=== PATIENT | male | born 1955 | race Caucasian/White ===

== ENCOUNTER 2017-08-31 19:02 | Emergency (ER) | payer MEDICARE ==
[~2017-08-31] VITALS: Ht 188 cm; Wt 86.2 kg
[~2017-08-31 19:02] MED LIST: AMLO10TA82 PO; AMLO2.5T; AMLO5TAB2 PO; ASP81CT PO; ASP81TEC PO; BACL20TA PO; BCL10T PO; CITA10SO PO; CITA10TA70 PO; CLOP75TA PO; CLPD75T PO; CYCL10TA9 PO; DIAZ10TA; GABA300C PO; GBPN300C PO; HTN MED; HYDR-1231 PO; IBP800T PO; IBUP400T22 PO; IBUP800T26 PO; IPRA4AER INH; ISM30TCR PO; ISM60TCR PO; ISOS10TA8 PO; ISOS30TA3 PO; LISI40TA PO; METH4TAB PO; METO25TA PO; METO25TA2 PO; MORP15TA PO; NAPR550T PO; NORT50CA PO; NRT25C PO; OXYC-309 PO; PENI500T PO; PNT40TEC PO; PRAV10TA23 PO; PRD20T PO; PRV20T PO; RAMI10TA PO; RT-COMBINH IH; SULF-222 PO; TRAM50TA2; TRAM50TA2 PO
[2017-08-31] MEDS ORDERED: HYDROcodone/APAP 5 MG/325 MG (LORTAB) TAB PO ONE (19:15)
[2017-08-31] MEDS ORDERED: LIDOCAINE 2% 20 ML (XYLOCAINE) VIAL INJ ONE (19:15)
[2017-08-31] MEDS ORDERED: TRIM/SULFAMETH 160/800 (SEPTRA DS) TAB PO ONE (19:15)
[2017-08-31] MEDS ORDERED: SULF1TAB35 PO (19:23)
--- NOTE | 2017-08-31 19:24 | ED Upper Extremity ---
General Chief Complaint: Upper Extremity Stated Complaint: R ARM/ARMPIT PAIN Source: patient Exam Limitations: no limitations History of Present Illness Date Seen by Provider: Aug 31, 2017 Time Seen by Provider: 19:20 Initial Comments To ER with c/o right armpit pain x 2 days. no fevers or chills. Onset: other (left axilla) Severity: moderate Method of Injury: unknown Allergies and Home Medications Allergies Coded Allergies: NKANo Known Allergies (Unverified Allergy, Mild, 06/03/08) Home Medications Amlodipine Besylate 5 Mg Tab, 5 MG PO DAILY Prescribed by: BRIE CURRAN on 07/31/13 0852 Aspirin 81 Mg Tabec, 81 MG PO DAILY Prescribed by: DEMETRIO ALVAREZ on 07/18/13 0800 Baclofen 10 Mg Tab, 5 MG PO BID, (Reported) TAKES 1/2 (10MG) TABLET TWICE DAILY Citalopram Hydrobromide 10 Mg Tablet, 10 MG PO DAILY, (Reported) Clopidogrel Bisulfate 75 Mg Tab, 75 MG PO DAILY Prescribed by: PAWEL GUILLEN on 07/21/13 1254 Gabapentin 300 Mg Cap, 900 MG PO TID Prescribed by: DEMETRIO ALVAERZ on 07/18/13 0759 Hydrocodone Bit/Acetaminophen 1 Tab Tablet, 1-2 TAB PO Q6H PRN for PAIN Prescribed by: SONIA CRISTOBAL on 09/07/13 1544 Ibuprofen 800 Mg Tablet, 800 MG PO TID PRN for PAIN, (Reported) NEEDED FOR PAIN Ipratropium/Albuterol Sulfate 14.7 Gm Aer.w.adap, 1 PUFF IH QID, (Reported) Isosorbide Mononitrate 60 Mg Tab, 60 MG PO DAILY@0630 Prescribed by: BRIE CURRAN on 07/31/13 0852 Lisinopril 40 Mg Tablet, 40 MG PO DAILY, (Reported) Metoprolol Tartrate 25 Mg Tablet, 12.5 MG PO BID, (Reported) TAKES 1/2 (25MG) TABLET TWICE DAILY Nortriptyline Hcl 25 Mg Cap, 100 MG PO HS Prescribed by: DEMETRIO ALVAREZ on 07/18/13 0800 Pravastatin Sodium 20 Mg Tablet, 20 MG PO HS, (Reported) Prednisone 20 Mg Tab, 40 MG PO DAILY Prescribed by: SONIA CRISTOBAL on 09/07/13 1544 Sulfamethoxazole/Trimethoprim 1 Each Tablet, 1 EACH PO BID Prescribed by: SONIA CRISTOBAL on 08/31/17 192 Trimethoprim/Sulfamethoxazole 1 Ea Tablet, 1 EA PO BID WITH MEALS Prescribed by: PAWEL GUILLEN on 07/21/13 1254 Patient Home Medication List Home Medication List Reviewed: Yes Constitutional: see HPI Respiratory: no symptoms reported Cardiovascular: no symptoms reported Genitourinary: no symptoms reported Musculoskeletal: no symptoms reported Skin: see HPI Psychiatric/Neurological: No Symptoms Reported Past Qkhsjui-Maxeja-Ytiuwh Hx Patient Social History Recent Foreign Travel: No Contact w/Someone Who Travel: No Immunizations Up To Date Tetanus Booster (TDap): More than 5yrs Date of Pneumonia Vaccine: June 20, 2013 Past Medical History COPD Reproductive Disorders: No Hepatitis Degenerate Disk Disease, Arthritis Loss of Vision: Denies Hearing Impairment: Hard of Hearing Skin Anxiety, Violent Behavior, Depression Recent Skin Changes Adverse Reaction/Blood Tranf: No Family Medical History Cancer 19 FATHER (SKIN) 19 MOTHER Cancer of colon 19 MOTHER Kidney disease 19 FATHER (PASSED KIDNEY FAILURE) Physical Exam Vital Signs Vital Signs - First Documented 08/31/17 19:09 Temp 98.6 Pulse 73 Resp 18 B/P (MAP) 120/95 (103) Pulse Ox 97 Capillary Refill : Height, Weight, BMI Height: 6'1" Weight: 178lbs. 3.2oz. [id number]; BMI Method:Stated General Appearance: WD/WN, no apparent distress HEENT: PERRL/EOMI, normal ENT inspection Neck: non-tender, full range of motion Respiratory: no respiratory distress, no accessory muscle use Gastrointestinal: normal bowel sounds, non tender Shoulder: swelling (1cm erythematous fluctuant abscess to right axilla without cellulitis) Elbow/Forearm: normal inspection, non-tender Wrist: Yes normal inspection, Yes non-tender Hand: normal inspection, non-tender Neurologic/Psychiatric: alert, normal mood/affect, oriented x 3 Skin: normal color, warm/dry Procedures/Interventions I&D : Blade Size: 11 I & D Procedure: betadine prep Progress area anesthetized with 1ml of lidocaine without epinephrine. Opened with 11blade scalpel, drainage cultured and sent to lab, covered with gauze. Progress/Results/Core Measures Results/Orders My Orders Departure Impression Primary Impression: Abscess of axilla, right Disposition: 01 HOME, SELF-CARE Condition: Stable Departure-Patient Inst. Decision time for Depature: 19:22 Referrals: NO,LOCAL PHYSICIAN (PCP/Family) Primary Care Physician Patient Instructions: Abscess Incision and Drainage Add. Discharge Instructions: 1. Warm compresses to this area. 2. Antibiotics as directd 3. REturn to ER for any concerns 3. See your doctor later this week All discharge instructions reviewed with patient and/or family. Voiced understanding. Scripts Sulfamethoxazole/Trimethoprim (Bactrim Ds Tablet) 1 Each Tablet 1 EACH PO BID, #14 TAB Prov: SONIA CRISTOBAL APRN 08/31/17 SONIA CRISTOBAL APRN Aug 31, 2017 19:24
[2017-08-31 19:45] VITALS: BP 120/95
--- OUTSIDE RECORDS SUMMARY | 2017-08-31 21:21 | XMS REPORT | Referral Summary ---
Author Author [facility] Organization [facility] Address Unknown Phone Unavailable Care Team Providers Care [employer] Name Role Phone Vanessa Roman PCP Encounter VC Date(s): 10/02/15 - 10/05/15 [facility] [address] [place] [address] [phone] Discharge Disposition: 01-Home or Self Care Attending Physician: Regina Brewster MD Admitting Physician: Cindy Berg MD Vital Signs Most recent to 1 2 oldest [Reference Range]: Temperature Oral 36.9 degC [35.8-37.3 degC] (10/05/15 11:53 AM) Peripheral Pulse 80 bpm Rate [60-100 bpm] (10/05/15 11:53 AM) Heart Rate Monitored 60 bpm [60-100 bpm] (10/03/15 4:57 AM) Respiratory Rate 18 br/min [14-20 br/min] (10/05/15 11:53 AM) Blood Pressure 120/78 mmHg [90-140/60-90 mmHg] (10/05/15 11:53 AM) Mean Arterial 123 mmHg 123 mmHg Pressure, Cuff (10/03/15 3:30 AM) (10/03/15 3:30 AM) SpO2 94 % (10/05/15 11:53 AM) Remote Telemetry Ongoing (10/05/15 9:36 AM) Problem List Condition Effective Dates Status Health Status Informant Acute Active pain(Confirmed) At risk of pressure Active sore(Confirmed) Degenerative disc Active patient disease, lumbar(Confirmed) HTN Active patient (hypertension)(Confi rmed) Neuropathic Active patient pain(Confirmed) Tissue perfusion Active alteration(Confirmed )1 1Problem added automatically by system based on initiation of Tissue Perfusion Cerebral Plan of Care Allergies, Adverse Reactions, Alerts No Known Allergies Medications amLODIPine 10 mg oral tablet 10 mg 1 tabs, Oral, Daily, # 30 tabs, 0 Refill(s) Start Date: 10/05/15 Stop Date: 11/04/15 Status: Ordered Aspirin Enteric Coated 81 mg, Oral, Daily, 0 Refill(s) Start Date: 10/03/15 Status: Ordered atorvastatin 40 mg, Oral, Bedtime (once a day), 0 Refill(s) Start Date: 10/02/15 Status: Ordered carvedilol 6.25 mg oral tablet 3.125 mg 0.5 tabs, Oral, BID, 0 Refill(s) Start Date: 10/02/15 Status: Ordered gabapentin 900 mg, Oral, TID, 0 Refill(s) Start Date: 10/02/15 Status: Ordered Plavix 75 mg, Oral, Daily, 0 Refill(s) Start Date: 10/02/15 Status: Ordered spironolactone 50 mg, Oral, Daily, 0 Refill(s) Start Date: 10/02/15 Status: Ordered Results Hematology Most recent to 1 oldest [Reference Range]: WBC [4.8-10.8 10.8 10*3/uL 10*3/uL] (10/04/15 4:53 AM) RBC [4.60-6.20] 4.69 (10/04/15 4:53 AM) Hgb [14.0-18.0 14.1 gm/dL gm/dL] (10/04/15 4:53 AM) Hct [42.0-52.0 %] 41.9 % *LOW* (10/04/15 4:53 AM) MCV [82.0-99.0 fL] 89.3 fL (10/04/15 4:53 AM) MCH [27.0-32.0 pg] 30.1 pg (10/04/15 4:53 AM) MCHC [32.0-36.0 33.7 gm/dL gm/dL] (10/04/15 4:53 AM) RDW [11.5-14.5 %] 13.4 % (10/04/15 4:53 AM) Platelet [150-400 185 10*3/uL 10*3/uL] (10/04/15 4:53 AM) MPV [9.4-12.3 fL] 11.0 fL (10/04/15 4:53 AM) Immature 0.2 % Granulocytes (10/04/15 4:53 AM) [0.0-1.0 %] Neutrophils [51-75 57 % %] (10/04/15 4:53 AM) Lymphocytes [20-46 31 % %] (10/04/15 4:53 AM) Monocytes [4-11 %] 9 % (10/04/15 4:53 AM) Eosinophils [0-4 %] 3 % (10/04/15 4:53 AM) Basophils [0-2 %] 1 % (10/04/15 4:53 AM) Neutro Absolute 6.14 10*3 [1.90-7.00 10*3] (10/04/15 4:53 AM) Lymph Absolute 3.33 10*3 [0.80-3.30 10*3] *HI* (10/04/15 4:53 AM) Tripp Absolute 0.93 10*3 [0.30-1.00 10*3] (10/04/15 4:53 AM) Eos Absolute 0.31 10*3 [0.00-0.50 10*3] (10/04/15 4:53 AM) Baso Absolute 0.07 10*3 [0.00-0.20 10*3] (10/04/15 4:53 AM) Nucleated RBC 0.0 /100 WBC Automated [0 /100 (10/04/15 4:53 AM) WBC] Chemistry Most recent to 1 oldest [Reference Range]: Sodium Lvl [136-144 139 mEq/L mEq/L] (10/04/15 4:53 AM) Potassium Lvl 3.3 mEq/L [3.6-5.1 mEq/L] *LOW* (10/04/15 4:53 AM) Chloride [99-109 106 mEq/L mEq/L] (10/04/15 4:53 AM) CO2 [22-32 mEq/L] 25 mEq/L (10/04/15 4:53 AM) AGAP [3-20] 8 (10/04/15 4:53 AM) BUN [4-20 mg/dL] 13 mg/dL (10/04/15 4:53 AM) Glucose Lvl [70-100 106 mg/dL mg/dL] *HI* (10/04/15 4:53 AM) Creatinine Lvl 0.93 mg/dL [0.64-1.27 mg/dL] (10/04/15 4:53 AM) eGFR [>60] >60 1 (10/04/15 4:53 AM) Calcium Lvl 9.1 mg/dL [8.6-10.0 mg/dL] (10/04/15 4:53 AM) Albumin Lvl [3.5-4.8 3.3 gm/dL gm/dL] *LOW* (10/02/15 10:27 PM) Total Protein 6.2 gm/dL [6.1-7.9 gm/dL] (10/02/15 10:27 PM) Globulin [1.9-4.3 2.9 gm/dL gm/dL] (10/02/15 10:27 PM) ALT [17-63 U/L] 19 U/L (10/02/15 10:27 PM) AST [15-41 U/L] 18 U/L (10/02/15 10:27 PM) Alk Phos [26-104 64 U/L U/L] (10/02/15 10:27 PM) Bili Total [0.2-1.2 0.7 mg/dL 2 mg/dL] (10/02/15 10:27 PM) Magnesium Lvl 1.9 mg/dL [1.8-2.5 mg/dL] (10/04/15 4:53 AM) Phosphorus [2.4-4.7 3.5 mg/dL 3 mg/dL] (10/04/15 4:53 AM) Total CK [49-397 128 U/L U/L] (10/02/15 10:27 PM) Troponin [<0.06 <0.05 ng/mL ng/mL] (10/02/15 10:27 PM) Chol [0-200 mg/dL] 103 mg/dL (10/04/15 4:53 AM) Trig [0-150 mg/dL] 115 mg/dL (10/04/15 4:53 AM) HDL [>40 mg/dL] 36 mg/dL *ABN* (10/04/15 4:53 AM) LDL [0-100 mg/dL] 44 mg/dL (10/04/15 4:53 AM) VLDL Cholesterol 23 mg/dL [0-30 mg/dL] (10/04/15 4:53 AM) Cardiac Risk 2.9 [0.0-5.7] (10/04/15 4:53 AM) 1Result Comment: Multiply eGFR results by 1.21 for race. 2Result Comment: Naproxen, specifically the metabolite O-desmethylnaproxen, may cause spurious elevation in Total Bilirubin levels. 3Result Comment: High dosages of liposomal Amphotericin B (AmBisome) therapy or other drug preparations that use a liposomal envelope to facilitate drug delivery may cause falsely elevated results for phosphorus. Toxicology Most recent to 1 oldest [Reference Range]: U Amphetamine Scrn Positive *ABN* (10/02/15 10:33 PM) U Cocaine Scrn Negative (10/02/15 10:33 PM) U Cannab Scrn Positive *ABN* (10/02/15 10:33 PM) U Opiate Scrn Negative (10/02/15 10:33 PM) U PCP Scrn Negative (10/02/15 10:33 PM) U Benzodiazepine Negative Scrn (10/02/15 10:33 PM) U Barbiturate Scrn Negative (10/02/15 10:33 PM) Methadone Lvl Negative (10/02/15 10:33 PM) Tricyclics Not Detected 1 (10/02/15 10:33 PM) 1Result Comment: Cut-off concentrations: Amphetamines: 1000 ng/mL Cocaine: 300 ng/mL Cannabinoid: 50 ng/mL Opiate: 300 ng/mL Phencyclidine (PCP): 25 ng/mL Benzodiazepine: 200 ng/mL Barbiturate: 200 ng/mL Methadone: 300 ng/mL Tricyclic: 300 ng/mL The urine drug screen assays are qualitative screens. A more specific GC/MS method must be performed to obtain a confirmed analytical result. Unconfirmed screening results must not be used for non-medical purposes(e.g. employment or legal testing) Urinalysis Most recent to 1 oldest [Reference Range]: UA Color Lindy *ABN* (10/02/15 10:27 PM) UA Appear Cloudy *ABN* (10/02/15 10:27 PM) UA pH [5.0-8.0] 7.0 (10/02/15 10:27 PM) UA Leuk Est Negative [Negative] (10/02/15 10:27 PM) UA Nitrite Negative [Negative] (10/02/15 10:27 PM) UA Protein Negative [Negative] (10/02/15 10:27 PM) UA Glucose Negative [Negative] (10/02/15 10:27 PM) UA Ketones Negative [Negative] (10/02/15 10:27 PM) UA Urobilinogen >=4.0 mg/dL [<1.0 mg/dL] (10/02/15 10:27 PM) UA Bili [Negative] Positive *ABN* (10/02/15 10:27 PM) UA Blood [Negative] Pos 1+ *ABN* (10/02/15 10:27 PM) UA Spec Grav 1.030 [1.003-1.030] (10/02/15 10:27 PM) Type Clean Catch (10/02/15 10:27 PM) UA WBC [0-4] 0-2 (10/02/15 10:27 PM) UA RBC [0-2] 5-10 *ABN* (10/02/15 10:27 PM) Crystals Amorphous (10/02/15 10:27 PM) UA Mucous Present (10/02/15 10:27 PM) Immunizations No data available for this section Procedures Procedure Date Related Diagnosis Body Site Appendectomy Neck repair Stent placement Social History Social History Type Response Smoking Status Current every day smoker; Type: Cigarettes Assessment and Plan No data available for this section
--- OUTSIDE RECORDS SUMMARY | 2017-08-31 21:22 | XMS REPORT | Continuity of Care Document ---
Author Author [facility] Organization [facility] Address Unknown Phone Unavailable Allergies Active Description Code Type Severity Reaction Onset Reported/Identified Relationship to Patient Clinical Status Yes NO KNOWN DRUG ALLERGIES UNKNOWN NO KNOWN DRUG ALLERG Yes NKANo Known Allergies NKA Miscellaneous Allergy Mild N/A 06/03/2008 Yes No Known Allergies NKMA N/A N/A 10/02/2015 Medications Medication Packaging Start Date Stop Date Route Dosage Sig spironolactone(spironolactone) Oral 50 mg 50 mg, Oral, Daily, 0 Refill(s) gabapentin(gabapentin) 2015 Oral 900 mg 900 mg, Oral, TID, 0 Refill(s) carvedilol(carvedilol 6.25 mg oral tablet) 0.5 tabs 10/02/2015 Oral 3.125 mg 3.125 mg=0.5 tabs, Oral, BID, 0 Refill(s) atorvastatin(atorvastatin) 2015 Oral 40 mg 40 mg , Oral, Bedtime (once a day), 0 Refill(s) clopidogrel(Plavix) 10/02/2015 Oral 75 mg 75 mg, Oral , Daily, 0 Refill(s) Sodium Chloride 0.9%(Sodium Chloride 0.9% Bolus) 1,000 mL 10/03/2015 10/03/2015 Bolus IV 1,000 mL, Bolus IV, Once ondansetron(Zofran) 2 mL 201510/05/2015 IV Push 4 mg 4 mg=2 mL, IV Push, q6hr, PRN: Nausea glucagon(glucagon) 1 mL 10/03/2015 10/05/2015 IntraMuscular 1 mg 1 mg=1 mL, IntraMuscular, As Indicated, PRN: Hypoglycemia/Low Blood Sugar Sodium Chloride 0.9%(sodium chloride 0.9% 1,000 mL) 1,000 mL 10/03/2015 10/04/2015 IV 80 mL/hr, IV Dextrose 50% in Water(Dextrose 50% in Water Injection) 25 mL 10/03/2015 10/05/2015 IV Push 12.5 g 12.5 g=25 mL, IV Push, q15min, PRN: Hypoglycemia/Low Blood Sugar Dextrose 10% in Water(Dextrose 10% in Water 250 mL) 250 mL 10/03/2015 10/05/2015 IV 50 mL/hr, IV acetaminophen(acetaminophen) 2 tabs 10/03/2015 10/05/2015 Oral 650 mg 650 mg=2 tabs, Oral, q4hr, PRN: Other (See Comment) docusate-senna(Senokot S 50 mg-8.6 mg oral tablet) 1 tabs 10/03/2015 10/05/2015 Oral 1 tabs, Oral, Daily, PRN: Constipation enoxaparin(Lovenox) 0.4 mL 201510/05/2015 SubCutaneous 40 mg 40 mg=0.4 mL, SubCutaneous, Daily atorvastatin(Lipitor) 1 tabs 201510/05/2015 Oral 80 mg 80 mg=1 tabs, Oral, Bedtime (once a day) aspirin(aspirin) 1 tabs 10/03/2015 10/05/2015 Oral 325 mg 325 mg=1 tabs, Oral, Daily folic acid(folic acid) 1 tabs 10/0210/05/2015 Oral 1 mg 1 mg=1 tabs, Oral, Daily thiamine(thiamine) 1 mL 10/03/2015 10/05/2015 IV Push 100 mg 100 mg=1 mL, IV Push, Daily carvedilol(carvedilol) 1 tabs 10/0210/05/2015 Oral 3.125 mg 3.125 mg=1 tabs, Oral, BIDWM clopidogrel(Plavix) 1 tabs 201510/05/2015 Oral 75 mg 75 mg=1 tabs, Oral, Daily amLODIPine(amLODIPine) 1 tabs 10/0310/05/2015 Oral 10 mg 10 mg=1 tabs, Oral, Daily hydrALAZINE(hydrALAZINE) 1 tabs 10/04/2015 Oral 10 mg 10 mg=1 tabs, Oral, q4hr (scheduled) hydrALAZINE(hydrALAZINE) 0.5 mL 10/05/2015 IV Push 10 mg 10 mg=0.5 mL, IV Push, q4hr, PRN: Hypertension/High Blood Pressure potassium chloride(potassium chloride 20 mEq oral tablet, extended release) 2 tabs 10/04/20152015 Oral 40 mEq 40 mEq=2 tabs, Oral, QID spironolactone(spironolactone) 2 tabs 10/04/2015 10/05/2015 Oral 50 mg 50 mg=2 tabs, Oral, Bedtime (once a day) gabapentin(gabapentin) 3 caps 10/0310/05/2015 Oral 900 mg 900 mg=3 caps, Oral, TID nicotine(nicotine 21 mg/24 hr transdermal film, extended release) 1 patches 10/04/2015 10/05/2015 TransDermal 1 patches, TransDermal, Daily, PRN: Agitation amLODIPine(amLODIPine 10 mg oral tablet) 1 tabs 10/05/2015 11/04/2015 Oral 10 mg 10 mg=1 tabs, Oral, Daily, for 30 days, 30 tabs, 0 Refill(s) CLINDAMYCIN CAP 150 MG (CLEOCIN) MG 06/20/2017 06/20/2017 [id number]&[id number] Problems Date Dx Coded Attending Type Code Diagnosis Diagnosed By 06/25/2009 Ot V58.32 11/26/2010 Ot 724.2 11/26/2010 Ot 724.3 11/26/2010 Ot V45.89 07/27/2012 SAMARA BARRAGAN FACC, JUANITA FACP CCDS Ot 070.70 UNSPECIFIED VIRAL HEPATITIS C WITHOUT HE 07/27/2012 SAMARA BARRAGAN FACC, JUANITA FACP CCDS Ot 305.03 ALCOHOL ABUSE-IN REMISS 07/27/2012 JUANITA PASCUAL MD, FACC FACP CCDS Ot 305.1 TOBACCO USE DISORDER 07/27/2012 SAMARA BARRAGAN FACC, JUANITA FACP CCDS Ot 401.9 HYPERTENSION NOS 07/27/2012 SAMARA BARRAGAN FACC, JUANITA FACP CCDS Ot 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,IN 07/27/2012 JUANITA PASCUAL MD, FACC FACP CCDS Ot 414.01 CORONARY ATHEROSCLEROSIS OF [place] CORON 07/27/2012 JUANITA PASCUAL MD, FACC FACP CCDS Ot V58.69 OTH MED,LT,CURRENT USE 07/28/2012 HAILY EUGENE MD Ot 998.12 HEMATOMA COMPLIC A PROC 01/29/2013 TRISTAN QUICK DO Yolanda Ot 719.45 JOINT PAIN-PELVIS 07/18/2013 DEMETRIO ALVAREZ MD Ot 070.70 UNSPECIFIED VIRAL HEPATITIS C WITHOUT HE 07/18/2013 DEMETRIO ALVAREZ MD Ot 272.4 HYPERLIPIDEMIA NEC/NOS 07/18/2013 DEMETRIO ALVAREZ MD Ot 305.03 ALCOHOL ABUSE-IN REMISS 07/18/2013 DEMETRIO ALVAREZ MD Ot 305.1 TOBACCO USE DISORDER 07/18/2013 DEMETRIO ALVAREZ MD Ot 401.9 HYPERTENSION NOS 07/18/2013 DEMETRIO ALVAREZ MD Ot 411.1 INTERMED CORONARY SYND 07/18/2013 DEMETRIO ALVAREZ MD Ot 414.01 CORONARY ATHEROSCLEROSIS OF [place] CORON 07/18/2013 DEMETRIO ALVAREZ MD Ot V45.82 PERCUTANEOUS TRANSLUM CORON ANGIOPLASTY 07/18/2013 DEMETRIO ALVAREZ MD Ot V58.63 LONG-TERM(CURRENT)USE OF ANTIPLATELET/AN 07/18/2013 DEMETRIO ALVAREZ MD Ot V58.69 OT MED,LT,CURRENT USE 07/21/2013 SAMARA BARRAGAN FACC, JUANITA URRUTIAP CCDS Ot 070.70 UNSPECIFIED VIRAL HEPATITIS C WITHOUT HE 07/21/2013 SAMARA BARRAGAN FACC, JUANITA FACP CCDS Ot 272.0 PURE HYPERCHOLESTEROLEM 07/21/2013 JUANITA PASCUAL MD, FACC FACP CCDS Ot 272.4 HYPERLIPIDEMIA NEC/NOS 07/21/2013 SAMARA BARRAGAN FACC, JUANITA FACP CCDS Ot 288.60 LEUKOCYTOSIS, UNSPECIFIED 07/21/2013 SAMARA BARRAGAN FACC, ALI FACP CCDS Ot 305.1 TOBACCO USE DISORDER 07/21/2013 JUANITA PASCUAL MD, FACC FACP CCDS Ot 355.9 MONONEURITIS NOS 07/21/2013 SAMARA BARRAGAN FACC, JUANITA FACP CCDS Ot 401.9 HYPERTENSION NOS 07/21/2013 SAMARA BARRAGAN FACC, ALI FACP CCDS Ot 412 OLD MYOCARDIAL INFARCT 07/21/2013 SAMARA BARRAGAN FACC, ALI FACP CCDS Ot 414.01 CORONARY ATHEROSCLEROSIS OF [place] CORON 07/21/2013 SAMARA BARRAGAN FACC ALI FACP CCDS Ot 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 NEC 07/21/2013 SAMARA BARRAGAN FACC, JUANITA FACP CCDS Ot 496 CHR AIRWAY OBSTRUCT NEC 07/21/2013 SAMARA BARRAGAN FACC, ALI FACP CCDS Ot 707.9 CHRONIC SKIN ULCER NOS 07/21/2013 SAMARA BARRAGAN FACC, ALI FACP CCDS Ot 716.90 ARTHROPATHY NOS-UNSPEC 07/21/2013 SAMARA BARRAGAN FACC, JUANITA FACP CCDS Ot 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 07/21/2013 SAMARA BARRAGAN FACC, ALI FACP CCDS Ot 786.05 SHORTNESS OF BREATH 07/21/2013 SAMARA BARRAGAN FACC, ALI FACP CCDS Ot 786.09 RESPIRATORY ABNORM NEC 07/21/2013 SAMARA BARRAGAN FACC, ALI FACP CCDS Ot 786.50 CHEST PAIN NOS 07/21/2013 SAMARA BARRAGAN FACC, ALI FACP CCDS Ot 794.31 ABNORM ELECTROCARDIOGRAM 07/21/2013 SAMARA BARRAGAN FACC, ALI FACP CCDS Ot V15.81 HX OF PAST NONCOMPLIANCE 07/21/2013 SAMARA BARRAGAN FACC, JUANITA FACP CCDS Ot V45.82 PERCUTANEOUS TRANSLUM CORON ANGIOPLASTY 07/31/2013 SAMARA BARRAGAN FACC, JUANITA FACP CCDS Ot 070.70 UNSPECIFIED VIRAL HEPATITIS C WITHOUT HE 07/31/2013 SAMARA BARRAGAN FACC, JUANITA FACP CCDS Ot 272.4 HYPERLIPIDEMIA NEC/NOS 07/31/2013 SAMARA BARRAGAN FACC, ALI FACP CCDS Ot 305.03 ALCOHOL ABUSE-IN REMISS 07/31/2013 SAMARA BARRAGAN FACC, ALI FACP CCDS Ot 305.1 TOBACCO USE DISORDER 07/31/2013 SAMARA BARRAGAN FACC, JUANITA FACP CCDS Ot 401.9 HYPERTENSION NOS 07/31/2013 SAMARA BARRAGAN FACC, ALI FACP CCDS Ot 412 OLD MYOCARDIAL INFARCT 07/31/2013 SAMARA BARRAGAN FACC, ALI FACP CCDS Ot 414.01 CORONARY ATHEROSCLEROSIS OF [place] CORON 07/31/2013 SAMARA BARRAGAN FACC, JUANITA FACP CCDS Ot 496 CHR AIRWAY OBSTRUCT NEC 07/31/2013 SAMARA BARRAGAN FACC, ALI FACP CCDS Ot 786.50 CHEST PAIN NOS 07/31/2013 SAMARA BARRAGAN FACC, JUANITA FACP CCDS Ot V15.81 HX OF PAST NONCOMPLIANCE 07/31/2013 SAMARA BARRAGAN FACC, ALI FACP CCDS Ot V45.82 PERCUTANEOUS TRANSLUM CORON ANGIOPLASTY 07/31/2013 SAMARA BARRAGAN [facility], ALI [facility] CCDS Ot V58.69 OTH MED,LT,CURRENT USE 09/07/2013 SONIA FINNEGAN GEAR SHAVER SET UP OPERATOR Ot 724.4 LUMBOSACRAL NEURITIS NOS 09/07/2013 SONIA FINNEGAN GEAR SHAVER SET UP OPERATOR Ot 724.5 BACKACHE NOS 10/03/2015 Regina Brewster Admitting G45.9 10/08/2015 Tannwilly, Regina Final E78.5 Hyperlipidemia, unspecified 10/08/2015 Tannwilly, Regina Final E87.6 Hypokalemia 10/08/2015 Ney Regina Final F12.10 Cannabis abuse, uncomplicated 10/08/2015 Tannwilly, Regina Final F15.10 Other stimulant abuse, uncomplicated 10/08/2015 Ney, Regina Final G81.91 Hemiplegia, unspecified affecting right dominant side 10/08/2015 Ney, Regina Final G92 Toxic encephalopathy 10/08/2015 Ney, Regina Final I10 Essential (primary) hypertension 10/08/2015 Ney, Regina Final I25.10 Atherosclerotic heart disease of [place] coronary artery without angina pect 10/08/2015 Ney Regina Final I65.23 Occlusion and stenosis of bilateral carotid arteries 10/08/2015 Ney Regina Final Z95.5 Presence of coronary angioplasty implant and graft 11/18/2015 Amreina, Phillip D F17.210 Nicotine dependence, cigarettes, uncomplicated Ammar, Phillip D 11/18/2015 Ammar, Phillip D I10 Essential (primary) hypertension Ammar, Phillip D 11/18/2015 Ammar, Phillip D I65.23 Occlusion and stenosis of bilateral carotid arteries Ammar, Phillip D 11/19/2015 Ammar, Phillip D F17.210 Nicotine dependence, cigarettes, uncomplicated Ammar, Phillip D 11/19/2015 Ammar, Phillip D I10 Essential (primary) hypertension Ammar, Phillip D 11/19/2015 Ammar, Phillip D I65.23 Occlusion and stenosis of bilateral carotid arteries Ammar, Phillip D 12/09/2015 W B07.8 Verrucous Papilloma 12/09/2015 W D48.5 Neoplasm of uncertain behavior of skin 12/09/2015 W H11.153 [place], bilateral 12/09/2015 W H25.13 NS Only Cataracts OU 12/13/2015 W D48.5 Neoplasm of uncertain behavior of skin 12/13/2015 W H11.153 [place], bilateral 12/13/2015 W H25.13 NS Only Cataracts OU 12/21/2015 W D48.5 Neoplasm of uncertain behavior of skin 12/21/2015 W H11.153 [place], bilateral 12/21/2015 W H25.13 NS Only Cataracts OU 06/20/2017 Sonia Finnegan 041.12 METHICILLIN RESISTANT STAPHYLOCOCCUS AUREUS INFECTION IN CONDITIONS CLASSIFIED ELSEWHERE AND OF UNSPECIFIED SITE 06/20/2017 Sonia Finnegan 401.0 MALIGNANT ESSENTIAL HYPERTENSION 06/20/2017 Sonia Finnegan 682.3 CELLULITIS AND ABSCESS OF UPPER ARM AND FOREARM 06/20/2017 Sonia Finnegan B95.62 METHICILLIN RESIS STAPH INFCT CAUSING DISEASES CLASSD ELSWHR 06/20/2017 Sonia Finnegan I10 ESSENTIAL (PRIMARY) HYPERTENSION 06/20/2017 Sonia Finnegan L02.414 CUTANEOUS ABSCESS OF LEFT UPPER LIMB Procedures Code Description [place] [address] Duplex scan of extracranial arteries; complete bilateral study AmPhillip huang 11/18/2015 05788 OFFICE/OUTPATIENT VISIT, [facility] 12/09/2015 83016 Duplex scan of extracranial arteries; complete bilateral study Phillip Renee 01/08/2016 Results Test Result Range CBC With Platelet and Differential - 10/02/15 22:27 Absolute Basophils 0.07 10*3 0.00-0.20 Absolute Eosinophils 0.32 10*3 0.00-0.50 Absolute Lymphocytes 3.22 10*3 0.80-3.30 Absolute Monocytes 0.95 10*3 0.30-1.00 Absolute Neutrophils 5.77 10*3 1.90-7.00 Basophils 1 % 0-2 Eosinophils 3 % 0-4 HCT 39.1 % 42.0-52.0 HGB 13.3 g/dL 14.0-18.0 Immature Granulocytes 0.2 % 0.0-1.0 Lymphocytes 31 % 20-46 MCH 30.3 pg 27.0-32.0 MCHC 34.0 g/dL 32.0-36.0 MCV 89.1 fL 82.0-99.0 Monocytes 9 % 4-11 MPV 10.5 fL 9.4-12.3 Neutrophils 56 % 51-75 Nucleated RBC Automated 0.0 /100 WBC Platelet Count 201 K/uL 150-400 RBC 4.39 10*6/uL 4.60-6.20 RDW 13.3 % 11.5-14.5 WBC 10.4 K/uL 4.8-10.8 Urinalysis with reflex microscopic - 10/02/15 22:27 Appearance Cloudy NA Bilirubin Positive NA Negative Blood Pos 1+ NA Negative Color Lindy NA Glucose, Urine Negative Negative Ketones Negative Negative Leukocyte Esterase Negative NA Negative Nitrites Negative NA Negative pH 7.0 NA 5.0-8.0 Protein Negative NA Negative Specific [place] 1.030 NA 1.003-1.030 UA Collection type Clean Catch NA Urobilinogen 4.0 mg/dL <1.0 Urine Microscopic - 10/02/15 22:27 Crystals Amorphous NA RBC, Urine 5 /HPF 0-2 Urine Mucus Present NA WBC, Urine 0 /HPF 0-4 Troponin - 10/02/15 22:27 Troponin <0.05 ng/mL <0.06 Comprehensive Metabolic Panel (CMP) - 10/02/15 22:27 Albumin 3.3 g/dL 3.5-4.8 Alkaline Phosphatase 64 U/L 26-104 ALT (SGPT) 19 U/L 17-63 Anion Gap 7 NA 3-20 AST (SGOT) 18 U/L 15-41 Bilirubin Total 0.7 mg/dL 0.2-1.2 BUN 14 mg/dL 4-20 Calcium 9.3 mg/dL 8.6-10.0 Chloride 107 mEq/L 99-109 CO2 28 mEq/L 22-32 Creatinine 0.96 mg/dL 0.64-1.27 Globulin 2.9 g/dL 1.9-4.3 Glucose 95 mg/dL 70-100 Potassium 3.3 mEq/L 3.6-5.1 Protein 6.2 g/dL 6.1-7.9 Sodium 142 mEq/L 136-144 eGFR - 10/02/15 22:27 eGFR >60 NA >60 Creatine Kinase (CPK) - 10/02/15 22:27 Creatine Kinase (CPK) 128 U/L 49-397 Urine Drug Screen - 10/02/15 22:33 Amph/Meth/Ecstasy Positive NA Barbiturates Negative NA Benzodiazepine Negative NA Cannabinoid Positive NA Cocaine Negative NA EDDP (Methadone met.) Negative NA Opiate Negative NA Phencyclidine (PCP) Negative NA CBC With Platelet and Differential - 10/04/15 04:53 Absolute Basophils 0.07 10*3 0.00-0.20 Absolute Eosinophils 0.31 10*3 0.00-0.50 Absolute Lymphocytes 3.33 10*3 0.80-3.30 Absolute Monocytes 0.93 10*3 0.30-1.00 Absolute Neutrophils 6.14 10*3 1.90-7.00 Basophils 1 % 0-2 Eosinophils 3 % 0-4 HCT 41.9 % 42.0-52.0 HGB 14.1 g/dL 14.0-18.0 Immature Granulocytes 0.2 % 0.0-1.0 Lymphocytes 31 % 20-46 MCH 30.1 pg 27.0-32.0 MCHC 33.7 g/dL 32.0-36.0 MCV 89.3 fL 82.0-99.0 Monocytes 9 % 4-11 MPV 11.0 fL 9.4-12.3 Neutrophils 57 % 51-75 Nucleated RBC Automated 0.0 /100 WBC Platelet Count 185 K/uL 150-400 RBC 4.69 10*6/uL 4.60-6.20 RDW 13.4 % 11.5-14.5 WBC 10.8 K/uL 4.8-10.8 Basic Metabolic Panel (BMP) - 10/04/15 04:53 Anion Gap 8 NA 3-20 BUN 13 mg/dL 4-20 Calcium 9.1 mg/dL 8.6-10.0 Chloride 106 mEq/L 99-109 CO2 25 mEq/L 22-32 Creatinine 0.93 mg/dL 0.64-1.27 Glucose 106 mg/dL 70-100 Potassium 3.3 mEq/L 3.6-5.1 Sodium 139 mEq/L 136-144 Phosphorus - 10/04/15 04:53 Phosphorus 3.5 mg/dL 2.4-4.7 Magnesium - 10/04/15 04:53 Magnesium 1.9 mg/dL 1.8-2.5 Lipid Panel - 10/04/15 04:53 Cardiac Risk 2.9 0.0-5.7 Cholesterol 103 mg/dL 0-200 HDL Cholesterol 36 mg/dL >40 LDL Cholesterol 44 mg/dL 0-100 Triglycerides 115 mg/dL 0-150 VLDL Cholesterol 23 mg/dL 0-30 eGFR - 10/04/15 04:53 eGFR >60 NA >60 Comprehensive Metabolic Panel - 06/20/17 21:47 Albumin 4.0 g/dL 3.6-5.1 ALP 83 U/L 35-130 ALT 13 U/L 6-45 Anion Gap 18 6-14 AST 13 U/L 2-40 BUN 7 mg/dL 5-25 Calcium 9.4 mg/dL 8.3-10.4 Chloride 104 mmol/L 95-114 CO2 20 mEq/L 22-33 Creat 0.79 mg/dL 0.50-1.50 eGFR 100 mL/min/1.73m2 >59 Globulin 3.3 g/dL 2.3-3.5 Glucose 105 mg/dL 70-110 Osmo 284 280-295 Potassium 3.6 mmol/L 3.5-5.3 Sodium 138 mmol/L 134-148 TBil 1.3 mg/dL 0.2-1.2 TP 7.3 g/dL 6.0-8.3 Other Culture - 06/20/17 21:47 PRELIM CULTURE RESULTS Abundant catalase positive, coagulase positive Gram positive. ARIANNE, ID to follow MEDIA PLATED Setup at 22:11 on 06/20/2017 Sensi - 06/20/17 21:47 FINAL CULTURE RESULTS Methicillin Resistant Staphylococcus aureus ( Isolate 1) Ampicillin/Sulbactam >16/8 Ampicillin >8 Amoxicillin/K Clavulanate >4/2 Ceftriaxone 32 Clindamycin <=0.5 Cefoxitin Screen >4 Ciprofloxacin >2 Daptomycin <=0.5 Erythromycin >4 Nitrofurantoin <=32 Gentamicin <=4 Gentamicin Synergy Screen N/R Inducible Clindamycin <=4/0.5 Levofloxacin >4 Linezolid 4 Moxifloxacin 2 Oxacillin >2 Penicillin >8 Rifampin <=1 Streptomycin Synergy N/R Synercid <=0.5 Trimethoprim/ Sulfamethoxazole <=0.5/9.5 Tetracycline <=4 Vancomycin 2 Encounters ACCT No. Visit Date/Time Discharge Status Pt. Type Provider Facility Loc./Unit Complaint [id number] 08/31/2017 19:03:00 08/31/2017 19:45:00 DIS Emergency IFNNEGAN, PETER J GEAR SHAVER SET UP OPERATOR [facility] ER R ARM/ARMPIT PAIN [id number] 09/07/2013 15:34:00 09/07/2013 15:48:00 DIS Emergency SONIA FINNEGAN GEAR SHAVER SET UP OPERATOR [facility] ER BACK PAIN, LEFT HIP PAIN [id number] 07/28/2013 15:20:00 07/31/2013 11:30:00 DIS Outpatient SAMARA BARRAGAN FACC, JUANITA LOW CCDS [facility] CATH CHEST PAIN [id number] 07/20/2013 23:43:00 07/21/2013 13:15:00 DIS Inpatient JUANITA PASCUAL MD, FACC, FACP CCDS [facility] ICU CHEST PAIN [id number] 07/17/2013 12:40:00 07/18/2013 07:57:00 DIS Outpatient DEMETRIO ALVAREZ MD [facility] CATH CHEST PAIN [id number] 01/29/2013 22:29:00 01/29/2013 23:49:00 DIS Emergency TRISTAN QUICK DO K [facility] ER L HIP PAIN [id number] 07/28/2012 12:24:00 07/28/2012 16:25:00 DIS Emergency HAILY EUGENE MD [facility] ER POST OP SWELLING [id number] 07/26/2012 16:40:00 07/27/2012 12:54:00 DIS Outpatient JUANITA PASCUAL MD, FACC, FACP CCDS [facility] CATH CP [id number] 01/14/2014 14:23:00 Document Registration [id number] 01/14/2014 14:23:00 Document Registration [id number] 01/14/2014 14:23:00 Document Registration [id number] 11/25/2010 23:38:00 Document Registration [id number] 06/25/2009 14:16:00 Document Registration [id number] 11/18/2015 10:22:06 11/18/2015 23:59:59 CLS Outpatient Phillip Renee [id number] 06/20/2017 21:31:00 06/20/2017 22:24:00 [id number] 21:48:30 Document Registration [id number] 10/02/2015 21:17:00 10/05/2015 16:19:00 DIS In[facility], Drug abuse [id number] 10/06/2015 05:18:16 Document Registration [id number] 10/05/2015 05:15:29 Document Registration [id number] 10/04/2015 05:16:06 Document Registration [id number] 10/03/2015 05:17:17 Document Registration [id number] 12/09/2015 10:30:00 Document Registration [id number] 10/02/2015 21:17:00 Document Registration
== END 2017-08-31 19:45 | disposition home or self-care (01) ==
LOC: EDUNIT# 19:02 → ER 19:03
DX: L02.411 Cutaneous abscess of right axilla (principal); J44.9 Chronic obstructive pulmonary disease, unspecified; F41.9 Anxiety disorder, unspecified; F32.9 Major depressive disorder, single episode, unspecified; Z79.82 Long term (current) use of aspirin; Z79.02 Long term (current) use of antithrombotics/antiplatelets; Z79.52 Long term (current) use of systemic steroids; Z80.0 Family history of malignant neoplasm of digestive organs; Z80.8 Family history of malignant neoplasm of other organs or systems
CPT/HCPCS: 87070; 87077; 87186; 87205; 99283

== ENCOUNTER 2017-10-27 11:01 | Outpatient (RCR) | payer OTHER ==
[~2017-10-27 11:01] MED LIST changes: +SULF1TAB35 PO
== END 2017-11-09 15:41 | disposition home or self-care (01) ==
PROVIDERS: ATTEND Neurological Surgery
DX: M54.5 Low back pain (principal)

== ENCOUNTER 2017-11-30 16:13 | Emergency (ER) | payer OTHER ==
[~2017-11-30] VITALS: Ht 188 cm; Wt 81.6 kg
--- OUTSIDE RECORDS SUMMARY | 2017-11-30 16:21 | XMS REPORT | Continuity of Care Document ---
Author Author [facility] Organization [facility] Address Unknown Phone Unavailable Allergies Active Description [...] Coded Attending Type Code Diagnosis Diagnosed By 01/20/1540 CRISTI NICKERSON MD Ot M54.5 LOW BACK PAIN 06/25/2009 Ot V58.32 11/26/2010 Ot 724.2 11/26/2010 Ot 724.3 11/26/2010 Ot V45.89 07/27/2012 SAMARA BARRAGAN FACC, JUANITA FACP CCDS Ot 070.70 UNSPECIFIED VIRAL HEPATITIS C WITHOUT HE 07/27/2012 SAMARA BARRAGAN FACC, JUANITA FACP CCDS Ot 305.03 ALCOHOL ABUSE-IN REMISS 07/27/2012 SAMARA BARRAGAN FACC, JUANITA FACP CCDS Ot 305.1 TOBACCO USE DISORDER 07/27/2012 SAMARA BARRAGAN FACC, JUANITA FACP CCDS Ot 401.9 HYPERTENSION NOS 07/27/2012 SAMARA BARRAGAN FACC, JUANITA FACP CCDS Ot 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,IN 07/27/2012 JUANITA PASCUAL MD, FACC FACP CCDS Ot 414.01 CORONARY ATHEROSCLEROSIS OF [place] CORON 07/27/2012 JUANITA PASCUAL MD, FACC FACP CCDS Ot V58.69 OTH MED,LT,CURRENT USE 07/28/2012 HAILY EUGENE MD Ot 998.12 HEMATOMA COMPLIC A PROC 01/29/2013 ABDELRAHMAN JIN TRISTAN Yolanda Ot 719.45 JOINT PAIN-PELVIS 07/18/2013 DEMETRIO [...] ALVAREZ MD Ot 414.01 CORONARY ATHEROSCLEROSIS OF [place] CORON 07/18/2013 DEMETRIO ALVAREZ MD Ot V45.82 PERCUTANEOUS TRANSLUM CORON ANGIOPLASTY 07/18/2013 DEMETRIO ALVAREZ MD Ot V58.63 LONG-TERM(CURRENT)USE OF ANTIPLATELET/AN 07/18/2013 DEMETRIO ALVAREZ MD Ot V58.69 OTH MED,LT,CURRENT USE 07/21/2013 SAMARA BARRAGAN FACC, JUANITA URRUTIAP CCDS Ot 070.70 UNSPECIFIED VIRAL HEPATITIS C WITHOUT HE 07/21/2013 SAMARA BARRAGAN FACC, JUANITA FACP CCDS Ot 272.0 PURE HYPERCHOLESTEROLEM 07/21/2013 SAMARA BARRAGAN FACC, JUANITA FACP CCDS Ot 272.4 HYPERLIPIDEMIA NEC/NOS 07/21/2013 SAMARA BARRAGAN FACC, JUANITA FACP CCDS Ot 288.60 LEUKOCYTOSIS, UNSPECIFIED 07/21/2013 SAMARA BARRAGAN FACC, JUANITA FACP CCDS Ot 305.1 TOBACCO USE DISORDER 07/21/2013 SAMARA BARRAGAN FACC, JUANITA FACP CCDS Ot 355.9 MONONEURITIS NOS 07/21/2013 SAMARA BARRAGAN FACC, JUANITA FACP CCDS Ot 401.9 HYPERTENSION NOS 07/21/2013 SAMARA BARRAGAN FACC, JUANITA FACP CCDS Ot 412 OLD MYOCARDIAL INFARCT 07/21/2013 JUANITA PASCUAL MD, FACC FACP CCDS Ot 414.01 CORONARY ATHEROSCLEROSIS OF [place] CORON 07/21/2013 SAMARA BARRAGAN FACC, JUANITA FACP CCDS Ot 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 NEC [...] CHEST PAIN NOS 07/21/2013 SAMARA BARRAGAN FACC, JUANITA FACP CCDS Ot 794.31 ABNORM ELECTROCARDIOGRAM 07/21/2013 JUANITA PASCUAL MD, FACC FACP CCDS Ot V15.81 HX OF PAST NONCOMPLIANCE 07/21/2013 SAMARA BARRAGAN FACC, JUANITA FACP CCDS Ot V45.82 PERCUTANEOUS TRANSLUM CORON ANGIOPLASTY 07/31/2013 SAMARA BARRAGAN FACC, JUANITA FACP CCDS Ot 070.70 UNSPECIFIED VIRAL HEPATITIS C WITHOUT HE 07/31/2013 SAMARA BARRAGAN FACC, ALI FACP CCDS Ot 272.4 HYPERLIPIDEMIA NEC/NOS 07/31/2013 SAMARA BARRAGAN FACC, ALI FACP CCDS Ot 305.03 ALCOHOL ABUSE-IN REMISS 07/31/2013 SAMARA BARRAGAN FACC, ALI FACP CCDS Ot 305.1 TOBACCO USE DISORDER 07/31/2013 SAMARA BARRAGAN FACC, ALI FACP CCDS Ot 401.9 HYPERTENSION NOS 07/31/2013 SAMARA BARRAGAN FACC, ALI FACP CCDS Ot 412 OLD MYOCARDIAL INFARCT 07/31/2013 SAMARA BARRAGAN FACC, ALI FACP CCDS Ot 414.01 CORONARY ATHEROSCLEROSIS OF [place] CORON 07/31/2013 SAMARA BARRAGAN FACC, ALI FACP CCDS Ot 496 CHR AIRWAY OBSTRUCT NEC 07/31/2013 SAMARA BARRAGAN FACC, ALI FACP CCDS Ot 786.50 CHEST PAIN NOS 07/31/2013 SAMARA BARRAGAN FACC, ALI FACP CCDS Ot V15.81 HX OF PAST NONCOMPLIANCE 07/31/2013 SAMARA BARRAGAN [facility], JUANITA [facility] CCDS Ot V45.82 PERCUTANEOUS TRANSLUM CORON ANGIOPLASTY 07/31/2013 SAMARA BARRAGAN [facility], JUANITA [facility] CCDS Ot V58.69 OTH MED,LT,CURRENT USE 09/07/2013 SONIA FINNEGAN ASSOCIATE PROFESSOR OF KINESIOLOGY Ot 724.4 LUMBOSACRAL NEURITIS NOS 09/07/2013 SONIA FINNEGAN ASSOCIATE PROFESSOR OF KINESIOLOGY Ot 724.5 BACKACHE NOS 10/03/2015 Regina Brewster Admitting G45.9 10/08/2015 Ney, Regina Final E78.5 Hyperlipidemia, unspecified 10/08/2015 Ney, Regina Final E87.6 Hypokalemia 10/08/2015 Ney Regina Final F12.10 Cannabis abuse, uncomplicated 10/08/2015 Ney, Regina Final F15.10 Other stimulant abuse, uncomplicated 10/08/2015 Ney Regina Final G81.91 Hemiplegia, unspecified affecting right dominant side 10/08/2015 Ney, Regina Final G92 Toxic encephalopathy 10/08/2015 Ney, Regina Final I10 Essential (primary) hypertension 10/08/2015 Ney, Regina Final I25.10 Atherosclerotic heart disease of [place] coronary artery without angina pect 10/08/2015 Ney, Regina Final I65.23 Occlusion and stenosis of bilateral carotid arteries 10/08/2015 Ney, Regina Final Z95.5 Presence of coronary angioplasty implant and graft 11/18/2015 Thelma, Phillip D F17.210 Nicotine dependence, cigarettes, uncomplicated [...] L02.414 CUTANEOUS ABSCESS OF LEFT UPPER LIMB 11/03/2017 LIYA BARRAGAN, CRISTI Gee Ot M54.5 LOW BACK PAIN Procedures Code Description [place] [address] Duplex scan of extracranial arteries; complete bilateral study Phillip Renee 11/18/2015 68621 OFFICE/OUTPATIENT VISIT, [facility] 12/09/2015 05315 Duplex scan of extracranial arteries; complete bilateral [...] NA 5.0-8.0 Protein Negative NA Negative Specific [place] 1.030 NA 1.003-1.030 UA Collection type Clean [...] Trimethoprim/ Sulfamethoxazole <=0.5/9.5 Tetracycline <=4 Vancomycin 2 Gram stain microscopy - 08/31/17 19:30 GRAM STAIN RESULT FEW GRAM POSITIVE COCCI NRG Bacteria identification in wound by culture - 08/31/17 19:30 Bacteria identification in wound by culture [id number] NRG FREE TEXT EXTERNAL SENSITIVITY REPORTED 09/02 9:15 NRG QUANTITY OF GROWTH Abundant Growth NRG CALL POSITIVES (F1 HELP) CALLED TO ER AND PRINTED 09/02 9:15 BY Serge DUNCAN NRG Bacterial susceptibility panel - 08/31/17 19:30 Oxacillin susceptibility test by minimum inhibitory concentration > = NRG Gentamicin susceptibility test by minimum inhibitory concentration < = NRG Clindamycin susceptibility test by minimum inhibitory concentration <= NRG Erythromycin susceptibility test by minimum inhibitory concentration >= NRG Trimethoprim/sulfamethoxazole susceptibility test by minimum inhibitoryconcentration S NRG Vancomycin susceptibility test by minimum inhibitory concentration < = NRG Levofloxacin susceptibility test by minimum inhibitory concentration 4 NRG Rifampin susceptibility test by minimum inhibitory concentration <= NRG Tetracycline susceptibility test by minimum inhibitory concentration <= NRG Ciprofloxacin susceptibility test by minimum inhibitory concentration R NRG Encounters ACCT No. Visit Date/Time Discharge Status Pt. Type Provider Facility Loc./Unit Complaint [id number] 10/27/2017 11:01:00 11/09/2017 15:41:00 DIS Outpatient CRISTI NICKERSON MD [facility] REHAB LOW BACK PAIN [id number] 08/31/2017 19:03:00 08/31/2017 19:45:00 DIS Emergency SONIA FINNEGAN APRN [facility] ER R ARM/ARMPIT PAIN [id number] 09/07/2013 15:34:00 09/07/2013 15:48:00 DIS Emergency SONIA FINNEGAN APRN [facility] ER BACK PAIN, LEFT HIP PAIN [id number] 07/28/2013 15:20:00 07/31/2013 11:30:00 DIS Outpatient JUANITA PASCUAL MD, FACC, FACP CCDS [facility] CATH CHEST PAIN [id number] 07/20/2013 23:43:00 07/21/2013 13:15:00 DIS Inpatient JUANITA PASCUAL MD, FACC, FACP CCDS [facility] ICU CHEST PAIN [id number] 07/17/2013 12:40:00 07/18/2013 07:57:00 DIS Outpatient ANTONIO BARRAGAN, DEMETRIO Benavides [facility] CATH CHEST PAIN [id number] 01/29/2013 22:29:00 01/29/2013 23:49:00 DIS Emergency TRISTAN QUICK DO [facility] ER L HIP PAIN [id number] 07/28/2012 12:24:00 07/28/2012 16:25:00 DIS Emergency VALORIE BARRAGAN, HAILY Guerrero [facility] ER POST OP SWELLING [id number] 07/26/2012 16:40:00 07/27/2012 12:54:00 DIS Outpatient SAMARA BARRAGAN FACC, JUANITA LOW CCDS [facility] CATH CP [id number] 01/14/2014 14:23:00 Document Registration [id number] 01/14/2014 14:23:00 Document Registration [id number] 01/14/2014 14:23:00 Document Registration [id number] 11/25/2010 23:38:00 Document Registration [id number] 06/25/2009 14:16:00 Document Registration [id number] 11/18/2015 10:22:06 11/18/2015 23:59:59 CLS Outpatient Phillip Renee [id number] 06/20/2017 21:31:00 06/20/2017 22:24:00 DIS Outpatient [facility] ER [id number] 06/20/2017 21:48:30 Document Registration [id number] 10/02/2015 21:17:00 10/05/2015 16:19:00 DIS Inpatient Regina Brewster [facility] [place] VCHF F7SE TIA, Drug abuse [id number] 10/06/2015 05:18:16 Document Registration [id number] 10/05/2015 05:15:29 Document Registration [id number] 10/04/2015 05:16:06 Document Registration [id number] 10/03/2015 05:17:17 Document Registration [id number] 12/09/2015 10:30:00 Document Registration [id number] 10/02/2015 21:17:00 Document Registration
[2017-11-30 16:40] VITALS: BP_SYST 107; BP_SYST 109; BP_SYST 124; BP_DIAS 66; BP_DIAS 68; BP_DIAS 75
[2017-11-30 16:56] LABS: BASOPHILS % (AUTO) 0 % (0-10); EOSINOPHILS # (AUTO) 0.4 10^3/uL (0.0-0.3); EOSINOPHILS % (AUTO) 4 % (0-10); HEMATOCRIT 39 % (40-54); HEMOGLOBIN 13.2 G/DL (13.3-17.7); LYMPHOCYTES # (AUTO) 2.7 X 10^3 (1.0-4.0); LYMPHOCYTES % (AUTO) 25 % (12-44); MEAN CORPUSCULAR HEMOGLOBIN 30 PG (25-34); MEAN CORPUSCULAR HGB CONC 34 G/DL (32-36); MEAN CORPUSCULAR VOLUME 89 FL (80-99); MONOCYTES # (AUTO) 1.1 X 10^3 (0.0-1.0); MONOCYTES % (AUTO) 10 % (0-12); NEUTROPHILS # (AUTO) 6.8 X 10^3 (1.8-7.8); NEUTROPHILS % (AUTO) 62 % (42-75); PLATELET COUNT 232 10^3/uL (130-400); RED BLOOD COUNT 4.43 10^6/uL (4.35-5.85); RED CELL DISTRIBUTION WIDTH 14.9 % (10.0-14.5)
--- NOTE | 2017-11-30 16:59 | ED Neurological Problem ---
General Chief Complaint: Dizziness/Syncope Stated Complaint: DIZZINESS/HEAD AND NECK PRESSURE/L EYE BLURRY VISI Nursing Triage Note: PT CO OF DIZZINESS FOR APPROX 3 WEEKS, BLURRY VISION SINCE YESTERDAY, PRESSURE ON NECK BILATERALLY POINTING TO SCARS FROM PREVIOUS SURGERIES. DENIES PAIN AT THIS X Nursing Sepsis Screen: No Definite Risk Source: patient Exam Limitations: no limitations (NADINE WHEAT MD) History of Present Illness Date Seen by Provider: Nov 30, 2017 Time Seen by Provider: 16:41 Initial Comments Here with report of intermittent blurry vision and feeling pressure in the neck bilaterally for the last 3 weeks. States that he'll sometimes stand up and then have to go to his knees because of this feeling. Does have previous history of bilateral carotid endarterectomy and they're currently watch and the left one as it is apparently clogging backup. [facility] [place] and his hospital that he would be admitted to is typically in [place]. Reports taking his meds as directed but is unsure exactly what they are. He does remember that he is taking Plavix and aspirin. Denies any recent head injury. Timing/Duration: episodic, waxing and waning, other (3 weeks) Severity: moderate Associated Symptoms: No confusion, No fever/chills, No loss of consciousness, No nausea/vomiting; paresthesia (very mild left-sided); No slurred speech; weakness (intermittent) (NADINE WHEAT MD) Allergies and Home Medications Allergies Coded Allergies: NKANo Known Allergies (Unverified Allergy, Mild, 06/03/08) Home Medications Amlodipine Besylate 5 Mg Tab, 5 MG PO DAILY Prescribed by: BRIE CURRAN on 07/31/13 0852 Aspirin 81 Mg Tabec, 81 MG PO DAILY Prescribed by: DEMETRIO ALVAREZ on 07/18/13 0800 Baclofen 10 Mg Tab, 5 MG PO BID, (Reported) TAKES 1/2 (10MG) TABLET TWICE DAILY Citalopram Hydrobromide 10 Mg Tablet, 10 MG PO DAILY, (Reported) Clopidogrel Bisulfate 75 Mg Tab, 75 MG PO DAILY Prescribed by: PAWEL GUILLEN on 07/21/13 1254 Gabapentin 300 Mg Cap, 900 MG PO TID Prescribed by: DEMETRIO ALVAREZ on 07/18/13 0919 Hydrocodone Bit/Acetaminophen 1 Tab Tablet, 1-2 TAB PO Q6H PRN for PAIN Prescribed by: SONIA CRISTOBAL on 09/07/13 1544 Ibuprofen 800 Mg Tablet, 800 MG PO TID PRN for PAIN, (Reported) NEEDED FOR PAIN Ipratropium/Albuterol Sulfate 14.7 Gm Aer.w.adap, 1 PUFF IH QID, (Reported) Isosorbide Mononitrate 60 Mg Tab, 60 MG PO DAILY@0630 Prescribed by: BRIE CURRAN on 07/31/13 0852 Lisinopril 40 Mg Tablet, 40 MG PO DAILY, (Reported) Metoprolol Tartrate 25 Mg Tablet, 12.5 MG PO BID, (Reported) TAKES 1/2 (25MG) TABLET TWICE DAILY Nortriptyline Hcl 25 Mg Cap, 100 MG PO HS Prescribed by: DEMETRIO ALVAREZ on 07/18/13 0800 Pravastatin Sodium 20 Mg Tablet, 20 MG PO HS, (Reported) Patient Home Medication List Home Medication List Reviewed: Yes (NADINE WHEAT MD) Review of Systems Review of Systems Constitutional: see HPI; No chills, No fever Eyes: No Symptoms Reported, Blurred Vision; Denies Pain (intermittent) Ears, Nose, Mouth, Throat: no symptoms reported Respiratory: no symptoms reported Cardiovascular: see HPI; No edema; syncope (near syncope) Gastrointestinal: No abdominal pain, No nausea, No vomiting Genitourinary: no symptoms reported Musculoskeletal: no symptoms reported (NADINE WHEAT MD) All Other Systems Reviewed Negative Unless Noted: Yes (NADINE WHEAT MD) Past Tkvswfe-Wipozp-Pdtgwe Hx Past Med/Social Hx: Reviewed Nursing Past Med/Soc Hx (NADINE WHEAT MD) Patient Social History Alcohol Use: Denies Use Recreational Drug Use: Yes (tobacco) Smoking Status: Current Everyday Smoker Type Used: Cigarettes 2nd Hand Smoke Exposure: Yes Recent Foreign Travel: No Contact w/Someone Who Travel: No Recent Infectious Disease Expo: No Recent Hopitalizations: No Physical Abuse: No Sexual Abuse: No (NADINE WHEAT MD) Immunizations Up To Date Tetanus Booster (TDap): More than 5yrs Date of Pneumonia Vaccine: June 20, 2013 (NADINE WHEAT MD) Past Medical History Surgeries: Yes (EYES, ) Angioplasty, Appendectomy, Orthopedic Respiratory: Yes COPD Cardiac: Yes (BILATERAL CAROTID ENDARTERECTOMY) Heart Attack Neurological: Yes Reproductive Disorders: No Gastrointestinal: Yes Hepatitis Musculoskeletal: Yes Degenerate Disk Disease, Arthritis Endocrine: No Loss of Vision: Denies Hearing Impairment: Hard of Hearing Cancer: Yes Skin Psychosocial: Yes Anxiety, Violent Behavior, Depression Integumentary: Yes (skin cancer June 26, [place]) Recent Skin Changes Blood Disorders: Yes (HEP C ) Adverse Reaction/Blood Tranf: No (NADINE WHEAT MD) Family Medical History Reviewed Nursing Family Hx (NADINE WHEAT MD) Cancer 19 FATHER (SKIN) 19 MOTHER Cancer of colon 19 MOTHER Kidney disease 19 FATHER (PASSED KIDNEY FAILURE) Physical Exam Vital Signs Vital Signs - First Documented 11/30/17 16:20 Temp 98.4 Pulse 61 Resp 18 B/P (MAP) 133/75 (94) Pulse Ox 99 (RIVERA LAZO MD) Vital Signs Capillary Refill : Less Than 3 Seconds (NADINE WHEAT MD) Height, Weight, BMI Height: 6'2.00" Weight: 180lbs. 0oz. 81.272366vh; BMI Method:Stated General Appearance: WD/WN, no apparent distress HEENT: PERRL/EOMI, pharynx normal Neck: full range of motion, supple Respiratory: lungs clear, normal breath sounds Cardiovascular: regular rate, rhythm, no murmur Peripheral Pulses: 2+ Dorsalis Pedis (R), 2+ Left Dors-Pedis (L), 2+ Radial Pulses (R), 2+ Radial Pulses (L) Gastrointestinal: non tender, soft Back: normal inspection, no CVA tenderness, no vertebral tenderness Extremities: normal range of motion, non-tender, normal inspection Neurologic/Psychiatric: alert, normal mood/affect, oriented x 3 Crainal Nerves: normal hearing, normal speech, PERRL Coordination/Gait: normal finger to nose, normal gait Motor/Sensory: no motor deficit, sensory deficit (very slight decrease in sensation on the left arm and leg) Skin: normal color, warm/dry (NADINE WHEAT MD) Progress/Results/Core Measures Results/Orders Lab Results Laboratory Tests Test 11/30/17 16:45 11/30/17 16:46 11/30/17 17:05 11/30/17 17:43 Range/Units White Blood Count 11.0 4.3-11.0 10^3/uL Red Blood Count 4.43 4.35-5.85 10^6/uL Hemoglobin 13.2 L 13.3-17.7 G/DL Hematocrit 39 L 40-54 % Mean Corpuscular Volume 89 80-99 FL Mean Corpuscular Hemoglobin 30 25-34 PG Mean Corpuscular Hemoglobin Concent 34 32-36 G/DL Red Cell Distribution Width 14.9 H 10.0-14.5 % Platelet Count 232 130-400 10^3/uL Mean Platelet Volume 11.0 H 7.4-10.4 FL Neutrophils (%) (Auto) 62 42-75 % Lymphocytes (%) (Auto) 25 12-44 % Monocytes (%) (Auto) 10 0-12 % Eosinophils (%) (Auto) 4 0-10 % Basophils (%) (Auto) 0 0-10 % Neutrophils # (Auto) 6.8 1.8-7.8 X 10^3 Lymphocytes # (Auto) 2.7 1.0-4.0 X 10^3 Monocytes # (Auto) 1.1 H 0.0-1.0 X 10^3 Eosinophils # (Auto) 0.4 H 0.0-0.3 10^3/uL Basophils # (Auto) 0.0 0.0-0.1 10^3/uL Glucometer 111 H 70-110 MG/DL Prothrombin Time 12.6 12.2-14.7 SEC INR Comment 1.0 0.8-1.4 Activated Partial Thromboplast Time 27 24-35 SEC D-Dimer 0.69 H 0.00-0.49 UG/ML Sodium Level 139 135-145 MMOL/L Potassium Level 4.2 3.6-5.0 MMOL/L Chloride Level 105 98-107 MMOL/L Carbon Dioxide Level 26 21-32 MMOL/L Anion Gap 8 5-14 MMOL/L Blood Urea Nitrogen 9 7-18 MG/DL Creatinine 0.90 0.60-1.30 MG/DL Estimat Glomerular Filtration Rate > 60 BUN/Creatinine Ratio 10 Glucose Level 84 70-105 MG/DL Calcium Level 9.4 8.5-10.1 MG/DL Corrected Calcium 9.6 8.5-10.1 MG/DL Total Bilirubin 0.4 0.1-1.0 MG/DL Aspartate Amino Transf (AST/SGOT) 14 5-34 U/L Alanine Aminotransferase (ALT/SGPT) 14 0-55 U/L Alkaline Phosphatase 78 40-136 U/L Troponin I < 0.30 <0.30 NG/ML Total Protein 6.5 6.4-8.2 GM/DL Albumin 3.7 3.2-4.5 GM/DL Urine Color YELLOW Urine Clarity CLEAR Urine pH 6 5-9 Urine Specific [place] 1.020 1.016-1.022 Urine Protein NEGATIVE NEGATIVE Urine Glucose (UA) NEGATIVE NEGATIVE Urine Ketones NEGATIVE NEGATIVE Urine Nitrite NEGATIVE NEGATIVE Urine Bilirubin NEGATIVE NEGATIVE Urine Urobilinogen 4 H NORMAL MG/DL Urine Leukocyte Esterase 1+ H NEGATIVE Urine RBC (Auto) NEGATIVE NEGATIVE Urine RBC NONE /HPF Urine WBC 0-2 /HPF Urine Crystals NONE /LPF Urine Bacteria NEGATIVE /HPF Urine Casts NONE /LPF Urine Mucus LARGE H /LPF Urine Culture Indicated NO (RIVERA LAZO MD) Medications Given in ED Current Medications Medications Dose Ordered Sig/Lindsey Route Start Time Stop Time Status Last Admin Dose Admin Iohexol 75 ml ONCE ONCE IV 11/30/17 18:15 11/30/17 18:16 DC 11/30/17 18:03 75 ML Sodium Chloride 250 ml ONCE ONCE IV 11/30/17 18:15 11/30/17 18:16 DC 11/30/17 18:03 80 ML (RIVERA LAZO MD) Vital Signs/I&O 11/30/17 11/30/17 16:20 16:40 Temp 98.4 Pulse 61 58 62 64 Resp 18 B/P (MAP) 133/75 (94) 107/68 (81) 109/75 (86) 124/66 (85) Pulse Ox 99 (RIVERA LAZO MD) Blood Pressure Mean: 94 FSBG Bedside Testing Finger Stick Blood Glucose: 111 Blood Glucose Action Taken: REPORT TO (NADINE WHEAT MD) Progress Progress Note : Progress Note Seen and evaluated. IV, labs, UA, chest x-ray and EKG ordered. CT head ordered. We will get CT angiogram of the head and neck if able. Orthostatic vital signs obtained and do not show any significant findings. See nurse's notes. Stroke scale 1 on the scale due to decreased sensation on the left. Patient is not candidate for TPA due to low stroke scale and really no significant symptoms currently. Also falls out due to length of time and anticoagulant use. Monitor patient. (NADINE WHEAT MD) Progress Note : Time: 19:08 Progress Note Workup was essentially unremarkable. Patient was feeling well at the time of dismissal. CT imaging was reviewed and no acute or pathologic abnormalities were identified. I discussed patient's use of to beta blockers. This may not be necessary and may be contributing to his symptoms. 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 Patient was hypertensive at the time of dismissal but is due for his blood pressure medication shortly. He will take those before bed. See discharge instructions for more discussion. (RIVERA LAZO MD) Initial ECG Impression Date: Nov 30, 2017 Initial ECG Impression Time: 16:46 Initial ECG Rate: 58 Initial ECG Rhythm: Normal Sinus Comment Sinus rhythm with LVH. Normal axis. No evidence of ST elevation [place]. Similar to previous of 28 July 2013. Interpreted by me. (NADINE WHEAT MD) Diagnostic Imaging Diagonstic Imaging: Xray Plain Films/CT/US/NM/MRI: chest Comments [facility] [employer] [facility] [place], [place] NAME: CRISTI KRISHNAMURTHY [facility] REC#: [id number] PT STATUS: REG ER : 1955 PHYSICIAN: NADINE WHEAT MD ADMIT DATE: 11/30/17/ER Draft Date of Exam:11/30/17 CHEST 1 VIEW, AP/PA ONLY INDICATION: Dizziness. COMPARISON: 10/02/2015. TECHNIQUE: Single view of the chest was obtained. FINDINGS: Visualized lungs are clear. Posterior lower lobes are poorly evaluated by portable radiography. No pleural effusion or pneumothorax. Heart is normal in size. Normal pulmonary vascular. IMPRESSION: No acute cardiopulmonary process by portable radiography. Dictated on workstation # [id number] Dict: 11/30/179 Trans: 11/30/17 172 [facility] [id number] Interpreted by: ADRIANA TAYLOR MD Electronically signed by: Diagonstic Imaging: CT Plain Films/CT/US/NM/MRI: head Comments [facility] [employer] [place], [place] NAME: CRISTI KRISHNAMURTHY [facility] REC#: [id number] PT STATUS: REG ER : 1955 PHYSICIAN: NADINE WHEAT MD ADMIT DATE: 11/30/17/ER Draft Date of Exam:11/30/17 CT HEAD WO-R/O STROKE INDICATION: Dizziness. COMPARISON: 10/02/2015. TECHNIQUE: Unenhanced CT imaging of the head was performed. FINDINGS: No hyperdense hemorrhage or space-occupying mass. No hydrocephalus or midline shift. Murphy-white matter differentiation is well preserved. Basilar cisterns are widely patent. No acute skull fracture. Paranasal sinuses are clear. IMPRESSION: No acute intracranial process. Dictated on workstation # [id number] Dict: 11/30/171707 Trans: 11/30/171712 [id number] Interpreted by: ADRIANA TAYLOR MD Electronically signed by: (NADINE WHEAT MD) Diagonstic Imaging: CT Plain Films/CT/US/NM/MRI: other (angiogram head and neck) Comments CT angiogram head and neck viewed by me and report reviewed. See report below: NAME: CRISTI KRISHNAMURTHY [facility] REC#: [id number] PT STATUS: REG ER : 1955 PHYSICIAN: NADINE WHEAT MD ADMIT DATE: 11/30/17/ER Draft Date of Exam:11/30/17 CT ANGIO HEAD/NECK PROCEDURE: CT angiography of the head and CT angiography of the neck with and without contrast. TECHNIQUE: Contiguous noncontrast images were obtained from the skull base through the vertex. After intravenous contrast administration, helical CT angiography of the neck was performed. Source data was reformatted into multiple 2D MIP projections. Delayed post contrast acquisition was also obtained. COMPARISON: Noncontrast CT head performed earlier the same day. FINDINGS: CTA NECK: Aorta: Aortic arch is normal, with standard three vessel branching pattern. Anterior Circulation: The origin of the bilateral common carotid arteries are patent. No stenosis of the common carotid arteries in the neck. No significant stenosis of the internal carotid arteries per NASCET criteria. There have likely been surgical changes from carotid endarterectomy on the left. The cervical segments of the bilateral ICAs are patent. The proximal external carotid arteries are patent and without significant stenosis. Posterior Circulation: Origins of the bilateral vertebral arteries are normal. Vertebral arteries are co-dominant. The proximal extraosseous, intraosseous, and distal extraosseous segments of the vertebral arteries are patent without dissection or stenosis. Non-vascular: No cervical lymphadenopathy. The airway is patent. No evidence of mucosal-based mass lesion in the pharynx. Thyroid is normal. Salivary glands are normal. C5 corpectomy with anterior fusion from C4-C6. Changes with anterior fusion. CTA HEAD: Anterior Circulation: The distal internal carotid arteries are patent. The bilateral M1 and M2 segments of the middle cerebral arteries are patent and without stenosis. The bilateral M3 and M4 segments are symmetric in size and number. The anterior cerebral arteries are patent and without stenosis. Anterior communicating artery is patent. No saccular aneurysm in the anterior circulation. Posterior Circulation: The bilateral intracranial segments of the vertebral arteries are patent. The basilar artery is patent and without stenosis. The posterior cerebral arteries are patent. Bilateral posterior communicating arteries are patent and without aneurysm. No saccular aneurysm in the posterior circulation. The origins of the posterior inferior cerebellar, anterior inferior cerebellar and superior cerebellar arteries are patent. Post Contrast Head: No pathologic enhancement on delayed post-contrast enhancement. IMPRESSION: 1. No intra-cranial major arterial occlusion, significant stenosis or aneurysm. 2. No arterial occlusion or stenosis in the major neck arteries. Dictated on workstation # [id number] Dict: 11/30/171825 Trans: 11/30/171838 [facility] [id number] Interpreted by: ADRIANA TAYLOR MD (RIVERA LAZO MD) Departure Impression Primary Impression: Dizziness Additional Impressions: Neck discomfort Blurry vision Disposition: 01 HOME, SELF-CARE Condition: Stable Departure-Patient Inst. Decision time for Depature: 19:06 (IRVERA LAZO MD) Referrals: YUMIKO HERNANDEZ MD (PCP/Family) Primary Care Physician Patient Instructions: NO INSTRUCTIONS GIVEN Add. Discharge Instructions: Return to the emergency room if symptoms worsen or if you develop new symptoms such as numbness or weakness in the extremities, loss of vision, chest pain, etc. You are taking 2 medications in the beta christie class (carvedilol and metoprolol) please check with your game attendant tomorrow to determine if this is necessary. Producing your beta christie medications may resolve some of your symptoms. Check your blood pressure couple times a day over the next week or two. Please share those blood pressures with your game attendant. Follow-up with a primary care provider soon as possible. Please see an sales and marketing professional about your blurry vision. All discharge instructions reviewed with patient and/or family. Voiced understanding. NADINE WHEAT MD Nov 30, 2017 16:59 RIVERA LAZO MD Nov 30, 2017 18:42
--- NOTE | 2017-11-30 17:14 | Diagnostic Imaging Report ---
INDICATION: Dizziness. COMPARISON: 10/02/2015. TECHNIQUE: Unenhanced CT imaging of the head was performed. FINDINGS: No hyperdense hemorrhage or space-occupying mass. No hydrocephalus or midline shift. Murphy-white matter differentiation is well preserved. Basilar cisterns are widely patent. No acute skull fracture. Paranasal sinuses are clear. IMPRESSION: No acute intracranial process. Dictated by: Dictated on workstation # [id number]
--- NOTE | 2017-11-30 17:23 | Diagnostic Imaging Report ---
INDICATION: Dizziness. COMPARISON: 10/02/2015. TECHNIQUE: Single view of the chest was obtained. FINDINGS: Visualized lungs are clear. Posterior lower lobes are poorly evaluated by portable radiography. No pleural effusion or pneumothorax. Heart is normal in size. Normal pulmonary vascular. IMPRESSION: No acute cardiopulmonary process by portable radiography. Dictated by: Dictated on workstation # [id number]
[2017-11-30 17:29] LABS: FIBRIN DEGRADATION PRODUCTS 0.69 UG/ML (0.00-0.49); PROTHROMBIN TIME PATIENT 12.6 SEC (12.2-14.7)
[2017-11-30 17:34] LABS: ALANINE AMINOTRANSFERASE 14 U/L (0-55); ALBUMIN 3.7 GM/DL (3.2-4.5); ALKALINE PHOSPHATASE 78 U/L (40-136); BILIRUBIN,TOTAL 0.4 MG/DL (0.1-1.0); BUN/CREATININE RATIO 10; CALCIUM 9.4 MG/DL (8.5-10.1); CARBON DIOXIDE 26 MMOL/L (21-32); CHLORIDE 105 MMOL/L (98-107); GFR ESTIMATED > 60; GLUCOSE 84 MG/DL (70-105); POTASSIUM 4.2 MMOL/L (3.6-5.0); SODIUM 139 MMOL/L (135-145); TOTAL PROTEIN 6.5 GM/DL (6.4-8.2)
[2017-11-30 17:53] LABS: BILIRUBIN,URINE NEGATIVE (NEGATIVE); CLARITY,URINE CLEAR; COLOR,URINE YELLOW; GLUCOSE, URINE (UA) NEGATIVE (NEGATIVE); KETONES,URINE NEGATIVE (NEGATIVE); LEUKOCYTE ESTERASE ,URINE 1+ (NEGATIVE); NITRITE,URINE NEGATIVE (NEGATIVE); PH,URINE 6 (5-9); PROTEIN,URINE NEGATIVE (NEGATIVE); UROBILINOGEN,URINE 4 MG/DL (NORMAL)
[2017-11-30 17:59] LABS: BACTERIA,URINE NEGATIVE /HPF; WBC,URINE 0-2 /HPF
[2017-11-30] MEDS ORDERED: IOHEXOL 350 MG/ML 100 ML (OMNIPAQUE 350) VIAL IV ONE (18:15)
[2017-11-30] MEDS ORDERED: NS 250 ML (IVPB) BAG IV ONE (18:15)
--- NOTE | 2017-11-30 18:39 | Diagnostic Imaging Report ---
PROCEDURE: CT angiography of the head and CT angiography of the neck with and without contrast. TECHNIQUE: Contiguous noncontrast images were obtained from the skull base through the vertex. After intravenous contrast administration, helical CT angiography of the neck was performed. Source data was reformatted into multiple 2D MIP projections. Delayed post contrast acquisition was also obtained. COMPARISON: Noncontrast CT head performed earlier the same day. FINDINGS: CTA NECK: Aorta: Aortic arch is normal, with standard three vessel branching pattern. Anterior Circulation: The origin of the bilateral common carotid arteries are patent. No stenosis of the common carotid arteries in the neck. No significant stenosis of the internal carotid arteries per NASCET criteria. There have likely been surgical changes from carotid endarterectomy on the left. The cervical segments of the bilateral ICAs are patent. The proximal external carotid arteries are patent and without significant stenosis. Posterior Circulation: Origins of the bilateral vertebral arteries are normal. Vertebral arteries are co-dominant. The proximal extraosseous, intraosseous, and distal extraosseous segments of the vertebral arteries are patent without dissection or stenosis. Non-vascular: No cervical lymphadenopathy. The airway is patent. No evidence of mucosal-based mass lesion in the pharynx. Thyroid is normal. Salivary glands are normal. C5 corpectomy with anterior fusion from C4-C6. Changes with anterior fusion. CTA HEAD: Anterior Circulation: The distal internal carotid arteries are patent. The bilateral M1 and M2 segments of the middle cerebral arteries are patent and without stenosis. The bilateral M3 and M4 segments are symmetric in size and number. The anterior cerebral arteries are patent and without stenosis. Anterior communicating artery is patent. No saccular aneurysm in the anterior circulation. Posterior Circulation: The bilateral intracranial segments of the vertebral arteries are patent. The basilar artery is patent and without stenosis. The posterior cerebral arteries are patent. Bilateral posterior communicating arteries are patent and without aneurysm. No saccular aneurysm in the posterior circulation. The origins of the posterior inferior cerebellar, anterior inferior cerebellar and superior cerebellar arteries are patent. Post Contrast Head: No pathologic enhancement on delayed post-contrast enhancement. IMPRESSION: 1. No intra-cranial major arterial occlusion, significant stenosis or aneurysm. 2. No arterial occlusion or stenosis in the major neck arteries. Dictated by: Dictated on workstation # [id number]
[2017-11-30 19:16] VITALS: BP 180/86
== END 2017-11-30 19:15 | disposition home or self-care (01) ==
LOC: EDUNIT# 16:13 → ER 16:14
DX: R42 Dizziness and giddiness (principal); M54.2 Cervicalgia; H53.8 Other visual disturbances; J44.9 Chronic obstructive pulmonary disease, unspecified; I25.2 Old myocardial infarction; F41.9 Anxiety disorder, unspecified; F32.9 Major depressive disorder, single episode, unspecified; B19.20 Unspecified viral hepatitis C without hepatic coma; F17.210 Nicotine dependence, cigarettes, uncomplicated; Z90.89 Acquired absence of other organs; Z85.828 Personal history of other malignant neoplasm of skin; Z79.82 Long term (current) use of aspirin; Z80.8 Family history of malignant neoplasm of other organs or systems; Z80.0 Family history of malignant neoplasm of digestive organs; Z79.02 Long term (current) use of antithrombotics/antiplatelets; Z98.890 Other specified postprocedural states
CPT/HCPCS: 36415; 70450; 70496; 70498; 71045; 80053; 81000; 82962; 84484; 85025; 85379; 85610; 85730; 93005; 93041

== ENCOUNTER 2018-03-06 10:37 | Emergency (ER) | payer OTHER ==
[~2018-03-06] VITALS: Ht 188 cm; Wt 86.2 kg
[2018-03-06] MEDS ORDERED: LIDOCAINE 1% INJ 20 ML 20 ML VIAL INJ ONE (11:30)
[2018-03-06] MEDS ORDERED: HYDROcodone/APAP 5 MG/325 MG (LORTAB) TAB PO ONE (11:30)
[2018-03-06] MEDS ORDERED: HYDR-4226 PO (11:32)
[2018-03-06] MEDS ORDERED: SULF1TAB35 PO (11:33)
--- NOTE | 2018-03-06 11:33 | ED Integumentary General ---
General Chief Complaint: Skin/Wound Problems Stated Complaint: ABSCESS UNDER ARM Nursing Triage Note: PT PRESENTS TO ED WITH COMPLAINTS OF L AXILLA PAIN/REDNESS STARTING 3 DAYS AGO. Source: patient Exam Limitations: no limitations History of Present Illness Date Seen by Provider: Mar 06, 2018 Time Seen by Provider: 11:29 Initial Comments To ER with abscess to left axilla for 2-3 days. Very painful. Timing/Duration: getting worse Severity: moderate Location: extremities (left axilla) Associated Symptoms: denies symptoms Allergies and Home Medications Allergies Coded Allergies: NKANo Known Allergies (Unverified Allergy, Mild, 06/03/08) Home Medications Amlodipine Besylate 5 Mg Tab, 5 MG PO DAILY Prescribed by: BRIE CURRAN on 07/31/13 0852 Aspirin 81 Mg Tabec, 81 MG PO DAILY Prescribed by: DEMETRIO ALVAREZ on 07/18/13 0800 Baclofen 10 Mg Tab, 5 MG PO BID, (Reported) TAKES 1/2 (10MG) TABLET TWICE DAILY Citalopram Hydrobromide 10 Mg Tablet, 10 MG PO DAILY, (Reported) Clopidogrel Bisulfate 75 Mg Tab, 75 MG PO DAILY Prescribed by: PAWEL GUILLEN on 07/21/13 1254 Gabapentin 300 Mg Cap, 900 MG PO TID Prescribed by: DEMETRIO ALVAREZ on 07/18/13 0759 Hydrocodone Bit/Acetaminophen 1 Tab Tablet, 1-2 TAB PO Q6H PRN for PAIN Prescribed by: SONIA CRISTOBAL on 09/07/13 1544 Ibuprofen 800 Mg Tablet, 800 MG PO TID PRN for PAIN, (Reported) NEEDED FOR PAIN Ipratropium/Albuterol Sulfate 14.7 Gm Aer.w.adap, 1 PUFF IH QID, (Reported) Isosorbide Mononitrate 60 Mg Tab, 60 MG PO DAILY@0630 Prescribed by: BRIE CURRAN on 07/31/13 0852 Lisinopril 40 Mg Tablet, 40 MG PO DAILY, (Reported) Metoprolol Tartrate 25 Mg Tablet, 12.5 MG PO BID, (Reported) TAKES 1/2 (25MG) TABLET TWICE DAILY Nortriptyline Hcl 25 Mg Cap, 100 MG PO HS Prescribed by: DEMETRIO ALVAREZ on 07/18/13 0800 Pravastatin Sodium 20 Mg Tablet, 20 MG PO HS, (Reported) Patient Home Medication List Home Medication List Reviewed: Yes Review of Systems Review of Systems Constitutional: see HPI EENTM: see HPI Respiratory: no symptoms reported Cardiovascular: no symptoms reported Genitourinary: no symptoms reported Musculoskeletal: no symptoms reported Skin: see HPI Psychiatric/Neurological: No Symptoms Reported Endocrine: No Symptoms Reported Past Jayafjd-Fbmahc-Icxdnd Hx Patient Social History Alcohol Use: Denies Use Recreational Drug Use: Yes (tobacco) Smoking Status: Current Everyday Smoker Type Used: Cigarettes 2nd Hand Smoke Exposure: Yes Recent Foreign Travel: No Contact w/Someone Who Travel: No Recent Infectious Disease Expo: No Recent Hopitalizations: No Immunizations Up To Date Tetanus Booster (TDap): More than 5yrs Date of Pneumonia Vaccine: June 20, 2013 Past Medical History Surgeries: Yes (EYES, back) Angioplasty, Appendectomy, Coronary Stent, Orthopedic Respiratory: Yes COPD Cardiac: Yes (BILATERAL CAROTID ENDARTERECTOMY) Heart Attack Neurological: No Reproductive Disorders: No Genitourinary: No Gastrointestinal: Yes Hepatitis Musculoskeletal: Yes Degenerate Disk Disease, Arthritis Endocrine: No Loss of Vision: Denies Hearing Impairment: Hard of Hearing Cancer: Yes Skin Psychosocial: Yes Anxiety, Violent Behavior, Depression Integumentary: Yes (skin cancer June 26, [facility]) Recent Skin Changes Blood Disorders: Yes (HEP C ) Adverse Reaction/Blood Tranf: No Family Medical History Cancer 19 FATHER (SKIN) 19 MOTHER Cancer of colon 19 MOTHER Kidney disease 19 FATHER (PASSED KIDNEY FAILURE) Physical Exam Vital Signs Vital Signs - First Documented 03/06/18 11:25 Temp 96.0 Pulse 64 Resp 20 B/P (MAP) 183/100 (127) Pulse Ox 99 Capillary Refill : Less Than 3 Seconds General Appearance: WD/WN, no apparent distress HEENT: PERRL/EOMI, normal ENT inspection Neck: non-tender, full range of motion Respiratory: no respiratory distress, no accessory muscle use Gastrointestinal: normal bowel sounds, non tender Neurologic/Psychiatric: alert, normal mood/affect, oriented x 3 Skin: normal color, warm/dry Skin Problem Location: other (left axilla) Skin Problem Character: abscess Progress/Results/Core Measures Results/Orders My Orders Orders - SONIA CRISTOBAL APRN Wound Culture (03/06/18 11:27) Lidocaine 1% Inj 20 Ml (Xylocaine 1% Inj (03/06/18 11:30) Hydrocodone/Apap 5/325 Tablet (Lortab 5 (03/06/18 11:30) Vital Signs/I&O 03/06/18 11:25 Temp 96.0 Pulse 64 Resp 20 B/P (MAP) 183/100 (127) Pulse Ox 99 Blood Pressure Mean: 127 Departure Impression Primary Impression: Abscess Disposition: 01 HOME, SELF-CARE Condition: Stable Departure-Patient Inst. Decision time for Depature: 11:31 Referrals: YUMIKO HERNANDEZ MD (PCP/Family) Primary Care Physician Patient Instructions: Abscess Incision and Drainage (DC) Add. Discharge Instructions: 1. Return to ER for any concenrs 2. Antibiotics as directed. All discharge instructions reviewed with patient and/or family. Voiced understanding. Scripts Sulfamethoxazole/Trimethoprim (Bactrim Ds Tablet) 1 Each Tablet 1 EACH PO BID, #20 TAB Prov: SONIA CRISTOBAL [employer]CREW[employer] 03/06/18 Hydrocodone/Acetaminophen ([place] 5-325 Tablet) 1 Each Tablet 1 EACH PO Q6H PRN for PAIN-MODERATE MDD 10, #14 TAB do not fill unless bactrim is also filled. Prov: SONIA CRISTOBAL [employer] 03/06/18 SONIA CRISTOBAL [employer] Mar 06, 2018 11:33
[2018-03-06 11:45] VITALS: BP 170/98
--- OUTSIDE RECORDS SUMMARY | 2018-03-06 12:54 | XMS REPORT | Continuity of Care Document ---
[...] FACP CCDS Ot 414.01 CORONARY ATHEROSCLEROSIS OF [place] CORON 07/27/2012 JUANITA PASCUAL MD, FACC FACP [...] ALVAREZ MD Ot 414.01 CORONARY ATHEROSCLEROSIS OF [place] CORON 07/18/2013 DEMETRIO ALVAREZ MD Ot V45.82 [...] FACP CCDS Ot 414.01 CORONARY ATHEROSCLEROSIS OF [place] CORON 07/21/2013 SAMARA BARRAGAN FACC, JUANITA FACP [...] FACP CCDS Ot 414.01 CORONARY ATHEROSCLEROSIS OF [place] CORON 07/31/2013 SAMARA BARRAGAN FACC, ALI FACP CCDS Ot 496 CHR AIRWAY OBSTRUCT NEC 07/31/2013 SAMARA BARRAGAN FACC, ALI FACP CCDS Ot 786.50 CHEST PAIN NOS 07/31/2013 SAMARA BARRAGAN FACC, ALI FACP CCDS Ot V15.81 HX OF PAST NONCOMPLIANCE 07/31/2013 SAMARA BARRAGAN [facility], JUANITA [facility] CCDS Ot V45.82 PERCUTANEOUS TRANSLUM CORON ANGIOPLASTY 07/31/2013 SAMARA BARRAGAN [facility], JUANITA [facility] CCDS Ot V58.69 OTH MED,LT,CURRENT USE 09/07/2013 SONIA FINNEGAN INTRAVENOUS THERAPY NURSE Ot 724.4 LUMBOSACRAL NEURITIS NOS 09/07/2013 SONIA FINNEGAN INTRAVENOUS THERAPY NURSE Ot 724.5 BACKACHE NOS 10/03/2015 Regina Brewster [...] Regina Final I25.10 Atherosclerotic heart disease of [place] coronary artery without angina pect 10/08/2015 Ney, [...] L02.414 CUTANEOUS ABSCESS OF LEFT UPPER LIMB 08/31/2017 SONIA FINNEGAN APRN Ot F32.9 MAJOR DEPRESSIVE DISORDER, SINGLE EPISOD 08/31/2017 SONIA FINNEGAN APRN Ot F41.9 ANXIETY DISORDER, UNSPECIFIED 08/31/2017 SONIA FINNEGAN APRN, Ot J44.9 CHRONIC OBSTRUCTIVE PULMONARY DISEASE, U 08/31/2017 SONIA FINNEGAN APRN Ot L02.411 CUTANEOUS ABSCESS OF RIGHT AXILLA 08/31/2017 SONIA FINNEGAN APRN Ot M79.622 PAIN IN LEFT UPPER ARM 08/31/2017 SONIA FINNEGAN APRN Ot Z79.02 PENITENTIARY (CURRENT) USE OF ANTITHROMBOTI 08/31/2017 SONIA FINNEGAN APRN Ot Z79.52 PENITENTIARY (CURRENT) USE OF SYSTEMIC STER 08/31/2017 SONIA FINNEGAN APRN Ot 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 08/31/2017 SONIA FINNEGAN APRN Ot Z80.0 FAMILY HISTORY OF MALIGNANT NEOPLASM OF 08/31/2017 SONIA FINNEGAN APRN Ot Z80.8 FAMILY HISTORY OF MALIGNANT NEOPLASM OF 11/03/2017 CRISTI NICKERSON MD Ot M54.5 LOW BACK PAIN 11/09/2017 CRISTI NICKERSON MD Ot M54.5 LOW BACK PAIN 12/04/2017 RIVERA LAZO MD Ot B19.20 UNSPECIFIED VIRAL HEPATITIS C WITHOUT HE 12/04/2017 RIVERA LAZO MD Ot F17.210 NICOTINE DEPENDENCE, CIGARETTES, UNCOMPL 12/04/2017 RIVERA LAZO MD Ot F32.9 MAJOR DEPRESSIVE DISORDER, SINGLE EPISOD 12/04/2017 RIVERA LAZO MD Ot F41.9 ANXIETY DISORDER, UNSPECIFIED 12/04/2017 RIVERA LAZO MD Ot H53.8 OTHER VISUAL DISTURBANCES 12/04/2017 RIVERA LAZO MD, Ot I25.2 OLD MYOCARDIAL INFARCTION 12/04/2017 RIVERA LAZO MD Ot J44.9 CHRONIC OBSTRUCTIVE PULMONARY DISEASE, U 12/04/2017 RIVERA LAZO MD Ot M54.2 CERVICALGIA 12/04/2017 RIVERA LAZO MD Ot R42 DIZZINESS AND GIDDINESS 12/04/2017 RIVERA LAZO MD Ot Z79.02 PENITENTIARY (CURRENT) USE OF ANTITHROMBOTI 12/04/2017 RIVERA LAZO MD Ot 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 12/04/2017 RIVERA LAZO MD Ot Z80.0 FAMILY HISTORY OF MALIGNANT NEOPLASM OF 12/04/2017 RIVERA LAZO MD Ot Z80.8 FAMILY HISTORY OF MALIGNANT NEOPLASM OF 12/04/2017 RIVERA LAZO MD Ot Z85.828 PERSONAL HISTORY OF OTHER MALIGNANT NEOP 12/04/2017 RIVERA LAZO MD Ot Z90.89 ACQUIRED ABSENCE OF OTHER ORGANS 12/04/2017 RIVERA LAZO MD Ot Z98.890 OTHER SPECIFIED POSTPROCEDURAL STATES Procedures Code Description [place] [address] Duplex scan of extracranial arteries; complete bilateral study Phillip Renee 11/18/2015 37834 OFFICE/OUTPATIENT VISIT, [facility] 12/09/2015 09563 Duplex scan of extracranial arteries; complete bilateral [...] NA 5.0-8.0 Protein Negative NA Negative Specific [place] 1.030 NA 1.003-1.030 UA Collection type Clean [...] 19:30 Bacteria identification in wound by culture [id number] NRG FREE TEXT EXTERNAL SENSITIVITY REPORTED 09/02 [...] test by minimum inhibitory concentration R NRG Complete blood count (CBC) with automated white blood cell (WBC) differential - 11/30/17 16:45 Blood leukocytes automated count (number/volume) 11.0 10*3/uL 4.3-11.0 Blood erythrocytes automated count (number/volume) 4.43 10*6/uL 4.35-5.85 Venous blood hemoglobin measurement (mass/volume) 13.2 g/dL 13.3-17.7 Blood hematocrit (volume fraction) 39 % 40-54 Automated erythrocyte mean corpuscular volume 89 [foz_us] 80-99 Automated erythrocyte mean corpuscular hemoglobin (mass per erythrocyte) 30 pg 25-34 Automated erythrocyte mean corpuscular hemoglobin concentration measurement ( mass/volume) 34 g/dL 32-36 Automated erythrocyte distribution width ratio 14.9 % 10.0-14.5 Automated blood platelet count (count/volume) 232 10*3/uL 130-400 Automated blood platelet mean volume measurement 11.0 [foz_us] 7.4-10.4 Automated blood neutrophils/100 leukocytes 62 % 42-75 Automated blood lymphocytes/100 leukocytes 25 % 12-44 Blood monocytes/100 leukocytes 10 % 0-12 Automated blood eosinophils/100 leukocytes 4 % 0-10 Automated blood basophils/100 leukocytes 0 % 0-10 Blood neutrophils automated count (number/volume) 6.8 10*3 1.8-7.8 Blood lymphocytes automated count (number/volume) 2.7 10*3 1.0-4.0 Blood monocytes automated count (number/volume) 1.1 10*3 0.0-1.0 Automated eosinophil count 0.4 10*3/uL 0.0-0.3 Automated blood basophil count (count/volume) 0.0 10*3/uL 0.0-0.1 Capillary blood glucose measurement by glucometer (mass/volume) - 11/30/17 16: 46 Capillary blood glucose measurement by glucometer (mass/volume) 111 mg/dL 70-110 PT panel in platelet poor plasma by coagulation assay - 11/30/17 17:05 Prothrombin time (PT) in platelet poor plasma by coagulation assay 12.6 s 12.2-14.7 INR in platelet poor plasma or blood by coagulation assay 1.0 0.8-1.4 Activated partial thromboplastin time (aPTT) in platelet poor plasma bycoagulation assay - 11/30/17 17:05 Activated partial thromboplastin time (aPTT) in platelet poor plasma bycoagulation assay 27 s 24-35 Fibrin D-dimer FEU measurement in platelet poor plasma (mass/volume) - 17:05 Fibrin D-dimer FEU measurement in platelet poor plasma (mass/volume) 0.69 ug/mL 0.00-0.49 Comprehensive metabolic panel - 11/30/17 17:05 Serum or plasma sodium measurement (moles/volume) 139 mmol/L 135-145 Serum or plasma potassium measurement (moles/volume) 4.2 mmol/L 3.6-5.0 Serum or plasma chloride measurement (moles/volume) 105 mmol/L 98-107 Carbon dioxide 26 mmol/L 21-32 Serum or plasma anion gap determination (moles/volume) 8 mmol/L 5-14 Serum or plasma urea nitrogen measurement (mass/volume) 9 mg/dL 7-18 Serum or plasma creatinine measurement (mass/volume) 0.90 mg/dL 0.60-1.30 Serum or plasma urea nitrogen/creatinine mass ratio 10 NRG Serum or plasma creatinine measurement with calculation of estimated glomerular filtration rate > NRG Serum or plasma glucose measurement (mass/volume) 84 mg/dL 70-105 Serum or plasma calcium measurement (mass/volume) 9.4 mg/dL 8.5-10.1 Serum or plasma total bilirubin measurement (mass/volume) 0.4 mg/dL 0.1-1.0 Serum or plasma alkaline phosphatase measurement (enzymatic activity/volume) 78 U/L 40-136 Serum or plasma aspartate aminotransferase measurement (enzymatic activity/ volume) 14 U/L 5-34 Serum or plasma alanine aminotransferase measurement (enzymatic activity/volume ) 14 U/L 0-55 Serum or plasma protein measurement (mass/volume) 6.5 g/dL 6.4-8.2 Serum or plasma albumin measurement (mass/volume) 3.7 g/dL 3.2-4.5 CALCIUM CORRECTED 9.6 mg/dL 8.5-10.1 Serum or plasma troponin i.cardiac measurement (mass/volume) - 11/30/17 17:05 Serum or plasma troponin i.cardiac measurement (mass/volume) < ng/ mL <0.30 Complete urinalysis with reflex to culture - 11/30/17 17:43 Urine color determination YELLOW NRG Urine clarity determination CLEAR NRG Urine pH measurement by test strip 6 5-9 Specific gravity of urine by test strip 1.020 1.016- 1.022 Urine protein assay by test strip, semi-quantitative NEGATIVE NEGATIVE Urine glucose detection by automated test strip NEGATIVE NEGATIVE Erythrocytes detection in urine sediment by light microscopy NEGATIVE NEGATIVE Urine ketones detection by automated test strip NEGATIVE NEGATIVE Urine nitrite detection by test strip NEGATIVE NEGATIVE Urine total bilirubin detection by test strip NEGATIVE NEGATIVE Urine urobilinogen measurement by automated test strip (mass/volume) 4 mg/dL NORMAL Urine leukocyte esterase detection by dipstick 1+ NEGATIVE Automated urine sediment erythrocyte count by microscopy (number/high power field) NONE NRG Automated urine sediment leukocyte count by microscopy (number/high power field ) [HPF] NRG Bacteria detection in urine sediment by light microscopy NEGATIVE NRG Crystals detection in urine sediment by light microscopy NONE NRG Casts detection in urine sediment by light microscopy NONE NRG Mucus detection in urine sediment by light microscopy LARGE NRG Complete urinalysis with reflex to culture NO NRG Encounters ACCT No. Visit Date/Time Discharge Status Pt. Type Provider Facility Loc./Unit Complaint [id number] 03/06/2018 10:37:00 03/06/2018 11:45:00 DIS Emergency SONIA FINNEGAN APRN [facility] ER ABSCESS UNDER ARM [id number] 11/30/2017 16:14:00 11/30/2017 19:15:00 DIS Outpatient RIVERA LAZO MD [facility] ER DIZZINESS/HEAD AND NECK PRESSURE/L EYE BLURRY VISI [id number] 10/27/2017 11:01:00 11/09/2017 15:41:00 DIS Outpatient CRISTI NICKERSON MD [facility] REHAB LOW BACK PAIN [id number] 08/31/2017 19:03:00 08/31/2017 19:45:00 DIS Emergency SONIA FINNEGAN APRN [facility] ER R ARM/ARMPIT PAIN [id number] 09/07/2013 15:34:00 09/07/2013 15:48:00 DIS Emergency SONIA FINNEGAN APRN [facility] ER BACK PAIN, LEFT HIP PAIN [id number] 07/28/2013 15:20:00 07/31/2013 11:30:00 DIS Outpatient JUANITA PASCUAL MD, FACC, FACP CCDS [facility] CATH CHEST PAIN [id number] 07/20/2013 23:43:00 07/21/2013 13:15:00 DIS Inpatient JUANITA PASCUAL MD, FACC, FACP CCDS [facility] ICU CHEST PAIN [id number] 07/17/2013 12:40:00 07/18/2013 07:57:00 DIS Outpatient ANTONIO BARRAGAN, DEMETRIO Benavides [facility] CATH CHEST PAIN [id number] 01/29/2013 22:29:00 01/29/2013 23:49:00 DIS Emergency TRISTAN QUICK DO [facility] ER L HIP PAIN [id number] 07/28/2012 12:24:00 07/28/2012 16:25:00 DIS Emergency HAILY EUGENE MD [facility] ER POST OP SWELLING [id number] 07/26/2012 16:40:00 07/27/2012 12:54:00 DIS Outpatient SAMARA BARRAGAN FACC, JUANITA LOW CCDS [facility] CATH CP [id number] 03/19/2018 08:30:00 PEN Preadmit ELIANE BARRAGAN, KARLA Clemente [facility] ENDO SCREENING [id number] 01/14/2014 14:23:00 Document Registration [id number] 01/14/2014 14:23:00 Document Registration [id number] 01/14/2014 14:23:00 Document Registration [id number] 11/25/2010 23:38:00 Document Registration [id number] 06/25/2009 14:16:00 Document Registration [id number] 11/18/2015 10:22:06 11/18/2015 23:59:59 CLS Outpatient Phillip Renee [id number] 06/20/2017 21:31:00 06/20/2017 22:24:00 [id number] 06/20/2017 21:48:30 Document Registration [id number] 10/02/2015 21:17:00 10/05/2015 16:19:00 DIS Inpatient Regina Brewster [facility] [place] [facility] F7SE TIA, Drug abuse [id number] 10/06/2015 05:18:16 Document Registration [id number] 10/05/2015 05:15:29 Document Registration [id number] 10/04/2015 05:16:06 Document Registration [id number] 10/03/2015 05:17:17 Document Registration [id number] 12/09/2015 10:30:00 Document Registration [id number] 10/02/2015 21:17:00 Document Registration
== END 2018-03-06 11:45 | disposition home or self-care (01) ==
LOC: ER 10:37 → EDUNIT# 10:37 → ER 11:45
DX: L02.412 Cutaneous abscess of left axilla (principal); J44.9 Chronic obstructive pulmonary disease, unspecified; I25.2 Old myocardial infarction; F41.9 Anxiety disorder, unspecified; B19.20 Unspecified viral hepatitis C without hepatic coma; F32.9 Major depressive disorder, single episode, unspecified; F17.210 Nicotine dependence, cigarettes, uncomplicated; Z98.61 Coronary angioplasty status; Z80.8 Family history of malignant neoplasm of other organs or systems; Z80.0 Family history of malignant neoplasm of digestive organs; Z90.89 Acquired absence of other organs; Z85.828 Personal history of other malignant neoplasm of skin; Z87.19 Personal history of other diseases of the digestive system; Z90.49 Acquired absence of other specified parts of digestive tract; Z95.5 Presence of coronary angioplasty implant and graft; Z79.82 Long term (current) use of aspirin; Z79.02 Long term (current) use of antithrombotics/antiplatelets
CPT/HCPCS: 10060; 87070; 87077; 87186; 87205

== ENCOUNTER 2018-03-13 14:26 | Outpatient (CLI) | payer OTHER ==
[~2018-03-13] VITALS: Ht 188 cm; Wt 86.2 kg
[~2018-03-13 14:26] MED LIST changes: +AMLO5TAB9 PO; +ASPI-999 PO; +BACL10TA PO; +BUDE10.2 IH; +CARV6.252 PO; +CLOP75TA69 PO; +GABA-488 PO; +HYDR-4226 PO; +IPRA4AER IH; +METO-333 PO; +PRAV20TA3 PO; +RT-ALBUINH IH
== END 2018-03-13 15:33 | disposition home or self-care (01) ==
LOC: PREOP 14:26
PROVIDERS: ATTEND Surgery
DX: Z01.818 Encounter for other preprocedural examination (principal)

== ENCOUNTER 2018-05-04 12:01 | Emergency (ER) | payer OTHER ==
[~2018-05-04] VITALS: Ht 188 cm; Wt 86.2 kg
--- OUTSIDE RECORDS SUMMARY | 2018-05-04 12:06 | XMS REPORT | Continuity of Care Document ---
Author Author [facility] Organization [facility] Address Unknown Phone Unavailable Allergies Active Description Code Type Severity Reaction Onset Reported/Identified Relationship to Patient Clinical Status Yes NO KNOWN DRUG ALLERGIES UNKNOWN NO KNOWN DRUG ALLERG Yes NKANo Known Allergies NKA Miscellaneous Allergy Mild N/A 06/03/2008 Yes No Known Allergies NKMA N/A N/A 10/02/2015 Yes No Known Drug Allergies [id number] Drug Allergy Unknown N/A 03/13/2018 Medications Medication Packaging Start Date Stop Date [...] 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,IN 07/27/2012 SAMARA BARRAGAN FACC, ALI FACP CCDS Ot 414.01 CORONARY ATHEROSCLEROSIS OF [place] CORON 07/27/2012 SAMARA BARRAGAN FACC, JUANITA FACP CCDS Ot V58.69 OTH MED,LT,CURRENT USE 07/28/2012 HAILY EUGENE MD Ot 998.12 HEMATOMA COMPLIC A PROC 01/29/2013 TRISTAN QUICK DO Ot 719.45 JOINT PAIN-PELVIS 07/18/2013 DEMETRIO ALVAREZ [...] ALVAREZ MD Ot 414.01 CORONARY ATHEROSCLEROSIS OF [place] CORON 07/18/2013 DEMETRIO ALVAREZ MD Ot V45.82 PERCUTANEOUS TRANSLUM CORON ANGIOPLASTY 07/18/2013 DEMETRIO ALVAREZ MD Ot V58.63 LONG-TERM(CURRENT)USE OF ANTIPLATELET/AN 07/18/2013 DEMETRIO ALVAREZ MD Ot V58.69 OTH MED,LT,CURRENT USE 07/21/2013 SAMARA BARRAGAN FACC, JUANITA LOW CCDS Ot 070.70 UNSPECIFIED VIRAL HEPATITIS C WITHOUT HE 07/21/2013 JUANITA PASCUAL MD, FACCP CCDS Ot 272.0 PURE HYPERCHOLESTEROLEM 07/21/2013 ASMARA BARRAGAN FACC, JUANITA URRUTIAP CCDS Ot 272.4 HYPERLIPIDEMIA NEC/NOS 07/21/2013 SAMARA BARRAGAN FACC, JUANITA URRUTIAP CCDS Ot 288.60 LEUKOCYTOSIS, UNSPECIFIED 07/21/2013 JUANITA PASCUAL MD, FACCP CCDS Ot 305.1 TOBACCO USE DISORDER 07/21/2013 JUANITA PASCUAL MD, FACCP CCDS Ot 355.9 MONONEURITIS NOS 07/21/2013 SAMARA BARRAGAN FACC, JUANITA FACP CCDS Ot 401.9 HYPERTENSION NOS 07/21/2013 JUANITA PASCUAL MD, FACC FACP CCDS Ot 412 OLD MYOCARDIAL INFARCT 07/21/2013 SAMARA MD FACC, ALI FACP CCDS Ot 414.01 CORONARY ATHEROSCLEROSIS OF [place] CORON 07/21/2013 SAMARA BARRAGAN FACC, JUANITA FACP CCDS Ot 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 NEC 07/21/2013 SAMARA BARRAGAN FACC, JUANITA FACP CCDS Ot 496 CHR AIRWAY OBSTRUCT NEC 07/21/2013 SAMARA BARRAGAN FACC, JUANITA FACP CCDS Ot 707.9 CHRONIC SKIN ULCER NOS 07/21/2013 SAMARA BARRAGAN FACC, JUANITA FACP CCDS Ot 716.90 ARTHROPATHY NOS-UNSPEC 07/21/2013 SAMARA BARRAGAN FACC, JUANITA FACP CCDS Ot 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 07/21/2013 SAMARA BARRAGAN FACC, JUANITA FACP CCDS Ot 786.05 SHORTNESS OF BREATH 07/21/2013 JUANITA PASCUAL MD, FACC FACP CCDS Ot 786.09 RESPIRATORY ABNORM NEC 07/21/2013 JUANITA PASCUAL MD, FACC FACP CCDS Ot 786.50 CHEST PAIN NOS [...] CCDS Ot 305.1 TOBACCO USE DISORDER 07/31/2013 JUANITA PASCUAL MD, FACC FACP CCDS Ot 401.9 HYPERTENSION NOS 07/31/2013 SAMARA BARRAGAN FACC, ALI FACP CCDS Ot 412 OLD MYOCARDIAL INFARCT 07/31/2013 SAMARA BARRAGAN FACC ALI FACP CCDS Ot 414.01 CORONARY ATHEROSCLEROSIS OF [place] CORON 07/31/2013 JUANITA PASCUAL MD, FACC FACP CCDS Ot 496 CHR AIRWAY OBSTRUCT NEC 07/31/2013 SAMARA BARRAGAN FACC, ALI FACP CCDS Ot 786.50 CHEST PAIN NOS 07/31/2013 SAMARA BARRAGAN FACC, JUANITA URRUTIA CCDS Ot V15.81 HX OF PAST NONCOMPLIANCE 07/31/2013 SAMARA BARRAGAN FACC, JUANITA [facility] CCDS Ot V45.82 PERCUTANEOUS TRANSLUM CORON ANGIOPLASTY 07/31/2013 SAMARA BARRAGAN FACC, JUANITA [facility] CCDS Ot V58.69 OTH MED,LT,CURRENT USE 09/07/2013 SONIA CRISTOBAL VESSEL WELDER Ot 724.4 LUMBOSACRAL NEURITIS NOS 09/07/2013 SONIA CRISTOBAL VESSEL WELDER Ot 724.5 BACKACHE NOS 10/03/2015 Regina Brewster Admitting G45.9 10/08/2015 Ney Regina Final E78.5 Hyperlipidemia, unspecified 10/08/2015 Ney Regina Final E87.6 Hypokalemia 10/08/2015 Ney Regina Final F12.10 Cannabis abuse, uncomplicated 10/08/2015 Ney Regina Final F15.10 Other stimulant abuse, uncomplicated 10/08/2015 Ney Regina Final G81.91 Hemiplegia, unspecified affecting right dominant side 10/08/2015 Ney Regina Final G92 Toxic encephalopathy 10/08/2015 Ney Regina Final I10 Essential (primary) hypertension 10/08/2015 Ney Regina Final I25.10 Atherosclerotic heart disease of [place] coronary artery without angina pect 10/08/2015 Ney Regina Final I65.23 Occlusion and stenosis of bilateral carotid arteries 10/08/2015 Piper Brewstera Final Z95.5 Presence of coronary angioplasty implant and graft 11/18/2015 Phillip Renee F17.210 Nicotine dependence, cigarettes, uncomplicated Ammar, Phillip D 11/18/2015 AmPhillip huang I10 Essential (primary) hypertension Amreina, Phillip D 11/18/2015 AmPhillip huang I65.23 Occlusion and stenosis of bilateral carotid arteries Thelma, Phillip Sawyer 11/19/2015 AmPhillip huang F17.210 Nicotine dependence, cigarettes, uncomplicated Ammar, Phillip D 11/19/2015 Amreina, Phillip D I10 Essential (primary) hypertension Amreina, Phillip D 11/19/2015 Amreina, Phillip Sawyer I65.23 Occlusion and stenosis of bilateral carotid arteries AmPhillip huang 12/09/2015 W B07.8 Verrucous Papilloma 12/09/2015 W [...] H25.13 NS Only Cataracts OU 06/20/2017 Sonia Cristobal 041.12 METHICILLIN RESISTANT STAPHYLOCOCCUS AUREUS INFECTION IN CONDITIONS CLASSIFIED ELSEWHERE AND OF UNSPECIFIED SITE 06/20/2017 Sonia Cristobal 401.0 MALIGNANT ESSENTIAL HYPERTENSION 06/20/2017 Sonia Cristobal 682.3 CELLULITIS AND ABSCESS OF UPPER ARM AND FOREARM 06/20/2017 Sonia Cristobal B95.62 METHICILLIN RESIS STAPH INFCT CAUSING DISEASES CLASSD ELSWHR 06/20/2017 Sonia Cristobal I10 ESSENTIAL (PRIMARY) HYPERTENSION 06/20/2017 Sonia Cristobal L02.414 CUTANEOUS ABSCESS OF LEFT UPPER LIMB 08/31/2017 SONIA CRISTOBAL APRN Ot F32.9 MAJOR DEPRESSIVE DISORDER, SINGLE EPISOD 08/31/2017 SONIA CRISTOBAL APRN Ot F41.9 ANXIETY DISORDER, UNSPECIFIED 08/31/2017 SONIA CRISTOBAL APRN Ot J44.9 CHRONIC OBSTRUCTIVE PULMONARY DISEASE, U 08/31/2017 SONIA CRISTOBAL APRN Ot L02.411 CUTANEOUS ABSCESS OF RIGHT AXILLA 08/31/2017 SONIA CRISTOBAL APRN Ot M79.622 PAIN IN LEFT UPPER ARM 08/31/2017 SONIA CRISTOBAL APRN Ot Z79.02 FABRICS AND MATERIAL CUTTER (CURRENT) USE OF ANTITHROMBOTI 08/31/2017 SONIA CRISTOBAL APRN Ot Z79.52 FABRICS AND MATERIAL CUTTER (CURRENT) USE OF SYSTEMIC STER 08/31/2017 SONIA CRISTOBAL APRN Ot Z79.82 FABRICS AND MATERIAL CUTTER (CURRENT) USE OF ASPIRIN 08/31/2017 CRISTOBAL, PETER J VESSEL WELDER Ot Z80.0 FAMILY HISTORY OF MALIGNANT NEOPLASM OF 08/31/2017 CRISTOBALSONIA VESSEL WELDER Ot Z80.8 FAMILY HISTORY OF MALIGNANT NEOPLASM OF 11/03/2017 CRISTI NICKERSON MD Ot M54.5 LOW BACK PAIN 11/09/2017 CRISTI NICKERSON MD Ot M54.5 LOW BACK PAIN 11/30/2017 RIVERA LAZO MD Ot B19.20 UNSPECIFIED VIRAL HEPATITIS C WITHOUT HE 11/30/2017 RIVERA LAZO MD Ot F17.210 NICOTINE DEPENDENCE, CIGARETTES, UNCOMPL 11/30/2017 RIVERA LAZO MD Ot F32.9 MAJOR DEPRESSIVE DISORDER, SINGLE EPISOD 11/30/2017 RIVERA LAZO MD, Ot F41.9 ANXIETY DISORDER, UNSPECIFIED 11/30/2017 RIVERA LAZO MD Ot H53.8 OTHER VISUAL DISTURBANCES 11/30/2017 RIVERA LAZO MD, Ot I25.2 OLD MYOCARDIAL INFARCTION 11/30/2017 RIVERA LAZO MD Ot J44.9 CHRONIC OBSTRUCTIVE PULMONARY DISEASE, U 11/30/2017 RIVERA LAZO MD, Ot M54.2 CERVICALGIA 11/30/2017 RIVERA LAZO MD, Ot R42 DIZZINESS AND GIDDINESS 11/30/2017 RIVERA LAZO MD Ot Z79.02 MCFP (CURRENT) USE OF ANTITHROMBOTI 11/30/2017 RIVERA LAZO MD Ot Z79.82 MCFP (CURRENT) USE OF ASPIRIN 11/30/2017 RIVERA LAZO MD Ot Z80.0 FAMILY HISTORY OF MALIGNANT NEOPLASM OF 11/30/2017 RIVERA LAZO MD Ot Z80.8 FAMILY HISTORY OF MALIGNANT NEOPLASM OF 11/30/2017 RIVERA LAZO MD Ot Z85.828 PERSONAL HISTORY OF OTHER MALIGNANT NEOP 11/30/2017 RIVERA LAZO MD Ot Z90.89 ACQUIRED ABSENCE OF OTHER ORGANS 11/30/2017 RIVERA LAZO MD Ot Z98.890 OTHER SPECIFIED POSTPROCEDURAL STATES 12/04/2017 RIVERA LAZO MD Ot B19.20 UNSPECIFIED VIRAL HEPATITIS C WITHOUT HE 12/04/2017 RIVERA LAZO MD Ot F17.210 NICOTINE DEPENDENCE, CIGARETTES, UNCOMPL 12/04/2017 RIVERA LAZO MD Ot F32.9 MAJOR DEPRESSIVE DISORDER, SINGLE EPISOD 12/04/2017 RIVERA LAZO MD Ot F41.9 ANXIETY DISORDER, UNSPECIFIED 12/04/2017 RIVERA LAZO MD Ot H53.8 OTHER VISUAL DISTURBANCES 12/04/2017 RIVERA LAZO MD Ot I25.2 OLD MYOCARDIAL INFARCTION 12/04/2017 RIVERA LAZO MD Ot J44.9 CHRONIC OBSTRUCTIVE PULMONARY DISEASE, U 12/04/2017 RIVERA LAZO MD Ot M54.2 CERVICALGIA 12/04/2017 RIVERA LAZO MD Ot R42 DIZZINESS AND GIDDINESS 12/04/2017 RIVERA LAZO MD Ot Z79.02 FABRICS AND MATERIAL CUTTER (CURRENT) USE OF ANTITHROMBOTI 12/04/2017 RIVERA LAZO MD Ot Z79.82 [facility] (CURRENT) USE OF ASPIRIN 12/04/2017 RIVERA LAZO MD Ot Z80.0 FAMILY HISTORY OF MALIGNANT NEOPLASM OF 12/04/2017 RIVERA LAZO MD Ot Z80.8 FAMILY HISTORY OF MALIGNANT NEOPLASM OF 12/04/2017 RIVERA LAZO MD Ot Z85.828 PERSONAL HISTORY OF OTHER MALIGNANT NEOP 12/04/2017 RIVERA LAZO MD Ot Z90.89 ACQUIRED ABSENCE OF OTHER ORGANS 12/04/2017 RIVERA LAZO MD Ot Z98.890 OTHER SPECIFIED POSTPROCEDURAL STATES 03/06/2018 SONIA CRISTOBAL APRN Ot B19.20 UNSPECIFIED VIRAL HEPATITIS C WITHOUT HE 03/06/2018 SONIA CRISTOBAL APRN Ot F17.210 NICOTINE DEPENDENCE, CIGARETTES, UNCOMPL 03/06/2018 SONIA CRISTOBAL APRN Ot F32.9 MAJOR DEPRESSIVE DISORDER, SINGLE EPISOD 03/06/2018 SONIA CRISTOBAL APRN Ot F41.9 ANXIETY DISORDER, UNSPECIFIED 03/06/2018 SONIA CRISTOBAL APRN Ot I25.2 OLD MYOCARDIAL INFARCTION 03/06/2018 SONIA CRISTOBAL APRN Ot J44.9 CHRONIC OBSTRUCTIVE PULMONARY DISEASE, U 03/06/2018 SONIA CRISTOBAL APRN Ot L02.412 CUTANEOUS ABSCESS OF LEFT AXILLA 03/06/2018 SONIA CRISTOBAL APRN Ot Z79.02 FABRICS AND MATERIAL CUTTER (CURRENT) USE OF ANTITHROMBOTI 03/06/2018 SONIA CRISTOBAL APRN Ot Z79.82 FABRICS AND MATERIAL CUTTER (CURRENT) USE OF ASPIRIN 03/06/2018 SONIA CRISTOBAL APRN Ot Z80.0 FAMILY HISTORY OF MALIGNANT NEOPLASM OF 03/06/2018 SONIA CRISTOBAL APRN Ot Z80.8 FAMILY HISTORY OF MALIGNANT NEOPLASM OF 03/06/2018 SONIA CRISTOBAL APRN Ot Z85.828 PERSONAL HISTORY OF OTHER MALIGNANT NEOP 03/06/2018 SONIA CRISTOBAL APRN Ot Z87.19 PERSONAL HISTORY OF OTHER DISEASES OF TH 03/06/2018 SONIA CRISTOBAL APRN Ot Z90.49 ACQUIRED ABSENCE OF OTHER SPECIFIED PART 03/06/2018 SONIA CRISTOBAL APRN Ot Z90.89 ACQUIRED ABSENCE OF OTHER ORGANS 03/06/2018 SONIA CRISTOBAL APRN Ot Z95.5 PRESENCE OF CORONARY ANGIOPLASTY IMPLANT 03/06/2018 SONIA CRISTOBAL APRN Ot Z98.61 CORONARY ANGIOPLASTY STATUS 03/08/2018 SONIA CRISTOBAL APRN Ot B19.20 UNSPECIFIED VIRAL HEPATITIS C WITHOUT HE 03/08/2018 SONIA CRISTOBAL APRN Ot F17.210 NICOTINE DEPENDENCE, CIGARETTES, UNCOMPL 03/08/2018 SONIA CRISTOBAL APRN Ot F32.9 MAJOR DEPRESSIVE DISORDER, SINGLE EPISOD 03/08/2018 SONIA CRISTOBAL APRN Ot F41.9 ANXIETY DISORDER, UNSPECIFIED 03/08/2018 SONIA CRISTOBAL APRN Ot I25.2 OLD MYOCARDIAL INFARCTION 03/08/2018 SONIA CRISTOBAL APRN Ot J44.9 CHRONIC OBSTRUCTIVE PULMONARY DISEASE, U 03/08/2018 SONIA CRISTOBAL APRN Ot L02.412 CUTANEOUS ABSCESS OF LEFT AXILLA 03/08/2018 SONIA CRISTOBAL APRN Ot Z79.02 [facility] (CURRENT) USE OF ANTITHROMBOTI 03/08/2018 SONIA CRISTOBAL APRN Ot Z79.82 FABRICS AND MATERIAL CUTTER (CURRENT) USE OF ASPIRIN 03/08/2018 SONIA CRSITOBAL VESSEL WELDER Ot Z80.0 FAMILY HISTORY OF MALIGNANT NEOPLASM OF 03/08/2018 SONIA CRISTOBAL VESSEL WELDER Ot Z80.8 FAMILY HISTORY OF MALIGNANT NEOPLASM OF 03/08/2018 SONIA CRISTOBAL VESSEL WELDER Ot Z85.828 PERSONAL HISTORY OF OTHER MALIGNANT NEOP 03/08/2018 SONIA CRISTOBAL APRN Ot Z87.19 PERSONAL HISTORY OF OTHER DISEASES OF TH 03/08/2018 SONIA CRISTOBAL APRN Ot Z90.49 ACQUIRED ABSENCE OF OTHER SPECIFIED PART 03/08/2018 SONIA CRISTOBAL VESSEL WELDER Ot Z90.89 ACQUIRED ABSENCE OF OTHER ORGANS 03/08/2018 SONIA CRISTOBAL APRN Ot Z95.5 PRESENCE OF CORONARY ANGIOPLASTY IMPLANT 03/08/2018 SONIA CRISTOBAL APRN Ot Z98.61 CORONARY ANGIOPLASTY STATUS 03/13/2018 ELIANE BARRAGAN, KARLA M Ot Z01.818 ENCOUNTER FOR OTHER PREPROCEDURAL EXAMIN 03/13/2018 ELIANE BARRAGAN, KARLA M Ot Z01.818 ENCOUNTER FOR OTHER PREPROCEDURAL EXAMIN 03/13/2018 ELIANE BARRAGAN, KARLA M Ot Z01.818 ENCOUNTER FOR OTHER PREPROCEDURAL EXAMIN 03/13/2018 ELIANE BARRAGAN, KARLA M Ot Z01.818 ENCOUNTER FOR OTHER PREPROCEDURAL EXAMIN Procedures Code Description [place] [address] Duplex scan of extracranial arteries; complete bilateral study Phillip Renee 11/18/2015 29469 OFFICE/OUTPATIENT VISIT, [facility] 12/09/2015 45200 Duplex scan of extracranial arteries; complete bilateral [...] NA 5.0-8.0 Protein Negative NA Negative Specific [place] 1.030 NA 1.003-1.030 UA Collection type Clean [...] 19:30 Bacteria identification in wound by culture [id number] NRG FREE TEXT EXTERNAL SENSITIVITY REPORTED 09/02 9:15 NRG QUANTITY OF GROWTH Abundant Growth NRG CALL POSITIVES (F1 HELP) CALLED TO ER AND PRINTED 09/02 9:15 BY Serge [facility] Bacterial susceptibility panel - 08/31/17 19:30 Oxacillin [...] urinalysis with reflex to culture NO NRG Gram stain microscopy - 03/06/18 11:40 Gram stain microscopy No bacteria seen NRG Bacteria identification in wound by culture - 03/06/18 11:40 Bacteria identification in wound by culture [id number] NRG FREE TEXT EXTERNAL ID REPORTED 03/07/18 15:05 NRG QUANTITY OF GROWTH FEW NRG FREE TEXT ENTRY 2 SENSITIVITY REPORTED 03/08/18 09:05 NRG RML Sensitivity Panel - 03/06/18 11:40 Oxacillin susceptibility test by minimum inhibitory concentration R NRG Clindamycin susceptibility test by minimum inhibitory concentration <= NRG Erythromycin susceptibility test by minimum inhibitory concentration > NRG Trimethoprim/sulfamethoxazole susceptibility test by minimum inhibitoryconcentration S NRG Vancomycin susceptibility test by minimum inhibitory concentration 1 NRG Levofloxacin susceptibility test by minimum inhibitory concentration 4 NRG Rifampin susceptibility test by minimum inhibitory concentration <= NRG Cefazolin susceptibility test by minimum inhibitory concentration > NRG Linezolid susceptibility test by minimum inhibitory concentration 2 NRG Penicillin G susceptibility test by minimum inhibitory concentration > NRG Moxifloxacin susceptibility test by minimum inhibitory concentration S NRG Minocycline susc ARIANNE <= NRG Encounters ACCT No. Visit Date/Time Discharge Status Pt. Type Provider Facility Loc./Unit Complaint [id number] 03/19/2018 08:30:00 03/19/2018 23:59:59 CLS Preadmit ELIANE BARRAGAN, KARLA Clemente [facility] ENDO SCREENING [id number] 03/13/2018 14:26:00 03/13/2018 15:33:00 DIS Outpatient KARLA DEL RIO MD [facility] PREOP COLONOSCOPY [id number] 03/06/2018 10:37:00 03/06/2018 11:45:00 DIS Emergency SONIA CRISTOBAL APRN [facility] ER ABSCESS UNDER ARM [id number] 11/30/2017 16:14:00 11/30/2017 19:15:00 DIS Emergency CLIFTON BARRAGAN, RIVERA Berrios [facility] ER DIZZINESS/HEAD AND NECK PRESSURE/L EYE BLURRY VISI [id number] 10/27/2017 11:01:00 11/09/2017 15:41:00 DIS Outpatient CRISTI NICKERSON MD [facility] REHAB LOW BACK PAIN [id number] 08/31/2017 19:03:00 08/31/2017 19:45:00 DIS Emergency SONIA CRISTOBAL VESSEL WELDER [facility] ER R ARM/ARMPIT PAIN [id number] 09/07/2013 15:34:00 09/07/2013 15:48:00 DIS Emergency SONIA CRISTOBAL VESSEL WELDER [facility] ER BACK PAIN, LEFT HIP PAIN [id number] 07/28/2013 15:20:00 07/31/2013 11:30:00 DIS Outpatient SAMARA BARRAGAN FACKayden, JUANITA LOW CCDS [facility] CATH CHEST PAIN [id number] 07/20/2013 23:43:00 07/21/2013 13:15:00 DIS Inpatient SAMARA BARRAGAN FACKayden, JUANITA LOW CCDS [facility] ICU CHEST PAIN [id number] 07/17/2013 12:40:00 07/18/2013 07:57:00 DIS Outpatient DEMETRIO ALVAREZ MD [facility] CATH CHEST PAIN [id number] 01/29/2013 22:29:00 01/29/2013 23:49:00 DIS Emergency TRISTAN QUICK DO K [facility] ER L HIP PAIN [id number] 07/28/2012 12:24:00 07/28/2012 16:25:00 DIS Emergency HAILY EUGENE MD [facility] ER POST OP SWELLING [id number] 07/26/2012 16:40:00 07/27/2012 12:54:00 DIS Outpatient SAMARA BARRAGAN FACKayden, JUANITA LOW CCDS [facility] CATH CP [id number] 05/04/2018 12:02:00 ACT Emergency RIVERA LAZO MD [facility] ER R KNEE PAIN [id number] 01/14/2014 14:23:00 Document Registration [id number] 01/14/2014 14:23:00 Document Registration [id number] 01/14/2014 14:23:00 Document Registration [id number] 11/25/2010 23:38:00 Document Registration [id number] 06/25/2009 14:16:00 Document Registration [id number] 11/18/2015 10:22:06 11/18/2015 23:59:59 CLS Outpatient Phillip Renee [id number] 06/20/2017 21:31:00 06/20/2017 22:24:00 DIS Outpatient Cristobal, [facility] ER [id number] 06/20/2017 21:48:30 Document Registration [id number] 10/02/2015 21:17:00 10/05/2015 16:19:00 DIS [facility] abuse [id number] 10/06/2015 05:18:16 Document Registration [id number] 10/05/2015 05:15:29 Document Registration [id number] 10/04/2015 05:16:06 Document Registration [id number] 10/03/2015 05:17:17 Document Registration [id number] 12/09/2015 10:30:00 Document Registration [id number] 10/02/2015 21:17:00 Document Registration
[2018-05-04] MEDS ORDERED: IBUPROFEN 800 MG (MOTRIN) TAB PO ONE (13:15)
[2018-05-04] MEDS ORDERED: HYDROcodone/APAP 5 MG/325 MG (LORTAB) TAB PO ONE (13:15)
--- NOTE | 2018-05-04 13:20 | ED Lower Extremity ---
General Chief Complaint: Lower Extremity Stated Complaint: R KNEE PAIN Nursing Triage Note: pt presents to ed with complaints of r knee pain and swelling x 3-4 days. reports she was walking down stairs today and fell. reports r knee pain increased after fall. Nursing Sepsis Screen: No Definite Risk Source: patient Exam Limitations: no limitations History of Present Illness Date Seen by Provider: May 04, 2018 Time Seen by Provider: 13:18 Initial Comments To ER with reports of right knee pain and swelling. He has some chronic discomfort in the right knee but he fell today striking the medial aspect of the right knee on the edge of the stairs outside at home. He's been weightbearing but with some pain. No fevers or chills. Onset: last week Severity: moderate Pain/Injury Location: right knee Method of Injury: fell Modifying Factors: Worse With Movement Allergies and Home Medications Allergies Coded Allergies: No Known Drug Allergies (Unverified , 03/13/18) Home Medications Albuterol Sulfate 1 Puff Puff, 2 PUFF IH Q4H PRN for SHORTNESS OF BREATH, ( Reported) 1 PUFF = 90 MCG Albuterol/Ipratropium 4 Gm Aero, 2 PUFF IH DAILY, (Reported) Amlodipine Besylate 5 Mg Tablet, 5 MG PO DAILY, (Reported) Aspirin 81 Mg Tab.chew, 81 MG PO DAILY, (Reported) Baclofen 10 Mg Tablet, 5 MG PO BID, (Reported) Budesonide/Formoterol Fumarate 10.2 Gm Hfa.aer.ad, 2 PUFF IH BID, (Reported) Carvedilol 6.25 Mg Tablet, 6.25 MG PO BID, (Reported) Clopidogrel Bisulfate 75 Mg Tablet, 75 MG PO DAILY, (Reported) Gabapentin 300 Mg Capsule, 900 MG PO TID, (Reported) Metoprolol Tartrate 25 Mg Tablet, 12.5 MG PO BID, (Reported) Pravastatin Sodium 20 Mg Tablet, 20 MG PO HS, (Reported) Patient Home Medication List Home Medication List Reviewed: Yes Review of Systems Constitutional: see HPI EENTM: see HPI Respiratory: no symptoms reported Cardiovascular: no symptoms reported Genitourinary: no symptoms reported Musculoskeletal: see HPI Skin: no symptoms reported Psychiatric/Neurological: No Symptoms Reported Past [facility] Hx Patient Social History Alcohol Use: Denies Use Recreational Drug Use: Yes (marijuana) Smoking Status: Current Everyday Smoker Type Used: Cigarettes 2nd Hand Smoke Exposure: Yes Recent Foreign Travel: No Contact w/Someone Who Travel: No Recent Infectious Disease Expo: No Recent Hopitalizations: No Physical Abuse: No Sexual Abuse: No Mistreated: No Fear: No Immunizations Up To Date Tetanus Booster (TDap): More than 5yrs Date of Pneumonia Vaccine: June 20, 2013 Date of Influenza Vaccine: Nov 27, 2017 Seasonal Allergies Seasonal Allergies: No Past Medical History Surgeries: Yes (EYES, BACK, STENTS X3, NECK, FOOT, BILAT CAROTIDS) Angioplasty, Appendectomy, Coronary Stent, Orthopedic Respiratory: Yes COPD Cardiac: Yes (STENTS X3) Heart Attack, High Cholesterol, Hypertension Neurological: Yes Neuropathy Reproductive Disorders: No Sexually Transmitted Disease: No HIV/AIDS: No Genitourinary: No Gastrointestinal: Yes Hepatitis Musculoskeletal: Yes Degenerate Disk Disease, Arthritis Endocrine: No HEENT: Yes (READING GLASSES) Loss of Vision: Bilateral Hearing Impairment: Hard of Hearing Cancer: Yes Skin Psychosocial: Yes Anxiety, Violent Behavior, Depression Integumentary: Yes (SKIN CANCER-GETS BLISTERS) Recent Skin Changes Blood Disorders: No Adverse Reaction/Blood Tranf: No Family Medical History Cancer 19 FATHER (SKIN) 19 MOTHER Cancer of colon 19 MOTHER Kidney disease 19 FATHER (PASSED KIDNEY FAILURE) Physical Exam Vital Signs Vital Signs - First Documented 05/04/18 12:34 Temp 96.8 Pulse 57 Resp 16 B/P (MAP) 111/72 (85) Pulse Ox 96 Capillary Refill : Less Than 3 Seconds Height, Weight, BMI Height: 6'2.00" Weight: 190lbs. 0.0oz. 86.947735ie; 24.4 BMI Method:Stated General Appearance: WD/WN, no apparent distress HEENT: PERRL/EOMI, normal ENT inspection Respiratory: no respiratory distress, no accessory muscle use Hips: bilateral hip non-tender, bilateral hip normal inspection, bilateral hip normal range of motion Legs: bilateral leg non-tender, bilateral leg normal inspection, bilateral leg normal range of motion Knees: left knee non-tender; bilateral knee normal inspection; left knee normal range of motion; right knee other (the right knee shows no erythema, no ecchymosis, no swelling or deformity. He jumps with even light touch of the skin.) Ankles: bilateral ankle non-tender, bilateral ankle normal inspection, bilateral ankle normal range of motion Feet: bilateral foot non-tender, bilateral foot normal inspection, bilateral foot normal range of motion Progress/Results/Core Measures Results/Orders My Orders Orders - SONIA CRISTOBAL APRN Knee, Right, 3 Views (05/04/18 13:14) Ibuprofen Tablet (Motrin Tablet) (05/04/18 13:15) Hydrocodone/Apap 5/325 Tablet (Lortab 5 (05/04/18 13:15) Vital Signs/I&O 05/04/18 12:34 Temp 96.8 Pulse 57 Resp 16 B/P (MAP) 111/72 (85) Pulse Ox 96 Blood Pressure Mean: 85 Departure Impression Primary Impression: Arthritis of knee Disposition: HOME, SELF-CARE Condition: Stable Departure-Patient Inst. Decision time for Depature: 13:38 Referrals: YUMIKO HERNANDEZ MD (PCP) Primary Care Physician RADHA AGUILAR MD, JOHN T MD STRINGER,BRIGETTE BENITEZ,MARY ANNE Valdes MD Patient Instructions: Arthritis and Exercise Add. Discharge Instructions: N. Medication as directed 2. Follow-up with your doctor next week 3. All discharge instructions reviewed with patient and/or family. Voiced understanding. Scripts Naproxen (Naprosyn) 500 Mg Tablet 500 MG PO BID, #14 TAB Prov: SONIA CRISTOBAL APRN 05/04/18 Hydrocodone/Acetaminophen ([place] 5-325 Tablet) 1 Each Tablet 1 EACH PO Q6H PRN for PAIN-MODERATE MDD 10, #14 TAB Prov: SONIA CRISTOBAL APRN 05/04/18 SONIA CRISTOBAL APRN May 04, 2018 13:20
--- NOTE | 2018-05-04 13:36 | Diagnostic Imaging Report ---
INDICATION: Right knee pain for four days, status post fall. TIME OF EXAM: 01:24 p.m. FINDINGS: Three views of the right knee show normal alignment. The joint spaces are well-maintained. The articular surfaces are smooth. There appears to be some mild chondrocalcinosis of the lateral compartment. No fracture, dislocation or effusion is seen. IMPRESSION: Mild degenerative changes. No acute bony abnormality is detected. Dictated by: Dictated on workstation # [id number]
[2018-05-04] MEDS ORDERED: NAPR-1071 PO (13:40)
[2018-05-04] MEDS ORDERED: HYDR-4226 PO (13:40)
[2018-05-04 13:49] VITALS: BP 117/70
== END 2018-05-04 13:48 | disposition home or self-care (01) ==
LOC: EDUNIT# 12:01 → ER 12:02
DX: M17.11 Unilateral primary osteoarthritis, right knee (principal); J44.9 Chronic obstructive pulmonary disease, unspecified; I25.2 Old myocardial infarction; E78.00 Pure hypercholesterolemia, unspecified; I10 Essential (primary) hypertension; F12.10 Cannabis abuse, uncomplicated; F41.9 Anxiety disorder, unspecified; F32.9 Major depressive disorder, single episode, unspecified; F17.210 Nicotine dependence, cigarettes, uncomplicated; Z79.51 Long term (current) use of inhaled steroids; Z87.19 Personal history of other diseases of the digestive system; Z85.828 Personal history of other malignant neoplasm of skin; Z80.0 Family history of malignant neoplasm of digestive organs; Z80.8 Family history of malignant neoplasm of other organs or systems; Z95.5 Presence of coronary angioplasty implant and graft; Z90.49 Acquired absence of other specified parts of digestive tract; Z79.82 Long term (current) use of aspirin; Z79.02 Long term (current) use of antithrombotics/antiplatelets
CPT/HCPCS: 73562

== ENCOUNTER 2018-07-26 08:56 | Emergency (ER) | payer OTHER ==
[~2018-07-26] VITALS: Ht 188 cm; Wt 86.2 kg
[~2018-07-26 08:56] MED LIST changes: +NAPR-1071 PO
[2018-07-26] MEDS ORDERED: PRD20T PO (09:14)
--- NOTE | 2018-07-26 09:14 | ED Upper Extremity ---
General Stated Complaint: L ELBOW PAIN/SWELLING Source: patient Exam Limitations: no limitations History of Present Illness Date Seen by Provider: Jul 26, 2018 Time Seen by Provider: 09:00 Initial Comments Patient presents to ER by private chief complaint of swelling in his left elbow. He does not use his elbow motions. 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 He is right-handed. He had similar swelling in his right knee a few weeks ago that lasted for about a week and went away spontaneously. He was told by his doctor that it was probably arthritis related. He does not use NSAIDs because he's had heart attacks stents and is on Plavix. He has not use any wraps, topical creams. He's had no fevers chills nausea vomiting. No history of gout. Allergies and Home Medications Allergies Coded Allergies: No Known Drug Allergies (Unverified , 03/13/18) Home Medications Albuterol Sulfate 1 Puff Puff, 2 PUFF IH Q4H PRN for SHORTNESS OF BREATH, (Reported) 1 PUFF = 90 MCG Albuterol/Ipratropium 4 Gm Aero, 2 PUFF IH DAILY, (Reported) Amlodipine Besylate 5 Mg Tablet, 5 MG PO DAILY, (Reported) Aspirin 81 Mg Tab.chew, 81 MG PO DAILY, (Reported) Baclofen 10 Mg Tablet, 5 MG PO BID, (Reported) Budesonide/Formoterol Fumarate 10.2 Gm Hfa.aer.ad, 2 PUFF IH BID, (Reported) Carvedilol 6.25 Mg Tablet, 6.25 MG PO BID, (Reported) Clopidogrel Bisulfate 75 Mg Tablet, 75 MG PO DAILY, (Reported) Gabapentin 300 Mg Capsule, 900 MG PO TID, (Reported) Hydrocodone/Acetaminophen 1 Each Tablet, 1 EACH PO Q6H PRN for PAIN-MODERATE Prescribed by: SONIA CRISTOBAL on 05/04/18 1340 Metoprolol Tartrate 25 Mg Tablet, 12.5 MG PO BID, (Reported) Naproxen 500 Mg Tablet, 500 MG PO BID Prescribed by: SONIA CRISTOBAL on 05/04/18 1340 Pravastatin Sodium 20 Mg Tablet, 20 MG PO HS, (Reported) Patient Home Medication List Home Medication List Reviewed: Yes Review of Systems Constitutional: No chills, No diaphoresis EENTM: No hearing loss, No ear pain Respiratory: No cough, No short of breath Cardiovascular: No chest pain, No edema Gastrointestinal: No abdominal pain, No nausea Past Oqbchur-Mnnexi-Wrakgq Hx Patient Social History Alcohol Use: Denies Use Recreational Drug Use: Yes Drug of Choice: MJ Smoking Status: Current Everyday Smoker Type Used: Cigarettes (0.5 ppd) 2nd Hand Smoke Exposure: Yes Recent Foreign Travel: No Contact w/Someone Who Travel: No Recent Hopitalizations: No Immunizations Up To Date Tetanus Booster (TDap): More than 5yrs Date of Pneumonia Vaccine: June 20, 2013 Date of Influenza Vaccine: Nov 27, 2017 Seasonal Allergies Seasonal Allergies: No Past Medical History Surgeries: Yes (EYES, BACK, STENTS X3, NECK, FOOT, BILAT CAROTIDS) Angioplasty, Appendectomy, Coronary Stent, Orthopedic Respiratory: Yes COPD Cardiac: Yes (STENTS X3) Heart Attack, High Cholesterol, Hypertension Neurological: Yes Neuropathy Reproductive Disorders: No Sexually Transmitted Disease: No HIV/AIDS: No Genitourinary: No Gastrointestinal: Yes Hepatitis Musculoskeletal: Yes Degenerate Disk Disease, Arthritis Endocrine: No HEENT: Yes (READING GLASSES) Loss of Vision: Bilateral Hearing Impairment: Hard of Hearing Cancer: Yes Skin Psychosocial: Yes Anxiety, Violent Behavior, Depression Integumentary: Yes (SKIN CANCER-GETS BLISTERS) Recent Skin Changes Blood Disorders: No Adverse Reaction/Blood Tranf: No Family Medical History Cancer 19 FATHER (SKIN) 19 MOTHER Cancer of colon 19 MOTHER Kidney disease 19 FATHER (PASSED KIDNEY FAILURE) Physical Exam Vital Signs Capillary Refill : Height, Weight, BMI Height: 6'2.00" Weight: 190lbs. 0.0oz. 86.032973dp; 24.4 BMI Method:Stated General Appearance: WD/WN, no apparent distress HEENT: PERRL/EOMI, pharynx normal Neck: full range of motion, normal inspection Cardiovascular: regular rate, rhythm Respiratory: no respiratory distress, no accessory muscle use Shoulder: normal inspection, no evidence of injury, normal ROM, soft tissue tenderness (anterior left shoulder) Elbow/Forearm: Left, pain, soft tissue tenderness (left olecranon bursitis), swelling Neurologic/Psychiatric: no motor/sensory deficits, alert, normal mood/affect, oriented x 3 Skin: normal color, warm/dry Progress/Results/Core Measures Progress Progress Note : Time: 09:11 Progress Note Nontraumatic bursitis of the left elbow. We'll encourage topicals, Tylenol, compression, elevation and follow-up with primary care if not improved in 2 weeks. He [facility] Departure Impression Primary Impression: Olecranon bursitis of left elbow Disposition: 01 HOME, SELF-CARE Condition: Stable Departure-Patient Inst. Decision time for Depature: 09:12 Referrals: YUMIKO HERNANDEZ MD (PCP/Family) Primary Care Physician Patient Instructions: Olecranon Bursitis (DC), Olecranon Bursitis Exercises Add. Discharge Instructions: Limit the left elbow to lifting no more than 20 pounds and no repetitive motion. Keep the Juwan wrap around your left elbow until the swelling goes down. Tylenol 1000 mg every 8 hours as necessary for pain. Prednisone 2 tablets daily for the next 5 days. Use topical creams such as icy hot or Capsaicin Oil. If it's not improved in 2 weeks or if you start to have fever, nausea or other worrisome symptoms then you should bring it to the attention of a doctor again. Scripts Prednisone (Prednisone) 20 Mg Tab 40 MG PO DAILY, #10 TAB 0 Refills Prov: KATHIE JARRETT 07/26/18 Work/School Note: Work Release Form Date Seen in the Emergency Department: Jul 26, 2018 Return to Work: Jul 26, 2018 Restrictions: Need Release from Doctor Other Restrictions Listed Below: Left arm: no lifting more than 20 pounds or repetitive motion until 08/04/18 KATHIE JARRETT Jul 26, 2018 09:14
[2018-07-26] MEDS ORDERED: TRAM50TA2 PO (09:20)
[2018-07-26 09:28] VITALS: BP 161/101
== END 2018-07-26 09:28 | disposition home or self-care (01) ==
LOC: EDUNIT# 08:56 → ER 08:56
DX: M70.22 Olecranon bursitis, left elbow (principal); I25.2 Old myocardial infarction; J44.9 Chronic obstructive pulmonary disease, unspecified; E78.00 Pure hypercholesterolemia, unspecified; I10 Essential (primary) hypertension; F41.9 Anxiety disorder, unspecified; F32.9 Major depressive disorder, single episode, unspecified; G62.9 Polyneuropathy, unspecified; F17.210 Nicotine dependence, cigarettes, uncomplicated; Z85.828 Personal history of other malignant neoplasm of skin; Z80.0 Family history of malignant neoplasm of digestive organs; Z90.49 Acquired absence of other specified parts of digestive tract; Z87.19 Personal history of other diseases of the digestive system; Z79.02 Long term (current) use of antithrombotics/antiplatelets; Z95.5 Presence of coronary angioplasty implant and graft; Z79.82 Long term (current) use of aspirin
CPT/HCPCS: 99282

== ENCOUNTER 2018-08-20 12:14 | Emergency (ER) | payer OTHER ==
[~2018-08-20] VITALS: Ht 185.4 cm; Wt 88.5 kg
[2018-08-20] MEDS ORDERED: INDOMETHACIN 25 MG (INDOCIN) CAP PO ONE (13:00)
--- NOTE | 2018-08-20 13:13 | Diagnostic Imaging Report ---
PATIENT HISTORY: Swelling and pain in the left elbow. No known injury. TECHNIQUE: Three views of the left elbow. COMPARISON: None. FINDINGS: No acute fracture or dislocation is seen in the left elbow. Alignment appears normal. Joint spaces are preserved. No significant left elbow joint effusion is seen. There is marked soft tissue swelling posterior to the left elbow. IMPRESSION: 1. Marked soft tissue swelling posterior to the left elbow, may represent olecranon bursitis. No acute osseous abnormality is seen. Dictated by: Dictated on workstation # [id number]
[2018-08-20] MEDS ORDERED: INDO75CA3 PO (13:22)
--- NOTE | 2018-08-20 13:23 | ED Upper Extremity ---
General Chief Complaint: Upper Extremity Stated Complaint: ELBOW SWELLING Nursing Triage Note: RENEE STATES THAT HE WAS HERE FOR THE SAME C/O LEFT ELBOW SWELLING ONE MONTH AGO. HE STATES THAT IT IS NOT IMPROVING AND HE HAS DEVELOPED NUMBNESS AND TINGLING ABOVE AND BELOW HIS ELBOW. PAIN IS 2/10 CURRENTLY. Nursing Sepsis Screen: No Definite Risk History of Present Illness Date Seen by Provider: Aug 20, 2018 Time Seen by Provider: 12:20 Initial Comments 63-year-old male returns for continued left elbow pain. He was seen approximately one month ago for similar symptoms and tried a prednisone pack with no improvement. He has not been taking Tylenol or ibuprofen for his symptoms. He did not follow-up with his primary care provider O. Severity: moderate Pain/Injury Location: left elbow Method of Injury: unknown Allergies and Home Medications Allergies Coded Allergies: No Known Drug Allergies (Unverified , 03/13/18) Home Medications Albuterol Sulfate 1 Puff Puff, 2 PUFF IH Q4H PRN for SHORTNESS OF BREATH, (Reported) 1 PUFF = 90 MCG Albuterol/Ipratropium 4 Gm Aero, 2 PUFF IH DAILY, (Reported) Amlodipine Besylate 5 Mg Tablet, 5 MG PO DAILY, (Reported) Aspirin 81 Mg Tab.chew, 81 MG PO DAILY, (Reported) Baclofen 10 Mg Tablet, 5 MG PO BID, (Reported) Budesonide/Formoterol Fumarate 10.2 Gm Hfa.aer.ad, 2 PUFF IH BID, (Reported) Carvedilol 6.25 Mg Tablet, 6.25 MG PO BID, (Reported) Clopidogrel Bisulfate 75 Mg Tablet, 75 MG PO DAILY, (Reported) Gabapentin 300 Mg Capsule, 900 MG PO TID, (Reported) Hydrocodone/Acetaminophen 1 Each Tablet, 1 EACH PO Q6H PRN for PAIN-MODERATE Prescribed by: SONIA CRISTOBAL on 05/04/18 1340 Indomethacin 75 Mg Capsule.er, 75 MG PO DAILY Prescribed by: ELINOR SMART on 08/20/18 1322 Metoprolol Tartrate 25 Mg Tablet, 12.5 MG PO BID, (Reported) Naproxen 500 Mg Tablet, 500 MG PO BID Prescribed by: SONIA CRISTOBAL on 05/04/18 1340 Pravastatin Sodium 20 Mg Tablet, 20 MG PO HS, (Reported) Prednisone 20 Mg Tab, 40 MG PO DAILY Prescribed by: KATHIE JARRETT on 07/26/18 0914 Tramadol HCl 50 Mg Tablet, 50 MG PO Q6H PRN for PAIN Prescribed by: KATHIE JARRETT on 07/26/18 09 Patient Home Medication List Home Medication List Reviewed: Yes Review of Systems Constitutional: no symptoms reported, see HPI Musculoskeletal: see HPI, joint pain (left elbow) All Other Systems Reviewed Negative Unless Noted: Yes Past Vutabne-Vczutl-Jcpmdg Hx Past Med/Social Hx: Reviewed Nursing Past Med/Soc Hx Patient Social History Alcohol Use: Denies Use Recreational Drug Use: No (tobacco) Drug of Choice: MJ Smoking Status: Current Everyday Smoker Type Used: Cigarettes 2nd Hand Smoke Exposure: Yes Recent Foreign Travel: No Contact w/Someone Who Travel: No Recent Infectious Disease Expo: No Recent Hopitalizations: No Physical Abuse: No Sexual Abuse: No Immunizations Up To Date Tetanus Booster (TDap): More than 5yrs Date of Pneumonia Vaccine: June 20, 2013 Date of Influenza Vaccine: Nov 27, 2017 Seasonal Allergies Seasonal Allergies: No Past Medical History Surgeries: Yes (EYES, BACK, STENTS X3, NECK, FOOT, BILAT CAROTIDS) Angioplasty, Appendectomy, Coronary Stent, Orthopedic Respiratory: Yes COPD Cardiac: Yes (STENTS X3) Heart Attack, High Cholesterol, Hypertension Neurological: Yes Neuropathy Reproductive Disorders: No Sexually Transmitted Disease: No HIV/AIDS: No Genitourinary: No Gastrointestinal: Yes Hepatitis Musculoskeletal: Yes Degenerate Disk Disease, Arthritis Endocrine: No HEENT: Yes (READING GLASSES) Loss of Vision: Bilateral Hearing Impairment: Hard of Hearing Cancer: Yes Skin Psychosocial: Yes Anxiety, Violent Behavior, Depression Integumentary: Yes (SKIN CANCER-GETS BLISTERS) Recent Skin Changes Blood Disorders: No Adverse Reaction/Blood Tranf: No Family Medical History Cancer 19 FATHER (SKIN) 19 MOTHER Cancer of colon 19 MOTHER Kidney disease 19 FATHER (PASSED KIDNEY FAILURE) Physical Exam Vital Signs Vital Signs - First Documented 08/20/18 08/20/18 12:19 13:38 Temp 98.1 Pulse 50 Resp 18 B/P (MAP) 100/67 (78) Pulse Ox 99 Capillary Refill : Less Than 3 Seconds Height, Weight, BMI Height: 6'1.00" Weight: 195lbs. 0oz. 88.643823lj; 24.4 BMI Method:Actual General Appearance: WD/WN, no apparent distress Cardiovascular: normal peripheral pulses, regular rate, rhythm Respiratory: chest non-tender, lungs clear, normal breath sounds Elbow/Forearm: Left, limited ROM (secondary to pain), soft tissue tenderness (olecranon bursa), swelling Neurologic/Tendon: normal sensation, normal motor functions, normal tendon functions Neurologic/Psychiatric: no motor/sensory deficits, alert, normal mood/affect, oriented x 3 Skin: normal color, warm/dry Progress/Results/Core Measures Results/Orders My Orders Orders - ELINOR SMART Elbow, Left, 3 Views (08/20/18 12:50) Indomethacin Capsule (Indocin Capsule) (08/20/18 13:00) Medications Given in ED Current Medications Medications Dose Ordered Sig/Lindsey Route Start Time Stop Time Status Last Admin Dose Admin Indomethacin 25 mg ONCE ONCE PO 08/20/18 13:00 08/20/18 13:01 DC 08/20/18 13:03 25 MG Vital Signs/I&O 08/20/18 08/20/18 12:19 13:38 Temp 98.1 98.1 Pulse 50 51 Resp 18 18 B/P (MAP) 100/67 (78) 104/66 (79) Pulse Ox 99 Blood Pressure Mean: 78 Diagnostic Imaging Diagonstic Imaging: Xray Plain Films/CT/US/NM/MRI: elbow Comments NAME: CRISTI KRISHNAMURTHY [facility] REC#: [id number] PT STATUS: REG ER : 1955 PHYSICIAN: ELINOR SMART ADMIT DATE: 08/20/18/ER Draft Date of Exam:08/20/18 ELBOW, LEFT, 3 VIEWS PATIENT HISTORY: Swelling and pain in the left elbow. No known injury. TECHNIQUE: Three views of the left elbow. COMPARISON: None. FINDINGS: No acute fracture or dislocation is seen in the left elbow. Alignment appears normal. Joint spaces are preserved. No significant left elbow joint effusion is seen. There is marked soft tissue swelling posterior to the left elbow. IMPRESSION: 1. Marked soft tissue swelling posterior to the left elbow, may represent olecranon bursitis. No acute osseous abnormality is seen. Dictated on workstation # [id number] Dict: 08/20/18 1309 Trans: 08/20/18 1312 [id number] Interpreted by: PARVIZ SEVILLA MD Electronically signed by: Reviewed: Reviewed by Me Departure Impression Primary Impression: Olecranon bursitis, left elbow Disposition: 01 HOME, SELF-CARE Condition: Improved Departure-Patient Inst. Decision time for Depature: 13:15 Referrals: YUMIKO HERNANDEZ MD (PCP/Family) Primary Care Physician Patient Instructions: Olecranon Bursitis (DC) Add. Discharge Instructions: Ice to left elbow 20 minutes every 2 hours while awake. [facility] or with a local [facility]opedic surgeon (Dr. Cee, Dr. Galarza or [facility]). Juwan wrap to left elbow. Take prescription as directed. You may take Tylenol 650 mg every 6-8 hours as needed. Return to emergency department for new, urgent health care needs. All discharge instructions reviewed with patient and/or family. Voiced understanding. Scripts Indomethacin (Indomethacin) 75 Mg Capsule.er 75 MG PO DAILY, #30 CAP 0 Refills Prov: ELINOR SMART 08/20/18 ELINOR SMART Aug 20, 2018 13:23
[2018-08-20 13:38] VITALS: BP 104/66
--- OUTSIDE RECORDS SUMMARY | 2018-08-21 01:13 | XMS REPORT | Continuity of Care Document ---
Author Organization Unknown Address Unknown Allergies Active Description Code Type Severity Reaction Onset Reported/Identified Relationship to Patient Clinical Status Yes NO KNOWN DRUG ALLERGIES UNKNOWN NO KNOWN DRUG ALLERG Yes NKANo Known Allergies NKA Miscellaneous Allergy Mild N/A 06/03/2008 Yes No Known Allergies NKMA N/A N/A 10/02/2015 Yes No Known Drug Allergies [id number] Drug Allergy Unknown N/A 03/13/2018 Medications Medication Packaging Start Date Stop Date Route Dosage Sig spironolactone(spironolactone) 10/02/2015 Oral 50 mg 50 mg, Oral, Daily, 0 Refill(s) gabapentin(gabapentin) 10/02/2015 Oral 900 mg 900 mg, Oral, TID, 0 Refill(s) carvedilol(carvedilol 6.25 mg oral tablet) 0.5 tabs 10/02/2015 Oral 3.125 mg 3.125 mg=0.5 tabs, Oral, BID, 0 Refill(s) atorvastatin(atorvastatin) 10/02/2015 Oral 40 mg 40 mg, Oral, Bedtime (once a day), 0 Refill(s) clopidogrel(Plavix) 10/02/2015 Oral 75 mg 75 mg, Oral, Daily, 0 Refill(s) Sodium Chloride 0.9%(Sodium Chloride 0.9% Bolus) 1,000 mL 10/03/2015 10/03/2015 Bolus IV 1,000 mL, Bolus IV, Once ondansetron(Zofran) 2 mL 10/03/2015 10/05/2015 IV Push 4 mg 4 mg=2 mL, [...] Oral, Daily, PRN: Constipation enoxaparin(Lovenox) 0.4 mL 10/03/2015 10/05/2015 SubCutaneous 40 mg 40 mg=0.4 mL, SubCutaneous, Daily atorvastatin(Lipitor) 1 tabs 10/03/2015 10/05/2015 Oral 80 mg 80 mg=1 tabs, Oral, Bedtime (once a day) aspirin(aspirin) 1 tabs 10/03/2015 10/05/2015 Oral 325 mg 325 mg=1 tabs, Oral, Daily folic acid(folic acid) 1 tabs 10/03/2015 10/05/2015 Oral 1 mg 1 mg=1 tabs, Oral, Daily thiamine(thiamine) 1 mL 10/03/2015 10/05/2015 IV Push 100 mg 100 mg=1 mL, IV Push, Daily carvedilol(carvedilol) 1 tabs 10/03/2015 10/05/2015 Oral 3.125 mg 3.125 mg=1 tabs, Oral, BIDWM clopidogrel(Plavix) 1 tabs 10/03/2015 10/05/2015 Oral 75 mg 75 mg=1 tabs, Oral, Daily amLODIPine(amLODIPine) 1 tabs 10/04/2015 10/05/2015 Oral 10 mg 10 mg=1 tabs, Oral, Daily hydrALAZINE(hydrALAZINE) 1 tabs 10/04/2015 10/04/2015 Oral 10 mg 10 mg=1 tabs, Oral, q4hr (scheduled) hydrALAZINE(hydrALAZINE) 0.5 mL 10/04/2015 10/05/2015 IV Push 10 mg 10 mg=0.5 mL, IV Push, q4hr, PRN: Hypertension/High Blood Pressure potassium chloride(potassium chloride 20 mEq oral tablet, extended release) 2 tabs 10/04/2015 10/05/2015 Oral 40 mEq 40 mEq=2 tabs, Oral, QID spironolactone(spironolactone) 2 tabs 10/04/2015 10/05/2015 Oral 50 mg 50 mg=2 tabs, Oral, Bedtime (once a day) gabapentin(gabapentin) 3 caps 10/04/2015 10/05/2015 Oral 900 mg 900 mg=3 caps, Oral, [...] FACP CCDS Ot 414.01 CORONARY ATHEROSCLEROSIS OF [place] CORON 07/27/2012 SAMARA BARRAGAN FACC, JUANITA URRUTIAP CCDS Ot V58.69 OTH MED,LT,CURRENT USE 07/28/2012 [...] ALVAREZ MD Ot 414.01 CORONARY ATHEROSCLEROSIS OF [place] CORON 07/18/2013 DEMETRIO ALVAREZ MD Ot V45.82 [...] OLD MYOCARDIAL INFARCT 07/21/2013 SAMARA BARRAGAN FACC, JUANITA FACP CCDS Ot 414.01 CORONARY ATHEROSCLEROSIS OF [place] CORON 07/21/2013 SAMARA BARRAGAN FACC, ALI FACP CCDS Ot 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 NEC 07/21/2013 SAMARA BARRAGAN FACC, ALI FACP [...] 794.31 ABNORM ELECTROCARDIOGRAM 07/21/2013 SAMARA BARRAGAN FACC, JUANITA FACP CCDS Ot V15.81 HX OF PAST NONCOMPLIANCE 07/21/2013 SAMARA BARRAGAN FACC, ALI FACP CCDS [...] FACP CCDS Ot 414.01 CORONARY ATHEROSCLEROSIS OF [place] CORON 07/31/2013 SAMARA BARRAGAN FACC, JUANITA FACP CCDS Ot 496 CHR AIRWAY OBSTRUCT NEC 07/31/2013 SAMARA BARRAGAN FACC, ALI FACP CCDS Ot 786.50 CHEST PAIN NOS 07/31/2013 SAMARA BARRAGAN FACC, JUANITA URRUTIA CCDS Ot V15.81 HX OF PAST NONCOMPLIANCE 07/31/2013 SAMARA BARRAGAN FACC, JUANITA [facility] CCDS Ot V45.82 PERCUTANEOUS TRANSLUM CORON ANGIOPLASTY 07/31/2013 SAMARA BARRAGAN FACC, JUANITA URRUTIA CCDS Ot V58.69 OT MED,LT,CURRENT USE 09/07/2013 SONIA CRISTOBAL EMAIL DEPLOYMENT SPECIALIST Ot 724.4 LUMBOSACRAL NEURITIS NOS 09/07/2013 SONIA CRISTOBAL EMAIL DEPLOYMENT SPECIALIST Ot 724.5 BACKACHE NOS 10/03/2015 Regina Brewster Admitting G45.9 10/08/2015 Ney Regina Final E78.5 Hyperlipidemia, unspecified 10/08/2015 Ney Regina Final E87.6 Hypokalemia 10/08/2015 Ney Regina Final F12.10 Cannabis abuse, uncomplicated 10/08/2015 Ney Regina Final F15.10 Other stimulant abuse, uncomplicated 10/08/2015 Ney Regina Final G81.91 Hemiplegia, unspecified affecting right dominant side 10/08/2015 Ney Regina Final G92 Toxic encephalopathy 10/08/2015 Ney, Regina Final I10 Essential (primary) hypertension 10/08/2015 Ney Regina Final I25.10 Atherosclerotic heart disease of [place] coronary artery without angina pect 10/08/2015 Ney Regina Final I65.23 Occlusion and stenosis of bilateral carotid arteries 10/08/2015 Ney Regina Final Z95.5 Presence of coronary angioplasty implant and graft 11/18/2015 Phillip Renee F17.210 Nicotine dependence, cigarettes, uncomplicated Ammar, Phillip D 11/18/2015 Amreina, Phillip D I10 Essential (primary) hypertension Ammar, Phillip D 11/18/2015 Amreina, Phillip D I65.23 Occlusion and stenosis of bilateral carotid arteries Ammar, Phillip D 11/19/2015 Amreina, Phillip D F17.210 Nicotine dependence, cigarettes, uncomplicated Ammar, Phillip D 11/19/2015 Ammar, Phillip D I10 Essential (primary) hypertension Ammar, Phillip D 11/19/2015 Amreina, Phillip D I65.23 Occlusion and stenosis of [...] ARM 08/31/2017 SONIA CRISTOBAL APRN Ot Z79.02 SENIOR CARE (CURRENT) USE OF ANTITHROMBOTI 08/31/2017 SONIA CRISTOBAL APRN Ot Z79.52 SENIOR CARE (CURRENT) USE OF SYSTEMIC STER 08/31/2017 SONIA CRISTOBAL APRN Ot Z79.82 SENIOR CARE (CURRENT) USE OF ASPIRIN 08/31/2017 SONIA CRISTOBAL APRN Ot Z80.0 FAMILY HISTORY OF MALIGNANT NEOPLASM OF 08/31/2017 CRISTOBALSONIA APRN Ot Z80.8 FAMILY HISTORY OF MALIGNANT NEOPLASM OF 11/03/2017 CRISTI NICKERSON MD Ot M54.5 LOW BACK PAIN 11/09/2017 CRISTI NICKERSON MD Ot M54.5 LOW BACK PAIN 11/30/2017 RIVERA LAZO MD, Ot B19.20 UNSPECIFIED VIRAL HEPATITIS C WITHOUT HE 11/30/2017 RIVERA LAZO MD Ot F17.210 NICOTINE DEPENDENCE, CIGARETTES, UNCOMPL 11/30/2017 RIVERA LAZO MD Ot F32.9 MAJOR DEPRESSIVE DISORDER, SINGLE EPISOD 11/30/2017 RIVERA LAZO MD, Ot F41.9 ANXIETY DISORDER, UNSPECIFIED 11/30/2017 RIVERA LAZO MD Ot H53.8 OTHER VISUAL DISTURBANCES 11/30/2017 RIVERA LAZO MD, Ot I25.2 OLD MYOCARDIAL INFARCTION 11/30/2017 RIVERA LAZO MD, Ot J44.9 CHRONIC OBSTRUCTIVE PULMONARY DISEASE, U 11/30/2017 RIVERA LAZO MD, Ot M54.2 CERVICALGIA 11/30/2017 RIVERA LAZO MD, Ot R42 DIZZINESS AND GIDDINESS 11/30/2017 RIVERA LAZO MD Ot Z79.02 SENIOR CARE (CURRENT) USE OF ANTITHROMBOTI 11/30/2017 RIVERA LAZO MD Ot Z79.82 INSPECTOR AND ADJUSTER [employer] (CURRENT) USE OF ASPIRIN 11/30/2017 RIVERA LAZO [...] GIDDINESS 12/04/2017 RIVERA LAZO MD Ot Z79.02 SENIOR CARE (CURRENT) USE OF ANTITHROMBOTI 12/04/2017 RIVERA LAZO MD Ot Z79.82 SENIOR CARE (CURRENT) USE OF ASPIRIN 12/04/2017 RIVERA LAZO [...] OTHER SPECIFIED POSTPROCEDURAL STATES 03/06/2018 SONIA CRISTOBAL EMAIL DEPLOYMENT SPECIALIST Ot B19.20 UNSPECIFIED VIRAL HEPATITIS C WITHOUT HE 03/06/2018 SONIA CRISTOBAL EMAIL DEPLOYMENT SPECIALIST Ot F17.210 NICOTINE DEPENDENCE, CIGARETTES, UNCOMPL 03/06/2018 SONIA CRISTOBAL APRN Ot F32.9 MAJOR DEPRESSIVE DISORDER, SINGLE EPISOD 03/06/2018 SONIA CRISTOBAL APRN Ot F41.9 ANXIETY DISORDER, UNSPECIFIED 03/06/2018 SONIA CRISTOBAL APRN Ot I25.2 OLD MYOCARDIAL INFARCTION 03/06/2018 SONIA CRISTOBAL APRN Ot J44.9 CHRONIC OBSTRUCTIVE PULMONARY DISEASE, U 03/06/2018 SONIA CRISTOBAL APRN Ot L02.412 CUTANEOUS ABSCESS OF LEFT AXILLA 03/06/2018 SONIA CRISTOBAL APRN Ot Z79.02 SENIOR CARE (CURRENT) USE OF ANTITHROMBOTI 03/06/2018 SONIA CRISTOBAL APRN Ot Z79.82 INSPECTOR AND ADJUSTER [employer] (CURRENT) USE OF ASPIRIN 03/06/2018 SONIA CRISTOBAL [...] AXILLA 03/08/2018 SONIA CRISTOBAL APRN Ot Z79.02 INSPECTOR AND ADJUSTER [employer] (CURRENT) USE OF ANTITHROMBOTI 03/08/2018 SONIA CRISTOBAL APRN Ot Z79.82 SENIOR CARE (CURRENT) USE OF ASPIRIN 03/08/2018 SONIA CRISTOBAL APRN Ot Z80.0 FAMILY HISTORY OF MALIGNANT NEOPLASM OF 03/08/2018 SONIA CRISTOBAL APRN Ot Z80.8 FAMILY HISTORY OF MALIGNANT NEOPLASM OF 03/08/2018 SONIA CRISTOBAL APRN Ot Z85.828 PERSONAL HISTORY OF OTHER MALIGNANT NEOP 03/08/2018 SONIA CRISTOBAL APRN Ot Z87.19 PERSONAL HISTORY OF OTHER DISEASES OF TH 03/08/2018 SONIA CRISTOBAL APRN Ot Z90.49 ACQUIRED ABSENCE OF OTHER SPECIFIED PART 03/08/2018 SONIA CRISTOBAL APRN Ot Z90.89 ACQUIRED ABSENCE [...] Ot Z01.818 ENCOUNTER FOR OTHER PREPROCEDURAL EXAMIN 05/07/2018 SONIA CRISTOBAL APRN Ot E78.00 PURE HYPERCHOLESTEROLEMIA, UNSPECIFIED 05/07/2018 SONIA CRISTOBAL APRN Ot F12.10 CANNABIS ABUSE, UNCOMPLICATED 05/07/2018 SONIA CRISTOBAL APRN Ot F17.210 NICOTINE DEPENDENCE, CIGARETTES, UNCOMPL 05/07/2018 SONIA CRISTOBAL APRN Ot F32.9 MAJOR DEPRESSIVE DISORDER, SINGLE EPISOD 05/07/2018 SONIA CRISTOBAL APRN Ot F41.9 ANXIETY DISORDER, UNSPECIFIED 05/07/2018 SONIA CRISTOBAL APRN Ot I10 ESSENTIAL (PRIMARY) HYPERTENSION 05/07/2018 SONIA CRISTOBAL APRN Ot I25.2 OLD MYOCARDIAL INFARCTION 05/07/2018 SONIA CRISTOBAL APRN Ot J44.9 CHRONIC OBSTRUCTIVE PULMONARY DISEASE, U 05/07/2018 SONIA CRISTOBAL APRN Ot M17.11 UNILATERAL PRIMARY OSTEOARTHRITIS, RIGHT 05/07/2018 SONIA CRISTOBAL APRN Ot M25.561 PAIN IN RIGHT KNEE 05/07/2018 SONIA CRISTOBAL APRN Ot Z79.02 SENIOR CARE (CURRENT) USE OF ANTITHROMBOTI 05/07/2018 SONIA CRISTOBAL APRN Ot Z79.51 SENIOR CARE (CURRENT) USE OF INHALED STERO 05/07/2018 SONIA CRISTOBAL APRN Ot Z79.82 INSPECTOR AND ADJUSTER [employer] (CURRENT) USE OF ASPIRIN 05/07/2018 SONIA CRISTOBAL APRN Ot Z80.0 FAMILY HISTORY OF MALIGNANT NEOPLASM OF 05/07/2018 SONIA CRISTOBAL APRN Ot Z80.8 FAMILY HISTORY OF MALIGNANT NEOPLASM OF 05/07/2018 SONIA CRISTOBAL APRN Ot Z85.828 PERSONAL HISTORY OF OTHER MALIGNANT NEOP 05/07/2018 SONIA CRISTOBAL APRN Ot Z87.19 PERSONAL HISTORY OF OTHER DISEASES OF TH 05/07/2018 SONIA CRISTOBAL APRN Ot Z90.49 ACQUIRED ABSENCE OF OTHER SPECIFIED PART 05/07/2018 SONIA CRISTOBAL APRN Ot Z95.5 PRESENCE OF CORONARY ANGIOPLASTY IMPLANT 07/30/2018 KATHIE JARRETT MD Ot E78.00 PURE HYPERCHOLESTEROLEMIA, UNSPECIFIED 07/30/2018 KATHIE JARRETT MD Ot F17.210 NICOTINE DEPENDENCE, CIGARETTES, UNCOMPL 07/30/2018 KATHIE JARRETT MD Ot F32.9 MAJOR DEPRESSIVE DISORDER, SINGLE EPISOD 07/30/2018 KATHIE JARRETT MD Ot F41.9 ANXIETY DISORDER, UNSPECIFIED 07/30/2018 KATHIE JARRETT MD Ot G62.9 POLYNEUROPATHY, UNSPECIFIED 07/30/2018 KATHIE JARRETT MD Ot I10 ESSENTIAL (PRIMARY) HYPERTENSION 07/30/2018 KATHIE JARRETT MD Ot I25.2 OLD MYOCARDIAL INFARCTION 07/30/2018 KATHIE JARRETT MD Ot J44.9 CHRONIC OBSTRUCTIVE PULMONARY DISEASE, U 07/30/2018 KATHIE JARRETT MD Ot M25.422 EFFUSION, LEFT ELBOW 07/30/2018 KATHIE JARRETT MD Ot M70.22 OLECRANON BURSITIS, LEFT ELBOW 07/30/2018 KATHIE JARRETT MD Ot Z79.02 INSPECTOR AND ADJUSTER [employer] (CURRENT) USE OF ANTITHROMBOTI 07/30/2018 KATHIE JARRETT MD Ot Z79.82 INSPECTOR AND ADJUSTER [employer] (CURRENT) USE OF ASPIRIN 07/30/2018 KATHIE JARRETT MD Ot Z80.0 FAMILY HISTORY OF MALIGNANT NEOPLASM OF 07/30/2018 KATHIE JARRETT MD Ot Z85.828 PERSONAL HISTORY OF OTHER MALIGNANT NEOP 07/30/2018 KATHIE JARRETT MD Ot Z87.19 PERSONAL HISTORY OF OTHER DISEASES OF 07/30/2018 KATHIE JARRETT MD Ot Z90.49 ACQUIRED ABSENCE OF OTHER SPECIFIED PART 07/30/2018 KATHIE JARRETT MD Ot Z95.5 PRESENCE OF CORONARY ANGIOPLASTY IMPLANT 08/01/2018 KATHIE JARRETT MD Ot E78.00 PURE HYPERCHOLESTEROLEMIA, UNSPECIFIED 08/01/2018 KATHIE JARRETT MD Ot F17.210 NICOTINE DEPENDENCE, CIGARETTES, UNCOMPL 08/01/2018 KATHIE JARRETT MD Ot F32.9 MAJOR DEPRESSIVE DISORDER, SINGLE EPISOD 08/01/2018 KATHIE JARRETT MD Ot F41.9 ANXIETY DISORDER, UNSPECIFIED 08/01/2018 KATHIE JARRETT MD Ot G62.9 POLYNEUROPATHY, UNSPECIFIED 08/01/2018 KATHIE JARRETT MD Ot I10 ESSENTIAL (PRIMARY) HYPERTENSION 08/01/2018 KATHIE JARRETT MD Ot I25.2 OLD MYOCARDIAL INFARCTION 08/01/2018 KATHIE JARRETT MD Ot J44.9 CHRONIC OBSTRUCTIVE PULMONARY DISEASE, U 08/01/2018 KATHIE JARRETT MD Ot M25.422 EFFUSION, LEFT ELBOW 08/01/2018 KATHIE JARRETT MD Ot M70.22 OLECRANON BURSITIS, LEFT ELBOW 08/01/2018 KATHIE JARRETT MD Ot Z79.02 INSPECTOR AND ADJUSTER [employer] (CURRENT) USE OF ANTITHROMBOTI 08/01/2018 KATHIE JARRETT MD Ot Z79.82 SENIOR CARE (CURRENT) USE OF ASPIRIN 08/01/2018 KATHIE JARRETT MD Ot Z80.0 FAMILY HISTORY OF MALIGNANT NEOPLASM OF 08/01/2018 KATHIE JARRETT MD Ot Z85.828 PERSONAL HISTORY OF OTHER MALIGNANT NEOP 08/01/2018 KATHIE JARRETT MD Ot Z87.19 PERSONAL HISTORY OF OTHER DISEASES OF 08/01/2018 KATHIE JARRETT MD Ot Z90.49 ACQUIRED ABSENCE OF OTHER SPECIFIED PART 08/01/2018 LUIZA BARRAGAN, KATHIE Benavides Ot Z95.5 PRESENCE OF CORONARY ANGIOPLASTY IMPLANT Procedures Code Description [place] [address] Duplex scan of extracranial arteries; complete bilateral study Phillip Renee 11/18/2015 [id number] OFFICE/OUTPATIENT VISIT, [facility] 12/09/2015 [id number] Duplex scan of extracranial arteries; complete bilateral [...] NA 5.0-8.0 Protein Negative NA Negative Specific [place] 1.030 NA 1.003-1.030 UA Collection type Clean [...] FINAL CULTURE RESULTS Methicillin Resistant Staphylococcus aureus (Isolate 1) Ampicillin/Sulbactam >16/8 Ampicillin >8 Amoxicillin/K Clavulanate [...] 19:30 Bacteria identification in wound by culture [id number] NRG FREE TEXT EXTERNAL SENSITIVITY REPORTED 09/02 9:15 NRG QUANTITY OF GROWTH Abundant Growth NRG CALL POSITIVES (F1 HELP) CALLED TO ER AND PRINTED 09/02 9:15 BY Serge DUNCAN NR Bacterial susceptibility panel - 08/31/17 19:30 Oxacillin susceptibility test by minimum inhibitory concentration >= NRG Gentamicin susceptibility test by minimum inhibitory concentration <= NRG Clindamycin susceptibility test by minimum inhibitory concentration <= NRG Erythromycin susceptibility test by minimum inhibitory concentration >= NRG Trimethoprim/sulfamethoxazole susceptibility test by minimum inhibitoryconcentration S NRG Vancomycin susceptibility test by minimum inhibitory concentration <= NRG Levofloxacin susceptibility test by minimum inhibitory [...] Automated erythrocyte mean corpuscular hemoglobin concentration measurement (mass/volume) 34 g/dL 32-36 Automated erythrocyte distribution width ratio 14.9 % 10.0- 14.5 Automated blood platelet count (count/volume) 232 10*3/uL [...] Blood monocytes automated count (number/volume) 1.1 10*3 0.0- 1.0 Automated eosinophil count 0.4 10*3/uL 0.0-0.3 Automated blood basophil count (count/volume) 0.0 10*3/uL 0.0-0.1 Capillary blood glucose measurement by glucometer (mass/volume) - 11/30/17 16:46 Capillary blood glucose measurement by glucometer (mass/volume) [...] measurement in platelet poor plasma (mass/volume) - 11/30/17 17:05 Fibrin D-dimer FEU measurement in platelet [...] Serum or plasma aspartate aminotransferase measurement (enzymatic activity/volume) 14 U/L 5-34 Serum or plasma alanine aminotransferase measurement (enzymatic activity/volume) 14 U/L 0-55 Serum or plasma protein measurement (mass/volume) 6.5 g/dL 6.4-8.2 Serum or plasma albumin measurement (mass/volume) 3.7 g/dL 3.2-4.5 CALCIUM CORRECTED 9.6 mg/dL 8.5-10.1 Serum or plasma troponin i.cardiac measurement (mass/volume) - 11/30/17 17:05 Serum or plasma troponin i.cardiac measurement (mass/volume) < ng/mL <0.30 Complete urinalysis with reflex to culture - 11/30/17 17:43 Urine color determination YELLOW NRG Urine clarity determination CLEAR NRG Urine pH measurement by test strip 6 5-9 Specific gravity of urine by test strip 1.020 1.016-1.022 Urine protein assay by test strip, semi-quantitative [...] sediment leukocyte count by microscopy (number/high power field) [HPF] NRG Bacteria detection in urine sediment [...] 11:40 Bacteria identification in wound by culture [id number] NRG FREE TEXT EXTERNAL ID REPORTED 03/07/18 [...] S NRG Minocycline susc ARIANNE <= NRG Radiology Report from [id number] on 10/03/2015 12:05:00 Reason For ExamAMS, possible TIA/strokeREPORTPROCEDURE: MR imaging brain without contrast.TECHNIQUE: Multiplanar, multisequence MR imaging of the brain was performedwithout contrast.INDICATION: Altered mental status.COMPARISON: CT head without contrast 10/02/2015.FINDINGS: Minimal scattered nonspecific punctate T2 hyperintensities in thesupratentorial white matter, presumed leukoaraiosis. No other abnormal signal,restricted water diffusion or hemosiderin disposition. No substantialparenchymal volume loss. Normal morphology of the midline structures,cerebellopontine angle And posterior fossa. No extra-axial fluid collections orhydrocephalus. Normal intracranial flow voids. Polypoid mucosal thickening inleft sphenoid sinus. The orbits are unremarkable. 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 Brain MRI is otherwise unremarkable.Dictated on workstation:[id number] Line PRELIMINARY DICTATED BY: OTIS MONK MDDICTATED DT/TM: 10/03/2015 12:00 Encounters ACCT No. Visit Date/Time Discharge Status Pt. Type Provider Facility Loc./Unit Complaint [id number] 08/20/2018 12:15:00 08/20/2018 13:47:00 DIS Emergency ELINOR SMART [facility] ER ELBOW SWELLING [id number] 07/26/2018 08:56:00 07/26/2018 09:28:00 DIS Outpatient KATHIE JARRETT MD [facility] ER L ELBOW PAIN/SWELLING [id number] 05/04/2018 12:02:00 05/04/2018 13:48:00 DIS Outpatient SONIA CRISTOBAL APRN [facility] ER R KNEE PAIN [id number] 03/19/2018 08:30:00 03/19/2018 23:59:59 CLS Preadmit KARLA DEL RIO MD [facility] ENDO SCREENING [id number] 03/13/2018 14:26:00 03/13/2018 15:33:00 DIS Outpatient KARLA DEL RIO MD [facility] PREOP COLONOSCOPY [id number] 03/06/2018 10:37:00 03/06/2018 11:45:00 DIS Emergency SONIA CRISTOBAL APRN [facility] ER ABSCESS UNDER ARM [id number] 11/30/2017 16:14:00 11/30/2017 19:15:00 DIS Emergency RIVERA LAZO MD [facility] ER DIZZINESS/HEAD AND NECK PRESSURE/L EYE BLURRY VISI [id number] 10/27/2017 11:01:00 11/09/2017 15:41:00 DIS Outpatient CRISTI NICKERSON MD [facility] REHAB LOW BACK PAIN [id number] 08/31/2017 19:03:00 08/31/2017 19:45:00 DIS Emergency SONIA CRISTOBAL EMAIL DEPLOYMENT SPECIALIST [facility] ER R ARM/ARMPIT PAIN [id number] 09/07/2013 15:34:00 09/07/2013 15:48:00 DIS Emergency SONIA CRISTOBAL EMAIL DEPLOYMENT SPECIALIST [facility] ER BACK PAIN, LEFT HIP PAIN [id number] 07/28/2013 15:20:00 07/31/2013 11:30:00 DIS Outpatient SAMARA BARRAGAN FACC, JUANITA FACP CCDS [facility] CATH CHEST PAIN [id number] 07/20/2013 23:43:00 07/21/2013 13:15:00 DIS Inpatient SAMARA BARRAGAN FACC, JUANITA FACP CCDS [facility] ICU CHEST PAIN [id number] 07/17/2013 12:40:00 07/18/2013 07:57:00 DIS Outpatient DEMETRIO ALVAREZ MD [facility] CATH CHEST PAIN [id number] 01/29/2013 22:29:00 01/29/2013 23:49:00 DIS Emergency TRISTAN QUICK DO [facility] ER L HIP PAIN [id number] 07/28/2012 12:24:00 07/28/2012 16:25:00 DIS Emergency HAILY EUGENE MD [facility] ER POST OP SWELLING [id number] 07/26/2012 16:40:00 07/27/2012 12:54:00 DIS Outpatient SAMARA BARRAGAN FACC, JUANITA FACP CCDS [facility] CATH CP [id number] 01/14/2014 14:23:00 Document Registration [id number] 01/14/2014 14:23:00 Document Registration [id number] 01/14/2014 14:23:00 Document Registration [id number] 11/25/2010 23:38:00 Document Registration [id number] 06/25/2009 14:16:00 Document Registration [id number] 11/18/2015 10:22:06 11/18/2015 23:59:59 CLS Outpatient Phillip Renee Silverio [id number] 06/20/2017 21:31:00 06/20/2017 22:24:00 DIS Outpatient Sivan [facility] ER [id number] 06/20/2017 21:48:30 Document Registration [id number] 10/02/2015 21:17:00 10/05/2015 16:19:00 DIS Inpatient Regina Brewster [facility] [place] VCF F7SE TIA, Drug abuse [id number] 10/06/2015 05:18:16 Document Registration [id number] 10/05/2015 05:15:29 Document Registration [id number] 10/04/2015 05:16:06 Document Registration [id number] 10/03/2015 05:17:17 Document Registration [id number] 12/09/2015 10:30:00 Document Registration [id number] 10/02/2015 21:17:00 Document Registration
== END 2018-08-20 13:47 | disposition home or self-care (01) ==
LOC: EDUNIT# 12:14 → ER 12:15
DX: M70.22 Olecranon bursitis, left elbow (principal); J44.9 Chronic obstructive pulmonary disease, unspecified; I10 Essential (primary) hypertension; E78.00 Pure hypercholesterolemia, unspecified; I25.2 Old myocardial infarction; G62.9 Polyneuropathy, unspecified; F32.9 Major depressive disorder, single episode, unspecified; F41.9 Anxiety disorder, unspecified; F17.210 Nicotine dependence, cigarettes, uncomplicated; Z85.828 Personal history of other malignant neoplasm of skin; Z80.0 Family history of malignant neoplasm of digestive organs; Z80.8 Family history of malignant neoplasm of other organs or systems; Z95.5 Presence of coronary angioplasty implant and graft; Z90.49 Acquired absence of other specified parts of digestive tract; Z79.82 Long term (current) use of aspirin; Z79.02 Long term (current) use of antithrombotics/antiplatelets
CPT/HCPCS: 73080

== ENCOUNTER → 2019-03-04 | Outpatient (CLI) | payer OTHER ==
[~2019-03-04] MED LIST changes: +INDO75CA3 PO; +TRM50T PO
--- NOTE | 2019-03-04 09:25 | Diagnostic Imaging Report ---
INDICATION: Chest congestion. TIME OF EXAMINATION: 9:21 AM. COMPARISON: 11/30/2017. FINDINGS: The lungs show some hyperinflation, suggestive of COPD. The heart size is stable. No infiltrates are detected. There is no effusion or pneumothorax. Postop changes in the cervical spine are noted. IMPRESSION: COPD. No acute feature is detected. Dictated by: Dictated on workstation # [id number]
== END ==
LOC: RAD 09:00
PROVIDERS: ATTEND Family Medicine
DX: J44.9 Chronic obstructive pulmonary disease, unspecified (principal); R09.89 Other specified symptoms and signs involving the circulatory and respiratory systems; Z98.890 Other specified postprocedural states
CPT/HCPCS: 71046

== ENCOUNTER 2019-07-31 18:46 | Emergency (ER) | payer OTHER ==
[~2019-07-31] VITALS: Ht 182 cm; Wt 82.0 kg
--- NOTE | 2019-07-31 19:15 | ED Fall/Injury ---
General Stated Complaint: FELL HEAD LAC, ARM PAIN, LEG PAIN, CP Source: patient History of Present Illness Date Seen by Provider: Jul 31, 2019 Time Seen by Provider: 18:55 Initial Comments PT ARRIVES VIA POV FROM HOME, AMBULATES IN ON HIS OWN STATES LESS THAN 30 MINUTES AGO, HE WAS "MOVING SOME STUFF" IN HIS BACKYARD, AND TRIPPED OVER A METAL GATE THAT WAS LAYING ON THE GROUND AND FELL FORWARD, LANDING ON GROUND HIT HIS FOREHEAD/FACE ON GROUND ALSO HIT/LANDED ON HIS CHEST AND ARMS AND RIGHT KNEE STATES HE "ALMOST" LOST CONSCIOUSNESS, BUT DID NOT C/O MILD DIZZINESS NO NAUSEA/VOMITING NO INCREASE IN CHRONIC NECK OR BACK PAIN ( HAS HAD C-SPINE AND L-SPINE SURGERY IN PAST) NO INCREASE IN CHRONIC SHORTNESS OF BREATH AND CHEST "CONGESTION"--HAS COPD AND CONTINUES TO SMOKE 1-2 PPD, PLUS SMOKES MARIJUANA DAILY. NO PARESTHESIAS OR MOTOR DEFICITS C/O PAIN TO RIGHT UPPER CHEST AND SHOULDER AREA C/O PAIN TO RIGHT ELBOW C/O PAIN TO LEFT HAND AND WRIST C/O PAIN TO RIGHT KNEE--HAS ABRASIONS TO RIGHT KNEE C/O PAIN TO FOREHEAD AND HEAD--HAS ABRASIONS TO FOREHEAD PT HAS CAD WITH OK AND STENTS X 3, ALSO BILATERAL CAROTID ENDARTERECTOMY--IS ON BOTH PLAVIX AND ASPIRIN PT STATES HE DID NOT TAKE ANY OF HIS MEDICATIONS TODAY LAST TETANUS VACCINATION 3 YEARS AGO/ 2016 PCP: [facility] [place] [place] [facility] Allergies and Home Medications Allergies Coded Allergies: No Known Drug Allergies (Unverified , 03/13/18) Home Medications Albuterol Sulfate 1 Puff Puff, 2 PUFF IH Q4H PRN for SHORTNESS OF BREATH, (Reported) 1 PUFF = 90 MCG Albuterol/Ipratropium 4 Gm Aero, 2 PUFF IH DAILY, (Reported) Amlodipine Besylate 5 Mg Tablet, 5 MG PO DAILY, (Reported) Aspirin 81 Mg Tab.chew, 81 MG PO DAILY, (Reported) Baclofen 10 Mg Tablet, 5 MG PO BID, (Reported) Budesonide/Formoterol Fumarate 10.2 Gm Hfa.aer.ad, 2 PUFF IH BID, (Reported) Carvedilol 6.25 Mg Tablet, 6.25 MG PO BID, (Reported) Clopidogrel Bisulfate 75 Mg Tablet, 75 MG PO DAILY, (Reported) Gabapentin 300 Mg Capsule, 900 MG PO TID, (Reported) Hydrocodone/Acetaminophen 1 Each Tablet, 1 EACH PO Q6H PRN for PAIN-MODERATE Prescribed by: SONIA CRISTOBAL on 05/04/18 1340 Indomethacin 75 Mg Capsule.er, 75 MG PO DAILY Prescribed by: ELINOR SMART on 08/20/18 1322 Metoprolol Tartrate 25 Mg Tablet, 12.5 MG PO BID, (Reported) Naproxen 500 Mg Tablet, 500 MG PO BID Prescribed by: SONAI CRISTOBAL on 05/04/18 1340 Pravastatin Sodium 20 Mg Tablet, 20 MG PO HS, (Reported) Prednisone 20 Mg Tab, 40 MG PO DAILY Prescribed by: KATHIE JARRETT on 07/26/18 0914 Tapentadol HCl 50 Mg Tablet, 50 MG PO Q8H Prescribed by: TRISTAN QUICK on 07/31/19 211 Tramadol HCl 50 Mg Tablet, 50 MG PO Q6H PRN for PAIN Prescribed by: KATHIE JARRETT on 07/26/18 0920 Patient Home Medication List Home Medication List Reviewed: Yes Review of Systems Review of Systems Constitutional: see HPI; No chills, No diaphoresis; dizziness; No fever, No malaise, No weakness; other (NO FEVER OR RECENT ILLNESS OR KNOWN EXPOSURE TO COVID-19) Eyes: No Symptoms Reported; Denies Blurred Vision Ears, Nose, Mouth, Throat: no symptoms reported; denies nose pain, denies epistaxis, denies mouth pain, denies mouth swelling, denies loose teeth Respiratory: see HPI (NO CHANGE IN CHRONIC DYSPNEA OR "CHEST CONGESTION" ) Cardiovascular: see HPI, chest pain (RIGHT CHEST ); No edema; Hx of Interventi on; No palpitations Gastrointestinal: no symptoms reported; No abdominal pain, No nausea, No vomiting Genitourinary: no symptoms reported Musculoskeletal: see HPI Skin: see HPI (ABRASIONS) Psychiatric/Neurological: See HPI, Headache; Denies Numbness, Denies Paresthesia, Denies Pre-Existing Deficit, Denies Seizure, Denies Tingling, Denies Tremors, Denies Weakness Past Qatzyse-Xjdlvj-Cvppxx Hx Past Med/Social Hx: Reviewed and Corrections made Patient Social History Alcohol Use: Past History (HISTORY OF ABUSE, QUIT 2008--HEAVY /DAILY USE OF WHISKEY) Alcohol Beverage of Choice: Whiskey Recreational Drug Use: Yes (DAILY MARIJUANA USE) Drug of Choice: DAILY MARIJUANA USE Smoking Status: Current Everyday Smoker (1-2 PPD) Type Used: Cigarettes (-2 PPD) 2nd Hand Smoke Exposure: Yes Recent Foreign Travel: No Contact w/Someone Who Travel: No Recent Hopitalizations: No Immunizations Up To Date Tetanus Booster (TDap): Less than 5yrs (2017) Date of Pneumonia Vaccine: June 20, 2013 Date of Influenza Vaccine: Nov 27, 2017 Seasonal Allergies Seasonal Allergies: No Past Medical History Surgeries: Yes (EYES;C+L SPINE;CARDIAC CATHS-STENTS X3;BILAT CAROTID ENDART;FOOT;SKIN CA) Angioplasty, Appendectomy, Cardiac, Coronary Stent, Eye Surgery, Orthopedic, Vascular Surgery Respiratory: Yes COPD Cardiac: Yes (CARDIAC CATHS-STENTS X3; BILAT CAROTID ENDARTERECTOMIES) Coronary Artery Disease, Heart Attack, High Cholesterol, Hypertension, Peripheral Vascular Neurological: Yes Neuropathy Reproductive Disorders: No Sexually Transmitted Disease: No HIV/AIDS: No Genitourinary: No Gastrointestinal: Yes (HEPATITIS C--S/P TREATMENT) Hepatitis Musculoskeletal: Yes (CHRONIC NECK AND BACK PAIN-S/P C-SPINE + L-SPINE SURGERY; L FOOT FX/ORIF) Degenerate Disk Disease, Arthritis, Chronic Back Pain, Fractures Endocrine: No HEENT: Yes (READING GLASSES;EYE SURGERY CHILD) Loss of Vision: Bilateral Hearing Impairment: Hard of Hearing Cancer: Yes Skin Did You Recieve Any Treatments: Yes What Type of Treatment Did You: Surgical Intervention Psychosocial: Yes Anxiety, Violent Behavior, Depression Integumentary: Yes (SKIN CANCER-GETS BLISTERS) Blood Disorders: No Adverse Reaction/Blood Tranf: No Family Medical History Cancer 19 FATHER (SKIN) 19 MOTHER Cancer of colon 19 MOTHER Kidney disease 19 FATHER (PASSED KIDNEY FAILURE) LAST CARDIAC CATH DONE HERE IN 2013--PATENT STENTS Physical Exam Vital Signs Vital Signs - First Documented 07/31/19 19:19 Temp 36.6 Pulse 60 Resp 16 B/P (MAP) 191/85 (120) Pulse Ox 98 O2 Delivery Room Air Capillary Refill : Height, Weight, BMI Height: 6'1.00" Weight: 195lbs. 0oz. [id number]; 24.4 BMI Method:Actual General Appearance: WD/WN, no apparent distress, other (AMBULATES IN ON HIS OWN WITHOUT DIFFICULTY. DOES NOT APPEAR TO BE IN ANY DISCOMFORT OR DISTRESS; REEKS OF CIGARETTES) HEENT: PERRL/EOMI, TMs normal, pharynx normal, other (ABRASIONS AND SMALL SKIN AVULSION TO RIGHT FOREHEAD-NO SWELLING OR HEMATOMA/BRUISING OR ACTIVE BLEEDING. NO PERIORBITAL HEMATOMA OR SWELLING. NO SUBCONJUNCTIVAL HEMORRHAGE OR HYPHEMA. ) Neck: tender lateral, tender midline, other (PT STATES IS NORMALLY TENDER, AND NOT WORSE THAN NORMAL) Cardiovascular: normal peripheral pulses, regular rate, rhythm, no edema, no JVD, no murmur Respiratory: no respiratory distress, no accessory muscle use, rhonchi (DIFFUSE RHONCHI BILATERALLY), other (DIFFUSE RIGHT ANTERIOR CHEST PAIN-MOST TENDERNESS IS UPPER 1/2 OF RIGHT CHEST, NO DEFORMITY, NO EXTERNAL EVIDENCE OF TRAUMA, NO CREPITANCE/SUB Q AIR) Gastrointestinal: normal bowel sounds, soft, no organomegaly, no pulsatile mass; No distended, No guarding, No rebound; tenderness (RUQ TENDERNESS) Back: no CVA tenderness Extremities: normal range of motion, no pedal edema, no calf tenderness, normal capillary refill, other (TENDERNESS TO RIGHT SHOULDER AND RIGHT ELBOW; TENDERNESS AND ABRASION TO RIGHT KNEE; TENDERNESS TO ULNAR ASPECT OF LEFT WRIST AND DORSAL / MEDIAL ASPECT OF LEFT HAND. MOTOR/SENSORY/VASCULAR INTACT. 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 NO ACTIVE BLEEDING OR ECCHYMOSIS NOTED ANYWHERE AT THIS TIME) [place] Coma Score Best Eye Response: (4) Open Spontaneously Best Verbal Response: (5) Oriented Best Motor Response: (6) Obeys Commands [place] Total: 15 Progress/Results/Core Measures Results/Orders Lab Results Laboratory Tests Test 07/31/19 19:16 07/31/19 19:18 Range/Units White Blood Count 10.6 4.3-11.0 10^3/uL Red Blood Count 4.98 4.35-5.85 10^6/uL Hemoglobin 14.6 13.3-17.7 G/DL Hematocrit 43 40-54 % Mean Corpuscular Volume 86 80-99 FL Mean Corpuscular Hemoglobin 29 25-34 PG Mean Corpuscular Hemoglobin Concent 34 32-36 G/DL Red Cell Distribution Width 13.6 10.0-14.5 % Platelet Count 180 130-400 10^3/uL Mean Platelet Volume 10.4 7.4-10.4 FL Neutrophils (%) (Auto) 69 42-75 % Lymphocytes (%) (Auto) 20 12-44 % Monocytes (%) (Auto) 8 0-12 % Eosinophils (%) (Auto) 4 0-10 % Basophils (%) (Auto) 1 0-10 % Neutrophils # (Auto) 7.3 1.8-7.8 X 10^3 Lymphocytes # (Auto) 2.1 1.0-4.0 X 10^3 Monocytes # (Auto) 0.8 0.0-1.0 X 10^3 Eosinophils # (Auto) 0.4 H 0.0-0.3 10^3/uL Basophils # (Auto) 0.1 0.0-0.1 10^3/uL Prothrombin Time 13.8 12.2-14.7 SEC INR Comment 1.0 0.8-1.4 Activated Partial Thromboplast Time 27 24-35 SEC Sodium Level 138 135-145 MMOL/L Potassium Level 3.6 3.6-5.0 MMOL/L Chloride Level 102 98-107 MMOL/L Carbon Dioxide Level 26 21-32 MMOL/L Anion Gap 10 5-14 MMOL/L Blood Urea Nitrogen 8 7-18 MG/DL Creatinine 0.88 0.60-1.30 MG/DL Estimat Glomerular Filtration Rate > 60 BUN/Creatinine Ratio 9 Glucose Level 153 H 70-105 MG/DL Calcium Level 9.1 8.5-10.1 MG/DL Corrected Calcium 9.3 8.5-10.1 MG/DL Magnesium Level 2.0 1.6-2.4 MG/DL Total Bilirubin 1.2 H 0.1-1.0 MG/DL Aspartate Amino Transf (AST/SGOT) 11 5-34 U/L Alanine Aminotransferase (ALT/SGPT) 8 0-55 U/L Alkaline Phosphatase 76 40-136 U/L Total Protein 7.0 6.4-8.2 GM/DL Albumin 3.8 3.2-4.5 GM/DL Amylase Level 43 25-125 U/L Lipase 20 8-78 U/L Serum Alcohol < 10 <10 MG/DL Urine Color YELLOW Urine Clarity CLEAR Urine pH 6.5 5-9 Urine Specific [place] 1.020 1.016-1.022 Urine Protein NEGATIVE NEGATIVE Urine Glucose (UA) NEGATIVE NEGATIVE Urine Ketones NEGATIVE NEGATIVE Urine Nitrite NEGATIVE NEGATIVE Urine Bilirubin NEGATIVE NEGATIVE Urine Urobilinogen 4.0 < = 1.0 MG/DL Urine Leukocyte Esterase 1+ H NEGATIVE Urine RBC (Auto) NEGATIVE NEGATIVE Urine RBC 0-2 /HPF Urine WBC 2-5 /HPF Urine Squamous Epithelial Cells RARE /HPF Urine Crystals NONE /LPF Urine Bacteria TRACE /HPF Urine Casts NONE /LPF Urine Mucus SMALL H /LPF Urine Culture Indicated NO Urine Opiates Screen NEGATIVE NEGATIVE Urine Oxycodone Screen NEGATIVE NEGATIVE Urine Methadone Screen NEGATIVE NEGATIVE Urine Propoxyphene Screen NEGATIVE NEGATIVE Urine Barbiturates Screen NEGATIVE NEGATIVE Ur Tricyclic Antidepressants Screen NEGATIVE NEGATIVE Urine Phencyclidine Screen NEGATIVE NEGATIVE Urine Amphetamines Screen NEGATIVE NEGATIVE Urine Methamphetamines Screen NEGATIVE NEGATIVE Urine Benzodiazepines Screen NEGATIVE NEGATIVE Urine Cocaine Screen NEGATIVE NEGATIVE Urine Cannabinoids Screen POSITIVE H NEGATIVE My Orders Orders - TRISTAN QUICK DO Ed Iv/Invasive Line Start (07/31/19:) Ekg Tracing (07/31/19:07) Monitor-Rhythm Ecg Trace Only (07/31/19:07) Ct Head/Face/Cervical Wo (07/31/19:07) Ct Thoracic/Lumbar Spine Wo (07/31/19:07) Chest 1 View, Ap/Pa Only (07/31/19:07) Shoulder, Right, 3 Views (07/31/19:07) Elbow, Right, 3 Views (07/31/19:07) Wrist, Left, 3 Views Or More (07/31/19:07) Hand, Left, 3 Views (07/31/19:07) Knee, Right, 3 Views (07/31/19 19:07) Pelvis (07/31/19 19:07) Alcohol (07/31/19:07) Amylase (07/31/19:07) Cbc With Automated Diff (07/31/19:07) Comprehensive Metabolic Panel (07/31/19:07) Drug Screen Stat (Urine) (07/31/19:07) Lipase (07/31/19:07) Magnesium (07/31/19:07) Protime With Inr (6/10/20 19:07) Partial Thromboplastin Time (07/31/19 19:07) Ua Culture If Indicated (07/31/19 19:07) Cervical Collar (07/31/19 19:07) Ct Chest/Abdomen/Pelvis W (07/31/19 19:07) Iohexol Injection (Omnipaque 350 Mg/Ml 1 (07/31/19 20:15) Received Contrast (Hold Metformin- Contr (07/31/19 20:15) Sodium Chloride Flush (Catheter Flush Sy (07/31/19 20:15) Ns (Ivpb) (Sodium Chloride 0.9% Ivpb Bag (07/31/19 20:15) Hydralazine Injection (Apresoline Inject (07/31/19 21:15) Rx-Mupirocin 2% Oint (Rx-Bactroban) (07/31/19 21:02) Wound Dressing-Ed (07/31/19 21:02) Medications Given in ED Current Medications Medications Dose Ordered Sig/Lindsey Route Start Time Stop Time Status Last Admin Dose Admin Hydralazine HCl 10 mg ONCE ONCE IV 07/31/19 21:15 07/31/19 21:16 DC 07/31/19 21:11 10 MG Iohexol 100 ml ONCE ONCE IV 07/31/19 20:15 07/31/19 20:16 DC 07/31/19 20:30 100 ML Sodium Chloride 10 ml NEEDED PRN IV 07/31/19 20:15 07/31/19 20:30 10 ML Sodium Chloride 100 ml ONCE ONCE IV 07/31/19 20:15 07/31/19 20:16 DC 07/31/19 20:30 80 ML Vital Signs/I&O 07/31/19 07/31/19 07/31/19 19:19 21:00 21:18 Temp 36.6 Pulse 60 71 Resp 16 16 18 B/P (MAP) 191/85 (120) 199/103 (135) 166/91 Pulse Ox 98 75 97 O2 Delivery Room Air Room Air Room Air Progress Progress Note : Progress Note GIVEN HYDRALAZINE FOR ELEVATED BLOOD PRESSURE ( PT STATES HE HAS NOT TAKEN ANY OF HIS MEDICATIONS TODAY) --BP DOWN AT DISMISSAL OTHERWISE UNEVENTFUL ER STAY NO COMPLAINTS OF ANY KIND DURING REMAINDER OF ER STAY, TEXTING ON CELL PHONE THROUGHOUT ENTIRE STAY--REFUSES TO PUT PHONE DOWN REFUSES TRAMADOL--STATES HE USED TO TAKE IT, PRESCRIBED BY [facility]--STATES "IT MAKES ME FEEL LIKE I'M ON SPEED" STATES HE TAKES GABAPENTIN FOR PAIN AND STATES HE CANT AFFORD ANY PRESCRIPTIONS OF ANY KIND. [facility] Initial ECG Impression Date: Jul 31, 2019 Initial ECG Impression Time: 19:10 Initial ECG Rate: 57 Initial ECG Rhythm: Normal Sinus Diagnostic Imaging Comments CT HEAD/MAXILLOFACIALS/CERVICAL SPINE--PER RADIOLOGIST REPORT AT 2039 IMPRESSION: 1. CT of the head shows no acute abnormality. 2. CT of the facial bones shows a small amount of air in the medial aspect of the orbit adjacent to the lamina papyracea and there may be an occult fracture at this site with no other acute abnormality of the facial bones seen. 3. CT of the cervical spine shows changes of prior surgery. There is stenosis at C5-C6. No acute abnormality is seen. CT THORACIC AND LUMBAR SPINE--PER RADIOLOGIST REPORT AT 2041 FINDINGS: There is normal height and alignment of the thoracolumbar vertebral bodies. There is disc space narrowing and spondylosis at T7-T8. There is disc space narrowing and spondylosis of all lumbar levels. There has been prior laminectomy at L3-L4 and L4-L5. No fracture or other acute abnormality is evident at any level. IMPRESSION: There are degenerative changes present with no acute abnormality seen. CT CHEST/ABDOMEN/PELVIS--PER RADIOLOGIST REPORT AT 2044 FINDINGS: CT chest: The lungs are clear. There is no effusion or pneumothorax. There is no mediastinal mass or hemorrhage. There is no aortic dissection. There is no acute bony abnormality. CT abdomen and pelvis: Liver is normal. There is cholelithiasis with no acute cholecystitis evident. The bile ducts are not dilated. The spleen, pancreas and adrenals are normal. The right kidney is normal. There is a 15 mm lesion in the medial aspect of the right mid kidney. This does not appear to be a simple cyst. This may show some enhancement and could be a small neoplasm. There is no hydronephrosis on either side. The ureters and bladder are normal. No acute bowel abnormality is seen. There is no free intraperitoneal air or fluid. No retroperitoneal hemorrhage is seen. There are degenerative changes of the spine with no acute bony abnormality seen. IMPRESSION: CT of the chest, abdomen and pelvis shows no acute abnormality. There is a 15 mm nodule on the left kidney. This does not appear to be a simple cyst and may be a solid lesion. PLAIN FILM XRAYS--ALL PER RADIOLOGIST REPORTS AT 2057 CXR--NO ACUTE PROCESS PELVIS XRAY--NO ACUTE PROCESS LEFT HAND--NO ACUTE PROCESS LEFT WRIST--NO ACUTE PROCESS RIGHT SHOULDER--NO ACUTE PROCESS RIGHT ELBOW--NO ACUTE PROCESS RIGHT KNEE--NO ACUTE PROCESS Reviewed: Reviewed by Me Departure Impression Primary Impression: S/P FALL FROM STANDING Additional Impressions: CLOSED, NONDISPLACED FRACTURE OF RIGHT ORBIT Facial abrasion Minor head injury without loss of consciousness Chronic neck and back pain Chest wall contusion Abdominal contusion RIGHT ELBOW AND SHOULDER CONTUSION Contusion of multiple sites of left hand and wrist RIGHT KNEE CONTUSION AND ABRASION RENAL MASS NOTED ON CT Uncontrolled hypertension Marijuana abuse, continuous COPD (chronic obstructive pulmonary disease) Disposition: 01 HOME, SELF-CARE Condition: Stable Departure-Patient Inst. Referrals: YUMIKO HERNANDEZ MD (PCP/Family) Primary Care Physician Patient Instructions: Blunt Abdominal Trauma (DC), Blunt Chest Trauma (DC), CHEST CONTUSION, Contusion (DC), Facial Fracture (DC), High Blood Pressure (DC), Marijuana Use and Addiction (DC), Skin Abrasions (DC), Wound Care (DC) Add. Discharge Instructions: CLEAN WOUNDS TWICE A DAY WITH ANTIBACTERIAL SOAP AND WATER, APPLY ANTIBIOTIC OI NTMENT TWICE A DAY APPLY ICE TO SORE AREAS AT 20 MINUTE INTERVALS ACTIVITIES TOLERATED TYLENOL NEEDED FOR PAIN TAKE AL OF YOUR MEDICATIONS PRESCRIBED--DO NOT MISS DOSES FOLLOW UP WITH YOUR DR IN 3-5 DAYS FOR FURTHER CARE AND FOLLOW UP ON ABNORMAL FINDINGS ON CT Scripts Tapentadol HCl (Nucynta) 50 Mg Tablet 50 MG PO Q8H for Pain, #10 TAB Prov: TRISTAN QUICK DO 07/31/19 TRISTAN QUICK DO Jul 31, 2019 19:15
[2019-07-31 19:22] LABS: BASOPHILS # (AUTO) 0.1 10^3/uL (0.0-0.1); BASOPHILS % (AUTO) 1 % (0-10); EOSINOPHILS # (AUTO) 0.4 10^3/uL (0.0-0.3); EOSINOPHILS % (AUTO) 4 % (0-10); HEMATOCRIT 43 % (40-54); HEMOGLOBIN 14.6 G/DL (13.3-17.7); LYMPHOCYTES # (AUTO) 2.1 X 10^3 (1.0-4.0); LYMPHOCYTES % (AUTO) 20 % (12-44); MEAN CORPUSCULAR HEMOGLOBIN 29 PG (25-34); MEAN CORPUSCULAR HGB CONC 34 G/DL (32-36); MEAN CORPUSCULAR VOLUME 86 FL (80-99); MEAN PLATELET VOLUME 10.4 FL (7.4-10.4); MONOCYTES # (AUTO) 0.8 X 10^3 (0.0-1.0); MONOCYTES % (AUTO) 8 % (0-12); NEUTROPHILS # (AUTO) 7.3 X 10^3 (1.8-7.8); NEUTROPHILS % (AUTO) 69 % (42-75); PLATELET COUNT 180 10^3/uL (130-400); RED CELL DISTRIBUTION WIDTH 13.6 % (10.0-14.5); WHITE BLOOD COUNT 10.6 10^3/uL (4.3-11.0)
[2019-07-31 19:27] LABS: BILIRUBIN,URINE NEGATIVE (NEGATIVE); CLARITY,URINE CLEAR; COLOR,URINE YELLOW; GLUCOSE, URINE (UA) NEGATIVE (NEGATIVE); KETONES,URINE NEGATIVE (NEGATIVE); LEUKOCYTE ESTERASE ,URINE 1+ (NEGATIVE); NITRITE,URINE NEGATIVE (NEGATIVE); PH,URINE 6.5 (5-9); PROTEIN,URINE NEGATIVE (NEGATIVE)
[2019-07-31 19:31] LABS: ALBUMIN 3.8 GM/DL (3.2-4.5)
[2019-07-31 19:32] LABS: CHLORIDE 102 MMOL/L (98-107); POTASSIUM 3.6 MMOL/L (3.6-5.0); PROTHROMBIN TIME PATIENT 13.8 SEC (12.2-14.7); SODIUM 138 MMOL/L (135-145)
[2019-07-31 19:33] LABS: BACTERIA,URINE TRACE /HPF; RBC,URINE 0-2 /HPF; SQUAMOUS EPITHELIAL CELL,UR RARE /HPF
[2019-07-31 19:33] LABS: AMYLASE 43 U/L (25-125); CALCIUM 9.1 MG/DL (8.5-10.1)
[2019-07-31 19:34] LABS: GLUCOSE 153 MG/DL (70-105)
[2019-07-31 19:35] LABS: CARBON DIOXIDE 26 MMOL/L (21-32)
[2019-07-31 19:36] LABS: BILIRUBIN,TOTAL 1.2 MG/DL (0.1-1.0)
[2019-07-31 19:37] LABS: ALKALINE PHOSPHATASE 76 U/L (40-136)
[2019-07-31 19:38] LABS: AMPHETAMINE SCREEN, URINE NEGATIVE (NEGATIVE); BARBITURATE SCREEN URINE NEGATIVE (NEGATIVE); BENZODIAZEPINES SCREEN URINE NEGATIVE (NEGATIVE); CANNABINOID SCREEN, URINE POSITIVE (NEGATIVE); COCAINE SCREEN URINE NEGATIVE (NEGATIVE); METHADONE STAT NEGATIVE (NEGATIVE); METHAMPHETAMINE SCREEN URINE S NEGATIVE (NEGATIVE); OPIATE SCREEN URINE NEGATIVE (NEGATIVE); OXYCODONE STAT NEGATIVE (NEGATIVE); PROPOXYPHENE STAT NEGATIVE (NEGATIVE); TRICYCLIC ANTIDEPRESSANTS SCRE NEGATIVE (NEGATIVE)
[2019-07-31 19:38] LABS: CREATININE SERUM 0.88 MG/DL (0.60-1.30); GFR ESTIMATED > 60
[2019-07-31 19:39] LABS: BUN/CREATININE RATIO 9
[2019-07-31 19:41] LABS: ALANINE AMINOTRANSFERASE 8 U/L (0-55)
[2019-07-31 19:42] LABS: LIPASE 20 U/L (8-78)
--- NOTE | 2019-07-31 20:14 | Diagnostic Imaging Report ---
INDICATION: Trauma, left hand pain. EXAMINATION: Three views of the left hand. FINDINGS: No fracture, dislocation or other abnormality. IMPRESSION: Normal left hand. Dictated by: Dictated on workstation # [id number]
[2019-07-31] MEDS ORDERED: NS 100 ML (IVPB) BAG IV ONE (20:15)
[2019-07-31] MEDS ORDERED: CATHETER FLUSH 10 ML SYR IV PRN (20:15)
[2019-07-31] MEDS ORDERED: IOHEXOL 350 MG/ML 100 ML (OMNIPAQUE 350) VIAL IV ONE (20:15)
[2019-07-31] MEDS ORDERED: HOLD METFORMIN - RECEIVED CONTRAST 20 ML VIAL IV SCH (20:15)
--- NOTE | 2019-07-31 20:15 | Diagnostic Imaging Report ---
INDICATION: Fall, right elbow pain. EXAMINATION: Two views of the right elbow were obtained. FINDINGS: No fracture, dislocation or other acute bony abnormality. There is spurring at the insertion of the triceps tendon on the olecranon. There is no joint fluid evident. IMPRESSION: No acute abnormality is seen. Dictated by: Dictated on workstation # [id number]
--- NOTE | 2019-07-31 20:15 | Diagnostic Imaging Report ---
INDICATION: Fall, left wrist pain. EXAMINATION: Three views of the left wrist. FINDINGS: No fracture, dislocation or other abnormality. IMPRESSION: Normal left wrist. Dictated by: Dictated on workstation # [id number]
--- NOTE | 2019-07-31 20:16 | Diagnostic Imaging Report ---
INDICATION: Fall, right shoulder pain. EXAMINATION: Three views of the right shoulder. FINDINGS: No fracture, dislocation or other acute abnormality. There are mild degenerative changes present. IMPRESSION: No acute abnormality is seen. Dictated by: Dictated on workstation # [id number]
--- NOTE | 2019-07-31 20:30 | Diagnostic Imaging Report ---
PROCEDURE: CT thoracic and lumbar spine without contrast. TECHNIQUE: Multiple contiguous axial images were obtained through the thoracic and lumbar spine without the use of intravenous contrast. Sagittal and coronal reformations were then performed. All CT scans use one or more of the following dose optimizing techniques: automated exposure control, MA and/or KvP adjustment based on patient size and exam type or iterative reconstruction. INDICATION: Fall. Back pain. FINDINGS: There is normal height and alignment of the thoracolumbar vertebral bodies. There is disc space narrowing and spondylosis at T7-T8. There is disc space narrowing and spondylosis of all lumbar levels. There has been prior laminectomy at L3-L4 and L4-L5. No fracture or other acute abnormality is evident at any level. IMPRESSION: There are degenerative changes present with no acute abnormality seen. Dictated by: Dictated on workstation # [id number]
--- NOTE | 2019-07-31 20:36 | Diagnostic Imaging Report ---
PROCEDURE: CT head, face and cervical spine without contrast. TECHNIQUE: Multiple contiguous axial images were obtained through the head, neck, and facial bones without the use of intravenous contrast. Sagittal and coronal reformations through the cervical spine and facial bones were also performed. Auto Exposure Controls were utilized during the CT exam to meet ALARA standards for radiation dose reduction. INDICATION: Fall. Laceration above the right eye. The ventricles are normal in size, shape and position. There is no acute parenchymal hemorrhage, edema or mass. There is focal area of encephalomalacia in the right posterior parietal lobe. There is no extra-axial mass or hemorrhage. There is no skull fracture. There is a small amount of air along the medial aspect of the orbit adjacent to the lamina papyracea. An actual fracture is not seen. No other intraorbital abnormality is seen on either side. No intraocular abnormality is seen. The paranasal sinuses are well aerated with no air-fluid level seen. The septum is not deviated. There is normal height and alignment of the cervical vertebral bodies. There are changes of prior surgery at the C4-C5 level. There is disc space narrowing and spondylosis at C5-C6 which is causing some spinal canal stenosis. No fracture or other acute abnormality is seen. IMPRESSION: 1. CT of the head shows no acute abnormality. 2. CT of the facial bones shows a small amount of air in the medial aspect of the orbit adjacent to the lamina papyracea and there may be an occult fracture at this site with no other acute abnormality of the facial bones seen. 3. CT of the cervical spine shows changes of prior surgery. There is stenosis at C5-C6. No acute abnormality is seen. Dictated by: Dictated on workstation # [id number]
--- NOTE | 2019-07-31 20:41 | Diagnostic Imaging Report ---
PROCEDURE: CT chest, abdomen, and pelvis with contrast. TECHNIQUE: Multiple contiguous axial images were obtained through the chest, abdomen, and pelvis after the administration of intravenous contrast. Auto Exposure Controls were utilized during the CT exam to meet ALARA standards for radiation dose reduction. INDICATION: Fall. Right-sided pain. FINDINGS: CT chest: The lungs are clear. There is no effusion or pneumothorax. There is no mediastinal mass or hemorrhage. There is no aortic dissection. There is no acute bony abnormality. CT abdomen and pelvis: Liver is normal. There is cholelithiasis with no acute cholecystitis evident. The bile ducts are not dilated. The spleen, pancreas and adrenals are normal. The right kidney is normal. There is a 15 mm lesion in the medial aspect of the right mid kidney. This does not appear to be a simple cyst. This may show some enhancement and could be a small neoplasm. There is no hydronephrosis on either side. The ureters and bladder are normal. No acute bowel abnormality is seen. There is no free intraperitoneal air or fluid. No retroperitoneal hemorrhage is seen. There are degenerative changes of the spine with no acute bony abnormality seen. IMPRESSION: CT of the chest, abdomen and pelvis shows no acute abnormality. There is a 15 mm nodule on the left kidney. This does not appear to be a simple cyst and may be a solid lesion. Dictated by: Dictated on workstation # [id number]
--- NOTE | 2019-07-31 20:52 | Diagnostic Imaging Report ---
INDICATION: Fall, pelvic pain. EXAMINATION: Single view of the pelvis was obtained. FINDINGS: No fracture, dislocation or other abnormality. IMPRESSION: Normal pelvis. Dictated by: Dictated on workstation # [id number]
--- NOTE | 2019-07-31 20:53 | Diagnostic Imaging Report ---
INDICATION: Fall, right knee pain. EXAMINATION: Three views of the right knee were obtained. FINDINGS: No fracture, dislocation or other acute bony abnormality. IMPRESSION: No acute abnormality is seen with no change from 05/04/2018. Dictated by: Dictated on workstation # [id number]
--- NOTE | 2019-07-31 20:53 | Diagnostic Imaging Report ---
INDICATION: Fall. EXAMINATION: Single view of the chest. FINDINGS: Normal heart size and vascularity. The lungs are clear. There is no effusion or pneumothorax. There is no bony abnormality. IMPRESSION: No acute abnormality is seen. Dictated by: Dictated on workstation # [id number]
--- NOTE | 2019-07-31 20:58 | NUR ---
Cspine cleared at this time; C-collar removed by .
[2019-07-31 21:00] VITALS: BP 199/103
[2019-07-31] MEDS ORDERED: RX-MUPIROCIN (BACTROBAN) 2% OINT 22 GM TUBE TOP STA (21:02)
[2019-07-31] MEDS ORDERED: TAPE50TA2 PO (21:15)
[2019-07-31] MEDS ORDERED: hydrALAZINE (APESOLINE) 20 MG/ML VIAL IV ONE (21:15)
[2019-07-31 21:18] VITALS: BP 166/91
== END 2019-07-31 21:28 | disposition home or self-care (01) ==
LOC: EDUNIT# 18:46 → ER 18:47
DX: S09.90XA Unspecified injury of head, initial encounter (principal); S02.31XA Fracture of orbital floor, right side, initial encounter for closed fracture; S20.211A Contusion of right front wall of thorax, initial encounter; S30.1XXA Contusion of abdominal wall, initial encounter; S50.01XA Contusion of right elbow, initial encounter; S60.222A Contusion of left hand, initial encounter; S60.212A Contusion of left wrist, initial encounter; S80.01XA Contusion of right knee, initial encounter; S00.81XA Abrasion of other part of head, initial encounter; S40.211A Abrasion of right shoulder, initial encounter; G89.29 Other chronic pain; M54.2 Cervicalgia; M54.9 Dorsalgia, unspecified; R93.89 Abnormal findings on diagnostic imaging of other specified body structures; N28.89 Other specified disorders of kidney and ureter; I10 Essential (primary) hypertension; F12.10 Cannabis abuse, uncomplicated; J44.9 Chronic obstructive pulmonary disease, unspecified; I25.2 Old myocardial infarction; I25.10 Atherosclerotic heart disease of native coronary artery without angina pectoris; E78.00 Pure hypercholesterolemia, unspecified; G62.9 Polyneuropathy, unspecified; F17.210 Nicotine dependence, cigarettes, uncomplicated; Z95.5 Presence of coronary angioplasty implant and graft; Z85.828 Personal history of other malignant neoplasm of skin; Z79.82 Long term (current) use of aspirin; Z79.02 Long term (current) use of antithrombotics/antiplatelets; Z79.52 Long term (current) use of systemic steroids; W01.198A Fall on same level from slipping, tripping and stumbling with subsequent striking against other object, initial encounter; Y92.007 Garden or yard of unspecified non-institutional (private) residence as the place of occurrence of the external cause
CPT/HCPCS: 36415; 70450; 70486; 71045; 71260; 72125; 72128; 72131; 72170; 73030; 73080; 73110; 73130; 73562; 74177; 80053; 80306; 80320; 81000; 82150; 83690; 83735; 85025; 85610; 85730; 93005; 93041

== ENCOUNTER 2020-01-20 15:15 | Inpatient (IN) | payer OTHER ==
[~2020-01-20] VITALS: Ht 182.9 cm; Wt 80.0 kg
[~2020-01-20 15:15] MED LIST changes: +AMLO-250 PO; -AMLO5TAB9 PO; +TAPE50TA2 PO
--- NOTE | 2020-01-20 16:14 | ED Neurological Problem ---
General Chief Complaint: General Problems/Pain Stated Complaint: SOB,COUGH,STROKE LIKE SYMPTOMS Nursing Triage Note: ARRIVED VIA AMB TO ROOM 05 WITH GENERALIZED WEAKNESS ET MORE SO ON THE RIGHT FOR X2 WEEKS OFF AND ON BUT CAME BACK YESTERDAY THAT WAS WORSE. PT DOES HAVE SOA AND A COUGH THAT HE SAYS IS NOT DIFFERENT ET HAS A HX OF COPD. Nursing Sepsis Screen: No Definite Risk Source: patient Exam Limitations: no limitations History of Present Illness Date Seen by Provider: Jan 20, 2020 Time Seen by Provider: 15:32 Initial Comments Patient arrives ER by private conveyance with chief complaint of cough shortness of breath no worse than usual on his baseline COPD still responding to inhalers as well as intermittent weakness in his all 4 extremities over the past several weeks. He's been told by his primary care doctor he has peripheral neuropathy. He follows with the [facility] Arnold at [place], [place] and has had surgery on his neck in [facility]. He's had no further trauma. He is not on blood thinners. He claims he has had a history of TIAs but he has no residual symptoms. He said the most recent bout was starting yesterday afternoon about this time he started having some right-sided weakness followed by left-sided weakness in his upper extremities and both of his legs are weak. He says he has an unsteady gait. He denies any falls or other trauma. He's not having dysuria possible control of bowel or bladder, diarrhea fever. He does have a productive cough. He has not been checked for flu or COVID-19. He has an appointment within the next couple days with his primary care doctor to discuss his weakness. Patient admits he had visual changes yesterday lasting about 15 seconds mostly in his left eye he had blurry spots of color. He claims he was having some blindness in his left eye and is not having any symptoms now. Allergies and Home Medications Allergies Coded Allergies: No Known Drug Allergies (Unverified , 03/13/18) Home Medications Albuterol Sulfate 1 Puff Puff, 2 PUFF IH Q4H PRN for SHORTNESS OF BREATH, (Reported) 1 PUFF = 90 MCG Albuterol/Ipratropium 4 Gm Aero, 2 PUFF IH DAILY, (Reported) Amlodipine Besylate 5 Mg Tablet, 5 MG PO DAILY, (Reported) Aspirin 81 Mg Tab.chew, 81 MG PO DAILY, (Reported) Baclofen 10 Mg Tablet, 5 MG PO BID, (Reported) Budesonide/Formoterol Fumarate 10.2 Gm Hfa.aer.ad, 2 PUFF IH BID, (Reported) Carvedilol 6.25 Mg Tablet, 6.25 MG PO BID, (Reported) Clopidogrel Bisulfate 75 Mg Tablet, 75 MG PO DAILY, (Reported) Gabapentin 300 Mg Capsule, 900 MG PO TID, (Reported) Hydrocodone/Acetaminophen 1 Each Tablet, 1 EACH PO Q6H PRN for PAIN-MODERATE Prescribed by: SONIA CRISTOBAL on 05/04/18 1340 Indomethacin 75 Mg Capsule.er, 75 MG PO DAILY Prescribed by: ELINOR SMART on 08/20/18 1322 Metoprolol Tartrate 25 Mg Tablet, 12.5 MG PO BID, (Reported) Naproxen 500 Mg Tablet, 500 MG PO BID Prescribed by: SONIA CRISTOBAL on 05/04/18 1340 Pravastatin Sodium 20 Mg Tablet, 20 MG PO HS, (Reported) Prednisone 20 Mg Tab, 40 MG PO DAILY Prescribed by: BASHIR RICKETTS on 07/26/18 0914 Tapentadol HCl 50 Mg Tablet, 50 MG PO Q8H Prescribed by: TRISTAN QUICK on 07/31/192115 Tramadol HCl 50 Mg Tablet, 50 MG PO Q6H PRN for PAIN Prescribed by: BASHIR RICKETTS on 07/26/18 0920 Patient Home Medication List Home Medication List Reviewed: Yes Review of Systems Review of Systems Constitutional: No chills, No diaphoresis Eyes: See HPI; Denies Blindness Ears, Nose, Mouth, Throat: denies ear pain, denies ear discharge Respiratory: cough, phlegm, short of breath (he claims it is at baseline) Cardiovascular: No chest pain; Hx of Intervention (multiple stents); No palpitations, No syncope Gastrointestinal: No abdominal pain, No nausea, No vomiting Genitourinary: No discharge, No dysuria, No frequency Musculoskeletal: No back pain, No joint pain Skin: No pruritus, No rash All Other Systems Reviewed Negative Unless Noted: Yes Past Hurcwht-Pwisph-Ifqscu Hx Patient Social History Alcohol Use: Denies Use Alcohol Beverage of Choice: Whiskey Recreational Drug Use: Yes (POT) Drug of Choice: DAILY MARIJUANA USE Smoking Status: Current Everyday Smoker Type Used: Cigarettes 2nd Hand Smoke Exposure: Yes Recent Foreign Travel: No Contact w/Someone Who Travel: No Recent Infectious Disease Expo: No Recent Hopitalizations: No Immunizations Up To Date Tetanus Booster (TDap): Less than 5yrs Date of Pneumonia Vaccine: June 20, 2013 Date of Influenza Vaccine: Nov 27, 2017 Seasonal Allergies Seasonal Allergies: No Past Medical History Surgeries: Yes (EYES;C+L SPINE;CARDIAC CATHS-STENTS X3;BILAT CAROTID ENDART;FOOT;SKIN CA) Angioplasty, Appendectomy, Cardiac, Coronary Stent, Eye Surgery, Orthopedic, Vascular Surgery Respiratory: Yes COPD Cardiac: Yes (CARDIAC CATHS-STENTS X3; BILAT CAROTID ENDARTERECTOMIES) Coronary Artery Disease, Heart Attack, High Cholesterol, Hypertension, Peripheral Vascular Neurological: Yes Neuropathy Reproductive Disorders: No Sexually Transmitted Disease: No HIV/AIDS: No Genitourinary: No Gastrointestinal: Yes (HEPATITIS C--S/P TREATMENT) Hepatitis Musculoskeletal: Yes (CHRONIC NECK AND BACK PAIN-S/P C-SPINE + L-SPINE SURGERY; L FOOT FX/ORIF) Degenerate Disk Disease, Arthritis, Chronic Back Pain, Fractures Endocrine: No HEENT: Yes (READING GLASSES;EYE SURGERY CHILD) Loss of Vision: Bilateral Hearing Impairment: Hard of Hearing Cancer: Yes Skin Did You Recieve Any Treatments: Yes What Type of Treatment Did You: Surgical Intervention Psychosocial: Yes Anxiety, Violent Behavior, Depression Integumentary: Yes (SKIN CANCER-GETS BLISTERS) Recent Skin Changes Blood Disorders: No Adverse Reaction/Blood Tranf: No Family Medical History Cancer 19 FATHER (SKIN) 19 MOTHER Cancer of colon 19 MOTHER Kidney disease 19 FATHER (PASSED KIDNEY FAILURE) LAST CARDIAC CATH DONE HERE IN 2013--PATENT STENTS Physical Exam Vital Signs Vital Signs - First Documented 01/20/20 15:27 Temp 36.3 Pulse 64 Resp 16 B/P (MAP) 120/102 (108) Pulse Ox 28 O2 Delivery Room Air Capillary Refill : Less Than 3 Seconds Height, Weight, BMI Height: 6'1.00" Weight: 195lbs. 0oz. [id number]; 24.00 BMI Method:Actual General Appearance: WD/WN, no apparent distress HEENT: PERRL/EOMI, pharynx normal Neck: full range of motion, normal inspection Respiratory: no respiratory distress, no accessory muscle use, rhonchi Cardiovascular: normal peripheral pulses, regular rate, rhythm Peripheral Pulses: 2+ Radial Pulses (R), 2+ Radial Pulses (L) Gastrointestinal: normal bowel sounds, non tender, no organomegaly Extremities: normal range of motion, non-tender, normal inspection, normal capillary refill Neurologic/Psychiatric: alert, normal mood/affect, oriented x 3 Crainal Nerves: normal hearing, normal speech, PERRL Coordination/Gait: normal finger to nose, normal gait Motor/Sensory: no motor deficit, no sensory deficit, no pronator drift Skin: normal color, warm/dry Stroke Onset of Symptoms Date of Onset of Symptoms: Jan 20, 2020 Symptoms onset unknown: Yes NIH Stroke Scale Assessment Select: Initial Level of Consciousness: 0=Alert (0), Level of Consciousness- Questions: 0=Answers both month/age (0), LOC Commands: 0=Performs both tasks (0), Gaze: Normal (0), Visual Perry: 0=No visual loss (0), Facial Movement (Facial Paresis): 0=Normal symmetrical mnt (0), Motor Function-Arms Right: 1=Drift (1), Motor Function-Arms Left: 0=No drift (0), Motor Function-Legs Right: 1=Drift (1), Motor Function-Legs Left: 1=Drift (1), Limb Ataxia: 0=Absent (0), Sensory: 0=Normal:no loss (0), Best Language: 0=No aphasia (0), Dysarthria: 0=Normal (0), Extinction & Inattention: 0=No abnormality (0), Total: 3 Stroke Thrombolytic Exclusion Age 18 or Over: No Acute intenal hemorrhage: No History of CVA: No Uncontrolled Coagulation Defec: No Intracranial Hemorrhage: No Severe Hypertension: No GI or Bleed: No Subarachnoid Hemorrhage: No Intracranial Neoplasm/Aneurysm: No Oral Anticoagulants: No Surgery or Trauma: No Puncture of Non-Compressible V: No Recent CPR: No Diabetic Hemorrhagic Retinopat: No Organ Biopsy: No Recent Obstetric Delivery: No Glucose: No Significant Hepatic Dysfunctio: No NIH Stoke Scale >22: No Bacterial Endocarditis: No Pericarditis: No Improving Symptoms: No Platelets: No TPA Contraindication: Yes IV - TPa Received IV - TPa Procedure Performed?: No (insufficient benefits. Unknown last well time.) Progress/Results/Core Measures Results/Orders Lab Results Laboratory Tests Test 01/20/20 15:30 01/20/20 15:50 01/20/20 15:55 01/20/20 16:30 Range/Units Glucometer 117 H 70-110 MG/DL White Blood Count 10.0 4.3-11.0 10^3/uL Red Blood Count 4.72 4.30-5.52 10^6/uL Hemoglobin 14.0 13.3-17.7 g/dL Hematocrit 43 40-54 % Mean Corpuscular Volume 91 80-99 fL Mean Corpuscular Hemoglobin 30 25-34 pg Mean Corpuscular Hemoglobin Concent 33 32-36 g/dL Red Cell Distribution Width 13.7 10.0-14.5 % Platelet Count 177 130-400 10^3/uL Mean Platelet Volume 10.7 9.0-12.2 fL Immature Granulocyte % (Auto) 0 % Neutrophils (%) (Auto) 61 42-75 % Lymphocytes (%) (Auto) 27 12-44 % Monocytes (%) (Auto) 9 0-12 % Eosinophils (%) (Auto) 3 0-10 % Basophils (%) (Auto) 1 0-10 % Neutrophils # (Auto) 6.0 1.8-7.8 10^3/uL Lymphocytes # (Auto) 2.7 1.0-4.0 10^3/uL Monocytes # (Auto) 0.9 0.0-1.0 10^3/uL Eosinophils # (Auto) 0.3 0.0-0.3 10^3/uL Basophils # (Auto) 0.1 0.0-0.1 10^3/uL Immature Granulocyte # (Auto) 0.0 0.0-0.1 10^3/uL Prothrombin Time 14.0 12.2-14.7 SEC INR Comment 1.0 0.8-1.4 Activated Partial Thromboplast Time 29 24-35 SEC Sodium Level 138 135-145 MMOL/L Potassium Level 3.8 3.6-5.0 MMOL/L Chloride Level 99 98-107 MMOL/L Carbon Dioxide Level 28 21-32 MMOL/L Anion Gap 11 5-14 MMOL/L Blood Urea Nitrogen 8 7-18 MG/DL Creatinine 0.93 0.60-1.30 MG/DL Estimat Glomerular Filtration Rate > 60 BUN/Creatinine Ratio 9 Glucose Level 115 H 70-105 MG/DL Calcium Level 8.5 8.5-10.1 MG/DL Corrected Calcium 8.7 8.5-10.1 MG/DL Total Bilirubin 0.9 0.1-1.0 MG/DL Aspartate Amino Transf (AST/SGOT) 16 5-34 U/L Alanine Aminotransferase (ALT/SGPT) 13 0-55 U/L Alkaline Phosphatase 66 40-136 U/L Ammonia 26 11-32 UMOL/L Total Protein 6.6 6.4-8.2 GM/DL Albumin 3.8 3.2-4.5 GM/DL Serum Alcohol < 10 <10 MG/DL Coronavirus 2019 (BREONNA) Negative Negative Blood Gas Puncture Site L BRACH Blood Gas Patient Temperature 36.3 Arterial Blood pH 7.41 7.37-7.43 Arterial Blood Partial Pressure CO2 48 H 35-45 MMHG Arterial Blood Partial Pressure O2 64 L 79-93 MMHG Arterial Blood HCO3 30 H 23-27 MMOL/L Arterial Blood Total CO2 31.4 H 21.0-31.0 MMOL/L Arterial Blood Oxygen Saturation 95 94-100 % Arterial Blood Base Excess 5.2 H -2.5-2.5 MMOL/L David Test YES-POS Blood Gas Ventilator Setting NO Blood Gas Inspired Oxygen RA Test 01/20/20 17:20 Range/Units Urine Color YELLOW Urine Clarity CLEAR Urine pH 7.0 5-9 Urine Specific [place] 1.010 L 1.016-1.022 Urine Protein NEGATIVE NEGATIVE Urine Glucose (UA) NEGATIVE NEGATIVE Urine Ketones NEGATIVE NEGATIVE Urine Nitrite NEGATIVE NEGATIVE Urine Bilirubin NEGATIVE NEGATIVE Urine Urobilinogen 0.2 < = 1.0 MG/DL Urine Leukocyte Esterase 1+ H NEGATIVE Urine RBC (Auto) NEGATIVE NEGATIVE Urine RBC NONE /HPF Urine WBC 5-10 H /HPF Urine Crystals NONE /LPF Urine Bacteria TRACE /HPF Urine Casts NONE /LPF Urine Mucus NEGATIVE /LPF Urine Culture Indicated YES Urine Opiates Screen NEGATIVE NEGATIVE Urine Oxycodone Screen NEGATIVE NEGATIVE Urine Methadone Screen NEGATIVE NEGATIVE Urine Propoxyphene Screen NEGATIVE NEGATIVE Urine Barbiturates Screen NEGATIVE NEGATIVE Ur Tricyclic Antidepressants Screen NEGATIVE NEGATIVE Urine Phencyclidine Screen NEGATIVE NEGATIVE Urine Amphetamines Screen NEGATIVE NEGATIVE Urine Methamphetamines Screen NEGATIVE NEGATIVE Urine Benzodiazepines Screen NEGATIVE NEGATIVE Urine Cocaine Screen NEGATIVE NEGATIVE Urine Cannabinoids Screen POSITIVE H NEGATIVE My Orders Orders - BASHIR RICKETTS Ct Head Wo (01/20/20 16:04) Chest 1 View, Ap/Pa Only (01/20/20 16:04) Cbc With Automated Diff (01/20/20 16:04) Comprehensive Metabolic Panel (01/20/20 16:04) Ammonia (01/20/20 16:04) Ua Culture If Indicated (01/20/20 16:04) Drug Screen Stat (Urine) (01/20/20 16:04) Alcohol (01/20/20 16:04) Protime With Inr (01/20/20 16:04) Partial Thromboplastin Time (01/20/20 16:04) Arterial Blood Gas (01/20/20 16:30) Covid 19 Inhouse Test (01/20/20 16:39) Influenza A And B Antigens (01/20/20 16:39) Arterial Blood Draw (01/20/20 ) Ct Angio Head/Neck (01/20/20 17:52) Aspirin Chewable Tablet (Baby Aspirin Ch (01/20/20 18:00) Urine Culture (01/20/20 17:20) Iohexol Injection (Omnipaque 350 Mg/Ml 1 (01/20/20 18:15) Received Contrast (Hold Metformin- Contr (01/20/20 18:15) Ns (Ivpb) (Sodium Chloride 0.9% Ivpb Bag (01/20/20 18:15) Ceftriaxone For Iv Use (Rocephin For I (01/20/20 18:15) Medications Given in ED Current Medications Medications Dose Ordered Sig/Lindsey Route Start Time Stop Time Status Last Admin Dose Admin Aspirin 324 mg ONCE ONCE PO 01/20/20 18:00 01/20/20 18:01 DC 01/20/20 18:47 324 MG Ceftriaxone Sodium 1000 mg/ Sterile Water 10 ml @ 200 mls/hr ONCE ONCE IV 01/20/20 18:15 01/20/20 18:17 DC 01/20/20 18:48 200 MLS/HR Iohexol 75 ml ONCE ONCE IV 01/20/20 18:15 01/20/20 18:21 DC 01/20/20 18:27 75 ML Sodium Chloride 100 ml ONCE ONCE IV 01/20/20 18:15 01/20/20 18:21 DC 01/20/20 18:27 100 ML Vital Signs/I&O 01/20/20 15:27 Temp 36.3 Pulse 64 Resp 16 B/P (MAP) 120/102 (108) Pulse Ox 28 O2 Delivery Room Air Blood Pressure Mean: 108 Progress Progress Note #1: Time: 18:05 Progress Note Repeat NIH similar to the first 4 points. He gets the next appointment this time for his weakness in both legs, his right arm and 1 point for right arm ataxia which was not present before. Progress Note #2: Time: 18:57 Progress Note After reviewing the results of the CT angiogram showing extracranial occlusion we discussed this case with the stroke neurologist, Dr. Lawton. She would recommend at this time with her low NIH and the external components that there is still nothing that she would do, from thrombolectomy standpoint. She would however recommend duel Plavix and aspirin. Diagnostic Imaging Diagonstic Imaging: Xray Plain Films/CT/US/NM/MRI: chest Comments [facility] [place] [place] NAME: CRISTI KRISHNAMURTHY [facility] REC#: [id number] PT STATUS: REG ER : 1955 PHYSICIAN: BASHIR RICKETTS MD ADMIT DATE: 01/20/20/ER Draft Date of Exam:01/20/20 CHEST 1 VIEW, AP/PA ONLY Clinical indication: Patient with generalized weakness for 2 weeks off and on. Exam: Portable chest x-ray upright view. Comparisons: Chest x-ray dated 07/31/2019. Findings: Lungs are clear. There is no pleural effusion or pneumothorax. Pulmonary vasculature and cardiac silhouettes within normal limits. There are degenerative spurs involving the thoracic spine. Anterior cervical disk fusion of the lower cervical spine is again noted. Coronary stent again noted. IMPRESSION: Stable chest x-ray exam with no interval radiographic evidence of acute cardiopulmonary process. Dictated on workstation # [id number] Dict: 01/20/20 1746 Trans: 01/20/20 1752 [facility] [id number] Interpreted by: BREANNE WALLIS MD Electronically signed by: Reviewed: Reviewed by Me Diagonstic Imaging: CT Plain Films/CT/US/NM/MRI: head Comments [facility] [place], [place] NAME: CRISTI KRISHNAMURTHY [facility] REC#: [id number] PT STATUS: REG ER : 1955 PHYSICIAN: BASHIR RICKETTS MD ADMIT DATE: 01/20/20/ER Draft Date of Exam:01/20/20 CT HEAD WO Clinical Indications: Patient with generalized weakness, worse on the right x2 weeks off and on but came back yesterday and was worse. Exam: Axial CT scan of the brain without IV contrast with coronal and sagittal reformatted images. Auto Exposure Controls were utilized during the CT exam to meet ALARA standards for radiation dose reduction. Comparison: Head CT without contrast dated 07/31/2019.. Findings: There is interval development of loss of mujica-white matter distinction involving the posterior left frontal/parietal lobe region of the vertex seen on series 2, images 47 through 50. There appears to be slight increased patchy low density involving the posterior right temporal/occipital lobe region and inferior right parietal area which is superimposed and adjacent to the already noted chronic right parietal lobe cerebral infarct. There is no evidence of intracranial hemorrhage, brain herniation or midline shift. There is no hydrocephalus. Basal cisterns are unremarkable. There is no dense vessel sign seen. The extracranial soft tissues, skull, and orbits are unremarkable. There is a small mucous retention cyst or polyp involving the sphenoid sinus. Mastoid air cells are clear. IMPRESSION: 1: There is concern for interval development of a small possible subacute infarct involving the parasagittal posterior left frontal/parietal region of the vertex. MRI of the brain with and without contrast would better evaluate. 2: There is concern for progression of low density involving the posterior right temporal lobe/occipital region which is concerning for subacute infarct. Interval chronic infarcts in this region also can't be completely excluded. This also would be better evaluated with MRI of the brain. This is adjacent to the known small area of chronic right parietal cerebral infarct. 3: There is no evidence of intracranial hemorrhage. Results of this report discussed with Dr. Bashir Ricketts over the telephone on 01/20/2020 at 1736 hours. Dictated on workstation # [id number] Dict: 01/20/20 1730 Trans: 01/20/20 0553 [facility] [id number] Interpreted by: BREANNE WALLIS MD Electronically signed by: Reviewed: Reviewed by Me Diagonstic Imaging: CT (angio) Plain Films/CT/US/NM/MRI: head (neck) Reviewed: Reviewed by Me Consults : Consults Notes Dr. Lawton, stroke neurologist on-call at [facility] called at [phone]. She recommends admission and stroke workup including a CT angiogram or MRA if possible. An MRI will be necessary. Echocardiogram and she would continue the Plavix at full dose. Departure Communication (Admissions) Time/Spoke to Admitting Phy: 18:[address] Romero and she agrees to admit the patient to the floor on telemetry and obtain imaging. Impression Primary Impression: Urinary tract infection Qualified Codes: N30.00 - Acute cystitis without hematuria Additional Impression: CVA (cerebral vascular accident) Qualified Codes: I63.9 - Cerebral infarction, unspecified Disposition: ADMITTED INPATIENT Condition: Stable Admissions Decision to Admit Reason: Admit from ER (General) Decision to Admit/Date: Jan 20, 2020 Time/Decision to Admit Time: 17:36 Departure-Patient Inst. Referrals: MARY HERNANDEZ MD (PCP/Family) Primary Care Physician BASHIR RICKETTS Jan 20, 2020 16:14
[2020-01-20 16:15] LABS: BASOPHILS # (AUTO) 0.1 10^3/uL (0.0-0.1); BASOPHILS % (AUTO) 1 % (0-10); EOSINOPHILS # (AUTO) 0.3 10^3/uL (0.0-0.3); EOSINOPHILS % (AUTO) 3 % (0-10); HEMATOCRIT 43 % (40-54); LYMPHOCYTES # (AUTO) 2.7 10^3/uL (1.0-4.0); LYMPHOCYTES % (AUTO) 27 % (12-44); MEAN CORPUSCULAR HEMOGLOBIN 30 pg (25-34); MEAN CORPUSCULAR HGB CONC 33 g/dL (32-36); MEAN CORPUSCULAR VOLUME 91 fL (80-99); MEAN PLATELET VOLUME 10.7 fL (9.0-12.2); MONOCYTES # (AUTO) 0.9 10^3/uL (0.0-1.0); MONOCYTES % (AUTO) 9 % (0-12); NEUTROPHILS % (AUTO) 61 % (42-75); PLATELET COUNT 177 10^3/uL (130-400)
[2020-01-20 16:20] LABS: ALBUMIN 3.8 GM/DL (3.2-4.5); CHLORIDE 99 MMOL/L (98-107); POTASSIUM 3.8 MMOL/L (3.6-5.0); SODIUM 138 MMOL/L (135-145)
[2020-01-20 16:21] LABS: AMMONIA 26 UMOL/L (11-32); CALCIUM 8.5 MG/DL (8.5-10.1)
[2020-01-20 16:22] LABS: GLUCOSE 115 MG/DL (70-105); TOTAL PROTEIN 6.6 GM/DL (6.4-8.2)
[2020-01-20 16:23] LABS: CARBON DIOXIDE 28 MMOL/L (21-32)
[2020-01-20 16:24] LABS: BILIRUBIN,TOTAL 0.9 MG/DL (0.1-1.0)
[2020-01-20 16:26] LABS: ALKALINE PHOSPHATASE 66 U/L (40-136); CREATININE SERUM 0.93 MG/DL (0.60-1.30); GFR ESTIMATED > 60
[2020-01-20 16:27] LABS: BUN/CREATININE RATIO 9
[2020-01-20 16:29] LABS: ALANINE AMINOTRANSFERASE 13 U/L (0-55)
[2020-01-20 16:36] LABS: ABG BASE EXCESS 5.2 MMOL/L (-2.5-2.5); ABG OXYGEN SATURATION 95 % (94-100); ABG PCO2 48 MMHG (35-45); ABG PH 7.41 (7.37-7.43); ABG PO2 64 MMHG (79-93); ABG TCO2 31.4 MMOL/L (21.0-31.0)
[2020-01-20 16:38] LABS: ALLENS TEST YES-POS; INSPIRED O2 RA; PATIENT TEMP 36.3; VENTILATOR NO
--- NOTE | 2020-01-20 17:08 | NUR ---
PT TAKEN OUT OF COVID PERCAUTIONS.
[2020-01-20 17:29] LABS: BILIRUBIN,URINE NEGATIVE (NEGATIVE); CLARITY,URINE CLEAR; COLOR,URINE YELLOW; GLUCOSE, URINE (UA) NEGATIVE (NEGATIVE); KETONES,URINE NEGATIVE (NEGATIVE); LEUKOCYTE ESTERASE ,URINE 1+ (NEGATIVE); NITRITE,URINE NEGATIVE (NEGATIVE); PROTEIN,URINE NEGATIVE (NEGATIVE)
--- NOTE | 2020-01-20 17:46 | Diagnostic Imaging Report ---
Clinical Indications: Patient with generalized weakness, worse on the right x2 weeks off and on but came back yesterday and was worse. Exam: Axial CT scan of the brain without IV contrast with coronal and sagittal reformatted images. Auto Exposure Controls were utilized during the CT exam to meet ALARA standards for radiation dose reduction. Comparison: Head CT without contrast dated 07/31/2019.. Findings: There is interval development of loss of mujica-white matter distinction involving the posterior left frontal/parietal lobe region of the vertex seen on series 2, images 47 through 50. There appears to be slight increased patchy low density involving the posterior right temporal/occipital lobe region and inferior right parietal area which is superimposed and adjacent to the already noted chronic right parietal lobe cerebral infarct. There is no evidence of intracranial hemorrhage, brain herniation or midline shift. There is no hydrocephalus. Basal cisterns are unremarkable. There is no dense vessel sign seen. The extracranial soft tissues, skull, and orbits are unremarkable. There is a small mucous retention cyst or polyp involving the sphenoid sinus. Mastoid air cells are clear. IMPRESSION: 1: There is concern for interval development of a small possible subacute infarct involving the parasagittal posterior left frontal/parietal region of the vertex. MRI of the brain with and without contrast would better evaluate. 2: There is concern for progression of low density involving the posterior right temporal lobe/occipital region which is concerning for subacute infarct. Interval chronic infarcts in this region also can't be completely excluded. This also would be better evaluated with MRI of the brain. This is adjacent to the known small area of chronic right parietal cerebral infarct. 3: There is no evidence of intracranial hemorrhage. Results of this report discussed with Dr. Bashir Ricketts over the telephone on 01/20/2020 at 1736 hours. Dictated by: Dictated on workstation # [id number]
[2020-01-20 17:50] LABS: AMPHETAMINE SCREEN, URINE NEGATIVE (NEGATIVE); BARBITURATE SCREEN URINE NEGATIVE (NEGATIVE); BENZODIAZEPINES SCREEN URINE NEGATIVE (NEGATIVE); CANNABINOID SCREEN, URINE POSITIVE (NEGATIVE); COCAINE SCREEN URINE NEGATIVE (NEGATIVE); METHADONE STAT NEGATIVE (NEGATIVE); METHAMPHETAMINE SCREEN URINE S NEGATIVE (NEGATIVE); OPIATE SCREEN URINE NEGATIVE (NEGATIVE); OXYCODONE STAT NEGATIVE (NEGATIVE); PROPOXYPHENE STAT NEGATIVE (NEGATIVE); TRICYCLIC ANTIDEPRESSANTS SCRE NEGATIVE (NEGATIVE)
--- NOTE | 2020-01-20 17:53 | Diagnostic Imaging Report ---
Clinical indication: Patient with generalized weakness for 2 weeks off and on. Exam: Portable chest x-ray upright view. Comparisons: Chest x-ray dated 07/31/2019. Findings: Lungs are clear. There is no pleural effusion or pneumothorax. Pulmonary vasculature and cardiac silhouettes within normal limits. There are degenerative spurs involving the thoracic spine. Anterior cervical disk fusion of the lower cervical spine is again noted. Coronary stent again noted. IMPRESSION: Stable chest x-ray exam with no interval radiographic evidence of acute cardiopulmonary process. Dictated by: Dictated on workstation # [id number]
[2020-01-20 17:54] LABS: BACTERIA,URINE TRACE /HPF
[2020-01-20] MEDS ORDERED: ASPIRIN 81 MG CHEW (CHILDREN'S ASA) PO ONE (18:00)
[2020-01-20] MEDS ORDERED: HOLD METFORMIN - RECEIVED CONTRAST 20 ML VIAL IV SCH (18:15)
[2020-01-20] MEDS ORDERED: cefTRIAXone FOR IV USE 1,000 MG in WATER (STERILE) FOR INJECTION 10 ML IV ONE (18:15)
[2020-01-20] MEDS ORDERED: NS 100 ML (IVPB) BAG IV ONE (18:15)
[2020-01-20] MEDS ORDERED: IOHEXOL 350 MG/ML 100 ML (OMNIPAQUE 350) VIAL IV ONE (18:15)
--- NOTE | 2020-01-20 18:53 | NUR ---
PT STATES HE HAS BEEN UPDATING HIS FAMILY BY PHONE.
[2020-01-20] MEDS ORDERED: CLOPIDOGREL 75 MG (PLAVIX) TABLET PO ONE (19:00)
--- NOTE | 2020-01-20 19:01 | NUR ---
REPORT GIVEN TO MILKA
--- NOTE | 2020-01-20 19:14 | Diagnostic Imaging Report ---
Clinical Indication: The patient has headache with right-sided weakness, dizziness and blurred vision. Exams: 1: Head CT with IV contrast. Auto Exposure Controls were utilized during the CT exam to meet ALARA standards for radiation dose reduction. 2: CT angiogram of the head and neck performed with 100 cc of Omnipaque 350 IV contrast. Sagittal and coronal MIP reformations were created for better visualization of vascular anatomy. Comparison: Head CT without contrast dated 01/20/2020. CT angiogram of the head/neck dated 11/30/2017. Findings: Head CT: Again seen, small area of subcortical low density with loss of mujica-white matter distinction involving the parasagittal posterior left frontal/parietal region. There is no abnormal enhancement seen in the region. Again seen, a small patchy area of low-density involving the white matter and transcortical region of the posterior right temporal/occipital region. There is mild cortical and parenchymal enhancement seen in the region. This is likely consistent with subacute infarct. Stable small chronic cerebral infarct involving the right parietal lobe. Remainder of the brain parenchyma is stable and shows no other significant abnormality. There is no hydrocephalus, brain herniation midline shift. The remainder of this exam shows no significant interval change compared to the prior study of comparison. CT Angiogram: Bilateral endarterectomy changes are again noted. Of note, the aortic arch and proximal great vessels are not completely imaged on this exam. There is interval development of intravascular thrombus seen within the proximal visualized portion of the left common carotid artery which is completely occluded extending to the cervical left ICA. There is reconstitution at the proximal aspect of the petrous portion of the left cervical ICA. The left ECA is reconstituted by a neck vascular structure in the region. There is again noted atherosclerotic disease involving the proximal right subclavian artery near its origin with at least mild to moderate stenosis in the region. There is a stable mild area of stenosis involving the mid right subclavian artery. The visualized portions of the left subclavian artery are patent. The origin is obscured by motion artifact, but it appears grossly patent. The right common carotid artery is patent. There is interval decrease in luminal size of the cervical right ICA proximally and the distal right common carotid artery in the area of endarterectomy. There is interval development of roughly 80-90% focal stenosis involving the proximal to mid cervical left ICA. The origin of the right ECA is occluded. The right ECA is reconstituted by other neck arterial vascular structures. There is motion limiting evaluation of the origins of the bilateral cervical vertebral arteries. There is at least mild narrowing seen proximally. The remainder of the cervical bilateral vertebral arteries are patent. The intradural bilateral vertebral arteries, basilar artery, bilateral superior cerebellar arteries are patent. The bilateral lean process deployment consultant and their distal branches are patent. The bilateral petrous, cavernous, supraclinoid ICA are patent. The bilateral A1 ACAs, anterior communicating artery and the distal branches are patent. The bilateral MCAs and their distal branches show no large vessel occlusion. The dural venous sinuses are patent. Besides vascular abnormalities, the neck soft tissue structures show no significant abnormality. Emphysematous lung disease changes are seen. There is cervical spine degenerative disease. There is C4-C6 anterior cervical disc fusion with C5 corpectomy and strut graft in place. IMPRESSION: 1: There is interval complete occlusion of the left common carotid artery, cervical left ECA and origin of the left ECA. The occlusion begins just distal to the origin of the left common carotid artery and is reconstituted at the petrous portion of the left ICA. Patient had endarterectomy in this region which is completely occluded. The origin of the left ECA is occluded and is reconstituted proximally. 3: The patient had right carotid artery endarterectomy changes seen. There is interval development of significant mural thrombus in the periphery of the endarterectomy changes with narrowing of the vessel. There is development of a focal area of severe stenosis of the proximal cervical right ICA. The origin of the right ECA is now occluded and is reconstituted proximally. 4: There is no other evidence of large vessel occlusion seen. There is no intracranial large vessel occlusion noted. 5: There is a small suspected subacute infarct involving the parasagittal posterior frontal lobe/parietal lobe region. 6: There is a small subacute infarct involving the posterior right temporal/occipital region. 7: There is a chronic cerebral infarct involving the right parietal lobe. Results of this report were discussed with Dilan Finnegan APRN via the telephone on 01/20/2020 at 1842 hours Dictated by: Dictated on workstation # [id number]
[2020-01-20 19:55] VITALS: BP 195/97
--- NOTE | 2020-01-20 19:55 | NUR ---
CRISTI KRISHNAMURTHY admitted to room 419-1, with an admitting diagnosis of SUBACUTE STROKE AND WEAKNESS, on 01/20/20 from [facility] via [facility], accompanied by ER STAFF.CRISTI KRISHNAMURTHY introduced to surroundings, call light, bed controls, phone, TV, temperature control, lights, meal times, smoking policy, visitor policy, side rail policy, bathrooms and showers. Patient Rights given to patient in the handbook. CRISTI KRISHNAMURTHY verbalizes understanding that [facility] is not responsible for the loss or damage to any personal effects or valuables that are kept in the patients possession during their hospitalization.
[2020-01-20] MEDS ORDERED: ONDANSETRON 4 MG/2 ML (SDV) Z0FRAN IV PRN (20:15)
[2020-01-20] MEDS ORDERED: ACETAMINOPHEN 325 MG TABLET PO PRN ×2 (20:15)
[2020-01-20] MEDS ORDERED: CATHETER FLUSH 10 ML SYR IV PRN (20:15)
[2020-01-20] MEDS ORDERED: LORazepam INJ 2 MG/ML (ATIVAN) VIAL IV PRN (20:15)
[2020-01-20] MEDS ORDERED: ACETAMINOPHEN 650 MG SUPP (TYLENOL) PR PRN (20:15)
[2020-01-20] MEDS: inSUlin ASPART (NovoLOG) 1 UNIT/0.01 ML (CHARGE PER UNIT) SC SCH (21:10)
[2020-01-20] MEDS: CATHETER FLUSH 10 ML SYR IV SCH (21:57)
[2020-01-20 22:39] VITALS: BP 120/102
[2020-01-21 00:20] VITALS: BP 121/67
[2020-01-21 03:12] VITALS: BP 116/59
[2020-01-21 05:11] LABS: BASOPHILS # (AUTO) 0.1 10^3/uL (0.0-0.1); BASOPHILS % (AUTO) 1 % (0-10); EOSINOPHILS # (AUTO) 0.5 10^3/uL (0.0-0.3); EOSINOPHILS % (AUTO) 4 % (0-10); HEMATOCRIT 44 % (40-54); HEMOGLOBIN 14.1 g/dL (13.3-17.7); LYMPHOCYTES # (AUTO) 1.9 10^3/uL (1.0-4.0); LYMPHOCYTES % (AUTO) 16 % (12-44); MEAN CORPUSCULAR HEMOGLOBIN 29 pg (25-34); MEAN CORPUSCULAR HGB CONC 32 g/dL (32-36); MEAN CORPUSCULAR VOLUME 91 fL (80-99); MEAN PLATELET VOLUME 11.2 fL (9.0-12.2); MONOCYTES # (AUTO) 1.2 10^3/uL (0.0-1.0); MONOCYTES % (AUTO) 10 % (0-12); NEUTROPHILS # (AUTO) 8.1 10^3/uL (1.8-7.8); NEUTROPHILS % (AUTO) 69 % (42-75); PLATELET COUNT 183 10^3/uL (130-400); WHITE BLOOD COUNT 11.8 10^3/uL (4.3-11.0)
[2020-01-21 05:20] LABS: ALBUMIN 3.6 GM/DL (3.2-4.5); CHLORIDE 102 MMOL/L (98-107); POTASSIUM 3.9 MMOL/L (3.6-5.0); SODIUM 139 MMOL/L (135-145)
[2020-01-21 05:21] LABS: CALCIUM 8.5 MG/DL (8.5-10.1)
[2020-01-21 05:22] LABS: TRIGLYCERIDES 95 MG/DL (<150); VLDL CHOLESTEROL 19 MG/DL (5-40)
[2020-01-21 05:23] LABS: GLUCOSE 117 MG/DL (70-105); TOTAL PROTEIN 6.3 GM/DL (6.4-8.2)
[2020-01-21 05:24] LABS: BILIRUBIN,TOTAL 0.4 MG/DL (0.1-1.0); CARBON DIOXIDE 28 MMOL/L (21-32)
[2020-01-21 05:26] LABS: ALKALINE PHOSPHATASE 69 U/L (40-136); CREATININE SERUM 0.85 MG/DL (0.60-1.30); GFR ESTIMATED > 60
[2020-01-21] MEDS: inSUlin ASPART (NovoLOG) 1 UNIT/0.01 ML (CHARGE PER UNIT) SC SCH ×4 (05:26→20:41)
[2020-01-21 05:27] LABS: BUN/CREATININE RATIO 15; CHOLESTEROL 121 MG/DL (< 200)
[2020-01-21 05:28] LABS: HDL CHOLESTEROL 34 MG/DL (40-60)
[2020-01-21 05:29] LABS: ALANINE AMINOTRANSFERASE 12 U/L (0-55)
[2020-01-21] MEDS: CATHETER FLUSH 10 ML SYR IV SCH ×3 (05:32→20:36)
[2020-01-21] MEDS ORDERED: FLU QUADRIvalent (3YOA+) 60 mcg/0.5 ml 2020-21 (AFLURIA) IM ONE (07:00)
[2020-01-21 08:00] VITALS: BP 134/78
--- NOTE | 2020-01-21 08:01 | NUR ---
PATIENT BROUGHT BACK TO ROOM FROM MRI. MRI UNABLE TO BE COMPLETED D/T PATIENT INABLITIY TO REMAIN STILL . DR GARCIA NOTIFIED.
--- NOTE | 2020-01-21 08:23 | NUR ---
DR GARCIA WITH NEW ORDERS FOR MRI MEDICATION AND C/O PAIN DURING PROCEDURE. MRI, STEVE NOTIFIED. STEVE STATES SHE WILL NOT BE ABLE TO RETRY THE MRI UNTIL AROUND 1130. REQUEST FROM THIS RN TO GIVE 30 MIN NOTICE FOR PREMEDICATION. PATIENT IS CURRENTLY IN WITH [facility] FOR ECHO. DENIES NEEDS OR C/O AT THIS TIME. CONT TO MONITOR
[2020-01-21] MEDS: RT-ALBUTEROL/IPRATROPIUM 3 ML (DUONEB) VIAL INH SCH ×2 (08:27→19:40)
[2020-01-21] MEDS ORDERED: fentaNYL INJECTION 100 MCG/2 ML AMP IVP PRN (08:30)
[2020-01-21] MEDS: ASPIRIN 325 MG (5 GR) TABLET PO SCH (09:14)
[2020-01-21] MEDS: CLOPIDOGREL 75 MG (PLAVIX) TABLET PO SCH (09:14)
--- NOTE | 2020-01-21 10:25 | History & Physical-Hospitalist ---
History of Present Illness HPI/Chief Complaint Pt is a 64yoCM with a PMH of TIA, COPD, HTN who presented to the ER due to right arm weakness. 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 It continued all day yesterday and he was unable to roll his cigarettes so he decided to seek evaluation. CT confirmed multiple subacute infarcts. CTA was done and showed left carotid occlusion and right sided stenosis. All of these finding were discussed with [facility] and they recommended conservative management but admission for further stroke work up. This morning he states all of his symptoms are improved but he still has some weakness in his right arm. He was up ambulating with PT already this morning. Source: patient Exam Limitations: no limitations Date Seen 01/21/20 Time Seen by a Provider: 10:25 Attending Physician Bette Romero MD PCP Mary Pérez MD Referring Physician Date of Admission Jan 20, 2020 at 18:45 Home Medications & Allergies Home Medications Reviewed patient Home Medication Reconciliation performed by pharmacy medication reconciliations brain wave technician and/or nursing. Patients Allergies have been reviewed. Allergies Allergies Coded Allergies No Known Drug Allergies (Unverified03/13/18) Past Fnwexqu-Ctbsjx-Fziyhr Hx Past Med/Social Hx: Reviewed Nursing Past Med/Soc Hx Patient Social History Alcohol Use: Denies Use Alcohol Beverage of Choice: Whiskey Recreational Drug Use: Yes (POT) Drug of Choice: DAILY MARIJUANA USE Smoking Status: Current Everyday Smoker Type Used: Cigarettes 2nd Hand Smoke Exposure: Yes Recent Foreign Travel: No Contact w/other who traveled: No Recent Hopitalizations: No Recent Infectious Disease Expo: No Immunizations Up To Date Tetanus Booster (TDap): Less than 5yrs Date of Pneumonia Vaccine: June 20, 2013 Date of Influenza Vaccine: Nov 27, 2017 Seasonal Allergies Seasonal Allergies: No Past Medical History Surgeries: Angioplasty, Appendectomy, Cardiac, Coronary Stent, Eye Surgery, Orthopedic, Vascular Surgery Cardiac: Coronary Artery Disease, Heart Attack, High Cholesterol, Hypertension, Peripheral Vascular Neurological: Neuropathy Reproductive: No Sexually Transmitted Disease: No HIV/AIDS: No Gastrointestinal: Hepatitis Musculoskeletal: Degenerate Disk Disease, Arthritis, Chronic Back Pain, Fractures Loss of Vision: Bilateral Hearing Impairment: Hard of Hearing Cancer: Skin Did You Recieve Any Treatments: Yes What Type of Treatment Did You: Surgical Intervention Psychosocial: Anxiety, Violent Behavior, Depression Skin/Integumentary: Recent Skin Changes History of Blood Disorders: No Adverse Reaction to Blood Parekh: No Family History Cancer 19 FATHER (SKIN) 19 MOTHER Cancer of colon 19 MOTHER Kidney disease 19 FATHER (PASSED KIDNEY FAILURE) LAST CARDIAC CATH DONE HERE IN 2013--PATENT STENTS Review of Systems Constitutional: No chills, No fever EENTM: no symptoms reported Respiratory: short of breath (chronic from COPD) Cardiovascular: No chest pain, No edema, No palpitations Gastrointestinal: No abdominal pain, No constipation, No diarrhea, No nausea, No vomiting Genitourinary: no symptoms reported Musculoskeletal: muscle weakness Skin: no symptoms reported Psychiatric/Neurological: See HPI Physical Exam Physical Exam Vital Signs Vital Signs - First Documented 01/20/20 01/20/20 15:27 22:39 Temp 36.3 Pulse 64 Resp 16 B/P (MAP) 120/102 (108) Pulse Ox 28 O2 Delivery Room Air FiO2 21 Capillary Refill : Less Than 3 Seconds Height, Weight, BMI Height: 6'1.00" Weight: 195lbs. 0oz. 88.322841pc; 23.91 BMI Method:Actual General Appearance: No Apparent Distress, WD/WN HEENT: PERRL/EOMI, Moist Mucous Membranes; No Scleral Icterus (L), No Scleral Icterus (R) Neck: Normal Inspection, Supple; No JVD Respiratory: Lungs Clear, No Accessory Muscle Use, No Respiratory Distress Cardiovascular: Regular Rate, Rhythm, No Murmur Gastrointestinal: Normal Bowel Sounds, Non Tender, Soft Extremity: Normal Capillary Refill, No Calf Tenderness, No Pedal Edema Neurologic/Psychiatric: Alert, Oriented x3, Normal Mood/Affect, Motor Weakness (right upper extremity weakness 4/5, lower extremities 5/5) Skin: Normal Color, Warm/Dry Results Results/Procedures Labs Laboratory Tests 01/20/20 15:50 01/21/20 04:40 Patient resulted labs reviewed. Imaging: Reviewed Imaging Report [facility] [place] [place] NAME: KRISHNAMURTHYCRISTI [facility] REC#: [id number] PT STATUS: ADM IN : 1955 PHYSICIAN: BASHIR RICKETTS MD ADMIT DATE: 01/20/20/ Signed Date of Exam:01/20/20 CT HEAD WO Clinical Indications: Patient with generalized weakness, worse on the right x2 weeks off and on but came back yesterday and was worse. Exam: Axial CT scan of the brain without IV contrast with coronal and sagittal reformatted images. Auto Exposure Controls were utilized during the CT exam to meet ALARA standards for radiation dose reduction. Comparison: Head CT without contrast dated 07/31/2019.. Findings: There is interval development of loss of mujica-white matter distinction involving the posterior left frontal/parietal lobe region of the vertex seen on series 2, images 47 through 50. There appears to be slight increased patchy low density involving the posterior right temporal/occipital lobe region and inferior right parietal area which is superimposed and adjacent to the already noted chronic right parietal lobe cerebral infarct. There is no evidence of intracranial hemorrhage, brain herniation or midline shift. There is no hydrocephalus. Basal cisterns are unremarkable. There is no dense vessel sign seen. The extracranial soft tissues, skull, and orbits are unremarkable. There is a small mucous retention cyst or polyp involving the sphenoid sinus. Mastoid air cells are clear. IMPRESSION: 1: There is concern for interval development of a small possible subacute infarct involving the parasagittal posterior left frontal/parietal region of the vertex. MRI of the brain with and without contrast would better evaluate. 2: There is concern for progression of low density involving the posterior right temporal lobe/occipital region which is concerning for subacute infarct. Interval chronic infarcts in this region also can't be completely excluded. This also would be better evaluated with MRI of the brain. This is adjacent to the known small area of chronic right parietal cerebral infarct. 3: There is no evidence of intracranial hemorrhage. Results of this report discussed with Dr. Bashir Ricketts over the telephone on 01/20/2020 at 1736 hours. Dictated by: Dictated on workstation # [id number] Dict: 01/20/201729 Trans: 01/20/202024 [facility] [id number] Interpreted by: BREANNE WALLIS MD Electronically signed by: BREANNE WALLIS MD 01/20/202024 [facility] [place], [place] NAME: YESSYCRISTI [facility] REC#: [id number] PT STATUS: ADM IN : 1955 PHYSICIAN: BASHIR RICKETTS MD ADMIT DATE: 01/20/20/4TH Signed Date of Exam:01/20/20 CT ANGIO HEAD/NECK Clinical Indication: The patient has headache with right-sided weakness, dizziness and blurred vision. Exams: 1: Head CT with IV contrast. Auto Exposure Controls were utilized during the CT exam to meet ALARA standards for radiation dose reduction. 2: CT angiogram of the head and neck performed with 100 cc of Omnipaque 350 IV contrast. Sagittal and coronal MIP reformations were created for better visualization of vascular anatomy. Comparison: Head CT without contrast dated 01/20/2020. CT angiogram of the head/neck dated 11/30/2017. Findings: Head CT: Again seen, small area of subcortical low density with loss of mujica-white matter distinction involving the parasagittal posterior left frontal/parietal region. There is no abnormal enhancement seen in the region. Again seen, a small patchy area of low-density involving the white matter and transcortical region of the posterior right temporal/occipital region. There is mild cortical and parenchymal enhancement seen in the region. This is likely consistent with subacute infarct. Stable small chronic cerebral infarct involving the right parietal lobe. Remainder of the brain parenchyma is stable and shows no other significant abnormality. There is no hydrocephalus, brain herniation midline shift. The remainder of this exam shows no significant interval change compared to the prior study of comparison. CT Angiogram: Bilateral endarterectomy changes are again noted. Of note, the aortic arch and proximal great vessels are not completely imaged on this exam. There is interval development of intravascular thrombus seen within the proximal visualized portion of the left common carotid artery which is completely occluded extending to the cervical left ICA. There is reconstitution at the proximal aspect of the petrous portion of the left cervical ICA. The left ECA is reconstituted by a neck vascular structure in the region. There is again noted atherosclerotic disease involving the proximal right subclavian artery near its origin with at least mild to moderate stenosis in the region. There is a stable mild area of stenosis involving the mid right subclavian artery. The visualized portions of the left subclavian artery are patent. The origin is obscured by motion artifact, but it appears grossly patent. The right common carotid artery is patent. There is interval decrease in luminal size of the cervical right ICA proximally and the distal right common carotid artery in the area of endarterectomy. There is interval development of roughly 80-90% focal stenosis involving the proximal to mid cervical left ICA. The origin of the right ECA is occluded. The right ECA is reconstituted by other neck arterial vascular structures. There is motion limiting evaluation of the origins of the bilateral cervical vertebral arteries. There is at least mild narrowing seen proximally. The remainder of the cervical bilateral vertebral arteries are patent. The intradural bilateral vertebral arteries, basilar artery, bilateral superior cerebellar arteries are patent. The bilateral business intern and their distal branches are patent. The bilateral petrous, cavernous, supraclinoid ICA are patent. The bilateral A1 ACAs, anterior communicating artery and the distal branches are patent. The bilateral MCAs and their distal branches show no large vessel occlusion. The dural venous sinuses are patent. Besides vascular abnormalities, the neck soft tissue structures show no significant abnormality. Emphysematous lung disease changes are seen. There is cervical spine degenerative disease. There is C4-C6 anterior cervical disc fusion with C5 corpectomy and strut graft in place. IMPRESSION: 1: There is interval complete occlusion of the left common carotid artery, cervical left ECA and origin of the left ECA. The occlusion begins just distal to the origin of the left common carotid artery and is reconstituted at the petrous portion of the left ICA. Patient had endarterectomy in this region which is completely occluded. The origin of the left ECA is occluded and is reconstituted proximally. 3: The patient had right carotid artery endarterectomy changes seen. There is interval development of significant mural thrombus in the periphery of the endarterectomy changes with narrowing of the vessel. There is development of a focal area of severe stenosis of the proximal cervical right ICA. The origin of the right ECA is now occluded and is reconstituted proximally. 4: There is no other evidence of large vessel occlusion seen. There is no intracranial large vessel occlusion noted. 5: There is a small suspected subacute infarct involving the parasagittal posterior frontal lobe/parietal lobe region. 6: There is a small subacute infarct involving the posterior right temporal/occipital region. 7: There is a chronic cerebral infarct involving the right parietal lobe. Results of this report were discussed with Dilan Finnegan APRN via the telephone on 01/20/2020 at 1842 hours Dictated by: Dictated on workstation # [id number] Dict: 01/20/201827 Trans: 01/20/202023 [facility] [id number] Interpreted by: BREANNE WALLIS MD Electronically signed by: BREANNE WALLIS MD 01/20/202023 Assessment/Plan Admission Diagnosis Subacute CVA Admission Status: Inpatient Order (span 2 midnights) Reason for Inpatient Admission: see below Assessment and Plan Subacute CVA Tobacco abuse, Marijuana abuse CAD HTN CT confirmed subacte CVA on arrival CTA with significant disease Stroke Neurology at [facility] contacted and recommended conservative management with no surgical intervention, continue DAPT MRI pending Echo ordered Discussed with Cardiology who will see in consultation for possible loop recorder Recommended smoking cessation PT/OT/SNACK BAR COOK UTI Await c/s Continue Rocephin Dvt ppx: Lovenox Diagnosis/Problems Diagnosis/Problems (1) CAD (coronary artery disease) (2) COPD (chronic obstructive pulmonary disease) (3) Hypertension (4) Person under investigation for COVID-19 (5) Tobacco abuse (6) Marijuana abuse (7) Carotid stenosis, symptomatic, with infarction (8) CVA (cerebral vascular accident) Status: Acute Qualifiers: CVA mechanism: unspecified Qualified Codes: I63.9 - Cerebral infarction, unspecified (9) Urinary tract infection Status: Acute Qualifiers: Urinary tract infection type: acute cystitis Hematuria presence: without hematuria Qualified Codes: N30.00 - Acute cystitis without hematuria (10) Lumbar radiculopathy Status: Acute Clinical Quality Measures DVT/VTE Risk/Contraindication: Risk Factor Score Per Nursin RFS Level Per Nursing on Admit: 4+=Very High Stroke: Date of last known well: Jan 20, 2020 Symptoms onset unknown: Yes BETTE ROMERO MD Jan 21, 2020 10:25
--- NOTE | 2020-01-21 10:31 | Physical Therapy Evaluation ---
PT Evaluation-General Medical Diagnosis Admission Date Jan 20, 2020 at 18:45 Medical Diagnosis: CVA/UTI Onset Date: Jan 20, 2020 Therapy Diagnosis Therapy Diagnosis: debility Height/Weight Height (Feet): 6 Height (Inches): 1.00 Weight (Pounds): 195 Weight (Ounces): 0 Precautions Precautions/Isolations: Seizure, Fall Prevention, Standard Precautions Referral Physician: Heather Reason for Referral: Evaluation/Treatment Medical History Pertinent Medical History: CAD, COPD, HTN, Neuropathy, PVD, Smoking (both) Additional Medical History hepatitis/violent behavior disorder Current History ambulated to ER secondary to weakness, SOB, cough and vision change Reviewed History: Yes Social History Home: Single Level Current Living Status: Alone Entry Into Home: Stairs With Railing PT Steps Into Home: 4 Prior Prior Level of Function SCALE: Activities may be completed with or without assistive devices. 7-Vpuvxmegzr-ithrycf completes the activity by him/herself with no assistance fr om a helper. 5-Set-up or Clean-up Assistance-helper sets up or cleans up; patient completes activity. [place] assists only prior to or following the activity. 4-Supervision or Touching Assistance-helper provides verbal cues and/or touching/steadying and/or contact guard assistance as patient completes activity. Assistance may be provided throughout the activity or intermittently. 3-Partial/Moderate Assistance-helper does LESS THAN HALF the effort. [place] lifts, holds or supports trunk or limbs, but provides less than half the effort. 2-Substantial/Maximal Assistance-helper does MORE THAN HALF the effort. [place] lifts or holds trunk or limbs and provides more than half the effort. 5-Bdagaoxgm-ngunmc does ALL the effort. Patient does none of the effort to complete the activity. Or, the assistance of 2 or more helpers is required for the patient to complete the activity. If activity was not attempted, code reason: 7-Patient Refused. 9-Not Applicable-not attempted and the patient did not perform the activity before the current illness, exacerbation or injury. 10-Not Attempted due to Environmental Limitations-(lack of equipment, weather restraints, etc.). 88-Not Attempted due to Medical Conditions or Safety Concerns. Bed Mobility: 6 Transfers (B,C,W/C): 6 Gait: 6 Stairs: 6 Indoor Mobility (Ambulation): Independent Stairs: Independent PT Evaluation-Current Subjective Patient agrees to PT. No c/o. Objective Patient Orientation: Normal For Age ROM/Strength ROM Lower Extremities bilateral LE WFL Strength Lower Extremities 4/5 grossly bilateral LE Integumentary/Posture Integumentary refer to nursing notes Bowel Incontinence: No Bladder Incontinence: No Posture WFL Neuromuscular (Tone, Coordination, Reflexes) grossly intact Sensory Vision: Functional Hearing: Functional Sensation Right Lower Extremit: Impaired Sensation Left Lower Extremity: Impaired Transfers Roll Left to Right (QC): 6 Sit to Lying (QC): 6 Lying to Sitting/Side of Bed(Q: 6 Sit to Stand (QC): 6 Chair/Ndo-nu-Zqxan Xfer(QC): 6 Gait Does the Patient Walk?: Yes Mode of Locomotion: Walk Anticipated Mode of Locomotion: Walk Walk 10 feet (QC): 6 Walk 50 ft with 2 Turns(QC): 6 Walk 150 ft (QC): 6 Distance: 600' Gait Assistive Device: None Comments/Gait Description safe and functional with no deviation Stairs #of Steps: 12 1 Step (curb) (QC): 6 4 Steps (QC): 6 12 Steps (QC): 6 reciprocal ascending and descending Balance Sitting Static: Normal Sitting Dynamic: Normal Standing Static: Normal Standing Dynamic: Normal Picking up an Object (QC): 6 Assessment/Needs 64 y.o. male, is currently at [facility] with all gross motor skills and d oes not require skilled therapy intervention. Rehab Potential: Fair PT Plan Treatment/Plan Treatment Plan: Discontinue PT, goals met Treatment Duration: Jan 21, 2020 Frequency: 1 time per week Estimated Hrs Per Day: .25 hour per day Patient and/or Family Agrees t: Yes Time/GCodes Time In: 853 Time Out: 904 Total Billed Treatment Time: 11 Total Billed Treatment 1 visit EVMod 11 min RADHA SALINAS PT Jan 21, 2020 10:31
--- NOTE | 2020-01-21 11:11 | Diagnostic Imaging Report ---
PROCEDURE: MR imaging of the brain without contrast. TECHNIQUE: Multiplanar, multisequence MR imaging of the brain was performed without contrast. INDICATION: Right-sided weakness. COMPARISON: The exam is interpreted in correlation with a CT study of 01/20/2020 as well as a brain MRI of 10/03/2015. FINDINGS: There are new areas of abnormal diffusion restriction and scattered edema in the left hemisphere superiorly in the frontal, parietal, and to a lesser extent temporal lobes favoring watershed infarcts. None of the infarcted segments exert mass effect and none show hemorrhagic conversion. There is laminar necrosis and encephalomalacia owing to an old right temporoparietal infarct. This is a nonacute finding that has developed from the comparison MRI in 2016. There is loss of flow void of the intracranial left ICA, either from slow flow or distal progression of the occlusion seen at yesterday's CT angio. The intracranial right ICA shows a normal flow void. There is no hydrocephalus, shift, or herniation. IMPRESSION: 1. Left hemispheric watershed type infarcts. Loss of left intracranial ICA flow void may be from bidirectional flow and/or slow flow in this patient with known carotid occlusion and reconstitution at the petrous segment. As another alternative, this could reflect progressive occlusion now to the level of its terminus. 2. 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 3. No findings of intracerebral hemorrhage, shift, herniation, or hydrocephalus. Dictated by: Dictated on workstation # [id number]
--- NOTE | 2020-01-21 11:31 | Occupational Therapy Eval ---
OT Evaluation-General/PLF Medical Diagnosis Admission Date Jan 20, 2020 at 18:45 Medical Diagnosis: CVA/UTI Onset Date: Jan 20, 2020 Therapy Diagnosis Therapy Diagnosis: decreased functional use RUE Height/Weight Height (Feet): 6 Height (Inches): 1.00 Weight (Pounds): 195 Weight (Ounces): 0 Precautions Precautions/Isolations: Seizure, Fall Prevention, Standard Precautions Referral Physician: Heather Referral Reason: Evaluation/Treatment Medical History Pertinent Medical History: CAD, COPD, HTN, Neuropathy, PVD, Smoking (both) Additional Medical History angioplasty, coronary stent, heart attack, hepatitis, DDD, arthritis, chronic back pain, anxiety/depression Current History ED due to weakness, SOB, cough and vision change. PUI for COVID19. Reviewed History: Yes Social History Home: Single Level Current Living Status: Alone Entry Into Home: Stairs With Railing Steps Into Home: 4 ADL-Prior Level of Function SCALE: Activities may be completed with or without assistive devices. 3-Ecfscaqjot-cziokqz completes the activity by him/herself with no assistance from a helper. 5-Set-up or Clean-up Assistance-helper sets up or cleans up; patient completes activity. [place] assists only prior to or following the activity. 4-Supervision or Touching Assistance-helper provides verbal cues and/or touching/steadying and/or contact guard assistance as patient completes a ctivity. Assistance may be provided throughout the activity or intermittently. 3-Partial/Moderate Assistance-helper does LESS THAN HALF the effort. [place] lifts, holds or supports trunk or limbs, but provides less than half the effort. 2-Substantial/Maximal Assistance-helper does MORE THAN HALF the effort. [place] lifts or holds trunk or limbs and provides more than half the effort. 4-Flmilyfxy-cyvsbn does ALL the effort. Patient does none of the effort to complete the activity. Or, the assistance of 2 or more helpers is required for the patient to complete the activity. If activity was not attempted, code reason: 7-Patient Refused. 9-Not Applicable-not attempted and the patient did not perform the activity before the current illness, exacerbation or injury. 10-Not Attempted due to Environmental Limitations-(lack of equipment, weather restraints, etc.). 88-Not Attempted due to Medical Conditions or Safety Concerns. ADL PLOF Comments Pt indicates he was independent with all ADLs and functional mobility at [facility], no AD/AE Self Care: Independent Functional Cognition: Independent DME/Equipment: Tub/Shower OT Current Status Subjective Pt seated in recliner, agreeable to OT evaluation and tx. Mental Status/Objective Patient Orientation: Person, Place, Time, Situation Current Glasses/Contacts: Yes Hand Dominance: Right Upper Extremity ROM BUE shoulder flexion to approx 150 degrees, slower movements noted in RUE Upper Extremity Coordination slightly decreased RUE Upper Extremity Sensation pt reports tingling/numbness in RUE Upper Extremity Strength RUE grossly 3+/5, LUE grossly 4/5 ADL-Treatment Eating (QC): 5 (Pt requires assistance opening sugar and creamer packets for coffee due to decreased coordination RUE) On/Off Footwear (QC): 6 (Pt donned bilateral shoes.) Other Treatments Pt seated in recliner, OT educated pt on purpose and benefits of OT, he verbalized understanding. Pt provided information about PLOF and home set up and participated in UE screen. Pt indicates his main concern is his RUE function. He indicates he is able to use it, but has difficulty opening containers with lunch and difficulty with sugar and creamer packets. Pt indicates he is able to open packets, but spills the contents on the table. Pt able to don shoes independently seated at recliner. OT assisted pt with opening sugar and creamer and putting it in coffee. Pt then able to grab cup, bring to mouth, and take a drink. OT provided pt with heavy resistance green static balancer sponge, educating him on performing static balancer squeezes and pinches. Pt demo's understanding, completing x10 reps RUE. Post OT tx, pt seated in recliner, call light in reach and all needs met. Education OT Patient Education: Correct positioning, Energy conservation, Modified ADL techniques, Progress toward Goal/Update tx plan, Purpose of tx/functional activities Teaching Recipient: Patient Teaching Methods: Discussion Response to Teaching: Verbalize Understanding OT Fpc Goals Frit Burner Goals Time Frame: Jan 28, 2020 Eating (QC): 6 Oral Hygiene (QC): 6 Toileting Hygiene (QC): 6 Shower/Bathe Self (QC): 6 Upper Body Dressing (QC): 6 Lower Body Dressing (QC): 6 On/Off Footwear (QC): 6 1=Demonstrate adherence to instructed precautions during ADL tasks. 2=Patient will verbalize/demonstrate understanding of assistive devices/modifications for ADL. 3=Patient will improve strength/tolerance for activity to enable patient to perf orm ADL's. OT Education/Plan Problem List/Assessment Assessment: Decreased Activ Tolerance, Decreased UE Strength, Impaired I ADL's, Impaired Self-Care Skills Pt would benefit from short term skilled OT in order to increase functional use and strength of RUE, to increase independence with I/ADLs to maximize LOF for safe return home alone. Discharge Recommendations Plan/Recommendations: Continue POC Therapy Discharge Recommendati: Home & Family Treatment Plan/Plan of Care Patient would benefit from OT for education, treatment and training to promote independence in ADL's, mobility, safety and/or upper extremity function for ADL's. Plan of Care: ADL Retraining, Functional Mobility, UE Funct Exercise/Act Treatment Duration: Jan 28, 2020 Frequency: 5 times per week Estimated Hrs Per Day: .25 hour per day Rehab Potential: Fair Time/GCodes Start Time: 10:50 Stop Time: 11:05 Total Time Billed (hr/min): 15 Billed Treatment Time ALBERTO Steve ADDISON OT Jan 21, 2020 11:31
[2020-01-21 13:00] VITALS: BP 140/78
--- NOTE | 2020-01-21 14:32 | Speech Therapy Progress Note ---
Therapy Progress Note ST discharging order due to patient within normal range of function at this time. Nursing reports no cognitive issues. No further ST services are needed. GONZALES SHABAZZ Jan 21, 2020 14:32
[2020-01-21] MEDS ORDERED: GABA300C PO (15:21)
[2020-01-21] MEDS ORDERED: FLUT9.9S NS (15:21)
[2020-01-21] MEDS ORDERED: ATOR80TA76 PO (15:21)
[2020-01-21] MEDS ORDERED: METO50TA15 PO (15:21)
--- NOTE | 2020-01-21 15:22 | NUR ---
I HAVE A MED LIST FROM THE [facility] ALSO SPOKE WITH THE PT (I CALLED HIS ROOM PHONE) TO COMPLETE THE MED REC 09-11-2019 ATORVASTATIN 80MG #45/90DS 09-11-2019 BACLOFEN 10MG #90 09-11-2019 CLOPIDOGREL 75MG #90/90DS 09-11-2019 GABAPENTIN 300MG #810/90DS 09-11-2019 METOPROLOL TART 50MG #90/180DS 10-25-2019 FLONASE #3 10-25-2019 COMBIVENT #3 METOPROLOL TART 50MG HAS DIRECTIONS FROM THE OR OF " TAB BID" HOWEVER PT SAYS HE TAKES TAB DAILY VITAMIN D IS ALSO LISTED ON THE OR MED LIST HOWEVER PT SAYS HE IS NOT TAKING PT DENIES TAKING ANY OTC MEDS
[2020-01-21] MEDS ORDERED: FLUTICASONE NASAL SPRAY (FLONASE) 16 GM BTL NS PRN (15:45)
[2020-01-21] MEDS ORDERED: NON-FORMULARY MEDICATION 1 EA EA (Fluticasone Propionate (Flonase Allergy Relief) 2 SPRAY) NS PRN (15:45)
[2020-01-21 15:58] VITALS: BP 187/95
[2020-01-21] MEDS: ENOXAPARIN 40 MG/0.4 ML (LOVENOX) SYR SQ SCH (16:52)
[2020-01-21] MEDS ORDERED: cefTRIAXone 1,000 MG/SWFI 10 ML IV PUSH IV SCH ×2 (18:00)
[2020-01-21 19:52] VITALS: BP 190/93
[2020-01-21] MEDS: GABAPENTIN 300 MG (NEURONTIN) CAP PO SCH (20:36)
[2020-01-21] MEDS: BACLOFEN 10 MG (LIORESAL) TAB PO SCH (20:36)
[2020-01-22 00:18] VITALS: BP 140/73
[2020-01-22] MEDS ORDERED: RT-ALBUTEROL INHALER HFA (VENTOLIN HFA) 18 GM IH PRN (02:15)
[2020-01-22 03:34] VITALS: BP 189/90
[2020-01-22] MEDS: inSUlin ASPART (NovoLOG) 1 UNIT/0.01 ML (CHARGE PER UNIT) SC SCH ×3 (05:19→16:05)
[2020-01-22] MEDS: CATHETER FLUSH 10 ML SYR IV SCH ×2 (06:09→15:14)
[2020-01-22 07:30] VITALS: BP 151/90
[2020-01-22] MEDS ORDERED: RT-ALBUTEROL INHALER HFA (VENTOLIN HFA) 18 GM IH SCH (08:00)
[2020-01-22] MEDS: GABAPENTIN 300 MG (NEURONTIN) CAP PO SCH ×2 (08:42→13:49)
[2020-01-22] MEDS: CLOPIDOGREL 75 MG (PLAVIX) TABLET PO SCH (08:42)
[2020-01-22] MEDS: ASPIRIN 325 MG (5 GR) TABLET PO SCH (08:43)
[2020-01-22] MEDS: BACLOFEN 10 MG (LIORESAL) TAB PO SCH (08:43)
[2020-01-22] MEDS ORDERED: meTOprolol TARTRATE 50 MG (LOPRESSOR) TAB PO SCH (09:00)
[2020-01-22 09:03] VITALS: BP 151/90
[2020-01-22] MEDS ORDERED: amLODIPine 5 MG (NORVASC) TAB PO NR (10:45)
[2020-01-22] MEDS: RT-ALBUTEROL/IPRATROPIUM 3 ML (DUONEB) VIAL INH SCH (10:59)
--- NOTE | 2020-01-22 11:19 | Occ Therapy Progress Note ---
Therapy Progress Note OT visited with pt, pt is up ad reymundo in his room, pouring himself a glass of soda standing at the counter. Pt indicates he feels like his hand function has improved some, and he indicates he is independent with feeding, bathing, toileting, and dressing. Pt indicates he does not need any further OT txs. Pt to d/c from OT at this time due to being at his PLOF and independent with all ADLs and functional mobility. 1, visit 1052 MILAD HENDRICKSON OT Jan 22, 2020 11:18
[2020-01-22 12:03] VITALS: BP 168/91
[2020-01-22] MEDS ORDERED: METO-333 PO (12:06)
[2020-01-22] MEDS ORDERED: AMLO-250 PO (12:06)
[2020-01-22] MEDS ORDERED: ASPI-808 PO (12:06)
[2020-01-22] MEDS ORDERED: CEPH-507 PO (12:06)
[2020-01-22] MEDS ORDERED: ATOR80TA76 PO (12:06)
[2020-01-22] MEDS ORDERED: LIDOCAINE 1% INJ 20 ML 20 ML VIAL ONE (12:16)
--- NOTE | 2020-01-22 12:29 | Consultation-Cardiology ---
HPI-Cardiology Cardiology Consultation: Date of Consultation 01/22/20 Time Seen by a Provider: 09:20 Date of Admission Attending Physician Bette Romero MD Admitting Physician Mary Pérez MD Consulting Physician JUANITA PASCUAL MD, MA, FACP, FACC, FSCAI, CCDS Physician requesting consult: Dr Romero HPI: Chief Complaint: Reason for Card consultation: Cryptogenic CVA 64 yo man admitted to Dr Romero's service with shortness of breath and bilateral limb weakness, more on R, for the last several days. He notes improvement of shortness of breath. Denies cp. Notes improvement of weakness. Denies palp or syncope or swelling. Denies fever or chills Review of Systems-Cardiology Review of Systems Constitutional: malaise; No weight loss, No weight gain Eyes: No vision change Ears/Nose/Throat: No ear discharge, No nasal drainage, No recent hearing loss Respiratory: As described under HPI Cardiovascular: As described under HPI Gastrointestinal: No diarrhea, No nausea, No vomiting Genitourinary: No dysuria, No hematuria Musculoskeletal: As describe under HPI Skin: No rash, No ulcerations Psychiatric/Neurological: As described under HPI; No seizure Hematologic: No bleeding abnormalities All Other Systems Reviewed Negative Unless Noted: Yes AFG-Cstysl-Lmfxor Hx Patient Social History Alcohol Use: Denies Use Recreational Drug Use: Yes (POT) Drug of Choice: DAILY MARIJUANA USE Smoking Status: Current Everyday Smoker Type Used: Cigarettes 2nd Hand Smoke Exposure: Yes Recent Foreign Travel: No Recent Infectious Disease Expo: No Immunizations Up To Date Tetanus Booster (TDap): Less than 5yrs Date of Pneumonia Vaccine: June 20, 2013 Date of Influenza Vaccine: Nov 27, 2017 Past Medical History PMH As described under Assessment. Family Medical History Family History: Cancer 19 FATHER (SKIN) 19 MOTHER Cancer of colon 19 MOTHER Kidney disease 19 FATHER (PASSED KIDNEY FAILURE) Allergies and Home Medications Allergies Coded Allergies: No Known Drug Allergies (Unverified , 03/13/18) Home Medications Albuterol/Ipratropium 4 Gm Aero, 2 PUFF IH DAILY, (Reported) Amlodipine Besylate 5 Mg Tablet, 5 MG PO DAILY Prescribed by: BETTE ROMERO on 01/22/20 1206 Aspirin 325 Mg Tablet, 325 MG PO DAILY@0900 Prescribed by: BETTE ROMERO on 01/22/20 1206 Atorvastatin Calcium 80 Mg Tablet, 40 MG PO HS, (Reported) TAKES OF AN 80NG TAB Atorvastatin Calcium 80 Mg Tablet, 80 MG PO DAILY Prescribed by: BETTE ROMERO on 01/22/20 120 Baclofen 10 Mg Tablet, 10 MG PO BID, (Reported) Cephalexin 500 Mg Capsule, 500 MG PO BID Prescribed by: BETTE ROMERO on 01/22/20 120 Clopidogrel Bisulfate 75 Mg Tablet, 75 MG PO DAILY, (Reported) Fluticasone Propionate 9.9 Ml [place].susp, 2 SPRAY NS DAILY PRN for CONGESTION, (Reported) Gabapentin 300 Mg Capsule, 900 MG PO TID, (Reported) TAKES 3 (300MG) TABS Metoprolol Tartrate 50 Mg Tablet, 25 MG PO DAILY, (Reported) Metoprolol Tartrate 25 Mg Tablet, 25 MG PO BID Prescribed by: BETTE ROMERO on 01/22/201205 Patient Home Medication List Home Medication List Reviewed: Yes Physical Exam-Cardiology Physical Exam Vital Signs/I&O 01/22/20 01/22/20 01/22/20 01/22/20 00:18 01:00 03:34 06:46 Temp 36.4 36.2 Pulse 60 60 66 56 Resp 18 18 B/P (MAP) 140/73 (95) 189/90 (123) Pulse Ox 96 91 O2 Delivery Room Air Room Air 01/22/20 01/22/20 01/22/20 01/22/20 07:30 08:00 09:03 12:03 Temp 36.6 36.6 36.7 Pulse 72 72 53 Resp 20 B/P (MAP) 151/90 (110) 151/90 (110) 168/91 (116) Pulse Ox 94 94 97 O2 Delivery Room Air Room Air Room Air Room Air 01/22/20 00:00 Intake Total 1680 ml Balance 1680 ml Capillary Refill : Less Than 3 Seconds Constitutional: AAO x 3, well-developed, other HEENT: EOMI; No xanthelasmas are seen Neck: supple, carotid bruit (carotid bruit on R; diminished carotid upstrokes ) Respiratory: No accessory muscle use; other (scattered rhonchi and exp wheezes and exp phase) Cardiovascular: regular rate-rhythm, S1 and S2, systolic murmur (soft MICHAEL at card base) Gastrointestinal: No tender; soft; No guarding, No rebound; audible bowel sounds Extremities: No clubbing, No cyanosis, No significant edema Neurologic/Psychiatric: oriented x 3, other (bilat leg and arm weakness, more on the R ) Skin: No rash on exposed areas, No ulcerations on exposed areas Data Review Labs Laboratory Tests 01/21/20 16:06: Glucometer 97 01/21/20 20:40: Glucometer 103 01/22/20 05:18: Glucometer 141H 01/22/20 11:31: Glucometer 115H Microbiology 01/20/20 Influenza Types A,B Antigen (ARIANNE) - Final, Complete 01/20/20 Urine Culture - Final, Complete Staphylococcus saphrophyticus Laboratory Tests 01/20/20 15:50 01/21/20 04:40 A/P-Cardiology Assessment/Admission Diagnosis CVA associated with R-sided weakness. CT head on 01/20/20 showed subacute infarct involving the parasagittal posterior left frontal/parietal region of the vertex and a low density involving the posterior right temporal lobe/occipital region which is concerning for subacute infarct. CVA being managed by Dr Romero Severe carotid arterial disease reported on CT angio of head neck of 01/20/20: occluded L common carotid and severely stenosed R internal carotid (associated also with thrombus) CAD. Last card cath on 07/28/13 showed widely patent stents in the proximal LAD. These are known to be overlapping stents. this distal stent is Promus element 2.75 x 16 mm stnet placed in July 2012, the proximal stent is Promus Premier 3 x 16 mm stent placed in June 2013. 50-60% mid vessel LAD stenosis with a FFR across the lesion of 0.82, indicating that this is not hemodynamically signif icant. 50% ostial stenosis of the first diagonal branch with FFR 0.88. 50% distal RCA, prior to origin of the posterior descending branch, FFR 0.85. LVEF 55% Chronic asymptomatic sinus bradycardia HTN - however today he is exhibiting relatively low blood pressure HLP Tobaccoism - cessation advised H/O marijuana and heavy EtOH use H/O hepatitis C followed at the [facility] COPD Chronically abnormal EKG that shows LVH with repolarization abnormalities Discussion and Recomendations * This does not appear to be a cryptogenic stroke. It appears to be a case of CVA due to severe/critical carotid arterial disease. I called Dr Romero, his hospitalist managing his CVA, and discussed the case with her in detail. I recommend transfer to / consultation at a tertiary care center with neurology and vascular surgery services * Agree with continuing DAPT * Pt counselled in tobacco and street drug avoidance Clinical Quality Measures DVT/VTE Risk/Contraindication: Risk Factor Score Per Nursin RFS Level Per Nursing on Admit: 4+=Very High Stroke: Date of last known well: Jan 20, 2020 Symptoms onset unknown: Yes JUANITA PASCUAL MD FACP FACC CCDS Jan 22, 2020 12:29
[2020-01-22 15:55] VITALS: BP 164/90
[2020-01-22] MEDS: ENOXAPARIN 40 MG/0.4 ML (LOVENOX) SYR SQ SCH (16:05)
[2020-01-22] MEDS ORDERED: meTOprolol TARTRATE 25 MG (LOPRESSOR) TABLET PO SCH (21:00)
[2020-01-23] MEDS ORDERED: amLODIPine 5 MG (NORVASC) TAB PO SCH (09:00)
== END 2020-01-22 17:26 | disposition short-term general hospital (02) | DRG 65 ==
LOC: EDUNIT# 15:15 → ER 15:19 → 4TH 18:45
PROVIDERS: ADMIT Family Medicine; ATTEND Family Medicine
DX: I63.232 Cerebral infarction due to unspecified occlusion or stenosis of left carotid arteries (principal); G81.91 Hemiplegia, unspecified affecting right dominant side; N39.0 Urinary tract infection, site not specified; G83.14 Monoplegia of lower limb affecting left nondominant side; I65.21 Occlusion and stenosis of right carotid artery; R26.81 Unsteadiness on feet; R29.703 NIHSS score 3; I25.10 Atherosclerotic heart disease of native coronary artery without angina pectoris; Z20.828 Contact with and (suspected) exposure to other viral communicable diseases; F17.210 Nicotine dependence, cigarettes, uncomplicated; R00.0 Tachycardia, unspecified; I10 Essential (primary) hypertension; E78.5 Hyperlipidemia, unspecified; E78.00 Pure hypercholesterolemia, unspecified; J44.9 Chronic obstructive pulmonary disease, unspecified; G62.9 Polyneuropathy, unspecified; F41.9 Anxiety disorder, unspecified; F32.9 Major depressive disorder, single episode, unspecified; B19.20 Unspecified viral hepatitis C without hepatic coma; M19.91 Primary osteoarthritis, unspecified site; M54.9 Dorsalgia, unspecified; I25.2 Old myocardial infarction; F12.10 Cannabis abuse, uncomplicated; Z95.5 Presence of coronary angioplasty implant and graft; Z90.49 Acquired absence of other specified parts of digestive tract
CPT/HCPCS: 36415; 36600; 70450; 70496; 70498; 70551; 71045; 80053; 80061; 80306; 80320; 81000; 82140; 82805; 82962; 85025; 85610; 85730; 87077; 87081; 87088; 87635; 87804; 93306; 94640; 94760

== ENCOUNTER 2020-03-23 09:43 | Emergency (ER) | payer OTHER ==
[~2020-03-23] VITALS: Ht 182.8 cm; Wt 79.3 kg
[~2020-03-23 09:43] MED LIST changes: +ASPI-808 PO; +ATOR80TA76 PO; +CEPH-507 PO; +FLUT9.9S NS; +METO50TA15 PO
--- NOTE | 2020-03-23 09:55 | NUR ---
To CT accompanied by this nurse.
[2020-03-23 10:05] LABS: ALBUMIN 4.2 GM/DL (3.2-4.5); CHLORIDE 101 MMOL/L (98-107); POTASSIUM 3.5 MMOL/L (3.6-5.0); SODIUM 141 MMOL/L (135-145)
--- NOTE | 2020-03-23 10:05 | NUR ---
Return from CT; pt given warm blanket.
[2020-03-23 10:06] LABS: BASOPHILS # (AUTO) 0.1 10^3/uL (0.0-0.1); BASOPHILS % (AUTO) 1 % (0-10); EOSINOPHILS # (AUTO) 0.2 10^3/uL (0.0-0.3); EOSINOPHILS % (AUTO) 1 % (0-10); HEMATOCRIT 47 % (40-54); HEMOGLOBIN 15.7 g/dL (13.3-17.7); LYMPHOCYTES % (AUTO) 18 % (12-44); MEAN CORPUSCULAR HEMOGLOBIN 30 pg (25-34); MEAN CORPUSCULAR HGB CONC 33 g/dL (32-36); MEAN CORPUSCULAR VOLUME 89 fL (80-99); MEAN PLATELET VOLUME 10.9 fL (9.0-12.2); MONOCYTES % (AUTO) 8 % (0-12); NEUTROPHILS # (AUTO) 8.2 10^3/uL (1.8-7.8); NEUTROPHILS % (AUTO) 72 % (42-75); PLATELET COUNT 192 10^3/uL (130-400); WHITE BLOOD COUNT 11.5 10^3/uL (4.3-11.0)
[2020-03-23 10:07] LABS: CALCIUM 9.5 MG/DL (8.5-10.1)
[2020-03-23 10:08] LABS: GLUCOSE 142 MG/DL (70-105); TOTAL PROTEIN 7.6 GM/DL (6.4-8.2)
[2020-03-23 10:09] LABS: CARBON DIOXIDE 28 MMOL/L (21-32)
[2020-03-23 10:10] LABS: BILIRUBIN,TOTAL 1.2 MG/DL (0.1-1.0)
[2020-03-23 10:11] LABS: ALKALINE PHOSPHATASE 87 U/L (40-136)
[2020-03-23 10:12] LABS: CREATININE SERUM 1.14 MG/DL (0.60-1.30); GFR ESTIMATED > 60
[2020-03-23 10:13] LABS: BUN/CREATININE RATIO 11
[2020-03-23 10:14] LABS: ALANINE AMINOTRANSFERASE 17 U/L (0-55)
--- NOTE | 2020-03-23 10:14 | Diagnostic Imaging Report ---
INDICATION: Weakness and dizziness. TECHNIQUE: Multiple contiguous axial images were obtained through the brain without the use of intravenous contrast. Auto Exposure Controls were utilized during the CT exam to meet ALARA standards for radiation dose reduction. COMPARISON: Comparison is made to the prior study of 01/20/2020. FINDINGS: There is no acute intracranial hemorrhage. There is no subdural or epidural collection. There is an old infarct in the right parietal cortex, similar to the previous study. There is no overt acute ischemic change. Ventricles are normal in size and position. Calvarial windows are unremarkable. IMPRESSION: Old right parietal infarct is similar to the previous study of 01/20/2020. No acute hemorrhage or mass effect or acute-appearing finding. Dictated by: Dictated on workstation # [id number]
[2020-03-23] MEDS ORDERED: LACTATED RINGERS 1,000 ML IV ONE ×2 (10:15→10:30)
--- NOTE | 2020-03-23 10:15 | Diagnostic Imaging Report ---
INDICATION: Stroke. FINDINGS: The lungs are clear. There is no failure, effusion, or pneumothorax. There is some flattening of the diaphragms and air trapping, chronic. IMPRESSION: No focal infiltrate or failure pattern. Dictated by: Dictated on workstation # [id number]
[2020-03-23 10:21] LABS: FIBRIN DEGRADATION PRODUCTS 0.83 UG/ML (0.00-0.49); PROTHROMBIN TIME PATIENT 13.9 SEC (12.2-14.7)
[2020-03-23 10:28] VITALS: BP 120/79
--- NOTE | 2020-03-23 10:34 | ED Neurological Problem ---
General Chief Complaint: Neuro-Stroke Like Symptoms Stated Complaint: POSSIBLE STROKE Source: patient Exam Limitations: no limitations History of Present Illness Date Seen by Provider: Mar 23, 2020 Time Seen by Provider: 09:48 Initial Comments Here with report of feeling off. States he feels globally weak and just not right. States he cannot think clearly. Did have history of a stroke on 01/20/2020 and was transferred to . Patient did have carotid artery stent placed apparently. Currently on Plavix and aspirin. States taking meds as directed. Unsure exactly what is going on today. Denies chest pain, breathing problems, nausea, vomiting or diarrhea. Onset at about 8:30 AM. Stroke activation initiated although patient not candidate for TPA due to recent stroke history. Patient was able to ambulate under her own power without assistance to the exam room from waiting room. Timing/Duration: 1 hour Severity: moderate Associated Symptoms: confusion; No fever/chills, No nausea/vomiting, No paresthesia, No seizures, No slurred speech, No trouble walking; weakness Allergies and Home Medications Allergies Coded Allergies: No Known Drug Allergies (Unverified , 03/13/18) Home Medications Albuterol/Ipratropium 4 Gm Aero, 2 PUFF IH DAILY, (Reported) Amlodipine Besylate 5 Mg Tablet, 5 MG PO DAILY Prescribed by: BETTE GARCIA on 01/22/201205 Aspirin 325 Mg Tablet, 325 MG PO DAILY@0900 Prescribed by: BETTE GARCIA on 01/22/201205 Atorvastatin Calcium 80 Mg Tablet, 80 MG PO DAILY Prescribed by: BETTE GARCIA on 01/22/201205 Baclofen 10 Mg Tablet, 10 MG PO BID, (Reported) Cephalexin 500 Mg Capsule, 500 MG PO BID Prescribed by: BETTE GARCIA on 01/22/20 120 Clopidogrel Bisulfate 75 Mg Tablet, 75 MG PO DAILY, (Reported) Fluticasone Propionate 9.9 Ml [place].susp, 2 SPRAY NS DAILY PRN for CONGESTION, (Reported) Gabapentin 300 Mg Capsule, 900 MG PO TID, (Reported) TAKES 3 (300MG) TABS Metoprolol Tartrate 25 Mg Tablet, 25 MG PO BID Prescribed by: BETTE GARCIA on 01/22/20 1206 Patient Home Medication List Home Medication List Reviewed: Yes Review of Systems Review of Systems Constitutional: see HPI; No chills, No fever Eyes: No Symptoms Reported Ears, Nose, Mouth, Throat: no symptoms reported Respiratory: No cough, No short of breath Cardiovascular: No chest pain, No edema Gastrointestinal: No abdominal pain, No nausea, No vomiting Genitourinary: no symptoms reported Musculoskeletal: see HPI Skin: no symptoms reported Psychiatric/Neurological: Denies Anxiety; Cognitive Dysfunction; Denies Headache, Denies Numbness; Weakness (Legs greater than arms) All Other Systems Reviewed Negative Unless Noted: Yes Past Ntvnkfg-Kluwsc-Ptopwg Hx Past Med/Social Hx: Reviewed Nursing Past Med/Soc Hx Patient Social History Alcohol Use: Denies Use Number of Drinks Today: GG Alcohol Beverage of Choice: Whiskey Drug of Choice: DAILY MARIJUANA USE Smoking Status: Current Everyday Smoker Type Used: Cigarettes 2nd Hand Smoke Exposure: Yes Recent Hopitalizations: No Immunizations Up To Date Tetanus Booster (TDap): Less than 5yrs Date of Pneumonia Vaccine: June 20, 2013 Date of Influenza Vaccine: Nov 27, 2017 Seasonal Allergies Seasonal Allergies: No Past Medical History Surgeries: Yes (EYES;C+L SPINE;CARDIAC CATHS-STENTS X3;BILAT CAROTID ENDART;FOOT;SKIN CA) Angioplasty, Appendectomy, Cardiac, Coronary Stent, Eye Surgery, Orthopedic, Vascular Surgery Respiratory: Yes COPD Cardiac: Yes (CARDIAC CATHS-STENTS X3; BILAT CAROTID ENDARTERECTOMIES) Coronary Artery Disease, Heart Attack, High Cholesterol, Hypertension, Peripheral Vascular Neurological: Yes (stroke Feb 19, 2020) Neuropathy, Stroke Reproductive Disorders: No Sexually Transmitted Disease: No HIV/AIDS: No Genitourinary: No Gastrointestinal: Yes (HEPATITIS C--S/P TREATMENT) Hepatitis Musculoskeletal: Yes (CHRONIC NECK AND BACK PAIN-S/P C-SPINE + L-SPINE SURGERY; L FOOT FX/ORIF) Degenerate Disk Disease, Arthritis, Chronic Back Pain, Fractures Endocrine: No HEENT: Yes (READING GLASSES;EYE SURGERY CHILD) Loss of Vision: Bilateral Hearing Impairment: Hard of Hearing Cancer: Yes Skin Did You Recieve Any Treatments: Yes What Type of Treatment Did You: Surgical Intervention Psychosocial: Yes Anxiety, Violent Behavior, Depression Integumentary: Yes (SKIN CANCER-GETS BLISTERS) Recent Skin Changes Blood Disorders: No Adverse Reaction/Blood Tranf: No Family Medical History Reviewed Nursing Family Hx Cancer 19 FATHER (SKIN) 19 MOTHER Cancer of colon 19 MOTHER Kidney disease 19 FATHER (PASSED KIDNEY FAILURE) LAST CARDIAC CATH DONE HERE IN 2013--PATENT STENTS Physical Exam Vital Signs Vital Signs - First Documented 03/23/20 10:28 Temp 36.1 Pulse 71 Resp 22 B/P (MAP) 120/79 (93) Pulse Ox 99 O2 Delivery Room Air Capillary Refill : Height, Weight, BMI Height: 6'1.00" Weight: 195lbs. 0oz. [id number]; 23.91 BMI Method:Actual General Appearance: WD/WN, no apparent distress HEENT: PERRL/EOMI, pharynx normal Neck: non-tender, full range of motion, supple, normal inspection Respiratory: lungs clear, normal breath sounds Cardiovascular: regular rate, rhythm, no murmur Gastrointestinal: non tender, soft Back: normal inspection, no CVA tenderness, no vertebral tenderness Extremities: non-tender, normal inspection Neurologic/Psychiatric: alert, oriented x 3 Crainal Nerves: normal speech, PERRL Coordination/Gait: normal gait Motor/Sensory: no sensory deficit Skin: normal color, warm/dry Stroke NIH Stroke Scale Assessment Level of Consciousness: 0=Alert (0), Level of Consciousness-Questions: 0=Answers both month/age (0), LOC Commands: 0=Performs both tasks (0), Gaze: Normal (0), Visual Perry: 0=No visual loss (0), Facial Movement (Facial Paresis): 0=Normal symmetrical mnt (0), Motor Function-Arms Right: 1=Drift (1), Motor Function-Arms Left: 1=Drift (1), Motor Function-Legs Right: 1=Drift (1), Motor Function-Legs Left: 1=Drift (1), Limb Ataxia: 2=Present in two limbs (2), Sensory: 1=Mild to Moderate loss (1), Best Language: 0=No aphasia (0), Dysarthria: 0=Normal (0), Extinction & Inattention: 1=Visual,tactile,auditory (1), Total: Stroke Thrombolytic Exclusion Age 18 or Over: No Acute intenal hemorrhage: No History of CVA: No Uncontrolled Coagulation Defec: No Intracranial Hemorrhage: No Severe Hypertension: No GI or Bleed: No Subarachnoid Hemorrhage: No Intracranial Neoplasm/Aneurysm: No Oral Anticoagulants: No Surgery or Trauma: No Puncture of Non-Compressible V: No Recent CPR: No Diabetic Hemorrhagic Retinopat: No Organ Biopsy: No Recent Obstetric Delivery: No Glucose: No Significant Hepatic Dysfunctio: No NIH Stoke Scale >22: No Bacterial Endocarditis: No Pericarditis: No Improving Symptoms: No Platelets: No Focused Exam Lactate Level 03/23/20 10:24: Lactic Acid Level 1.87 Lactic Acid Level Laboratory Tests Test 03/23/20 10:24 Lactic Acid Level 1.87 MMOL/L (0.50-2.00) Progress/Results/Core Measures Results/Orders Lab Results Laboratory Tests Test 03/23/20 09:49 03/23/20 10:24 03/23/20 10:40 03/23/20 11:40 Range/Units White Blood Count 11.5 H 4.3-11.0 10^3/uL Red Blood Count 5.30 4.30-5.52 10^6/uL Hemoglobin 15.7 13.3-17.7 g/dL Hematocrit 47 40-54 % Mean Corpuscular Volume 89 80-99 fL Mean Corpuscular Hemoglobin 30 25-34 pg Mean Corpuscular Hemoglobin Concent 33 32-36 g/dL Red Cell Distribution Width 14.0 10.0-14.5 % Platelet Count 192 130-400 10^3/uL Mean Platelet Volume 10.9 9.0-12.2 fL Immature Granulocyte % (Auto) 0 % Neutrophils (%) (Auto) 72 42-75 % Lymphocytes (%) (Auto) 18 12-44 % Monocytes (%) (Auto) 8 0-12 % Eosinophils (%) (Auto) 1 0-10 % Basophils (%) (Auto) 1 0-10 % Neutrophils # (Auto) 8.2 H 1.8-7.8 10^3/uL Lymphocytes # (Auto) 2.0 1.0-4.0 10^3/uL Monocytes # (Auto) 1.0 0.0-1.0 10^3/uL Eosinophils # (Auto) 0.2 0.0-0.3 10^3/uL Basophils # (Auto) 0.1 0.0-0.1 10^3/uL Immature Granulocyte # (Auto) 0.0 0.0-0.1 10^3/uL Prothrombin Time 13.9 12.2-14.7 SEC INR Comment 1.0 0.8-1.4 Activated Partial Thromboplast Time 26 24-35 SEC D-Dimer 0.83 H 0.00-0.49 UG/ML Sodium Level 141 135-145 MMOL/L Potassium Level 3.5 L 3.6-5.0 MMOL/L Chloride Level 101 98-107 MMOL/L Carbon Dioxide Level 28 21-32 MMOL/L Anion Gap 12 5-14 MMOL/L Blood Urea Nitrogen 12 7-18 MG/DL Creatinine 1.14 0.60-1.30 MG/DL Estimat Glomerular Filtration Rate > 60 BUN/Creatinine Ratio 11 Glucose Level 142 H 70-105 MG/DL Calcium Level 9.5 8.5-10.1 MG/DL Corrected Calcium 9.3 8.5-10.1 MG/DL Total Bilirubin 1.2 H 0.1-1.0 MG/DL Aspartate Amino Transf (AST/SGOT) 17 5-34 U/L Alanine Aminotransferase (ALT/SGPT) 17 0-55 U/L Alkaline Phosphatase 87 40-136 U/L Troponin I 0.034 H < 0.028 <0.028 NG/ML Total Protein 7.6 6.4-8.2 GM/DL Albumin 4.2 3.2-4.5 GM/DL Serum Alcohol < 10 <10 MG/DL Lactic Acid Level 1.87 0.50-2.00 MMOL/L Ammonia 35 H 11-32 UMOL/L C-Reactive Protein High Sensitivity 0.64 H 0.00-0.50 MG/DL Procalcitonin 0.03 <0.10 NG/ML Urine Color ORANGE Urine Clarity SL CLOUDY Urine pH 6.0 5-9 Urine Specific [place] >=1.030 1.016-1.022 Urine Protein 1+ H NEGATIVE Urine Glucose (UA) TRACE H NEGATIVE Urine Ketones TRACE H NEGATIVE Urine Nitrite NEGATIVE NEGATIVE Urine Bilirubin 2+ H NEGATIVE Urine Urobilinogen 4.0 < = 1.0 MG/DL Urine Leukocyte Esterase NEGATIVE NEGATIVE Urine RBC (Auto) NEGATIVE NEGATIVE Urine RBC NONE /HPF Urine WBC 0-2 /HPF Urine Squamous Epithelial Cells 0-2 /HPF Urine Crystals PRESENT H /LPF Urine Calcium Oxalate Crystals MODERATE H /LPF Urine Bacteria NEGATIVE /HPF Urine Casts PRESENT /LPF Urine Hyaline Casts 2-5 H /LPF Urine Mucus MODERATE H /LPF Urine Culture Indicated NO Urine Opiates Screen NEGATIVE NEGATIVE Urine Oxycodone Screen NEGATIVE NEGATIVE Urine Methadone Screen NEGATIVE NEGATIVE Urine Propoxyphene Screen NEGATIVE NEGATIVE Urine Barbiturates Screen NEGATIVE NEGATIVE Ur Tricyclic Antidepressants Screen NEGATIVE NEGATIVE Urine Phencyclidine Screen NEGATIVE NEGATIVE Urine Amphetamines Screen NEGATIVE NEGATIVE Urine Methamphetamines Screen NEGATIVE NEGATIVE Urine Benzodiazepines Screen NEGATIVE NEGATIVE Urine Cocaine Screen NEGATIVE NEGATIVE Urine Cannabinoids Screen POSITIVE H NEGATIVE My Orders Orders - NADINE WHEAT MD Cbc With Automated Diff (03/23/20 09:54) Protime With Inr (03/23/20 09:54) Partial Thromboplastin Time (03/23/20 09:54) Comprehensive Metabolic Panel (03/23/20 09:54) Fibrin Degradation Products (03/23/20 09:54) Troponin I (03/23/20 09:54) Ua Culture If Indicated (03/23/20 09:54) Chest 1 View, Ap/Pa Only (03/23/20 09:54) Ekg Tracing (03/23/20 09:54) Nothing By Mouth (03/23/20 Lunch) Accucheck Stat ONCE (03/23/20 09:54) Ed Iv/Invasive Line Start (03/23/20 09:54) Ed Iv/Invasive Line Start (03/23/20 09:54) Vital Signs Stroke Patient Q15M (03/23/20 09:54) Ct Head Wo-R/O Stroke (03/23/20 09:54) O2 (03/23/20 09:54) Intake & Output 06,14,22 (03/23/20 09:54) Monitor-Rhythm Ecg Trace Only (03/23/20 09:54) Dysphagia Screening Tool (03/23/20 09:54) Lipid Panel (03/24/20 06:00) Alcohol (03/23/20 09:54) Drug Screen Stat (Urine) (03/23/20 09:56) Ed Iv/Invasive Line Start (03/23/20 10:19) Lactated Ringers (Lr 1000 Ml Iv Solution (03/23/20 10:30) Lactated Ringers (Lr 1000 Ml Iv Solution (03/23/20 10:15) Lactic Acid Analyzer (03/23/20 10:20) Blood Culture (03/23/20 10:20) Hs C Reactive Protein (03/23/20 10:21) Procalcitonin (Pct) (03/23/20 10:21) Ammonia (03/23/20 10:28) Troponin I (03/23/20 11:41) Medications Given in ED Current Medications Medications Dose Ordered Sig/Lindsey Route Start Time Stop Time Status Last Admin Dose Admin Lactated Ringer's 1,000 ml @ 0 mls/hr Q0M ONCE IV 03/23/20 10:30 03/23/20 10:31 DC 03/23/20 10:25 1,000 MLS/HR Vital Signs/I&O 03/23/20 10:28 Temp 36.1 Pulse 71 Resp 22 B/P (MAP) 120/79 (93) Pulse Ox 99 O2 Delivery Room Air FSBG Bedside Testing Finger Stick Blood Glucose: 149 Blood Glucose Action Taken: yvonne notified Progress Progress Note : Progress Note Seen and evaluated on arrival. Stroke activation initiated. IV, labs, EKG and chest x-ray ordered. CT head ordered. Patient is not candidate for TPA due to recent stroke 2 months ago. 1015: Blood pressure noted to be in the 70s and 80s systolic. Second IV site initiated and LR 1 L bolus initiated. Monitor cheng ent. 1138: Patient actually doing better and does not want to stay after being offered admission. I do have significant concerns because of the slight elevation of the troponin as well as his profound hypotension earlier. The hypotension has resolved and now his blood pressures 120s to 130s systolic over 90s to 100s. I did discuss all the reasons that the patient should stay and he has declined at this point but would allow for repeat troponin evaluation. Repeat troponin ordered. I did discuss with him the risk of leaving AGAINST MEDICAL ADVICE including from stroke or heart attack. Patient states he understands but he has stuff to do. We are repeating his stroke scale now which was 8 earlier. It does appear that all of the symptoms from earlier have resolved and he only has what would be his typical residual after the previous stroke. States that his left carotid artery is completely occluded in the right carotid artery they were just able to barely get a stent and but they were able to do that. He knows that if that were to block that he would have severe stroke. We will continue to monitor the patient and we will rediscuss admission versus discharge after that has processed. 1250: Repeat troponin negative. Patient's doing better overall and still does not want to stay. Further evaluation of the patient reveals that he is living in a house with out electricity although he states he has heat. Also states that he has not ate in a couple of days except for a half of a sandwich yesterday. He did get paid today and is able to get his electricity turned back on as well as get food. We did discuss community resources available to him. We will go ahead and get him a meal now and make sure that he can tolerate and then he states he will leave A GAINST MEDICAL ADVICE. Patient was encouraged to return for any concerns and again rediscussed concerns for significant problems related to leaving including . Patient verbalized understanding. AMA form signed. Initial ECG Impression Date: Mar 23, 2020 Initial ECG Impression Time: 09:52 Initial ECG Rate: 68 Comment Sinus rhythm with artifact. T wave inversions noted inferior lateral leads. Otherwise no evidence of ST elevation PA. Interpreted by me. Normal axis. Similar to previous of July 2019. Diagnostic Imaging Diagonstic Imaging: Xray Plain Films/CT/US/NM/MRI: chest Comments [facility] [place] [place] NAME: CRISTI KRISHNAMURTHY [facility] REC#: [id number] PT STATUS: REG ER : 1955 PHYSICIAN: NADINE WHEAT MD ADMIT DATE: 03/23/20/ER Draft Date of Exam:03/23/20 CHEST 1 VIEW, AP/PA ONLY INDICATION: Stroke. FINDINGS: The lungs are clear. There is no failure, effusion, or pneumothorax. There is some flattening of the diaphragms and air trapping, chronic. IMPRESSION: No focal infiltrate or failure pattern. Dictated on workstation # [id number] Dict: 03/23/20 1011 Trans: 03/23/20 1015 [id number] Interpreted by: PERLA CARY Electronically signed by: Diagonstic Imaging: CT Plain Films/CT/US/NM/MRI: head Comments [facility] [place] [place] NAME: YESSYCRISTI [facility] REC#: [id number] PT STATUS: REG ER : 1955 PHYSICIAN: NADINE WHEAT MD ADMIT DATE: 03/23/20/ER Draft Date of Exam:03/23/20 CT HEAD WO-R/O STROKE INDICATION: Weakness and dizziness. TECHNIQUE: Multiple contiguous axial images were obtained through the brain without the use of intravenous contrast. Auto Exposure Controls were utilized during the CT exam to meet ALARA standards for radiation dose reduction. COMPARISON: Comparison is made to the prior study of 01/20/2020. FINDINGS: There is no acute intracranial hemorrhage. There is no subdural or epidural collection. There is an old infarct in the right parietal cortex, similar to the previous study. There is no overt acute ischemic change. Ventricles are normal in size and position. Calvarial windows are unremarkable. IMPRESSION: Old right parietal infarct is similar to the previous study of 01/20/2020. No acute hemorrhage or mass effect or acute-appearing finding. Dictated on workstation # [id number] Dict: 03/23/20 1009 Trans: 03/23/20 1014 [facility] [id number] Interpreted by: BRIGETTE SANDOVAL MD Electronically signed by: Departure Impression Primary Impression: TIA (transient ischemic attack) Additional Impressions: Transient hypotension Elevated troponin Disposition: 07 AGAINST MEDICAL ADVICE Condition: Stable Departure-Patient Inst. Decision time for Depature: 12:53 Referrals: YUMIKO HERNANDEZ MD (PCP/Family) Primary Care Physician Patient Instructions: Leaving Against Medical Advice, Low Blood Pressure (DC), Transient Ischemic Attack (DC) Add. Discharge Instructions: All discharge instructions reviewed with patient and/or family. Voiced understanding. You are leaving AGAINST MEDICAL ADVICE. Please return if you are having any concerns at all. Return for chest pain, breathing problems, weakness, fever or other concerns as needed. Follow-up with your doctor for recheck and further evaluation as soon as possible. Try to eat a normal diet and drink plenty of fluids. NADINE WHEAT MD Mar 23, 2020 10:34
[2020-03-23 10:47] LABS: CLARITY,URINE SL CLOUDY; COLOR,URINE ORANGE; GLUCOSE, URINE (UA) TRACE (NEGATIVE); KETONES,URINE TRACE (NEGATIVE); LEUKOCYTE ESTERASE ,URINE NEGATIVE (NEGATIVE); NITRITE,URINE NEGATIVE (NEGATIVE); PROTEIN,URINE 1+ (NEGATIVE)
--- NOTE | 2020-03-23 10:52 | NUR ---
Pt reports looking at cell phone and is now seeing "stars" in both eyes. Dr. Murphy notified.
[2020-03-23 11:02] LABS: BACTERIA,URINE NEGATIVE /HPF; BILIRUBIN,URINE 2+ (NEGATIVE); CALCIUM OXALATE CRYSTALS,UR MODERATE /LPF; SQUAMOUS EPITHELIAL CELL,UR 0-2 /HPF; WBC,URINE 0-2 /HPF
[2020-03-23 11:10] LABS: AMPHETAMINE SCREEN, URINE NEGATIVE (NEGATIVE); BARBITURATE SCREEN URINE NEGATIVE (NEGATIVE); BENZODIAZEPINES SCREEN URINE NEGATIVE (NEGATIVE); CANNABINOID SCREEN, URINE POSITIVE (NEGATIVE); COCAINE SCREEN URINE NEGATIVE (NEGATIVE); METHADONE STAT NEGATIVE (NEGATIVE); METHAMPHETAMINE SCREEN URINE S NEGATIVE (NEGATIVE); OPIATE SCREEN URINE NEGATIVE (NEGATIVE); OXYCODONE STAT NEGATIVE (NEGATIVE); PROPOXYPHENE STAT NEGATIVE (NEGATIVE); TRICYCLIC ANTIDEPRESSANTS SCRE NEGATIVE (NEGATIVE)
--- NOTE | 2020-03-23 11:35 | NUR ---
Pt reports feeling better at this time and stating he wants to leave. Dr. Murphy speaking with pt at this time.
--- NOTE | 2020-03-23 11:37 | NUR ---
Pt is willing to stay until second troponin result is back. Dr. Murphy discussed benefits of staying and risks of leaving with pt. Dr. Murphy informed pt, pt would be leaving AMA if pt decided to leave. Pt verbalized understanding.
--- NOTE | 2020-03-23 13:00 | NUR ---
Called for diet order for pt at this time.
== END 2020-03-23 13:47 | disposition left against medical advice (07) ==
LOC: EDUNIT# 09:43 → ER 09:46
DX: G45.9 Transient cerebral ischemic attack, unspecified (principal); I95.9 Hypotension, unspecified; R77.8 Other specified abnormalities of plasma proteins; J44.9 Chronic obstructive pulmonary disease, unspecified; I10 Essential (primary) hypertension; E78.00 Pure hypercholesterolemia, unspecified; I25.10 Atherosclerotic heart disease of native coronary artery without angina pectoris; I25.2 Old myocardial infarction; F17.210 Nicotine dependence, cigarettes, uncomplicated; Z85.828 Personal history of other malignant neoplasm of skin; Z80.0 Family history of malignant neoplasm of digestive organs; Z80.8 Family history of malignant neoplasm of other organs or systems; Z95.5 Presence of coronary angioplasty implant and graft; Z95.9 Presence of cardiac and vascular implant and graft, unspecified; Z79.82 Long term (current) use of aspirin
CPT/HCPCS: 36415; 70450; 71045; 80053; 80306; 80320; 81000; 82140; 83605; 84145; 84484; 85025; 85379; 85610; 85730; 86141; 87040; 93005; 93041

== ENCOUNTER 2020-03-28 12:52 | Emergency (ER) | payer OTHER ==
[~2020-03-28] VITALS: Ht 182 cm; Wt 77.0 kg
--- NOTE | 2020-03-28 13:27 | ED Fall/Injury ---
General Chief Complaint: Trauma-Non Activation Stated Complaint: FALL/HIP PAIN/SOB/COUGH/SORE THROAT Nursing Triage Note: PT PRESENTS TO ED WITH COMPLAINTS OF L NECK, AND L SHOULDER PAIN AFTER HE FELL ON MONDAY. PT DENIES A COUGH OF SOA THAT IS NEW TO HIM. PT REPORTS CHRONIC SMOKERS COUGH. Source: patient Exam Limitations: no limitations History of Present Illness Date Seen by Provider: Mar 28, 2020 Time Seen by Provider: 13:15 Initial Comments Patient is a 64-year-old male who presents to the emergency department today with a chief complaint of posterior lower cervical neck pain and left shoulder pain after a fall 3 days ago. Patient states that he had a mechanical trip and fall when he was going to shut a door of his "zfpinr-or-hfs suite". He states he missed a step and fell down onto his left side and head and neck. Patient denies any numbness, tingling, weakness. Patient is post stroke approximately February 18. He states he had some right-sided deficits at that time. He states these have improved. No new complaints of focal deficits today. Patient also has a history of chronic shortness of breath related to chronic COPD. No new changes in his shortness of breath or cough. No recent fevers, chills, body aches/myalgias. Patient states specifically his left shoulder hurts "in the joint". He also points to approximately C5-C6 T1 as the area of pain in his neck. All other review of systems reviewed and negative except as stated. Occurred: last week Severity: mild Injuries/Pain Location: no injury, neck, upper extremity (Left shoulder) Context: tripped Loss of Consciousness: no loss of consciousness Associated Symptoms (Fall): Denies Symptoms Allergies and Home Medications Allergies Coded Allergies: No Known Drug Allergies (Unverified , 03/13/18) Home Medications Albuterol/Ipratropium 4 Gm Aero, 2 PUFF IH DAILY, (Reported) Amlodipine Besylate 5 Mg Tablet, 5 MG PO DAILY Prescribed by: BETTE GARCIA on 01/22/20 120 Aspirin 325 Mg Tablet, 325 MG PO DAILY@0900 Prescribed by: BETTE GARCIA on 01/22/20 1206 Atorvastatin Calcium 80 Mg Tablet, 80 MG PO DAILY Prescribed by: BETTE GARCIA on 01/22/20 1206 Baclofen 10 Mg Tablet, 10 MG PO BID, (Reported) Cephalexin 500 Mg Capsule, 500 MG PO BID Prescribed by: BETTE GARCIA on 01/22/201205 Clopidogrel Bisulfate 75 Mg Tablet, 75 MG PO DAILY, (Reported) Fluticasone Propionate 9.9 Ml [place].susp, 2 SPRAY NS DAILY PRN for CONGESTION, (Reported) Gabapentin 300 Mg Capsule, 900 MG PO TID, (Reported) TAKES 3 (300MG) TABS Metoprolol Tartrate 25 Mg Tablet, 25 MG PO BID Prescribed by: BETTE GARCIA on 01/22/20 120 Patient Home Medication List Home Medication List Reviewed: Yes Review of Systems Review of Systems Constitutional: see HPI Eyes: No Symptoms Reported Ears, Nose, Mouth, Throat: no symptoms reported Respiratory: no symptoms reported Cardiovascular: no symptoms reported Gastrointestinal: no symptoms reported Genitourinary: no symptoms reported Musculoskeletal: joint pain (Left shoulder), muscle pain (Left shoulder), neck pain Skin: no symptoms reported Psychiatric/Neurological: No Symptoms Reported All Other Systems Reviewed Negative Unless Noted: Yes Past Waaoxbk-Jveedi-Bhbhhk Hx Patient Social History Alcohol Use: Denies Use Number of Drinks Today: Operax Alcohol Beverage of Choice: Skillatoney Drug of Choice: DAILY MARIJUANA USE Smoking Status: Current Everyday Smoker Type Used: Cigarettes 2nd Hand Smoke Exposure: Yes Recent Infectious Disease Expo: No Recent Hopitalizations: No Immunizations Up To Date Tetanus Booster (TDap): Less than 5yrs Date of Pneumonia Vaccine: June 20, 2013 Date of Influenza Vaccine: Nov 27, 2017 Seasonal Allergies Seasonal Allergies: No Past Medical History Surgeries: Yes (EYES;C+L SPINE;CARDIAC CATHS-STENTS X3;BILAT CAROTID ENDART;FOOT;SKIN CA) Angioplasty, Appendectomy, Cardiac, Coronary Stent, Eye Surgery, Orthopedic, Vascular Surgery Respiratory: Yes COPD Cardiac: Yes (CARDIAC CATHS-STENTS X3; BILAT CAROTID ENDARTERECTOMIES) Coronary Artery Disease, Heart Attack, High Cholesterol, Hypertension, Perip heral Vascular Neurological: Yes (stroke Jan 20, 2020, R sided stent placed) Neuropathy, Stroke Reproductive Disorders: No Sexually Transmitted Disease: No HIV/AIDS: No Genitourinary: No Gastrointestinal: Yes (HEPATITIS C--S/P TREATMENT) Hepatitis Musculoskeletal: Yes (CHRONIC NECK AND BACK PAIN-S/P C-SPINE + L-SPINE SURGERY; L FOOT FX/ORIF) Degenerate Disk Disease, Arthritis, Chronic Back Pain, Fractures Endocrine: No HEENT: Yes (READING GLASSES;EYE SURGERY CHILD) Loss of Vision: Bilateral Hearing Impairment: Hard of Hearing Cancer: Yes Skin Did You Recieve Any Treatments: Yes What Type of Treatment Did You: Surgical Intervention Psychosocial: Yes Anxiety, Violent Behavior, Depression Integumentary: Yes (SKIN CANCER-GETS BLISTERS) Recent Skin Changes Blood Disorders: No Adverse Reaction/Blood Tranf: No Family Medical History Cancer 19 FATHER (SKIN) 19 MOTHER Cancer of colon 19 MOTHER Kidney disease 19 FATHER (PASSED KIDNEY FAILURE) LAST CARDIAC CATH DONE HERE IN 2013--PATENT STENTS Physical Exam Vital Signs Vital Signs - First Documented 03/28/20 13:10 Temp 36.4 Pulse 47 Resp 20 B/P (MAP) 136/71 (92) Pulse Ox 98 Capillary Refill : Less Than 3 Seconds Height, Weight, BMI Height: 6'1.00" Weight: 195lbs. 0oz. 88.864138ov; 23.00 BMI Method:Actual General Appearance: WD/WN, no apparent distress HEENT: PERRL/EOMI Neck: supple, normal inspection, tender midline (C6, C7, T1 and to the right of midline) Respiratory: lungs clear, normal breath sounds, no respiratory distress, no accessory muscle use, other (Mild tenderness to palpation in the left upper chest wall) Gastrointestinal: non tender, soft Back: normal inspection Extremities: no pedal edema, no calf tenderness, normal capillary refill, other (Tenderness to palpation over the left anterior shoulder, decreased range of motion to the left arm secondary to discomfort specifically with forward flexion and abduction) Neurologic/Psychiatric: no motor/sensory deficits, alert, normal mood/affect, oriented x 3 Skin: normal color, warm/dry [place] Coma Score Best Eye Response: (4) Open Spontaneously Best Verbal Response: (5) Oriented Best Motor Response: (6) Obeys Commands [place] Total: 15 Progress/Results/Core Measures Results/Orders My Orders Orders - PAWEL DASH MD Shoulder, Left, 3 Views (03/28/20 13:27) Ct Cervical Spine Wo (03/28/20 13:27) Vital Signs/I&O 03/28/20 13:10 Temp 36.4 Pulse 47 Resp 20 B/P (MAP) 136/71 (92) Pulse Ox 98 Blood Pressure Mean: 92 Diagnostic Imaging Diagonstic Imaging: Xray, CT (cervical spine) Plain Films/CT/US/NM/MRI: other (shoulder) Comments left shoulder xray: no acute bony injuries noted; negative for fracture/ dislocation Departure Impression Primary Impression: Cervical strain, acute Qualified Codes: S16.1XXA - Strain of muscle, fascia and tendon at neck level, initial encounter Additional Impression: Contusion of shoulder, left Qualified Codes: S40.012A - Contusion of left shoulder, initial encounter Disposition: HOME, SELF-CARE Condition: Stable Departure-Patient Inst. Decision time for Depature: 14:05 Referrals: YUMIKO HERNANDEZ MD (PCP/Family) Primary Care Physician Patient Instructions: Cervical Muscle Strain (DC) Add. Discharge Instructions: Take jbuo-hoo-zocfxzj ibuprofen, 3 pills, which is 600 mg, every 6 hours as needed for pain. Always take ibuprofen with food. You can alternate ibuprofen with Tylenol as needed for pain. Apply an ice pack to the areas of soreness for 20 minutes, 3 times a day. Please follow-up with your primary care physician. Return to the emergency department for any new, worsening or emergent complaints PAWEL DASH MD Mar 28, 2020 13:27
--- NOTE | 2020-03-28 14:10 | Diagnostic Imaging Report ---
EXAMINATION: CT cervical spine without contrast. TECHNIQUE: Multiple contiguous axial images were obtained through the cervical spine without the use of intravenous contrast. Sagittal and coronal reformations through the cervical spine were then performed. All CT scans use one or more of the following dose optimizing techniques: automated exposure control, MA and/or KvP adjustment based on a patient size and exam type, or iterative reconstruction. HISTORY: Fall onto neck with pain. COMPARISON: CTA head and neck 01/20/2020. FINDINGS: Surgical changes from C4 through C6 spinal fusion. Straightening of the normal cervical lordosis may be positional or secondary to muscle spasm. No fracture is seen. Vertebral body heights are normal. The craniocervical junction is normal. Multilevel disc desiccation and loss of disc height. Multilevel mild facet hypertrophy. No greater than mild central canal stenosis at any level. Multilevel moderate foraminal stenosis secondary to uncovertebral hypertrophy and facet hypertrophy. A carotid stent is present. Soft tissues otherwise unremarkable. Limited views of the superior thorax are normal. IMPRESSION: 1. Stable degenerative changes of the cervical spine without new acute osseous abnormality. Dictated by: Dictated on workstation # [id number]
--- NOTE | 2020-03-28 14:33 | Diagnostic Imaging Report ---
Exam: Left shoulder radiograph Exam date: 03/28/2020 COMPARISON: Chest radiograph 03/23/2020 HISTORY: Left shoulder pain after fall. TECHNIQUE: 3 views left shoulder. FINDINGS: No acute fracture, dislocation, or destructive osseous process. Joint spaces are normal. The humeral head is situated appropriately within the glenohumeral joint. Partially visualized cervical fusion hardware is present. Visualized lungs are clear. Soft tissues are normal. IMPRESSION: 1. No acute osseous abnormality of the left shoulder. Dictated by: Dictated on workstation # [id number]
[2020-03-28 15:01] VITALS: BP 132/70
== END 2020-03-28 15:01 | disposition home or self-care (01) ==
LOC: EDUNIT# 12:52 → ER 12:53
DX: S16.1XXA Strain of muscle, fascia and tendon at neck level, initial encounter (principal); S40.012A Contusion of left shoulder, initial encounter; J44.9 Chronic obstructive pulmonary disease, unspecified; I10 Essential (primary) hypertension; I25.2 Old myocardial infarction; E78.00 Pure hypercholesterolemia, unspecified; I25.10 Atherosclerotic heart disease of native coronary artery without angina pectoris; F17.210 Nicotine dependence, cigarettes, uncomplicated; Z80.0 Family history of malignant neoplasm of digestive organs; Z85.828 Personal history of other malignant neoplasm of skin; Z86.73 Personal history of transient ischemic attack (TIA), and cerebral infarction without residual deficits; Z95.5 Presence of coronary angioplasty implant and graft; Z95.9 Presence of cardiac and vascular implant and graft, unspecified; Z79.82 Long term (current) use of aspirin; W01.0XXA Fall on same level from slipping, tripping and stumbling without subsequent striking against object, initial encounter
CPT/HCPCS: 72125; 73030

== ENCOUNTER 2020-04-30 09:37 | Inpatient (IN) | payer MEDICARE, OTHER ==
[~2020-04-30] VITALS: Ht 185.4 cm; Wt 72.7 kg
[2020-04-30 09:15] VITALS: BP 167/84
[~2020-04-30 09:37] MED LIST changes: +ALPRAZolam 0.25 MG (XANAX) TAB PO PRN; +ASPI325T32 PO; +BISACODYL 10 MG SUPP (DULCOLAX) PR PRN; +BUDE10.27 IH; +CALCIUM CARBONATE 500 MG (TUMS) TAB.CHEW PO PRN; +DOCUSATE SODIUM 100 MG (COLACE) CAP PO PRN; +FLEET ENEMA ADULT 1 EA BTL PR PRN; +LOPERAMIDE 2 MG (IMODIUM) TABLET PO PRN; +MELATONIN 3 MG TABLET PO PRN; +ONDANSETRON 4 MG (ZOFRAN) ORAL DISSOLVE TAB PO PRN; +diphenhydrAMINE 25 MG TAB (BENADRYL) PO PRN
[2020-04-30] MEDS: SENNA W/DOCUSATE (SENOKOT S) TABLET PO SCH ×2 (09:54→21:04)
[2020-04-30] MEDS: polyethylene glycoL POWDER 17 GM (MIRALAX) PACK PO SCH ×2 (09:54→21:05)
[2020-04-30] MEDS: DOCUSATE SODIUM 100 MG (COLACE) CAP PO SCH ×2 (09:54→21:04)
[2020-04-30] MEDS ORDERED: BACLOFEN 10 MG (LIORESAL) TAB PO PRN (10:30)
--- NOTE | 2020-04-30 11:11 | Physical Therapy Evaluation ---
PT Evaluation-General Medical Diagnosis Admission Date Apr 30, 2020 at 09:37 Medical Diagnosis: CVA Onset Date: Apr 30, 2020 Therapy Diagnosis Therapy Diagnosis: weakness; abn gait Height/Weight Height (Feet): 6 Height (Inches): 1.00 Weight (Pounds): 195 Weight (Ounces): 0 Precautions Precautions/Isolations: Fall Prevention, Standard Precautions Referral Physician: Randall Reason for Referral: Evaluation/Treatment Medical History Pertinent Medical History: Alcoholism, CAD, COPD, HTN, Neuropathy, PVD, Smoking Additional Medical History Marijuana and methamphetamine use. CVA in January 2020 with carotid stent Current History Pt admitted to acute care due to right sided weakness and inability to get up; admitted to ICU with CVA with right sided weakness. Transferred to ARU for continued medical management and skilled therapy services. Reviewed History: Yes Social History Home: Single Level Current Living Status: Friend (2 friends) Entry Into Home: Stairs With Railing PT Steps Into Home: 3 (3-4) PT Steps Inside Home: 0 Pt reports he rents the home and has 2 roommates and expects 2 more people to move in soon. Prior Prior Level of Function SCALE: Activities may be completed with or without assistive devices. 9-Fwdjzwzrqb-icmbbrq completes the activity by him/herself with no assistance from a helper. 5-Set-up or Clean-up Assistance-helper sets up or cleans up; patient completes activity. Byron assists only prior to or following the activity. 4-Supervision or Touching Assistance-helper provides verbal cues and/or touching/steadying and/or contact guard assistance as patient completes activity. Assistance may be provided throughout the activity or intermittently. 3-Partial/Moderate Assistance-helper does LESS THAN HALF the effort. Byron lifts, holds or supports trunk or limbs, but provides less than half the effort. 2-Substantial/Maximal Assistance-helper does MORE THAN HALF the effort. Byron lifts or holds trunk or limbs and provides more than half the effort. 5-Trpxhuamr-ltjqjg does ALL the effort. Patient does none of the effort to complete the activity. Or, the assistance of 2 or more helpers is required for the patient to complete the activity. If activity was not attempted, code reason: 7-Patient Refused. 9-Not Applicable-not attempted and the patient did not perform the activity before the current illness, exacerbation or injury. 10-Not Attempted due to Environmental Limitations-(lack of equipment, weather restraints, etc.). 88-Not Attempted due to Medical Conditions or Safety Concerns. Bed Mobility: 6 Transfers (B,C,W/C): 6 Gait: 6 Stairs: 6 Indoor Mobility (Ambulation): Independent Stairs: Independent Pt reports he was independent with all mobility. Reports he spends most of his day in bed watching TV. Does not drive but does mobilize in the community, friends drive him. PT Evaluation-Current Subjective Pt agreeable to PT evaluaiton. Reports he feels his right leg is stronger today compared to yesterday. Reports he had a CVA in January 2020 but felt he had fully recovered. No complaints of pain today. Pt/Family Goals His goal is to return home as before and care for himself. Objective Patient Orientation: Person, Place, Time, Situation ROM/Strength ROM Lower Extremities WNL Strength Lower Extremities Left side strength is grossly 4+/5 throughout; left side strength is grossly 3-/ 5 throughout, able to move through full range but with difficulty. Integumentary/Posture Integumentary Refer to nursing notes for full assessment. Bowel Incontinence: No Bladder Incontinence: No Posture Rounded shoulders and forward head and tends to stand slightly forward flexed. Neuromuscular (Tone, Coordination, Reflexes) Poor motor control right LE and UE noted; reflexes diminished right LE and coordination impaired; not noted tone concerns Sensory Vision: Wears Glasses Hearing: Functional Hand Dominance: Right Sensation Right Lower Extremit: Impaired Sensation Left Lower Extremity: Intact Sensation Lower Extremities Reports his right LE feels "like it's asleep" from the knee down. Transfers Roll Left & Right (QC): 4 Sit to Lying (QC): 3 (assist with right LE) Lying to Sitting/Side of Bed(Q: 3 (assist with right LE) Sit to Stand (QC): 3 (min to CGA with skilled cues for sequencing and safety; difficulty managing right LE and it tends to slide out from under him) Chair/Nau-mz-Rrcff Xfer(QC): 3 (min assist for balance and safety) Toilet Transfer (QC): 3 Car Transfer (QC): 3 Min assist with transfers for safety and balance management; slightly unsteady when upright. Gait Does the Patient Walk?: Yes Mode of Locomotion: Walk Anticipated Mode of Locomotion: Walk Walk 10 feet (QC): 3 Walk 50 ft with 2 Turns(QC): 3 Walk 150 ft (QC): 3 Walking 10ft/uneven surface-QC: 3 Gait Assistive Device: FWW Comments/Gait Description Min assist with giat for balance and safety; slightly unsteady and occasionally needs min assist to balance; pt able to walk up to 150 ft with FWW; able to make turns x 2 with walking 50 ft but min assist for safety and skilled cues Wheelchair Training Wheel 50 ft with 2 turns (QC): 9 Wheel 150 ft (QC): 9 Stairs 1 Step (curb) (QC): 3 (min assist and skilled cues for sequencing. ) 4 Steps (QC): 88 12 Steps (QC): 88 Walking Assistive Device: Walker Balance Sitting Static: Fair Sitting Dynamic: Fair (risk of LOB in sitting; unsafe to sit EOB unsupervised. ) Standing Static: Poor Standing Dynamic: Poor Picking up an Object (QC): 88 Treatment Co treat part of visit with OT due to the need for the skill of 2 clinicians to safely and effectively complete tasks. Pt completed a shower with self care tasks as we cotreated. OT addressed use and placment of UE for shower and clothing as PT addressed gross motor skills to complete transfers, multiple sit stand and core stability/balance with static and dynamic sitting as he showered. Standing static and dynamic balance assist as well, requiring min assist in standing and seated unsupported (on the shower chair). Assessment/Needs Post CVA with noted right side affected and he presents with functional strength and balance deficits as well as impaired functional activity tolerance. These deficits impair functional bed mobility, transfers and gait progression. He als o demonstrates slight diminished safety awareness and insight into his deficits. He will benefit from skilled PT to address his mobility and enhance safety and performance with all transfers, bed mobility and gait progression. He has potential to improve and is cooperative with intervention this date. Rehab Potential: Good PT Short Term Goals Short Term Goals Time Frame: May 08, 2020 Sit to lyin Lying to sitting on side of be: 4 Sit to stand: 4 Walk 150 feet: 4 PT Penitentiary Goals Penitentiary Goals PT Penitentiary Goals Time Frame: May 28, 2020 Roll Left & Right (QC): 6 Sit to Lying (QC): 6 Lying-Sitting on Side/Bed(QC): 6 Sit to Stand (QC): 6 Chair/Ixx-tn-Xakng Xfer(QC): 6 Toilet Transfer (QC): 6 Car Transfer (QC): 6 Does the Patient Walk: Yes Walk 10 feet (QC): 6 Walk 50ft with 2 Turns (QC): 6 Walk 150 ft (QC): 6 Walking 10ft on Uneven Surface: 6 1 Step (curb) (QC): 6 4 Steps (QC): 6 12 Steps (QC): 9 Picking up an Object (QC): 4 Does the Pt use WC or Scooter?: No Wheel 50 feet with 2 turns (QC: 9 Wheel 150 feet: 9 PT Plan Problem List Problem List: Activity Tolerance, Functional Strength, Safety, Balance, Gait, Transfer, Bed Mobility Treatment/Plan Treatment Plan: Continue Plan of Care Treatment Plan: Bed Mobility, Education, Functional Activity Dutch, Functional Strength, Group Therapy, Gait, Safety, Therapeutic Exercise, Transfers Treatment Duration: May 28, 2020 Frequency: At least 5 of 7 days/Wk (IRF) Estimated Hrs Per Day: 1.5 hours per day Patient and/or Family Agrees t: Yes Safety Risks/Education Patient Education: Gait Training, Transfer Techniques, Safety Issues Teaching Recipient: Patient Teaching Methods: Demonstration, Discussion Response to Teaching: Reinforcement Needed Discharge Recommendations Therapy Discharge Recommendati: Post Acute PT Time/GCodes Time In: 915 Time Out: 950 ([id number] (co treat)) Total Billed Treatment Time: 75 Total Billed Treatment visit x 2 EVM 15 FA 60 (co treat 40 min) CIPRIANO MORROW PT Apr 30, 2020 11:11
--- NOTE | 2020-04-30 11:28 | Occupational Therapy Eval ---
OT Evaluation-General/PLF Medical Diagnosis Admission Date Apr 30, 2020 at 09:37 Medical Diagnosis: CVA with right sided weakness Onset Date: Apr 30, 2020 Therapy Diagnosis Therapy Diagnosis: Weakness, Decreased ADL skills Height/Weight Height (Feet): 6 Height (Inches): 1.00 Weight (Pounds): 195 Weight (Ounces): 0 Precautions Precautions/Isolations: Fall Prevention, Standard Precautions Weight Bear Status Weight Bearing Restriction: Weight Bearing/Tolerated Referral Physician: Dr. Pereira Referral Reason: Activity Tolerance, Self Care, Evaluation/Treatment, Strengthening/ROM Medical History Pertinent Medical History: Alcoholism, CAD, COPD, HTN, Neuropathy, PVD, Smoking Additional Medical History Back surgery, Neuropathy Current History Pt. came to ER with CVA. Pt. exhibiting right sided weakness. Reviewed History: Yes Social History Home: Single Level Current Living Status: Friend Entry Into Home: Stairs With Railing Steps Into Home: 3 ADL-Prior Level of Function SCALE: Activities may be completed with or without assistive devices. 7-Emvmarsfvw-akhdtqn completes the activity by him/herself with no assistance from a helper. 5-Set-up or Clean-up Assistance-helper sets up or cleans up; patient completes activity. [place] assists only prior to or following the activity. 4-Supervision or Touching Assistance-helper provides verbal cues and/or touching/steadying and/or contact guard assistance as patient completes activity. Assistance may be provided throughout the activity or intermittently. 3-Partial/Moderate Assistance-helper does LESS THAN HALF the effort. [place] lifts, holds or supports trunk or limbs, but provides less than half the effort. 2-Substantial/Maximal Assistance-helper does MORE THAN HALF the effort. [place] lifts or holds trunk or limbs and provides more than half the effort. 2-Hhnxbrudb-cafroi does ALL the effort. Patient does none of the effort to complete the activity. Or, the assistance of 2 or more helpers is required for the patient to complete the activity. If activity was not attempted, code reason: 7-Patient Refused. 9-Not Applicable-not attempted and the patient did not perform the activity before the current illness, exacerbation or injury. 10-Not Attempted due to Environmental Limitations-(lack of equipment, weather restraints, etc.). 88-Not Attempted due to Medical Conditions or Safety Concerns. ADL PLOF Comments Pt. states that he rents a house and has a couple of roommates. He states that several more people will be moving in with him upon return home. Pt. verbalizes that he is independent with daily tasks, but does not drive or work. He sustained a CVA in January, but has no residual issues from it. Pt. reports that he mainly lays in bed and watches TV. Self Care: Independent Functional Cognition: Independent DME/Equipment: Tub/Shower DME/Equipment Comments Pt. states that he probably has access to an older walker, but will likely need a new one. No other equipment available. Occupation: Disabled Drive Self: No OT Current Status Subjective No pain reported. Appearance Pt. up in therapy gym with PT. Agrees to work with OT as well. Mental Status/Objective Patient Orientation: Person, Place Attachments: IV Current Glasses/Contacts: Yes Hand Dominance: Right Upper Extremity ROM Pt. has ROM in bilateral UE that is functional, however, right UE is slower with movements and demonstrates at approximately 100 degrees whereas left UE flexes fully at shoulder level. Upper Extremity Coordination Intact in right UE, but slower. Pt. verbalizes that he does have some issues with holding utensils and other things. Observed pt. texting on phone and this task seemed uncoordinated for him in nature. Upper Extremity Sensation Intact per pt. Upper Extremity Strength 4/5 left UE throughout proximally. 5/5 distally Right UE-3/5 proximally, 4/5 distally ADL-Treatment Eating (QC): 4 (per pt.) Oral Hygiene (QC): 7 (Pt. declines. Does not have dentation.) Shower/Bathe Self (QC): 3 (Mod assist for standing in shower during dynamic tasks.) Upper Body Dressing (QC): 88 (Street clothing not available. His clothes that he came in with are being washed, and daughter to bring some later.) Lower Body Dressing (QC): 3 (Mod assist for balance in stance while doffing pants over hips.) On/Off Footwear (QC): 1 (Please see note below.) Toileting Hygiene (QC): 3 Other Treatments PT/OT completed partial co-treatment with pt. due to low endurance, poor balance, and fatigue level. OT facilitated ADL skills, UE assessment and exercise, while PT focused on mobility, transfers, and right LE weakness. Pt. required assistance while donning slipper socks, for dynamic sitting balance from PT while OT addressed coordination issues with donning the sock. OT brought in foam built up handles for easier use with utensils if pt. should need them. OT also brought in therapy sponge and red theraband to increase overall strength in right UE. Pt. is educated on and practices 3 bilateral UE exercises x 15 reps each, in all planes. Notable difference in strength and mobility with right UE when performing band exercises than with left. All needs met up in chair at end of session. Chair alarm placed due to some impulsive behavior. Education OT Patient Education: Correct positioning, Exercise program, Modified ADL techniques, Progress toward Goal/Update tx plan, Purpose of tx/functional activities, Reviewed precautions, Rehab process, Transfer techniques Teaching Recipient: Patient Teaching Methods: Demonstration, Discussion Response to Teaching: Verbalize Understanding, Return Demonstration, Reinforcement Needed OT Short Term Goals Short Term Goals Time Frame: May 07, 2020 Eatin Oral hygiene: 5 Toileting hygiene: 4 Shower/bathe self: 4 Upper body dressin Lower body dressin Putting on/taking off footwear: 3 OT Proced Tech Goals [facility] Goals Time Frame: May 14, 2020 Eating (QC): 6 Oral Hygiene (QC): 6 Toileting Hygiene (QC): 6 Shower/Bathe Self (QC): 4 Upper Body Dressing (QC): 6 Lower Body Dressing (QC): 4 On/Off Footwear (QC): 4 Additional Goals: 1-Demonstrate ADL Tasks, 2-Verbalize Understanding, 3- ImproveStrength/Dutch 1=Demonstrate adherence to instructed precautions during ADL tasks. 2=Patient will verbalize/demonstrate understanding of assistive devices/modifications for ADL. 3=Patient will improve strength/tolerance for activity to enable patient to perform ADL's. OT Education/Plan Problem List/Assessment Assessment: Decreased Activ Tolerance, Impaired I ADL's, Impaired Self-Care Skills Discharge Recommendations Plan/Recommendations: Continue POC Therapy Discharge Recommendati: Home & Family, Post Acute OT Comment Equipment needs to be determined. Treatment Plan/Plan of Care Treatment,Training & Education: Yes Patient would benefit from OT for education, treatment and training to promote independence in ADL's, mobility, safety and/or upper extremity function for ADL's. Plan of Care: ADL Retraining, Functional Mobility, UE Funct Exercise/Act Treatment Duration: May 14, 2020 Frequency: At least 5 of 7 days/Wk (IRF) Estimated Hrs Per Day: 1.5 hours per day Agreement: Yes Rehab Potential: Good Time/GCodes Start Time: 09:50 Stop Time: 11:05 Total Time Billed (hr/min): 75 Billed Treatment Time 1125-6512 1, EVM x 10minutesOT only 7949-1316 FA x 20minutes, ADL x 20minutes- Co-treatment with PT. Please see above note for designated roles. [id number] ADL x 15minutes, Ex x 10minutes OT only GILBERTO SOTO OT Apr 30, 2020 11:28
[2020-04-30] MEDS: ENOXAPARIN 40 MG/0.4 ML (LOVENOX) SYR SQ SCH (11:42)
--- NOTE | 2020-04-30 12:03 | PM&R Post Admission Assessment ---
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 Patient has a h/o meth use and THC but is ready to stop those activities. service was in [employer] from [id number] and worked in [place] after his service. Patient is currently doing well and working on his phone while I interview him. MRI will be done to confirm CVA exact location. Checked meds and labs. Med-surg course by Jaycob Mariano, MSIV: Hospital Course: Jason Matute is a 64 y/o male that was admitted to [facility] on 04/28/20 and is being discharged to [facility] Rehab unit today 04/30/20. He was admitted for subacute CVA, NSTEMI, CAD and HTN. PMH includes an extensive cardiovascular hx, HTN, Stroke, CAD, COPD and Illicit drug use. While admitted he was under the care of Internal Medicine Dr. Romero, Cardiology Dr. Davis and was seen by PT/OT/ ST. CT of the the head was negative for acute CVA. CTA showed known carotid stenosis with the left side being 100% occluded and the right having 50% occlusion by a thrombus. Transport to higher care facility was explored but resulted in [facility] declining. The patient was not a candidate for surgical intervention and maximal medical therapy was initiated. His labs upon admission showed leukocytosis, elevated troponin and positive drug screen (Meth and Cannabis). The patient had right sided weakness. His treatment course included maximal medical therapy. His labs have reached a normal or appropriate value. He has begun to gain strength back in right side extremities. He is feeling better overall. Jason will be heading to the rehab unit with Dr. Beck to increase his strength and coordination. He is in stable condition. The following information is only a summary of admission while at [facility] and is not all inclusive. Please review entire chart for more information. SOCIAL HISTORY: -ETOH--OCCASIONAL USE, HX OF HEAVY USE -DRUGS--DAILY MARIJUANA USE, ALSO METH USE. DENIES IV DRUG USE -SMOKES 2 PPD PAST SURGICAL HISTORY: -LAST CARDIAC CATH DONE HERE IN 2013--PATENT STENTS -CARDIAC CATHS WITH STENTS X 3 -BILATERAL CAROTID ENDARTERECTOMY -RIGHT CAROTID STENT 12/01/20 AT -RIGHT EYE SURGERY CHILD -CERVICAL SPINE AND LUMBAR SPINE SURGERIES -LEFT FOOT FRACTURE/ ORIF -SKIN CANCER REMOVAL -APPENDECTOMY Past Rhffwvj-Ncgyff-Deozqr Hx Past Med/Social Hx: Reviewed Nursing Past Med/Soc Hx, Reviewed and Corrections made Patient Social History Marrital Status: single Employed/Student: unemployed Alcohol Use: Regular Use Alcohol Beverage of Choice: Whiskey Drug of Choice: DAILY MARIJUANA USE, HX METH USE, DENIES IV USE Smoking Status: Current Everyday Smoker Type Used: Cigarettes 2nd Hand Smoke Exposure: Yes Recent Hopitalizations: No Immunizations Up To Date Tetanus Booster (TDap): Less than 5yrs Date of Pneumonia Vaccine: June 20, 2013 Date of Influenza Vaccine: Jan 21, 2020 Seasonal Allergies Seasonal Allergies: No Past Medical History Surgeries: Angioplasty, Appendectomy, Cardiac, Coronary Stent, Eye Surgery, Orthopedic, Vascular Surgery Cardiac: Coronary Artery Disease, Heart Attack, High Cholesterol, Hypertension, Peripheral Vascular Neurological: Neuropathy, Stroke, TIA Reproductive: No Sexually Transmitted Disease: No HIV/AIDS: No Gastrointestinal: Hepatitis Musculoskeletal: Degenerate Disk Disease, Arthritis, Chronic Back Pain, Fractures Loss of Vision: Bilateral Hearing Impairment: Hard of Hearing Cancer: Skin Did You Recieve Any Treatments: Yes What Type of Treatment Did You: Surgical Intervention Psychosocial: Anxiety, Violent Behavior, Depression History of Blood Disorders: No Adverse Reaction to Blood Parekh: No Family History Cancer 19 FATHER (SKIN) 19 MOTHER Cancer of colon 19 MOTHER Kidney disease 19 FATHER (PASSED KIDNEY FAILURE) SOCIAL HISTORY: -ETOH--OCCASIONAL USE, HX OF HEAVY USE -DRUGS--DAILY MARIJUANA USE, ALSO METH USE. DENIES IV DRUG USE -SMOKES 2 PPD PAST SURGICAL HISTORY: -LAST CARDIAC CATH DONE HERE IN 2013--PATENT STENTS -CARDIAC CATHS WITH STENTS X 3 -BILATERAL CAROTID ENDARTERECTOMY -RIGHT CAROTID STENT 01/21/20 AT -RIGHT EYE SURGERY CHILD -CERVICAL SPINE AND LUMBAR SPINE SURGERIES -LEFT FOOT FRACTURE/ ORIF -SKIN CANCER REMOVAL -APPENDECTOMY Prior Level of Function Bed Mobility: 6 Transfers: 6 Gait: 6 Stairs: 6 Indoor Mobility (Ambulation): Independent Stairs: Independent Self Care: Independent Functional Cognition: Independent Occupation: Disabled Drive Self: No Current Level of Fuctioning Roll Left to Right: 4 Sit to Lyin (assist with right LE) Lying to Sitting/Side of Bed: 3 (assist with right LE) Sit to Stand: 3 (min to CGA with skilled cues for sequencing and safety; difficulty managing right LE and it tends to slide out from under him) Chair/Ajw-ur-Hlhto Xfer: 3 (min assist for balance and safety) Car Transfer: 3 Does the Patient Walk: Yes Mode of Locomotion: Walk Anticipated Mode of Locomotion: Walk Walk 10 feet: 3 Walk 50 ft with 2 Turns: 3 Walk 150 ft: 3 Walking 10ft on uneven surface: 3 Gait Assistive Device: FWW Wheel 50 ft with 2 turns: 9 Wheel 150 ft: 9 1 Step (curb): 3 (min assist and skilled cues for sequencing. ) 4 Steps: 88 Walking Assistive Device: Walker 12 Steps: 88 Picking up an Object: 88 Eatin (per pt.) Oral Hygiene: 7 (Pt. declines. Does not have dentation.) Shower/Bathe Self: 3 (Mod assist for standing in shower during dynamic tasks.) Upper Body Dressin (Street clothing not available. His clothes that he came in with are being washed, and daughter to bring some later.) Lower Body Dressin (Mod assist for balance in stance while doffing pants over hips.) On/Off Footwear: 1 (Please see note below.) Toileting Hygiene: 3 PM&R Allergy/Meds/Data Review Allergies Coded Allergies: No Known Drug Allergies (Unverified , 03/13/18) Home Medications Scheduled Aspirin (Aspirin EC), 325 MG PO DAILY, (Reported) Atorvastatin Calcium (Atorvastatin Calcium), 80 MG PO HS, (Reported) Clopidogrel Bisulfate (Plavix), 75 MG PO DAILY, (Reported) Metoprolol Tartrate (Metoprolol Tartrate), 25 MG PO BID, (Reported) Scheduled PRN Albuterol/Ipratropium (Combivent Respimat Inhal [place]), 1 PUFF IH QID PRN for SHORTNESS OF BREATH, (Reported) Baclofen (Baclofen), 10 MG PO TID PRN for MUSCLE SPASMS, (Reported) Budesonide/Formoterol Fumarate (Budesonide-Formoterol 80-4.5), 2 PUFF IH BID PRN for SHORTNESS OF BREATH, (Reported) Gabapentin (Neurontin), 900 MG PO TID PRN for PAIN-BREAKTHROUGH, (Reported) Discontinued Medications Amlodipine Besylate (Amlodipine Besylate), 5 MG PO DAILY Discontinued Reason: Duplicate Order Aspirin (Aspirin), 325 MG PO DAILY@0900 Discontinued Reason: Duplicate Order Atorvastatin Calcium (Atorvastatin Calcium), 80 MG PO DAILY Discontinued Reason: Duplicate Order Cephalexin (Keflex), 500 MG PO BID Discontinued Reason: Duplicate Order Fluticasone Propionate (Flonase Allergy Relief), 2 SPRAY NS DAILY PRN for CONGESTION, (Reported) Discontinued Reason: Duplicate Order Metoprolol Tartrate (Metoprolol Tartrate), 25 MG PO BID Discontinued Reason: Duplicate Order Current Medications Current Medications Reviewed Review of Systems Constitutional: see HPI, malaise, weakness EENTM: no symptoms reported Respiratory: no symptoms reported Cardiovascular: no symptoms reported Gastrointestinal: no symptoms reported Genitourinary: no symptoms reported Musculoskeletal: back pain, joint pain Skin: no symptoms reported Psychiatric/Neurological: Depressed Physical Exam Physical Exam Vital Signs Vital Signs - First Documented 04/30/20 09:15 Temp 36.6 Pulse 60 Resp 20 B/P (MAP) 167/84 (111) Pulse Ox 97 O2 Delivery Room Air Capillary Refill : Height, Weight, BMI Height: 6'1.00" Weight: 195lbs. 0oz. 88.620655ib; 21.15 BMI Method:Actual General Appearance: No Apparent Distress, WD/WN, Chronically ill Eyes: Bilateral Eye Normal Inspection, Bilateral Eye PERRL HEENT: PERRL/EOMI, Normal ENT Inspection, Pharynx Normal Neck: Full Range of Motion, Normal Inspection, Non Tender, Supple, Carotid Bruit Respiratory: Chest Non Tender, Lungs Clear, Normal Breath Sounds, No Accessory Muscle Use, No Respiratory Distress Cardiovascular: Regular Rate, Rhythm, No Edema, No Gallop, No JVD, No Murmur, Normal Peripheral Pulses Gastrointestinal: Normal Bowel Sounds, No Organomegaly, No Pulsatile Mass, Non Tender, Soft Back: Normal Inspection, No CVA Tenderness, No Vertebral Tenderness Extremity: Normal Capillary Refill, Normal Inspection, Normal Range of Motion, Non Tender, No Calf Tenderness, No Pedal Edema Neurologic/Psychiatric: Alert, Oriented x3, Abnormal Gait, Depressed Affect, Motor Weakness (right sided weakness 3/5) Skin: Normal Color, Warm/Dry Lymphatic: No Adenopathy PM&R Medical Assessment & Plan REHAB/MEDICAL ASSESSMENT AND PLAN: REHAB IMPAIRMENT GROUP: CVA ETIOLOGIC DIAGNOSIS: CVA The comorbidities that impact the patients function and/or functional outcome by: meth use, [place], smoker, severe carotid stenosis, fall risk, social deficits REHAB PLAN: The patient is being admitted to our comprehensive inpatient rehabilitation facility and can tolerate the intensity of service consisting of at least: 180 minutes of therapy a day, 5 out of 7 days a week Rehab treatment will consist of: PT OT will focus on regaining right sided strength and ambulatory skills along with increasing ADL with use of AD in order to return home The patient/family has a good understanding of our discharge process and will benefit from an interdisciplinary inpatient rehabilitation program. The patient has potential to make improvement and is in need of at least two of the following multidisciplinary therapies including but not limited to physical, occupational, speech, and prosthetics and orthotics. Additionally the patient will need services from respiratory, nutritional services, wound care, psychology, etc. (Customize this to each patient). Given the patients complex condition and risk of further medical complications, rehabilitation services cannot be safely or effectively provided at a lower level of care such as a chcf facility. BARRIERS TO DISCHARGE: [place] ESTIMATED LOS: 14 days DISPOSITION: Home RELEVANT CHANGES SINCE PREADMISSION SCREENING: I have compared the patients medical and functional status at the time of the preadmission screening and there are: no changes PROGNOSIS: Fair REHABILITATION GOALS: 1. PT OT will focus on regaining right sided strength and ambulatory skills along with increasing ADL with use of AD in order to return home All the above goals were reviewed with the patient and he/she is in agreement. By signing this document, I acknowledge that I have personally performed a full physical examination on this patient within 24 hours of admission to this inpatient rehabilitation facility and have determined the patient to be able to tolerate the above course of treatment at an intensive level for a reasonable period of time. I will be completing a detailed individualized Plan of Care for this patient by day #4 of the patients stay based upon the Preadmission Screen, the Post-Admission Evaluation, and the therapy evaluations. Admission Dx/Comorbidities: (1) CVA (cerebral vascular accident) Status: Acute ICD Codes: I63.9 - Cerebral infarction, unspecified (2) Carotid stenosis, symptomatic, with infarction ICD Codes: I63.239 - Cerebral infarction due to unspecified occlusion or stenosis of unspecified carotid artery (3) Elevated troponin Status: Acute ICD Codes: R77.8 - Other specified abnormalities of plasma proteins (4) Hypertension ICD Codes: I10 - Essential (primary) hypertension (5) CAD (coronary artery disease) ICD Codes: I25.10 - Atherosclerotic heart disease of [place] coronary artery without angina pectoris (6) COPD (chronic obstructive pulmonary disease) ICD Codes: J44.9 - Chronic obstructive pulmonary disease, unspecified (7) Illicit drug use Status: Acute ICD Codes: F19.90 - Other psychoactive substance use, unspecified, uncomplic ated (8) Very heavy cigarette smoker (40 or more per day) Status: Acute ICD Codes: F17.210 - Nicotine dependence, cigarettes, uncomplicated (9) Methamphetamine use Status: Acute ICD Codes: F15.10 - Other stimulant abuse, uncomplicated (10) Marijuana abuse ICD Codes: F12.10 - Cannabis abuse, uncomplicated Assessment/Plan Assessment and Plan Assess & Plan/Chief Complaint Assessment: CVA with right sided weakness Meth use THC use Smoker heavy use Cartoid stenosis CAD NSTEMI on acute stay HTN Plan: MRI PT OT IRF protocol Cardiology appreciated PRUDENCE BECK DO Apr 30, 2020 12:03
[2020-04-30] MEDS ORDERED: GABAPENTIN 300 MG (NEURONTIN) CAP PO PRN (12:15)
[2020-04-30] MEDS: GABAPENTIN 300 MG (NEURONTIN) CAP PO SCH ×2 (12:25→21:04)
[2020-04-30] MEDS ORDERED: FLUTICASONE/SALMETEROL 113-14 (AIRDUO RespiCLICK) IH PRN ×2 (12:30→13:15)
[2020-04-30] MEDS ORDERED: UMECLIDINIUM BROMIDE (INCRUSE ELLIPTA) 7'S IH PRN (13:00)
[2020-04-30] MEDS ORDERED: RT-ALBUTEROL INHALER HFA (VENTOLIN HFA) 18 GM IH PRN (13:00)
--- NOTE | 2020-04-30 14:04 | ST Cognitive Linguistic Eval ---
Speech Evaluation-General Medical Diagnosis CVA Onset Date: Apr 30, 2020 Therapy Diagnosis Therapy Diagnosis: Cognitive-communication Referral Referring Physician: Dr. Pereira Medical History Pertinent Medical History: Alcoholism, CAD, COPD, HTN, Neuropathy, PVD, Smoking Reviewed History: Yes Social History Current Living Status: Friend Speech PLF-Current Status Prior Level of Function Patient lives in the home with his friend where he was independent for his daily needs. Subjective Patient was cooperative with the cognitive assessment. Language Eval: Auditory Comprehends Simple Yes/No Ques: Functional Indent/Objects Multiple [place]: Functional Ident/Pics in Multiple [place]: Functional Follows 1-Step Commands: Functional Follows Complex Directions: Functional Follows General Conversations: Functional Language Eval: Verbal Language Completes Spontaneous Greeting: Functional Produces Auto, Serial Info: Functional Imitates Simple Words/Phrases: Functional Word Finding: Functional Requests Basic Needs: Functional States Basic Personal Info: Functional Expresses Complex Ideas: Functional Objective Cognitive Domain Attention: WNL Memory: Moderate Problem Solving: Functional Executive Functions: WNL Visuospatial Skills: WNL Composite Severity Rating: WNL Objective Formal/Standardized Tests [facility] Mental Status ([facility]) Results 28/30 within normal range of function Oral Motor/Speech Production Within Normal Limits Impression Patient is a 64 y/o male who was admitted to the ARU s/p CVA. Patient was given the UMS at bedside with a score of 28/30 obtained. This score is within normal range of function and does not indicate a need for further ST services. Speech Patient Assess Expression of Ideas/Wants: Expression (4) Understanding Verbal Content: Understands (4) Brief Interview-Mental Status: Yes Repetition of Three Words: Three (3) Temporal Orientation: Year: Correct (3) Temporal Orientation: Month: Accurate within 5 days(2) Temporal Orientation: Day: Correct (1) Recall : Wear to say "Sock": Yes, no cue required (2) Recall : Color: Yes, after cueing (1) Recall : Bed: Yes, no cue required (2) Memory/Recall Ability: Current season, That he or she is in a hsp/hsp unit Speech-Plan Patient/Family Goals Patient/Family Goals: Patient plans on returning to his home upon discharge. Treatment Plan Speech Therapy Treatment Plan: Discontinue ST Treatment Duration: Apr 30, 2020 Frequency: 1 time per week Estimated Hrs Per Day: .25 hour per day Rehab Potential: Good Barriers to Learning: None identified Pt/Family Agrees to Plan: Yes Safety Risks/Education Teaching Recipient: Patient Teaching Methods: Discussion Response to Teaching: Verbalize Understanding Education Topics Provided: Safety within his room and communication of wants/needs Time Speech Therapy Time In: 13:00 Speech Therapy Time Out: 13:30 Total Billed Time: 30 Billed Treatment Time 1, NATHANNDGONZALES Delaney Apr 30, 2020 14:04
[2020-04-30 16:00] VITALS: BP 165/70
[2020-04-30] MEDS: meTOprolol TARTRATE 50 MG (LOPRESSOR) TAB PO SCH (21:03)
[2020-05-01 05:53] LABS: BASOPHILS # (AUTO) 0.2 10^3/uL (0.0-0.1); BASOPHILS % (AUTO) 1 % (0-10); EOSINOPHILS # (AUTO) 1.9 10^3/uL (0.0-0.3); EOSINOPHILS % (AUTO) 14 % (0-10); HEMATOCRIT 41 % (40-54); HEMOGLOBIN 13.4 g/dL (13.3-17.7); LYMPHOCYTES # (AUTO) 2.7 10^3/uL (1.0-4.0); LYMPHOCYTES % (AUTO) 20 % (12-44); MEAN CORPUSCULAR HEMOGLOBIN 29 pg (25-34); MEAN CORPUSCULAR HGB CONC 33 g/dL (32-36); MEAN CORPUSCULAR VOLUME 88 fL (80-99); MEAN PLATELET VOLUME 11.1 fL (9.0-12.2); MONOCYTES # (AUTO) 1.2 10^3/uL (0.0-1.0); MONOCYTES % (AUTO) 9 % (0-12); NEUTROPHILS # (AUTO) 7.6 10^3/uL (1.8-7.8); NEUTROPHILS % (AUTO) 55 % (42-75); PLATELET COUNT 187 10^3/uL (130-400); WHITE BLOOD COUNT 13.6 10^3/uL (4.3-11.0)
[2020-05-01 06:02] VITALS: BP 142/72
[2020-05-01 06:05] LABS: ALBUMIN 3.4 GM/DL (3.2-4.5); CHLORIDE 107 MMOL/L (98-107); POTASSIUM 3.9 MMOL/L (3.6-5.0); SODIUM 137 MMOL/L (135-145)
[2020-05-01 06:07] LABS: CALCIUM 8.8 MG/DL (8.5-10.1)
[2020-05-01 06:08] LABS: GLUCOSE 124 MG/DL (70-105)
[2020-05-01 06:09] LABS: CARBON DIOXIDE 22 MMOL/L (21-32)
[2020-05-01 06:10] LABS: BILIRUBIN,TOTAL 0.6 MG/DL (0.1-1.0)
[2020-05-01 06:11] LABS: ALKALINE PHOSPHATASE 68 U/L (40-136); CREATININE SERUM 0.82 MG/DL (0.60-1.30); GFR ESTIMATED > 60
[2020-05-01 06:12] LABS: BUN/CREATININE RATIO 12
[2020-05-01 06:14] LABS: ALANINE AMINOTRANSFERASE 13 U/L (0-55)
--- NOTE | 2020-05-01 06:16 | Individualized Plan of Care ---
Individualized Plan of Care Rehab Nursing IPOC Order Admission Date Apr 30, 2020 at 09:37 Current Orders Orders Admission Order(Inpt,Obs,Sdc) (04/30/20 05:24) Vital Signs: Per Unit Policy ( 00 (04/30/20 05:24) Homar Yost (04/30/20 05:24) Sequential Compression Device .admit (04/30/20 05:24) Bioinformatics Engineer-Inpt Rehab Con (04/30/20 05:24) Rehab Nursing Orders-Ipoc (04/30/20 05:24) Physical Therapy Rehab Orders (04/30/20 05:24) Occupational Therapy Rehab Ord (04/30/20 05:24) Speech Therapy Rehab Orders (04/30/20 05:24) Cbc With Automated Diff (05/01/20 06:00) Comprehensive Metabolic Panel (05/01/20 06:00) Intake & Output 06,14,22 (04/30/20 05:24) Precautions (Aru) (04/30/20 05:24) Calcium Carbonate Chew Tablet (Antacid C (04/30/20 05:30) Diphenhydramine Tablet (Benadryl Tablet) (04/30/20 05:30) Docusate Sodium Capsule (Colace Capsule) (04/30/20 09:00) Docusate Sodium Capsule (Colace Capsule) (04/30/20 05:30) Bisacodyl Suppository (Dulcolax Supposit (04/30/20 05:30) Lactulose Oral Solution (Enulose Oral So (04/30/20 05:30) Na Phos/Na Biphos Enema (Fleet Enema Vinh (04/30/20 05:30) Guaifenesin/Codeine Syrup (Robitussin Ac (04/30/20 05:30) Loperamide Tablet (Imodium Tablet) (04/30/20 05:30) Melatonin Tablet (Melatonin Tablet) (04/30/20 05:30) Polyethylene Glycol Powder Pkt (Miralax (04/30/20 09:00) Ondansetron Oral Dissolve Tab (Zofran (04/30/20 05:30) Senna S Tablet (Senokot S Tablet) (04/30/20 09:00) Initiate Admission Nursing Pro .admission (04/30/20 05:24) Rehab-Intensity Of Therapy (04/30/20 05:24) Initiate Admission Nursing Pro .admission (04/30/20 05:24) Alprazolam Tablet (Xanax Tablet) (04/30/20 05:30) Admission Arrival Bed Request (04/30/20 09:37) Acetaminophen Tablet/Caplet (Tylenol T (04/30/20 10:00) Code/Resuscitation (04/30/20 10:22) Sequential Compression Device .admit (04/30/20 10:22) General/Regular (04/30/20 Lunch) Aspirin Enteric Coated Tablet (Ecotrin T (05/01/20 09:00) Atorvastatin Tablet (Lipitor) (04/30/20 21:00) Baclofen Tablet (Lioresal Tablet) (04/30/20 10:30) Clopidogrel Tablet (Plavix Tablet) (05/01/20 09:00) Enoxaparin Injection (Lovenox Injection) (04/30/20 11:00) Amlodipine Tablet (Norvasc Tablet) (05/01/20 09:00) Consult Cardiology (04/30/20 10:22) Gabapentin Capsule/Tablet (Neurontin Cap (04/30/20 13:00) Aspirin Enteric Coated Tablet (Ecotrin T (05/01/20 09:00) Atorvastatin Tablet (Lipitor Tablet) (04/30/20 21:00) Baclofen Tablet (Lioresal Tablet) (04/30/20 12:15) Clopidogrel Tablet (Plavix Tablet) (05/01/20 09:00) Gabapentin Capsule/Tablet (Neurontin Cap (04/30/20 12:15) Metoprolol Tartrate (Ir) Tab (Lopressor (04/30/20 21:00) Fluticasone/Salmeterol 113-14 (Airduo Re (04/30/20 12:30) Rt Request For Service (04/30/20 12:04) Umeclidinium [place] Inhaler (Incruse El (04/30/20 13:00) Albuterol Inhaler (Ventolin Hfa) (04/30/20 13:00) Fluticasone/Salmeterol 113-14 (Airduo Re (04/30/20 13:15) Patient Visit (04/30/20 ) Pt Eval Moderate Complexity (04/30/20 ) Functional Activities, Ea 15 (04/30/20 ) Patient Visit (04/30/20 ) Speech Sound Lang Comp (04/30/20 ) Consult Podiatry (04/30/20 18:54) Mri Brain W/O Contrast (05/01/20 08:00) Patient Visit (05/01/20 ) Exercise Therap, Ea 15 Min (05/01/20 ) Gait Training, Ea 15 Min (05/01/20 ) Telemetry (05/01/20 16:48) Telemetry Nursing Assessment ( (05/01/20 16:48) Telemetry Nursing Assessment ( (05/01/20 16:48) Rehab Nursing Orders: Ongoing Assess. of Cognitive Status, Ongoing Assess. of Function Status, Bladder Management, Bladder Scan, Bladder Training, Bowel Management, Bowel Training, Disease Management & Educaiton, DVT Prophylaxis, Fall Prevention, Fluid/Electrolyte/Nutrition Mgmt, Infection Prevention, Medication Management & Education, Management of Risks & Complications, Nutrition Management, Pain Management, Patient/Family Support, Safety Management Intensity of Therapy to be met Patient to be seen: Min.3h per day/5 of 7d PT IPOC Problem List: Activity Tolerance, Functional Strength, Safety, Balance, Gait, Transfer, Bed Mobility Treatment Plan: Continue Plan of Care Bed Mobility, Education, Functional Activity Dutch, Functional Strength, Group Therapy, Gait, Safety, Therapeutic Exercise, Transfers Treatment Duration: May 28, 2020 Frequency: At least 5 of 7 days/Wk (IRF) Estimated Hrs Per Day: 1.5 hours per day OT IPOC Problems: Decreased Activ Tolerance, Impaired I ADL's, Impaired Self-Care Skills OT Treatment, Training and Edu: Yes Plan of Care: ADL Retraining, Functional Mobility, UE Funct Exercise/Act Treatment Duration: May 14, 2020 Frequency: At least 5 of 7 days/Wk (IRF) Estimated Hrs Per Day: 1.[address] IPOC Speech Therapy Treatment Plan: Discontinue ST Treatment Duration: Apr 30, 2020 Frequency: 1 time per week Estimated Hrs Per Day: .25 hour per day Bioinformatics Engineer/Case Mgmt Bioinformatics Engineer/Case Managemen: Discharge Planning Dietitian/Hospital Superintendent Dietitian/Hospital Superintendent to monitor nutritional status and make changes and/or recommendations as needed and work with speech pathology on dietary upgrades as the occur. Physician IPOC Medical Issues being managed closely and that require the 24 hour availability of a physician: Recent CVA with meth use will require close monitoring and BP management along with fall risk prevention Medical Issues: Bowel/Bladder Function, DVT Prophylaxis, Falls Precautions, Fluid/Electrolyte/Nutrition Balance, Infection Protection, Pain Management Brief Synthesis of Preadmission Screen, Post-Admission Evaluation, and Therapy Evaluations: PT OT will focus on regaining more function on the right side with use of AD in order to return to independent living Medical Prognosis: Good Anticipated Length of Stay: 10 days PRUDENCE BECK DO May 01, 2020 06:16
--- NOTE | 2020-05-01 06:16 | PM&R Progress Note ---
Subjective HPI/CC On Admission Date Seen by Provider: May 01, 2020 Time Seen by Provider: 11:00 Subjective/Events-last exam 05/01/20: Patient doing well Constantly on his smart phone ASA doses will be clarified with Cardiology 81 or 325 MRI reviewed No BM since 04/28 so meds given Review of Systems General: Fatigue Objective Exam Vital Signs Vital Signs Date Time Temp Pulse Resp B/P (MAP) Pulse Ox O2 Delivery O2 Flow Rate FiO2 05/02/20 05:26 36.2 52 18 129/60 (83) 99 Room Air Capillary Refill : General Appearance: No Apparent Distress, WD/WN, Chronically ill HEENT: PERRL/EOMI, Normal ENT Inspection, Pharynx Normal Neck: Full Range of Motion, Normal Inspection, Non Tender, Supple, Carotid Bruit Respiratory: Chest Non Tender, Lungs Clear, Normal Breath Sounds, No Accessory Muscle Use, No Respiratory Distress Cardiovascular: Regular Rate, Rhythm, No Edema, No Gallop, No JVD, No Murmur, Normal Peripheral Pulses Gastrointestinal: Normal Bowel Sounds, No Organomegaly, No Pulsatile Mass, Non Tender, Soft Back: Normal Inspection, No CVA Tenderness, No Vertebral Tenderness Extremity: Normal Capillary Refill, Normal Inspection, Normal Range of Motion, Non Tender, No Calf Tenderness, No Pedal Edema Neurologic/Psychiatric: Alert, Oriented x3, Abnormal Gait, Depressed Affect, Motor Weakness (right sided weakness 3/5) Skin: Normal Color, Warm/Dry Lymphatic: No Adenopathy Results/Procedures Lab Patient resulted labs reviewed. FIM Transfers Therapy Code Descriptions/Definitions Functional [place] Measure: 0=Not Assessed/NA 4=Minimal Assistance 1=Total Assistance 5=Supervision or Setup 2=Maximal Assistance 6=Modified [place] 3=Moderate Assistance 7=Complete IndependenceSCALE: Activities may be completed with or without assistive devices. 6-Jrfoqbhmjl-zafhiji completes the activity by him/herself with no assistance from a helper. 5-Set-up or Clean-up Assistance-helper sets up or cleans up; patient completes activity. [place] assists only prior to or following the activity. 4-Supervision or Touching Assistance-helper provides verbal cues and/or touching/steadying and/or contact guard assistance as patient completes activity. Assistance may be provided throughout the activity or intermittently. 3-Partial/Moderate Assistance-helper does LESS THAN HALF the effort. [place] lifts, holds or supports trunk or limbs, but provides less than half the effort. 2-Substantial/Maximal Assistance-helper does MORE THAN HALF the effort. [place] lifts or holds trunk or limbs and provides more than half the effort. 4-Iqocgyfcc-llxovm does ALL the effort. Patient does none of the effort to complete the activity. Or, the assistance of 2 or more helpers is required for the patient to complete the activity. If activity was not attempted, code reason: 7-Patient Refused. 9-Not Applicable-not attempted and the patient did not perform the activity before the current illness, exacerbation or injury. 10-Not Attempted due to Environmental Limitations-(lack of equipment, weather restraints, etc.). 88-Not Attempted due to Medical Conditions or Safety Concerns. Roll Left to Right (QC): 4 Sit to Lying (QC): 3 (assist with right LE) Sit to Stand (QC): 3 (min to CGA with skilled cues for sequencing and safety; difficulty managing right LE and it tends to slide out from under him) Chair/Wsr-kr-Bbsib Xfer(QC): 3 (min assist for balance and safety) Car Transfer (QC): 3 Gait Training Does the Patient Walk?: Yes Walk 10 feet (QC): 3 Walk 50 ft with 2 Turns(QC): 3 Walk 150 ft (QC): 3 Walking 10ft/uneven surface-QC: 3 Gait Assistive Device: FWW Wheelchair Training Wheel 50 ft with 2 turns (QC): 9 Wheel 150 ft (QC): 9 Stair Training 1 Step (curb) (QC): 3 (min assist and skilled cues for sequencing. ) 4 Steps (QC): 88 12 Steps (QC): 88 Balance Picking up an Object (QC): 88 ADL-Treatment Eating (QC): 4 (per pt.) Oral Hygiene (QC): 7 (Pt. declines. Does not have dentation.) Shower/Bathe Self (QC): 3 (Mod assist for standing in shower during dynamic tasks.) Upper Body Dressing (QC): 88 (Street clothing not available. His clothes that he came in with are being washed, and daughter to bring some later.) Lower Body Dressing (QC): 3 (Mod assist for balance in stance while doffing pants over hips.) On/Off Footwear (QC): 1 (Please see note below.) Toileting Hygiene (QC): 3 Assessment/Plan Assessment and Plan Assess & Plan/Chief Complaint Assessment: CVA with right sided weakness Meth use THC use Smoker heavy use Cartoid stenosis CAD NSTEMI on acute stay HTN Plan: MRI PT OT IRF protocol Cardiology appreciated 05/01/20: Clarify preference of ASA dose with Cardiology Monitor for falls MRI reviewed C spine ct scan report given to patient (1) CVA (cerebral vascular accident) Status: Acute (2) Carotid stenosis, symptomatic, with infarction (3) Elevated troponin Status: Acute (4) Hypertension (5) CAD (coronary artery disease) (6) COPD (chronic obstructive pulmonary disease) (7) Illicit drug use Status: Acute (8) Very heavy cigarette smoker (40 or more per day) Status: Acute (9) Methamphetamine use Status: Acute (10) Marijuana abuse PRUDENCE BECK DO May 01, 2020 06:16
[2020-05-01] MEDS: CLOPIDOGREL 75 MG (PLAVIX) TABLET PO SCH ×2 (08:15→09:08)
[2020-05-01] MEDS: amLODIPine 5 MG (NORVASC) TAB PO SCH (08:16)
[2020-05-01] MEDS: meTOprolol TARTRATE 50 MG (LOPRESSOR) TAB PO SCH ×2 (08:16→20:42)
[2020-05-01] MEDS: ASPIRIN E.C. 81 MG (ECOTRIN) TAB PO SCH (08:17)
[2020-05-01] MEDS: GABAPENTIN 300 MG (NEURONTIN) CAP PO SCH ×3 (08:17→20:42)
[2020-05-01] MEDS: polyethylene glycoL POWDER 17 GM (MIRALAX) PACK PO SCH ×2 (08:23→20:46)
[2020-05-01] MEDS: DOCUSATE SODIUM 100 MG (COLACE) CAP PO SCH ×2 (08:23→20:45)
[2020-05-01] MEDS: SENNA W/DOCUSATE (SENOKOT S) TABLET PO SCH ×2 (08:23→20:46)
--- NOTE | 2020-05-01 08:27 | Diagnostic Imaging Report ---
PROCEDURE: MR imaging of the brain without contrast. TECHNIQUE: Multiplanar, multisequence MR imaging of the brain was performed without contrast. INDICATION: Right weakness COMPARISON: 01/21/2020 FINDINGS: There are some multifocal areas of diffusion restriction in the left frontal and parietal lobes compatible with acute CVA. There is prominence of ventricles and sulci. Some mild chronic microvascular ischemic disease. There is focal gliosis in the right parietal lobe compatible with prior CVA. No hydrocephalus. No midline shift. No mass, hemorrhage or extra-axial fluid collection. The sinuses and mastoid air cells are clear. IMPRESSION: Multifocal areas of diffusion restriction in the left frontal and parietal lobes compatible with embolic CVA. Atrophy and some chronic microvascular ischemic disease. Chronic encephalomalacia in the right parietal and occipital lobes compatible with prior CVA. Dictated by: Dictated on workstation # [id number]
[2020-05-01] MEDS ORDERED: ASPIRIN E.C. 325 MG (ECOTRIN) TABLET PO SCH (09:00)
--- NOTE | 2020-05-01 09:39 | Occupational Ther Daily Note ---
OT Current Status-Daily Note Subjective Pt alert, sitting in recliner. Nrsg present in room. Pt texting on phone with fingers or with speech to text. Pt agrees to therapy. Pt states that he hopes that it won't take to long for him to get his arm and leg working so he can get home. Mental Status/Objective Patient Orientation: Person, Place, Time, Situation ADL-Treatment Pt using built up handles on eating utensils to eat breakfast by self. Set up required for meal. Pt declines shower or changing clothing stating that he did that yesterday. Pt did request to use bathroom. CGA for safety to ambulate to bathroom and transfer on/off toilet. Pt only urinated, able to complete clothing manipulation with CGA though when finished with toileting pt did not call for help. Therapy Code Descriptions/Definitions Functional [place] Measure: 0=Not Assessed/NA 4=Minimal Assistance 1=Total Assistance 5=Supervision or Setup 2=Maximal Assistance 6=Modified [place] 3=Moderate Assistance 7=Complete IndependenceSCALE: Activities may be completed with or without assistive devices. 4-Oydixylgnh-iomvelj completes the activity by him/herself with no assistance from a helper. 5-Set-up or Clean-up Assistance-helper sets up or cleans up; patient completes activity. [place] assists only prior to or following the activity. 4-Supervision or Touching Assistance-helper provides verbal cues and/or touching/steadying and/or contact guard assistance as patient completes activity. Assistance may be provided throughout the activity or intermittently. 3-Partial/Moderate Assistance-helper does LESS THAN HALF the effort. [place] lifts, holds or supports trunk or limbs, but provides less than half the effort. 2-Substantial/Maximal Assistance-helper does MORE THAN HALF the effort. [place] lifts or holds trunk or limbs and provides more than half the effort. 5-Ctltmqneq-radgsp does ALL the effort. Patient does none of the effort to complete the activity. Or, the assistance of 2 or more helpers is required for the patient to complete the activity. If activity was not attempted, code reason: 7-Patient Refused. 9-Not Applicable-not attempted and the patient did not perform the activity before the current illness, exacerbation or injury. 10-Not Attempted due to Environmental Limitations-(lack of equipment, weather restraints, etc.). 88-Not Attempted due to Medical Conditions or Safety Concerns. Eating (QC): 5 Shower/Bathe Self (QC): 7 Upper Body Dressing (QC): 7 Lower Body Dressing (QC): 7 Toileting Hygiene (QC): 4 Toilet Transfer (QC): 4 Other Treatment Pt ambulated using FWW to therapy gym. Pt has tendency to push FWW ahead and kick it with R foot, more when turning toward R side. Pt then completed B UE strengthening tasks to increase strength and activity tolerance for daily functional tasks. Arm bike for 12 min at 25 lambert resistance, resistive clothespins (each hand 1x) and 2# wt (bicep and tricep 1 set 15 reps) Pt fatigued quickly with 2# wt and tolerated other strengthening well. As pt was ambulating back to room R LE gave out 2x's which required assistance to regain LOB. After session, pt sitting in recliner with call light/phone in reach. All needs met in room. OT Short Term Goals Short Term Goals Time Frame: May 07, 2020 Eatin Oral hygiene: 5 Toileting hygiene: 4 Shower/bathe self: 4 Upper body dressin Lower body dressin Putting on/taking off footwear: 3 OT Inspector Exhaust Emissions Goals Inspector Exhaust Emissions Goals Time Frame: May 14, 2020 Eating (QC): 6 Oral Hygiene (QC): 6 Toileting Hygiene (QC): 6 Shower/Bathe Self (QC): 4 Upper Body Dressing (QC): 6 Lower Body Dressing (QC): 4 On/Off Footwear (QC): 4 Additional Goals: 1-Demonstrate ADL Tasks, 2-Verbalize Understanding, 3- ImproveStrength/Dutch 1=Demonstrate adherence to instructed precautions during ADL tasks. 2=Patient will verbalize/demonstrate understanding of assistive devices/modifications for ADL. 3=Patient will improve strength/tolerance for activity to enable patient to perform ADL's. OT Education/Plan Problem List/Assessment Assessment: Decreased Activ Tolerance, Decreased Safety Aware, Decreased UE Strength, Impaired Coordination, Impaired Funct Balance, Impaired Self-Care Skills Discharge Recommendations Plan/Recommendations: Continue POC Treatment Plan/Plan of Care Patient would benefit from OT for education, treatment and training to promote independence in ADL's, mobility, safety and/or upper extremity function for ADL's. Plan of Care: ADL Retraining, Functional Mobility, UE Funct Exercise/Act Treatment Duration: May 14, 2020 Frequency: At least 5 of 7 days/Wk (IRF) Estimated Hrs Per Day: 1.5 hours per day Agreement: Yes Rehab Potential: Good Time/GCodes Start Time: 08:15 Stop Time: 09:45 Total Time Billed (hr/min): 90 Billed Treatment Time 1 visit-ADL 3 (40 min) FA 1 (20 min) EX 2 (30 min) CIPRIANO CASTRO May 01, 2020 09:39
--- NOTE | 2020-05-01 11:00 | Physical Therapy Daily Note ---
PT Daily Note-Current Subjective Patient in recline pre tx, agrees to PT, has no complaints of pain. Appearance Patient sitting EOB post tx with tray in front of him, has nurse call and phone, bed alarm turned on. Mental Status Patient Orientation: Person, Place, Situation Transfers SCALE: Activities may be completed with or without assistive devices. 5-Fmjvpirwvl-jnhiftk completes the activity by him/herself with no assistance from a helper. 5-Set-up or Clean-up Assistance-helper sets up or cleans up; patient completes activity. [place] assists only prior to or following the activity. 4-Supervision or Touching Assistance-helper provides verbal cues and/or touching/steadying and/or contact guard assistance as patient completes activity. Assistance may be provided throughout the activity or intermittently. 3-Partial/Moderate Assistance-helper does LESS THAN HALF the effort. [place] lifts, holds or supports trunk or limbs, but provides less than half the effort. 2-Substantial/Maximal Assistance-helper does MORE THAN HALF the effort. [place] lifts or holds trunk or limbs and provides more than half the effort. 7-Pyivsryqc-fgfsun does ALL the effort. Patient does none of the effort to complete the activity. Or, the assistance of 2 or more helpers is required for the patient to complete the activity. If activity was not attempted, code reason: 7-Patient Refused. 9-Not Applicable-not attempted and the patient did not perform the activity before the current illness, exacerbation or injury. 10-Not Attempted due to Environmental Limitations-(lack of equipment, weather restraints, etc.). 88-Not Attempted due to Medical Conditions or Safety Concerns. Sit to Stand (QC): 4 Chair/Dra-gt-Zfqvh Xfer(QC): 4 Toilet Transfer (QC): 4 Patient needed to use the restroom before leaving room, CGA for toilet transfer, he was able to push pull pants up and down on his own. Gait Training Distance: 200'x2 Walk 10 feet (QC): 4 Walk 50 ft with 2 Turns(QC): 4 Walk 150 ft (QC): 4 Gait Assistive Device: FWW slow ambulation, slightly ataxic steps, worse on the right side, heel doesn't completely clear the floor Exercises Seated Therapy Exercises: Ankle pumps, Hip flexion, Hip abd/add (with ball and GTB) Seated Reps: 20 LAQ alternating for 5 min with 2# ankle weights NuStep Minutes: 15 NuStep Workload: 4 Treatments toileting, transfers, ambulation, functional strengthening Assessment Current Status: Fair Progress improving endurance, slightly less ataxic PT Short Term Goals Short Term Goals Time Frame: May 08, 2020 Sit to lyin Lying to sitting on side of be: 4 Sit to stand: 4 Walk 150 feet: 4 PT Alf Goals Licensed Midwife Goals PT Alf Goals Time Frame: May 28, 2020 Roll Left & Right (QC): 6 Sit to Lying (QC): 6 Lying-Sitting on Side/Bed(QC): 6 Sit to Stand (QC): 6 Chair/Gyi-pu-Vkoqm Xfer(QC): 6 Toilet Transfer (QC): 6 Car Transfer (QC): 6 Does the Patient Walk: Yes Walk 10 feet (QC): 6 Walk 50ft with 2 Turns (QC): 6 Walk 150 ft (QC): 6 Walking 10ft on Uneven Surface: 6 1 Step (curb) (QC): 6 4 Steps (QC): 6 12 Steps (QC): 9 Picking up an Object (QC): 4 Does the Pt use WC or Scooter?: No Wheel 50 feet with 2 turns (QC: 9 Wheel 150 feet: 9 PT Plan Problem List Problem List: Activity Tolerance, Functional Strength, Safety, Balance, Gait, Transfer, Bed Mobility, ROM Treatment/Plan Treatment Plan: Continue Plan of Care Treatment Plan: Bed Mobility, Education, Functional Activity Dutch, Functional Strength, Group Therapy, Gait, Safety, Therapeutic Exercise, Transfers Treatment Duration: May 28, 2020 Frequency: At least 5 of 7 days/Wk (IRF) Estimated Hrs Per Day: 1.5 hours per day Patient and/or Family Agrees t: Yes Safety Risks/Education Patient Education: Gait Training, Transfer Techniques, Correct Positioning, Safety Issues Teaching Recipient: Patient Teaching Methods: Demonstration, Discussion Response to Teaching: Reinforcement Needed Time/GCodes Time In: 1000 Time Out: 1100 Total Billed Treatment Time: 60 Total Billed Treatment 1 visit EX 30' GT 30' IAN PETTY PT May 01, 2020 10:59
[2020-05-01] MEDS: ENOXAPARIN 40 MG/0.4 ML (LOVENOX) SYR SQ SCH (11:10)
--- NOTE | 2020-05-01 13:45 | Physical Therapy Daily Note ---
PT Daily Note-Current Subjective Patient in bed pre tx, agrees to PT, has no complaints of pain. Appearance Patient in bed post tx with nurse call, phone, tray, all needs met, bed alarm on. Mental Status Patient Orientation: Person, Place, Situation Transfers SCALE: Activities may be completed with or without assistive devices. 6-Qaiexjcvel-fowzrjc completes the activity by him/herself with no assistance from a helper. 5-Set-up or Clean-up Assistance-helper sets up or cleans up; patient completes activity. [place] assists only prior to or following the activity. 4-Supervision or Touching Assistance-helper provides verbal cues and/or touching/steadying and/or contact guard assistance as patient completes activity. Assistance may be provided throughout the activity or intermittently. 3-Partial/Moderate Assistance-helper does LESS THAN HALF the effort. [place] lifts, holds or supports trunk or limbs, but provides less than half the effort. 2-Substantial/Maximal Assistance-helper does MORE THAN HALF the effort. [place] lifts or holds trunk or limbs and provides more than half the effort. 2-Ehuhidopd-jxxsmf does ALL the effort. Patient does none of the effort to complete the activity. Or, the assistance of 2 or more helpers is required for the patient to complete the activity. If activity was not attempted, code reason: 7-Patient Refused. 9-Not Applicable-not attempted and the patient did not perform the activity before the current illness, exacerbation or injury. 10-Not Attempted due to Environmental Limitations-(lack of equipment, weather restraints, etc.). 88-Not Attempted due to Medical Conditions or Safety Concerns. Roll Left & Right (QC): 6 Sit to Lying (QC): 6 Lying to Sitting/Side of Bed(Q: 6 Sit to Stand (QC): 4 Chair/Rpw-sv-Whtjr Xfer(QC): 4 Gait Training Distance: 200', 150' Walk 10 feet (QC): 4 Walk 50 ft with 2 Turns(QC): 4 Walk 150 ft (QC): 4 Gait Persons Needed: 1 Gait Assistive Device: FWW Patient had a little right knee buckling but not completely, has to stop and readjust and then continue Exercises NuStep Minutes: 15 NuStep Workload: 4 Treatments bed mobility and transfers, ambulation, functional strengthening Assessment Current Status: Fair Progress Patient needs cues to stay on task, he is much more interested in his phone than therapy. PT Short Term Goals Short Term Goals Time Frame: May 08, 2020 Sit to lyin Lying to sitting on side of be: 4 Sit to stand: 4 Walk 150 feet: 4 PT Senior Living Goals [employer]ist Goals PT Senior Living Goals Time Frame: May 28, 2020 Roll Left & Right (QC): 6 Sit to Lying (QC): 6 Lying-Sitting on Side/Bed(QC): 6 Sit to Stand (QC): 6 Chair/Wjk-yu-Bxsvo Xfer(QC): 6 Toilet Transfer (QC): 6 Car Transfer (QC): 6 Does the Patient Walk: Yes Walk 10 feet (QC): 6 Walk 50ft with 2 Turns (QC): 6 Walk 150 ft (QC): 6 Walking 10ft on Uneven Surface: 6 1 Step (curb) (QC): 6 4 Steps (QC): 6 12 Steps (QC): 9 Picking up an Object (QC): 4 Does the Pt use WC or Scooter?: No Wheel 50 feet with 2 turns (QC: 9 Wheel 150 feet: 9 PT Plan Problem List Problem List: Activity Tolerance, Functional Strength, Safety, Balance, Gait, Transfer, Bed Mobility, ROM Treatment/Plan Treatment Plan: Continue Plan of Care Treatment Plan: Bed Mobility, Education, Functional Activity Dutch, Functional Strength, Group Therapy, Gait, Safety, Therapeutic Exercise, Transfers Treatment Duration: May 28, 2020 Frequency: At least 5 of 7 days/Wk (IRF) Estimated Hrs Per Day: 1.5 hours per day Patient and/or Family Agrees t: Yes Safety Risks/Education Patient Education: Gait Training, Transfer Techniques, Correct Positioning, Safety Issues Teaching Recipient: Patient Teaching Methods: Demonstration, Discussion Response to Teaching: Reinforcement Needed Time/GCodes Time In: 1315 Time Out: 1345 Total Billed Treatment Time: 30 Total Billed Treatment 1 visit EX 15' GT 15' IAN PETTY PT May 01, 2020 13:45
[2020-05-01] MEDS: guaiFENesin/CODEINE (ROBITUSSIN AC) 10ML UDC PO PRN (17:22)
[2020-05-01 17:26] VITALS: BP 109/70
--- NOTE | 2020-05-01 17:36 | Consultation-Cardiology ---
HPI-Cardiology Cardiology Consultation Date of Consultation 05/01/20 Date of Admission Time Seen by Provider: 17:31 Indication: CVA HPI 64 years old gentleman had sudden onset right-sided weakness, admitted to [facility] with acute stroke then transferred to acute rehabilitation. Patient has history of non-ST [place], hypertension, follows with Dr. Davis. Did not have any cardiac arrhythmia. No chest pain or shortness of breath. Home Medications & Allergies Allergies: Coded Allergies: No Known Drug Allergies (Unverified , 03/13/18) YBK-Loyubn-Bzwwti Hx Patient Social History Marital Status: single Employed/Student: unemployed Drug of Choice: DAILY MARIJUANA USE, HX METH USE, DENIES IV USE Smoking Status: Current Everyday Smoker Type Used: Cigarettes 2nd Hand Smoke Exposure: Yes Recent Hopitalizations: No Have you traveled recently?: No Substance type: Amphetamines, Marijuana Immunizations Up To Date Tetanus Booster (TDap): Less than 5yrs Date of Pneumonia Vaccine: June 20, 2013 Date of Influenza Vaccine: Jan 21, 2020 Family Medical History Family History: Cancer 19 FATHER (SKIN) 19 MOTHER Cancer of colon 19 MOTHER Kidney disease 19 FATHER (PASSED KIDNEY FAILURE) Review of Systems-General Review of Systems Constitutional: see HPI, malaise, weakness EENTM: no symptoms reported Respiratory: no symptoms reported Cardiovascular: no symptoms reported Gastrointestinal: no symptoms reported Genitourinary: no symptoms reported Musculoskeletal: back pain, joint pain Skin: no symptoms reported Psychiatric/Neurological: Depressed Physical Exam Physical Exam Vital Signs Vital Signs - First Documented 04/30/20 09:15 Temp 36.6 Pulse 60 Resp 20 B/P (MAP) 167/84 (111) Pulse Ox 97 O2 Delivery Room Air Capillary Refill : Height, Weight, BMI Height: 6'1.00" Weight: 195lbs. 0oz. [id number]; 21.15 BMI Method:Actual General Appearance: No Apparent Distress, WD/WN, Chronically ill Eyes: Bilateral Eye Normal Inspection, Bilateral Eye PERRL HEENT: PERRL/EOMI, Normal ENT Inspection, Pharynx Normal Neck: Full Range of Motion, Normal Inspection, Non Tender, Supple, Carotid Bruit Respiratory: Chest Non Tender, Lungs Clear, Normal Breath Sounds, No Accessory Muscle Use, No Respiratory Distress Cardiovascular: Regular Rate, Rhythm, No Edema, No Gallop, No JVD, No Murmur, Normal Peripheral Pulses Gastrointestinal: Normal Bowel Sounds, No Organomegaly, No Pulsatile Mass, Non Tender, Soft Back: Normal Inspection, No CVA Tenderness, No Vertebral Tenderness Extremity: Normal Capillary Refill, Normal Inspection, Normal Range of Motion, Non Tender, No Calf Tenderness, No Pedal Edema Neurologic/Psychiatric: Alert, Oriented x3, Abnormal Gait, Depressed Affect, Motor Weakness (right sided weakness 3/5) Skin: Normal Color, Warm/Dry Lymphatic: No Adenopathy A/P-Cardiology Admission Diagnosis CVA Coronary artery disease Hypertension Hyperlipidemia Assessment/Plan Recurrent CVA, had a stroke in December 2019 resulted in right-sided weakness, had left-sided weakness on this admission. He had history of carotid stenting at [facility] in January 2020 after the first stroke, he is known to have complete occlusion of the left common and internal carotid arteries, stent of the right carotid artery. We'll place on telemetry and monitor at this time Coronary artery disease, history of cardiac catheterization in 2013 showing patent stents in the proximal LAD, known to have Promus element 2.75 by 16mm placed in July 2012, the proximal stent is Premier 3 x 16 placed in June 2013, had 50-60 percent mid LAD stenosis, has been asymptomatic Mild elevation in troponin noted on admission without any chest pain or sign of acute coronary syndrome, close monitoring, followed by Dr. Davis, possible stress test as an outpatient Sinus bradycardia, chronic asymptomatic. Continue to monitor Hypertension, monitor blood pressure Hyperlipidemia, monitor lipids Tobaccoism, educated on smoking cessation H/O marijuana and heavy EtOH use Methamphetamine abuse; (+) this admission H/O hepatitis C followed at the [facility] COPD Chronically abnormal EKG that shows LVH with repolarization abnormalities DEMETRIO ALVAREZ MD May 01, 2020 17:36
[2020-05-01] MEDS: LACTULOSE SYRUP 10GM/15ML (ENULOSE) 30ML UDC PO PRN (18:28)
[2020-05-01 20:40] VITALS: BP 110/69
[2020-05-02 05:26] VITALS: BP 129/60
[2020-05-02] MEDS: GABAPENTIN 300 MG (NEURONTIN) CAP PO SCH ×3 (07:41→21:47)
[2020-05-02] MEDS: DOCUSATE SODIUM 100 MG (COLACE) CAP PO SCH ×2 (07:41→21:47)
[2020-05-02] MEDS: amLODIPine 5 MG (NORVASC) TAB PO SCH (07:42)
[2020-05-02] MEDS: meTOprolol TARTRATE 50 MG (LOPRESSOR) TAB PO SCH ×2 (07:42→21:48)
[2020-05-02] MEDS: ASPIRIN E.C. 81 MG (ECOTRIN) TAB PO SCH (07:42)
[2020-05-02] MEDS: polyethylene glycoL POWDER 17 GM (MIRALAX) PACK PO SCH ×2 (07:43→21:47)
[2020-05-02] MEDS: CLOPIDOGREL 75 MG (PLAVIX) TABLET PO SCH ×2 (07:43)
[2020-05-02] MEDS: SENNA W/DOCUSATE (SENOKOT S) TABLET PO SCH ×2 (07:43→21:47)
[2020-05-02] MEDS: ENOXAPARIN 40 MG/0.4 ML (LOVENOX) SYR SQ SCH (10:35)
--- NOTE | 2020-05-02 10:40 | Cardiology Progress Note ---
Subjective Date Seen by Provider: May 02, 2020 Time Seen by Provider: 10:39 Subjective/Events-last exam Patient was seen at bedside, no new complaint. No chest pain Review of Systems General: No Chills, No Night Sweats, No Fatigue, No Malaise, No Appetite, No Other HEENT: No Head Aches, No Visual Changes, No Eye Pain, No Ear Pain, No Dysphasia, No Sinus Congestion, No Post Nasal Drip, No Sore Throat, No Other Pulmonary: No Dyspnea, No Cough, No Pleuritic Chest Pain, No Other Cardiovascular: No: Chest Pain, Palpitations, Orthopnea, Paroxysmal Noc. Dyspnea, Edema, Lt Headedness, Other Objective-Cardiology Exam Last Set of Vital Signs Vital Signs 05/02/20 05/02/20 05/02/20 05:26 07:00 09:41 Temp 36.2 Pulse 54 Resp 18 B/P (MAP) 129/60 (83) Pulse Ox 94 O2 Delivery Room Air Capillary Refill : I&O Intake and Output 05/02/20 00:00 Intake Total 1200 ml Balance 1200 ml Intake Oral 1200 ml # Voids 8 General: Alert, Oriented X3, Cooperative HEENT: Atraumatic, PERRLA Neck: Supple, No JVD, No Thyromegaly Lungs: Clear to Auscultation, Normal Air Movement Heart: Regular Rate, Normal S1, Normal S2, No Murmurs Abdomen: Normal Bowel Sounds, Soft, No Tenderness, No Hepatosplenomegaly, No Masses Extremities: No Clubbing, No Cyanosis, No Edema, Normal Pulses, No Tenderness/Swelling Skin: No Rashes, No Breakdown, No Significant Lesion Neuro: Normal Speech, Sensation Intact Psych/Mental Status: Mental Status NL, Mood NL A/P-Cardiology Admission Diagnosis CVA Coronary artery disease Hypertension Hyperlipidemia Assessment/Plan Recurrent CVA, had a stroke in December 2019 resulted in right-sided weakness, had left-sided weakness on this admission. He had history of carotid stenting at [facility] in January 2020 after the first stroke, he is known to have complete occlusion of the left common and internal carotid arteries, stent of the right carotid artery. Monitor on telemetry for any cardiac arrhythmia Coronary artery disease, history of cardiac catheterization in 2013 showing patent stents in the proximal LAD, known to have Promus element 2.75 by 16mm placed in July 2012, the proximal stent is Premier 3 x 16 placed in June 2013, had 50-60 percent mid LAD stenosis, has been asymptomatic Mild elevation in troponin noted on admission without any chest pain or sign of acute coronary syndrome, close monitoring, followed by Dr. Daivs, possible stress test as an outpatient Sinus bradycardia, chronic asymptomatic. Continue to monitor Hypertension, monitor blood pressure Hyperlipidemia, monitor lipids Tobaccoism, educated on smoking cessation H/O marijuana and heavy EtOH use Methamphetamine abuse; (+) this admission H/O hepatitis C followed at the [facility] COPD Chronically abnormal EKG that shows LVH with repolarization abnormalities DEMETRIO ALVAREZ MD May 02, 2020 10:40
--- NOTE | 2020-05-02 11:21 | Physical Therapy Daily Note ---
PT Daily Note-Current Subjective Pt laying Supine in bed upon arrival. Pt agrees to PT bu asks to use BR. Pain Location: No Pain Reported Mental Status Patient Orientation: Person, Place, Situation Attachments: Other-See Comments (Telemetry) Transfers SCALE: Activities may be completed with or without assistive devices. 3-Hccohkrpqf-xrpplwp completes the activity by him/herself with no assistance from a helper. 5-Set-up or Clean-up Assistance-helper sets up or cleans up; patient completes activity. [place] assists only prior to or following the activity. 4-Supervision or Touching Assistance-helper provides verbal cues and/or touching/steadying and/or contact guard assistance as patient completes activity. Assistance may be provided throughout the activity or intermittently. 3-Partial/Moderate Assistance-helper does LESS THAN HALF the effort. [place] lifts, holds or supports trunk or limbs, but provides less than half the effort. 2-Substantial/Maximal Assistance-helper does MORE THAN HALF the effort. [place] lifts or holds trunk or limbs and provides more than half the effort. 9-Fqbathjgs-dlaopu does ALL the effort. Patient does none of the effort to complete the activity. Or, the assistance of 2 or more helpers is required for the patient to complete the activity. If activity was not attempted, code reason: 7-Patient Refused. 9-Not Applicable-not attempted and the patient did not perform the activity before the current illness, exacerbation or injury. 10-Not Attempted due to Environmental Limitations-(lack of equipment, weather restraints, etc.). 88-Not Attempted due to Medical Conditions or Safety Concerns. Sit to Lying (QC): 4 Sit to Stand (QC): 4 Toilet Transfer (QC): 4 Weight Bearing Full Weight Bearing Full Weight Bearing Gait Training Does the Patient Walk?: Yes Distance: 150' Walk 10 feet (QC): 4 Walk 50 ft with 2 Turns(QC): 4 Walk 150 ft (QC): 4 Gait Persons Needed: 1 Gait Assistive Device: FWW Pt is impulsive and sometimes runs into things as he doesn't pay attention to where he is going. Treatments TF to standing and amb. to BR. Pt asks for privacy and PT returns after pt finished. Pt amb. in hallway and uses Nustep for 10m at WL 5. Pt amb back to room to rest in bed at end of tx. All needs met, call light in hand. Assessment Current Status: Fair Progress Pt is easily distracted and impulsive. VC needed for safety. PT Short Term Goals Short Term Goals Time Frame: May 08, 2020 Sit to lyin Lying to sitting on side of be: 4 Sit to stand: 4 Walk 150 feet: 4 PT Assisted Goals Car Packer Goals PT Assisted Goals Time Frame: May 28, 2020 Roll Left & Right (QC): 6 Sit to Lying (QC): 6 Lying-Sitting on Side/Bed(QC): 6 Sit to Stand (QC): 6 Chair/Gxr-zg-Osdvi Xfer(QC): 6 Toilet Transfer (QC): 6 Car Transfer (QC): 6 Does the Patient Walk: Yes Walk 10 feet (QC): 6 Walk 50ft with 2 Turns (QC): 6 Walk 150 ft (QC): 6 Walking 10ft on Uneven Surface: 6 1 Step (curb) (QC): 6 4 Steps (QC): 6 12 Steps (QC): 9 Picking up an Object (QC): 4 Does the Pt use WC or Scooter?: No Wheel 50 feet with 2 turns (QC: 9 Wheel 150 feet: 9 PT Plan Problem List Problem List: Activity Tolerance, Safety, Gait Treatment/Plan Treatment Plan: Continue Plan of Care Treatment Plan: Bed Mobility, Education, Functional Activity Dutch, Functional Strength, Group Therapy, Gait, Safety, Therapeutic Exercise, Transfers Treatment Duration: May 28, 2020 Frequency: At least 5 of 7 days/Wk (IRF) Estimated Hrs Per Day: 1.5 hours per day Patient and/or Family Agrees t: Yes Safety Risks/Education Patient Education: Gait Training, Correct Positioning, Safety Issues Teaching Recipient: Patient Teaching Methods: Discussion Response to Teaching: Reinforcement Needed Time/GCodes Time In: 1000 Time Out: 1055 Total Billed Treatment Time: 35 Total Billed Treatment Time: 0437-3899 & 0311-0864 1, FA (20m) & GT (15m) ASHANTI ROY DIRECTOR PHARMACY SERVICES May 02, 2020 11:21
--- NOTE | 2020-05-02 12:22 | PM&R Progress Note ---
Subjective HPI/CC On Admission Date Seen by Provider: May 02, 2020 Time Seen by Provider: 12:30 Subjective/Events-last exam 05/02/20: Patient doing well Tely placed by Cardiology due to embolic appearance of CVA on MRI Loop recorder may need to be placed No BM yet 05/01/20: Patient doing well Constantly on his smart phone ASA doses will be clarified with Cardiology 81 or 325 MRI reviewed No BM since 04/28 so meds given Review of Systems General: Fatigue, Malaise Neurological: Weakness, Incoordination Objective Exam Vital Signs Vital Signs Date Time Temp Pulse Resp B/P (MAP) Pulse Ox O2 Delivery O2 Flow Rate FiO2 05/02/20 19:00 54 05/02/20 18:08 36.8 18 110/68 (82) 96 Room Air Capillary Refill : General Appearance: No Apparent Distress, WD/WN, Chronically ill HEENT: PERRL/EOMI, Normal ENT Inspection, Pharynx Normal Neck: Full Range of Motion, Normal Inspection, Non Tender, Supple, Carotid Bruit Respiratory: Chest Non Tender, Lungs Clear, Normal Breath Sounds, No Accessory Muscle Use, No Respiratory Distress Cardiovascular: Regular Rate, Rhythm, No Edema, No Gallop, No JVD, No Murmur, Normal Peripheral Pulses Gastrointestinal: Normal Bowel Sounds, No Organomegaly, No Pulsatile Mass, Non Tender, Soft Back: Normal Inspection, No CVA Tenderness, No Vertebral Tenderness Extremity: Normal Capillary Refill, Normal Inspection, Normal Range of Motion, Non Tender, No Calf Tenderness, No Pedal Edema Neurologic/Psychiatric: Alert, Oriented x3, Abnormal Gait, Depressed Affect, Motor Weakness (right sided weakness 3/5) Skin: Normal Color, Warm/Dry Lymphatic: No Adenopathy Results/Procedures Lab Patient resulted labs reviewed. FIM Transfers Therapy Code Descriptions/Definitions Functional [place] Measure: 0=Not Assessed/NA 4=Minimal Assistance 1=Total Assistance 5=Supervision or Setup 2=Maximal Assistance 6=Modified [place] 3=Moderate Assistance 7=Complete IndependenceSCALE: Activities may be completed with or without assistive devices. 0-Gdrqmebsoy-mlgoqvz completes the activity by him/herself with no assistance from a helper. 5-Set-up or Clean-up Assistance-helper sets up or cleans up; patient completes activity. [place] assists only prior to or following the activity. 4-Supervision or Touching Assistance-helper provides verbal cues and/or touching/steadying and/or contact guard assistance as patient completes activity. Assistance may be provided throughout the activity or intermittently. 3-Partial/Moderate Assistance-helper does LESS THAN HALF the effort. [place] lifts, holds or supports trunk or limbs, but provides less than half the effort. 2-Substantial/Maximal Assistance-helper does MORE THAN HALF the effort. [place] lifts or holds trunk or limbs and provides more than half the effort. 7-Ihgzkjxhv-ghkgns does ALL the effort. Patient does none of the effort to complete the activity. Or, the assistance of 2 or more helpers is required for the patient to complete the activity. If activity was not attempted, code reason: 7-Patient Refused. 9-Not Applicable-not attempted and the patient did not perform the activity before the current illness, exacerbation or injury. 10-Not Attempted due to Environmental Limitations-(lack of equipment, weather restraints, etc.). 88-Not Attempted due to Medical Conditions or Safety Concerns. Roll Left to Right (QC): 6 Sit to Lying (QC): 4 Sit to Stand (QC): 4 Chair/Hou-cy-Dqnqx Xfer(QC): 4 Car Transfer (QC): 3 Gait Training Does the Patient Walk?: Yes Distance: 150' Walk 10 feet (QC): 4 Walk 50 ft with 2 Turns(QC): 4 Walk 150 ft (QC): 4 Walking 10ft/uneven surface-QC: 3 Gait Persons Needed: 1 Gait Assistive Device: FWW Wheelchair Training Wheel 50 ft with 2 turns (QC): 9 Wheel 150 ft (QC): 9 Stair Training 1 Step (curb) (QC): 3 (min assist and skilled cues for sequencing. ) 4 Steps (QC): 88 12 Steps (QC): 88 Balance Picking up an Object (QC): 88 ADL-Treatment Eating (QC): 5 Oral Hygiene (QC): 7 (Pt. declines. Does not have dentation.) Shower/Bathe Self (QC): 7 Upper Body Dressing (QC): 7 Lower Body Dressing (QC): 7 On/Off Footwear (QC): 1 (Please see note below.) Toileting Hygiene (QC): 4 Toilet Transfer (QC): 4 Assessment/Plan Assessment and Plan Assess & Plan/Chief Complaint Assessment: CVA with right sided weakness Meth use THC use Smoker heavy use Cartoid stenosis CAD NSTEMI on acute stay HTN Plan: MRI PT OT IRF protocol Cardiology appreciated 05/01/20: Clarify preference of ASA dose with Cardiology Monitor for falls MRI reviewed C spine ct scan report given to patient 05/02/20: Appreciate Dr Letty Hassan Needs loop recorder (1) CVA (cerebral vascular accident) Status: Acute (2) Carotid stenosis, symptomatic, with infarction (3) Elevated troponin Status: Acute (4) Hypertension (5) CAD (coronary artery disease) (6) COPD (chronic obstructive pulmonary disease) (7) Illicit drug use Status: Acute (8) Very heavy cigarette smoker (40 or more per day) Status: Acute (9) Methamphetamine use Status: Acute (10) Marijuana abuse PRUDENCE BECK DO May 02, 2020 12:22
[2020-05-02] MEDS: guaiFENesin/CODEINE (ROBITUSSIN AC) 10ML UDC PO PRN (13:46)
[2020-05-02] MEDS: RT-ALBUTEROL INHALER HFA (VENTOLIN HFA) 18 GM IH SCH ×2 (15:04→22:29)
[2020-05-02] MEDS: BACLOFEN 10 MG (LIORESAL) TAB PO PRN (18:04)
[2020-05-02 18:08] VITALS: BP 110/68
[2020-05-02 21:42] VITALS: BP 127/75
[2020-05-02] MEDS: LACTULOSE SYRUP 10GM/15ML (ENULOSE) 30ML UDC PO PRN (21:48)
[2020-05-02] MEDS: FLUTICASONE/SALMETEROL 113-14 (AIRDUO RespiCLICK) IH SCH (22:30)
[2020-05-03] MEDS: RT-ALBUTEROL INHALER HFA (VENTOLIN HFA) 18 GM IH SCH ×4 (01:19→18:42)
[2020-05-03 05:07] VITALS: BP 138/86
[2020-05-03] MEDS: ACETAMINOPHEN 325 MG TABLET PO PRN ×2 (06:42→18:04)
[2020-05-03 06:45] VITALS: BP 126/67
[2020-05-03] MEDS: FLUTICASONE/SALMETEROL 113-14 (AIRDUO RespiCLICK) IH SCH ×2 (07:25→18:42)
[2020-05-03] MEDS: UMECLIDINIUM BROMIDE (INCRUSE ELLIPTA) 7'S IH SCH (07:25)
[2020-05-03] MEDS: ASPIRIN E.C. 81 MG (ECOTRIN) TAB PO SCH (08:29)
[2020-05-03] MEDS: CLOPIDOGREL 75 MG (PLAVIX) TABLET PO SCH (08:30)
[2020-05-03] MEDS: GABAPENTIN 300 MG (NEURONTIN) CAP PO SCH ×3 (08:30→21:34)
[2020-05-03] MEDS: DOCUSATE SODIUM 100 MG (COLACE) CAP PO SCH ×2 (08:31→21:42)
[2020-05-03] MEDS: SENNA W/DOCUSATE (SENOKOT S) TABLET PO SCH ×2 (08:31→21:43)
[2020-05-03] MEDS: polyethylene glycoL POWDER 17 GM (MIRALAX) PACK PO SCH ×2 (08:31→21:43)
[2020-05-03 08:32] VITALS: BP 97/55
[2020-05-03 09:00] VITALS: BP 97/55
[2020-05-03] MEDS: ENOXAPARIN 40 MG/0.4 ML (LOVENOX) SYR SQ SCH (11:44)
--- NOTE | 2020-05-03 12:02 | PM&R Progress Note ---
Subjective HPI/CC On Admission Date Seen by Provider: May 03, 2020 Time Seen by Provider: 12:10 Subjective/Events-last exam 05/03/20: 8 run of V tachy or PAT with aberrancy per Dr Saenz Maintained on Tely No indication for OAC currently No BM yet and declines meds DC Norvasc 05/02/20: Patient doing well Tely placed by Cardiology due to embolic appearance of CVA on MRI Loop recorder may need to be placed No BM yet 05/01/20: Patient doing well Constantly on his smart phone ASA doses will be clarified with Cardiology 81 or 325 MRI reviewed No BM since 04/28 so meds given Review of Systems General: Fatigue Neurological: Weakness, Incoordination Objective Exam Vital Signs Vital Signs Date Time Temp Pulse Resp B/P (MAP) Pulse Ox O2 Delivery O2 Flow Rate FiO2 05/03/20 18:42 93 Room Air 05/03/20 17:04 37.0 74 18 113/67 (82) Capillary Refill : General Appearance: No Apparent Distress, WD/WN, Chronically ill HEENT: PERRL/EOMI, Normal ENT Inspection, Pharynx Normal Neck: Full Range of Motion, Normal Inspection, Non Tender, Supple, Carotid Bruit Respiratory: Chest Non Tender, Lungs Clear, Normal Breath Sounds, No Accessory Muscle Use, No Respiratory Distress Cardiovascular: Regular Rate, Rhythm, No Edema, No Gallop, No JVD, No Murmur, Normal Peripheral Pulses Gastrointestinal: Normal Bowel Sounds, No Organomegaly, No Pulsatile Mass, Non Tender, Soft Back: Normal Inspection, No CVA Tenderness, No Vertebral Tenderness Extremity: Normal Capillary Refill, Normal Inspection, Normal Range of Motion, Non Tender, No Calf Tenderness, No Pedal Edema Neurologic/Psychiatric: Alert, Oriented x3, Abnormal Gait, Depressed Affect, Motor Weakness (right sided weakness 3/5) Skin: Normal Color, Warm/Dry Lymphatic: No Adenopathy Results/Procedures Lab Patient resulted labs reviewed. FIM Transfers Therapy Code Descriptions/Definitions Functional [place] Measure: 0=Not Assessed/NA 4=Minimal Assistance 1=Total Assistance 5=Supervision or Setup 2=Maximal Assistance 6=Modified [place] 3=Moderate Assistance 7=Complete IndependenceSCALE: Activities may be completed with or without assistive devices. 1-Tukosjqnvp-igetyvb completes the activity by him/herself with no assistance from a helper. 5-Set-up or Clean-up Assistance-helper sets up or cleans up; patient completes activity. [place] assists only prior to or following the activity. 4-Supervision or Touching Assistance-helper provides verbal cues and/or touching/steadying and/or contact guard assistance as patient completes activity. Assistance may be provided throughout the activity or intermittently. 3-Partial/Moderate Assistance-helper does LESS THAN HALF the effort. [place] lifts, holds or supports trunk or limbs, but provides less than half the effort. 2-Substantial/Maximal Assistance-helper does MORE THAN HALF the effort. [place] lifts or holds trunk or limbs and provides more than half the effort. 8-Fuptnmmhs-ssbcat does ALL the effort. Patient does none of the effort to complete the activity. Or, the assistance of 2 or more helpers is required for the patient to complete the activity. If activity was not attempted, code reason: 7-Patient Refused. 9-Not Applicable-not attempted and the patient did not perform the activity before the current illness, exacerbation or injury. 10-Not Attempted due to Environmental Limitations-(lack of equipment, weather restraints, etc.). 88-Not Attempted due to Medical Conditions or Safety Concerns. Roll Left to Right (QC): 6 Sit to Lying (QC): 4 Sit to Stand (QC): 4 Chair/Fjn-ah-Waejh Xfer(QC): 4 Car Transfer (QC): 3 Gait Training Does the Patient Walk?: Yes Distance: 150' Walk 10 feet (QC): 4 Walk 50 ft with 2 Turns(QC): 4 Walk 150 ft (QC): 4 Walking 10ft/uneven surface-QC: 3 Gait Persons Needed: 1 Gait Assistive Device: FWW Wheelchair Training Wheel 50 ft with 2 turns (QC): 9 Wheel 150 ft (QC): 9 Stair Training 1 Step (curb) (QC): 3 (min assist and skilled cues for sequencing. ) 4 Steps (QC): 88 12 Steps (QC): 88 Balance Picking up an Object (QC): 88 ADL-Treatment Eating (QC): 5 Oral Hygiene (QC): 7 (Pt. declines. Does not have dentation.) Shower/Bathe Self (QC): 7 Upper Body Dressing (QC): 7 Lower Body Dressing (QC): 7 On/Off Footwear (QC): 1 (Please see note below.) Toileting Hygiene (QC): 4 Toilet Transfer (QC): 4 Assessment/Plan Assessment and Plan Assess & Plan/Chief Complaint Assessment: CVA with right sided weakness Meth use THC use Smoker heavy use Cartoid stenosis CAD NSTEMI on acute stay HTN V-tach? 05/03/20 Plan: MRI PT OT IRF protocol Cardiology appreciated 05/01/20: Clarify preference of ASA dose with Cardiology Monitor for falls MRI reviewed C spine ct scan report given to patient 05/02/20: Appreciate Dr Letty Hassan Needs loop recorder 05/03/20: Tely Monitor closely Pain management (1) CVA (cerebral vascular accident) Status: Acute (2) Carotid stenosis, symptomatic, with infarction (3) Elevated troponin Status: Acute (4) Hypertension (5) CAD (coronary artery disease) (6) COPD (chronic obstructive pulmonary disease) (7) Illicit drug use Status: Acute (8) Very heavy cigarette smoker (40 or more per day) Status: Acute (9) Methamphetamine use Status: Acute (10) Marijuana abuse PRUDENCE BECK DO May 03, 2020 12:02
--- NOTE | 2020-05-03 12:27 | Cardiology Progress Note ---
Subjective Date Seen by Provider: May 03, 2020 Time Seen by Provider: 12:25 Subjective/Events-last exam Patient was seen at bedside, sitting comfortably, asymptomatic at this time Had an episode of hypotension and dizziness this morning Had an episode of 8 beat wide complex tachycardia this morning Review of Systems General: No Chills, No Night Sweats, No Fatigue, No Malaise, No Appetite, No Other HEENT: No Head Aches, No Visual Changes, No Eye Pain, No Ear Pain, No Dysphasia, No Sinus Congestion, No Post Nasal Drip, No Sore Throat, No Other Pulmonary: No Dyspnea, No Cough, No Pleuritic Chest Pain, No Other Cardiovascular: No: Chest Pain, Palpitations, Orthopnea, Paroxysmal Noc. Dyspnea, Edema, Lt Headedness, Other Objective-Cardiology Exam Last Set of Vital Signs Vital Signs 05/03/20 05/03/20 05/03/20 05/03/20 05/03/20 05:07 06:45 08:32 09:00 12:17 Temp 36.6 Pulse 73 Resp 18 B/P (MAP) 97/55 (69) Pulse Ox 94 O2 Delivery Room Air Capillary Refill : I&O Intake and Output 05/03/20 00:00 Intake Total 1270 ml Balance 1270 ml Intake Oral 1270 ml # Voids 7 General: Alert, Oriented X3, Cooperative HEENT: Atraumatic, PERRLA Neck: Supple, No JVD, No Thyromegaly Lungs: Clear to Auscultation, Normal Air Movement Heart: Regular Rate, Normal S1, Normal S2, No Murmurs Abdomen: Normal Bowel Sounds, Soft, No Tenderness, No Hepatosplenomegaly, No Masses Extremities: No Clubbing, No Cyanosis, No Edema, Normal Pulses, No Tenderness/Swelling Skin: No Rashes, No Breakdown, No Significant Lesion Neuro: Normal Speech, Sensation Intact Psych/Mental Status: Mental Status NL, Mood NL A/P-Cardiology Admission Diagnosis CVA Coronary artery disease Hypertension Hyperlipidemia Assessment/Plan Recurrent CVA, had a stroke in December 2019 resulted in right-sided weakness, had left-sided weakness on this admission. He had history of carotid stenting at [facility] in January 2020 after the first stroke, he is known to have complete occlusion of the left common and internal carotid arteries, stent of the right carotid artery. Monitor on telemetry for any cardiac arrhythmia Coronary artery disease, history of cardiac catheterization in 2013 showing patent stents in the proximal LAD, known to have Promus element 2.75 by 16mm placed in July 2012, the proximal stent is Premier 3 x 16 placed in June 2013, had 50-60 percent mid LAD stenosis, has been asymptomatic Mild elevation in troponin noted on admission without any chest pain or sign of acute coronary syndrome, close monitoring, followed by Dr. Davis, possible stress test as an outpatient Sinus bradycardia, chronic asymptomatic, had an episode of hypotension earlier this morning, hold metoprolol and amlodipine and monitor blood pressure Transient, 8 beats wide-complex tachycardia, probably PAT with aberrant conduction, continue to monitor on telemetry. Currently metoprolol on hold due to episode of hypotension and bradycardia Hypertension, had an episode of hypotension, I discontinued metoprolol and amlodipine. Continue to monitor blood pressure Hyperlipidemia, monitor lipids Tobaccoism, educated on smoking cessation H/O marijuana and heavy EtOH use Methamphetamine abuse; (+) this admission H/O hepatitis C followed at the [facility] COPD Chronically abnormal EKG that shows LVH with repolarization abnormalities DEMETRIO ALVAREZ MD May 03, 2020 12:27
[2020-05-03] MEDS: BACLOFEN 10 MG (LIORESAL) TAB PO PRN (14:08)
[2020-05-03] MEDS ORDERED: CATHETER FLUSH 10 ML SYR IV PRN (16:15)
[2020-05-03 17:04] VITALS: BP 113/67
[2020-05-03] MEDS: CATHETER FLUSH 10 ML SYR IV SCH (23:02)
[2020-05-04] MEDS: RT-ALBUTEROL INHALER HFA (VENTOLIN HFA) 18 GM IH SCH ×4 (04:10→22:06)
[2020-05-04 05:13] VITALS: BP 102/57
[2020-05-04 05:27] LABS: BASOPHILS # (AUTO) 0.1 10^3/uL (0.0-0.1); BASOPHILS % (AUTO) 1 % (0-10); EOSINOPHILS # (AUTO) 0.7 10^3/uL (0.0-0.3); EOSINOPHILS % (AUTO) 4 % (0-10); HEMATOCRIT 38 % (40-54); HEMOGLOBIN 12.5 g/dL (13.3-17.7); LYMPHOCYTES # (AUTO) 2.4 10^3/uL (1.0-4.0); LYMPHOCYTES % (AUTO) 12 % (12-44); MEAN CORPUSCULAR HEMOGLOBIN 29 pg (25-34); MEAN CORPUSCULAR HGB CONC 33 g/dL (32-36); MEAN CORPUSCULAR VOLUME 89 fL (80-99); MEAN PLATELET VOLUME 10.8 fL (9.0-12.2); MONOCYTES # (AUTO) 1.3 10^3/uL (0.0-1.0); MONOCYTES % (AUTO) 7 % (0-12); NEUTROPHILS # (AUTO) 15.6 10^3/uL (1.8-7.8); NEUTROPHILS % (AUTO) 77 % (42-75); PLATELET COUNT 179 10^3/uL (130-400); WHITE BLOOD COUNT 20.3 10^3/uL (4.3-11.0)
[2020-05-04 05:55] LABS: ALANINE AMINOTRANSFERASE 16 U/L (0-55); ALBUMIN 3.3 GM/DL (3.2-4.5); ALKALINE PHOSPHATASE 58 U/L (40-136); BILIRUBIN,TOTAL 1.1 MG/DL (0.1-1.0); BUN/CREATININE RATIO 16; CALCIUM 8.4 MG/DL (8.5-10.1); CARBON DIOXIDE 23 MMOL/L (21-32); CHLORIDE 105 MMOL/L (98-107); CREATININE SERUM 0.83 MG/DL (0.60-1.30); GFR ESTIMATED > 60; GLUCOSE 120 MG/DL (70-105); POTASSIUM 3.8 MMOL/L (3.6-5.0); SODIUM 137 MMOL/L (135-145); TOTAL PROTEIN 5.9 GM/DL (6.4-8.2)
[2020-05-04 06:08] LABS: EOSINOPHILS % (MANUAL) 3 %; LYMPHOCYTES % (MANUAL) 18 %; MONOCYTES % (MANUAL) 6 %; NEUTROPHILS % (MANUAL) 73 %; RBC MORPH NORMAL
[2020-05-04] MEDS: CATHETER FLUSH 10 ML SYR IV SCH ×3 (06:38→20:28)
[2020-05-04] MEDS: FLUTICASONE/SALMETEROL 113-14 (AIRDUO RespiCLICK) IH SCH ×2 (06:56→22:07)
[2020-05-04] MEDS: UMECLIDINIUM BROMIDE (INCRUSE ELLIPTA) 7'S IH SCH (06:56)
[2020-05-04] MEDS: polyethylene glycoL POWDER 17 GM (MIRALAX) PACK PO SCH (07:39)
[2020-05-04] MEDS: DOCUSATE SODIUM 100 MG (COLACE) CAP PO SCH ×2 (07:41→20:28)
[2020-05-04] MEDS: CLOPIDOGREL 75 MG (PLAVIX) TABLET PO SCH (07:41)
[2020-05-04] MEDS: GABAPENTIN 300 MG (NEURONTIN) CAP PO SCH ×3 (07:41→20:27)
[2020-05-04] MEDS: ASPIRIN E.C. 81 MG (ECOTRIN) TAB PO SCH (07:42)
[2020-05-04] MEDS: SENNA W/DOCUSATE (SENOKOT S) TABLET PO SCH (07:42)
--- NOTE | 2020-05-04 09:08 | PM&R Progress Note ---
Subjective HPI/CC On Admission Date Seen by Provider: May 04, 2020 Time Seen by Provider: 09:15 Subjective/Events-last exam 05/04/20: Patient doing well Lungs are clear after IS use Elevated wbc so pursuing sepsis source Right leg weak Neck pain is chronic Baclofen ordered 05/03/20: 8 run of V tachy or PAT with aberrancy per Dr Saenz Maintained on Tely No indication for OAC currently No BM yet and declines meds DC Norvasc 05/02/20: Patient doing well Tely placed by Cardiology due to embolic appearance of CVA on MRI Loop recorder may need to be placed No BM yet 05/01/20: Patient doing well Constantly on his smart phone ASA doses will be clarified with Cardiology 81 or 325 MRI reviewed No BM since 04/28 so meds given Review of Systems General: Fatigue, Malaise Neurological: Weakness Focused Exam Lactate Level 05/04/20 11:38: Lactic Acid Level 1.25 Objective Exam Vital Signs Vital Signs Date Time Temp Pulse Resp B/P (MAP) Pulse Ox O2 Delivery O2 Flow Rate FiO2 05/05/20 01:00 64 05/04/20 22:07 97 Room Air 05/04/20 16:31 36.4 16 154/70 (98) Capillary Refill : General Appearance: No Apparent Distress, WD/WN, Chronically ill HEENT: PERRL/EOMI, Normal ENT Inspection, Pharynx Normal Neck: Full Range of Motion, Normal Inspection, Non Tender, Supple, Carotid Bru it Respiratory: Chest Non Tender, Lungs Clear, Normal Breath Sounds, No Accessory Muscle Use, No Respiratory Distress Cardiovascular: Regular Rate, Rhythm, No Edema, No Gallop, No JVD, No Murmur, Normal Peripheral Pulses Gastrointestinal: Normal Bowel Sounds, No Organomegaly, No Pulsatile Mass, Non Tender, Soft Back: Normal Inspection, No CVA Tenderness, No Vertebral Tenderness Extremity: Normal Capillary Refill, Normal Inspection, Normal Range of Motion, Non Tender, No Calf Tenderness, No Pedal Edema Neurologic/Psychiatric: Alert, Oriented x3, Abnormal Gait, Depressed Affect, Motor Weakness (right sided weakness 3/5) Skin: Normal Color, Warm/Dry Lymphatic: No Adenopathy Results/Procedures Lab Laboratory Tests 05/04/20 05:15 Patient resulted labs reviewed. FIM Transfers Therapy Code Descriptions/Definitions Functional [place] Measure: 0=Not Assessed/NA 4=Minimal Assistance 1=Total Assistance 5=Supervision or Setup 2=Maximal Assistance 6=Modified [place] 3=Moderate Assistance 7=Complete IndependenceSCALE: Activities may be completed with or without assistive devices. 4-Duigqavldw-kypjyzo completes the activity by him/herself with no assistance from a helper. 5-Set-up or Clean-up Assistance-helper sets up or cleans up; patient completes activity. [place] assists only prior to or following the activity. 4-Supervision or Touching Assistance-helper provides verbal cues and/or touching/steadying and/or contact guard assistance as patient completes activity. Assistance may be provided throughout the activity or intermittently. 3-Partial/Moderate Assistance-helper does LESS THAN HALF the effort. [place] lifts, holds or supports trunk or limbs, but provides less than half the effort. 2-Substantial/Maximal Assistance-helper does MORE THAN HALF the effort. [place] lifts or holds trunk or limbs and provides more than half the effort. 0-Fqfbcwwwi-bvhyid does ALL the effort. Patient does none of the effort to complete the activity. Or, the assistance of 2 or more helpers is required for the patient to complete the activity. If activity was not attempted, code reason: 7-Patient Refused. 9-Not Applicable-not attempted and the patient did not perform the activity before the current illness, exacerbation or injury. 10-Not Attempted due to Environmental Limitations-(lack of equipment, weather restraints, etc.). 88-Not Attempted due to Medical Conditions or Safety Concerns. Roll Left to Right (QC): 6 Sit to Lying (QC): 4 Sit to Stand (QC): 4 Chair/Ntr-wg-Nnqao Xfer(QC): 4 Car Transfer (QC): 3 Gait Training Does the Patient Walk?: Yes Distance: 150' Walk 10 feet (QC): 4 Walk 50 ft with 2 Turns(QC): 4 Walk 150 ft (QC): 4 Walking 10ft/uneven surface-QC: 3 Gait Persons Needed: 1 Gait Assistive Device: FWW Wheelchair Training Wheel 50 ft with 2 turns (QC): 9 Wheel 150 ft (QC): 9 Stair Training 1 Step (curb) (QC): 3 (min assist and skilled cues for sequencing. ) 4 Steps (QC): 88 12 Steps (QC): 88 Balance Picking up an Object (QC): 88 ADL-Treatment Eating (QC): 5 Oral Hygiene (QC): 7 (Pt. declines. Does not have dentation.) Shower/Bathe Self (QC): 7 Upper Body Dressing (QC): 7 Lower Body Dressing (QC): 7 On/Off Footwear (QC): 1 (Please see note below.) Toileting Hygiene (QC): 4 Toilet Transfer (QC): 4 Assessment/Plan Assessment and Plan Assess & Plan/Chief Complaint Assessment: CVA with right sided weakness Meth use THC use Smoker heavy use Cartoid stenosis CAD NSTEMI on acute stay HTN V-tach? 05/03/20 Elevated wbc 20k on 05/04/20 negative sepsis w/u Plan: MRI PT OT IRF protocol Cardiology appreciated 05/01/20: Clarify preference of ASA dose with Cardiology Monitor for falls MRI reviewed C spine ct scan report given to patient 05/02/20: Appreciate Dr Letty Hassan Needs loop recorder 05/03/20: Tely Monitor closely Pain management 05/04/20: Elevated wbc w/u Monitor for clinical changes (1) CVA (cerebral vascular accident) Status: Acute (2) Carotid stenosis, symptomatic, with infarction (3) Elevated troponin Status: Acute (4) Hypertension (5) CAD (coronary artery disease) (6) COPD (chronic obstructive pulmonary disease) (7) Illicit drug use Status: Acute (8) Very heavy cigarette smoker (40 or more per day) Status: Acute (9) Methamphetamine use Status: Acute (10) Marijuana abuse PRUDENCE BECK DO May 04, 2020 09:08
[2020-05-04] MEDS ORDERED: SENNA W/DOCUSATE (SENOKOT S) TABLET PO PRN (09:30)
[2020-05-04] MEDS ORDERED: polyethylene glycoL POWDER 17 GM (MIRALAX) PACK PO PRN (09:30)
[2020-05-04 09:31] LABS: BILIRUBIN,URINE NEGATIVE (NEGATIVE); CLARITY,URINE CLEAR; COLOR,URINE YELLOW; GLUCOSE, URINE (UA) TRACE (NEGATIVE); KETONES,URINE NEGATIVE (NEGATIVE); LEUKOCYTE ESTERASE ,URINE NEGATIVE (NEGATIVE); NITRITE,URINE NEGATIVE (NEGATIVE); PH,URINE 6.5 (5-9); PROTEIN,URINE NEGATIVE (NEGATIVE)
--- NOTE | 2020-05-04 09:35 | Diagnostic Imaging Report ---
INDICATION: Leukocytosis PA and lateral views of the chest are obtained with comparison made study of 04/28/2020. FINDINGS: Heart size and pulmonary vascularity are within normal limits. There is slight left infrahilar atelectasis or scarring. No consolidation is identified. Left coronary artery stent is noted. There are surgical findings in the neck. IMPRESSION: Mild left basilar atelectasis or scarring. Dictated by: Dictated on workstation # [id number]
[2020-05-04 09:50] LABS: BACTERIA,URINE TRACE /HPF; SQUAMOUS EPITHELIAL CELL,UR 0-2 /HPF; WBC,URINE 0-2 /HPF
--- NOTE | 2020-05-04 10:07 | Progress Note ---
BAKARI MYERS MED STUDENT 05/04/20 1007: Progress Note PROGRESS: Pt doing well, eating breakfast in chair. Pt denies chest pain/ palpitations but c/o neck pain and nicotine craving. Pt also agitated upon asking about BM. Pt states not understanding why we have such a fascination with my poop. Explained necessity of regular BM. PLAN: Leukocytosis- procalcitonin, CXR, UA ordered Appreciate cardiology/ Dr. Tran recs - monitoring telemetry Continue PT/OT Evaluate cause of leukocytosis and PT/OT progress for discharge timeline DEBBIE PEREIRA DO 05/05/20 0505: Supervisory-Addendum Brief Verification & Attestation Participated in pt care: history, MDM, physical Personally performed: exam, history, MDM, supervision of care Care discussed with: Medical Student Procedures: n/a Results interpretation: Verified all documentation Verification and Attestation of Medical Student E/M Service A medical student performed and documented this service in my presence. I reviewed and verified all information documented by the medical student and made modifications to such information, when appropriate. I personally performed the physical exam and medical decision making. Debbie Pereira, May 05, 2020,05:05 BAKARI MYERS MED STUDENT May 04, 2020 10:07 DEBBIE PEREIRA DO May 05, 2020 05:05
--- NOTE | 2020-05-04 10:16 | Cardiology Progress Note ---
Subjective Date Seen by Provider: May 04, 2020 Time Seen by Provider: 10:14 Subjective/Events-last exam Patient is laying down in bed, feeling better. No new complaint Review of Systems General: No Chills, No Night Sweats, No Fatigue, No Malaise, No Appetite, No Other HEENT: No Head Aches, No Visual Changes, No Eye Pain, No Ear Pain, No Dysphasia, No Sinus Congestion, No Post Nasal Drip, No Sore Throat, No Other Pulmonary: No Dyspnea, No Cough, No Pleuritic Chest Pain, No Other Cardiovascular: No: Chest Pain, Palpitations, Orthopnea, Paroxysmal Noc. Dyspnea, Edema, Lt Headedness, Other Objective-Cardiology Exam Last Set of Vital Signs Vital Signs 05/04/20 05/04/20 05:13 06:56 Temp 37.0 Pulse 71 Resp 18 B/P (MAP) 102/57 (72) Pulse Ox 93 O2 Delivery Room Air Capillary Refill : I&O Intake and Output 05/04/20 00:00 Intake Total 1970 ml Balance 1970 ml Intake Oral 1970 ml # Voids 8 General: Alert, Oriented X3, Cooperative HEENT: Atraumatic, PERRLA Neck: Supple, No JVD, No Thyromegaly Lungs: Clear to Auscultation, Normal Air Movement Heart: Regular Rate, Normal S1, Normal S2, No Murmurs Abdomen: Normal Bowel Sounds, Soft, No Tenderness, No Hepatosplenomegaly, No Masses Extremities: No Clubbing, No Cyanosis, No Edema, Normal Pulses, No Tenderness/Swelling Skin: No Rashes, No Breakdown, No Significant Lesion Neuro: Normal Speech, Sensation Intact Psych/Mental Status: Mental Status NL, Mood NL Results Lab Laboratory Tests 05/04/20 05:15 A/P-Cardiology Admission Diagnosis CVA Coronary artery disease Hypertension Hyperlipidemia Assessment/Plan Recurrent CVA, had a stroke in December 2019 resulted in right-sided weakness, had left-sided weakness on this admission. He had history of carotid stenting at [facility] in January 2020 after the first stroke, he is known to have complete occlusion of the left common and internal carotid arteries, stent of the right carotid artery. Monitor on telemetry for any cardiac arrhythmia Leukocytosis, unknown underlying cause, UA is negative, Propulsid phone and is normal, chest x-ray showed mild atelectasis. Managed by primary care team Coronary artery disease, history of cardiac catheterization in 2013 showing patent stents in the proximal LAD, known to have Promus element 2.75 by 16mm placed in July 2012, the proximal stent is Premier 3 x 16 placed in June 2013, had 50-60 percent mid LAD stenosis, has been asymptomatic Mild elevation in troponin noted on admission without any chest pain or sign of acute coronary syndrome, close monitoring, followed by Dr. Davis, possible stress test as an outpatient Sinus bradycardia, chronic asymptomatic, had an episode of hypotension earlier this morning, hold metoprolol and amlodipine and monitor blood pressure Transient, 8 beats wide-complex tachycardia, probably PAT with aberrant conduction, continue to monitor on telemetry. Currently metoprolol on hold due to episode of hypotension and bradycardia Hypertension, had an episode of hypotension, I discontinued metoprolol and amlodipine. Continue to monitor blood pressure Hyperlipidemia, monitor lipids Tobaccoism, educated on smoking cessation H/O marijuana and heavy EtOH use Methamphetamine abuse; (+) this admission H/O hepatitis C followed at the [facility] COPD Chronically abnormal EKG that shows LVH with repolarization abnormalities DEMETRIO ALVAREZ MD May 04, 2020 10:16
[2020-05-04] MEDS: NICOTINE 21 MG (NICODERM) PATCH TD SCH (10:21)
[2020-05-04] MEDS: ENOXAPARIN 40 MG/0.4 ML (LOVENOX) SYR SQ SCH (10:21)
--- NOTE | 2020-05-04 11:01 | Occupational Ther Daily Note ---
OT Current Status-Daily Note Subjective No pain reported. Mental Status/Objective Patient Orientation: Person, Place ADL-Treatment Therapy Code Descriptions/Definitions Functional [place] Measure: 0=Not Assessed/NA 4=Minimal Assistance 1=Total Assistance 5=Supervision or Setup 2=Maximal Assistance 6=Modified [place] 3=Moderate Assistance 7=Complete IndependenceSCALE: Activities may be completed with or without assistive devices. 2-Rwdxtnoqlw-cmwuxlh completes the activity by him/herself with no assistance from a helper. 5-Set-up or Clean-up Assistance-helper sets up or cleans up; patient completes activity. [place] assists only prior to or following the activity. 4-Supervision or Touching Assistance-helper provides verbal cues and/or touching/steadying and/or contact guard assistance as patient completes activity. Assistance may be provided throughout the activity or intermittently. 3-Partial/Moderate Assistance-helper does LESS THAN HALF the effort. [place] lifts, holds or supports trunk or limbs, but provides less than half the effort. 2-Substantial/Maximal Assistance-helper does MORE THAN HALF the effort. [place] lifts or holds trunk or limbs and provides more than half the effort. 7-Pntgsgpwy-xftcvn does ALL the effort. Patient does none of the effort to complete the activity. Or, the assistance of 2 or more helpers is required for the patient to complete the activity. If activity was not attempted, code reason: 7-Patient Refused. 9-Not Applicable-not attempted and the patient did not perform the activity before the current illness, exacerbation or injury. 10-Not Attempted due to Environmental Limitations-(lack of equipment, weather restraints, etc.). 88-Not Attempted due to Medical Conditions or Safety Concerns. Pt. had just returned from x-ray via wheelchair. Pt. dressed for the day. Stands with walker and ambulates with min assist for safety to therapy gym. Pt. completes bilateral coordination task with ball toss back and forth. Pt. also participated in katarina activity for bilateral UE ROM/stretch at shoulder level. Pt. tolerated this well. Completed fine motor coordination activity with nut/bolts, with emphasis to utilize pronation/supination and manipulation of pi eces. Pt. had some difficulty with handling pieces, and often would drop them after taking them off. Pt. requests coffee and packets of sugar. OT brings these to him and pt. is encouraged to open the packages of sugar himself. He is able to do this without spilling, by taking his time and shaking the sugar to bottom of packet before tearing off the top. All needs are met in therapy gym when PT comes in to work with pt. Education OT Patient Education: Correct positioning, Exercise program, Progress toward Goal/Update tx plan, Purpose of tx/functional activities, Reviewed precautions, Rehab process, Transfer techniques Teaching Recipient: Patient Teaching Methods: Demonstration, Discussion Response to Teaching: Verbalize Understanding, Return Demonstration OT Short Term Goals Short Term Goals Time Frame: May 07, 2020 Eatin Oral hygiene: 5 Toileting hygiene: 4 Shower/bathe self: 4 Upper body dressin Lower body dressin Putting on/taking off footwear: 3 OT Baler Operator Goals Baler Operator Goals Time Frame: May 14, 2020 Eating (QC): 6 Oral Hygiene (QC): 6 Toileting Hygiene (QC): 6 Shower/Bathe Self (QC): 4 Upper Body Dressing (QC): 6 Lower Body Dressing (QC): 4 On/Off Footwear (QC): 4 Additional Goals: 1-Demonstrate ADL Tasks, 2-Verbalize Understanding, 3- ImproveStrength/Dutch 1=Demonstrate adherence to instructed precautions during ADL tasks. 2=Patient will verbalize/demonstrate understanding of assistive devices/modifications for ADL. 3=Patient will improve strength/tolerance for activity to enable patient to perform ADL's. OT Education/Plan Problem List/Assessment Assessment: Decreased Activ Tolerance, Decreased UE Strength, Impaired Funct Balance, Impaired I ADL's, Impaired Self-Care Skills Discharge Recommendations Plan/Recommendations: Continue POC Therapy Discharge Recommendati: Home & Family Treatment Plan/Plan of Care Treatment,Training & Education: Yes Patient would benefit from OT for education, treatment and training to promote independence in ADL's, mobility, safety and/or upper extremity function for ADL's. Plan of Care: ADL Retraining, Functional Mobility, UE Funct Exercise/Act Treatment Duration: May 14, 2020 Frequency: At least 5 of 7 days/Wk (IRF) Estimated Hrs Per Day: 1.5 hours per day Agreement: Yes Rehab Potential: Good Time/GCodes Start Time: 09:15 Stop Time: 10:00 Total Time Billed (hr/min): 45 Billed Treatment Time 1, FA x 45minutes NACCARATO,GILBERTO OT May 04, 2020 11:01
--- NOTE | 2020-05-04 11:05 | Physical Therapy Daily Note ---
PT Daily Note-Current Subjective Pt. agrees to Rx. States he feels he is getting better and stronger. Pain Location: No Pain Reported Mental Status Patient Orientation: Normal For Age Attachments: Other-See Comments (mask) Transfers SCALE: Activities may be completed with or without assistive devices. 9-Ghyeolefzw-iumnacx completes the activity by him/herself with no assistance from a helper. 5-Set-up or Clean-up Assistance-helper sets up or cleans up; patient completes activity. [place] assists only prior to or following the activity. 4-Supervision or Touching Assistance-helper provides verbal cues and/or touching/steadying and/or contact guard assistance as patient completes activity. Assistance may be provided throughout the activity or intermittently. 3-Partial/Moderate Assistance-helper does LESS THAN HALF the effort. [place] lifts, holds or supports trunk or limbs, but provides less than half the effort. 2-Substantial/Maximal Assistance-helper does MORE THAN HALF the effort. [place] lifts or holds trunk or limbs and provides more than half the effort. 5-Tpoioekwh-pwtobq does ALL the effort. Patient does none of the effort to complete the activity. Or, the assistance of 2 or more helpers is required for the patient to complete the activity. If activity was not attempted, code reason: 7-Patient Refused. 9-Not Applicable-not attempted and the patient did not perform the activity before the current illness, exacerbation or injury. 10-Not Attempted due to Environmental Limitations-(lack of equipment, weather restraints, etc.). 88-Not Attempted due to Medical Conditions or Safety Concerns. Roll Left & Right (QC): 6 Sit to Lying (QC): 6 Lying to Sitting/Side of Bed(Q: 6 Sit to Stand (QC): 5 Chair/Vxe-er-Nbmvo Xfer(QC): 5 Car Transfer (QC): 5 Weight Bearing Full Weight Bearing Full Weight Bearing Gait Training Does the Patient Walk?: Yes Walk 10 feet (QC): 4 Walk 50 ft with 2 Turns(QC): 4 Walk 150 ft (QC): 4 Gait Persons Needed: 1 Gait Assistive Device: FWW needs instruction regarding safety and , pts. gait drifts, positions self to right inside walker, worked on steadying and alignment Exercises Supine Ex: Bridging, Ankle pumps, Quad Set, Rolling, Glut sets, Lower trunk rotation, Heel Slides, Short Arc Quads, Scooting, Straight leg raise, Hip abd/add Supine Reps: 15 Seated Therapy Exercises: Ankle pumps, Sit to stand, Long arc quads, Hip f lexion, Hip abd/add Seated Reps: 15 Standing: Hip Abduction, Hamstring curls, Heel/toe raises, Marching Standing Reps: 15 NuStep Minutes: 10 NuStep Workload: 5 Neuromuscular quadruped, crawling, tall on knees with balance challenges Assessment Current Status: Good Progress PT Short Term Goals Short Term Goals Time Frame: May 08, 2020 Sit to lyin Lying to sitting on side of be: 4 Sit to stand: 4 Walk 150 feet: 4 PT Usp Goals Usp Goals PT Provider Relations Specialist Goals Time Frame: May 28, 2020 Roll Left & Right (QC): 6 Sit to Lying (QC): 6 Lying-Sitting on Side/Bed(QC): 6 Sit to Stand (QC): 6 Chair/Qtw-rz-Boyvk Xfer(QC): 6 Toilet Transfer (QC): 6 Car Transfer (QC): 6 Does the Patient Walk: Yes Walk 10 feet (QC): 6 Walk 50ft with 2 Turns (QC): 6 Walk 150 ft (QC): 6 Walking 10ft on Uneven Surface: 6 1 Step (curb) (QC): 6 4 Steps (QC): 6 12 Steps (QC): 9 Picking up an Object (QC): 4 Does the Pt use WC or Scooter?: No Wheel 50 feet with 2 turns (QC: 9 Wheel 150 feet: 9 PT Plan Treatment/Plan Treatment Plan: Continue Plan of Care Treatment Plan: Bed Mobility, Education, Functional Activity Dutch, Functional Strength, Group Therapy, Gait, Safety, Therapeutic Exercise, Transfers Treatment Duration: May 28, 2020 Frequency: At least 5 of 7 days/Wk (IRF) Estimated Hrs Per Day: 1.5 hours per day Patient and/or Family Agrees t: Yes Safety Risks/Education Patient Education: Gait Training, Transfer Techniques, Correct Positioning, Disease Process, Safety Issues Teaching Recipient: Patient Teaching Methods: Demonstration, Discussion Response to Teaching: Verbalize Understanding, Return Demonstration, Reinforcement Needed Time/GCodes Time In: 1000 Time Out: 1100 Total Billed Treatment Time: 60 Total Billed Treatment 1,GT15m,NM15m,EX15m,FA15m AMNA [place]USTIN PTA May 04, 2020 11:05
--- NOTE | 2020-05-04 14:08 | Occupational Ther Daily Note ---
OT Current Status-Daily Note Subjective No pain reported. Mental Status/Objective Patient Orientation: Person, Place ADL-Treatment Therapy Code Descriptions/Definitions Functional [place] Measure: 0=Not Assessed/NA 4=Minimal Assistance 1=Total Assistance 5=Supervision or Setup 2=Maximal Assistance 6=Modified [place] 3=Moderate Assistance 7=Complete IndependenceSCALE: Activities may be completed with or without assistive devices. 4-Snzhfkofsk-gdjmefz completes the activity by him/herself with no assistance from a helper. 5-Set-up or Clean-up Assistance-helper sets up or cleans up; patient completes activity. [place] assists only prior to or following the activity. 4-Supervision or Touching Assistance-helper provides verbal cues and/or touching/steadying and/or contact guard assistance as patient completes activity. Assistance may be provided throughout the activity or intermittently. 3-Partial/Moderate Assistance-helper does LESS THAN HALF the effort. [place] lifts, holds or supports trunk or limbs, but provides less than half the effort. 2-Substantial/Maximal Assistance-helper does MORE THAN HALF the effort. [place] lifts or holds trunk or limbs and provides more than half the effort. 0-Jiwwewgcy-dzizqr does ALL the effort. Patient does none of the effort to complete the activity. Or, the assistance of 2 or more helpers is required for the patient to complete the activity. If activity was not attempted, code reason: 7-Patient Refused. 9-Not Applicable-not attempted and the patient did not perform the activity before the current illness, exacerbation or injury. 10-Not Attempted due to Environmental Limitations-(lack of equipment, weather restraints, etc.). 88-Not Attempted due to Medical Conditions or Safety Concerns. Toileting Hygiene (QC): 4 (CGA in stance.) Toilet Transfer (QC): 3 (Min assist) Other Treatment Pt. seen this date for strengthening. Pt. up in chair when OT entered room. Nursing in room and pt. expressing how he was upset that his roommate had not paid. OT attempted to ask questions but pt. does not tell OT full story. Pt. is distracted by his phone while OT gently prompts him. Pt. dons slippers with min assist. Pt. stands with CGA and ambulates with walker into bathroom. Pt. completes toileting task with CGA in stance. Ambulates with walker and min assist to therapy gym. Pt. completes 10 minutes on arm bike x mod resistance for increased overall strength. Pt. takes several breaks from bike to check his phone. Pt. stands from chair with min assist and ambulates back to room. Pt. up in chair and all needs met. Education OT Patient Education: Correct positioning, Exercise program, Modified ADL techniques, Progress toward Goal/Update tx plan, Purpose of tx/functional activities, Reviewed precautions, Rehab process, Transfer techniques Teaching Recipient: Patient Teaching Methods: Demonstration, Discussion Response to Teaching: Verbalize Understanding, Return Demonstration OT Short Term Goals Short Term Goals Time Frame: May 07, 2020 Eatin Oral hygiene: 5 Toileting hygiene: 4 Shower/bathe self: 4 Upper body dressin Lower body dressin Putting on/taking off footwear: 3 OT [facility] Goals Marketing Assistant Goals Time Frame: May 14, 2020 Eating (QC): 6 Oral Hygiene (QC): 6 Toileting Hygiene (QC): 6 Shower/Bathe Self (QC): 4 Upper Body Dressing (QC): 6 Lower Body Dressing (QC): 4 On/Off Footwear (QC): 4 Additional Goals: 1-Demonstrate ADL Tasks, 2-Verbalize Understanding, 3- ImproveStrength/Dutch 1=Demonstrate adherence to instructed precautions during ADL tasks. 2=Patient will verbalize/demonstrate understanding of assistive devices/modifications for ADL. 3=Patient will improve strength/tolerance for activity to enable patient to perform ADL's. OT Education/Plan Problem List/Assessment Assessment: Decreased Activ Tolerance, Dependent Transfers, Impaired I ADL's, Impaired Self-Care Skills Discharge Recommendations Plan/Recommendations: Continue POC Therapy Discharge Recommendati: Home & Family Treatment Plan/Plan of Care Treatment,Training & Education: Yes Patient would benefit from OT for education, treatment and training to promote independence in ADL's, mobility, safety and/or upper extremity function for ADL's. Plan of Care: ADL Retraining, Functional Mobility, UE Funct Exercise/Act Treatment Duration: May 14, 2020 Frequency: At least 5 of 7 days/Wk (IRF) Estimated Hrs Per Day: 1.5 hours per day Agreement: Yes Rehab Potential: Good Time/GCodes Start Time: 13:00 Stop Time: 13:45 Total Time Billed (hr/min): 45 Billed Treatment Time 1, FA x 15minutes, ADL x 15minutes, Ex x 15minutes GILBERTO SOTO OT May 04, 2020 14:08
--- NOTE | 2020-05-04 14:32 | Physical Therapy Daily Note ---
PT Daily Note-Current Subjective Pt. agrees to Rx this afternoon with some persuasion as he is very distracted with his phone and communication. Pt. using talk/text feature exposing some of his situation which appears to be causing him some anger and irritation. Pt. then states his room mate owes him money and he wants his roommate to send this money directly to his 2 girlfriends so they can take a bus to get here. Pt. shares further . The situation appears to this MANAGER OF LEARNING to be a catfishing incident. He has never met either of these ladies and they are asking for large amounts of money . Pt. does not listen to suggestions this could be the case Pain Location: No Pain Reported Mental Status Attachments: Other-See Comments (mask) Transfers SCALE: Activities may be completed with or without assistive devices. 5-Ctppddzmmt-pkexkjw completes the activity by him/herself with no assistance from a helper. 5-Set-up or Clean-up Assistance-helper sets up or cleans up; patient completes activity. [place] assists only prior to or following the activity. 4-Supervision or Touching Assistance-helper provides verbal cues and/or touching/steadying and/or contact guard assistance as patient completes activity. Assistance may be provided throughout the activity or intermittently. 3-Partial/Moderate Assistance-helper does LESS THAN HALF the effort. [place] lifts, holds or supports trunk or limbs, but provides less than half the effort. 2-Substantial/Maximal Assistance-helper does MORE THAN HALF the effort. [place] lifts or holds trunk or limbs and provides more than half the effort. 2-Mlernyfvd-ahnitf does ALL the effort. Patient does none of the effort to complete the activity. Or, the assistance of 2 or more helpers is required for the patient to complete the activity. If activity was not attempted, code reason: 7-Patient Refused. 9-Not Applicable-not attempted and the patient did not perform the activity before the current illness, exacerbation or injury. 10-Not Attempted due to Environmental Limitations-(lack of equipment, weather restraints, etc.). 88-Not Attempted due to Medical Conditions or Safety Concerns. all TRFs SBA to CGA Weight Bearing Full Weight Bearing Full Weight Bearing Gait Training Does the Patient Walk?: Yes Gait Assistive Device: FWW focus of Rx on slowing gait , concentrating on symetry in FWW and safety, better positioning Exercises NuStep Minutes: 8 NuStep Workload: 4 Assessment Current Status: Good Progress PT Short Term Goals Short Term Goals Time Frame: May 08, 2020 Sit to lyin Lying to sitting on side of be: 4 Sit to stand: 4 Walk 150 feet: 4 PT Fpc Goals Property Management Coordinator Goals PT Fpc Goals Time Frame: May 28, 2020 Roll Left & Right (QC): 6 Sit to Lying (QC): 6 Lying-Sitting on Side/Bed(QC): 6 Sit to Stand (QC): 6 Chair/Nbi-ki-Judal Xfer(QC): 6 Toilet Transfer (QC): 6 Car Transfer (QC): 6 Does the Patient Walk: Yes Walk 10 feet (QC): 6 Walk 50ft with 2 Turns (QC): 6 Walk 150 ft (QC): 6 Walking 10ft on Uneven Surface: 6 1 Step (curb) (QC): 6 4 Steps (QC): 6 12 Steps (QC): 9 Picking up an Object (QC): 4 Does the Pt use WC or Scooter?: No Wheel 50 feet with 2 turns (QC: 9 Wheel 150 feet: 9 PT Plan Treatment/Plan Treatment Plan: Continue Plan of Care Treatment Plan: Bed Mobility, Education, Functional Activity Dutch, Functional Strength, Group Therapy, Gait, Safety, Therapeutic Exercise, Transfers Treatment Duration: May 28, 2020 Frequency: At least 5 of 7 days/Wk (IRF) Estimated Hrs Per Day: 1.5 hours per day Patient and/or Family Agrees t: Yes Safety Risks/Education Patient Education: Gait Training, Transfer Techniques, Correct Positioning, Safety Issues Teaching Recipient: Patient Teaching Methods: Demonstration, Discussion Response to Teaching: Verbalize Understanding, Return Demonstration, Reinforcement Needed Time/GCodes Time In: 1400 Time Out: 1430 Total Billed Treatment Time: 30 Total Billed Treatment 1,EX10m,GT20m AMNA [place]USTIN MANAGER OF LEARNING May 04, 2020 14:32
[2020-05-04 16:31] VITALS: BP 154/70
[2020-05-04] MEDS: BACLOFEN 10 MG (LIORESAL) TAB PO PRN (22:22)
[2020-05-05] MEDS: BACLOFEN 10 MG (LIORESAL) TAB PO PRN (05:30)
[2020-05-05] MEDS: CATHETER FLUSH 10 ML SYR IV SCH ×2 (05:30→13:58)
[2020-05-05 06:10] VITALS: BP 162/80
[2020-05-05 06:12] LABS: BASOPHILS # (AUTO) 0.1 10^3/uL (0.0-0.1); BASOPHILS % (AUTO) 1 % (0-10); EOSINOPHILS # (AUTO) 1.3 10^3/uL (0.0-0.3); EOSINOPHILS % (AUTO) 10 % (0-10); HEMATOCRIT 40 % (40-54); HEMOGLOBIN 13.2 g/dL (13.3-17.7); LYMPHOCYTES # (AUTO) 2.2 10^3/uL (1.0-4.0); LYMPHOCYTES % (AUTO) 17 % (12-44); MEAN CORPUSCULAR HEMOGLOBIN 29 pg (25-34); MEAN CORPUSCULAR HGB CONC 33 g/dL (32-36); MEAN CORPUSCULAR VOLUME 88 fL (80-99); MONOCYTES % (AUTO) 8 % (0-12); NEUTROPHILS # (AUTO) 8.3 10^3/uL (1.8-7.8); NEUTROPHILS % (AUTO) 64 % (42-75); PLATELET COUNT 208 10^3/uL (130-400); WHITE BLOOD COUNT 12.9 10^3/uL (4.3-11.0)
[2020-05-05 06:33] LABS: ALANINE AMINOTRANSFERASE 20 U/L (0-55); ALBUMIN 3.7 GM/DL (3.2-4.5); ALKALINE PHOSPHATASE 61 U/L (40-136); BILIRUBIN,TOTAL 0.9 MG/DL (0.1-1.0); BUN/CREATININE RATIO 13; CALCIUM 8.9 MG/DL (8.5-10.1); CARBON DIOXIDE 24 MMOL/L (21-32); CHLORIDE 104 MMOL/L (98-107); CREATININE SERUM 0.77 MG/DL (0.60-1.30); GFR ESTIMATED > 60; GLUCOSE 112 MG/DL (70-105); POTASSIUM 3.7 MMOL/L (3.6-5.0); SODIUM 137 MMOL/L (135-145); TOTAL PROTEIN 6.8 GM/DL (6.4-8.2)
[2020-05-05 07:59] VITALS: BP 116/72
[2020-05-05] MEDS: NICOTINE 21 MG (NICODERM) PATCH TD SCH (08:00)
[2020-05-05] MEDS: CLOPIDOGREL 75 MG (PLAVIX) TABLET PO SCH (08:00)
[2020-05-05] MEDS: DOCUSATE SODIUM 100 MG (COLACE) CAP PO SCH (08:00)
[2020-05-05] MEDS: GABAPENTIN 300 MG (NEURONTIN) CAP PO SCH ×2 (08:00→13:57)
[2020-05-05] MEDS: ASPIRIN E.C. 81 MG (ECOTRIN) TAB PO SCH (08:00)
[2020-05-05] MEDS ORDERED: NITROGLYCERIN 0.4 MG SL TABS BTL 25'S SL PRN (08:15)
[2020-05-05] MEDS ORDERED: BACLOFEN 10 MG (LIORESAL) TAB PO PRN (08:45)
[2020-05-05] MEDS ORDERED: NICOTINE PATCH REMOVAL TP SCH (08:59)
[2020-05-05] MEDS: RT-ALBUTEROL INHALER HFA (VENTOLIN HFA) 18 GM IH SCH ×2 (09:31→14:58)
[2020-05-05] MEDS: FLUTICASONE/SALMETEROL 113-14 (AIRDUO RespiCLICK) IH SCH (09:31)
[2020-05-05] MEDS: UMECLIDINIUM BROMIDE (INCRUSE ELLIPTA) 7'S IH SCH (09:31)
--- NOTE | 2020-05-05 09:52 | PM&R Progress Note ---
Subjective HPI/CC On Admission Date Seen by Provider: May 05, 2020 Time Seen by Provider: 08:45 Subjective/Events-last exam 05/05/20: Patient is contemplating leaving AMA WBC improved c/o neck pain 05/04/20: Patient doing well Lungs are clear after IS use Elevated wbc so pursuing sepsis source Right leg weak Neck pain is chronic Baclofen ordered 05/03/20: 8 run of V tachy or PAT with aberrancy per Dr Saenz Maintained on Tely No indication for OAC currently No BM yet and declines meds DC Norvasc 05/02/20: Patient doing well Tely placed by Cardiology due to embolic appearance of CVA on MRI Loop recorder may need to be placed No BM yet 05/01/20: Patient doing well Constantly on his smart phone ASA doses will be clarified with Cardiology 81 or 325 MRI reviewed No BM since 04/28 so meds given Review of Systems Musculoskeletal: neck pain Neurological: Weakness, Incoordination Focused Exam Lactate Level 05/04/20 11:38: Lactic Acid Level 1.25 Objective Exam Vital Signs Vital Signs Date Time Temp Pulse Resp B/P (MAP) Pulse Ox O2 Delivery O2 Flow Rate FiO2 05/05/20 15:30 36.4 66 20 171/90 (117) 96 05/05/20 14:58 Room Air Capillary Refill : General Appearance: No Apparent Distress, WD/WN, Chronically ill HEENT: PERRL/EOMI, Normal ENT Inspection, Pharynx Normal Neck: Full Range of Motion, Normal Inspection, Non Tender, Supple, Carotid Bruit Respiratory: Chest Non Tender, Lungs Clear, Normal Breath Sounds, No Accessory Muscle Use, No Respiratory Distress Cardiovascular: Regular Rate, Rhythm, No Edema, No Gallop, No JVD, No Murmur, Normal Peripheral Pulses Gastrointestinal: Normal Bowel Sounds, No Organomegaly, No Pulsatile Mass, Non Tender, Soft Back: Normal Inspection, No CVA Tenderness, No Vertebral Tenderness Extremity: Normal Capillary Refill, Normal Inspection, Normal Range of Motion, Non Tender, No Calf Tenderness, No Pedal Edema Neurologic/Psychiatric: Alert, Oriented x3, Abnormal Gait, Depressed Affect, Motor Weakness (right sided weakness 3/5) Skin: Normal Color, Warm/Dry Lymphatic: No Adenopathy Results/Procedures Lab Laboratory Tests 05/05/20 05:33 Patient resulted labs reviewed. FIM Transfers Therapy Code Descriptions/Definitions Functional [place] Measure: 0=Not Assessed/NA 4=Minimal Assistance 1=Total Assistance 5=Supervision or Setup 2=Maximal Assistance 6=Modified [place] 3=Moderate Assistance 7=Complete IndependenceSCALE: Activities may be completed with or without assistive devices. 9-Bovyjhxvsn-vylkvcs completes the activity by him/herself with no assistance from a helper. 5-Set-up or Clean-up Assistance-helper sets up or cleans up; patient completes activity. [place] assists only prior to or following the activity. 4-Supervision or Touching Assistance-helper provides verbal cues and/or touching/steadying and/or contact guard assistance as patient completes activity. Assistance may be provided throughout the activity or intermittently. 3-Partial/Moderate Assistance-helper does LESS THAN HALF the effort. [place] lifts, holds or supports trunk or limbs, but provides less than half the effort. 2-Substantial/Maximal Assistance-helper does MORE THAN HALF the effort. [place] lifts or holds trunk or limbs and provides more than half the effort. 5-Gmnxmausc-cqllyi does ALL the effort. Patient does none of the effort to complete the activity. Or, the assistance of 2 or more helpers is required for the patient to complete the activity. If activity was not attempted, code reason: 7-Patient Refused. 9-Not Applicable-not attempted and the patient did not perform the activity before the current illness, exacerbation or injury. 10-Not Attempted due to Environmental Limitations-(lack of equipment, weather restraints, etc.). 88-Not Attempted due to Medical Conditions or Safety Concerns. Roll Left to Right (QC): 6 Sit to Lying (QC): 6 Sit to Stand (QC): 5 Chair/Rog-gn-Mmzjk Xfer(QC): 5 Car Transfer (QC): 5 Gait Training Does the Patient Walk?: Yes Distance: 150' Walk 10 feet (QC): 4 Walk 50 ft with 2 Turns(QC): 4 Walk 150 ft (QC): 4 Walking 10ft/uneven surface-QC: 3 Gait Persons Needed: 1 Gait Assistive Device: FWW Wheelchair Training Wheel 50 ft with 2 turns (QC): 9 Wheel 150 ft (QC): 9 Stair Training 1 Step (curb) (QC): 3 (min assist and skilled cues for sequencing. ) 4 Steps (QC): 88 12 Steps (QC): 88 Balance Picking up an Object (QC): 88 ADL-Treatment Eating (QC): 5 Oral Hygiene (QC): 7 (Pt. declines. Does not have dentation.) Shower/Bathe Self (QC): 7 Upper Body Dressing (QC): 7 Lower Body Dressing (QC): 7 On/Off Footwear (QC): 1 (Please see note below.) Toileting Hygiene (QC): 4 (CGA in stance.) Toilet Transfer (QC): 3 (Min assist) Assessment/Plan Assessment and Plan Assess & Plan/Chief Complaint Assessment: CVA with right sided weakness Meth use THC use Smoker heavy use Cartoid stenosis CAD NSTEMI on acute stay HTN V-tach? 05/03/20 Elevated wbc 20k on 05/04/20 negative sepsis w/u Plan: MRI PT OT IRF protocol Cardiology appreciated 05/01/20: Clarify preference of ASA dose with Cardiology Monitor for falls MRI reviewed C spine ct scan report given to patient 05/02/20: Appreciate Dr Letty Hassan Needs loop recorder 05/03/20: Tely Monitor closely Pain management 05/04/20: Elevated wbc w/u Monitor for clinical changes 05/05/20: Baclofen changes Patient may leave AMA (1) CVA (cerebral vascular accident) Status: Acute (2) Carotid stenosis, symptomatic, with infarction (3) Elevated troponin Status: Acute (4) Hypertension (5) CAD (coronary artery disease) (6) COPD (chronic obstructive pulmonary disease) (7) Illicit drug use Status: Acute (8) Very heavy cigarette smoker (40 or more per day) Status: Acute (9) Methamphetamine use Status: Acute (10) Marijuana abuse PRUDENCE BECK DO May 05, 2020 09:52
--- NOTE | 2020-05-05 11:18 | Occupational Ther Daily Note ---
OT Current Status-Daily Note Subjective No pain reported. Appearance Pt. in bed when OT enters room. Pt. on his phone and requests more time to "handle something" on his phone. Mental Status/Objective Patient Orientation: Person, Place ADL-Treatment Therapy Code Descriptions/Definitions Functional Ellis Measure: 0=Not Assessed/NA 4=Minimal Assistance 1=Total Assistance 5=Supervision or Setup 2=Maximal Assistance 6=Modified Ellis 3=Moderate Assistance 7=Complete IndependenceSCALE: Activities may be completed with or without assistive devices. 6-Thsnogbnba-gwfagjd completes the activity by him/herself with no assistance from a helper. 5-Set-up or Clean-up Assistance-helper sets up or cleans up; patient completes activity. [place] assists only prior to or following the activity. 4-Supervision or Touching Assistance-helper provides verbal cues and/or touching/steadying and/or contact guard assistance as patient completes activity. Assistance may be provided throughout the activity or intermittently. 3-Partial/Moderate Assistance-helper does LESS THAN HALF the effort. [place] lifts, holds or supports trunk or limbs, but provides less than half the effort. 2-Substantial/Maximal Assistance-helper does MORE THAN HALF the effort. [place] lifts or holds trunk or limbs and provides more than half the effort. 3-Qldexvqyo-wcyiib does ALL the effort. Patient does none of the effort to complete the activity. Or, the assistance of 2 or more helpers is required for the patient to complete the activity. If activity was not attempted, code reason: 7-Patient Refused. 9-Not Applicable-not attempted and the patient did not perform the activity before the current illness, exacerbation or injury. 10-Not Attempted due to Environmental Limitations-(lack of equipment, weather restraints, etc.). 88-Not Attempted due to Medical Conditions or Safety Concerns. Upper Body Dressing (QC): 5 (per pt.) Lower Body Dressing (QC): 5 (per pt.) On/Off Footwear: 6 Other Treatment Pt. verbalizes that he showered last night. Pt. in clean clothes and states that he had no difficulty donning them. Pt. on phone and is texting someone. He requests more time, and so OT comes back a little later. Pt. stands with SBA and ambulates with walker to therapy gym. Pt. completes 10 minutes on arm bike x mod resistance to increase overall strength and independence with daily tasks. Pt. distracted throughout session with his phone. Requires cues and encouragement to continue with treatment. Pt. participates in Jeopardy game while performing arm bike. Pt. does well with knowledge that he is interested in. After this task, he completes several fine motor coordination tasks, including using rubber bands to make specific visual shapes, and with using cards to shuffle, sort, and flip. Utilized supination/pronation motion, as well as grasp release patterns. Pt. verbalizes that he feels that his coordination is "fine" and is close to baseline. Pt. ambulated with SBA using walker back to room. All needs met at bed level. Education OT Patient Education: Correct positioning, Exercise program, Modified ADL techniques, Progress toward Goal/Update tx plan, Purpose of tx/functional activities, Transfer techniques Teaching Recipient: Patient Teaching Methods: Demonstration, Discussion Response to Teaching: Verbalize Understanding, Return Demonstration OT Short Term Goals Short Term Goals Time Frame: May 07, 2020 Eatin Oral hygiene: 5 Toileting hygiene: 4 Shower/bathe self: 4 Upper body dressin Lower body dressin Putting on/taking off footwear: 3 OT Long-Term Goals Long-Term Goals Time Frame: May 14, 2020 Eating (QC): 6 Oral Hygiene (QC): 6 Toileting Hygiene (QC): 6 Shower/Bathe Self (QC): 4 Upper Body Dressing (QC): 6 Lower Body Dressing (QC): 4 On/Off Footwear (QC): 4 Additional Goals: 1-Demonstrate ADL Tasks, 2-Verbalize Understanding, 3- ImproveStrength/Dutch 1=Demonstrate adherence to instructed precautions during ADL tasks. 2=Patient will verbalize/demonstrate understanding of assistive devic es/modifications for ADL. 3=Patient will improve strength/tolerance for activity to enable patient to perform ADL's. OT Education/Plan Problem List/Assessment Assessment: Decreased Activ Tolerance Discharge Recommendations Plan/Recommendations: Continue POC Therapy Discharge Recommendati: Home & Family, Post Acute OT Treatment Plan/Plan of Care Treatment,Training & Education: Yes Patient would benefit from OT for education, treatment and training to promote independence in ADL's, mobility, safety and/or upper extremity function for ADL's. Plan of Care: ADL Retraining, Functional Mobility, UE Funct Exercise/Act Treatment Duration: May 14, 2020 Frequency: At least 5 of 7 days/Wk (IRF) Estimated Hrs Per Day: 1.5 hours per day Agreement: Yes Rehab Potential: Good Time/GCodes Start Time: 09:45 Stop Time: 11:15 Total Time Billed (hr/min): 90 Billed Treatment Time 1, Ex x 15minutes, FA x 75minutes GILBERTO SOTO OT May 05, 2020 11:18
[2020-05-05] MEDS: ENOXAPARIN 40 MG/0.4 ML (LOVENOX) SYR SQ SCH (11:19)
--- NOTE | 2020-05-05 12:15 | Physical Therapy Daily Note ---
PT Daily Note-Current Subjective Pt sitting in recliner upon arrival. Pt agrees to PT. Nurse needs to complete EKG during tx. Pain Numeric Pain Scale: 5-Moderate Pain Location Body Site: Neck Pain Description: Ache Mental Status Patient Orientation: Person, Place, Situation Attachments: Other-See Comments (Telemetry) Transfers SCALE: Activities may be completed with or without assistive devices. 5-Fhnmudtoaz-eymjnox completes the activity by him/herself with no assistance from a helper. 5-Set-up or Clean-up Assistance-helper sets up or cleans up; patient completes activity. [place] assists only prior to or following the activity. 4-Supervision or Touching Assistance-helper provides verbal cues and/or touching/steadying and/or contact guard assistance as patient completes activity. Assistance may be provided throughout the activity or intermittently. 3-Partial/Moderate Assistance-helper does LESS THAN HALF the effort. [place] lifts, holds or supports trunk or limbs, but provides less than half the effort. 2-Substantial/Maximal Assistance-helper does MORE THAN HALF the effort. [place] lifts or holds trunk or limbs and provides more than half the effort. 2-Bnretougn-cxkyev does ALL the effort. Patient does none of the effort to complete the activity. Or, the assistance of 2 or more helpers is required for the patient to complete the activity. If activity was not attempted, code reason: 7-Patient Refused. 9-Not Applicable-not attempted and the patient did not perform the activity before the current illness, exacerbation or injury. 10-Not Attempted due to Environmental Limitations-(lack of equipment, weather restraints, etc.). 88-Not Attempted due to Medical Conditions or Safety Concerns. Lying to Sitting/Side of Bed(Q: 5 Sit to Stand (QC): 5 Toilet Transfer (QC): 5 Weight Bearing Full Weight Bearing Full Weight Bearing Gait Training Does the Patient Walk?: Yes Distance: 150' Walk 10 feet (QC): 4 Walk 50 ft with 2 Turns(QC): 4 Walk 150 ft (QC): 4 Gait Persons Needed: 1 Gait Assistive Device: FWW Exercises NuStep Minutes: 15 NuStep Workload: 4 Treatments [id number]: Pt completes EKG then TF to standing. Pt uses BR then amb. in hallway. Pt uses NuStep for 15m at WL 4. Pt amb. back to room to rest at end of tx. All needs met, call light in hand. [phone]: Pt preoccupied w/cell phone getting money on Bitcoin. CONVEYOR WEIGHER OPERATOR advises need to work with Therapy and pt is reluctant but finally agrees to after using BR. TF to standing and amb. to BR. Pt asks CONVEYOR WEIGHER OPERATOR to step out of BR for privacy. Pt continues to talk/text on phone while in BR. Pt to pull call light when finished in BR. Assessment Current Status: Poor Progress Pt is impulsive and very preoccupied with phone and getting $ from roommate which has caused much agitation for pt today. Pt has cursed and yelled on phone during and in between tx. Pt is very agitated and asking to leave. PT Short Term Goals Short Term Goals Time Frame: May 08, 2020 Sit to lyin Lying to sitting on side of be: 4 Sit to stand: 4 Walk 150 feet: 4 PT Network Controller Goals Usp Goals PT Network Controller Goals Time Frame: May 28, 2020 Roll Left & Right (QC): 6 Sit to Lying (QC): 6 Lying-Sitting on Side/Bed(QC): 6 Sit to Stand (QC): 6 Chair/Fhp-wh-Mkfqm Xfer(QC): 6 Toilet Transfer (QC): 6 Car Transfer (QC): 6 Does the Patient Walk: Yes Walk 10 feet (QC): 6 Walk 50ft with 2 Turns (QC): 6 Walk 150 ft (QC): 6 Walking 10ft on Uneven Surface: 6 1 Step (curb) (QC): 6 4 Steps (QC): 6 12 Steps (QC): 9 Picking up an Object (QC): 4 Does the Pt use WC or Scooter?: No Wheel 50 feet with 2 turns (QC: 9 Wheel 150 feet: 9 PT Plan Problem List Problem List: Safety Treatment/Plan Treatment Plan: Continue Plan of Care Treatment Plan: Bed Mobility, Education, Functional Activity Dutch, Functional Strength, Group Therapy, Gait, Safety, Therapeutic Exercise, Transfers Treatment Duration: May 28, 2020 Frequency: At least 5 of 7 days/Wk (IRF) Estimated Hrs Per Day: 1.5 hours per day Patient and/or Family Agrees t: Yes Safety Risks/Education Patient Education: Correct Positioning, Safety Issues Teaching Recipient: Patient Teaching Methods: Discussion Response to Teaching: Reinforcement Needed Time/GCodes Time In: 815 Time Out: 1430 Total Billed Treatment Time: 90 Total Billed Treatment 815-915: 1, GT (15m), FA x2 (30m) & EX (15m) [id number]: FA x2 (30m) ASHANTI ROY CONVEYOR WEIGHER OPERATOR May 05, 2020 12:15
--- NOTE | 2020-05-05 12:26 | Cardiology Progress Note ---
Subjective Date Seen by Provider: May 05, 2020 Time Seen by Provider: 08:00 Subjective/Events-last exam patient was seen and evaluated, was having some chest pain earlier today, mainly complaining of neck pain and numbness in his arms Review of Systems General: No Chills, No Night Sweats; Fatigue; No Malaise, No Appetite, No Other HEENT: No Head Aches, No Visual Changes, No Eye Pain, No Ear Pain, No Dysphasia, No Sinus Congestion, No Post Nasal Drip, No Sore Throat, No Other Pulmonary: No Dyspnea, No Cough, No Pleuritic Chest Pain, No Other Cardiovascular: Chest Pain; No: Palpitations, Orthopnea, Paroxysmal Noc. Dysp adriana, Edema, Lt Headedness, Other Focused Exam Lactate Level 05/04/20 11:38: Lactic Acid Level 1.25 Objective-Cardiology Exam Last Set of Vital Signs Vital Signs 05/05/20 05/05/20 05/05/20 06:10 07:59 09:32 Temp 36.3 Pulse 71 Resp 20 B/P (MAP) 116/72 (87) Pulse Ox 96 O2 Delivery Room Air Capillary Refill : I&O Intake and Output 05/05/20 00:00 Intake Total 1160 ml Balance 1160 ml Intake Oral 1160 ml # Voids 7 # Bowel Movements 3 General: Alert, Oriented X3, Cooperative HEENT: Atraumatic, PERRLA Neck: Supple, No JVD, No Thyromegaly Lungs: Clear to Auscultation, Normal Air Movement Heart: Regular Rate, Normal S1, Normal S2, No Murmurs Abdomen: Normal Bowel Sounds, Soft, No Tenderness, No Hepatosplenomegaly, No Masses Extremities: No Clubbing, No Cyanosis, No Edema, Normal Pulses, No Tenderness/Swelling Skin: No Rashes, No Breakdown, No Significant Lesion Neuro: Normal Speech, Sensation Intact Psych/Mental Status: Mental Status NL, Mood NL Results Lab Laboratory Tests 05/05/20 05:33 A/P-Cardiology Admission Diagnosis CVA Coronary artery disease Hypertension Hyperlipidemia Assessment/Plan Recurrent CVA, had a stroke in December 2019 resulted in right-sided weakness, had left-sided weakness on this admission. He had history of carotid stenting at [facility] in January 2020 after the first stroke, he is known to have complete occlusion of the left common and internal carotid arteries, stent of the right carotid artery. Monitor on telemetry for any cardiac arrhythmia Leukocytosis, unknown underlying etiology, workup was negative, improving. C ontinue to monitor Coronary artery disease, history of cardiac catheterization in 2013 showing michele nt stents in the proximal LAD, known to have Promus element 2.75 by 16mm placed in July 2012, the proximal stent is Premier 3 x 16 placed in June 2013, had 50-60 percent mid LAD stenosis, had an episode of chest pain this morning, EKG showing minimal ST changes, I will monitor troponin level Mild elevation in troponin noted on admission without any chest pain or sign of acute coronary syndrome, close monitoring, followed by Dr. Davis, possible stress test as an outpatient Sinus bradycardia, chronic asymptomatic, had an episode of hypotension earlier this morning, hold metoprolol and amlodipine and monitor blood pressure Transient, 8 beats wide-complex tachycardia, probably PAT with aberrant conduction, continue to monitor on telemetry. Currently metoprolol on hold due to episode of hypotension and bradycardia Hypertension, had an episode of hypotension, I discontinued metoprolol and amlodipine. Continue to monitor blood pressure Hyperlipidemia, monitor lipids Tobaccoism, educated on smoking cessation H/O marijuana and heavy EtOH use Methamphetamine abuse; (+) this admission H/O hepatitis C followed at the [facility] COPD Chronically abnormal EKG that shows LVH with repolarization abnormalities DEMETRIO ALVAREZ MD May 05, 2020 12:26
--- NOTE | 2020-05-05 12:48 | Diagnostic Imaging Report ---
HISTORY: Leukocytosis. COMPARISON: 05/04/2020. TECHNIQUE: Two views of the chest. FINDINGS: The previously described left basilar opacity appears improved, most likely atelectasis. There is minimal opacity in the peripheral right upper lobe which could represent mild focal infiltrate. There is no pleural effusion or pneumothorax. The cardiac silhouette is normal in size. There is aortic atherosclerosis. IMPRESSION: Mild opacity in the peripheral right upper lobe could represent a focal infiltrate. The left basilar opacity has improved. Dictated by: Dictated on workstation # [id number]
[2020-05-05 15:30] VITALS: BP 171/90
--- NOTE | 2020-05-05 20:55 | Discharge Summary ---
Diagnosis/Chief Complaint Date of Admission Apr 30, 2020 at 09:37 Date of Discharge May 05, 2020 at 17:08 Discharge Diagnosis CVA Meth use hx Smoker Elevated wbc Discharge Summary Discharge Physical Examination Allergies: Coded Allergies: No Known Drug Allergies (Unverified , 03/13/18) Vitals & I&Os Vital Signs Date Time Temp Pulse Resp B/P (MAP) Pulse Ox O2 Delivery O2 Flow Rate FiO2 05/05/20 15:30 36.4 66 20 171/90 (117) 96 05/05/20 14:58 Room Air General Appearance: Alert, Oriented X3, Cooperative Respiratory: Clear to Auscultation Psych/Mental Status: Mental Status NL Hospital Course Was the Problem List Reviewed?: Yes Standard hospital course after admitted from med-surg after suffering a CVA. Deficits were identified and therapy was initiated. Cardiology followed patient. Overall he was able to benefit from the intensive therapy services but he left AMA before all benefits obtained. Labs (last 24 hrs) Laboratory Tests 05/01/20 05:35: White Blood Count 13.6H, Red Blood Count 4.61, Hemoglobin 13.4, Hematocrit 41, Mean Corpuscular Volume 88, Mean Corpuscular Hemoglobin 29, Mean Corpuscular Hemoglobin Concent 33, Red Cell Distribution Width 14.5, Platelet Count 187, Mean Platelet Volume 11.1, Immature Granulocyte % (Auto) 0, Neutrophils (%) (Auto) 55, Lymphocytes (%) (Auto) 20, Monocytes (%) (Auto) 9, Eosinophils (%) (Auto) 14H, Basophils (%) (Auto) 1, Neutrophils # (Auto) 7.6, Lymphocytes # (Auto) 2.7, Monocytes # (Auto) 1.2H, Eosinophils # (Auto) 1.9H, Basophils # (Auto) 0.2H, Immature Granulocyte # (Auto) 0.0, Sodium Level 137, Potassium Level 3.9, Chloride Level 107, Carbon Dioxide Level 22, Anion Gap 8, Blood Urea Nitrogen 10, Creatinine 0.82, Estimat Glomerular Filtration Rate > 60, BUN/Creatinine Ratio 12, Glucose Level 124H, Calcium Level 8.8, Corrected Calcium 9.3, Total Bilirubin 0.6, Aspartate Amino Transf (AST/SGOT) 14, Alanine Aminotransferase (ALT/SGPT) 13, Alkaline Phosphatase 68, Total Protein 6.0L, Albumin 3.4 05/04/20 05:15: White Blood Count 20.3H, Red Blood Count 4.26L, Hemoglobin 12.5L, Hematocrit 38L , Mean Corpuscular Volume 89, Mean Corpuscular Hemoglobin 29, Mean Corpuscular Hemoglobin Concent 33, Red Cell Distribution Width 15.0H, Platelet Count 179, Mean Platelet Volume 10.8, Immature Granulocyte % (Auto) 0, Neutrophils (%) (Auto) 77H, Lymphocytes (%) (Auto) 12, Monocytes (%) (Auto) 7, Eosinophils (%) (Auto) 4, Basophils (%) (Auto) 1, Neutrophils # (Auto) 15.6H, Lymphocytes # (Auto) 2.4, Monocytes # (Auto) 1.3H, Eosinophils # (Auto) 0.7H, Basophils # (Auto) 0.1, Immature Granulocyte # (Auto) 0.1, Sodium Level 137, Potassium Level 3.8, Chloride Level 105, Carbon Dioxide Level 23, Anion Gap 9, Blood Urea Nitrogen 13, Creatinine 0.83, Estimat Glomerular Filtration Rate > 60, BUN/Creatinine Ratio 16, Glucose Level 120H, Calcium Level 8.4L, Corrected Calcium 9.0, Total Bilirubin 1.1H, Aspartate Amino Transf (AST/SGOT) 14, Alanine Aminotransferase (ALT/SGPT) 16, Alkaline Phosphatase 58, Total Protein 5.9L, Albumin 3.3, Neutrophils % (Manual) 73, Lymphocytes % (Manual) 18, Monocytes % (Manual) 6, Eosinophils % (Manual) 3, Blood Morphology Comment NORMAL, Procalcit onin 0.09 05/04/20 09:10: Urine Color YELLOW, Urine Clarity CLEAR, Urine pH 6.5, Urine Specific [place] 1.020, Urine Protein NEGATIVE, Urine Glucose (UA) TRACEH, Urine Ketones NEGATIVE, Urine Nitrite NEGATIVE, Urine Bilirubin NEGATIVE, Urine Urobilinogen 4.0, Urine Leukocyte Esterase NEGATIVE, Urine RBC (Auto) NEGATIVE, Urine RBC NONE, Urine WBC 0-2, Urine Squamous Epithelial Cells 0-2, Urine Crystals NONE, Urine Bacteria TRACE, Urine Casts NONE, Urine Mucus MODERATEH, Urine Culture Indicated NO 05/04/20 11:38: Lactic Acid Level 1.25 05/05/20 05:33: White Blood Count 12.9H, Red Blood Count 4.51, Hemoglobin 13.2L, Hematocrit 40, Mean Corpuscular Volume 88, Mean Corpuscular Hemoglobin 29, Mean Corpuscular Hemoglobin Concent 33, Red Cell Distribution Width 14.7H, Platelet Count 208, Mean Platelet Volume 11.0, Immature Granulocyte % (Auto) 0, Neutrophils (%) (Auto) 64, Lymphocytes (%) (Auto) 17, Monocytes (%) (Auto) 8, Eosinophils (%) (Auto) 10, Basophils (%) (Auto) 1, Neutrophils # (Auto) 8.3H, Lymphocytes # (Auto) 2.2, Monocytes # (Auto) 1.0, Eosinophils # (Auto) 1.3H, Basophils # (Auto) 0.1, Immature Granulocyte # (Auto) 0.0, Sodium Level 137, Potassium Level 3.7, Chloride Level 104, Carbon Dioxide Level 24, Anion Gap 9, Blood Urea Nitrogen 10, Creatinine 0.77, Estimat Glomerular Filtration Rate > 60, BUN/Creatinine Ratio 13, Glucose Level 112H, Calcium Level 8.9, Corrected Calcium 9.1, Total Bilirubin 0.9, Aspartate Amino Transf (AST/SGOT) 18, Alanine Aminotransferase (ALT/SGPT) 20, Alkaline Phosphatase 61, Total Protein 6.8, Albumin 3.7 Pending Labs Laboratory Tests 05/01/20 05:35: White Blood Count 13.6, Red Blood Count 4.61, Hemoglobin 13.4, Hematocrit 41, Mean Corpuscular Volume 88, Mean Corpuscular Hemoglobin 29, Mean Corpuscular Hemoglobin Concent 33, Red Cell Distribution Width 14.5, Platelet Count 187, Mean Platelet Volume 11.1, Immature Granulocyte % (Auto) 0, Neutrophils (%) (Auto) 55, Lymphocytes (%) (Auto) 20, Monocytes (%) (Auto) 9, Eosinophils (%) (Auto) 14, Basophils (%) (Auto) 1, Neutrophils # (Auto) 7.6, Lymphocytes # (Auto) 2.7, Monocytes # (Auto) 1.2, Eosinophils # (Auto) 1.9, Basophils # (Auto) 0.2, Immature Granulocyte # (Auto) 0.0, Sodium Level 137, Potassium Level 3.9, Chloride Level 107, Carbon Dioxide Level 22, Anion Gap 8, Blood Urea Nitrogen 10, Creatinine 0.82, Estimat Glomerular Filtration Rate > 60, BUN/Creatinine Ratio 12, Glucose Level 124, Calcium Level 8.8, Corrected Calcium 9.3, Total Bilirubin 0.6, Aspartate Amino Transf (AST/SGOT) 14, Alanine Aminotransferase (ALT/SGPT) 13, Alkaline Phosphatase 68, Total Protein 6.0, Albumin 3.4 05/04/20 05:15: White Blood Count 20.3, Red Blood Count 4.26, Hemoglobin 12.5, Hematocrit 38, Mean Corpuscular Volume 89, Mean Corpuscular Hemoglobin 29, Mean Corpuscular Hemoglobin Concent 33, Red Cell Distribution Width 15.0, Platelet Count 179, Mean Platelet Volume 10.8, Immature Granulocyte % (Auto) 0, Neutrophils (%) (Auto) 77, Lymphocytes (%) (Auto) 12, Monocytes (%) (Auto) 7, Eosinophils (%) (Auto) 4, Basophils (%) (Auto) 1, Neutrophils # (Auto) 15.6, Lymphocytes # (Auto) 2.4, Monocytes # (Auto) 1.3, Eosinophils # (Auto) 0.7, Basophils # (Auto) 0.1, Immature Granulocyte # (Auto) 0.1, Sodium Level 137, Potassium Level 3.8, Chloride Level 105, Carbon Dioxide Level 23, Anion Gap 9, Blood Urea Nitrogen 13, Creatinine 0.83, Estimat Glomerular Filtration Rate > 60, BUN/Creatinine Ratio 16, Glucose Level 120, Calcium Level 8.4, Corrected Calcium 9.0, Total Bilirubin 1.1, Aspartate Amino Transf (AST/SGOT) 14, Alanine Aminotransferase (ALT/SGPT) 16, Alkaline Phosphatase 58, Total Protein 5.9, Albumin 3.3, Neutrophils % (Manual) 73, Lymphocytes % (Manual) 18, Monocytes % (Manual) 6, Eosinophils % (Manual) 3, Blood Morphology Comment NORMAL, Procalcitonin 0.09 05/04/20 09:10: Urine Color YELLOW, Urine Clarity CLEAR, Urine pH 6.5, Urine Specific [place] 1.020, Urine Protein NEGATIVE, Urine Glucose (UA) TRACE, Urine Ketones NEGATIVE, Urine Nitrite NEGATIVE, Urine Bilirubin NEGATIVE, Urine Urobilinogen 4.0, Urine Leukocyte Esterase NEGATIVE, Urine RBC (Auto) NEGATIVE, Urine RBC NONE, Urine WBC 0-2, Urine Squamous Epithelial Cells 0-2, Urine Crystals NONE, Urine Bacteria TRACE, Urine Casts NONE, Urine Mucus MODERATE, Urine Culture Indicated NO 05/04/20 11:38: Lactic Acid Level 1.25 05/05/20 05:33: White Blood Count 12.9, Red Blood Count 4.51, Hemoglobin 13.2, Hematocrit 40, Mean Corpuscular Volume 88, Mean Corpuscular Hemoglobin 29, Mean Corpuscular Hemoglobin Concent 33, Red Cell Distribution Width 14.7, Platelet Count 208, Mean Platelet Volume 11.0, Immature Granulocyte % (Auto) 0, Neutrophils (%) (Auto) 64, Lymphocytes (%) (Auto) 17, Monocytes (%) (Auto) 8, Eosinophils (%) (Auto) 10, Basophils (%) (Auto) 1, Neutrophils # (Auto) 8.3, Lymphocytes # (Auto) 2.2, Monocytes # (Auto) 1.0, Eosinophils # (Auto) 1.3, Basophils # (Auto) 0.1, Immature Granulocyte # (Auto) 0.0, Sodium Level 137, Potassium Level 3.7, Chloride Level 104, Carbon Dioxide Level 24, Anion Gap 9, Blood Urea Nitrogen 10, Creatinine 0.77, Estimat Glomerular Filtration Rate > 60, BUN/Creatinine Ratio 13, Glucose Level 112, Calcium Level 8.9, Corrected Calcium 9.1, Total Bilirubin 0.9, Aspartate Amino Transf (AST/SGOT) 18, Alanine Aminotransferase (ALT/SGPT) 20, Alkaline Phosphatase 61, Total Protein 6.8, Albumin 3.7 Discharge Home Medications: Active Scripts Active Reported Metoprolol Tartrate 50 Mg Tablet 25 Mg PO BID TAKES OF A 50MG TAB LAST FILLED 09-12-2019 #90 Atorvastatin Calcium 80 Mg Tablet 80 Mg PO HS Aspirin EC (Aspirin) 325 Mg Tablet.dr 325 Mg PO DAILY Budesonide-Formoterol 80-4.5 (Budesonide/Formoterol Fumarate) 10.2 Gm Hfa.aer.ad 2 Puff IH BID PRN Neurontin (Gabapentin) 300 Mg Capsule 900 Mg PO TID PRN TAKES 3 (300MG) TABS Combivent Respimat Inhal [place] (Albuterol/Ipratropium) 4 Gm Aero 1 Puff IH QID PRN Plavix (Clopidogrel Bisulfate) 75 Mg Tablet 75 Mg PO DAILY LAST FILLED 09-13-2019 #90 Baclofen 10 Mg Tablet 10 Mg PO TID PRN Instructions to patient/family Please see electronic discharge instructions given to patient. Diagnosis/Problems Diagnosis/Problems (1) CVA (cerebral vascular accident) Status: Acute (2) Carotid stenosis, symptomatic, with infarction (3) Elevated troponin Status: Acute (4) Hypertension (5) CAD (coronary artery disease) (6) COPD (chronic obstructive pulmonary disease) (7) Illicit drug use Status: Acute (8) Very heavy cigarette smoker (40 or more per day) Status: Acute (9) Methamphetamine use Status: Acute (10) Marijuana abuse PRUDENCE BECK DO May 05, 2020 20:55
[2020-05-06] MEDS ORDERED: FLUTICASONE NASAL SPRAY (FLONASE) 16 GM BTL NS SCH (09:00)
--- NOTE | 2020-05-06 09:28 | Therapy Team Discharge Summary ---
Therapy Discharge Summary Discharge Recommendations Date of Discharge May 05, 2020 at 17:08 Therapy D/C Recommendations: Other, See Comments Occupational Therapy Pt. has been seen by Occupational therapy to increase overall strength and independence with daily tasks. Pt. met some goals, but did leave AMA before ADL goals could fully be addressed again. At discharge, pt. reported that he had dressed self that a.m., after set up, and had showered night before when nursing present. Pt. required cues throughout therapy sessions at times due to constant distraction with personal life and use of his phone. Pt. began getting agitated with friends on phone, and eventually demanded to leave. Pt. would benefit from continued Occupational therapy to work on fine motor coordination and full independence with daily skills. However, due to poor compliance, pt's full recovery ability is unknown. Pt. would benefit from walker and supervision at home. Pt. has verbalized that he has roommates and friends, and a supportive daughter. Decreased Activ Tolerance, Impaired Coordination, Impaired I ADL's PT Residential Goals Group Insurance Special Agent Goals PT Residential Goals Time Frame: May 28, 2020 Roll Left to Right (QC): 6 Sit to Lying (QC): 6 Lying-Sitting on Side/Bed(QC): 6 Sit to Stand (QC): 6 Chair/Nab-oz-Fyncz Xfer(QC): 6 Car Transfer (QC): 6 Does the Patient Walk: Yes Walk 10 feet (QC): 6 Walk 10ft-Uneven Surface(QC): 6 Walk 50ft with 2 Turns (QC): 6 Walk 150 ft (QC): 6 Does the Pt use WC or Scooter?: No Wheel 50 feet with 2 turns (QC: 9 1 Step (curb) (QC): 6 4 Steps (QC): 6 12 Steps (QC): 9 Picking up an Object (QC): 4 OT Group Insurance Special Agent Goals Group Insurance Special Agent Goals Time Frame: May 14, 2020 Eating (FIM): 6 (met) Eating (QC): 6 (met) Oral Hygiene (QC): 6 (not met) Shower/Bathe Self (QC): 4 (met per pt.) Upper Body Dressing (QC): 6 (not met per pt. Requires set up.) Lower Body Dressing (QC): 4 (met per pt.) On/Off Footwear (QC): 4 (met) Toileting(FIM): 6 (not met) Toileting Hygiene (QC): 6 (not met) Toilet/Commode Transfer (QC): 6 (not met) Additional Goals: 1-Demonstrate ADL Tasks, 2-Verbalize Understanding, 3- ImproveStrength/Dutch 1=Demonstrate adherence to instructed precautions during ADL tasks. 2=Patient will verbalize/demonstrate understanding of assistive devices/modif ications for ADL. 3=Patient will improve strength/tolerance for activity to enable patient to perform ADL's. GILBERTO SOTO OT May 06, 2020 09:28
--- NOTE | 2020-05-06 10:19 | Therapy Team Discharge Summary ---
Therapy Discharge Summary Discharge Recommendations Date of Discharge May 05, 2020 at 17:08 Therapy D/C Recommendations: Other, See Comments Physical Therapy This patient admitted to ARU post acute hospital stay due to CVA. His PLOF was indep with all funcitonal mobility. Upon admission, he was grossly min assist with all bed mobility, transfers and gait with noted right side weakness. Treatment has focused on functional strength, balance , activity tolerance and safety. At last visit, he was set up with transfers but SBA with gait due to balance instability. He did not fully meet goals as he discharged prior to expected. He did make progress but does have room for more improvement. Would recommend follow up HHC or outpt care if pt would be agreeable. DC from ARU at this time. Occupational Therapy Decreased Activ Tolerance, Impaired Coordination, Impaired I ADL's PT Penitentiary Goals Entry Writer Goals PT Entry Writer Goals Time Frame: May 28, 2020 Roll Left to Right (QC): 6 Sit to Lying (QC): 6 Lying-Sitting on Side/Bed(QC): 6 Sit to Stand (QC): 6 Chair/Alb-xr-Txhfo Xfer(QC): 6 Car Transfer (QC): 6 Does the Patient Walk: Yes Walk 10 feet (QC): 6 Walk 10ft-Uneven Surface(QC): 6 Walk 50ft with 2 Turns (QC): 6 Walk 150 ft (QC): 6 Does the Pt use WC or Scooter?: No Wheel 50 feet with 2 turns (QC: 9 1 Step (curb) (QC): 6 4 Steps (QC): 6 12 Steps (QC): 9 Picking up an Object (QC): 4 Goals remain unmet as pt left unexpectedly with short ARU stay. OT Entry Writer Goals Entry Writer Goals Time Frame: May 14, 2020 Eating (FIM): 6 (met) Eating (QC): 6 (met) Oral Hygiene (QC): 6 (not met) Shower/Bathe Self (QC): 4 (met per pt.) Upper Body Dressing (QC): 6 (not met per pt. Requires set up.) Lower Body Dressing (QC): 4 (met per pt.) On/Off Footwear (QC): 4 (met) Toileting(FIM): 6 (not met) Toileting Hygiene (QC): 6 (not met) Toilet/Commode Transfer (QC): 6 (not met) Additional Goals: 1-Demonstrate ADL Tasks, 2-Verbalize Understanding, 3- ImproveStrength/Dutch 1=Demonstrate adherence to instructed precautions during ADL tasks. 2=Patient will verbalize/demonstrate understanding of assistive devices/modifications for ADL. 3=Patient will improve strength/tolerance for activity to enable patient to perform ADL's. CIPRIANO MORROW PT May 06, 2020 10:19
== END 2020-05-05 17:08 | disposition left against medical advice (07) | DRG 56 ==
PROVIDERS: ADMIT Internal Medicine; ATTEND Internal Medicine
DX: I69.351 Hemiplegia and hemiparesis following cerebral infarction affecting right dominant side (principal); I21.4 Non-ST elevation (NSTEMI) myocardial infarction; I47.1 Supraventricular tachycardia; I25.10 Atherosclerotic heart disease of native coronary artery without angina pectoris; I10 Essential (primary) hypertension; J44.9 Chronic obstructive pulmonary disease, unspecified; F15.10 Other stimulant abuse, uncomplicated; F12.10 Cannabis abuse, uncomplicated; F17.210 Nicotine dependence, cigarettes, uncomplicated; I65.23 Occlusion and stenosis of bilateral carotid arteries; T82.868D Thrombosis due to vascular prosthetic devices, implants and grafts, subsequent encounter; E78.00 Pure hypercholesterolemia, unspecified; E78.5 Hyperlipidemia, unspecified; G62.9 Polyneuropathy, unspecified; M19.91 Primary osteoarthritis, unspecified site; M54.9 Dorsalgia, unspecified; H54.3 Unqualified visual loss, both eyes; F41.9 Anxiety disorder, unspecified; F32.9 Major depressive disorder, single episode, unspecified; R45.6 Violent behavior; R00.1 Bradycardia, unspecified; B19.20 Unspecified viral hepatitis C without hepatic coma; Z95.5 Presence of coronary angioplasty implant and graft; Z79.82 Long term (current) use of aspirin
CPT/HCPCS: 36415; 70551; 71046; 80053; 81000; 83605; 84145; 85007; 85025; 85027; 93005; 94640; 94664; 94760

== ENCOUNTER 2020-05-23 10:37 | Emergency (ER) | payer MEDICARE, OTHER ==
[~2020-05-23] VITALS: Ht 182.8 cm; Wt 72.7 kg
[~2020-05-23 10:37] MED LIST changes: -ALPRAZolam 0.25 MG (XANAX) TAB PO PRN; -BISACODYL 10 MG SUPP (DULCOLAX) PR PRN; -CALCIUM CARBONATE 500 MG (TUMS) TAB.CHEW PO PRN; -DOCUSATE SODIUM 100 MG (COLACE) CAP PO PRN; -FLEET ENEMA ADULT 1 EA BTL PR PRN; -LOPERAMIDE 2 MG (IMODIUM) TABLET PO PRN; -MELATONIN 3 MG TABLET PO PRN; -ONDANSETRON 4 MG (ZOFRAN) ORAL DISSOLVE TAB PO PRN; -diphenhydrAMINE 25 MG TAB (BENADRYL) PO PRN
--- NOTE | 2020-05-23 10:56 | ED Neurological Problem ---
General Stated Complaint: WEAKNESS Source: patient Exam Limitations: no limitations History of Present Illness Date Seen by Provider: May 23, 2020 Time Seen by Provider: 10:45 Initial Comments To ER with reports of weakness and possible stroke. He went to bed last night with inability to move his right arm and right leg. He was admitted here on 11/10 for similar symptoms with right arm and right leg weakness. He was discharged on the after MRI revealed subacute CVA. He was transferred down to the inpatient rehab unit. He has been home for a few days and was feeling well initially until he began feeling generally weak 2 days ago. As mentioned last night he went to bed with inability to move his right arm or right leg. He is difficult to assess because he will not put his cell phone down and quit texting. He does not make eye contact and does not move his eyes from his phone during assessment. He uses his left hand to text. His right arm and right leg are flaccid. He states that he has never had this right arm weakness before though previous records state that that is why he was admitted Timing/Duration: 24 hours Severity: moderate Allergies and Home Medications Allergies Coded Allergies: No Known Drug Allergies (Unverified , 03/13/18) Home Medications Albuterol/Ipratropium 4 Gm Aero, 1 PUFF IH QID PRN for SHORTNESS OF BREATH, (Reported) Aspirin 325 Mg Tablet.dr, 325 MG PO DAILY, (Reported) Atorvastatin Calcium 80 Mg Tablet, 80 MG PO HS, (Reported) Baclofen 10 Mg Tablet, 10 MG PO TID PRN for MUSCLE SPASMS, (Reported) Budesonide/Formoterol Fumarate 10.2 Gm Hfa.aer.ad, 2 PUFF IH BID PRN for SHORTNESS OF BREATH, (Reported) Clopidogrel Bisulfate 75 Mg Tablet, 75 MG PO DAILY, (Reported) LAST FILLED 09-13-2019 #90 Gabapentin 300 Mg Capsule, 900 MG PO TID PRN for PAIN-BREAKTHROUGH, (Reported) TAKES 3 (300MG) TABS Metoprolol Tartrate 50 Mg Tablet, 25 MG PO BID, (Reported) TAKES OF A 50MG TAB LAST FILLED 09-12-2019 #90 Patient Home Medication List Home Medication List Reviewed: Yes Review of Systems Review of Systems Constitutional: see HPI, weakness Eyes: No Symptoms Reported Ears, Nose, Mouth, Throat: no symptoms reported Respiratory: no symptoms reported Cardiovascular: no symptoms reported Genitourinary: no symptoms reported Musculoskeletal: no symptoms reported Skin: no symptoms reported Psychiatric/Neurological: No Symptoms Reported Endocrine: No Symptoms Reported Hematologic/Lymphatic: No Symptoms Reported Past Jhvuwap-Qjemhf-Ppmosb Hx Patient Social History Alcohol Beverage of Choice: Whiskey Drug of Choice: DAILY MARIJUANA USE, HX METH USE, DENIES IV USE Type Used: Cigarettes 2nd Hand Smoke Exposure: Yes Recent Hopitalizations: No Immunizations Up To Date Tetanus Booster (TDap): Less than 5yrs Date of Pneumonia Vaccine: June 20, 2013 Date of Influenza Vaccine: Jan 21, 2020 Seasonal Allergies Seasonal Allergies: No Past Medical History Surgeries: Yes (EYES;C+L SPINE;CARDIAC CATHS-STENTS X3;BILAT CAROTID ENDART;FOOT;SKIN CA) Angioplasty, Appendectomy, Cardiac, Coronary Stent, Eye Surgery, Orthopedic, Vascular Surgery Respiratory: Yes COPD Cardiac: Yes (CARDIAC CATHS-STENTS X3; BILAT CAROTID ENDARTERECTOMIES;R CAROTID STENT) Coronary Artery Disease, Heart Attack, High Cholesterol, Hypertension, Peripheral Vascular Neurological: Yes (stroke Jan 20, 2020, R sided stent placed; TIA 03/23/20) Neuropathy, Stroke, TIA Reproductive Disorders: No Sexually Transmitted Disease: No HIV/AIDS: No Genitourinary: No Gastrointestinal: Yes (HEPATITIS C--S/P TREATMENT) Hepatitis Musculoskeletal: Yes (CHRONIC NECK AND BACK PAIN-S/P C-SPINE + L-SPINE SURGERY; L FOOT FX/ORIF) Degenerate Disk Disease, Arthritis, Chronic Back Pain, Fractures Endocrine: No HEENT: Yes (READING GLASSES;EYE SURGERY CHILD) Loss of Vision: Bilateral Hearing Impairment: Hard of Hearing Cancer: Yes Skin Did You Recieve Any Treatments: Yes What Type of Treatment Did You: Surgical Intervention Psychosocial: Yes Anxiety, Violent Behavior, Depression Integumentary: Yes (SKIN CANCER-GETS BLISTERS) Blood Disorders: No Adverse Reaction/Blood Tranf: No Family Medical History Cancer 19 FATHER (SKIN) 19 MOTHER Cancer of colon 19 MOTHER Kidney disease 19 FATHER (PASSED KIDNEY FAILURE) SOCIAL HISTORY: -ETOH--OCCASIONAL USE, HX OF HEAVY USE -DRUGS--DAILY MARIJUANA USE, ALSO METH USE. DENIES IV DRUG USE -SMOKES 2 PPD PAST SURGICAL HISTORY: -LAST CARDIAC CATH DONE HERE IN 2013--PATENT STENTS -CARDIAC CATHS WITH STENTS X 3 -BILATERAL CAROTID ENDARTERECTOMY -RIGHT CAROTID STENT 01/21/20 AT -RIGHT EYE SURGERY CHILD -CERVICAL SPINE AND LUMBAR SPINE SURGERIES -LEFT FOOT FRACTURE/ ORIF -SKIN CANCER REMOVAL -APPENDECTOMY Physical Exam Vital Signs Vital Signs - First Documented 05/23/20 10:37 Temp 36.2 Pulse 62 Resp 18 B/P (MAP) 146/93 (110) Pulse Ox 98 O2 Delivery Room Air Capillary Refill : Height, Weight, BMI Height: 6'1.00" Weight: 195lbs. 0oz. 88.437033bl; 21.15 BMI Method:Actual General Appearance: WD/WN, no apparent distress HEENT: PERRL/EOMI, normal ENT inspection Neck: non-tender, full range of motion Respiratory: normal breath sounds, no respiratory distress, no accessory muscle use Cardiovascular: regular rate, rhythm, no murmur Gastrointestinal: normal bowel sounds, non tender, soft Extremities: normal range of motion, non-tender Neurologic/Psychiatric: alert, normal mood/affect, oriented x 3 Crainal Nerves: normal hearing, normal speech, PERRL Skin: normal color, warm/dry Stroke Onset of Symptoms Date of Onset of Symptoms: May 22, 2020 Time of Symptom Onset: 16:00 Onset of Symptoms: Yes NIH Stroke Scale Assessment Select: Initial Level of Consciousness: 0=Alert (0), Level of Consciousness- Questions: 0=Answers both month/age (0), LOC Commands: 0=Performs both tasks (0), Gaze: Normal (0), Visual Perry: 0=No visual loss (0), Facial Movement (Facial Paresis): 0=Normal symmetrical mnt (0), Motor Function-Arms Right: 4=No movement (4), Motor Function-Arms Left: 0=No drift (0), Motor Function- Legs Right: 4=No movement (4), Motor Function-Legs Left: 0=No drift (0), Limb Ataxia: 2=Present in two limbs (2), Sensory: 0=Normal:no loss (0), Best Language: 0=No aphasia (0), Dysarthria: 0=Normal (0), Extinction & Inattention: 0=No abnormality (0), Total: 10 Stroke Thrombolytic Exclusion Age 18 or Over: Yes Acute intenal hemorrhage: No History of CVA: Yes Uncontrolled Coagulation Defec: No Intracranial Hemorrhage: No Severe Hypertension: No GI or Bleed: No Subarachnoid Hemorrhage: No Intracranial Neoplasm/Aneurysm: No Oral Anticoagulants: Yes Surgery or Trauma: Yes Puncture of Non-Compressible V: No Recent CPR: No Diabetic Hemorrhagic Retinopat: No Organ Biopsy: No Recent Obstetric Delivery: No Glucose: No Significant Hepatic Dysfunctio: No NIH Stoke Scale >22: No Bacterial Endocarditis: No Pericarditis: No Improving Symptoms: No Platelets: No Progress/Results/Core Measures Results/Orders Lab Results Laboratory Tests Test 05/23/20 11:15 05/23/20 14:08 Range/Units White Blood Count 10.4 4.3-11.0 10^3/uL Red Blood Count 4.66 4.30-5.52 10^6/uL Hemoglobin 13.4 13.3-17.7 g/dL Hematocrit 42 40-54 % Mean Corpuscular Volume 90 80-99 fL Mean Corpuscular Hemoglobin 29 25-34 pg Mean Corpuscular Hemoglobin Concent 32 32-36 g/dL Red Cell Distribution Width 14.5 10.0-14.5 % Platelet Count 237 130-400 10^3/uL Mean Platelet Volume 10.9 9.0-12.2 fL Immature Granulocyte % (Auto) 0 % Neutrophils (%) (Auto) 61 42-75 % Lymphocytes (%) (Auto) 17 12-44 % Monocytes (%) (Auto) 9 0-12 % Eosinophils (%) (Auto) 13 H 0-10 % Basophils (%) (Auto) 1 0-10 % Neutrophils # (Auto) 6.4 1.8-7.8 10^3/uL Lymphocytes # (Auto) 1.7 1.0-4.0 10^3/uL Monocytes # (Auto) 0.9 0.0-1.0 10^3/uL Eosinophils # (Auto) 1.3 H 0.0-0.3 10^3/uL Basophils # (Auto) 0.1 0.0-0.1 10^3/uL Immature Granulocyte # (Auto) 0.0 0.0-0.1 10^3/uL Neutrophils % (Manual) 57 % Lymphocytes % (Manual) 17 % Monocytes % (Manual) 11 % Eosinophils % (Manual) 15 % Basophils % (Manual) 0 % Band Neutrophils 0 % Blood Morphology Comment NORMAL Prothrombin Time 14.4 12.2-14.7 SEC INR Comment 1.1 0.8-1.4 Activated Partial Thromboplast Time 31 24-35 SEC Sodium Level 139 135-145 MMOL/L Potassium Level 3.1 L 3.6-5.0 MMOL/L Chloride Level 102 98-107 MMOL/L Carbon Dioxide Level 28 21-32 MMOL/L Anion Gap 9 5-14 MMOL/L Blood Urea Nitrogen 10 7-18 MG/DL Creatinine 0.85 0.60-1.30 MG/DL Estimat Glomerular Filtration Rate > 60 BUN/Creatinine Ratio 12 Glucose Level 117 H 70-105 MG/DL Calcium Level 9.3 8.5-10.1 MG/DL Corrected Calcium 9.5 8.5-10.1 MG/DL Magnesium Level 1.9 1.6-2.4 MG/DL Total Bilirubin 1.1 H 0.1-1.0 MG/DL Aspartate Amino Transf (AST/SGOT) 9 5-34 U/L Alanine Aminotransferase (ALT/SGPT) 12 0-55 U/L Alkaline Phosphatase 82 40-136 U/L Myoglobin 124.4 H 10.0-92.0 NG/ML Troponin I < 0.028 <0.028 NG/ML B-Type Natriuretic Peptide 31.4 <100.0 PG/ML Total Protein 6.7 6.4-8.2 GM/DL Albumin 3.7 3.2-4.5 GM/DL Serum Alcohol < 10 <10 MG/DL Urine Color YELLOW Urine Clarity CLEAR Urine pH 6.5 5-9 Urine Specific [place] 1.020 1.016-1.022 Urine Protein TRACE H NEGATIVE Urine Glucose (UA) NEGATIVE NEGATIVE Urine Ketones NEGATIVE NEGATIVE Urine Nitrite NEGATIVE NEGATIVE Urine Bilirubin 1+ H NEGATIVE Urine Urobilinogen 1.0 < = 1.0 MG/DL Urine Leukocyte Esterase NEGATIVE NEGATIVE Urine RBC (Auto) NEGATIVE NEGATIVE Urine RBC NONE /HPF Urine WBC 5-10 H /HPF Urine Squamous Epithelial Cells NONE /HPF Urine Crystals NONE /LPF Urine Bacteria NEGATIVE /HPF Urine Casts NONE /LPF Urine Mucus SMALL H /LPF Urine Culture Indicated YES Urine Opiates Screen NEGATIVE NEGATIVE Urine Oxycodone Screen NEGATIVE NEGATIVE Urine Methadone Screen NEGATIVE NEGATIVE Urine Propoxyphene Screen NEGATIVE NEGATIVE Urine Barbiturates Screen NEGATIVE NEGATIVE Ur Tricyclic Antidepressants Screen NEGATIVE NEGATIVE Urine Phencyclidine Screen NEGATIVE NEGATIVE Urine Amphetamines Screen POSITIVE H NEGATIVE Urine Methamphetamines Screen POSITIVE H NEGATIVE Urine Benzodiazepines Screen NEGATIVE NEGATIVE Urine Cocaine Screen NEGATIVE NEGATIVE Urine Cannabinoids Screen POSITIVE H NEGATIVE My Orders Orders - SONIA CRISTOBAL APRN Cbc With Automated Diff (05/23/20 11:01) Magnesium (05/23/20 11:01) Chest 1 View, Ap/Pa Only (05/23/20 11:01) Ekg Tracing (05/23/20 11:01) Comprehensive Metabolic Panel (05/23/20 11:01) Myoglobin Serum (05/23/20 11:01) Protime With Inr (05/23/20 11:01) Partial Thromboplastin Time (05/23/20 11:01) O2 (05/23/20 11:01) Monitor-Rhythm Ecg Trace Only (05/23/20 11:01) Lipid Panel (05/24/20 06:00) Ed Iv/Invasive Line Start (05/23/20 11:01) BNP (05/23/20 11:01) Troponin I (05/23/20 11:01) Drug Screen Stat (Urine) (05/23/20 11:13) Ua Culture If Indicated (05/23/20 11:13) Alcohol (05/23/20 11:13) Manual Differential (05/23/20 11:15) Ct Angio Head/Neck (05/23/20 11:55) Iohexol Injection (Omnipaque 350 Mg/Ml 1 (05/23/20 12:15) Received Contrast (Hold Metformin- Contr (05/23/20 12:15) Ns (Ivpb) (Sodium Chloride 0.9% Ivpb Bag (05/23/20 12:15) Urine Culture (05/23/20 14:08) Medications Given in ED Current Medications Medications Dose Ordered Sig/Lindsey Route Start Time Stop Time Status Last Admin Dose Admin Iohexol 75 ml ONCE ONCE IV 05/23/20 12:15 05/23/20 12:16 DC 05/23/20 12:49 75 ML Sodium Chloride 100 ml ONCE ONCE IV 05/23/20 12:15 05/23/20 12:16 DC 05/23/20 12:49 80 ML Vital Signs/I&O 05/23/20 10:37 Temp 36.2 Pulse 62 Resp 18 B/P (MAP) 146/93 (110) Pulse Ox 98 O2 Delivery Room Air Diagnostic Imaging Diagonstic Imaging: Xray Comments NAME: CRISTI [facility]THY [facility] REC#: [id number] PT STATUS: REG ER : 1955 PHYSICIAN: SONIA CRISTOBAL APRN ADMIT DATE: 05/23/20/ER Draft Date of Exam:05/23/20 CT ANGIO HEAD/NECK PROCEDURE: CT angiography of the head and CT angiography of the neck with and without contrast. TECHNIQUE: Contiguous noncontrast images were obtained from the skull base through the vertex. After intravenous contrast administration, helical CT angiography of the neck was performed. Source data was reformatted into 3D MIP projections. Delayed post contrast acquisition was also obtained. Auto Exposure Controls were utilized during the CT exam to meet ALARA standards for radiation dose reduction. INDICATION: Flaccid right arm with history of previous strokes. The right arm not moving is a new symptom. COMPARISON: 04/28/2020 FINDINGS: There is again noted atherosclerosis of the right common carotid artery with approximately 50% stenosis. There is a stent in the right internal carotid artery. The seen previously seen thrombus within the stent is slightly less prominent on today's exam. There is unchanged complete occlusion of the left common carotid artery and internal carotid artery proximally. There is some retrograde flow into the distal petrous portion of the left internal carotid artery which remains moderately stenotic. There is a dominant left vertebral artery which is widely patent. Right vertebral artery remains patent as well. Basilar arteries patent. The distal right internal carotid artery is patent. No definite proximal intracranial branch occlusions, vascular malformations or aneurysms are appreciated. There is unchanged focal encephalomalacia in the right parietal lobe compatible with prior CVA. No definitive new areas of encephalomalacia are appreciated to suggest interval additional CVA. There is no hydrocephalus. No midline shift. No mass, hemorrhage or extra-axial fluid collection. Sinuses and mastoid air cells are essentially clear apart from a few small mucous retention cysts or polyps in the sphenoid sinus. There is no other acute abnormality in the neck. Perfusion otherwise appears symmetric bilaterally intracranially. Note is again made of degenerative postsurgical changes in the cervical spine IMPRESSION: Unchanged complete occlusion of the left common carotid artery and internal carotid arteries with persistent stenosis of the petrous portion of the left internal carotid artery which is presumably filling in a retrograde fashion. The internal thrombus within the right internal carotid artery stent is slightly less prominent than on the prior examination. Intracranially there are no proximal branch occlusions, vascular malformations or aneurysms. Unchanged encephalomalacia in the right parietal lobe compatible prior CVA. Dictated on workstation # [id number] Dict: 05/23/20 1255 Trans: 05/23/20 1317 [facility] [id number] Interpreted by: GOLDEN CHAVEZ MD Electronically signed by: Departure Communication (Admissions) Spoke with Dr. Curtis, will admit. I spoke with Dr. Matthew from stroke neurology at the [facility]. Advises that though it may be tempting to use anticoagulation given the thrombus there is no real indication for it. Aspirin and Plavix should be sufficient. [id number] with the patient that he should be admitted for possible rehabilitation. This recommendation based on the fact that he cannot use his right arm or right leg. He then raises his right leg off the bed and swings his arm in a ambler. He shows me that he now has full range of motion of the right arm and is using the hand to help hold his cell phone. He states he prefer to go on home and although I did strongly encourage admission, he declined. Impression Primary Impression: Methamphetamine use Additional Impressions: transient right hemiparesis Very heavy cigarette smoker (40 or more per day) Disposition: 07 AGAINST MEDICAL ADVICE Condition: Improved Admissions Decision to Admit Reason: Admit from ER (General) Decision to Admit/Date: May 23, 2020 Time/Decision to Admit Time: 14:43 Departure-Patient Inst. Decision time for Depature: 14:56 Referrals: YUMIKO HERNANDEZ MD (PCP/Family) Primary Care Physician Patient Instructions: NO INSTRUCTIONS GIVEN Add. Discharge Instructions: 1. Return to ER for any worsening or recurrent symptoms. Quit using meth and quit smoking. Follow-up with your doctor next week. SONIA CRISTOBAL WINDOW FRAMER May 23, 2020 10:56
[2020-05-23 11:27] LABS: BASOPHILS # (AUTO) 0.1 10^3/uL (0.0-0.1); BASOPHILS % (AUTO) 1 % (0-10); EOSINOPHILS # (AUTO) 1.3 10^3/uL (0.0-0.3); EOSINOPHILS % (AUTO) 13 % (0-10); HEMATOCRIT 42 % (40-54); HEMOGLOBIN 13.4 g/dL (13.3-17.7); LYMPHOCYTES # (AUTO) 1.7 10^3/uL (1.0-4.0); LYMPHOCYTES % (AUTO) 17 % (12-44); MEAN CORPUSCULAR HEMOGLOBIN 29 pg (25-34); MEAN CORPUSCULAR HGB CONC 32 g/dL (32-36); MEAN CORPUSCULAR VOLUME 90 fL (80-99); MEAN PLATELET VOLUME 10.9 fL (9.0-12.2); MONOCYTES # (AUTO) 0.9 10^3/uL (0.0-1.0); MONOCYTES % (AUTO) 9 % (0-12); NEUTROPHILS # (AUTO) 6.4 10^3/uL (1.8-7.8); NEUTROPHILS % (AUTO) 61 % (42-75); PLATELET COUNT 237 10^3/uL (130-400); WHITE BLOOD COUNT 10.4 10^3/uL (4.3-11.0)
[2020-05-23 11:40] LABS: INR 1.1 (0.8-1.4); PROTHROMBIN TIME PATIENT 14.4 SEC (12.2-14.7)
[2020-05-23 11:45] LABS: BAND NEUTROPHILS 0 %; BASOPHILS % (MANUAL) 0 %; EOSINOPHILS % (MANUAL) 15 %; LYMPHOCYTES % (MANUAL) 17 %; MONOCYTES % (MANUAL) 11 %; NEUTROPHILS % (MANUAL) 57 %; RBC MORPH NORMAL
[2020-05-23 11:50] LABS: ALANINE AMINOTRANSFERASE 12 U/L (0-55); ALBUMIN 3.7 GM/DL (3.2-4.5); ALKALINE PHOSPHATASE 82 U/L (40-136); BILIRUBIN,TOTAL 1.1 MG/DL (0.1-1.0); BUN/CREATININE RATIO 12; CALCIUM 9.3 MG/DL (8.5-10.1); CARBON DIOXIDE 28 MMOL/L (21-32); CHLORIDE 102 MMOL/L (98-107); CREATININE SERUM 0.85 MG/DL (0.60-1.30); GFR ESTIMATED > 60; GLUCOSE 117 MG/DL (70-105); MAGNESIUM 1.9 MG/DL (1.6-2.4); POTASSIUM 3.1 MMOL/L (3.6-5.0); SODIUM 139 MMOL/L (135-145); TOTAL PROTEIN 6.7 GM/DL (6.4-8.2)
--- NOTE | 2020-05-23 12:11 | Diagnostic Imaging Report ---
INDICATION: Chest pain. COMPARISON: 05/05/2020. FINDINGS: There is cardiomegaly. There is no pleural effusion, pneumothorax or pneumonia. Mediastinum is unremarkable. IMPRESSION: No acute cardiopulmonary abnormality. Cardiomegaly. Dictated by: Dictated on workstation # [id number]
[2020-05-23] MEDS ORDERED: IOHEXOL 350 MG/ML 100 ML (OMNIPAQUE 350) VIAL IV ONE (12:15)
[2020-05-23] MEDS ORDERED: NS 100 ML (IVPB) BAG IV ONE (12:15)
[2020-05-23] MEDS ORDERED: HOLD METFORMIN - RECEIVED CONTRAST 20 ML VIAL IV SCH (12:15)
--- NOTE | 2020-05-23 13:18 | Diagnostic Imaging Report ---
PROCEDURE: CT angiography of the head and CT angiography of the neck with and without contrast. TECHNIQUE: Contiguous noncontrast images were obtained from the skull base through the vertex. After intravenous contrast administration, helical CT angiography of the neck was performed. Source data was reformatted into 3D MIP projections. Delayed post contrast acquisition was also obtained. Auto Exposure Controls were utilized during the CT exam to meet ALARA standards for radiation dose reduction. INDICATION: Flaccid right arm with history of previous strokes. The right arm not moving is a new symptom. COMPARISON: 04/28/2020 FINDINGS: There is again noted atherosclerosis of the right common carotid artery with approximately 50% stenosis. There is a stent in the right internal carotid artery. The seen previously seen thrombus within the stent is slightly less prominent on today's exam. There is unchanged complete occlusion of the left common carotid artery and internal carotid artery proximally. There is some retrograde flow into the distal petrous portion of the left internal carotid artery which remains moderately stenotic. There is a dominant left vertebral artery which is widely patent. Right vertebral artery remains patent as well. Basilar arteries patent. The distal right internal carotid artery is patent. No definite proximal intracranial branch occlusions, vascular malformations or aneurysms are appreciated. There is unchanged focal encephalomalacia in the right parietal lobe compatible with prior CVA. No definitive new areas of encephalomalacia are appreciated to suggest interval additional CVA. There is no hydrocephalus. No midline shift. No mass, hemorrhage or extra-axial fluid collection. Sinuses and mastoid air cells are essentially clear apart from a few small mucous retention cysts or polyps in the sphenoid sinus. There is no other acute abnormality in the neck. Perfusion otherwise appears symmetric bilaterally intracranially. Note is again made of degenerative postsurgical changes in the cervical spine IMPRESSION: Unchanged complete occlusion of the left common carotid artery and internal carotid arteries with persistent stenosis of the petrous portion of the left internal carotid artery which is presumably filling in a retrograde fashion. The internal thrombus within the right internal carotid artery stent is slightly less prominent than on the prior examination. Intracranially there are no proximal branch occlusions, vascular malformations or aneurysms. Unchanged encephalomalacia in the right parietal lobe compatible prior CVA. Dictated by: Dictated on workstation # [id number]
[2020-05-23 14:14] LABS: CLARITY,URINE CLEAR; COLOR,URINE YELLOW; GLUCOSE, URINE (UA) NEGATIVE (NEGATIVE); KETONES,URINE NEGATIVE (NEGATIVE); LEUKOCYTE ESTERASE ,URINE NEGATIVE (NEGATIVE); NITRITE,URINE NEGATIVE (NEGATIVE); PH,URINE 6.5 (5-9); PROTEIN,URINE TRACE (NEGATIVE)
[2020-05-23 14:32] LABS: AMPHETAMINE SCREEN, URINE POSITIVE (NEGATIVE); BACTERIA,URINE NEGATIVE /HPF; BARBITURATE SCREEN URINE NEGATIVE (NEGATIVE); BENZODIAZEPINES SCREEN URINE NEGATIVE (NEGATIVE); BILIRUBIN,URINE 1+ (NEGATIVE); CANNABINOID SCREEN, URINE POSITIVE (NEGATIVE); COCAINE SCREEN URINE NEGATIVE (NEGATIVE); METHADONE STAT NEGATIVE (NEGATIVE); METHAMPHETAMINE SCREEN URINE S POSITIVE (NEGATIVE); OPIATE SCREEN URINE NEGATIVE (NEGATIVE); OXYCODONE STAT NEGATIVE (NEGATIVE); PROPOXYPHENE STAT NEGATIVE (NEGATIVE); TRICYCLIC ANTIDEPRESSANTS SCRE NEGATIVE (NEGATIVE)
[2020-05-23 15:16] VITALS: BP 185/111
== END 2020-05-23 15:16 | disposition left against medical advice (07) ==
LOC: EDUNIT# 10:37 → ER 10:38 → UNDOADMIN 14:36 → 4TH 14:36
DX: I69.351 Hemiplegia and hemiparesis following cerebral infarction affecting right dominant side (principal); F15.90 Other stimulant use, unspecified, uncomplicated; F17.210 Nicotine dependence, cigarettes, uncomplicated; R29.710 NIHSS score 10; I10 Essential (primary) hypertension; I25.2 Old myocardial infarction; I25.10 Atherosclerotic heart disease of native coronary artery without angina pectoris; E78.00 Pure hypercholesterolemia, unspecified; J44.9 Chronic obstructive pulmonary disease, unspecified; Z85.820 Personal history of malignant melanoma of skin; Z95.5 Presence of coronary angioplasty implant and graft; Z95.9 Presence of cardiac and vascular implant and graft, unspecified; Z79.82 Long term (current) use of aspirin; Z79.02 Long term (current) use of antithrombotics/antiplatelets; Z79.51 Long term (current) use of inhaled steroids
CPT/HCPCS: 70496; 70498; 71045; 80053; 80306; 81000; 83735; 83874; 83880; 84484; 85007; 85027; 85610; 85730; 87088; 93005; 93041; 99284; G0480; 36415; 80320

== ENCOUNTER 2020-05-26 10:05 | Inpatient (IN) | payer MEDICARE, OTHER ==
[~2020-05-26] VITALS: Ht 182.9 cm; Wt 82.4 kg
[2020-05-26 10:05] VITALS: BP 110/59
[~2020-05-26 10:05] MED LIST changes: +BISACODYL 10 MG SUPP (DULCOLAX) PR PRN; +CALCIUM CARBONATE 500 MG (TUMS) TAB.CHEW PO PRN; +DOCUSATE SODIUM 100 MG (COLACE) CAP PO PRN; +FLEET ENEMA ADULT 1 EA BTL PR PRN; +LACTULOSE SYRUP 10GM/15ML (ENULOSE) 30ML UDC PO PRN; +LOPERAMIDE 2 MG (IMODIUM) TABLET PO PRN; +ONDANSETRON 4 MG (ZOFRAN) ORAL DISSOLVE TAB PO PRN; +diphenhydrAMINE 25 MG TAB (BENADRYL) PO PRN; +guaiFENesin/CODEINE (ROBITUSSIN AC) 10ML UDC PO PRN
[2020-05-26] MEDS ORDERED: RT-ALBUTEROL INHALER HFA (VENTOLIN HFA) 18 GM IH PRN (10:45)
[2020-05-26] MEDS ORDERED: hydrALAZINE (APRESOLINE) 25 MG TAB PO PRN (10:45)
--- NOTE | 2020-05-26 10:46 | PM&R Post Admission Assessment ---
PM&R HP Date of Visit: May 26, 2020 Time of Visit: 10:45 History of Present Illness CC: CVA HPI: This is a 65yoWM clinic pt of Mary Arnold at the [facility] in [place] who presented to the ER and hospital service with right sided weakness. Pt has a hx of stroke. He had left again medical advice in inpatient rehab a few weeks ago so he says he is stopping the usage of methamphetamines and currently will need some help with aggressive therapy to regain strength on the right side. His lungs remain clear and denies any other recurrent pain. Past Towkvrk-Mvpmcu-Prbdor Hx Past Med/Social Hx: Reviewed Nursing Past Med/Soc Hx, Reviewed and Corrections made Patient Social History Marrital Status: single Employed/Student: unemployed Alcohol Use: Regular Use Alcohol Beverage of Choice: Whiskey Recreational Drug Use: Yes Drug of Choice: DAILY MARIJUANA USE, METH USE, DENIES IV USE Smoking Status: Current Everyday Smoker Type Used: Cigarettes 2nd Hand Smoke Exposure: Yes Recent Hopitalizations: No Immunizations Up To Date Tetanus Booster (TDap): Less than 5yrs Date of Pneumonia Vaccine: June 20, 2013 Date of Influenza Vaccine: Jan 21, 2020 Seasonal Allergies Seasonal Allergies: No Past Medical History Surgeries: Angioplasty, Appendectomy, Cardiac, Coronary Stent, Eye Surgery, Orthopedic, Vascular Surgery Cardiac: Coronary Artery Disease, Heart Attack, High Cholesterol, Hypertension, Peripheral Vascular Neurological: Neuropathy, Stroke, TIA Reproductive: No Sexually Transmitted Disease: No HIV/AIDS: No Gastrointestinal: Hepatitis Musculoskeletal: Degenerate Disk Disease, Arthritis, Chronic Back Pain, Fractures Loss of Vision: Bilateral Hearing Impairment: Hard of Hearing Cancer: Skin Did You Recieve Any Treatments: Yes What Type of Treatment Did You: Surgical Intervention Psychosocial: Anxiety, Violent Behavior, Depression Skin/Integumentary: Recent Skin Changes History of Blood Disorders: No Adverse Reaction to Blood Parekh: No Family History Cancer 19 FATHER (SKIN) 19 MOTHER Cancer of colon 19 MOTHER Kidney disease 19 FATHER (PASSED KIDNEY FAILURE) SOCIAL HISTORY: -ETOH--OCCASIONAL USE, HX OF HEAVY USE -DRUGS--DAILY MARIJUANA USE, ALSO METH USE. DENIES IV DRUG USE -SMOKES 2 PPD PAST SURGICAL HISTORY: -LAST CARDIAC CATH DONE HERE IN 2013--PATENT STENTS -CARDIAC CATHS WITH STENTS X 3 -BILATERAL CAROTID ENDARTERECTOMY -RIGHT CAROTID STENT 01/21/20 AT -RIGHT EYE SURGERY CHILD -CERVICAL SPINE AND LUMBAR SPINE SURGERIES -LEFT FOOT FRACTURE/ ORIF -SKIN CANCER REMOVAL -APPENDECTOMY Occupation: Disabled PM&R Allergy/Meds/Data Review Allergies Coded Allergies: No Known Drug Allergies (Unverified , 03/13/18) Home Medications Scheduled Aspirin (Aspirin EC), 325 MG PO DAILY, (Reported) Atorvastatin Calcium (Atorvastatin Calcium), 80 MG PO HS, (Reported) Clopidogrel Bisulfate (Plavix), 75 MG PO DAILY, (Reported) Scheduled PRN Albuterol/Ipratropium (Combivent Respimat Inhal [place]), 1 PUFF IH QID PRN for SHORTNESS OF BREATH, (Reported) Baclofen (Baclofen), 10 MG PO TID PRN for MUSCLE SPASMS, (Reported) Budesonide/Formoterol Fumarate (Budesonide-Formoterol 80-4.5), 2 PUFF IH BID PRN for SHORTNESS OF BREATH, (Reported) Gabapentin (Neurontin), 900 MG PO TID PRN for PAIN-BREAKTHROUGH, (Reported) Discontinued Medications Metoprolol Tartrate (Metoprolol Tartrate), 25 MG PO BID, (Reported) Discontinued Reason: No Longer Taking Current Medications Current Medications Reviewed Review of Systems Constitutional: see HPI, malaise, weakness EENTM: no symptoms reported Respiratory: no symptoms reported Cardiovascular: no symptoms reported Gastrointestinal: no symptoms reported Genitourinary: no symptoms reported Musculoskeletal: no symptoms reported Skin: no symptoms reported Psychiatric/Neurological: Pre-Existing Deficit, Weakness All Other Systems Reviewed Negative Unless Noted: Yes Physical Exam Physical Exam Vital Signs Capillary Refill : Height, Weight, BMI Height: 6'1.00" Weight: 195lbs. 0oz. [id number]; 21.76 BMI Method:Actual General Appearance: No Apparent Distress, WD/WN, Chronically ill, Thin Eyes: Bilateral Eye Normal Inspection, Bilateral Eye PERRL HEENT: PERRL/EOMI, Normal ENT Inspection, Pharynx Normal Neck: Full Range of Motion, Normal Inspection, Non Tender, Supple, Carotid Bruit Respiratory: Chest Non Tender, Lungs Clear, Normal Breath Sounds, No Accessory Muscle Use, No Respiratory Distress Cardiovascular: Regular Rate, Rhythm, No Edema, No Gallop, No JVD, No Murmur, Normal Peripheral Pulses Gastrointestinal: Normal Bowel Sounds, No Organomegaly, No Pulsatile Mass, Non Tender, Soft Back: Normal Inspection, No CVA Tenderness, No Vertebral Tenderness Extremity: Normal Capillary Refill, Normal Inspection, Normal Range of Motion, Non Tender, No Calf Tenderness, No Pedal Edema Neurologic/Psychiatric: Alert, Oriented x3, Normal Mood/Affect, Motor Weakness (right sided weakness 3/5 leg and arm) Skin: Normal Color, Warm/Dry Lymphatic: No Adenopathy PM&R Medical Assessment & Plan REHAB/MEDICAL ASSESSMENT AND PLAN: REHAB IMPAIRMENT GROUP: CVA ETIOLOGIC DIAGNOSIS: CVA The comorbidities that impact the patients function and/or functional outcome by: meth use, left AMA in past, smoker, V-tach hx REHAB PLAN: The patient is being admitted to our comprehensive inpatient rehabilitation facility and can tolerate the intensity of service consisting of at least: 180 minutes of therapy a day, 5 out of 7 days a week Rehab treatment will consist of: PT OT will focus on regaining function of the right side and use AD in order to regain independence The patient/family has a good understanding of our discharge process and will benefit from an interdisciplinary inpatient rehabilitation program. The patient has potential to make improvement and is in need of at least two of the following multidisciplinary therapies including but not limited to physical, occupational, speech, and prosthetics and orthotics. Additionally the patient will need services from respiratory, nutritional services, wound care, psychology, etc. (Customize this to each patient). Given the patients complex condition and risk of further medical complications, rehabilitation services cannot be safely or effectively provided at a lower level of care such as a senior living facility. BARRIERS TO DISCHARGE: [place] ESTIMATED LOS: 10 days DISPOSITION: Home RELEVANT CHANGES SINCE PREADMISSION SCREENING: I have compared the patients medical and functional status at the time of the preadmission screening and there are: no changes PROGNOSIS: Fair REHABILITATION GOALS: 1. PT OT will focus on regaining function of the right side and use AD in order to regain independence All the above goals were reviewed with the patient and he/she is in agreement. By signing this document, I acknowledge that I have personally performed a full physical examination on this patient within 24 hours of admission to this inpatient rehabilitation facility and have determined the patient to be able to tolerate the above course of treatment at an intensive level for a reasonable period of time. I will be completing a detailed individualized Plan of Care for this patient by day #4 of the patients stay based upon the Preadmission Screen, the Post-Admission Evaluation, and the therapy evaluations. Admission Dx/Comorbidities: (1) CVA (cerebral vascular accident) Status: Acute ICD Codes: I63.9 - Cerebral infarction, unspecified (2) Methamphetamine abuse Status: Acute ICD Codes: F15.10 - Other stimulant abuse, uncomplicated (3) HLD (hyperlipidemia) Status: Chronic ICD Codes: E78.5 - Hyperlipidemia, unspecified (4) Carotid stenosis Status: Acute ICD Codes: I65.29 - Occlusion and stenosis of unspecified carotid artery (5) HTN (hypertension) Status: Acute ICD Codes: I10 - Essential (primary) hypertension (6) Cannabis abuse Status: Acute ICD Codes: F12.10 - Cannabis abuse, uncomplicated (7) Hemiparesis of right dominant side Status: Acute ICD Codes: G81.91 - Hemiplegia, unspecified affecting right dominant side (8) Very heavy cigarette smoker (40 or more per day) Status: Acute ICD Codes: F17.210 - Nicotine dependence, cigarettes, uncomplicated (9) Illicit drug use Status: Acute ICD Codes: F19.90 - Other psychoactive substance use, unspecified, uncomplicated (10) Hypertension ICD Codes: I10 - Essential (primary) hypertension (11) COPD (chronic obstructive pulmonary disease) ICD Codes: J44.9 - Chronic obstructive pulmonary disease, unspecified Assessment/Plan Assessment and Plan Assess & Plan/Chief Complaint Assessment: 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 05/03/20 Plan: IRF protocol Monitor closely Supportive care PRUDENCE BECK DO May 26, 2020 10:46
--- NOTE | 2020-05-26 11:56 | Physical Therapy Evaluation ---
PT Evaluation-General Medical Diagnosis Admission Date May 26, 2020 at 10:05 Medical Diagnosis: CVA Onset Date: May 23, 2020 Therapy Diagnosis Therapy Diagnosis: impaired mobility, right hemiparesis Height/Weight Height (Feet): 6 Height (Inches): 1.00 Weight (Pounds): 195 Weight (Ounces): 0 Precautions Precautions/Isolations: Fall Prevention, Standard Precautions Referral Physician: Debbie Pereira DO Reason for Referral: Evaluation/Treatment Medical History Pertinent Medical History: Alcoholism, CAD, COPD, CVA, HTN, [place], Neuropathy, PVD, Smoking Additional Medical History drug use Reviewed History: Yes Social History Home: Single Level Current Living Status: Alone Entry Into Home: Stairs With Railing PT Steps Into Home: 3 Prior Prior Level of Function SCALE: Activities may be completed with or without assistive devices. 7-Clujohoucd-iqqbqpc completes the activity by him/herself with no assistance from a helper. 5-Set-up or Clean-up Assistance-helper sets up or cleans up; patient completes a ctivity. [place] assists only prior to or following the activity. 4-Supervision or Touching Assistance-helper provides verbal cues and/or touching/steadying and/or contact guard assistance as patient completes activity. Assistance may be provided throughout the activity or intermittently. 3-Partial/Moderate Assistance-helper does LESS THAN HALF the effort. [place] lifts, holds or supports trunk or limbs, but provides less than half the effort. 2-Substantial/Maximal Assistance-helper does MORE THAN HALF the effort. [place] lifts or holds trunk or limbs and provides more than half the effort. 5-Nhfzytevi-axkrbr does ALL the effort. Patient does none of the effort to complete the activity. Or, the assistance of 2 or more helpers is required for the patient to complete the activity. If activity was not attempted, code reason: 7-Patient Refused. 9-Not Applicable-not attempted and the patient did not perform the activity before the current illness, exacerbation or injury. 10-Not Attempted due to Environmental Limitations-(lack of equipment, weather restraints, etc.). 88-Not Attempted due to Medical Conditions or Safety Concerns. Bed Mobility: 6 Transfers (B,C,W/C): 6 Gait: 6 Stairs: 6 Indoor Mobility (Ambulation): Independent Stairs: Independent Prior Devices Use: Walker PT Evaluation-Current Subjective Patient seated upright in chair pre tx. Patient did not have any pain complaints, but noted weakness in L LE. Patient consented to treatment. Pt/Family Goals Return to prior level of function Objective Patient Orientation: Person, Place, M[place] ROM/Strength ROM Lower Extremities WFL Strength Lower Extremities L LE: WNL R LE: (Hip flexion, 3+/5, Quad 3-/5, hamstrings 2/5, Dorsiflexion 0/5) Sensory Vision: Wears Glasses Hearing: Functional Sensation Right Lower Extremit: Impaired Sensation Left Lower Extremity: Intact Sensation Lower Extremities Patient notes numbness in R LE, notes "it just feels " but still seems to have light touch sensation Transfers Roll Left & Right (QC): 3 (min) Sit to Lying (QC): 3 (min) Lying to Sitting/Side of Bed(Q: 3 (min) Sit to Stand (QC): 3 (min) Chair/Qmu-lv-Kdcin Xfer(QC): 3 (mod) Toilet Transfer (QC): 3 (mod) Car Transfer (QC): 3 (mod) Patient needs cues for safety and hand placement and positioning. Gait Does the Patient Walk?: Yes Mode of Locomotion: Both Anticipated Mode of Locomotion: Walk Walk 10 feet (QC): 88 (mod) Walk 50 ft with 2 Turns(QC): 88 Walk 150 ft (QC): 88 Walking 10ft/uneven surface-QC: 88 Distance: 6' x3 Gait Assistive Device: Parallel Bars Comments/Gait Description Patient relies heavily on L LE and UE to maintain stability. Patient swings R LE forward using momentum, but lacks control with leg and foot placement, which results in a narrow, scissor gait. Wheelchair Training Wheel 50 ft with 2 turns (QC): 4 Wheel 150 ft (QC): 4 Type of Wheelchair: Manual CGA. Patient has trouble navigating turns with objects on R side, patient seem to have some mild right neglect Stairs 1 Step (curb) (QC): 88 4 Steps (QC): 88 12 Steps (QC): 88 Balance Sitting Static: Fair Sitting Dynamic: Fair Standing Static: Poor Standing Dynamic: Poor Picking up an Object (QC): 88 Special Test Comments CN testing: peripheral vision, facial droop, and H test performed, all WNL Babinski, Aggarwal's Reflex: Negative Treatment LE strengthening/muscle activation, functional mobility, transfers Assessment/Needs Patient has impaired mobility, strength, endurance, right hemiparesis. Patient in recliner post tx with nurse call, phone, tray, chair alarm on, all needs met. Patient needs min/mod assist for transfers and cues for safety and positioning. Rehab Potential: Fair PT Short Term Goals Short Term Goals Time Frame: Jun 02, 2020 Roll Left & Right: 4 (SBA) Sit to lyin (SBA) Lying to sitting on side of be: 4 (SBA) Sit to stand: 4 (CGA) Chair/oqc-io-gmwpx transfer: 4 (min) Toilet transfer: 4 (min) Car transfer: 4 (min) Walk 10 feet: 4 (min) Walk 50 feet with two turns: 4 (min) 1 step (curb): 4 (CGA) Wheel 50ft w/2 turns: 4 Wheel 150 feet: 4 PT Fdc Goals Fdc Goals PT Cotton Picker Goals Time Frame: Jun 16, 2020 Roll Left & Right (QC): 5 Sit to Lying (QC): 5 Lying-Sitting on Side/Bed(QC): 5 Sit to Stand (QC): 5 Chair/Ury-wt-Amwya Xfer(QC): 4 (CGA) Toilet Transfer (QC): 4 (CGA) Car Transfer (QC): 4 (CGA) Does the Patient Walk: Yes Walk 10 feet (QC): 4 (CGA) Walk 50ft with 2 Turns (QC): 4 (CGA) Walk 150 ft (QC): 4 (CGA) Walking 10ft on Uneven Surface: 4 (CGA) 1 Step (curb) (QC): 4 (CGA) 4 Steps (QC): 4 (CGA) 12 Steps (QC): 88 Picking up an Object (QC): 4 (CGA) Does the Pt use WC or Scooter?: Yes Wheel 50 feet with 2 turns (QC: 6 Type: Manual Wheel 150 feet: 6 Type: Manual PT Plan Problem List Problem List: Activity Tolerance, Functional Strength, Safety, Balance, Gait, Transfer, Bed Mobility, ROM Treatment/Plan Treatment Plan: Continue Plan of Care Treatment Plan: Bed Mobility, Education, Functional Activity Dutch, Functional Strength, Group Therapy, Gait, Safety, Therapeutic Exercise, Transfers Treatment Duration: Jun 16, 2020 Frequency: At least 5 of 7 days/Wk (IRF) Estimated Hrs Per Day: 1.5 hours per day Patient and/or Family Agrees t: Yes Safety Risks/Education Patient Education: Gait Training, Transfer Techniques, Correct Positioning, W/C Management, Safety Issues Teaching Recipient: Patient Teaching Methods: Demonstration, Discussion Response to Teaching: Verbalize Understanding, Return Demonstration, Reinforcement Needed Discharge Recommendations Plan Patient will perform bed mobility and transfer training, balance and endurance training, functional strengthening, stair training, gait training, and education, to improve functional mobility and independence at home. Therapy Discharge Recommendati: 24 Hour Supervision Time/GCodes Time In: 1100 Time Out: 1200 Total Billed Treatment Time: 60 Total Billed Treatment 1 visit: EVM : 30' EX x2: 30' IAN PETTY PT May 26, 2020 11:55
--- NOTE | 2020-05-26 13:31 | Occupational Therapy Eval ---
OT Evaluation-General/PLF Medical Diagnosis Admission Date May 26, 2020 at 10:05 Medical Diagnosis: Right sided weakness Onset Date: May 23, 2020 Therapy Diagnosis Therapy Diagnosis: Decreased ADL skills Height/Weight Height (Feet): 6 Height (Inches): 1.00 Weight (Pounds): 195 Weight (Ounces): 0 Precautions Precautions/Isolations: Fall Prevention, Standard Precautions Weight Bear Status Weight Bearing Restriction: Weight Bearing/Tolerated Referral Physician: Dr. Pereira Referral Reason: Activity Tolerance, Self Care, Evaluation/Treatment, Strength ening/ROM Medical History Pertinent Medical History: Alcoholism, CAD, COPD, CVA, HTN, [place], Neuropathy, PVD, Smoking Additional Medical History Meth use Current History Pt. was pt. in inpt. rehab several weeks ago due to CVA. Pt. left AMA. Has now returned due to continued right sided weakness. Reviewed History: Yes Social History Home: Single Level Current Living Status: Alone Entry Into Home: Stairs With Railing Steps Into Home: 4 ADL-Prior Level of Function SCALE: Activities may be completed with or without assistive devices. 2-Vidvvgjnrr-avxdipo completes the activity by him/herself with no assistance from a helper. 5-Set-up or Clean-up Assistance-helper sets up or cleans up; patient completes activity. [place] assists only prior to or following the activity. 4-Supervision or Touching Assistance-helper provides verbal cues and/or touching/steadying and/or contact guard assistance as patient completes activity. Assistance may be provided throughout the activity or intermittently. 3-Partial/Moderate Assistance-helper does LESS THAN HALF the effort. [place] lifts, holds or supports trunk or limbs, but provides less than half the effort. 2-Substantial/Maximal Assistance-helper does MORE THAN HALF the effort. [place] lifts or holds trunk or limbs and provides more than half the effort. 8-Nngxrzcbw-hvgejm does ALL the effort. Patient does none of the effort to complete the activity. Or, the assistance of 2 or more helpers is required for the patient to complete the activity. If activity was not attempted, code reason: 7-Patient Refused. 9-Not Applicable-not attempted and the patient did not perform the activity before the current illness, exacerbation or injury. 10-Not Attempted due to Environmental Limitations-(lack of equipment, weather restraints, etc.). 88-Not Attempted due to Medical Conditions or Safety Concerns. ADL PLOF Comments Pt. was able to bathe/dress self per him after discharging home last time. He had roommates but they have moved out. Self Care: Unknown Functional Cognition: Unknown DME/Equipment: Bath Bench, Tub/Shower DME/Equipment Comments Pt. has a tub transfer bench that his daughter bought him, and also has a walker. OT Current Status Subjective No pain reported. Mental Status/Objective Patient Orientation: Person, Place Attachments: IV Current Hand Dominance: Right Pt. has full AROM in left UE. In right UE, he is able to make fist and wiggle fingers. With increased concentration, he was able to extend right wrist twice, and shrug right shoulder. He was unable to actively move them at any other time. Pt. did tolerate PROM to shoulder and elbow in all planes. PROM WFL. Very slight subluxation noted but no pain. ADL-Treatment Eating (QC): 5 Oral Hygiene (QC): 88 (No teeth.) Shower/Bathe Self (QC): 2 (Max assist overall. Pt. requires assistance to wash under bilateral arms, rear lina area while leaning over in shower, and bilateral LE and feet.) Upper Body Dressing (QC): 88 (No clothing available.) Lower Body Dressing (QC): 88 On/Off Footwear (QC): 2 (Pt. bends over to attempt slipper socks, but is unable to don them.) Toileting Hygiene (QC): 2 (Pt. had been incontinent of urine in bed before OT transerred him, when attempting to use the urinal.) Other Treatments Pt. seen for OT evaluation. Pt. transfers supine-sit with min assist for balance. With cues, pt. able to scoot to EOB. He is able to reach for wheelchair with left hand, and stand pivot with mod assistance. Once pt. is taken to rehab, he agrees to shower. OT assisted pt. in shower. Pt. able to lean to side so OT could cleanse rear lina area. After shower, pt. transferred back to wheelchair with mod assist. Pt. taken to therapy gym and OT completed right UE AROM/PROM in all planes. Tolerated well. PT came in and took over treatment. Education OT Patient Education: Correct positioning, Exercise program, Modified ADL techniques, Progress toward Goal/Update tx plan, Purpose of tx/functional activities, Reviewed precautions, Rehab process, Transfer techniques Teaching Recipient: Patient Teaching Methods: Demonstration, Discussion Response to Teaching: Verbalize Understanding, Return Demonstration OT Short Term Goals Short Term Goals Time Frame: Jun 02, 2020 Eatin Oral hygiene: 88 Toileting hygiene: 3 Shower/bathe self: 3 Upper body dressin Lower body dressin Putting on/taking off footwear: 3 OT Residential Goals Contract Serviceman Goals Time Frame: Jun 16, 2020 Eating (QC): 6 Oral Hygiene (QC): 88 Toileting Hygiene (QC): 6 Shower/Bathe Self (QC): 4 Upper Body Dressing (QC): 6 Lower Body Dressing (QC): 6 On/Off Footwear (QC): 6 Additional Goals: 1-Demonstrate ADL Tasks, 2-Verbalize Understanding, 3- ImproveStrength/Dutch 1=Demonstrate adherence to instructed precautions during ADL tasks. 2=Patient will verbalize/demonstrate understanding of assistive devices/modifications for ADL. 3=Patient will improve strength/tolerance for activity to enable patient to perform ADL's. OT Education/Plan Problem List/Assessment Assessment: Decreased Activ Tolerance, Decreased UE Strength, Dependent Transfers, Impaired Coordination, Impaired Funct Balance, Impaired I ADL's, Impaired Self-Care Skills, Restricted Funct UE ROM Discharge Recommendations Plan/Recommendations: Continue POC Therapy Discharge Recommendati: Post Acute OT Treatment Plan/Plan of Care Treatment,Training & Education: Yes Patient would benefit from OT for education, treatment and training to promote independence in ADL's, mobility, safety and/or upper extremity function for ADL's. Plan of Care: ADL Retraining, Functional Mobility, Group Exercise/Act as Ind, UE Funct Exercise/Act Treatment Duration: Jun 16, 2020 Frequency: At least 5 of 7 days/Wk (IRF) Estimated Hrs Per Day: 1.5 hours per day Agreement: Yes Rehab Potential: Fair Time/GCodes Start Time: 10:05 Stop Time: 11:00 Total Time Billed (hr/min): 55 Billed Treatment Time 1, EVH x 10minutes, ADL x 45minutes GILBERTO SOTO OT May 26, 2020 13:31
--- NOTE | 2020-05-26 14:01 | Occupational Ther Daily Note ---
OT Current Status-Daily Note Subjective Pt AxO, agrees to tx. Denies pain currently. On phone start of session, sets aside without cues when OT states time to work with OT. Pt agrees to gym time, denying ADLs. When OT asks if pt understands what is causing strokes, pt states, "Meth use." Pt and OT discuss his recreational drug choice. Pt states, "I'm not even addicted, I just use it recreationally." Pt states someone typically delivers to home. Pt is encouraged to delete all phone numbers to anyone who has access to drugs to decrease likelihood of use at home. Pt expresses he doesn't know what he does for fun at home. OT to deliver Interest Checklist post session to discover different hobbies/ interests pt may have post d/c. Mental Status/Objective Patient Orientation: Person, Place, Situation ADL-Treatment Therapy Code Descriptions/Definitions Functional [place] Measure: 0=Not Assessed/NA 4=Minimal Assistance 1=Total Assistance 5=Supervision or Setup 2=Maximal Assistance 6=Modified [place] 3=Moderate Assistance 7=Complete IndependenceSCALE: Activities may be completed with or without assistive devices. 8-Djfyznlxaz-jybuoes completes the activity by him/herself with no assistance from a helper. 5-Set-up or Clean-up Assistance-helper sets up or cleans up; patient completes activity. [place] assists only prior to or following the activity. 4-Supervision or Touching Assistance-helper provides verbal cues and/or touching/steadying and/or contact guard assistance as patient completes activity. Assistance may be provided throughout the activity or intermittently. 3-Partial/Moderate Assistance-helper does LESS THAN HALF the effort. [place] lifts, holds or supports trunk or limbs, but provides less than half the effort. 2-Substantial/Maximal Assistance-helper does MORE THAN HALF the effort. [place] lifts or holds trunk or limbs and provides more than half the effort. 6-Owxnwnlxs-byuqzf does ALL the effort. Patient does none of the effort to complete the activity. Or, the assistance of 2 or more helpers is required for the patient to complete the activity. If activity was not attempted, code reason: 7-Patient Refused. 9-Not Applicable-not attempted and the patient did not perform the activity be fore the current illness, exacerbation or injury. 10-Not Attempted due to Environmental Limitations-(lack of equipment, weather restraints, etc.). 88-Not Attempted due to Medical Conditions or Safety Concerns. Other Treatment Bed mob with SBA from supine to sit. SPT to w/c placed on L side with CGA. Pt able to propel chair with minimal cues/ multiple times hitting R foot on objects/ doorways. Pt able to self correct once this is hit. Pt completes RUE exercises on heightened mat/ decreased friction surface. Pt begins with R hand activity, able to extend/ flex hand. Pt completes ab/ adduction of fingers. Therapy sponge (green) given to pt to continue strengthening while in room. Encouraged to complete wrist flex/ ext, must complete in gravity neutral plane due to decreased ability to complete against gravity. Pt unable to complete pro/ supination. Pt complete elbow flexion/ extension to ~1/3 range, PROM to full range. Pt completes food tester strength testing (rapid exchange): with R: 15, 18, 22, 18, 20 and L: 85, 80, 74, 56, 62. Avg: R: 18.6 lbs, L: 73.2 lbs and difference of 54.6 lbs in total. Pt requires OT to stabilize forearm in neutral during food tester strength testing on RUE. Pt is educated on difference. Pushed back to room. SPT with mod A to weak side and mod A assist to supine (RLE). Pt left in bed with all needs met, call light in reach. PSYCHIATRIC TECH to enter shortly after OT. Education OT Patient Education: Correct positioning, Disease process, Exercise program, Home exercise program, Progress toward Goal/Update tx plan, Purpose of tx/functional activities, Safety issues, Transfer techniques Teaching Recipient: Patient Teaching Methods: Demonstration, Discussion Response to Teaching: Verbalize Understanding, Return Demonstration, Reinforcement Needed OT Short Term Goals Short Term Goals Time Frame: Jun 02, 2020 Eatin Oral hygiene: 88 Toileting hygiene: 3 Shower/bathe self: 3 Upper body dressin Lower body dressin Putting on/taking off footwear: 3 OT Drier Unloader Goals Drier Unloader Goals Time Frame: Jun 16, 2020 Eating (QC): 6 Oral Hygiene (QC): 88 Toileting Hygiene (QC): 6 Shower/Bathe Self (QC): 4 Upper Body Dressing (QC): 6 Lower Body Dressing (QC): 6 On/Off Footwear (QC): 6 Additional Goals: 1-Demonstrate ADL Tasks, 2-Verbalize Understanding, 3- ImproveStrength/Dutch 1=Demonstrate adherence to instructed precautions during ADL tasks. 2=Patient will verbalize/demonstrate understanding of assistive devices/modifications for ADL. 3=Patient will improve strength/tolerance for activity to enable patient to perform ADL's. OT Education/Plan Problem List/Assessment Assessment: Decreased Activ Tolerance, Decreased UE Strength, Dependent Transfers, Impaired Bed Mobility, Impaired Coordination, Impaired Funct Balance, Impaired I ADL's, Impaired Self-Care Skills, Restricted Funct UE ROM Discharge Recommendations Plan/Recommendations: Continue POC Therapy Discharge Recommendati: Scheduled Assistance, Bath Aide, Home & Family, Post Acute OT Treatment Plan/Plan of Care Treatment,Training & Education: Yes Patient would benefit from OT for education, treatment and training to promote independence in ADL's, mobility, safety and/or upper extremity function for ADL's. Plan of Care: ADL Retraining, Functional Mobility, Group Exercise/Act as Ind, UE Funct Exercise/Act Treatment Duration: Jun 16, 2020 Frequency: At least 5 of 7 days/Wk (IRF) Estimated Hrs Per Day: 1.5 hours per day Agreement: Yes Rehab Potential: Fair Time/GCodes Start Time: 13:10 Stop Time: 13:40 Total Time Billed (hr/min): 30 Billed Treatment Time 1, EX 2 (30) GERA VALIENTE OTR May 26, 2020 14:00
--- NOTE | 2020-05-26 14:04 | ST Cognitive Linguistic Eval ---
Speech Evaluation-General Medical Diagnosis Right sided weakness Onset Date: May 23, 2020 Therapy Diagnosis Therapy Diagnosis: Cognitive Communication Precautions Precautions/Isolations: Fall Prevention, Standard Precautions Referral Referring Physician: Dr. Pereira Medical History Pertinent Medical History: Alcoholism, CAD, COPD, CVA, HTN, [place], Neuropathy, PVD, Smoking Reviewed History: Yes Social History Current Living Status: Alone Speech PLF-Current Status Prior Level of Function Patient lives at home. Known to clinician from previous admits. Patient was independent with daily needs. Subjective Patient was cooperative with the cognitive assessment. Language Eval: Auditory Comprehends Simple Yes/No Ques: Functional Indent/Objects Multiple [place]: Functional Ident/Pics in Multiple [place]: Functional Follows 1-Step Commands: Functional Follows Complex Directions: Functional Follows General Conversations: Functional Language Eval: Verbal Language Completes Spontaneous Greeting: Functional Produces Auto, Serial Info: Functional Imitates Simple Words/Phrases: Functional Word Finding: Functional Requests Basic Needs: Functional States Basic Personal Info: Functional Expresses Complex Ideas: Functional Objective Cognitive Domain Attention: WNL Memory: WNL Problem Solving: Functional Executive Functions: WNL Visuospatial Skills: WNL Composite Severity Rating: WNL Clock Drawing Severity Rating: WNL Objective Formal/Standardized Tests [facility] Mental Status (UMS) Results 27/30 within normal range of function Oral Motor/Speech Production Within normal limits. Impression Patient is a 65 y/o male admitted to ARU s/p third CVA. Patient was given the SLUMS at bedside with a score of 27/30 obtained. Patient's score is within normal range of function. No further ST services indicated at this time. Speech Patient Assess Expression of Ideas/Wants: Expression (4) Understanding Verbal Content: Understands (4) Brief Interview-Mental Status: Yes Repetition of Three Words: Three (3) Temporal Orientation: Year: Correct (3) Temporal Orientation: Month: Accurate within 5 days(2) Temporal Orientation: Day: Correct (1) Recall : Wear to say "Sock": Yes,after cueing (1) Recall : Color: Yes, after cueing (1) Recall : Bed: Yes,after cueing (1) Memory/Recall Ability: Current season, That he or she is in a hsp/hsp unit Speech-Plan Patient/Family Goals Patient/Family Goals: Patient plans to return home upon discharge. Treatment Plan Speech Therapy Treatment Plan: Discontinue ST Treatment Duration: May 26, 2020 Frequency: 1 time per week Estimated Hrs Per Day: .25 hour per day Rehab Potential: Fair Barriers to Learninrd CVA Pt/Family Agrees to Plan: Yes Safety Risks/Education Teaching Recipient: Patient Teaching Methods: Discussion Response to Teaching: Verbalize Understanding Education Topics Provided: safety and communication Time Speech Therapy Time In: 13:45 Speech Therapy Time Out: 14:00 Total Billed Time: 15 Billed Treatment Time 1, SPSNDSCOMP GONZALES Cuellar May 26, 2020 14:04
--- NOTE | 2020-05-26 14:45 | Physical Therapy Daily Note ---
PT Daily Note-Current Subjective Patient reports no pain during treatment, was supine in bed pre tx, and consented to therapy. Appearance Patient left seated on toilet, with all needs met, with call button within reach and instructions to call nurse when finished, and to not attempt getting off toilet without assistance. Nursing notified that patient is on toilet. Mental Status Patient Orientation: Person, Place, [place] Transfers SCALE: Activities may be completed with or without assistive devices. 8-Ecvobreqfl-qrauyfb completes the activity by him/herself with no assistance from a helper. 5-Set-up or Clean-up Assistance-helper sets up or cleans up; patient completes activity. [place] assists only prior to or following the activity. 4-Supervision or Touching Assistance-helper provides verbal cues and/or touching/steadying and/or contact guard assistance as patient completes activit y. Assistance may be provided throughout the activity or intermittently. 3-Partial/Moderate Assistance-helper does LESS THAN HALF the effort. [place] lifts, holds or supports trunk or limbs, but provides less than half the effort. 2-Substantial/Maximal Assistance-helper does MORE THAN HALF the effort. [place] lifts or holds trunk or limbs and provides more than half the effort. 9-Fghwikqqe-nwrvmu does ALL the effort. Patient does none of the effort to complete the activity. Or, the assistance of 2 or more helpers is required for the patient to complete the activity. If activity was not attempted, code reason: 7-Patient Refused. 9-Not Applicable-not attempted and the patient did not perform the activity before the current illness, exacerbation or injury. 10-Not Attempted due to Environmental Limitations-(lack of equipment, weather restraints, etc.). 88-Not Attempted due to Medical Conditions or Safety Concerns. Roll Left & Right (QC): 4 (CGA) Lying to Sitting/Side of Bed(Q: 3 (min) Sit to Stand (QC): 3 (mod) Toilet Transfer (QC): 3 (mod) Wheelchair Training Does the Pt Use a Wheelchair?: Yes Wheel 50 ft with 2 turns (QC): 4 (SBA) Wheel 150 ft (QC): 4 (SBA) Type of Wheelchair: Manual Patient has tendency to veer right with wheelchair, but is able to manage mobility using only L UE and LE. 80' Treatments transfers, wheelchair mobility Assessment Current Status: Fair Progress Patient will benefit from continued intervention with transfers and wheelchair mobility to optimize patient safety and functional independence with return home. PT Short Term Goals Short Term Goals Time Frame: Jun 02, 2020 Roll Left & Right: 4 (SBA) Sit to lyin (SBA) Lying to sitting on side of be: 4 (SBA) Sit to stand: 4 (CGA) Chair/hzg-pu-nygiq transfer: 4 (min) Toilet transfer: 4 (min) Car transfer: 4 (min) Walk 10 feet: 4 (min) Walk 50 feet with two turns: 4 (min) 1 step (curb): 4 (CGA) Wheel 50ft w/2 turns: 4 Wheel 150 feet: 4 PT Long-Term Goals Long-Term Goals PT Insurance Verification Clerk Goals Time Frame: Jun 16, 2020 Roll Left & Right (QC): 5 Sit to Lying (QC): 5 Lying-Sitting on Side/Bed(QC): 5 Sit to Stand (QC): 5 Chair/Tjf-jo-Pskxg Xfer(QC): 4 (CGA) Toilet Transfer (QC): 4 (CGA) Car Transfer (QC): 4 (CGA) Does the Patient Walk: Yes Walk 10 feet (QC): 4 (CGA) Walk 50ft with 2 Turns (QC): 4 (CGA) Walk 150 ft (QC): 4 (CGA) Walking 10ft on Uneven Surface: 4 (CGA) 1 Step (curb) (QC): 4 (CGA) 4 Steps (QC): 4 (CGA) 12 Steps (QC): 88 Picking up an Object (QC): 4 (CGA) Does the Pt use WC or Scooter?: Yes Wheel 50 feet with 2 turns (QC: 6 Type: Manual Wheel 150 feet: 6 Type: Manual PT Plan Problem List Problem List: Activity Tolerance, Functional Strength, Safety, Balance, Gait, Transfer, Bed Mobility, ROM Treatment/Plan Treatment Plan: Continue Plan of Care Treatment Plan: Bed Mobility, Education, Functional Activity Dutch, Functional Strength, Group Therapy, Gait, Safety, Therapeutic Exercise, Transfers Treatment Duration: Jun 16, 2020 Frequency: At least 5 of 7 days/Wk (IRF) Estimated Hrs Per Day: 1.5 hours per day Patient and/or Family Agrees t: Yes Safety Risks/Education Patient Education: Transfer Techniques, Correct Positioning, W/C Management, Safety Issues Teaching Recipient: Patient Teaching Methods: Demonstration, Discussion Response to Teaching: Verbalize Understanding, Return Demonstration, Reinforcement Needed Time/GCodes Time In: 1420 Time Out: 1435 Total Billed Treatment Time: 15 Total Billed Treatment 1 visit: FA: IAN CANNON PT May 26, 2020 14:45
[2020-05-26 16:24] VITALS: BP 126/68
[2020-05-26] MEDS ORDERED: CATHETER FLUSH 10 ML SYR IV PRN (16:45)
[2020-05-26] MEDS: DOCUSATE SODIUM 100 MG (COLACE) CAP PO SCH (21:14)
[2020-05-26] MEDS: SENNA W/DOCUSATE (SENOKOT S) TABLET PO SCH (21:14)
[2020-05-26] MEDS: MELATONIN 3 MG TABLET PO PRN (21:14)
[2020-05-26] MEDS: CATHETER FLUSH 10 ML SYR IV SCH (21:15)
[2020-05-26] MEDS: polyethylene glycoL POWDER 17 GM (MIRALAX) PACK PO SCH ×2 (21:15→21:17)
[2020-05-26] MEDS: GABAPENTIN 300 MG (NEURONTIN) CAP PO PRN (21:23)
[2020-05-27 04:33] LABS: BASOPHILS # (AUTO) 0.1 10^3/uL (0.0-0.1); BASOPHILS % (AUTO) 1 % (0-10); EOSINOPHILS # (AUTO) 1.3 10^3/uL (0.0-0.3); EOSINOPHILS % (AUTO) 12 % (0-10); HEMATOCRIT 40 % (40-54); HEMOGLOBIN 12.9 g/dL (13.3-17.7); LYMPHOCYTES # (AUTO) 2.1 10^3/uL (1.0-4.0); LYMPHOCYTES % (AUTO) 20 % (12-44); MEAN CORPUSCULAR HEMOGLOBIN 29 pg (25-34); MEAN CORPUSCULAR HGB CONC 32 g/dL (32-36); MEAN CORPUSCULAR VOLUME 89 fL (80-99); MEAN PLATELET VOLUME 10.6 fL (9.0-12.2); MONOCYTES % (AUTO) 9 % (0-12); NEUTROPHILS # (AUTO) 6.3 10^3/uL (1.8-7.8); NEUTROPHILS % (AUTO) 58 % (42-75); PLATELET COUNT 199 10^3/uL (130-400); WHITE BLOOD COUNT 10.8 10^3/uL (4.3-11.0)
[2020-05-27 04:45] LABS: ALBUMIN 3.3 GM/DL (3.2-4.5)
[2020-05-27 04:46] LABS: CHLORIDE 102 MMOL/L (98-107); POTASSIUM 3.8 MMOL/L (3.6-5.0); SODIUM 138 MMOL/L (135-145)
[2020-05-27 04:47] LABS: CALCIUM 9.3 MG/DL (8.5-10.1)
[2020-05-27 04:48] LABS: GLUCOSE 111 MG/DL (70-105); TOTAL PROTEIN 6.2 GM/DL (6.4-8.2)
[2020-05-27 04:49] LABS: CARBON DIOXIDE 24 MMOL/L (21-32)
[2020-05-27 04:50] LABS: BILIRUBIN,TOTAL 0.8 MG/DL (0.1-1.0)
[2020-05-27 04:51] LABS: ALKALINE PHOSPHATASE 64 U/L (40-136)
[2020-05-27 04:52] LABS: CREATININE SERUM 0.81 MG/DL (0.60-1.30); GFR ESTIMATED > 60
[2020-05-27 04:53] LABS: BUN/CREATININE RATIO 12
[2020-05-27 04:55] LABS: ALANINE AMINOTRANSFERASE 10 U/L (0-55)
[2020-05-27 05:58] VITALS: BP 157/73
[2020-05-27] MEDS: CATHETER FLUSH 10 ML SYR IV SCH ×3 (06:32→21:10)
[2020-05-27] MEDS: UMECLIDINIUM BROMIDE (INCRUSE ELLIPTA) 7'S IH PRN (06:57)
[2020-05-27] MEDS: polyethylene glycoL POWDER 17 GM (MIRALAX) PACK PO SCH ×2 (07:32→20:07)
--- NOTE | 2020-05-27 08:33 | Cardiology Progress Note ---
Subjective Date Seen by Provider: May 27, 2020 Time Seen by Provider: 08:32 Subjective/Events-last exam Patient is with PT, continues to have right hemiparesis. Denies any chest pain or palpitations. Objective-Cardiology Exam Last Set of Vital Signs Vital Signs 05/28/20 05/28/20 05:02 09:20 Temp 37.0 Pulse 62 Resp 20 B/P (MAP) 129/61 (83) Pulse Ox 95 O2 Delivery Room Air Capillary Refill : I&O Intake and Output 05/28/20 00:00 Intake Total 1100 ml Output Total 2001 ml Balance -901 ml Intake Oral 1100 ml Output Urine Total 2000 ml Stool Total 1 ml # Voids 2 # Bowel Movements 2 General: Alert, Oriented X3, Cooperative HEENT: Atraumatic, PERRLA Neck: Supple, No JVD, No Thyromegaly Lungs: Clear to Auscultation, Normal Air Movement Heart: Regular Rate, Normal S1, Normal S2 Abdomen: Soft, No Tenderness Extremities: No Clubbing, No Edema Skin: No Rashes, No Significant Lesion Neuro: Normal Speech, Other (right sided hemiparesis) Results Lab A/P-Cardiology Admission Diagnosis CVA CAD HTN HLP Assessment/Plan Recurrent CVA d/t Carotid artery stenosis, had a stroke in December 2019 resulted in right-sided weakness, had left-sided weakness on this admission. He had history of carotid stenting at [facility] in January 2020 after the first stroke, he is known to have complete occlusion of the left common and internal carotid arteries, stent of the right carotid artery. Most recent CTA head done 05/23/20 showing internal thrombus within the right internal carotid artery stent which is slightly less prominent than on the prior examination. [facility] neurology consulted and recommend continuation of ASA and Plavix. Does not warrant intervention at this time. Coronary artery disease, history of cardiac catheterization in 2013 showing patent stents in the proximal LAD, known to have Promus element 2.75 by 16mm placed in July 2012, the proximal stent is Premier 3 x 16 placed in June 2013, had 50-60 percent mid LAD stenosis, clinically stable, continue to monitor. Maintained on ASA and Plavix. Hypertension, controlled, continue to monitor. Hyperlipidemia, monitor lipids Tobaccoism, educated on smoking cessation H/O marijuana and heavy EtOH use Methamphetamine abuse; (+) this admission H/O hepatitis C followed at the [facility] COPD Chronically abnormal EKG that shows LVH with repolarization abnormalities Patient was seen and evaluated with Ebony, examination performed, management plan was discussed, agree with the current scribed note, I made few changes to the note using Italic font Patient was seen and evaluated, no change in condition Starting physical therapy EBONY WARREN May 27, 2020 08:33 DEMETRIO ALVAREZ MD May 28, 2020 12:38
--- NOTE | 2020-05-27 08:41 | PM&R Progress Note ---
Subjective HPI/CC On Admission Date Seen by Provider: May 27, 2020 Time Seen by Provider: 08:45 Subjective/Events-last exam 05/27/20: Pt doing a lot better Slept in today Working with therapy Right-sided weakness is significant Will work through things as they come Hopefully wont leave AMA this time Review of Systems General: Fatigue, Malaise Neurological: Weakness, Incoordination Objective Exam Vital Signs Vital Signs Date Time Temp Pulse Resp B/P (MAP) Pulse Ox O2 Delivery O2 Flow Rate FiO2 05/27/20 18:50 Room Air 05/27/20 18:00 36.4 64 20 152/80 (104) 97 Capillary Refill : General Appearance: No Apparent Distress, WD/WN, Chronically ill, Thin HEENT: PERRL/EOMI, Normal ENT Inspection, Pharynx Normal Neck: Full Range of Motion, Normal Inspection, Non Tender, Supple, Carotid Bruit Respiratory: Chest Non Tender, Lungs Clear, Normal Breath Sounds, No Accessory Muscle Use, No Respiratory Distress Cardiovascular: Regular Rate, Rhythm, No Edema, No Gallop, No JVD, No Murmur, Normal Peripheral Pulses Gastrointestinal: Normal Bowel Sounds, No Organomegaly, No Pulsatile Mass, Non Tender, Soft Back: Normal Inspection, No CVA Tenderness, No Vertebral Tenderness Extremity: Normal Capillary Refill, Normal Inspection, Normal Range of Motion, Non Tender, No Calf Tenderness, No Pedal Edema Neurologic/Psychiatric: Alert, Oriented x3, Normal Mood/Affect, Motor Weakness (right sided weakness 3/5 leg and arm) Skin: Normal Color, Warm/Dry Lymphatic: No Adenopathy Results/Procedures Lab Laboratory Tests 05/27/20 04:15 Patient resulted labs reviewed. FIM Transfers Therapy Code Descriptions/Definitions Functional [place] Measure: 0=Not Assessed/NA 4=Minimal Assistance 1=Total Assistance 5=Supervision or Setup 2=Maximal Assistance 6=Modified [place] 3=Moderate Assistance 7=Complete IndependenceSCALE: Activities may be completed with or without assistive devices. 0-Kgphubnujc-rbjwkiu completes the activity by him/herself with no assistance from a helper. 5-Set-up or Clean-up Assistance-helper sets up or cleans up; patient completes activity. [place] assists only prior to or following the activity. 4-Supervision or Touching Assistance-helper provides verbal cues and/or touching/steadying and/or contact guard assistance as patient completes activity. Assistance may be provided throughout the activity or intermittently. 3-Partial/Moderate Assistance-helper does LESS THAN HALF the effort. [place] lifts, holds or supports trunk or limbs, but provides less than half the effort. 2-Substantial/Maximal Assistance-helper does MORE THAN HALF the effort. [place] lifts or holds trunk or limbs and provides more than half the effort. 7-Kxfmkscrg-pwzbiu does ALL the effort. Patient does none of the effort to complete the activity. Or, the assistance of 2 or more helpers is required for the patient to complete the activity. If activity was not attempted, code reason: 7-Patient Refused. 9-Not Applicable-not attempted and the patient did not perform the activity before the current illness, exacerbation or injury. 10-Not Attempted due to Environmental Limitations-(lack of equipment, weather restraints, etc.). 88-Not Attempted due to Medical Conditions or Safety Concerns. Roll Left to Right (QC): 4 (CGA) Sit to Stand (QC): 3 (mod) Chair/Zxy-fb-Koqge Xfer(QC): 3 (mod) Car Transfer (QC): 3 (mod) Gait Training Does the Patient Walk?: Yes Walk 10 feet (QC): 88 (mod) Walk 50 ft with 2 Turns(QC): 88 Walk 150 ft (QC): 88 Walking 10ft/uneven surface-QC: 88 Gait Assistive Device: Parallel Bars Wheelchair Training Does the Pt Use a Wheelchair?: Yes Wheel 50 ft with 2 turns (QC): 4 (SBA) Wheel 150 ft (QC): 4 (SBA) Type of Wheelchair: Manual Stair Training 1 Step (curb) (QC): 88 4 Steps (QC): 88 12 Steps (QC): 88 Balance Picking up an Object (QC): 88 ADL-Treatment Eating (QC): 5 Oral Hygiene (QC): 88 (No teeth.) Shower/Bathe Self (QC): 2 (Max assist overall. Pt. requires assistance to wash under bilateral arms, rear lina area while leaning over in shower, and bilateral LE and feet.) Upper Body Dressing (QC): 88 (No clothing available.) Lower Body Dressing (QC): 88 On/Off Footwear (QC): 2 (Pt. bends over to attempt slipper socks, but is unable to don them.) Toileting Hygiene (QC): 2 (Pt. 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 05/03/20 Plan: IRF protocol Monitor closely Supportive care Hope does not leave AMA (1) CVA (cerebral vascular accident) Status: Acute (2) Methamphetamine abuse Status: Acute (3) HLD (hyperlipidemia) Status: Chronic (4) Carotid stenosis Status: Acute (5) HTN (hypertension) Status: Acute (6) Cannabis abuse Status: Acute (7) Hemiparesis of right dominant side Status: Acute (8) Very heavy cigarette smoker (40 or more per day) Status: Acute (9) Illicit drug use Status: Acute (10) Hypertension (11) COPD (chronic obstructive pulmonary disease) PRUDENCE BECK DO May 27, 2020 08:41
--- NOTE | 2020-05-27 08:41 | Individualized Plan of Care ---
Individualized Plan of Care Rehab Nursing IPOC Order Admission Date May 26, 2020 at 10:05 Current Orders Orders Admission Order(Inpt,Obs,Sdc) (05/26/20 09:39) Vital Signs: Per Unit Policy ( 08,16,00 (05/26/20 09:39) Superintendent Terminal-Inpt Rehab Con (05/26/20 09:39) Rehab Nursing Orders-Ipoc (05/26/20 09:39) Physical Therapy Rehab Orders (05/26/20 09:39) Occupational Therapy Rehab Ord (05/26/20 09:39) Speech Therapy Rehab Orders (05/26/20 09:39) Cbc With Automated Diff (05/27/20 06:00) Comprehensive Metabolic Panel (05/27/20 06:00) Intake & Output 06,14,22 (05/26/20 09:39) Precautions (Aru) (05/26/20 09:39) Rehab-Intensity Of Therapy (05/26/20 09:39) Initiate Admission Nursing Pro .admission (05/26/20 09:39) Alprazolam Tablet (Xanax Tablet) (05/26/20 09:45) Calcium Carbonate Chew Tablet (Antacid C (05/26/20 09:45) Diphenhydramine Tablet (Benadryl Tablet) (05/26/20 09:45) Docusate Sodium Capsule (Colace Capsule) (05/26/20 21:00) Docusate Sodium Capsule (Colace Capsule) (05/26/20 09:45) Bisacodyl Suppository (Dulcolax Supposit (05/26/20 09:45) Lactulose Oral Solution (Enulose Oral So (05/26/20 09:45) Na Phos/Na Biphos Enema (Fleet Enema Vinh (05/26/20 09:45) Guaifenesin/Codeine Syrup (Robitussin Ac (05/26/20 09:45) Loperamide Tablet (Imodium Tablet) (05/26/20 09:45) Melatonin Tablet (Melatonin Tablet) (05/26/20 09:45) Polyethylene Glycol Powder Pkt (Miralax (05/26/20 21:00) Ondansetron Oral Dissolve Tab (Zofran (05/26/20 09:45) Senna S Tablet (Senokot S Tablet) (05/26/20 21:00) Initiate Admission Nursing Pro .admission (05/26/20 09:39) Admission Arrival Bed Request (05/26/20 10:21) Code/Resuscitation (05/26/20 10:43) General/Regular (05/26/20 Lunch) Albuterol Inhaler (Ventolin Hfa) (05/26/20 10:45) Aspirin Chewable Tablet (Baby Aspirin Ch (05/27/20 09:00) Atorvastatin Tablet (Lipitor Tablet) (05/26/20 21:00) Baclofen Tablet (Lioresal Tablet) (05/26/20 10:45) Clopidogrel Tablet (Plavix Tablet) (05/27/20 09:00) Enoxaparin Injection (Lovenox Injection) (05/27/20 09:00) Gabapentin Capsule/Tablet (Neurontin Cap (05/26/20 10:45) Umeclidinium [place] Inhaler (Incruse El (05/26/20 10:45) Amlodipine Tablet (Norvasc Tablet) (05/27/20 09:00) Lisinopril Tablet (Zestril Tablet) (05/27/20 09:00) Oxycodone Immediate Rel Tablet (Oxyir Ta (05/26/20 10:45) Consult Cardiology (05/26/20 10:43) Hydralazine Tablet (Apresoline Tablet) (05/26/20 10:45) Patient Visit (05/26/20 ) Speech Sound Lang Comp (05/26/20 ) Patient Visit (05/26/20 ) Pt Eval Moderate Complexity (05/26/20 ) Exercise Therap, Ea 15 Min (05/26/20 ) Functional Activities, Ea 15 (05/26/20 ) Sodium Chloride Flush (Catheter Flush Sy (05/26/20 16:45) Sodium Chloride Flush (Catheter Flush Sy (05/26/20 22:00) Patient Visit (05/27/20 ) Functional Activities, Ea 15 (05/27/20 ) Wheelchair Mgmt/Propulsn 15min (05/27/20 ) Exercise Therap, Ea 15 Min (05/27/20 ) Consult Physician (05/27/20 18:26) Fluticasone Nasal [place] (Flonase Nasal S (05/27/20 20:00) Rehab Nursing Orders: Ongoing Assess. of Cognitive Status, Ongoing Assess. of Function Status, Bladder Management, Bladder Scan, Bladder Training, Bowel Management, Bowel Training, Disease Management & Educaiton, DVT Prophylaxis, Fall Prevention, Fluid/Electrolyte/Nutrition Mgmt, Infection Prevention, Medication Management & Education, Management of Risks & Complications, Management of Skin Intergrity, Nutrition Management, Pain Management, Patient/Family Support, Safety Management Intensity of Therapy to be met Patient to be seen: Min.3h per day/5 of 7d PT IPOC Problem List: Activity Tolerance, Functional Strength, Safety, Balance, Gait, Transfer, Bed Mobility, ROM Treatment Plan: Continue Plan of Care Bed Mobility, Education, Functional Activity Dutch, Functional Strength, Group Therapy, Gait, Safety, Therapeutic Exercise, Transfers Treatment Duration: Jun 16, 2020 Frequency: At least 5 of 7 days/Wk (IRF) Estimated Hrs Per Day: 1.5 hours per day OT IPOC Problems: Decreased Activ Tolerance, Decreased UE Strength, Dependent Transfers, Impaired Bed Mobility, Impaired Coordination, Impaired Funct Balance, Impaired I ADL's, Impaired Self-Care Skills, Restricted Funct UE ROM OT Treatment, Training and Edu: Yes Plan of Care: ADL Retraining, Functional Mobility, Group Exercise/Act as Ind, UE Funct Exercise/Act Treatment Duration: Jun 16, 2020 Frequency: At least 5 of 7 days/Wk (IRF) Estimated Hrs Per Day: 1.[address] IPOC Speech Therapy Treatment Plan: Discontinue ST Treatment Duration: May 26, 2020 Frequency: 1 time per week Estimated Hrs Per Day: .25 hour per day Superintendent Terminal/Case Mgmt Superintendent Terminal/Case Managemen: Discharge Planning Dietitian/Report Checker Dietitian/Report Checker to monitor nutritional status and make changes and/or recommendations as needed and work with speech pathology on dietary upgrades as the occur. Physician IPOC Medical Issues being managed closely and that require the 24 hour availability of a physician: Recent extension of CVA with labile HTN and h/o cardiac dysfunction will need close monitoring of clinical issues due to high risk for decompensation Medical Issues: Bowel/Bladder Function, DVT Prophylaxis, Falls Precautions, Fluid/Electrolyte/Nutrition Balance, Infection Protection, Pain Management Brief Synthesis of Preadmission Screen, Post-Admission Evaluation, and Therapy Evaluations: PT OT will focus on regaining independence in ADL's and ambulatory skills with close attention to fall prevention Medical Prognosis: Fair Anticipated Length of Stay: 10 days PRUDENCE BECK DO May 27, 2020 08:41
[2020-05-27] MEDS: SENNA W/DOCUSATE (SENOKOT S) TABLET PO SCH ×2 (08:49→20:06)
[2020-05-27] MEDS: ENOXAPARIN 40 MG/0.4 ML (LOVENOX) SYR SC SCH (08:49)
[2020-05-27] MEDS: amLODIPine 5 MG (NORVASC) TAB PO SCH (08:49)
[2020-05-27] MEDS: lisINopril 20 MG (PRINIVIL) TABLET PO SCH (08:49)
[2020-05-27] MEDS: CLOPIDOGREL 75 MG (PLAVIX) TABLET PO SCH (08:49)
[2020-05-27] MEDS: DOCUSATE SODIUM 100 MG (COLACE) CAP PO SCH ×2 (08:49→20:06)
[2020-05-27] MEDS: ASPIRIN 81 MG CHEW (CHILDREN'S ASA) PO SCH (08:49)
--- NOTE | 2020-05-27 09:16 | Occupational Ther Daily Note ---
OT Current Status-Daily Note Subjective Pt laying in bed, required moderate encouragement to wake up and participate in therapy. He did not report any pain, but throughout session reports frustration with R side of his body. Mental Status/Objective Patient Orientation: Person, Place, Situation ADL-Treatment Therapy Code Descriptions/Definitions Functional [place] Measure: 0=Not Assessed/NA 4=Minimal Assistance 1=Total Assistance 5=Supervision or Setup 2=Maximal Assistance 6=Modified [place] 3=Moderate Assistance 7=Complete IndependenceSCALE: Activities may be completed with or without assistive devices. 9-Eatjehwtnx-dofqaqo completes the activity by him/herself with no assistance from a helper. 5-Set-up or Clean-up Assistance-helper sets up or cleans up; patient completes activity. [place] assists only prior to or following the activity. 4-Supervision or Touching Assistance-helper provides verbal cues and/or touching/steadying and/or contact guard assistance as patient completes activity. Assistance may be provided throughout the activity or intermittently. 3-Partial/Moderate Assistance-helper does LESS THAN HALF the effort. [place] lifts, holds or supports trunk or limbs, but provides less than half the effort. 2-Substantial/Maximal Assistance-helper does MORE THAN HALF the effort. [place] lifts or holds trunk or limbs and provides more than half the effort. 9-Veqkiwhrj-bliiqr does ALL the effort. Patient does none of the effort to complete the activity. Or, the assistance of 2 or more helpers is required for the patient to complete the activity. If activity was not attempted, code reason: 7-Patient Refused. 9-Not Applicable-not attempted and the patient did not perform the activity be fore the current illness, exacerbation or injury. 10-Not Attempted due to Environmental Limitations-(lack of equipment, weather restraints, etc.). 88-Not Attempted due to Medical Conditions or Safety Concerns. Oral Hygiene (QC): 7 (Pt declined as he does not have any teeth.) Upper Body Dressing (QC): 3 (Min A with threading/doffing RUE.) Lower Body Dressing (QC): 3 (Pt able to thread LLE, assist threading RLE, pt able to complete pant hike with assist for standing balance.) Other Treatment OT/PT cotreat due to skill of 2 clinicians required which a rehab technician could not perform in order to coordinate UE/LEs, to decrease fall risk, and due to pt's limitations in balance, mobility, transfers, strength and activity tolerance. OT focused on ADLs, UE placement, cues for sequencing and safety, PT focused on LE placement, overall gross movements, and transfers/mobility. Pt laying in bed, transferred supine to sit EOB, then donned clothes. Pt required min-mod A with dynamic sitting balance at EOB, leaning towards R side. He stood at FWW in order to perform pant hike, mod A with dynamic standing balance with task, he then transferred to w/c. Pt propelled w/c to therapy gym and to parallel bars. Pt ambulated 3x6' in bars, assist with advancing RUE on parallel bars, pt ambulated with his body closer to L parallel bar compared to R bar. Seated rest breaks between. He then stood at parallel bars, weight shifting side to side, OT assisted with blocking RUE elbow. This was complete to increase proprioceptive input to R side of the body. Pt propelled w/c back to his room, SPT to recliner. Post tx, pt seated in recliner, call light in reach and all needs met. Education OT Patient Education: Correct positioning, Modified ADL techniques, Progress toward Goal/Update tx plan, Purpose of tx/functional activities, Rehab process, Safety issues, Transfer techniques Teaching Recipient: Patient Teaching Methods: Discussion Response to Teaching: Verbalize Understanding OT Short Term Goals Short Term Goals Time Frame: Jun 02, 2020 Eatin Oral hygiene: 88 Toileting hygiene: 3 Shower/bathe self: 3 Upper body dressin Lower body dressin Putting on/taking off footwear: 3 OT Imcu Specialist Goals [facility] Goals Time Frame: Jun 16, 2020 Eating (QC): 6 Oral Hygiene (QC): 88 Toileting Hygiene (QC): 6 Shower/Bathe Self (QC): 4 Upper Body Dressing (QC): 6 Lower Body Dressing (QC): 6 On/Off Footwear (QC): 6 Additional Goals: 1-Demonstrate ADL Tasks, 2-Verbalize Understanding, 3- ImproveStrength/Dutch 1=Demonstrate adherence to instructed precautions during ADL tasks. 2=Patient will verbalize/demonstrate understanding of assistive devices/modifications for ADL. 3=Patient will improve strength/tolerance for activity to enable patient to perform ADL's. OT Education/Plan Problem List/Assessment Assessment: Decreased Activ Tolerance, Decreased UE Strength, Impaired Coordination, Impaired Funct Balance, Impaired I ADL's, Impaired Self-Care Skills, Restricted Funct UE ROM Discharge Recommendations Plan/Recommendations: Continue POC Treatment Plan/Plan of Care Patient would benefit from OT for education, treatment and training to promote independence in ADL's, mobility, safety and/or upper extremity function for ADL's. Plan of Care: ADL Retraining, Functional Mobility, Group Exercise/Act as Ind, UE Funct Exercise/Act Treatment Duration: Jun 16, 2020 Frequency: At least 5 of 7 days/Wk (IRF) Estimated Hrs Per Day: 1.5 hours per day Agreement: Yes Rehab Potential: Fair Time/GCodes Start Time: 08:00 Stop Time: 09:00 Total Time Billed (hr/min): 60 Billed Treatment Time cotreat x60' 1, ADL (15'), FA 3 (45') MILAD HENDRICKSON OT May 27, 2020 09:16
--- NOTE | 2020-05-27 11:53 | Physical Therapy Daily Note ---
PT Daily Note-Current Subjective Pt laying in bed, required moderate encouragement to wake up and participate in therapy. He did not report any pain, but throughout session reports frustration with R side of his body. Pain Location: No Pain Reported Mental Status Patient Orientation: Person, Place, Situation Transfers SCALE: Activities may be completed with or without assistive devices. 6-Lahjbsxbsd-yksqicv completes the activity by him/herself with no assistance from a helper. 5-Set-up or Clean-up Assistance-helper sets up or cleans up; patient completes activity. [place] assists only prior to or following the activity. 4-Supervision or Touching Assistance-helper provides verbal cues and/or touching/steadying and/or contact guard assistance as patient completes activity. Assistance may be provided throughout the activity or intermittently. 3-Partial/Moderate Assistance-helper does LESS THAN HALF the effort. [place] lifts, holds or supports trunk or limbs, but provides less than half the effort. 2-Substantial/Maximal Assistance-helper does MORE THAN HALF the effort. [place] lifts or holds trunk or limbs and provides more than half the effort. 0-Eymufvmhx-cthzgv does ALL the effort. Patient does none of the effort to complete the activity. Or, the assistance of 2 or more helpers is required for the patient to complete the activity. If activity was not attempted, code reason: 7-Patient Refused. 9-Not Applicable-not attempted and the patient did not perform the activity before the current illness, exacerbation or injury. 10-Not Attempted due to Environmental Limitations-(lack of equipment, weather restraints, etc.). 88-Not Attempted due to Medical Conditions or Safety Concerns. Lying to Sitting/Side of Bed(Q: 3 Sit to Stand (QC): 3 Weight Bearing Full Weight Bearing Full Weight Bearing Gait Training Does the Patient Walk?: Yes Distance: 10' x3 Walk 10 feet (QC): 3 Gait Persons Needed: 1 Gait Assistive Device: Parallel Bars Wheelchair Training Does the Pt Use a Wheelchair?: Yes Wheel 50 ft with 2 turns (QC): 4 Wheel 150 ft (QC): 4 Type of Wheelchair: Manual Exercises Standing: Sit to Stand, Weight shifts Treatments Other Treatment OT/PT cotreat due to skill of 2 clinicians required which a rehab aid could not perform in order to coordinate UE/LEs, to decrease fall risk, and due to pt's limitations in balance, mobility, transfers, strength and activity tolerance. OT focused on ADLs, UE placement, cues for sequencing and safety, PT focused on LE placement, overall gross movements, and transfers/mobility. Pt laying in bed, transferred supine to sit EOB, then donned clothes. Pt required min-mod A with dynamic sitting balance at EOB, leaning towards R side. He stood at FWW in order to perform pant hike, mod A with dynamic standing balance with task, he then transferred to w/c. Pt propelled w/c to therapy gym and to parallel bars. Pt ambulated 3x6' in bars, assist with advancing RUE on parallel bars, pt ambulated with his body closer to L parallel bar compared to R bar. Seated rest breaks between. He then stood at parallel bars, weight shifting side to side, OT assisted with blocking RUE elbow. This was complete to increase proprioceptive input to R side of the body. Pt propelled w/c back to his room, SPT to recliner. Post tx, pt seated in recliner, call light in reach and all needs met. Assessment Current Status: Fair Progress Pt remains resistive to tx, needing encouragement to participate. PT Short Term Goals Short Term Goals Time Frame: Jun 02, 2020 Roll Left & Right: 4 (SBA) Sit to lyin (SBA) Lying to sitting on side of be: 4 (SBA) Sit to stand: 4 (CGA) Chair/qgv-jt-dpnsa transfer: 4 (min) Toilet transfer: 4 (min) Car transfer: 4 (min) Walk 10 feet: 4 (min) Walk 50 feet with two turns: 4 (min) 1 step (curb): 4 (CGA) Wheel 50ft w/2 turns: 4 Wheel 150 feet: 4 PT [facility] Goals Electrical Power Engineer Goals PT [facility] Goals Time Frame: Jun 16, 2020 Roll Left & Right (QC): 5 Sit to Lying (QC): 5 Lying-Sitting on Side/Bed(QC): 5 Sit to Stand (QC): 5 Chair/Zsq-kf-Puluu Xfer(QC): 4 (CGA) Toilet Transfer (QC): 4 (CGA) Car Transfer (QC): 4 (CGA) Does the Patient Walk: Yes Walk 10 feet (QC): 4 (CGA) Walk 50ft with 2 Turns (QC): 4 (CGA) Walk 150 ft (QC): 4 (CGA) Walking 10ft on Uneven Surface: 4 (CGA) 1 Step (curb) (QC): 4 (CGA) 4 Steps (QC): 4 (CGA) 12 Steps (QC): 88 Picking up an Object (QC): 4 (CGA) Does the Pt use WC or Scooter?: Yes Wheel 50 feet with 2 turns (QC: 6 Type: Manual Wheel 150 feet: 6 Type: Manual PT Plan Problem List Problem List: Activity Tolerance, Functional Strength, Safety, Gait, Transfer, Bed Mobility Treatment/Plan Treatment Plan: Continue Plan of Care Treatment Plan: Bed Mobility, Education, Functional Activity Dutch, Functional Strength, Group Therapy, Gait, Safety, Therapeutic Exercise, Transfers Treatment Duration: Jun 16, 2020 Frequency: At least 5 of 7 days/Wk (IRF) Estimated Hrs Per Day: 1.5 hours per day Patient and/or Family Agrees t: Yes Safety Risks/Education Patient Education: Gait Training, Transfer Techniques, Correct Positioning, W/C Management, Safety Issues Teaching Recipient: Patient Teaching Methods: Discussion Response to Teaching: Reinforcement Needed Time/GCodes Time In: 800 Time Out: 900 Total Billed Treatment Time: 60 Total Billed Treatment 1, FA x2 (30m), WCH (15m) & EX (15m) Co-treat w/OT for 60m ASHANTI ROY PTA May 27, 2020 11:53
--- NOTE | 2020-05-27 12:02 | Physical Therapy Daily Note ---
PT Daily Note-Current Subjective Pt sitting up in bed upon arrival. Pt agrees to PT. Pain Location: No Pain Reported Mental Status Patient Orientation: Person, Place, Situation Transfers SCALE: Activities may be completed with or without assistive devices. 9-Xbwkqdveit-lvlvbxi completes the activity by him/herself with no assistance from a helper. 5-Set-up or Clean-up Assistance-helper sets up or cleans up; patient completes activity. [place] assists only prior to or following the activity. 4-Supervision or Touching Assistance-helper provides verbal cues and/or touching/steadying and/or contact guard assistance as patient completes activity. Assistance may be provided throughout the activity or intermittently. 3-Partial/Moderate Assistance-helper does LESS THAN HALF the effort. [place] lifts, holds or supports trunk or limbs, but provides less than half the effort. 2-Substantial/Maximal Assistance-helper does MORE THAN HALF the effort. [place] lifts or holds trunk or limbs and provides more than half the effort. 8-Xxmjhtixp-cqnilf does ALL the effort. Patient does none of the effort to complete the activity. Or, the assistance of 2 or more helpers is required for the patient to complete the activity. If activity was not attempted, code reason: 7-Patient Refused. 9-Not Applicable-not attempted and the patient did not perform the activity before the current illness, exacerbation or injury. 10-Not Attempted due to Environmental Limitations-(lack of equipment, weather restraints, etc.). 88-Not Attempted due to Medical Conditions or Safety Concerns. Weight Bearing Full Weight Bearing Full Weight Bearing Exercises Supine Ex: Ankle pumps, Quad Set, Glut sets, Heel Slides, Straight leg raise, Hip abd/add Treatments LABORATORY CHEMIST issues and reviews written HEP for Supine & Seated EX. Pt takes frequent RB to eat and watch movie on phone until redirected. PT Short Term Goals Short Term Goals Time Frame: Jun 02, 2020 Roll Left & Right: 4 (SBA) Sit to lyin (SBA) Lying to sitting on side of be: 4 (SBA) Sit to stand: 4 (CGA) Chair/hvd-eh-tyxfh transfer: 4 (min) Toilet transfer: 4 (min) Car transfer: 4 (min) Walk 10 feet: 4 (min) Walk 50 feet with two turns: 4 (min) 1 step (curb): 4 (CGA) Wheel 50ft w/2 turns: 4 Wheel 150 feet: 4 PT Mcc Goals Forest Worker Goals PT Forest Worker Goals Time Frame: Jun 16, 2020 Roll Left & Right (QC): 5 Sit to Lying (QC): 5 Lying-Sitting on Side/Bed(QC): 5 Sit to Stand (QC): 5 Chair/Iif-wy-Qdytk Xfer(QC): 4 (CGA) Toilet Transfer (QC): 4 (CGA) Car Transfer (QC): 4 (CGA) Does the Patient Walk: Yes Walk 10 feet (QC): 4 (CGA) Walk 50ft with 2 Turns (QC): 4 (CGA) Walk 150 ft (QC): 4 (CGA) Walking 10ft on Uneven Surface: 4 (CGA) 1 Step (curb) (QC): 4 (CGA) 4 Steps (QC): 4 (CGA) 12 Steps (QC): 88 Picking up an Object (QC): 4 (CGA) Does the Pt use WC or Scooter?: Yes Wheel 50 feet with 2 turns (QC: 6 Type: Manual Wheel 150 feet: 6 Type: Manual PT Plan Problem List Problem List: Activity Tolerance, Functional Strength Treatment/Plan Treatment Plan: Continue Plan of Care Treatment Plan: Bed Mobility, Education, Functional Activity Dutch, Functional Strength, Group Therapy, Gait, Safety, Therapeutic Exercise, Transfers Treatment Duration: Jun 16, 2020 Frequency: At least 5 of 7 days/Wk (IRF) Estimated Hrs Per Day: 1.5 hours per day Patient and/or Family Agrees t: Yes Safety Risks/Education Patient Education: Issued Written HEP, Correct Positioning Teaching Recipient: Patient Teaching Methods: Discussion Response to Teaching: Verbalize Understanding Time/GCodes Time In: 1130 Time Out: 1200 Total Billed Treatment Time: 30 Total Billed Treatment 1, EX x2 (30m) ASHANTI ROY PTA May 27, 2020 12:02
--- NOTE | 2020-05-27 13:52 | Occupational Ther Daily Note ---
OT Current Status-Daily Note Subjective Pt laying in bed, agreeable to therapy but states he would just like to nap. Pt agreeable to returning to bed post tx. ADL-Treatment Therapy Code Descriptions/Definitions Functional [place] Measure: 0=Not Assessed/NA 4=Minimal Assistance 1=Total Assistance 5=Supervision or Setup 2=Maximal Assistance 6=Modified [place] 3=Moderate Assistance 7=Complete IndependenceSCALE: Activities may be completed with or without assistive devices. 8-Skqctbcith-wtfjvaj completes the activity by him/herself with no assistance from a helper. 5-Set-up or Clean-up Assistance-helper sets up or cleans up; patient completes activity. [place] assists only prior to or following the activity. 4-Supervision or Touching Assistance-helper provides verbal cues and/or touching/steadying and/or contact guard assistance as patient completes activi ty. Assistance may be provided throughout the activity or intermittently. 3-Partial/Moderate Assistance-helper does LESS THAN HALF the effort. [place] lifts, holds or supports trunk or limbs, but provides less than half the effort. 2-Substantial/Maximal Assistance-helper does MORE THAN HALF the effort. [place] lifts or holds trunk or limbs and provides more than half the effort. 3-Wsbuhrpnn-ahxamm does ALL the effort. Patient does none of the effort to complete the activity. Or, the assistance of 2 or more helpers is required for the patient to complete the activity. If activity was not attempted, code reason: 7-Patient Refused. 9-Not Applicable-not attempted and the patient did not perform the activity before the current illness, exacerbation or injury. 10-Not Attempted due to Environmental Limitations-(lack of equipment, weather restraints, etc.). 88-Not Attempted due to Medical Conditions or Safety Concerns. Other Treatment Pt laying in bed, transferred supine to sit EOB, CGA. States need to use bathroom, SPT from bed to w/c. Pt taken into bathroom, transferring to toilet SPT using GBs. Pt completed toileting, stood at GBs for pant hike with mod A for standing balance, SPT to w/c. Pt self-propelled w/c to therapy gym, min A due to pt running into objects on R side. In order to increase BUE strength/activity tolerance, and to increase bilateral integration/neuromuscular reeducation of RUE, pt completed arm bike x6 mins with multiple rest breaks. Pt's hand slid off of handle a few times, pt required cues to focus on R hand's grasp. Pt propelled w/c back to room, SPT to bed. Post tx, pt laying in bed, call light in reach and all needs met. Education OT Patient Education: Correct positioning, Modified ADL techniques, Progress toward Goal/Update tx plan, Purpose of tx/functional activities Teaching Recipient: Patient Teaching Methods: Discussion Response to Teaching: Verbalize Understanding OT Short Term Goals Short Term Goals Time Frame: Jun 02, 2020 Eatin Oral hygiene: 88 Toileting hygiene: 3 Shower/bathe self: 3 Upper body dressin Lower body dressin Putting on/taking off footwear: 3 OT Barrel Inspector Tight Goals Skilled Nursing Goals Time Frame: Jun 16, 2020 Eating (QC): 6 Oral Hygiene (QC): 88 Toileting Hygiene (QC): 6 Shower/Bathe Self (QC): 4 Upper Body Dressing (QC): 6 Lower Body Dressing (QC): 6 On/Off Footwear (QC): 6 Additional Goals: 1-Demonstrate ADL Tasks, 2-Verbalize Understanding, 3- ImproveStrength/Dutch 1=Demonstrate adherence to instructed precautions during ADL tasks. 2=Patient will verbalize/demonstrate understanding of assistive devices/modifications for ADL. 3=Patient will improve strength/tolerance for activity to enable patient to perform ADL's. OT Education/Plan Problem List/Assessment Assessment: Decreased Activ Tolerance, Decreased UE Strength, Impaired Funct Balance, Impaired I ADL's, Impaired Self-Care Skills, Restricted Funct UE ROM Discharge Recommendations Plan/Recommendations: Continue POC Treatment Plan/Plan of Care Patient would benefit from OT for education, treatment and training to promote independence in ADL's, mobility, safety and/or upper extremity function for ADL's. Plan of Care: ADL Retraining, Functional Mobility, Group Exercise/Act as Ind, UE Funct Exercise/Act Treatment Duration: Jun 16, 2020 Frequency: At least 5 of 7 days/Wk (IRF) Estimated Hrs Per Day: 1.5 hours per day Agreement: Yes Rehab Potential: Fair Time/GCodes Start Time: 13:00 Stop Time: 13:30 Total Time Billed (hr/min): 30 Billed Treatment Time 1, ADL (15'), EX (15') CRUMPACKER,MILAD OT May 27, 2020 13:52
[2020-05-27] MEDS: BACLOFEN 10 MG (LIORESAL) TAB PO PRN ×2 (15:12→20:13)
[2020-05-27 18:00] VITALS: BP_SYST 146; BP_SYST 152; BP_DIAS 80
[2020-05-27] MEDS ORDERED: FLUTICASONE NASAL SPRAY (FLONASE) 16 GM BTL NS PRN (20:00)
[2020-05-27] MEDS: GABAPENTIN 300 MG (NEURONTIN) CAP PO PRN (20:06)
[2020-05-28 05:02] VITALS: BP 129/61
[2020-05-28] MEDS: CATHETER FLUSH 10 ML SYR IV SCH ×3 (05:24→21:26)
[2020-05-28] MEDS: lisINopril 20 MG (PRINIVIL) TABLET PO SCH (07:47)
[2020-05-28] MEDS: ENOXAPARIN 40 MG/0.4 ML (LOVENOX) SYR SC SCH (07:47)
[2020-05-28] MEDS: polyethylene glycoL POWDER 17 GM (MIRALAX) PACK PO SCH ×2 (07:47→21:12)
[2020-05-28] MEDS: amLODIPine 5 MG (NORVASC) TAB PO SCH (07:47)
[2020-05-28] MEDS: SENNA W/DOCUSATE (SENOKOT S) TABLET PO SCH ×2 (07:47→21:12)
[2020-05-28] MEDS: DOCUSATE SODIUM 100 MG (COLACE) CAP PO SCH ×2 (07:47→21:12)
[2020-05-28] MEDS: ASPIRIN 81 MG CHEW (CHILDREN'S ASA) PO SCH (07:47)
[2020-05-28] MEDS: CLOPIDOGREL 75 MG (PLAVIX) TABLET PO SCH (07:47)
[2020-05-28] MEDS: GABAPENTIN 300 MG (NEURONTIN) CAP PO PRN (07:57)
--- NOTE | 2020-05-28 08:16 | Cardiology Progress Note ---
Subjective Date Seen by Provider: May 28, 2020 Time Seen by Provider: 08:15 Subjective/Events-last exam No new complaint, denies any chest pain or dyspnea. Objective-Cardiology Exam Last Set of Vital Signs Vital Signs 05/28/20 05/28/20 05:02 09:20 Temp 37.0 Pulse 62 Resp 20 B/P (MAP) 129/61 (83) Pulse Ox 95 O2 Delivery Room Air Capillary Refill : I&O Intake and Output 05/28/20 00:00 Intake Total 1100 ml Output Total 2001 ml Balance -901 ml Intake Oral 1100 ml Output Urine Total 2000 ml Stool Total 1 ml # Voids 2 # Bowel Movements 2 General: Alert, Oriented X3, Cooperative HEENT: Atraumatic, PERRLA Neck: Supple, No JVD, No Thyromegaly Lungs: Clear to Auscultation, Normal Air Movement Heart: Regular Rate, Normal S1, Normal S2 Abdomen: Soft, No Tenderness Extremities: No Clubbing, No Edema Skin: No Rashes, No Significant Lesion Neuro: Normal Speech, Other (right sided hemiparesis) A/P-Cardiology Admission Diagnosis CVA CAD HTN HLP Assessment/Plan Recurrent CVA d/t Carotid artery stenosis, had a stroke in December 2019 r esulted in right-sided weakness, had left-sided weakness on this admission. He had history of carotid stenting at [facility] in January 2020 after the first stroke, he is known to have complete occlusion of the left common and internal carotid arteries, stent of the right carotid artery. Most recent CTA head done 05/23/20 showing internal thrombus within the right internal carotid artery stent which is slightly less prominent than on the prior examination. [facility] neurology consulted and recommend continuation of ASA and Plavix. Does not warrant intervention at this time. Coronary artery disease, history of cardiac catheterization in 2013 showing patent stents in the proximal LAD, known to have Promus element 2.75 by 16mm placed in July 2012, the proximal stent is Premier 3 x 16 placed in June 2013, had 50-60 percent mid LAD stenosis, clinically stable, continue to monitor. Maintained on ASA and Plavix. Hypertension, controlled, continue to monitor. Hyperlipidemia, monitor lipids Tobaccoism, educated on smoking cessation H/O marijuana and heavy EtOH use Methamphetamine abuse; (+) this admission H/O hepatitis C followed at the [facility] COPD Chronically abnormal EKG that shows LVH with repolarization abnormalities Patient was seen and evaluated with Ebony, examination performed, management plan was discussed, agree with the current scribed note, I made few changes to the note using Italic font Patient was seen and evaluated this morning, feeling better No new complaint Continue with current treatment EBONY WARREN May 28, 2020 08:16 DEMETRIO ALVAREZ MD May 28, 2020 12:39
--- NOTE | 2020-05-28 09:45 | Physical Therapy Daily Note ---
PT Daily Note-Current Subjective Patient was supine in bed pre tx, asleep. Patient was not motivated to participate in therapy, but agreed to tx. Patient reported no pain. Appearance Patient left post tx in therapy gym to work with OT. Mental Status Patient Orientation: Person, Place, Time, Normal For Age Transfers SCALE: Activities may be completed with or without assistive devices. 7-Gyokbtcjgk-hfawtcz completes the activity by him/herself with no assistance from a helper. 5-Set-up or Clean-up Assistance-helper sets up or cleans up; patient completes activity. [place] assists only prior to or following the activity. 4-Supervision or Touching Assistance-helper provides verbal cues and/or touching/steadying and/or contact guard assistance as patient completes activity. Assistance may be provided throughout the activity or intermittently. 3-Partial/Moderate Assistance-helper does LESS THAN HALF the effort. [place] lifts, holds or supports trunk or limbs, but provides less than half the effort. 2-Substantial/Maximal Assistance-helper does MORE THAN HALF the effort. [place] lifts or holds trunk or limbs and provides more than half the effort. 3-Gstoglvpo-qlcwek does ALL the effort. Patient does none of the effort to complete the activity. Or, the assistance of 2 or more helpers is required for the patient to complete the activity. If activity was not attempted, code reason: 7-Patient Refused. 9-Not Applicable-not attempted and the patient did not perform the activity before the current illness, exacerbation or injury. 10-Not Attempted due to Environmental Limitations-(lack of equipment, weather restraints, etc.). 88-Not Attempted due to Medical Conditions or Safety Concerns. Roll Left & Right (QC): 4 (SBA) Lying to Sitting/Side of Bed(Q: 3 (Assistance required with moving R LE to EOB) Sit to Stand (QC): 4 (CGA) Chair/Jlv-uq-Lbyrx Xfer(QC): 4 Patient is CGA with most transfers but requires increased cueing for hand and foot placement with sit <-> stand. Weight Bearing Full Weight Bearing Full Weight Bearing Gait Training Does the Patient Walk?: Yes Distance: 6', 10', 6' Walk 10 feet (QC): 4 Gait Assistive Device: FWW Patient ambulated 6' in parallel bars. Patient used walker outside parallel bars and was able to ambulate 10' with CGA with required verbal cues for foot and hand placement with ambulation. Patient required rest break. Repeat attempt patient was able to ambulate 6' before needing rest break, which patient reported walking was "very tiring." Patient will often leave right foot behind and step twice with left leg due to neglect. Wheelchair Training Does the Pt Use a Wheelchair?: Yes Wheel 50 ft with 2 turns (QC): 4 Type of Wheelchair: Manual CGA. Patient demonstrates mild neglect with w/c navigation, which causes him to bump into objects on R side. Exercises NuStep Minutes: 15 NuStep Workload: 4 Treatments LE strengthening, gait training, wheelchair training, transfers Assessment Current Status: Poor Progress Patient was agitated throughout session today. Patient is constantly on his phone, utilizing pzsp-dr-mkug, and is very unwilling to participate in exercise instructions. Despite calm verbal cues from PT to perform interventions, patient continued to be distracted and agitated with his phone. This interfered with patient compliance and overall effort throughout entire treatment session. PT Short Term Goals Short Term Goals Time Frame: Jun 02, 2020 Roll Left & Right: 4 (SBA) Sit to lyin (SBA) Lying to sitting on side of be: 4 (SBA) Sit to stand: 4 (CGA) Chair/kth-gt-bwskn transfer: 4 (min) Toilet transfer: 4 (min) Car transfer: 4 (min) Walk 10 feet: 4 (min) Walk 50 feet with two turns: 4 (min) 1 step (curb): 4 (CGA) Wheel 50ft w/2 turns: 4 Wheel 150 feet: 4 PT Returning Officer Goals Intermediate Goals PT Intermediate Goals Time Frame: Jun 16, 2020 Roll Left & Right (QC): 5 Sit to Lying (QC): 5 Lying-Sitting on Side/Bed(QC): 5 Sit to Stand (QC): 5 Chair/Epd-ru-Aqzyj Xfer(QC): 4 (CGA) Toilet Transfer (QC): 4 (CGA) Car Transfer (QC): 4 (CGA) Does the Patient Walk: Yes Walk 10 feet (QC): 4 (CGA) Walk 50ft with 2 Turns (QC): 4 (CGA) Walk 150 ft (QC): 4 (CGA) Walking 10ft on Uneven Surface: 4 (CGA) 1 Step (curb) (QC): 4 (CGA) 4 Steps (QC): 4 (CGA) 12 Steps (QC): 88 Picking up an Object (QC): 4 (CGA) Does the Pt use WC or Scooter?: Yes Wheel 50 feet with 2 turns (QC: 6 Type: Manual Wheel 150 feet: 6 Type: Manual PT Plan Problem List Problem List: Activity Tolerance, Functional Strength, Safety, Balance, Gait, Transfer, Bed Mobility, ROM Treatment/Plan Treatment Plan: Continue Plan of Care Treatment Plan: Bed Mobility, Education, Functional Activity Dutch, Functional Strength, Group Therapy, Gait, Safety, Therapeutic Exercise, Transfers Treatment Duration: Jun 16, 2020 Frequency: At least 5 of 7 days/Wk (IRF) Estimated Hrs Per Day: 1.5 hours per day Patient and/or Family Agrees t: Yes Safety Risks/Education Patient Education: Gait Training, Transfer Techniques, Correct Positioning, W/C Management, Safety Issues Teaching Recipient: Patient Teaching Methods: Demonstration, Discussion Response to Teaching: Verbalize Understanding, Return Demonstration, Reinforcement Needed Time/GCodes Time In: 0900 Time Out: 1000 Total Billed Treatment Time: 60 Total Billed Treatment 1 visit: FA x3: 45' EX: 15' IAN PETTY PT May 28, 2020 09:45
[2020-05-28] MEDS: UMECLIDINIUM BROMIDE (INCRUSE ELLIPTA) 7'S IH PRN (09:47)
--- NOTE | 2020-05-28 10:26 | Occupational Ther Daily Note ---
OT Current Status-Daily Note Subjective Pt in therapy gym, agreeable to OT. Pt distracted throughout tx by his phone, using xyqx-mz-qols feature. Pt required moderate encouragement to participate throughout session due to distractibility and focusing on texting his girlfriend. During session, pt states his girlfriend is on her way from [place], [place] to see him and she is currently on her way. Mental Status/Objective Patient Orientation: Person, Place, Time, Situation ADL-Treatment Therapy Code Descriptions/Definitions Functional [place] Measure: 0=Not Assessed/NA 4=Minimal Assistance 1=Total Assistance 5=Supervision or Setup 2=Maximal Assistance 6=Modified [place] 3=Moderate Assistance 7=Complete IndependenceSCALE: Activities may be completed with or without assistive devices. 1-Fkpmpdjwse-bocjqej completes the activity by him/herself with no assistance from a helper. 5-Set-up or Clean-up Assistance-helper sets up or cleans up; patient completes activity. [place] assists only prior to or following the activity. 4-Supervision or Touching Assistance-helper provides verbal cues and/or touching/steadying and/or contact guard assistance as patient completes activity. Assistance may be provided throughout the activity or intermittently. 3-Partial/Moderate Assistance-helper does LESS THAN HALF the effort. [place] lifts, holds or supports trunk or limbs, but provides less than half the effort. 2-Substantial/Maximal Assistance-helper does MORE THAN HALF the effort. [place] lifts or holds trunk or limbs and provides more than half the effort. 4-Zyjjjkpdd-cxwagq does ALL the effort. Patient does none of the effort to complete the activity. Or, the assistance of 2 or more helpers is required for the patient to complete the activity. If activity was not attempted, code reason: 7-Patient Refused. 9-Not Applicable-not attempted and the patient did not perform the activity before the current illness, exacerbation or injury. 10-Not Attempted due to Environmental Limitations-(lack of equipment, weather restraints, etc.). 88-Not Attempted due to Medical Conditions or Safety Concerns. Other Treatment Pt finishing with PT tx on NuStep, transferred to w/c on R side, CGA with cues for hand placement and sequencing. Pt completed arm bike x15 mins, min resistance. Assist with placing R hand on handle with task. Pt required increased time with task due to using his phone throughout session, (pt required 30 mins to complete x15 mins on arm bike due to using phone) when OT attempted to redirect pt to task, he became agitated. Pt's hand slipped off of handle a few times with task, requiring assistance placing hand back on handle. Pt frustrated with task, only using L hand for a few seconds until OT told pt to slow down and focus on using his R hand with task too. Next, pt attempted to place pegs into foam pegboard, but pt gets frustrated stating he is unable to lift hand to grab pegs from box (~1 inch tall). OT placed pegs table level a few inches in front of pt's hand and pt still reports he is unable to reach for pegs. Pt removed x9 pegs from pegboard, turning board with L hand in order to place in R hand for removal. Pt completed towel slides x15 reps shoulder flexion with CGA, and x10 reps abduction with min A. Pt inconsistent throughout session, unable to move arm to reach pegs a few inches in front of him, but later able to complete towel slides flexing arm forward ~ 2 feet. Pt instructed to propel w/c to room, using feet and LUE as able, pt states he is going to run over his R foot. OT encourages pt, as he was up at walker with PT this AM, instructing pt to kick foot forward in walking motion. Pt gets increasingly agitated to the point he states "fuck". R leg rest applied to w/c, then pt propelled w/c to room, slight R neglect noted as pt would graze items located on R side. Pt transferred from w/c to EOB, SPT, min A. Then transferred supine with SBA. Post tx, pt laying in bed, call light in reach and all needs met. Education OT Patient Education: Correct positioning, Modified ADL techniques, Progress toward Goal/Update tx plan, Purpose of tx/functional activities Teaching Recipient: Patient Teaching Methods: Discussion Response to Teaching: Verbalize Understanding, Reinforcement Needed OT Short Term Goals Short Term Goals Time Frame: Jun 02, 2020 Eatin Oral hygiene: 88 Toileting hygiene: 3 Shower/bathe self: 3 Upper body dressin Lower body dressin Putting on/taking off footwear: 3 OT Retirement Goals Retirement Goals Time Frame: Jun 16, 2020 Eating (QC): 6 Oral Hygiene (QC): 88 Toileting Hygiene (QC): 6 Shower/Bathe Self (QC): 4 Upper Body Dressing (QC): 6 Lower Body Dressing (QC): 6 On/Off Footwear (QC): 6 Additional Goals: 1-Demonstrate ADL Tasks, 2-Verbalize Understanding, 3-Im proveStrength/Dutch 1=Demonstrate adherence to instructed precautions during ADL tasks. 2=Patient will verbalize/demonstrate understanding of assistive devices/modifications for ADL. 3=Patient will improve strength/tolerance for activity to enable patient to perform ADL's. OT Education/Plan Problem List/Assessment Assessment: Decreased Activ Tolerance, Decreased UE Strength, Impaired Coordination, Impaired Funct Balance, Impaired I ADL's, Impaired Self-Care Skil ls, Restricted Funct UE ROM Discharge Recommendations Plan/Recommendations: Continue POC Treatment Plan/Plan of Care Patient would benefit from OT for education, treatment and training to promote independence in ADL's, mobility, safety and/or upper extremity function for ADL's. Plan of Care: ADL Retraining, Functional Mobility, Group Exercise/Act as Ind, UE Funct Exercise/Act Treatment Duration: Jun 16, 2020 Frequency: At least 5 of 7 days/Wk (IRF) Estimated Hrs Per Day: 1.5 hours per day Agreement: Yes Rehab Potential: Fair Time/GCodes Start Time: 10:00 Stop Time: 11:00 Total Time Billed (hr/min): 60 Billed Treatment Time 1, EX 2 (30'), FA (15'), EX (15') MILAD HENDRICKSON OT May 28, 2020 10:26
--- NOTE | 2020-05-28 12:00 | PM&R Progress Note ---
Subjective HPI/CC On Admission Date Seen by Provider: May 28, 2020 Time Seen by Provider: 11:00 Subjective/Events-last exam 05/28/20: Labile behavior h/o meth use has been a factor in this behavior Obsessed about where his girlfriend is Lungs are clear 05/27/20: Pt doing a lot better Slept in today Working with therapy Right-sided weakness is significant Will work through things as they come Hopefully wont leave AMA this time Review of Systems General: Fatigue, Malaise Neurological: Weakness, Numbness, Incoordination Objective Exam Vital Signs Vital Signs Date Time Temp Pulse Resp B/P (MAP) Pulse Ox O2 Delivery O2 Flow Rate FiO2 05/28/20 21:15 Room Air 05/28/20 17:12 36.3 51 18 119/70 (86) 91 Capillary Refill : General Appearance: No Apparent Distress, WD/WN, Chronically ill, Thin HEENT: PERRL/EOMI, Normal ENT Inspection, Pharynx Normal Neck: Full Range of Motion, Normal Inspection, Non Tender, Supple, Carotid Bruit Respiratory: Chest Non Tender, Lungs Clear, Normal Breath Sounds, No Accessory Muscle Use, No Respiratory Distress Cardiovascular: Regular Rate, Rhythm, No Edema, No Gallop, No JVD, No Murmur, Normal Peripheral Pulses Gastrointestinal: Normal Bowel Sounds, No Organomegaly, No Pulsatile Mass, Non Tender, Soft Back: Normal Inspection, No CVA Tenderness, No Vertebral Tenderness Extremity: Normal Capillary Refill, Normal Inspection, Normal Range of Motion, Non Tender, No Calf Tenderness, No Pedal Edema Neurologic/Psychiatric: Alert, Oriented x3, Normal Mood/Affect, Motor Weakness (right sided weakness 3/5 leg and arm) Skin: Normal Color, Warm/Dry Lymphatic: No Adenopathy Results/Procedures Lab Patient resulted labs reviewed. FIM Transfers Therapy Code Descriptions/Definitions Functional [place] Measure: 0=Not Assessed/NA 4=Minimal Assistance 1=Total Assistance 5=Supervision or Setup 2=Maximal Assistance 6=Modified [place] 3=Moderate Assistance 7=Complete IndependenceSCALE: Activities may be completed with or without assistive devices. 1-Chrmbsoahg-ttalxwq completes the activity by him/herself with no assistance from a helper. 5-Set-up or Clean-up Assistance-helper sets up or cleans up; patient completes activity. [place] assists only prior to or following the activity. 4-Supervision or Touching Assistance-helper provides verbal cues and/or touching/steadying and/or contact guard assistance as patient completes activity. Assistance may be provided throughout the activity or intermittently. 3-Partial/Moderate Assistance-helper does LESS THAN HALF the effort. [place] lifts, holds or supports trunk or limbs, but provides less than half the effort. 2-Substantial/Maximal Assistance-helper does MORE THAN HALF the effort. [place] lifts or holds trunk or limbs and provides more than half the effort. 1-Rpuqozmuu-kxnubn does ALL the effort. Patient does none of the effort to complete the activity. Or, the assistance of 2 or more helpers is required for the patient to complete the activity. If activity was not attempted, code reason: 7-Patient Refused. 9-Not Applicable-not attempted and the patient did not perform the activity before the current illness, exacerbation or injury. 10-Not Attempted due to Environmental Limitations-(lack of equipment, weather restraints, etc.). 88-Not Attempted due to Medical Conditions or Safety Concerns. Roll Left to Right (QC): 4 (SBA) Sit to Stand (QC): 4 (CGA) Chair/Umj-ns-Zjurd Xfer(QC): 4 Car Transfer (QC): 3 (mod) Gait Training Does the Patient Walk?: Yes Distance: 6', 10', 6' Walk 10 feet (QC): 4 Walk 50 ft with 2 Turns(QC): 88 Walk 150 ft (QC): 88 Walking 10ft/uneven surface-QC: 88 Gait Persons Needed: 1 Gait Assistive Device: FWW Wheelchair Training Does the Pt Use a Wheelchair?: Yes Wheel 50 ft with 2 turns (QC): 4 Wheel 150 ft (QC): 4 Type of Wheelchair: Manual Stair Training 1 Step (curb) (QC): 88 4 Steps (QC): 88 12 Steps (QC): 88 Balance Picking up an Object (QC): 88 ADL-Treatment Eating (QC): 5 Oral Hygiene (QC): 7 (Pt declined as he does not have any teeth.) Shower/Bathe Self (QC): 2 (Max assist overall. Pt. requires assistance to wash under bilateral arms, rear lina area while leaning over in shower, and bilateral LE and feet.) Upper Body Dressing (QC): 3 (Min A with threading/doffing RUE.) Lower Body Dressing (QC): 3 (Pt able to thread LLE, assist threading RLE, pt able to complete pant hike with assist for standing balance.) On/Off Footwear (QC): 2 (Pt. bends over to attempt slipper socks, but is unable to don them.) Toileting Hygiene (QC): 2 (Pt. 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 05/03/20 Plan: IRF protocol Monitor closely Supportive care Hope does not leave AMA 05/28/20: Monitor closely Very labile behavior (1) CVA (cerebral vascular accident) Status: Acute (2) Methamphetamine abuse Status: Acute (3) HLD (hyperlipidemia) Status: Chronic (4) Carotid stenosis Status: Acute (5) HTN (hypertension) Status: Acute (6) Cannabis abuse Status: Acute (7) Hemiparesis of right dominant side Status: Acute (8) Very heavy cigarette smoker (40 or more per day) Status: Acute (9) Illicit drug use Status: Acute (10) Hypertension (11) COPD (chronic obstructive pulmonary disease) PRUDENCE BECK DO May 28, 2020 12:00
[2020-05-28] MEDS: GABAPENTIN 300 MG (NEURONTIN) CAP PO SCH ×2 (13:23→21:09)
--- NOTE | 2020-05-28 14:18 | Physical Therapy Daily Note ---
PT Daily Note-Current Subjective Patient was on phone, in bed pre tx. Patient was agitated, but agreed to therapy. Appearance Patient supine in bed, with call button within reach, and tray table positioned next to bed post tx. Mental Status Patient Orientation: Person, Place, Time, Normal For Age Transfers SCALE: Activities may be completed with or without assistive devices. 3-Lnkxusqjlp-uwrfzly completes the activity by him/herself with no assistance from a helper. 5-Set-up or Clean-up Assistance-helper sets up or cleans up; patient completes activity. [place] assists only prior to or following the activity. 4-Supervision or Touching Assistance-helper provides verbal cues and/or touching/steadying and/or contact guard assistance as patient completes activit y. Assistance may be provided throughout the activity or intermittently. 3-Partial/Moderate Assistance-helper does LESS THAN HALF the effort. [place] lifts, holds or supports trunk or limbs, but provides less than half the effort. 2-Substantial/Maximal Assistance-helper does MORE THAN HALF the effort. [place] lifts or holds trunk or limbs and provides more than half the effort. 1-[place]iz[place]-qorgvo does ALL the effort. Patient does none of the effort to complete the activity. Or, the assistance of 2 or more helpers is required for the patient to complete the activity. If activity was not attempted, code reason: 7-Patient Refused. 9-Not Applicable-not attempted and the patient did not perform the activity before the current illness, exacerbation or injury. 10-Not Attempted due to Environmental Limitations-(lack of equipment, weather restraints, etc.). 88-Not Attempted due to Medical Conditions or Safety Concerns. Roll Left & Right (QC): 4 Sit to Lying (QC): 4 Lying to Sitting/Side of Bed(Q: 4 Sit to Stand (QC): 4 Toilet Transfer (QC): 3 CGA, patient needs assistance with guiding R LE with bed mobility. Patient able to use hand rails to assist in transfer to toilet, but requires cueing and assistance for feet positioning, and has decreased balance with attempting to doff pants while holding himself upright. Weight Bearing Full Weight Bearing Full Weight Bearing Wheelchair Training Does the Pt Use a Wheelchair?: Yes Wheel 50 ft with 2 turns (QC): 4 Distance 100' x2. Patient continues to show mild neglect by bumping into R doorway of gym entrance. Patient has improved pacing with w/c. Exercises Patient stood in parallel bars while manipulating putty for 10 min. Patient demonstrated decreased ability to maintain adequate hip extension, and demonstrated flexed posture with standing while using UE's. Treatments PT and OT co-treated during this treatment session secondary to patient fall risk, R UE and LE weakness, and decreased functional mobility. PT focused on transfers, balance, and LE cueing with mobility, and OT focused on R UE g ripping, strength, and ADL's. Assessment Current Status: Fair Progress Patient was not as distracted with phone during today's session, but still demonstrates disinterest in general therapy participation. PT Short Term Goals Short Term Goals Time Frame: Jun 02, 2020 Roll Left & Right: 4 (SBA) Sit to lyin (SBA) Lying to sitting on side of be: 4 (SBA) Sit to stand: 4 (CGA) Chair/oac-pq-pjeyh transfer: 4 (min) Toilet transfer: 4 (min) Car transfer: 4 (min) Walk 10 feet: 4 (min) Walk 50 feet with two turns: 4 (min) 1 step (curb): 4 (CGA) Wheel 50ft w/2 turns: 4 Wheel 150 feet: 4 PT Assisted Goals Assisted Goals PT Maintenance Of Way Clerk Goals Time Frame: Jun 16, 2020 Roll Left & Right (QC): 5 Sit to Lying (QC): 5 Lying-Sitting on Side/Bed(QC): 5 Sit to Stand (QC): 5 Chair/Gxl-mn-Rpdfn Xfer(QC): 4 (CGA) Toilet Transfer (QC): 4 (CGA) Car Transfer (QC): 4 (CGA) Does the Patient Walk: Yes Walk 10 feet (QC): 4 (CGA) Walk 50ft with 2 Turns (QC): 4 (CGA) Walk 150 ft (QC): 4 (CGA) Walking 10ft on Uneven Surface: 4 (CGA) 1 Step (curb) (QC): 4 (CGA) 4 Steps (QC): 4 (CGA) 12 Steps (QC): 88 Picking up an Object (QC): 4 (CGA) Does the Pt use WC or Scooter?: Yes Wheel 50 feet with 2 turns (QC: 6 Type: Manual Wheel 150 feet: 6 Type: Manual PT Plan Problem List Problem List: Activity Tolerance, Functional Strength, Safety, Balance, Gait, Transfer, Bed Mobility, ROM Treatment/Plan Treatment Plan: Continue Plan of Care Treatment Plan: Bed Mobility, Education, Functional Activity Dutch, Functional Strength, Group Therapy, Gait, Safety, Therapeutic Exercise, Transfers Treatment Duration: Jun 16, 2020 Frequency: At least 5 of 7 days/Wk (IRF) Estimated Hrs Per Day: 1.5 hours per day Patient and/or Family Agrees t: Yes Safety Risks/Education Patient Education: Gait Training, Transfer Techniques, Correct Positioning, W/C Management, Safety Issues Teaching Recipient: Patient Teaching Methods: Demonstration, Discussion Response to Teaching: Verbalize Understanding, Return Demonstration, Reinforcement Needed Time/GCodes Time In: 1300 Time Out: 1330 Total Billed Treatment Time: 30 Total Billed Treatment 1 visit: FA: 15' EX: 15' IAN PETTY PT May 28, 2020 14:18
--- NOTE | 2020-05-28 14:25 | Occupational Ther Daily Note ---
OT Current Status-Daily Note Subjective Pt laying in bed, states the girlfriend that was supposed to visit him never showed up, and she has not attempted to contact him since the morning tx. Agreeable to therapy tx, but declines going out of his room without his phone. ADL-Treatment Therapy Code Descriptions/Definitions Functional [place] Measure: 0=Not Assessed/NA 4=Minimal Assistance 1=Total Assistance 5=Supervision or Setup 2=Maximal Assistance 6=Modified [place] 3=Moderate Assistance 7=Complete IndependenceSCALE: Activities may be completed with or without assistive devices. 6-Hcxbimyqtt-xiszckr completes the activity by him/herself with no assistance from a helper. 5-Set-up or Clean-up Assistance-helper sets up or cleans up; patient completes activity. [place] assists only prior to or following the activity. 4-Supervision or Touching Assistance-helper provides verbal cues and/or touching/steadying and/or contact guard assistance as patient completes activity. Assistance may be provided throughout the activity or intermittently. 3-Partial/Moderate Assistance-helper does LESS THAN HALF the effort. [place] lifts, holds or supports trunk or limbs, but provides less than half the effort. 2-Substantial/Maximal Assistance-helper does MORE THAN HALF the effort. [place] lifts or holds trunk or limbs and provides more than half the effort. 1-Fcloukgkn-onplfp does ALL the effort. Patient does none of the effort to complete the activity. Or, the assistance of 2 or more helpers is required for the patient to complete the activity. If activity was not attempted, code reason: 7-Patient Refused. 9-Not Applicable-not attempted and the patient did not perform the activity before the current illness, exacerbation or injury. 10-Not Attempted due to Environmental Limitations-(lack of equipment, weather restraints, etc.). 88-Not Attempted due to Medical Conditions or Safety Concerns. Other Treatment OT/PT cotreat due to skill of 2 clinicians required which a rehabilitation construction specialist could not perform, in order to coordinate UE/LEs with tasks, to decrease fall risk, due to R hemiparesis, and pt's limitations in strength, activity tolerance, mobility and transfers. OT focused on UE placement, cues for sequencing and safety, ADLs, PT focused on LE placement, standing balance, mobility/transfers, and overall gross movement. Pt transferred supine to sit EOB, then SPT to w/c. Pt states need to urinate, using GBs to transfer to toilet. When standing for clothing management, pt accused this therapist of attempting to push him over, this OT informed pt that she was assisting with his balance for his safety and was not trying to push him over. OT cued pt to stand up straight and get hips underneath him (pt bent forward at hips). Pt returned to w/c. OT instructed pt to go to therapy gym, but pt asked if his phone was with him. OT encouraged pt to leave his phone in his room, as this session was only 30 mins long. Pt refused, stating he needed his phone in case his girlfriend tried to contact him. Once pt had his phone, he propelled w/c to therapy gym. Pt stood at GBs and completed fine motor task, removing beads from moderate resistance theraputty using BUEs. PT assisted with standing balance with task. Pt required cues to continue to use his R hand with task. Pt able to remove most beads from putty, but required a rest break prior to removing remainder of beads seated. Pt propelled back to his room, transferring to bed. Post tx, pt laying in bed, call light in reach and all needs met. Education OT Patient Education: Correct positioning, Modified ADL techniques, Progress toward Goal/Update tx plan, Purpose of tx/functional activities, Rehab process, Safety issues, Transfer techniques Teaching Recipient: Patient Teaching Methods: Discussion Response to Teaching: Verbalize Understanding OT Short Term Goals Short Term Goals Time Frame: Jun 02, 2020 Eatin Oral hygiene: 88 Toileting hygiene: 3 Shower/bathe self: 3 Upper body dressin Lower body dressin Putting on/taking off footwear: 3 OT Senior Living Goals Senior Living Goals Time Frame: Jun 16, 2020 Eating (QC): 6 Oral Hygiene (QC): 88 Toileting Hygiene (QC): 6 Shower/Bathe Self (QC): 4 Upper Body Dressing (QC): 6 Lower Body Dressing (QC): 6 On/Off Footwear (QC): 6 Additional Goals: 1-Demonstrate ADL Tasks, 2-Verbalize Understanding, 3- ImproveStrength/Dutch 1=Demonstrate adherence to instructed precautions during ADL tasks. 2=Patient will verbalize/demonstrate understanding of assistive devices/modifications for ADL. 3=Patient will improve strength/tolerance for activity to enable patient to perform ADL's. OT Education/Plan Problem List/Assessment Assessment: Decreased Activ Tolerance, Decreased UE Strength, Impaired Funct Balance, Impaired I ADL's, Impaired Self-Care Skills, Restricted Funct UE ROM Discharge Recommendations Plan/Recommendations: Continue POC Treatment Plan/Plan of Care Patient would benefit from OT for education, treatment and training to promote independence in ADL's, mobility, safety and/or upper extremity function for ADL's. Plan of Care: ADL Retraining, Functional Mobility, Group Exercise/Act as Ind, UE Funct Exercise/Act Treatment Duration: Jun 16, 2020 Frequency: At least 5 of 7 days/Wk (IRF) Estimated Hrs Per Day: 1.5 hours per day Agreement: Yes Rehab Potential: Fair Time/GCodes Start Time: 13:00 Stop Time: 13:30 Total Time Billed (hr/min): 30 Billed Treatment Time cotreat x30' 1, FA 2 MILAD HENDRICKSON OT May 28, 2020 14:25
[2020-05-28 17:12] VITALS: BP 119/70
[2020-05-28] MEDS: BACLOFEN 10 MG (LIORESAL) TAB PO PRN (21:09)
[2020-05-28] MEDS: FLUTICASONE NASAL SPRAY (FLONASE) 16 GM BTL NS SCH (21:13)
[2020-05-29] MEDS: CATHETER FLUSH 10 ML SYR IV SCH ×3 (05:44→21:29)
[2020-05-29 06:00] VITALS: BP 119/60
[2020-05-29] MEDS: UMECLIDINIUM BROMIDE (INCRUSE ELLIPTA) 7'S IH PRN (08:28)
[2020-05-29] MEDS: DOCUSATE SODIUM 100 MG (COLACE) CAP PO SCH ×2 (09:00→21:24)
[2020-05-29] MEDS: polyethylene glycoL POWDER 17 GM (MIRALAX) PACK PO SCH ×2 (09:00→19:35)
[2020-05-29] MEDS: SENNA W/DOCUSATE (SENOKOT S) TABLET PO SCH ×2 (09:00→21:24)
[2020-05-29 09:15] VITALS: BP 124/76
[2020-05-29] MEDS: ASPIRIN 81 MG CHEW (CHILDREN'S ASA) PO SCH (10:05)
[2020-05-29] MEDS: CLOPIDOGREL 75 MG (PLAVIX) TABLET PO SCH (10:05)
[2020-05-29] MEDS: ENOXAPARIN 40 MG/0.4 ML (LOVENOX) SYR SC SCH (10:05)
--- NOTE | 2020-05-29 10:05 | Physical Therapy Daily Note ---
PT Daily Note-Current Subjective Patient reports no pain at start of treatment. Patient consented to therapy. Patient needs dressed uppers and lowers, does so with max assist. Appearance Patient supine in bed post tx, with call button within reach and tray table on L side. All needs met. Mental Status Patient Orientation: Person, Place, Time Transfers SCALE: Activities may be completed with or without assistive devices. 3-Xclvenqnax-hkhrjgo completes the activity by him/herself with no assistance from a helper. 5-Set-up or Clean-up Assistance-helper sets up or cleans up; patient completes activity. [place] assists only prior to or following the activity. 4-Supervision or Touching Assistance-helper provides verbal cues and/or touching/steadying and/or contact guard assistance as patient completes activity. Assistance may be provided throughout the activity or intermittently. 3-Partial/Moderate Assistance-helper does LESS THAN HALF the effort. [place] lifts, holds or supports trunk or limbs, but provides less than half the effort. 2-Substantial/Maximal Assistance-helper does MORE THAN HALF the effort. [place] lifts or holds trunk or limbs and provides more than half the effort. 0-Oyvqqhvif-yamkod does ALL the effort. Patient does none of the effort to compl ete the activity. Or, the assistance of 2 or more helpers is required for the patient to complete the activity. If activity was not attempted, code reason: 7-Patient Refused. 9-Not Applicable-not attempted and the patient did not perform the activity before the current illness, exacerbation or injury. 10-Not Attempted due to Environmental Limitations-(lack of equipment, weather restraints, etc.). 88-Not Attempted due to Medical Conditions or Safety Concerns. Lying to Sitting/Side of Bed(Q: 3 Sit to Stand (QC): 3 (min to CGA) Weight Bearing Full Weight Bearing Full Weight Bearing Gait Training Does the Patient Walk?: Yes Distance: 20', 10' Walk 10 feet (QC): 3 Gait Persons Needed: 1 Gait Assistive Device: FWW Patient ambulated 20' before needing rest break. He crouched down at end of ambulation cycle, saying "his L knee just buckled." Patient was only able to ambulate a few more feet after that before reporting he was too tired. Patient requires Min Assist with gait. Exercises NuStep Minutes: 15 NuStep Workload: 4 Treatments LE strengthening, gait training, transfers Assessment Current Status: Fair Progress Patient demonstrated less assistance required for sit <-> stand, but intermittently required more assistance with movement. Cues for reaching back for wheelchair are needed during descent, in addition to cues to push off from surface to ascend. PT Short Term Goals Short Term Goals Time Frame: Jun 02, 2020 Roll Left & Right: 4 (SBA) Sit to lyin (SBA) Lying to sitting on side of be: 4 (SBA) Sit to stand: 4 (CGA) Chair/bij-sj-snaft transfer: 4 (min) Toilet transfer: 4 (min) Car transfer: 4 (min) Walk 10 feet: 4 (min) Walk 50 feet with two turns: 4 (min) 1 step (curb): 4 (CGA) Wheel 50ft w/2 turns: 4 Wheel 150 feet: 4 PT [facility] Goals Senior Quality Analyst Goals PT [facility] Goals Time Frame: Jun 16, 2020 Roll Left & Right (QC): 5 Sit to Lying (QC): 5 Lying-Sitting on Side/Bed(QC): 5 Sit to Stand (QC): 5 Chair/Zul-te-Zqrqb Xfer(QC): 4 (CGA) Toilet Transfer (QC): 4 (CGA) Car Transfer (QC): 4 (CGA) Does the Patient Walk: Yes Walk 10 feet (QC): 4 (CGA) Walk 50ft with 2 Turns (QC): 4 (CGA) Walk 150 ft (QC): 4 (CGA) Walking 10ft on Uneven Surface: 4 (CGA) 1 Step (curb) (QC): 4 (CGA) 4 Steps (QC): 4 (CGA) 12 Steps (QC): 88 Picking up an Object (QC): 4 (CGA) Does the Pt use WC or Scooter?: Yes Wheel 50 feet with 2 turns (QC: 6 Type: Manual Wheel 150 feet: 6 Type: Manual PT Plan Problem List Problem List: Activity Tolerance, Functional Strength, Safety, Balance, Gait, Transfer, Bed Mobility, ROM Treatment/Plan Treatment Plan: Continue Plan of Care Treatment Plan: Bed Mobility, Education, Functional Activity Dutch, Functional Strength, Group Therapy, Gait, Safety, Therapeutic Exercise, Transfers Treatment Duration: Jun 16, 2020 Frequency: At least 5 of 7 days/Wk (IRF) Estimated Hrs Per Day: 1.5 hours per day Patient and/or Family Agrees t: Yes Safety Risks/Education Patient Education: Gait Training, Transfer Techniques, Correct Positioning, Safety Issues Teaching Recipient: Patient Teaching Methods: Demonstration, Discussion Response to Teaching: Reinforcement Needed Time/GCodes Time In: 0900 Time Out: 1000 Total Billed Treatment Time: 60 Total Billed Treatment 1 visit EX 15' FA 45' IAN PETTY PT May 29, 2020 10:05
[2020-05-29] MEDS: lisINopril 20 MG (PRINIVIL) TABLET PO SCH (10:06)
[2020-05-29] MEDS: GABAPENTIN 300 MG (NEURONTIN) CAP PO SCH ×3 (10:06→21:24)
[2020-05-29] MEDS: amLODIPine 5 MG (NORVASC) TAB PO SCH (10:06)
--- NOTE | 2020-05-29 10:24 | Podiatry Progress Note ---
Standard Progress Note Progress Notes/Assess & Plan Date Seen by a Provider: May 29, 2020 Time Seen by a Provider: 10:23 Progress/Assessment & Plan Consultation dictated. Foot care given. Follow up as needed. Final Diagnosis Onychomycosis, Xerosis, Peripheral Neuropathy, Right sided muscle weakness RITU SHERMAN DPM May 29, 2020 10:24
[2020-05-29] MEDS: FLUTICASONE NASAL SPRAY (FLONASE) 16 GM BTL NS SCH ×2 (11:43→21:27)
--- NOTE | 2020-05-29 11:44 | Occupational Ther Daily Note ---
OT Current Status-Daily Note Subjective Pt laying in bed, agreeable to OT tx. ADL-Treatment Therapy Code Descriptions/Definitions Functional [place] Measure: 0=Not Assessed/NA 4=Minimal Assistance 1=Total Assistance 5=Supervision or Setup 2=Maximal Assistance 6=Modified [place] 3=Moderate Assistance 7=Complete IndependenceSCALE: Activities may be completed with or without assistive devices. 0-Pkbzvykgbx-ngxkyrr completes the activity by him/herself with no assistance from a helper. 5-Set-up or Clean-up Assistance-helper sets up or cleans up; patient completes activity. [place] assists only prior to or following the activity. 4-Supervision or Touching Assistance-helper provides verbal cues and/or touching/steadying and/or contact guard assistance as patient completes activity. Assistance may be provided throughout the activity or intermittently. 3-Partial/Moderate Assistance-helper does LESS THAN HALF the effort. [place] lifts, holds or supports trunk or limbs, but provides less than half the effort. 2-Substantial/Maximal Assistance-helper does MORE THAN HALF the effort. [place] lifts or holds trunk or limbs and provides more than half the effort. 0-Ofhjzmkem-cptrxm does ALL the effort. Patient does none of the effort to com plete the activity. Or, the assistance of 2 or more helpers is required for the patient to complete the activity. If activity was not attempted, code reason: 7-Patient Refused. 9-Not Applicable-not attempted and the patient did not perform the activity before the current illness, exacerbation or injury. 10-Not Attempted due to Environmental Limitations-(lack of equipment, weather restraints, etc.). 88-Not Attempted due to Medical Conditions or Safety Concerns. Shower/Bathe Self (QC): 3 (Min A, assist to wash buttocks. Pt required CGA in stand at GBs. Pt able to use LH sponge to wash LUE and lower legs with min verbal cues.) Upper Body Dressing (QC): 4 (SBA, pt able to don/doff slab puller shirt) Lower Body Dressing (QC): 3 (Mod A, pt required assist doffing BLEs, assist donning RLE. Min A standing balance as pt completed pant hike.) On/Off Footwear: 2 (Pt able to doff LLE sock, able to doff RLE sock as OT assisted wtih positioning pt's leg. Pt donned LLE sock, assist with RLE.) Toileting Hygiene (QC): 4 (CGA in stand for pant hike, pt able to manage clothing.) Toilet Transfer (QC): 4 (CGA on/off toilet.) Other Treatment Pt laying in bed, transferred supine to sit EOB, then transferred to w/c. Pt taken into bathroom, transferring to toilet, he completed toileting, transferred to w/c, then SC. He completed showering, min verbal cues to use LH sponge in order to wash BLEs and LUE. Pt transferred back to w/c to complete dressing. Pt requests to return to bed, transferred w/c to EOB, CGA, then supine with SBA. Pt on phone with dietary to order lunch. Post tx, pt in bed, call light in reach and all needs met. Education OT Patient Education: Correct positioning, Modified ADL techniques, Progress toward Goal/Update tx plan, Purpose of tx/functional activities Teaching Recipient: Patient Teaching Methods: Discussion Response to Teaching: Verbalize Understanding OT Short Term Goals Short Term Goals Time Frame: Jun 02, 2020 Eatin Oral hygiene: 88 Toileting hygiene: 3 Shower/bathe self: 3 Upper body dressin Lower body dressin Putting on/taking off footwear: 3 OT Halfway Goals Appliance Mechanic Goals Time Frame: Jun 16, 2020 Eating (QC): 6 Oral Hygiene (QC): 88 Toileting Hygiene (QC): 6 Shower/Bathe Self (QC): 4 Upper Body Dressing (QC): 6 Lower Body Dressing (QC): 6 On/Off Footwear (QC): 6 Additional Goals: 1-Demonstrate ADL Tasks, 2-Verbalize Understanding, 3- ImproveStrength/Dutch 1=Demonstrate adherence to instructed precautions during ADL tasks. 2=Patient will verbalize/demonstrate understanding of assistive devices/modifications for ADL. 3=Patient will improve strength/tolerance for activity to enable patient to perform ADL's. OT Education/Plan Problem List/Assessment Assessment: Decreased Activ Tolerance, Decreased UE Strength, Impaired Funct Balance, Impaired I ADL's, Impaired Self-Care Skills, Restricted Funct UE ROM Discharge Recommendations Plan/Recommendations: Continue POC Treatment Plan/Plan of Care Patient would benefit from OT for education, treatment and training to promote independence in ADL's, mobility, safety and/or upper extremity function for ADL's. Plan of Care: ADL Retraining, Functional Mobility, Group Exercise/Act as Ind, UE Funct Exercise/Act Treatment Duration: Jun 16, 2020 Frequency: At least 5 of 7 days/Wk (IRF) Estimated Hrs Per Day: 1.5 hours per day Agreement: Yes Rehab Potential: Fair Time/GCodes Start Time: 10:30 Stop Time: 11:30 Total Time Billed (hr/min): 60 Billed Treatment Time 1, ADL 4 MILAD HENDRICKSON OT May 29, 2020 11:44
--- NOTE | 2020-05-29 12:06 | Cardiology Progress Note ---
Subjective Date Seen by Provider: May 29, 2020 Time Seen by Provider: 12:06 Subjective/Events-last exam Patient was laying down in bed, no new complaint Review of Systems General: No Chills, No Night Sweats, No Fatigue, No Malaise, No Appetite, No Other HEENT: No Head Aches, No Visual Changes, No Eye Pain, No Ear Pain, No Dysphasia, No Sinus Congestion, No Post Nasal Drip, No Sore Throat, No Other Pulmonary: No Dyspnea, No Cough, No Pleuritic Chest Pain, No Other Cardiovascular: No: Chest Pain, Palpitations, Orthopnea, Paroxysmal Noc. Dyspnea, Edema, Lt Headedness, Other Objective-Cardiology Exam Last Set of Vital Signs Vital Signs 05/29/20 05/29/20 05/29/20 06:00 08:28 09:00 Temp 36.4 Pulse 62 Resp 18 B/P (MAP) 119/60 (79) Pulse Ox 92 O2 Delivery Room Air Capillary Refill : I&O Intake and Output 05/29/20 00:00 Intake Total 1690 ml Output Total 1825 ml Balance -135 ml Intake Oral 1690 ml Output Urine Total 1825 ml # Voids 4 # Bowel Movements 1 General: Alert, Oriented X3, Cooperative HEENT: Atraumatic, PERRLA Neck: Supple, No JVD, No Thyromegaly Lungs: Clear to Auscultation, Normal Air Movement Heart: Regular Rate, Normal S1, Normal S2 Abdomen: Soft, No Tenderness Extremities: No Clubbing, No Edema Skin: No Rashes, No Significant Lesion Neuro: Normal Speech, Other (right sided hemiparesis) A/P-Cardiology Admission Diagnosis CVA CAD HTN HLP Assessment/Plan Recurrent CVA d/t Carotid artery stenosis, had a stroke in December 2019 resulted in right-sided weakness, had left-sided weakness on this admission. He had history of carotid stenting at [facility] in January 2020 after the first stroke, he is known to have complete occlusion of the left common and internal carotid arteries, stent of the right carotid artery. Most recent CTA head done 05/23/20 showing internal thrombus within the right internal carotid artery stent which is slightly less prominent than on the prior examination. [facility] neurology consulted and recommend continuation of ASA and Plavix. Does not warrant intervention at this time. Coronary artery disease, history of cardiac catheterization in 2013 showing patent stents in the proximal LAD, known to have Promus element 2.75 by 16mm placed in July 2012, the proximal stent is Premier 3 x 16 placed in June 2013, had 50-60 percent mid LAD stenosis, clinically stable, continue to monitor. Maintained on ASA and Plavix. Hypertension, controlled, continue to monitor. Hyperlipidemia, monitor lipids Tobaccoism, educated on smoking cessation H/O marijuana and heavy EtOH use Methamphetamine abuse; (+) this admission H/O hepatitis C followed at the [facility] COPD Chronically abnormal EKG that shows LVH with repolarization abnormalities Patient was seen and evaluated with Ebony, examination performed, management plan was discussed, agree with the current scribed note, I made few changes to the note using Italic font Patient was seen and evaluated this morning, feeling better No new complaint Continue with current treatment DEMETRIO ALVAREZ MD May 29, 2020 12:06
--- NOTE | 2020-05-29 12:23 | PM&R Progress Note ---
Subjective HPI/CC On Admission Date Seen by Provider: May 29, 2020 Time Seen by Provider: 12:30 Subjective/Events-last exam 05/29/20: Patient remains stable Labile moods are from meth use hx Asking if he could go outside with his friend tomorrow and I stated likely not due to his meth use and could take [place] at that time 05/28/20: Labile behavior h/o meth use has been a factor in this behavior Obsessed about where his girlfriend is Lungs are clear 05/27/20: Pt doing a lot better Slept in today Working with therapy Right-sided weakness is significant Will work through things as they come Hopefully wont leave AMA this time Review of Systems General: Fatigue, Malaise Neurological: Weakness Objective Exam Vital Signs Vital Signs Date Time Temp Pulse Resp B/P (MAP) Pulse Ox O2 Delivery O2 Flow Rate FiO2 05/30/20 00:08 95 Room Air 05/29/20 17:08 36.8 65 16 121/60 (80) Capillary Refill : General Appearance: No Apparent Distress, WD/WN, Chronically ill, Thin HEENT: PERRL/EOMI, Normal ENT Inspection, Pharynx Normal Neck: Full Range of Motion, Normal Inspection, Non Tender, Supple, Carotid Bruit Respiratory: Chest Non Tender, Lungs Clear, Normal Breath Sounds, No Accessory Muscle Use, No Respiratory Distress Cardiovascular: Regular Rate, Rhythm, No Edema, No Gallop, No JVD, No Murmur, Normal Peripheral Pulses Gastrointestinal: Normal Bowel Sounds, No Organomegaly, No Pulsatile Mass, Non Tender, Soft Back: Normal Inspection, No CVA Tenderness, No Vertebral Tenderness Extremity: Normal Capillary Refill, Normal Inspection, Normal Range of Motion, Non Tender, No Calf Tenderness, No Pedal Edema Neurologic/Psychiatric: Alert, Oriented x3, Normal Mood/Affect, Motor Weakness (right sided weakness 3/5 leg and arm) Skin: Normal Color, Warm/Dry Lymphatic: No Adenopathy Results/Procedures Lab Patient resulted labs reviewed. FIM Transfers Therapy Code Descriptions/Definitions Functional [place] Measure: 0=Not Assessed/NA 4=Minimal Assistance 1=Total Assistance 5=Supervision or Setup 2=Maximal Assistance 6=Modified [place] 3=Moderate Assistance 7=Complete IndependenceSCALE: Activities may be completed with or without assistive devices. 4-Wdqzkphaxf-zdtgtpi completes the activity by him/herself with no assistance from a helper. 5-Set-up or Clean-up Assistance-helper sets up or cleans up; patient completes activity. [place] assists only prior to or following the activity. 4-Supervision or Touching Assistance-helper provides verbal cues and/or touching/steadying and/or contact guard assistance as patient completes activity. Assistance may be provided throughout the activity or intermittently. 3-Partial/Moderate Assistance-helper does LESS THAN HALF the effort. [place] lifts, holds or supports trunk or limbs, but provides less than half the effort. 2-Substantial/Maximal Assistance-helper does MORE THAN HALF the effort. [place] lifts or holds trunk or limbs and provides more than half the effort. 6-Tihyzuzcl-ftxfer does ALL the effort. Patient does none of the effort to complete the activity. Or, the assistance of 2 or more helpers is required for the patient to complete the activity. If activity was not attempted, code reason: 7-Patient Refused. 9-Not Applicable-not attempted and the patient did not perform the activity before the current illness, exacerbation or injury. 10-Not Attempted due to Environmental Limitations-(lack of equipment, weather restraints, etc.). 88-Not Attempted due to Medical Conditions or Safety Concerns. Roll Left to Right (QC): 4 Sit to Stand (QC): 3 (min to CGA) Chair/Ehc-qz-Ykwaz Xfer(QC): 4 Car Transfer (QC): 3 (mod) Gait Training Does the Patient Walk?: Yes Distance: 20', 10' Walk 10 feet (QC): 3 Walk 50 ft with 2 Turns(QC): 88 Walk 150 ft (QC): 88 Walking 10ft/uneven surface-QC: 88 Gait Persons Needed: 1 Gait Assistive Device: FWW Wheelchair Training Does the Pt Use a Wheelchair?: Yes Wheel 50 ft with 2 turns (QC): 4 Wheel 150 ft (QC): 4 Type of Wheelchair: Manual Stair Training 1 Step (curb) (QC): 88 4 Steps (QC): 88 12 Steps (QC): 88 Balance Picking up an Object (QC): 88 ADL-Treatment Eating (QC): 5 Oral Hygiene (QC): 7 (Pt declined as he does not have any teeth.) Shower/Bathe Self (QC): 3 (Min A, assist to wash buttocks. Pt required CGA in stand at GBs. Pt able to use LH sponge to wash LUE and lower legs with min verbal cues.) Upper Body Dressing (QC): 4 (SBA, pt able to don/doff pulley man shirt) Lower Body Dressing (QC): 3 (Mod A, pt required assist doffing BLEs, assist donning RLE. Min A standing balance as pt completed pant hike.) On/Off Footwear (QC): 2 (Pt able to doff LLE sock, able to doff RLE sock as OT assisted wtih positioning pt's leg. 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 05/03/20 Plan: IRF protocol Monitor closely Supportive care Hope does not leave AMA 05/28/20: Monitor closely Very labile behavior 05/29/20: Monitor closely Meth use has caused labile behavior (1) CVA (cerebral vascular accident) Status: Acute (2) Methamphetamine abuse Status: Acute (3) HLD (hyperlipidemia) Status: Chronic (4) Carotid stenosis Status: Acute (5) HTN (hypertension) Status: Acute (6) Cannabis abuse Status: Acute (7) Hemiparesis of right dominant side Status: Acute (8) Very heavy cigarette smoker (40 or more per day) Status: Acute (9) Illicit drug use Status: Acute (10) Hypertension (11) COPD (chronic obstructive pulmonary disease) PRUDENCE BECK DO May 29, 2020 12:23
--- NOTE | 2020-05-29 13:02 | CONSULTATION REPORT ---
DATE OF SERVICE: REASON FOR CONSULTATION: Foot care. HISTORY OF PRESENT ILLNESS: This 65-year-old male was admitted through the ER services for right sided weakness. He has had cerebrovascular accident resulting in the weakness. He is going [facility] at this time. He has difficulty reaching for and caring for his feet. PAST SURGERY AND MEDICAL HISTORY: Angioplasty, appendectomy, cardiac history, coronary artery stents, eye surgery, orthopedic surgery, vascular surgery, coronary artery disease, myocardial infarction. Two previous strokes prior to the current one, hypercholesterolemia, hypertension, peripheral vascular disease, neuropathy, and TIA, hepatitis, degenerative disk disease and chronic back pain fractures, bilateral vision loss, hard of hearing, skin cancer, anxiety, violent behavior, depression. ALLERGIES: He has no known drug allergies. CURRENT MEDICATIONS: Listed on the patient's chart. SOCIAL HISTORY: The patient is a daily marijuana user, meth use, but denies IV use. He does drink whiskey. PHYSICAL EXAMINATION: GENERAL: This is a well-developed male, in no apparent distress. EXTREMITIES: He has 2/4 dorsalis pedis pulse on the right, 0/4 on the left, 2/4 posterior tibial pulse noted bilaterally. Cap refill time is less than 3 seconds to the hallux bilaterally. NEUROLOGIC: The patient has diminished protective sensation with 10 gram monofilament wire examination bilaterally. There is diminished vibratory sensation and deep tendon reflexes to the Achilles tendon on the lower extremity bilaterally. DERMATOLOGIC: The patient has thick yellow dystrophic toenails with subungual debris associated with R1, 3, 4, 5, L1, 2, 4, 5 digits. Dry scaly skin noted to the plantar aspect of the foot bilaterally. MUSCULOSKELETAL FINDINGS: The patient has 1/5 muscle strength to the four major quadrants of the foot on the right and 4/5 muscle strength to the four major quadrants of the foot on the left. ASSESSMENT: 1. Muscle weakness, right. 2. Peripheral neuropathy. 3. Onychomycosis. PLAN: Various treatment options were discussed with the patient today. We debrided his toenails manually mechanically. Betadine applied to R1, 3, 4, 5, L1, 2, 4, 5 digits. I highly recommend the patient to apply lotion to his dry xerotic skin daily with the exception between the toes. He will continue with physical therapy for strengthening of the right-sided weakness. We will see the patient back in the office as necessary. Job ID: [id number] DocumentID: [id number] Dictated Date: 05/29/2020 10:23:01 [employer] Ironworker Date: 05/29/2020 13:02:10 Dictated By: MIRIAN POOL
[2020-05-29] MEDS: BACLOFEN 10 MG (LIORESAL) TAB PO PRN ×2 (13:55→21:26)
--- NOTE | 2020-05-29 14:18 | Occupational Ther Daily Note ---
OT Current Status-Daily Note Subjective Pt agreeable to OT/PT cotreat. ADL-Treatment Therapy Code Descriptions/Definitions Functional [place] Measure: 0=Not Assessed/NA 4=Minimal Assistance 1=Total Assistance 5=Supervision or Setup 2=Maximal Assistance 6=Modified [place] 3=Moderate Assistance 7=Complete IndependenceSCALE: Activities may be completed with or without assistive devices. 1-Wikioihzxr-zdxrwka completes the activity by him/herself with no assistance from a helper. 5-Set-up or Clean-up Assistance-helper sets up or cleans up; patient completes activity. [place] assists only prior to or following the activity. 4-Supervision or Touching Assistance-helper provides verbal cues and/or touching/steadying and/or contact guard assistance as patient completes activity. Assistance may be provided throughout the activity or intermittently. 3-Partial/Moderate Assistance-helper does LESS THAN HALF the effort. [place] lifts, holds or supports trunk or limbs, but provides less than half the effort. 2-Substantial/Maximal Assistance-helper does MORE THAN HALF the effort. [place] lifts or holds trunk or limbs and provides more than half the effort. 5-Qhtgphgkj-mjklzs does ALL the effort. Patient does none of the effort to complete the activity. Or, the assistance of 2 or more helpers is required for the patient to complete the activity. If activity was not attempted, code reason: 7-Patient Refused. 9-Not Applicable-not attempted and the patient did not perform the activity befo re the current illness, exacerbation or injury. 10-Not Attempted due to Environmental Limitations-(lack of equipment, weather re straints, etc.). 88-Not Attempted due to Medical Conditions or Safety Concerns. Other Treatment OT/PT cotreat due to skill of 2 clinicians required which a rehabilitation coordinator could not perform, in order to coordinate UE/LEs with tasks, to decrease fall risk, due to R hemiparesis, and pt's limitations in strength, activity tolerance, mobility and transfers. OT focused on UE placement, cues for sequencing and safety, ADLs, PT focused on LE placement, standing balance, mobility/transfers, and overall gross movement. Pt transferred supine to sit EOB, then stood at FWW and performed functional mobility towards doorway, w/c follow. Pt reports his knees gave out, sitting quickly into w/c. Pt propelled w/c to therapy gym, standing at parallel bars to complete fine motor task. Pt instructed to remove wooden peg from board, manipulate peg, and return to board in upside down position. Pt completed x5, requiring max A with manipulation. Pt requests seated rest break. Pt performed functional mobility with FWW, w/c follow, skilled cues for UE placement with transfers. Pt ambulated short distance before sitting in w/c. Propelled self back to room, transferring back to bed via SPT. Post tx, pt laying in bed, call light in reach and all needs met. Education OT Patient Education: Correct positioning, Energy conservation, Modified ADL techniques, Progress toward Goal/Update tx plan, Purpose of tx/functional activities Teaching Recipient: Patient Teaching Methods: Discussion Response to Teaching: Verbalize Understanding OT Short Term Goals Short Term Goals Time Frame: Jun 02, 2020 Eatin Oral hygiene: 88 Toileting hygiene: 3 Shower/bathe self: 3 Upper body dressin Lower body dressin Putting on/taking off footwear: 3 OT Longterm Goals Assembler 1St Shift Goals Time Frame: Jun 16, 2020 Eating (QC): 6 Oral Hygiene (QC): 88 Toileting Hygiene (QC): 6 Shower/Bathe Self (QC): 4 Upper Body Dressing (QC): 6 Lower Body Dressing (QC): 6 On/Off Footwear (QC): 6 Additional Goals: 1-Demonstrate ADL Tasks, 2-Verbalize Understanding, 3- ImproveStrength/Dutch 1=Demonstrate adherence to instructed precautions during ADL tasks. 2=Patient will verbalize/demonstrate understanding of assistive devices/modifications for ADL. 3=Patient will improve strength/tolerance for activity to enable patient to perform ADL's. OT Education/Plan Problem List/Assessment Assessment: Decreased Activ Tolerance, Decreased UE Strength, Impaired Funct Balance, Impaired I ADL's, Impaired Self-Care Skills, Restricted Funct UE ROM Discharge Recommendations Plan/Recommendations: Continue POC Treatment Plan/Plan of Care Patient would benefit from OT for education, treatment and training to promote independence in ADL's, mobility, safety and/or upper extremity function for ADL's. Plan of Care: ADL Retraining, Functional Mobility, Group Exercise/Act as Ind, UE Funct Exercise/Act Treatment Duration: Jun 16, 2020 Frequency: At least 5 of 7 days/Wk (IRF) Estimated Hrs Per Day: 1.5 hours per day Agreement: Yes Rehab Potential: Fair Time/GCodes Start Time: 13:00 Stop Time: 13:30 Total Time Billed (hr/min): 30 Billed Treatment Time [place] x30' 1, FA 2 MILAD HENDRICKSON OT May 29, 2020 14:18
--- NOTE | 2020-05-29 14:52 | Physical Therapy Daily Note ---
PT Daily Note-Current Subjective Patient reported no pain pre tx. Patient was supine in bed, and was agreeable to therapy. Appearance Patient supine in bed post tx, with call button within reach, tray table nearby, and all needs met. Mental Status Patient Orientation: Person, Place, Time, Normal For Age Transfers SCALE: Activities may be completed with or without assistive devices. 5-Lvvkhtrjfg-cloozem completes the activity by him/herself with no assistance from a helper. 5-Set-up or Clean-up Assistance-helper sets up or cleans up; patient completes activity. [place] assists only prior to or following the activity. 4-Supervision or Touching Assistance-helper provides verbal cues and/or touching/steadying and/or contact guard assistance as patient completes activity. Assistance may be provided throughout the activity or intermittently. 3-Partial/Moderate Assistance-helper does LESS THAN HALF the effort. [place] lifts, holds or supports trunk or limbs, but provides less than half the effort. 2-Substantial/Maximal Assistance-helper does MORE THAN HALF the effort. [place] lifts or holds trunk or limbs and provides more than half the effort. 1-Pfispzlvd-woavaw does ALL the effort. Patient does none of the effort to complete the activity. Or, the assistance of 2 or more helpers is required for the patient to complete the activity. If activity was not attempted, code reason: 7-Patient Refused. 9-Not Applicable-not attempted and the patient did not perform the activity before the current illness, exacerbation or injury. 10-Not Attempted due to Environmental Limitations-(lack of equipment, weather restraints, etc.). 88-Not Attempted due to Medical Conditions or Safety Concerns. Roll Left & Right (QC): 4 Sit to Lying (QC): 4 Lying to Sitting/Side of Bed(Q: 4 Sit to Stand (QC): 4 CGA Weight Bearing Full Weight Bearing Full Weight Bearing Gait Training Does the Patient Walk?: Yes Distance: 20', 10' Walk 10 feet (QC): 3 Gait Assistive Device: FWW Patient demonstrated increased knee buckling with steps than he had previous morning. He had more of a "step-to" gait pattern, and was not as smooth with his steps, bilaterally. Wheelchair Training Does the Pt Use a Wheelchair?: Yes Wheel 50 ft with 2 turns (QC): 6 Decreased demonstration of R neglect during today's session with w/c navigation. Neuromuscular Static balance training while using UE's to maneuver objects Treatments Co-treated with OT secondary to patient impairments including high fall risk, decreased balance, and impaired UE function. PT focused on gait training, transfers, and standing dynamic and static balance, while OT focused on UE coordination and application security architect strength with affected R UE. Assessment Current Status: Fair Progress Patient demonstrated better self-maneuvering of R LE with bed mobility, and required less overall assistance with all transfer performances. PT Short Term Goals Short Term Goals Time Frame: Jun 02, 2020 Roll Left & Right: 4 (SBA) Sit to lyin (SBA) Lying to sitting on side of be: 4 (SBA) Sit to stand: 4 (CGA) Chair/njm-nl-xwpea transfer: 4 (min) Toilet transfer: 4 (min) Car transfer: 4 (min) Walk 10 feet: 4 (min) Walk 50 feet with two turns: 4 (min) 1 step (curb): 4 (CGA) Wheel 50ft w/2 turns: 4 Wheel 150 feet: 4 PT Senior Living Goals Senior Living Goals PT Shake Out Worker Goals Time Frame: Jun 16, 2020 Roll Left & Right (QC): 5 Sit to Lying (QC): 5 Lying-Sitting on Side/Bed(QC): 5 Sit to Stand (QC): 5 Chair/Sgs-uc-Yhkla Xfer(QC): 4 (CGA) Toilet Transfer (QC): 4 (CGA) Car Transfer (QC): 4 (CGA) Does the Patient Walk: Yes Walk 10 feet (QC): 4 (CGA) Walk 50ft with 2 Turns (QC): 4 (CGA) Walk 150 ft (QC): 4 (CGA) Walking 10ft on Uneven Surface: 4 (CGA) 1 Step (curb) (QC): 4 (CGA) 4 Steps (QC): 4 (CGA) 12 Steps (QC): 88 Picking up an Object (QC): 4 (CGA) Does the Pt use WC or Scooter?: Yes Wheel 50 feet with 2 turns (QC: 6 Type: Manual Wheel 150 feet: 6 Type: Manual PT Plan Problem List Problem List: Activity Tolerance, Functional Strength, Safety, Balance, Gait, Transfer, Bed Mobility, ROM Treatment/Plan Treatment Plan: Continue Plan of Care Treatment Plan: Bed Mobility, Education, Functional Activity Dutch, Functional Strength, Group Therapy, Gait, Safety, Therapeutic Exercise, Transfers Treatment Duration: Jun 16, 2020 Frequency: At least 5 of 7 days/Wk (IRF) Estimated Hrs Per Day: 1.5 hours per day Patient and/or Family Agrees t: Yes Safety Risks/Education Patient Education: Gait Training, Transfer Techniques, Correct Positioning, W/C Management, Safety Issues Teaching Recipient: Patient Teaching Methods: Demonstration, Discussion Response to Teaching: Verbalize Understanding, Return Demonstration, Reinforcement Needed Time/GCodes Time In: 1300 Time Out: 1330 Total Billed Treatment Time: 30 Total Billed Treatment 1 visit: GT: 15' EX: 15' IAN PETTY PT May 29, 2020 14:52
[2020-05-29 17:08] VITALS: BP 121/60
[2020-05-30] MEDS: RT-ALBUTEROL/IPRATROPIUM 3 ML (DUONEB) VIAL INH SCH ×6 (00:08→21:04)
[2020-05-30] MEDS: NITROGLYCERIN 0.4 MG SL TABS BTL 25'S SL PRN ×3 (00:21→00:31)
[2020-05-30] MEDS ORDERED: NS IV 1000 ML 1,000 ML ONE (00:50)
[2020-05-30] MEDS ORDERED: NS IV 1000 ML 1,000 ML IV ONE (01:00)
[2020-05-30 06:00] VITALS: BP 158/69
[2020-05-30] MEDS: CATHETER FLUSH 10 ML SYR IV SCH ×2 (06:12→15:14)
[2020-05-30] MEDS: UMECLIDINIUM BROMIDE (INCRUSE ELLIPTA) 7'S IH SCH (06:35)
--- NOTE | 2020-05-30 08:24 | Diagnostic Imaging Report ---
EXAM: CHEST 1 VIEW, AP/PA ONLY INDICATION: Chest pain. COMPARISON: Chest radiograph 05/23/2020. FINDINGS: Normal heart size and central pulmonary vascularity. Mild atelectasis or infiltrate right lung base. Calcified aorta. No pleural effusion or pneumothorax. No acute osseous findings. Postoperative changes in the cervical spine. IMPRESSION: Mild atelectasis or infiltrate right lung base has mildly progressed since the prior. Dictated by: Dictated on workstation # [id number]
[2020-05-30] MEDS: DOCUSATE SODIUM 100 MG (COLACE) CAP PO SCH ×2 (08:45→21:37)
[2020-05-30] MEDS: CLOPIDOGREL 75 MG (PLAVIX) TABLET PO SCH (08:45)
[2020-05-30] MEDS: FLUTICASONE NASAL SPRAY (FLONASE) 16 GM BTL NS SCH ×2 (08:45→21:37)
[2020-05-30] MEDS: SENNA W/DOCUSATE (SENOKOT S) TABLET PO SCH ×2 (08:45→21:37)
[2020-05-30] MEDS: lisINopril 20 MG (PRINIVIL) TABLET PO SCH (08:45)
[2020-05-30] MEDS: ENOXAPARIN 40 MG/0.4 ML (LOVENOX) SYR SC SCH (08:45)
[2020-05-30] MEDS: amLODIPine 5 MG (NORVASC) TAB PO SCH (08:45)
[2020-05-30] MEDS: GABAPENTIN 300 MG (NEURONTIN) CAP PO SCH ×3 (08:45→21:37)
[2020-05-30] MEDS: ASPIRIN 81 MG CHEW (CHILDREN'S ASA) PO SCH (08:45)
[2020-05-30] MEDS: polyethylene glycoL POWDER 17 GM (MIRALAX) PACK PO SCH ×2 (08:47→21:39)
[2020-05-30 08:48] VITALS: BP 150/66
[2020-05-30 09:09] LABS: BASOPHILS # (AUTO) 0.1 10^3/uL (0.0-0.1); BASOPHILS % (AUTO) 1 % (0-10); EOSINOPHILS % (AUTO) 9 % (0-10); HEMATOCRIT 38 % (40-54); HEMOGLOBIN 12.2 g/dL (13.3-17.7); LYMPHOCYTES # (AUTO) 1.9 10^3/uL (1.0-4.0); LYMPHOCYTES % (AUTO) 16 % (12-44); MEAN CORPUSCULAR HEMOGLOBIN 29 pg (25-34); MEAN CORPUSCULAR HGB CONC 32 g/dL (32-36); MEAN CORPUSCULAR VOLUME 90 fL (80-99); MEAN PLATELET VOLUME 10.1 fL (9.0-12.2); MONOCYTES # (AUTO) 0.9 10^3/uL (0.0-1.0); MONOCYTES % (AUTO) 7 % (0-12); NEUTROPHILS # (AUTO) 7.9 10^3/uL (1.8-7.8); NEUTROPHILS % (AUTO) 67 % (42-75); PLATELET COUNT 225 10^3/uL (130-400); WHITE BLOOD COUNT 11.9 10^3/uL (4.3-11.0)
[2020-05-30 09:24] LABS: ALBUMIN 3.4 GM/DL (3.2-4.5); CHLORIDE 106 MMOL/L (98-107); POTASSIUM 3.8 MMOL/L (3.6-5.0); SODIUM 140 MMOL/L (135-145)
[2020-05-30 09:26] LABS: CALCIUM 8.7 MG/DL (8.5-10.1)
[2020-05-30 09:27] LABS: GLUCOSE 117 MG/DL (70-105); TOTAL PROTEIN 6.1 GM/DL (6.4-8.2)
[2020-05-30 09:28] LABS: CARBON DIOXIDE 23 MMOL/L (21-32)
[2020-05-30 09:29] LABS: BILIRUBIN,TOTAL 0.4 MG/DL (0.1-1.0)
[2020-05-30 09:30] LABS: ALKALINE PHOSPHATASE 69 U/L (40-136); CREATININE SERUM 0.75 MG/DL (0.60-1.30); GFR ESTIMATED > 60
[2020-05-30 09:32] LABS: BUN/CREATININE RATIO 16
[2020-05-30 09:33] LABS: ALANINE AMINOTRANSFERASE 19 U/L (0-55)
--- NOTE | 2020-05-30 10:24 | Cardiology Progress Note ---
Subjective Date Seen by Provider: May 30, 2020 Time Seen by Provider: 10:23 Subjective/Events-last exam Patient is laying down in bed, feeling better, had an episode of chest pain and shortness of breath yesterday. Review of Systems General: No Chills, No Night Sweats; Fatigue; No Malaise, No Appetite, No Other HEENT: No Head Aches, No Visual Changes, No Eye Pain, No Ear Pain, No Dysphasia, No Sinus Congestion, No Post Nasal Drip, No Sore Throat, No Other Pulmonary: Dyspnea; No Cough, No Pleuritic Chest Pain, No Other Cardiovascular: No: Chest Pain, Palpitations, Orthopnea, Paroxysmal Noc. Dyspnea, Edema, Lt Headedness, Other Focused Exam Lactate Level 05/30/20 09:00: Lactic Acid Level 1.47 Lactic Acid Level Laboratory Tests Test 05/30/20 09:00 Lactic Acid Level 1.47 MMOL/L (0.50-2.00) Objective-Cardiology Exam Last Set of Vital Signs Vital Signs 05/30/20 05/30/20 05/30/20 06:00 06:36 08:48 Temp 36.6 Pulse 68 Resp 18 B/P (MAP) 150/66 (94) Pulse Ox 90 O2 Delivery Room Air Capillary Refill : I&O Intake and Output 05/30/20 00:00 Intake Total 1320 ml Output Total 200 ml Balance 1120 ml Intake Oral 1320 ml Output Urine Total 200 ml # Voids 6 General: Alert, Oriented X3, Cooperative HEENT: Atraumatic, PERRLA Neck: Supple, No JVD, No Thyromegaly Lungs: Clear to Auscultation, Normal Air Movement Heart: Regular Rate, Normal S1, Normal S2 Abdomen: Soft, No Tenderness Extremities: No Clubbing, No Edema Skin: No Rashes, No Significant Lesion Neuro: Normal Speech, Other (right sided hemiparesis) Results Lab Laboratory Tests 05/30/20 09:00 A/P-Cardiology Admission Diagnosis CVA CAD HTN HLP Assessment/Plan Chest pain, shortness of breath, resolved, received sublingual nitroglycerin bronchodilator. Currently no active pain, troponin was normal, EKG did not show any changes. Continue to monitor Recurrent CVA d/t Carotid artery stenosis, had a stroke in December 2019 resulted in right-sided weakness, had left-sided weakness on this admission. He had history of carotid stenting at [facility] in January 2020 after the first stroke, he is known to have complete occlusion of the left common and internal carotid arteries, stent of the right carotid artery. Most recent CTA head done 05/23/20 showing internal thrombus within the right internal carotid artery stent which is slightly less prominent than on the prior examination. [facility] neurology consulted and recommend continuation of ASA and Plavix. Does not warrant intervention at this time. Coronary artery disease, history of cardiac catheterization in 2013 showing patent stents in the proximal LAD, known to have Promus element 2.75 by 16mm placed in July 2012, the proximal stent is Premier 3 x 16 placed in June 2013, had 50-60 percent mid LAD stenosis, clinically stable, continue to monitor. Maintained on ASA and Plavix. Hypertension, controlled, continue to monitor. Hyperlipidemia, monitor lipids Tobaccoism, educated on smoking cessation H/O marijuana and heavy EtOH use Methamphetamine abuse; (+) this admission H/O hepatitis C followed at the [facility] COPD Chronically abnormal EKG that shows LVH with repolarization abnormalities DEMETRIO ALVAREZ MD May 30, 2020 10:24
--- NOTE | 2020-05-30 10:58 | Diagnostic Imaging Report ---
EXAM: CHEST PA/LAT (2 VIEW) INDICATION: Pneumonia. COMPARISON: Chest radiograph 05/23/2020 and 05/30/2020 at 12:17 AM. FINDINGS: Airspace consolidation in the right lung base is new since the previous exam. No pleural effusion or pneumothorax. Normal heart size and central pulmonary vascularity. Calcified aorta. No acute osseous findings. IMPRESSION: Atelectasis or infiltrate in the right lung base is new since 05/24/2019. Dictated by: Dictated on workstation # [id number]
--- NOTE | 2020-05-30 11:55 | Physical Therapy Daily Note ---
PT Daily Note-Current Subjective Pt supine in bed upon arrival to room, states he did not sleep well last night due to having panic/anxiety attack. Pt agreeable to PT at this time. Appearance Following session, pt requests return to bed, as he would like to sleep. Pt in bed with call light, tray and phone within reach. All needs met at this time. Mental Status Patient Orientation: Person, Place, Situation Transfers SCALE: Activities may be completed with or without assistive devices. 7-Dqnpdnmxfz-qcijwhi completes the activity by him/herself with no assistance from a helper. 5-Set-up or Clean-up Assistance-helper sets up or cleans up; patient completes activity. [place] assists only prior to or following the activity. 4-Supervision or Touching Assistance-helper provides verbal cues and/or touching/steadying and/or contact guard assistance as patient completes activity. Assistance may be provided throughout the activity or intermittently. 3-Partial/Moderate Assistance-helper does LESS THAN HALF the effort. [place] lifts, holds or supports trunk or limbs, but provides less than half the effort. 2-Substantial/Maximal Assistance-helper does MORE THAN HALF the effort. [place] lifts or holds trunk or limbs and provides more than half the effort. 2-Kyprirlwp-ckiiue does ALL the effort. Patient does none of the effort to complete the activity. Or, the assistance of 2 or more helpers is required for the patient to complete the activity. If activity was not attempted, code reason: 7-Patient Refused. 9-Not Applicable-not attempted and the patient did not perform the activity before the current illness, exacerbation or injury. 10-Not Attempted due to Environmental Limitations-(lack of equipment, weather restraints, etc.). 88-Not Attempted due to Medical Conditions or Safety Concerns. Sit to Lying (QC): 4 Lying to Sitting/Side of Bed(Q: 4 Sit to Stand (QC): 4 Weight Bearing Full Weight Bearing Full Weight Bearing Gait Training Distance: 2 x 20' Walk 10 feet (QC): 3 Gait Assistive Device: FWW Pt (R) knee sabrina with fatigue, less episodes of buckling noted at beginning of each ambulation. Requires cueing as he occasionally leaves his R foot behind him and takes 2-3 steps with LLE, leaving R behind. Assessment Current Status: Fair Progress Pt with decreased RUE and RLE awareness due date, will continue to progress as able. PT Short Term Goals Short Term Goals Time Frame: Jun 02, 2020 Roll Left & Right: 4 (SBA) Sit to lyin (SBA) Lying to sitting on side of be: 4 (SBA) Sit to stand: 4 (CGA) Chair/fph-lq-vjnjm transfer: 4 (min) Toilet transfer: 4 (min) Car transfer: 4 (min) Walk 10 feet: 4 (min) Walk 50 feet with two turns: 4 (min) 1 step (curb): 4 (CGA) Wheel 50ft w/2 turns: 4 Wheel 150 feet: 4 PT Motor Vehicle Lecturer Goals [facility] Goals PT [facility] Goals Time Frame: Jun 16, 2020 Roll Left & Right (QC): 5 Sit to Lying (QC): 5 Lying-Sitting on Side/Bed(QC): 5 Sit to Stand (QC): 5 Chair/Hba-sk-Ljqyb Xfer(QC): 4 (CGA) Toilet Transfer (QC): 4 (CGA) Car Transfer (QC): 4 (CGA) Does the Patient Walk: Yes Walk 10 feet (QC): 4 (CGA) Walk 50ft with 2 Turns (QC): 4 (CGA) Walk 150 ft (QC): 4 (CGA) Walking 10ft on Uneven Surface: 4 (CGA) 1 Step (curb) (QC): 4 (CGA) 4 Steps (QC): 4 (CGA) 12 Steps (QC): 88 Picking up an Object (QC): 4 (CGA) Does the Pt use WC or Scooter?: Yes Wheel 50 feet with 2 turns (QC: 6 Type: Manual Wheel 150 feet: 6 Type: Manual PT Plan Problem List Problem List: Activity Tolerance, Functional Strength, Safety, Balance, Gait, Transfer, Bed Mobility, ROM Treatment/Plan Treatment Plan: Continue Plan of Care Treatment Plan: Bed Mobility, Education, Functional Activity Dutch, Functional Strength, Group Therapy, Gait, Safety, Therapeutic Exercise, Transfers Treatment Duration: Jun 16, 2020 Frequency: At least 5 of 7 days/Wk (IRF) Estimated Hrs Per Day: 1.5 hours per day Patient and/or Family Agrees t: Yes Time/GCodes Time In: 1135 Time Out: 1145 Total Billed Treatment Time: 10 Total Billed Treatment 1 visit GT (10') CIARA ALKE PT May 30, 2020 11:55
--- NOTE | 2020-05-30 13:38 | PM&R Progress Note ---
Subjective HPI/CC On Admission Date Seen by Provider: May 30, 2020 Time Seen by Provider: 12:40 Subjective/Events-last exam 05/30/20: Patient had episode of CP last night and dyspnea Cardiology evaluated him today CXR ATX no evidence of sepsis or PNA Meth use hx has caused multiple medical issues 05/29/20: Patient remains stable Labile moods are from meth use hx Asking if he could go outside with his friend tomorrow and I stated likely not due to his meth use and could take [place] at that time 05/28/20: Labile behavior h/o meth use has been a factor in this behavior Obsessed about where his girlfriend is Lungs are clear 05/27/20: Pt doing a lot better Slept in today Working with therapy Right-sided weakness is significant Will work through things as they come Hopefully wont leave AMA this time Review of Systems General: Fatigue Pulmonary: Dyspnea Cardiovascular: Chest Pain Focused Exam Lactate Level 05/30/20 09:00: Lactic Acid Level 1.47 Objective Exam Vital Signs Vital Signs Date Time Temp Pulse Resp B/P (MAP) Pulse Ox O2 Delivery O2 Flow Rate FiO2 05/30/20 14:35 93 Room Air 05/30/20 08:48 68 150/66 (94) 05/30/20 06:00 36.6 18 Capillary Refill : General Appearance: No Apparent Distress, WD/WN, Chronically ill, Thin HEENT: PERRL/EOMI, Normal ENT Inspection, Pharynx Normal Neck: Full Range of Motion, Normal Inspection, Non Tender, Supple, Carotid Bruit Respiratory: Chest Non Tender, Lungs Clear, Normal Breath Sounds, No Accessory Muscle Use, No Respiratory Distress Cardiovascular: Regular Rate, Rhythm, No Edema, No Gallop, No JVD, No Murmur, Normal Peripheral Pulses Gastrointestinal: Normal Bowel Sounds, No Organomegaly, No Pulsatile Mass, Non Tender, Soft Back: Normal Inspection, No CVA Tenderness, No Vertebral Tenderness Extremity: Normal Capillary Refill, Normal Inspection, Normal Range of Motion, Non Tender, No Calf Tenderness, No Pedal Edema Neurologic/Psychiatric: Alert, Oriented x3, Normal Mood/Affect, Motor Weakness (right sided weakness 3/5 leg and arm) Skin: Normal Color, Warm/Dry Lymphatic: No Adenopathy Results/Procedures Lab Laboratory Tests 05/30/20 09:00 Patient resulted labs reviewed. [facility]IM Transfers Therapy Code Descriptions/Definitions Functional [place] Measure: 0=Not Assessed/NA 4=Minimal Assistance 1=Total Assistance 5=Supervision or Setup 2=Maximal Assistance 6=Modified [place] 3=Moderate Assistance 7=Complete IndependenceSCALE: Activities may be completed with or without assistive devices. 0-Tdncwgxbfp-wbhhejx completes the activity by him/herself with no assistance from a helper. 5-Set-up or Clean-up Assistance-helper sets up or cleans up; patient completes activity. [place] assists only prior to or following the activity. 4-Supervision or Touching Assistance-helper provides verbal cues and/or touching/steadying and/or contact guard assistance as patient completes activity. Assistance may be provided throughout the activity or intermittently. 3-Partial/Moderate Assistance-helper does LESS THAN HALF the effort. [place] li fts, holds or supports trunk or limbs, but provides less than half the effort. 2-Substantial/Maximal Assistance-helper does MORE THAN HALF the effort. [place] lifts or holds trunk or limbs and provides more than half the effort. 1-Uejayuynv-wesymg does ALL the effort. Patient does none of the effort to complete the activity. Or, the assistance of 2 or more helpers is required for the patient to complete the activity. If activity was not attempted, code reason: 7-Patient Refused. 9-Not Applicable-not attempted and the patient did not perform the activity before the current illness, exacerbation or injury. 10-Not Attempted due to Environmental Limitations-(lack of equipment, weather restraints, etc.). 88-Not Attempted due to Medical Conditions or Safety Concerns. Roll Left to Right (QC): 4 Sit to Lying (QC): 4 Sit to Stand (QC): 4 Chair/Gmt-lk-Iamwx Xfer(QC): 4 Car Transfer (QC): 3 (mod) Gait Training Does the Patient Walk?: Yes Distance: 2 x 20' Walk 10 feet (QC): 3 Walk 50 ft with 2 Turns(QC): 88 Walk 150 ft (QC): 88 Walking 10ft/uneven surface-QC: 88 Gait Persons Needed: 1 Gait Assistive Device: FWW Wheelchair Training Does the Pt Use a Wheelchair?: Yes Wheel 50 ft with 2 turns (QC): 6 Wheel 150 ft (QC): 4 Type of Wheelchair: Manual Stair Training 1 Step (curb) (QC): 88 4 Steps (QC): 88 12 Steps (QC): 88 Balance Picking up an Object (QC): 88 ADL-Treatment Eating (QC): 5 Oral Hygiene (QC): 7 (Pt declined as he does not have any teeth.) Shower/Bathe Self (QC): 3 (Min A, assist to wash buttocks. Pt required CGA in stand at GBs. Pt able to use LH sponge to wash LUE and lower legs with min verbal cues.) Upper Body Dressing (QC): 4 (SBA, pt able to don/doff lathe puller shirt) Lower Body Dressing (QC): 3 (Mod A, pt required assist doffing BLEs, assist donning RLE. Min A standing balance as pt completed pant hike.) On/Off Footwear (QC): 2 (Pt able to doff LLE sock, able to doff RLE sock as OT assisted wtih positioning pt's leg. 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 05/03/20 Plan: IRF protocol Monitor closely Supportive care Hope does not leave AMA 05/28/20: Monitor closely Very labile behavior 05/29/20: Monitor closely Meth use has caused labile behavior 05/30/20: CP and dyspnea monitored (1) CVA (cerebral vascular accident) Status: Acute (2) Methamphetamine abuse Status: Acute (3) HLD (hyperlipidemia) Status: Chronic (4) Carotid stenosis Status: Acute (5) HTN (hypertension) Status: Acute (6) Cannabis abuse Status: Acute (7) Hemiparesis of right dominant side Status: Acute (8) Very heavy cigarette smoker (40 or more per day) Status: Acute (9) Illicit drug use Status: Acute (10) Hypertension (11) COPD (chronic obstructive pulmonary disease) PRUDENCE BECK DO May 30, 2020 13:38
[2020-05-30] MEDS ORDERED: ZINC OXIDE 16% OINT (BUTT PASTE) 57 GM TUBE TOP PRN (14:15)
[2020-05-30 18:10] VITALS: BP 97/51
[2020-05-31] MEDS: BACLOFEN 10 MG (LIORESAL) TAB PO PRN (00:07)
[2020-05-31 06:00] VITALS: BP 161/73
--- NOTE | 2020-05-31 07:07 | PM&R Progress Note ---
Subjective HPI/CC On Admission Date Seen by Provider: May 31, 2020 Time Seen by Provider: 12:30 Subjective/Events-last exam 05/31/20: Patient cursing at his phone about his girlfriend Meth use has changed brain function BM treatment ordered Patient still asking if he can go outside if he has a visitor but I fear he would use meth so I am not approving him of going outside or off unit without staff 05/30/20: Patient had episode of CP last night and dyspnea Cardiology evaluated him today CXR ATX no evidence of sepsis or PNA Meth use hx has caused multiple medical issues 05/29/20: Patient remains stable Labile moods are from meth use hx Asking if he could go outside with his friend tomorrow and I stated likely not due to his meth use and could take [place] at that time 05/28/20: Labile behavior h/o meth use has been a factor in this behavior Obsessed about where his girlfriend is Lungs are clear 05/27/20: Pt doing a lot better Slept in today Working with therapy Right-sided weakness is significant Will work through things as they come Hopefully wont leave AMA this time Review of Systems General: Fatigue Focused Exam Lactate Level 05/30/20 09:00: Lactic Acid Level 1.47 Objective Exam Vital Signs Vital Signs Date Time Temp Pulse Resp B/P (MAP) Pulse Ox O2 Delivery O2 Flow Rate FiO2 05/31/20 18:36 94 Room Air 05/31/20 17:16 36.5 73 18 133/64 (87) Capillary Refill : General Appearance: No Apparent Distress, WD/WN, Chronically ill, Thin HEENT: PERRL/EOMI, Normal ENT Inspection, Pharynx Normal Neck: Full Range of Motion, Normal Inspection, Non Tender, Supple, Carotid Bruit Respiratory: Chest Non Tender, Lungs Clear, Normal Breath Sounds, No Accessory Muscle Use, No Respiratory Distress Cardiovascular: Regular Rate, Rhythm, No Edema, No Gallop, No JVD, No Murmur, Normal Peripheral Pulses Gastrointestinal: Normal Bowel Sounds, No Organomegaly, No Pulsatile Mass, Non Tender, Soft Back: Normal Inspection, No CVA Tenderness, No Vertebral Tenderness Extremity: Normal Capillary Refill, Normal Inspection, Normal Range of Motion, Non Tender, No Calf Tenderness, No Pedal Edema Neurologic/Psychiatric: Alert, Oriented x3, Normal Mood/Affect, Motor Weakness (right sided weakness 3/5 leg and arm) Skin: Normal Color, Warm/Dry Lymphatic: No Adenopathy Results/Procedures Lab Patient resulted labs reviewed. FIM Transfers Therapy Code Descriptions/Definitions Functional [place] Measure: 0=Not Assessed/NA 4=Minimal Assistance 1=Total Assistance 5=Supervision or Setup 2=Maximal Assistance 6=Modified [place] 3=Moderate Assistance 7=Complete IndependenceSCALE: Activities may be completed with or without assistive devices. 4-Vfdgxhhiku-ogtynwl completes the activity by him/herself with no assistance from a helper. 5-Set-up or Clean-up Assistance-helper sets up or cleans up; patient completes activity. [place] assists only prior to or following the activity. 4-Supervision or Touching Assistance-helper provides verbal cues and/or touching/steadying and/or contact guard assistance as patient completes activity. Assistance may be provided throughout the activity or intermittently. 3-Partial/Moderate Assistance-helper does LESS THAN HALF the effort. [place] lifts, holds or supports trunk or limbs, but provides less than half the effort. 2-Substantial/Maximal Assistance-helper does MORE THAN HALF the effort. [place] lifts or holds trunk or limbs and provides more than half the effort. 3-Rzpjbgbkt-waiypp does ALL the effort. Patient does none of the effort to complete the activity. Or, the assistance of 2 or more helpers is required for the patient to complete the activity. If activity was not attempted, code reason: 7-Patient Refused. 9-Not Applicable-not attempted and the patient did not perform the activity before the current illness, exacerbation or injury. 10-Not Attempted due to Environmental Limitations-(lack of equipment, weather restraints, etc.). 88-Not Attempted due to Medical Conditions or Safety Concerns. Roll Left to Right (QC): 4 Sit to Lying (QC): 4 Sit to Stand (QC): 4 Chair/Pen-ts-Rzxbn Xfer(QC): 4 Car Transfer (QC): 3 (mod) Gait Training Does the Patient Walk?: Yes Distance: 2 x 20' Walk 10 feet (QC): 3 Walk 50 ft with 2 Turns(QC): 88 Walk 150 ft (QC): 88 Walking 10ft/uneven surface-QC: 88 Gait Persons Needed: 1 Gait Assistive Device: FWW Wheelchair Training Does the Pt Use a Wheelchair?: Yes Wheel 50 ft with 2 turns (QC): 6 Wheel 150 ft (QC): 4 Type of Wheelchair: Manual Stair Training 1 Step (curb) (QC): 88 4 Steps (QC): 88 12 Steps (QC): 88 Balance Picking up an Object (QC): 88 ADL-Treatment Eating (QC): 5 Oral Hygiene (QC): 7 (Pt declined as he does not have any teeth.) Shower/Bathe Self (QC): 3 (Min A, assist to wash buttocks. Pt required CGA in stand at GBs. 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 Min A standing balance as pt completed pant hike.) On/Off Footwear (QC): 2 (Pt able to doff LLE sock, able to doff RLE sock as OT assisted wtih positioning pt's leg. 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 05/03/20 Plan: IRF protocol Monitor closely Supportive care Hope does not leave AMA 05/28/20: Monitor closely Very labile behavior 05/29/20: Monitor closely Meth use has caused labile behavior 05/30/20: CP and dyspnea monitored 05/31/20: Monitor closely Not allowed to leave the unit without staff due to what I suspect as planning to use meth (1) CVA (cerebral vascular accident) Status: Acute (2) Methamphetamine abuse Status: Acute (3) HLD (hyperlipidemia) Status: Chronic (4) Carotid stenosis Status: Acute (5) HTN (hypertension) Status: Acute (6) Cannabis abuse Status: Acute (7) Hemiparesis of right dominant side Status: Acute (8) Very heavy cigarette smoker (40 or more per day) Status: Acute (9) Illicit drug use Status: Acute (10) Hypertension (11) COPD (chronic obstructive pulmonary disease) PRUDENCE BECK DO May 31, 2020 07:07
[2020-05-31] MEDS: RT-ALBUTEROL/IPRATROPIUM 3 ML (DUONEB) VIAL INH SCH ×3 (07:27→18:36)
[2020-05-31] MEDS: UMECLIDINIUM BROMIDE (INCRUSE ELLIPTA) 7'S IH SCH (07:29)
[2020-05-31] MEDS: lisINopril 20 MG (PRINIVIL) TABLET PO SCH (08:16)
[2020-05-31] MEDS: polyethylene glycoL POWDER 17 GM (MIRALAX) PACK PO SCH ×2 (08:16→21:37)
[2020-05-31] MEDS: amLODIPine 5 MG (NORVASC) TAB PO SCH (08:16)
[2020-05-31] MEDS: SENNA W/DOCUSATE (SENOKOT S) TABLET PO SCH ×2 (08:17→21:35)
[2020-05-31] MEDS: DOCUSATE SODIUM 100 MG (COLACE) CAP PO SCH ×2 (08:17→21:37)
[2020-05-31] MEDS: ENOXAPARIN 40 MG/0.4 ML (LOVENOX) SYR SC SCH (08:17)
[2020-05-31] MEDS: CLOPIDOGREL 75 MG (PLAVIX) TABLET PO SCH (08:17)
[2020-05-31] MEDS: GABAPENTIN 300 MG (NEURONTIN) CAP PO SCH ×3 (08:18→21:36)
[2020-05-31] MEDS: FLUTICASONE NASAL SPRAY (FLONASE) 16 GM BTL NS SCH ×2 (08:20→21:35)
[2020-05-31] MEDS: ASPIRIN 81 MG CHEW (CHILDREN'S ASA) PO SCH (08:23)
--- NOTE | 2020-05-31 11:56 | Cardiology Progress Note ---
Subjective Date Seen by Provider: May 31, 2020 Time Seen by Provider: 11:56 Subjective/Events-last exam Patient is laying down in bed no new complaint. No chest pain. Review of Systems General: No Chills, No Night Sweats; Fatigue; No Malaise, No Appetite, No Other HEENT: No Head Aches, No Visual Changes, No Eye Pain, No Ear Pain, No Dysphasia, No Sinus Congestion, No Post Nasal Drip, No Sore Throat, No Other Pulmonary: No Dyspnea, No Cough, No Pleuritic Chest Pain, No Other Cardiovascular: No: Chest Pain, Palpitations, Orthopnea, Paroxysmal Noc. Dyspnea, Edema, Lt Headedness, Other Focused Exam Lactate Level 05/30/20 09:00: Lactic Acid Level 1.47 Objective-Cardiology Exam Last Set of Vital Signs Vital Signs 05/31/20 05/31/20 06:00 07:27 Temp 36.4 Pulse 64 Resp 20 B/P (MAP) 161/73 (102) Pulse Ox 96 O2 Delivery Room Air Capillary Refill : I&O Intake and Output 05/31/20 00:00 Intake Total 2080 ml Output Total 1000 ml Balance 1080 ml Intake Oral 1080 ml IV Total 1000 ml Output Urine Total 1000 ml General: Alert, Oriented X3, Cooperative HEENT: Atraumatic, PERRLA Neck: Supple, No JVD, No Thyromegaly Lungs: Clear to Auscultation, Normal Air Movement Heart: Regular Rate, Normal S1, Normal S2 Abdomen: Soft, No Tenderness Extremities: No Clubbing, No Edema Skin: No Rashes, No Significant Lesion Neuro: Normal Speech, Other (right sided hemiparesis) A/P-Cardiology Admission Diagnosis CVA CAD HTN HLP Assessment/Plan Chest pain, shortness of breath, resolved, no further episodes were reported. Continue to monitor Recurrent CVA d/t Carotid artery stenosis, had a stroke in December 2019 resulted in right-sided weakness, had left-sided weakness on this admission. He had history of carotid stenting at [facility] in January 2020 after the first stroke, he is known to have complete occlusion of the left common and internal carotid arteries, stent of the right carotid artery. Most recent CTA head done 05/23/20 sh owing internal thrombus within the right internal carotid artery stent which is slightly less prominent than on the prior examination. [facility] neurology consulted and recommend continuation of ASA and Plavix. Does not warrant intervention at this time. Coronary artery disease, history of cardiac catheterization in 2013 showing patent stents in the proximal LAD, known to have Promus element 2.75 by 16mm placed in July 2012, the proximal stent is Premier 3 x 16 placed in June 2013, had 50-60 percent mid LAD stenosis, clinically stable, continue to monitor. Maintained on ASA and Plavix. Hypertension, controlled, continue to monitor. Hyperlipidemia, monitor lipids Tobaccoism, educated on smoking cessation H/O marijuana and heavy EtOH use Methamphetamine abuse; (+) this admission H/O hepatitis C followed at the [facility] COPD Chronically abnormal EKG that shows LVH with repolarization abnormalities DEMETRIO ALVAREZ MD May 31, 2020 11:56
[2020-05-31] MEDS ORDERED: SALINE NASAL SPRAY (OCEAN) 45 ML BTL PRN (16:45)
[2020-05-31 17:16] VITALS: BP 133/64
[2020-05-31] MEDS: MELATONIN 3 MG TABLET PO PRN (21:35)
[2020-06-01 05:59] VITALS: BP 118/65
[2020-06-01 06:01] LABS: BASOPHILS # (AUTO) 0.1 10^3/uL (0.0-0.1); BASOPHILS % (AUTO) 1 % (0-10); EOSINOPHILS # (AUTO) 1.6 10^3/uL (0.0-0.3); EOSINOPHILS % (AUTO) 15 % (0-10); HEMATOCRIT 38 % (40-54); HEMOGLOBIN 12.1 g/dL (13.3-17.7); LYMPHOCYTES # (AUTO) 2.4 10^3/uL (1.0-4.0); LYMPHOCYTES % (AUTO) 21 % (12-44); MEAN CORPUSCULAR HEMOGLOBIN 29 pg (25-34); MEAN CORPUSCULAR HGB CONC 32 g/dL (32-36); MEAN CORPUSCULAR VOLUME 91 fL (80-99); MEAN PLATELET VOLUME 10.3 fL (9.0-12.2); MONOCYTES % (AUTO) 9 % (0-12); NEUTROPHILS # (AUTO) 5.9 10^3/uL (1.8-7.8); NEUTROPHILS % (AUTO) 54 % (42-75); PLATELET COUNT 241 10^3/uL (130-400)
[2020-06-01 06:23] LABS: ALANINE AMINOTRANSFERASE 20 U/L (0-55); ALBUMIN 3.3 GM/DL (3.2-4.5); ALKALINE PHOSPHATASE 62 U/L (40-136); BASOPHILS % (MANUAL) 1 %; BILIRUBIN,TOTAL 0.4 MG/DL (0.1-1.0); BUN/CREATININE RATIO 15; CALCIUM 8.6 MG/DL (8.5-10.1); CARBON DIOXIDE 28 MMOL/L (21-32); CHLORIDE 103 MMOL/L (98-107); EOSINOPHILS % (MANUAL) 13 %; GFR ESTIMATED > 60; GLUCOSE 123 MG/DL (70-105); LYMPHOCYTES % (MANUAL) 19 %; MONOCYTES % (MANUAL) 9 %; NEUTROPHILS % (MANUAL) 58 %; RBC MORPH NORMAL; SODIUM 138 MMOL/L (135-145)
[2020-06-01] MEDS: RT-ALBUTEROL/IPRATROPIUM 3 ML (DUONEB) VIAL INH SCH ×3 (06:57→21:19)
[2020-06-01] MEDS: UMECLIDINIUM BROMIDE (INCRUSE ELLIPTA) 7'S IH SCH (06:57)
[2020-06-01 08:00] VITALS: BP 135/58
--- NOTE | 2020-06-01 08:37 | Cardiology Progress Note ---
Subjective Date Seen by Provider: Jun 01, 2020 Time Seen by Provider: 08:37 Subjective/Events-last exam Patient is sitting up in bed, denies any chest pain or dyspnea. Review of Systems General: No Chills, No Night Sweats, No Fatigue, No Malaise, No Appetite, No Other HEENT: No Head Aches, No Visual Changes, No Eye Pain, No Ear Pain, No Dysphasia, No Sinus Congestion, No Post Nasal Drip, No Sore Throat, No Other Pulmonary: No Dyspnea, No Cough, No Pleuritic Chest Pain, No Other Cardiovascular: No: Chest Pain, Palpitations, Orthopnea, Paroxysmal Noc. Dyspnea, Edema, Lt Headedness, Other Focused Exam Lactate Level 05/30/20 09:00: Lactic Acid Level 1.47 Objective-Cardiology Exam Last Set of Vital Signs Vital Signs 06/01/20 06/01/20 06/01/20 05:59 08:00 14:22 Temp 36.1 Pulse 63 Resp 17 B/P (MAP) 135/58 (83) Pulse Ox 95 O2 Delivery Room Air Capillary Refill : I&O Intake and Output 06/01/20 00:00 Intake Total 1580 ml Output Total 940 ml Balance 640 ml Intake Oral 1580 ml Output Urine Total 940 ml # Voids 4 General: Alert, Oriented X3, Cooperative HEENT: Atraumatic, PERRLA Neck: Supple, No JVD, No Thyromegaly Lungs: Clear to Auscultation, Normal Air Movement Heart: Regular Rate, Normal S1, Normal S2 Abdomen: Soft, No Tenderness Extremities: No Clubbing, No Edema Skin: No Rashes, No Significant Lesion Neuro: Normal Speech, Other (right sided hemiparesis) Results Lab Laboratory Tests 06/01/20 05:40 A/P-Cardiology Admission Diagnosis CVA CAD HTN HLP Assessment/Plan Chest pain, shortness of breath, resolved, no further episodes were reported. Continue to monitor Recurrent CVA d/t Carotid artery stenosis, had a stroke in December 2019 resulted in right-sided weakness, had left-sided weakness on this admission. He had history of carotid stenting at [facility] in January 2020 after the first stroke, he is known to have complete occlusion of the left common and internal carotid arteries, stent of the right carotid artery. Most recent CTA head done 05/23/20 showing internal thrombus within the right internal carotid artery stent which is slightly less prominent than on the prior examination. [facility] neurology consulted and recommend continuation of ASA and Plavix. Does not warrant intervention at this time. Coronary artery disease, history of cardiac catheterization in 2013 showing patent stents in the proximal LAD, known to have Promus element 2.75 by 16mm placed in July 2012, the proximal stent is Premier 3 x 16 placed in June 2013, had 50-60 percent mid LAD stenosis, clinically stable, continue to monitor. Maintained on ASA and Plavix. Hypertension, controlled, continue to monitor. Hyperlipidemia, monitor lipids Tobaccoism, educated on smoking cessation H/O marijuana and heavy EtOH use Methamphetamine abuse; (+) this admission H/O hepatitis C followed at the [facility] COPD Chronically abnormal EKG that shows LVH with repolarization abnormalities Patient was seen and evaluated with Ebony, examination performed, management plan was discussed, agree with the current scribed note, I made few changes to the note using Italic font Patient was seen at bedside, laying down comfortably, denied any chest pain Continue to monitor blood pressure and lipids No changes are recommended EBONY WARREN Jun 01, 2020 08:37 DEMETRIO ALVAREZ MD Jun 01, 2020 15:44
[2020-06-01] MEDS: lisINopril 20 MG (PRINIVIL) TABLET PO SCH (08:43)
[2020-06-01] MEDS: FLUTICASONE NASAL SPRAY (FLONASE) 16 GM BTL NS SCH ×2 (08:43→21:34)
[2020-06-01] MEDS: GABAPENTIN 300 MG (NEURONTIN) CAP PO SCH ×3 (08:43→21:34)
[2020-06-01] MEDS: ASPIRIN 81 MG CHEW (CHILDREN'S ASA) PO SCH (08:43)
[2020-06-01] MEDS: SENNA W/DOCUSATE (SENOKOT S) TABLET PO SCH ×2 (08:43→21:30)
[2020-06-01] MEDS: ENOXAPARIN 40 MG/0.4 ML (LOVENOX) SYR SC SCH (08:44)
[2020-06-01] MEDS: CLOPIDOGREL 75 MG (PLAVIX) TABLET PO SCH (08:44)
[2020-06-01] MEDS: polyethylene glycoL POWDER 17 GM (MIRALAX) PACK PO SCH ×2 (08:44→21:30)
[2020-06-01] MEDS: amLODIPine 5 MG (NORVASC) TAB PO SCH (08:44)
[2020-06-01] MEDS: DOCUSATE SODIUM 100 MG (COLACE) CAP PO SCH ×2 (08:44→21:30)
--- NOTE | 2020-06-01 10:11 | Occupational Ther Daily Note ---
OT Current Status-Daily Note Subjective Pt laying in bed, agreeable to OT Tx. ADL-Treatment Therapy Code Descriptions/Definitions Functional [place] Measure: 0=Not Assessed/NA 4=Minimal Assistance 1=Total Assistance 5=Supervision or Setup 2=Maximal Assistance 6=Modified [place] 3=Moderate Assistance 7=Complete IndependenceSCALE: Activities may be completed with or without assistive devices. 6-Mtmgdpmkvu-ylkmqxq completes the activity by him/herself with no assistance from a helper. 5-Set-up or Clean-up Assistance-helper sets up or cleans up; patient completes activity. [place] assists only prior to or following the activity. 4-Supervision or Touching Assistance-helper provides verbal cues and/or touching/steadying and/or contact guard assistance as patient completes activity. Assistance may be provided throughout the activity or intermittently. 3-Partial/Moderate Assistance-helper does LESS THAN HALF the effort. [place] lifts, holds or supports trunk or limbs, but provides less than half the effort. 2-Substantial/Maximal Assistance-helper does MORE THAN HALF the effort. [place] lifts or holds trunk or limbs and provides more than half the effort. 0-[place]-hgsbhj does ALL the effort. Patient does none of the effort to com plete the activity. Or, the assistance of 2 or more helpers is required for the patient to complete the activity. If activity was not attempted, code reason: 7-Patient Refused. 9-Not Applicable-not attempted and the patient did not perform the activity before the current illness, exacerbation or injury. 10-Not Attempted due to Environmental Limitations-(lack of equipment, weather restraints, etc.). 88-Not Attempted due to Medical Conditions or Safety Concerns. Shower/Bathe Self (QC): 4 (CGA in stand at GBs.) Upper Body Dressing (QC): 5 (set up) Lower Body Dressing (QC): 3 (Min A with RLE, pt able to complete pant hike with min A balance, and able to complete LLE.) On/Off Footwear: 3 (Pt able to don/doff LLE gripper sock, assist with doffing/donning R.) Other Treatment Pt laying in bed, transferred supine to sit EOB, SBA. Pt doffed shirt at EOB, losing his balance causing him to lean towards R side, assist to sit back upright. Pt transferred from EOB to w/c, SPT, CGA. Pt taken into bathroom, transferring from w/c to MT using GBs with CGA. Pt doffed lower body clothing and footwear, then completed shower. Pt used GBs to transfer back to w/c towards R side, losing balance slightly when he stood requiring min A. Pt donned clothing at w/c level, OT educated pt on AE. Pt required assistance with threading R leg into pants using a r d engineer, he was then able to thread L and complete pant hike with min A with balance. Pt able to don LLE gripper sock without AE, required min A with donning RLE gripper sock with education of sock aide. Pt then propelled w/c around [facility] common area, taking frequent rest breaks. Pt able to use LUE, and bilateral LEs, OT encouraged use of RUE with task but pt had difficulty bringing his hand back up to the top of the wheel. Once in therapy gym, pt completed x20 surgeon/president squeezes with heavy resistance surgeon/president sponge. Post tx, pt seated in w/c in therapy gym, PT present for tx, all needs met. Education OT Patient Education: Correct positioning, Modified ADL techniques, Progress toward Goal/Update tx plan, Purpose of tx/functional activities Teaching Recipient: Patient Teaching Methods: Discussion Response to Teaching: Verbalize Understanding OT Short Term Goals Short Term Goals Time Frame: Jun 02, 2020 Eatin Oral hygiene: 88 Toileting hygiene: 3 Shower/bathe self: 3 Upper body dressin Lower body dressin Putting on/taking off footwear: 3 OT Beta Tester Goals Beta Tester Goals Time Frame: Jun 16, 2020 Eating (QC): 6 Oral Hygiene (QC): 88 Toileting Hygiene (QC): 6 Shower/Bathe Self (QC): 4 Upper Body Dressing (QC): 6 Lower Body Dressing (QC): 6 On/Off Footwear (QC): 6 Additional Goals: 1-Demonstrate ADL Tasks, 2-Verbalize Understanding, 3- ImproveStrength/[place] 1=Demonstrate adherence to instructed precautions during ADL tasks. 2=Patient will verbalize/demonstrate understanding of assistive devices/modifications for ADL. 3=Patient will improve strength/tolerance for activity to enable patient to perform ADL's. OT Education/Plan Problem List/Assessment Assessment: Decreased Activ Tolerance, Decreased UE Strength, Impaired Funct Balance, Impaired I ADL's, Impaired Self-Care Skills, Restricted Funct UE ROM Discharge Recommendations Plan/Recommendations: Continue POC Treatment Plan/Plan of Care Patient would benefit from OT for education, treatment and training to promote independence in ADL's, mobility, safety and/or upper extremity function for ADL's. Plan of Care: ADL Retraining, Functional Mobility, Group Exercise/Act as Ind, UE Funct Exercise/Act Treatment Duration: Jun 16, 2020 Frequency: At least 5 of 7 days/Wk (IRF) Estimated Hrs Per Day: 1.5 hours per day Agreement: Yes Rehab Potential: Fair Time/GCodes Start Time: 09:00 Stop Time: 10:00 Total Time Billed (hr/min): 60 Billed Treatment Time 1, ADL 3 (45'), FA (15') MILAD HENDRICKSON OT Jun 01, 2020 10:11
--- NOTE | 2020-06-01 10:24 | PM&R Progress Note ---
Subjective HPI/CC On Admission Date Seen by Provider: Jun 01, 2020 Time Seen by Provider: 10:30 Subjective/Events-last exam 06/01/20: Pt having no new issues Very complex issues because of meth use and behaviors Working hard but likely will need a chcf Very difficult situation, social-handy 05/31/20: Patient cursing at his phone about his girlfriend Meth use has changed brain function BM treatment ordered Patient still asking if he can go outside if he has a visitor but I fear he would use meth so I am not approving him of going outside or off unit without staff 05/30/20: Patient had episode of CP last night and dyspnea Cardiology evaluated him today CXR ATX no evidence of sepsis or PNA Meth use hx has caused multiple medical issues 05/29/20: Patient remains stable Labile moods are from meth use hx Asking if he could go outside with his friend tomorrow and I stated likely not due to his meth use and could take [place] at that time 05/28/20: Labile behavior h/o meth use has been a factor in this behavior Obsessed about where his girlfriend is Lungs are clear 05/27/20: Pt doing a lot better Slept in today Working with therapy Right-sided weakness is significant Will work through things as they come Hopefully wont leave AMA this time Review of Systems General: Fatigue, Malaise Neurological: Weakness, Incoordination Focused Exam Lactate Level 05/30/20 09:00: Lactic Acid Level 1.47 Objective Exam Vital Signs Vital Signs Date Time Temp Pulse Resp B/P (MAP) Pulse Ox O2 Delivery O2 Flow Rate FiO2 06/01/20 16:00 36.0 71 20 129/65 (86) 95 Room Air Capillary Refill : General Appearance: No Apparent Distress, WD/WN, Chronically ill, Thin HEENT: PERRL/EOMI, Normal ENT Inspection, Pharynx Normal Neck: Full Range of Motion, Normal Inspection, Non Tender, Supple, Carotid Bruit Respiratory: Chest Non Tender, Lungs Clear, Normal Breath Sounds, No Accessory Muscle Use, No Respiratory Distress Cardiovascular: Regular Rate, Rhythm, No Edema, No Gallop, No JVD, No Murmur, Normal Peripheral Pulses Gastrointestinal: Normal Bowel Sounds, No Organomegaly, No Pulsatile Mass, Non Tender, Soft Back: Normal Inspection, No CVA Tenderness, No Vertebral Tenderness Extremity: Normal Capillary Refill, Normal Inspection, Normal Range of Motion, Non Tender, No Calf Tenderness, No Pedal Edema Neurologic/Psychiatric: Alert, Oriented x3, Normal Mood/Affect, Motor Weakness (right sided weakness 3/5 leg and arm) Skin: Normal Color, Warm/Dry Lymphatic: No Adenopathy Results/Procedures Lab Laboratory Tests 06/01/20 05:40 Patient resulted labs reviewed. FIM Transfers Therapy Code Descriptions/Definitions Functional [place] Measure: 0=Not Assessed/NA 4=Minimal Assistance 1=Total Assistance 5=Supervision or Setup 2=Maximal Assistance 6=Modified [place] 3=Moderate Assistance 7=Complete IndependenceSCALE: Activities may be completed with or without assistive devices. 8-Jxpcsvnxto-cwnkujg completes the activity by him/herself with no assistance from a helper. 5-Set-up or Clean-up Assistance-helper sets up or cleans up; patient completes activity. [place] assists only prior to or following the activity. 4-Supervision or Touching Assistance-helper provides verbal cues and/or touching/steadying and/or contact guard assistance as patient completes activity. Assistance may be provided throughout the activity or intermittently. 3-Partial/Moderate Assistance-helper does LESS THAN HALF the effort. [place] lifts, holds or supports trunk or limbs, but provides less than half the effort. 2-Substantial/Maximal Assistance-helper does MORE THAN HALF the effort. [place] lifts or holds trunk or limbs and provides more than half the effort. 4-Ojvpkcmzh-odnrpy does ALL the effort. Patient does none of the effort to complete the activity. Or, the assistance of 2 or more helpers is required for the patient to complete the activity. If activity was not attempted, code reason: 7-Patient Refused. 9-Not Applicable-not attempted and the patient did not perform the activity before the current illness, exacerbation or injury. 10-Not Attempted due to Environmental Limitations-(lack of equipment, weather restraints, etc.). 88-Not Attempted due to Medical Conditions or Safety Concerns. Roll Left to Right (QC): 4 Sit to Lying (QC): 4 Sit to Stand (QC): 4 Chair/Qou-jl-Mjepv Xfer(QC): 4 Car Transfer (QC): 3 (mod) Gait Training Does the Patient Walk?: Yes Distance: 2 x 20' Walk 10 feet (QC): 3 Walk 50 ft with 2 Turns(QC): 88 Walk 150 ft (QC): 88 Walking 10ft/uneven surface-QC: 88 Gait Persons Needed: 1 Gait Assistive Device: FWW Wheelchair Training Does the Pt Use a Wheelchair?: Yes Wheel 50 ft with 2 turns (QC): 6 Wheel 150 ft (QC): 4 Type of Wheelchair: Manual Stair Training 1 Step (curb) (QC): 88 4 Steps (QC): 88 12 Steps (QC): 88 Balance Picking up an Object (QC): 88 ADL-Treatment Eating (QC): 5 Oral Hygiene (QC): 7 (Pt declined as he does not have any teeth.) Shower/Bathe Self (QC): 4 (CGA in stand at GBs.) Upper Body Dressing (QC): 5 (set up) Lower Body Dressing (QC): 3 (Min A with RLE, pt able to complete pant hike with min A balance, and able to complete LLE.) On/Off Footwear (QC): 3 (Pt able to don/doff LLE gripper sock, assist with doffing/donning R.) Toileting Hygiene (QC): 4 (CGA in stand for pant hike, pt able to manage clothing.) Toilet Transfer (QC): 4 (CGA on/off toilet.) Assessment/Plan Assessment and Plan Assess & Plan/Chief Complaint Assessment: 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 05/03/20 Plan: IRF protocol Monitor closely Supportive care Hope does not leave AMA 05/28/20: Monitor closely Very labile behavior 05/29/20: Monitor closely Meth use has caused labile behavior 05/30/20: CP and dyspnea monitored 05/31/20: Monitor closely Not allowed to leave the unit without staff due to what I suspect as planning to use meth 06/01/20: Monitor closely Continue treatment (1) CVA (cerebral vascular accident) Status: Acute (2) Methamphetamine abuse Status: Acute (3) HLD (hyperlipidemia) Status: Chronic (4) Carotid stenosis Status: Acute (5) HTN (hypertension) Status: Acute (6) Cannabis abuse Status: Acute (7) Hemiparesis of right dominant side Status: Acute (8) Very heavy cigarette smoker (40 or more per day) Status: Acute (9) Illicit drug use Status: Acute (10) Hypertension (11) COPD (chronic obstructive pulmonary disease) PRUDENCE BECK DO Jun 01, 2020 10:24
--- NOTE | 2020-06-01 10:37 | Physical Therapy Daily Note ---
PT Daily Note-Current Subjective Patient reports no pain pre tx, was seated upright in w/c in therapy gym pre tx, and consented to physical therapy. Mental Status Patient Orientation: Person, Place, Time, Normal For Age Transfers SCALE: Activities may be completed with or without assistive devices. 7-Jvzyxoloxu-alnsrkv completes the activity by him/herself with no assistance from a helper. 5-Set-up or Clean-up Assistance-helper sets up or cleans up; patient completes activity. [place] assists only prior to or following the activity. 4-Supervision or Touching Assistance-helper provides verbal cues and/or touching/steadying and/or contact guard assistance as patient completes activity. Assistance may be provided throughout the activity or intermittently. 3-Partial/Moderate Assistance-helper does LESS THAN HALF the effort. [place] lifts, holds or supports trunk or limbs, but provides less than half the effort. 2-Substantial/Maximal Assistance-helper does MORE THAN HALF the effort. [place] lifts or holds trunk or limbs and provides more than half the effort. 5-Jjtofqbvt-eviljx does ALL the effort. Patient does none of the effort to complete the activity. Or, the assistance of 2 or more helpers is required for the patient to complete the activity. If activity was not attempted, code reason: 7-Patient Refused. 9-Not Applicable-not attempted and the patient did not perform the activity before the current illness, exacerbation or injury. 10-Not Attempted due to Environmental Limitations-(lack of equipment, weather restraints, etc.). 88-Not Attempted due to Medical Conditions or Safety Concerns. Sit to Stand (QC): 3 Chair/Jkf-pk-Poxsu Xfer(QC): 3 Patient required min Ax1 with sit <-> stand transfers, and had to take multiple attempts before accomplishing transfer. Weight Bearing Full Weight Bearing Full Weight Bearing Gait Training Does the Patient Walk?: Yes Distance: 10', 6', 3' Walk 10 feet (QC): 4 Gait Assistive Device: FWW CGA. Patient continues to demonstrate knee buckling on the L LE with gait that results in patient having to sit in w/c, despite having full functional strength of L LE. Exercises Seated Therapy Exercises: Ankle pumps (unable to complete on L LE), Long arc quads (Only able to complete 6 reps on L LE), Hip flexion, Hip abd/add (small ball, RTB) Seated Reps: 15 NuStep Minutes: 8 (Patient was preoccupied with phone, did not demonstrate full effort with exercise.) NuStep Workload: 4 Treatments LE strengthening, ROM, gait, transfers Assessment Current Status: Poor Progress, Fair Progress Patient continues to demonstrate stagnation in gait distance and endurance. PT Short Term Goals Short Term Goals Time Frame: Jun 02, 2020 Roll Left & Right: 4 (SBA) Sit to lyin (SBA) Lying to sitting on side of be: 4 (SBA) Sit to stand: 4 (CGA) Chair/itc-lk-kqzwd transfer: 4 (min) Toilet transfer: 4 (min) Car transfer: 4 (min) Walk 10 feet: 4 (min) Walk 50 feet with two turns: 4 (min) 1 step (curb): 4 (CGA) Wheel 50ft w/2 turns: 4 Wheel 150 feet: 4 PT Shelter Goals Accident Investigator Goals PT Shelter Goals Time Frame: Jun 16, 2020 Roll Left & Right (QC): 5 Sit to Lying (QC): 5 Lying-Sitting on Side/Bed(QC): 5 Sit to Stand (QC): 5 Chair/Lkp-oe-Hysvd Xfer(QC): 4 (CGA) Toilet Transfer (QC): 4 (CGA) Car Transfer (QC): 4 (CGA) Does the Patient Walk: Yes Walk 10 feet (QC): 4 (CGA) Walk 50ft with 2 Turns (QC): 4 (CGA) Walk 150 ft (QC): 4 (CGA) Walking 10ft on Uneven Surface: 4 (CGA) 1 Step (curb) (QC): 4 (CGA) 4 Steps (QC): 4 (CGA) 12 Steps (QC): 88 Picking up an Object (QC): 4 (CGA) Does the Pt use WC or Scooter?: Yes Wheel 50 feet with 2 turns (QC: 6 Type: Manual Wheel 150 feet: 6 Type: Manual PT Plan Problem List Problem List: Activity Tolerance, Functional Strength, Safety, Balance, Gait, Transfer, Bed Mobility, ROM Treatment/Plan Treatment Plan: Continue Plan of Care Treatment Plan: Bed Mobility, Education, Functional Activity [place], Functional Strength, Group Therapy, Gait, Safety, Therapeutic Exercise, Transfers Treatment Duration: Jun 16, 2020 Frequency: At least 5 of 7 days/Wk (IRF) Estimated Hrs Per Day: 1.5 hours per day Patient and/or Family Agrees t: Yes Safety Risks/Education Patient Education: Gait Training, Transfer Techniques, Correct Positioning, Safety Issues Teaching Recipient: Patient Teaching Methods: Demonstration, Discussion Response to Teaching: Verbalize Understanding, Return Demonstration, Reinforcement Needed Time/GCodes Time In: 1000 Time Out: 1100 Total Billed Treatment Time: 60 Total Billed Treatment 1 visit: GT: 15' FA: 15' EX x2: 30' IAN PETTY PT Jun 01, 2020 10:37
--- NOTE | 2020-06-01 14:27 | Occupational Ther Daily Note ---
OT Current Status-Daily Note Subjective Pt laying in bed, agreeable to OT/PT cotreat Mental Status/Objective Patient Orientation: Person, Place, Time, Situation ADL-Treatment Therapy Code Descriptions/Definitions Functional [place] Measure: 0=Not Assessed/NA 4=Minimal Assistance 1=Total Assistance 5=Supervision or Setup 2=Maximal Assistance 6=Modified [place] 3=Moderate Assistance 7=Complete IndependenceSCALE: Activities may be completed with or without assistive devices. 2-Pozxmobpbz-jhksoth completes the activity by him/herself with no assistance from a helper. 5-Set-up or Clean-up Assistance-helper sets up or cleans up; patient completes activity. [place] assists only prior to or following the activity. 4-Supervision or Touching Assistance-helper provides verbal cues and/or touching/steadying and/or contact guard assistance as patient completes activity. Assistance may be provided throughout the activity or intermittently. 3-Partial/Moderate Assistance-helper does LESS THAN HALF the effort. [place] lifts, holds or supports trunk or limbs, but provides less than half the effort. 2-Substantial/Maximal Assistance-helper does MORE THAN HALF the effort. [place] lifts or holds trunk or limbs and provides more than half the effort. 0-Grrmpjvce-tforjg does ALL the effort. Patient does none of the effort to complete the activity. Or, the assistance of 2 or more helpers is required for the patient to complete the activity. If activity was not attempted, code reason: 7-Patient Refused. 9-Not Applicable-not attempted and the patient did not perform the activity before the current illness, exacerbation or injury. 10-Not Attempted due to Environmental Limitations-(lack of equipment, weather restraints, etc.). 88-Not Attempted due to Medical Conditions or Safety Concerns. Eating (QC): 6 (IND with sandwich and drink) Other Treatment OT/PT cotreat due to skill of 2 clinicians required which a equipment maint tech could not perform in order to coordinate UE/LEs, decrease fall risk, and due to pt's limitations in strength, activity tolerance, mobility, and transfers. OT focused on UE placement, cues for sequencing and safety, PT focused on LE placement, gross overall movements, and ambulation. Pt laying in bed, transferred supine to sit EOB, then used FWW to ambulate out of room with w/c follow. Pt's legs gave out requiring assistance x2 to sit into w/c. Pt then ambulated again in ARU common area, legs giving out again, requiring assistance to sit back in w/c. Jorge walker then used, required step by step cues for proper sequencing of LEs and walker. Pt again sat abruptly into w/c, noted with this sit pt's LLE approximately 1.5 feet off of floor (bearing weight through RLE & BUES). Pt attempted ambulation again with hemiwalker, this time able to state he feels like his legs are going to give out, cues to reach back for arm rest with sit. Pt transferred back to bed, SPT. Please refer to PT note for QC scores and distance ambulated. Post tx, pt laying in bed, call light in reach and all needs met. Education OT Patient Education: Correct positioning, Exercise program, Modified ADL techniques, Progress toward Goal/Update tx plan, Purpose of tx/functional activities Teaching Recipient: Patient Teaching Methods: Discussion Response to Teaching: Unable to Return Demonstration OT Short Term Goals Short Term Goals Time Frame: Jun 02, 2020 Eatin Oral hygiene: 88 Toileting hygiene: 3 Shower/bathe self: 3 Upper body dressin Lower body dressin Putting on/taking off footwear: 3 OT Wrapper Hand Goals [facility] Goals Time Frame: Jun 16, 2020 Eating (QC): 6 Oral Hygiene (QC): 88 Toileting Hygiene (QC): 6 Shower/Bathe Self (QC): 4 Upper Body Dressing (QC): 6 Lower Body Dressing (QC): 6 On/Off Footwear (QC): 6 Additional Goals: 1-Demonstrate ADL Tasks, 2-Verbalize Understanding, 3-ImproveStrength/[place] 1=Demonstrate adherence to instructed precautions during ADL tasks. 2=Patient will verbalize/demonstrate understanding of assistive devices/modifications for ADL. 3=Patient will improve strength/tolerance for activity to enable patient to perform ADL's. OT Education/Plan Problem List/Assessment Assessment: Decreased Activ Tolerance, Decreased UE Strength, Impaired Funct Balance, Impaired I ADL's, Impaired Self-Care Skills, Restricted Funct UE ROM Discharge Recommendations Plan/Recommendations: Continue POC Treatment Plan/Plan of Care Patient would benefit from OT for education, treatment and training to promote independence in ADL's, mobility, safety and/or upper extremity function for ADL's. Plan of Care: ADL Retraining, Functional Mobility, Group Exercise/Act as Ind, UE Funct Exercise/Act Treatment Duration: Jun 16, 2020 Frequency: At least 5 of 7 days/Wk (IRF) Estimated Hrs Per Day: 1.5 hours per day Agreement: Yes Rehab Potential: Fair Time/GCodes Start Time: 13:00 Stop Time: 13:30 Total Time Billed (hr/min): 30 Billed Treatment Time cotreat x30' 1, FA 2 MILAD HENDRICKSON OT Jun 01, 2020 14:27
--- NOTE | 2020-06-01 15:01 | Physical Therapy Daily Note ---
PT Daily Note-Current Subjective Patient supine pre tx, consented to therapy. Did not report pain complaints. Appearance Patient supine post tx, with call button and tray table within reach. Mental Status Patient Orientation: Person, Confused, Place Transfers SCALE: Activities may be completed with or without assistive devices. 3-Wbyswooltw-blrjdlm completes the activity by him/herself with no assistance from a helper. 5-Set-up or Clean-up Assistance-helper sets up or cleans up; patient completes activity. [place] assists only prior to or following the activity. 4-Supervision or Touching Assistance-helper provides verbal cues and/or touching/steadying and/or contact guard assistance as patient completes activity. Assistance may be provided throughout the activity or intermittently. 3-Partial/Moderate Assistance-helper does LESS THAN HALF the effort. [place] lifts, holds or supports trunk or limbs, but provides less than half the effort. 2-Substantial/Maximal Assistance-helper does MORE THAN HALF the effort. [place] lifts or holds trunk or limbs and provides more than half the effort. 5-Kpdvcyhml-dlttap does ALL the effort. Patient does none of the effort to complete the activity. Or, the assistance of 2 or more helpers is required for the patient to complete the activity. If activity was not attempted, code reason: 7-Patient Refused. 9-Not Applicable-not attempted and the patient did not perform the activity before the current illness, exacerbation or injury. 10-Not Attempted due to Environmental Limitations-(lack of equipment, weather restraints, etc.). 88-Not Attempted due to Medical Conditions or Safety Concerns. Sit to Stand (QC): 3 (min) Weight Bearing Full Weight Bearing Full Weight Bearing Gait Training Does the Patient Walk?: Yes Distance: 20', 15', 20' Walk 10 feet (QC): 3 (mod) Gait Assistive Device: FWW Patient ambulated first 2 attempts with FWW. Patient has abnormal gait pattern, and frequently experiences knee buckling that causes him to immediately need a seat. Cause of knee buckling has not been identified. Therefore, we attempted last ambulation with suzanne-walker. Patient had difficulty sequencing movement, but was able to bear more weight on L LE. Treatments Co-treated with OT secondary to patient decreased endurance, UE and LE impairments, and increased fall risk with. PT focused on transfers and proper positioning with gait, and OT focused on UE positioning and energy conservation. Assessment Current Status: Fair Progress Patient was able to ambulate a further cumulative distance during this afternoon session, but does not demonstrate progression in overall gait steadiness or safety with return home. Patient has confusing issues during ambulation, not surprising he has some right knee buckling but also has left knee buckling and at one point purposefully lifted his left leg off the ground when his right knee buckled and would not put it down to bear weight and stand back up. PT Short Term Goals Short Term Goals Time Frame: Jun 02, 2020 Roll Left & Right: 4 (SBA) Sit to lyin (SBA) Lying to sitting on side of be: 4 (SBA) Sit to stand: 4 (CGA) Chair/dbz-cd-fgowj transfer: 4 (min) Toilet transfer: 4 (min) Car transfer: 4 (min) Walk 10 feet: 4 (min) Walk 50 feet with two turns: 4 (min) 1 step (curb): 4 (CGA) Wheel 50ft w/2 turns: 4 Wheel 150 feet: 4 PT Fpc Goals Fpc Goals PT Fpc Goals Time Frame: Jun 16, 2020 Roll Left & Right (QC): 5 Sit to Lying (QC): 5 Lying-Sitting on Side/Bed(QC): 5 Sit to Stand (QC): 5 Chair/Aab-zl-[place] Xfer(QC): 4 (CGA) Toilet Transfer (QC): 4 (CGA) Car Transfer (QC): 4 (CGA) Does the Patient Walk: Yes Walk 10 feet (QC): 4 (CGA) Walk 50ft with 2 Turns (QC): 4 (CGA) Walk 150 ft (QC): 4 (CGA) Walking 10ft on Uneven Surface: 4 (CGA) 1 Step (curb) (QC): 4 (CGA) 4 Steps (QC): 4 (CGA) 12 Steps (QC): 88 Picking up an Object (QC): 4 (CGA) Does the Pt use WC or Scooter?: Yes Wheel 50 feet with 2 turns (QC: 6 Type: Manual Wheel 150 feet: 6 Type: Manual PT Plan Problem List Problem List: Activity Tolerance, Functional Strength, Safety, Balance, Gait, Transfer, Bed Mobility, ROM Treatment/Plan Treatment Plan: Continue Plan of Care Treatment Plan: Bed Mobility, Education, Functional Activity [place], Functional Strength, Group Therapy, Gait, Safety, Therapeutic Exercise, Transfers Treatment Duration: Jun 16, 2020 Frequency: At least 5 of 7 days/Wk (IRF) Estimated Hrs Per Day: 1.5 hours per day Patient and/or Family Agrees t: Yes Safety Risks/Education Patient Education: Gait Training, Transfer Techniques, Correct Positioning, Safety Issues Teaching Recipient: Patient Teaching Methods: Demonstration, Discussion Response to Teaching: Verbalize Understanding, Return Demonstration, Reinforcement Needed Time/GCodes Time In: 1300 Time Out: 1330 Total Billed Treatment Time: 30 Total Billed Treatment 1 visit: GT: 30' IAN PETTY PT Jun 01, 2020 15:01
[2020-06-01 16:00] VITALS: BP 129/65
[2020-06-01] MEDS: BACLOFEN 10 MG (LIORESAL) TAB PO PRN (21:37)
--- NOTE | 2020-06-02 05:30 | PM&R Progress Note ---
Subjective HPI/CC On Admission Date Seen by Provider: Jun 02, 2020 Time Seen by Provider: 08:30 Subjective/Events-last exam 06/02/20: Pt making some progress Curses a lot Impaired sleep but he did have some rest last night Constantly wants to go outside and I know that is to be able to smoke meth Very difficult situation 06/01/20: Pt having no new issues Very complex issues because of meth use and behaviors Working hard but likely will need a chcf Very difficult situation, social-handy 05/31/20: Patient cursing at his phone about his girlfriend Meth use has changed brain function BM treatment ordered Patient still asking if he can go outside if he has a visitor but I fear he would use meth so I am not approving him of going outside or off unit without staff 05/30/20: Patient had episode of CP last night and dyspnea Cardiology evaluated him today CXR ATX no evidence of sepsis or PNA Meth use hx has caused multiple medical issues 05/29/20: Patient remains stable Labile moods are from meth use hx Asking if he could go outside with his friend tomorrow and I stated likely not due to his meth use and could take [place] at that time 05/28/20: Labile behavior h/o meth use has been a factor in this behavior Obsessed about where his girlfriend is Lungs are clear 05/27/20: Pt doing a lot better Slept in today Working with therapy Right-sided weakness is significant Will work through things as they come Hopefully wont leave AMA this time Review of Systems General: Fatigue, Malaise Focused Exam Lactate Level Objective Exam Vital Signs Vital Signs Date Time Temp Pulse Resp B/P (MAP) Pulse Ox O2 Delivery O2 Flow Rate FiO2 06/02/20 22:46 36.8 72 20 132/58 (82) 93 Room Air Capillary Refill : General Appearance: No Apparent Distress, WD/WN, Chronically ill, Thin HEENT: PERRL/EOMI, Normal ENT Inspection, Pharynx Normal Neck: Full Range of Motion, Normal Inspection, Non Tender, Supple, Carotid Bruit Respiratory: Chest Non Tender, Lungs Clear, Normal Breath Sounds, No Accessory Muscle Use, No Respiratory Distress Cardiovascular: Regular Rate, Rhythm, No Edema, No Gallop, No JVD, No Murmur, Normal Peripheral Pulses Gastrointestinal: Normal Bowel Sounds, No Organomegaly, No Pulsatile Mass, Non Tender, Soft Back: Normal Inspection, No CVA Tenderness, No Vertebral Tenderness Extremity: Normal Capillary Refill, Normal Inspection, Normal Range of Motion, Non Tender, No Calf Tenderness, No Pedal Edema Neurologic/Psychiatric: Alert, Oriented x3, Normal Mood/Affect, Motor Weakness (right sided weakness 3/5 leg and arm) Skin: Normal Color, Warm/Dry Lymphatic: No Adenopathy Results/Procedures Lab Patient resulted labs reviewed. FIM Transfers Therapy Code Descriptions/Definitions Functional [place] Measure: 0=Not Assessed/NA 4=Minimal Assistance 1=Total Assistance 5=Supervision or Setup 2=Maximal Assistance 6=Modified [place] 3=Moderate Assistance 7=Complete IndependenceSCALE: Activities may be completed with or without assistive devices. 9-Dyriiwnmmu-rpxwkey completes the activity by him/herself with no assistance from a helper. 5-Set-up or Clean-up Assistance-helper sets up or cleans up; patient completes activity. [place] assists only prior to or following the activity. 4-Supervision or Touching Assistance-helper provides verbal cues and/or touching/steadying and/or contact guard assistance as patient completes activity. Assistance may be provided throughout the activity or intermittently. 3-Partial/Moderate Assistance-helper does LESS THAN HALF the effort. [place] lifts, holds or supports trunk or limbs, but provides less than half the effort. 2-Substantial/Maximal Assistance-helper does MORE THAN HALF the effort. [place] lifts or holds trunk or limbs and provides more than half the effort. 1-Gnlhtihmq-ljbuyg does ALL the effort. Patient does none of the effort to complete the activity. Or, the assistance of 2 or more helpers is required for the patient to complete the activity. If activity was not attempted, code reason: 7-Patient Refused. 9-Not Applicable-not attempted and the patient did not perform the activity before the current illness, exacerbation or injury. 10-Not Attempted due to Environmental Limitations-(lack of equipment, weather restraints, etc.). 88-Not Attempted due to Medical Conditions or Safety Concerns. Roll Left to Right (QC): 4 Sit to Lying (QC): 4 Sit to Stand (QC): 3 (min) Chair/Fqy-xi-Fiadv Xfer(QC): 3 Car Transfer (QC): 3 (mod) Gait Training Does the Patient Walk?: Yes Distance: 20', 15', 20' Walk 10 feet (QC): 3 (mod) Walk 50 ft with 2 Turns(QC): 88 Walk 150 ft (QC): 88 Walking 10ft/uneven surface-QC: 88 Gait Persons Needed: 1 Gait Assistive Device: FWW Wheelchair Training Does the Pt Use a Wheelchair?: Yes Wheel 50 ft with 2 turns (QC): 6 Wheel 150 ft (QC): 4 Type of Wheelchair: Manual Stair Training 1 Step (curb) (QC): 88 4 Steps (QC): 88 12 Steps (QC): 88 Balance Picking up an Object (QC): 88 ADL-Treatment Eating (QC): 6 (IND with sandwich and drink) Oral Hygiene (QC): 7 (Pt declined as he does not have any teeth.) Shower/Bathe Self (QC): 4 (CGA in stand at GBs.) Upper Body Dressing (QC): 5 (set up) Lower Body Dressing (QC): 3 (Min A with RLE, pt able to complete pant hike with min A balance, and able to complete LLE.) On/Off Footwear (QC): 3 (Pt able to don/doff LLE gripper sock, assist with doffing/donning R.) Toileting Hygiene (QC): 4 (CGA in stand for pant hike, pt able to manage clothing.) Toilet Transfer (QC): 4 (CGA on/off toilet.) Assessment/Plan Assessment and Plan Assess & Plan/Chief Complaint Assessment: 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 05/03/20 Plan: IRF protocol Monitor closely Supportive care Hope does not leave AMA 05/28/20: Monitor closely Very labile behavior 05/29/20: Monitor closely Meth use has caused labile behavior 05/30/20: CP and dyspnea monitored 05/31/20: Monitor closely Not allowed to leave the unit without staff due to what I suspect as planning to use meth 06/01/20: Monitor closely Continue treatment 06/02/20: Monitor closely Cannot go outside as he is requesting daily due to high risk for using meth (1) CVA (cerebral vascular accident) Status: Acute (2) Methamphetamine abuse Status: Acute (3) HLD (hyperlipidemia) Status: Chronic (4) Carotid stenosis Status: Acute (5) HTN (hypertension) Status: Acute (6) Cannabis abuse Status: Acute (7) Hemiparesis of right dominant side Status: Acute (8) Very heavy cigarette smoker (40 or more per day) Status: Acute (9) Illicit drug use Status: Acute (10) Hypertension (11) COPD (chronic obstructive pulmonary disease) PRUDENCE BECK DO Jun 02, 2020 05:30
[2020-06-02 06:00] VITALS: BP 148/62
[2020-06-02 08:00] VITALS: BP 125/65
[2020-06-02] MEDS: GABAPENTIN 300 MG (NEURONTIN) CAP PO SCH ×3 (08:57→21:22)
[2020-06-02] MEDS: CLOPIDOGREL 75 MG (PLAVIX) TABLET PO SCH (08:57)
[2020-06-02] MEDS: amLODIPine 5 MG (NORVASC) TAB PO SCH (08:57)
[2020-06-02] MEDS: lisINopril 20 MG (PRINIVIL) TABLET PO SCH (08:57)
[2020-06-02] MEDS: ASPIRIN 81 MG CHEW (CHILDREN'S ASA) PO SCH (08:57)
[2020-06-02] MEDS: ENOXAPARIN 40 MG/0.4 ML (LOVENOX) SYR SC SCH (08:59)
[2020-06-02] MEDS: DOCUSATE SODIUM 100 MG (COLACE) CAP PO SCH ×2 (09:00→21:29)
[2020-06-02] MEDS: SENNA W/DOCUSATE (SENOKOT S) TABLET PO SCH ×2 (09:00→21:29)
[2020-06-02] MEDS: polyethylene glycoL POWDER 17 GM (MIRALAX) PACK PO SCH ×2 (09:00→19:52)
[2020-06-02] MEDS: FLUTICASONE NASAL SPRAY (FLONASE) 16 GM BTL NS SCH ×2 (09:00→21:23)
--- NOTE | 2020-06-02 09:28 | Cardiology Progress Note ---
Subjective Date Seen by Provider: Jun 02, 2020 Time Seen by Provider: 08:30 Subjective/Events-last exam Patient sitting up chair, reports frustration with not being able to use right arm. Review of Systems General: No Chills, No Night Sweats, No Fatigue, No Malaise, No Appetite, No Other HEENT: No Head Aches, No Visual Changes, No Eye Pain, No Ear Pain, No Dysphasia, No Sinus Congestion, No Post Nasal Drip, No Sore Throat, No Other Pulmonary: No Dyspnea, No Cough, No Pleuritic Chest Pain, No Other Cardiovascular: No: Chest Pain, Palpitations, Orthopnea, Paroxysmal Noc. Dyspnea, Edema, Lt Headedness, Other Objective-Cardiology Exam Last Set of Vital Signs Vital Signs 06/02/20 06/02/20 06:00 10:24 Temp 36.3 Pulse 57 Resp 20 B/P (MAP) 148/62 (90) Pulse Ox 94 O2 Delivery Room Air Capillary Refill : I&O Intake and Output 06/02/20 00:00 Intake Total 1390 ml Output Total 1675 ml Balance -285 ml Intake Oral 1390 ml Output Urine Total 1675 ml # Voids 1 General: Alert, Oriented X3, Cooperative HEENT: Atraumatic, PERRLA Neck: Supple, No JVD, No Thyromegaly Lungs: Clear to Auscultation, Normal Air Movement Heart: Regular Rate, Normal S1, Normal S2 Abdomen: Soft, No Tenderness Extremities: No Clubbing, No Edema Skin: No Rashes, No Significant Lesion Neuro: Normal Speech, Other (right sided hemiparesis) A/P-Cardiology Admission Diagnosis CVA CAD HTN HLP Assessment/Plan Chest pain, shortness of breath, resolved, no further episodes were reported. Continue to monitor Recurrent CVA d/t Carotid artery stenosis, had a stroke in December 2019 resulted in right-sided weakness, had left-sided weakness on this admission. He had history of carotid stenting at [facility] in January 2020 after the first stroke, he is known to have complete occlusion of the left common and internal carotid arteries, stent of the right carotid artery. Most recent CTA head done 05/23/20 showing internal thrombus within the right internal carotid artery stent which is slightly less prominent than on the prior examination. [facility] neurology consulted and recommend continuation of ASA and Plavix. Does not warrant intervention at this time. Coronary artery disease, history of cardiac catheterization in 2013 showing patent stents in the proximal LAD, known to have Promus element 2.75 by 16mm placed in July 2012, the proximal stent is Premier 3 x 16 placed in June 2013, had 50-60 percent mid LAD stenosis, clinically stable, continue to monitor. Maintained on ASA and Plavix. Hypertension, controlled, continue to monitor. Hyperlipidemia, monitor lipids Tobaccoism, educated on smoking cessation H/O marijuana and heavy EtOH use Methamphetamine abuse; (+) this admission H/O hepatitis C followed at the [facility] COPD Chronically abnormal EKG that shows LVH with repolarization abnormalities Patient was seen and evaluated with Ebony, examination performed, management plan was discussed, agree with the current scribed note, I made few changes to the note using Italic font Patient was seen at bedside, he was very emotional about his right hemiplegia and difficulty of eating, he is right-handed and cannot use his hand. Discussed his management plan, will continue maximizing medical therapy, continue with physical therapy Patient was encouraged to continue with compliance with avoiding tobacco products and compliance with medications and compliance with physical therapy plan EBONY WARREN Jun 02, 2020 09:28 DEMETRIO ALVAREZ MD Jun 02, 2020 13:26
--- NOTE | 2020-06-02 10:01 | Physical Therapy Daily Note ---
PT Daily Note-Current Subjective Patient was seated upright pre tx, was agitated before session began. Stated he didn't want to participate in therapy, but he would anyways. Appearance Patient was seated upright in chair, with call button within reach and tray table positioned in front. Mental Status Patient Orientation: Person, Place, Time, Situation Transfers SCALE: Activities may be completed with or without assistive devices. 9-Bgubpbgfum-uxupths completes the activity by him/herself with no assistance from a helper. 5-Set-up or Clean-up Assistance-helper sets up or cleans up; patient completes activity. [place] assists only prior to or following the activity. 4-Supervision or Touching Assistance-helper provides verbal cues and/or touching/steadying and/or contact guard assistance as patient completes activity. Assistance may be provided throughout the activity or intermittently. 3-Partial/Moderate Assistance-helper does LESS THAN HALF the effort. [place] lifts, holds or supports trunk or limbs, but provides less than half the effort. 2-Substantial/Maximal Assistance-helper does MORE THAN HALF the effort. [place] lifts or holds trunk or limbs and provides more than half the effort. 4-Fljoaigzy-ojdnhv does ALL the effort. Patient does none of the effort to complete the activity. Or, the assistance of 2 or more helpers is required for the patient to complete the activity. If activity was not attempted, code reason: 7-Patient Refused. 9-Not Applicable-not attempted and the patient did not perform the activity before the current illness, exacerbation or injury. 10-Not Attempted due to Environmental Limitations-(lack of equipment, weather restraints, etc.). 88-Not Attempted due to Medical Conditions or Safety Concerns. Sit to Stand (QC): 3 Chair/Dcx-kd-Zlmds Xfer(QC): 3 Min to CGA for sit <-> stand. Patient required less assistance as treatment session continued. Weight Bearing Full Weight Bearing Full Weight Bearing Gait Training Distance: 120' x2 Walk 10 feet (QC): 4 (CGA) Walk 50 ft with 2 Turns(QC): 4 (CGA) Gait Assistive Device: FWW Patient was able to walk first distance without use of rest break. Patient stated he felt more stable, but still demonstrated occasional unsteadiness in LE's. During second ambulation, patient required one rest break. Neuromuscular Focused on static and dynamic standing balance. Did 20 reps x2 of standing weight shifts putting input into both bilateral UE and LE's. Treatments Co-treated with OT secondary to patient fall risk, UE and LE impairements, and decreased balance with functional mobility. PT focused on transfers, balance with UE activities, and gait training. OT focused on using UE's outside [place], weight-bearing through UE's, and energy conservation. Assessment Current Status: Fair Progress improving ambulation PT Short Term Goals Short Term Goals Time Frame: Jun 02, 2020 Roll Left & Right: 4 (SBA) Sit to lyin (SBA) Lying to sitting on side of be: 4 (SBA) Sit to stand: 4 (CGA) Chair/pxf-ik-vuuhd transfer: 4 (min) Toilet transfer: 4 (min) Car transfer: 4 (min) Walk 10 feet: 4 (min) Walk 50 feet with two turns: 4 (min) 1 step (curb): 4 (CGA) Wheel 50ft w/2 turns: 4 Wheel 150 feet: 4 PT Digital Media Intern Goals Chcf Goals PT Digital Media Intern Goals Time Frame: Jun 16, 2020 Roll Left & Right (QC): 5 Sit to Lying (QC): 5 Lying-Sitting on Side/Bed(QC): 5 Sit to Stand (QC): 5 Chair/Ohf-zy-Nberh Xfer(QC): 4 (CGA) Toilet Transfer (QC): 4 (CGA) Car Transfer (QC): 4 (CGA) Does the Patient Walk: Yes Walk 10 feet (QC): 4 (CGA) Walk 50ft with 2 Turns (QC): 4 (CGA) Walk 150 ft (QC): 4 (CGA) Walking 10ft on Uneven Surface: 4 (CGA) 1 Step (curb) (QC): 4 (CGA) 4 Steps (QC): 4 (CGA) 12 Steps (QC): 88 Picking up an Object (QC): 4 (CGA) Does the Pt use WC or Scooter?: Yes Wheel 50 feet with 2 turns (QC: 6 Type: Manual Wheel 150 feet: 6 Type: Manual PT Plan Problem List Problem List: Activity Tolerance, Functional Strength, Safety, Balance, Gait, Transfer, Bed Mobility, ROM Treatment/Plan Treatment Plan: Continue Plan of Care Treatment Plan: Bed Mobility, Education, Functional Activity [place], Functional Strength, Group Therapy, Gait, Safety, Therapeutic Exercise, Transfers Treatment Duration: Jun 16, 2020 Frequency: At least 5 of 7 days/Wk (IRF) Estimated Hrs Per Day: 1.5 hours per day Patient and/or Family Agrees t: Yes Safety Risks/Education Patient Education: Gait Training, Transfer Techniques, Correct Positioning, Safety Issues Teaching Recipient: Patient Teaching Methods: Demonstration, Discussion Response to Teaching: Reinforcement Needed Time/GCodes Time In: 0900 Time Out: 1000 Total Billed Treatment Time: 60 Total Billed Treatment 1 visit EX 30' GT 30' IAN PETTY PT Jun 02, 2020 10:00
--- NOTE | 2020-06-02 10:11 | Occupational Ther Daily Note ---
OT Current Status-Daily Note Subjective Pt seated up in recliner, using mmwh-ju-hgrl feature on his phone. Pt indicates he does not want to talk to therapists at this time and just wants to get started with therapy. ADL-Treatment Therapy Code Descriptions/Definitions Functional [place] Measure: 0=Not Assessed/NA 4=Minimal Assistance 1=Total Assistance 5=Supervision or Setup 2=Maximal Assistance 6=Modified [place] 3=Moderate Assistance 7=Complete IndependenceSCALE: Activities may be completed with or without assistive devices. 0-Hlzjvorydk-pyethoo completes the activity by him/herself with no assistance from a helper. 5-Set-up or Clean-up Assistance-helper sets up or cleans up; patient completes activity. [place] assists only prior to or following the activity. 4-Supervision or Touching Assistance-helper provides verbal cues and/or touching/steadying and/or contact guard assistance as patient completes activity. Assistance may be provided throughout the activity or intermittently. 3-Partial/Moderate Assistance-helper does LESS THAN HALF the effort. [place] lifts, holds or supports trunk or limbs, but provides less than half the effort. 2-Substantial/Maximal Assistance-helper does MORE THAN HALF the effort. [place] lifts or holds trunk or limbs and provides more than half the effort. 2-Okmxeneki-pbkama does ALL the effort. Patient does none of the effort to complete the activity. Or, the assistance of 2 or more helpers is required for the patient to complete the activity. If activity was not attempted, code reason: 7-Patient Refused. 9-Not Applicable-not attempted and the patient did not perform the activity before the current illness, exacerbation or injury. 10-Not Attempted due to Environmental Limitations-(lack of equipment, weather restraints, etc.). 88-Not Attempted due to Medical Conditions or Safety Concerns. Other Treatment OT/PT cotreat due to skill of 2 clinicians required which a certified rehabilitation counselor could not perform in order to coordinate UE/LEs, decrease fall risk, and due to pt's limitations in strength, activity tolerance, mobility/transfers, and R side hemiparesis. OT focused on UE placement, cues for sequencing and safety, PT focused on LE placement, gross overall movements, and mobility/transfers. Pt used FWW to ambulate from room to therapy gym, slow pace, slight LOB at times (pt indicates he felt steady the entire time), but pt's legs did not give out or buckle on him. Pt took a seated rest break, then performed standing weight shifts in parallel bars. This was performed in order to increase proprioceptive input to R side, and to increase dynamic standing balance. Pt hit balloon back and forth with OT, first with L hand, then with R. Noted limited shoulder flexion on R side, pt would often keep R arm still and let balloon hit the floor. Pt indicates he was unable to reach the balloon. Pt then used FWW to return to his room, requiring 1 seated rest break. Pt transferred to recliner. With transfers, pt required cues for UE placement. Post tx, pt seated in recliner, call light in reach and all needs met. Please refer to PT note for QC scores for ambulation/transfers, and distance walked. Education OT Patient Education: Correct positioning, Modified ADL techniques, Progress toward Goal/Update tx plan, Purpose of tx/functional activities Teaching Recipient: Patient Teaching Methods: Discussion Response to Teaching: Verbalize Understanding, Reinforcement Needed OT Short Term Goals Short Term Goals Time Frame: Jun 02, 2020 Eatin Oral hygiene: 88 Toileting hygiene: 3 Shower/bathe self: 3 Upper body dressin Lower body dressin Putting on/taking off footwear: 3 OT Group Home Goals Group Home Goals Time Frame: Jun 16, 2020 Eating (QC): 6 Oral Hygiene (QC): 88 Toileting Hygiene (QC): 6 Shower/Bathe Self (QC): 4 Upper Body Dressing (QC): 6 Lower Body Dressing (QC): 6 On/Off Footwear (QC): 6 Additional Goals: 1-Demonstrate ADL Tasks, 2-Verbalize Understanding, 3- ImproveStrength/[place] 1=Demonstrate adherence to instructed precautions during ADL tasks. 2=Patient will verbalize/demonstrate understanding of assistive devices/modifications for ADL. 3=Patient will improve strength/tolerance for activity to enable patient to perform ADL's. OT Education/Plan Problem List/Assessment Assessment: Decreased Activ Tolerance, Decreased Safety Aware, Decreased UE Strength, Impaired Funct Balance, Impaired I ADL's, Impaired Self-Care Skills, Restricted Funct UE ROM Discharge Recommendations Plan/Recommendations: Continue POC Treatment Plan/Plan of Care Patient would benefit from OT for education, treatment and training to promote independence in ADL's, mobility, safety and/or upper extremity function for ADL's. Plan of Care: ADL Retraining, Functional Mobility, Group Exercise/Act as Ind, UE Funct Exercise/Act Treatment Duration: Jun 16, 2020 Frequency: At least 5 of 7 days/Wk (IRF) Estimated Hrs Per Day: 1.5 hours per day Agreement: Yes Rehab Potential: Fair Time/GCodes Start Time: 09:00 Stop Time: 10:00 Total Time Billed (hr/min): 60 Billed Treatment Time 1, FA 4 MILAD HENDRICKSON OT Jun 02, 2020 10:11
[2020-06-02] MEDS: UMECLIDINIUM BROMIDE (INCRUSE ELLIPTA) 7'S IH SCH (10:24)
[2020-06-02] MEDS: RT-ALBUTEROL/IPRATROPIUM 3 ML (DUONEB) VIAL INH SCH ×3 (10:24→18:36)
--- NOTE | 2020-06-02 13:08 | Occupational Ther Daily Note ---
OT Current Status-Daily Note Subjective Pt in bed finishing lunch. Pt agreeable to OT tx after he finishes lunch. Mental Status/Objective Patient Orientation: Person, Place, Time, Situation ADL-Treatment Therapy Code Descriptions/Definitions Functional [place] Measure: 0=Not Assessed/NA 4=Minimal Assistance 1=Total Assistance 5=Supervision or Setup 2=Maximal Assistance 6=Modified [place] 3=Moderate Assistance 7=Complete IndependenceSCALE: Activities may be completed with or without assistive devices. 1-Zabbfnmxrg-hltfbcp completes the activity by him/herself with no assistance from a helper. 5-Set-up or Clean-up Assistance-helper sets up or cleans up; patient completes activity. [place] assists only prior to or following the activity. 4-Supervision or Touching Assistance-helper provides verbal cues and/or touching/steadying and/or contact guard assistance as patient completes activity. Assistance may be provided throughout the activity or intermittently. 3-Partial/Moderate Assistance-helper does LESS THAN HALF the effort. [place] lifts, holds or supports trunk or limbs, but provides less than half the effort. 2-Substantial/Maximal Assistance-helper does MORE THAN HALF the effort. [place] lifts or holds trunk or limbs and provides more than half the effort. 4-Czkmiwclg-tchgaf does ALL the effort. Patient does none of the effort to complete the activity. Or, the assistance of 2 or more helpers is required for the patient to complete the activity. If activity was not attempted, code reason: 7-Patient Refused. 9-Not Applicable-not attempted and the patient did not perform the activity before the current illness, exacerbation or injury. 10-Not Attempted due to Environmental Limitations-(lack of equipment, weather restraints, etc.). 88-Not Attempted due to Medical Conditions or Safety Concerns. Eating (QC): 6 (IND, pt able to use utensils in LUE to cut food and bring food to mouth.) Other Treatment Pt laying in bed, finishes lunch. Pt performs SPT to w/c, then propels w/c towards therapy gym. Pt gets aggravated with himself, as he was running w/c into door on R side. OT then assisted pt the rest of the way to the therapy gym. In order to increase BUE strength and activity tolerance, as well as bilateral integration, pt completed x10 mins on arm bike, min resistance. Post tx, pt seated in w/c in therapy gym, all needs met. PT present for continued tx. Education OT Patient Education: Correct positioning, Modified ADL techniques, Progress toward Goal/Update tx plan, Purpose of tx/functional activities Teaching Recipient: Patient Teaching Methods: Discussion Response to Teaching: Verbalize Understanding OT Short Term Goals Short Term Goals Time Frame: Jun 02, 2020 Eatin Oral hygiene: 88 Toileting hygiene: 3 Shower/bathe self: 3 Upper body dressin Lower body dressin Putting on/taking off footwear: 3 OT Hydrology Professor Goals Hydrology Professor Goals Time Frame: Jun 16, 2020 Eating (QC): 6 Oral Hygiene (QC): 88 Toileting Hygiene (QC): 6 Shower/Bathe Self (QC): 4 Upper Body Dressing (QC): 6 Lower Body Dressing (QC): 6 On/Off Footwear (QC): 6 Additional Goals: 1-Demonstrate ADL Tasks, 2-Verbalize Understanding, 3- ImproveStrength/Dutch 1=Demonstrate adherence to instructed precautions during ADL tasks. 2=Patient will verbalize/demonstrate understanding of assistive devices/modifications for ADL. 3=Patient will improve strength/tolerance for activity to enable patient to perform ADL's. OT Education/Plan Problem List/Assessment Assessment: Decreased Activ Tolerance, Decreased UE Strength, Impaired Funct Balance, Impaired I ADL's, Impaired Self-Care Skills, Restricted Funct UE ROM Discharge Recommendations Plan/Recommendations: Continue POC Treatment Plan/Plan of Care Patient would benefit from OT for education, treatment and training to promote independence in ADL's, mobility, safety and/or upper extremity function for ADL's. Plan of Care: ADL Retraining, Functional Mobility, Group Exercise/Act as Ind, UE Funct Exercise/Act Treatment Duration: Jun 16, 2020 Frequency: At least 5 of 7 days/Wk (IRF) Estimated Hrs Per Day: 1.5 hours per day Agreement: Yes Rehab Potential: Fair Time/GCodes Start Time: 13:00 Stop Time: 13:30 Total Time Billed (hr/min): 30 Billed Treatment Time 1, ADL (15'), EX (15') MILAD HENDRICKSON OT Jun 02, 2020 13:08
[2020-06-02] MEDS: BACLOFEN 10 MG (LIORESAL) TAB PO PRN ×2 (14:13→22:44)
--- NOTE | 2020-06-02 14:55 | Physical Therapy Daily Note ---
PT Daily Note-Current Subjective Patient seated upright in gym pre tx. Patient consented to therapy. Appearance Patient was sitting in bed, toileting, with nurse in room and call button within reach post tx. Mental Status Patient Orientation: Person, Confused, Place Transfers SCALE: Activities may be completed with or without assistive devices. 3-Vushanowct-lxyfcau completes the activity by him/herself with no assistance from a helper. 5-Set-up or Clean-up Assistance-helper sets up or cleans up; patient completes activity. [place] assists only prior to or following the activity. 4-Supervision or Touching Assistance-helper provides verbal cues and/or touching/steadying and/or contact guard assistance as patient completes activity. Assistance may be provided throughout the activity or intermittently. 3-Partial/Moderate Assistance-helper does LESS THAN HALF the effort. [place] lif ts, holds or supports trunk or limbs, but provides less than half the effort. 2-Substantial/Maximal Assistance-helper does MORE THAN HALF the effort. [place] lifts or holds trunk or limbs and provides more than half the effort. 8-Hbryrctkb-claeqm does ALL the effort. Patient does none of the effort to complete the activity. Or, the assistance of 2 or more helpers is required for the patient to complete the activity. If activity was not attempted, code reason: 7-Patient Refused. 9-Not Applicable-not attempted and the patient did not perform the activity before the current illness, exacerbation or injury. 10-Not Attempted due to Environmental Limitations-(lack of equipment, weather restraints, etc.). 88-Not Attempted due to Medical Conditions or Safety Concerns. Lying to Sitting/Side of Bed(Q: 4 Sit to Stand (QC): 3 (min) Min A to CGA with sit <-> stand. Patient is self-correcting pre-ascent positioning more consistently. Weight Bearing Full Weight Bearing Full Weight Bearing Gait Training Does the Patient Walk?: Yes Distance: 20', 25', 20' Walk 10 feet (QC): 4 (CGA) Gait Assistive Device: FWW Patient continues to demonstrate L knee buckling with ambulation that requires a recovery seat. Patient is inconsistent with gait pattern, switches back and forth between step-to gait and reciprocal gait. Requires rest breaks between ambulation sessions. At last ambulation, patient reported "he couldn't do it anymore." Wheelchair Training Does the Pt Use a Wheelchair?: Yes Type of Wheelchair: Manual Treatments Gait training, endurance Assessment Current Status: Fair Progress Patient will benefit from continued gait training to improve functional mobility for safe return home. PT Short Term Goals Short Term Goals Time Frame: Jun 02, 2020 Roll Left & Right: 4 (SBA) Sit to lyin (SBA) Lying to sitting on side of be: 4 (SBA) Sit to stand: 4 (CGA) Chair/raq-wa-udwni transfer: 4 (min) Toilet transfer: 4 (min) Car transfer: 4 (min) Walk 10 feet: 4 (min) Walk 50 feet with two turns: 4 (min) 1 step (curb): 4 (CGA) Wheel 50ft w/2 turns: 4 Wheel 150 feet: 4 PT Sign Writer Hand Goals Sign Writer Hand Goals PT Half-Way Goals Time Frame: Jun 16, 2020 Roll Left & Right (QC): 5 Sit to Lying (QC): 5 Lying-Sitting on Side/Bed(QC): 5 Sit to Stand (QC): 5 Chair/Ofb-ab-Ytwwv Xfer(QC): 4 (CGA) Toilet Transfer (QC): 4 (CGA) Car Transfer (QC): 4 (CGA) Does the Patient Walk: Yes Walk 10 feet (QC): 4 (CGA) Walk 50ft with 2 Turns (QC): 4 (CGA) Walk 150 ft (QC): 4 (CGA) Walking 10ft on Uneven Surface: 4 (CGA) 1 Step (curb) (QC): 4 (CGA) 4 Steps (QC): 4 (CGA) 12 Steps (QC): 88 Picking up an Object (QC): 4 (CGA) Does the Pt use WC or Scooter?: Yes Wheel 50 feet with 2 turns (QC: 6 Type: Manual Wheel 150 feet: 6 Type: Manual PT Plan Problem List Problem List: Activity Tolerance, Functional Strength, Safety, Balance, Gait, T ransfer, Bed Mobility, ROM Treatment/Plan Treatment Plan: Continue Plan of Care Treatment Plan: Bed Mobility, Education, Functional Activity Dutch, Functional Strength, Group Therapy, Gait, Safety, Therapeutic Exercise, Transfers Treatment Duration: Jun 16, 2020 Frequency: At least 5 of 7 days/Wk (IRF) Estimated Hrs Per Day: 1.5 hours per day Patient and/or Family Agrees t: Yes Time/GCodes Time In: 1330 Time Out: 1400 Total Billed Treatment Time: 30 Total Billed Treatment 1 visit: GT x2: 30' RADHA SALINAS PT Jun 02, 2020 14:55
[2020-06-02 16:21] VITALS: BP 129/56
[2020-06-02 22:46] VITALS: BP 132/58
[2020-06-03] MEDS: ALPRAZolam 0.25 MG (XANAX) TAB PO PRN (02:18)
[2020-06-03 06:02] VITALS: BP 158/76
[2020-06-03] MEDS: RT-ALBUTEROL/IPRATROPIUM 3 ML (DUONEB) VIAL INH SCH ×3 (07:21→18:43)
[2020-06-03] MEDS: UMECLIDINIUM BROMIDE (INCRUSE ELLIPTA) 7'S IH SCH (07:22)
[2020-06-03 08:00] VITALS: BP 127/62
[2020-06-03] MEDS: ASPIRIN 81 MG CHEW (CHILDREN'S ASA) PO SCH (08:32)
[2020-06-03] MEDS: GABAPENTIN 300 MG (NEURONTIN) CAP PO SCH ×3 (08:32→21:34)
[2020-06-03] MEDS: CLOPIDOGREL 75 MG (PLAVIX) TABLET PO SCH (08:33)
[2020-06-03] MEDS: lisINopril 20 MG (PRINIVIL) TABLET PO SCH (08:33)
[2020-06-03] MEDS: amLODIPine 5 MG (NORVASC) TAB PO SCH (08:33)
--- NOTE | 2020-06-03 08:34 | Cardiology Progress Note ---
Subjective Date Seen by Provider: Jun 03, 2020 Time Seen by Provider: 08:33 Subjective/Events-last exam Sitting up in chair, denies any chest pain or palpitations. Review of Systems General: No Chills, No Night Sweats, No Fatigue, No Malaise, No Appetite, No Other HEENT: No Head Aches, No Visual Changes, No Eye Pain, No Ear Pain, No Dysphasia, No Sinus Congestion, No Post Nasal Drip, No Sore Throat, No Other Pulmonary: No Dyspnea, No Cough, No Pleuritic Chest Pain, No Other Cardiovascular: No: Chest Pain, Palpitations, Orthopnea, Paroxysmal Noc. Dyspnea, Edema, Lt Headedness, Other Objective-Cardiology Exam Last Set of Vital Signs Vital Signs 06/03/20 06/03/20 06:02 07:21 Temp 36.8 Pulse 59 Resp 17 B/P (MAP) 158/76 (103) Pulse Ox 93 O2 Delivery Room Air Capillary Refill : I&O Intake and Output 06/03/20 00:00 Intake Total 1420 ml Output Total 1200 ml Balance 220 ml Intake Oral 1420 ml Output Urine Total 1200 ml # Voids 2 General: Alert, Oriented X3, Cooperative HEENT: Atraumatic, PERRLA Neck: Supple, No JVD, No Thyromegaly Lungs: Clear to Auscultation, Normal Air Movement Heart: Regular Rate, Normal S1, Normal S2 Abdomen: Soft, No Tenderness Extremities: No Clubbing, No Edema Skin: No Rashes, No Significant Lesion Neuro: Normal Speech, Other (right sided hemiparesis) A/P-Cardiology Admission Diagnosis CVA CAD HTN HLP Assessment/Plan Chest pain, shortness of breath, resolved, no further episodes were reported. Continue to monitor Recurrent CVA d/t Carotid artery stenosis, had a stroke in December 2019 resulted in right-sided weakness, had left-sided weakness on this admission. He had history of carotid stenting at [facility] in January 2020 after the first stroke, he is known to have complete occlusion of the left common and internal carotid arteries, stent of the right carotid artery. Most recent CTA head done 05/23/20 showing internal thrombus within the right internal carotid artery stent which is slightly less prominent than on the prior examination. [facility] neurology consulted and recommend continuation of ASA and Plavix. Does not warrant intervention at this time. Coronary artery disease, history of cardiac catheterization in 2013 showing patent stents in the proximal LAD, known to have Promus element 2.75 by 16mm placed in July 2012, the proximal stent is Premier 3 x 16 placed in June 2013, had 50-60 percent mid LAD stenosis, clinically stable, continue to monitor. Maintained on ASA and Plavix. Hypertension, controlled, continue to monitor. Hyperlipidemia, monitor lipids Tobaccoism, educated on smoking cessation H/O marijuana and heavy EtOH use Methamphetamine abuse; (+) this admission H/O hepatitis C followed at the [facility] COPD Chronically abnormal EKG that shows LVH with repolarization abnormalities Patient was seen and evaluated with Ebony, examination performed, management plan was discussed, agree with the current scribed note, I made few changes to the note using Italic font Patient was seen at bedside, laying down comfortably No new complaint Continue to monitor blood pressure and continue with physical therapy EBONY WARREN Jun 03, 2020 8:34 am DEMETRIO ALVAREZ MD Jun 03, 2020 4:44 pm
[2020-06-03] MEDS: ENOXAPARIN 40 MG/0.4 ML (LOVENOX) SYR SC SCH (08:35)
[2020-06-03] MEDS: DOCUSATE SODIUM 100 MG (COLACE) CAP PO SCH ×2 (08:35→21:35)
[2020-06-03] MEDS: SENNA W/DOCUSATE (SENOKOT S) TABLET PO SCH ×2 (08:36→21:35)
[2020-06-03] MEDS: polyethylene glycoL POWDER 17 GM (MIRALAX) PACK PO SCH ×2 (08:36→21:35)
[2020-06-03] MEDS: FLUTICASONE NASAL SPRAY (FLONASE) 16 GM BTL NS SCH ×2 (08:36→21:38)
--- NOTE | 2020-06-03 09:07 | PM&R Progress Note ---
Subjective HPI/CC On Admission Date Seen by Provider: Jun 03, 2020 Time Seen by Provider: 09:15 Subjective/Events-last exam 06/03/20: Pt very inappropriate with his responses Police came to his room because visitors that had just seen him that were involved in a crime and then went missing Right lower extremity is very weak Constantly asking to go outside and I know that is to "shoot up" Methamphetamine 06/02/20: Pt making some progress Curses a lot Impaired sleep but he did have some rest last night Constantly wants to go outside and I know that is to be able to smoke meth Very difficult situation 06/01/20: Pt having no new issues Very complex issues because of meth use and behaviors Working hard but likely will need a assisted Very difficult situation, social-handy 05/31/20: Patient cursing at his phone about his girlfriend Meth use has changed brain function BM treatment ordered Patient still asking if he can go outside if he has a visitor but I fear he would use meth so I am not approving him of going outside or off unit without staff 05/30/20: Patient had episode of CP last night and dyspnea Cardiology evaluated him today CXR ATX no evidence of sepsis or PNA Meth use hx has caused multiple medical issues 05/29/20: Patient remains stable Labile moods are from meth use hx Asking if he could go outside with his friend tomorrow and I stated likely not due to his meth use and could take [place] at that time 05/28/20: Labile behavior h/o meth use has been a factor in this behavior Obsessed about where his girlfriend is Lungs are clear 05/27/20: Pt doing a lot better Slept in today Working with therapy Right-sided weakness is significant Will work through things as they come Hopefully wont leave AMA this time Review of Systems General: Fatigue, Malaise Neurological: Weakness, Incoordination Objective Exam Vital Signs Vital Signs Date Time Temp Pulse Resp B/P (MAP) Pulse Ox O2 Delivery O2 Flow Rate FiO2 06/03/20 20:30 94 Room Air 06/03/20 19:42 36.9 76 20 146/67 (93) Capillary Refill : General Appearance: No Apparent Distress, WD/WN, Chronically ill, Thin HEENT: PERRL/EOMI, Normal ENT Inspection, Pharynx Normal Neck: Full Range of Motion, Normal Inspection, Non Tender, Supple, Carotid Bruit Respiratory: Chest Non Tender, Lungs Clear, Normal Breath Sounds, No Accessory Muscle Use, No Respiratory Distress Cardiovascular: Regular Rate, Rhythm, No Edema, No Gallop, No JVD, No Murmur, Normal Peripheral Pulses Gastrointestinal: Normal Bowel Sounds, No Organomegaly, No Pulsatile Mass, Non Tender, Soft Back: Normal Inspection, No CVA Tenderness, No Vertebral Tenderness Extremity: Normal Capillary Refill, Normal Inspection, Normal Range of Motion, Non Tender, No Calf Tenderness, No Pedal Edema Neurologic/Psychiatric: Alert, Oriented x3, Normal Mood/Affect, Motor Weakness (right sided weakness 3/5 leg and arm) Skin: Normal Color, Warm/Dry Lymphatic: No Adenopathy Results/Procedures Lab Patient resulted labs reviewed. FIM Transfers Therapy Code Descriptions/Definitions Functional [place] Measure: 0=Not Assessed/NA 4=Minimal Assistance 1=Total Assistance 5=Supervision or Setup 2=Maximal Assistance 6=Modified [place] 3=Moderate Assistance 7=Complete IndependenceSCALE: Activities may be completed with or without assistive devices. 7-Qwdelpmhli-iepkbwm completes the activity by him/herself with no assistance from a helper. 5-Set-up or Clean-up Assistance-helper sets up or cleans up; patient completes activity. [place] assists only prior to or following the activity. 4-Supervision or Touching Assistance-helper provides verbal cues and/or touching/steadying and/or contact guard assistance as patient completes activity. Assistance may be provided throughout the activity or intermittently. 3-Partial/Moderate Assistance-helper does LESS THAN HALF the effort. [place] lifts, holds or supports trunk or limbs, but provides less than half the effort. 2-Substantial/Maximal Assistance-helper does MORE THAN HALF the effort. [place] lifts or holds trunk or limbs and provides more than half the effort. 7-Trknjdokv-ckizvy does ALL the effort. Patient does none of the effort to complete the activity. Or, the assistance of 2 or more helpers is required for the patient to complete the activity. If activity was not attempted, code reason: 7-Patient Refused. 9-Not Applicable-not attempted and the patient did not perform the activity before the current illness, exacerbation or injury. 10-Not Attempted due to Environmental Limitations-(lack of equipment, weather restraints, etc.). 88-Not Attempted due to Medical Conditions or Safety Concerns. Roll Left to Right (QC): 4 Sit to Lying (QC): 4 Sit to Stand (QC): 3 (min) Chair/Djo-me-Nhjyt Xfer(QC): 3 Car Transfer (QC): 3 (mod) Gait Training Does the Patient Walk?: Yes Distance: 20', 25', 20' Walk 10 feet (QC): 4 (CGA) Walk 50 ft with 2 Turns(QC): 4 (CGA) Walk 150 ft (QC): 88 Walking 10ft/uneven surface-QC: 88 Gait Persons Needed: 1 Gait Assistive Device: FWW Wheelchair Training Does the Pt Use a Wheelchair?: Yes Wheel 50 ft with 2 turns (QC): 6 Wheel 150 ft (QC): 4 Type of Wheelchair: Manual Stair Training 1 Step (curb) (QC): 88 4 Steps (QC): 88 12 Steps (QC): 88 Balance Picking up an Object (QC): 88 ADL-Treatment Eating (QC): 6 (IND, pt able to use utensils in LUE to cut food and bring food to mouth.) Oral Hygiene (QC): 7 (Pt declined as he does not have any teeth.) Shower/Bathe Self (QC): 4 (CGA in stand at GBs.) Upper Body Dressing (QC): 5 (set up) Lower Body Dressing (QC): 3 (Min A with RLE, pt able to complete pant hike with min A balance, and able to complete LLE.) On/Off Footwear (QC): 3 (Pt able to don/doff LLE gripper sock, assist with doffing/donning R.) Toileting Hygiene (QC): 4 (CGA in stand for pant hike, pt able to manage clothing.) Toilet Transfer (QC): 4 (CGA on/off toilet.) Assessment/Plan Assessment and Plan Assess & Plan/Chief Complaint Assessment: 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 05/03/20 Plan: IRF protocol Monitor closely Supportive care Hope does not leave AMA 05/28/20: Monitor closely Very labile behavior 05/29/20: Monitor closely Meth use has caused labile behavior 05/30/20: CP and dyspnea monitored 05/31/20: Monitor closely Not allowed to leave the unit without staff due to what I suspect as planning to use meth 06/01/20: Monitor closely Continue treatment 06/02/20: Monitor closely Cannot go outside as he is requesting daily due to high risk for using meth 06/03/20: Monitor closely Meth use is causing all med issues and behaviors (1) CVA (cerebral vascular accident) Status: Acute (2) Methamphetamine abuse Status: Acute (3) HLD (hyperlipidemia) Status: Chronic (4) Carotid stenosis Status: Acute (5) HTN (hypertension) Status: Acute (6) Cannabis abuse Status: Acute (7) Hemiparesis of right dominant side Status: Acute (8) Very heavy cigarette smoker (40 or more per day) Status: Acute (9) Illicit drug use Status: Acute (10) Hypertension (11) COPD (chronic obstructive pulmonary disease) PRUDENCE BECK DO Jun 03, 2020 09:07
--- NOTE | 2020-06-03 09:50 | Physical Therapy Daily Note ---
PT Daily Note-Current Subjective Pt sitting up in bed upon arrival. Pt reports not sleeping well last night due to situation with daughter & grandchild. Pt agrees to PT but reports fatigue at beginning of tx. Pain Numeric Pain Scale: 5-Moderate Pain Location: Right Location Body Site: Foot Pain Description: Cramping Mental Status Patient Orientation: Person, Place, Situation Transfers SCALE: Activities may be completed with or without assistive devices. 9-Ilzhyookck-emehxft completes the activity by him/herself with no assistance from a helper. 5-Set-up or Clean-up Assistance-helper sets up or cleans up; patient completes activity. [place] assists only prior to or following the activity. 4-Supervision or Touching Assistance-helper provides verbal cues and/or touching/steadying and/or contact guard assistance as patient completes activity. Assistance may be provided throughout the activity or intermittently. 3-Partial/Moderate Assistance-helper does LESS THAN HALF the effort. [place] lifts, holds or supports trunk or limbs, but provides less than half the effort. 2-Substantial/Maximal Assistance-helper does MORE THAN HALF the effort. [place] lifts or holds trunk or limbs and provides more than half the effort. 9-Iyyyfnrwc-xnasol does ALL the effort. Patient does none of the effort to complete the activity. Or, the assistance of 2 or more helpers is required for the patient to complete the activity. If activity was not attempted, code reason: 7-Patient Refused. 9-Not Applicable-not attempted and the patient did not perform the activity before the current illness, exacerbation or injury. 10-Not Attempted due to Environmental Limitations-(lack of equipment, weather restraints, etc.). 88-Not Attempted due to Medical Conditions or Safety Concerns. Weight Bearing Full Weight Bearing Full Weight Bearing Gait Training Does the Patient Walk?: Yes Distance: 10' Walk 10 feet (QC): 3 Gait Assistive Device: FWW Pt knees buckled after amb 10' and therapist assisted pt to WC. Pt amb gingerly on RLE and pt shuffles to advance R foot. PT had to assist pt w/ placement of RUE on FWW. Wheelchair Training Does the Pt Use a Wheelchair?: Yes Wheel 50 ft with 2 turns (QC): 5 Wheel 150 ft (QC): 4 Type of Wheelchair: Manual Exercises Seated Therapy Exercises: Ankle pumps, Sit to stand, Long arc quads Seated Reps: 5 Standing: Weight shifts Standing Reps: 8 Treatments Pt in bed upon arrival and sit to stand TF. Amb 10' therapist helped pt into WC after knees buckled. Pt wheeled himself the rest of way to therapy gym to // bars. Performed standing exs and performed seated exs during rest breaks. Pt wheeled himself back to room after Rx. Assessment Current Status: Good Progress Pt very drowsy during Rx and frequently needed woken up to continue participation. Pt was struggling to concentrate so strength and endurance were diminished. When wheeling self back to room pt fell asleep and needed woken up to make it the rest of the way. Pt left in WC w/ call light in reach and all needs met and OT on their way. PT Short Term Goals Short Term Goals Time Frame: Jun 02, 2020 Roll Left & Right: 4 (SBA) Sit to lyin (SBA) Lying to sitting on side of be: 4 (SBA) Sit to stand: 4 (CGA) Chair/hdc-ga-xdnaf transfer: 4 (min) Toilet transfer: 4 (min) Car transfer: 4 (min) Walk 10 feet: 4 (min) Walk 50 feet with two turns: 4 (min) 1 step (curb): 4 (CGA) Wheel 50ft w/2 turns: 4 Wheel 150 feet: 4 PT Nicker Goals Residential Goals PT Residential Goals Time Frame: Jun 16, 2020 Roll Left & Right (QC): 5 Sit to Lying (QC): 5 Lying-Sitting on Side/Bed(QC): 5 Sit to Stand (QC): 5 Chair/Dtm-id-Ooduy Xfer(QC): 4 (CGA) Toilet Transfer (QC): 4 (CGA) Car Transfer (QC): 4 (CGA) Does the Patient Walk: Yes Walk 10 feet (QC): 4 (CGA) Walk 50ft with 2 Turns (QC): 4 (CGA) Walk 150 ft (QC): 4 (CGA) Walking 10ft on Uneven Surface: 4 (CGA) 1 Step (curb) (QC): 4 (CGA) 4 Steps (QC): 4 (CGA) 12 Steps (QC): 88 Picking up an Object (QC): 4 (CGA) Does the Pt use WC or Scooter?: Yes Wheel 50 feet with 2 turns (QC: 6 Type: Manual Wheel 150 feet: 6 Type: Manual PT Plan Problem List Problem List: Activity Tolerance, Functional Strength, Safety, Balance, Gait Treatment/Plan Treatment Plan: Continue Plan of Care Treatment Plan: Bed Mobility, Education, Functional Activity [place], Functional Strength, Group Therapy, Gait, Safety, Therapeutic Exercise, Transfers Treatment Duration: Jun 16, 2020 Frequency: At least 5 of 7 days/Wk (IRF) Estimated Hrs Per Day: 1.5 hours per day Patient and/or Family Agrees t: Yes Safety Risks/Education Patient Education: Gait Training, Correct Positioning, W/C Management, Safety Issues Teaching Recipient: Patient Teaching Methods: Demonstration, Discussion Response to Teaching: Verbalize Understanding, Return Demonstration Time/GCodes Time In: 900 Time Out: 1000 Total Billed Treatment Time: 60 Total Billed Treatment 1, GT (10m) , WC (15m), EX x 2 (35m) ASHANTI ROY COUNTER POCKET TRIMMER Jun 03, 2020 09:50
--- NOTE | 2020-06-03 11:07 | Occupational Ther Daily Note ---
OT Current Status-Daily Note Subjective Pt up in w/c after PT Tx, states he did not sleep at all last night. Mental Status/Objective Patient Orientation: Person, Place, Time, Situation ADL-Treatment Therapy Code Descriptions/Definitions Functional [place] Measure: 0=Not Assessed/NA 4=Minimal Assistance 1=Total Assistance 5=Supervision or Setup 2=Maximal Assistance 6=Modified [place] 3=Moderate Assistance 7=Complete IndependenceSCALE: Activities may be completed with or without assistive devices. 6-Wjmtoquiky-ylzdxkr completes the activity by him/herself with no assistance from a helper. 5-Set-up or Clean-up Assistance-helper sets up or cleans up; patient completes activity. [place] assists only prior to or following the activity. 4-Supervision or Touching Assistance-helper provides verbal cues and/or touching/steadying and/or contact guard assistance as patient completes activity. Assistance may be provided throughout the activity or intermittently. 3-Partial/Moderate Assistance-helper does LESS THAN HALF the effort. [place] lifts, holds or supports trunk or limbs, but provides less than half the effort. 2-Substantial/Maximal Assistance-helper does MORE THAN HALF the effort. [place] lifts or holds trunk or limbs and provides more than half the effort. 7-Ykpgscgzq-fgiixi does ALL the effort. Patient does none of the effort to complete the activity. Or, the assistance of 2 or more helpers is required for the patient to complete the activity. If activity was not attempted, code reason: 7-Patient Refused. 9-Not Applicable-not attempted and the patient did not perform the activity before the current illness, exacerbation or injury. 10-Not Attempted due to Environmental Limitations-(lack of equipment, weather restraints, etc.). 88-Not Attempted due to Medical Conditions or Safety Concerns. Shower/Bathe Self (QC): 4 (SBA, pt washed/dried all parts seated on SC) Upper Body Dressing (QC): 4 (SBA, pt required min verbal cues to sequence how to doff/don pack puller shirt.) Lower Body Dressing (QC): 3 (Pt required min A standing balance at GBs/FWW for pant hike. Pt able to doff pants using AE, assist with donning RLE.) On/Off Footwear: 3 (Pt able to doff bilateral gripper socks, able to don using 1 handed technique. Assist with holding RLE in figure 4 position) Other Treatment Pt seated in w/c, transferred from w/c to [place] to doff clothes and complete shower. Pt washed/dried all parts seated on SC, then transferred to w/c to don clothes. QC scores outlined above. Pt requests to return to bed due to not being able to sleep last night, SPT from w/c to bed, CGA. Post tx, pt laying in bed, call light in reach and all needs met. Education OT Patient Education: Correct positioning, Modified ADL techniques, Progress toward Goal/Update tx plan, Purpose of tx/functional activities Teaching Recipient: Patient Teaching Methods: Discussion Response to Teaching: Verbalize Understanding OT Short Term Goals Short Term Goals Time Frame: Jun 02, 2020 Eatin Oral hygiene: 88 Toileting hygiene: 3 Shower/bathe self: 3 Upper body dressin Lower body dressin Putting on/taking off footwear: 3 OT Correction Goals Director Dermatology Goals Time Frame: Jun 16, 2020 Eating (QC): 6 Oral Hygiene (QC): 88 Toileting Hygiene (QC): 6 Shower/Bathe Self (QC): 4 Upper Body Dressing (QC): 6 Lower Body Dressing (QC): 6 On/Off Footwear (QC): 6 Additional Goals: 1-Demonstrate ADL Tasks, 2-Verbalize Understanding, 3- ImproveStrength/Dutch 1=Demonstrate adherence to instructed precautions during ADL tasks. 2=Patient will verbalize/demonstrate understanding of assistive devices/modifications for ADL. 3=Patient will improve strength/tolerance for activity to enable patient to perform ADL's. OT Education/Plan Problem List/Assessment Assessment: Decreased Activ Tolerance, Decreased Safety Aware, Decreased UE Strength, Impaired Funct Balance, Impaired I ADL's, Impaired Self-Care Skills, Restricted Funct UE ROM Discharge Recommendations Plan/Recommendations: Continue POC Treatment Plan/Plan of Care Patient would benefit from OT for education, treatment and training to promote independence in ADL's, mobility, safety and/or upper extremity function for ADL's. Plan of Care: ADL Retraining, Functional Mobility, Group Exercise/Act as Ind, UE Funct Exercise/Act Treatment Duration: Jun 16, 2020 Frequency: At least 5 of 7 days/Wk (IRF) Estimated Hrs Per Day: 1.5 hours per day Agreement: Yes Rehab Potential: Fair Time/GCodes Start Time: 10:00 Stop Time: 11:00 Total Time Billed (hr/min): 60 Billed Treatment Time 1, ADL 4 MILAD HENDRICKSON OT Jun 03, 2020 11:07
--- NOTE | 2020-06-03 14:01 | Physical Therapy Daily Note ---
PT Daily Note-Current Subjective Pt states he's very tired but agrees to do some exs in WC and in bed. Pt reports pain in entire RLE while performing supine HS. Pain Comment: Reports pain in leg but did not rate. Mental Status Patient Orientation: Person, Place, Time, Situation Transfers SCALE: Activities may be completed with or without assistive devices. 3-Rzhfhiwkmq-kgenzzj completes the activity by him/herself with no assistance from a helper. 5-Set-up or Clean-up Assistance-helper sets up or cleans up; patient completes activity. [place] assists only prior to or following the activity. 4-Supervision or Touching Assistance-helper provides verbal cues and/or touching/steadying and/or contact guard assistance as patient completes activity. Assistance may be provided throughout the activity or intermittently. 3-Partial/Moderate Assistance-helper does LESS THAN HALF the effort. [place] lifts, holds or supports trunk or limbs, but provides less than half the effort. 2-Substantial/Maximal Assistance-helper does MORE THAN HALF the effort. [place] lifts or holds trunk or limbs and provides more than half the effort. 3-Tchkgobzq-ovafix does ALL the effort. Patient does none of the effort to complete the activity. Or, the assistance of 2 or more helpers is required for the patient to complete the activity. If activity was not attempted, code reason: 7-Patient Refused. 9-Not Applicable-not attempted and the patient did not perform the activity before the current illness, exacerbation or injury. 10-Not Attempted due to Environmental Limitations-(lack of equipment, weather restraints, etc.). 88-Not Attempted due to Medical Conditions or Safety Concerns. Sit to Lying (QC): 5 Sit to Stand (QC): 3 Weight Bearing Full Weight Bearing Full Weight Bearing Exercises Supine Ex: Heel Slides, Hip abd/add Supine Reps: 12 Seated Therapy Exercises: Ankle pumps, Sit to stand, Long arc quads Seated Reps: 12 Treatments Pt is eating lunch upon arrival. Performed seated exs while pt is eating lunch. Pt wheels himself to side of bed then performs sit<->stand TF. TF to bed and performs supine exs. Pt is asleep when therapy departs. Assessment Current Status: Good Progress Pt is very drowsy and falling asleep while performing seated exs and eating lunch. Had to be continually woken up for participation in Rx. Pt reported his whole RLE hurt while performing HS so discontinued this ex. Pt was able to lay down in bed w/ SBA and using L leg to help pull RLE into bed. Pt able to perform hip abd/add on RLE w/ gravity reduced. Informed pt about pushing off arms of chair and not to pull on FWW. Pt in bed w/ call light and all needs met. PT Short Term Goals Short Term Goals Time Frame: Jun 02, 2020 Roll Left & Right: 4 (SBA) Sit to lyin (SBA) Lying to sitting on side of be: 4 (SBA) Sit to stand: 4 (CGA) Chair/mgl-ch-yynlm transfer: 4 (min) Toilet transfer: 4 (min) Car transfer: 4 (min) Walk 10 feet: 4 (min) Walk 50 feet with two turns: 4 (min) 1 step (curb): 4 (CGA) Wheel 50ft w/2 turns: 4 Wheel 150 feet: 4 PT Jail Goals Jail Goals PT Jail Goals Time Frame: Jun 16, 2020 Roll Left & Right (QC): 5 Sit to Lying (QC): 5 Lying-Sitting on Side/Bed(QC): 5 Sit to Stand (QC): 5 Chair/Bfz-bs-Ygxfz Xfer(QC): 4 (CGA) Toilet Transfer (QC): 4 (CGA) Car Transfer (QC): 4 (CGA) Does the Patient Walk: Yes Walk 10 feet (QC): 4 (CGA) Walk 50ft with 2 Turns (QC): 4 (CGA) Walk 150 ft (QC): 4 (CGA) Walking 10ft on Uneven Surface: 4 (CGA) 1 Step (curb) (QC): 4 (CGA) 4 Steps (QC): 4 (CGA) 12 Steps (QC): 88 Picking up an Object (QC): 4 (CGA) Does the Pt use WC or Scooter?: Yes Wheel 50 feet with 2 turns (QC: 6 Type: Manual Wheel 150 feet: 6 Type: Manual PT Plan Problem List Problem List: Activity Tolerance, Functional Strength Treatment/Plan Treatment Plan: Continue Plan of Care Treatment Plan: Bed Mobility, Education, Functional Activity Dutch, Functional Strength, Group Therapy, Gait, Safety, Therapeutic Exercise, Transfers Treatment Duration: Jun 16, 2020 Frequency: At least 5 of 7 days/Wk (IRF) Estimated Hrs Per Day: 1.5 hours per day Patient and/or Family Agrees t: Yes Safety Risks/Education Patient Education: Correct Positioning, Safety Issues Teaching Recipient: Patient Teaching Methods: Demonstration, Discussion Response to Teaching: Verbalize Understanding, Return Demonstration Time/GCodes Time In: 1330 Time Out: 1400 Total Billed Treatment Time: 30 Total Billed Treatment 1, Ex (20m), FA (10m) ASHANTI ROY PTA Jun 03, 2020 14:01
--- NOTE | 2020-06-03 15:07 | Occupational Ther Daily Note ---
OT Current Status-Daily Note Subjective Pt laying in bed, sleeping. Nursing present to give pt meds. Pt had difficulty waking up due to not sleeping well last night, but once awake agreeable to therapy. ADL-Treatment Therapy Code Descriptions/Definitions Functional [place] Measure: 0=Not Assessed/NA 4=Minimal Assistance 1=Total Assistance 5=Supervision or Setup 2=Maximal Assistance 6=Modified [place] 3=Moderate Assistance 7=Complete IndependenceSCALE: Activities may be completed with or without assistive devices. 7-Iaebuzcyfa-uybzlox completes the activity by him/herself with no assistance from a helper. 5-Set-up or Clean-up Assistance-helper sets up or cleans up; patient completes activity. [place] assists only prior to or following the activity. 4-Supervision or Touching Assistance-helper provides verbal cues and/or touching/steadying and/or contact guard assistance as patient completes activity. Assistance may be provided throughout the activity or intermittently. 3-Partial/Moderate Assistance-helper does LESS THAN HALF the effort. [place] lifts, holds or supports trunk or limbs, but provides less than half the effort. 2-Substantial/Maximal Assistance-helper does MORE THAN HALF the effort. [place] lifts or holds trunk or limbs and provides more than half the effort. 0-Ycyvzlpza-fhyxja does ALL the effort. Patient does none of the effort to complete the activity. Or, the assistance of 2 or more helpers is required for the patient to complete the activity. If activity was not attempted, code reason: 7-Patient Refused. 9-Not Applicable-not attempted and the patient did not perform the activity before the current illness, exacerbation or injury. 10-Not Attempted due to Environmental Limitations-(lack of equipment, weather restraints, etc.). 88-Not Attempted due to Medical Conditions or Safety Concerns. Eating (QC): 5 (set up with containers) Toileting Hygiene (QC): 3 (Assist with urinal placement.) Other Treatment Pt laying in bed, had difficulty waking up due to report of not sleeping well the night before. Once pt was awake, pt agreeable to OT tx. Pt sat EOB to use urinal, assist with placing urinal, and CGA for sitting balance. Pt completed SPT to w/c, min A. Pt taken to therapy gym. In order to increase BUE strength, activity tolerance and bilateral integration, pt instructed to complete arm bike, min resistance. Pt had difficulty staying awake, requiring multiple cues to continue with task. Pt had difficulty keeping RUE on arm bike, letting it drop to table ~5 times, assist to place back on arm bike. Pt able to complete x2 mins before OT terminated task due to difficulty staying awake and inattention to task. Pt propelled w/c back to his room. Pt had not had lunch yet due to being asleep. OT set up pt's tray, assist to open dressing packet. Pt using spoon with salad, pushing food off of plate at times and cursing. Pt asks this therapist to feed him, OT informed pt that he is able to complete task and shoul d do it himself. Post tx, pt seated up in w/c, call light in reach and all needs met. Education OT Patient Education: Correct positioning, Exercise program, Modified ADL techniques, Progress toward Goal/Update tx plan, Purpose of tx/functional activities, Rehab process, Safety issues Teaching Recipient: Patient Teaching Methods: Discussion Response to Teaching: Verbalize Understanding OT Short Term Goals Short Term Goals Time Frame: Jun 02, 2020 Eatin Oral hygiene: 88 Toileting hygiene: 3 Shower/bathe self: 3 Upper body dressin Lower body dressin Putting on/taking off footwear: 3 OT [facility] Goals Agency Trainer Goals Time Frame: Jun 16, 2020 Eating (QC): 6 Oral Hygiene (QC): 88 Toileting Hygiene (QC): 6 Shower/Bathe Self (QC): 4 Upper Body Dressing (QC): 6 Lower Body Dressing (QC): 6 On/Off Footwear (QC): 6 Additional Goals: 1-Demonstrate ADL Tasks, 2-Verbalize Understanding, 3- ImproveStrength/Dutch 1=Demonstrate adherence to instructed precautions during ADL tasks. 2=Patient will verbalize/demonstrate understanding of assistive devices/modifications for ADL. 3=Patient will improve strength/tolerance for activity to enable patient to perform ADL's. OT Education/Plan Problem List/Assessment Assessment: Decreased Activ Tolerance, Decreased UE Strength, Impaired Funct Balance, Impaired I ADL's, Impaired Self-Care Skills, Restricted Funct UE ROM Discharge Recommendations Plan/Recommendations: Continue POC Treatment Plan/Plan of Care Patient would benefit from OT for education, treatment and training to promote independence in ADL's, mobility, safety and/or upper extremity function for ADL's. Plan of Care: ADL Retraining, Functional Mobility, Group Exercise/Act as Ind, UE Funct Exercise/Act Treatment Duration: Jun 16, 2020 Frequency: At least 5 of 7 days/Wk (IRF) Estimated Hrs Per Day: 1.5 hours per day Agreement: Yes Rehab Potential: Fair Time/GCodes Start Time: 12:50 Stop Time: 13:20 Total Time Billed (hr/min): 30 Billed Treatment Time 1, ADL (20'), FA (10') MILAD HENDRICKSON OT Jun 03, 2020 15:07
[2020-06-03 19:42] VITALS: BP 146/67
[2020-06-03] MEDS: MELATONIN 3 MG TABLET PO PRN (21:34)
[2020-06-04 08:00] VITALS: BP 140/76
[2020-06-04] MEDS: amLODIPine 5 MG (NORVASC) TAB PO SCH (08:34)
[2020-06-04] MEDS: lisINopril 20 MG (PRINIVIL) TABLET PO SCH (08:34)
[2020-06-04] MEDS: ASPIRIN 81 MG CHEW (CHILDREN'S ASA) PO SCH (08:34)
[2020-06-04] MEDS: SENNA W/DOCUSATE (SENOKOT S) TABLET PO SCH ×2 (08:34→21:12)
[2020-06-04] MEDS: polyethylene glycoL POWDER 17 GM (MIRALAX) PACK PO SCH ×2 (08:34→21:14)
[2020-06-04] MEDS: DOCUSATE SODIUM 100 MG (COLACE) CAP PO SCH ×2 (08:34→21:12)
[2020-06-04] MEDS: FLUTICASONE NASAL SPRAY (FLONASE) 16 GM BTL NS SCH ×2 (08:34→21:12)
[2020-06-04] MEDS: CLOPIDOGREL 75 MG (PLAVIX) TABLET PO SCH (08:34)
[2020-06-04] MEDS: GABAPENTIN 300 MG (NEURONTIN) CAP PO SCH ×3 (08:34→21:12)
[2020-06-04] MEDS: ENOXAPARIN 40 MG/0.4 ML (LOVENOX) SYR SC SCH (08:34)
--- NOTE | 2020-06-04 08:36 | Cardiology Progress Note ---
Subjective Date Seen by Provider: Jun 04, 2020 Time Seen by Provider: 08:35 Subjective/Events-last exam Patient in bed, right sided weakness improving. Denies any chest pain Review of Systems General: No Chills, No Night Sweats, No Fatigue, No Malaise, No Appetite, No Other HEENT: No Head Aches, No Visual Changes, No Eye Pain, No Ear Pain, No Dysphasia, No Sinus Congestion, No Post Nasal Drip, No Sore Throat, No Other Pulmonary: No Dyspnea, No Cough, No Pleuritic Chest Pain, No Other Cardiovascular: No: Chest Pain, Palpitations, Orthopnea, Paroxysmal Noc. Dyspnea, Edema, Lt Headedness, Other Objective-Cardiology Exam Last Set of Vital Signs Vital Signs 06/03/20 06/03/20 19:42 20:30 Temp 36.9 Pulse 76 Resp 20 B/P (MAP) 146/67 (93) Pulse Ox 94 O2 Delivery Room Air Capillary Refill : I&O Intake and Output 06/04/20 00:00 Intake Total 2080 ml Output Total 2655 ml Balance -575 ml Intake Oral 2080 ml Output Urine Total 2655 ml General: Alert, Oriented X3, Cooperative HEENT: Atraumatic, PERRLA Neck: Supple, No JVD, No Thyromegaly Lungs: Clear to Auscultation, Normal Air Movement Heart: Regular Rate, Normal S1, Normal S2 Abdomen: Soft, No Tenderness Extremities: No Clubbing, No Edema Skin: No Rashes, No Significant Lesion Neuro: Normal Speech, Other (right sided hemiparesis) A/P-Cardiology Admission Diagnosis CVA CAD HTN HLP Assessment/Plan Chest pain, shortness of breath, resolved, no further episodes were reported. Continue to monitor Recurrent CVA d/t Carotid artery stenosis, had a stroke in December 2019 resulted in right-sided weakness, had left-sided weakness on this admission. He had history of carotid stenting at [facility] in January 2020 after the first stroke, he is known to have complete occlusion of the left common and internal carotid arteries, stent of the right carotid artery. Most recent CTA head done 05/23/20 showing internal thrombus within the right internal carotid artery stent which is slightly less prominent than on the prior examination. [facility] neurology consulted and recommend continuation of ASA and Plavix. Does not warrant intervention at this time. Coronary artery disease, history of cardiac catheterization in 2013 showing patent stents in the proximal LAD, known to have Promus element 2.75 by 16mm placed in July 2012, the proximal stent is Premier 3 x 16 placed in June 2013, had 50-60 percent mid LAD stenosis, clinically stable, continue to monitor. Maintained on ASA and Plavix. Hypertension, controlled, continue to monitor. Hyperlipidemia, monitor lipids Tobaccoism, educated on smoking cessation H/O marijuana and heavy EtOH use Methamphetamine abuse; (+) this admission H/O hepatitis C followed at the [facility] COPD Chronically abnormal EKG that shows LVH with repolarization abnormalities Patient was seen and evaluated with Ebony, examination performed, management plan was discussed, agree with the current scribed note, I made few changes to the note using Italic font Patient was seen at bedside, sitting comfortably, significant improvement in muscle strength on the right. No chest pain Continue on current medication and continue to monitor, no changes are recommended EBONY WARREN Jun 04, 2020 08:36 DEMETRIO ALVAREZ MD Jun 04, 2020 09:04
--- NOTE | 2020-06-04 09:42 | Physical Therapy Daily Note ---
PT Daily Note-Current Subjective Patient was in bed asleep pre tx. Agreed to therapy. Patient reported no pain pre tx. Appearance Patient left in therapy gym post tx, with OT. All needs at present time met. Mental Status Patient Orientation: Person, Place, Situation Transfers SCALE: Activities may be completed with or without assistive devices. 2-Qpgvcvcksy-evztjgp completes the activity by him/herself with no assistance from a helper. 5-Set-up or Clean-up Assistance-helper sets up or cleans up; patient completes activity. [place] assists only prior to or following the activity. 4-Supervision or Touching Assistance-helper provides verbal cues and/or touching/steadying and/or contact guard assistance as patient completes activity. Assistance may be provided throughout the activity or intermittently. 3-Partial/Moderate Assistance-helper does LESS THAN HALF the effort. [place] lif ts, holds or supports trunk or limbs, but provides less than half the effort. 2-Substantial/Maximal Assistance-helper does MORE THAN HALF the effort. [place] lifts or holds trunk or limbs and provides more than half the effort. 8-Pxegwvsog-ufodrp does ALL the effort. Patient does none of the effort to complete the activity. Or, the assistance of 2 or more helpers is required for the patient to complete the activity. If activity was not attempted, code reason: 7-Patient Refused. 9-Not Applicable-not attempted and the patient did not perform the activity before the current illness, exacerbation or injury. 10-Not Attempted due to Environmental Limitations-(lack of equipment, weather restraints, etc.). 88-Not Attempted due to Medical Conditions or Safety Concerns. Roll Left & Right (QC): 6 Lying to Sitting/Side of Bed(Q: 6 Sit to Stand (QC): 3 Chair/Bxm-qh-Dvkxm Xfer(QC): 4 Patient continues to require min A to CGA with sit <-> stand transfers interchangeably. Also occassionally requires multiple attempts to complete transfer. Weight Bearing Full Weight Bearing Full Weight Bearing Gait Training Does the Patient Walk?: Yes Distance: 80' x2 Walk 10 feet (QC): 4 Walk 50 ft with 2 Turns(QC): 4 Gait Assistive Device: FWW Patient is CGA with gait, but continues to require immediate rest breaks. Patient verbalized needing to sit down before letting knees buckle during today's session. Patient also demonstrated reciprocal gait pattern with less "limping" during last 20' of ambulation. Exercises NuStep Minutes: 15 NuStep Workload: 4 Treatments Co-treated with OT secondary to patient UE and LE impairments, by working on static stability with UE reaching outside of [place]. Patient performed 5 minutes of standing balloon ball batting while OT focused on positioning of balloon so patient had to perform reaching, coordination. PT focused on maintaining static balance with anticipatory movements. Assessment Current Status: Fair Progress consistently performed nustep exercise with less rest breaks, improved gait pattern with more reciprocal steps PT Short Term Goals Short Term Goals Time Frame: Jun 02, 2020 Roll Left & Right: 4 (SBA) Sit to lyin (SBA) Lying to sitting on side of be: 4 (SBA) Sit to stand: 4 (CGA) Chair/xdo-ch-lrpjm transfer: 4 (min) Toilet transfer: 4 (min) Car transfer: 4 (min) Walk 10 feet: 4 (min) Walk 50 feet with two turns: 4 (min) 1 step (curb): 4 (CGA) Wheel 50ft w/2 turns: 4 Wheel 150 feet: 4 PT Chcf Goals Chcf Goals PT Paint Specialist Goals Time Frame: Jun 16, 2020 Roll Left & Right (QC): 5 Sit to Lying (QC): 5 Lying-Sitting on Side/Bed(QC): 5 Sit to Stand (QC): 5 Chair/Wdx-yc-Uhbzx Xfer(QC): 4 (CGA) Toilet Transfer (QC): 4 (CGA) Car Transfer (QC): 4 (CGA) Does the Patient Walk: Yes Walk 10 feet (QC): 4 (CGA) Walk 50ft with 2 Turns (QC): 4 (CGA) Walk 150 ft (QC): 4 (CGA) Walking 10ft on Uneven Surface: 4 (CGA) 1 Step (curb) (QC): 4 (CGA) 4 Steps (QC): 4 (CGA) 12 Steps (QC): 88 Picking up an Object (QC): 4 (CGA) Does the Pt use WC or Scooter?: Yes Wheel 50 feet with 2 turns (QC: 6 Type: Manual Wheel 150 feet: 6 Type: Manual PT Plan Problem List Problem List: Activity Tolerance, Functional Strength, Safety, Balance, Gait, Transfer, Bed Mobility, ROM Treatment/Plan Treatment Plan: Continue Plan of Care Treatment Plan: Bed Mobility, Education, Functional Activity Dutch, Functional Strength, Group Therapy, Gait, Safety, Therapeutic Exercise, Transfers Treatment Duration: Jun 16, 2020 Frequency: At least 5 of 7 days/Wk (IRF) Estimated Hrs Per Day: 1.5 hours per day Patient and/or Family Agrees t: Yes Safety Risks/Education Patient Education: Gait Training, Transfer Techniques, Correct Positioning, Safety Issues Teaching Recipient: Patient Teaching Methods: Demonstration, Discussion Response to Teaching: Verbalize Understanding, Return Demonstration Time/GCodes Time In: 09 Time Out: 999 Total Billed Treatment Time: 60 Total Billed Treatment 1 visit: EX x2: 30' GT: 15' FA: 15' Co-treated with OT from [id number] IAN PETTY PT Jun 04, 2020 09:42
--- NOTE | 2020-06-04 10:44 | Occupational Ther Daily Note ---
OT Current Status-Daily Note Subjective Pt in gym with PT, agreeable to cotreat, then OT tx. ADL-Treatment Therapy Code Descriptions/Definitions Functional [place] Measure: 0=Not Assessed/NA 4=Minimal Assistance 1=Total Assistance 5=Supervision or Setup 2=Maximal Assistance 6=Modified [place] 3=Moderate Assistance 7=Complete IndependenceSCALE: Activities may be completed with or without assistive devices. 1-Oylilexzuf-lnermgl completes the activity by him/herself with no assistance from a helper. 5-Set-up or Clean-up Assistance-helper sets up or cleans up; patient completes activity. [place] assists only prior to or following the activity. 4-Supervision or Touching Assistance-helper provides verbal cues and/or touching/steadying and/or contact guard assistance as patient completes activity. Assistance may be provided throughout the activity or intermittently. 3-Partial/Moderate Assistance-helper does LESS THAN HALF the effort. [place] lifts, holds or supports trunk or limbs, but provides less than half the effort. 2-Substantial/Maximal Assistance-helper does MORE THAN HALF the effort. [place] lifts or holds trunk or limbs and provides more than half the effort. 4-Utkyvxwii-ufckxt does ALL the effort. Patient does none of the effort to complete the activity. Or, the assistance of 2 or more helpers is required for the patient to complete the activity. If activity was not attempted, code reason: 7-Patient Refused. 9-Not Applicable-not attempted and the patient did not perform the activity before the current illness, exacerbation or injury. 10-Not Attempted due to Environmental Limitations-(lack of equipment, weather restraints, etc.). 88-Not Attempted due to Medical Conditions or Safety Concerns. Other Treatment [id number] OT/PT cotreat due to skill of 2 clinicians required which a vocational rehabilitation teacher could not perform in order to coordinate UE/LEs, decrease fall risk, and due to pt's limitations in mobility/transfers, standing balance, activity tolerance and strength. OT focused on UE placement, cues for sequencing and safety, and PT focused on LE placement, gross overall movements, and mobility/transfers. Pt stood at parallel bars completing balloon batting task, pt encouraged to use BUEs as able, but noted decreased ROM at shoulder and slower movements of RUE. Pt often missed the balloon on R side. Pt took a seated rest break. [id number] OT tx. Pt reports lightheadedness, BP 94/55 then 85/49. Pt transferred back to w/c and taken to room, transferring back to bed supine with legs elevated. BP 121/59. Pt reports feeling slightly better. OT tx continued at bed level. Pt attempted ring arc, but unable to lift shoulder enough to grab rings. OT then placed rings slightly above bed, pt able to reach forward and grab x2 rings. Pt got agitated with task, as he had difficulty flexing shoulder to reach. He blamed this therapist for putting it out of his reach. OT educated pt how she wants this task to be slightly challenging, but where he is able to complete task. OT performed PROM R shoulder flexion and abduction. Pt provided with HEP for hemiplegic self ROM for shoulder flexion, abduction/adduction. Also educated pt on performing AROM for elbow flexion/extension, wrist flexion/extension, ulnar/radial deviation, and finger flexion/extension. Pt demo'd and verbalized understanding. Post tx, pt laying in bed, call light in reach and all neesd met. PM Tx [id number]: Pt laying in bed, states foggy vision and lightheadedness. BP 98/53 in RUE, 94/53 LUE. Nurse notified. OT lowed HOB, after a few minutes pt's BP 105/55. Pt completed fine motor task using BUE with minimal resistance theraputty, removing beads. Post tx, pt laying in bed, call light in reach and all needs met. Education OT Patient Education: Correct positioning, Modified ADL techniques, Progress toward Goal/Update tx plan, Purpose of tx/functional activities Teaching Recipient: Patient Teaching Methods: Discussion Response to Teaching: Verbalize Understanding OT Short Term Goals Short Term Goals Time Frame: Jun 02, 2020 Eatin Oral hygiene: 88 Toileting hygiene: 3 Shower/bathe self: 3 Upper body dressin Lower body dressin Putting on/taking off footwear: 3 OT Record Tabulating Clerk Goals Jail Goals Time Frame: Jun 16, 2020 Eating (QC): 6 Oral Hygiene (QC): 88 Toileting Hygiene (QC): 6 Shower/Bathe Self (QC): 4 Upper Body Dressing (QC): 6 Lower Body Dressing (QC): 6 On/Off Footwear (QC): 6 Additional Goals: 1-Demonstrate ADL Tasks, 2-Verbalize Understanding, 3- ImproveStrength/Dutch 1=Demonstrate adherence to instructed precautions during ADL tasks. 2=Patient will verbalize/demonstrate understanding of assistive devices/modifications for ADL. 3=Patient will improve strength/tolerance for activity to enable patient to perform ADL's. OT Education/Plan Problem List/Assessment Assessment: Decreased Activ Tolerance, Decreased UE Strength, Impaired Funct Balance, Impaired I ADL's, Impaired Self-Care Skills, Restricted Funct UE ROM Discharge Recommendations Plan/Recommendations: Continue POC Treatment Plan/Plan of Care Patient would benefit from OT for education, treatment and training to promote independence in ADL's, mobility, safety and/or upper extremity function for A DL's. Plan of Care: ADL Retraining, Functional Mobility, Group Exercise/Act as Ind, UE Funct Exercise/Act Treatment Duration: Jun 16, 2020 Frequency: At least 5 of 7 days/Wk (IRF) Estimated Hrs Per Day: 1.5 hours per day Agreement: Yes Rehab Potential: Fair Time/GCodes Start Time: 09:45 Stop Time: 14:00 Total Time Billed (hr/min): 90 Billed Treatment Time cotreat x15' [id number], OT tx x45' [id number] 1, EX 2 (30'), FA 2 (30') [id number] OT Tx 1, FA 2 MILAD HENDRICKSON OT Jun 04, 2020 10:44
[2020-06-04] MEDS: RT-ALBUTEROL/IPRATROPIUM 3 ML (DUONEB) VIAL INH SCH ×4 (10:56→21:09)
[2020-06-04] MEDS: UMECLIDINIUM BROMIDE (INCRUSE ELLIPTA) 7'S IH SCH (11:00)
--- NOTE | 2020-06-04 12:11 | PM&R Progress Note ---
Subjective HPI/CC On Admission Date Seen by Provider: Jun 04, 2020 Time Seen by Provider: 11:30 Subjective/Events-last exam 06/04/20: Pt doing pretty well No bowels moving for the last three days BP has some variations 06/03/20: Pt very inappropriate with his responses Police came to his room because visitors that had just seen him that were involved in a crime and then went missing Right lower extremity is very weak Constantly asking to go outside and I know that is to "shoot up" Methamphetamine 06/02/20: Pt making some progress Curses a lot Impaired sleep but he did have some rest last night Constantly wants to go outside and I know that is to be able to smoke meth Very difficult situation 06/01/20: Pt having no new issues Very complex issues because of meth use and behaviors Working hard but likely will need a long-term Very difficult situation, social-handy 05/31/20: Patient cursing at his phone about his girlfriend Meth use has changed brain function BM treatment ordered Patient still asking if he can go outside if he has a visitor but I fear he would use meth so I am not approving him of going outside or off unit without staff 05/30/20: Patient had episode of CP last night and dyspnea Cardiology evaluated him today CXR ATX no evidence of sepsis or PNA Meth use hx has caused multiple medical issues 05/29/20: Patient remains stable Labile moods are from meth use hx Asking if he could go outside with his friend tomorrow and I stated likely not due to his meth use and could take [place] at that time 05/28/20: Labile behavior h/o meth use has been a factor in this behavior Obsessed about where his girlfriend is Lungs are clear 05/27/20: Pt doing a lot better Slept in today Working with therapy Right-sided weakness is significant Will work through things as they come Hopefully wont leave AMA this time Review of Systems General: Fatigue, Malaise Neurological: Weakness Objective Exam Vital Signs Vital Signs Date Time Temp Pulse Resp B/P (MAP) Pulse Ox O2 Delivery O2 Flow Rate FiO2 06/04/20 21:09 98 Room Air 06/04/20 20:00 36.4 68 20 101/55 (70) Capillary Refill : General Appearance: No Apparent Distress, WD/WN, Chronically ill, Thin HEENT: PERRL/EOMI, Normal ENT Inspection, Pharynx Normal Neck: Full Range of Motion, Normal Inspection, Non Tender, Supple, Carotid Bruit Respiratory: Chest Non Tender, Lungs Clear, Normal Breath Sounds, No Accessory Muscle Use, No Respiratory Distress Cardiovascular: Regular Rate, Rhythm, No Edema, No Gallop, No JVD, No Murmur, Normal Peripheral Pulses Gastrointestinal: Normal Bowel Sounds, No Organomegaly, No Pulsatile Mass, Non Tender, Soft Back: Normal Inspection, No CVA Tenderness, No Vertebral Tenderness Extremity: Normal Capillary Refill, Normal Inspection, Normal Range of Motion, Non Tender, No Calf Tenderness, No Pedal Edema Neurologic/Psychiatric: Alert, Oriented x3, Normal Mood/Affect, Motor Weakness (right sided weakness 3/5 leg and arm) Skin: Normal Color, Warm/Dry Lymphatic: No Adenopathy Results/Procedures Lab Patient resulted labs reviewed. FIM Transfers Therapy Code Descriptions/Definitions Functional [place] Measure: 0=Not Assessed/NA 4=Minimal Assistance 1=Total Assistance 5=Supervision or Setup 2=Maximal Assistance 6=Modified [place] 3=Moderate Assistance 7=Complete IndependenceSCALE: Activities may be completed with or without assistive devices. 1-Isedsvokng-ekhzmsb completes the activity by him/herself with no assistance from a helper. 5-Set-up or Clean-up Assistance-helper sets up or cleans up; patient completes activity. [place] assists only prior to or following the activity. 4-Supervision or Touching Assistance-helper provides verbal cues and/or touching/steadying and/or contact guard assistance as patient completes activity. Assistance may be provided throughout the activity or intermittently. 3-Partial/Moderate Assistance-helper does LESS THAN HALF the effort. [place] lifts, holds or supports trunk or limbs, but provides less than half the effort. 2-Substantial/Maximal Assistance-helper does MORE THAN HALF the effort. [place] lifts or holds trunk or limbs and provides more than half the effort. 3-Wfexmangs-crfdjg does ALL the effort. Patient does none of the effort to complete the activity. Or, the assistance of 2 or more helpers is required for the patient to complete the activity. If activity was not attempted, code reason: 7-Patient Refused. 9-Not Applicable-not attempted and the patient did not perform the activity before the current illness, exacerbation or injury. 10-Not Attempted due to Environmental Limitations-(lack of equipment, weather restraints, etc.). 88-Not Attempted due to Medical Conditions or Safety Concerns. Roll Left to Right (QC): 6 Sit to Lying (QC): 5 Sit to Stand (QC): 3 Chair/Lmz-ml-Wssix Xfer(QC): 4 Car Transfer (QC): 3 (mod) Gait Training Does the Patient Walk?: Yes Distance: 80' x2 Walk 10 feet (QC): 4 Walk 50 ft with 2 Turns(QC): 4 Walk 150 ft (QC): 88 Walking 10ft/uneven surface-QC: 88 Gait Persons Needed: 1 Gait Assistive Device: FWW Wheelchair Training Does the Pt Use a Wheelchair?: Yes Wheel 50 ft with 2 turns (QC): 5 Wheel 150 ft (QC): 4 Type of Wheelchair: Manual Stair Training 1 Step (curb) (QC): 88 4 Steps (QC): 88 12 Steps (QC): 88 Balance Picking up an Object (QC): 88 ADL-Treatment Eating (QC): 5 (set up with containers) Oral Hygiene (QC): 7 (Pt declined as he does not have any teeth.) Shower/Bathe Self (QC): 4 (SBA, pt washed/dried all parts seated on SC) Upper Body Dressing (QC): 4 (SBA, pt required min verbal cues to sequence how to doff/don picker/puller shirt.) Lower Body Dressing (QC): 3 (Pt required min A standing balance at GBs/FWW for pant hike. Pt able to doff pants using AE, assist with donning RLE.) On/Off Footwear (QC): 3 (Pt able to doff bilateral gripper socks, able to don using 1 handed technique. 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 05/03/20 Plan: IRF protocol Monitor closely Supportive care Hope does not leave AMA 05/28/20: Monitor closely Very labile behavior 05/29/20: Monitor closely Meth use has caused labile behavior 05/30/20: CP and dyspnea monitored 05/31/20: Monitor closely Not allowed to leave the unit without staff due to what I suspect as planning to use meth 06/01/20: Monitor closely Continue treatment 06/02/20: Monitor closely Cannot go outside as he is requesting daily due to high risk for using meth 06/03/20: Monitor closely Meth use is causing all med issues and behaviors 06/04/20: Monitor CP Monitor closely (1) CVA (cerebral vascular accident) Status: Acute (2) Methamphetamine abuse Status: Acute (3) HLD (hyperlipidemia) Status: Chronic (4) Carotid stenosis Status: Acute (5) HTN (hypertension) Status: Acute (6) Cannabis abuse Status: Acute (7) Hemiparesis of right dominant side Status: Acute (8) Very heavy cigarette smoker (40 or more per day) Status: Acute (9) Illicit drug use Status: Acute (10) Hypertension (11) COPD (chronic obstructive pulmonary disease) PRUDENCE BECK DO Jun 04, 2020 12:11
--- NOTE | 2020-06-04 13:47 | Physical Therapy Daily Note ---
PT Daily Note-Current Subjective Patient in bed pre tx. Patient agreeable to therapy. Patient had no pain reports pre tx. Appearance Patient upright in bed post tx, with call button within reach and tray table nearby. Mental Status Patient Orientation: Person, Place, Time, Situation Transfers SCALE: Activities may be completed with or without assistive devices. 3-Pobqlavofw-wcqogrq completes the activity by him/herself with no assistance from a helper. 5-Set-up or Clean-up Assistance-helper sets up or cleans up; patient completes activity. [place] assists only prior to or following the activity. 4-Supervision or Touching Assistance-helper provides verbal cues and/or touching/steadying and/or contact guard assistance as patient completes activity. Assistance may be provided throughout the activity or intermittently. 3-Partial/Moderate Assistance-helper does LESS THAN HALF the effort. [place] lifts, holds or supports trunk or limbs, but provides less than half the effort. 2-Substantial/Maximal Assistance-helper does MORE THAN HALF the effort. [place] lifts or holds trunk or limbs and provides more than half the effort. 6-Bolmomozr-duoipu does ALL the effort. Patient does none of the effort to complete the activity. Or, the assistance of 2 or more helpers is required for the patient to complete the activity. If activity was not attempted, code reason: 7-Patient Refused. 9-Not Applicable-not attempted and the patient did not perform the activity before the current illness, exacerbation or injury. 10-Not Attempted due to Environmental Limitations-(lack of equipment, weather restraints, etc.). 88-Not Attempted due to Medical Conditions or Safety Concerns. Roll Left & Right (QC): 6 Sit to Lying (QC): 6 Lying to Sitting/Side of Bed(Q: 6 Sit to Stand (QC): 3 (mod) Chair/Jaj-hp-Gscje Xfer(QC): 3 (mod) Patient required more assistance with all transfers. Patient is inconsistent with amount of assistance required. Weight Bearing Full Weight Bearing Full Weight Bearing Gait Training Does the Patient Walk?: Yes Distance: 1' Gait Assistive Device: FWW Patient attempted to ambulate at beginning of session. Was able to take a few steps before saying "he couldn't do it." Sat patient on bed and patient agreed to be taken to gym in w/c. Wheelchair Training Does the Pt Use a Wheelchair?: Yes Patient was previously able to navigate w/c on own, but said his "right leg was not moving right" this afternoon. Patient was able to self-propel a distance of 10' Exercises Seated Therapy Exercises: Ankle pumps (unable to complete on R), Long arc quads (10 reps on R, with max effort), Hip flexion (10 reps on R, with max effort), Hip abd/add (RTB, mini ball) Seated Reps: 20 Treatments LE strengthening, ROM, transfers Assessment Current Status: Poor Progress decreased endurance, not as motivated to participate today, completed reps with more effort PT Short Term Goals Short Term Goals Time Frame: Jun 02, 2020 Roll Left & Right: 4 (SBA) Sit to lyin (SBA) Lying to sitting on side of be: 4 (SBA) Sit to stand: 4 (CGA) Chair/mbe-th-isdzr transfer: 4 (min) Toilet transfer: 4 (min) Car transfer: 4 (min) Walk 10 feet: 4 (min) Walk 50 feet with two turns: 4 (min) 1 step (curb): 4 (CGA) Wheel 50ft w/2 turns: 4 Wheel 150 feet: 4 PT Mail Examiner Goals Halfway Goals PT Halfway Goals Time Frame: Jun 16, 2020 Roll Left & Right (QC): 5 Sit to Lying (QC): 5 Lying-Sitting on Side/Bed(QC): 5 Sit to Stand (QC): 5 Chair/Izj-jj-Squaf Xfer(QC): 4 (CGA) Toilet Transfer (QC): 4 (CGA) Car Transfer (QC): 4 (CGA) Does the Patient Walk: Yes Walk 10 feet (QC): 4 (CGA) Walk 50ft with 2 Turns (QC): 4 (CGA) Walk 150 ft (QC): 4 (CGA) Walking 10ft on Uneven Surface: 4 (CGA) 1 Step (curb) (QC): 4 (CGA) 4 Steps (QC): 4 (CGA) 12 Steps (QC): 88 Picking up an Object (QC): 4 (CGA) Does the Pt use WC or Scooter?: Yes Wheel 50 feet with 2 turns (QC: 6 Type: Manual Wheel 150 feet: 6 Type: Manual PT Plan Problem List Problem List: Activity Tolerance, Functional Strength, Safety, Balance, Gait, Transfer, Bed Mobility, ROM Treatment/Plan Treatment Plan: Continue Plan of Care Treatment Plan: Bed Mobility, Education, Functional Activity Dutch, Functional Strength, Group Therapy, Gait, Safety, Therapeutic Exercise, Transfers Treatment Duration: Jun 16, 2020 Frequency: At least 5 of 7 days/Wk (IRF) Estimated Hrs Per Day: 1.5 hours per day Patient and/or Family Agrees t: Yes Safety Risks/Education Patient Education: Gait Training, Transfer Techniques, Correct Positioning, W/C Management, Safety Issues Teaching Recipient: Patient, Family Teaching Methods: Demonstration, Discussion Response to Teaching: Verbalize Understanding, Return Demonstration Time/GCodes Time In: 1300 Time Out: 1330 Total Billed Treatment Time: 30 Total Billed Treatment 1 visit: FA: 15' EX: 15' IAN PETTY PT Jun 04, 2020 13:47
[2020-06-04 14:58] LABS: AMPHETAMINE SCREEN, URINE NEGATIVE (NEGATIVE); BARBITURATE SCREEN URINE NEGATIVE (NEGATIVE); BENZODIAZEPINES SCREEN URINE NEGATIVE (NEGATIVE); CANNABINOID SCREEN, URINE POSITIVE (NEGATIVE); COCAINE SCREEN URINE NEGATIVE (NEGATIVE); METHADONE STAT NEGATIVE (NEGATIVE); METHAMPHETAMINE SCREEN URINE S NEGATIVE (NEGATIVE); OPIATE SCREEN URINE NEGATIVE (NEGATIVE); OXYCODONE STAT NEGATIVE (NEGATIVE); PROPOXYPHENE STAT NEGATIVE (NEGATIVE); TRICYCLIC ANTIDEPRESSANTS SCRE NEGATIVE (NEGATIVE)
[2020-06-04 20:00] VITALS: BP 101/55
[2020-06-04] MEDS: ALPRAZolam 0.25 MG (XANAX) TAB PO PRN (21:12)
[2020-06-04] MEDS: MELATONIN 3 MG TABLET PO PRN (21:12)
[2020-06-05] MEDS: RT-ALBUTEROL/IPRATROPIUM 3 ML (DUONEB) VIAL INH SCH ×3 (08:00→21:47)
[2020-06-05] MEDS: UMECLIDINIUM BROMIDE (INCRUSE ELLIPTA) 7'S IH SCH (08:00)
--- NOTE | 2020-06-05 08:34 | Occupational Ther Daily Note ---
OT Current Status-Daily Note Subjective Pt seated upright in w/c, agreeable to OT tx. Pt playing music on his phone, playing a particular song that always gets him emotional, pt tearful as song was playing. ADL-Treatment Therapy Code Descriptions/Definitions Functional [place] Measure: 0=Not Assessed/NA 4=Minimal Assistance 1=Total Assistance 5=Supervision or Setup 2=Maximal Assistance 6=Modified [place] 3=Moderate Assistance 7=Complete IndependenceSCALE: Activities may be completed with or without assistive devices. 3-Zbvvamtumm-gcvlqwz completes the activity by him/herself with no assistance from a helper. 5-Set-up or Clean-up Assistance-helper sets up or cleans up; patient completes activity. [place] assists only prior to or following the activity. 4-Supervision or Touching Assistance-helper provides verbal cues and/or touching/steadying and/or contact guard assistance as patient completes activity. Assistance may be provided throughout the activity or intermittently. 3-Partial/Moderate Assistance-helper does LESS THAN HALF the effort. [place] lifts, holds or supports trunk or limbs, but provides less than half the effort. 2-Substantial/Maximal Assistance-helper does MORE THAN HALF the effort. [place] lifts or holds trunk or limbs and provides more than half the effort. 3-Xfbuqxxzt-zsahdp does ALL the effort. Patient does none of the effort to co mplete the activity. Or, the assistance of 2 or more helpers is required for the patient to complete the activity. If activity was not attempted, code reason: 7-Patient Refused. 9-Not Applicable-not attempted and the patient did not perform the activity before the current illness, exacerbation or injury. 10-Not Attempted due to Environmental Limitations-(lack of equipment, weather restraints, etc.). 88-Not Attempted due to Medical Conditions or Safety Concerns. Shower/Bathe Self (QC): 4 (Supervision, pt able to wash/dry all parts seated on SC) Upper Body Dressing (QC): 3 (Pt doffed shirt with increased time, min A donning shirt due to rolling on R side, assist to unroll) Lower Body Dressing (QC): 3 (Min A doffing/donning pants on RLE. Pt able to complete pant hike, min A standing balance, and able to complete LLE) On/Off Footwear: 3 (Pt required assistance holding RLE for doffing. pt able to doff socks using AE. Pt donned socks using 1 handed method, assist with RLE) Other Treatment Pt up in w/c, taken into bathroom and SPT to MD, CGA. Pt completed shower seated on MD, leaning side to side to wash buttocks. Pt then transferred to w/c to don clothes. Min A standing balance at FWW for pant hike. Pt sat in w/c at sink to shave, independently. Pt propelled w/c to therapy gym, min A due to occasionally running into objects on R side. In order to increase BUE strength/activity tolerance, neuromuscular reeducation of RUE, and bilateral integration, pt completed x15 mins on arm bike, min resistance, with 2 minutes of just using RU E. Pt propelled w/c back to his room, transferring to bed, SPT, CGA. Post tx, pt laying in bed, call light in reach and all needs met. Education OT Patient Education: Correct positioning, Energy conservation, Exercise prog jacki, Modified ADL techniques, Progress toward Goal/Update tx plan, Purpose of tx/functional activities Teaching Recipient: Patient Teaching Methods: Discussion Response to Teaching: Verbalize Understanding OT Short Term Goals Short Term Goals Time Frame: Jun 02, 2020 Eatin Oral hygiene: 88 Toileting hygiene: 3 Shower/bathe self: 3 Upper body dressin Lower body dressin Putting on/taking off footwear: 3 OT News Production Assistant Goals News Production Assistant Goals Time Frame: Jun 16, 2020 Eating (QC): 6 Oral Hygiene (QC): 88 Toileting Hygiene (QC): 6 Shower/Bathe Self (QC): 4 Upper Body Dressing (QC): 6 Lower Body Dressing (QC): 6 On/Off Footwear (QC): 6 Additional Goals: 1-Demonstrate ADL Tasks, 2-Verbalize Understanding, 3- ImproveStrength/Dutch 1=Demonstrate adherence to instructed precautions during ADL tasks. 2=Patient will verbalize/demonstrate understanding of assistive devices/modifications for ADL. 3=Patient will improve strength/tolerance for activity to enable patient to perform ADL's. OT Education/Plan Problem List/Assessment Assessment: Decreased Activ Tolerance, Decreased UE Strength, Impaired Funct Balance, Impaired I ADL's, Impaired Self-Care Skills, Restricted Funct UE ROM Discharge Recommendations Plan/Recommendations: Continue POC Treatment Plan/Plan of Care Patient would benefit from OT for education, treatment and training to promote independence in ADL's, mobility, safety and/or upper extremity function for ADL's. Plan of Care: ADL Retraining, Functional Mobility, Group Exercise/Act as Ind, UE Funct Exercise/Act Treatment Duration: Jun 16, 2020 Frequency: At least 5 of 7 days/Wk (IRF) Estimated Hrs Per Day: 1.5 hours per day Agreement: Yes Rehab Potential: Fair Time/GCodes Start Time: 08:00 Stop Time: 09:30 Total Time Billed (hr/min): 90 Billed Treatment Time 1, ADL 4 (60'), FA (15'), EX (15') MILAD HENDRICKSON OT Jun 05, 2020 08:34
[2020-06-05 08:53] VITALS: BP 136/66
[2020-06-05] MEDS: amLODIPine 5 MG (NORVASC) TAB PO SCH (09:12)
[2020-06-05] MEDS: ASPIRIN 81 MG CHEW (CHILDREN'S ASA) PO SCH (09:12)
[2020-06-05] MEDS: lisINopril 20 MG (PRINIVIL) TABLET PO SCH (09:12)
[2020-06-05] MEDS: ENOXAPARIN 40 MG/0.4 ML (LOVENOX) SYR SC SCH (09:12)
[2020-06-05] MEDS: CLOPIDOGREL 75 MG (PLAVIX) TABLET PO SCH (09:12)
[2020-06-05] MEDS: SENNA W/DOCUSATE (SENOKOT S) TABLET PO SCH ×2 (09:12→20:15)
[2020-06-05] MEDS: DOCUSATE SODIUM 100 MG (COLACE) CAP PO SCH ×2 (09:13→20:16)
[2020-06-05] MEDS: GABAPENTIN 300 MG (NEURONTIN) CAP PO SCH ×3 (09:13→20:15)
[2020-06-05] MEDS: polyethylene glycoL POWDER 17 GM (MIRALAX) PACK PO SCH ×2 (09:13→20:16)
[2020-06-05] MEDS: FLUTICASONE NASAL SPRAY (FLONASE) 16 GM BTL NS SCH ×2 (09:14→20:17)
--- NOTE | 2020-06-05 10:39 | Physical Therapy Daily Note ---
PT Daily Note-Current Subjective Patient is supine in bed, reports no pain pre tx, and consents to physical therapy. Appearance Patient laying supine in bed, with call button and phone within reach and tray table positioned nearby. Mental Status Patient Orientation: Person, Place, Time, Situation Transfers SCALE: Activities may be completed with or without assistive devices. 3-Kvdwnenoll-laijonw completes the activity by him/herself with no assistance from a helper. 5-Set-up or Clean-up Assistance-helper sets up or cleans up; patient completes activity. [place] assists only prior to or following the activity. 4-Supervision or Touching Assistance-helper provides verbal cues and/or touching/steadying and/or contact guard assistance as patient completes activit y. Assistance may be provided throughout the activity or intermittently. 3-Partial/Moderate Assistance-helper does LESS THAN HALF the effort. [place] lifts, holds or supports trunk or limbs, but provides less than half the effort. 2-Substantial/Maximal Assistance-helper does MORE THAN HALF the effort. [place] lifts or holds trunk or limbs and provides more than half the effort. 8-Pjgbhbyfv-cmzzyt does ALL the effort. Patient does none of the effort to complete the activity. Or, the assistance of 2 or more helpers is required for the patient to complete the activity. If activity was not attempted, code reason: 7-Patient Refused. 9-Not Applicable-not attempted and the patient did not perform the activity before the current illness, exacerbation or injury. 10-Not Attempted due to Environmental Limitations-(lack of equipment, weather restraints, etc.). 88-Not Attempted due to Medical Conditions or Safety Concerns. Roll Left & Right (QC): 6 Lying to Sitting/Side of Bed(Q: 6 Sit to Stand (QC): 4 (CGA) Patient did not require any assistance with maneuvering LE's with lying to sitting side of bed. CGA with sit <-> stand transfer, continues to need a few attempts to complete transfer. Weight Bearing Full Weight Bearing Full Weight Bearing Gait Training Does the Patient Walk?: Yes Distance: 120' x2 Patient required one seated rest break with first ambulation, demonstrated a step- to gait pattern the first 80', but demonstrated a reciprocal gait pattern with good pacing for the last 40'. During last ambulation cycle, patient was able to ambulate entire distance from gym to room without rest break; gait intermittently changed from reciprocal to step-to, but no leg buckling was demonstrated. Exercises Seated Therapy Exercises: Ankle pumps (unable to perform on R ), Long arc quads (2 sets), Hip flexion (2 sets), Glut set Seated Reps: 20 Only able to complete 10 reps of LAQ and hip flexion on R NuStep Minutes: 15 NuStep Workload: 5 Treatments LE strengthening, ROM, endurance, Gait Training, transfers Assessment Current Status: Fair Progress Increased load on NuStep, demonstrated smooth reciprocal gait pattern for 40', beginning to demonstrate better strength in R LE with hip flexion and knee extension against gravity PT Short Term Goals Short Term Goals Time Frame: Jun 02, 2020 Roll Left & Right: 4 (SBA) Sit to lyin (SBA) Lying to sitting on side of be: 4 (SBA) Sit to stand: 4 (CGA) Chair/xoe-rh-nbybb transfer: 4 (min) Toilet transfer: 4 (min) Car transfer: 4 (min) Walk 10 feet: 4 (min) Walk 50 feet with two turns: 4 (min) 1 step (curb): 4 (CGA) Wheel 50ft w/2 turns: 4 Wheel 150 feet: 4 PT Halfway Goals Senior Market Intelligence Consultant Goals PT Halfway Goals Time Frame: Jun 16, 2020 Roll Left & Right (QC): 5 Sit to Lying (QC): 5 Lying-Sitting on Side/Bed(QC): 5 Sit to Stand (QC): 5 Chair/Dgi-nq-Axeqv Xfer(QC): 4 (CGA) Toilet Transfer (QC): 4 (CGA) Car Transfer (QC): 4 (CGA) Does the Patient Walk: Yes Walk 10 feet (QC): 4 (CGA) Walk 50ft with 2 Turns (QC): 4 (CGA) Walk 150 ft (QC): 4 (CGA) Walking 10ft on Uneven Surface: 4 (CGA) 1 Step (curb) (QC): 4 (CGA) 4 Steps (QC): 4 (CGA) 12 Steps (QC): 88 Picking up an Object (QC): 4 (CGA) Does the Pt use WC or Scooter?: Yes Wheel 50 feet with 2 turns (QC: 6 Type: Manual Wheel 150 feet: 6 Type: Manual PT Plan Problem List Problem List: Activity Tolerance, Functional Strength, Safety, Balance, Gait, Transfer, Bed Mobility, ROM Treatment/Plan Treatment Plan: Continue Plan of Care Treatment Plan: Bed Mobility, Education, Functional Activity Dutch, Functional Strength, Group Therapy, Gait, Safety, Therapeutic Exercise, Transfers Treatment Duration: Jun 16, 2020 Frequency: At least 5 of 7 days/Wk (IRF) Estimated Hrs Per Day: 1.5 hours per day Patient and/or Family Agrees t: Yes Safety Risks/Education Patient Education: Gait Training, Transfer Techniques, Correct Positioning, Safety Issues Teaching Recipient: Patient Teaching Methods: Demonstration, Discussion Response to Teaching: Verbalize Understanding, Return Demonstration Time/GCodes Time In: 1000 Time Out: 1130 Total Billed Treatment Time: 90 Total Billed Treatment 1 visit: GT x2: 30' EX x3: 45' FA: 15' IAN PETTY PT Jun 05, 2020 10:39
--- NOTE | 2020-06-05 10:46 | PM&R Progress Note ---
Subjective HPI/CC On Admission Date Seen by Provider: Jun 05, 2020 Time Seen by Provider: 11:00 Subjective/Events-last exam 06/05/20: BM today Doing well Labile moods from meth use hx THC only on UDS BP good no orthostasis 06/04/20: Pt doing pretty well No bowels moving for the last three days BP has some variations 06/03/20: Pt very inappropriate with his responses Police came to his room because visitors that had just seen him that were involved in a crime and then went missing Right lower extremity is very weak Constantly asking to go outside and I know that is to "shoot up" Methamphetamine 06/02/20: Pt making some progress Curses a lot Impaired sleep but he did have some rest last night Constantly wants to go outside and I know that is to be able to smoke meth Very difficult situation 06/01/20: Pt having no new issues Very complex issues because of meth use and behaviors Working hard but likely will need a group home Very difficult situation, social-handy 05/31/20: Patient cursing at his phone about his girlfriend Meth use has changed brain function BM treatment ordered Patient still asking if he can go outside if he has a visitor but I fear he would use meth so I am not approving him of going outside or off unit without staff 05/30/20: Patient had episode of CP last night and dyspnea Cardiology evaluated him today CXR ATX no evidence of sepsis or PNA Meth use hx has caused multiple medical issues 05/29/20: Patient remains stable Labile moods are from meth use hx Asking if he could go outside with his friend tomorrow and I stated likely not due to his meth use and could take [place] at that time 05/28/20: Labile behavior h/o meth use has been a factor in this behavior Obsessed about where his girlfriend is Lungs are clear 05/27/20: Pt doing a lot better Slept in today Working with therapy Right-sided weakness is significant Will work through things as they come Hopefully wont leave AMA this time Review of Systems General: Fatigue Neurological: Weakness Objective Exam Vital Signs Vital Signs Date Time Temp Pulse Resp B/P (MAP) Pulse Ox O2 Delivery O2 Flow Rate FiO2 06/06/20 08:46 Room Air 06/06/20 07:30 60 18 157/74 (101) 96 06/05/20 20:00 36.2 Capillary Refill : General Appearance: No Apparent Distress, WD/WN, Chronically ill, Thin HEENT: PERRL/EOMI, Normal ENT Inspection, Pharynx Normal Neck: Full Range of Motion, Normal Inspection, Non Tender, Supple, Carotid Bruit Respiratory: Chest Non Tender, Lungs Clear, Normal Breath Sounds, No Accessory Muscle Use, No Respiratory Distress Cardiovascular: Regular Rate, Rhythm, No Edema, No Gallop, No JVD, No Murmur, Normal Peripheral Pulses Gastrointestinal: Normal Bowel Sounds, No Organomegaly, No Pulsatile Mass, Non Tender, Soft Back: Normal Inspection, No CVA Tenderness, No Vertebral Tenderness Extremity: Normal Capillary Refill, Normal Inspection, Normal Range of Motion, Non Tender, No Calf Tenderness, No Pedal Edema Neurologic/Psychiatric: Alert, Oriented x3, Normal Mood/Affect, Motor Weakness (right sided weakness 3/5 leg and arm) Skin: Normal Color, Warm/Dry Lymphatic: No Adenopathy Results/Procedures Lab Patient resulted labs reviewed. FIM Transfers Therapy Code Descriptions/Definitions Functional [place] Measure: 0=Not Assessed/NA 4=Minimal Assistance 1=Total Assistance 5=Supervision or Setup 2=Maximal Assistance 6=Modified [place] 3=Moderate Assistance 7=Complete IndependenceSCALE: Activities may be completed with or without assistive devices. 8-Obvohfmwux-uruyxcg completes the activity by him/herself with no assistance from a helper. 5-Set-up or Clean-up Assistance-helper sets up or cleans up; patient completes activity. [place] assists only prior to or following the activity. 4-Supervision or Touching Assistance-helper provides verbal cues and/or touching/steadying and/or contact guard assistance as patient completes activity. Assistance may be provided throughout the activity or intermittently. 3-Partial/Moderate Assistance-helper does LESS THAN HALF the effort. [place] lifts, holds or supports trunk or limbs, but provides less than half the effort. 2-Substantial/Maximal Assistance-helper does MORE THAN HALF the effort. [place] lifts or holds trunk or limbs and provides more than half the effort. 4-Zxbzqrleg-zqgkls does ALL the effort. Patient does none of the effort to complete the activity. Or, the assistance of 2 or more helpers is required for the patient to complete the activity. If activity was not attempted, code reason: 7-Patient Refused. 9-Not Applicable-not attempted and the patient did not perform the activity before the current illness, exacerbation or injury. 10-Not Attempted due to Environmental Limitations-(lack of equipment, weather restraints, etc.). 88-Not Attempted due to Medical Conditions or Safety Concerns. Roll Left to Right (QC): 6 Sit to Lying (QC): 6 Sit to Stand (QC): 4 (CGA) Chair/Xhd-tu-Pnthx Xfer(QC): 3 (mod) Car Transfer (QC): 3 (mod) Gait Training Does the Patient Walk?: Yes Distance: 120' Walk 10 feet (QC): 4 Walk 50 ft with 2 Turns(QC): 4 Walk 150 ft (QC): 88 Walking 10ft/uneven surface-QC: 88 Gait Persons Needed: 1 Gait Assistive Device: FWW Wheelchair Training Does the Pt Use a Wheelchair?: Yes Wheel 50 ft with 2 turns (QC): 5 Wheel 150 ft (QC): 4 Type of Wheelchair: Manual Stair Training 1 Step (curb) (QC): 88 4 Steps (QC): 88 12 Steps (QC): 88 Balance Picking up an Object (QC): 88 ADL-Treatment Eating (QC): 5 (set up with containers) Oral Hygiene (QC): 7 (Pt declined as he does not have any teeth.) Shower/Bathe Self (QC): 4 (Supervision, pt able to wash/dry all parts seated on SC) Upper Body Dressing (QC): 3 (Pt doffed shirt with increased time, min A donning shirt due to rolling on R side, assist to unroll) Lower Body Dressing (QC): 3 (Min A doffing/donning pants on RLE. Pt able to complete pant hike, min A standing balance, and able to complete LLE) On/Off Footwear (QC): 3 (Pt required assistance holding RLE for doffing. pt able to doff socks using AE. 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 05/03/20 Plan: IRF protocol Monitor closely Supportive care Hope does not leave AMA 05/28/20: Monitor closely Very labile behavior 05/29/20: Monitor closely Meth use has caused labile behavior 05/30/20: CP and dyspnea monitored 05/31/20: Monitor closely Not allowed to leave the unit without staff due to what I suspect as planning to use meth 06/01/20: Monitor closely Continue treatment 06/02/20: Monitor closely Cannot go outside as he is requesting daily due to high risk for using meth 06/03/20: Monitor closely Meth use is causing all med issues and behaviors 06/04/20: Monitor CP Monitor closely 06/05/20: Doing better DC planning (1) CVA (cerebral vascular accident) Status: Acute (2) Methamphetamine abuse Status: Acute (3) HLD (hyperlipidemia) Status: Chronic (4) Carotid stenosis Status: Acute (5) HTN (hypertension) Status: Acute (6) Cannabis abuse Status: Acute (7) Hemiparesis of right dominant side Status: Acute (8) Very heavy cigarette smoker (40 or more per day) Status: Acute (9) Illicit drug use Status: Acute (10) Hypertension (11) COPD (chronic obstructive pulmonary disease) PRUDENCE BECK DO Jun 05, 2020 10:46
--- NOTE | 2020-06-05 12:11 | Physician Query Clarification ---
PQ-Further Specificity Admission/Discharge Admission Date: May 26, 2020 at 10:05 Discharge Date: Dr. Pereira, The medical record reflects the following clinical scenario: History/Risk Factors: CVA w/ rt hemiplegia Clinical Findings: Recurrent CVA d/t Carotid artery stenosis, had a stroke in December 2019 resulted in right-sided weakness, had left-sided weakness on this admission. He had history of carotid stenting at [facility] in January 2020 after the first stroke, he is known to have complete occlusion of the left common and internal carotid arteries, stent of the right carotid artery. Most recent CTA head done 05/23/20 showing internal thrombus within the right internal carotid artery stent which is slightly less prominent than on the prior examination. Treatment: Rehab Question: Can you further specify please clarify hemiplegia and cause of CVA per the clinical indicators above? Cardiac Nurse Specialist documentation states Recurrent CVA d/t Carotid artery stenosis, had a stroke in December 2019 resulted in right-sided weakness, had left-sided weakness on this admission. Please document a response in the Progress Notes or Discharge Summary. 1. hx of right hemiparesis with current lt hemiparesis d/t thrombus of rt internal carotid artery stent 2. rt hemiparesis only d/t old occlusion of lt common and iternal carotid arteries and new internal thrombus rt internal carotid artery stent 3. Other, with explanation of the clinical findings. 4. Clinically undetermined, no explanation for the clinical findings. PHYSICIAN RESPONSE Can you specify per above: 2 Please remember a lack of response to the above will prompt a phone page by CDI/Coding staff. In responding to this query, please exercise your independent professional judgment. The purpose of this communication is to more accurately reflect the complexity of your patients condition. The fact that a question is asked does not imply that any particular answer is desired or expected. Thank you for your timely response to this clarification. Requestors name: Santi THIS PHYSICIAN QUERY FORM IS A PERMANENT PART OF THE MEDICAL RECORD SANTI ALANIS Jun 05, 2020 12:11 PRUDENCE PEREIRA DO Jun 06, 2020 07:28
[2020-06-05 20:00] VITALS: BP 147/69
[2020-06-05] MEDS: MELATONIN 3 MG TABLET PO PRN (20:15)
[2020-06-05] MEDS: ALPRAZolam 0.25 MG (XANAX) TAB PO PRN (20:15)
[2020-06-06] MEDS: RT-ALBUTEROL/IPRATROPIUM 3 ML (DUONEB) VIAL INH SCH (07:06)
[2020-06-06] MEDS: UMECLIDINIUM BROMIDE (INCRUSE ELLIPTA) 7'S IH SCH (07:06)
[2020-06-06 07:30] VITALS: BP 157/74
[2020-06-06] MEDS: amLODIPine 5 MG (NORVASC) TAB PO SCH (08:37)
[2020-06-06] MEDS: lisINopril 20 MG (PRINIVIL) TABLET PO SCH (08:37)
[2020-06-06] MEDS: SENNA W/DOCUSATE (SENOKOT S) TABLET PO SCH ×2 (08:37→21:00)
[2020-06-06] MEDS: ASPIRIN 81 MG CHEW (CHILDREN'S ASA) PO SCH (08:37)
[2020-06-06] MEDS: FLUTICASONE NASAL SPRAY (FLONASE) 16 GM BTL NS SCH ×2 (08:37→20:45)
[2020-06-06] MEDS: CLOPIDOGREL 75 MG (PLAVIX) TABLET PO SCH (08:37)
[2020-06-06] MEDS: ENOXAPARIN 40 MG/0.4 ML (LOVENOX) SYR SC SCH (08:37)
[2020-06-06] MEDS: GABAPENTIN 300 MG (NEURONTIN) CAP PO SCH ×3 (08:38→20:43)
[2020-06-06] MEDS: DOCUSATE SODIUM 100 MG (COLACE) CAP PO SCH ×2 (08:38→21:00)
[2020-06-06] MEDS: polyethylene glycoL POWDER 17 GM (MIRALAX) PACK PO SCH ×2 (09:54→21:00)
--- NOTE | 2020-06-06 11:17 | Physical Therapy Daily Note ---
PT Daily Note-Current Subjective Pt is agreeable to treatment. Mental Status Patient Orientation: Person, Place, Situation Transfers SCALE: Activities may be completed with or without assistive devices. 1-Facfamrwos-ssybvhh completes the activity by him/herself with no assistance fr om a helper. 5-Set-up or Clean-up Assistance-helper sets up or cleans up; patient completes activity. [place] assists only prior to or following the activity. 4-Supervision or Touching Assistance-helper provides verbal cues and/or touching/steadying and/or contact guard assistance as patient completes activity. Assistance may be provided throughout the activity or intermittently. 3-Partial/Moderate Assistance-helper does LESS THAN HALF the effort. [place] lifts, holds or supports trunk or limbs, but provides less than half the effort. 2-Substantial/Maximal Assistance-helper does MORE THAN HALF the effort. [place] lifts or holds trunk or limbs and provides more than half the effort. 2-Jqmkstsdi-uimnqv does ALL the effort. Patient does none of the effort to complete the activity. Or, the assistance of 2 or more helpers is required for the patient to complete the activity. If activity was not attempted, code reason: 7-Patient Refused. 9-Not Applicable-not attempted and the patient did not perform the activity before the current illness, exacerbation or injury. 10-Not Attempted due to Environmental Limitations-(lack of equipment, weather restraints, etc.). 88-Not Attempted due to Medical Conditions or Safety Concerns. Roll Left & Right (QC): 5 Sit to Lying (QC): 5 Lying to Sitting/Side of Bed(Q: 5 Sit to Stand (QC): 4 Weight Bearing Full Weight Bearing Full Weight Bearing Gait Training Does the Patient Walk?: Yes Distance: 50ft x2 Walk 10 feet (QC): 5 Walk 50 ft with 2 Turns(QC): 5 Gait Persons Needed: 1 Gait Assistive Device: FWW No instability, but fatigued rapidly. Exercises Supine Ex: LE Protocol Supine Reps: 15 Assessment Current Status: Good Progress Pt had to rest midway through ambulation. He was able to safely return to his room and get back into bed without assist. PT Short Term Goals Short Term Goals Time Frame: Jun 02, 2020 Roll Left & Right: 4 (SBA) Sit to lyin (SBA) Lying to sitting on side of be: 4 (SBA) Sit to stand: 4 (CGA) Chair/tba-oa-wwhdt transfer: 4 (min) Toilet transfer: 4 (min) Car transfer: 4 (min) Walk 10 feet: 4 (min) Walk 50 feet with two turns: 4 (min) 1 step (curb): 4 (CGA) Wheel 50ft w/2 turns: 4 Wheel 150 feet: 4 PT Fpc Goals Tank House Operator Goals PT Fpc Goals Time Frame: Jun 16, 2020 Roll Left & Right (QC): 5 Sit to Lying (QC): 5 Lying-Sitting on Side/Bed(QC): 5 Sit to Stand (QC): 5 Chair/Vvl-jb-Hvikr Xfer(QC): 4 (CGA) Toilet Transfer (QC): 4 (CGA) Car Transfer (QC): 4 (CGA) Does the Patient Walk: Yes Walk 10 feet (QC): 4 (CGA) Walk 50ft with 2 Turns (QC): 4 (CGA) Walk 150 ft (QC): 4 (CGA) Walking 10ft on Uneven Surface: 4 (CGA) 1 Step (curb) (QC): 4 (CGA) 4 Steps (QC): 4 (CGA) 12 Steps (QC): 88 Picking up an Object (QC): 4 (CGA) Does the Pt use WC or Scooter?: Yes Wheel 50 feet with 2 turns (QC: 6 Type: Manual Wheel 150 feet: 6 Type: Manual PT Plan Treatment/Plan Treatment Plan: Continue Plan of Care Treatment Plan: Bed Mobility, Education, Functional Activity Dutch, Functional Strength, Group Therapy, Gait, Safety, Therapeutic Exercise, Transfers Treatment Duration: Jun 16, 2020 Frequency: At least 5 of 7 days/Wk (IRF) Estimated Hrs Per Day: 1.5 hours per day Patient and/or Family Agrees t: Yes Time/GCodes Time In: 0850 Time Out: 09 Total Billed Treatment Time: 15 Total Billed Treatment 1, gt 15 LAMAR TSE PT Jun 06, 2020 11:17
--- NOTE | 2020-06-06 12:51 | PM&R Progress Note ---
Subjective HPI/CC On Admission Date Seen by Provider: Jun 06, 2020 Time Seen by Provider: 13:00 Subjective/Events-last exam 06/06/20: Patient doing well BM+ No pain reported 06/05/20: BM today Doing well Labile moods from meth use hx THC only on UDS BP good no orthostasis 06/04/20: Pt doing pretty well No bowels moving for the last three days BP has some variations 06/03/20: Pt very inappropriate with his responses Police came to his room because visitors that had just seen him that were involved in a crime and then went missing Right lower extremity is very weak Constantly asking to go outside and I know that is to "shoot up" Methamphetamine 06/02/20: Pt making some progress Curses a lot Impaired sleep but he did have some rest last night Constantly wants to go outside and I know that is to be able to smoke meth Very difficult situation 06/01/20: Pt having no new issues Very complex issues because of meth use and behaviors Working hard but likely will need a retirement Very difficult situation, social-handy 05/31/20: Patient cursing at his phone about his girlfriend Meth use has changed brain function BM treatment ordered Patient still asking if he can go outside if he has a visitor but I fear he would use meth so I am not approving him of going outside or off unit without staff 05/30/20: Patient had episode of CP last night and dyspnea Cardiology evaluated him today CXR ATX no evidence of sepsis or PNA Meth use hx has caused multiple medical issues 05/29/20: Patient remains stable Labile moods are from meth use hx Asking if he could go outside with his friend tomorrow and I stated likely not due to his meth use and could take [place] at that time 05/28/20: Labile behavior h/o meth use has been a factor in this behavior Obsessed about where his girlfriend is Lungs are clear 05/27/20: Pt doing a lot better Slept in today Working with therapy Right-sided weakness is significant Will work through things as they come Hopefully wont leave AMA this time Review of Systems General: Fatigue, Malaise Neurological: Weakness Objective Exam Vital Signs Vital Signs Date Time Temp Pulse Resp B/P (MAP) Pulse Ox O2 Delivery O2 Flow Rate FiO2 06/06/20 21:00 Room Air 06/06/20 20:01 36.8 70 18 126/59 (81) 96 Capillary Refill : General Appearance: No Apparent Distress, WD/WN, Chronically ill, Thin HEENT: PERRL/EOMI, Normal ENT Inspection, Pharynx Normal Neck: Full Range of Motion, Normal Inspection, Non Tender, Supple, Carotid Bruit Respiratory: Chest Non Tender, Lungs Clear, Normal Breath Sounds, No Accessory Muscle Use, No Respiratory Distress Cardiovascular: Regular Rate, Rhythm, No Edema, No Gallop, No JVD, No Murmur, Normal Peripheral Pulses Gastrointestinal: Normal Bowel Sounds, No Organomegaly, No Pulsatile Mass, Non Tender, Soft Back: Normal Inspection, No CVA Tenderness, No Vertebral Tenderness Extremity: Normal Capillary Refill, Normal Inspection, Normal Range of Motion, Non Tender, No Calf Tenderness, No Pedal Edema Neurologic/Psychiatric: Alert, Oriented x3, Normal Mood/Affect, Motor Weakness (right sided weakness 3/5 leg and arm) Skin: Normal Color, Warm/Dry Lymphatic: No Adenopathy Results/Procedures Lab Patient resulted labs reviewed. FIM Transfers Therapy Code Descriptions/Definitions Functional [place] Measure: 0=Not Assessed/NA 4=Minimal Assistance 1=Total Assistance 5=Supervision or Setup 2=Maximal Assistance 6=Modified [place] 3=Moderate Assistance 7=Complete IndependenceSCALE: Activities may be completed with or without assistive devices. 0-Pednhfarmo-mcyuwzi completes the activity by him/herself with no assistance from a helper. 5-Set-up or Clean-up Assistance-helper sets up or cleans up; patient completes activity. [place] assists only prior to or following the activity. 4-Supervision or Touching Assistance-helper provides verbal cues and/or touching/steadying and/or contact guard assistance as patient completes activity. Assistance may be provided throughout the activity or intermittently. 3-Partial/Moderate Assistance-helper does LESS THAN HALF the effort. [place] lifts, holds or supports trunk or limbs, but provides less than half the effort. 2-Substantial/Maximal Assistance-helper does MORE THAN HALF the effort. [place] lifts or holds trunk or limbs and provides more than half the effort. 0-Dsvjrlauk-ixucin does ALL the effort. Patient does none of the effort to complete the activity. Or, the assistance of 2 or more helpers is required for the patient to complete the activity. If activity was not attempted, code reason: 7-Patient Refused. 9-Not Applicable-not attempted and the patient did not perform the activity before the current illness, exacerbation or injury. 10-Not Attempted due to Environmental Limitations-(lack of equipment, weather restraints, etc.). 88-Not Attempted due to Medical Conditions or Safety Concerns. Roll Left to Right (QC): 5 Sit to Lying (QC): 5 Sit to Stand (QC): 4 Chair/Mgu-tx-Rmfdx Xfer(QC): 3 (mod) Car Transfer (QC): 3 (mod) Gait Training Does the Patient Walk?: Yes Distance: 50ft x2 Walk 10 feet (QC): 5 Walk 50 ft with 2 Turns(QC): 5 Walk 150 ft (QC): 88 Walking 10ft/uneven surface-QC: 88 Gait Persons Needed: 1 Gait Assistive Device: FWW Wheelchair Training Does the Pt Use a Wheelchair?: Yes Wheel 50 ft with 2 turns (QC): 5 Wheel 150 ft (QC): 4 Type of Wheelchair: Manual Stair Training 1 Step (curb) (QC): 88 4 Steps (QC): 88 12 Steps (QC): 88 Balance Picking up an Object (QC): 88 ADL-Treatment Eating (QC): 5 (set up with containers) Oral Hygiene (QC): 7 (Pt declined as he does not have any teeth.) Shower/Bathe Self (QC): 4 (Supervision, pt able to wash/dry all parts seated on SC) Upper Body Dressing (QC): 3 (Pt doffed shirt with increased time, min A donning shirt due to rolling on R side, assist to unroll) Lower Body Dressing (QC): 3 (Min A doffing/donning pants on RLE. Pt able to complete pant hike, min A standing balance, and able to complete LLE) On/Off Footwear (QC): 3 (Pt required assistance holding RLE for doffing. pt able to doff socks using AE. 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 05/03/20 Plan: IRF protocol Monitor closely Supportive care Hope does not leave AMA 05/28/20: Monitor closely Very labile behavior 05/29/20: Monitor closely Meth use has caused labile behavior 05/30/20: CP and dyspnea monitored 05/31/20: Monitor closely Not allowed to leave the unit without staff due to what I suspect as planning to use meth 06/01/20: Monitor closely Continue treatment 06/02/20: Monitor closely Cannot go outside as he is requesting daily due to high risk for using meth 06/03/20: Monitor closely Meth use is causing all med issues and behaviors 06/04/20: Monitor CP Monitor closely 06/05/20: Doing better DC planning 06/06/20: Monitor closely Fall risk (1) CVA (cerebral vascular accident) Status: Acute (2) Methamphetamine abuse Status: Acute (3) HLD (hyperlipidemia) Status: Chronic (4) Carotid stenosis Status: Acute (5) HTN (hypertension) Status: Acute (6) Cannabis abuse Status: Acute (7) Hemiparesis of right dominant side Status: Acute (8) Very heavy cigarette smoker (40 or more per day) Status: Acute (9) Illicit drug use Status: Acute (10) Hypertension (11) COPD (chronic obstructive pulmonary disease) PRUDENCE BECK DO Jun 06, 2020 12:51
[2020-06-06] MEDS: RT-ALBUTEROL/IPRATROPIUM 3 ML (DUONEB) VIAL INH PRN (18:55)
[2020-06-06] MEDS: BACLOFEN 10 MG (LIORESAL) TAB PO PRN (19:51)
[2020-06-06 20:01] VITALS: BP 126/59
[2020-06-06] MEDS: MELATONIN 3 MG TABLET PO PRN (22:48)
[2020-06-07 07:30] VITALS: BP 163/80
[2020-06-07] MEDS: CLOPIDOGREL 75 MG (PLAVIX) TABLET PO SCH (09:31)
[2020-06-07] MEDS: amLODIPine 5 MG (NORVASC) TAB PO SCH (09:31)
[2020-06-07] MEDS: SENNA W/DOCUSATE (SENOKOT S) TABLET PO SCH ×2 (09:31→21:16)
[2020-06-07] MEDS: ENOXAPARIN 40 MG/0.4 ML (LOVENOX) SYR SC SCH (09:31)
[2020-06-07] MEDS: ASPIRIN 81 MG CHEW (CHILDREN'S ASA) PO SCH (09:31)
[2020-06-07] MEDS: polyethylene glycoL POWDER 17 GM (MIRALAX) PACK PO SCH ×2 (09:31→21:20)
[2020-06-07] MEDS: GABAPENTIN 300 MG (NEURONTIN) CAP PO SCH ×3 (09:32→21:17)
[2020-06-07] MEDS: DOCUSATE SODIUM 100 MG (COLACE) CAP PO SCH ×2 (09:32→21:16)
[2020-06-07] MEDS: lisINopril 20 MG (PRINIVIL) TABLET PO SCH (09:34)
[2020-06-07] MEDS: FLUTICASONE NASAL SPRAY (FLONASE) 16 GM BTL NS SCH ×2 (09:35→21:22)
--- NOTE | 2020-06-07 11:55 | PM&R Progress Note ---
Subjective HPI/CC On Admission Date Seen by Provider: Jun 07, 2020 Time Seen by Provider: 12:00 Subjective/Events-last exam 06/07/20: No issues Patient very nice today No cursing No falls 06/06/20: Patient doing well BM+ No pain reported 06/05/20: BM today Doing well Labile moods from meth use hx THC only on UDS BP good no orthostasis 06/04/20: Pt doing pretty well No bowels moving for the last three days BP has some variations 06/03/20: Pt very inappropriate with his responses Police came to his room because visitors that had just seen him that were involved in a crime and then went missing Right lower extremity is very weak Constantly asking to go outside and I know that is to "shoot up" Methamphetamine 06/02/20: Pt making some progress Curses a lot Impaired sleep but he did have some rest last night Constantly wants to go outside and I know that is to be able to smoke meth Very difficult situation 06/01/20: Pt having no new issues Very complex issues because of meth use and behaviors Working hard but likely will need a penitentiary Very difficult situation, social-handy 05/31/20: Patient cursing at his phone about his girlfriend Meth use has changed brain function BM treatment ordered Patient still asking if he can go outside if he has a visitor but I fear he would use meth so I am not approving him of going outside or off unit without staff 05/30/20: Patient had episode of CP last night and dyspnea Cardiology evaluated him today CXR ATX no evidence of sepsis or PNA Meth use hx has caused multiple medical issues 05/29/20: Patient remains stable Labile moods are from meth use hx Asking if he could go outside with his friend tomorrow and I stated likely not due to his meth use and could take [place] at that time 05/28/20: Labile behavior h/o meth use has been a factor in this behavior Obsessed about where his girlfriend is Lungs are clear 05/27/20: Pt doing a lot better Slept in today Working with therapy Right-sided weakness is significant Will work through things as they come Hopefully wont leave AMA this time Review of Systems General: Fatigue Neurological: Weakness, Incoordination Objective Exam Vital Signs Vital Signs Date Time Temp Pulse Resp B/P (MAP) Pulse Ox O2 Delivery O2 Flow Rate FiO2 06/07/20 19:26 36.8 68 20 109/66 (80) 94 Room Air Capillary Refill : General Appearance: No Apparent Distress, WD/WN, Chronically ill, Thin HEENT: PERRL/EOMI, Normal ENT Inspection, Pharynx Normal Neck: Full Range of Motion, Normal Inspection, Non Tender, Supple, Carotid Bruit Respiratory: Chest Non Tender, Lungs Clear, Normal Breath Sounds, No Accessory Muscle Use, No Respiratory Distress Cardiovascular: Regular Rate, Rhythm, No Edema, No Gallop, No JVD, No Murmur, Normal Peripheral Pulses Gastrointestinal: Normal Bowel Sounds, No Organomegaly, No Pulsatile Mass, Non Tender, Soft Back: Normal Inspection, No CVA Tenderness, No Vertebral Tenderness Extremity: Normal Capillary Refill, Normal Inspection, Normal Range of Motion, Non Tender, No Calf Tenderness, No Pedal Edema Neurologic/Psychiatric: Alert, Oriented x3, Normal Mood/Affect, Motor Weakness (right sided weakness 3/5 leg and arm) Skin: Normal Color, Warm/Dry Lymphatic: No Adenopathy Results/Procedures Lab Patient resulted labs reviewed. FIM Transfers Therapy Code Descriptions/Definitions Functional [place] Measure: 0=Not Assessed/NA 4=Minimal Assistance 1=Total Assistance 5=Supervision or Setup 2=Maximal Assistance 6=Modified [place] 3=Moderate Assistance 7=Complete IndependenceSCALE: Activities may be completed with or without assistive devices. 0-Odcnkaiodd-dawpera completes the activity by him/herself with no assistance from a helper. 5-Set-up or Clean-up Assistance-helper sets up or cleans up; patient completes activity. [place] assists only prior to or following the activity. 4-Supervision or Touching Assistance-helper provides verbal cues and/or touching/steadying and/or contact guard assistance as patient completes activity. Assistance may be provided throughout the activity or intermittently. 3-Partial/Moderate Assistance-helper does LESS THAN HALF the effort. [place] lifts, holds or supports trunk or limbs, but provides less than half the effort. 2-Substantial/Maximal Assistance-helper does MORE THAN HALF the effort. [place] lifts or holds trunk or limbs and provides more than half the effort. 9-Jfgmywtay-zwoojd does ALL the effort. Patient does none of the effort to complete the activity. Or, the assistance of 2 or more helpers is required for the patient to complete the activity. If activity was not attempted, code reason: 7-Patient Refused. 9-Not Applicable-not attempted and the patient did not perform the activity before the current illness, exacerbation or injury. 10-Not Attempted due to Environmental Limitations-(lack of equipment, weather restraints, etc.). 88-Not Attempted due to Medical Conditions or Safety Concerns. Roll Left to Right (QC): 5 Sit to Lying (QC): 5 Sit to Stand (QC): 4 Chair/Jls-ba-Asbhk Xfer(QC): 3 (mod) Car Transfer (QC): 3 (mod) Gait Training Does the Patient Walk?: Yes Distance: 50ft x2 Walk 10 feet (QC): 5 Walk 50 ft with 2 Turns(QC): 5 Walk 150 ft (QC): 88 Walking 10ft/uneven surface-QC: 88 Gait Persons Needed: 1 Gait Assistive Device: FWW Wheelchair Training Does the Pt Use a Wheelchair?: Yes Wheel 50 ft with 2 turns (QC): 5 Wheel 150 ft (QC): 4 Type of Wheelchair: Manual Stair Training 1 Step (curb) (QC): 88 4 Steps (QC): 88 12 Steps (QC): 88 Balance Picking up an Object (QC): 88 ADL-Treatment Eating (QC): 5 (set up with containers) Oral Hygiene (QC): 7 (Pt declined as he does not have any teeth.) Shower/Bathe Self (QC): 4 (Supervision, pt able to wash/dry all parts seated on SC) Upper Body Dressing (QC): 3 (Pt doffed shirt with increased time, min A donning shirt due to rolling on R side, assist to unroll) Lower Body Dressing (QC): 3 (Min A doffing/donning pants on RLE. Pt able to complete pant hike, min A standing balance, and able to complete LLE) On/Off Footwear (QC): 3 (Pt required assistance holding RLE for doffing. pt able to doff socks using AE. 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 05/03/20 Plan: IRF protocol Monitor closely Supportive care Hope does not leave AMA 05/28/20: Monitor closely Very labile behavior 05/29/20: Monitor closely Meth use has caused labile behavior 05/30/20: CP and dyspnea monitored 05/31/20: Monitor closely Not allowed to leave the unit without staff due to what I suspect as planning to use meth 06/01/20: Monitor closely Continue treatment 06/02/20: Monitor closely Cannot go outside as he is requesting daily due to high risk for using meth 06/03/20: Monitor closely Meth use is causing all med issues and behaviors 06/04/20: Monitor CP Monitor closely 06/05/20: Doing better DC planning 06/06/20: Monitor closely Fall risk 06/07/20: Monitor closely Check labs in am (1) CVA (cerebral vascular accident) Status: Acute (2) Methamphetamine abuse Status: Acute (3) HLD (hyperlipidemia) Status: Chronic (4) Carotid stenosis Status: Acute (5) HTN (hypertension) Status: Acute (6) Cannabis abuse Status: Acute (7) Hemiparesis of right dominant side Status: Acute (8) Very heavy cigarette smoker (40 or more per day) Status: Acute (9) Illicit drug use Status: Acute (10) Hypertension (11) COPD (chronic obstructive pulmonary disease) PRUDENCE BECK DO Jun 07, 2020 11:55
[2020-06-07] MEDS: UMECLIDINIUM BROMIDE (INCRUSE ELLIPTA) 7'S IH SCH (13:39)
[2020-06-07] MEDS: BACLOFEN 10 MG (LIORESAL) TAB PO PRN (13:39)
[2020-06-07] MEDS: RT-ALBUTEROL/IPRATROPIUM 3 ML (DUONEB) VIAL INH PRN (18:02)
[2020-06-07 19:26] VITALS: BP 109/66
[2020-06-07] MEDS: ALPRAZolam 0.25 MG (XANAX) TAB PO PRN (21:16)
[2020-06-07] MEDS: MELATONIN 3 MG TABLET PO PRN (21:17)
[2020-06-08 05:12] LABS: BASOPHILS # (AUTO) 0.1 10^3/uL (0.0-0.1); BASOPHILS % (AUTO) 1 % (0-10); EOSINOPHILS # (AUTO) 1.4 10^3/uL (0.0-0.3); EOSINOPHILS % (AUTO) 7 % (0-10); HEMATOCRIT 40 % (40-54); HEMOGLOBIN 12.5 g/dL (13.3-17.7); LYMPHOCYTES # (AUTO) 2.5 10^3/uL (1.0-4.0); LYMPHOCYTES % (AUTO) 13 % (12-44); MEAN CORPUSCULAR HEMOGLOBIN 28 pg (25-34); MEAN CORPUSCULAR HGB CONC 31 g/dL (32-36); MEAN CORPUSCULAR VOLUME 91 fL (80-99); MONOCYTES # (AUTO) 1.3 10^3/uL (0.0-1.0); MONOCYTES % (AUTO) 7 % (0-12); NEUTROPHILS # (AUTO) 13.6 10^3/uL (1.8-7.8); NEUTROPHILS % (AUTO) 72 % (42-75); PLATELET COUNT 280 10^3/uL (130-400); WHITE BLOOD COUNT 18.9 10^3/uL (4.3-11.0)
[2020-06-08 05:18] LABS: CHLORIDE 102 MMOL/L (98-107); SODIUM 138 MMOL/L (135-145)
[2020-06-08 05:20] LABS: CALCIUM 9.2 MG/DL (8.5-10.1)
[2020-06-08 05:21] LABS: GLUCOSE 139 MG/DL (70-105); TOTAL PROTEIN 6.5 GM/DL (6.4-8.2)
[2020-06-08 05:22] LABS: BILIRUBIN,TOTAL 0.4 MG/DL (0.1-1.0); CARBON DIOXIDE 26 MMOL/L (21-32)
[2020-06-08 05:24] LABS: ALKALINE PHOSPHATASE 73 U/L (40-136); CREATININE SERUM 0.86 MG/DL (0.60-1.30); GFR ESTIMATED > 60
[2020-06-08 05:26] LABS: BUN/CREATININE RATIO 16
[2020-06-08 05:27] LABS: ALANINE AMINOTRANSFERASE 29 U/L (0-55); BAND NEUTROPHILS 1 %; EOSINOPHILS % (MANUAL) 14 %; LYMPHOCYTES % (MANUAL) 9 %; MONOCYTES % (MANUAL) 8 %; NEUTROPHILS % (MANUAL) 68 %; RBC MORPH NORMAL
[2020-06-08 08:00] VITALS: BP 89/58
--- NOTE | 2020-06-08 08:37 | PM&R Progress Note ---
Subjective HPI/CC On Admission Date Seen by Provider: Jun 08, 2020 Time Seen by Provider: 08:45 Subjective/Events-last exam 06/08/20: WBC 18.9 but Procalcitonin normal CXR chronic changes Xanax used to help him calm down He has very labile moods from meth use prison placement pending 06/07/20: No issues Patient very nice today No cursing No falls 06/06/20: Patient doing well BM+ No pain reported 06/05/20: BM today Doing well Labile moods from meth use hx THC only on UDS BP good no orthostasis 06/04/20: Pt doing pretty well No bowels moving for the last three days BP has some variations 06/03/20: Pt very inappropriate with his responses Police came to his room because visitors that had just seen him that were involved in a crime and then went missing Right lower extremity is very weak Constantly asking to go outside and I know that is to "shoot up" Methamphetamine 06/02/20: Pt making some progress Curses a lot Impaired sleep but he did have some rest last night Constantly wants to go outside and I know that is to be able to smoke meth Very difficult situation 06/01/20: Pt having no new issues Very complex issues because of meth use and behaviors Working hard but likely will need a assisted Very difficult situation, social-handy 05/31/20: Patient cursing at his phone about his girlfriend Meth use has changed brain function BM treatment ordered Patient still asking if he can go outside if he has a visitor but I fear he would use meth so I am not approving him of going outside or off unit without staff 05/30/20: Patient had episode of CP last night and dyspnea Cardiology evaluated him today CXR ATX no evidence of sepsis or PNA Meth use hx has caused multiple medical issues 05/29/20: Patient remains stable Labile moods are from meth use hx Asking if he could go outside with his friend tomorrow and I stated likely not due to his meth use and could take [place] at that time 05/28/20: Labile behavior h/o meth use has been a factor in this behavior Obsessed about where his girlfriend is Lungs are clear 05/27/20: Pt doing a lot better Slept in today Working with therapy Right-sided weakness is significant Will work through things as they come Hopefully wont leave AMA this time Review of Systems General: Fatigue Neurological: Weakness Objective Exam Vital Signs Vital Signs Date Time Temp Pulse Resp B/P (MAP) Pulse Ox O2 Delivery O2 Flow Rate FiO2 06/08/20 21:00 94 Room Air 06/08/20 20:06 36.6 78 18 151/58 (89) Capillary Refill : General Appearance: No Apparent Distress, WD/WN, Chronically ill, Thin HEENT: PERRL/EOMI, Normal ENT Inspection, Pharynx Normal Neck: Full Range of Motion, Normal Inspection, Non Tender, Supple, Carotid Bruit Respiratory: Chest Non Tender, Lungs Clear, Normal Breath Sounds, No Accessory Muscle Use, No Respiratory Distress Cardiovascular: Regular Rate, Rhythm, No Edema, No Gallop, No JVD, No Murmur, Normal Peripheral Pulses Gastrointestinal: Normal Bowel Sounds, No Organomegaly, No Pulsatile Mass, Non Tender, Soft Back: Normal Inspection, No CVA Tenderness, No Vertebral Tenderness Extremity: Normal Capillary Refill, Normal Inspection, Normal Range of Motion, Non Tender, No Calf Tenderness, No Pedal Edema Neurologic/Psychiatric: Alert, Oriented x3, Normal Mood/Affect, Motor Weakness (right sided weakness 3/5 leg and arm) Skin: Normal Color, Warm/Dry Lymphatic: No Adenopathy Results/Procedures Lab Patient resulted labs reviewed. FIM Transfers Therapy Code Descriptions/Definitions Functional [place] Measure: 0=Not Assessed/NA 4=Minimal Assistance 1=Total Assistance 5=Supervision or Setup 2=Maximal Assistance 6=Modified [place] 3=Moderate Assistance 7=Complete IndependenceSCALE: Activities may be completed with or without assistive devices. 8-Akxpigchtf-yoaravf completes the activity by him/herself with no assistance from a helper. 5-Set-up or Clean-up Assistance-helper sets up or cleans up; patient completes activity. [place] assists only prior to or following the activity. 4-Supervision or Touching Assistance-helper provides verbal cues and/or touching/steadying and/or contact guard assistance as patient completes activity. Assistance may be provided throughout the activity or intermittently. 3-Partial/Moderate Assistance-helper does LESS THAN HALF the effort. [place] lifts, holds or supports trunk or limbs, but provides less than half the effort. 2-Substantial/Maximal Assistance-helper does MORE THAN HALF the effort. [place] lifts or holds trunk or limbs and provides more than half the effort. 7-Xwngmbzxz-kelfsu does ALL the effort. Patient does none of the effort to complete the activity. Or, the assistance of 2 or more helpers is required for the patient to complete the activity. If activity was not attempted, code reason: 7-Patient Refused. 9-Not Applicable-not attempted and the patient did not perform the activity before the current illness, exacerbation or injury. 10-Not Attempted due to Environmental Limitations-(lack of equipment, weather restraints, etc.). 88-Not Attempted due to Medical Conditions or Safety Concerns. Roll Left to Right (QC): 5 Sit to Lying (QC): 5 Sit to Stand (QC): 4 Chair/Vht-lq-Xpjvv Xfer(QC): 3 (mod) Car Transfer (QC): 3 (mod) Gait Training Does the Patient Walk?: Yes Distance: 50ft x2 Walk 10 feet (QC): 5 Walk 50 ft with 2 Turns(QC): 5 Walk 150 ft (QC): 88 Walking 10ft/uneven surface-QC: 88 Gait Persons Needed: 1 Gait Assistive Device: FWW Wheelchair Training Does the Pt Use a Wheelchair?: Yes Wheel 50 ft with 2 turns (QC): 5 Wheel 150 ft (QC): 4 Type of Wheelchair: Manual Stair Training 1 Step (curb) (QC): 88 4 Steps (QC): 88 12 Steps (QC): 88 Balance Picking up an Object (QC): 88 ADL-Treatment Eating (QC): 5 (set up with containers) Oral Hygiene (QC): 7 (Pt declined as he does not have any teeth.) Shower/Bathe Self (QC): 4 (Supervision, pt able to wash/dry all parts seated on SC) Upper Body Dressing (QC): 3 (Pt doffed shirt with increased time, min A donning shirt due to rolling on R side, assist to unroll) Lower Body Dressing (QC): 3 (Min A doffing/donning pants on RLE. Pt able to complete pant hike, min A standing balance, and able to complete LLE) On/Off Footwear (QC): 3 (Pt required assistance holding RLE for doffing. pt able to doff socks using AE. 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 05/03/20 Plan: IRF protocol Monitor closely Supportive care Hope does not leave AMA 05/28/20: Monitor closely Very labile behavior 05/29/20: Monitor closely Meth use has caused labile behavior 05/30/20: CP and dyspnea monitored 05/31/20: Monitor closely Not allowed to leave the unit without staff due to what I suspect as planning to use meth 06/01/20: Monitor closely Continue treatment 06/02/20: Monitor closely Cannot go outside as he is requesting daily due to high risk for using meth 06/03/20: Monitor closely Meth use is causing all med issues and behaviors 06/04/20: Monitor CP Monitor closely 06/05/20: Doing better DC planning 06/06/20: Monitor closely Fall risk 06/07/20: Monitor closely Check labs in am 06/08/20: Monitor BP Doing better NH at DC (1) CVA (cerebral vascular accident) Status: Acute (2) Methamphetamine abuse Status: Acute (3) HLD (hyperlipidemia) Status: Chronic (4) Carotid stenosis Status: Acute (5) HTN (hypertension) Status: Acute (6) Cannabis abuse Status: Acute (7) Hemiparesis of right dominant side Status: Acute (8) Very heavy cigarette smoker (40 or more per day) Status: Acute (9) Illicit drug use Status: Acute (10) Hypertension (11) COPD (chronic obstructive pulmonary disease) PRUDENCE BECK DO Jun 08, 2020 08:37
--- NOTE | 2020-06-08 10:06 | Occupational Ther Daily Note ---
OT Current Status-Daily Note Subjective Pt laying in bed, states he would like to rest, but agreeable to OT tx with moderate encouragement. Mental Status/Objective Patient Orientation: Person, Place, Situation ADL-Treatment Therapy Code Descriptions/Definitions Functional [place] Measure: 0=Not Assessed/NA 4=Minimal Assistance 1=Total Assistance 5=Supervision or Setup 2=Maximal Assistance 6=Modified [place] 3=Moderate Assistance 7=Complete IndependenceSCALE: Activities may be completed with or without assistive devices. 6-Utuylynrmq-qfaihqm completes the activity by him/herself with no assistance from a helper. 5-Set-up or Clean-up Assistance-helper sets up or cleans up; patient completes activity. [place] assists only prior to or following the activity. 4-Supervision or Touching Assistance-helper provides verbal cues and/or touching/steadying and/or contact guard assistance as patient completes activity. Assistance may be provided throughout the activity or intermittently. 3-Partial/Moderate Assistance-helper does LESS THAN HALF the effort. [place] lifts, holds or supports trunk or limbs, but provides less than half the effort. 2-Substantial/Maximal Assistance-helper does MORE THAN HALF the effort. [place] lifts or holds trunk or limbs and provides more than half the effort. 9-Rgqgemygc-vtgqyk does ALL the effort. Patient does none of the effort to complete the activity. Or, the assistance of 2 or more helpers is required for the patient to complete the activity. If activity was not attempted, code reason: 7-Patient Refused. 9-Not Applicable-not attempted and the patient did not perform the activity before the current illness, exacerbation or injury. 10-Not Attempted due to Environmental Limitations-(lack of equipment, weather restraints, etc.). 88-Not Attempted due to Medical Conditions or Safety Concerns. Toileting Hygiene (QC): 3 (Pt completed clothing management, min A standing balance. Assist to complete hygiene after BM.) Toilet Transfer (QC): 3 (Min A on/off toilet using GBs.) Other Treatment [id number]: BP 110/66. Pt laying in bed, transferred supine to sit EOB with SBA. SPT to w/c on L side, min A. Pt taken into bathroom where he transferred to toilet using GBs, min A. He completed toileting, then transferred back to w/c, SPT using GBS. Pt self-propelled w/c to therapy gym. In order to increase BUE strength and activity tolerance, as well as increase bilateral integration with tasks, pt completed arm bike, x15 mins, min resistance. Pt took rest breaks as needed. [id number] OT/PT cotreat due to skill of 2 clinicians required which a diesel truck technician could not perform in order to coordinate UE/LEs with tasks, decrease fall risk, and due to pt's limitations in strength, activity tolerance, mobility, and transfers. OT focused on UE placement, cues for sequencing and safety, PT focused on LE placement, gross overall movements, and transfers. In order to focus on higher level balance tasks, and increase weight bearing through RUE, pt stood at parallel bars kicking a ball back and forth with OT, PT focused on balance. Pt first completed task with RLE, then LLE, with a seated rest break in between. Post tx, pt seated in w/c in gym with PT for continued tx, all needs met. Education OT Patient Education: Correct positioning, Modified ADL techniques, Progress toward Goal/Update tx plan, Purpose of tx/functional activities Teaching Recipient: Patient Teaching Methods: Discussion Response to Teaching: Verbalize Understanding OT Short Term Goals Short Term Goals Time Frame: Jun 02, 2020 Eatin Oral hygiene: 88 Toileting hygiene: 3 Shower/bathe self: 3 Upper body dressin Lower body dressin Putting on/taking off footwear: 3 OT Fpc Goals Dining Car Waiter/Waitress Goals Time Frame: Jun 16, 2020 Eating (QC): 6 Oral Hygiene (QC): 88 Toileting Hygiene (QC): 6 Shower/Bathe Self (QC): 4 Upper Body Dressing (QC): 6 Lower Body Dressing (QC): 6 On/Off Footwear (QC): 6 Additional Goals: 1-Demonstrate ADL Tasks, 2-Verbalize Understanding, 3- ImproveStrength/Dutch 1=Demonstrate adherence to instructed precautions during ADL tasks. 2=Patient will verbalize/demonstrate understanding of assistive devices/modifications for ADL. 3=Patient will improve strength/tolerance for activity to enable patient to perform ADL's. OT Education/Plan Problem List/Assessment Assessment: Decreased Activ Tolerance, Decreased UE Strength, Impaired Funct Balance, Impaired I ADL's, Impaired Self-Care Skills, Restricted Funct UE ROM Discharge Recommendations Plan/Recommendations: Continue POC Treatment Plan/Plan of Care Patient would benefit from OT for education, treatment and training to promote independence in ADL's, mobility, safety and/or upper extremity function for ADL's. Plan of Care: ADL Retraining, Functional Mobility, Group Exercise/Act as Ind, UE Funct Exercise/Act Treatment Duration: Jun 16, 2020 Frequency: At least 5 of 7 days/Wk (IRF) Estimated Hrs Per Day: 1.5 hours per day Agreement: Yes Rehab Potential: Fair Time/GCodes Start Time: 09:30 Stop Time: 10:30 Total Time Billed (hr/min): 60 Billed Treatment Time 1, ADL 2 (25'), EX (20'), FA (15') MILAD HENDRICKSON OT Jun 08, 2020 10:06
[2020-06-08] MEDS: GABAPENTIN 300 MG (NEURONTIN) CAP PO SCH ×3 (10:27→21:20)
[2020-06-08] MEDS: amLODIPine 5 MG (NORVASC) TAB PO SCH ×2 (10:28→10:47)
[2020-06-08] MEDS: ASPIRIN 81 MG CHEW (CHILDREN'S ASA) PO SCH (10:28)
[2020-06-08] MEDS: lisINopril 20 MG (PRINIVIL) TABLET PO SCH ×2 (10:28→10:47)
[2020-06-08] MEDS: CLOPIDOGREL 75 MG (PLAVIX) TABLET PO SCH (10:28)
[2020-06-08] MEDS: ENOXAPARIN 40 MG/0.4 ML (LOVENOX) SYR SC SCH (10:29)
[2020-06-08] MEDS: polyethylene glycoL POWDER 17 GM (MIRALAX) PACK PO SCH ×2 (10:29→21:22)
[2020-06-08] MEDS: SENNA W/DOCUSATE (SENOKOT S) TABLET PO SCH ×2 (10:29→21:20)
[2020-06-08] MEDS: DOCUSATE SODIUM 100 MG (COLACE) CAP PO SCH ×2 (10:29→21:20)
[2020-06-08 10:30] VITALS: BP 106/66
[2020-06-08] MEDS: FLUTICASONE NASAL SPRAY (FLONASE) 16 GM BTL NS SCH ×2 (10:30→21:23)
--- NOTE | 2020-06-08 10:49 | Physical Therapy Daily Note ---
PT Daily Note-Current Subjective Patient upright in gym pre tx with OT. Patient does not report pain, consents to therapy. Appearance Patient supine in bed, with call button within reach, tray table nearby, all needs met. Mental Status Patient Orientation: Person, Place, Time, Situation Transfers SCALE: Activities may be completed with or without assistive devices. 3-Fdgyorddvs-jfnktin completes the activity by him/herself with no assistance from a helper. 5-Set-up or Clean-up Assistance-helper sets up or cleans up; patient completes activity. [place] assists only prior to or following the activity. 4-Supervision or Touching Assistance-helper provides verbal cues and/or touching/steadying and/or contact guard assistance as patient completes activity. Assistance may be provided throughout the activity or intermittently. 3-Partial/Moderate Assistance-helper does LESS THAN HALF the effort. [place] lifts, holds or supports trunk or limbs, but provides less than half the effort. 2-Substantial/Maximal Assistance-helper does MORE THAN HALF the effort. [place] lifts or holds trunk or limbs and provides more than half the effort. 1-Kdsxngrqc-czwtgh does ALL the effort. Patient does none of the effort to complete the activity. Or, the assistance of 2 or more helpers is required for the patient to complete the activity. If activity was not attempted, code reason: 7-Patient Refused. 9-Not Applicable-not attempted and the patient did not perform the activity before the current illness, exacerbation or injury. 10-Not Attempted due to Environmental Limitations-(lack of equipment, weather restraints, etc.). 88-Not Attempted due to Medical Conditions or Safety Concerns. Sit to Stand (QC): 4 Chair/Bja-zh-Edprl Xfer(QC): 3 (mod) CGA Weight Bearing Full Weight Bearing Full Weight Bearing Exercises Seated Therapy Exercises: Ankle pumps (L only), Long arc quads, Hip flexion (R hip flexion self-assisted movement) Seated Reps: 20 NuStep Minutes: 15 NuStep Workload: 5 Treatments Co-treated with OT secondary to patient decreased balance with UE and LE impairments and fall risk with activity. PT focused on weight shifts and balance while OT rolled ball and had patient use both LE's to kick 5 min x2. Assessment Current Status: Poor Progress Patient reported dizziness following OT/PT co-treat. Measured BP to be 82/48. PT plan changed to light exercise on bike and seated ther ex secondary to low BP/dizziness reports. With soccer ball kicks, patient demonstrated good LE coordination and hip flexor activation with knee extension to kick ball. More difficult for patient to weight shift over to R with L LE kicking, R LE has tendency to buckle. Patient able to perform all 20 sets of R LAQ, with rest break jail through repetitions. PT Short Term Goals Short Term Goals Time Frame: Jun 02, 2020 Roll Left & Right: 4 (SBA) Sit to lyin (SBA) Lying to sitting on side of be: 4 (SBA) Sit to stand: 4 (CGA) Chair/nil-af-ibves transfer: 4 (min) Toilet transfer: 4 (min) Car transfer: 4 (min) Walk 10 feet: 4 (min) Walk 50 feet with two turns: 4 (min) 1 step (curb): 4 (CGA) Wheel 50ft w/2 turns: 4 Wheel 150 feet: 4 PT Longterm Goals Longterm Goals PT Longterm Goals Time Frame: Jun 16, 2020 Roll Left & Right (QC): 5 Sit to Lying (QC): 5 Lying-Sitting on Side/Bed(QC): 5 Sit to Stand (QC): 5 Chair/Fds-dy-Jeaxq Xfer(QC): 4 (CGA) Toilet Transfer (QC): 4 (CGA) Car Transfer (QC): 4 (CGA) Does the Patient Walk: Yes Walk 10 feet (QC): 4 (CGA) Walk 50ft with 2 Turns (QC): 4 (CGA) Walk 150 ft (QC): 4 (CGA) Walking 10ft on Uneven Surface: 4 (CGA) 1 Step (curb) (QC): 4 (CGA) 4 Steps (QC): 4 (CGA) 12 Steps (QC): 88 Picking up an Object (QC): 4 (CGA) Does the Pt use WC or Scooter?: Yes Wheel 50 feet with 2 turns (QC: 6 Type: Manual Wheel 150 feet: 6 Type: Manual PT Plan Problem List Problem List: Activity Tolerance, Functional Strength, Safety, Balance, Gait, Transfer, Bed Mobility, ROM Treatment/Plan Treatment Plan: Continue Plan of Care Treatment Plan: Bed Mobility, Education, Functional Activity [place], Functional Strength, Group Therapy, Gait, Safety, Therapeutic Exercise, Transfers Treatment Duration: Jun 16, 2020 Frequency: At least 5 of 7 days/Wk (IRF) Estimated Hrs Per Day: 1.5 hours per day Patient and/or Family Agrees t: Yes Safety Risks/Education Patient Education: Gait Training, Transfer Techniques, Correct Positioning, Safety Issues Teaching Recipient: Patient Teaching Methods: Demonstration, Discussion Response to Teaching: Verbalize Understanding, Return Demonstration Time/GCodes Time In: 1015 Time Out: 1115 Total Billed Treatment Time: 60 Total Billed Treatment 1 visit: EX x3: 45' FA: 15' IAN PETTY PT Jun 08, 2020 10:49
[2020-06-08] MEDS: UMECLIDINIUM BROMIDE (INCRUSE ELLIPTA) 7'S IH SCH (11:36)
[2020-06-08] MEDS: RT-ALBUTEROL/IPRATROPIUM 3 ML (DUONEB) VIAL INH SCH ×2 (11:36→18:34)
--- NOTE | 2020-06-08 13:41 | Occupational Ther Daily Note ---
OT Current Status-Daily Note Subjective Pt alert, lying in bed. Pt agrees to therapy. No c/o pain at this time. Mental Status/Objective Patient Orientation: Person, Place, Time, Situation ADL-Treatment Therapy Code Descriptions/Definitions Functional [place] Measure: 0=Not Assessed/NA 4=Minimal Assistance 1=Total Assistance 5=Supervision or Setup 2=Maximal Assistance 6=Modified [place] 3=Moderate Assistance 7=Complete IndependenceSCALE: Activities may be completed with or without assistive devices. 5-Ygesuemkmr-cejkhlp completes the activity by him/herself with no assistance from a helper. 5-Set-up or Clean-up Assistance-helper sets up or cleans up; patient completes activity. [place] assists only prior to or following the activity. 4-Supervision or Touching Assistance-helper provides verbal cues and/or touching/steadying and/or contact guard assistance as patient completes activity. Assistance may be provided throughout the activity or intermittently. 3-Partial/Moderate Assistance-helper does LESS THAN HALF the effort. [place] lifts, holds or supports trunk or limbs, but provides less than half the effort. 2-Substantial/Maximal Assistance-helper does MORE THAN HALF the effort. [place] lifts or holds trunk or limbs and provides more than half the effort. 3-Qxsrmzcys-ylkjdm does ALL the effort. Patient does none of the effort to complete the activity. Or, the assistance of 2 or more helpers is required for the patient to complete the activity. If activity was not attempted, code reason: 7-Patient Refused. 9-Not Applicable-not attempted and the patient did not perform the activity before the current illness, exacerbation or injury. 10-Not Attempted due to Environmental Limitations-(lack of equipment, weather restraints, etc.). 88-Not Attempted due to Medical Conditions or Safety Concerns. Other Treatment [id number] (BP112/69)OT/PT cotreat due to skill of 2 clinicians required which a veterans rehabilitation counselor could not perform in order to coordinate UE/LEs with tasks, decrease fall risk, and due to pt's limitations in strength, activity tolerance, mobility, and transfers. OT focused on UE placement, cues for sequencing and safety, PT focused on LE placement, gross overall movements, and transfers. Pt requested to use toilet. Ambulated using FWW to bathroom with 2 LOB, assist needed to regain balance. Pt hiked pants over L hip and assist to hike over R hip. Pt then ambulated using FWW in [facility] [place] (see PT note for distance). FWW R handle built up to increase appeals assistant and wrist stabilization. After session, pt lying in bed with call light/phone in reach. All needs met in room. OT Short Term Goals Short Term Goals Time Frame: Jun 02, 2020 Eatin Oral hygiene: 88 Toileting hygiene: 3 Shower/bathe self: 3 Upper body dressin Lower body dressin Putting on/taking off footwear: 3 OT Longterm Goals Longterm Goals Time Frame: Jun 16, 2020 Eating (QC): 6 Oral Hygiene (QC): 88 Toileting Hygiene (QC): 6 Shower/Bathe Self (QC): 4 Upper Body Dressing (QC): 6 Lower Body Dressing (QC): 6 On/Off Footwear (QC): 6 Additional Goals: 1-Demonstrate ADL Tasks, 2-Verbalize Understanding, 3- ImproveStrength/Dutch 1=Demonstrate adherence to instructed precautions during ADL tasks. 2=Patient will verbalize/demonstrate understanding of assistive devices/modifications for ADL. 3=Patient will improve strength/tolerance for activity to enable patient to perform ADL's. OT Education/Plan Problem List/Assessment Assessment: Decreased Activ Tolerance, Decreased Safety Aware, Decreased UE Strength, Impaired Self-Care Skills Discharge Recommendations Plan/Recommendations: Continue POC Treatment Plan/Plan of Care Patient would benefit from OT for education, treatment and training to promote independence in ADL's, mobility, safety and/or upper extremity function for ADL's. Plan of Care: ADL Retraining, Functional Mobility, Group Exercise/Act as Ind, UE Funct Exercise/Act Treatment Duration: Jun 16, 2020 Frequency: At least 5 of 7 days/Wk (IRF) Estimated Hrs Per Day: 1.5 hours per day Agreement: Yes Rehab Potential: Fair Time/GCodes Start Time: 13:00 Stop Time: 13:30 Total Time Billed (hr/min): 30 Billed Treatment Time 1 visit-FA 2 (30 min) co-treat with PT [id number] CIPRIANO CASTRO Jun 08, 2020 13:41
--- NOTE | 2020-06-08 13:59 | Physical Therapy Daily Note ---
PT Daily Note-Current Subjective Patient reports no pain pre tx, was laying supine in bed, and consents to treatment. Blood pressure has improved to 112/69. Appearance Patient supine in bed post tx, with call button and tray within reach, all needs met. Mental Status Patient Orientation: Person, Place, Time, Situation Transfers SCALE: Activities may be completed with or without assistive devices. 8-Kmbjqbgbxs-rtgvzjc completes the activity by him/herself with no assistance from a helper. 5-Set-up or Clean-up Assistance-helper sets up or cleans up; patient completes activity. [place] assists only prior to or following the activity. 4-Supervision or Touching Assistance-helper provides verbal cues and/or touching/steadying and/or contact guard assistance as patient completes activity. Assistance may be provided throughout the activity or intermittently. 3-Partial/Moderate Assistance-helper does LESS THAN HALF the effort. [place] lifts, holds or supports trunk or limbs, but provides less than half the effort. 2-Substantial/Maximal Assistance-helper does MORE THAN HALF the effort. [place] lifts or holds trunk or limbs and provides more than half the effort. 0-Janqhdpsb-sbhjje does ALL the effort. Patient does none of the effort to complete the activity. Or, the assistance of 2 or more helpers is required for the patient to complete the activity. If activity was not attempted, code reason: 7-Patient Refused. 9-Not Applicable-not attempted and the patient did not perform the activity before the current illness, exacerbation or injury. 10-Not Attempted due to Environmental Limitations-(lack of equipment, weather restraints, etc.). 88-Not Attempted due to Medical Conditions or Safety Concerns. Roll Left & Right (QC): 6 Lying to Sitting/Side of Bed(Q: 6 Sit to Stand (QC): 3 (mod) Toilet Transfer (QC): 3 (mod) Patient has to self-assist movement of legs with bed mobility, but is able to do so independently. Patient ranges from mod assist to CGA with sit <-> stand transfers, is inconsistent with level of assistance needed. Patient demonstrated 2 LOB with toilet transfer that he could not independently recover from without assistance. Weight Bearing Full Weight Bearing Full Weight Bearing Gait Training Does the Patient Walk?: Yes Distance: 40', 80', 120' Walk 10 feet (QC): 4 Walk 50 ft with 2 Turns(QC): 4 Walk 150 ft (QC): 4 Gait Assistive Device: FWW CGA. Patient is inconsistent with gait pattern, last 120' of ambulation patient was able to demonstrate better gait pattern with increased speed and occasional reciprocal gait pattern. Patient continues to demonstrate knee buckling intermittently during ambulation. Treatments Co-treated with OT secondary to patient fall risk and decreased functional mobility. OT focused on ADLs and hand positioning with walker to assist with patient wrist pain reports. PT focused on transfers and gait training to promote functional endurance with mobility. Assessment Current Status: Fair Progress Inconsistency with level of assistance required with transfers PT Short Term Goals Short Term Goals Time Frame: Jun 02, 2020 Roll Left & Right: 4 (SBA) Sit to lyin (SBA) Lying to sitting on side of be: 4 (SBA) Sit to stand: 4 (CGA) Chair/bnd-zw-jqldv transfer: 4 (min) Toilet transfer: 4 (min) Car transfer: 4 (min) Walk 10 feet: 4 (min) Walk 50 feet with two turns: 4 (min) 1 step (curb): 4 (CGA) Wheel 50ft w/2 turns: 4 Wheel 150 feet: 4 PT Branch Lending Manager Goals Mcc Goals PT Branch Lending Manager Goals Time Frame: Jun 16, 2020 Roll Left & Right (QC): 5 Sit to Lying (QC): 5 Lying-Sitting on Side/Bed(QC): 5 Sit to Stand (QC): 5 Chair/Ogx-jx-Qgjid Xfer(QC): 4 (CGA) Toilet Transfer (QC): 4 (CGA) Car Transfer (QC): 4 (CGA) Does the Patient Walk: Yes Walk 10 feet (QC): 4 (CGA) Walk 50ft with 2 Turns (QC): 4 (CGA) Walk 150 ft (QC): 4 (CGA) Walking 10ft on Uneven Surface: 4 (CGA) 1 Step (curb) (QC): 4 (CGA) 4 Steps (QC): 4 (CGA) 12 Steps (QC): 88 Picking up an Object (QC): 4 (CGA) Does the Pt use WC or Scooter?: Yes Wheel 50 feet with 2 turns (QC: 6 Type: Manual Wheel 150 feet: 6 Type: Manual PT Plan Problem List Problem List: Activity Tolerance, Functional Strength, Safety, Balance, Gait, Transfer, Bed Mobility, ROM Treatment/Plan Treatment Plan: Continue Plan of Care Treatment Plan: Bed Mobility, Education, Functional Activity [place], Functional Strength, Group Therapy, Gait, Safety, Therapeutic Exercise, Transfers Treatment Duration: Jun 16, 2020 Frequency: At least 5 of 7 days/Wk (IRF) Estimated Hrs Per Day: 1.5 hours per day Patient and/or Family Agrees t: Yes Safety Risks/Education Patient Education: Gait Training, Transfer Techniques, Correct Positioning, Safety Issues Teaching Recipient: Patient Teaching Methods: Demonstration, Discussion Response to Teaching: Verbalize Understanding, Return Demonstration, Reinforcement Needed Time/GCodes Time In: 1300 Time Out: 1330 Total Billed Treatment Time: 30 Total Billed Treatment 1 visit: FA: 10' GT: 20' IAN PETTY PT Jun 08, 2020 13:59
--- NOTE | 2020-06-08 14:05 | Diagnostic Imaging Report ---
CHEST PA/LAT (2 VIEW) Indication: Elevated white blood cell count Comparison: 05/30/2020 Findings: No pulmonary mass or consolidation. No pleural effusion or pneumothorax. Normal heart size and mediastinal contours. Impression: No acute cardiopulmonary process. Dictated by: Dictated on workstation # [id number]
[2020-06-08 14:16] VITALS: BP 122/58
[2020-06-08] MEDS: BACLOFEN 10 MG (LIORESAL) TAB PO PRN (18:16)
[2020-06-08 20:06] VITALS: BP_SYST 114; BP_SYST 151; BP_DIAS 58; BP_DIAS 62
[2020-06-08] MEDS: ALPRAZolam 0.25 MG (XANAX) TAB PO PRN (21:20)
[2020-06-08] MEDS: MELATONIN 3 MG TABLET PO PRN (21:21)
[2020-06-09 08:00] VITALS: BP 109/63
[2020-06-09] MEDS: ASPIRIN 81 MG CHEW (CHILDREN'S ASA) PO SCH (08:26)
[2020-06-09] MEDS: lisINopril 20 MG (PRINIVIL) TABLET PO SCH (08:26)
[2020-06-09] MEDS: GABAPENTIN 300 MG (NEURONTIN) CAP PO SCH ×3 (08:27→20:48)
[2020-06-09] MEDS: CLOPIDOGREL 75 MG (PLAVIX) TABLET PO SCH (08:27)
[2020-06-09] MEDS: amLODIPine 5 MG (NORVASC) TAB PO SCH (08:27)
[2020-06-09] MEDS: ENOXAPARIN 40 MG/0.4 ML (LOVENOX) SYR SC SCH (08:29)
[2020-06-09] MEDS: DOCUSATE SODIUM 100 MG (COLACE) CAP PO SCH ×2 (08:29→20:49)
[2020-06-09] MEDS: polyethylene glycoL POWDER 17 GM (MIRALAX) PACK PO SCH ×2 (08:29→20:49)
[2020-06-09] MEDS: SENNA W/DOCUSATE (SENOKOT S) TABLET PO SCH ×2 (08:30→20:49)
[2020-06-09] MEDS: FLUTICASONE NASAL SPRAY (FLONASE) 16 GM BTL NS SCH ×2 (08:31→20:49)
[2020-06-09] MEDS: UMECLIDINIUM BROMIDE (INCRUSE ELLIPTA) 7'S IH SCH (08:45)
[2020-06-09] MEDS: RT-ALBUTEROL/IPRATROPIUM 3 ML (DUONEB) VIAL INH SCH ×2 (08:45→20:59)
--- NOTE | 2020-06-09 08:56 | PM&R Progress Note ---
Subjective HPI/CC On Admission Date Seen by Provider: Jun 09, 2020 Time Seen by Provider: 09:00 Subjective/Events-last exam 06/09/20: Pt set for DC soon to the half-way Right arm function is improved Right leg is slow Xanax helps him sleep Had a large BM yesterday 06/08/20: WBC 18.9 but Procalcitonin normal CXR chronic changes Xanax used to help him calm down He has very labile moods from meth use senior living placement pending 06/07/20: No issues Patient very nice today No cursing No falls 06/06/20: Patient doing well BM+ No pain reported 06/05/20: BM today Doing well Labile moods from meth use hx THC only on UDS BP good no orthostasis 06/04/20: Pt doing pretty well No bowels moving for the last three days BP has some variations 06/03/20: Pt very inappropriate with his responses Police came to his room because visitors that had just seen him that were involved in a crime and then went missing Right lower extremity is very weak Constantly asking to go outside and I know that is to "shoot up" Methamphetamine 06/02/20: Pt making some progress Curses a lot Impaired sleep but he did have some rest last night Constantly wants to go outside and I know that is to be able to smoke meth Very difficult situation 06/01/20: Pt having no new issues Very complex issues because of meth use and behaviors Working hard but likely will need a half-way Very difficult situation, social-handy 05/31/20: Patient cursing at his phone about his girlfriend Meth use has changed brain function BM treatment ordered Patient still asking if he can go outside if he has a visitor but I fear he would use meth so I am not approving him of going outside or off unit without staff 05/30/20: Patient had episode of CP last night and dyspnea Cardiology evaluated him today CXR ATX no evidence of sepsis or PNA Meth use hx has caused multiple medical issues 05/29/20: Patient remains stable Labile moods are from meth use hx Asking if he could go outside with his friend tomorrow and I stated likely not due to his meth use and could take [place] at that time 05/28/20: Labile behavior h/o meth use has been a factor in this behavior Obsessed about where his girlfriend is Lungs are clear 05/27/20: Pt doing a lot better Slept in today Working with therapy Right-sided weakness is significant Will work through things as they come Hopefully wont leave AMA this time Review of Systems General: Fatigue, Malaise Neurological: Weakness Objective Exam Vital Signs Vital Signs Date Time Temp Pulse Resp B/P (MAP) Pulse Ox O2 Delivery O2 Flow Rate FiO2 06/09/20 21:00 94 Room Air 06/09/20 20:00 36.6 69 16 148/66 (93) Capillary Refill : General Appearance: No Apparent Distress, WD/WN, Chronically ill, Thin HEENT: PERRL/EOMI, Normal ENT Inspection, Pharynx Normal Neck: Full Range of Motion, Normal Inspection, Non Tender, Supple, Carotid Bruit Respiratory: Chest Non Tender, Lungs Clear, Normal Breath Sounds, No Accessory Muscle Use, No Respiratory Distress Cardiovascular: Regular Rate, Rhythm, No Edema, No Gallop, No JVD, No Murmur, Normal Peripheral Pulses Gastrointestinal: Normal Bowel Sounds, No Organomegaly, No Pulsatile Mass, Non Tender, Soft Back: Normal Inspection, No CVA Tenderness, No Vertebral Tenderness Extremity: Normal Capillary Refill, Normal Inspection, Normal Range of Motion, Non Tender, No Calf Tenderness, No Pedal Edema Neurologic/Psychiatric: Alert, Oriented x3, Normal Mood/Affect, Motor Weakness (right sided weakness 3/5 leg and arm) Skin: Normal Color, Warm/Dry Lymphatic: No Adenopathy Results/Procedures Lab Patient resulted labs reviewed. FIM Transfers Therapy Code Descriptions/Definitions Functional [place] Measure: 0=Not Assessed/NA 4=Minimal Assistance 1=Total Assistance 5=Supervision or Setup 2=Maximal Assistance 6=Modified [place] 3=Moderate Assistance 7=Complete IndependenceSCALE: Activities may be completed with or without assistive devices. 6-Crkywqoezi-tajqkgt completes the activity by him/herself with no assistance from a helper. 5-Set-up or Clean-up Assistance-helper sets up or cleans up; patient completes activity. [place] assists only prior to or following the activity. 4-Supervision or Touching Assistance-helper provides verbal cues and/or touching/steadying and/or contact guard assistance as patient completes activity. Assistance may be provided throughout the activity or intermittently. 3-Partial/Moderate Assistance-helper does LESS THAN HALF the effort. [place] lifts, holds or supports trunk or limbs, but provides less than half the effort. 2-Substantial/Maximal Assistance-helper does MORE THAN HALF the effort. [place] lifts or holds trunk or limbs and provides more than half the effort. 8-Apoeicecx-hyuiht does ALL the effort. Patient does none of the effort to complete the activity. Or, the assistance of 2 or more helpers is required for the patient to complete the activity. If activity was not attempted, code reason: 7-Patient Refused. 9-Not Applicable-not attempted and the patient did not perform the activity before the current illness, exacerbation or injury. 10-Not Attempted due to Environmental Limitations-(lack of equipment, weather restraints, etc.). 88-Not Attempted due to Medical Conditions or Safety Concerns. Roll Left to Right (QC): 6 Sit to Lying (QC): 5 Sit to Stand (QC): 3 (mod) Chair/Cxb-fb-Jziju Xfer(QC): 3 (mod) Car Transfer (QC): 3 (mod) Gait Training Does the Patient Walk?: Yes Distance: 40', 80', 120' Walk 10 feet (QC): 4 Walk 50 ft with 2 Turns(QC): 4 Walk 150 ft (QC): 4 Walking 10ft/uneven surface-QC: 88 Gait Persons Needed: 1 Gait Assistive Device: FWW Wheelchair Training Does the Pt Use a Wheelchair?: Yes Wheel 50 ft with 2 turns (QC): 5 Wheel 150 ft (QC): 4 Type of Wheelchair: Manual Stair Training 1 Step (curb) (QC): 88 4 Steps (QC): 88 12 Steps (QC): 88 Balance Picking up an Object (QC): 88 ADL-Treatment Eating (QC): 5 (set up with containers) Oral Hygiene (QC): 7 (Pt declined as he does not have any teeth.) Shower/Bathe Self (QC): 4 (Supervision, pt able to wash/dry all parts seated on SC) Upper Body Dressing (QC): 3 (Pt doffed shirt with increased time, min A donning shirt due to rolling on R side, assist to unroll) Lower Body Dressing (QC): 3 (Min A doffing/donning pants on RLE. Pt able to complete pant hike, min A standing balance, and able to complete LLE) On/Off Footwear (QC): 3 (Pt required assistance holding RLE for doffing. pt able to doff socks using AE. Pt donned socks using 1 handed method, assist with RLE) Toileting Hygiene (QC): 3 (Pt completed clothing management, min A standing balance. 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 05/03/20 Plan: IRF protocol Monitor closely Supportive care Hope does not leave AMA 05/28/20: Monitor closely Very labile behavior 05/29/20: Monitor closely Meth use has caused labile behavior 05/30/20: CP and dyspnea monitored 05/31/20: Monitor closely Not allowed to leave the unit without staff due to what I suspect as planning to use meth 06/01/20: Monitor closely Continue treatment 06/02/20: Monitor closely Cannot go outside as he is requesting daily due to high risk for using meth 06/03/20: Monitor closely Meth use is causing all med issues and behaviors 06/04/20: Monitor CP Monitor closely 06/05/20: Doing better DC planning 06/06/20: Monitor closely Fall risk 06/07/20: Monitor closely Check labs in am 06/08/20: Monitor BP Doing better NH at DC 06/09/20: NHP Monitor closely (1) CVA (cerebral vascular accident) Status: Acute (2) Methamphetamine abuse Status: Acute (3) HLD (hyperlipidemia) Status: Chronic (4) Carotid stenosis Status: Acute (5) HTN (hypertension) Status: Acute (6) Cannabis abuse Status: Acute (7) Hemiparesis of right dominant side Status: Acute (8) Very heavy cigarette smoker (40 or more per day) Status: Acute (9) Illicit drug use Status: Acute (10) Hypertension (11) COPD (chronic obstructive pulmonary disease) PRUDENCE BECK DO Jun 09, 2020 08:56
--- NOTE | 2020-06-09 10:22 | Occupational Ther Daily Note ---
OT Current Status-Daily Note Subjective Pt laying in bed, agreeable to OT tx with focus on ADLs. ADL-Treatment Therapy Code Descriptions/Definitions Functional [place] Measure: 0=Not Assessed/NA 4=Minimal Assistance 1=Total Assistance 5=Supervision or Setup 2=Maximal Assistance 6=Modified [place] 3=Moderate Assistance 7=Complete IndependenceSCALE: Activities may be completed with or without assistive devices. 8-Wuwreqerwq-mmacnzo completes the activity by him/herself with no assistance from a helper. 5-Set-up or Clean-up Assistance-helper sets up or cleans up; patient completes activity. [place] assists only prior to or following the activity. 4-Supervision or Touching Assistance-helper provides verbal cues and/or touching/steadying and/or contact guard assistance as patient completes activity. Assistance may be provided throughout the activity or intermittently. 3-Partial/Moderate Assistance-helper does LESS THAN HALF the effort. [place] lifts, holds or supports trunk or limbs, but provides less than half the effort. 2-Substantial/Maximal Assistance-helper does MORE THAN HALF the effort. [place] l ifts or holds trunk or limbs and provides more than half the effort. 2-Ppbhfpocb-rnstbb does ALL the effort. Patient does none of the effort to complete the activity. Or, the assistance of 2 or more helpers is required for the patient to complete the activity. If activity was not attempted, code reason: 7-Patient Refused. 9-Not Applicable-not attempted and the patient did not perform the activity before the current illness, exacerbation or injury. 10-Not Attempted due to Environmental Limitations-(lack of equipment, weather restraints, etc.). 88-Not Attempted due to Medical Conditions or Safety Concerns. Oral Hygiene (QC): 88 Shower/Bathe Self (QC): 4 (SBA, pt able to wash/dry all parts seated on SC, using LH sponge as needed) Upper Body Dressing (QC): 5 (set up) Lower Body Dressing (QC): 4 (CGA, pt able to complete pant hike with CGA, increased time to thread BLEs.) On/Off Footwear: 4 (SBA, pt able to doff/don bilateral LE gripper socks. OT provided pt with dycem to use with task.) Other Treatment Pt laying in bed, transferred supine to sit EOB, SBA. Transferred from EOB to w/c, SPT with CGA. Pt taken into bathroom, SPT to VT with CGA. Pt doffed clothes, completed shower, then transferred to w/c to don clothes. Pt taken into his room, able to use phone to order lunch after OT handed pt phone and menu. Post tx, pt seated in w/c, call light in reach and all needs met. Education OT Patient Education: Correct positioning, Modified ADL techniques, Progress toward Goal/Update tx plan, Purpose of tx/functional activities Teaching Recipient: Patient Teaching Methods: Discussion Response to Teaching: Verbalize Understanding OT Short Term Goals Short Term Goals Time Frame: Jun 02, 2020 Eatin Oral hygiene: 88 Toileting hygiene: 3 Shower/bathe self: 3 Upper body dressin Lower body dressin Putting on/taking off footwear: 3 OT Senior Care Goals [place] Goals Time Frame: Jun 16, 2020 Eating (QC): 6 Oral Hygiene (QC): 88 Toileting Hygiene (QC): 6 Shower/Bathe Self (QC): 4 Upper Body Dressing (QC): 6 Lower Body Dressing (QC): 6 On/Off Footwear (QC): 6 Additional Goals: 1-Demonstrate ADL Tasks, 2-Verbalize Understanding, 3- ImproveStrength/Dutch 1=Demonstrate adherence to instructed precautions during ADL tasks. 2=Patient will verbalize/demonstrate understanding of assistive devices/modifications for ADL. 3=Patient will improve strength/tolerance for activity to enable patient to perform ADL's. OT Education/Plan Problem List/Assessment Assessment: Decreased Activ Tolerance, Decreased UE Strength, Impaired Funct Balance, Impaired I ADL's, Impaired Self-Care Skills, Restricted Funct UE ROM Discharge Recommendations Plan/Recommendations: Continue POC Treatment Plan/Plan of Care Patient would benefit from OT for education, treatment and training to promote independence in ADL's, mobility, safety and/or upper extremity function for ADL's. Plan of Care: ADL Retraining, Functional Mobility, Group Exercise/Act as Ind, UE Funct Exercise/Act Treatment Duration: Jun 16, 2020 Frequency: At least 5 of 7 days/Wk (IRF) Estimated Hrs Per Day: 1.5 hours per day Agreement: Yes Rehab Potential: Fair Time/GCodes Start Time: 10:00 Stop Time: 11:00 Total Time Billed (hr/min): 60 Billed Treatment Time 1, ADL 4 MILAD HENDRICKSON OT Jun 09, 2020 10:22
--- NOTE | 2020-06-09 11:40 | Physical Therapy Daily Note ---
PT Daily Note-Current Subjective Patient in good mood and agreeable to therapy. Patient upright in w/c pre tx. Appearance Patient supine in bed post tx, with call button and tray table within reach. Mental Status Patient Orientation: Person, Place, Time, Situation Transfers SCALE: Activities may be completed with or without assistive devices. 0-Qumiilfwuq-jgyitkw completes the activity by him/herself with no assistance from a helper. 5-Set-up or Clean-up Assistance-helper sets up or cleans up; patient completes activity. [place] assists only prior to or following the activity. 4-Supervision or Touching Assistance-helper provides verbal cues and/or touching/steadying and/or contact guard assistance as patient completes activity. Assistance may be provided throughout the activity or intermittently. 3-Partial/Moderate Assistance-helper does LESS THAN HALF the effort. [place] lifts, holds or supports trunk or limbs, but provides less than half the effort. 2-Substantial/Maximal Assistance-helper does MORE THAN HALF the effort. [place] lifts or holds trunk or limbs and provides more than half the effort. 9-Yjjhbmrhc-yaiwkb does ALL the effort. Patient does none of the effort to complete the activity. Or, the assistance of 2 or more helpers is required for the patient to complete the activity. If activity was not attempted, code reason: 7-Patient Refused. 9-Not Applicable-not attempted and the patient did not perform the activity before the current illness, exacerbation or injury. 10-Not Attempted due to Environmental Limitations-(lack of equipment, weather restraints, etc.). 88-Not Attempted due to Medical Conditions or Safety Concerns. Sit to Stand (QC): 4 Patient required less assistance with sit <-> stand transfer during today's ses ha. Weight Bearing Full Weight Bearing Full Weight Bearing Gait Training Does the Patient Walk?: Yes Distance: 120' x2 Walk 10 feet (QC): 4 Walk 50 ft with 2 Turns(QC): 4 Gait Assistive Device: FWW Patient required one rest break after first 80' of ambulation. Patient continues to intermittently demonstrate reciprocal gait pattern and step to. Patient reports his left arm is tiring, and discussed trying to bear more weight through LE's as he gains confidence. Patient was able to ambulate entire distance from gym to patient room without a rest break, with primarily a step-to gait pattern. Exercises NuStep Minutes: 15 NuStep Workload: 5 Treatments LE strengthening, endurance, gait training, transfers Assessment Current Status: Fair Progress Patient motivated to participate, lacks consistency with gait sequencing PT Short Term Goals Short Term Goals Time Frame: Jun 02, 2020 Roll Left & Right: 4 (SBA) Sit to lyin (SBA) Lying to sitting on side of be: 4 (SBA) Sit to stand: 4 (CGA) Chair/vmy-dk-qlpsm transfer: 4 (min) Toilet transfer: 4 (min) Car transfer: 4 (min) Walk 10 feet: 4 (min) Walk 50 feet with two turns: 4 (min) 1 step (curb): 4 (CGA) Wheel 50ft w/2 turns: 4 Wheel 150 feet: 4 PT Fdc Goals Fdc Goals PT School Lunch Manager Goals Time Frame: Jun 16, 2020 Roll Left & Right (QC): 5 Sit to Lying (QC): 5 Lying-Sitting on Side/Bed(QC): 5 Sit to Stand (QC): 5 Chair/Gfz-bs-Mtkog Xfer(QC): 4 (CGA) Toilet Transfer (QC): 4 (CGA) Car Transfer (QC): 4 (CGA) Does the Patient Walk: Yes Walk 10 feet (QC): 4 (CGA) Walk 50ft with 2 Turns (QC): 4 (CGA) Walk 150 ft (QC): 4 (CGA) Walking 10ft on Uneven Surface: 4 (CGA) 1 Step (curb) (QC): 4 (CGA) 4 Steps (QC): 4 (CGA) 12 Steps (QC): 88 Picking up an Object (QC): 4 (CGA) Does the Pt use WC or Scooter?: Yes Wheel 50 feet with 2 turns (QC: 6 Type: Manual Wheel 150 feet: 6 Type: Manual PT Plan Problem List Problem List: Activity Tolerance, Functional Strength, Safety, Balance, Gait, Transfer, Bed Mobility, ROM Treatment/Plan Treatment Plan: Continue Plan of Care Treatment Plan: Bed Mobility, Education, Functional Activity Dutch, Functional Strength, Group Therapy, Gait, Safety, Therapeutic Exercise, Transfers Treatment Duration: Jun 16, 2020 Frequency: At least 5 of 7 days/Wk (IRF) Estimated Hrs Per Day: 1.5 hours per day Patient and/or Family Agrees t: Yes Safety Risks/Education Patient Education: Gait Training, Transfer Techniques, Correct Positioning, Safety Issues Teaching Recipient: Patient Teaching Methods: Demonstration, Discussion Response to Teaching: Verbalize Understanding, Return Demonstration Time/GCodes Time In: 1100 Time Out: 1200 Total Billed Treatment Time: 60 Total Billed Treatment 1 visit: GT x2: 30' EX: 15' FA: 15' IAN PETTY PT Jun 09, 2020 11:39
[2020-06-09] MEDS: BACLOFEN 10 MG (LIORESAL) TAB PO PRN (12:03)
--- NOTE | 2020-06-09 13:24 | Occupational Ther Daily Note ---
OT Current Status-Daily Note Subjective Pt laying in bed, agreeable to OT tx. ADL-Treatment Therapy Code Descriptions/Definitions Functional [place] Measure: 0=Not Assessed/NA 4=Minimal Assistance 1=Total Assistance 5=Supervision or Setup 2=Maximal Assistance 6=Modified [place] 3=Moderate Assistance 7=Complete IndependenceSCALE: Activities may be completed with or without assistive devices. 4-Nhndpukemh-yfapsbd completes the activity by him/herself with no assistance from a helper. 5-Set-up or Clean-up Assistance-helper sets up or cleans up; patient completes activity. [place] assists only prior to or following the activity. 4-Supervision or Touching Assistance-helper provides verbal cues and/or touching/steadying and/or contact guard assistance as patient completes activity. Assistance may be provided throughout the activity or intermittently. 3-Partial/Moderate Assistance-helper does LESS THAN HALF the effort. [place] lifts, holds or supports trunk or limbs, but provides less than half the effort. 2-Substantial/Maximal Assistance-helper does MORE THAN HALF the effort. [place] lifts or holds trunk or limbs and provides more than half the effort. 7-Qajfgqlkg-yqabeg does ALL the effort. Patient does none of the effort to com plete the activity. Or, the assistance of 2 or more helpers is required for the patient to complete the activity. If activity was not attempted, code reason: 7-Patient Refused. 9-Not Applicable-not attempted and the patient did not perform the activity before the current illness, exacerbation or injury. 10-Not Attempted due to Environmental Limitations-(lack of equipment, weather restraints, etc.). 88-Not Attempted due to Medical Conditions or Safety Concerns. Other Treatment Pt finishing lunch, then transferred supine to sit EOB with SBA. SPT to w/c on L side, SBA. Pt propelled w/c to therapy gym. In order to increase BUE strength, activity tolerance, RUE neuromuscular reeducation, and bilateral integration, pt completed x10 mins on arm bike, min resistance, rest breaks as needed. Pt propelled back to room, transferring back into bed SPT to R side, SBA. Post tx, pt laying in bed, call light in reach and all needs met. Education OT Patient Education: Correct positioning, Modified ADL techniques, Progress toward Goal/Update tx plan, Purpose of tx/functional activities Teaching Recipient: Patient Teaching Methods: Discussion Response to Teaching: Verbalize Understanding OT Short Term Goals Short Term Goals Time Frame: Jun 02, 2020 Eatin Oral hygiene: 88 Toileting hygiene: 3 Shower/bathe self: 3 Upper body dressin Lower body dressin Putting on/taking off footwear: 3 OT [facility] Goals Warehouse Clerk Goals Time Frame: Jun 16, 2020 Eating (QC): 6 Oral Hygiene (QC): 88 Toileting Hygiene (QC): 6 Shower/Bathe Self (QC): 4 Upper Body Dressing (QC): 6 Lower Body Dressing (QC): 6 On/Off Footwear (QC): 6 Additional Goals: 1-Demonstrate ADL Tasks, 2-Verbalize Understanding, 3- ImproveStrength/Dutch 1=Demonstrate adherence to instructed precautions during ADL tasks. 2=Patient will verbalize/demonstrate understanding of assistive devices/modifications for ADL. 3=Patient will improve strength/tolerance for activity to enable patient to perform ADL's. OT Education/Plan Problem List/Assessment Assessment: Decreased Activ Tolerance, Decreased UE Strength, Impaired Funct Balance, Impaired I ADL's, Impaired Self-Care Skills, Restricted Funct UE ROM Discharge Recommendations Plan/Recommendations: Continue POC Treatment Plan/Plan of Care Patient would benefit from OT for education, treatment and training to promote independence in ADL's, mobility, safety and/or upper extremity function for ADL' s. Plan of Care: ADL Retraining, Functional Mobility, Group Exercise/Act as Ind, UE Funct Exercise/Act Treatment Duration: Jun 16, 2020 Frequency: At least 5 of 7 days/Wk (IRF) Estimated Hrs Per Day: 1.5 hours per day Agreement: Yes Rehab Potential: Fair Time/GCodes Start Time: 13:00 Stop Time: 13:30 Total Time Billed (hr/min): 30 Billed Treatment Time 1, ADL (15'), EX (15') MILAD HENDRICKSON OT Jun 09, 2020 13:24
--- NOTE | 2020-06-09 13:58 | Progress Note - Cardiology ---
Cardiology SOAP Progress Note Subjective: Sitting up in bed watching a movie States he feels better today Episode of hypotension yesterday, no further episodes No c/o CP, palpitations, syncope or near syncope No c/o SOB Objective: I&O/Vital Signs 06/09/20 06/09/20 06/09/20 08:00 08:45 09:00 Temp 35.9 Pulse 61 Resp 18 B/P (MAP) 109/63 (78) Pulse Ox 94 92 O2 Delivery Room Air Room Air Room Air 06/09/20 00:00 Intake Total 950 ml Output Total 900 ml Balance 50 ml Weight (Pounds): 195 Weight (Ounces): 0 Weight (Calculated Kilograms): 88.451063 Constitutional: AAO x 3, well-developed, other (thin) Respiratory: No accessory muscle use, No respiratory distress; chest expansion is symmetric, chest is bilaterally symmetric, lungs clear to auscultation Cardiovascular: regular rate-rhythm; No JVD; S1 and S2 Gastrointestional: No tender; soft, round, audible bowel sounds Extremities: no lower extremity edema bilateral Neurologic/Psychiatric: other (right sided hemiparesis) Skin: No rash on exposed areas, No ulcerations on exposed areas Results/Procedures: Labs Laboratory Tests 06/08/20 05:00 Procedures NAME: CRISTI [facility] REC#: [id number] PT STATUS: ADM IN : 1955 PHYSICIAN: PRUDENCE BECK DO ADMIT DATE: 05/26/20/IRF Signed Date of Exam:06/08/20 CHEST PA/LAT (2 VIEW) CHEST PA/LAT (2 VIEW) Indication: Elevated white blood cell count Comparison: 05/30/2020 Findings: No pulmonary mass or consolidation. No pleural effusion or pneumothorax. Normal heart size and mediastinal contours. Impression: No acute cardiopulmonary process. Dictated by: Dictated on workstation # [id number] Dict: 06/08/20 1403 Trans: 06/08/20 1404 [facility] [id number] Interpreted by: ADRIANA TAYLOR MD Electronically signed by: ADRIANA TAYLOR MD 06/08/20 1404 A/P: Assessment: Episode of hypotension on 06-08-20 of undetermined etiology - no further episodes Episode of chest pain, shortness of breath, resolved, no further episodes were reported Recurrent CVA d/t Carotid artery stenosis, had a stroke in December 2019 resulted in right-sided weakness, had left-sided weakness on this admission. He had history of carotid stenting at [facility] in January 2020 after the first stroke, he is known to have complete occlusion of the left common and internal carotid arteries, stent of the right carotid artery. Most recent CTA head done 05/23/20 showing internal thrombus within the right internal carotid artery stent which is slightly less prominent than on the prior examination. [facility] neurology consulted and recommend continuation of ASA and Plavix. Does not warrant intervention at this time. Coronary artery disease, history of cardiac catheterization in 2013 showing patent stents in the proximal LAD, known to have Promus element 2.75 by 16mm placed in July 2012, the proximal stent is Premier 3 x 16 placed in June 2013, had 50-60 percent mid LAD stenosis, Hypertension Hyperlipidemia Tobaccoism, educated on smoking cessation H/O marijuana and heavy EtOH use Methamphetamine abuse; (+) this admission H/O hepatitis C followed at the [facility] COPD Chronically abnormal EKG that shows LVH with repolarization abnormalities Plan: Continue current medication regimen D/t episodes of somewhat low blood pressure will reduce antihypertensives Monitor lab BRIE CURRAN Jun 09, 2020 13:58
--- NOTE | 2020-06-09 14:59 | Physical Therapy Daily Note ---
PT Daily Note-Current Subjective Patient supine pre tx, reports on pain, consents to therapy. Appearance Patient supine post tx, all needs met, tray and call button within reach. Mental Status Patient Orientation: Person, Place, Time, Situation Transfers SCALE: Activities may be completed with or without assistive devices. 6-Knyhlpjirs-hyupuiw completes the activity by him/herself with no assistance from a helper. 5-Set-up or Clean-up Assistance-helper sets up or cleans up; patient completes activity. [place] assists only prior to or following the activity. 4-Supervision or Touching Assistance-helper provides verbal cues and/or touc rosemary/steadying and/or contact guard assistance as patient completes activity. Assistance may be provided throughout the activity or intermittently. 3-Partial/Moderate Assistance-helper does LESS THAN HALF the effort. [place] lifts, holds or supports trunk or limbs, but provides less than half the effort. 2-Substantial/Maximal Assistance-helper does MORE THAN HALF the effort. [place] lifts or holds trunk or limbs and provides more than half the effort. 2-Qvrlthtoa-jiksmi does ALL the effort. Patient does none of the effort to complete the activity. Or, the assistance of 2 or more helpers is required for the patient to complete the activity. If activity was not attempted, code reason: 7-Patient Refused. 9-Not Applicable-not attempted and the patient did not perform the activity before the current illness, exacerbation or injury. 10-Not Attempted due to Environmental Limitations-(lack of equipment, weather restraints, etc.). 88-Not Attempted due to Medical Conditions or Safety Concerns. Roll Left & Right (QC): 6 Sit to Lying (QC): 6 Lying to Sitting/Side of Bed(Q: 6 Sit to Stand (QC): 4 CGA with sit <-> stand Weight Bearing Full Weight Bearing Full Weight Bearing Gait Training Does the Patient Walk?: Yes Distance: 80', 40', 120' Walk 10 feet (QC): 4 Walk 50 ft with 2 Turns(QC): 4 Gait Assistive Device: FWW CGA. Patient took break after first 80' of ambulation to fix sock, did not need rest break during last ambulation cycle. Exercises Standing: Unilateral stance, Weight shifts Standing Reps: 10 (30 second intervals) Patient went back and forth practicing weight shifting on both LE's while titrating UE support using parallel bars. Patient was able to keep R hip flexion for ~15 seconds before needing a break. When full weight bearing on R LE, patient demonstrated tendency of shifting hips back considerably. Patient was able to fully bear weight on R LE with mild UE support, but it was challenging to patient. Treatments balance, weight shifting, gait, transfers Assessment Current Status: Fair Progress Patient more consistent with amount of assistance needed with sit <-> stand. PT Short Term Goals Short Term Goals Time Frame: Jun 02, 2020 Roll Left & Right: 4 (SBA) Sit to lyin (SBA) Lying to sitting on side of be: 4 (SBA) Sit to stand: 4 (CGA) Chair/are-xm-pxoxo transfer: 4 (min) Toilet transfer: 4 (min) Car transfer: 4 (min) Walk 10 feet: 4 (min) Walk 50 feet with two turns: 4 (min) 1 step (curb): 4 (CGA) Wheel 50ft w/2 turns: 4 Wheel 150 feet: 4 PT Senior Care Goals Senior Care Goals PT Senior Care Goals Time Frame: Jun 16, 2020 Roll Left & Right (QC): 5 Sit to Lying (QC): 5 Lying-Sitting on Side/Bed(QC): 5 Sit to Stand (QC): 5 Chair/Vbn-sp-Jveph Xfer(QC): 4 (CGA) Toilet Transfer (QC): 4 (CGA) Car Transfer (QC): 4 (CGA) Does the Patient Walk: Yes Walk 10 feet (QC): 4 (CGA) Walk 50ft with 2 Turns (QC): 4 (CGA) Walk 150 ft (QC): 4 (CGA) Walking 10ft on Uneven Surface: 4 (CGA) 1 Step (curb) (QC): 4 (CGA) 4 Steps (QC): 4 (CGA) 12 Steps (QC): 88 Picking up an Object (QC): 4 (CGA) Does the Pt use WC or Scooter?: Yes Wheel 50 feet with 2 turns (QC: 6 Type: Manual Wheel 150 feet: 6 Type: Manual PT Plan Problem List Problem List: Activity Tolerance, Functional Strength, Safety, Balance, Gait, Transfer, Bed Mobility, ROM Treatment/Plan Treatment Plan: Continue Plan of Care Treatment Plan: Bed Mobility, Education, Functional Activity [place], Functional Strength, Group Therapy, Gait, Safety, Therapeutic Exercise, Transfers Treatment Duration: Jun 16, 2020 Frequency: At least 5 of 7 days/Wk (IRF) Estimated Hrs Per Day: 1.5 hours per day Patient and/or Family Agrees t: Yes Safety Risks/Education Patient Education: Gait Training, Transfer Techniques, Correct Positioning, Safety Issues Teaching Recipient: Patient Teaching Methods: Demonstration, Discussion Response to Teaching: Verbalize Understanding, Return Demonstration Time/GCodes Time In: 1400 Time Out: 1430 Total Billed Treatment Time: 30 Total Billed Treatment 1 visit: EX: 15' GT: 15' IAN PETTY PT Jun 09, 2020 14:59
--- NOTE | 2020-06-09 18:12 | Progress Note - Cardiology ---
Cardiology SOAP Progress Note Subjective: Gen malaise No cp or palp or syncope No shortness of breath No n/v/d Objective: I&O/Vital Signs 06/09/20 06/09/20 06/09/20 08:00 08:45 09:00 Temp 35.9 Pulse 61 Resp 18 B/P (MAP) 109/63 (78) Pulse Ox 94 92 O2 Delivery Room Air Room Air Room Air 06/09/20 00:00 Intake Total 950 ml Output Total 900 ml Balance 50 ml Weight (Pounds): 195 Weight (Ounces): 0 Weight (Calculated Kilograms): 88.334830 Constitutional: AAO x 3, well-developed, other (thin) Respiratory: No accessory muscle use, No respiratory distress; chest expansion is symmetric, chest is bilaterally symmetric, lungs clear to auscultation Cardiovascular: regular rate-rhythm; No JVD; S1 and S2 Gastrointestional: No tender; soft, round, audible bowel sounds Extremities: no lower extremity edema bilateral Neurologic/Psychiatric: other (right sided hemiparesis) Skin: No rash on exposed areas, No ulcerations on exposed areas A/P: Assessment: Episode of hypotension on 06-08-20 of undetermined etiology - no further episodes Episode of chest pain, shortness of breath, resolved, no further episodes were reported Recurrent CVA d/t Carotid artery stenosis, had a stroke in December 2019 resulted in right-sided weakness, had left-sided weakness on this admission. He had history of carotid stenting at [facility] in January 2020 after the first stroke, he is known to have complete occlusion of the left common and internal carotid arteries, stent of the right carotid artery. Most recent CTA head done 05/23/20 showing internal thrombus within the right internal carotid artery stent which is slightly less prominent than on the prior examination. [facility] neurology consulted and recommend continuation of ASA and Plavix. Does not warrant intervention at this time. Coronary artery disease, history of cardiac catheterization in 2013 showing patent stents in the proximal LAD, known to have Promus element 2.75 by 16mm placed in July 2012, the proximal stent is Premier 3 x 16 placed in June 2013, had 50-60 percent mid LAD stenosis, Hypertension Hyperlipidemia Tobaccoism, educated on smoking cessation H/O marijuana and heavy EtOH use Methamphetamine abuse; (+) this admission H/O hepatitis C followed at the [facility] COPD Chronically abnormal EKG that shows LVH with repolarization abnormalities Plan: Continue current medication regimen D/t episodes of somewhat low blood pressure will reduce antihypertensives Monitor lab JUANITA PASCUAL MD FACP FAC CCDS Jun 09, 2020 18:12
[2020-06-09 20:00] VITALS: BP 148/66
[2020-06-09] MEDS: ALPRAZolam 0.25 MG (XANAX) TAB PO PRN (20:48)
[2020-06-09] MEDS: MELATONIN 3 MG TABLET PO PRN (20:48)
--- NOTE | 2020-06-10 06:08 | PM&R Progress Note ---
Subjective HPI/CC On Admission Date Seen by Provider: Jun 10, 2020 Time Seen by Provider: 09:00 Subjective/Events-last exam 06/10/20: Pt doing really well [facility]charge [facility] Pt is really happy with this decision 06/09/20: Pt set for DC soon to the shelter Right arm function is improved Right leg is slow Xanax helps him sleep Had a large BM yesterday 06/08/20: WBC 18.9 but Procalcitonin normal CXR chronic changes Xanax used to help him calm down He has very labile moods from meth use senior care placement pending 06/07/20: No issues Patient very nice today No cursing No falls 06/06/20: Patient doing well BM+ No pain reported 06/05/20: BM today Doing well Labile moods from meth use hx THC only on UDS BP good no orthostasis 06/04/20: Pt doing pretty well No bowels moving for the last three days BP has some variations 06/03/20: Pt very inappropriate with his responses Police came to his room because visitors that had just seen him that were involved in a crime and then went missing Right lower extremity is very weak Constantly asking to go outside and I know that is to "shoot up" Methamphetamine 06/02/20: Pt making some progress Curses a lot Impaired sleep but he did have some rest last night Constantly wants to go outside and I know that is to be able to smoke meth Very difficult situation 06/01/20: Pt having no new issues Very complex issues because of meth use and behaviors Working hard but likely will need a shelter Very difficult situation, social-handy 05/31/20: Patient cursing at his phone about his girlfriend Meth use has changed brain function BM treatment ordered Patient still asking if he can go outside if he has a visitor but I fear he would use meth so I am not approving him of going outside or off unit without staff 05/30/20: Patient had episode of CP last night and dyspnea Cardiology evaluated him today CXR ATX no evidence of sepsis or PNA Meth use hx has caused multiple medical issues 05/29/20: Patient remains stable Labile moods are from meth use hx Asking if he could go outside with his friend tomorrow and I stated likely not due to his meth use and could take [place] at that time 05/28/20: Labile behavior h/o meth use has been a factor in this behavior Obsessed about where his girlfriend is Lungs are clear 05/27/20: Pt doing a lot better Slept in today Working with therapy Right-sided weakness is significant Will work through things as they come Hopefully wont leave AMA this time Review of Systems General: Fatigue, Malaise Objective Exam Vital Signs Vital Signs Date Time Temp Pulse Resp B/P (MAP) Pulse Ox O2 Delivery O2 Flow Rate FiO2 06/10/20 21:30 98 Room Air 06/10/20 20:05 36.7 65 20 129/73 (91) Capillary Refill : General Appearance: No Apparent Distress, WD/WN, Chronically ill, Thin HEENT: PERRL/EOMI, Normal ENT Inspection, Pharynx Normal Neck: Full Range of Motion, Normal Inspection, Non Tender, Supple, Carotid Bruit Respiratory: Chest Non Tender, Lungs Clear, Normal Breath Sounds, No Accessory Muscle Use, No Respiratory Distress Cardiovascular: Regular Rate, Rhythm, No Edema, No Gallop, No JVD, No Murmur, Normal Peripheral Pulses Gastrointestinal: Normal Bowel Sounds, No Organomegaly, No Pulsatile Mass, Non Tender, Soft Back: Normal Inspection, No CVA Tenderness, No Vertebral Tenderness Extremity: Normal Capillary Refill, Normal Inspection, Normal Range of Motion, Non Tender, No Calf Tenderness, No Pedal Edema Neurologic/Psychiatric: Alert, Oriented x3, Normal Mood/Affect, Motor Weakness (right sided weakness 3/5 leg and arm) Skin: Normal Color, Warm/Dry Lymphatic: No Adenopathy Results/Procedures Lab Patient resulted labs reviewed. FIM Transfers Therapy Code Descriptions/Definitions Functional [place] Measure: 0=Not Assessed/NA 4=Minimal Assistance 1=Total Assistance 5=Supervision or Setup 2=Maximal Assistance 6=Modified [place] 3=Moderate Assistance 7=Complete IndependenceSCALE: Activities may be completed with or without assistive devices. 4-Nqavoeyzra-ejggune completes the activity by him/herself with no assistance from a helper. 5-Set-up or Clean-up Assistance-helper sets up or cleans up; patient completes activity. [place] assists only prior to or following the activity. 4-Supervision or Touching Assistance-helper provides verbal cues and/or touching/steadying and/or contact guard assistance as patient completes activity. Assistance may be provided throughout the activity or intermittently. 3-Partial/Moderate Assistance-helper does LESS THAN HALF the effort. [place] lifts, holds or supports trunk or limbs, but provides less than half the effort. 2-Substantial/Maximal Assistance-helper does MORE THAN HALF the effort. [place] lifts or holds trunk or limbs and provides more than half the effort. 4-Eovrzrini-vzyyto does ALL the effort. Patient does none of the effort to complete the activity. Or, the assistance of 2 or more helpers is required for the patient to complete the activity. If activity was not attempted, code reason: 7-Patient Refused. 9-Not Applicable-not attempted and the patient did not perform the activity before the current illness, exacerbation or injury. 10-Not Attempted due to Environmental Limitations-(lack of equipment, weather restraints, etc.). 88-Not Attempted due to Medical Conditions or Safety Concerns. Roll Left to Right (QC): 6 Sit to Lying (QC): 6 Sit to Stand (QC): 4 Chair/Tvr-lx-Zksxp Xfer(QC): 3 (mod) Car Transfer (QC): 3 (mod) Gait Training Does the Patient Walk?: Yes Distance: 80', 40', 120' Walk 10 feet (QC): 4 Walk 50 ft with 2 Turns(QC): 4 Walk 150 ft (QC): 4 Walking 10ft/uneven surface-QC: 88 Gait Persons Needed: 1 Gait Assistive Device: FWW Wheelchair Training Does the Pt Use a Wheelchair?: Yes Wheel 50 ft with 2 turns (QC): 5 Wheel 150 ft (QC): 4 Type of Wheelchair: Manual Stair Training 1 Step (curb) (QC): 88 4 Steps (QC): 88 12 Steps (QC): 88 Balance Picking up an Object (QC): 88 ADL-Treatment Eating (QC): 5 (set up with containers) Oral Hygiene (QC): 88 Shower/Bathe Self (QC): 4 (SBA, pt able to wash/dry all parts seated on SC, using LH sponge as needed) Upper Body Dressing (QC): 5 (set up) Lower Body Dressing (QC): 4 (CGA, pt able to complete pant hike with CGA, increased time to thread BLEs.) On/Off Footwear (QC): 4 (SBA, pt able to doff/don bilateral LE gripper socks. OT provided pt with dycem to use with task.) Toileting Hygiene (QC): 3 (Pt completed clothing management, min A standing balance. 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 05/03/20 Plan: IRF protocol Monitor closely Supportive care Hope does not leave AMA 05/28/20: Monitor closely Very labile behavior 05/29/20: Monitor closely Meth use has caused labile behavior 05/30/20: CP and dyspnea monitored 05/31/20: Monitor closely Not allowed to leave the unit without staff due to what I suspect as planning to use meth 06/01/20: Monitor closely Continue treatment 06/02/20: Monitor closely Cannot go outside as he is requesting daily due to high risk for using meth 06/03/20: Monitor closely Meth use is causing all med issues and behaviors 06/04/20: Monitor CP Monitor closely 06/05/20: Doing better DC planning 06/06/20: Monitor closely Fall risk 06/07/20: Monitor closely Check labs in am 06/08/20: Monitor BP Doing better NH at DC 06/09/20: NHP Monitor closely 06/10/20: DC ML tomorrow Monitor lungs (1) CVA (cerebral vascular accident) Status: Acute (2) Methamphetamine abuse Status: Acute (3) HLD (hyperlipidemia) Status: Chronic (4) Carotid stenosis Status: Acute (5) HTN (hypertension) Status: Acute (6) Cannabis abuse Status: Acute (7) Hemiparesis of right dominant side Status: Acute (8) Very heavy cigarette smoker (40 or more per day) Status: Acute (9) Illicit drug use Status: Acute (10) Hypertension (11) COPD (chronic obstructive pulmonary disease) PRUDENCE BECK DO Jun 10, 2020 06:08
[2020-06-10] MEDS: UMECLIDINIUM BROMIDE (INCRUSE ELLIPTA) 7'S IH SCH (07:02)
[2020-06-10] MEDS: RT-ALBUTEROL/IPRATROPIUM 3 ML (DUONEB) VIAL INH SCH ×2 (07:02→20:58)
[2020-06-10 08:00] VITALS: BP 115/64
[2020-06-10] MEDS: ASPIRIN 81 MG CHEW (CHILDREN'S ASA) PO SCH (09:55)
[2020-06-10] MEDS: CLOPIDOGREL 75 MG (PLAVIX) TABLET PO SCH (09:55)
[2020-06-10] MEDS: lisINopril 20 MG (PRINIVIL) TABLET PO SCH (09:55)
[2020-06-10] MEDS: GABAPENTIN 300 MG (NEURONTIN) CAP PO SCH ×3 (09:55→21:29)
[2020-06-10] MEDS: ENOXAPARIN 40 MG/0.4 ML (LOVENOX) SYR SC SCH (09:56)
--- NOTE | 2020-06-10 10:12 | Occupational Ther Daily Note ---
OT Current Status-Daily Note Subjective Pt agreeable to therapy, states plan is to discharge tomorrow to [facility]. Mental Status/Objective Patient Orientation: Person, Place, Time, Situation ADL-Treatment Therapy Code Descriptions/Definitions Functional [place] Measure: 0=Not Assessed/NA 4=Minimal Assistance 1=Total Assistance 5=Supervision or Setup 2=Maximal Assistance 6=Modified [place] 3=Moderate Assistance 7=Complete IndependenceSCALE: Activities may be completed with or without assistive devices. 5-Avgbupeisd-ffmfisc completes the activity by him/herself with no assistance from a helper. 5-Set-up or Clean-up Assistance-helper sets up or cleans up; patient completes activity. [place] assists only prior to or following the activity. 4-Supervision or Touching Assistance-helper provides verbal cues and/or touching/steadying and/or contact guard assistance as patient completes activity. Assistance may be provided throughout the activity or intermittently. 3-Partial/Moderate Assistance-helper does LESS THAN HALF the effort. [place] lifts, holds or supports trunk or limbs, but provides less than half the effort. 2-Substantial/Maximal Assistance-helper does MORE THAN HALF the effort. [place] lifts or holds trunk or limbs and provides more than half the effort. 6-Kyhexriqi-zficpz does ALL the effort. Patient does none of the effort to complete the activity. Or, the assistance of 2 or more helpers is required for the patient to complete the activity. If activity was not attempted, code reason: 7-Patient Refused. 9-Not Applicable-not attempted and the patient did not perform the activity before the current illness, exacerbation or injury. 10-Not Attempted due to Environmental Limitations-(lack of equipment, weather restraints, etc.). 88-Not Attempted due to Medical Conditions or Safety Concerns. Eating (QC): 5 (set up assist with containers and cutting food.) Oral Hygiene (QC): 88 Toileting Hygiene (QC): 3 (Min A with standing balance, pt able to manage hygiene and clothing.) Toilet Transfer (QC): 4 (CGA with SPT to/from toilet using GBs.) Other Treatment Pt laying in bed, transferred supine to sit EOB, SBA. Pt transferred to w/c, SPT towards L side, CGA. Pt states need to toilet, taken into bathroom, SPT to toilet CGA. Pt completed toileting, min A with balance as pt managed clothing. Pt transferred w/c, self propelling to therapy gym. In order to increase BUE strength and activity tolerance, bilateral integration, and RUE neuromuscular reeducation, pt completed arm bike x15 mins, min resistance. Frequent rest breaks with task due to pt using talk to text feature on his phone and using his phone to play music. Pt propelled w/c back to room, SPT to bed. Post tx, pt laying in bed, call light in reach and all needs met. Education OT Patient Education: Correct positioning, Modified ADL techniques, Progress toward Goal/Update tx plan, Purpose of tx/functional activities Teaching Recipient: Patient Teaching Methods: Discussion Response to Teaching: Verbalize Understanding OT Short Term Goals Short Term Goals Time Frame: Jun 02, 2020 Eatin Oral hygiene: 88 Toileting hygiene: 3 Shower/bathe self: 3 Upper body dressin Lower body dressin Putting on/taking off footwear: 3 OT Detention Goals Insole Cementer Goals Time Frame: Jun 16, 2020 Eating (QC): 6 Oral Hygiene (QC): 88 Toileting Hygiene (QC): 6 Shower/Bathe Self (QC): 4 Upper Body Dressing (QC): 6 Lower Body Dressing (QC): 6 On/Off Footwear (QC): 6 Additional Goals: 1-Demonstrate ADL Tasks, 2-Verbalize Understanding, 3- ImproveStrength/Dutch 1=Demonstrate adherence to instructed precautions during ADL tasks. 2=Patient will verbalize/demonstrate understanding of assistive devices/modifications for ADL. 3=Patient will improve strength/tolerance for activity to enable patient to perform ADL's. OT Education/Plan Problem List/Assessment Assessment: Decreased Activ Tolerance, Decreased UE Strength, Impaired Funct Balance, Impaired I ADL's, Impaired Self-Care Skills, Restricted Funct UE ROM Discharge Recommendations Plan/Recommendations: Continue POC Treatment Plan/Plan of Care Patient would benefit from OT for education, treatment and training to promote independence in ADL's, mobility, safety and/or upper extremity function for ADL's. Plan of Care: ADL Retraining, Functional Mobility, Group Exercise/Act as Ind, UE Funct Exercise/Act Treatment Duration: Jun 16, 2020 Frequency: At least 5 of 7 days/Wk (IRF) Estimated Hrs Per Day: 1.5 hours per day Agreement: Yes Rehab Potential: Fair Time/GCodes Start Time: 09:30 Stop Time: 10:30 Total Time Billed (hr/min): 60 Billed Treatment Time 1, ADL 2 (30'), EX (20'), FA (10') MILAD HENDRICKSON OT Jun 10, 2020 10:12
[2020-06-10] MEDS: FLUTICASONE NASAL SPRAY (FLONASE) 16 GM BTL NS SCH ×2 (10:22→21:30)
[2020-06-10] MEDS: BACLOFEN 10 MG (LIORESAL) TAB PO PRN ×2 (10:55→17:36)
[2020-06-10] MEDS: polyethylene glycoL POWDER 17 GM (MIRALAX) PACK PO SCH ×2 (10:56→21:30)
[2020-06-10] MEDS: SENNA W/DOCUSATE (SENOKOT S) TABLET PO SCH ×2 (10:56→21:30)
[2020-06-10] MEDS: DOCUSATE SODIUM 100 MG (COLACE) CAP PO SCH ×2 (10:56→21:30)
--- NOTE | 2020-06-10 11:42 | Physical Therapy Daily Note ---
PT Daily Note-Current Subjective Pt. agrees to Rx, comments on his lack of control and strength in R LE . Hesitant to trial stairs. States he is tired today. Pain Location: No Pain Reported Mental Status Patient Orientation: Person, Place, Time, Situation Attachments: Other-See Comments (mask) Transfers SCALE: Activities may be completed with or without assistive devices. 9-Ngtvflwiok-ewlpvjh completes the activity by him/herself with no assistance from a helper. 5-Set-up or Clean-up Assistance-helper sets up or cleans up; patient completes activity. [place] assists only prior to or following the activity. 4-Supervision or Touching Assistance-helper provides verbal cues and/or touching/steadying and/or contact guard assistance as patient completes activity. Assistance may be provided throughout the activity or intermittently. 3-Partial/Moderate Assistance-helper does LESS THAN HALF the effort. [place] lifts, holds or supports trunk or limbs, but provides less than half the effort. 2-Substantial/Maximal Assistance-helper does MORE THAN HALF the effort. [place] lifts or holds trunk or limbs and provides more than half the effort. 8-Rihhslxwa-jdnrmm does ALL the effort. Patient does none of the effort to complete the activity. Or, the assistance of 2 or more helpers is required for the patient to complete the activity. If activity was not attempted, code reason: 7-Patient Refused. 9-Not Applicable-not attempted and the patient did not perform the activity before the current illness, exacerbation or injury. 10-Not Attempted due to Environmental Limitations-(lack of equipment, weather restraints, etc.). 88-Not Attempted due to Medical Conditions or Safety Concerns. Roll Left & Right (QC): 6 Sit to Lying (QC): 6 Lying to Sitting/Side of Bed(Q: 5 Sit to Stand (QC): 5 Chair/Xvy-ff-Ddbpy Xfer(QC): 5 Toilet Transfer (QC): 5 Car Transfer (QC): 6 pt. often uses LUE to assist RLE Weight Bearing Full Weight Bearing Full Weight Bearing Gait Training Does the Patient Walk?: Yes Walk 10 feet (QC): 4 Walk 50 ft with 2 Turns(QC): 4 Walk 150 ft (QC): 4 Walking 10ft/uneven surface-QC: 4 Gait Persons Needed: 1 Gait Assistive Device: FWW gait with narrow PEYMAN at times, antalgic and compensates with heavy wt bearing on UEs on FWW, still at risk for falls Stair Training Stair Training: Handrails/: uses walker #of Steps: 1 1 Step (curb) (QC): 88 4 Steps (QC): 88 12 Steps (QC): 88 Stairs: Pattern: Step to mod to min assist and instruction for all sequence and safety Balance Picking up an Object (QC): 4 (used grabber to berry picker object) Exercises Seated Therapy Exercises: Hamstring Curls, Hip abd/add Seated Reps: 20 NuStep Minutes: 15 NuStep Workload: 5 (leg stabilizer eqipment used to control R hip ER) Assessment Current Status: Good Progress Pt R leg adduction is weak performed adduction exs in supine w/ isometric holds on 10th rep to help improve adductor strength. Pt circumducts RLE to during amb to help clear leg and to accomodate for abductor weakness. Needed skilled verbal cues about step length and to push off surface during TFs. Pt TF back to bed and call light in hand and all needs met. PT Short Term Goals Short Term Goals Time Frame: Jun 02, 2020 Roll Left & Right: 4 (SBA) Sit to lyin (SBA) Lying to sitting on side of be: 4 (SBA) Sit to stand: 4 (CGA) Chair/vnr-fs-blxab transfer: 4 (min) Toilet transfer: 4 (min) Car transfer: 4 (min) Walk 10 feet: 4 (min) Walk 50 feet with two turns: 4 (min) 1 step (curb): 4 (CGA) Wheel 50ft w/2 turns: 4 Wheel 150 feet: 4 PT Implementation Project Coordinator Goals Implementation Project Coordinator Goals PT Nursing Home Goals Time Frame: Jun 16, 2020 Roll Left & Right (QC): 5 Sit to Lying (QC): 5 Lying-Sitting on Side/Bed(QC): 5 Sit to Stand (QC): 5 Chair/Ksq-mw-Wdihl Xfer(QC): 4 (CGA) Toilet Transfer (QC): 4 (CGA) Car Transfer (QC): 4 (CGA) Does the Patient Walk: Yes Walk 10 feet (QC): 4 (CGA) Walk 50ft with 2 Turns (QC): 4 (CGA) Walk 150 ft (QC): 4 (CGA) Walking 10ft on Uneven Surface: 4 (CGA) 1 Step (curb) (QC): 4 (CGA) 4 Steps (QC): 4 (CGA) 12 Steps (QC): 88 Picking up an Object (QC): 4 (CGA) Does the Pt use WC or Scooter?: Yes Wheel 50 feet with 2 turns (QC: 6 Type: Manual Wheel 150 feet: 6 Type: Manual PT Plan Problem List Problem List: Activity Tolerance, Functional Strength, Gait Treatment/Plan Treatment Plan: Continue Plan of Care Treatment Plan: Bed Mobility, Education, Functional Activity Dutch, Functional Strength, Group Therapy, Gait, Safety, Therapeutic Exercise, Transfers Treatment Duration: Jun 16, 2020 Frequency: At least 5 of 7 days/Wk (IRF) Estimated Hrs Per Day: 1.5 hours per day Patient and/or Family Agrees t: Yes Safety Risks/Education Patient Education: Gait Training, Transfer Techniques Teaching Recipient: Patient Teaching Methods: Demonstration, Discussion Response to Teaching: Verbalize Understanding, Return Demonstration Time/GCodes Time In: 1100 Time Out: 1200 Total Billed Treatment Time: 60 Total Billed Treatment 1, EX 20m, FA 15m, GT 10m AMNA [place] MANUFACTURING DEVELOPMENT ENGINEER Jun 10, 2020 11:42
--- NOTE | 2020-06-10 13:21 | Occupational Ther Daily Note ---
OT Current Status-Daily Note Subjective Pt laying in bed, agreeable to OT tx. ADL-Treatment Therapy Code Descriptions/Definitions Functional [place] Measure: 0=Not Assessed/NA 4=Minimal Assistance 1=Total Assistance 5=Supervision or Setup 2=Maximal Assistance 6=Modified [place] 3=Moderate Assistance 7=Complete IndependenceSCALE: Activities may be completed with or without assistive devices. 3-Tuiohyxuhx-rrhgghm completes the activity by him/herself with no assistance from a helper. 5-Set-up or Clean-up Assistance-helper sets up or cleans up; patient completes activity. [place] assists only prior to or following the activity. 4-Supervision or Touching Assistance-helper provides verbal cues and/or touching/steadying and/or contact guard assistance as patient completes activity. Assistance may be provided throughout the activity or intermittently. 3-Partial/Moderate Assistance-helper does LESS THAN HALF the effort. [place] lifts, holds or supports trunk or limbs, but provides less than half the effort. 2-Substantial/Maximal Assistance-helper does MORE THAN HALF the effort. [place] lifts or holds trunk or limbs and provides more than half the effort. 6-Dbkstqvfi-uipjik does ALL the effort. Patient does none of the effort to com plete the activity. Or, the assistance of 2 or more helpers is required for the patient to complete the activity. If activity was not attempted, code reason: 7-Patient Refused. 9-Not Applicable-not attempted and the patient did not perform the activity before the current illness, exacerbation or injury. 10-Not Attempted due to Environmental Limitations-(lack of equipment, weather restraints, etc.). 88-Not Attempted due to Medical Conditions or Safety Concerns. Eating (QC): 5 Other Treatment Pt in bed, finishing lunch. In order to increase RUE fine motor coordination/strength, and bilateral integration, pt completed fine motor task, removing beads from moderate resistance theraputty. Pt able to use R hand as m uch as possible to remove beads from putty, but difficulty flexing shoulder in order to place beads in container on tray table. Post tx, pt laying in bed, call light in reach and all needs met. Education OT Patient Education: Correct positioning, Modified ADL techniques, Progress toward Goal/Update tx plan, Purpose of tx/functional activities Teaching Recipient: Patient Teaching Methods: Discussion Response to Teaching: Verbalize Understanding OT Short Term Goals Short Term Goals Time Frame: Jun 02, 2020 Eatin Oral hygiene: 88 Toileting hygiene: 3 Shower/bathe self: 3 Upper body dressin Lower body dressin Putting on/taking off footwear: 3 OT Senior Care Goals Piano Accompanist Goals Time Frame: Jun 16, 2020 Eating (QC): 6 Oral Hygiene (QC): 88 Toileting Hygiene (QC): 6 Shower/Bathe Self (QC): 4 Upper Body Dressing (QC): 6 Lower Body Dressing (QC): 6 On/Off Footwear (QC): 6 Additional Goals: 1-Demonstrate ADL Tasks, 2-Verbalize Understanding, 3- ImproveStrength/Dutch 1=Demonstrate adherence to instructed precautions during ADL tasks. 2=Patient will verbalize/demonstrate understanding of assistive devices/modifications for ADL. 3=Patient will improve strength/tolerance for activity to enable patient to perform ADL's. OT Education/Plan Problem List/Assessment Assessment: Decreased Activ Tolerance, Decreased UE Strength, Impaired Bed Mobility, Impaired Coordination, Impaired Funct Balance, Impaired I ADL's, Impaired Self-Care Skills, Restricted Funct UE ROM Discharge Recommendations Plan/Recommendations: Continue POC Treatment Plan/Plan of Care Patient would benefit from OT for education, treatment and training to promote independence in ADL's, mobility, safety and/or upper extremity function for ADL's. Plan of Care: ADL Retraining, Functional Mobility, Group Exercise/Act as Ind, UE Funct Exercise/Act Treatment Duration: Jun 16, 2020 Frequency: At least 5 of 7 days/Wk (IRF) Estimated Hrs Per Day: 1.5 hours per day Agreement: Yes Rehab Potential: Fair Time/GCodes Start Time: 13:00 Stop Time: 13:30 Total Time Billed (hr/min): 30 Billed Treatment Time 1, FA 2 MILAD HENDRICKSON OT Jun 10, 2020 13:21
--- NOTE | 2020-06-10 14:35 | Physical Therapy Daily Note ---
PT Daily Note-Current Subjective Upon arrival pt is in bed and agrees to PT. Reports during amb that towel on R FWW handgrip keeps getting twisted and this irritates his wrist. DISPATCH SPECIALIST removed object to stop this from happening. Pain Location: No Pain Reported Mental Status Patient Orientation: Person, Place, Time, Situation Attachments: Other-See Comments (mask while out of room) Transfers SCALE: Activities may be completed with or without assistive devices. 1-Wktgshxrvv-yzpwiga completes the activity by him/herself with no assistance from a helper. 5-Set-up or Clean-up Assistance-helper sets up or cleans up; patient completes activity. [place] assists only prior to or following the activity. 4-Supervision or Touching Assistance-helper provides verbal cues and/or touching/steadying and/or contact guard assistance as patient completes activ ity. Assistance may be provided throughout the activity or intermittently. 3-Partial/Moderate Assistance-helper does LESS THAN HALF the effort. [place] lifts, holds or supports trunk or limbs, but provides less than half the effort. 2-Substantial/Maximal Assistance-helper does MORE THAN HALF the effort. [place] lifts or holds trunk or limbs and provides more than half the effort. 1-Kbosvcyuy-duldyk does ALL the effort. Patient does none of the effort to complete the activity. Or, the assistance of 2 or more helpers is required for the patient to complete the activity. If activity was not attempted, code reason: 7-Patient Refused. 9-Not Applicable-not attempted and the patient did not perform the activity before the current illness, exacerbation or injury. 10-Not Attempted due to Environmental Limitations-(lack of equipment, weather restraints, etc.). 88-Not Attempted due to Medical Conditions or Safety Concerns. Sit to Lying (QC): 6 Lying to Sitting/Side of Bed(Q: 5 Sit to Stand (QC): 5 needed reinforcent from DISPATCH SPECIALIST about reaching back to bed for sit-stand Weight Bearing Full Weight Bearing Full Weight Bearing Gait Training Does the Patient Walk?: Yes Distance: 85' x 1 55' x 1 30' x 1 Walk 10 feet (QC): 4 Walk 50 ft with 2 Turns(QC): 4 Gait Assistive Device: FWW Exercises Standing: Marching, Sit to Stand, Side steps Standing Reps: 10 Assessment Current Status: Good Progress Pt needed rest break after 55' on the way to the gym because of his wrist twisting and UE fatigue. When performing side steps in // bars pt struggled w/ placement of RLE but this improved w/ skilled verbal cues from DISPATCH SPECIALIST or manual assistance from DISPATCH SPECIALIST. Exs in // bars seemed to frustrate pt more as he wasn't able to place foot where he wanted t. Exs in // bars fatigued pt rapidly so pt needed prolonged rest break. Pt TF back to bed call light in hand all needs met. PT Short Term Goals Short Term Goals Time Frame: Jun 02, 2020 Roll Left & Right: 4 (SBA) Sit to lyin (SBA) Lying to sitting on side of be: 4 (SBA) Sit to stand: 4 (CGA) Chair/rpz-yy-igufu transfer: 4 (min) Toilet transfer: 4 (min) Car transfer: 4 (min) Walk 10 feet: 4 (min) Walk 50 feet with two turns: 4 (min) 1 step (curb): 4 (CGA) Wheel 50ft w/2 turns: 4 Wheel 150 feet: 4 PT Cone Cleaner Goals Retirement Goals PT [facility]one Cleaner Goals Time Frame: Jun 16, 2020 Roll Left & Right (QC): 5 Sit to Lying (QC): 5 Lying-Sitting on Side/Bed(QC): 5 Sit to Stand (QC): 5 Chair/Kti-oj-Ngkey Xfer(QC): 4 (CGA) Toilet Transfer (QC): 4 (CGA) Car Transfer (QC): 4 (CGA) Does the Patient Walk: Yes Walk 10 feet (QC): 4 (CGA) Walk 50ft with 2 Turns (QC): 4 (CGA) Walk 150 ft (QC): 4 (CGA) Walking 10ft on Uneven Surface: 4 (CGA) 1 Step (curb) (QC): 4 (CGA) 4 Steps (QC): 4 (CGA) 12 Steps (QC): 88 Picking up an Object (QC): 4 (CGA) Does the Pt use WC or Scooter?: Yes Wheel 50 feet with 2 turns (QC: 6 Type: Manual Wheel 150 feet: 6 Type: Manual PT Plan Problem List Problem List: Activity Tolerance, Functional Strength, Gait Treatment/Plan Treatment Plan: Continue Plan of Care Treatment Plan: Bed Mobility, Education, Functional Activity Dutch, Functional Strength, Group Therapy, Gait, Safety, Therapeutic Exercise, Transfers Treatment Duration: Jun 16, 2020 Frequency: At least 5 of 7 days/Wk (IRF) Estimated Hrs Per Day: 1.5 hours per day Patient and/or Family Agrees t: Yes Safety Risks/Education Patient Education: Gait Training, Correct Positioning Teaching Recipient: Patient Teaching Methods: Demonstration, Discussion Response to Teaching: Verbalize Understanding, Return Demonstration Time/GCodes Time In: 1355 Time Out: 1425 Total Billed Treatment Time: 30 Total Billed Treatment 1, EX 15m, GT 15m AMNA [place] DISPATCH SPECIALIST Jun 10, 2020 14:35
[2020-06-10 20:05] VITALS: BP 129/73
[2020-06-10] MEDS: MELATONIN 3 MG TABLET PO PRN (21:29)
[2020-06-10] MEDS: ALPRAZolam 0.25 MG (XANAX) TAB PO PRN (21:34)
[2020-06-11] MEDS ORDERED: FLUT16SP22 NS (05:16)
[2020-06-11] MEDS ORDERED: ASPI81TA64 PO (05:16)
[2020-06-11] MEDS ORDERED: SENN1TAB76 PO (05:16)
[2020-06-11] MEDS ORDERED: UMEC62.5 IH (05:16)
[2020-06-11] MEDS ORDERED: OXC5T PO (05:16)
[2020-06-11] MEDS ORDERED: GABA300S2 PO (05:16)
[2020-06-11] MEDS ORDERED: ALPR.25T PO (05:16)
[2020-06-11] MEDS ORDERED: IPRA3AMP31 INH (05:16)
[2020-06-11] MEDS ORDERED: NITR0.4T42 SL (05:16)
[2020-06-11] MEDS ORDERED: LISI20TA26 PO (05:16)
[2020-06-11] MEDS ORDERED: ONDA4TAB11 PO (05:16)
[2020-06-11] MEDS ORDERED: ZINC28PA TOP (05:16)
[2020-06-11] MEDS ORDERED: ALBU18HF2 IH (05:16)
[2020-06-11] MEDS ORDERED: GBPN600T PO (05:16)
[2020-06-11] MEDS ORDERED: SODI44SP2 (05:16)
--- NOTE | 2020-06-11 05:17 | Discharge Inst-Skilled Nursing ---
Discharge Inst-Skilled NF Reconcile Patient Problems Problems Reviewed?: Yes Patient Instructions Patient Problems: CVA COPD Debility Goal: [place] Consult/Follow Up/Orders Follow Up Appt.: [facility] rounds Skilled NF Admit to: [facility] Certification (SNF) I certify that SNF services are required to be given on an inpatient basis because of the above named patient's need for usp care on a continuing basis for the conditions(s) for which he/she was receiving inpatient hospital services prior to his/her transfer to the SNF. [facility] Facility Order: Nursing Services, Communicable Disease Specialist-Evaluate & Treat, Physical Therapy-Evaluate & Treat Oxygen Delivery Method: Room Air Discharge Diet: Cardiac Diet Resuscitation Status: Full Code New & Resume Previous Orders New Medications: Gabapentin (Gabapentin) 600 Mg Tablet 600 MG PO TID, #90 TAB Gabapentin (Gabapentin) 300 Mg/6 Ml Solution 300 MG PO TID, #90 EA Albuterol Sulfate (Ventolin Hfa) 18 Gm Hfa.aer.ad 0 GM IH Q6H PRN for SHORTNESS OF BREATH for 30 Days, GM ALPRAZolam (Xanax Tablet) 0.25 Mg Tab 0.25 MG PO Q8H PRN for ANXIETY, #30 TAB Aspirin (Children's Aspirin) 81 Mg Tab.chew 81 MG PO DAILY@0900 for 30 Days, TAB Fluticasone Propionate (Fluticasone Propionate) 16 Gm Marion.susp 0 SPRAY NS BID for 30 Days, SPRAY Ipratropium/Albuterol Sulfate (Iprat-Albut 0.5-3(2.5) mg/3 ml) 3 Ml Ampul.neb 3 ML INH RTBID for 30 Days, INHALER Lisinopril (Lisinopril) 20 Mg Tablet 20 MG PO DAILY@0900 for 30 Days, TAB Nitroglycerin (Nitroglycerin) 0.4 Mg Tab.subl 0 MG SL NEEDED PRN for chest pain for 30 Days, TAB Ondansetron (Ondansetron Odt) 4 Mg Tab.rapdis 4 MG PO Q6H PRN for NAUSEA/VOMITING-1ST LINE for 30 Days, TAB Oxycodone Hcl (Oxyir Tablet) 5 Mg Tab 5 MG PO Q4H PRN for PAIN-SEVERE (8-10), #30 TAB Sennosides/Docusate Sodium (Stool Softener-Laxative Tablet) 1 Each Tablet 1 EA PO BID for 30 Days, TAB Sodium Chloride (Deep Sea) 44 Ml [place] 0 ML NA NEEDED PRN for DRY NOSE for 30 Days, SPRAY Umeclidinium [place] (Incruse Ellipta) 62.5 Mcg Blst.w.dev 0 INH IH DAILY@0800 for 30 Days Zinc Oxide (Boudreauxs) 28 Gm Oint 0 GM TOP NEEDED PRN for RASH for 30 Days, TUBE Continued Medications: Albuterol/Ipratropium (Combivent Respimat Inhal [place]) 4 Gm Aero 1 PUFF IH QID PRN for SHORTNESS OF BREATH, INH Atorvastatin Calcium (Atorvastatin Calcium) 80 Mg Tablet 80 MG PO HS, TAB Baclofen (Baclofen) 10 Mg Tablet 10 MG PO TID PRN for MUSCLE SPASMS, TAB Budesonide/Formoterol Fumarate (Budesonide-Formoterol 80-4.5) 10.2 Gm Hfa.aer.ad 2 PUFF IH BID PRN for SHORTNESS OF BREATH, GM Clopidogrel Bisulfate (Plavix) 75 Mg Tablet 75 MG PO DAILY, TAB Discontinued Medications: Aspirin (Aspirin EC) 325 Mg Tablet.dr 325 MG PO DAILY, TAB Gabapentin (Neurontin) 300 Mg Capsule 900 MG PO TID PRN for PAIN-BREAKTHROUGH, CAP TAKES 3 (300MG) TABS Debbie Pereira Jun 11, 2020 05:16 DEBBIE PEREIRA DO Jun 11, 2020 05:17
[2020-06-11] MEDS: polyethylene glycoL POWDER 17 GM (MIRALAX) PACK PO SCH (07:39)
[2020-06-11] MEDS: SENNA W/DOCUSATE (SENOKOT S) TABLET PO SCH (07:39)
[2020-06-11] MEDS: DOCUSATE SODIUM 100 MG (COLACE) CAP PO SCH (07:39)
[2020-06-11 08:00] VITALS: BP 122/71
[2020-06-11] MEDS: CLOPIDOGREL 75 MG (PLAVIX) TABLET PO SCH (08:23)
[2020-06-11] MEDS: ASPIRIN 81 MG CHEW (CHILDREN'S ASA) PO SCH (08:23)
[2020-06-11] MEDS: lisINopril 20 MG (PRINIVIL) TABLET PO SCH (08:23)
[2020-06-11] MEDS: ENOXAPARIN 40 MG/0.4 ML (LOVENOX) SYR SC SCH (08:24)
[2020-06-11] MEDS: FLUTICASONE NASAL SPRAY (FLONASE) 16 GM BTL NS SCH (08:24)
[2020-06-11] MEDS: GABAPENTIN 300 MG (NEURONTIN) CAP PO SCH (08:24)
--- NOTE | 2020-06-11 09:21 | Therapy Team Discharge Summary ---
Therapy Discharge Summary Discharge Recommendations Date of Discharge Therapy D/C Recommendations: Residential (TCU/NH) Occupational Therapy Pt admitted to ARU with R side weakness. At PLOF, pt reports independent with bathing and dressing, although complete PLOF unknown. Upon initial evaluation, pt required set up assist eating, max A showering, min A upper body dressing, mod A lower body dressing, max A footwear and max A toileting. OT txs focused on increasing safety and independence with ADLs and functional mobility, increasing functional use of RUE/neuromuscular reeducation, and increasing BUE strength and activity tolerance. Pt made functional progress towards goals, but only attained LTG of showering. At discharge, pt required set up assistance with eating, SBA showering, set up assist upper body dressing, CGA lower body dressing, SBA footwear and min A toileting. Pt to discharge from facility on this date to SNF, d/c from OT. OT recommends continued OT services at SNF. Decreased Activ Tolerance, Decreased UE Strength, Impaired Bed Mobility, Impaired Coordination, Impaired Funct Balance, Impaired I ADL's, Impaired Self- Care Skills, Restricted Funct UE ROM PT Back Facer Goals Skilled Nursing Goals PT Back Facer Goals Time Frame: Jun 16, 2020 Roll Left to Right (QC): 5 Sit to Lying (QC): 5 Lying-Sitting on Side/Bed(QC): 5 Sit to Stand (QC): 5 Chair/Idq-bb-Odwev Xfer(QC): 4 (CGA) Car Transfer (QC): 4 (CGA) Does the Patient Walk: Yes Walk 10 feet (QC): 4 (CGA) Walk 10ft-Uneven Surface(QC): 4 (CGA) Walk 50ft with 2 Turns (QC): 4 (CGA) Walk 150 ft (QC): 4 (CGA) Does the Pt use WC or Scooter?: Yes Wheel 50 feet with 2 turns (QC: 6 1 Step (curb) (QC): 4 (CGA) 4 Steps (QC): 4 (CGA) 12 Steps (QC): 88 Picking up an Object (QC): 4 (CGA) OT Back Facer Goals Back Facer Goals Time Frame: Jun 16, 2020 Eating (QC): 6 (not met) Oral Hygiene (QC): 88 Shower/Bathe Self (QC): 4 (met) Upper Body Dressing (QC): 6 (not met) Lower Body Dressing (QC): 6 (not met) On/Off Footwear (QC): 6 (not met) Toileting Hygiene (QC): 6 (not met) Toilet/Commode Transfer (QC): 4 (CGA) Additional Goals: 1-Demonstrate ADL Tasks, 2-Verbalize Understanding, 3- ImproveStrength/Dutch 1=Demonstrate adherence to instructed precautions during ADL tasks. 2=Patient will verbalize/demonstrate understanding of assistive devices/louise fications for ADL. 3=Patient will improve strength/tolerance for activity to enable patient to perform ADL's. MILAD HENDRICKSON OT Jun 11, 2020 09:21
--- NOTE | 2020-06-11 10:45 | Discharge Summary ---
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 05/03/20 Plan: IRF protocol Monitor closely Supportive care Hope does not leave AMA 05/28/20: Monitor closely Very labile behavior 05/29/20: Monitor closely Meth use has caused labile behavior 05/30/20: CP and dyspnea monitored 05/31/20: Monitor closely Not allowed to leave the unit without staff due to what I suspect as planning to use meth 06/01/20: Monitor closely Continue treatment 06/02/20: Monitor closely Cannot go outside as he is requesting daily due to high risk for using meth 06/03/20: Monitor closely Meth use is causing all med issues and behaviors 06/04/20: Monitor CP Monitor closely 06/05/20: Doing better DC planning 06/06/20: Monitor closely Fall risk 06/07/20: Monitor closely Check labs in am 06/08/20: Monitor BP Doing better NH at DC 06/09/20: NHP Monitor closely 06/10/20: DC ML tomorrow Monitor lungs (1) CVA (cerebral vascular accident) Status: Acute (2) Methamphetamine abuse Status: Acute (3) HLD (hyperlipidemia) Status: Chronic (4) Carotid stenosis Status: Acute (5) HTN (hypertension) Status: Acute (6) Cannabis abuse Status: Acute (7) Hemiparesis of right dominant side Status: Acute (8) Very heavy cigarette smoker (40 or more per day) Status: Acute (9) Illicit drug use Status: Acute (10) Hypertension (11) COPD (chronic obstructive pulmonary disease) Discharge Summary Discharge Physical Examination Allergies: Coded Allergies: No Known Drug Allergies (Unverified , 03/13/18) Vitals & I&Os Vital Signs Date Time Temp Pulse Resp B/P (MAP) Pulse Ox O2 Delivery O2 Flow Rate FiO2 06/11/20 10:54 93 Room Air 06/11/20 08:00 36.4 68 20 122/71 (88) General Appearance: Alert, Oriented X3, Cooperative Respiratory: Clear to Auscultation Cardiovascular: Regular Rate Psych/Mental Status: Mental Status NL Hospital Course Was the Problem List Reviewed?: Yes Hospital Course: Pt had an uneventful lengthy hospital course for 17 days in inpatient rehab due to stroke recurrent type. He was able to participate in therapy. Right arm returned function but the right leg was still very weak. He met criteria for halfway placement at [facility] and pt was monitored closely by cardiology and he will have follow-up closely with that service. Labs (last 24 hrs) Laboratory Tests 05/27/20 04:15: White Blood Count 10.8, Red Blood Count 4.52, Hemoglobin 12.9L, Hematocrit 40, Mean Corpuscular Volume 89, Mean Corpuscular Hemoglobin 29, Mean Corpuscular Hemoglobin Concent 32, Red Cell Distribution Width 14.3, Platelet Count 199, Mean Platelet Volume 10.6, Immature Granulocyte % (Auto) 0, Neutrophils (%) (Auto) 58, Lymphocytes (%) (Auto) 20, Monocytes (%) (Auto) 9, Eosinophils (%) (Auto) 12H, Basophils (%) (Auto) 1, Neutrophils # (Auto) 6.3, Lymphocytes # (Auto) 2.1, Monocytes # (Auto) 1.0, Eosinophils # (Auto) 1.3H, Basophils # (Auto) 0.1, Immature Granulocyte # (Auto) 0.0, Sodium Level 138, Potassium Level 3.8, Chloride Level 102, Carbon Dioxide Level 24, Anion Gap 12, Blood Urea Nitrogen 10, Creatinine 0.81, Estimat Glomerular Filtration Rate > 60, BUN/Creatinine Ratio 12, Glucose Level 111H, Calcium Level 9.3, Corrected Calcium 9.9, Total Bilirubin 0.8, Aspartate Amino Transf (AST/SGOT) 9, Alanine Aminotransferase (ALT/SGPT) 10, Alkaline Phosphatase 64, Total Protein 6.2L, Albumin 3.3 05/30/20 00:27: Troponin I 0.028, B-Type Natriuretic Peptide 16.5 05/30/20 09:00: White Blood Count 11.9H, Red Blood Count 4.22L, Hemoglobin 12.2L, Hematocrit 38L , Mean Corpuscular Volume 90, Mean Corpuscular Hemoglobin 29, Mean Corpuscular Hemoglobin Concent 32, Red Cell Distribution Width 14.4, Platelet Count 225, Mean Platelet Volume 10.1, Immature Granulocyte % (Auto) 0, Neutrophils (%) (Auto) 67, Lymphocytes (%) (Auto) 16, Monocytes (%) (Auto) 7, Eosinophils (%) (Auto) 9, Basophils (%) (Auto) 1, Neutrophils # (Auto) 7.9H, Lymphocytes # (Auto) 1.9, Monocytes # (Auto) 0.9, Eosinophils # (Auto) 1.0H, Basophils # (Auto) 0.1, Immature Granulocyte # (Auto) 0.0, Sodium Level 140, Potassium Level 3.8, Chloride Level 106, Carbon Dioxide Level 23, Anion Gap 11, Blood Urea Nitrogen 12, Creatinine 0.75, Estimat Glomerular Filtration Rate > 60, BUN/Creatinine Ratio 16, Glucose Level 117H, Calcium Level 8.7, Corrected Calcium 9.2, Total Bilirubin 0.4, Aspartate Amino Transf (AST/SGOT) 18, Alanine Aminotransferase (ALT/SGPT) 19, Alkaline Phosphatase 69, Total Protein 6.1L, Albumin 3.4, Lactic Acid Level 1.47, Procalcitonin 0.03 06/01/20 05:40: White Blood Count 11.0, Red Blood Count 4.20L, Hemoglobin 12.1L, Hematocrit 38L, Mean Corpuscular Volume 91, Mean Corpuscular Hemoglobin 29, Mean Corpuscular Hem oglobin Concent 32, Red Cell Distribution Width 14.6H, Platelet Count 241, Mean Platelet Volume 10.3, Immature Granulocyte % (Auto) 0, Neutrophils (%) (Auto) 54, Lymphocytes (%) (Auto) 21, Monocytes (%) (Auto) 9, Eosinophils (%) (Auto) 15H, Basophils (%) (Auto) 1, Neutrophils # (Auto) 5.9, Lymphocytes # (Auto) 2.4, Monocytes # (Auto) 1.0, Eosinophils # (Auto) 1.6H, Basophils # (Auto) 0.1, Immature Granulocyte # (Auto) 0.0, Sodium Level 138, Potassium Level 4.0, Chloride Level 103, Carbon Dioxide Level 28, Anion Gap 7, Blood Urea Nitrogen 12, Creatinine 0.80, Estimat Glomerular Filtration Rate > 60, BUN/Creatinine Ratio 15, Glucose Level 123H, Calcium Level 8.6, Corrected Calcium 9.2, Total Bilirubin 0.4, Aspartate Amino Transf (AST/SGOT) 14, Alanine Aminotransferase (ALT/SGPT) 20, Alkaline Phosphatase 62, Total Protein 6.0L, Albumin 3.3, Procalcitonin 0.04, Neutrophils % (Manual) 58, Lymphocytes % (Manual) 19, Monocytes % (Manual) 9, Eosinophils % (Manual) 13, Basophils % (Manual) 1, Blood Morphology Comment NORMAL 06/04/20 14:40: Urine Opiates Screen NEGATIVE, Urine Oxycodone Screen NEGATIVE, Urine Methadone Screen NEGATIVE, Urine Propoxyphene Screen NEGATIVE, Urine Barbiturates Screen NEGATIVE, Ur Tricyclic Antidepressants Screen NEGATIVE, Urine Phencyclidine Screen NEGATIVE, Urine Amphetamines Screen NEGATIVE, Urine Methamphetamines Screen NEGATIVE, Urine Benzodiazepines Screen NEGATIVE, Urine Cocaine Screen NEGATIVE, Urine Cannabinoids Screen POSITIVEH 06/08/20 05:00: White Blood Count 18.9H, Red Blood Count 4.40, Hemoglobin 12.5L, Hematocrit 40, Mean Corpuscular Volume 91, Mean Corpuscular Hemoglobin 28, Mean Corpuscular Hemoglobin Concent 31L, Red Cell Distribution Width 14.7H, Platelet Count 280, Mean Platelet Volume 10.0, Immature Granulocyte % (Auto) 1, Neutrophils (%) (Auto) 72, Lymphocytes (%) (Auto) 13, Monocytes (%) (Auto) 7, Eosinophils (%) (Auto) 7, Basophils (%) (Auto) 1, Neutrophils # (Auto) 13.6H, Lymphocytes # (Auto) 2.5, Monocytes # (Auto) 1.3H, Eosinophils # (Auto) 1.4H, Basophils # (Auto) 0.1, Immature Granulocyte # (Auto) 0.1, Neutrophils % (Manual) 68, Lymphocytes % (Manual) 9, Monocytes % (Manual) 8, Eosinophils % (Manual) 14, Band Neutrophils 1, Blood Morphology Comment NORMAL, Sodium Level 138, Potassium Level 4.0, Chloride Level 102, Carbon Dioxide Level 26, Anion Gap 10, Blood Urea Nitrogen 14, Creatinine 0.86, Estimat Glomerular Filtration Rate > 60, BUN/Creatinine Ratio 16, Glucose Level 139H, Calcium Level 9.2, Corrected Calcium 10.0, Total Bilirubin 0.4, Aspartate Amino Transf (AST/SGOT) 18, Alanine Aminotransferase (ALT/SGPT) 29, Alkaline Phosphatase 73, Total Protein 6.5, Albumin 3.0L, Procalcitonin 0.03 Pending Labs Laboratory Tests 05/27/20 04:15: White Blood Count 10.8, Red Blood Count 4.52, Hemoglobin 12.9, Hematocrit 40, Mean Corpuscular Volume 89, Mean Corpuscular Hemoglobin 29, Mean Corpuscular Hemoglobin Concent 32, Red Cell Distribution Width 14.3, Platelet Count 199, Mean Platelet Volume 10.6, Immature Granulocyte % (Auto) 0, Neutrophils (%) (Auto) 58, Lymphocytes (%) (Auto) 20, Monocytes (%) (Auto) 9, Eosinophils (%) (Auto) 12, Basophils (%) (Auto) 1, Neutrophils # (Auto) 6.3, Lymphocytes # (Auto) 2.1, Monocytes # (Auto) 1.0, Eosinophils # (Auto) 1.3, Basophils # (Auto) 0.1, Immature Granulocyte # (Auto) 0.0, Sodium Level 138, Potassium Level 3.8, C hloride Level 102, Carbon Dioxide Level 24, Anion Gap 12, Blood Urea Nitrogen 10, Creatinine 0.81, Estimat Glomerular Filtration Rate > 60, BUN/Creatinine Ratio 12, Glucose Level 111, Calcium Level 9.3, Corrected Calcium 9.9, Total Bilirubin 0.8, Aspartate Amino Transf (AST/SGOT) 9, Alanine Aminotransferase (ALT/SGPT) 10, Alkaline Phosphatase 64, Total Protein 6.2, Albumin 3.3 05/30/20 00:27: Troponin I 0.028, B-Type Natriuretic Peptide 16.5 05/30/20 09:00: White Blood Count 11.9, Red Blood Count 4.22, Hemoglobin 12.2, Hematocrit 38, Mean Corpuscular Volume 90, Mean Corpuscular Hemoglobin 29, Mean Corpuscular Hemoglobin Concent 32, Red Cell Distribution Width 14.4, Platelet Count 225, Mean Platelet Volume 10.1, Immature Granulocyte % (Auto) 0, Neutrophils (%) (Auto) 67, Lymphocytes (%) (Auto) 16, Monocytes (%) (Auto) 7, Eosinophils (%) (Auto) 9, Basophils (%) (Auto) 1, Neutrophils # (Auto) 7.9, Lymphocytes # (Auto) 1.9, Monocytes # (Auto) 0.9, Eosinophils # (Auto) 1.0, Basophils # (Auto) 0.1, Immature Granulocyte # (Auto) 0.0, Sodium Level 140, Potassium Level 3.8, Chloride Level 106, Carbon Dioxide Level 23, Anion Gap 11, Blood Urea Nitrogen 12, Creatinine 0.75, Estimat Glomerular Filtration Rate > 60, BUN/Creatinine Ratio 16, Glucose Level 117, Calcium Level 8.7, Corrected Calcium 9.2, Total Bilirubin 0.4, Aspartate Amino Transf (AST/SGOT) 18, Alanine Aminotransferase (ALT/SGPT) 19, Alkaline Phosphatase 69, Total Protein 6.1, Albumin 3.4, Lactic Acid Level 1.47, Procalcitonin 0.03 06/01/20 05:40: White Blood Count 11.0, Red Blood Count 4.20, Hemoglobin 12.1, Hematocrit 38, Mean Corpuscular Volume 91, Mean Corpuscular Hemoglobin 29, Mean Corpuscular Hemoglobin Concent 32, Red Cell Distribution Width 14.6, Platelet Count 241, Mean Platelet Volume 10.3, Immature Granulocyte % (Auto) 0, Neutrophils (%) (Auto) 54, Lymphocytes (%) (Auto) 21, Monocytes (%) (Auto) 9, Eosinophils (%) (Auto) 15, Basophils (%) (Auto) 1, Neutrophils # (Auto) 5.9, Lymphocytes # (Auto) 2.4, Monocytes # (Auto) 1.0, Eosinophils # (Auto) 1.6, Basophils # (Auto) 0.1, Immature Granulocyte # (Auto) 0.0, Sodium Level 138, Potassium Level 4.0, Chloride Level 103, Carbon Dioxide Level 28, Anion Gap 7, Blood Urea Nitrogen 12, Creatinine 0.80, Estimat Glomerular Filtration Rate > 60, BUN/Creatinine Ratio 15, Glucose Level 123, Calcium Level 8.6, Corrected Calcium 9.2, Total Bilirubin 0.4, Aspartate Amino Transf (AST/SGOT) 14, Alanine Aminotransferase (ALT/SGPT) 20, Alkaline Phosphatase 62, Total Protein 6.0, Albumin 3.3, Procalcitonin 0.04, Neutrophils % (Manual) 58, Lymphocytes % (Manual) 19, Monocytes % (Manual) 9, Eosinophils % (Manual) 13, Basophils % (Manual) 1, Blood Morphology Comment NORMAL 06/04/20 14:40: Urine Opiates Screen NEGATIVE, Urine Oxycodone Screen NEGATIVE, Urine Methadone Screen NEGATIVE, Urine Propoxyphene Screen NEGATIVE, Urine Barbiturates Screen NEGATIVE, Ur Tricyclic Antidepressants Screen NEGATIVE, Urine Phencyclidine Screen NEGATIVE, Urine Amphetamines Screen NEGATIVE, Urine Methamphetamines Screen NEGATIVE, Urine Benzodiazepines Screen NEGATIVE, Urine Cocaine Screen NEGATIVE, Urine Cannabinoids Screen POSITIVE 06/08/20 05:00: White Blood Count 18.9, Red Blood Count 4.40, Hemoglobin 12.5, Hematocrit 40, Mean Corpuscular Volume 91, Mean Corpuscular Hemoglobin 28, Mean Corpuscular Hemoglobin Concent 31, Red Cell Distribution Width 14.7, Platelet Count 280, Mean Platelet Volume 10.0, Immature Granulocyte % (Auto) 1, Neutrophils (%) (Auto) 72, Lymphocytes (%) (Auto) 13, Monocytes (%) (Auto) 7, Eosinophils (%) (Auto) 7, Basophils (%) (Auto) 1, Neutrophils # (Auto) 13.6, Lymphocytes # (Auto) 2.5, Monocytes # (Auto) 1.3, Eosinophils # (Auto) 1.4, Basophils # (Auto) 0.1, Immature Granulocyte # (Auto) 0.1, Neutrophils % (Manual) 68, Lymphocytes % (Manual) 9, Monocytes % (Manual) 8, Eosinophils % (Manual) 14, Band Neutrophils 1, Blood Morphology Comment NORMAL, Sodium Level 138, Potassium Level 4.0, Chloride Level 102, Carbon Dioxide Level 26, Anion Gap 10, Blood Urea Nitrogen 14, Creatinine 0.86, Estimat Glomerular Filtration Rate > 60, BUN/Creatinine Ratio 16, Glucose Level 139, Calcium Level 9.2, Corrected Calcium 10.0, Total Bilirubin 0.4, Aspartate Amino Transf (AST/SGOT) 18, Alanine Aminotransferase (ALT/SGPT) 29, Alkaline Phosphatase 73, Total Protein 6.5, Albumin 3.0, Procalcitonin 0.03 Discharge Home Medications: Active Scripts Active Gabapentin 300 Mg/6 Ml Solution 300 Mg PO TID Gabapentin 600 Mg Tablet 600 Mg PO TID Boudreauxs (Zinc Oxide) 28 Gm Oint 0 Gm TOP NEEDED PRN 30 Days Ondansetron Odt (Ondansetron) 4 Mg Tab.rapdis 4 Mg PO Q6H PRN 30 Days Stool Softener-Laxative Tablet (Sennosides/Docusate Sodium) 1 Each Tablet 1 Ea PO BID 30 Days Deep Sea (Sodium Chloride) 44 Ml Garvin 0 Ml NA NEEDED PRN 30 Days Fluticasone Propionate 16 Gm Garvin.susp 0 Garvin NS BID 30 Days Xanax Tablet (Alprazolam) 0.25 Mg Tab 0.25 Mg PO Q8H PRN Oxyir Tablet (Oxycodone HCl) 5 Mg Tab 5 Mg PO Q4H PRN Children's Aspirin (Aspirin) 81 Mg Tab.chew 81 Mg PO DAILY@0900 30 Days Lisinopril 20 Mg Tablet 20 Mg PO DAILY@0900 30 Days Nitroglycerin 0.4 Mg Tab.subl 0 Mg SL NEEDED PRN 30 Days Ventolin Hfa (Albuterol Sulfate) 18 Gm Hfa.aer.ad 0 Gm IH Q6H PRN 30 Days Incruse Ellipta (Umeclidinium [place]) 62.5 Mcg Blst.w.dev 0 Inh IH DAILY@0800 30 Days Iprat-Albut 0.5-3(2.5) mg/3 ml (Ipratropium/Albuterol Sulfate) 3 Ml Ampul.neb 3 Ml INH RTBID 30 Days Reported Atorvastatin Calcium 80 Mg Tablet 80 Mg PO HS Budesonide-Formoterol 80-4.5 (Budesonide/Formoterol Fumarate) 10.2 Gm Hfa.aer.ad 2 Puff IH BID PRN Combivent Respimat Inhal Garvin (Albuterol/Ipratropium) 4 Gm Aero 1 Puff IH QID PRN Plavix (Clopidogrel Bisulfate) 75 Mg Tablet 75 Mg PO DAILY Baclofen 10 Mg Tablet 10 Mg PO TID PRN Instructions to patient/family Please see electronic discharge instructions given to patient. Diagnosis/Problems Diagnosis/Problems (1) CVA (cerebral vascular accident) Status: Acute (2) Methamphetamine abuse Status: Acute (3) HLD (hyperlipidemia) Status: Chronic (4) Carotid stenosis Status: Acute (5) HTN (hypertension) Status: Acute (6) Cannabis abuse Status: Acute (7) Hemiparesis of right dominant side Status: Acute (8) Very heavy cigarette smoker (40 or more per day) Status: Acute (9) Illicit drug use Status: Acute (10) Hypertension (11) COPD (chronic obstructive pulmonary disease) PRUDENCE BECK DO Jun 11, 2020 10:45
[2020-06-11] MEDS: UMECLIDINIUM BROMIDE (INCRUSE ELLIPTA) 7'S IH SCH (10:54)
[2020-06-11] MEDS: RT-ALBUTEROL/IPRATROPIUM 3 ML (DUONEB) VIAL INH SCH (10:54)
--- NOTE | 2020-06-11 11:46 | Therapy Team Discharge Summary ---
Therapy Discharge Summary Discharge Recommendations Date of Discharge Therapy D/C Recommendations: [facility] (TCU/NH) Physical Therapy Patient came to rehab post CVA. Upon evaluation patient performed bed mobility and supine <-> sit and sit <-> stand min assist, transfers and car transfer mod assist, ambulated 6' in the parallel bars with max/mod assist, and could propel a manual WC 150' with CGA/SBA. Patient has been performing bed mobility and transfer training, balance and endurance training, functional strengthening, gait training, and education. Patient has made some progress and has met all of his skilled nursing goals except for stairs. Now, patient performs bed mobility with independence, supine <-> sit with setup, sit <-> stand and transfers with setup, car transfer independent, ambulates 150' with a rolling walker with CGA (including 50' with at least 2 turns of 90 degrees and 10' over an uneven surface), can pickling drum operator an object from the floor with CGA/SBA using a prison keeper, and can go up and down 1 step using a rolling walker with min/mod assist. Patient is discharging from this facility today and will be discharged from PT at this time. Occupational Therapy Decreased Activ Tolerance, Decreased UE Strength, Impaired Bed Mobility, Impaired Coordination, Impaired Funct Balance, Impaired I ADL's, Impaired Self- Care Skills, Restricted Funct UE ROM PT [employer] Goals [employer]r Goals PT [employer]r Goals Time Frame: Jun 16, 2020 Roll Left to Right (QC): 5 Sit to Lying (QC): 5 Lying-Sitting on Side/Bed(QC): 5 Sit to Stand (QC): 5 Chair/Tnd-nr-Cjycp Xfer(QC): 4 (CGA) Car Transfer (QC): 4 (CGA) Does the Patient Walk: Yes Walk 10 feet (QC): 4 (CGA) Walk 10ft-Uneven Surface(QC): 4 (CGA) Walk 50ft with 2 Turns (QC): 4 (CGA) Walk 150 ft (QC): 4 (CGA) Does the Pt use WC or Scooter?: Yes Wheel 50 feet with 2 turns (QC: 6 1 Step (curb) (QC): 4 (CGA) 4 Steps (QC): 4 (CGA) 12 Steps (QC): 88 Picking up an Object (QC): 4 (CGA) OT Jail Goals [employer]el[employer] Rep[employer]r Goals Time Frame: Jun 16, 2020 Eating (QC): 6 (not met) Oral Hygiene (QC): 88 Shower/Bathe Self (QC): 4 (met) Upper Body Dressing (QC): 6 (not met) Lower Body Dressing (QC): 6 (not met) On/Off Footwear (QC): 6 (not met) Toileting Hygiene (QC): 6 (not met) Toilet/Commode Transfer (QC): 4 (CGA) Additional Goals: 1-Demonstrate ADL Tasks, 2-Verbalize Understanding, 3- ImproveStrength/Dutch 1=Demonstrate adherence to instructed precautions during ADL tasks. 2=Patient will verbalize/demonstrate understanding of assistive devices/modifications for ADL. 3=Patient will improve strength/tolerance for activity to enable patient to perform ADL's. IAN PETTY PT Jun 11, 2020 11:46
== END 2020-06-11 13:10 | DRG 57 ==
PROVIDERS: ADMIT Internal Medicine; ATTEND Internal Medicine
DX: I69.351 Hemiplegia and hemiparesis following cerebral infarction affecting right dominant side (principal); T82.868D Thrombosis due to vascular prosthetic devices, implants and grafts, subsequent encounter; I65.23 Occlusion and stenosis of bilateral carotid arteries; F15.10 Other stimulant abuse, uncomplicated; F12.10 Cannabis abuse, uncomplicated; F17.210 Nicotine dependence, cigarettes, uncomplicated; I25.10 Atherosclerotic heart disease of native coronary artery without angina pectoris; I95.9 Hypotension, unspecified; E78.00 Pure hypercholesterolemia, unspecified; E78.5 Hyperlipidemia, unspecified; I10 Essential (primary) hypertension; G62.9 Polyneuropathy, unspecified; M19.91 Primary osteoarthritis, unspecified site; H54.3 Unqualified visual loss, both eyes; F41.9 Anxiety disorder, unspecified; F32.9 Major depressive disorder, single episode, unspecified; J44.9 Chronic obstructive pulmonary disease, unspecified; B35.1 Tinea unguium; L85.3 Xerosis cutis; I25.2 Old myocardial infarction; Z95.5 Presence of coronary angioplasty implant and graft; Z79.82 Long term (current) use of aspirin
CPT/HCPCS: 36415; 71045; 71046; 80053; 80306; 83605; 83880; 84145; 84484; 85007; 85025; 85027; 93005; 94640; 94760

== ENCOUNTER 2020-08-20 19:32 | Emergency (ER) | payer OTHER ==
[~2020-08-20] VITALS: Ht 185.5 cm; Wt 80.0 kg
[~2020-08-20 19:32] MED LIST changes: +ALBU18HF2 IH; +ALPR.25T PO; +ASPI81TA64 PO; -BISACODYL 10 MG SUPP (DULCOLAX) PR PRN; -CALCIUM CARBONATE 500 MG (TUMS) TAB.CHEW PO PRN; -DOCUSATE SODIUM 100 MG (COLACE) CAP PO PRN; -FLEET ENEMA ADULT 1 EA BTL PR PRN; +FLUT16SP22 NS; +GABA300S2 PO; +GBPN600T PO; +IPRA3AMP31 INH; -LACTULOSE SYRUP 10GM/15ML (ENULOSE) 30ML UDC PO PRN; +LISI20TA26 PO; -LOPERAMIDE 2 MG (IMODIUM) TABLET PO PRN; +NITR0.4T42 SL; +ONDA4TAB11 PO; -ONDANSETRON 4 MG (ZOFRAN) ORAL DISSOLVE TAB PO PRN; +OXC5T PO; +SENN1TAB76 PO; +SODI44SP2; +UMEC62.5 IH; +ZINC28PA TOP; -diphenhydrAMINE 25 MG TAB (BENADRYL) PO PRN; -guaiFENesin/CODEINE (ROBITUSSIN AC) 10ML UDC PO PRN
[2020-08-20 19:47] LABS: BASOPHILS # (AUTO) 0.1 10^3/uL (0.0-0.1); BASOPHILS % (AUTO) 1 % (0-10); EOSINOPHILS # (AUTO) 0.7 10^3/uL (0.0-0.3); EOSINOPHILS % (AUTO) 7 % (0-10); HEMATOCRIT 40 % (40-54); HEMOGLOBIN 12.9 g/dL (13.3-17.7); LYMPHOCYTES # (AUTO) 2.7 10^3/uL (1.0-4.0); LYMPHOCYTES % (AUTO) 26 % (12-44); MEAN CORPUSCULAR HEMOGLOBIN 29 pg (25-34); MEAN CORPUSCULAR HGB CONC 32 g/dL (32-36); MEAN CORPUSCULAR VOLUME 88 fL (80-99); MEAN PLATELET VOLUME 10.5 fL (9.0-12.2); MONOCYTES # (AUTO) 0.9 10^3/uL (0.0-1.0); MONOCYTES % (AUTO) 9 % (0-12); NEUTROPHILS # (AUTO) 5.8 10^3/uL (1.8-7.8); NEUTROPHILS % (AUTO) 57 % (42-75); PLATELET COUNT 152 10^3/uL (130-400); WHITE BLOOD COUNT 10.1 10^3/uL (4.3-11.0)
--- NOTE | 2020-08-20 19:56 | ED Neurological Problem ---
General Chief Complaint: Neuro-Stroke Like Symptoms Stated Complaint: AMS Source: patient Exam Limitations: no limitations History of Present Illness Date Seen by Provider: Aug 20, 2020 Time Seen by Provider: 19:52 Initial Comments To ER by EMS from home with reports of strokelike symptoms. Patient has an extensive CVA history. Most recent CVA confirmed on MRI on 05/25/2020. He reportedly went outside to smoke a cigarette between 1845-1900PM. Upon returning back into the house he had a blank stare and would not communicate verbally with family. They called EMS. Upon their arrival upon any questioning he would blankly stare at them without any verbal response though he seemed to understand what they were saying as he would follow commands that they gave him. Timing/Duration: 1 hour Severity: moderate Associated Symptoms: denies symptoms Allergies and Home Medications Allergies Coded Allergies: No Known Drug Allergies (Unverified , 03/13/18) Home Medications ALPRAZolam 0.25 Mg Tab, 0.25 MG PO Q8H PRN for ANXIETY Prescribed by: PRUDENCE BECK on 06/11/20515 Albuterol Sulfate 18 Gm Hfa.aer.ad, 0 GM IH Q6H PRN for SHORTNESS OF BREATH Prescribed by: PRUDENCE BECK on 06/11/20515 Albuterol/Ipratropium 4 Gm Aero, 1 PUFF IH QID PRN for SHORTNESS OF BREATH, (Reported) Aspirin 81 Mg Tab.chew, 81 MG PO DAILY@0900 Prescribed by: PRUDENCE BECK on 06/11/20515 Atorvastatin Calcium 80 Mg Tablet, 80 MG PO HS, (Reported) Baclofen 10 Mg Tablet, 10 MG PO TID PRN for MUSCLE SPASMS, (Reported) Budesonide/Formoterol Fumarate 10.2 Gm Hfa.aer.ad, 2 PUFF IH BID PRN for SHORTNESS OF BREATH, (Reported) Clopidogrel Bisulfate 75 Mg Tablet, 75 MG PO DAILY, (Reported) Fluticasone Propionate 16 Gm [place].susp, 0 SPRAY NS BID Prescribed by: PRUDENCE BECK on 06/11/20515 Gabapentin 600 Mg Tablet, 600 MG PO TID Prescribed by: PRUDENCE BECK on 06/11/20515 Gabapentin 300 Mg/6 Ml Solution, 300 MG PO TID Prescribed by: PRUDENCE BECK on 06/11/20515 Ipratropium/Albuterol Sulfate 3 Ml Ampul.neb, 3 ML INH RTBID Prescribed by: PRUDENCE BECK on 06/11/20515 Lisinopril 20 Mg Tablet, 20 MG PO DAILY@0900 Prescribed by: PRUDENCE BECK on 06/11/20515 Nitroglycerin 0.4 Mg Tab.subl, 0 MG SL NEEDED PRN for chest pain Prescribed by: PRUDENCE BECK on 06/11/20515 Ondansetron 4 Mg Tab.rapdis, 4 MG PO Q6H PRN for NAUSEA/VOMITING-1ST LINE Prescribed by: PRUDENCE BECK on 06/11/20515 Oxycodone Hcl 5 Mg Tab, 5 MG PO Q4H PRN for PAIN-SEVERE (8-10) Prescribed by: PRUDENCE BECK on 06/11/20515 Sennosides/Docusate Sodium 1 Each Tablet, 1 EA PO BID Prescribed by: PRUDENCE BECK on 06/11/20515 Sodium Chloride 44 Ml [place], 0 ML NA NEEDED PRN for DRY NOSE Prescribed by: PRUDENCE BECK on 06/11/20515 Umeclidinium [place] 62.5 Mcg Blst.w.dev, 0 INH IH DAILY@0800 Prescribed by: PRUDENCE BECK on 06/11/20515 Zinc Oxide 28 Gm Oint, 0 GM TOP NEEDED PRN for RASH Prescribed by: PRUDENCE BECK on 06/11/20515 Patient Home Medication List Home Medication List Reviewed: Yes Review of Systems Review of Systems Constitutional: see HPI Eyes: No Symptoms Reported Ears, Nose, Mouth, Throat: no symptoms reported Respiratory: no symptoms reported Cardiovascular: no symptoms reported Genitourinary: no symptoms reported Musculoskeletal: no symptoms reported Skin: no symptoms reported Psychiatric/Neurological: See HPI, Cognitive Dysfunction Endocrine: No Symptoms Reported Hematologic/Lymphatic: No Symptoms Reported Past Hrkjwij-Fuekhj-Sqeqlb Hx Immunizations Up To Date Tetanus Booster (TDap): Less than 5yrs Seasonal Allergies Seasonal Allergies: No Past Medical History Surgeries: Yes (EYES;C+L SPINE;CARDIAC CATHS-STENTS X3;BILAT CAROTID ENDART;FOOT;SKIN CA) Angioplasty, Appendectomy, Cardiac, Coronary Stent, Eye Surgery, Orthopedic, Vascular Surgery Respiratory: Yes COPD Cardiac: Yes (CARDIAC CATHS-STENTS X3; BILAT CAROTID ENDARTERECTOMIES;R CAROTID STENT) Coronary Artery Disease, Heart Attack, High Cholesterol, Hypertension, Peripheral Vascular Neurological: Yes (stroke Jan 20, 2020, R sided stent placed; TIA 03/23/20) Neuropathy, Stroke, TIA Reproductive Disorders: No Sexually Transmitted Disease: No HIV/AIDS: No Genitourinary: No Gastrointestinal: Yes (HEPATITIS C--S/P TREATMENT) Hepatitis Musculoskeletal: Yes (CHRONIC NECK AND BACK PAIN-S/P C-SPINE + L-SPINE SURGERY; L FOOT FX/ORIF) Degenerate Disk Disease, Arthritis, Chronic Back Pain, Fractures Endocrine: No HEENT: Yes (READING GLASSES;EYE SURGERY CHILD) Loss of Vision: Bilateral Hearing Impairment: Hard of Hearing Cancer: Yes Skin Did You Recieve Any Treatments: Yes What Type of Treatment Did You: Surgical Intervention Psychosocial: Yes Anxiety, Violent Behavior, Depression Integumentary: Yes (SKIN CANCER-GETS BLISTERS) Recent Skin Changes Blood Disorders: No Adverse Reaction/Blood Tranf: No Family Medical History Cancer 19 FATHER (SKIN) 19 MOTHER Cancer of colon 19 MOTHER Kidney disease 19 FATHER (PASSED KIDNEY FAILURE) SOCIAL HISTORY: -ETOH--OCCASIONAL USE, HX OF HEAVY USE -DRUGS--DAILY MARIJUANA USE, ALSO METH USE. DENIES IV DRUG USE -SMOKES 2 PPD PAST SURGICAL HISTORY: -LAST CARDIAC CATH DONE HERE IN 2013--PATENT STENTS -CARDIAC CATHS WITH STENTS X 3 -BILATERAL CAROTID ENDARTERECTOMY -RIGHT CAROTID STENT 01/21/20 AT -RIGHT EYE SURGERY CHILD -CERVICAL SPINE AND LUMBAR SPINE SURGERIES -LEFT FOOT FRACTURE/ ORIF -SKIN CANCER REMOVAL -APPENDECTOMY Physical Exam Vital Signs Capillary Refill : Height, Weight, BMI Height: 6'1.00" Weight: 195lbs. 0oz. 88.462088te; 21.64 BMI Method:Actual General Appearance: WD/WN, no apparent distress, other (On arrival here he is alert and oriented, answers are very brief but they are appropriate and he can answer who the president is and where he is at correctly.) HEENT: PERRL/EOMI, normal ENT inspection Neck: non-tender, full range of motion Respiratory: no respiratory distress, no accessory muscle use Gastrointestinal: normal bowel sounds, soft Neurologic/Psychiatric: alert, normal mood/affect, oriented x 3 Crainal Nerves: normal hearing, normal speech, PERRL Coordination/Gait: normal finger to nose Motor/Sensory: no motor deficit, no sensory deficit, no pronator drift Skin: normal color, warm/dry Stroke Onset of Symptoms Date of Onset of Symptoms: Aug 20, 2020 Time of Symptom Onset: 18:45 Onset of Symptoms: Yes NIH Stroke Scale Assessment Level of Consciousness: 0=Alert (0), Level of Consciousness-Questions: 0=Answers both month/age (0), LOC Commands: 0=Performs both tasks (0), Gaze: Normal (0), Visual [place]: 0=No visual loss (0), Facial Movement (Facial Paresis): 0=Normal symmetrical mnt (0), Motor Function-Arms Right: 0=No drift (0), Motor Function-Arms Left: 0=No drift (0), Motor Function-Legs Right: 0=No drift (0), Motor Function-Legs Left: 0=No drift (0), Limb Ataxia: 0=Absent (0), Sensory: 0=Normal:no loss (0), Best Language: 0=No aphasia (0), Dysarthria: 0=Normal (0), Extinction & Inattention: 0=No abnormality (0), Total: 0 Stroke Thrombolytic Exclusion Age 18 or Over: Yes Acute intenal hemorrhage: No History of CVA: Yes Uncontrolled Coagulation Defec: No Intracranial Hemorrhage: No Severe Hypertension: No GI or Bleed: No Subarachnoid Hemorrhage: No Intracranial Neoplasm/Aneurysm: No Oral Anticoagulants: Yes Surgery or Trauma: Yes Puncture of Non-Compressible V: No Recent CPR: No Diabetic Hemorrhagic Retinopat: No Organ Biopsy: No Recent Obstetric Delivery: No Glucose: No Significant Hepatic Dysfunctio: No NIH Stoke Scale >22: No Bacterial Endocarditis: No Pericarditis: No Improving Symptoms: No Platelets: No Progress/Results/Core Measures Results/Orders Lab Results Laboratory Tests Test 08/20/20 19:37 08/20/20 19:55 Range/Units White Blood Count 10.1 4.3-11.0 10^3/uL Red Blood Count 4.53 4.30-5.52 10^6/uL Hemoglobin 12.9 L 13.3-17.7 g/dL Hematocrit 40 40-54 % Mean Corpuscular Volume 88 80-99 fL Mean Corpuscular Hemoglobin 29 25-34 pg Mean Corpuscular Hemoglobin Concent 32 32-36 g/dL Red Cell Distribution Width 15.1 H 10.0-14.5 % Platelet Count 152 130-400 10^3/uL Mean Platelet Volume 10.5 9.0-12.2 fL Immature Granulocyte % (Auto) 0 % Neutrophils (%) (Auto) 57 42-75 % Lymphocytes (%) (Auto) 26 12-44 % Monocytes (%) (Auto) 9 0-12 % Eosinophils (%) (Auto) 7 0-10 % Basophils (%) (Auto) 1 0-10 % Neutrophils # (Auto) 5.8 1.8-7.8 10^3/uL Lymphocytes # (Auto) 2.7 1.0-4.0 10^3/uL Monocytes # (Auto) 0.9 0.0-1.0 10^3/uL Eosinophils # (Auto) 0.7 H 0.0-0.3 10^3/uL Basophils # (Auto) 0.1 0.0-0.1 10^3/uL Immature Granulocyte # (Auto) 0.0 0.0-0.1 10^3/uL Prothrombin Time 14.9 H 12.2-14.7 SEC INR Comment 1.1 0.8-1.4 Activated Partial Thromboplast Time 29 24-35 SEC D-Dimer 0.90 H 0.00-0.49 UG/ML Sodium Level 141 135-145 MMOL/L Potassium Level 3.6 3.6-5.0 MMOL/L Chloride Level 107 98-107 MMOL/L Carbon Dioxide Level 27 21-32 MMOL/L Anion Gap 7 5-14 MMOL/L Blood Urea Nitrogen 12 7-18 MG/DL Creatinine 1.00 0.60-1.30 MG/DL Estimat Glomerular Filtration Rate > 60 BUN/Creatinine Ratio 12 Glucose Level 88 70-105 MG/DL Calcium Level 8.7 8.5-10.1 MG/DL Corrected Calcium 8.9 8.5-10.1 MG/DL Total Bilirubin 1.5 H 0.1-1.0 MG/DL Aspartate Amino Transf (AST/SGOT) 10 5-34 U/L Alanine Aminotransferase (ALT/SGPT) 7 0-55 U/L Alkaline Phosphatase 71 40-136 U/L Troponin I < 0.028 <0.028 NG/ML Total Protein 6.3 L 6.4-8.2 GM/DL Albumin 3.7 3.2-4.5 GM/DL Serum Alcohol < 10 <10 MG/DL Urine Color YELLOW Urine Clarity CLEAR Urine pH 6.0 5-9 Urine Specific [place] 1.025 H 1.016-1.022 Urine Protein TRACE H NEGATIVE Urine Glucose (UA) NEGATIVE NEGATIVE Urine Ketones NEGATIVE NEGATIVE Urine Nitrite NEGATIVE NEGATIVE Urine Bilirubin NEGATIVE NEGATIVE Urine Urobilinogen 2.0 < = 1.0 MG/DL Urine Leukocyte Esterase NEGATIVE NEGATIVE Urine RBC (Auto) NEGATIVE NEGATIVE Urine RBC NONE /HPF Urine WBC 0-2 /HPF Urine Squamous Epithelial Cells RARE /HPF Urine Crystals NONE /LPF Urine Bacteria TRACE /HPF Urine Casts PRESENT /LPF Urine Hyaline Casts RARE /LPF Urine Mucus SMALL H /LPF Urine Culture Indicated NO Urine Opiates Screen NEGATIVE NEGATIVE Urine Oxycodone Screen NEGATIVE NEGATIVE Urine Methadone Screen NEGATIVE NEGATIVE Urine Propoxyphene Screen NEGATIVE NEGATIVE Urine Barbiturates Screen NEGATIVE NEGATIVE Ur Tricyclic Antidepressants Screen NEGATIVE NEGATIVE Urine Phencyclidine Screen NEGATIVE NEGATIVE Urine Amphetamines Screen NEGATIVE NEGATIVE Urine Methamphetamines Screen NEGATIVE NEGATIVE Urine Benzodiazepines Screen NEGATIVE NEGATIVE Urine Cocaine Screen NEGATIVE NEGATIVE Urine Cannabinoids Screen POSITIVE H NEGATIVE My Orders Orders - SONIA CRISTOBAL APRN Cbc With Automated Diff (08/20/20 19:35) Protime With Inr (08/20/20 19:35) Partial Thromboplastin Time (08/20/20 19:35) Comprehensive Metabolic Panel (08/20/20 19:35) Fibrin Degradation Products (08/20/20 19:35) Troponin I (08/20/20 19:35) Ua Culture If Indicated (08/20/20 19:35) Chest 1 View, Ap/Pa Only (08/20/20 19:35) Ekg Tracing (08/20/20 19:35) Nothing By Mouth (08/20/20 Dinner) Accucheck Stat ONCE (08/20/20 19:35) Ed Iv/Invasive Line Start (08/20/20 19:35) Ed Iv/Invasive Line Start (08/20/20 19:35) Vital Signs Stroke Patient Q15M (08/20/20 19:35) O2 (08/20/20 19:35) Intake & Output 06,14,22 (08/20/20 19:35) Monitor-Rhythm Ecg Trace Only (08/20/20 19:35) Dysphagia Screening Tool (08/20/20 19:35) Post Thrombolytic Adminstratio (08/20/20 19:35) Lipid Panel (08/21/20 06:00) Drug Screen Stat (Urine) (08/20/20 19:37) Alcohol (08/20/20 19:37) Ct Head Wo-R/O Stroke (08/20/20 19:49) Ct Angio Head/Neck (08/20/20 20:13) Iohexol Injection (Omnipaque 350 Mg/Ml 1 (08/20/20 20:30) Received Contrast (Hold Metformin- Contr (08/20/20 20:30) Ns (Ivpb) (Sodium Chloride 0.9% Ivpb Bag (08/20/20 20:30) Initial ECG Impression Date: Aug 20, 2020 Initial ECG Impression Time: 19:58 Initial ECG Rate: 54 Initial ECG Rhythm: S.Subhash Initial ECG Intervals: Normal Initial ECG Impression: Normal Departure Communication (Admissions) NAME: CRISTI KRISHNAMURTHY [facility] REC#: [id number] PT STATUS: REG ER : 1955 PHYSICIAN: SONIA CRISTOBAL APRN ADMIT DATE: 08/20/20/ER Draft Date of Exam:08/20/20 CHEST 1 VIEW, AP/PA ONLY INDICATION: Acute mental status change. EXAMINATION: Chest 08/20/2020 COMPARISON: 05/30/2020 FINDINGS: Heart is unremarkable, pulmonary vasculature is slightly congested. Mild atelectasis versus infiltrate noted at the right lung base. There is no pneumothorax. There is a vague density in the periphery of the right midlung possibly atelectasis versus infiltrate. No effusions or pneumothorax. IMPRESSION: 1. Question mild infiltrate at the right infrahilar region and periphery of the right midlung. Followup recommended to assure resolution. Dictated on workstation # [id number] Dict: 08/20/202014 Trans: 08/20/202032 CVB [id number] Interpreted by: SAMANTHA CARRENO MD Electronically signed by: NAME: CRISTI KRISHNAMURTHY [facility] REC#: [id number] PT STATUS: REG ER : 1955 PHYSICIAN: SONIA CRISTOBAL APRN ADMIT DATE: 08/20/20/ER Draft Date of Exam:08/20/20 CT HEAD WO-R/O STROKE PROCEDURE: CT head wo r/o stroke. TECHNIQUE: Multiple contiguous axial images were obtained through the brain without the use of intravenous contrast. Auto Exposure Controls were utilized during the CT exam to meet ALARA standards for radiation dose reduction. INDICATION: Expressive aphasia for 30 minutes. EXAMINATION: CT brain without contrast 08/20/2020 COMPARISON: 04/28/2020 FINDINGS: There is an area of encephalomalacia within the right posterior parietal lobe similar to previous imaging. Other areas of diffuse chronic ischemic disease noted with encephalomalacia in the anterior left parietal lobe towards the vertex similar to prior. There is a vague area of low-density noted within the left temporal parietal lobe which could be acute to subacute in nature. There is no acute hemorrhage. No mass, mass effect or midline shift. No hydrocephalus. The calvarium intact. Paranasal sinuses and mastoid air cells demonstrate chronic disease. IMPRESSION: 1. Chronic findings as above with an age indeterminate area of low density within the left temporal parietal lobe which appears acute to subacute in nature. MRI with diffusion-weighted imaging could provide further characterization as clinically indicated. Findings called to the Emergency Room by Dr. Carreno at 8:12 PM on 08/20/2020. Dictated on workstation # [id number] Dict: 08/20/202009 Trans: 08/20/202031 CVB [id number] Interpreted by: SAMANTHA CARRENO MD Electronically signed by: . NAME: CRISTI KRISHNAMURTHY [facility] REC#: [id number] PT STATUS: REG ER : 1955 PHYSICIAN: SONIA CRISTOBAL APRN ADMIT DATE: 08/20/20/ER Draft Date of Exam:08/20/20 CT ANGIO HEAD/NECK EXAMINATION: CT angiography head and neck with and without contrast. TECHNIQUE: After intravenous administration of contrast, thin section axial CT angiography of the head and neck was performed. Source data was reformatted into 3D MIP projections. All CT scans use one or more of the following dose optimizing techniques: automated exposure control, MA and/or KvP adjustment based on a patient size and exam type, or iterative reconstruction. HISTORY: noncontrast ct abnormality, expressive aphasia intermittently COMPARISON: None available. FINDINGS: There is unchanged complete occlusion of the left common carotid artery and internal carotid artery with persistent stenosis of the petrous portion of the left internal carotid artery which is presumably filling in a retrograde fashion. There is good flow within the left middle cerebral artery. The right middle cerebral artery demonstrates normal flow as well. Normal flow is seen within the right internal carotid artery with scattered atherosclerotic disease noted. There is a stent within the internal carotid artery in the neck with internal thrombus within the right internal carotid artery stent similar to previous examination from 05/23/2020. Narrowing of the common carotid artery on the right similar to prior. Anterior cerebral arteries appear patent. The basilar artery appears patent. Posterior cerebral arteries patent. There is no aneurysmal dilatation. Vertebral arteries appear unremarkable. Delayed postcontrast imaging of the brain demonstrates no acute abnormalities. No soft tissue abnormality is seen. There are postoperative changes within the cervical region with multilevel degenerative findings.. Limited views of the superior thorax are unremarkable. IMPRESSION: 1. Occlusion of the left common carotid artery and internal carotid arteries with persistent stenosis of the petrous portion of the left internal carotid artery which is presumably filling in a retrograde fashion and stable from previous imaging. 2. Internal thrombus within the right internal carotid artery stent stable from previous imaging. 3. Chronic infarcts within the brain similar to previous imaging with no new vascular abnormalities. No aneurysm. Other findings as described above stable from previous imaging. Dictated on workstation # [id number] Dict: 08/20/202101 Trans: 08/20/202119 [facility] [id number] Interpreted by: SAMANTHA CARRENO MD Electronically signed by: 1952-patient scores a 0 on the NIH but he does have noticeable cognitive deficit in the form of expressive dysphasia. When I asked him and open-ended questions such as to explain what he did this morning he replies "the face" and other random nonsensical answers. However when I point to my watch and ask him to identify what this is he can do so correctly. When pointing to the objects on the NIH stroke scale card he can identify them. He is able to explain what is g oing on in the picture correctly. His speech is clear. This expressive dysphasia seems to be intermittent 1954 EKG shows sinus rhythm with a left bundle branch block no ectopy rate of 54 2125-remains with an NIH of 0. He does not have any apparent expressive aphasia at this time and can speak clearly to me recalling all activities of the day. I told him I would plan to admit him to the hospital for MRI in the morning and observation overnight. He shakes his head no. I asked if he was going to sign out AGAINST MEDICAL ADVICE and he states yes. He agrees to sign out AGAINST MEDICAL ADVICE after discussion of the risks which could include or permanent disability from stroke. He is insistent that he does not want to stay in the hospital. I will have him sign AGAINST MEDICAL ADVICE form. Impression Primary Impression: TIA (transient ischemic attack) Disposition: 07 AGAINST MEDICAL ADVICE Condition: Against Medical Advice Departure-Patient Inst. Referrals: YUMIKO HERNANDEZ MD (PCP) Primary Care Physician SONIA CRISTOBAL APRN Aug 20, 2020 19:56
[2020-08-20 19:59] LABS: ALBUMIN 3.7 GM/DL (3.2-4.5)
[2020-08-20 20:01] LABS: CALCIUM 8.7 MG/DL (8.5-10.1)
[2020-08-20 20:02] LABS: GLUCOSE 88 MG/DL (70-105); TOTAL PROTEIN 6.3 GM/DL (6.4-8.2)
[2020-08-20 20:03] LABS: CARBON DIOXIDE 27 MMOL/L (21-32)
[2020-08-20 20:04] LABS: BILIRUBIN,TOTAL 1.5 MG/DL (0.1-1.0)
[2020-08-20 20:05] LABS: ALKALINE PHOSPHATASE 71 U/L (40-136); GFR ESTIMATED > 60
[2020-08-20 20:07] LABS: BUN/CREATININE RATIO 12
[2020-08-20 20:08] LABS: ALANINE AMINOTRANSFERASE 7 U/L (0-55); FIBRIN DEGRADATION PRODUCTS 0.9 UG/ML (0.00-0.49); INR 1.1 (0.8-1.4)
[2020-08-20 20:17] LABS: BILIRUBIN,URINE NEGATIVE (NEGATIVE); CLARITY,URINE CLEAR; COLOR,URINE YELLOW; GLUCOSE, URINE (UA) NEGATIVE (NEGATIVE); KETONES,URINE NEGATIVE (NEGATIVE); LEUKOCYTE ESTERASE ,URINE NEGATIVE (NEGATIVE); NITRITE,URINE NEGATIVE (NEGATIVE); PROTEIN,URINE TRACE (NEGATIVE)
[2020-08-20 20:17] LABS: PROTHROMBIN TIME PATIENT 14.9 SEC (12.2-14.7)
[2020-08-20] MEDS ORDERED: HOLD METFORMIN - RECEIVED CONTRAST 20 ML VIAL IV SCH (20:30)
[2020-08-20] MEDS ORDERED: IOHEXOL 350 MG/ML 100 ML (OMNIPAQUE 350) VIAL IV ONE (20:30)
[2020-08-20] MEDS ORDERED: NS 100 ML (IVPB) BAG IV ONE (20:30)
--- NOTE | 2020-08-20 20:32 | Diagnostic Imaging Report ---
PROCEDURE: CT head wo r/o stroke. TECHNIQUE: Multiple contiguous axial images were obtained through the brain without the use of intravenous contrast. Auto Exposure Controls were utilized during the CT exam to meet ALARA standards for radiation dose reduction. INDICATION: Expressive aphasia for 30 minutes. EXAMINATION: CT brain without contrast 08/20/2020 COMPARISON: 04/28/2020 FINDINGS: There is an area of encephalomalacia within the right posterior parietal lobe similar to previous imaging. Other areas of diffuse chronic ischemic disease noted with encephalomalacia in the anterior left parietal lobe towards the vertex similar to prior. There is a vague area of low-density noted within the left temporal parietal lobe which could be acute to subacute in nature. There is no acute hemorrhage. No mass, mass effect or midline shift. No hydrocephalus. The calvarium intact. Paranasal sinuses and mastoid air cells demonstrate chronic disease. IMPRESSION: 1. Chronic findings as above with an age indeterminate area of low density within the left temporal parietal lobe which appears acute to subacute in nature. MRI with diffusion-weighted imaging could provide further characterization as clinically indicated. Findings called to the Emergency Room by Dr. Carreno at 8:12 PM on 08/20/2020. Dictated by: Dictated on workstation # [id number]
--- NOTE | 2020-08-20 20:34 | Diagnostic Imaging Report ---
INDICATION: Acute mental status change. EXAMINATION: Chest 08/20/2020 COMPARISON: 05/30/2020 FINDINGS: Heart is unremarkable, pulmonary vasculature is slightly congested. Mild atelectasis versus infiltrate noted at the right lung base. There is no pneumothorax. There is a vague density in the periphery of the right midlung possibly atelectasis versus infiltrate. No effusions or pneumothorax. IMPRESSION: 1. Question mild infiltrate at the right infrahilar region and periphery of the right midlung. Followup recommended to assure resolution. Dictated by: Dictated on workstation # [id number]
[2020-08-20 20:39] LABS: BACTERIA,URINE TRACE /HPF; HYALINE CASTS, URINE RARE /LPF; SQUAMOUS EPITHELIAL CELL,UR RARE /HPF; WBC,URINE 0-2 /HPF
[2020-08-20 21:03] LABS: CHLORIDE 107 MMOL/L (98-107); POTASSIUM 3.6 MMOL/L (3.6-5.0); SODIUM 141 MMOL/L (135-145)
[2020-08-20 21:19] LABS: AMPHETAMINE SCREEN, URINE NEGATIVE (NEGATIVE); BARBITURATE SCREEN URINE NEGATIVE (NEGATIVE); BENZODIAZEPINES SCREEN URINE NEGATIVE (NEGATIVE); CANNABINOID SCREEN, URINE POSITIVE (NEGATIVE); COCAINE SCREEN URINE NEGATIVE (NEGATIVE); METHADONE STAT NEGATIVE (NEGATIVE); METHAMPHETAMINE SCREEN URINE S NEGATIVE (NEGATIVE); OPIATE SCREEN URINE NEGATIVE (NEGATIVE); OXYCODONE STAT NEGATIVE (NEGATIVE); PROPOXYPHENE STAT NEGATIVE (NEGATIVE); TRICYCLIC ANTIDEPRESSANTS SCRE NEGATIVE (NEGATIVE)
--- NOTE | 2020-08-20 21:20 | Diagnostic Imaging Report ---
EXAMINATION: CT angiography head and neck with and without contrast. TECHNIQUE: After intravenous administration of contrast, thin section axial CT angiography of the head and neck was performed. Source data was reformatted into 3D MIP projections. All CT scans use one or more of the following dose optimizing techniques: automated exposure control, MA and/or KvP adjustment based on a patient size and exam type, or iterative reconstruction. HISTORY: noncontrast ct abnormality, expressive aphasia intermittently COMPARISON: None available. FINDINGS: There is unchanged complete occlusion of the left common carotid artery and internal carotid artery with persistent stenosis of the petrous portion of the left internal carotid artery which is presumably filling in a retrograde fashion. There is good flow within the left middle cerebral artery. The right middle cerebral artery demonstrates normal flow as well. Normal flow is seen within the right internal carotid artery with scattered atherosclerotic disease noted. There is a stent within the internal carotid artery in the neck with internal thrombus within the right internal carotid artery stent similar to previous examination from 05/23/2020. Narrowing of the common carotid artery on the right similar to prior. Anterior cerebral arteries appear patent. The basilar artery appears patent. Posterior cerebral arteries patent. There is no aneurysmal dilatation. Vertebral arteries appear unremarkable. Delayed postcontrast imaging of the brain demonstrates no acute abnormalities. No soft tissue abnormality is seen. There are postoperative changes within the cervical region with multilevel degenerative findings.. Limited views of the superior thorax are unremarkable. IMPRESSION: 1. Occlusion of the left common carotid artery and internal carotid arteries with persistent stenosis of the petrous portion of the left internal carotid artery which is presumably filling in a retrograde fashion and stable from previous imaging. 2. Internal thrombus within the right internal carotid artery stent stable from previous imaging. 3. Chronic infarcts within the brain similar to previous imaging with no new vascular abnormalities. No aneurysm. Other findings as described above stable from previous imaging. Dictated by: Dictated on workstation # [id number]
[2020-08-20 21:40] VITALS: BP 188/96
== END 2020-08-20 21:40 | disposition left against medical advice (07) ==
LOC: EDUNIT# 19:32 → ER 19:34
DX: G45.9 Transient cerebral ischemic attack, unspecified (principal); J44.9 Chronic obstructive pulmonary disease, unspecified; I25.2 Old myocardial infarction; I10 Essential (primary) hypertension; I25.10 Atherosclerotic heart disease of native coronary artery without angina pectoris; E78.00 Pure hypercholesterolemia, unspecified; G89.29 Other chronic pain; M54.9 Dorsalgia, unspecified; M54.2 Cervicalgia; F41.9 Anxiety disorder, unspecified; Z86.73 Personal history of transient ischemic attack (TIA), and cerebral infarction without residual deficits; Z79.891 Long term (current) use of opiate analgesic; Z79.01 Long term (current) use of anticoagulants; Z79.899 Other long term (current) drug therapy; Z79.82 Long term (current) use of aspirin
CPT/HCPCS: 36415; 70450; 70496; 70498; 71045; 80053; 80306; 80320; 81000; 84484; 85025; 85379; 85610; 85730; 93005; 93041

== ENCOUNTER 2020-09-25 13:30 | Outpatient (RCR) | payer OTHER ==
[~2020-09-25 13:30] MED LIST changes: -SULF1TAB35 PO; +SULF1TAB38 PO
== END 2020-10-01 10:43 | disposition home or self-care (01) ==
PROVIDERS: ATTEND Family Medicine
DX: I69.351 Hemiplegia and hemiparesis following cerebral infarction affecting right dominant side (principal); I10 Essential (primary) hypertension; F17.210 Nicotine dependence, cigarettes, uncomplicated

== ENCOUNTER 2020-09-26 20:15 | Emergency (ER) | payer OTHER ==
[~2020-09-26] VITALS: Ht 177.8 cm; Wt 75.0 kg
[2020-09-26] MEDS ORDERED: ACETAMINOPHEN 500 MG TAB (TYLENOL) PO ONE (20:30)
[2020-09-26 20:31] VITALS: BP 109/62
[2020-09-26 20:34] LABS: BASOPHILS # (AUTO) 0.1 10^3/uL (0.0-0.1); BASOPHILS % (AUTO) 1 % (0-10); EOSINOPHILS # (AUTO) 0.6 10^3/uL (0.0-0.3); EOSINOPHILS % (AUTO) 7 % (0-10); HEMATOCRIT 38 % (40-54); HEMOGLOBIN 12.8 g/dL (13.3-17.7); LYMPHOCYTES # (AUTO) 2.5 10^3/uL (1.0-4.0); LYMPHOCYTES % (AUTO) 29 % (12-44); MEAN CORPUSCULAR HEMOGLOBIN 29 pg (25-34); MEAN CORPUSCULAR HGB CONC 34 g/dL (32-36); MEAN CORPUSCULAR VOLUME 87 fL (80-99); MEAN PLATELET VOLUME 10.3 fL (9.0-12.2); MONOCYTES # (AUTO) 0.7 10^3/uL (0.0-1.0); MONOCYTES % (AUTO) 8 % (0-12); NEUTROPHILS # (AUTO) 4.7 10^3/uL (1.8-7.8); NEUTROPHILS % (AUTO) 55 % (42-75); PLATELET COUNT 221 10^3/uL (130-400); WHITE BLOOD COUNT 8.6 10^3/uL (4.3-11.0)
--- NOTE | 2020-09-26 20:38 | ED General ---
General Chief Complaint: General Problems/Pain Stated Complaint: STROKE Source of Information: Patient, EMS History of Present Illness Date Seen by Provider: Sep 26, 2020 Time Seen by Provider: 20:16 Initial Comments 65-year-old male with past medical history of stroke with right-sided weakness that is residual coming in from home via EMS due to weakness. The patient states he has had multiple falls recently over the past couple weeks due to sliding out of his wheelchair. Typically he is able to get around the house with a wheelchair and does transfer himself. Earlier he was trying to transfer and felt too weak to get out of the wheelchair so he called an ambulance. He states he has a mild headache behind his eyes that started earlier today with some general blurry vision which is not significant he says. Headache and blurry vision started around noon today. He is otherwise denying any focal weakness, numbness, speech changes, or any other concerns. EMS reports that he was able to ambulate 3 steps with their assistance. They state his blood sugar was 123. They state his heart rate was in the 40s to 50s. The patient states that this is pretty normal for him. He is otherwise denying any other acute complaints including any chest pain, shortness of breath, abdominal pain, nausea, vomiting, diarrhea, fever, chills, or any other concerns. Allergies and Home Medications Allergies Coded Allergies: No Known Drug Allergies (Unverified , 03/13/18) Home Medications ALPRAZolam 0.25 Mg Tab, 0.25 MG PO Q8H PRN for ANXIETY Prescribed by: PRUDENCE BECK on 06/11/20515 Albuterol Sulfate 18 Gm Hfa.aer.ad, 0 GM IH Q6H PRN for SHORTNESS OF BREATH Prescribed by: PRUDENCE BECK on 06/11/20515 Albuterol/Ipratropium 4 Gm Aero, 1 PUFF IH QID PRN for SHORTNESS OF BREATH, (Reported) Aspirin 81 Mg Tab.chew, 81 MG PO DAILY@0900 Prescribed by: PRUDENCE BECK on 06/11/20515 Atorvastatin Calcium 80 Mg Tablet, 80 MG PO HS, (Reported) Baclofen 10 Mg Tablet, 10 MG PO TID PRN for MUSCLE SPASMS, (Reported) Budesonide/Formoterol Fumarate 10.2 Gm Hfa.aer.ad, 2 PUFF IH BID PRN for SHORTNESS OF BREATH, (Reported) Clopidogrel Bisulfate 75 Mg Tablet, 75 MG PO DAILY, (Reported) Fluticasone Propionate 16 Gm [place].susp, 0 SPRAY NS BID Prescribed by: PRUDENCE BECK on 06/11/20515 Gabapentin 600 Mg Tablet, 600 MG PO TID Prescribed by: PRUDENCE BECK on 06/11/20515 Gabapentin 300 Mg/6 Ml Solution, 300 MG PO TID Prescribed by: PRUDENCE BECK on 06/11/20515 Ipratropium/Albuterol Sulfate 3 Ml Ampul.neb, 3 ML INH RTBID Prescribed by: PRUDENCE BECK on 06/11/20515 Lisinopril 20 Mg Tablet, 20 MG PO DAILY@0900 Prescribed by: PRUDENCE BECK on 06/11/20515 Nitroglycerin 0.4 Mg Tab.subl, 0 MG SL NEEDED PRN for chest pain Prescribed by: PRUDENCE BECK on 06/11/20515 Ondansetron 4 Mg Tab.rapdis, 4 MG PO Q6H PRN for NAUSEA/VOMITING-1ST LINE Prescribed by: PRUDENCE BECK on 06/11/20515 Oxycodone Hcl 5 Mg Tab, 5 MG PO Q4H PRN for PAIN-SEVERE (8-10) Prescribed by: PRUDENCE BECK on 06/11/20515 Sennosides/Docusate Sodium 1 Each Tablet, 1 EA PO BID Prescribed by: PRUDENCE BECK on 06/11/20515 Sodium Chloride 44 Ml [place], 0 ML NA NEEDED PRN for DRY NOSE Prescribed by: PRUDENCE BECK on 06/11/20515 Umeclidinium [place] 62.5 Mcg Blst.w.dev, 0 INH IH DAILY@0800 Prescribed by: PRUDENCE BECK on 06/11/20515 Zinc Oxide 28 Gm Oint, 0 GM TOP NEEDED PRN for RASH Prescribed by: PRUDENCE BECK on 06/11/20515 Patient Home Medication List Home Medication List Reviewed: Yes Review of Systems Review of Systems Constitutional: No no symptoms reported, No fever EENTM: blurred vision Respiratory: No cough, No short of breath Cardiovascular: No chest pain Gastrointestinal: No abdominal pain, No nausea, No vomiting Genitourinary: No dysuria Musculoskeletal: No back pain, No joint pain Skin: No rash Psychiatric/Neurological: Headache; Denies Numbness, Denies Paresthesia Hematologic/Lymphatic: No Symptoms Reported Immunological/Allergic: no symptoms reported All Other Systems Reviewed Negative Unless Noted: Yes Past Jwifqwh-Uzugjr-Wvqdpe Hx Patient Social History Tobacco Use?: Yes Immunizations Up To Date Tetanus Booster (TDap): Less than 5yrs Seasonal Allergies Seasonal Allergies: No Past Medical History Surgeries: Yes (EYES;C+L SPINE;CARDIAC CATHS-STENTS X3;BILAT CAROTID ENDART;FOOT;SKIN CA) Angioplasty, Appendectomy, Cardiac, Coronary Stent, Eye Surgery, Orthopedic, Vascular Surgery Respiratory: Yes COPD Cardiac: Yes (CARDIAC CATHS-STENTS X3; BILAT CAROTID ENDARTERECTOMIES;R CAROTID STENT) Coronary Artery Disease, Heart Attack, High Cholesterol, Hypertension, Peripheral Vascular Neurological: Yes (stroke Jan 20, 2020, R sided stent placed; TIA 03/23/20) Neuropathy, Stroke, TIA Reproductive Disorders: No Sexually Transmitted Disease: No HIV/AIDS: No Genitourinary: No Gastrointestinal: Yes (HEPATITIS C--S/P TREATMENT) Hepatitis Musculoskeletal: Yes (CHRONIC NECK AND BACK PAIN-S/P C-SPINE + L-SPINE SURGERY; L FOOT FX/ORIF) Degenerate Disk Disease, Arthritis, Chronic Back Pain, Fractures Endocrine: No HEENT: Yes (READING GLASSES;EYE SURGERY CHILD) Loss of Vision: Bilateral Hearing Impairment: Hard of Hearing Cancer: Yes Skin Did You Recieve Any Treatments: Yes What Type of Treatment Did You: Surgical Intervention Psychosocial: Yes Anxiety, Violent Behavior, Depression Integumentary: Yes (SKIN CANCER-GETS BLISTERS) Recent Skin Changes Blood Disorders: No Adverse Reaction/Blood Tranf: No Family Medical History Cancer 19 FATHER (SKIN) 19 MOTHER Cancer of colon 19 MOTHER Kidney disease 19 FATHER (PASSED KIDNEY FAILURE) SOCIAL HISTORY: -ETOH--OCCASIONAL USE, HX OF HEAVY USE -DRUGS--DAILY MARIJUANA USE, ALSO METH USE. DENIES IV DRUG USE -SMOKES 2 PPD PAST SURGICAL HISTORY: -LAST CARDIAC CATH DONE HERE IN 2013--PATENT STENTS -CARDIAC CATHS WITH STENTS X 3 -BILATERAL CAROTID ENDARTERECTOMY -RIGHT CAROTID STENT 01/21/20 AT -RIGHT EYE SURGERY CHILD -CERVICAL SPINE AND LUMBAR SPINE SURGERIES -LEFT FOOT FRACTURE/ ORIF -SKIN CANCER REMOVAL -APPENDECTOMY Physical Exam Vital Signs Vital Signs - First Documented 09/26/20 20:18 Temp 37.1 Pulse 48 Resp 20 B/P (MAP) 126/76 (93) Pulse Ox 96 O2 Delivery Room Air Capillary Refill : Height, Weight, BMI Height: 6'1.00" Weight: 195lbs. 0oz. [id number]; 23.00 BMI Method:Actual General Appearance: No Apparent Distress, WD/WN Eyes: Bilateral Eye Normal Inspection, Bilateral Eye PERRL, Bilateral Eye EOMI HEENT: PERRL/EOMI, TMs Normal, Normal ENT Inspection, Pharynx Normal Neck: Full Range of Motion, Normal Inspection, Non Tender, Supple Respiratory: Chest Non Tender, Lungs Clear, Normal Breath Sounds, No Accessory Muscle Use, No Respiratory Distress Cardiovascular: No Murmur, Normal Peripheral Pulses, Bradycardia Gastrointestinal: Normal Bowel Sounds, Non Tender, Soft; No Distended, No Guarding Back: Normal Inspection, No CVA Tenderness, No Vertebral Tenderness Extremity: Normal Capillary Refill, Normal Inspection, Normal Range of Motion, Non Tender, No Calf Tenderness Neurologic/Psychiatric: Alert, Oriented x3, No Motor/Sensory Deficits, Normal Mood/Affect, flight engineer II-XII Norm as Tested, Other (Normal cbgkuk-[id number]-crrc, weak on the right arm and leg compared to the left, normal visual waterman and visual acuity) Skin: Normal Color, Warm/Dry Lymphatic: No Adenopathy Progress/Results/Core Measures Suspected Sepsis SIRS Temperature: Pulse: 48 Respiratory Rate: 16 Laboratory Tests 09/26/20 20:18: White Blood Count 8.6 Blood Pressure 109 /62 Mean: Laboratory Tests 09/26/20 20:18: Creatinine 0.86, INR Comment 1.1, Platelet Count 221, Total Bilirubin 0.8 Results/Orders Lab Results Laboratory Tests Test 09/26/20 20:18 09/26/20 20:45 Range/Units White Blood Count 8.6 4.3-11.0 10^3/uL Red Blood Count 4.40 4.30-5.52 10^6/uL Hemoglobin 12.8 L 13.3-17.7 g/dL Hematocrit 38 L 40-54 % Mean Corpuscular Volume 87 80-99 fL Mean Corpuscular Hemoglobin 29 25-34 pg Mean Corpuscular Hemoglobin Concent 34 32-36 g/dL Red Cell Distribution Width 14.7 H 10.0-14.5 % Platelet Count 221 130-400 10^3/uL Mean Platelet Volume 10.3 9.0-12.2 fL Immature Granulocyte % (Auto) 0 % Neutrophils (%) (Auto) 55 42-75 % Lymphocytes (%) (Auto) 29 12-44 % Monocytes (%) (Auto) 8 0-12 % Eosinophils (%) (Auto) 7 0-10 % Basophils (%) (Auto) 1 0-10 % Neutrophils # (Auto) 4.7 1.8-7.8 10^3/uL Lymphocytes # (Auto) 2.5 1.0-4.0 10^3/uL Monocytes # (Auto) 0.7 0.0-1.0 10^3/uL Eosinophils # (Auto) 0.6 H 0.0-0.3 10^3/uL Basophils # (Auto) 0.1 0.0-0.1 10^3/uL Immature Granulocyte # (Auto) 0.0 0.0-0.1 10^3/uL Prothrombin Time 14.1 12.2-14.7 SEC INR Comment 1.1 0.8-1.4 Activated Partial Thromboplast Time 28 24-35 SEC Sodium Level 140 135-145 MMOL/L Potassium Level 3.4 L 3.6-5.0 MMOL/L Chloride Level 107 98-107 MMOL/L Carbon Dioxide Level 26 21-32 MMOL/L Anion Gap 7 5-14 MMOL/L Blood Urea Nitrogen 10 7-18 MG/DL Creatinine 0.86 0.60-1.30 MG/DL Estimat Glomerular Filtration Rate 90 BUN/Creatinine Ratio 12 Glucose Level 103 70-105 MG/DL Glucometer 100 70-110 MG/DL Calcium Level 8.9 8.5-10.1 MG/DL Corrected Calcium 9.5 8.5-10.1 MG/DL Total Bilirubin 0.8 0.1-1.0 MG/DL Aspartate Amino Transf (AST/SGOT) 10 5-34 U/L Alanine Aminotransferase (ALT/SGPT) 12 0-55 U/L Alkaline Phosphatase 67 40-136 U/L Troponin I 0.056 H <0.028 NG/ML Total Protein 5.8 L 6.4-8.2 GM/DL Albumin 3.2 3.2-4.5 GM/DL Urine Color YELLOW Urine Clarity CLEAR Urine pH 6.0 5-9 Urine Specific [place] >=1.030 1.016-1.022 Urine Protein NEGATIVE NEGATIVE Urine Glucose (UA) NEGATIVE NEGATIVE Urine Ketones NEGATIVE NEGATIVE Urine Nitrite NEGATIVE NEGATIVE Urine Bilirubin 1+ H NEGATIVE Urine Urobilinogen 1.0 < = 1.0 MG/DL Urine Leukocyte Esterase NEGATIVE NEGATIVE Urine RBC (Auto) NEGATIVE NEGATIVE Urine RBC NONE /HPF Urine WBC 0-2 /HPF Urine Squamous Epithelial Cells RARE /HPF Urine Crystals NONE /LPF Urine Bacteria TRACE /HPF Urine Casts PRESENT /LPF Urine Hyaline Casts 0-2 H /LPF Urine Mucus MODERATE H /LPF Urine Culture Indicated NO Urine Opiates Screen NEGATIVE NEGATIVE Urine Oxycodone Screen NEGATIVE NEGATIVE Urine Methadone Screen NEGATIVE NEGATIVE Urine Propoxyphene Screen NEGATIVE NEGATIVE Urine Barbiturates Screen NEGATIVE NEGATIVE Ur Tricyclic Antidepressants Screen NEGATIVE NEGATIVE Urine Phencyclidine Screen NEGATIVE NEGATIVE Urine Amphetamines Screen NEGATIVE NEGATIVE Urine Methamphetamines Screen NEGATIVE NEGATIVE Urine Benzodiazepines Screen NEGATIVE NEGATIVE Urine Cocaine Screen NEGATIVE NEGATIVE Urine Cannabinoids Screen POSITIVE H NEGATIVE My Orders Orders - VAZQUEZ TIAN MD Cbc With Automated Diff (09/26/20 20:25) Protime With Inr (09/26/20 20:25) Partial Thromboplastin Time (09/26/20 20:25) Comprehensive Metabolic Panel (09/26/20 20:25) Troponin I (09/26/20 20:25) Ua Culture If Indicated (09/26/20 20:25) Chest 1 View, Ap/Pa Only (09/26/20 20:25) Ekg Tracing (09/26/20 20:25) Accucheck Stat ONCE (09/26/20 20:25) Ed Iv/Invasive Line Start (09/26/20 20:25) Vital Signs Stroke Patient Q15M (09/26/20 20:25) Monitor-Rhythm Ecg Trace Only (09/26/20 20:25) Dysphagia Screening Tool (09/26/20 20:25) Acetaminophen Tablet (Tylenol Tablet) (09/26/20 20:30) Ct Head/Cervical Spine Wo (09/26/20 20:25) Ekg Tracing (09/26/20 21:05) Potassium Chloride (Tablet) (K Dur Table (09/26/20 21:15) Drug Screen Stat (Urine) (09/26/20 21:11) Medications Given in ED Current Medications Medications Dose Ordered Sig/Lindsey Route Start Time Stop Time Status Last Admin Dose Admin Acetaminophen 1,000 mg ONCE ONCE PO 09/26/20 20:30 09/26/20 20:31 DC 09/26/20 20:46 1,000 MG Potassium Chloride 20 meq ONCE ONCE PO 09/26/20 21:15 09/26/20 21:16 DC 09/26/20 21:22 20 MEQ Vital Signs/I&O 09/26/20 09/26/20 09/26/20 20:18 20:31 22:20 Temp 37.1 Pulse 48 48 46 Resp 20 16 20 B/P (MAP) 126/76 (93) 109/62 173/95 Pulse Ox 96 97 99 O2 Delivery Room Air Room Air Capillary Refill : Point of Care Testing Finger Stick Blood Glucose: 100 Progress Note : Progress Note 65-year-old male with above history coming in due to generalized weakness. ABCs were intact and vitals are stable on presentation although he is bradycardic to the 40s. On review of his chart he previously has been in the 50s, but he states he is in the 40s at times. Blood pressure is normal so this is likely asymptomatic bradycardia at this time. EKG with nonspecific repolarization abnormalities and signs of LVH with no signs of ischemia. He had no focal neurologic deficits on arrival other than his previous right-sided weakness which was unchanged. Although he was stating he had blurry vision, his visual acuity and peripheral waterman were normal on my exam. He had a mild headache for which she was given Tylenol. He has had some falls at home in the past couple days so a CT of his head and cervical spine were ordered. On my interpretation I do not see any obvious bleeding or fracture. Basic labs were ordered as well as troponin given his weakness. Troponin is slightly elevated. Potassium is just below normal which she was given oral replacement. Given his elevated troponin, repeat EKG and repeat troponin were ordered. He is not having chest pain at this time, but states he had a "twinge" of it earlier today now that he thinks about it. He has had full dose aspirin and Plavix as of this morning. We will not give him a repeat dose at this time. Given his lack of chest pain at this time will not start him on ACS protocol including heparin. Will defer that at this time. Called and discussed this case with Dr. Beck who is willing to accept him under observation status to [facility] as they have a bed available. At the time of his disposition, he was in stable condition. ECG Initial ECG Impression Date: Sep 26, 2020 Initial ECG Impression Time: 20:17 Initial ECG Rate: 44 Comment Sinus tachycardia with a rate of 44, narrow QRS, normal axis, signs of LVH with repolarization abnormalities Diagnostic Imaging Diagonstic Imaging: Xray Comments Chest x-ray without any obvious pneumonia Diagonstic Imaging: CT Comments CT head and cervical spine without any obvious fracture or brain bleed. Departure Impression Primary Impression: NSTEMI (non-ST elevated myocardial infarction) Additional Impressions: Weakness CAD (coronary artery disease) Qualified Codes: I25.10 - Atherosclerotic heart disease of lummi coronary artery without angina pectoris CVA (cerebral vascular accident) Qualified Codes: I63.9 - Cerebral infarction, unspecified Disposition: XFER SHT-TRM HOSP Condition: Stable Transfer Transfer Reason: Diversion (No beds currently) Time Spoke to Accepting Phy: 21:10 Transfer Progress Notes Spoke with Dr. Beck regarding transfer and she excepted patient to [facility] given they have beds at this time Transfer Time: 22:20 Transfer Facility: [facility] Method of Transfer: EMS Departure-Patient Inst. Referrals: YUMIKO HERNANDEZ MD (PCP/Family) Primary Care Physician VAZQUEZ TIAN MD Sep 26, 2020 20:38
[2020-09-26 20:43] LABS: INR 1.1 (0.8-1.4); PROTHROMBIN TIME PATIENT 14.1 SEC (12.2-14.7)
[2020-09-26 20:47] LABS: ALBUMIN 3.2 GM/DL (3.2-4.5); BILIRUBIN,TOTAL 0.8 MG/DL (0.1-1.0); CALCIUM 8.9 MG/DL (8.5-10.1); CREATININE SERUM 0.86 MG/DL (0.60-1.30); POTASSIUM 3.4 MMOL/L (3.6-5.0); TOTAL PROTEIN 5.8 GM/DL (6.4-8.2)
[2020-09-26 20:48] LABS: CLARITY,URINE CLEAR; COLOR,URINE YELLOW; GLUCOSE, URINE (UA) NEGATIVE (NEGATIVE); KETONES,URINE NEGATIVE (NEGATIVE); LEUKOCYTE ESTERASE ,URINE NEGATIVE (NEGATIVE); NITRITE,URINE NEGATIVE (NEGATIVE); PROTEIN,URINE NEGATIVE (NEGATIVE)
[2020-09-26 20:52] LABS: BILIRUBIN,URINE 1+ (NEGATIVE)
[2020-09-26 20:54] LABS: BACTERIA,URINE TRACE /HPF; HYALINE CASTS, URINE 0-2 /LPF; SQUAMOUS EPITHELIAL CELL,UR RARE /HPF; WBC,URINE 0-2 /HPF
--- NOTE | 2020-09-26 21:14 | Diagnostic Imaging Report ---
PROCEDURE: CT head and CT cervical spine without contrast. TECHNIQUE: Multiple contiguous axial images were obtained through the brain and cervical spine without the use of intravenous contrast. Sagittal and coronal reformations through the cervical spine were then performed. Auto Exposure Controls were utilized during the CT exam to meet ALARA standards for radiation dose reduction. INDICATION: Trauma with head and neck injury. COMPARISON: Study of 08/20/2020. FINDINGS: CT head: Similar to the previous study, there is encephalomalacia in the high left frontal lobe as well as the right parietal lobe. There is no evidence of new hemorrhage or new infarction. No abnormal mass effect or shift of midline structures is identified. Calvarium is intact. The visualized paranasal sinuses are clear. IMPRESSION: Areas of chronic encephalomalacia involving the cerebral hemispheres, bilaterally, without CT evidence of acute intracranial abnormality. CT cervical spine: Once again, there is reversal of the cervical lordosis with anterior fusion from C4 through C6. Endplate spurring and degenerative facet arthropathy is similar to the previous study. There are postoperative changes within the vessels of the neck with apparent stenting of the right internal carotid artery. IMPRESSION: Postoperative and degenerative findings in the cervical spine without CT evidence of acute cervical spinal abnormality. Dictated by: Dictated on workstation # [id number]
[2020-09-26] MEDS ORDERED: KCL 20 MEQ TAB (K-DUR) PO ONE (21:15)
--- NOTE | 2020-09-26 21:20 | Diagnostic Imaging Report ---
INDICATION: Trauma. EXAMINATION: AP view of the chest was obtained. COMPARISON: Study of 08/20/2020. FINDINGS: Overall heart size and pulmonary vascularity are within normal limits. There is no evidence of pneumothorax or consolidation. Mediastinal configuration has remained stable. IMPRESSION: No evidence of acute abnormality or adverse change. Dictated by: Dictated on workstation # [id number]
[2020-09-26 21:28] LABS: AMPHETAMINE SCREEN, URINE NEGATIVE (NEGATIVE); BARBITURATE SCREEN URINE NEGATIVE (NEGATIVE); BENZODIAZEPINES SCREEN URINE NEGATIVE (NEGATIVE); CANNABINOID SCREEN, URINE POSITIVE (NEGATIVE); COCAINE SCREEN URINE NEGATIVE (NEGATIVE); METHADONE STAT NEGATIVE (NEGATIVE); METHAMPHETAMINE SCREEN URINE S NEGATIVE (NEGATIVE); OPIATE SCREEN URINE NEGATIVE (NEGATIVE); OXYCODONE STAT NEGATIVE (NEGATIVE); PROPOXYPHENE STAT NEGATIVE (NEGATIVE); TRICYCLIC ANTIDEPRESSANTS SCRE NEGATIVE (NEGATIVE)
[2020-09-26 22:20] VITALS: BP 173/95
== END 2020-09-26 22:20 | disposition short-term general hospital (02) ==
LOC: EDUNIT# 20:15 → ER 20:16
DX: I21.4 Non-ST elevation (NSTEMI) myocardial infarction (principal); I25.10 Atherosclerotic heart disease of native coronary artery without angina pectoris; I63.9 Cerebral infarction, unspecified; J44.9 Chronic obstructive pulmonary disease, unspecified; I25.2 Old myocardial infarction; I10 Essential (primary) hypertension; E78.00 Pure hypercholesterolemia, unspecified; G89.29 Other chronic pain; M54.9 Dorsalgia, unspecified; F41.9 Anxiety disorder, unspecified; Z86.73 Personal history of transient ischemic attack (TIA), and cerebral infarction without residual deficits; Z79.82 Long term (current) use of aspirin; Z79.899 Other long term (current) drug therapy; Z79.891 Long term (current) use of opiate analgesic; Z79.01 Long term (current) use of anticoagulants
CPT/HCPCS: 36415; 70450; 71045; 72125; 80053; 80306; 81000; 82947; 84484; 85025; 85610; 85730; 93005; 93041

== ENCOUNTER 2020-10-18 21:14 | Inpatient (IN) | payer OTHER, MEDICARE ==
[~2020-10-18] VITALS: Ht 185.4 cm; Wt 72.4 kg
--- NOTE | 2020-10-18 21:38 | Diagnostic Imaging Report ---
PROCEDURE: CT head w/o r/o stroke. TECHNIQUE: Multiple contiguous axial images were obtained through the brain without the use of intravenous contrast. Auto Exposure Controls were utilized during the CT exam to meet ALARA standards for radiation dose reduction. INDICATION: STROKE, neurologic deficit. COMPARISON: 09/26/2020. FINDINGS: Mild atrophy. Encephalomalacia within the high left frontal lobe as well as the right parieto-occipital lobe is again identified, appearing stable. Ex vacuo dilatation of the left frontal horn is again seen. No intracranial hemorrhage. No midline shift, herniation, obstructive hydrocephalus or suspicious extra-axial fluid collection. No definite CT evidence of an acute ischemic infarction. The orbits are unremarkable. Periventricular and subcortical white matter hypodensities are present, most consistent with mild background chronic small vessel white matter ischemic disease. The paranasal sinuses are clear. The calvarium and extracalvarial soft tissues are unremarkable. IMPRESSION: 1. Stable appearing examination without acute intracranial abnormality. 2. Significant background chronic ischemic changes are again identified, including prominent regions of encephalomalacia within the left frontal lobe and right parieto-occipital lobe. 3. Should symptoms persist, consideration for an MRI of the brain could be made. Dictated by: Dictated on workstation # [id number]
[2020-10-18 21:55] LABS: BASOPHILS # (AUTO) 0.1 10^3/uL (0.0-0.1); BASOPHILS % (AUTO) 0 % (0-10); EOSINOPHILS # (AUTO) 0.3 10^3/uL (0.0-0.3); EOSINOPHILS % (AUTO) 2 % (0-10); HEMATOCRIT 48 % (40-54); HEMOGLOBIN 15.2 g/dL (13.3-17.7); LYMPHOCYTES # (AUTO) 1.4 10^3/uL (1.0-4.0); LYMPHOCYTES % (AUTO) 9 % (12-44); MEAN CORPUSCULAR HEMOGLOBIN 29 pg (25-34); MEAN CORPUSCULAR HGB CONC 32 g/dL (32-36); MEAN CORPUSCULAR VOLUME 91 fL (80-99); MEAN PLATELET VOLUME 10.2 fL (9.0-12.2); MONOCYTES # (AUTO) 0.9 10^3/uL (0.0-1.0); MONOCYTES % (AUTO) 6 % (0-12); NEUTROPHILS # (AUTO) 13.2 10^3/uL (1.8-7.8); NEUTROPHILS % (AUTO) 83 % (42-75); PLATELET COUNT 227 10^3/uL (130-400); WHITE BLOOD COUNT 15.9 10^3/uL (4.3-11.0)
[2020-10-18 22:08] LABS: BILIRUBIN,URINE 1+ (NEGATIVE); CLARITY,URINE SL CLOUDY; COLOR,URINE YELLOW; GLUCOSE, URINE (UA) TRACE (NEGATIVE); KETONES,URINE TRACE (NEGATIVE); LEUKOCYTE ESTERASE ,URINE NEGATIVE (NEGATIVE); NITRITE,URINE NEGATIVE (NEGATIVE); PH,URINE 6.5 (5-9); PROTEIN,URINE 2+ (NEGATIVE)
[2020-10-18 22:08] LABS: ALBUMIN 4.1 GM/DL (3.2-4.5); CHLORIDE 105 MMOL/L (98-107); POTASSIUM 4.3 MMOL/L (3.6-5.0); SODIUM 141 MMOL/L (135-145)
[2020-10-18 22:10] LABS: GLUCOSE 131 MG/DL (70-105)
[2020-10-18 22:11] LABS: CARBON DIOXIDE 24 MMOL/L (21-32); EOSINOPHILS % (MANUAL) 2 %; FIBRIN DEGRADATION PRODUCTS 0.54 UG/ML (0.00-0.49); LYMPHOCYTES % (MANUAL) 11 %; MONOCYTES % (MANUAL) 7 %; NEUTROPHILS % (MANUAL) 80 %; PROTHROMBIN TIME PATIENT 13.6 SEC (12.2-14.7); RBC MORPH NORMAL; TOTAL PROTEIN 7.3 GM/DL (6.4-8.2)
[2020-10-18 22:14] LABS: ALKALINE PHOSPHATASE 72 U/L (40-136); CREATININE SERUM 1.31 MG/DL (0.60-1.30); GFR ESTIMATED 55
[2020-10-18 22:15] LABS: BUN/CREATININE RATIO 11
[2020-10-18 22:17] LABS: ALANINE AMINOTRANSFERASE 15 U/L (0-55)
[2020-10-18 22:19] LABS: BACTERIA,URINE FEW /HPF; HYALINE CASTS, URINE 25-50 /LPF
[2020-10-18] MEDS: CATHETER FLUSH 10 ML SYR IV PRN ×2 (22:23→23:38)
[2020-10-18 22:24] LABS: AMPHETAMINE SCREEN, URINE NEGATIVE (NEGATIVE); BARBITURATE SCREEN URINE NEGATIVE (NEGATIVE); BENZODIAZEPINES SCREEN URINE NEGATIVE (NEGATIVE); CANNABINOID SCREEN, URINE POSITIVE (NEGATIVE); COCAINE SCREEN URINE NEGATIVE (NEGATIVE); METHADONE STAT NEGATIVE (NEGATIVE); METHAMPHETAMINE SCREEN URINE S NEGATIVE (NEGATIVE); OPIATE SCREEN URINE NEGATIVE (NEGATIVE); OXYCODONE STAT NEGATIVE (NEGATIVE); PROPOXYPHENE STAT NEGATIVE (NEGATIVE); TRICYCLIC ANTIDEPRESSANTS SCRE NEGATIVE (NEGATIVE)
[2020-10-18] MEDS ORDERED: IOHEXOL 350 MG/ML 100 ML (OMNIPAQUE 350) VIAL IV ONE (22:30)
[2020-10-18] MEDS ORDERED: NS 100 ML (IVPB) BAG IV ONE (22:30)
[2020-10-18] MEDS ORDERED: HOLD METFORMIN - RECEIVED CONTRAST 20 ML VIAL IV SCH (22:30)
--- NOTE | 2020-10-18 22:41 | Diagnostic Imaging Report ---
INDICATION: CVA, altered mental status. EXAMINATION: Portable erect AP chest at 10:34 p.m. FINDINGS: The heart size is within normal limits and stable when compared to 09/26/2020. The right hilum is somewhat prominent but no different than on the prior study. The lungs remain generally clear. There is no evidence for pneumonia or for a pleural effusion. The mediastinum is not widened. The osseous structures are intact. Orthopedic hardware is again seen overlying the cervical spine. IMPRESSION: Stable chest. There has been no adverse change since the prior exam. Dictated by: Dictated on workstation # [id number]
--- NOTE | 2020-10-18 22:58 | Diagnostic Imaging Report ---
PROCEDURE: CT angiography of the head and CT angiography of the neck with and without contrast. TECHNIQUE: Contiguous noncontrast images were obtained from the skull base through the vertex. After intravenous contrast administration, helical CT angiography of the neck was performed. Source data was reformatted into 3D MIP projections. Delayed post contrast acquisition was also obtained. Auto Exposure Controls were utilized during the CT exam to meet ALARA standards for radiation dose reduction. INDICATION: CVA, altered mental status. The previous CTA head and neck exam of 08/20/2020 noted that the left common and internal carotid arteries were occluded. There was opacification of the right common and internal carotid arteries and there was a stent in place on the right. In the interval since the prior exam, however, the right common and internal carotid artery had become occluded as well. There is only a very small amount of contrast evident in the origin of the right common carotid artery. The remainder of the right carotid system is occluded. As on the prior exam there is retrograde fill of the petrous segment of the left internal carotid artery. There is also contrast evident in both cavernous sinuses and I suspect that this too is retrograde in nature. There is opacification of the middle cerebral arteries and anterior cerebral arteries and there is no large vessel occlusion identified. However, the blood supply to the brain is now primarily from the vertebral arteries and consequently tenuous. There is no acute abnormality identified otherwise. There is no mass or adenopathy involving the neck. The degenerative and postsurgical changes involving the cervical spine seen previously are again visualized. The lung apices are clear. IMPRESSION: 1. The common and internal carotid arteries on the left remain occluded. However, in the interval since the prior study the right carotid system has become occluded as well. 2. There is no evidence for large vessel occlusion of the intracranial circulation and there is no sign of an aneurysm of the [place] of [place]. 3. If clinical concern regarding an acute intracranial abnormality persists, then MRI would be recommended for further study. 4. These results were discussed with Dr. Manuel at the time of this dictation. Dictated by: Dictated on workstation # [id number]
[2020-10-18] MEDS ORDERED: ASPIRIN 325 MG (5 GR) TABLET PO ONE (23:30)
[2020-10-18] MEDS ORDERED: cefTRIAXone 1,000 MG in WATER (STERILE) FOR INJECTION 10 ML IV ONE (23:45)
--- NOTE | 2020-10-19 00:44 | ED Neurological Problem ---
General Chief Complaint: Neuro-Stroke Like Symptoms Stated Complaint: POSS STROKE Nursing Triage Note: Pt to CT via EMS, then to ED 5. Pt has history of 2 previous strokes, last one in June 2020. Per report from EMS, pt has right sided residual defecits from previous strokes, but was verbal prior to daughter calling EMS. Last known well time 1929. Per EMS, pt only said "thank you" when they were closer to arrival to hospital, but did not verbalize anything else prior. Source: patient, family, EMS, old records Exam Limitations: no limitations History of Present Illness Date Seen by Provider: Oct 18, 2020 Time Seen by Provider: 21:15 Initial Comments This 65-year-old gentleman presents to the emergency room via EMS with right- sided facial droop, difficulty speaking, and decreased alertness. He was with his daughter at the time of onset which was approximately 19:00. His daughter May provides most of the history. She was visiting with the patient when he became rather drowsy and nodded off. At first they thought he was sleeping. However, they then tried to wake him up and noted he was not responding properly. He was drooling and had facial droop at the right mouth. He was not following instructions properly. He has chronic deficits of nearly flaccid right upper extremity and weak right lower extremity. He uses a wheelchair most of the time but can ambulate with a walker sometimes. His speech is normally fairly clear but has become quieter in recent weeks. He is mumbling with as much of his speech at present which his daughter said this is not usual for him. Allergies and Home Medications Allergies Coded Allergies: No Known Drug Allergies (Unverified , 03/13/18) Home Medications ALPRAZolam 0.25 Mg Tab, 0.25 MG PO Q8H PRN for ANXIETY Prescribed by: PRUDENCE BECK on 06/11/20515 Albuterol Sulfate 18 Gm Hfa.aer.ad, 0 GM IH Q6H PRN for SHORTNESS OF BREATH Prescribed by: PRUDENCE BECK on 06/11/20515 Albuterol/Ipratropium 4 Gm Aero, 1 PUFF IH QID PRN for SHORTNESS OF BREATH, (Reported) Aspirin 81 Mg Tab.chew, 81 MG PO DAILY@0900 Prescribed by: PRUDENCE BECK on 06/11/20515 Atorvastatin Calcium 80 Mg Tablet, 80 MG PO HS, (Reported) Baclofen 10 Mg Tablet, 10 MG PO TID PRN for MUSCLE SPASMS, (Reported) Budesonide/Formoterol Fumarate 10.2 Gm Hfa.aer.ad, 2 PUFF IH BID PRN for SHORTNESS OF BREATH, (Reported) Clopidogrel Bisulfate 75 Mg Tablet, 75 MG PO DAILY, (Reported) Fluticasone Propionate 16 Gm [place].susp, 0 SPRAY NS BID Prescribed by: PRUDENCE BECK on 06/11/20515 Gabapentin 600 Mg Tablet, 600 MG PO TID Prescribed by: PRUDENCE BECK on 06/11/20515 Gabapentin 300 Mg/6 Ml Solution, 300 MG PO TID Prescribed by: PRUDENCE BECK on 06/11/20515 Ipratropium/Albuterol Sulfate 3 Ml Ampul.neb, 3 ML INH RTBID Prescribed by: PRUDENCE BECK on 06/11/20515 Lisinopril 20 Mg Tablet, 20 MG PO DAILY@0900 Prescribed by: PRUDENCE BECK on 06/11/20515 Nitroglycerin 0.4 Mg Tab.subl, 0 MG SL NEEDED PRN for chest pain Prescribed by: PRUDENCE BECK on 06/11/20515 Ondansetron 4 Mg Tab.rapdis, 4 MG PO Q6H PRN for NAUSEA/VOMITING-1ST LINE Prescribed by: PRUDENCE BECK on 06/11/20515 Oxycodone Hcl 5 Mg Tab, 5 MG PO Q4H PRN for PAIN-SEVERE (8-10) Prescribed by: PRUDENCE BECK on 06/11/20515 Sennosides/Docusate Sodium 1 Each Tablet, 1 EA PO BID Prescribed by: PRUDENCE BECK on 06/11/20515 Sodium Chloride 44 Ml [place], 0 ML NA NEEDED PRN for DRY NOSE Prescribed by: PRUDENCE BECK on 06/11/20515 Umeclidinium Ronceverte 62.5 Mcg Blst.w.dev, 0 INH IH DAILY@0800 Prescribed by: PRUDENCE BECK on 06/11/20515 Zinc Oxide 28 Gm Oint, 0 GM TOP NEEDED PRN for RASH Prescribed by: PRUDENCE BECK on 4/22/21 0516 Patient Home Medication List Home Medication List Reviewed: Yes Review of Systems Review of Systems Constitutional: no symptoms reported Eyes: No Symptoms Reported Ears, Nose, Mouth, Throat: see HPI Respiratory: no symptoms reported Cardiovascular: no symptoms reported Gastrointestinal: no symptoms reported Genitourinary: no symptoms reported Musculoskeletal: no symptoms reported Psychiatric/Neurological: See HPI Endocrine: No Symptoms Reported Hematologic/Lymphatic: No Symptoms Reported Past Fzvdyny-Tbqgxw-Ffzjee Hx Patient Social History Substance use?: Yes Substance type: Methamphetamine (Prior), Marijuana Alcohol Use?: No Immunizations Up To Date Tetanus Booster (TDap): Less than 5yrs Seasonal Allergies Seasonal Allergies: No Past Medical History Surgeries: Yes (EYES;C+L SPINE;CARDIAC CATHS-STENTS X3;BILAT CAROTID ENDART;FOOT;SKIN CA) Angioplasty, Appendectomy, Cardiac, Coronary Stent, Eye Surgery, Orthopedic, Vascular Surgery Respiratory: Yes COPD Cardiac: Yes (CARDIAC CATHS-STENTS X3; BILAT CAROTID ENDARTERECTOMIES;R CAROTID STENT) Coronary Artery Disease, Heart Attack, High Cholesterol, Hypertension, Perip heral Vascular Neurological: Yes (stroke Jan 20, 2020, R sided stent placed; TIA 03/23/20) Neuropathy, Stroke, TIA Reproductive Disorders: No Sexually Transmitted Disease: No HIV/AIDS: No Genitourinary: No Gastrointestinal: Yes (HEPATITIS C--S/P TREATMENT) Hepatitis Musculoskeletal: Yes (CHRONIC NECK AND BACK PAIN-S/P C-SPINE + L-SPINE SURGERY; L FOOT FX/ORIF) Degenerate Disk Disease, Arthritis, Chronic Back Pain, Fractures Endocrine: No HEENT: Yes (READING GLASSES;EYE SURGERY CHILD) Loss of Vision: Bilateral Hearing Impairment: Hard of Hearing Cancer: Yes Skin Did You Recieve Any Treatments: Yes What Type of Treatment Did You: Surgical Intervention Psychosocial: Yes Anxiety, Violent Behavior, Depression Integumentary: Yes (SKIN CANCER-GETS BLISTERS) Recent Skin Changes Blood Disorders: No Adverse Reaction/Blood Tranf: No Family Medical History Cancer 19 FATHER (SKIN) 19 MOTHER Cancer of colon 19 MOTHER Kidney disease 19 FATHER (PASSED KIDNEY FAILURE) SOCIAL HISTORY: -ETOH--OCCASIONAL USE, HX OF HEAVY USE -DRUGS--DAILY MARIJUANA USE, ALSO METH USE. DENIES IV DRUG USE -SMOKES 2 PPD PAST SURGICAL HISTORY: -LAST CARDIAC CATH DONE HERE IN 2013--PATENT STENTS -CARDIAC CATHS WITH STENTS X 3 -BILATERAL CAROTID ENDARTERECTOMY -RIGHT CAROTID STENT 01/21/20 AT -RIGHT EYE SURGERY CHILD -CERVICAL SPINE AND LUMBAR SPINE SURGERIES -LEFT FOOT FRACTURE/ ORIF -SKIN CANCER REMOVAL -APPENDECTOMY Physical Exam Vital Signs Vital Signs - First Documented 10/18/20 21:14 Temp 35.8 Pulse 63 Resp 16 B/P (MAP) 163/83 (109) Pulse Ox 97 O2 Delivery Room Air Capillary Refill : Less Than 3 Seconds Height, Weight, BMI Height: 6'1.00" Weight: 195lbs. 0oz. [id number]; 21.00 BMI Method:Actual General Appearance: WD/WN, no apparent distress HEENT: PERRL/EOMI, normal ENT inspection Neck: normal inspection, other (No JVD) Respiratory: lungs clear, normal breath sounds, no respiratory distress, no accessory muscle use Cardiovascular: regular rate, rhythm, no edema, no murmur Gastrointestinal: normal bowel sounds, non tender, soft Extremities: normal inspection, no pedal edema Neurologic/Psychiatric: alert Crainal Nerves: normal hearing, abnormal speech (Mild to moderate dysarthria and mild to moderate aphasia. He sometimes trails off his sentences with mumbling. Voice is very quiet.) Coordination/Gait: ABN nose to finger (R) Motor/Sensory: no sensory deficit, weak motor strength RUE, weak motor strength RLE Skin: normal color, warm/dry Stroke NIH Stroke Scale Assessment Select: Initial Level of Consciousness: 0=Alert (0), Level of Consciousness- Questions: 2=Answer neither question (2), LOC Commands: 0=Performs both tasks (0), Gaze: Normal (0), Visual Perry: 0=No visual loss (0), Facial Movement (Facial Paresis): 1=Minor paralysis (1), Motor Function-Arms Right: 4=No movement (4), Motor Function-Arms Left: 0=No drift (0), Motor Function-Legs Right: 1=Drift (1), Motor Function-Legs Left: 0=No drift (0), Limb Ataxia: 1 =Present in one limb (1), Sensory: 0=Normal:no loss (0), Best Language: 1=Mild to moderat aphasia (1), Dysarthria: 1=Mild to moderate loss (1), Extinction & Inattention: 1=Visual,tactile,auditory (1), Total: 12 Stroke Thrombolytic Exclusion Age 18 or Over: Yes Acute intenal hemorrhage: No History of CVA: Yes Uncontrolled Coagulation Defec: No Intracranial Hemorrhage: No Severe Hypertension: No GI or Bleed: No Subarachnoid Hemorrhage: No Intracranial Neoplasm/Aneurysm: No Oral Anticoagulants: Yes Surgery or Trauma: Yes Puncture of Non-Compressible V: No Recent CPR: No Diabetic Hemorrhagic Retinopat: No Organ Biopsy: No Recent Obstetric Delivery: No Glucose: No Significant Hepatic Dysfunctio: No NIH Stoke Scale >22: No Bacterial Endocarditis: No Pericarditis: No Improving Symptoms: No Platelets: No Progress/Results/Core Measures Results/Orders Lab Results Laboratory Tests Test 10/18/20 21:47 10/18/20 21:51 10/18/20 22:05 Range/Units White Blood Count 15.9 H 4.3-11.0 10^3/uL Red Blood Count 5.23 4.30-5.52 10^6/uL Hemoglobin 15.2 13.3-17.7 g/dL Hematocrit 48 40-54 % Mean Corpuscular Volume 91 80-99 fL Mean Corpuscular Hemoglobin 29 25-34 pg Mean Corpuscular Hemoglobin Concent 32 32-36 g/dL Red Cell Distribution Width 15.1 H 10.0-14.5 % Platelet Count 227 130-400 10^3/uL Mean Platelet Volume 10.2 9.0-12.2 fL Immature Granulocyte % (Auto) 0 % Neutrophils (%) (Auto) 83 H 42-75 % Lymphocytes (%) (Auto) 9 L 12-44 % Monocytes (%) (Auto) 6 0-12 % Eosinophils (%) (Auto) 2 0-10 % Basophils (%) (Auto) 0 0-10 % Neutrophils # (Auto) 13.2 H 1.8-7.8 10^3/uL Lymphocytes # (Auto) 1.4 1.0-4.0 10^3/uL Monocytes # (Auto) 0.9 0.0-1.0 10^3/uL Eosinophils # (Auto) 0.3 0.0-0.3 10^3/uL Basophils # (Auto) 0.1 0.0-0.1 10^3/uL Immature Granulocyte # (Auto) 0.1 0.0-0.1 10^3/uL Neutrophils % (Manual) 80 % Lymphocytes % (Manual) 11 % Monocytes % (Manual) 7 % Eosinophils % (Manual) 2 % Blood Morphology Comment NORMAL Prothrombin Time 13.6 12.2-14.7 SEC INR Comment 1.0 0.8-1.4 Activated Partial Thromboplast Time 24 24-35 SEC D-Dimer 0.54 H 0.00-0.49 UG/ML Sodium Level 141 135-145 MMOL/L Potassium Level 4.3 3.6-5.0 MMOL/L Chloride Level 105 98-107 MMOL/L Carbon Dioxide Level 24 21-32 MMOL/L Anion Gap 12 5-14 MMOL/L Blood Urea Nitrogen 14 7-18 MG/DL Creatinine 1.31 H 0.60-1.30 MG/DL Estimat Glomerular Filtration Rate 55 BUN/Creatinine Ratio 11 Glucose Level 131 H 70-105 MG/DL Calcium Level 10.0 8.5-10.1 MG/DL Corrected Calcium 9.9 8.5-10.1 MG/DL Total Bilirubin 1.0 0.1-1.0 MG/DL Aspartate Amino Transf (AST/SGOT) 15 5-34 U/L Alanine Aminotransferase (ALT/SGPT) 15 0-55 U/L Alkaline Phosphatase 72 40-136 U/L Troponin I 0.038 H <0.028 NG/ML Total Protein 7.3 6.4-8.2 GM/DL Albumin 4.1 3.2-4.5 GM/DL Serum Alcohol < 10 <10 MG/DL Glucometer 132 H 70-110 MG/DL Urine Color YELLOW Urine Clarity SL CLOUDY Urine pH 6.5 5-9 Urine Specific [place] 1.015 L 1.016-1.022 Urine Protein 2+ H NEGATIVE Urine Glucose (UA) TRACE H NEGATIVE Urine Ketones TRACE H NEGATIVE Urine Nitrite NEGATIVE NEGATIVE Urine Bilirubin 1+ H NEGATIVE Urine Urobilinogen 4.0 < = 1.0 MG/DL Urine Leukocyte Esterase NEGATIVE NEGATIVE Urine RBC (Auto) TRACE-I NEGATIVE Urine RBC 2-5 H /HPF Urine WBC 5-10 H /HPF Urine Squamous Epithelial Cells 2-5 /HPF Urine Renal Epithelial Cells NONE /HPF Urine Crystals NONE /LPF Urine Bacteria FEW H /HPF Urine Casts PRESENT /LPF Urine Hyaline Casts 25-50 H /LPF Urine Mucus NEGATIVE /LPF Urine Culture Indicated YES Urine Opiates Screen NEGATIVE NEGATIVE Urine Oxycodone Screen NEGATIVE NEGATIVE Urine Methadone Screen NEGATIVE NEGATIVE Urine Propoxyphene Screen NEGATIVE NEGATIVE Urine Barbiturates Screen NEGATIVE NEGATIVE Ur Tricyclic Antidepressants Screen NEGATIVE NEGATIVE Urine Phencyclidine Screen NEGATIVE NEGATIVE Urine Amphetamines Screen NEGATIVE NEGATIVE Urine Methamphetamines Screen NEGATIVE NEGATIVE Urine Benzodiazepines Screen NEGATIVE NEGATIVE Urine Cocaine Screen NEGATIVE NEGATIVE Urine Cannabinoids Screen POSITIVE H NEGATIVE My Orders Orders - RIVERA MANUEL MD Cbc With Automated Diff (10/18/20:17) Protime With Inr (10/18/20 21:17) Partial Thromboplastin Time (10/18/20 21:17) Comprehensive Metabolic Panel (10/18/20 21:17) Fibrin Degradation Products (10/18/20:17) Troponin I (10/18/20:17) Ua Culture If Indicated (10/18/20:17) Chest 1 View, Ap/Pa Only (10/18/20 21:17) Catheter(Urinary) Insert & Ass 03,15 (10/18/20:17) Ekg Tracing (10/18/20:17) Accucheck Stat ONCE (10/18/20 21:17) Ed Iv/Invasive Line Start (10/18/20 21:17) Ed Iv/Invasive Line Start (10/18/20 21:17) Vital Signs Stroke Patient Q15M (10/18/20 21:17) Ct Head Wo-R/O Stroke (10/18/20 21:17) O2 (10/18/20 21:17) Intake & Output 06,14,22 (10/18/20 21:17) Monitor-Rhythm Ecg Trace Only (10/18/20 21:17) Dysphagia Screening Tool (10/18/20 21:17) Post Thrombolytic Adminstratio (10/18/20 21:17) Lipid Panel (10/19/20 06:00) Alcohol (10/18/20 21:35) Drug Screen Stat (Urine) (10/18/20 21:35) Ct Angio Head/Neck (10/18/20 21:54) Manual Differential (10/18/20 21:47) Urine Culture (10/18/20 22:05) Iohexol Injection (Omnipaque 350 Mg/Ml 1 (10/18/20 22:30) Received Contrast (Hold Metformin- Contr (10/18/20 22:30) Sodium Chloride Flush (Catheter Flush Sy (10/18/20 22:30) Ns (Ivpb) (Sodium Chloride 0.9% Ivpb Bag (10/18/20 22:30) Aspirin Tablet (Aspirin Tablet) (10/18/20 23:30) Ceftriaxone (Rocephin) (10/18/20 23:45) Medications Given in ED Current Medications Medications Dose Ordered Sig/Lindsey Route Start Time Stop Time Status Last Admin Dose Admin Aspirin 325 mg ONCE ONCE PO 10/18/20 23:30 10/18/20 23:31 DC 10/18/20 23:38 325 MG Ceftriaxone Sodium 1000 mg/ Sterile Water 10 ml @ 200 mls/hr ONCE ONCE IV 10/18/20 23:45 10/18/20 23:47 DC 10/18/20 23:38 200 MLS/HR Iohexol 100 ml ONCE ONCE IV 10/18/20 22:30 10/18/20 22:31 DC 10/18/20 22:23 75 ML Sodium Chloride 10 ml NEEDED PRN IV 10/18/20 22:30 10/18/20 23:38 10 ML Sodium Chloride 100 ml ONCE ONCE IV 10/18/20 22:30 10/18/20 22:31 DC 10/18/20 22:23 80 ML Vital Signs/I&O 10/18/20 10/18/20 21:14 21:24 Temp 35.8 Pulse 63 Resp 16 B/P (MAP) 163/83 (109) Pulse Ox 97 96 O2 Delivery Room Air Room Air Blood Pressure Mean: 109 FSBG Bedside Testing Finger Stick Blood Glucose: 136 Blood Glucose Action Taken: RN NOTIFIED Progress Progress Note : Progress Note Stroke activation was paged and patient went promptly to CT scan. No hemorrhages were identified. CT angiogram revealed a new occlusion of the right carotid system. 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 Stroke neurology at [facility] was consulted. Dr. Johnson advised letting blood pressure stay as high as possible. We had a very long in-depth conversation about thrombolytic therapy. At this point patient was nearing 4 hours from last known well time. He also is fairly debilitated with comorbidities making thrombolytics a higher risk. I discussed risks and benefits of thrombolytics with patient and his daughter. Ultimately the decision was made to not adminis ter any thrombolytics. It is also unclear when exactly the occlusion occurred given his worsening of speech noted by his daughter over the last 2 weeks. Patient passed dysphagia screen and was given aspirin. Rocephin was given for urinary tract infection. Troponin was elevated and Dr. Saenz was consulted. Patient did not complain of any chest pain. Diagnostic Imaging Diagonstic Imaging: Xray Plain Films/CT/US/NM/MRI: chest Comments Chest x-ray viewed by me and report reviewed. See report below: NAME: CRISTI KRISHNAMURTHY [facility] REC#: [id number] PT STATUS: ADM IN : 1955 PHYSICIAN: RIVERA MANUEL MD ADMIT DATE: 10/19/20/ Signed Date of Exam:10/18/20 CHEST 1 VIEW, AP/PA ONLY INDICATION: CVA, altered mental status. EXAMINATION: Portable erect AP chest at 10:34 p.m. FINDINGS: The heart size is within normal limits and stable when compared to 09/26/2020. The right hilum is somewhat prominent but no different than on the prior study. The lungs remain generally clear. There is no evidence for pneumonia or for a pleural effusion. The mediastinum is not widened. The osseous structures are intact. Orthopedic hardware is again seen overlying the cervical spine. IMPRESSION: Stable chest. There has been no adverse change since the prior exam. Dictated by: Dictated on workstation # [id number] Dict: 10/18/202230 Trans: 10/19/20 0126 [id number] Interpreted by: NUBIA THURSTON MD Electronically signed by: NUBIA THURSTON MD 10/19/20 0126 Diagonstic Imaging: CT Plain Films/CT/US/NM/MRI: head Comments CT head viewed by me and report reviewed. See report below: [facility] [place] NAME: CRISTI KRISHNAMURTHY [facility] REC#: [id number] PT STATUS: REG ER : 1955 PHYSICIAN: RIVERA MANUEL MD ADMIT DATE: 10/18/20/ER Signed Date of Exam:10/18/20 CT HEAD WO-R/O STROKE PROCEDURE: CT head w/o r/o stroke. TECHNIQUE: Multiple contiguous axial images were obtained through the brain without the use of intravenous contrast. Auto Exposure Controls were utilized during the CT exam to meet ALARA standards for radiation dose reduction. INDICATION: STROKE, neurologic deficit. COMPARISON: 09/26/2020. FINDINGS: Mild atrophy. Encephalomalacia within the high left frontal lobe as well as the right parieto-occipital lobe is again identified, appearing stable. Ex vacuo dilatation of the left frontal horn is again seen. No intracranial hemorrhage. No midline shift, herniation, obstructive hydrocephalus or suspicious extra-axial fluid collection. No definite CT evidence of an acute ischemic infarction. The orbits are unremarkable. Periventricular and subcortical white matter hypodensities are present, most consistent with mild background chronic small vessel white matter ischemic disease. The paranasal sinuses are clear. The calvarium and extracalvarial soft tissues are unremarkable. IMPRESSION: 1. Stable appearing examination without acute intracranial abnormality. 2. Significant background chronic ischemic changes are again identified, including prominent regions of encephalomalacia within the left frontal lobe and right parieto-occipital lobe. 3. Should symptoms persist, consideration for an MRI of the brain could be made. Dictated by: Dictated on workstation # [id number] Dict: 10/18/202125 Trans: 10/18/202141 [facility] [id number] Interpreted by: RODRIGO KHAN MD Electronically signed by: RODRIGO KHAN MD 10/18/202141 Diagonstic Imaging: CT Plain Films/CT/US/NM/MRI: other (Angiogram head and neck) Comments CT angiogram head and neck viewed by me and report reviewed. See report below: NAME: CRISTI KRISHNAMURTHY [facility] REC#: [id number] PT STATUS: ADM IN : 1955 PHYSICIAN: RIVERA MANUEL MD ADMIT DATE: 10/19/20 Signed Date of Exam:10/18/20 CT ANGIO HEAD/NECK PROCEDURE: CT angiography of the head and CT angiography of the neck with and without contrast. TECHNIQUE: Contiguous noncontrast images were obtained from the skull base through the vertex. After intravenous contrast administration, helical CT angiography of the neck was performed. Source data was reformatted into 3D MIP projections. Delayed post contrast acquisition was also obtained. Auto Exposure Controls were utilized during the CT exam to meet ALARA standards for radiation dose reduction. INDICATION: CVA, altered mental status. The previous CTA head and neck exam of 08/20/2020 noted that the left common and internal carotid arteries were occluded. There was opacification of the right common and internal carotid arteries and there was a stent in place on the right. In the interval since the prior exam, however, the right common and internal carotid artery had become occluded as well. There is only a very small amount of contrast evident in the origin of the right common carotid artery. The remainder of the right carotid system is occluded. As on the prior exam there is retrograde fill of the petrous segment of the left internal carotid artery. There is also contrast evident in both cavernous sinuses and I suspect that this too is retrograde in nature. There is opacification of the middle cerebral arteries and anterior cerebral arteries and there is no large vessel occlusion identified. However, the blood supply to the brain is now primarily from the vertebral arteries and consequently tenuous. There is no acute abnormality identified otherwise. There is no mass or adenopathy involving the neck. The degenerative and postsurgical changes involving the cervical spine seen previously are again visualized. The lung apices are clear. IMPRESSION: 1. The common and internal carotid arteries on the left remain occluded. However, in the interval since the prior study the right carotid system has become occluded as well. 2. There is no evidence for large vessel occlusion of the intracranial circulation and there is no sign of an aneurysm of the [place] of [place]. 3. If clinical concern regarding an acute intracranial abnormality persists, then MRI would be recommended for further study. 4. These results were discussed with Dr. Manuel at the time of this dictation. Dictated by: Dictated on workstation # [id number] Dict: 10/18/20 2236 Trans: 10/19/20 0125 APOLINAR [id number] Interpreted by: NUBIA THURSTON MD Electronically signed by: NUBIA THURSTON MD 10/19/20 0125 Departure Communication (Admissions) Time/Spoke to Admitting Phy: 00:05 Dr. Romero Time/Spoke to Consulting Phy: 00:23 Dr. Sanez Impression Primary Impression: Dysphasia Additional Impressions: Right sided weakness Facial droop Bilateral carotid artery occlusion UTI (urinary tract infection) Qualified Codes: N39.0 - Urinary tract infection, site not specified Elevated troponin Disposition: ADMITTED INPATIENT Condition: Improved Admissions Decision to Admit Reason: Admit from ER (General) Decision to Admit/Date: Oct 18, 2020 Time/Decision to Admit Time: 22:45 Departure-Patient Inst. Referrals: YUMIKO HERNANDEZ MD (PCP/Family) Primary Care Physician RIVERA MANUEL MD Oct 19, 2020 00:44
[2020-10-19 01:40] VITALS: BP 159/92
[2020-10-19] MEDS ORDERED: ONDANSETRON 4 MG/2 ML (SDV) Z0FRAN IVP PRN (01:45)
[2020-10-19] MEDS ORDERED: BISACODYL 10 MG SUPP (DULCOLAX) PR PRN (01:45)
[2020-10-19] MEDS: LACTATED RINGERS 1,000 ML IV SCH ×2 (02:49→12:16)
[2020-10-19 04:26] VITALS: BP 144/77
[2020-10-19 04:54] LABS: BASOPHILS # (AUTO) 0.1 10^3/uL (0.0-0.1); BASOPHILS % (AUTO) 1 % (0-10); EOSINOPHILS # (AUTO) 0.1 10^3/uL (0.0-0.3); EOSINOPHILS % (AUTO) 1 % (0-10); HEMATOCRIT 43 % (40-54); LYMPHOCYTES # (AUTO) 1.9 10^3/uL (1.0-4.0); LYMPHOCYTES % (AUTO) 17 % (12-44); MEAN CORPUSCULAR HEMOGLOBIN 29 pg (25-34); MEAN CORPUSCULAR HGB CONC 33 g/dL (32-36); MEAN CORPUSCULAR VOLUME 90 fL (80-99); MEAN PLATELET VOLUME 10.6 fL (9.0-12.2); MONOCYTES # (AUTO) 0.8 10^3/uL (0.0-1.0); MONOCYTES % (AUTO) 7 % (0-12); NEUTROPHILS # (AUTO) 8.1 10^3/uL (1.8-7.8); NEUTROPHILS % (AUTO) 74 % (42-75); PLATELET COUNT 209 10^3/uL (130-400); WHITE BLOOD COUNT 10.9 10^3/uL (4.3-11.0)
[2020-10-19 05:07] LABS: POTASSIUM 3.7 MMOL/L (3.6-5.0)
[2020-10-19 05:08] LABS: CALCIUM 9.7 MG/DL (8.5-10.1)
[2020-10-19 05:13] LABS: CREATININE SERUM 1.06 MG/DL (0.60-1.30)
[2020-10-19 08:00] VITALS: BP 166/81
[2020-10-19] MEDS ORDERED: ASPIRIN E.C. 325 MG (ECOTRIN) TABLET PO SCH (09:00)
[2020-10-19] MEDS: DOCUSATE SODIUM 100 MG (COLACE) CAP PO SCH ×2 (09:17→20:09)
[2020-10-19] MEDS: ENOXAPARIN 40 MG/0.4 ML (LOVENOX) SYR SC SCH (09:17)
--- NOTE | 2020-10-19 10:32 | Physical Therapy Evaluation ---
PT Evaluation-General Medical Diagnosis Admission Date Oct 19, 2020 at 00:44 Medical Diagnosis: dysphasia/right facial droop Onset Date: Oct 19, 2020 Therapy Diagnosis Therapy Diagnosis: debility/weakness Height/Weight Height (Feet): 6 Height (Inches): 1.00 Weight (Pounds): 195 Weight (Ounces): 0 Precautions Precautions/Isolations: Fall Prevention, Pressure Ulcer Referral Physician: Heather Medical History Pertinent Medical History: Alcoholism, CAD, COPD, CVA, HTN, [place], Neuropathy, PVD, Smoking Current History EMS secondary to possible CVA Reviewed History: Yes Social History Home: Single Level Current Living Status: Other Family Prior Prior Level of Function SCALE: Activities may be completed with or without assistive devices. 9-Mqbmjyustv-ioqbjxf completes the activity by him/herself with no assistance from a helper. 5-Set-up or Clean-up Assistance-helper sets up or cleans up; patient completes activity. [place] assists only prior to or following the activity. 4-Supervision or Touching Assistance-helper provides verbal cues and/or touching/steadying and/or contact guard assistance as patient completes activity. Assistance may be provided throughout the activity or intermittently. 3-Partial/Moderate Assistance-helper does LESS THAN HALF the effort. [place] lifts, holds or supports trunk or limbs, but provides less than half the effort. 2-Substantial/Maximal Assistance-helper does MORE THAN HALF the effort. [place] lifts or holds trunk or limbs and provides more than half the effort. 4-Dmirksvcv-gixkbc does ALL the effort. Patient does none of the effort to complete the activity. Or, the assistance of 2 or more helpers is required for the patient to complete the activity. If activity was not attempted, code reason: 7-Patient Refused. 9-Not Applicable-not attempted and the patient did not perform the activity before the current illness, exacerbation or injury. 10-Not Attempted due to Environmental Limitations-(lack of equipment, weather restraints, etc.). 88-Not Attempted due to Medical Conditions or Safety Concerns. Bed Mobility: 4 Transfers (B,C,W/C): 4 Gait: 4 Stairs: 4 Wheelchair Mobility: 4 Indoor Mobility (Ambulation): Needed Some Help Stairs: Needed Some Help Prior Devices Use: Manual wheelchair, Walker PT Evaluation-Current Subjective Patient agrees to PT. Objective Patient Orientation: Normal For Age Attachments: Moe Catheter, IV ROM/Strength ROM Lower Extremities bilateral LE WFL Strength Lower Extremities right knee flexion 3-/5; extension 3/5; DF/PF 3-/5; hip flexion 2+/5 left knee flexion/extension 4/5; DF/PF 4/5; hip flexion 4/5 Integumentary/Posture Bowel Incontinence: No Bladder Incontinence: Moe Cath Posture WFL Neuromuscular (Tone, Coordination, Reflexes) right side diminished coordination due to 2-3 CVA's prior Sensory Vision: Functional Hearing: Functional Transfers Roll Left to Right (QC): 4 (SBA) Lying to Sitting/Side of Bed(Q: 4 (SBA) Sit to Stand (QC): 3 Chair/Niu-ys-Qtunm Xfer(QC): 3 Gait Does the Patient Walk?: Yes Mode of Locomotion: Both Anticipated Mode of Locomotion: Both Walk 10 feet (QC): 3 Walk 50 ft with 2 Turns(QC): 3 Walk 150 ft (QC): 3 Distance: 200' Gait Assistive Device: Walker Platform (right ) Balance Sitting Static: Normal Sitting Dynamic: Normal Standing Static: Fair Standing Dynamic: Fair Assessment/Needs 65 y.o. male, will benefit from skilled PT to address functional strength and mobility to improve current LOF to safely return to home with family at maximum LOF. 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 Goals Mcc Goals PT Mcc Goals Time Frame: Oct 31, 2020 Roll Left & Right (QC): 4 Sit to Lying (QC): 4 Lying-Sitting on Side/Bed(QC): 4 Sit to Stand (QC): 4 Chair/Bes-qg-Oqckg Xfer(QC): 4 Toilet Transfer (QC): 4 Does the Patient Walk: Yes Walk 10 feet (QC): 4 Walk 50ft with 2 Turns (QC): 4 Walk 150 ft (QC): 4 PT Plan Problem List Problem List: Activity Tolerance, Functional Strength, Safety, Balance, Gait, Transfer, Bed Mobility Treatment/Plan Treatment Plan: Continue Plan of Care Treatment Plan: Bed Mobility, Education, Functional Activity Dutch, Functional Strength, Gait, Safety, Therapeutic Exercise, Transfers Treatment Duration: Oct 31, 2020 Frequency: 6 times per week Estimated Hrs Per Day: .25 hour per day Time/GCodes Time In: 835 Time Out: 901 Total Billed Treatment Time: 26 Total Billed Treatment 1 visit EVModC 15 min GT 11 min RADHA SALINAS PT Oct 19, 2020 10:32
[2020-10-19 12:00] VITALS: BP 170/94
--- NOTE | 2020-10-19 12:00 | Occupational Therapy Eval ---
OT Evaluation-General/PLF Medical Diagnosis Admission Date Oct 19, 2020 at 00:44 Medical Diagnosis: dysphasia/right facial droop Onset Date: Oct 19, 2020 Therapy Diagnosis Therapy Diagnosis: decreased ADL status Height/Weight Height (Feet): 6 Height (Inches): 1.00 Weight (Pounds): 195 Weight (Ounces): 0 Precautions Precautions/Isolations: Fall Prevention, Pressure Ulcer Referral Physician: Heather Referral Reason: Evaluation/Treatment Medical History Pertinent Medical History: Alcoholism, CAD, COPD, CVA, HTN, [place], Neuropathy, PVD, Smoking Additional Medical History C&L spine surgery, cardiac stent x3, b/l Carotid endart, foot fx s/p ORIF, skin CA, CAD, CVA (Dec 2019, April 2020), TIA, neuropathy, Hep C s/p tx, arthritis, fractures, anxiety/depression Current History ED due to R facial droop, difficulty speaking and decreased alertness. Last well known time approx 7-3:30 pm 10/18/20 Social History Home: Single Level Current Living Status: Children (daughter) ADL-Prior Level of Function SCALE: Activities may be completed with or without assistive devices. 4-Hztzrnwxzp-muswlvn completes the activity by him/herself with no assistance from a helper. 5-Set-up or Clean-up Assistance-helper sets up or cleans up; patient completes activity. [place] assists only prior to or following the activity. 4-Supervision or Touching Assistance-helper provides verbal cues and/or touching/steadying and/or contact guard assistance as patient completes activity. Assistance may be provided throughout the activity or intermittently. 3-Partial/Moderate Assistance-helper does LESS THAN HALF the effort. [place] lifts, holds or supports trunk or limbs, but provides less than half the effort. 2-Substantial/Maximal Assistance-helper does MORE THAN HALF the effort. [place] lifts or holds trunk or limbs and provides more than half the effort. 1-Gfefmiyfe-rpfspp does ALL the effort. Patient does none of the effort to complete the activity. Or, the assistance of 2 or more helpers is required for the patient to complete the activity. If activity was not attempted, code reason: 7-Patient Refused. 9-Not Applicable-not attempted and the patient did not perform the activity before the current illness, exacerbation or injury. 10-Not Attempted due to Environmental Limitations-(lack of equipment, weather restraints, etc.). 88-Not Attempted due to Medical Conditions or Safety Concerns. ADL PLOF Comments Since CVA April 2020, pt has had residual R side deficits in RUE (nearly flaccid). He mainly uses a w/c for functional mobility, but can use a walker sometimes. He requires assistance with all ADLs, states he requires max A overall with showering, Mod A with dressing. Self Care: Needed Some Help DME/Equipment Comments walker, w/c OT Current Status Subjective Pt laying in bed, agreeable to OT evaluation Mental Status/Objective Patient Orientation: Person, Place, Situation Attachments: Moe Catheter Current Glasses/Contacts: Yes Hearing Aids: No Dentures/Partials: No Hand Dominance: Right Upper Extremity ROM LUE WFL. RUE decreased. Shoulder flexion to approx 90 degrees passively, reports he has some increased pain at times. Slight flexion noted at elbow. Pt does not demonstrate any wrist/finger movement. Upper Extremity Coordination decreased Upper Extremity Strength LUE grossly ADL-Treatment Eating (QC): 5 (set up per pt report. Pt able to use LUE to feed self.) Oral Hygiene (QC): 9 Lower Body Dressing (QC): 2 (based on clincial judgment and pt report.) On/Off Footwear (QC): 1 (based on clincial judgment, assist to don BLE gripper socks.) Toileting Hygiene (QC): 1 (catheter) Other Treatments Pt laying in bed, agreeable to OT evaluation and tx. Pt provided information about PLOF and home set up since his previous CVA in April. He is now living with his daughter, and requires assistance with bathing, dressing, cooking and cleaning. He primarily uses a w/c for functional mobility, but owns a walker. His RUE has had decreased function since prior CVA (nearly flaccid). He states he needs approx "50/50" assistance with dressing, and max A with showering as there is only so much he can reach using his LUE. Pt declines completing ADLs at this time. OT encouraged pt to perform RUE exercises as able, he verbalized understanding. OT performed x10 reps PROM RUE all planes. Per PT evaluation, pt able to perform functional mobility 200' using R platform walker, QC 3. He is SBA with rolling and lying to sit. QC 3 for sit to stand and chair to bed transfers. OT educated pt on POC while he is admitted, he verbalized understanding. Post tx, pt laying in bed, call light in reach and all needs met. Education OT Patient Education: Correct positioning, Modified ADL techniques, Progress toward Goal/Update tx plan, Purpose of tx/functional activities, Rehab process Teaching Recipient: Patient Teaching Methods: Discussion Response to Teaching: Verbalize Understanding OT Snf Goals Satellite Instruction Facilitator Goals Time Frame: Oct 30, 2020 Eating (QC): 6 Toileting Hygiene (QC): 3 Shower/Bathe Self (QC): 3 Upper Body Dressing (QC): 4 Lower Body Dressing (QC): 3 On/Off Footwear (QC): 3 1=Demonstrate adherence to instructed precautions during ADL tasks. 2=Patient will verbalize/demonstrate understanding of assistive devices/modifications for ADL. 3=Patient will improve strength/tolerance for activity to enable patient to perform ADL's. OT Education/Plan Problem List/Assessment Assessment: Decreased Activ Tolerance, Decreased UE Strength, Impaired Funct Balance, Impaired I ADL's, Impaired Self-Care Skills, Restricted Funct UE ROM Discharge Recommendations Plan/Recommendations: Continue POC Therapy Discharge Recommendati: Home & Family Treatment Plan/Plan of Care Patient would benefit from OT for education, treatment and training to promote independence in ADL's, mobility, safety and/or upper extremity function for ADL's. Plan of Care: ADL Retraining, Functional Mobility, UE Funct Exercise/Act Treatment Duration: Oct 30, 2020 Frequency: 5 times per week Estimated Hrs Per Day: .25 hour per day Rehab Potential: Fair Time/GCodes Start Time: 11:25 Stop Time: 11:35 Total Time Billed (hr/min): 10 Billed Treatment Time 1, MILAD KENT OT Oct 19, 2020 12:00
[2020-10-19] MEDS ORDERED: CHOL200059 PO (13:28)
[2020-10-19] MEDS ORDERED: BUPR150T14 PO ×2 (13:28→13:31)
[2020-10-19] MEDS ORDERED: METO50TA15 PO (13:28)
[2020-10-19] MEDS ORDERED: GABA300C PO (13:28)
[2020-10-19] MEDS ORDERED: RT-ALBUINH IH (13:28)
[2020-10-19] MEDS ORDERED: LISI40TA9 PO (13:28)
[2020-10-19] MEDS ORDERED: FLUT16SP22 NS (13:28)
[2020-10-19] MEDS ORDERED: ASPI325T32 PO (13:28)
--- NOTE | 2020-10-19 14:03 | History & Physical ---
PASCALE HOLLEY MED STUDENT 10/19/20 1403: History of Present Illness History of Present Illness Date of Admission Oct 19, 2020 at 00:44 Date Seen by a Provider: Oct 19, 2020 Time Seen by a Provider: 13:10 I consulted on this patient on 10/19/20 13:57 Attending Physician Debbie Pereira DO Admitting Physician Mary Pérez MD Consult Allergies and Home Medications Allergies Coded Allergies: No Known Drug Allergies (Unverified , 03/13/18) Home Medications Albuterol Sulfate 1 Puff Puff, 2 PUFF IH Q4H PRN for SHORTNESS OF BREATH, (Reported) Last Action: Continued Aspirin 325 Mg Tablet.dr, 325 MG PO DAILY, (Reported) Last Action: Continued Atorvastatin Calcium 80 Mg Tablet, 80 MG PO HS, (Reported) Last Action: Continued Baclofen 10 Mg Tablet, 10 MG PO TID PRN for MUSCLE SPASMS, (Reported) Last Action: Continued Bupropion HCl 150 Mg Tablet.er, 150 MG PO BID, (Reported) Last Action: Continued Cholecalciferol (Vitamin D3) 50 Mcg Tablet, 50 MCG PO DAILY, (Reported) Last Action: Converted Clopidogrel Bisulfate 75 Mg Tablet, 75 MG PO DAILY, (Reported) Last Action: Continued Fluticasone Propionate 16 Gm [place].susp, 2 SPRAYS NS DAILY, (Reported) Last Action: Continued Gabapentin 300 Mg Capsule, 900 MG PO TID, (Reported) TAKES 3 (300MG) CAPSULES Last Action: Continued Lisinopril 40 Mg Tablet, 20 MG PO DAILY, (Reported) TAKES (40MG) TABLET Last Action: Continued Past Iakmgkt-Blsjky-Fmzkfu Hx Patient Social History Marrital Status: single Employed/Student: unemployed Tobacco Use?: Yes Tobacco type used: Cigarettes (1/2 PPD x 50 years) Smoking Status: Current Everyday Smoker Smokeless Tobacco Frequency: Never a User Use of E-Cig and/or Vaping dev: No Use of E-Cig and/or Vaping Rajeev: Never a User Substance use?: Yes Substance type: Methamphetamine (Prior), Marijuana (Frequent use) Substance frequency: Daily Alcohol Use?: No Pt feels they are or have been: Yes Immunizations Up To Date Date of Influenza Vaccine: Jan 21, 2020 First/Initial COVID19 Vaccinat: Unsure of date of 1 dose Second COVID19 Vaccination Oskar: Unsure of date of 2nd dose Tetanus Booster (TDap): Less Than 5 Years Date of Pneumonia Vaccine: June 20, 2013 Seasonal Allergies Seasonal Allergies: No Current Status Advance Directives: No Communicates: Verbally Primary Language: Prydeinig Preferred Spoken Language: Prydeinig Is interpretation needed?: No Sensory deficits: Vision impairment Implanted or Applied Medical D: None, Orthopedic hardware Past Medical History Surgeries: Angioplasty, Appendectomy, Cardiac, Coronary Stent, Eye Surgery, Orthopedic, Vascular Surgery COPD Currently Using CPAP: No Currently Using BIPAP: No Coronary Artery Disease, Heart Attack, High Cholesterol, Hypertension, Peripheral Vascular Neuropathy, Stroke, TIA Sexually Transmitted Disease: No HIV/AIDS: No Hepatitis Degenerate Disk Disease, Arthritis, Chronic Back Pain, Fractures Loss of Vision: Bilateral Hearing Impairment: Hard of Hearing Skin Did You Recieve Any Treatments: Yes What Type of Treatment Did You: Surgical Intervention Anxiety, Violent Behavior, Depression Recent Skin Changes Blood Disorders: No Adverse Reaction/Blood Tranf: No Hypertension Hyperlipidemia Carotid stenosis CVA Methamphetamine use Cannabis use Tobacco abuse Family Medical History Cancer 19 FATHER (SKIN) 19 MOTHER Cancer of colon 19 MOTHER Kidney disease 19 FATHER (PASSED KIDNEY FAILURE) SOCIAL HISTORY: -ETOH--OCCASIONAL USE, HX OF HEAVY USE -DRUGS--DAILY MARIJUANA USE, ALSO METH USE. DENIES IV DRUG USE -SMOKES 2 PPD PAST SURGICAL HISTORY: -LAST CARDIAC CATH DONE HERE IN 2013--PATENT STENTS -CARDIAC CATHS WITH STENTS X 3 -BILATERAL CAROTID ENDARTERECTOMY -RIGHT CAROTID STENT 01/21/20 AT -RIGHT EYE SURGERY CHILD -CERVICAL SPINE AND LUMBAR SPINE SURGERIES -LEFT FOOT FRACTURE/ ORIF -SKIN CANCER REMOVAL -APPENDECTOMY Review of Systems Constitutional: No chills, No diaphoresis, No fever, No weight loss EENTM: No hearing loss, No blurred vision, No double vision Respiratory: No cough, No dyspnea on exertion, No hemoptysis, No short of breath Cardiovascular: No chest pain, No edema, No palpitations Gastrointestinal: No abdominal pain, No constipation, No diarrhea, No loss of appetite, No melena, No nausea, No vomiting Genitourinary: No decreased output, No dysuria, No frequency Musculoskeletal: No back pain, No joint pain Skin: No change in color, No change in hair/nails Psychiatric/Neurological: Denies Anxiety, Denies Depressed, Denies Headache; Pre-Existing Deficit (Pre existing deficit R arm and R leg due to prior CVA) All Other Systems Reviewed Negative Unless Noted: Yes Physical Exam Vital Signs Vital Signs - First Documented 10/18/20 21:14 Temp 35.8 Pulse 63 Resp 16 B/P (MAP) 163/83 (109) Pulse Ox 97 O2 Delivery Room Air Capillary Refill : Less Than 3 Seconds Height, Weight, BMI Height: 6'1.00" Weight: 195lbs. 0oz. [id number]; 21.06 BMI Method:Actual General Appearance: No Apparent Distress, Chronically ill Eyes: Bilateral Eye Normal Inspection, Bilateral Eye PERRL, Bilateral Eye EOMI HEENT: PERRL/EOMI, Pharynx Normal, Moist Mucous Membranes Neck: Full Range of Motion, Normal Inspection, Non Tender Respiratory: Chest Non Tender, Lungs Clear, Normal Breath Sounds, No Accessory Muscle Use, No Respiratory Distress Cardiovascular: Regular Rate, Rhythm, Normal Peripheral Pulses Gastrointestinal: Normal Bowel Sounds, Non Tender, Soft; No Distended, No Guarding, No Rebound, No Tenderness Rectal: Deferred Back: Normal Inspection, No CVA Tenderness, No Vertebral Tenderness Extremity: Normal Capillary Refill, Normal Inspection, Non Tender, No Calf Tenderness, No Pedal Edema Neurologic/Psychiatric: Alert, Oriented x3, No Motor/Sensory Deficits, Normal Mood/Affect, Other (R arm weakness and R leg weakness, unchanged from prior CVA) Skin: Normal Color, Warm/Dry Lymphatic: No Adenopathy Assessment/Plan Assessment and Plan Dysphasia Acute vs Subacute occlusion of R carotid system R sided weakness- chronic UTI Elevated troponin Polysubstance abuse CAD MD HLP COPD CVA TIA Hepatitis C, s/p treatment Tobaccoism Continue to monitor neurologic status frequently Rocephin for UTI Cardiology consult, elevated troponin and history UDS positive for THC, encouraged cessation of marijuana Neurochecks per protocol Lovenox Lipitor ASA DC IVF's DEBBIE PEREIRA DO 10/20/20 0541: History of Present Illness History of Present Illness Reason for visit/HPI CC: Dysarthria with weakness HPI: This is a 65[facility] clinic Pt of [place] known to me from prior hospital stays including [facility] recently who has a PMH of multiple strokes and inoperable CAD and peripheral vascular disease who presented to the ER with right-sided weakness with dysarthria and altered mental status. Currently he is doing much better. UTI is being treated with Rocephin and we will discontinue the catheter and IV fluids since he is eating and drinking well. PT and OT will see him in inpatient rehab consulted. To note [facility] stroke neurologist was consulted on this patient as they have multiple times during every ER visit and there is nothing that higher level of care can do for the patient and no intervention indicated Allergies and Home Medications Allergies Coded Allergies: No Known Drug Allergies (Unverified , 03/13/18) Home Medications Albuterol Sulfate 1 Puff Puff, 2 PUFF IH Q4H PRN for SHORTNESS OF BREATH, (Reported) Last Action: Continued Aspirin 325 Mg Tablet.dr, 325 MG PO DAILY, (Reported) Last Action: Continued Atorvastatin Calcium 80 Mg Tablet, 80 MG PO HS, (Reported) Last Action: Continued Baclofen 10 Mg Tablet, 10 MG PO TID PRN for MUSCLE SPASMS, (Reported) Last Action: Continued Bupropion HCl 150 Mg Tablet.er, 150 MG PO BID, (Reported) Last Action: Continued Cholecalciferol (Vitamin D3) 50 Mcg Tablet, 50 MCG PO DAILY, (Reported) Last Action: Converted Clopidogrel Bisulfate 75 Mg Tablet, 75 MG PO DAILY, (Reported) Last Action: Continued Fluticasone Propionate 16 Gm [place].susp, 2 SPRAYS NS DAILY, (Reported) Last Action: Continued Gabapentin 300 Mg Capsule, 900 MG PO TID, (Reported) TAKES 3 (300MG) CAPSULES Last Action: Continued Lisinopril 40 Mg Tablet, 20 MG PO DAILY, (Reported) TAKES (40MG) TABLET Last Action: Continued Patient Home Medication List Home Medication List Reviewed: Yes Past Trhgsth-Ijofhp-Soubbw Hx Patient Social History Marrital Status: single Employed/Student: unemployed Tobacco type used: Cigarettes (1/2 PPD x 50 years) Smokeless Tobacco Frequency: Never a User Past Medical History High Cholesterol, Hypertension Stroke Family Medical History Cancer 19 FATHER (SKIN) 19 MOTHER Cancer of colon 19 MOTHER Kidney disease 19 FATHER (PASSED KIDNEY FAILURE) Review of Systems Constitutional: see HPI, weakness Respiratory: no symptoms reported Cardiovascular: no symptoms reported Gastrointestinal: no symptoms reported Genitourinary: no symptoms reported Musculoskeletal: no symptoms reported Skin: no symptoms reported Physical Exam General Appearance: No Apparent Distress, WD/WN Eyes: Bilateral Eye Normal Inspection, Bilateral Eye PERRL, Bilateral Eye EOMI HEENT: PERRL/EOMI, Normal ENT Inspection, Pharynx Normal Neck: Full Range of Motion, Normal Inspection, Non Tender, Supple, Carotid Bruit Respiratory: Chest Non Tender, Lungs Clear, Normal Breath Sounds, No Accessory Muscle Use, No Respiratory Distress Cardiovascular: Regular Rate, Rhythm, No Edema, No Gallop, No JVD, No Murmur, Normal Peripheral Pulses Gastrointestinal: Normal Bowel Sounds, No Organomegaly, No Pulsatile Mass, Non Tender, Soft Back: Normal Inspection, No CVA Tenderness, No Vertebral Tenderness Extremity: Normal Capillary Refill, Normal Inspection, Normal Range of Motion, Non Tender, No Calf Tenderness, No Pedal Edema Neurologic/Psychiatric: Alert, Oriented x3, Normal Mood/Affect, 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 Norm as Tested, Abnormal Gait, Depressed Affect, Motor Weakness (Right-sided chronic) Skin: Normal Color, Warm/Dry Lymphatic: No Adenopathy Assessment/Plan Assessment and Plan Assessment: Subacute CVA UTI Hypertension CAD PVD Noncompliance History of illicit drug use COPD Smoker Plan: PT and OT Discontinue catheter [facility] stroke neurologist reviewed case again and images and no possible intervention or any higher level of care indicated Problems: (1) Right sided weakness Status: Acute (2) Facial droop Status: Acute (3) Bilateral carotid artery occlusion Status: Acute (4) UTI (urinary tract infection) Status: Acute Qualifiers: Qualified Codes: N39.0 - Urinary tract infection, site not specified Admission Diagnosis Admission Status: Inpatient Order (span 2 midnights) Reason for Inpatient Admission: CVA Supervisory-Addendum Brief Verification & Attestation Participated in pt care: history, MDM, physical Personally performed: exam, history, MDM, supervision of care Care discussed with: Medical Student Procedures: n/a Results interpretation: Verified all documentation Verification and Attestation of Medical Student E/M Service A medical student performed and documented this service in my presence. I reviewed and verified all information documented by the medical student and made modifications to such information, when appropriate. I personally performed the physical exam and medical decision making. Debbie Pereira, Oct 20, 2020,05:41 [facility] MED STUDENT Oct 19, 2020 14:03 DEBBIE PEREIRA DO Oct 20, 2020 05:41
[2020-10-19 16:09] VITALS: BP 182/97
[2020-10-19] MEDS ORDERED: RT-ALBUTEROL SULF 2.5 MG/3 ML PRE-MIX VIAL IH PRN (17:45)
--- NOTE | 2020-10-19 18:01 | Consultation-Cardiology ---
HPI-Cardiology Cardiology Consultation: Date of Consultation 10/19/20 Time Seen by a Provider: 17:10 Date of Admission Attending Physician Debbie Pereira DO Admitting Physician Mary Pérez MD Consulting Physician JUANITA PASCUAL MD, MA, FACP, FACC, FSCAI, CCDS Physician requesting consult: Dr Pereira HPI: Chief Complaint: Reason for consultation: Minimal troponin elevation HPI 65 yo man who was admitted to Dr Pereira's service early this am after he had presented to the ER with confusion and slurring of the speech which prompted his daughter to bring him to the ER. He has chronic R-sided weakness. He thinks his confusion has resolved and his speech is better. He denies cp. He has chronic, exertional shortness of breath. He denies palp or syncope. He denies n/v. He does not report any new visual impairments/disturbances Review of Systems-Cardiology Review of Systems Constitutional: malaise, tiredness; No weight loss, No weight gain Eyes: No vision change Ears/Nose/Throat: No ear discharge, No nasal drainage, No recent hearing loss Respiratory: As described under HPI Cardiovascular: As described under HPI Gastrointestinal: As described under HPI Genitourinary: No hematuria, No urine frequency changes Musculoskeletal: back pain (chronic) Skin: No rash, No ulcerations Psychiatric/Neurological: As described under HPI Hematologic: No bleeding abnormalities All Other Systems Reviewed Negative Unless Noted: Yes VJJ-Qrlodm-Arwgbh Hx Patient Social History Marrital Status: single Employed/Student: unemployed Smoking Status: Current Everyday Smoker 2nd Hand Smoke Exposure: Yes Have you traveled recently?: No Alcohol Use?: No Substance type: Methamphetamine (Prior), Marijuana (Frequent use) Pt feels they are or have been: Yes Tobacco type used: Cigarettes (1/2 PPD x 50 years) Immunizations Up To Date Tetanus Booster (TDap): Less than 5yrs Date of Pneumonia Vaccine: June 20, 2013 Date of Influenza Vaccine: Jan 21, 2020 Past Medical History PMH As described under Assessment. Family Medical History Family Medical History: No family h/o CVA or CAD Family History: Cancer 19 FATHER (SKIN) 19 MOTHER Cancer of colon 19 MOTHER Kidney disease 19 FATHER (PASSED KIDNEY FAILURE) Allergies and Home Medications Allergies Coded Allergies: No Known Drug Allergies (Unverified , 03/13/18) Home Medications Albuterol Sulfate 1 Puff Puff, 2 PUFF IH Q4H PRN for SHORTNESS OF BREATH, (Reported) Last Action: Continued Aspirin 325 Mg Tablet.dr, 325 MG PO DAILY, (Reported) Last Action: Continued Atorvastatin Calcium 80 Mg Tablet, 80 MG PO HS, (Reported) Last Action: Continued Baclofen 10 Mg Tablet, 10 MG PO TID PRN for MUSCLE SPASMS, (Reported) Last Action: Continued Bupropion HCl 150 Mg Tablet.er, 150 MG PO BID, (Reported) Last Action: Continued Cholecalciferol (Vitamin D3) 50 Mcg Tablet, 50 MCG PO DAILY, (Reported) Last Action: Converted Clopidogrel Bisulfate 75 Mg Tablet, 75 MG PO DAILY, (Reported) Last Action: Continued Fluticasone Propionate 16 Gm [place].susp, 2 SPRAYS NS DAILY, (Reported) Last Action: Continued Gabapentin 300 Mg Capsule, 900 MG PO TID, (Reported) TAKES 3 (300MG) CAPSULES Last Action: Continued Lisinopril 40 Mg Tablet, 20 MG PO DAILY, (Reported) TAKES (40MG) TABLET Last Action: Continued Patient Home Medication List Home Medication List Reviewed: Yes Physical Exam-Cardiology Physical Exam Vital Signs/I&O 10/19/20 10/19/20 10/19/20 10/19/20 06:52 08:00 08:00 12:00 Temp 36.4 36.4 Pulse 56 55 60 Resp 20 20 B/P (MAP) 166/81 (109) 170/94 (119) Pulse Ox 97 96 O2 Delivery Room Air Room Air Room Air 10/19/20 10/19/20 13:17 16:09 Temp 36.6 Pulse 68 62 Resp 18 B/P (MAP) 182/97 (125) Pulse Ox 94 O2 Delivery Room Air Capillary Refill : Less Than 3 Seconds Constitutional: AAO x 3, well-developed, well-nourished HEENT: PERRL, other (edentulous jaws), EOMI Neck: No carotid bruit; other (carotid pulses are not palpable) Respiratory: No accessory muscle use; other (fair air entry, prolonged exp, diminished breath sounds at the bases) Cardiovascular: regular rate-rhythm, S1 and S2, systolic murmur (faint MICHAEL at the card base) Gastrointestinal: No tender; soft; No guarding, No rebound; audible bowel sounds Extremities: No clubbing, No cyanosis, No significant edema Neurologic/Psychiatric: oriented x 3, other (R arm has 2-3/5 power; R leg has 4/5 power; Babinski response is that of withdrawal; there appears to contracture around the R elbow; power is 4-5/5 on the L; speech appear slightly slurred) Skin: warm/dry; No rash on exposed areas, No ulcerations on exposed areas Data Review Labs Laboratory Tests 10/18/20 21:47: White Blood Count 15.9H, Red Blood Count 5.23, Hemoglobin 15.2, Hematocrit 48, Mean Corpuscular Volume 91, Mean Corpuscular Hemoglobin 29, Mean Corpuscular Hemoglobin Concent 32, Red Cell Distribution Width 15.1H, Platelet Count 227, Mean Platelet Volume 10.2, Immature Granulocyte % (Auto) 0, Neutrophils (%) (Auto) 83H, Lymphocytes (%) (Auto) 9L, Monocytes (%) (Auto) 6, Eosinophils (%) (Auto) 2, Basophils (%) (Auto) 0, Neutrophils # (Auto) 13.2H, Lymphocytes # (Auto) 1.4, Monocytes # (Auto) 0.9, Eosinophils # (Auto) 0.3, Basophils # (Auto) 0.1, Immature Granulocyte # (Auto) 0.1, Neutrophils % (Manual) 80, Lymphocytes % (Manual) 11, Monocytes % (Manual) 7, Eosinophils % (Manual) 2, Blood Morphology Comment NORMAL, Prothrombin Time 13.6, INR Comment 1.0, Activated Partial Thromboplast Time 24, D-Dimer 0.54H, Sodium Level 141, Potassium Level 4.3, Chloride Level 105, Carbon Dioxide Level 24, Anion Gap 12, Blood Urea Nitrogen 14, Creatinine 1.31H, Estimat Glomerular Filtration Rate 55, BUN/Creatinine Ratio 11, Glucose Level 131H, Calcium Level 10.0, Corrected Calcium 9.9, Total Bilirubin 1.0, Aspartate Amino Transf (AST/SGOT) 15, Alanine Aminotransferase (ALT/SGPT) 15, Alkaline Phosphatase 72, Troponin I 0.038H, Total Protein 7.3, Albumin 4.1, Serum Alcohol < 10 10/18/20 21:51: Glucometer 132H 10/18/20 22:05: Urine Color YELLOW, Urine Clarity SL CLOUDY, Urine pH 6.5, Urine Specific [place] 1.015L, Urine Protein 2+H, Urine Glucose (UA) TRACEH, Urine Ketones TRACEH, Urine Nitrite NEGATIVE, Urine Bilirubin 1+H, Urine Urobilinogen 4.0, Urine Leukocyte Esterase NEGATIVE, Urine RBC (Auto) TRACE-I, Urine RBC 2-5H, Urine WBC 5-10H, Urine Squamous Epithelial Cells 2-5, Urine Renal Epithelial Cells NONE, Urine Crystals NONE, Urine Bacteria FEWH, Urine Casts PRESENT, Urine Hyaline Casts 25-50H, Urine Mucus NEGATIVE, Urine Culture Indicated YES, Urine Opiates Screen NEGATIVE, Urine Oxycodone Screen NEGATIVE, Urine Methadone Screen NEGATIVE, Urine Propoxyphene Screen NEGATIVE, Urine Barbiturates Screen NEGATIVE, Ur Tricyclic Antidepressants Screen NEGATIVE, Urine Phencyclidine Screen NEGATIVE, Urine Amphetamines Screen NEGATIVE, Urine Methamphetamines Screen NEGATIVE, Urine Benzodiazepines Screen NEGATIVE, Urine Cocaine Screen NEGATIVE, Urine Cannabinoids Screen POSITIVEH 10/19/20 04:35: White Blood Count 10.9, Red Blood Count 4.79, Hemoglobin 14.0, Hematocrit 43, Me an Corpuscular Volume 90, Mean Corpuscular Hemoglobin 29, Mean Corpuscular Hemoglobin Concent 33, Red Cell Distribution Width 15.0H, Platelet Count 209, Mean Platelet Volume 10.6, Immature Granulocyte % (Auto) 0, Neutrophils (%) (Auto) 74, Lymphocytes (%) (Auto) 17, Monocytes (%) (Auto) 7, Eosinophils (%) (Auto) 1, Basophils (%) (Auto) 1, Neutrophils # (Auto) 8.1H, Lymphocytes # (Auto) 1.9, Monocytes # (Auto) 0.8, Eosinophils # (Auto) 0.1, Basophils # (Auto) 0.1, Immature Granulocyte # (Auto) 0.0, Sodium Level 140, Potassium Level 3.7, Chloride Level 107, Carbon Dioxide Level 25, Anion Gap 8, Blood Urea Nitrogen 16, Creatinine 1.06, Estimat Glomerular Filtration Rate 71, BUN/Creatinine Ratio 15, Glucose Level 140H, Calcium Level 9.7, Troponin I 0.046H, Triglycerides Level 54, Cholesterol Level 94, LDL Cholesterol Direct 40, VLDL Cholesterol 11, HDL Cholesterol 39L Microbiology 10/18/20 Urine Culture - Final, Complete NO GROWTH Laboratory Tests 10/18/20 21:47 10/19/20 04:35 A/P-Cardiology Assessment/Admission Diagnosis 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 [facility] recommend continuation of ASA and Plavix, no intervention at that time - CTA head at this admission shows common and internal carotid arteries on the left are occluded and, in the interval since the prior study, the right carotid system has become occluded as well. This appears to be acute/subacute occlusion (based on history) Coronary artery disease and h/o cor interventions - Last card cath of 2013 showed patent stents in the proximal LAD: Overlapping Promus 2.75 by 16mm and Promus 3 x 16; the rest of the cors had moderate disease; KVEF was 55% Chronically minimally elevated troponin of undetermined etiology (09/26/20: 0.056; 10/19/20: 0.046). There is no clinical evidence of acute coronary syndrome Hypertension Hyperlipidemia Tobaccoism - repeatedly advised to quit H/O marijuana and heavy EtOH use and h/o meth abuse - repeatedly advised to quit H/O hepatitis C followed at the [facility] COPD Chronically abnormal EKG that shows LVH with repolarization abnormalities Discussion and Recomendations * We recommend transfer to a tertiary care facility with Neurology and Interventional Neuroradiology, given complex carotid arterial disease and repeated strokes * Management of hypertension and what level the blood pressure needs to be maintained at is to be by a Neurology service or the Hospitalist service (Dr Pereira) at this hospital in consultation with a Neurology service * I have communicated these recommendations to JUANITA Easton MD [facility] CCDS Oct 19, 2020 18:01
[2020-10-19 19:29] VITALS: BP 176/86
[2020-10-19] MEDS: GABAPENTIN 300 MG (NEURONTIN) CAP PO SCH (20:38)
[2020-10-19] MEDS: buPROPion SR 150 MG (WELLBUTRIN SR) TAB PO SCH (20:38)
[2020-10-19] MEDS ORDERED: cefTRIAXone 1,000 MG/SWFI 10 ML IV PUSH IV SCH ×2 (21:00)
[2020-10-19] MEDS: BACLOFEN 10 MG (LIORESAL) TAB PO PRN (21:15)
[2020-10-20 00:30] VITALS: BP 176/98
[2020-10-20 03:49] VITALS: BP 170/81
[2020-10-20 06:56] LABS: BASOPHILS # (AUTO) 0.1 10^3/uL (0.0-0.1); BASOPHILS % (AUTO) 1 % (0-10); EOSINOPHILS # (AUTO) 0.6 10^3/uL (0.0-0.3); EOSINOPHILS % (AUTO) 6 % (0-10); HEMATOCRIT 44 % (40-54); HEMOGLOBIN 14.2 g/dL (13.3-17.7); LYMPHOCYTES # (AUTO) 2.2 10^3/uL (1.0-4.0); LYMPHOCYTES % (AUTO) 23 % (12-44); MEAN CORPUSCULAR HEMOGLOBIN 29 pg (25-34); MEAN CORPUSCULAR HGB CONC 33 g/dL (32-36); MEAN CORPUSCULAR VOLUME 89 fL (80-99); MEAN PLATELET VOLUME 11.3 fL (9.0-12.2); MONOCYTES # (AUTO) 0.9 10^3/uL (0.0-1.0); MONOCYTES % (AUTO) 10 % (0-12); NEUTROPHILS # (AUTO) 5.7 10^3/uL (1.8-7.8); NEUTROPHILS % (AUTO) 61 % (42-75); PLATELET COUNT 207 10^3/uL (130-400); WHITE BLOOD COUNT 9.4 10^3/uL (4.3-11.0)
[2020-10-20 07:19] LABS: ALBUMIN 3.7 GM/DL (3.2-4.5); BILIRUBIN,TOTAL 0.9 MG/DL (0.1-1.0); CALCIUM 9.6 MG/DL (8.5-10.1); CREATININE SERUM 0.87 MG/DL (0.60-1.30); POTASSIUM 3.7 MMOL/L (3.6-5.0); TOTAL PROTEIN 6.6 GM/DL (6.4-8.2)
[2020-10-20 08:23] VITALS: BP 194/82
[2020-10-20] MEDS: FLUTICASONE NASAL SPRAY (FLONASE) 16 GM BTL NS SCH (08:27)
[2020-10-20] MEDS: ENOXAPARIN 40 MG/0.4 ML (LOVENOX) SYR SC SCH (08:27)
[2020-10-20] MEDS: GABAPENTIN 300 MG (NEURONTIN) CAP PO SCH ×3 (08:27→19:38)
[2020-10-20] MEDS: ASPIRIN E.C. 325 MG (ECOTRIN) TABLET PO SCH (08:28)
[2020-10-20] MEDS: DOCUSATE SODIUM 100 MG (COLACE) CAP PO SCH ×2 (08:28→19:38)
[2020-10-20] MEDS: buPROPion SR 150 MG (WELLBUTRIN SR) TAB PO SCH ×2 (08:28→19:38)
[2020-10-20] MEDS: CLOPIDOGREL 75 MG (PLAVIX) TABLET PO SCH (08:28)
[2020-10-20] MEDS: VITAMIN D3 25 MCG (1,000 UNITS) TABLET PO SCH (08:28)
[2020-10-20] MEDS: lisINopril 40 MG (PRINIVIL) TABLET PO SCH (08:28)
--- NOTE | 2020-10-20 10:20 | Physical Therapy Daily Note ---
PT Daily Note-Current Subjective Patient agrees to PT. Mental Status Patient Orientation: Normal For Age Transfers SCALE: Activities may be completed with or without assistive devices. 6-Udupspydbk-hipoxzk completes the activity by him/herself with no assistance from a helper. 5-Set-up or Clean-up Assistance-helper sets up or cleans up; patient completes activity. [place] assists only prior to or following the activity. 4-Supervision or Touching Assistance-helper provides verbal cues and/or touching/steadying and/or contact guard assistance as patient completes activity. Assistance may be provided throughout the activity or intermittently. 3-Partial/Moderate Assistance-helper does LESS THAN HALF the effort. [place] lifts, holds or supports trunk or limbs, but provides less than half the effort. 2-Substantial/Maximal Assistance-helper does MORE THAN HALF the effort. [place] lifts or holds trunk or limbs and provides more than half the effort. 9-Mhudoujiz-zwhrke does ALL the effort. Patient does none of the effort to complete the activity. Or, the assistance of 2 or more helpers is required for the patient to complete the activity. If activity was not attempted, code reason: 7-Patient Refused. 9-Not Applicable-not attempted and the patient did not perform the activity befo re the current illness, exacerbation or injury. 10-Not Attempted due to Environmental Limitations-(lack of equipment, weather re straints, etc.). 88-Not Attempted due to Medical Conditions or Safety Concerns. Lying to Sitting/Side of Bed(Q: 5 Sit to Stand (QC): 4 Chair/Uhd-kn-Tgoef Xfer(QC): 4 Gait Training Does the Patient Walk?: Yes Distance: 200' Walk 10 feet (QC): 4 Walk 50 ft with 2 Turns(QC): 4 Walk 150 ft (QC): 4 Gait Assistive Device: Walker Platform (right platform) slight right LE lag with self correct Exercises Supine Ex: Ankle pumps, Quad Set, Heel Slides, Straight leg raise Supine Reps: 12 Seated Therapy Exercises: Ankle pumps, Long arc quads Seated Reps: 12 Assessment Patient up in recliner with needs met. Increase activity as tolerated by patient. PT Social Media Marketing Specialist Goals Residential Goals PT Social Media Marketing Specialist Goals Time Frame: Oct 31, 2020 Roll Left & Right (QC): 4 Sit to Lying (QC): 4 Lying-Sitting on Side/Bed(QC): 4 Sit to Stand (QC): 4 Chair/Rma-np-Gkdcy Xfer(QC): 4 Toilet Transfer (QC): 4 Does the Patient Walk: Yes Walk 10 feet (QC): 4 Walk 50ft with 2 Turns (QC): 4 Walk 150 ft (QC): 4 PT Plan Treatment/Plan Treatment Plan: Continue Plan of Care Treatment Plan: Bed Mobility, Education, Functional Activity [place], Functional Strength, Gait, Safety, Therapeutic Exercise, Transfers Treatment Duration: Oct 31, 2020 Frequency: 6 times per week Estimated Hrs Per Day: .25 hour per day Time/GCodes Time In: 900 Time Out: 923 Total Billed Treatment Time: 23 Total Billed Treatment 1 visit EX 8 min GT 15 min RADHA SALINAS PT Oct 20, 2020 10:20
--- NOTE | 2020-10-20 11:00 | Progress Note ---
PASCALE HOLLEY MED STUDENT 10/20/20 1100: Subjective Date Seen by a Provider: Oct 20, 2020 Time Seen by a Provider: 07:45 Subjective/Events-last exam Reports sleeping well overnight. Complaining of right shoulder pain this am. Denies fevers, chills, nausea, diarrhea, and headache. Tolerating po intake without difficulty. Denies urinary complaints after garcia removal yesterday. Review of Systems General: No Chills, No Night Sweats, No Fatigue HEENT: No Head Aches, No Visual Changes, No Dysphasia Pulmonary: No Dyspnea, No Cough, No Pleuritic Chest Pain Cardiovascular: No: Chest Pain, Palpitations, Orthopnea Gastrointestinal: No: Nausea, Vomiting, Abdominal Pain, Diarrhea, Constipation Genitourinary: No Dysuria, No Frequency, No Hematuria, No Retention Musculoskeletal: shoulder pain (R shoulder pain); No: neck pain, back pain Neurological: Weakness (chronic weakness right arm and right leg); No: Change in speech, Confusion, Seizures Objective Exam Last Set of Vital Signs Vital Signs Date Time Temp Pulse Resp B/P (MAP) Pulse Ox O2 Delivery O2 Flow Rate FiO2 10/20/20 08:23 36.1 62 18 194/82 (119) 93 Room Air Capillary Refill : Less Than 3 Seconds I&O Intake and Output 10/19/20 23:59 Intake Total 1722 ml Output Total 1450 ml Balance 272 ml Intake Oral 1722 ml Output Urine Total 1450 ml Daily Weight Change Yes, 14-23 lbs General: Alert, Oriented X3, Cooperative, No Acute Distress HEENT: Atraumatic, PERRLA, EOMI, Mucous Memb Moist/Jolly Neck: Supple, No LAD Lungs: Clear to Auscultation, Other (Diminished bibasilar) Heart: Regular Rate, No Murmurs Abdomen: Normal Bowel Sounds, Soft, No Tenderness Extremities: No Clubbing, No Cyanosis, No Edema, Normal Pulses, No Tenderness/Swelling Skin: No Rashes, No Breakdown Neuro: Sensation Intact, Other (3/5 Right lower hip flexion. Profound weakness of right shoulder flexion after old CVA. ) Psych/Mental Status: Mood NL Results Lab Laboratory Tests 10/20/20 06:15: White Blood Count 9.4, Red Blood Count 4.92, Hemoglobin 14.2, Hematocrit 44, Mean Corpuscular Volume 89, Mean Corpuscular Hemoglobin 29, Mean Corpuscular Hemoglobin Concent 33, Red Cell Distribution Width 14.6H, Platelet Count 207, Mean Platelet Volume 11.3, Immature Granulocyte % (Auto) 0, Neutrophils (%) (Auto) 61, Lymphocytes (%) (Auto) 23, Monocytes (%) (Auto) 10, Eosinophils (%) (Auto) 6, Basophils (%) (Auto) 1, Neutrophils # (Auto) 5.7, Lymphocytes # (Auto) 2.2, Monocytes # (Auto) 0.9, Eosinophils # (Auto) 0.6H, Basophils # (Auto) 0.1, Immature Granulocyte # (Auto) 0.0, Sodium Level 142, Potassium Level 3.7, Chloride Level 108H, Carbon Dioxide Level 23, Anion Gap 11, Blood Urea Nitrogen 16, Creatinine 0.87, Estimat Glomerular Filtration Rate 89, BUN/Creatinine Ratio 18, Glucose Level 95, Calcium Level 9.6, Corrected Calcium 9.8, Total Bilirubin 0.9, Aspartate Amino Transf (AST/SGOT) 19, Alanine Aminotransferase (ALT/SGPT) 18, Alkaline Phosphatase 73, Total Protein 6.6, Albumin 3.7 Microbiology 10/18/20 Urine Culture - Final, Complete NO GROWTH Assessment/Plan Assessment/Plan Assess & Plan/Chief Complaint Dysphasia Acute vs Subacute occlusion of R carotid system R sided weakness- chronic UTI Elevated troponin Polysubstance abuse CAD [facility] COPD CVA TIA Hepatitis C, s/p treatment Tobaccoism Discontinue rocephin, final culture no growth UDS positive for THC, encouraged cessation of marijuana Discontinue neurochecks Lovenox Lipitor ASA Cardiac Diet OT consult today SW working on placement for patient Clinical Quality Measures Admission Status Admission Dx Dysphasia Acute vs Subacute occlusion of R carotid system R sided weakness- chronic UTI Elevated troponin Polysubstance abuse CAD [facility] COPD CVA TIA Hepatitis C, s/p treatment Tobaccoism Continue to monitor neurologic status frequently Rocephin for UTI Cardiology consult, elevated troponin and history UDS positive for THC, encouraged cessation of marijuana Neurochecks per protocol Lovenox Lipitor ASA DC IVF's DEBBIE BECK DO 10/21/20 0558: Subjective Subjective/Events-last exam Pt doing much better Able to void well Bowels are moving Right arm is hurting so will obtain sling to help relieve that pressure PT and OT ordered Review of Systems General: Fatigue, Malaise Objective Exam General: Alert, Oriented X3, Cooperative, No Acute Distress Lungs: Clear to Auscultation, Normal Air Movement Heart: Regular Rate, Normal S1, Normal S2, No Murmurs Neuro: Normal Speech, Normal Tone Psych/Mental Status: Mental Status NL Assessment/Plan Assessment/Plan Assess & Plan/Chief Complaint Awaiting placement DC antibiotics PT and OT Supervisory-Addendum Brief Verification & Attestation Participated in pt care: history, MDM, physical Personally performed: exam, history, MDM, supervision of care Care discussed with: Medical Student Procedures: n/a Results interpretation: Verified all documentation Verification and Attestation of Medical Student E/M Service A medical student performed and documented this service in my presence. I reviewed and verified all information documented by the medical student and made modifications to such information, when appropriate. I personally performed the physical exam and medical decision making. Debbie Beck Oct 21, 2020,05:57 PASCALE HOLLEY MED STUDENT Oct 20, 2020 11:00 DEBBIE BECK DO Oct 21, 2020 05:58
[2020-10-20 11:48] VITALS: BP 164/91
--- NOTE | 2020-10-20 14:18 | Occupational Ther Daily Note ---
OT Current Status-Daily Note Subjective Pt alert, sitting in recliner. SW was visiting with pt about his bank account and what to do since he is worried that his daughter will spend his money. Pt agrees to therapy. Mental Status/Objective Patient Orientation: Person, Place, Time, Situation Attachments: IV ADL-Treatment Mod A for sit to stand due to R LE extended and only L LE used. CGA using rosalva tform FWW to ambulate to bathroom. Pt able to manipulate clothing with CGA then sat onto toilet with CGA. Pt requested to continue to sit to have a BM. Nrsg aware of pt's position. All needs met in room. Therapy Code Descriptions/Definitions Functional [place] Measure: 0=Not Assessed/NA 4=Minimal Assistance 1=Total Assistance 5=Supervision or Setup 2=Maximal Assistance 6=Modified [place] 3=Moderate Assistance 7=Complete IndependenceSCALE: Activities may be completed with or without assistive devices. 8-Xninpqxfcl-uhgppvc completes the activity by him/herself with no assistance from a helper. 5-Set-up or Clean-up Assistance-helper sets up or cleans up; patient completes activity. [place] assists only prior to or following the activity. 4-Supervision or Touching Assistance-helper provides verbal cues and/or touching/steadying and/or contact guard assistance as patient completes activity. Assistance may be provided throughout the activity or intermittently. 3-Partial/Moderate Assistance-helper does LESS THAN HALF the effort. [place] lifts, holds or supports trunk or limbs, but provides less than half the effort. 2-Substantial/Maximal Assistance-helper does MORE THAN HALF the effort. [place] lifts or holds trunk or limbs and provides more than half the effort. 1-Eripaewsm-jerpbx does ALL the effort. Patient does none of the effort to complete the activity. Or, the assistance of 2 or more helpers is required for the patient to complete the activity. If activity was not attempted, code reason: 7-Patient Refused. 9-Not Applicable-not attempted and the patient did not perform the activity before the current illness, exacerbation or injury. 10-Not Attempted due to Environmental Limitations-(lack of equipment, weather restraints, etc.). 88-Not Attempted due to Medical Conditions or Safety Concerns. OT Mcfp Goals Bottle Assembler Goals Time Frame: Oct 30, 2020 Eating (QC): 6 Toileting Hygiene (QC): 3 Shower/Bathe Self (QC): 3 Upper Body Dressing (QC): 4 Lower Body Dressing (QC): 3 On/Off Footwear (QC): 3 1=Demonstrate adherence to instructed precautions during ADL tasks. 2=Patient will verbalize/demonstrate understanding of assistive devices/modifications for ADL. 3=Patient will improve strength/tolerance for activity to enable patient to perform ADL's. OT Education/Plan Problem List/Assessment Assessment: Decreased Activ Tolerance, Impaired Self-Care Skills, Restricted Funct UE ROM Discharge Recommendations Plan/Recommendations: Continue POC Treatment Plan/Plan of Care Patient would benefit from OT for education, treatment and training to promote independence in ADL's, mobility, safety and/or upper extremity function for ADL's. Plan of Care: ADL Retraining, Functional Mobility, UE Funct Exercise/Act Treatment Duration: Oct 30, 2020 Frequency: 5 times per week Estimated Hrs Per Day: .25 hour per day Rehab Potential: Fair Time/GCodes Start Time: 13:55 Stop Time: 14:14 Total Time Billed (hr/min): 19 Billed Treatment Time 1 visit-ADL 1 (19 min) CIPRIANO CASTRO Oct 20, 2020 14:18
[2020-10-20 15:55] VITALS: BP 137/78
[2020-10-20 19:00] VITALS: BP 192/90
[2020-10-20] MEDS: BACLOFEN 10 MG (LIORESAL) TAB PO PRN (19:44)
[2020-10-21] VITALS (7 sets, daily range): BP systolic 116–188; BP diastolic 63–92
[2020-10-21] MEDS: BACLOFEN 10 MG (LIORESAL) TAB PO PRN ×3 (03:10→21:17)
[2020-10-21 06:13] LABS: BASOPHILS # (AUTO) 0.1 10^3/uL (0.0-0.1); BASOPHILS % (AUTO) 1 % (0-10); EOSINOPHILS # (AUTO) 0.5 10^3/uL (0.0-0.3); EOSINOPHILS % (AUTO) 4 % (0-10); HEMATOCRIT 45 % (40-54); HEMOGLOBIN 14.6 g/dL (13.3-17.7); LYMPHOCYTES # (AUTO) 2.5 10^3/uL (1.0-4.0); LYMPHOCYTES % (AUTO) 21 % (12-44); MEAN CORPUSCULAR HEMOGLOBIN 29 pg (25-34); MEAN CORPUSCULAR HGB CONC 32 g/dL (32-36); MEAN CORPUSCULAR VOLUME 90 fL (80-99); MEAN PLATELET VOLUME 10.6 fL (9.0-12.2); MONOCYTES # (AUTO) 1.1 10^3/uL (0.0-1.0); MONOCYTES % (AUTO) 9 % (0-12); NEUTROPHILS # (AUTO) 7.8 10^3/uL (1.8-7.8); NEUTROPHILS % (AUTO) 65 % (42-75); PLATELET COUNT 204 10^3/uL (130-400); WHITE BLOOD COUNT 11.9 10^3/uL (4.3-11.0)
[2020-10-21 06:20] LABS: ALBUMIN 3.8 GM/DL (3.2-4.5)
[2020-10-21 06:22] LABS: CALCIUM 9.9 MG/DL (8.5-10.1)
[2020-10-21 06:23] LABS: TOTAL PROTEIN 6.7 GM/DL (6.4-8.2)
[2020-10-21 06:25] LABS: BILIRUBIN,TOTAL 0.9 MG/DL (0.1-1.0)
[2020-10-21 06:27] LABS: CREATININE SERUM 0.89 MG/DL (0.60-1.30)
[2020-10-21] MEDS: ASPIRIN E.C. 325 MG (ECOTRIN) TABLET PO SCH (08:48)
[2020-10-21] MEDS: ENOXAPARIN 40 MG/0.4 ML (LOVENOX) SYR SC SCH (08:48)
[2020-10-21] MEDS: DOCUSATE SODIUM 100 MG (COLACE) CAP PO SCH ×2 (08:49→21:16)
[2020-10-21] MEDS: GABAPENTIN 300 MG (NEURONTIN) CAP PO SCH ×3 (08:49→21:17)
[2020-10-21] MEDS: buPROPion SR 150 MG (WELLBUTRIN SR) TAB PO SCH ×2 (08:49→21:16)
[2020-10-21] MEDS: lisINopril 40 MG (PRINIVIL) TABLET PO SCH (08:49)
[2020-10-21] MEDS: VITAMIN D3 25 MCG (1,000 UNITS) TABLET PO SCH (08:49)
[2020-10-21] MEDS: CLOPIDOGREL 75 MG (PLAVIX) TABLET PO SCH (08:49)
[2020-10-21] MEDS: FLUTICASONE NASAL SPRAY (FLONASE) 16 GM BTL NS SCH (08:49)
[2020-10-21] MEDS ORDERED: amLODIPine 5 MG (NORVASC) TAB PO NR (09:45)
--- NOTE | 2020-10-21 11:17 | Physical Therapy Daily Note ---
PT Daily Note-Current Subjective Pt in bed upon arrival and agrees to tx. Mental Status Patient Orientation: Person, Place, Time Transfers SCALE: Activities may be completed with or without assistive devices. 3-Ecyqeryehg-yriqhtf completes the activity by him/herself with no assistance from a helper. 5-Set-up or Clean-up Assistance-helper sets up or cleans up; patient completes activity. [place] assists only prior to or following the activity. 4-Supervision or Touching Assistance-helper provides verbal cues and/or touching/steadying and/or contact guard assistance as patient completes activity. Assistance may be provided throughout the activity or intermittently. 3-Partial/Moderate Assistance-helper does LESS THAN HALF the effort. [place] lifts, holds or supports trunk or limbs, but provides less than half the effort. 2-Substantial/Maximal Assistance-helper does MORE THAN HALF the effort. [place] lifts or holds trunk or limbs and provides more than half the effort. 4-Rsiavejbn-zcsyok does ALL the effort. Patient does none of the effort to complete the activity. Or, the assistance of 2 or more helpers is required for the patient to complete the activity. If activity was not attempted, code reason: 7-Patient Refused. 9-Not Applicable-not attempted and the patient did not perform the activity before the current illness, exacerbation or injury. 10-Not Attempted due to Environmental Limitations-(lack of equipment, weather restraints, etc.). 88-Not Attempted due to Medical Conditions or Safety Concerns. Lying to Sitting/Side of Bed(Q: 4 Sit to Stand (QC): 4 Pt supine to sitting required VC for LE advancement and CGA once sitting EOB. Pt sit to stand required CGA. Gait Training Does the Patient Walk?: Yes Distance: 200' Walk 10 feet (QC): 4 Walk 50 ft with 2 Turns(QC): 4 Walk 150 ft (QC): 4 Gait Persons Needed: 1 Gait Assistive Device: Walker Platform Pt amb from bed and around unit. Pt has slight LOB but self corrected. Pt required VC to take wide steps and flex R LE. Pt has slight R neglect, required VC to avoid running into objects in halls. Treatments Pt performs bed mobility followed by amb in hallway. Pt request to sit in recliner post tx, pt left in recliner with all needs met, call light in hand. Assessment Current Status: Good Progress Pt limited d/t weakness and R neglect. PT Intermediate Goals Intermediate Goals PT Lace Sewer Goals Time Frame: Oct 31, 2020 Roll Left & Right (QC): 4 Sit to Lying (QC): 4 Lying-Sitting on Side/Bed(QC): 4 Sit to Stand (QC): 4 Chair/Cko-mp-Btsnu Xfer(QC): 4 Toilet Transfer (QC): 4 Does the Patient Walk: Yes Walk 10 feet (QC): 4 Walk 50ft with 2 Turns (QC): 4 Walk 150 ft (QC): 4 PT Plan Problem List Problem List: Activity Tolerance, Safety Treatment/Plan Treatment Plan: Continue Plan of Care Treatment Plan: Bed Mobility, Education, Functional Activity Dutch, Functional Strength, Gait, Safety, Therapeutic Exercise, Transfers Treatment Duration: Oct 31, 2020 Frequency: 6 times per week Estimated Hrs Per Day: .25 hour per day Safety Risks/Education Patient Education: Gait Training Teaching Recipient: Patient Teaching Methods: Discussion Response to Teaching: Verbalize Understanding Time/GCodes Time In: 1030 Time Out: 1047 Total Billed Treatment Time: 17 Total Billed Treatment 1, GT MARIE ROCKWELL HEAD SHIPPER Oct 21, 2020 11:17
--- NOTE | 2020-10-21 11:34 | Occupational Ther Daily Note ---
OT Current Status-Daily Note Subjective Pt alert, lying in bed. Pt agrees to therapy. No c/o pain. Mental Status/Objective Patient Orientation: Person, Place, Time, Situation Attachments: IV ADL-Treatment Therapy Code Descriptions/Definitions Functional [place] Measure: 0=Not Assessed/NA 4=Minimal Assistance 1=Total Assistance 5=Supervision or Setup 2=Maximal Assistance 6=Modified [place] 3=Moderate Assistance 7=Complete IndependenceSCALE: Activities may be completed with or without assistive devices. 6-Wpwonsqbir-nauedlr completes the activity by him/herself with no assistance from a helper. 5-Set-up or Clean-up Assistance-helper sets up or cleans up; patient completes activity. [place] assists only prior to or following the activity. 4-Supervision or Touching Assistance-helper provides verbal cues and/or touching/steadying and/or contact guard assistance as patient completes activity. Assistance may be provided throughout the activity or intermittently. 3-Partial/Moderate Assistance-helper does LESS THAN HALF the effort. [place] lifts, holds or supports trunk or limbs, but provides less than half the effort. 2-Substantial/Maximal Assistance-helper does MORE THAN HALF the effort. [place] lifts or holds trunk or limbs and provides more than half the effort. 1-Xadmqlvgp-mjobgm does ALL the effort. Patient does none of the effort to complete the activity. Or, the assistance of 2 or more helpers is required for the patient to complete the activity. If activity was not attempted, code reason: 7-Patient Refused. 9-Not Applicable-not attempted and the patient did not perform the activity before the current illness, exacerbation or injury. 10-Not Attempted due to Environmental Limitations-(lack of equipment, weather restraints, etc.). 88-Not Attempted due to Medical Conditions or Safety Concerns. Other Treatment Supine to EOB independent. CGA for sit <--> stand with verbal cues. CGA and verbal cues to look toward R side with ambulation using platform FWW. Pt declined toileting and was already dressed. Pt ambulated 200ft using platform with CGA and verbal cues. After session, pt sitting in recliner with call light/phone in reach. All needs met in room. OT Mixer Runner Goals Custodial Goals Time Frame: Oct 30, 2020 Eating (QC): 6 Toileting Hygiene (QC): 3 Shower/Bathe Self (QC): 3 Upper Body Dressing (QC): 4 Lower Body Dressing (QC): 3 On/Off Footwear (QC): 3 1=Demonstrate adherence to instructed precautions during ADL tasks. 2=Patient will verbalize/demonstrate understanding of assistive devices/modifications for ADL. 3=Patient will improve strength/tolerance for activity to enable patient to perform ADL's. OT Education/Plan Problem List/Assessment Assessment: Decreased Activ Tolerance, Decreased Safety Aware, Decreased UE Strength, Impaired Self-Care Skills, Restricted Funct UE ROM Discharge Recommendations Plan/Recommendations: Continue POC Treatment Plan/Plan of Care Patient would benefit from OT for education, treatment and training to promote independence in ADL's, mobility, safety and/or upper extremity function for ADL's. Plan of Care: ADL Retraining, Functional Mobility, UE Funct Exercise/Act Treatment Duration: Oct 30, 2020 Frequency: 5 times per week Estimated Hrs Per Day: .25 hour per day Rehab Potential: Fair Time/GCodes Start Time: 10:30 Stop Time: 10:47 Total Time Billed (hr/min): 17 Billed Treatment Time 1 visit-FA 1 (17 min) CIPRIANO CASTRO Oct 21, 2020 11:34
--- NOTE | 2020-10-21 13:39 | Progress Note ---
CAROLINE JONES 10/21/20 1339: Subjective Date Seen by a Provider: Oct 21, 2020 Time Seen by a Provider: 10:05 Subjective/Events-last exam Today Mr. Matute was feeling well and has no questions nor concerns. Right shoulder pain has improved. Is sleeping and eating well. Endorses constipation since admission, but denies abdominal pain/discomfort. Continues to work with OT/PT and is seeing some improvement. Denies fevers, chills, SOB. Denies nausea, vomiting. Endorses right sided weakness. Review of Systems General: No Chills, No Night Sweats, No Fatigue, No Malaise HEENT: No Head Aches; Dysphasia Pulmonary: No Dyspnea, No Cough, No Pleuritic Chest Pain, No Other Cardiovascular: No: Chest Pain, Palpitations, Orthopnea, Paroxysmal Noc. Dyspnea, Edema, Lt Headedness, Other Gastrointestinal: No: Nausea, Vomiting, Abdominal Pain, Diarrhea, Constipation Genitourinary: No Dysuria, No Frequency, No Incontinence Musculoskeletal: No: shoulder pain Neurological: Weakness, Change in speech Objective Exam Last Set of Vital Signs Vital Signs Date Time Temp Pulse Resp B/P (MAP) Pulse Ox O2 Delivery O2 Flow Rate FiO2 10/21/20 08:00 36.4 64 20 151/70 (97) 94 Room Air Capillary Refill : Less Than 3 Seconds I&O Intake and Output 10/21/20 00:00 Intake Total 2430 ml Output Total 1450 ml Balance 980 ml Intake Oral 2430 ml Output Urine Total 1450 ml # Bowel Movements 3 General: Alert, Oriented X3, Cooperative, No Acute Distress Lungs: Clear to Auscultation, Normal Air Movement Heart: Regular Rate, Normal S1, Normal S2 Abdomen: Normal Bowel Sounds Psych/Mental Status: Mental Status NL Results Lab Laboratory Tests 10/21/20 06:03: White Blood Count 11.9H, Red Blood Count 5.01, Hemoglobin 14.6, Hematocrit 45, Mean Corpuscular Volume 90, Mean Corpuscular Hemoglobin 29, Mean Corpuscular Hemoglobin Concent 32, Red Cell Distribution Width 14.9H, Platelet Count 204, Mean Platelet Volume 10.6, Immature Granulocyte % (Auto) 0, Neutrophils (%) (Auto) 65, Lymphocytes (%) (Auto) 21, Monocytes (%) (Auto) 9, Eosinophils (%) (Auto) 4, Basophils (%) (Auto) 1, Neutrophils # (Auto) 7.8, Lymphocytes # (Auto) 2.5, Monocytes # (Auto) 1.1H, Eosinophils # (Auto) 0.5H, Basophils # (Auto) 0.1, Immature Granulocyte # (Auto) 0.0, Sodium Level 139, Potassium Level 4.0, Chloride Level 106, Carbon Dioxide Level 24, Anion Gap 9, Blood Urea Nitrogen 20H, Creatinine 0.89, Estimat Glomerular Filtration Rate 86, BUN/Creatinine Ratio 22, Glucose Level 104, Calcium Level 9.9, Corrected Calcium 10.1, Total Bilirubin 0.9, Aspartate Amino Transf (AST/SGOT) 16, Alanine Aminotransferase (ALT/SGPT) 17, Alkaline Phosphatase 72, Total Protein 6.7, Albumin 3.8 Microbiology 10/18/20 Urine Culture - Final, Complete NO GROWTH Assessment/Plan Assessment/Plan Assess & Plan/Chief Complaint Jason Matute is a 65yo m w/ a pmh of dysphasia, R carotid occlusion, 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 Current problems include hypertension, right sided weakness, cough, constipation, and placement. Active problems and plans include the following: CVA Right sided weaknes -Per stroke team: no intervention indicated -Continue Lovenox, Lipitor, ASA, Cardiac Diet -Continue to work with PT/OT -SW working on placement for patient Hypertension -10/20: Elevated pressures noted overnight -Begin Amlodipine 5mg po qday Cough -Encourage incentive spirometry Constipation -Continue to follow Placement -SW currently working on SNF placement following discharge. Substance use: -UDS positive for THC, encouraged cessation of marijuana PRUDENCE BECK DO 10/22/20 0529: Subjective Subjective/Events-last exam Pt awaiting [facility] placement Needs one so he can smoke Norvasc of 5 mg will be added to gain control of BP ProAir two puffs TID will be evaluated IS will be ordered Review of Systems General: Fatigue, Malaise Pulmonary: Dyspnea Objective Exam General: Alert, Oriented X3, Cooperative, No Acute Distress Lungs: Clear to Auscultation, Normal Air Movement Heart: Regular Rate, Normal S1, Normal S2, No Murmurs Psych/Mental Status: Mental Status NL, Mood NL Assessment/Plan Assessment/Plan Assess & Plan/Chief Complaint Await disposition [facility] placement ProAir Incentive spirometer Supervisory-Addendum Brief Verification & Attestation Participated in pt care: history, MDM, physical Personally performed: exam, history, MDM, supervision of care Care discussed with: Medical Student Procedures: n/a Results interpretation: Verified all documentation Verification and Attestation of Medical Student E/M Service A medical student performed and documented this service in my presence. I reviewed and verified all information documented by the medical student and made modifications to such information, when appropriate. I personally performed the physical exam and medical decision making. Prudence Beck, Oct 22, 2020,05:28 CAROLINE JONES Oct 21, 2020 13:39 PRUDENCE BECK DO Oct 22, 2020 05:29
[2020-10-21] MEDS: amLODIPine 5 MG (NORVASC) TAB PO SCH (21:17)
[2020-10-21] MEDS: RT-ALBUTEROL HFA 8.5 GM INHALER IH SCH (23:14)
[2020-10-22 04:00] VITALS: BP 147/89
[2020-10-22 08:00] VITALS: BP 185/83
[2020-10-22] MEDS: buPROPion SR 150 MG (WELLBUTRIN SR) TAB PO SCH ×2 (09:04→21:47)
[2020-10-22] MEDS: GABAPENTIN 300 MG (NEURONTIN) CAP PO SCH ×3 (09:04→21:47)
[2020-10-22] MEDS: DOCUSATE SODIUM 100 MG (COLACE) CAP PO SCH ×2 (09:04→21:47)
[2020-10-22] MEDS: ASPIRIN E.C. 325 MG (ECOTRIN) TABLET PO SCH (09:04)
[2020-10-22] MEDS: amLODIPine 5 MG (NORVASC) TAB PO SCH ×2 (09:05→21:43)
[2020-10-22] MEDS: FLUTICASONE NASAL SPRAY (FLONASE) 16 GM BTL NS SCH (09:05)
[2020-10-22] MEDS: ENOXAPARIN 40 MG/0.4 ML (LOVENOX) SYR SC SCH (09:05)
[2020-10-22] MEDS: lisINopril 40 MG (PRINIVIL) TABLET PO SCH (09:05)
[2020-10-22] MEDS: VITAMIN D3 25 MCG (1,000 UNITS) TABLET PO SCH (09:05)
[2020-10-22] MEDS: CLOPIDOGREL 75 MG (PLAVIX) TABLET PO SCH (09:06)
--- NOTE | 2020-10-22 09:26 | Physical Therapy Daily Note ---
PT Daily Note-Current Subjective Patient in bed pre tx, agrees to PT, has no complaints of pain. Appearance Patient in recliner post tx with nurse call, phone, tray, all needs met. Mental Status Patient Orientation: Person, Place, Situation Transfers SCALE: Activities may be completed with or without assistive devices. 9-Mcwsedydzn-qmwbpsf completes the activity by him/herself with no assistance from a helper. 5-Set-up or Clean-up Assistance-helper sets up or cleans up; patient completes activity. [place] assists only prior to or following the activity. 4-Supervision or Touching Assistance-helper provides verbal cues and/or touching /steadying and/or contact guard assistance as patient completes activity. Assistance may be provided throughout the activity or intermittently. 3-Partial/Moderate Assistance-helper does LESS THAN HALF the effort. [place] lifts, holds or supports trunk or limbs, but provides less than half the effort. 2-Substantial/Maximal Assistance-helper does MORE THAN HALF the effort. [place] lifts or holds trunk or limbs and provides more than half the effort. 0-Ypaelgaih-esotid does ALL the effort. Patient does none of the effort to complete the activity. Or, the assistance of 2 or more helpers is required for the patient to complete the activity. If activity was not attempted, code reason: 7-Patient Refused. 9-Not Applicable-not attempted and the patient did not perform the activity before the current illness, exacerbation or injury. 10-Not Attempted due to Environmental Limitations-(lack of equipment, weather restraints, etc.). 88-Not Attempted due to Medical Conditions or Safety Concerns. Roll Left & Right (QC): 6 Lying to Sitting/Side of Bed(Q: 3 Sit to Stand (QC): 3 Chair/Hbp-wi-Cdvhm Xfer(QC): 4 Gait Training Distance: 300' Walk 10 feet (QC): 4 Walk 50 ft with 2 Turns(QC): 4 Walk 150 ft (QC): 4 Gait Assistive Device: Walker Platform CGA, steppage gait with right leg, slow but steady ambulation Exercises Seated Therapy Exercises: Ankle pumps (not performed on right side), Long arc quads Seated Reps: 20 Treatments bed mobility and transfers, ambulation, LE strengthening Assessment Current Status: Fair Progress improving endurance PT Retirement Goals Assistant Branch Manager Goals PT Assistant Branch Manager Goals Time Frame: Oct 31, 2020 Roll Left & Right (QC): 4 Sit to Lying (QC): 4 Lying-Sitting on Side/Bed(QC): 4 Sit to Stand (QC): 4 Chair/Rqm-bm-Mkgnk Xfer(QC): 4 Toilet Transfer (QC): 4 Does the Patient Walk: Yes Walk 10 feet (QC): 4 Walk 50ft with 2 Turns (QC): 4 Walk 150 ft (QC): 4 PT Plan Problem List Problem List: Activity Tolerance, Functional Strength, Safety, Balance, Gait, Transfer, Bed Mobility, ROM Treatment/Plan Treatment Plan: Continue Plan of Care Treatment Plan: Bed Mobility, Education, Functional Activity Dutch, Functional Strength, Gait, Safety, Therapeutic Exercise, Transfers Treatment Duration: Oct 31, 2020 Frequency: 6 times per week Estimated Hrs Per Day: .25 hour per day Safety Risks/Education Patient Education: Gait Training, Transfer Techniques, Correct Positioning, Sa fety Issues Teaching Recipient: Patient Teaching Methods: Demonstration, Discussion Response to Teaching: Reinforcement Needed Time/GCodes Time In: 08 Time Out: 08 Total Billed Treatment Time: 19 Total Billed Treatment 1 visit FA 19' IAN PETTY PT Oct 22, 2020 09:26
--- NOTE | 2020-10-22 10:21 | Progress Note ---
CAROLINE JONES Bryn 10/22/20 1021: Subjective Date Seen by a Provider: Oct 22, 2020 Time Seen by a Provider: 11:15 Subjective/Events-last exam Today Mr. Matute reports that he is doing well and has no questions nor concerns. Endorses persistent constipation, but w/o pain. Reports mild headache Reports being okay with going to [facility], as long as he is in a different area than where his daughter works. Review of Systems General: No Chills, No Night Sweats, No Fatigue, No Malaise, No Appetite, No Other HEENT: Head Aches Pulmonary: No Dyspnea, No Cough Cardiovascular: No: Chest Pain, Palpitations Gastrointestinal: Constipation; No: Nausea, Vomiting, Abdominal Pain, Diarrhea Genitourinary: No Dysuria, No Frequency, No Incontinence Objective Exam Last Set of Vital Signs Vital Signs Date Time Temp Pulse Resp B/P (MAP) Pulse Ox O2 Delivery O2 Flow Rate FiO2 10/22/20 08:00 36.4 58 20 185/83 (117) 95 Room Air Capillary Refill : Less Than 3 Seconds I&O Intake and Output 10/22/20 00:00 Intake Total 3100 ml Output Total 1275 ml Balance 1825 ml Intake Oral 2080 ml IV Total 1020 ml Output Urine Total 1275 ml General: Alert, Oriented X3, Cooperative, No Acute Distress Lungs: Clear to Auscultation, Normal Air Movement Heart: Regular Rate, Normal S1, Normal S2 Abdomen: Normal Bowel Sounds, Soft, No Tenderness Extremities: Normal Pulses Psych/Mental Status: Mental Status NL Results Lab Microbiology 10/18/20 Urine Culture - Final, Complete NO GROWTH Assessment/Plan Assessment/Plan Assess & Plan/Chief Complaint Jason Matute is a 65yo m w/ a pmh of dysphasia, R carotid occlusion, R sided 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 Current problems include hypertension, right sided weakness, cough, constipation, and placement. Active problems and plans include the following: CVA Right sided weaknes -Per [facility] stroke team: no intervention indicated -Continue Lovenox, Lipitor, ASA, Cardiac Diet -Continue to work with PT/OT -SW working on placement for patient Constipation -Add miralax, lactulose to current bowel regimen Shoulder pain -10/22: Recurrence of right shoulder pain and back pain Plan: -Begin hydrocodone/apap 5mg qday Hypertension -10/20: Elevated pressures noted overnight -Begin Amlodipine 5mg BID po qday Cough -Encourage incentive spirometry -Begin albuterol inhaler Placement -SW currently working on SNF placement following discharge. Substance use: -UDS positive for THC, encouraged cessation of marijuana DEBBIE BECK DO 10/23/20 0555: Subjective Subjective/Events-last exam Patient willing to go to [facility] and rehab Supportive care will continue Supervisory-Addendum Brief Verification & Attestation Participated in pt care: history, MDM, physical Personally performed: exam, history, MDM, supervision of care Care discussed with: Medical Student Procedures: n/a Results interpretation: Verified all documentation Verification and Attestation of Medical Student E/M Service A medical student performed and documented this service in my presence. I reviewed and verified all information documented by the medical student and made modifications to such information, when appropriate. I personally performed the physical exam and medical decision making. Debbie Beck, Oct 23, 2020,05:55 CAROLINE JONES Oct 22, 2020 10:21 DEBBIE BECK DO Oct 23, 2020 05:55
--- NOTE | 2020-10-22 11:04 | ST Dysphagia Evaluation ---
Speech Evaluation-General Medical Diagnosis dysphasia/right facial droop Onset Date: Oct 19, 2020 Therapy Diagnosis Therapy Diagnosis: dysphagia Referral Referring Physician: Soraya Romero Reason for Referral: Evaluation/Treatment Medical History Pertinent Medical History: Alcoholism, CAD, COPD, CVA, HTN, CT, Neuropathy, PVD, Smoking HTN, COPD, CVA Current History dysphagia Reviewed History: Yes Social History Current Living Status: Children (daughter) Speech PLF/Current-Dysphagia Prior Level of Function Regular solids/thins Subjective Pt was alert and cooperative during ST evaluation. Pt actively participated in assessment tasks Cognitive Status Oriented to day, year, and location. Oral Motor Skills Dentition: Edentalous Current Food Consistancy: Mechanical Soft, Ground Meats, Thin Liquids Ability to Follow Directions: Excellent Oral Expression Ability: No Impairment Voice Voice Phonatory-Based Quality: Weak Voice Pitch: Normal Voice Loudness: Mildly Soft/Quiet Face Facial Symmetry: Symmetrical Oral-Facial Assessment Oral-Facial Dentition: Normal Labial Seal Description: Normal Smile: Normal Puff Cheeks: Normal Lingual Protrusion: Normal Lingual ROM: Normal Lingual Strength: Normal Pharynx Velopharyngeal Move.: Normal Volitional Dry Swallow: Yes Voluntary Cough: Yes slightly weak Can Clear Throat Volitionally: Yes slightly weak Productive Cough: Yes slightly weak Productive Throat Clear: Yes Prod Throat Clearing Comments: slightly weak Dysphagia Evaluation Consistencies Presented: Regular, Thin Liquid, Ground WNL WNL Dietary Recommendations: Ground Liquid Recommendations: Thin soft-bite sized regular solids recommended. Regular textures tolerated as long as easy to chew. Thin liquids tolerated. Swallowing Precautions: Decreased Rate of Oral Intake, Small Bites and Sips, Sitting Upright 90 Degrees Pt edentulous, but tolerated regular solids/thin liquids with no overt s/s aspiration. Pt encouraged to use small bites/sips and slow rate of intake. Dysphagia Evaluation Summary Pt tolerates regular solids/thin liquids with regular solids bite-sized and easy to chew. No overt s/s aspiration. ST services not recommended at this time. Barriers to Learning patient follow-through Speech-Plan Patient/Family Goals Patient/Family Goals: return to home Treatment Plan Speech Therapy Treatment Plan: Discontinue ST Skilled ST not recommended at this time. Tolerates regular bite-sized solids and thins with no overt s/s aspiration. Treatment Duration: Oct 22, 2020 Frequency: 1 time per week (evaluation only) Estimated Hrs Per Day: Other Rehab Potential: Fair Barriers to Learning: patient follow-through Pt/Family Agrees to Plan: Yes Safety Risks/Education Teaching Recipient: Patient Teaching Methods: Discussion Response to Teaching: Verbalize Understanding Education Topics Provided: safe swallowing precautions (e.g. sitting upright, small bites/sips, etc). Time Speech Therapy Time In: 08:55 Speech Therapy Time Out: 09:20 Total Billed Time: 15 Billed Treatment Time 1, [place] Syed Oct 22, 2020 11:04
--- NOTE | 2020-10-22 11:11 | ST Cognitive Linguistic Eval ---
Speech Evaluation-General Medical Diagnosis dysphasia/right facial droop Onset Date: Oct 19, 2020 Therapy Diagnosis Therapy Diagnosis: cognitive-communication Referral Referring Physician: Soraya Romero Reason for Referral: Evaluation/Treatment Medical History Pertinent Medical History: Alcoholism, CAD, COPD, CVA, HTN, OR, Neuropathy, PVD, Smoking CAD, COPD, CVA, HTN Current History dysphagia Reviewed History: Yes Social History Current Living Status: Children (daughter) Speech PLF-Current Status Subjective Pt sitting upright and was friendly with ST. Engaged in evaluation task and conversation. Language Eval: Auditory Comprehends Simple Yes/No Ques: Functional Indent/Objects [place]: Functional Ident/Pics in [place]: Functional Follows 1-Step Commands: Functional Follows Complex Directions: Functional Follows General Conversations: Functional Language Eval: Verbal Language Completes Spontaneous Greeting: Functional Produces Auto, Serial Info: Functional Imitates Simple Words/Phrases: Functional Word Finding: Functional Requests Basic Needs: Functional States Basic Personal Info: Functional Expresses Complex Ideas: Functional Language Evaluation: Reading Comprehends Single Nouns: Functional Follows Simple Written Direct: Functional Comprehends Multiple Sentences: Functional Objective Cognitive Domain Attention: WNL Memory: Mild Problem Solving: Mild Executive Functions: Mild Visuospatial Skills: WNL Composite Severity Rating: Mild Clock Drawing Severity Rating: WN Score: Objective Formal/Standardized Tests [facility] Mental Status ([facility]) Examination Results indicating a mild neurocognitive disorder. Pt demonstrated mild difficulty with problem solving and delayed recall tasks. Pt able to recall and problem solve with minimal verbal cues Oral Motor/Speech Production Oral motor and speech intelligibility judged to be WNL Impression Pt presents with mild neurocognitive impairment although successful with mild verbal cues. Speech-Plan Patient/Family Goals Patient/Family Goals: return home Treatment Plan Speech Therapy Treatment Plan: Discontinue ST Skilled ST not recommended at this time. Pt presents with mild cognitive- communication deficits, but successful with mild verbal cues. Treatment Duration: Oct 22, 2020 Frequency: 1 time per week Estimated Hrs Per Day: Other Rehab Potential: Good Barriers to Learning: n/a Pt/Family Agrees to Plan: Yes Safety Risks/Education Teaching Recipient: Patient Teaching Methods: Discussion Response to Teaching: Verbalize Understanding Education Topics Provided: skilled ST services and use of verbal/visual aids Discharge Recommendations Home & Family Time Speech Therapy Time In: 09:20 Speech Therapy Time Out: 09:35 Total Billed Time: 15 Billed Treatment Time 1, SPSNDCOMP Lory CURRYSHOBHAGer ANGEL Oct 22, 2020 11:11
--- NOTE | 2020-10-22 11:27 | Occupational Ther Daily Note ---
OT Current Status-Daily Note Subjective Pt. alert in recliner. Pt. agrees to therapy. Mental Status/Objective Patient Orientation: Person, Place, Time, Situation ADL-Treatment Pt declined to complete bathing. Therapy Code Descriptions/Definitions Functional Day Measure: 0=Not Assessed/NA 4=Minimal Assistance 1=Total Assistance 5=Supervision or Setup 2=Maximal Assistance 6=Modified Day 3=Moderate Assistance 7=Complete IndependenceSCALE: Activities may be completed with or without assistive devices. 6-Tbbpsbserf-ntxdjvi completes the activity by him/herself with no assistance from a helper. 5-Set-up or Clean-up Assistance-helper sets up or cleans up; patient completes activity. [place] assists only prior to or following the activity. 4-Supervision or Touching Assistance-helper provides verbal cues and/or touching/steadying and/or contact guard assistance as patient completes activity. Assistance may be provided throughout the activity or intermittently. 3-Partial/Moderate Assistance-helper does LESS THAN HALF the effort. [place] lifts, holds or supports trunk or limbs, but provides less than half the effort. 2-Substantial/Maximal Assistance-helper does MORE THAN HALF the effort. [place] lifts or holds trunk or limbs and provides more than half the effort. 8-Vditianxr-mlhkma does ALL the effort. Patient does none of the effort to complete the activity. Or, the assistance of 2 or more helpers is required for the patient to complete the activity. If activity was not attempted, code reason: 7-Patient Refused. 9-Not Applicable-not attempted and the patient did not perform the activity before the current illness, exacerbation or injury. 10-Not Attempted due to Environmental Limitations-(lack of equipment, weather restraints, etc.). 88-Not Attempted due to Medical Conditions or Safety Concerns. Other Treatment Pt. c/o of discomfort in shoulder with movement. Subluxation noted in R shldr, positioned R shldr optimally to perform ROM. Self-ROM for B UE using the L hand to hold the R to perform shoulder flex/neutral. Pt. performed APROM elbow flex/ext and forearm sup/pron exercises while HALE palpated muscle/bone mechanical components to ensure correct alignment. Pt. educated on shoulder shrugs to help decrease pain and decrease subluxation. Pt educated on placing pillow to support arm preventing pull on tendons/muscles while lying supine in bed or sitting up in chair. After therapy, pt sitting in recliner with call light/phone in reach. Pt wanted to talk to SW, reported to nrsg. Education Teaching Methods: Demonstration, Discussion Response to Teaching: Verbalize Understanding OT [employer] Shop Supervisor Goals Half-Way Goals Time Frame: Oct 30, 2020 Eating (QC): 6 Toileting Hygiene (QC): 3 Shower/Bathe Self (QC): 3 Upper Body Dressing (QC): 4 Lower Body Dressing (QC): 3 On/Off Footwear (QC): 3 1=Demonstrate adherence to instructed precautions during ADL tasks. 2=Patient will verbalize/demonstrate understanding of assistive devices/modifications for ADL. 3=Patient will improve strength/tolerance for activity to enable patient to perform ADL's. OT Education/Plan Problem List/Assessment Assessment: Decreased Activ Tolerance, Decreased UE Strength, Impaired Funct Balance, Impaired Self-Care Skills, Restricted Funct UE ROM Discharge Recommendations Plan/Recommendations: Continue POC Treatment Plan/Plan of Care Patient would benefit from OT for education, treatment and training to promote independence in ADL's, mobility, safety and/or upper extremity function for ADL's. Plan of Care: ADL Retraining, Functional Mobility, UE Funct Exercise/Act Treatment Duration: Oct 30, 2020 Frequency: 5 times per week Estimated Hrs Per Day: .25 hour per day Rehab Potential: Fair Time/GCodes Start Time: 10:31 Stop Time: 10:44 Total Time Billed (hr/min): 14 Billed Treatment Time 1 visit- NM 1 (14 min) CIPRIANO CASTRO Oct 22, 2020 11:27
[2020-10-22 11:46] VITALS: BP 129/80
[2020-10-22] MEDS: polyethylene glycoL POWDER 17 GM (MIRALAX) PACK PO SCH ×2 (12:03→21:45)
[2020-10-22] MEDS: LACTULOSE SYRUP 10GM/15ML (ENULOSE) 30ML UDC PO SCH ×2 (12:03→21:46)
[2020-10-22 15:21] VITALS: BP 116/73
[2020-10-22] MEDS: HYDROcodone/APAP 5 MG/325 MG (LORTAB) TAB PO PRN ×2 (15:23→21:44)
[2020-10-22] MEDS: RT-ALBUTEROL HFA 8.5 GM INHALER IH SCH ×3 (15:50→19:44)
[2020-10-22 19:00] VITALS: BP 125/80
[2020-10-22 23:31] VITALS: BP 125/65
[2020-10-22] MEDS: BACLOFEN 10 MG (LIORESAL) TAB PO PRN (23:50)
[2020-10-23 04:26] VITALS: BP 105/66
[2020-10-23 07:31] LABS: BASOPHILS # (AUTO) 0.1 10^3/uL (0.0-0.1); BASOPHILS % (AUTO) 1 % (0-10); EOSINOPHILS # (AUTO) 0.5 10^3/uL (0.0-0.3); EOSINOPHILS % (AUTO) 5 % (0-10); HEMATOCRIT 44 % (40-54); HEMOGLOBIN 14.2 g/dL (13.3-17.7); LYMPHOCYTES # (AUTO) 2.4 10^3/uL (1.0-4.0); LYMPHOCYTES % (AUTO) 24 % (12-44); MEAN CORPUSCULAR HEMOGLOBIN 29 pg (25-34); MEAN CORPUSCULAR HGB CONC 32 g/dL (32-36); MEAN CORPUSCULAR VOLUME 91 fL (80-99); MEAN PLATELET VOLUME 10.7 fL (9.0-12.2); MONOCYTES # (AUTO) 0.8 10^3/uL (0.0-1.0); MONOCYTES % (AUTO) 8 % (0-12); NEUTROPHILS # (AUTO) 6.2 10^3/uL (1.8-7.8); NEUTROPHILS % (AUTO) 62 % (42-75); PLATELET COUNT 205 10^3/uL (130-400); WHITE BLOOD COUNT 10.1 10^3/uL (4.3-11.0)
[2020-10-23 07:52] LABS: ALBUMIN 3.8 GM/DL (3.2-4.5); BILIRUBIN,TOTAL 0.9 MG/DL (0.1-1.0); CREATININE SERUM 0.91 MG/DL (0.60-1.30); POTASSIUM 4.2 MMOL/L (3.6-5.0); TOTAL PROTEIN 6.5 GM/DL (6.4-8.2)
[2020-10-23 08:00] VITALS: BP 174/80
[2020-10-23] MEDS: VITAMIN D3 25 MCG (1,000 UNITS) TABLET PO SCH (09:19)
[2020-10-23] MEDS: ENOXAPARIN 40 MG/0.4 ML (LOVENOX) SYR SC SCH (09:19)
[2020-10-23] MEDS: CLOPIDOGREL 75 MG (PLAVIX) TABLET PO SCH (09:19)
[2020-10-23] MEDS: ASPIRIN E.C. 325 MG (ECOTRIN) TABLET PO SCH (09:19)
[2020-10-23] MEDS: polyethylene glycoL POWDER 17 GM (MIRALAX) PACK PO SCH (09:19)
[2020-10-23] MEDS: GABAPENTIN 300 MG (NEURONTIN) CAP PO SCH ×2 (09:19→12:05)
[2020-10-23] MEDS: amLODIPine 5 MG (NORVASC) TAB PO SCH (09:19)
[2020-10-23] MEDS: LACTULOSE SYRUP 10GM/15ML (ENULOSE) 30ML UDC PO SCH (09:19)
[2020-10-23] MEDS: DOCUSATE SODIUM 100 MG (COLACE) CAP PO SCH (09:19)
[2020-10-23] MEDS: lisINopril 40 MG (PRINIVIL) TABLET PO SCH (09:19)
[2020-10-23] MEDS: FLUTICASONE NASAL SPRAY (FLONASE) 16 GM BTL NS SCH (09:21)
[2020-10-23] MEDS: buPROPion SR 150 MG (WELLBUTRIN SR) TAB PO SCH (09:23)
[2020-10-23] MEDS: HYDROcodone/APAP 5 MG/325 MG (LORTAB) TAB PO PRN ×2 (09:28→15:59)
--- NOTE | 2020-10-23 10:09 | Progress Note ---
CAROLINE JONES 10/23/20 1009: Subjective Date Seen by a Provider: Oct 23, 2020 Time Seen by a Provider: 11:10 Subjective/Events-last exam Today Mr. Matute reports that he is feeling well and has no complaints. Reports that the recurrent shoulder pain from yesterday has improved with the hydrodone /APAP 5mg. Endorses continued constipation without pain. Pt has not been using IS but will later today. Pt is still agreeable to In Rehab at [place]. Review of Systems General: No Chills, No Night Sweats, No Fatigue, No Malaise, No Appetite, No Other HEENT: Head Aches Pulmonary: No Dyspnea; Cough Cardiovascular: No: Chest Pain, Palpitations Gastrointestinal: Constipation; No: Nausea, Vomiting, Abdominal Pain, Diarrhea Genitourinary: No Dysuria, No Frequency, No Incontinence Neurological: Weakness; No: Change in speech Objective Exam Last Set of Vital Signs Vital Signs Date Time Temp Pulse Resp B/P (MAP) Pulse Ox O2 Delivery O2 Flow Rate FiO2 10/23/20 07:00 52 10/23/20 04:26 36.4 18 105/66 (79) 96 Room Air Capillary Refill : Less Than 3 Seconds I&O Intake and Output 10/23/20 00:00 Intake Total 1828 ml Output Total 900 ml Balance 928 ml Intake Oral 1828 ml Output Urine Total 900 ml # Voids 3 General: Alert, Oriented X3, Cooperative, No Acute Distress Lungs: Clear to Auscultation, Normal Air Movement Heart: Regular Rate, Normal S1, Normal S2 Abdomen: Normal Bowel Sounds, Soft, No Tenderness Extremities: Normal Pulses Neuro: Normal Speech Results Lab Laboratory Tests 10/23/20 07:09: White Blood Count 10.1, Red Blood Count 4.83, Hemoglobin 14.2, Hematocrit 44, Mean Corpuscular Volume 91, Mean Corpuscular Hemoglobin 29, Mean Corpuscular Hemoglobin Concent 32, Red Cell Distribution Width 14.9H, Platelet Count 205, Mean Platelet Volume 10.7, Immature Granulocyte % (Auto) 0, Neutrophils (%) (Auto) 62, Lymphocytes (%) (Auto) 24, Monocytes (%) (Auto) 8, Eosinophils (%) (Auto) 5, Basophils (%) (Auto) 1, Neutrophils # (Auto) 6.2, Lymphocytes # (Auto) 2.4, Monocytes # (Auto) 0.8, Eosinophils # (Auto) 0.5H, Basophils # (Auto) 0.1, Immature Granulocyte # (Auto) 0.0, Sodium Level 140, Potassium Level 4.2, Chloride Level 107, Carbon Dioxide Level 22, Anion Gap 11, Blood Urea Nitrogen 2 1H, Creatinine 0.91, Estimat Glomerular Filtration Rate 84, BUN/Creatinine Ratio 23, Glucose Level 96, Calcium Level 10.0, Corrected Calcium 10.2H, Total Bilirubin 0.9, Aspartate Amino Transf (AST/SGOT) 15, Alanine Aminotransferase (ALT/SGPT) 18, Alkaline Phosphatase 62, Total Protein 6.5, Albumin 3.8 Microbiology 10/18/20 Urine Culture - Final, Complete NO GROWTH Assessment/Plan Assessment/Plan Assess & Plan/Chief Complaint Overview of hospital stay: Jason Matute is a 65yo male with a past medical history of dysphasia, R carotid occlusion, R sided weakness 2/2 repeat CVA, polysubstance abuse, AL, tobacco use, Hep C who was admitted 10/19 for management of CVA and UTI. On 10/18 Mr. Matute presented to [facility] ED with his daughter for right sided weakness, dysarthria, and altered mental status noticed earlier that day concerning for recurrent stroke. This was the third stroke patient has had since June 2020. Admission findings were significant for head CTA demonstrating new occlusion of the right common and internal carotid arteries. The left carotid system was occluded and unchanged since previous CTA. Stroke was consulted for management and decision was made to not administer thrombolytics. Stroke was managed acutely with aspirin. Shortly after admission, altered mental status had resolved. By 10/19 dysarthria had improved. By 10/21 patients neurological symptoms were stable. Right arm paralysis and right leg weakness persisted. On admission, patient was also noted to have elevated troponins (0.046) and hypertension (up to 190's systolic). Cardiology was consulted and they determined no intervention was indicated. Hypertension urgency was acutely managed with Norvasc 5mg BID. Patient was cleared for discharged 10/21 but was declined from several facilities for inpatient rehab. Patient went home with daughter 10/24. All questions and concerns were addressed. Active problems and plans include the following: CVA Right sided weaknes -Per stroke team: no intervention indicated -Continue Lovenox, Lipitor, ASA, Cardiac Diet -Continue to work with PT/OT -SW working on placement for patient Constipation -Add miralax, lactulose to current bowel regimen Shoulder pain -10/22: Recurrence of right shoulder pain and back pain Plan: -Continue hydrocodone/apap 5mg qday Hypertension -10/20: Elevated pressures noted overnight -Continue Amlodipine 5mg BID po qday Cough -Encourage incentive spirometry -Continue3 albuterol inhaler Placement -SW currently working on SNF placement following discharge. Substance use: -UDS positive for THC, encouraged cessation of marijuana PRUDENCE BECK DO 10/24/20 0541: Subjective Subjective/Events-last exam Patient doing pretty well Decided to go live with his daughter again Later in the day social work needed skilled orders to discharge to [facility] and rehab Objective Exam General: Alert, Oriented X3, Cooperative, No Acute Distress Assessment/Plan Assessment/Plan Assess & Plan/Chief Complaint DC to [facility] Supervisory-Addendum Brief Verification & Attestation Participated in pt care: history, MDM, physical Personally performed: exam, history, MDM, supervision of care Care discussed with: Medical Student Procedures: n/a Results interpretation: Verified all documentation Verification and Attestation of Medical Student E/M Service A medical student performed and documented this service in my presence. I reviewed and verified all information documented by the medical student and made modifications to such information, when appropriate. I personally performed the physical exam and medical decision making. Prudence Beck, Oct 24, 2020,05:40 CAROLINE JONES Oct 23, 2020 10:09 PRUDENCE BECK DO Oct 24, 2020 05:41
[2020-10-23] MEDS ORDERED: BISACODYL 10 MG SUPP (DULCOLAX) PR ONE (11:30)
[2020-10-23 12:00] VITALS: BP 125/66
--- NOTE | 2020-10-23 12:05 | Physical Therapy Daily Note ---
PT Daily Note-Current Subjective Patient agrees to PT. Mental Status Patient Orientation: Normal For Age Transfers SCALE: Activities may be completed with or without assistive devices. 0-Phxfzhyglh-hdssffe completes the activity by him/herself with no assistance from a helper. 5-Set-up or Clean-up Assistance-helper sets up or cleans up; patient completes activity. [place] assists only prior to or following the activity. 4-Supervision or Touching Assistance-helper provides verbal cues and/or touching/steadying and/or contact guard assistance as patient completes activity. Assistance may be provided throughout the activity or intermittently. 3-Partial/Moderate Assistance-helper does LESS THAN HALF the effort. [place] lifts, holds or supports trunk or limbs, but provides less than half the effort. 2-Substantial/Maximal Assistance-helper does MORE THAN HALF the effort. [place] lifts or holds trunk or limbs and provides more than half the effort. 8-Clbbeniwp-zbkhtf does ALL the effort. Patient does none of the effort to complete the activity. Or, the assistance of 2 or more helpers is required for the patient to complete the activity. If activity was not attempted, code reason: 7-Patient Refused. 9-Not Applicable-not attempted and the patient did not perform the activity befo re the current illness, exacerbation or injury. 10-Not Attempted due to Environmental Limitations-(lack of equipment, weather re straints, etc.). 88-Not Attempted due to Medical Conditions or Safety Concerns. Lying to Sitting/Side of Bed(Q: 6 Sit to Stand (QC): 4 (SBA) Chair/Nhk-cr-Javgi Xfer(QC): 4 (SBA) Gait Training Does the Patient Walk?: Yes Distance: 350' Walk 10 feet (QC): 4 (SBA) Walk 50 ft with 2 Turns(QC): 4 (SBA) Walk 150 ft (QC): 4 (SBA) Gait Assistive Device: Walker Platform (right) mild right neglect/right LE mild lag with self correct Assessment Per SW, patient will dismiss to home with family tomorrow. Patient up in recliner with needs met. PT [employer] Goals [employer] Goals PT [employer] Goals Time Frame: Oct 31, 2020 Roll Left & Right (QC): 4 Sit to Lying (QC): 4 Lying-Sitting on Side/Bed(QC): 4 Sit to Stand (QC): 4 Chair/Hvj-fb-Dbavy Xfer(QC): 4 Toilet Transfer (QC): 4 Does the Patient Walk: Yes Walk 10 feet (QC): 4 Walk 50ft with 2 Turns (QC): 4 Walk 150 ft (QC): 4 PT Plan Treatment/Plan Treatment Plan: Discontinue PT Treatment Plan: Bed Mobility, Education, Functional Activity [place], Functional Strength, Gait, Safety, Therapeutic Exercise, Transfers Treatment Duration: Oct 31, 2020 Frequency: 6 times per week Estimated Hrs Per Day: .25 hour per day Patient and/or Family Agrees t: Yes Time/GCodes Time In: 1127 Time Out: 1140 Total Billed Treatment Time: 13 Total Billed Treatment 1 visit GT 13 min RADHA SALINAS PT Oct 23, 2020 12:05
[2020-10-23] MEDS: BACLOFEN 10 MG (LIORESAL) TAB PO PRN (12:06)
--- NOTE | 2020-10-23 12:41 | Occupational Ther Daily Note ---
OT Current Status-Daily Note Subjective Pt. alert in bed. Pt. agrees to therapy. Pt. states doing shoulder shrugs, pain in shoulder/arm persisted last night Mental Status/Objective Patient Orientation: Person, Place, Time, Situation Attachments: IV ADL-Treatment Therapy Code Descriptions/Definitions Functional [place] Measure: 0=Not Assessed/NA 4=Minimal Assistance 1=Total Assistance 5=Supervision or Setup 2=Maximal Assistance 6=Modified [place] 3=Moderate Assistance 7=Complete IndependenceSCALE: Activities may be completed with or without assistive devices. 1-Wtulubzaya-wzsojls completes the activity by him/herself with no assistance from a helper. 5-Set-up or Clean-up Assistance-helper sets up or cleans up; patient completes activity. [place] assists only prior to or following the activity. 4-Supervision or Touching Assistance-helper provides verbal cues and/or touching/steadying and/or contact guard assistance as patient completes activity. Assistance may be provided throughout the activity or intermittently. 3-Partial/Moderate Assistance-helper does LESS THAN HALF the effort. [place] lifts, holds or supports trunk or limbs, but provides less than half the effort. 2-Substantial/Maximal Assistance-helper does MORE THAN HALF the effort. [place] lifts or holds trunk or limbs and provides more than half the effort. 7-Biijkvaqf-lfwzqo does ALL the effort. Patient does none of the effort to complete the activity. Or, the assistance of 2 or more helpers is required for the patient to complete the activity. If activity was not attempted, code reason: 7-Patient Refused. 9-Not Applicable-not attempted and the patient did not perform the activity before the current illness, exacerbation or injury. 10-Not Attempted due to Environmental Limitations-(lack of equipment, weather restraints, etc.). 88-Not Attempted due to Medical Conditions or Safety Concerns. Other Treatment Pt. wants to walk. Pt. SBA supine <--> EOB. Pt. CGA EOB to standing with Platform FWW. Pt. using Platform FWW ambulating in hallway CGA for 200ft, verbal cues to scan to R side avoiding obstacles. Wt bearing through R elbow when using platform FWW. Pt able to move R UE to place on platform and then band saw marker with R hand. Pt. returned to bed, call light/phone in reach. All needs met in room. OT Nursing Home Goals Nursing Home Goals Time Frame: Oct 30, 2020 Eating (QC): 6 Toileting Hygiene (QC): 3 Shower/Bathe Self (QC): 3 Upper Body Dressing (QC): 4 Lower Body Dressing (QC): 3 On/Off Footwear (QC): 3 1=Demonstrate adherence to instructed precautions during ADL tasks. 2=Patient will verbalize/demonstrate understanding of assistive devices/modifications for ADL. 3=Patient will improve strength/tolerance for activity to enable patient to perform ADL's. OT Education/Plan Problem List/Assessment Assessment: Decreased Activ Tolerance, Decreased Safety Aware, Decreased UE Strength, Impaired Coordination, Impaired Self-Care Skills, Restricted Funct UE ROM Discharge Recommendations Plan/Recommendations: Continue POC Treatment Plan/Plan of Care Patient would benefit from OT for education, treatment and training to promote independence in ADL's, mobility, safety and/or upper extremity function for ADL's. Plan of Care: ADL Retraining, Functional Mobility, UE Funct Exercise/Act Treatment Duration: Oct 30, 2020 Frequency: 5 times per week Estimated Hrs Per Day: .25 hour per day Rehab Potential: Good Time/GCodes Start Time: 10:59 Stop Time: 11:16 Total Time Billed (hr/min): 17 Billed Treatment Time 1 visit- 1 FA (17 min) CIPRIANO CASTRO Oct 23, 2020 12:41
[2020-10-23] MEDS: RT-ALBUTEROL HFA 8.5 GM INHALER IH SCH (14:24)
[2020-10-23 15:43] VITALS: BP 139/88
[2020-10-23] MEDS ORDERED: AMLO-250 PO (16:14)
--- NOTE | 2020-10-23 16:15 | Discharge Inst-Skilled Nursing ---
Discharge Inst-Skilled NF Reconcile Patient Problems Problems Reviewed?: Yes Patient Instructions Patient Problems: CVA Goal: [place] Consult/Follow Up/Orders Follow Up Appt.: PCP [place] rounds Skilled NF Admit to: [facility] (SNF) I certify that SNF services are required to be given on an inpatient basis because of the above named patient's need for [facility] care on a continuing basis for the conditions(s) for which he/she was receiving inpatient hospital services prior to his/her transfer to the SNF. Long-Term Facility Order: Nursing Services, Cab Worker-Evaluate & Treat, Physical Therapy-Evaluate & Treat Oxygen Delivery Method: Room Air Discharge Diet: Cardiac Diet Resuscitation Status: Full Code New & Resume Previous Orders New Medications: Amlodipine Besylate (Amlodipine Besylate) 5 Mg Tablet 5 MG PO BID for 30 Days, TAB Continued Medications: Albuterol Sulfate (Proair Hfa) 1 Puff Puff 2 PUFF IH Q4H PRN for SHORTNESS OF BREATH, EA Aspirin (Aspirin EC) 325 Mg Tablet.dr 325 MG PO DAILY, TAB Atorvastatin Calcium (Atorvastatin Calcium) 80 Mg Tablet 80 MG PO HS, TAB Baclofen (Baclofen) 10 Mg Tablet 10 MG PO TID PRN for MUSCLE SPASMS, TAB Bupropion HCl (Bupropion HCl Sr) 150 Mg Tablet.er 150 MG PO BID, TAB Cholecalciferol (Vitamin D3) (Vitamin D3) 50 Mcg Tablet 50 MCG PO DAILY, TAB Clopidogrel Bisulfate (Plavix) 75 Mg Tablet 75 MG PO DAILY, TAB Fluticasone Propionate (Fluticasone Propionate) 16 Gm [place].susp 2 SPRAYS NS DAILY, EA Gabapentin (Neurontin) 300 Mg Capsule 900 MG PO TID, CAP TAKES 3 (300MG) CAPSULES Lisinopril (Lisinopril) 40 Mg Tablet 20 MG PO DAILY, TAB TAKES (40MG) TABLET Debbie Pereira Oct 23, 2020 16:15 DEBBIE PEREIRA DO Oct 23, 2020 16:15
--- NOTE | 2020-10-23 16:16 | Discharge Summary ---
Diagnosis/Chief Complaint Date of Admission Oct 19, 2020 at 00:44 Date of Discharge Discharge Date: Oct 23, 2020 Discharge Diagnosis Acute on chronic CVA Smoker Illicit drug user COPD CAD PVD Reason Hospital Visit CC: Dysarthria with weakness HPI: This is a 65[facility] clinic [facility] known to me from prior hospital stays including Arcenio kelly who has a PMH of multiple strokes and inoperable CAD and peripheral vascular disease who presented to the ER with right-sided weakness with dysarthria and altered mental status. Currently he is doing much better. UTI is being treated with Rocephin and we will discontinue the catheter and IV fluids since he is eating and drinking well. PT and OT will see him in inpatient rehab consulted. To note stroke neurologist was consulted on this patient as they have multiple times during every ER visit and there is nothing that higher level of care can do for the patient and no intervention indicated Discharge Summary Discharge Physical Examination Allergies: Coded Allergies: No Known Drug Allergies (Unverified , 03/13/18) Vitals & I&Os Vital Signs Date Time Temp Pulse Resp B/P (MAP) Pulse Ox O2 Delivery O2 Flow Rate FiO2 10/23/20 17:36 10/23/20 15:43 35.5 65 20 96 Room Air General Appearance: Alert, Oriented X3, Cooperative Respiratory: Clear to Auscultation Cardiovascular: Regular Rate Hospital Course Was the Problem List Reviewed?: Yes Assess & Plan/Chief Complaint by Blue Gupta Overview of hospital stay: Jason Matute is a 65yo male with a past medical history of dysphasia, R carotid occlusion, R sided weakness 2/2 repeat CVA, polysubstance abuse, MO, tobacco use, Hep C who was admitted 10/19 for management of CVA and UTI. On 10/18 Mr. Matute presented to [facility] with his daughter for right sided weakness, dysarthria, and altered mental status noticed earlier that day concerning for recurrent stroke. This was the third stroke patient has had since June 2020. Admission findings were significant for head CTA demonstrating new occlusion of the right common and internal carotid arteries. The left carotid system was occluded and unchanged since previous CTA. JORDIN Stroke was consulted for management and decision was made to not administer thrombolytics. Stroke was managed acutely with aspirin. Shortly after admission, altered mental status had resolved. By 10/19 dysarthria had improved. By 10/21 patients neurological symptoms were stable. Right arm paralysis and right leg weakness persisted. On admission, patient was also noted to have elevated troponins (0.046) and hypertension (up to 190's systolic). Cardiology was consulted and they determined no intervention was indicated. Hypertension urgency was acutely managed with Norvasc 5mg BID. Patient was cleared for discharged 10/21 but was declined from several facilities for inpatient rehab. Patient went home with daughter 10/24. All questions and concerns were addressed. Active problems and plans include the following: CVA Right sided weaknes -Per [facility] stroke team: no intervention indicated -Continue Lovenox, Lipitor, ASA, Cardiac Diet -Continue to work with PT/OT -SW working on placement for patient Constipation -Add miralax, lactulose to current bowel regimen Shoulder pain -10/22: Recurrence of right shoulder pain and back pain Plan: -Continue hydrocodone/apap 5mg qday Hypertension -10/20: Elevated pressures noted overnight -Continue Amlodipine 5mg BID po qday Cough -Encourage incentive spirometry -Continue3 albuterol inhaler Placement -SW currently working on SNF placement following discharge. Substance use: -UDS positive for THC, encouraged cessation of marijuana Labs (last 24 hrs) Laboratory Tests 10/18/20 21:47: White Blood Count 15.9H, Red Blood Count 5.23, Hemoglobin 15.2, Hematocrit 48, Mean Corpuscular Volume 91, Mean Corpuscular Hemoglobin 29, Mean Corpuscular Hemoglobin Concent 32, Red Cell Distribution Width 15.1H, Platelet Count 227, Mean Platelet Volume 10.2, Immature Granulocyte % (Auto) 0, Neutrophils (%) (Auto) 83H, Lymphocytes (%) (Auto) 9L, Monocytes (%) (Auto) 6, Eosinophils (%) (Auto) 2, Basophils (%) (Auto) 0, Neutrophils # (Auto) 13.2H, Lymphocytes # (Auto) 1.4, Monocytes # (Auto) 0.9, Eosinophils # (Auto) 0.3, Basophils # (Auto) 0.1, Immature Granulocyte # (Auto) 0.1, Neutrophils % (Manual) 80, Lymphocytes % (Manual) 11, Monocytes % (Manual) 7, Eosinophils % (Manual) 2, Blood Morphology Comment NORMAL, Prothrombin Time 13.6, INR Comment 1.0, Activated Partial Thromboplast Time 24, D-Dimer 0.54H, Sodium Level 141, Potassium Level 4.3, Chloride Level 105, Carbon Dioxide Level 24, Anion Gap 12, Blood Urea Nitrogen 14, Creatinine 1.31H, Estimat Glomerular Filtration Rate 55, BUN/Creatinine Ratio 11, Glucose Level 131H, Calcium Level 10.0, Corrected Calcium 9.9, Total Bilirubin 1.0, Aspartate Amino Transf (AST/SGOT) 15, Alanine Aminotransferase (ALT/SGPT) 15, Alkaline Phosphatase 72, Troponin I 0.038H, Total Protein 7.3, Albumin 4.1, Serum Alcohol < 10 10/18/20 21:51: Glucometer 132H 10/18/20 22:05: Urine Color YELLOW, Urine Clarity SL CLOUDY, Urine pH 6.5, Urine Specific [place] 1.015L, Urine Protein 2+H, Urine Glucose (UA) TRACEH, Urine Ketones TRACEH, Urine Nitrite NEGATIVE, Urine Bilirubin 1+H, Urine Urobilinogen 4.0, U rine Leukocyte Esterase NEGATIVE, Urine RBC (Auto) TRACE-I, Urine RBC 2-5H, Urine WBC 5-10H, Urine Squamous Epithelial Cells 2-5, Urine Renal Epithelial Cells NONE, Urine Crystals NONE, Urine Bacteria FEWH, Urine Casts PRESENT, Urine Hyaline Casts 25-50H, Urine Mucus NEGATIVE, Urine Culture Indicated YES, Urine Opiates Screen NEGATIVE, Urine Oxycodone Screen NEGATIVE, Urine Methadone Screen NEGATIVE, Urine Propoxyphene Screen NEGATIVE, Urine Barbiturates Screen NEGATIVE, Ur Tricyclic Antidepressants Screen NEGATIVE, Urine Phencyclidine Screen NEGATIVE, Urine Amphetamines Screen NEGATIVE, Urine Methamphetamines Screen NEGATIVE, Urine Benzodiazepines Screen NEGATIVE, Urine Cocaine Screen NEGATIVE, Urine Cannabinoids Screen POSITIVEH 10/19/20 00:44: Lab Scanned Report Referred Lab Report 10/19/20 04:35: White Blood Count 10.9, Red Blood Count 4.79, Hemoglobin 14.0, Hematocrit 43, Mean Corpuscular Volume 90, Mean Corpuscular Hemoglobin 29, Mean Corpuscular Hemoglobin Concent 33, Red Cell Distribution Width 15.0H, Platelet Count 209, Mean Platelet Volume 10.6, Immature Granulocyte % (Auto) 0, Neutrophils (%) (Auto) 74, Lymphocytes (%) (Auto) 17, Monocytes (%) (Auto) 7, Eosinophils (%) (Auto) 1, Basophils (%) (Auto) 1, Neutrophils # (Auto) 8.1H, Lymphocytes # (Auto) 1.9, Monocytes # (Auto) 0.8, Eosinophils # (Auto) 0.1, Basophils # (Auto) 0.1, Immature Granulocyte # (Auto) 0.0, Sodium Level 140, Potassium Level 3.7, Chloride Level 107, Carbon Dioxide Level 25, Anion Gap 8, Blood Urea Nitrogen 16, Creatinine 1.06, Estimat Glomerular Filtration Rate 71, BUN/Creatinine Ratio 15, Glucose Level 140H, Calcium Level 9.7, Troponin I 0.046H, Triglycerides Level 54, Cholesterol Level 94, LDL Cholesterol Direct 40, VLDL Cholesterol 11, HDL Cholesterol 39L 10/20/20 06:15: White Blood Count 9.4, Red Blood Count 4.92, Hemoglobin 14.2, Hematocrit 44, Mean Corpuscular Volume 89, Mean Corpuscular Hemoglobin 29, Mean Corpuscular Hemoglobin Concent 33, Red Cell Distribution Width 14.6H, Platelet Count 207, Mean Platelet Volume 11.3, Immature Granulocyte % (Auto) 0, Neutrophils (%) (Auto) 61, Lymphocytes (%) (Auto) 23, Monocytes (%) (Auto) 10, Eosinophils (%) (Auto) 6, Basophils (%) (Auto) 1, Neutrophils # (Auto) 5.7, Lymphocytes # (Auto) 2.2, Monocytes # (Auto) 0.9, Eosinophils # (Auto) 0.6H, Basophils # (Auto) 0.1, Immature Granulocyte # (Auto) 0.0, Sodium Level 142, Potassium Level 3.7, Chloride Level 108H, Carbon Dioxide Level 23, Anion Gap 11, Blood Urea Nitrogen 16, Creatinine 0.87, Estimat Glomerular Filtration Rate 89, BUN/Creatinine Ratio 18, Glucose Level 95, Calcium Level 9.6, Corrected Calcium 9.8, Total Bilirubin 0.9, Aspartate Amino Transf (AST/SGOT) 19, Alanine Aminotransferase (ALT/SGPT) 18, Alkaline Phosphatase 73, Total Protein 6.6, Albumin 3.7 10/21/20 06:03: White Blood Count 11.9H, Red Blood Count 5.01, Hemoglobin 14.6, Hematocrit 45, Mean Corpuscular Volume 90, Mean Corpuscular Hemoglobin 29, Mean Corpuscular Hemoglobin Concent 32, Red Cell Distribution Width 14.9H, Platelet Count 204, Mean Platelet Volume 10.6, Immature Granulocyte % (Auto) 0, Neutrophils (%) (Auto) 65, Lymphocytes (%) (Auto) 21, Monocytes (%) (Auto) 9, Eosinophils (%) (Auto) 4, Basophils (%) (Auto) 1, Neutrophils # (Auto) 7.8, Lymphocytes # (Auto) 2.5, Monocytes # (Auto) 1.1H, Eosinophils # (Auto) 0.5H, Basophils # (Auto) 0.1, Immature Granulocyte # (Auto) 0.0, Sodium Level 139, Potassium Level 4.0, Chloride Level 106, Carbon Dioxide Level 24, Anion Gap 9, Blood Urea Nitrogen 20H, Creatinine 0.89, Estimat Glomerular Filtration Rate 86, BUN/Creatinine Ratio 22, Glucose Level 104, Calcium Level 9.9, Corrected Calcium 10.1, Total Bilirubin 0.9, Aspartate Amino Transf (AST/SGOT) 16, Alanine Aminotransferase (ALT/SGPT) 17, Alkaline Phosphatase 72, Total Protein 6.7, Albumin 3.8 10/23/20 07:09: White Blood Count 10.1, Red Blood Count 4.83, Hemoglobin 14.2, Hematocrit 44, Mean Corpuscular Volume 91, Mean Corpuscular Hemoglobin 29, Mean Corpuscular Hemoglobin Concent 32, Red Cell Distribution Width 14.9H, Platelet Count 205, Mean Platelet Volume 10.7, Immature Granulocyte % (Auto) 0, Neutrophils (%) (Auto) 62, Lymphocytes (%) (Auto) 24, Monocytes (%) (Auto) 8, Eosinophils (%) (Auto) 5, Basophils (%) (Auto) 1, Neutrophils # (Auto) 6.2, Lymphocytes # (Auto) 2.4, Monocytes # (Auto) 0.8, Eosinophils # (Auto) 0.5H, Basophils # (Auto) 0.1, Immature Granulocyte # (Auto) 0.0, Sodium Level 140, Potassium Level 4.2, Chloride Level 107, Carbon Dioxide Level 22, Anion Gap 11, Blood Urea Nitrogen 21H, Creatinine 0.91, Estimat Glomerular Filtration Rate 84, BUN/Creatinine Ratio 23, Glucose Level 96, Calcium Level 10.0, Corrected Calcium 10.2H, Total Bilirubin 0.9, Aspartate Amino Transf (AST/SGOT) 15, Alanine Aminotransferase (ALT/SGPT) 18, Alkaline Phosphatase 62, Total Protein 6.5, Albumin 3.8 Microbiology 10/18/20 Urine Culture - Final, Complete NO GROWTH Pending Labs Microbiology Date/Time Source Procedure Growth Status 10/18/20 22:05 Urine Clean Catch Urine Culture - Final NO GROWTH Complete Laboratory Tests 10/18/20 21:47: White Blood Count 15.9, Red Blood Count 5.23, Hemoglobin 15.2, Hematocrit 48, Mean Corpuscular Volume 91, Mean Corpuscular Hemoglobin 29, Mean Corpuscular Hemoglobin Concent 32, Red Cell Distribution Width 15.1, Platelet Count 227, Mean Platelet Volume 10.2, Immature Granulocyte % (Auto) 0, Neutrophils (%) (Auto) 83, Lymphocytes (%) (Auto) 9, Monocytes (%) (Auto) 6, Eosinophils (%) (Auto) 2, Basophils (%) (Auto) 0, Neutrophils # (Auto) 13.2, Lymphocytes # (Auto) 1.4, Monocytes # (Auto) 0.9, Eosinophils # (Auto) 0.3, Basophils # (Auto) 0.1, Immature Granulocyte # (Auto) 0.1, Neutrophils % (Manual) 80, Lymphocytes % (Manual) 11, Monocytes % (Manual) 7, Eosinophils % (Manual) 2, Blood Morphology Comment NORMAL, Prothrombin Time 13.6, INR Comment 1.0, Activated Partial Thromboplast Time 24, D-Dimer 0.54, Sodium Level 141, Potassium Level 4.3, Chloride Level 105, Carbon Dioxide Level 24, Anion Gap 12, Blood Urea Nitrogen 14, Creatinine 1.31, Estimat Glomerular Filtration Rate 55, BUN/Creatinine Ratio 11, Glucose Level 131, Calcium Level 10.0, Corrected Calcium 9.9, Total Bilirubin 1.0, Aspartate Amino Transf (AST/SGOT) 15, Alanine Aminotransferase (ALT/SGPT) 15, Alkaline Phosphatase 72, Troponin I 0.038, Total Protein 7.3, Alb umin 4.1, Serum Alcohol < 10 10/18/20 21:51: Glucometer 132 10/18/20 22:05: Urine Color YELLOW, Urine Clarity SL CLOUDY, Urine pH 6.5, Urine Specific [place] 1.015, Urine Protein 2+, Urine Glucose (UA) TRACE, Urine Ketones TRACE, Urine Nitrite NEGATIVE, Urine Bilirubin 1+, Urine Urobilinogen 4.0, Urine Leukocyte Esterase NEGATIVE, Urine RBC (Auto) TRACE-I, Urine RBC 2-5, Urine WBC 5-10, Urine Squamous Epithelial Cells 2-5, Urine Renal Epithelial Cells NONE, Urine Crystals NONE, Urine Bacteria FEW, Urine Casts PRESENT, Urine Hyaline Casts 25-50, Urine Mucus NEGATIVE, Urine Culture Indicated YES, Urine Opiates Screen NEGATIVE, Urine Oxycodone Screen NEGATIVE, Urine Methadone Screen NEGATIVE, Urine Propoxyphene Screen NEGATIVE, Urine Barbiturates Screen NEGATIVE, Ur Tricyclic Antidepressants Screen NEGATIVE, Urine Phencyclidine Screen NEGATIVE, Urine Amphetamines Screen NEGATIVE, Urine Methamphetamines Screen NEGATIVE, Urine Benzodiazepines Screen NEGATIVE, Urine Cocaine Screen NEGATIVE, Urine Cannabinoids Screen POSITIVE 10/19/20 00:44: Lab Scanned Report Referred Lab Report 10/19/20 04:35: White Blood Count 10.9, Red Blood Count 4.79, Hemoglobin 14.0, Hematocrit 43, Mean Corpuscular Volume 90, Mean Corpuscular Hemoglobin 29, Mean Corpuscular Hemoglobin Concent 33, Red Cell Distribution Width 15.0, Platelet Count 209, Mean Platelet Volume 10.6, Immature Granulocyte % (Auto) 0, Neutrophils (%) (Auto) 74, Lymphocytes (%) (Auto) 17, Monocytes (%) (Auto) 7, Eosinophils (%) (Auto) 1, Basophils (%) (Auto) 1, Neutrophils # (Auto) 8.1, Lymphocytes # (Auto) 1.9, Monocytes # (Auto) 0.8, Eosinophils # (Auto) 0.1, Basophils # (Auto) 0.1, Immature Granulocyte # (Auto) 0.0, Sodium Level 140, Potassium Level 3.7, Chloride Level 107, Carbon Dioxide Level 25, Anion Gap 8, Blood Urea Nitrogen 16, Creatinine 1.06, Estimat Glomerular Filtration Rate 71, BUN/Creatinine Ratio 15, Glucose Level 140, Calcium Level 9.7, Troponin I 0.046, Triglycerides Level 54, Cholesterol Level 94, LDL Cholesterol Direct 40, VLDL Cholesterol 11, HDL Cholesterol 39 10/20/20 06:15: White Blood Count 9.4, Red Blood Count 4.92, Hemoglobin 14.2, Hematocrit 44, Mean Corpuscular Volume 89, Mean Corpuscular Hemoglobin 29, Mean Corpuscular Hemoglobin Concent 33, Red Cell Distribution Width 14.6, Platelet Count 207, Mean Platelet Volume 11.3, Immature Granulocyte % (Auto) 0, Neutrophils (%) (Auto) 61, Lymphocytes (%) (Auto) 23, Monocytes (%) (Auto) 10, Eosinophils (%) (Auto) 6, Basophils (%) (Auto) 1, Neutrophils # (Auto) 5.7, Lymphocytes # (Auto) 2.2, Monocytes # (Auto) 0.9, Eosinophils # (Auto) 0.6, Basophils # (Auto) 0.1, Immature Granulocyte # (Auto) 0.0, Sodium Level 142, Potassium Level 3.7, Chloride Level 108, Carbon Dioxide Level 23, Anion Gap 11, Blood Urea Nitrogen 16, Creatinine 0.87, Estimat Glomerular Filtration Rate 89, BUN/Creatinine Ratio 18, Glucose Level 95, Calcium Level 9.6, Corrected Calcium 9.8, Total Bilirubin 0.9, Aspartate Amino Transf (AST/SGOT) 19, Alanine Aminotransferase (ALT/SGPT) 18, Alkaline Phosphatase 73, Total Protein 6.6, Albumin 3.7 10/21/20 06:03: White Blood Count 11.9, Red Blood Count 5.01, Hemoglobin 14.6, Hematocrit 45, Mean Corpuscular Volume 90, Mean Corpuscular Hemoglobin 29, Mean Corpuscular Hemoglobin Concent 32, Red Cell Distribution Width 14.9, Platelet Count 204, Mean Platelet Volume 10.6, Immature Granulocyte % (Auto) 0, Neutrophils (%) (Auto) 65, Lymphocytes (%) (Auto) 21, Monocytes (%) (Auto) 9, Eosinophils (%) (Auto) 4, Basophils (%) (Auto) 1, Neutrophils # (Auto) 7.8, Lymphocytes # (Auto) 2.5, Monocytes # (Auto) 1.1, Eosinophils # (Auto) 0.5, Basophils # (Auto) 0.1, Immature Granulocyte # (Auto) 0.0, Sodium Level 139, Potassium Level 4.0, Chloride Level 106, Carbon Dioxide Level 24, Anion Gap 9, Blood Urea Nitrogen 20, Creatinine 0.89, Estimat Glomerular Filtration Rate 86, BUN/Creatinine Ratio 22, Glucose Level 104, Calcium Level 9.9, Corrected Calcium 10.1, Total Bilirubin 0.9, Aspartate Amino Transf (AST/SGOT) 16, Alanine Aminotransferase (ALT/SGPT) 17, Alkaline Phosphatase 72, Total Protein 6.7, Albumin 3.8 10/23/20 07:09: White Blood Count 10.1, Red Blood Count 4.83, Hemoglobin 14.2, Hematocrit 44, Mean Corpuscular Volume 91, Mean Corpuscular Hemoglobin 29, Mean Corpuscular Hemoglobin Concent 32, Red Cell Distribution Width 14.9, Platelet Count 205, Mean Platelet Volume 10.7, Immature Granulocyte % (Auto) 0, Neutrophils (%) (Auto) 62, Lymphocytes (%) (Auto) 24, Monocytes (%) (Auto) 8, Eosinophils (%) (Auto) 5, Basophils (%) (Auto) 1, Neutrophils # (Auto) 6.2, Lymphocytes # (Auto) 2.4, Monocytes # (Auto) 0.8, Eosinophils # (Auto) 0.5, Basophils # (Auto) 0.1, Immature Granulocyte # (Auto) 0.0, Sodium Level 140, Potassium Level 4.2, Chloride Level 107, Carbon Dioxide Level 22, Anion Gap 11, Blood Urea Nitrogen 21, Creatinine 0.91, Estimat Glomerular Filtration Rate 84, BUN/Creatinine Ratio 23, Glucose Level 96, Calcium Level 10.0, Corrected Calcium 10.2, Total Bilirubin 0.9, Aspartate Amino Transf (AST/SGOT) 15, Alanine Aminotransferase (ALT/SGPT) 18, Alkaline Phosphatase 62, Total Protein 6.5, Albumin 3.8 Discharge Home Medications: Active Scripts Active Amlodipine Besylate 5 Mg Tablet 5 Mg PO BID 30 Days Reported Lisinopril 40 Mg Tablet 20 Mg PO DAILY TAKES (40MG) TABLET Fluticasone Propionate 16 Gm [place].susp 2 Sprays NS DAILY Vitamin D3 (Cholecalciferol (Vitamin D3)) 50 Mcg Tablet 50 Mcg PO DAILY Bupropion HCl Sr (Bupropion HCl) 150 Mg Tablet.er 150 Mg PO BID Aspirin EC (Aspirin) 325 Mg Tablet.dr 325 Mg PO DAILY Proair Hfa (Albuterol Sulfate) 1 Puff Puff 2 Puff IH Q4H PRN Neurontin (Gabapentin) 300 Mg Capsule 900 Mg PO TID TAKES 3 (300MG) CAPSULES Atorvastatin Calcium 80 Mg Tablet 80 Mg PO HS Plavix (Clopidogrel Bisulfate) 75 Mg Tablet 75 Mg PO DAILY Baclofen 10 Mg Tablet 10 Mg PO TID PRN Instructions to patient/family Please see electronic discharge instructions given to patient. Diagnosis/Problems Diagnosis/Problems (1) Right sided weakness Status: Acute (2) Facial droop Status: Acute (3) Bilateral carotid artery occlusion Status: Acute (4) UTI (urinary tract infection) Status: Acute Qualifiers: Qualified Codes: N39.0 - Urinary tract infection, site not specified PRUDENCE BECK DO Oct 23, 2020 16:16
== END 2020-10-23 16:45 | DRG 65 ==
LOC: EDUNIT# 21:14 → ER 21:15 → 4TH 10-19 00:44
PROVIDERS: ADMIT Family Medicine; ATTEND Internal Medicine
DX: I63.233 Cerebral infarction due to unspecified occlusion or stenosis of bilateral carotid arteries (principal); N39.0 Urinary tract infection, site not specified; G81.94 Hemiplegia, unspecified affecting left nondominant side; R47.1 Dysarthria and anarthria; R41.0 Disorientation, unspecified; R29.810 Facial weakness; R29.712 NIHSS score 12; K59.00 Constipation, unspecified; M25.511 Pain in right shoulder; I10 Essential (primary) hypertension; R05 Cough; F12.90 Cannabis use, unspecified, uncomplicated; Z79.82 Long term (current) use of aspirin; Z79.899 Other long term (current) drug therapy; Z95.5 Presence of coronary angioplasty implant and graft; J44.9 Chronic obstructive pulmonary disease, unspecified; I25.10 Atherosclerotic heart disease of native coronary artery without angina pectoris; I25.2 Old myocardial infarction; E78.00 Pure hypercholesterolemia, unspecified; I73.9 Peripheral vascular disease, unspecified; G62.9 Polyneuropathy, unspecified; M19.90 Unspecified osteoarthritis, unspecified site; G89.29 Other chronic pain; M54.9 Dorsalgia, unspecified; F41.9 Anxiety disorder, unspecified; F32.9 Major depressive disorder, single episode, unspecified; F19.10 Other psychoactive substance abuse, uncomplicated; E78.5 Hyperlipidemia, unspecified; Z91.19 Patient's noncompliance with other medical treatment and regimen
CPT/HCPCS: 36415; 51702; 70450; 70496; 70498; 71045; 80048; 80053; 80061; 80306; 80320; 81000; 82947; 84484; 85007; 85025; 85027; 85379; 85610; 85730; 87088; 93005; 93041; 93306; 94640; 94664; 94760; 96374

== ENCOUNTER 2021-01-04 22:20 | Inpatient (IN) | payer OTHER, MEDICARE ==
[~2021-01-04] VITALS: Ht 185.5 cm; Wt 76.8 kg
[~2021-01-04 22:20] MED LIST changes: +BUPR150T14 PO; +CHOL200059 PO; +FLUT16SP22 NSEACH; +LISI40TA9 PO
[2021-01-04 22:22] VITALS: BP 87/62
[2021-01-04] MEDS ORDERED: LACTATED RINGERS 1,000 ML IV ONE ×2 (22:30→23:15)
[2021-01-04 22:37] LABS: BASOPHILS # (AUTO) 0.1 10^3/uL (0.0-0.1); BASOPHILS % (AUTO) 1 % (0-10); EOSINOPHILS # (AUTO) 0.4 10^3/uL (0.0-0.3); EOSINOPHILS % (AUTO) 4 % (0-10); HEMATOCRIT 42 % (40-54); HEMOGLOBIN 13.7 g/dL (13.3-17.7); LYMPHOCYTES # (AUTO) 2.7 10^3/uL (1.0-4.0); LYMPHOCYTES % (AUTO) 24 % (12-44); MEAN CORPUSCULAR HEMOGLOBIN 30 pg (25-34); MEAN CORPUSCULAR HGB CONC 33 g/dL (32-36); MEAN CORPUSCULAR VOLUME 92 fL (80-99); MEAN PLATELET VOLUME 10.3 fL (9.0-12.2); MONOCYTES # (AUTO) 1.1 10^3/uL (0.0-1.0); MONOCYTES % (AUTO) 9 % (0-12); NEUTROPHILS # (AUTO) 7.2 10^3/uL (1.8-7.8); NEUTROPHILS % (AUTO) 63 % (42-75); PLATELET COUNT 227 10^3/uL (130-400); WHITE BLOOD COUNT 11.6 10^3/uL (4.3-11.0)
[2021-01-04 22:46] LABS: POTASSIUM 3.6 MMOL/L (3.6-5.0)
[2021-01-04 22:47] LABS: CALCIUM 9.3 MG/DL (8.5-10.1)
[2021-01-04 22:48] LABS: TOTAL PROTEIN 6.8 GM/DL (6.4-8.2)
[2021-01-04 22:50] LABS: BILIRUBIN,TOTAL 0.8 MG/DL (0.1-1.0)
[2021-01-04 22:51] LABS: CREATININE SERUM 0.89 MG/DL (0.60-1.30)
[2021-01-04 22:54] LABS: MAGNESIUM 2.1 MG/DL (1.6-2.4)
[2021-01-04] MEDS ORDERED: DEXTROSE 50% 50 ML (IMS) SYR IV ONE (23:00)
[2021-01-04 23:01] LABS: CREATINE KINASE MB 3.4 NG/ML (<6.6)
[2021-01-04 23:50] LABS: BILIRUBIN,URINE 1+ (NEGATIVE); CLARITY,URINE CLEAR; COLOR,URINE YELLOW; GLUCOSE, URINE (UA) TRACE (NEGATIVE); KETONES,URINE NEGATIVE (NEGATIVE); LEUKOCYTE ESTERASE ,URINE NEGATIVE (NEGATIVE); NITRITE,URINE NEGATIVE (NEGATIVE); PROTEIN,URINE TRACE (NEGATIVE)
[2021-01-04 23:58] LABS: BACTERIA,URINE NEGATIVE /HPF; SQUAMOUS EPITHELIAL CELL,UR 0-2 /HPF
--- NOTE | 2021-01-05 00:05 | Diagnostic Imaging Report ---
EXAM: CHEST 1 VIEW, AP/PA ONLY INDICATION: Sepsis. COMPARISON: Chest radiograph 10/18/2020. FINDINGS: Normal heart size and central pulmonary vascularity. No focal pulmonary opacity. No pleural effusion or pneumothorax. No acute osseous findings. IMPRESSION: No acute cardiopulmonary findings. Dictated by: Dictated on workstation # [id number]
[2021-01-05] MEDS ORDERED: fentaNYL INJ 100 MCG/2 ML AMP IVP ONE (00:30)
[2021-01-05] MEDS ORDERED: ONDANSETRON 4 MG/2 ML (SDV) Z0FRAN IVP PRN (01:45)
[2021-01-05] MEDS ORDERED: PATIENT MAY USE OWN MEDS, ALL PO SCH (01:45)
[2021-01-05] MEDS ORDERED: NITROGLYCERIN 0.4 MG SL TABS BTL 25'S SL PRN ×2 (01:45→02:00)
--- NOTE | 2021-01-05 01:52 | Tele-ICU Consult ---
History of Present Illness History of Present Illness Date Seen by Provider: Jan 05, 2021 Time Seen by Provider: 01:10 Date of Admission This virtual visit was conducted using real time audio/video. Thank you for asking us to see this patient for hypotension and mildly elevated troponin. No reports available from ER/OSH. PMH: CVA SH: smoking history unknown FH: Non-contributory ROS: limited PE: VSS. 85/min NSR O2 sat 89% on RA HEENT: No obvious masses, adenopathy or JVD. Chest: clear to auscultation. CV: RRR S1 S2 No murmur or added sounds. Abd: Non-tender. Bowel sounds Y. : Unremarkable. Moe N. HEDIS REGISTERED NURSE RN/psychiatric: Grossly intact. No obvious focal findings. Extremities: No edema. Capillary refill < 3 seconds. Skin: unremarkable. Results: Elevated WCC 11.6, trop 0.03.. Decreased BG 57. CXR: not available.. Available chart/ vitals / labs / images reviewed. Video assessment done using teleICU camera, rest of exam as per RN. A/P: Critical Care: critically ill patient. Cont. IVF, monitor for hypotension. BP normalized w 2 LPM IVF. Discussed with KWASI Rosenbaum. Asked RN to reach out to eICU if any questions or concerns later. Time spent with patient/coordination of care with other health professionals (mins): 22 Allergies and Home Medications Allergies Coded Allergies: No Known Drug Allergies (Unverified , 03/13/18) Home Medications Albuterol Sulfate 1 Puff Puff, 2 PUFF IH Q4H PRN for SHORTNESS OF BREATH, (Reported) Amlodipine Besylate 5 Mg Tablet, 5 MG PO BID Prescribed by: PRUDENCE BECK on 10/23/20 1614 Aspirin 325 Mg Tablet.dr, 325 MG PO DAILY, (Reported) Atorvastatin Calcium 80 Mg Tablet, 80 MG PO HS, (Reported) Baclofen 10 Mg Tablet, 10 MG PO TID PRN for MUSCLE SPASMS, (Reported) Bupropion HCl 150 Mg Tablet.er, 150 MG PO BID, (Reported) Cholecalciferol (Vitamin D3) 50 Mcg Tablet, 50 MCG PO DAILY, (Reported) Clopidogrel Bisulfate 75 Mg Tablet, 75 MG PO DAILY, (Reported) Fluticasone Propionate 16 Gm [place].susp, 2 SPRAYS NS DAILY, (Reported) Gabapentin 300 Mg Capsule, 900 MG PO TID, (Reported) TAKES 3 (300MG) CAPSULES Lisinopril 40 Mg Tablet, 20 MG PO DAILY, (Reported) TAKES (40MG) TABLET Past Medical/Social/Family Hx Patient Social History Tobacco Use?: Yes Tobacco type used: Cigarettes Smoking Status: Current Everyday Smoker Use of E-Cig and/or Vaping dev: No Substance use?: No Alcohol Use?: No Pt stated abuse/neglect: No Immunizations Up To Date Influenza Vaccine Up-to-Date: Yes; Up-to-Date First/Initial COVID19 Vaccinat: Unsure of date of 1 dose Second COVID19 Vaccination Oskar: Unsure of date of 2nd dose Tetanus Booster (TDap): Less Than 5 Years TB Skin Test: Negative Date of Pneumonia Vaccine: June 20, 2013 Current Status Advance Directives: No Communicates: Verbally Primary Language: Spanish Preferred Spoken Language: Spanish Is interpretation needed?: No Past Medical History Hypertension Hyperlipidemia Carotid stenosis CVA Methamphetamine use Cannabis use Tobacco abuse Family Medical History Family Hx: SOCIAL HISTORY: -ETOH--OCCASIONAL USE, HX OF HEAVY USE -DRUGS--DAILY MARIJUANA USE, ALSO METH USE. DENIES IV DRUG USE -SMOKES 2 PPD PAST SURGICAL HISTORY: -LAST CARDIAC CATH DONE HERE IN 2013--PATENT STENTS -CARDIAC CATHS WITH STENTS X 3 -BILATERAL CAROTID ENDARTERECTOMY -RIGHT CAROTID STENT 01/21/20 AT -RIGHT EYE SURGERY CHILD -CERVICAL SPINE AND LUMBAR SPINE SURGERIES -LEFT FOOT FRACTURE/ ORIF -SKIN CANCER REMOVAL -APPENDECTOMY Review of Systems Constitutional: see HPI EENTM: see HPI Respiratory: see HPI Cardiovascular: see HPI Gastrointestinal: see HPI Genitourinary: see HPI Musculoskeletal: see HPI Skin: see HPI Psychiatric/Neurological: See HPI (see free text.) Sepsis Event Evaluation Height, Weight, BMI Height: 6'1.00" Weight: 195lbs. 0oz. [id number]; 136.00 BMI Method:Actual Exam Exam Patient acknowledged, consented, and participated in this virtual visit which was conducted using real time audio/video Vital Signs Date Time Temp Pulse Resp B/P (MAP) Pulse Ox O2 Delivery O2 Flow Rate FiO2 01/04/21 22:22 96 Room Air 01/04/21 22:22 36.5 68 20 87/62 (70) 95 Room Air Height & Weight Height: 6'1.00" Weight: 195lbs. 0oz. [id number]; 136.00 BMI Method:Actual General Appearance: No Apparent Distress Capillary Refill: Less Than 3 Seconds Peripheral Pulses: 1+ Dorsalis Pedis (R), 1+ Left Dors-Pedis (L) Results Lab Laboratory Tests 01/04/21 22:25 Assessment/Plan Assessment/Plan See free text. Critical Care: Critically Ill Patient DAVID GARCIA MD Jan 05, 2021 01:52
[2021-01-05] MEDS ORDERED: fentaNYL INJ 100 MCG/2 ML AMP IV PRN (02:00)
[2021-01-05] MEDS ORDERED: ONDANSETRON 4 MG/2 ML (SDV) Z0FRAN IV PRN (02:00)
[2021-01-05] MEDS: D5 1/2 NS W/KCL 20 MEQ/L 1,000 ML IV SCH ×4 (02:34→21:02)
[2021-01-05 05:10] LABS: BASOPHILS # (AUTO) 0.1 10^3/uL (0.0-0.1); BASOPHILS % (AUTO) 1 % (0-10); EOSINOPHILS # (AUTO) 0.5 10^3/uL (0.0-0.3); EOSINOPHILS % (AUTO) 4 % (0-10); HEMATOCRIT 41 % (40-54); HEMOGLOBIN 13.7 g/dL (13.3-17.7); LYMPHOCYTES # (AUTO) 2.6 10^3/uL (1.0-4.0); LYMPHOCYTES % (AUTO) 25 % (12-44); MEAN CORPUSCULAR HEMOGLOBIN 30 pg (25-34); MEAN CORPUSCULAR HGB CONC 33 g/dL (32-36); MEAN CORPUSCULAR VOLUME 92 fL (80-99); MEAN PLATELET VOLUME 10.7 fL (9.0-12.2); MONOCYTES # (AUTO) 0.8 10^3/uL (0.0-1.0); MONOCYTES % (AUTO) 8 % (0-12); NEUTROPHILS # (AUTO) 6.8 10^3/uL (1.8-7.8); NEUTROPHILS % (AUTO) 63 % (42-75); PLATELET COUNT 207 10^3/uL (130-400); WHITE BLOOD COUNT 10.8 10^3/uL (4.3-11.0)
[2021-01-05 05:28] LABS: POTASSIUM 3.7 MMOL/L (3.6-5.0)
[2021-01-05 05:29] LABS: CALCIUM 8.8 MG/DL (8.5-10.1)
[2021-01-05 05:34] LABS: CREATININE SERUM 0.71 MG/DL (0.60-1.30)
[2021-01-05] MEDS ORDERED: REGADENOSON 0.4 MG/5 ML SYR (LEXISCAN) IV ONE ×2 (08:45→12:11)
[2021-01-05] MEDS ORDERED: ENOXAPARIN 100 MG/1 ML (LOVENOX) SYR SC SCH (08:45)
--- NOTE | 2021-01-05 08:50 | Consultation-Cardiology ---
HPI-Cardiology Cardiology Consultation Date of Consultation 01/05/21 Date of Admission Time Seen by Provider: 08:46 Indication: Coronary artery disease HPI 65-year-old gentleman with history of coronary artery disease, multiple stents in the past, last evaluation was in 2013, has been following with the [facility], active smoker, has been complaining of generalized fatigue and loss of energy. Denies any chest pain or palpitation. Came into the emergency room for evaluation noted to have slight elevation in troponin level. No acute EKG changes were noted. On my evaluation was feeling well. Denies any chest pain, blood pressure is stable at this time. Home Medications & Allergies Allergies: Coded Allergies: No Known Drug Allergies (Unverified , 03/13/18) Home Medication List Reviewed: Yes SLD-[id number] Hx Patient Social History Drug of Choice: DAILY MARIJUANA USE, METH USE, DENIES IV USE Smoking Status: Current Everyday Smoker Type Used: Cigarettes 2nd Hand Smoke Exposure: Yes Recent Hopitalizations: No Have you traveled recently?: No Alcohol Use?: No Immunizations Up To Date Tetanus Booster (TDap): Less than 5yrs Date of Pneumonia Vaccine: June 20, 2013 Date of Influenza Vaccine: Nov 09, 2020 Past Medical History Discussed below Family Medical History Family History: Cancer 19 FATHER (SKIN) 19 MOTHER Cancer of colon 19 MOTHER Kidney disease 19 FATHER (PASSED KIDNEY FAILURE) Review of Systems-General Review of Systems Constitutional: see HPI; No chills, No diaphoresis, No dizziness, No fever; malaise; No weakness, No weight gain, No weight loss, No other EENTM: see HPI Respiratory: see HPI, cough; No dyspnea on exertion, No hemoptysis, No orthopnea, No phlegm, No short of breath, No stridor, No wheezing, No other Cardiovascular: see HPI; No chest pain, No edema, No Hx of Intervention, No palpitations, No syncope, No vascular heart diseas, No other Gastrointestinal: see HPI Genitourinary: see HPI Musculoskeletal: see HPI Skin: see HPI Psychiatric/Neurological: See HPI (see free text.) Reviewed Test Results Reviewed Test Results Lab Laboratory Tests Test 01/04/21 22:25 01/04/21 22:30 01/04/21 22:45 01/04/21 23:35 Range/Units White Blood Count 11.6 H 4.3-11.0 10^3/uL Red Blood Count 4.52 4.30-5.52 10^6/uL Hemoglobin 13.7 13.3-17.7 g/dL Hematocrit 42 40-54 % Mean Corpuscular Volume 92 80-99 fL Mean Corpuscular Hemoglobin 30 25-34 pg Mean Corpuscular Hemoglobin Concent 33 32-36 g/dL Red Cell Distribution Width 14.7 H 10.0-14.5 % Platelet Count 227 130-400 10^3/uL Mean Platelet Volume 10.3 9.0-12.2 fL Immature Granulocyte % (Auto) 0 % Neutrophils (%) (Auto) 63 42-75 % Lymphocytes (%) (Auto) 24 12-44 % Monocytes (%) (Auto) 9 0-12 % Eosinophils (%) (Auto) 4 0-10 % Basophils (%) (Auto) 1 0-10 % Neutrophils # (Auto) 7.2 1.8-7.8 10^3/uL Lymphocytes # (Auto) 2.7 1.0-4.0 10^3/uL Monocytes # (Auto) 1.1 H 0.0-1.0 10^3/uL Eosinophils # (Auto) 0.4 H 0.0-0.3 10^3/uL Basophils # (Auto) 0.1 0.0-0.1 10^3/uL Immature Granulocyte # (Auto) 0.0 0.0-0.1 10^3/uL Prothrombin Time 13.0 12.2-14.7 SEC INR Comment 1.0 0.8-1.4 Activated Partial Thromboplast Time 26 24-35 SEC Sodium Level 143 135-145 MMOL/L Potassium Level 3.6 3.6-5.0 MMOL/L Chloride Level 105 98-107 MMOL/L Carbon Dioxide Level 26 21-32 MMOL/L Anion Gap 12 5-14 MMOL/L Blood Urea Nitrogen 22 H 7-18 MG/DL Creatinine 0.89 0.60-1.30 MG/DL Estimat Glomerular Filtration Rate 86 BUN/Creatinine Ratio 25 Glucose Level 57 *L 70-105 MG/DL Calcium Level 9.3 8.5-10.1 MG/DL Corrected Calcium 9.3 8.5-10.1 MG/DL Magnesium Level 2.1 1.6-2.4 MG/DL Total Bilirubin 0.8 0.1-1.0 MG/DL Aspartate Amino Transf (AST/SGOT) 16 5-34 U/L Alanine Aminotransferase (ALT/SGPT) 15 0-55 U/L Alkaline Phosphatase 67 40-136 U/L Total Creatine Kinase 142 30-200 U/L Creatine Kinase MB 3.4 <6.6 NG/ML Troponin I 0.030 H <0.028 NG/ML B-Type Natriuretic Peptide 16.8 <100.0 PG/ML Total Protein 6.8 6.4-8.2 GM/DL Albumin 4.0 3.2-4.5 GM/DL Procalcitonin 0.03 <0.10 NG/ML Influenza Type A (RT-PCR) Not Detected Not Detecte Influenza Type B (RT-PCR) Not Detected Not Detecte SARS-CoV-2 RNA (RT-PCR) Not Detected Not Detecte Lactic Acid Level 1.17 0.50-2.00 MMOL/L Urine Color YELLOW Urine Clarity CLEAR Urine pH 6.0 5-9 Urine Specific [place] 1.025 H 1.016-1.022 Urine Protein TRACE H NEGATIVE Urine Glucose (UA) TRACE H NEGATIVE Urine Ketones NEGATIVE NEGATIVE Urine Nitrite NEGATIVE NEGATIVE Urine Bilirubin 1+ H NEGATIVE Urine Urobilinogen 4.0 < = 1.0 MG/DL Urine Leukocyte Esterase NEGATIVE NEGATIVE Urine RBC (Auto) NEGATIVE NEGATIVE Urine RBC NONE /HPF Urine WBC NONE /HPF Urine Squamous Epithelial Cells 0-2 /HPF Urine Crystals NONE /LPF Urine Bacteria NEGATIVE /HPF Urine Casts PRESENT /LPF Urine Hyaline Casts 2-5 H /LPF Urine Mucus SMALL H /LPF Urine Culture Indicated CULTURE PENDING Test 01/04/21 23:40 01/05/21 01:15 01/05/21 04:15 01/05/21 07:30 Range/Units Glucometer 99 70-110 MG/DL Troponin I 0.031 H 0.029 H <0.028 NG/ML White Blood Count 10.8 4.3-11.0 10^3/uL Red Blood Count 4.51 4.30-5.52 10^6/uL Hemoglobin 13.7 13.3-17.7 g/dL Hematocrit 41 40-54 % Mean Corpuscular Volume 92 80-99 fL Mean Corpuscular Hemoglobin 30 25-34 pg Mean Corpuscular Hemoglobin Concent 33 32-36 g/dL Red Cell Distribution Width 14.7 H 10.0-14.5 % Platelet Count 207 130-400 10^3/uL Mean Platelet Volume 10.7 9.0-12.2 fL Immature Granulocyte % (Auto) 0 % Neutrophils (%) (Auto) 63 42-75 % Lymphocytes (%) (Auto) 25 12-44 % Monocytes (%) (Auto) 8 0-12 % Eosinophils (%) (Auto) 4 0-10 % Basophils (%) (Auto) 1 0-10 % Neutrophils # (Auto) 6.8 1.8-7.8 10^3/uL Lymphocytes # (Auto) 2.6 1.0-4.0 10^3/uL Monocytes # (Auto) 0.8 0.0-1.0 10^3/uL Eosinophils # (Auto) 0.5 H 0.0-0.3 10^3/uL Basophils # (Auto) 0.1 0.0-0.1 10^3/uL Immature Granulocyte # (Auto) 0.0 0.0-0.1 10^3/uL Sodium Level 142 135-145 MMOL/L Potassium Level 3.7 3.6-5.0 MMOL/L Chloride Level 107 98-107 MMOL/L Carbon Dioxide Level 25 21-32 MMOL/L Anion Gap 10 5-14 MMOL/L Blood Urea Nitrogen 15 7-18 MG/DL Creatinine 0.71 0.60-1.30 MG/DL Estimat Glomerular Filtration Rate 112 BUN/Creatinine Ratio 21 Glucose Level 134 H 70-105 MG/DL Calcium Level 8.8 8.5-10.1 MG/DL Triglycerides Level 37 <150 MG/DL Cholesterol Level 74 < 200 MG/DL LDL Cholesterol Direct 28 1-129 MG/DL VLDL Cholesterol 7 5-40 MG/DL HDL Cholesterol 36 L 40-60 MG/DL Physical Exam Physical Exam Vital Signs Vital Signs - First Documented Capillary Refill : Less Than 3 Seconds Height, Weight, BMI Height: 6'1.00" Weight: 195lbs. 0oz. [id number]; 122.13 BMI Method:Actual General Appearance: No Apparent Distress Eyes: Bilateral Eye Normal Inspection, Bilateral Eye PERRL, Bilateral Eye EOMI HEENT: PERRL/EOMI, TMs Normal, Normal ENT Inspection, Pharynx Normal, Moist Mucous Membranes Neck: Full Range of Motion, Normal Inspection, Non Tender, Supple, Carotid Bruit Respiratory: Chest Non Tender, Normal Breath Sounds, No Accessory Muscle Use, No Respiratory Distress Cardiovascular: Regular Rate, Rhythm, No Edema, No Gallop, No JVD, No Murmur, Normal Peripheral Pulses Gastrointestinal: Normal Bowel Sounds, No Organomegaly, No Pulsatile Mass, Non Tender, Soft Back: Normal Inspection, No CVA Tenderness, No Vertebral Tenderness Extremity: Normal Capillary Refill, Normal Inspection, Normal Range of Motion, Non Tender, No Calf Tenderness, No Pedal Edema Neurologic/Psychiatric: Alert, Oriented x3, No Motor/Sensory Deficits, Normal Mood/Affect Skin: Normal Color, Warm/Dry Lymphatic: No Adenopathy A/P-Cardiology Admission Diagnosis Coronary artery disease Hypertension Hyperlipidemia Tobaccoism Assessment/Plan Coronary artery disease, multiple intervention in the past, had last intervention was done in 2013, no recent cardiac follow-up, was following with [facility]. Had mild elevation in troponin, EKG did not show any acute abnormality. I will start him on aspirin and Lovenox, plan to evaluate 2D echo and Lexiscan stress test and evaluate tolerance and response Hypertension, reporting episodes of hypotension at home. Continue to monitor blood pressure, receiving IV fluid Hyperlipidemia, monitor lipids Tobaccoism, educated on smoking cessation. History of CVA in October 2020. Recovered. Continue to monitor History of substance abuse, tested positive for THC in the past, no drug screen was done on this admission DEMETRIO ALVAREZ MD Jan 05, 2021 08:50
[2021-01-05] MEDS ORDERED: ASPIRIN E.C. 81 MG (ECOTRIN) TAB PO SCH ×3 (09:00)
[2021-01-05] MEDS ORDERED: DICL20GE TP (09:28)
[2021-01-05] MEDS ORDERED: AMLO-250 PO (09:28)
[2021-01-05] MEDS ORDERED: CELE200C PO (09:28)
[2021-01-05] MEDS ORDERED: ACET-2840 PO (09:28)
[2021-01-05] MEDS ORDERED: BUPR150T14 PO (09:28)
[2021-01-05] MEDS ORDERED: GUAI5LIQ11 PO (09:28)
--- NOTE | 2021-01-05 09:59 | History & Physical-Hospitalist ---
History of Present Illness HPI/Chief Complaint CC: Hypotension with Altered Mental Status HPI: This is a 65yoWM previous long-term pt who I have seen before with a hx of CVA and COPD continued smoking who presented to the ER found to be hypotensive requiring IV fluid and cardiology consultation due to elevated Troponin. Currently echo is being performed but he is sleeping soundly and doesn't want to wakeup to interview. Source: patient, RN/MD, old records Exam Limitations: clinical condition Date Seen 01/05/21 Time Seen by a Provider: 10:00 Attending Physician Debbie Pereira DO PCP Mary Pérez MD Referring Physician Date of Admission Jan 05, 2021 at 00:10 Home Medications & Allergies Home Medications Reviewed patient Home Medication Reconciliation performed by pharmacy medication reconciliations air quality technician and/or nursing. Patients Allergies have been reviewed. Allergies Allergies Coded Allergies No Known Drug Allergies (Unverified03/13/18) Past Vptygce-Klbdes-Sufgxo Hx Patient Social History Marrital Status: single Employed/Student: unemployed Tobacco Use?: Yes Tobacco type used: Cigarettes Smoking Status: Current Everyday Smoker Use of E-Cig and/or Vaping dev: No Substance use?: No Alcohol Use?: No Pt feels they are or have been: No Immunizations Up To Date Date of Influenza Vaccine: Nov 09, 2020 First/Initial COVID19 Vaccinat: Unsure of date of 1 dose Second COVID19 Vaccination Oskar: Unsure of date of 2nd dose Tetanus Booster (TDap): Less Than 5 Years Date of Pneumonia Vaccine: June 20, 2013 Seasonal Allergies Seasonal Allergies: No Current Status Advance Directives: Unable to obtain Communicates: Verbally Primary Language: Palestinian Preferred Spoken Language: Palestinian Is interpretation needed?: No Sensory deficits: Vision impairment Implanted or Applied Medical D: Stents Past Medical History Surgeries: Angioplasty, Appendectomy, Cardiac, Coronary Stent, Eye Surgery, Orthopedic, Vascular Surgery COPD Currently Using CPAP: No Currently Using BIPAP: No High Cholesterol, Hypertension Stroke Sexually Transmitted Disease: No HIV/AIDS: No Hepatitis Degenerate Disk Disease, Arthritis, Chronic Back Pain, Fractures Loss of Vision: Bilateral Hearing Impairment: Hard of Hearing Skin Did You Recieve Any Treatments: Yes What Type of Treatment Did You: Surgical Intervention Anxiety, Violent Behavior, Depression Recent Skin Changes Blood Disorders: No Adverse Reaction/Blood Tranf: No Hypertension Hyperlipidemia Carotid stenosis CVA Methamphetamine use Cannabis use Tobacco abuse Family Medical History Cancer 19 FATHER (SKIN) 19 MOTHER Cancer of colon 19 MOTHER Kidney disease 19 FATHER (PASSED KIDNEY FAILURE) SOCIAL HISTORY: -ETOH--OCCASIONAL USE, HX OF HEAVY USE -DRUGS--DAILY MARIJUANA USE, ALSO METH USE. DENIES IV DRUG USE -SMOKES 2 PPD PAST SURGICAL HISTORY: -LAST CARDIAC CATH DONE HERE IN 2013--PATENT STENTS -CARDIAC CATHS WITH STENTS X 3 -BILATERAL CAROTID ENDARTERECTOMY -RIGHT CAROTID STENT 01/21/20 AT -RIGHT EYE SURGERY CHILD -CERVICAL SPINE AND LUMBAR SPINE SURGERIES -LEFT FOOT FRACTURE/ ORIF -SKIN CANCER REMOVAL -APPENDECTOMY Review of Systems ROS-Unable to Obtain: Patient sleeping Constitutional: see HPI, malaise, weakness Physical Exam Physical Exam Vital Signs Vital Signs - First Documented Capillary Refill : Less Than 3 Seconds Height, Weight, BMI Height: 6'1.00" Weight: 195lbs. 0oz. [id number]; 122.13 BMI Method:Actual General Appearance: No Apparent Distress, Chronically ill, Thin Eyes: Right Eye Normal Inspection, Right Eye PERRL HEENT: PERRL/EOMI, Normal ENT Inspection, Pharynx Normal, Moist Mucous Mem branes Neck: Full Range of Motion, Normal Inspection, Non Tender Respiratory: Chest Non Tender, Lungs Clear, Normal Breath Sounds, No Accessory Muscle Use, No Respiratory Distress Cardiovascular: Regular Rate, Rhythm, No Edema, No Gallop, No JVD, No Murmur, Normal Peripheral Pulses Gastrointestinal: Normal Bowel Sounds, No Organomegaly, No Pulsatile Mass, Non Tender, Soft Back: Normal Inspection, No CVA Tenderness, No Vertebral Tenderness Extremity: Normal Capillary Refill, Normal Inspection, Non Tender, No Calf Tenderness, No Pedal Edema Neurologic/Psychiatric: Other (Asleep) Skin: Normal Color, Warm/Dry Lymphatic: No Adenopathy Results Results/Procedures Labs Laboratory Tests 01/04/21 22:25 01/05/21 04:15 Patient resulted labs reviewed. Assessment/Plan Admission Diagnosis Assessment: Hypertension Altered mental status NSTEMI History of CVA with right sided weakness recurrent in type History of meth use hx History of THC use Smoker heavy use Cartoid stenosis CAD HTN COPD Plan: Transfer to cardiac stepdown Cardiology consult Echo Stress test Admission Status: Inpatient Order (span 2 midnights) Reason for Inpatient Admission: Hypertension with elevated troponin DEBBIE PEREIRA DO Jan 05, 2021 09:59
[2021-01-05] MEDS: ENOXAPARIN 80 MG/0.8 ML (LOVENOX) SYR SC SCH ×2 (11:09→22:56)
[2021-01-05] MEDS ORDERED: NS IV 1000 ML 1,000 ML ONE (12:20)
[2021-01-05] MEDS ORDERED: NS IV 1000 ML 1,000 ML IV STA (12:36)
--- NOTE | 2021-01-05 14:26 | Cardiology Stress Test Report ---
Stress Test Report Date of Procedure/Referring: Date of Procedure: Jan 05, 2021 PCP Debbie Pereira DO Admitting Physician Mary Pérez MD Indications: Chest pain Baseline Blood Pressure: Blood Pressure Systolic: 87 Blood Pressure Diastolic: 62 Baseline Vitals Vital Signs Date Time Temp Pulse Resp B/P (MAP) Pulse Ox O2 Delivery O2 Flow Rate FiO2 01/04/21 22:22 36.5 68 20 87/62 (70) 95 Room Air Baseline EKG: Baseline EKG: NSR Summary After explaining the procedure to the patient, he signed a consent and then brought to the stress nuclear laboratory. Patient received 0.4 mg Lexiscan for stress test, ECG, heart rate and blood pressure were monitored continuously. Resting and stress dose of radio tracer were injected, imaging was acquired and reviewed in short axis, horizontal long axis and vertical long axis views. TID: 1.12 SSS: 0 SDS: 0 EF: 66 1. Patient tolerated Lexiscan well, and transient episode of hypotension, responded to IV fluid 2. Diaphragmatic attenuation with no significant ischemia or infarction on SPECT images 3. Normal left ventricular size, EF 66% DEMETRIO ALVAREZ MD Jan 05, 2021 14:26
[2021-01-05] MEDS ORDERED: DICLOFENAC 1% GEL 100 GM (VOLTAREN) TUBE TP PRN (14:30)
[2021-01-05] MEDS ORDERED: RT-ALBUTEROL SULF 2.5 MG/3 ML PRE-MIX VIAL IH PRN (14:30)
[2021-01-05] MEDS ORDERED: ACETAMINOPHEN 325 MG TABLET PO PRN (15:45)
[2021-01-05] MEDS: BACLOFEN 10 MG (LIORESAL) TAB PO PRN (16:53)
[2021-01-05] MEDS: GABAPENTIN 300 MG (NEURONTIN) CAP PO SCH (20:26)
[2021-01-05] MEDS: buPROPion SR 150 MG (WELLBUTRIN SR) TAB PO SCH (20:26)
[2021-01-06] MEDS: D5 1/2 NS W/KCL 20 MEQ/L 1,000 ML IV SCH (05:43)
[2021-01-06] MEDS: BACLOFEN 10 MG (LIORESAL) TAB PO PRN (05:45)
[2021-01-06] MEDS: GABAPENTIN 300 MG (NEURONTIN) CAP PO SCH ×2 (05:46→09:54)
[2021-01-06 05:56] LABS: BASOPHILS # (AUTO) 0.1 10^3/uL (0.0-0.1); BASOPHILS % (AUTO) 1 % (0-10); EOSINOPHILS # (AUTO) 0.4 10^3/uL (0.0-0.3); EOSINOPHILS % (AUTO) 4 % (0-10); HEMATOCRIT 38 % (40-54); HEMOGLOBIN 12.7 g/dL (13.3-17.7); LYMPHOCYTES # (AUTO) 2.2 10^3/uL (1.0-4.0); LYMPHOCYTES % (AUTO) 20 % (12-44); MEAN CORPUSCULAR HEMOGLOBIN 30 pg (25-34); MEAN CORPUSCULAR HGB CONC 33 g/dL (32-36); MEAN CORPUSCULAR VOLUME 91 fL (80-99); MEAN PLATELET VOLUME 10.5 fL (9.0-12.2); MONOCYTES # (AUTO) 0.8 10^3/uL (0.0-1.0); MONOCYTES % (AUTO) 8 % (0-12); NEUTROPHILS # (AUTO) 7.3 10^3/uL (1.8-7.8); NEUTROPHILS % (AUTO) 68 % (42-75); PLATELET COUNT 197 10^3/uL (130-400); WHITE BLOOD COUNT 10.9 10^3/uL (4.3-11.0)
[2021-01-06 06:15] LABS: ALBUMIN 3.5 GM/DL (3.2-4.5); POTASSIUM 3.9 MMOL/L (3.6-5.0)
[2021-01-06 06:16] LABS: CALCIUM 8.8 MG/DL (8.5-10.1)
[2021-01-06 06:18] LABS: TOTAL PROTEIN 5.7 GM/DL (6.4-8.2)
[2021-01-06 06:21] LABS: CREATININE SERUM 0.79 MG/DL (0.60-1.30)
--- NOTE | 2021-01-06 06:46 | ED General ---
General Chief Complaint: Cardiac/General Problems Stated Complaint: HYPOTENSION;ELEVATED TROPONIN;HX OF CVA Nursing Triage Note: Pt arrives via EMS from [facility] for c/o low blood pressure. Pt reports feeling light headed earlier today. [facility] took [facility] blood pressure tonight et noted it was 90s systolic. Pt BP 121 systolic for EMS. Nursing Sepsis Screen: No Definite Risk Source of Information: [facility] Records Exam Limitations: Other (PT IS VERY LIMITED HISTORIAN) History of Present Illness Date Seen by Provider: Jan 04, 2021 Time Seen by Provider: 22:22 Initial Comments PT AR[facility]IA [facility] REPORTS LOW BLOOD PRESSURE--90'S SYSTOLIC, SO SENT TO ER EMS REPORT SYSTOLIC BP OF 121 FOR THEM PT STATES HE HAS BEEN LIGHTHEADED FOR A COUPLE OF HOURS NO CHEST PAIN NO COUGH NO SHORTNESS OF BREATH NO NAUSEA/VOMITING NO OTHER SYMPTOMS OR ADDITIONAL INFORMATION FROM PT PT HAS RECEIVED COVID-19 VACCINE. PCP: DR. GARCIA/CAT Allergies and Home Medications Allergies Coded Allergies: No Known Drug Allergies (Unverified , 03/13/18) Patient Home Medication List Home Medication List Reviewed: Yes Acetaminophen (Tylenol 8 Hour) 650 Mg Tablet.er, 650 MG PO Q4H PRN for PAIN-MILD (1-4), (Reported) Entered as Reported by: RENNY STEPHENS on 01/05/21927 Last Action: Converted Albuterol Sulfate (Proair Hfa) 1 Puff Puff, 2 PUFF IH Q6H PRN for SHORTNESS OF BREATH, (Reported) Entered as Reported by: ANNA KOVACS on 10/19/201327 Last Action: Continued Amlodipine Besylate (Amlodipine Besylate) 5 Mg Tablet, 5 MG PO BID, (Reported) Entered as Reported by: RENNY STEPHENS on 01/05/21927 Last Action: Held Aspirin (Aspirin EC) 325 Mg Tablet.dr, 325 MG PO DAILY, (Reported) Entered as Reported by: ANNA KOVACS on 10/19/201327 Last Action: Continued Atorvastatin Calcium (Atorvastatin Calcium) 80 Mg Tablet, 80 MG PO HS, (Reported) Entered as Reported by: RENNY STEPHENS on 04/28/20 1607 Last Action: Continued Baclofen (Baclofen) 10 Mg Tablet, 10 MG PO Q8H PRN for MUSCLE SPASMS, (Reported) Entered as Reported by: LEYLA ESPINOZA on 03/13/181353 Last Action: Continued Bupropion HCl (Bupropion HCl Sr) 150 Mg Tablet.er, 150 MG PO BID, (Reported) Entered as Reported by: RENNY STEPHENS on 01/05/21927 Last Action: Continued Celecoxib (Celebrex) 200 Mg Capsule, 200 MG PO DAILY, (Reported) Entered as Reported by: RENNY STEPHENS on 01/05/21927 Last Action: Converted Cholecalciferol (Vitamin D3) (Vitamin D3) 50 Mcg Tablet, 50 MCG PO DAILY, (Reported) Entered as Reported by: ANNA KOVACS on 10/19/201327 Last Action: Converted Clopidogrel Bisulfate (Plavix) 75 Mg Tablet, 75 MG PO DAILY, (Reported) Entered as Reported by: LEYLA ESPINOZA on 03/13/181353 Last Action: Continued Diclofenac Sodium (Voltaren Arthritis Pain) 20 Gm Gel..gram., 2 GM TP Q8H PRN for PAIN-BREAKTHROUGH, (Reported) Entered as Reported by: RENNY STEPHENS on 01/05/21927 Last Action: Continued Fluticasone Propionate (Fluticasone Propionate) 16 Gm [place].susp, 2 SPRAYS NSEACH DAILY, (Reported) Entered as Reported by: ANNA KOVACS on 10/19/201327 Last Action: Continued Gabapentin (Neurontin) 300 Mg Capsule, 900 MG PO TID, (Reported) Entered as Reported by: ANNA KOVACS on 10/19/201327 Last Action: Continued Guaifenesin/Dextromethorphan (Guaifenesin-Dm 100-10 mg/5 ml) 5 Ml Liquid, 10 ML PO Q6H PRN for COUGH, (Reported) Entered as Reported by: RENNY STEPHENS on 01/05/21927 Last Action: Converted Lisinopril (Lisinopril) 40 Mg Tablet, 20 MG PO DAILY, (Reported) Entered as Reported by: ANNA KOVACS on 10/19/201327 Last Action: Held Discontinued Medications Amlodipine Besylate (Amlodipine Besylate) 5 Mg Tablet, 5 MG PO BID Discontinued Reason: Duplicate Order Prescribed by: PRUDENCE BECK on 10/23/20 1614 Last Action: Discontinued Bupropion HCl (Bupropion HCl Sr) 150 Mg Tablet.er, 150 MG PO BID, (Reported) Discontinued Reason: Duplicate Order Entered as Reported by: ANNA KOVACS on 10/19/20 1328 Last Action: Discontinued Review of Systems Review of Systems Constitutional: dizziness, malaise, weakness Respiratory: no symptoms reported Cardiovascular: no symptoms reported Gastrointestinal: no symptoms reported Psychiatric/Neurological: Denies Headache Past Qorefgq-Elcgom-Aadmov Hx Patient Social History Tobacco Use?: Yes Tobacco type used: Cigarettes Smoking Status: Current Everyday Smoker Use of E-Cig and/or Vaping dev: No Substance use?: Yes Substance type: Methamphetamine, Marijuana Alcohol Use?: Yes Pt feels they are or have been: No Immunizations Up To Date Tetanus Booster (TDap): Less than 5yrs Influenza Vaccine Up-to-Date: Yes; Up-to-Date First/Initial COVID19 Vaccinat: Unsure of date of 1 dose Second COVID19 Vaccination Oskar: Unsure of date of 2nd dose Third COVID19 Vaccination Date: Unsure of date of 1 dose COVID19 Vaccine 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: [employer] Seasonal Allergies Seasonal Allergies: No Past Medical History Surgeries: Yes (EYES;C+L SPINE;CARDIAC CATHS-STENTS X3;BILAT CAROTID ENDAR T;FOOT;SKIN CA) Angioplasty, Appendectomy, Cardiac, Coronary Stent, Eye Surgery, Orthopedic, Vascular Surgery Respiratory: Yes COPD Currently Using CPAP: No Currently Using BIPAP: No Cardiac: Yes (CARDIAC CATHS-STENTS X3; BILAT CAROTID ENDARTERECTOMIES;R CAROTID STENT) High Cholesterol, Hypertension Neurological: Yes (stroke Jan 20, 2020-RIGHT SIDE PARALYSI, R sided stent placed; TIA 03/23/20) Stroke Reproductive Disorders: No Sexually Transmitted Disease: No HIV/AIDS: No Genitourinary: No Gastrointestinal: Yes (HEPATITIS C--S/P TREATMENT) Hepatitis Musculoskeletal: Yes (CHRONIC NECK AND BACK PAIN-S/P C-SPINE + L-SPINE SURGERY; L FOOT FX/ORIF) Degenerate Disk Disease, Arthritis, Chronic Back Pain, Fractures Endocrine: No HEENT: Yes (READING GLASSES;EYE SURGERY CHILD) Loss of Vision: Bilateral Hearing Impairment: Hard of Hearing Cancer: Yes Skin Did You Recieve Any Treatments: Yes What Type of Treatment Did You: Surgical Intervention Psychosocial: Yes Anxiety, Violent Behavior, Depression Integumentary: Yes (SKIN CANCER-GETS BLISTERS) Recent Skin Changes Blood Disorders: No Adverse Reaction/Blood Tranf: No Family Medical History Cancer 19 FATHER (SKIN) 19 MOTHER Cancer of colon 19 MOTHER Kidney disease 19 FATHER (PASSED KIDNEY FAILURE) SOCIAL HISTORY: -ETOH--OCCASIONAL USE, HX OF HEAVY USE -DRUGS--DAILY MARIJUANA USE, ALSO METH USE. DENIES IV DRUG USE -SMOKES 2 PPD PAST SURGICAL HISTORY: -LAST CARDIAC CATH DONE HERE IN 2013--PATENT STENTS -CARDIAC CATHS WITH STENTS X 3 -BILATERAL CAROTID ENDARTERECTOMY -RIGHT CAROTID STENT 01/21/20 AT [facility] -RIGHT EYE SURGERY CHILD -CERVICAL SPINE AND LUMBAR SPINE SURGERIES -LEFT FOOT FRACTURE/ ORIF -SKIN CANCER REMOVAL -APPENDECTOMY Physical Exam Vital Signs Vital Signs - First Documented Capillary Refill : Less Than 3 Seconds Height, Weight, BMI Height: 6'1.00" Weight: 195lbs. 0oz. 88.509385mn; 22.43 BMI Method:Actual General Appearance: No Apparent Distress, WD/WN, Other (MILDLY LETHARGIC) Neck: Normal Inspection Respiratory: Normal Breath Sounds, No Accessory Muscle Use, No Respiratory Distress Cardiovascular: Regular Rate, Rhythm, No Murmur Gastrointestinal: Non Tender, Soft Extremity: Non Tender, No Pedal Edema Neurologic/Psychiatric: Alert, rn peritoneal dialysis II-XII Norm as Tested, Other (RIGHT SIDE WEAKNESS/PARALYSIS; ORIENTED TO PERSON, PLACE, AND GROSSLY ORIENTED TO SITUATION) Skin: Normal Color, Warm/Dry Focused Exam Lactate Level 01/04/21 22:45: Lactic Acid Level 1.17 Lactic Acid Level Laboratory Tests Test 01/04/21 22:45 Lactic Acid Level 1.17 MMOL/L (0.50-2.00) Progress/Results/Core Measures Suspected Sepsis Infection Criteria Present: None Sepsis Screen: No Definite Risk SIRS Temperature: Pulse: 62 Respiratory Rate: 20 Laboratory Tests 01/04/21 22:25: White Blood Count 11.6H Blood Pressure 87 /62 Mean: 87 01/04/21 22:45: Lactic Acid Level 1.17 Laboratory Tests 01/04/21 22:25: Creatinine 0.89, INR Comment 1.0, Platelet Count 227, Total Bilirubin 0.8 Results/Orders Lab Results Laboratory Tests Test 01/04/21 22:25 01/04/21 22:30 11/15/21 22:45 01/04/21 23:35 Range/Units White Blood Count 11.6 H 4.3-11.0 10^3/uL Red Blood Count 4.52 4.30-5.52 10^6/uL Hemoglobin 13.7 13.3-17.7 g/dL Hematocrit 42 40-54 % Mean Corpuscular Volume 92 80-99 fL Mean Corpuscular Hemoglobin 30 25-34 pg Mean Corpuscular Hemoglobin Concent 33 32-36 g/dL Red Cell Distribution Width 14.7 H 10.0-14.5 % Platelet Count 227 130-400 10^3/uL Mean Platelet Volume 10.3 9.0-12.2 fL Immature Granulocyte % (Auto) 0 % Neutrophils (%) (Auto) 63 42-75 % Lymphocytes (%) (Auto) 24 12-44 % Monocytes (%) (Auto) 9 0-12 % Eosinophils (%) (Auto) 4 0-10 % Basophils (%) (Auto) 1 0-10 % Neutrophils # (Auto) 7.2 1.8-7.8 10^3/uL Lymphocytes # (Auto) 2.7 1.0-4.0 10^3/uL Monocytes # (Auto) 1.1 H 0.0-1.0 10^3/uL Eosinophils # (Auto) 0.4 H 0.0-0.3 10^3/uL Basophils # (Auto) 0.1 0.0-0.1 10^3/uL Immature Granulocyte # (Auto) 0.0 0.0-0.1 10^3/uL Prothrombin Time 13.0 12.2-14.7 SEC INR Comment 1.0 0.8-1.4 Activated Partial Thromboplast Time 26 24-35 SEC Sodium Level 143 135-145 MMOL/L Potassium Level 3.6 3.6-5.0 MMOL/L Chloride Level 105 98-107 MMOL/L Carbon Dioxide Level 26 21-32 MMOL/L Anion Gap 12 5-14 MMOL/L Blood Urea Nitrogen 22 H 7-18 MG/DL Creatinine 0.89 0.60-1.30 MG/DL Estimat Glomerular Filtration Rate 86 BUN/Creatinine Ratio 25 Glucose Level 57 *L 70-105 MG/DL Calcium Level 9.3 8.5-10.1 MG/DL Corrected Calcium 9.3 8.5-10.1 MG/DL Magnesium Level 2.1 1.6-2.4 MG/DL Total Bilirubin 0.8 0.1-1.0 MG/DL Aspartate Amino Transf (AST/SGOT) 16 5-34 U/L Alanine Aminotransferase (ALT/SGPT) 15 0-55 U/L Alkaline Phosphatase 67 40-136 U/L Total Creatine Kinase 142 30-200 U/L Creatine Kinase MB 3.4 <6.6 NG/ML Troponin I 0.030 H <0.028 NG/ML B-Type Natriuretic Peptide 16.8 <100.0 PG/ML Total Protein 6.8 6.4-8.2 GM/DL Albumin 4.0 3.2-4.5 GM/DL Procalcitonin 0.03 <0.10 NG/ML Influenza Type A (RT-PCR) Not Detected Not Detecte Influenza Type B (RT-PCR) Not Detected Not Detecte SARS-CoV-2 RNA (RT-PCR) Not Detected Not Detecte Lactic Acid Level 1.17 0.50-2.00 MMOL/L Urine Color YELLOW Urine Clarity CLEAR Urine pH 6.0 5-9 Urine Specific [place] 1.025 H 1.016-1.022 Urine Protein TRACE H NEGATIVE Urine Glucose (UA) TRACE H NEGATIVE Urine Ketones NEGATIVE NEGATIVE Urine Nitrite NEGATIVE NEGATIVE Urine Bilirubin 1+ H NEGATIVE Urine Urobilinogen 4.0 < = 1.0 MG/DL Urine Leukocyte Esterase NEGATIVE NEGATIVE Urine RBC (Auto) NEGATIVE NEGATIVE Urine RBC NONE /HPF Urine WBC NONE /HPF Urine Squamous Epithelial Cells 0-2 /HPF Urine Crystals NONE /LPF Urine Bacteria NEGATIVE /HPF Urine Casts PRESENT /LPF Urine Hyaline Casts 2-5 H /LPF Urine Mucus SMALL H /LPF Urine Culture Indicated CULTURE PENDING Test 01/04/21 23:40 Range/Units Glucometer 99 70-110 MG/DL Micro Results Microbiology 01/04/21 Blood Culture - Preliminary, Resulted No growth My Orders Orders - TRISTAN QUICK DO Ed Iv/Invasive Line Start (01/04/21 22:26) Ekg Tracing (01/04/21 22:26) O2 (01/04/21 22:26) Monitor-Rhythm Ecg Trace Only (01/04/21 22:26) BNP (01/04/21 22:26) Cbc With Automated Diff (01/04/21) Comprehensive Metabolic Panel (01/04/21) Creatine Kinase (01/04/21) Creatine Kinase Mb (01/04/21) Lactic Acid Analyzer (01/04/21) Magnesium (01/04/21) Protime With Inr (01/04/21) Partial Thromboplastin Time (01/04/21:) Ua Culture If Indicated (01/04/21) Blood Culture (01/04/21) Influenza A And B By Pcr (01/04/21) Troponin I (01/04/21) Ed Iv/Invasive Line Start (01/04/21) Lactated Ringers (Lr 1000 Ml Iv Solution (01/04/21 22:30) Urine Culture (01/04/21:) Chest 1 View, Ap/Pa Only (01/04/21:) Ed Iv/Invasive Line Start (01/04/21:) Vital Signs Adult Sepsis Patie Q15M (01/04/21:) O2 (01/04/21:) Procalcitonin (Pct) (01/04/21:) Covid 19 Inhouse Test (01/04/21:) D50w (Emergency) Syringe (Dextrose 50% 5 (01/04/21 23:00) Ed Iv/Invasive Line Start (01/04/21 23:07) Lactated Ringers (Lr 1000 Ml Iv Solution (01/04/21 23:15) Accucheck Stat ONCE (01/04/21 23:24) Straight Cath For Spec.-Adult (01/04/21 23:24) Ekg Tracing (01/04/21 23:25) Vital Signs/I&O 01/04/21 01/04/21 22:22 22:22 Temp 36.5 Pulse 68 Resp 20 B/P (MAP) 87/62 (70) Pulse Ox 95 96 O2 Delivery Room Air Room Air Capillary Refill : Less Than 3 Seconds Blood Pressure Mean: 87 Point of Care Testing Finger Stick Blood Glucose: 99 Progress Note : Progress Note NO DETERIORATION IN PT'S CONDITION DURING ER STAY ECG Initial ECG Impression Date: Jan 04, 2021 Initial ECG Impression Time: 22:40 Initial ECG Rate: 60 Initial ECG Rhythm: Normal Sinus EKG : EKG Time: 23:31 Rate: 57 Rhythm: Normal Sinus ECG Comparisson: Unchanged Comment EKG #3 AT 0113, RATE 59, NSR, UNCHANGED Diagnostic Imaging Comments CXR--PER RADIOLOGIST REPORT AT 0006 FINDINGS: Normal heart size and central pulmonary vascularity. No focal pulmonary opacity. No pleural effusion or pneumothorax. No acute osseous findings. IMPRESSION: No acute cardiopulmonary findings. Reviewed: Reviewed by Me Departure Communication (Admissions) 0010--SPOKE WITH DR. BECK, HOSPITALIST FOR [facility], ACCEPTS PT FOR ADMIT. 10--SPOKE WITH DR. ALVAREZ, CAN DRAGGER, FOR CONSULT Impression Primary Impression: Hypotension Additional Impressions: Elevated troponin HX OF CVA WITH RIGHT SIDE WEAKNESS HX OF CAD WITH STENTS Disposition: ADMITTED INPATIENT Condition: Stable Admissions Decision to Admit Reason: Admit from ER (General) Decision to Admit/Date: Jan 05, 2021 Time/Decision to Admit Time: 00:10 Departure-Patient Inst. Referrals: YUMIKO HERNANDEZ MD (PCP) Primary Care Physician TRISTAN QUICK DO Jan 06, 2021 06:46
[2021-01-06] MEDS ORDERED: VITAMIN D3 25 MCG (1,000 UNITS) TABLET PO SCH (09:00)
[2021-01-06] MEDS ORDERED: CLOPIDOGREL 75 MG (PLAVIX) TABLET PO SCH (09:00)
[2021-01-06] MEDS ORDERED: FLUTICASONE NASAL SPRAY (FLONASE) 16 GM BTL NS SCH (09:00)
[2021-01-06] MEDS ORDERED: ASPIRIN E.C. 325 MG (ECOTRIN) TABLET PO SCH (09:00)
[2021-01-06] MEDS ORDERED: CELECOXIB 100 MG (CeleBREX) CAP PO SCH (09:00)
[2021-01-06] MEDS: buPROPion SR 150 MG (WELLBUTRIN SR) TAB PO SCH (09:54)
[2021-01-06] MEDS: ENOXAPARIN 80 MG/0.8 ML (LOVENOX) SYR SC SCH (09:54)
[2021-01-06] MEDS ORDERED: guaiFENesin/DM (ROBITUSSIN DM) 10 ML UDC PO PRN (10:15)
[2021-01-06] MEDS ORDERED: AMLO-250 PO (10:47)
--- NOTE | 2021-01-06 10:47 | Discharge Summary ---
Discharge Summary Hospital Course Was the Problem List Reviewed?: Yes Problems/Dx: (1) Hypotension (2) Elevated troponin Status: Acute (3) Bilateral carotid artery occlusion Status: Acute (4) Right sided weakness Status: Acute (5) CAD (coronary artery disease) (6) CVA (cerebral vascular accident) Status: Acute Hospital Course Date of Admission: Jan 05, 2021 at 00:10 Admission Diagnosis : Family Physician/Provider: Mary Pérez MD Date of Discharge: 01/06/21 Discharge Diagnosis: Hypotension, altered mental status, elevated troponin, previous CVA, current smoker Hospital Course: Hospital course: Pt had an uneventful hospital course, he was admitted for hypotension and altered mental status found to have elevated Troponin, cardiac evaluation ensued and stress test showed no reversible ischemia. Pt was deemed stable for discharge, BP medication was modified and he was ready for discharge. Labs and Pending Lab Test: Laboratory Tests 01/05/21 15:55: Troponin I < 0.028 01/06/21 05:32: White Blood Count 10.9, Red Blood Count 4.18L, Hemoglobin 12.7L, Hematocrit 38L, Mean Corpuscular Volume 91, Mean Corpuscular Hemoglobin 30, Mean Corpuscular Hemoglobin Concent 33, Red Cell Distribution Width 14.6H, Platelet Count 197, Mean Platelet Volume 10.5, Immature Granulocyte % (Auto) 0, Neutrophils (%) (Auto) 68, Lymphocytes (%) (Auto) 20, Monocytes (%) (Auto) 8, Eosinophils (%) (Auto) 4, Basophils (%) (Auto) 1, Neutrophils # (Auto) 7.3, Lymphocytes # (Auto) 2.2, Monocytes # (Auto) 0.8, Eosinophils # (Auto) 0.4H, Basophils # (Auto) 0.1, Immature Granulocyte # (Auto) 0.0, Sodium Level 141, Potassium Level 3.9, Chloride Level 108H, Carbon Dioxide Level 23, Anion Gap 10, Blood Urea Nitrogen 13, Creatinine 0.79, Estimat Glomerular Filtration Rate 99, BUN/Creatinine Ratio 16, Glucose Level 122H, Calcium Level 8.8, Corrected Calcium 9.2, Total Bilirubin 1.0, Aspartate Amino Transf (AST/SGOT) 14, Alanine Aminotransferase (ALT/SGPT) 13, Alkaline Phosphatase 54, Total Protein 5.7L, Albumin 3.5 Microbiology 01/05/21 Blood Culture - Preliminary, Resulted No growth Home Meds Active Reported Guaifenesin-Dm 100-10 mg/5 ml (Guaifenesin/Dextromethorphan) 5 Ml Liquid 10 Ml PO Q6H PRN Tylenol 8 Hour (Acetaminophen) 650 Mg Tablet.er 650 Mg PO Q4H PRN Bupropion HCl Sr (Bupropion HCl) 150 Mg Tablet.er 150 Mg PO BID Amlodipine Besylate 5 Mg Tablet 5 Mg PO BID HOLD FOR SBP <100 OR PULSE <60, NOTIFY PCP IF HELD FOR 3 CONSECUTIVE DAYS Celebrex (Celecoxib) 200 Mg Capsule 200 Mg PO DAILY Voltaren Arthritis Pain (Diclofenac Sodium) 20 Gm Gel..gram. 2 Gm TP Q8H PRN APPLY TO RIGHT SHOULDER/ELBOW/WRIST Lisinopril 40 Mg Tablet 20 Mg PO DAILY TAKES (40MG) TABLET HOLD FOR SBP <100 OR PULSE <60, NOTIFY PCP IF HELD FOR 3 CONSECUTIVE DAYS Fluticasone Propionate 16 Gm [place].susp 2 Sprays NSEACH DAILY Vitamin D3 (Cholecalciferol (Vitamin D3)) 50 Mcg Tablet 50 Mcg PO DAILY Aspirin EC (Aspirin) 325 Mg Tablet.dr 325 Mg PO DAILY Proair Hfa (Albuterol Sulfate) 1 Puff Puff 2 Puff IH Q6H PRN Neurontin (Gabapentin) 300 Mg Capsule 900 Mg PO TID TAKES 3 (300MG) CAPSULES Atorvastatin Calcium 80 Mg Tablet 80 Mg PO HS Plavix (Clopidogrel Bisulfate) 75 Mg Tablet 75 Mg PO DAILY Baclofen 10 Mg Tablet 10 Mg PO Q8H PRN Assessment/Pt Instructions PCP in 1 week Discharge Planning: <30 minutes discharge planning Discharge Instructions Discharge Diet: No Restrictions Activity as Tolerated: Yes Discharge Physical Examination Vital Signs Vital Signs Date Time Temp Pulse Resp B/P (MAP) Pulse Ox O2 Delivery O2 Flow Rate FiO2 01/06/21 09:10 Room Air 01/06/21 09:00 94 01/06/21 08:46 36.4 51 15 173/88 General Appearance: No Apparent Distress, WD/WN, Chronically ill Allergies: Coded Allergies: No Known Drug Allergies (Unverified , 03/13/18) Discharge Summary Date of Admission Jan 05, 2021 at 00:10 Date of Discharge Discharge Date: Jan 06, 2021 Admission Diagnosis Assessment: Hypertension Altered mental status NSTEMI History of CVA with right sided weakness recurrent in type History of meth use hx History of THC use Smoker heavy use Cartoid stenosis CAD HTN COPD Plan: Transfer to cardiac stepdown Cardiology consult Echo Stress test PRUDENCE BECK DO Jan 06, 2021 10:47
--- NOTE | 2021-01-06 11:09 | Progress Note ---
SANDEEP MANN 01/06/21 1109: Progress Note Pt is a 65yoWM who presents in the evening of 01/04/2021 to the ED with complaint of hypotension and light headedness by way of EMS from [facility]. Pt reported feeling light headed for a couple hours and nurse at the half-way took his blood pressure it was 90s systolic. EMS obtained a BP of 121 systolic. On 01/05/2021 this Pt with slightly elevated troponin and Hx of CAD, CVA and COPD was admitted to ICU for cardiac consult and close monitoring. No EKG changes were found and cardiac stress test reveals no significant ischemia or infarction, normal left ventricular size and EF 66%. Later that day Pt was transferred to medical floor for continued recovery and monitoring. 01/06/2021 Pt was DC back to correction. DEBBIE BECK DO 01/07/21 0513: Supervisory-Addendum Brief Verification & Attestation Participated in pt care: history, MDM, physical Personally performed: exam, history, MDM, supervision of care Care discussed with: Medical Student Procedures: n/a Results interpretation: Verified all documentation Verification and Attestation of Medical Student E/M Service A medical student performed and documented this service in my presence. I reviewed and verified all information documented by the medical student and made modifications to such information, when appropriate. I personally performed the physical exam and medical decision making. Debbie Beck, Jan 07, 2021,05:13 SANDEEP MANN Jan 06, 2021 11:09 DEBBIE BECK DO Jan 07, 2021 05:13
--- NOTE | 2021-01-06 14:39 | Cardiology Progress Note ---
Subjective Date Seen by Provider: Jan 06, 2021 Time Seen by Provider: 14:38 Subjective/Events-last exam Patient is laying down in bed, feeling better. No new complaint Review of Systems General: No Chills, No Night Sweats; Fatigue, Malaise; No Appetite, No Other HEENT: No Head Aches, No Visual Changes, No Eye Pain, No Ear Pain, No Dysphasia, No Sinus Congestion, No Post Nasal Drip, No Sore Throat, No Other Pulmonary: No Dyspnea, No Cough, No Pleuritic Chest Pain, No Other Cardiovascular: No: Chest Pain, Palpitations, Orthopnea, Paroxysmal Noc. Dyspnea, Edema, Lt Headedness, Other Focused Exam Lactate Level 01/04/21 22:45: Lactic Acid Level 1.17 Objective-Cardiology Exam Last Set of Vital Signs Vital Signs 01/06/21 01/06/21 12:00 12:26 Temp 36.2 Pulse 58 Resp 16 B/P (MAP) 148/74 Pulse Ox 95 O2 Delivery Room Air I&O Intake and Output 01/06/21 00:00 Intake Total 1240 ml Output Total 1950 ml Balance -710 ml Intake Oral 240 ml IV Total 1000 ml Output Urine Total 1950 ml # Bowel Movements 1 Daily Weight Change No General: Alert, Oriented X3, Cooperative HEENT: Atraumatic, PERRLA Neck: Supple, No JVD, No Thyromegaly Lungs: Clear to Auscultation, Normal Air Movement Heart: Regular Rate, Normal S1, Normal S2, No Murmurs Abdomen: Normal Bowel Sounds, Soft, No Tenderness, No Hepatosplenomegaly, No Masses Extremities: No Clubbing, No Cyanosis, No Edema, Normal Pulses, No Tenderness/Swelling Skin: No Rashes, No Breakdown, No Significant Lesion Neuro: Normal Gait, Normal Speech, Strength at 5/5 X4 Ext, Normal Tone, Sensation Intact Psych/Mental Status: Mental Status NL, Mood NL Results Lab Laboratory Tests 01/06/21 05:32 A/P-Cardiology Admission Diagnosis Coronary artery disease Hypertension Hyperlipidemia Tobaccoism Assessment/Plan Coronary artery disease, multiple intervention in the past, had last intervention was done in 2013, no recent cardiac follow-up, was [facility]. Had mild elevation in troponin, EKG did not show any acute abnormality. Lexiscan stress test showed no significant ischemia or infarction Possible discharge this afternoon Hypertension, reporting episodes of hypotension at home. Blood pressure is better controlled. Hyperlipidemia, monitor lipids Tobaccoism, educated on smoking cessation. History of CVA in October 2020. Recovered. Continue to monitor History of substance abuse, tested positive for THC in the past, no drug screen was done on this admission DEMETRIO ALVARZE MD Jan 06, 2021 14:39
--- NOTE | 2021-01-11 15:29 | Physician Query Clarification ---
PQ-Further Specificity Admission/Discharge Admission Date: Jan 05, 2021 at 00:10 Discharge Date: Jan 06, 2021 at 17:00 Dr. Pereira, The medical record reflects the following clinical scenario: History/Risk Factors: hypotension, AMS, CAD, hx CVA w/rt hemiparesis, COPD Clinical Findings: BP 87/62, stress test showed no reversible ischemia Treatment: IVF, modified blood pressure meds Question: Can you further specify the type of hypotension per the clinical indicators above? Please document a response in the Progress Notes or Discharge Summary. 1. hypotension d/t blood pressure meds 2. hypotension undetermined etiology 3. Other, with explanation of the clinical findings. 4. Clinically undetermined, no explanation for the clinical findings. PHYSICIAN RESPONSE Can you specify per above: 1 Please remember a lack of response to the above will prompt a phone page by CDI/Coding staff. In responding to this query, please exercise your independent professional judgment. The purpose of this communication is to more accurately reflect the complexity of your patients condition. The fact that a question is asked does not imply that any particular answer is desired or expected. Thank you for your timely response to this clarification. Requestors name: Santi THIS PHYSICIAN QUERY FORM IS A PERMANENT PART OF THE MEDICAL RECORD SANTI ALANIS Jan 11, 2021 15:29 PRUDENCE PEREIRA DO Jan 11, 2021 20:32
== END 2021-01-06 17:00 | DRG 312 ==
LOC: EDUNIT# 22:20 → ER 22:21 → ICU 01-05 00:10 → CSD 01-05 22:17 → 4TH 01-06 06:30
PROVIDERS: ADMIT Internal Medicine; ATTEND Internal Medicine
DX: I95.2 Hypotension due to drugs (principal); I69.351 Hemiplegia and hemiparesis following cerebral infarction affecting right dominant side; R77.8 Other specified abnormalities of plasma proteins; I65.23 Occlusion and stenosis of bilateral carotid arteries; I25.10 Atherosclerotic heart disease of native coronary artery without angina pectoris; J44.9 Chronic obstructive pulmonary disease, unspecified; E78.5 Hyperlipidemia, unspecified; E78.00 Pure hypercholesterolemia, unspecified; Z20.822 Contact with and (suspected) exposure to COVID-19; I10 Essential (primary) hypertension; F17.210 Nicotine dependence, cigarettes, uncomplicated; H54.7 Unspecified visual loss; M19.91 Primary osteoarthritis, unspecified site; F41.9 Anxiety disorder, unspecified; F32.A Depression, unspecified; F15.90 Other stimulant use, unspecified, uncomplicated; F12.90 Cannabis use, unspecified, uncomplicated; Z95.5 Presence of coronary angioplasty implant and graft; Z79.82 Long term (current) use of aspirin; R41.82 Altered mental status, unspecified; T46.5X5A Adverse effect of other antihypertensive drugs, initial encounter
CPT/HCPCS: 36415; 71045; 78452; 80048; 80053; 80061; 81000; 82550; 82553; 82947; 83605; 83735; 83880; 84145; 84484; 85025; 85610; 85730; 87040; 87088; 87636; 93005; 93017; 93041; 93306

== ENCOUNTER 2021-04-01 15:54 | Inpatient (IN) | payer OTHER ==
[~2021-04-01] VITALS: Ht 187 cm; Wt 83.1 kg
[~2021-04-01 15:54] MED LIST changes: +ACET-2840 PO; +CELE200C PO; +DICL20GE TP; +GUAI5LIQ11 PO; +INDO75CA10 PO; -INDO75CA3 PO
--- NOTE | 2021-04-01 16:09 | ED General ---
General Stated Complaint: FALL Source of Information: Patient Exam Limitations: No Limitations History of Present Illness Date Seen by Provider: Apr 01, 2021 Time Seen by Provider: 16:08 Initial Comments To ER by EMS from home with reports of a fall today and subsequent right-sided scalp abrasion and head injury. Daughter May called to report that he has been falling a lot and increasingly confused and lethargic over the course of the past 2 to 3 days. Extensive past medical history including CVA with right- sided hemiparesis, COPD, CAD, peripheral vascular disease, methamphetamine use. He states his most recent methamphetamine use was about 6 months ago. He continues to smoke about 1/2 pack of cigarettes per day. Denies any cough or shortness of breath but has had two pfizer AdMoment vaccines. Was seen at [facility] within the past 1 to 2 weeks for a fall he has had chest wall pain with difficulty coughing with left hip pain. States that he had x-rays done nothing was found and was given prescription for hydrocodone. He has also had chest wall pain worsened by coughing since then. Timing/Duration: 1-2 Days Severity: Moderate Associated Systoms: Denies Symptoms Allergies and Home Medications Allergies Coded Allergies: No Known Drug Allergies (Unverified , 03/13/18) Patient Home Medication List Home Medication List Reviewed: Yes Acetaminophen (Tylenol 8 Hour) 650 Mg Tablet.er, 650 MG PO Q4H PRN for PAIN-MILD (1-4), (Reported) Entered as Reported by: RENNY STEPHENS on 01/05/21 0928 Albuterol Sulfate (Proair Hfa) 1 Puff Puff, 2 PUFF IH Q6H PRN for SHORTNESS OF BREATH, (Reported) Entered as Reported by: ANNA KOVACS on 10/19/20 1328 Amlodipine Besylate (Amlodipine Besylate) 5 Mg Tablet, 2.5 MG PO DAILY Prescribed by: PRUDENCE BECK on 01/06/21 1047 Aspirin (Aspirin EC) 325 Mg Tablet.dr 325 MG PO DAILY, (Reported) Entered as Reported by: ANNA KOVACS on 10/19/20 1328 Atorvastatin Calcium (Atorvastatin Calcium) 80 Mg Tablet, 80 MG PO HS, (Reported) Entered as Reported by: RENNY STEPHENS on 04/28/20 1607 Baclofen (Baclofen) 10 Mg Tablet, 10 MG PO Q8H PRN for MUSCLE SPASMS, (Reported) Entered as Reported by: LEYLA ESPINOZA on 03/13/18 135 Bupropion HCl (Bupropion HCl Sr) 150 Mg Tablet.er, 150 MG PO BID, (Reported) Entered as Reported by: RENNY STEPHENS on 01/05/21927 Celecoxib (Celebrex) 200 Mg Capsule, 200 MG PO DAILY, (Reported) Entered as Reported by: RENNY STEPHENS on 01/05/21927 Cholecalciferol (Vitamin D3) (Vitamin D3) 50 Mcg Tablet, 50 MCG PO DAILY, (Reported) Entered as Reported by: ANNA KOVACS on 10/19/201327 Clopidogrel Bisulfate (Plavix) 75 Mg Tablet, 75 MG PO DAILY, (Reported) Entered as Reported by: LEYLA ESPINOZA on 03/13/18 135 Diclofenac Sodium (Voltaren Arthritis Pain) 20 Gm Gel..gram., 2 GM TP Q8H PRN for PAIN-BREAKTHROUGH, (Reported) Entered as Reported by: RENNY STEPHENS on 01/05/21927 Fluticasone Propionate (Fluticasone Propionate) 16 Gm [place].susp, 2 SPRAYS NSEACH DAILY, (Reported) Entered as Reported by: ANNA KOVACS on 10/19/201327 Gabapentin (Neurontin) 300 Mg Capsule, 900 MG PO TID, (Reported) Entered as Reported by: ANNA KOVACS on 10/19/201327 Guaifenesin/Dextromethorphan (Guaifenesin-Dm 100-10 mg/5 ml) 5 Ml Liquid, 10 ML PO Q6H PRN for COUGH, (Reported) Entered as Reported by: RENNY STEPHENS on 01/05/21927 Lisinopril (Lisinopril) 40 Mg Tablet, 20 MG PO DAILY, (Reported) Entered as Reported by: ANNA KOVACS on 10/19/201327 Review of Systems Review of Systems Constitutional: see HPI EENTM: see HPI Respiratory: no symptoms reported Cardiovascular: no symptoms reported Genitourinary: no symptoms reported Musculoskeletal: no symptoms reported Skin: no symptoms reported Psychiatric/Neurological: No Symptoms Reported Hematologic/Lymphatic: No Symptoms Reported Immunological/Allergic: no symptoms reported Past Vsfcsit-Qkpswz-Yeqrgo Hx Immunizations Up To Date Tetanus Booster (TDap): Less than 5yrs First/Initial COVID19 Vaccinat: Unsure of date of 1 dose Second COVID19 Vaccination Oskar: Unsure of date of 2nd dose Third COVID19 Vaccination Date: Unsure of date of 1 dose Seasonal Allergies Seasonal Allergies: No Past Medical History Surgeries: Yes (EYES;C+L SPINE;CARDIAC CATHS-STENTS X3;BILAT CAROTID ENDART;FOOT;SKIN CA) Angioplasty, Appendectomy, Cardiac, Coronary Stent, Eye Surgery, Orthopedic, Vascular Surgery Respiratory: Yes COPD Currently Using CPAP: No Currently Using BIPAP: No Cardiac: Yes (CARDIAC CATHS-STENTS X3; BILAT CAROTID ENDARTERECTOMIES;R CAROTID STENT) High Cholesterol, Hypertension Neurological: Yes (stroke Jan 20, 2020-RIGHT SIDE PARALYSI, R sided stent placed; TIA 03/23/20) Stroke Reproductive Disorders: No Sexually Transmitted Disease: No HIV/AIDS: No Genitourinary: No Gastrointestinal: Yes (HEPATITIS C--S/P TREATMENT) Hepatitis Musculoskeletal: Yes (CHRONIC NECK AND BACK PAIN-S/P C-SPINE + L-SPINE SURGERY; L FOOT FX/ORIF) Degenerate Disk Disease, Arthritis, Chronic Back Pain, Fractures Endocrine: No HEENT: Yes (READING GLASSES;EYE SURGERY CHILD) Loss of Vision: Bilateral Hearing Impairment: Hard of Hearing Cancer: Yes Skin Did You Recieve Any Treatments: Yes What Type of Treatment Did You: Surgical Intervention Psychosocial: Yes Anxiety, Violent Behavior, Depression Integumentary: Yes (SKIN CANCER-GETS BLISTERS) Recent Skin Changes Blood Disorders: No Adverse Reaction/Blood Tranf: No Family Medical History Cancer 19 FATHER (SKIN) 19 MOTHER Cancer of colon 19 MOTHER Kidney disease 19 FATHER (PASSED KIDNEY FAILURE) SOCIAL HISTORY: -ETOH--OCCASIONAL USE, HX OF HEAVY USE -DRUGS--DAILY MARIJUANA USE, ALSO METH USE. DENIES IV DRUG USE -SMOKES 2 PPD PAST SURGICAL HISTORY: -LAST CARDIAC CATH DONE HERE IN 2013--PATENT STENTS -CARDIAC CATHS WITH STENTS X 3 -BILATERAL CAROTID ENDARTERECTOMY -RIGHT CAROTID STENT 01/21/20 AT -RIGHT EYE SURGERY CHILD -CERVICAL SPINE AND LUMBAR SPINE SURGERIES -LEFT FOOT FRACTURE/ ORIF -SKIN CANCER REMOVAL -APPENDECTOMY Physical Exam Vital Signs Vital Signs - First Documented 04/01/21 15:55 Temp 37.0 Pulse 72 Resp 16 B/P (MAP) 118/81 (93) Pulse Ox 96 O2 Delivery Room Air O2 Flow Rate 2.00 Capillary Refill : Height, Weight, BMI Height: 6'1.00" Weight: 195lbs. 0oz. 88.813941tz; 22.43 BMI Method:Actual General Appearance: No Apparent Distress, WD/WN, Chronically ill (Appears much older than stated age and chronically ill. Oxygen 89% on room air. Lung sounds diminished with rhonchi. Pupils are pinpoint. Arousable to verbal stimuli and answers questions appropriately.) Neck: Full Range of Motion, Normal Inspection Respiratory: No Accessory Muscle Use, No Respiratory Distress Cardiovascular: Regular Rate, Rhythm, Normal Peripheral Pulses Gastrointestinal: Normal Bowel Sounds, Non Tender, Soft Extremity: Other (Right-sided hemiparesis) Neurologic/Psychiatric: Alert, Oriented x3 Skin: Normal Color, Warm/Dry Focused Exam Lactate Level 04/01/21 16:36: Lactic Acid Level 1.29 Lactic Acid Level Laboratory Tests Test 04/01/21 16:36 Lactic Acid Level 1.29 MMOL/L (0.50-2.00) Progress/Results/Core Measures Suspected Sepsis SIRS Temperature: Pulse: Respiratory Rate: Laboratory Tests 04/01/21 16:15: White Blood Count 20.4H Blood Pressure / Mean: 04/01/21 16:36: Lactic Acid Level 1.29 Laboratory Tests 04/01/21 16:15: Creatinine 3.26H, INR Comment 1.0, Platelet Count 191, Total Bilirubin 1.5H 04/01/21 18:48: Creatinine 2.77#H Results/Orders Lab Results Laboratory Tests Test 04/01/21 16:15 04/01/21 16:21 04/01/21 16:36 04/01/21 16:41 Range/Units White Blood Count 20.4 H 4.3-11.0 10^3/uL Red Blood Count 5.12 4.30-5.52 10^6/uL Hemoglobin 15.6 13.3-17.7 g/dL Hematocrit 48 40-54 % Mean Corpuscular Volume 93 80-99 fL Mean Corpuscular Hemoglobin 31 25-34 pg Mean Corpuscular Hemoglobin Concent 33 32-36 g/dL Red Cell Distribution Width 13.8 10.0-14.5 % Platelet Count 191 130-400 10^3/uL Mean Platelet Volume 11.3 9.0-12.2 fL Immature Granulocyte % (Auto) 0 % Neutrophils (%) (Auto) 83 H 42-75 % Lymphocytes (%) (Auto) 7 L 12-44 % Monocytes (%) (Auto) 9 0-12 % Eosinophils (%) (Auto) 0 0-10 % Basophils (%) (Auto) 0 0-10 % Neutrophils # (Auto) 16.9 H 1.8-7.8 10^3/uL Lymphocytes # (Auto) 1.5 1.0-4.0 10^3/uL Monocytes # (Auto) 1.9 H 0.0-1.0 10^3/uL Eosinophils # (Auto) 0.0 0.0-0.3 10^3/uL Basophils # (Auto) 0.1 0.0-0.1 10^3/uL Immature Granulocyte # (Auto) 0.1 0.0-0.1 10^3/uL Neutrophils % (Manual) 81 % Lymphocytes % (Manual) 8 % Monocytes % (Manual) 11 % Blood Morphology Comment NORMAL Prothrombin Time 13.2 12.2-14.7 SEC INR Comment 1.0 0.8-1.4 Activated Partial Thromboplast Time 27 24-35 SEC Sodium Level 141 135-145 MMOL/L Potassium Level 4.1 3.6-5.0 MMOL/L Chloride Level 101 98-107 MMOL/L Carbon Dioxide Level 24 21-32 MMOL/L Anion Gap 16 H 5-14 MMOL/L Blood Urea Nitrogen 44 H 7-18 MG/DL Creatinine 3.26 H 0.60-1.30 MG/DL Estimat Glomerular Filtration Rate 20 BUN/Creatinine Ratio 13 Glucose Level 116 H 70-105 MG/DL Calcium Level 10.2 H 8.5-10.1 MG/DL Corrected Calcium 8.5-10.1 MG/DL Total Bilirubin 1.5 H 0.1-1.0 MG/DL Aspartate Amino Transf (AST/SGOT) 23 5-34 U/L Alanine Aminotransferase (ALT/SGPT) 14 0-55 U/L Alkaline Phosphatase 78 40-136 U/L B-Type Natriuretic Peptide 20.5 <100.0 PG/ML Total Protein 8.6 H 6.4-8.2 GM/DL Albumin 4.8 H 3.2-4.5 GM/DL Serum Alcohol < 10 <10 MG/DL Blood Gas Puncture Site LRAD Blood Gas Patient Temperature 37 Arterial Blood pH 7.30 *L 7.37-7.43 Arterial Blood Partial Pressure CO2 57 H 35-45 MMHG Arterial Blood Partial Pressure O2 23 *L 79-93 MMHG Arterial Blood HCO3 28 H 23-27 MMOL/L Arterial Blood Total CO2 29.4 21.0-31.0 MMOL/L Arterial Blood Oxygen Saturation 20 L 94-100 % Arterial Blood Base Excess 1.9 -2.5-2.5 MMOL/L David Test POS Blood Gas Ventilator Setting NO Blood Gas Inspired Oxygen 91% Lactic Acid Level 1.29 0.50-2.00 MMOL/L Procalcitonin 0.25 H <0.10 NG/ML Test 04/01/21 18:48 04/01/21 19:38 Range/Units Sodium Level 139 135-145 MMOL/L Potassium Level 4.0 3.6-5.0 MMOL/L Chloride Level 105 98-107 MMOL/L Carbon Dioxide Level 21 21-32 MMOL/L Anion Gap 13 5-14 MMOL/L Blood Urea Nitrogen 43 H 7-18 MG/DL Creatinine 2.77 #H 0.60-1.30 MG/DL Estimat Glomerular Filtration Rate 25 BUN/Creatinine Ratio 16 Glucose Level 110 H 70-105 MG/DL Calcium Level 9.2 8.5-10.1 MG/DL Blood Gas Puncture Site RGHT RAD Blood Gas Patient Temperature 37.4 Arterial Blood pH 7.37 7.37-7.43 Arterial Blood Partial Pressure CO2 46 H 35-45 MMHG Arterial Blood Partial Pressure O2 81 79-93 MMHG Arterial Blood HCO3 26 23-27 MMOL/L Arterial Blood Total CO2 27.1 21.0-31.0 MMOL/L Arterial Blood Oxygen Saturation 96 94-100 % Arterial Blood Base Excess 1.0 -2.5-2.5 MMOL/L David Test POS Blood Gas Ventilator Setting NO Blood Gas Inspired Oxygen 2L My Orders Orders - SONIA CRISTOBAL APRN Cbc With Automated Diff (04/01/21 16:06) Comprehensive Metabolic Panel (04/01/21 16:06) Blood Culture (04/01/21 16:06) Sputum Culture (04/01/21 16:06) Urinalysis (04/01/21 16:06) Urine Culture (04/01/21 16:06) Protime With Inr (04/01/21 16:06) Partial Thromboplastin Time (04/01/21 16:06) Chest 1 View, Ap/Pa Only (04/01/21 16:06) Ed Iv/Invasive Line Start (04/01/21 16:06) Ed Iv/Invasive Line Start (04/01/21 16:06) Vital Signs Adult Sepsis Patie Q15M (04/01/21 16:06) O2 (04/01/21 16:06) Remove Rings In Anticipation O (04/01/21 16:06) Lactic Acid Analyzer (04/01/21 16:06) Arterial Blood Gas (04/01/21 16:06) Bnp Chip (04/01/21 16:06) Drug Screen Stat (Urine) (04/01/21 16:06) Alcohol (04/01/21 16:06) Pelvis With Left Hip 2-3 Views (04/01/21 16:06) Ct Head/Cervical Spine Wo (04/01/21 16:06) Manual Differential (04/01/21 16:15) Lactated Ringers (Lr 1000 Ml Iv Solution (04/01/21 17:00) Lactated Ringers (Lr 1000 Ml Iv Solution (04/01/21 17:15) Procalcitonin (Pct) (04/01/21 17:27) Ct Abdomen/Pelvis Wo (04/01/21 17:48) Basic Metabolic Panel (04/01/21 18:35) Cefepime Injection (Maxipime Injection) (04/01/21 19:30) Methylprednisolone Sod Succ (Solu-Medrol (04/01/21 19:30) Arterial Blood Gas (04/01/21 19:30) Ed Admission (Communication) (04/01/21 20:19) Vital Signs/I&O 04/01/21 15:55 Temp 37.0 Pulse 72 Resp 16 B/P (MAP) 118/81 (93) Pulse Ox 96 O2 Delivery Room Air O2 Flow Rate 2.00 Capillary Refill : Progress Note : Progress Note NAME: CRISTI KRISHNAMURTHY MED REC#: [id number] PT STATUS: REG ER : 1955 PHYSICIAN: SONIA CRISTOBAL APRN ADMIT DATE: 04/01/21/ER Draft Date of Exam:04/01/21 CHEST 1 VIEW, AP/PA ONLY INDICATION: Multiple falls. Right-sided paralysis. Weakness. EXAMINATION: Chest, 04/01/2021. COMPARISON: 03/06/2020. FINDINGS: 2 views of the chest. There is linear bibasilar atelectasis. There are no effusions or pneumothorax. The heart is prominent. Pulmonary vasculature unremarkable. There are somewhat prominent loops of large and/or small bowel in the visualized abdomen correlate for any abdominal symptoms. No free air appreciated. IMPRESSION: 1. Bibasal atelectasis. 2. Prominent loops of bowel in visualized upper abdomen. Dictated on workstation # [id number] Dict: 04/01/211728 Trans: 04/01/211733 [facility] [id number] Interpreted by: SAMANTHA PEREZ MD Electronically signed by: Departure Communication (Admissions) 1915-resting in bed quietly. Hemodynamically stable with a blood pressure of 118/81. Still has not yet produced urine. His initial creatinine was quite high. Back in December 2020 he had a normal creatinine of 0.79. This seems to be an acute issue. I have given him 2 L of LR here in the emergency room and we are awaiting a repeat basic metabolic at this time. If his kidney function improves we can attribute this to a prerenal acute kidney injury and will admit to Dr. Beck. If it is the same or worsening this may require transfer to nephrology. NAME: CRISTI KRISHNAMURTHY [facility] REC#: [id number] PT STATUS: REG ER : 1955 PHYSICIAN: SONIA CRISTOBAL PET WALKER ADMIT DATE: 04/01/21/ER Signed Date of Exam:04/01/21 CT ABDOMEN/PELVIS WO INDICATION: Fall, abdominal pain. EXAMINATION: CT abdomen and pelvis without contrast, 04/01/2021. All CT scans use one or more of the following dose optimizing techniques: automated exposure control, MA and/or KvP adjustment based on patient size and exam type or iterative reconstruction. COMPARISON: Correlation made to radiographs of the left hip from 04/01/2021 with comparison made to 07/31/2019. FINDINGS: There are bibasilar infiltrates. There are stones in the gallbladder. The nonopacified remaining abdominal viscera is limited due to lack of contrast. No gross acute abnormality appreciated within the liver or spleen. The pancreas appears unremarkable. Adrenal glands unremarkable. There is no nephrolithiasis or hydronephrosis with no ureteral stone appreciated. There is a rounded lesion along the anterior border of the mid left kidney with Hounsfield units greater than expected for a simple cyst. Nonemergent dedicated imaging of the kidney recommended. There is atherosclerotic disease. There is no ascites or free air. There is no inflammatory change about the loops of bowel. Motion artifact does limit evaluation of the loops of bowel. There is a nondisplaced fracture of the posterior left 12th rib. Within the left hip the small density seen adjacent to the femoral head on radiographs is not appreciated on this examination. No obvious fracture is seen. There is degenerative disease in both hips. There is sclerosis at the sacroiliac joints, bilaterally, consistent with a prior history of sacroiliitis. There are degenerative changes and postoperative changes in the visualized lumbar spine with no gross acute abnormality appreciated. IMPRESSION: 1. Cholelithiasis with no evidence for acute cholecystitis by CT standards. 2. Bibasilar infiltrates. 3. Lesion in the left kidney not a simple cyst. See above discussion. 4. Acute appearing left posterior 12th rib fracture with other incidental findings in the osseous structures as above. Dictated by: Dictated on workstation # [id number] Dict: 04/01/211806 Trans: 04/01/211825 [facility] [id number] Interpreted by: SAMANTHA PEREZ MD Electronically signed by: SAMANTHA PEREZ MD 04/01/211825 Family Conversation NAME: CRISTI KRISHNAMURTHY [facility] REC#: [id number] PT STATUS: REG ER : 1955 PHYSICIAN: SONIA CRISTOBAL APRN ADMIT DATE: 04/01/21/ER Draft Date of Exam:04/01/21 PELVIS WITH LEFT HIP 2-3 VIEWS INDICATION: Fall, pain. EXAMINATION: Left hip and pelvis, 04/01/2021. COMPARISON: 07/31/2019. FINDINGS: Linear lucencies along the posterior aspect of the left acetabulum stable from previous imaging consistent with a chronic process. Along the lateral border of the femoral head there is an age indeterminate linear density which could represent a small avulsion fracture versus heterotopic ossification or even loose body. Remaining osseous structures appear unremarkable. The right hip intact. IMPRESSION: Age indeterminate linear density along the lateral border of the left femur see above discussion. Dictated on workstation # [id number] Dict: 04/01/21 173 Trans: 04/01/211741 [facility] [id number] Interpreted by: SAMANTHA PEREZ MD Electronically signed by: NAME: CRISTI KRISHNAMURTHY [facility] REC#: [id number] PT STATUS: REG ER : 1955 PHYSICIAN: SONIA CRISTOBAL APRN ADMIT DATE: 04/01/21/ER Draft Date of Exam:04/01/21 CT HEAD/CERVICAL SPINE WO INDICATION: Fall, laceration to right side. History of stroke in the past. Weakness. EXAMINATION: CT brain and CT cervical spine, 04/01/2021. All CT scans use one or more of the following dose optimizing techniques: automated exposure control, MA and/or KvP adjustment based on patient size and exam type or iterative reconstruction. COMPARISON: 10/18/2020. FINDINGS: CT BRAIN: There is a large area of encephalomalacia within the right posterior parietal lobe extending into the temporal lobe. Other chronic ischemic changes noted within the area of encephalomalacia in the left parietal lobe posteriorly towards the vertex. These findings are chronic. No acute hemorrhage or infarct seen. There is no mass, mass effect or midline shift with no hydrocephalus. The calvarium is intact. The paranasal sinuses and mastoid air cells appear clear. IMPRESSION: Chronic ischemic disease with no acute intracranial process. CT CERVICAL SPINE: There are changes of corpectomy at C5 with anterior fusion from C4 through C6. Alignment is preserved. No significant subluxation is seen. No acute fracture is identified. Multilevel bilateral facet hypertrophy noted. Visualized lung apices clear. Prevertebral soft tissues unremarkable for acute abnormality. Stents noted on the right. IMPRESSION: Multilevel postoperative changes and degenerative disease with no acute osseous abnormality. Dictated on workstation # [id number] Dict: 04/01/211719 Trans: 04/01/211726 [facility] [id number] Interpreted by: SAMANTHA PEREZ MD Electronically signed by: Impression Primary Impression: Dehydration Additional Impression: BRYANT (acute kidney injury) Disposition: ADMITTED INPATIENT Condition: Stable Departure-Patient Inst. Referrals: YUMIKO HERNANDEZ MD (PCP/Family) Primary Care Physician SONIA CRISTOBAL APRN Apr 01, 2021 16:09
[2021-04-01 16:27] LABS: ABG BASE EXCESS 1.9 MMOL/L (-2.5-2.5); ABG OXYGEN SATURATION 20 % (94-100); ABG PCO2 57 MMHG (35-45); ABG TCO2 29.4 MMOL/L (21.0-31.0)
[2021-04-01 16:29] LABS: BASOPHILS # (AUTO) 0.1 10^3/uL (0.0-0.1); BASOPHILS % (AUTO) 0 % (0-10); EOSINOPHILS % (AUTO) 0 % (0-10); HEMATOCRIT 48 % (40-54); HEMOGLOBIN 15.6 g/dL (13.3-17.7); LYMPHOCYTES # (AUTO) 1.5 10^3/uL (1.0-4.0); LYMPHOCYTES % (AUTO) 7 % (12-44); MEAN CORPUSCULAR HEMOGLOBIN 31 pg (25-34); MEAN CORPUSCULAR HGB CONC 33 g/dL (32-36); MEAN CORPUSCULAR VOLUME 93 fL (80-99); MEAN PLATELET VOLUME 11.3 fL (9.0-12.2); MONOCYTES # (AUTO) 1.9 10^3/uL (0.0-1.0); MONOCYTES % (AUTO) 9 % (0-12); NEUTROPHILS # (AUTO) 16.9 10^3/uL (1.8-7.8); NEUTROPHILS % (AUTO) 83 % (42-75); PLATELET COUNT 191 10^3/uL (130-400); WHITE BLOOD COUNT 20.4 10^3/uL (4.3-11.0)
[2021-04-01 16:31] LABS: ABG PO2 23 MMHG (79-93); ALLENS TEST POS; PATIENT TEMP 37; VENTILATOR NO
[2021-04-01 16:33] LABS: ALBUMIN 4.8 GM/DL (3.2-4.5); CHLORIDE 101 MMOL/L (98-107); POTASSIUM 4.1 MMOL/L (3.6-5.0); SODIUM 141 MMOL/L (135-145)
[2021-04-01 16:34] LABS: CALCIUM 10.2 MG/DL (8.5-10.1)
[2021-04-01 16:36] LABS: GLUCOSE 116 MG/DL (70-105); TOTAL PROTEIN 8.6 GM/DL (6.4-8.2)
[2021-04-01 16:37] LABS: BILIRUBIN,TOTAL 1.5 MG/DL (0.1-1.0); CARBON DIOXIDE 24 MMOL/L (21-32)
[2021-04-01 16:39] LABS: ALKALINE PHOSPHATASE 78 U/L (40-136); CREATININE SERUM 3.26 MG/DL (0.60-1.30); GFR ESTIMATED 20
[2021-04-01 16:40] LABS: BUN/CREATININE RATIO 13
[2021-04-01 16:42] LABS: ALANINE AMINOTRANSFERASE 14 U/L (0-55)
[2021-04-01 16:54] LABS: PROTHROMBIN TIME PATIENT 13.2 SEC (12.2-14.7)
[2021-04-01] MEDS ORDERED: LACTATED RINGERS 1,000 ML IV SCH ×2 (17:00→17:15)
[2021-04-01 17:25] LABS: LYMPHOCYTES % (MANUAL) 8 %; MONOCYTES % (MANUAL) 11 %; NEUTROPHILS % (MANUAL) 81 %; RBC MORPH NORMAL
--- NOTE | 2021-04-01 17:29 | Diagnostic Imaging Report ---
INDICATION: Fall, laceration to right side. History of stroke in the past. Weakness. EXAMINATION: CT brain and CT cervical spine, 04/01/2021. All CT scans use one or more of the following dose optimizing techniques: automated exposure control, MA and/or KvP adjustment based on patient size and exam type or iterative reconstruction. COMPARISON: 10/18/2020. FINDINGS: CT BRAIN: There is a large area of encephalomalacia within the right posterior parietal lobe extending into the temporal lobe. Other chronic ischemic changes noted within the area of encephalomalacia in the left parietal lobe posteriorly towards the vertex. These findings are chronic. No acute hemorrhage or infarct seen. There is no mass, mass effect or midline shift with no hydrocephalus. The calvarium is intact. The paranasal sinuses and mastoid air cells appear clear. IMPRESSION: Chronic ischemic disease with no acute intracranial process. CT CERVICAL SPINE: There are changes of corpectomy at C5 with anterior fusion from C4 through C6. Alignment is preserved. No significant subluxation is seen. No acute fracture is identified. Multilevel bilateral facet hypertrophy noted. Visualized lung apices clear. Prevertebral soft tissues unremarkable for acute abnormality. Stents noted on the right. IMPRESSION: Multilevel postoperative changes and degenerative disease with no acute osseous abnormality. Dictated by: Dictated on workstation # [id number]
--- NOTE | 2021-04-01 17:35 | Diagnostic Imaging Report ---
INDICATION: Multiple falls. Right-sided paralysis. Weakness. EXAMINATION: Chest, 04/01/2021. COMPARISON: 03/06/2020. FINDINGS: 2 views of the chest. There is linear bibasilar atelectasis. There are no effusions or pneumothorax. The heart is prominent. Pulmonary vasculature unremarkable. There are somewhat prominent loops of large and/or small bowel in the visualized abdomen correlate for any abdominal symptoms. No free air appreciated. IMPRESSION: 1. Bibasal atelectasis. 2. Prominent loops of bowel in visualized upper abdomen. Dictated by: Dictated on workstation # [id number]
--- NOTE | 2021-04-01 17:42 | Diagnostic Imaging Report ---
INDICATION: Fall, pain. EXAMINATION: Left hip and pelvis, 04/01/2021. COMPARISON: 07/31/2019. FINDINGS: Linear lucencies along the posterior aspect of the left acetabulum stable from previous imaging consistent with a chronic process. Along the lateral border of the femoral head there is an age indeterminate linear density which could represent a small avulsion fracture versus heterotopic ossification or even loose body. Remaining osseous structures appear unremarkable. The right hip intact. IMPRESSION: Age indeterminate linear density along the lateral border of the left femur see above discussion. Dictated by: Dictated on workstation # [id number]
--- NOTE | 2021-04-01 18:17 | Diagnostic Imaging Report ---
INDICATION: Fall, abdominal pain. EXAMINATION: CT abdomen and pelvis without contrast, 04/01/2021. All CT scans use one or more of the following dose optimizing techniques: automated exposure control, MA and/or KvP adjustment based on patient size and exam type or iterative reconstruction. COMPARISON: Correlation made to radiographs of the left hip from 04/01/2021 with comparison made to 07/31/2019. FINDINGS: There are bibasilar infiltrates. There are stones in the gallbladder. The nonopacified remaining abdominal viscera is limited due to lack of contrast. No gross acute abnormality appreciated within the liver or spleen. The pancreas appears unremarkable. Adrenal glands unremarkable. There is no nephrolithiasis or hydronephrosis with no ureteral stone appreciated. There is a rounded lesion along the anterior border of the mid left kidney with Hounsfield units greater than expected for a simple cyst. Nonemergent dedicated imaging of the kidney recommended. There is atherosclerotic disease. There is no ascites or free air. There is no inflammatory change about the loops of bowel. Motion artifact does limit evaluation of the loops of bowel. There is a nondisplaced fracture of the posterior left 12th rib. Within the left hip the small density seen adjacent to the femoral head on radiographs is not appreciated on this examination. No obvious fracture is seen. There is degenerative disease in both hips. There is sclerosis at the sacroiliac joints, bilaterally, consistent with a prior history of sacroiliitis. There are degenerative changes and postoperative changes in the visualized lumbar spine with no gross acute abnormality appreciated. IMPRESSION: 1. Cholelithiasis with no evidence for acute cholecystitis by CT standards. 2. Bibasilar infiltrates. 3. Lesion in the left kidney not a simple cyst. See above discussion. 4. Acute appearing left posterior 12th rib fracture with other incidental findings in the osseous structures as above. Dictated by: Dictated on workstation # [id number]
[2021-04-01 19:26] LABS: CALCIUM 9.2 MG/DL (8.5-10.1); CREATININE SERUM 2.77 MG/DL (0.60-1.30)
[2021-04-01] MEDS ORDERED: CEFEPIME INJECTION 1,000 MG in NS (IVPB) 50 ML IV ONE (19:30)
[2021-04-01] MEDS ORDERED: methylPREDNISolone 125 MG (Solu-MEDROL) VIAL IVP ONE (19:30)
[2021-04-01 19:47] LABS: ABG OXYGEN SATURATION 96 % (94-100); ABG PCO2 46 MMHG (35-45); ABG PH 7.37 (7.37-7.43); ABG PO2 81 MMHG (79-93); ABG TCO2 27.1 MMOL/L (21.0-31.0); ALLENS TEST POS; INSPIRED O2 2L; PATIENT TEMP 37.4; VENTILATOR NO
[2021-04-01 21:30] VITALS: BP 172/83
[2021-04-01] MEDS ORDERED: LORazepam INJ 2 MG/ML (ATIVAN) VIAL IV PRN (21:30)
[2021-04-01] MEDS ORDERED: diphenhydrAMINE 50 MG/ML INJ (BENADRYL) IVP PRN (21:30)
[2021-04-01] MEDS ORDERED: ONDANSETRON 4 MG/2 ML (SDV) Z0FRAN IV PRN (21:30)
[2021-04-01] MEDS ORDERED: diphenhydrAMINE 25 MG TAB (BENADRYL) PO PRN (21:30)
[2021-04-01] MEDS ORDERED: ANTACID SUSP 30 ML UDC (MYLANTA) PO PRN (21:30)
[2021-04-01] MEDS ORDERED: D5 1/2 NS 1000 ML IV SOLUTION 1,000 ML IV PRN (21:30)
[2021-04-01] MEDS ORDERED: ACETAMINOPHEN 325 MG TABLET PO PRN (21:30)
[2021-04-01] MEDS ORDERED: BISACODYL 10 MG SUPP (DULCOLAX) PR PRN (21:30)
[2021-04-01] MEDS ORDERED: LORazepam 1 MG (ATIVAN) TAB PO PRN (21:30)
[2021-04-01] MEDS ORDERED: LACTULOSE SYRUP 10GM/15ML (ENULOSE) 30ML UDC PO PRN (21:30)
[2021-04-01] MEDS ORDERED: MELATONIN 3 MG TABLET PO PRN (21:30)
[2021-04-01] MEDS ORDERED: MILK OF MAGNESIA 400 MG/5 ML 30 ML UDC PO PRN (21:30)
[2021-04-01] MEDS ORDERED: NALOXONE 0.4 MG/ML 1 ML (NARCAN) VIAL IV PRN (21:30)
[2021-04-01] MEDS ORDERED: polyethylene glycoL POWDER 17 GM (MIRALAX) PACK PO PRN (21:30)
[2021-04-01] MEDS ORDERED: 1/2 NS IV SOLUTION 1,000 ML IV PRN (21:30)
[2021-04-01] MEDS ORDERED: ONDANSETRON 4 MG (ZOFRAN) ORAL DISSOLVE TAB PO PRN (21:30)
[2021-04-01] MEDS ORDERED: LORazepam INJ 2 MG/ML (ATIVAN) VIAL IM/IV PRN (21:30)
[2021-04-01] MEDS ORDERED: CALCIUM CARBONATE 500 MG (TUMS) TAB.CHEW PO PRN (21:30)
[2021-04-01] MEDS ORDERED: NS IV 1000 ML 1,000 ML ONE (21:41)
[2021-04-01] MEDS ORDERED: methylPREDNISolone 125 MG (Solu-MEDROL) VIAL ONE (21:41)
[2021-04-01 21:43] VITALS: BP 118/81
[2021-04-01] MEDS ORDERED: RT-ALBUTEROL SULF 2.5 MG/3 ML PRE-MIX VIAL INH PRN (21:45)
[2021-04-01] MEDS: NS IV 1000 ML 1,000 ML IV SCH (21:48)
[2021-04-01 22:35] LABS: BILIRUBIN,URINE NEGATIVE (NEGATIVE); CLARITY,URINE CLEAR; COLOR,URINE YELLOW; GLUCOSE, URINE (UA) NEGATIVE (NEGATIVE); KETONES,URINE NEGATIVE (NEGATIVE); LEUKOCYTE ESTERASE ,URINE NEGATIVE (NEGATIVE); NITRITE,URINE NEGATIVE (NEGATIVE); PH,URINE 5.5 (5-9); PROTEIN,URINE TRACE (NEGATIVE)
[2021-04-01 22:46] LABS: RBC,URINE 0-2 /HPF
[2021-04-01 22:47] LABS: BACTERIA,URINE MODERATE /HPF; GRANULAR CASTS,URINE RARE /LPF
[2021-04-01] MEDS: BACLOFEN 10 MG (LIORESAL) TAB PO PRN (22:47)
[2021-04-01] MEDS: DOXYCYCLINE INJECTION 100 MG in NS (IVPB) 100 ML IV SCH (22:47)
[2021-04-01 22:48] LABS: AMPHETAMINE SCREEN, URINE NEGATIVE (NEGATIVE); BARBITURATE SCREEN URINE NEGATIVE (NEGATIVE); BENZODIAZEPINES SCREEN URINE NEGATIVE (NEGATIVE); CANNABINOID SCREEN, URINE POSITIVE (NEGATIVE); COCAINE SCREEN URINE NEGATIVE (NEGATIVE); METHADONE STAT NEGATIVE (NEGATIVE); METHAMPHETAMINE SCREEN URINE S NEGATIVE (NEGATIVE); OPIATE SCREEN URINE NEGATIVE (NEGATIVE); OXYCODONE STAT POSITIVE (NEGATIVE); PROPOXYPHENE STAT NEGATIVE (NEGATIVE); TRICYCLIC ANTIDEPRESSANTS SCRE NEGATIVE (NEGATIVE)
[2021-04-02] VITALS: BP 169/72
[2021-04-02 04:11] VITALS: BP 135/65
[2021-04-02 05:11] LABS: BASOPHILS % (AUTO) 0 % (0-10); EOSINOPHILS % (AUTO) 0 % (0-10); HEMATOCRIT 37 % (40-54); HEMOGLOBIN 12.1 g/dL (13.3-17.7); LYMPHOCYTES # (AUTO) 0.7 10^3/uL (1.0-4.0); LYMPHOCYTES % (AUTO) 6 % (12-44); MEAN CORPUSCULAR HEMOGLOBIN 30 pg (25-34); MEAN CORPUSCULAR HGB CONC 33 g/dL (32-36); MEAN CORPUSCULAR VOLUME 92 fL (80-99); MEAN PLATELET VOLUME 11.2 fL (9.0-12.2); MONOCYTES # (AUTO) 0.2 10^3/uL (0.0-1.0); MONOCYTES % (AUTO) 1 % (0-12); NEUTROPHILS # (AUTO) 11.1 10^3/uL (1.8-7.8); NEUTROPHILS % (AUTO) 92 % (42-75); PLATELET COUNT 152 10^3/uL (130-400)
[2021-04-02 05:18] LABS: ALBUMIN 3.4 GM/DL (3.2-4.5)
[2021-04-02 05:19] LABS: POTASSIUM 4.1 MMOL/L (3.6-5.0)
[2021-04-02 05:20] LABS: CALCIUM 9.1 MG/DL (8.5-10.1)
[2021-04-02 05:23] LABS: BILIRUBIN,TOTAL 1.1 MG/DL (0.1-1.0)
[2021-04-02 05:25] LABS: CREATININE SERUM 1.58 MG/DL (0.60-1.30)
[2021-04-02] MEDS: HYDROmorphone 2 MG/ML VIAL (DILAUDID) IVP PRN (05:26)
[2021-04-02] MEDS: inSUlin ASPART (NovoLOG) 1 UNIT/0.01 ML (CHARGE PER UNIT) SC SCH ×2 (05:44→12:16)
[2021-04-02] MEDS: THIAMINE 100 MG (VITAMIN B-1) TAB PO SCH (05:50)
[2021-04-02] MEDS: MULTIVIT W/MINERALS TAB (THERAGRAN M) PO SCH (05:50)
[2021-04-02] MEDS: methylPREDNISolone 125 MG (Solu-MEDROL) VIAL IVP SCH ×4 (05:50→23:38)
[2021-04-02] MEDS ORDERED: CEFEPIME 1,000 MG/NS 50 ML IVPB IV SCH ×2 (06:00)
[2021-04-02] MEDS ORDERED: RT-ALBUTEROL/IPRATROPIUM 3 ML (DUONEB) VIAL INH SCH ×2 (07:00→09:00)
[2021-04-02] MEDS ORDERED: FLU QUADRIvalent (3YOA+) 60 mcg/0.5 ml 2021-22(AFLURIA) IM ONE (07:00)
--- NOTE | 2021-04-02 07:36 | Diagnostic Imaging Report ---
CHEST 1 VIEW, AP/PA ONLY Indication: Pneumonia Comparison: 04/01/2021 Findings: Persistent bibasilar pulmonary opacities. No pleural effusion or pneumothorax. Normal cardiomediastinal silhouette. Impression: 1. Persistent bibasilar pulmonary opacities could be on the basis of atelectasis. However, there is consolidation in the left lung base seen on CT abdomen pelvis from prior day that cannot be seen on this portable exam. This nonvisualized consolidation may be due to pneumonia. Dictated by: Dictated on workstation # [id number]
[2021-04-02 07:44] VITALS: BP 140/75
[2021-04-02] MEDS: RT--FLUTICASONE/SALMETEROL 113-14 (AIRDUO RespiCLICK) IH SCH ×2 (07:46→20:16)
[2021-04-02] MEDS ORDERED: ARTIFICAL TEARS 0.4 ML UNIT DOSE (REFRESH PLUS) OU PRN (08:30)
[2021-04-02] MEDS: FOLIC ACID 1 MG TAB PO SCH (08:43)
[2021-04-02] MEDS: LORATADINE (CLARITIN) 10 MG TAB PO SCH (08:43)
[2021-04-02] MEDS: NS IV 1000 ML 1,000 ML IV SCH (08:52)
[2021-04-02] MEDS ORDERED: CEFEPIME INJECTION 2,000 MG in NS (IVPB) 50 ML IV SCH (09:00)
--- NOTE | 2021-04-02 09:21 | Physical Therapy Evaluation ---
PT Evaluation-General Medical Diagnosis Admission Date Apr 01, 2021 at 20:20 Medical Diagnosis: fall, scalp abrasion Onset Date: Apr 01, 2021 Therapy Diagnosis Therapy Diagnosis: impaired mobility, strength, endurance Height/Weight Height (Feet): 6 Height (Inches): 1.00 Weight (Pounds): 195 Weight (Ounces): 0 Precautions Precautions/Isolations: Fall Prevention, Standard Precautions Referral Physician: Debbie Pereira DO Reason for Referral: Evaluation/Treatment Medical History Pertinent Medical History: Alcoholism, CAD, COPD, CVA, HTN, PR, Neuropathy, PVD, Smoking Additional Medical History Past Medical History Surgeries: Yes (EYES;C+L SPINE;CARDIAC CATHS-STENTS X3;BILAT CAROTID ENDART;FOOT;SKIN CA) Angioplasty, Appendectomy, Cardiac, Coronary Stent, Eye Surgery, Orthopedic, Vascular Surgery Respiratory: Yes COPD Currently Using CPAP: No Currently Using BIPAP: No Cardiac: Yes (CARDIAC CATHS-STENTS X3; BILAT CAROTID ENDARTERECTOMIES;R CAROTID STENT) High Cholesterol, Hypertension Neurological: Yes (stroke Jan 20, 2020-RIGHT SIDE PARALYSI, R sided stent placed; TIA 03/23/20) Stroke Reproductive Disorders: No Sexually Transmitted Disease: No HIV/AIDS: No Genitourinary: No Gastrointestinal: Yes (HEPATITIS C--S/P TREATMENT) Hepatitis Musculoskeletal: Yes (CHRONIC NECK AND BACK PAIN-S/P C-SPINE + L-SPINE SURGERY; L FOOT FX/ORIF) Degenerate Disk Disease, Arthritis, Chronic Back Pain, Fractures Endocrine: No HEENT: Yes (READING GLASSES;EYE SURGERY CHILD) Loss of Vision: Bilateral Hearing Impairment: Hard of Hearing Cancer: Yes Skin Did You Recieve Any Treatments: Yes What Type of Treatment Did You: Surgical Intervention Psychosocial: Yes Anxiety, Violent Behavior, Depression Integumentary: Yes (SKIN CANCER-GETS BLISTERS) Recent Skin Changes Blood Disorders: No Adverse Reaction/Blood Tranf: No Reviewed History: Yes Social History Home: Single Level Current Living Status: Alone Entry Into Home: Level Entry Prior Prior Level of Function SCALE: Activities may be completed with or without assistive devices. 7-Ydhhqlgijw-xbcutdy completes the activity by him/herself with no assistance from a helper. 5-Set-up or Clean-up Assistance-helper sets up or cleans up; patient completes activity. [place] assists only prior to or following the activity. 4-Supervision or Touching Assistance-helper provides verbal cues and/or touching/steadying and/or contact guard assistance as patient completes activity. Assistance may be provided throughout the activity or intermittently. 3-Partial/Moderate Assistance-helper does LESS THAN HALF the effort. [place] lifts, holds or supports trunk or limbs, but provides less than half the effort. 2-Substantial/Maximal Assistance-helper does MORE THAN HALF the effort. [place] lifts or holds trunk or limbs and provides more than half the effort. 5-[place]-abtxlt does ALL the effort. Patient does none of the effort to complete the activity. Or, the assistance of 2 or more helpers is required for the patient to complete the activity. If activity was not attempted, code reason: 7-Patient Refused. 9-Not Applicable-not attempted and the patient did not perform the activity before the current illness, exacerbation or injury. 10-Not Attempted due to Environmental Limitations-(lack of equipment, weather restraints, etc.). 88-Not Attempted due to Medical Conditions or Safety Concerns. Bed Mobility: 6 Transfers (B,C,W/C): 6 Prior Devices Use: Manual wheelchair Patient states he does still walk a little bit but hasn't in a while, uses a manual WC PT Evaluation-Current Subjective Patient in bed pre tx, ,agrees to PT, has minor rib pain from fx. Pt/Family Goals patient expresses his desire to go to assisted living Objective Patient Orientation: Person, Place, Situation Attachments: IV ROM/Strength ROM Lower Extremities WNL Strength Lower Extremities LLE grossly 4/5, RLE grossly 3/5 Sensory Vision: Wears Glasses Hearing: Functional Transfers Roll Left to Right (QC): 6 Lying to Sitting/Side of Bed(Q: 4 Sit to Stand (QC): 4 Chair/Bjb-gi-Zvebb Xfer(QC): 4 CGA for sit to stand and to transfer to recliner. Patient transfers the long way around instead of just turning 90 degrees and sitting in chair, he says that is how he does it at home. Balance Sitting Static: Normal Sitting Dynamic: Normal Standing Static: Fair Standing Dynamic: Fair Treatment BLE seated exercises x20 (AP, LAQ), patient can do these exercises with his right leg but takes extra time Assessment/Needs Patient in recliner post tx with nurse call, phone, tray, all needs met. Patient has impaired mobility, strength, endurance. Patient needs CGA for transfers. Patient's O2 at 91% post tx on room air. His O2 sensor ended up falling off and doesn't go back on very well, nurse notified. Rehab Potential: Fair PT Care Home Goals Care Home Goals PT Care Home Goals Time Frame: Apr 09, 2021 Roll Left & Right (QC): 6 Sit to Lying (QC): 6 Lying-Sitting on Side/Bed(QC): 6 Sit to Stand (QC): 5 Chair/Cgh-vy-Zqxdo Xfer(QC): 5 PT Plan Problem List Problem List: Activity Tolerance, Functional Strength, Safety, Balance, Gait, Transfer, Bed Mobility, ROM Treatment/Plan Treatment Plan: Continue Plan of Care Treatment Plan: Bed Mobility, Education, Functional Activity Dutch, Functional Strength, Gait, Safety, Therapeutic Exercise, Transfers Treatment Duration: Apr 09, 2021 Frequency: 6 times per week Estimated Hrs Per Day: .25 hour per day Patient and/or Family Agrees t: Yes Safety Risks/Education Patient Education: Transfer Techniques, Correct Positioning, Safety Issues Teaching Recipient: Patient Teaching Methods: Demonstration, Discussion Response to Teaching: Reinforcement Needed Discharge Recommendations Plan Patient will perform bed mobility and transfer training, balance and endurance t raining, functional strengthening, gait training, and education, to improve functional mobility and independence at home. Therapy Discharge Recommendati: Scheduled Assistance, Post Acute PT Time/GCodes Time In: 0850 Time Out: 0907 Total Billed Treatment Time: 17 Total Billed Treatment 1 visit IAN ALEX PT Apr 02, 2021 09:21
[2021-04-02] MEDS: DOCUSATE SODIUM 100 MG (COLACE) CAP PO SCH ×2 (09:28→20:53)
[2021-04-02] MEDS: DOXYCYCLINE INJECTION 100 MG in NS (IVPB) 100 ML IV SCH ×2 (09:28→21:01)
[2021-04-02] MEDS: SENNOSIDES 8.6 MG (SENOKOT) TAB PO SCH ×2 (09:28→20:53)
--- NOTE | 2021-04-02 10:45 | Occupational Therapy Eval ---
OT Evaluation-General/PLF Medical Diagnosis Admission Date Apr 01, 2021 at 20:20 Medical Diagnosis: fall, scalp abrasion Onset Date: Apr 01, 2021 Therapy Diagnosis Therapy Diagnosis: reduced adl status Height/Weight Height (Feet): 6 Height (Inches): 1.00 Weight (Pounds): 195 Weight (Ounces): 0 Precautions Precautions/Isolations: Fall Prevention, Standard Precautions Referral Physician: Debbie Pereira DO Referral Reason: Evaluation/Treatment Medical History Pertinent Medical History: Alcoholism, CAD, COPD, CVA, HTN, NE, Neuropathy, PVD, Smoking Current History Presents to ER following a fall. Family reports increased confusion and lethargy over past 2-3 days. Pt reports he recently moved back to apartment after staying at [facility] and [facility] for ~6 months. He states he has difficulty completing adls (due to only having 1 functional UE) but able to manage on his own. He owns a walker but spends most of the day in his manual w/c. He reports he can transfer in/out of w/c without assist. Since he has only been home for ~1 week, he has not spent a lot of time on his iadls. His daughter provides meals along with some form of a deliver meal plan. Reviewed History: Yes Social History Home: Apartment Current Living Status: Alone Entry Into Home: Level Entry ADL-Prior Level of Function SCALE: Activities may be completed with or without assistive devices. 9-Cirvpjdlju-jntrjjg completes the activity by him/herself with no assistance from a helper. 5-Set-up or Clean-up Assistance-helper sets up or cleans up; patient completes activity. [place] assists only prior to or following the activity. 4-Supervision or Touching Assistance-helper provides verbal cues and/or touching/steadying and/or contact guard assistance as patient completes activity. Assistance may be provided throughout the activity or intermittently. 3-Partial/Moderate Assistance-helper does LESS THAN HALF the effort. [place] [address] lifts, holds or supports trunk or limbs, but provides less than half the effort. 2-Substantial/Maximal Assistance-helper does MORE THAN HALF the effort. [place] [address] lifts or holds trunk or limbs and provides more than half the effort. 1-Tljmbcgrf-uocezp does ALL the effort. Patient does none of the effort to complete the activity. Or, the assistance of 2 or more helpers is required for the patient to complete the activity. If activity was not attempted, code reason: 7-Patient Refused. 9-Not Applicable-not attempted and the patient did not perform the activity before the current illness, exacerbation or injury. 10-Not Attempted due to Environmental Limitations-(lack of equipment, weather restraints, etc.). 88-Not Attempted due to Medical Conditions or Safety Concerns. Self Care: Needed Some Help Functional Cognition: Unknown DME/Equipment: Bath Bench, Grab Bars, Shower OT Current Status Subjective Pt denies pain, agreeable to eval. Appearance Pt left sitting in recliner, all needs within reach at OT departure. Mental Status/Objective Patient Orientation: Person, Place, Situation Attachments: IV, Telemetry Current Hand Dominance: Right Upper Extremity ROM Residual R sided weakness/rom Wrist/hand in flexor synergy. Full Elbow extension, ~90 degrees elbow flexion. Shoulder flexion ~20 degrees. LUE WNL Upper Extremity Strength R impaired, residual weakness from old stroke LUE: 4/5 throughout ADL-Treatment Eating (QC): 4 Lower Body Dressing (QC): 3 (per clinical judgment) On/Off Footwear (QC): 3 Pt sitting in chair at OT arrival. Good flexibility noted in hips as pt able to bring foot over contralateral knee for LB dressing tasks. Good initiation of one handed technique when donning socks but does require mod a to fully don over toes secondary to sock getting caught on toenails. Sit<>stand: CGA-min a. Fair standing balance. Extra time for all tasks needed. Education OT Patient Education: Correct positioning, Energy conservation, Modified ADL techniques, Progress toward Goal/Update tx plan, Purpose of tx/functional activities, Safety issues, Transfer techniques Teaching Recipient: Patient Teaching Methods: Demonstration, Discussion Response to Teaching: Verbalize Understanding, Return Demonstration OT Chcf Goals Duplicating Machine Mechanic Goals Time Frame: Apr 10, 2021 Eating (QC): 5 Oral Hygiene (QC): 5 Toileting Hygiene (QC): 4 Upper Body Dressing (QC): 4 Lower Body Dressing (QC): 4 1=Demonstrate adherence to instructed precautions during ADL tasks. 2=Patient will verbalize/demonstrate understanding of assistive devices/modifications for ADL. 3=Patient will improve strength/tolerance for activity to enable patient to perform ADL's. OT Education/Plan Problem List/Assessment Assessment: Decreased Activ Tolerance, Decreased UE Strength, Impaired Coordination, Impaired Funct Balance, Impaired I ADL's, Impaired Self-Care Skills, Restricted Funct UE ROM Discharge Recommendations Plan/Recommendations: Continue POC Therapy Discharge Recommendati: Post Acute OT Comment Pt interested in assisted living placement Treatment Plan/Plan of Care Treatment,Training & Education: Yes Patient would benefit from OT for education, treatment and training to promote independence in ADL's, mobility, safety and/or upper extremity function for ADL's. Plan of Care: ADL Retraining, Functional Mobility, Group Exercise/Act as Ind, UE Funct Exercise/Act, UE Neuromus Re-Ed/Coord, W/C Management Training Treatment Duration: Apr 10, 2021 Frequency: 3 times per week (3-5x/week) Estimated Hrs Per Day: .25 hour per day Agreement: Yes Rehab Potential: Fair Time/GCodes Start Time: 09:35 Stop Time: 09:50 Total Time Billed (hr/min): 15 Billed Treatment Time 1 visit Rin Leyva OT Apr 02, 2021 10:45
--- NOTE | 2021-04-02 11:38 | History & Physical-Hospitalist ---
KATE LUGO U 04/02/21 1137: History of Present Illness HPI/Chief Complaint Mr. Matute is a 65 y/o M with a PMH of CVA (R.hemiparesis), COPD, CAD, PVD, and meth use (neg UDS) who was anselmo in by EMS due to multiple falls at home. He has a R. scalp abrasion and complaints of hip pain and shortness of breath. He has been here before and worked with PT/OT. He denies headache, vision changes, nausea, vomiting, and weakness or numbness. Source: patient Exam Limitations: no limitations Date Seen 04/02/21 Time Seen by a Provider: 10:00 Attending Physician Debbie Pereira Gloria J MD Referring Physician Date of Admission Apr 01, 2021 at 20:20 Home Medications & Allergies Home Medications Reviewed patient Home Medication Reconciliation performed by pharmacy medication reconciliations photographic technician and/or nursing. Patients Allergies have been reviewed. Allergies Allergies Coded Allergies No Known Drug Allergies (Unverified03/13/18) Past Geopabx-Ojnxef-Jstthh Hx Patient Social History Tobacco Use?: Yes Tobacco type used: Cigarettes Smoking Status: Current Everyday Smoker Smokeless Tobacco Frequency: Never a User Use of E-Cig and/or Vaping dev: No Substance use?: Yes Substance type: Marijuana Additional substance use comme: PT STATES X6 MONTHS SINCE LAST METH USE Substance frequency: Daily Alcohol Use?: Yes Alcohol Frequency: Couple times a week Pt feels they are or have been: No Immunizations Up To Date Date of Influenza Vaccine: Nov 09, 2020 First/Initial COVID19 Vaccinat: Unsure of date of 1 dose Second COVID19 Vaccination Oskar: Unsure of date of 2nd dose Tetanus Booster (TDap): Less Than 5 Years Date of Pneumonia Vaccine: June 20, 2013 Seasonal Allergies Seasonal Allergies: No Current Status Advance Directives: No Communicates: Verbally Primary Language: Frisian Preferred Spoken Language: Frisian Is interpretation needed?: No Sensory deficits: Vision impairment Implanted or Applied Medical D: Stents Past Medical History Surgeries: Angioplasty, Appendectomy, Cardiac, Coronary Stent, Eye Surgery, Orthopedic, Vascular Surgery COPD Currently Using CPAP: No Currently Using BIPAP: No High Cholesterol, Hypertension Stroke Sexually Transmitted Disease: No HIV/AIDS: No Hepatitis Degenerate Disk Disease, Arthritis, Chronic Back Pain, Fractures Loss of Vision: Bilateral Hearing Impairment: Hard of Hearing Skin Did You Recieve Any Treatments: Yes What Type of Treatment Did You: Surgical Intervention Anxiety, Violent Behavior, Depression Recent Skin Changes Blood Disorders: No Adverse Reaction/Blood Tranf: No Hypertension Hyperlipidemia Carotid stenosis CVA Methamphetamine use Cannabis use Tobacco abuse Family Medical History Cancer 19 FATHER (SKIN) 19 MOTHER Cancer of colon 19 MOTHER Kidney disease 19 FATHER (PASSED KIDNEY FAILURE) SOCIAL HISTORY: -ETOH--OCCASIONAL USE, HX OF HEAVY USE -DRUGS--DAILY MARIJUANA USE, ALSO METH USE. DENIES IV DRUG USE -SMOKES 2 PPD PAST SURGICAL HISTORY: -LAST CARDIAC CATH DONE HERE IN 2013--PATENT STENTS -CARDIAC CATHS WITH STENTS X 3 -BILATERAL CAROTID ENDARTERECTOMY -RIGHT CAROTID STENT 01/21/20 AT -RIGHT EYE SURGERY CHILD -CERVICAL SPINE AND LUMBAR SPINE SURGERIES -LEFT FOOT FRACTURE/ ORIF -SKIN CANCER REMOVAL -APPENDECTOMY Review of Systems Constitutional: No chills, No fever EENTM: eye pain; No blurred vision, No double vision Respiratory: cough Cardiovascular: No chest pain, No palpitations Gastrointestinal: No abdominal pain, No constipation, No diarrhea Genitourinary: No dysuria, No frequency, No hematuria Physical Exam Physical Exam Vital Signs Vital Signs - First Documented 04/01/21 15:55 Temp 37.0 Pulse 72 Resp 16 B/P (MAP) 118/81 (93) Pulse Ox 96 O2 Delivery Room Air O2 Flow Rate 2.00 Capillary Refill : Less Than 3 Seconds Height, Weight, BMI Height: 6'1.00" Weight: 195lbs. 0oz. [id number]; 23.76 BMI Method:Actual General Appearance: No Apparent Distress, Thin HEENT: Normal ENT Inspection Neck: Normal Inspection, Non Tender Respiratory: Lungs Clear, Normal Breath Sounds, No Accessory Muscle Use Cardiovascular: Regular Rate, Rhythm, No Gallop, No Murmur Gastrointestinal: Normal Bowel Sounds, Non Tender, Soft Rectal: Deferred Back: Normal Inspection Extremity: Normal Inspection Neurologic/Psychiatric: Alert, Oriented x3, Normal Mood/Affect Skin: Normal Color, Warm/Dry Results Results/Procedures Labs Laboratory Tests 04/01/21 16:15 04/01/21 18:48 04/02/21 04:59 Patient resulted labs reviewed. Imaging: Reviewed Imaging Report Assessment/Plan Admission Diagnosis Fall Admission Status: Observation Assessment and Plan Fall/Debility - CT head: unremarkable - PT/OT - hx of CVA with R. hemiparesis BRYANT - Cr was 3 on admission - s/p LR boluses - Cr back to baseline - continue maintenance IV fluids - CT ab/pelvis showed kidney lesion, will need to f/u COPD - solumedrol q6h -CXR: bibasilar atelectasis - cefepime, doxycyclin - duoneb, airduo Hip Pain - X-ray was unremarkable - dilaudid and oxycodone prn - PT/OT PVD - heparin DEBBIE PEREIRA DO 04/03/21 0509: History of Present Illness HPI/Chief Complaint Chief complaint: Falls with weakness and acute kidney injury and pneumonia History of present illness: This is a 65-year-old white male known to me from prior hospital stay including inpatient rehab with history of meth use who presented to the ER with complaints of multiple falls at home. Patient was found to have acute kidney injury status post IV fluids in the ER with good resolution to baseline kidney disease function. Overall he is much better and feels like he is breathing better. Source: patient Exam Limitations: no limitations Past Xnzhsnh-Ckjiij-Hwcpzd Hx Patient Social History Marrital Status: single Employed/Student: unemployed Smoking Status: Current Everyday Smoker Past Medical History Pneumonia, Chronic Bronchitis, COPD, Emphysema Coronary Artery Disease, High Cholesterol, Hypertension Neuropathy, Stroke Benign Prostatic Hyperpl, Renal Failure Gastroesophageal Reflux Chronic Back Pain Family Medical History Cancer 19 FATHER (SKIN) 19 MOTHER Cancer of colon 19 MOTHER Kidney disease 19 FATHER (PASSED KIDNEY FAILURE) Review of Systems Constitutional: see HPI, weakness EENTM: no symptoms reported Respiratory: dyspnea on exertion Cardiovascular: no symptoms reported Gastrointestinal: no symptoms reported Genitourinary: no symptoms reported Musculoskeletal: back pain, joint pain Skin: no symptoms reported Psychiatric/Neurological: No Symptoms Reported All Other Systems Reviewed Negative Unless Noted: Yes Physical Exam Physical Exam General Appearance: No Apparent Distress, Chronically ill, Thin Eyes: Right Eye Normal Inspection, Right Eye PERRL HEENT: PERRL/EOMI, Normal ENT Inspection, Pharynx Normal, Moist Mucous Membranes Neck: Full Range of Motion, Normal Inspection, Non Tender Respiratory: Chest Non Tender, Lungs Clear, Normal Breath Sounds, No Accessory Muscle Use, No Respiratory Distress Cardiovascular: Regular Rate, Rhythm, No Edema, No Gallop, No JVD, No Murmur, Normal Peripheral Pulses Gastrointestinal: Normal Bowel Sounds, No Organomegaly, No Pulsatile Mass, Non Tender, Soft Back: Normal Inspection, No CVA Tenderness, No Vertebral Tenderness Extremity: Normal Capillary Refill, Normal Inspection, Normal Range of Motion, Non Tender, No Calf Tenderness, No Pedal Edema Neurologic/Psychiatric: Alert, Oriented x3, No Motor/Sensory Deficits, Normal Mood/Affect Skin: Normal Color, Warm/Dry Lymphatic: No Adenopathy Assessment/Plan Admission Diagnosis Assessment: Fall Acute kidney injury Presumed pneumonia CVA with right sided weakness recurrent in type Meth use hx THC use Smoker heavy use Cartoid stenosis CAD History of NSTEMI HTN History of V-tach Plan: Supportive care Transfer to fourth floor Home meds Admission Status: Inpatient Order (span 2 midnights) Reason for Inpatient Admission: Acute kidney injury with pneumonia Diagnosis/Problems Diagnosis/Problems (1) Dehydration Status: Acute (2) BRYANT (acute kidney injury) Status: Acute (3) CVA (cerebral vascular accident) Status: Acute (4) CAD (coronary artery disease) Supervisory-Addendum Brief Verification & Attestation Participated in pt care: history, MDM, physical Personally performed: exam, history, MDM, supervision of care Care discussed with: Medical Student Procedures: n/a Results interpretation: Verified all documentation Verification and Attestation of Medical Student E/M Service A medical student performed and documented this service in my presence. I reviewed and verified all information documented by the medical student and made modifications to such information, when appropriate. I personally performed the physical exam and medical decision making. Debbie Pereira, Apr 03, 2021,05:04 KATE LUGO Apr 02, 2021 11:37 DEBBIE PEREIRA DO Apr 03, 2021 05:09
[2021-04-02] MEDS: BACLOFEN 10 MG (LIORESAL) TAB PO PRN ×2 (12:15→20:55)
[2021-04-02] MEDS: CEFEPIME 1,000 MG/NS 50 ML IVPB IV SCH ×6 (12:27→23:39)
[2021-04-02] MEDS ORDERED: NON-FORMULARY MEDICATION 1 EA EA (Acetaminophen (Tylenol 8 Hour) 650 MG) PO PRN (12:45)
[2021-04-02] MEDS ORDERED: DICLOFENAC 1% GEL 100 GM (VOLTAREN) TUBE TP PRN (12:45)
[2021-04-02] MEDS ORDERED: BACLOFEN 10 MG (LIORESAL) TAB PO PRN (12:45)
[2021-04-02] MEDS: amLODIPine 5 MG (NORVASC) TAB PO SCH (12:52)
[2021-04-02] MEDS: GABAPENTIN 300 MG (NEURONTIN) CAP PO SCH ×2 (12:52→20:54)
[2021-04-02] MEDS: ALPRAZolam 0.5 MG (XANAX) TAB PO PRN (12:53)
[2021-04-02] MEDS ORDERED: guaiFENesin/DM (ROBITUSSIN DM) 10 ML UDC PO PRN (13:00)
[2021-04-02] MEDS: lisINopril 40 MG (PRINIVIL) TABLET PO SCH (13:14)
[2021-04-02] MEDS ORDERED: AMLO-250 PO (14:24)
[2021-04-02] MEDS ORDERED: OXYC-556 PO (14:26)
[2021-04-02 16:48] VITALS: BP 164/95
[2021-04-02] MEDS: RT-ALBUTEROL/IPRATROPIUM 3 ML (DUONEB) VIAL INH SCH (20:16)
[2021-04-02 20:30] VITALS: BP 145/82
[2021-04-02] MEDS: buPROPion SR 150 MG (WELLBUTRIN SR) TAB PO SCH (20:55)
[2021-04-02] MEDS ORDERED: MONTELUKAST 10 MG (SINGULAIR) TAB PO SCH (21:00)
[2021-04-03] VITALS: BP 107/68
[2021-04-03] MEDS: HYDROmorphone 2 MG/ML VIAL (DILAUDID) IVP PRN (02:16)
[2021-04-03 05:00] VITALS: BP 154/90
[2021-04-03] MEDS: CEFEPIME 1,000 MG/NS 50 ML IVPB IV SCH ×2 (05:49)
[2021-04-03] MEDS: methylPREDNISolone 125 MG (Solu-MEDROL) VIAL IVP SCH (05:50)
[2021-04-03] MEDS: MULTIVIT W/MINERALS TAB (THERAGRAN M) PO SCH (05:50)
[2021-04-03] MEDS: THIAMINE 100 MG (VITAMIN B-1) TAB PO SCH (05:50)
[2021-04-03 05:57] LABS: BASOPHILS % (AUTO) 0 % (0-10); EOSINOPHILS % (AUTO) 0 % (0-10); HEMATOCRIT 38 % (40-54); HEMOGLOBIN 12.7 g/dL (13.3-17.7); LYMPHOCYTES # (AUTO) 1.3 10^3/uL (1.0-4.0); LYMPHOCYTES % (AUTO) 6 % (12-44); MEAN CORPUSCULAR HEMOGLOBIN 31 pg (25-34); MEAN CORPUSCULAR HGB CONC 34 g/dL (32-36); MEAN CORPUSCULAR VOLUME 91 fL (80-99); MEAN PLATELET VOLUME 11.4 fL (9.0-12.2); MONOCYTES # (AUTO) 1.7 10^3/uL (0.0-1.0); MONOCYTES % (AUTO) 8 % (0-12); NEUTROPHILS # (AUTO) 17.2 10^3/uL (1.8-7.8); NEUTROPHILS % (AUTO) 85 % (42-75); PLATELET COUNT 176 10^3/uL (130-400); WHITE BLOOD COUNT 20.4 10^3/uL (4.3-11.0)
[2021-04-03 06:15] LABS: ALBUMIN 3.7 GM/DL (3.2-4.5); POTASSIUM 4.1 MMOL/L (3.6-5.0)
[2021-04-03 06:16] LABS: CALCIUM 9.5 MG/DL (8.5-10.1)
[2021-04-03 06:17] LABS: TOTAL PROTEIN 6.4 GM/DL (6.4-8.2)
[2021-04-03 06:19] LABS: BILIRUBIN,TOTAL 0.9 MG/DL (0.1-1.0)
[2021-04-03 06:21] LABS: CREATININE SERUM 0.91 MG/DL (0.60-1.30)
--- NOTE | 2021-04-03 06:42 | Progress Note - Hospitalist ---
Subjective HPI/CC On Admission Date Seen by Provider: Apr 03, 2021 Chief complaint: Falls with weakness and acute kidney injury and pneumonia History of present illness: This is a 65-year-old white male known to me from prior hospital stay including inpatient rehab with history of meth use who presented to the ER with complaints of multiple falls at home. Patient was found to have acute kidney injury status post IV fluids in the ER with good resolution to baseline kidney disease function. Overall he is much better and feels like he is breathing better. Focused Exam Lactate Level 04/01/21 16:36: Lactic Acid Level 1.29 Objective Exam Vital Signs Vital Signs Date Time Temp Pulse Resp B/P (MAP) Pulse Ox O2 Delivery O2 Flow Rate FiO2 04/03/21 11:13 36.1 57 20 172/78 (109) 96 Room Air 04/02/21 21:00 2.00 Capillary Refill : Less Than 3 Seconds Results/Procedures Lab Laboratory Tests 04/03/21 05:48 Patient resulted labs reviewed. Imaging: Reviewed Imaging Report Diagnosis/Problems Diagnosis/Problems (1) Dehydration Status: Acute (2) BRYANT (acute kidney injury) Status: Acute (3) CVA (cerebral vascular accident) Status: Acute (4) CAD (coronary artery disease) PRUDENCE BECK DO Apr 03, 2021 06:42
[2021-04-03 07:39] VITALS: BP 190/89
[2021-04-03] MEDS: amLODIPine 5 MG (NORVASC) TAB PO SCH (07:50)
[2021-04-03] MEDS: FOLIC ACID 1 MG TAB PO SCH (07:50)
[2021-04-03] MEDS: lisINopril 40 MG (PRINIVIL) TABLET PO SCH (07:50)
[2021-04-03] MEDS: SENNOSIDES 8.6 MG (SENOKOT) TAB PO SCH (07:51)
[2021-04-03] MEDS: BACLOFEN 10 MG (LIORESAL) TAB PO PRN (07:51)
[2021-04-03] MEDS: buPROPion SR 150 MG (WELLBUTRIN SR) TAB PO SCH (07:51)
[2021-04-03] MEDS: LORATADINE (CLARITIN) 10 MG TAB PO SCH (07:51)
[2021-04-03] MEDS: ALPRAZolam 0.5 MG (XANAX) TAB PO PRN (07:51)
[2021-04-03] MEDS: DOCUSATE SODIUM 100 MG (COLACE) CAP PO SCH (07:51)
[2021-04-03] MEDS: GABAPENTIN 300 MG (NEURONTIN) CAP PO SCH ×2 (07:52→11:49)
[2021-04-03] MEDS: RT--FLUTICASONE/SALMETEROL 113-14 (AIRDUO RespiCLICK) IH SCH (08:47)
[2021-04-03] MEDS: RT-ALBUTEROL/IPRATROPIUM 3 ML (DUONEB) VIAL INH SCH (08:47)
--- NOTE | 2021-04-03 08:47 | Physical Therapy Daily Note ---
PT Daily Note-Current Subjective Patient lying supine in bed upon PT arrival, agreeable to treatment. Patient reports he is upset with his daughter because she won't bring him his cell phone. Mental Status Patient Orientation: Person, Place Transfers SCALE: Activities may be completed with or without assistive devices. 3-Txbpmxrhfg-tfxqmas completes the activity by him/herself with no assistance from a helper. 5-Set-up or Clean-up Assistance-helper sets up or cleans up; patient completes activity. [place] assists only prior to or following the activity. 4-Supervision or Touching Assistance-helper provides verbal cues and/or touching/steadying and/or contact guard assistance as patient completes activity. Assistance may be provided throughout the activity or intermittently. 3-Partial/Moderate Assistance-helper does LESS THAN HALF the effort. [place] lifts, holds or supports trunk or limbs, but provides less than half the effort. 2-Substantial/Maximal Assistance-helper does MORE THAN HALF the effort. [place] lifts or holds trunk or limbs and provides more than half the effort. 2-Wfmdqjlhc-ylhdvo does ALL the effort. Patient does none of the effort to c omplete the activity. Or, the assistance of 2 or more helpers is required for the patient to complete the activity. If activity was not attempted, code reason: 7-Patient Refused. 9-Not Applicable-not attempted and the patient did not perform the activity before the current illness, exacerbation or injury. 10-Not Attempted due to Environmental Limitations-(lack of equipment, weather restraints, etc.). 88-Not Attempted due to Medical Conditions or Safety Concerns. Roll Left & Right (QC): 4 Sit to Lying (QC): 4 Lying to Sitting/Side of Bed(Q: 4 Sit to Stand (QC): 4 Chair/Hmc-zh-Ksvtj Xfer(QC): 4 Treatments Patient performed sitting and standing static and dynamic functional tasks. Assessment Current Status: Fair Progress Patient agreeable to treatment but upset with his daughter. Impulsive at times and attempts to get himself out of bed without PT in the room, on the right side of his bed with the bed rail up. Patient was educated on the potential dangers of this attempted activity due to the rail being up, however did not appear to understand or did not care. Patient sat at the edge of the bed and performed weight shifting and scooting to allow himself space to use the urinal. Patient performs all observed transfers with CGA. Patient transfers to the chair taking 4-5 steps. Patient in chair post treatment with all needs met, nursing notif ied, call light in hand. PT Valance Cutter Goals Valance Cutter Goals PT Valance Cutter Goals Time Frame: Apr 09, 2021 Roll Left & Right (QC): 6 Sit to Lying (QC): 6 Lying-Sitting on Side/Bed(QC): 6 Sit to Stand (QC): 5 Chair/Owf-km-Gcvre Xfer(QC): 5 PT Plan Treatment/Plan Treatment Plan: Continue Plan of Care Treatment Plan: Bed Mobility, Education, Functional Activity Dutch, Functional Strength, Gait, Safety, Therapeutic Exercise, Transfers Treatment Duration: Apr 09, 2021 Frequency: 6 times per week Estimated Hrs Per Day: .25 hour per day Patient and/or Family Agrees t: Yes Safety Risks/Education Patient Education: Transfer Techniques, Safety Issues Teaching Recipient: Patient Teaching Methods: Demonstration, Discussion Response to Teaching: Reinforcement Needed Time/GCodes Time In: 816 Time Out: 35 Total Billed Treatment Time: 18 Total Billed Treatment Visit, AYALA KELLY PT Apr 03, 2021 08:47
[2021-04-03] MEDS ORDERED: CLOPIDOGREL 75 MG (PLAVIX) TABLET PO SCH (09:00)
[2021-04-03] MEDS ORDERED: VITAMIN D3 25 MCG (1,000 UNITS) TABLET PO SCH (09:00)
[2021-04-03] MEDS ORDERED: ASPIRIN 325 MG (5 GR) TABLET PO SCH (09:00)
[2021-04-03] MEDS ORDERED: FLUTICASONE NASAL SPRAY (FLONASE) 16 GM BTL NS SCH (09:00)
[2021-04-03] MEDS: DOXYCYCLINE INJECTION 100 MG in NS (IVPB) 100 ML IV SCH (10:14)
[2021-04-03 11:13] VITALS: BP 172/78
[2021-04-03] MEDS ORDERED: CEFDINIR 300 MG (OMNICEF) CAP PO NR (11:15)
[2021-04-03] MEDS ORDERED: predniSONE 20 MG TAB PO NR (12:00)
[2021-04-03] MEDS ORDERED: PRED10TA22 PO (12:25)
[2021-04-03] MEDS ORDERED: CEFD300C3 PO (12:25)
[2021-04-03] MEDS ORDERED: OXYC-556 PO (12:25)
[2021-04-03] MEDS ORDERED: MONT-40 PO (12:25)
[2021-04-03] MEDS ORDERED: LORA10TA7 PO (12:25)
--- NOTE | 2021-04-03 12:25 | Discharge Summary ---
Discharge Summary Hospital Course Was the Problem List Reviewed?: Yes Problems/Dx: (1) Dehydration Status: Acute (2) BRYANT (acute kidney injury) Status: Acute (3) CVA (cerebral vascular accident) Status: Acute (4) CAD (coronary artery disease) Hospital Course Date of Admission: Apr 01, 2021 at 20:20 Admission Diagnosis : Family Physician/Provider: Mary Pérez MD Date of Discharge: 04/03/21 Discharge Diagnosis: Acute kidney injury, dehydration, exacerbation of COPD, bacterial bronchitis Hospital Course: Patient has short hospital course after he was admitted and given aggressive IV fluid for acute kidney injury with creatinine 3.2. Kidney function returned back to normal. IV steroids and IV antibiotics given for exacerbation of COPD and bacterial bronchitis. Home meds were restarted. Patient was deemed stable for discharge. Labs and Pending Lab Test: Laboratory Tests 04/03/21 05:48: White Blood Count 20.4H, Red Blood Count 4.15L, Hemoglobin 12.7L, Hematocrit 38L , Mean Corpuscular Volume 91, Mean Corpuscular Hemoglobin 31, Mean Corpuscular Hemoglobin Concent 34, Red Cell Distribution Width 13.4, Platelet Count 176, Mean Platelet Volume 11.4, Immature Granulocyte % (Auto) 1, Neutrophils (%) (Auto) 85H, Lymphocytes (%) (Auto) 6L, Monocytes (%) (Auto) 8, Eosinophils (%) (Auto) 0, Basophils (%) (Auto) 0, Neutrophils # (Auto) 17.2H, Lymphocytes # (Auto) 1.3, Monocytes # (Auto) 1.7H, Eosinophils # (Auto) 0.0, Basophils # (Auto) 0.0, Immature Granulocyte # (Auto) 0.1, Sodium Level 141, Potassium Level 4.1, Chloride Level 108H, Carbon Dioxide Level 22, Anion Gap 11, Blood Urea Nitrogen 34H, Creatinine 0.91, Estimat Glomerular Filtration Rate 95, BUN/Creatinine Ratio 37, Glucose Level 140H, Calcium Level 9.5, Corrected Calcium 9.7, Total Bilirubin 0.9, Aspartate Amino Transf (AST/SGOT) 18, Alanine Aminotransferase (ALT/SGPT) 12, Alkaline Phosphatase 56, Total Protein 6.4, Albumin 3.7 Microbiology 04/01/21 Urine Culture - Final, Complete NO GROWTH 04/01/21 Blood Culture - Preliminary, Resulted No growth Home Meds Active Prednisone 10 Mg Tab.ds.pk 10 Mg PO DAILY Take 4 tabs(40mg)once daily,decrease by 1 tab(10MG)daily. Montelukast Sodium 10 Mg Tablet 10 Mg PO HS Cefdinir 300 Mg Capsule 300 Mg PO BID Loratadine 10 Mg Tablet 10 Mg PO DAILY Reported Amlodipine Besylate 5 Mg Tablet 2.5 Mg PO DAILY TAKES OF A 5MG TAB Tylenol 8 Hour (Acetaminophen) 650 Mg Tablet.er 650 Mg PO Q4H PRN Bupropion HCl Sr (Bupropion HCl) 150 Mg Tablet.er 150 Mg PO BID Celebrex (Celecoxib) 200 Mg Capsule 200 Mg PO DAILY Lisinopril 40 Mg Tablet 20 Mg PO DAILY TAKES (40MG) TABLET Fluticasone Propionate 16 Gm [place].susp 2 Sprays NSEACH DAILY Vitamin D3 (Cholecalciferol (Vitamin D3)) 50 Mcg Tablet 50 Mcg PO DAILY Aspirin EC (Aspirin) 325 Mg Tablet.dr 325 Mg PO DAILY Proair Hfa (Albuterol Sulfate) 1 Puff Puff 2 Puff IH Q6H PRN Neurontin (Gabapentin) 300 Mg Capsule 900 Mg PO TID TAKES 3 (300MG) CAPSULES Atorvastatin Calcium 80 Mg Tablet 80 Mg PO HS Plavix (Clopidogrel Bisulfate) 75 Mg Tablet 75 Mg PO DAILY Baclofen 10 Mg Tablet 10 Mg PO Q8H PRN Assessment/Pt Instructions PCP in 1 week Discharge Planning: <30 minutes discharge planning Discharge Instructions Discharge Diet: Cardiac Diet Activity as Tolerated: Yes Discharge Physical Examination Vital Signs Vital Signs Date Time Temp Pulse Resp B/P (MAP) Pulse Ox O2 Delivery O2 Flow Rate FiO2 04/03/21 11:13 36.1 57 20 172/78 (109) 96 Room Air 04/02/21 21:00 2.00 General Appearance: No Apparent Distress, WD/WN, Chronically ill, Thin Allergies: Coded Allergies: No Known Drug Allergies (Unverified , 03/13/18) Discharge Summary Date of Admission Apr 01, 2021 at 20:20 Date of Discharge Discharge Date: Apr 03, 2021 Admission Diagnosis Assessment: Fall Acute kidney injury Presumed pneumonia 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
[2021-04-03 14:30] VITALS: BP 172/78
[2021-04-03] MEDS ORDERED: CEFDINIR 300 MG (OMNICEF) CAP PO SCH (21:00)
[2021-04-04] MEDS ORDERED: predniSONE 20 MG TAB PO SCH (07:00)
--- NOTE | 2021-04-06 04:30 | Physician Query Clarification ---
PQ-Uncertain Diagnosis Admission/Discharge Admission Date: Apr 01, 2021 at 20:20 Discharge Date: Apr 03, 2021 at 14:30 PRUDENCE Miller DO The medical record reflects the following clinical scenario: History/Risk Factors: 65 male patient presented with Acute renal failure treated with IV fluids, pneumonia was documented in medical record. Hand P, 04/01: Acute kidney injury, pneumonia. Discharge summary, 04/03: Acute kidney injury, dehydration, exacerbation of COPD, bacterial bronchitis Clinical Findings: WBC-20.4, Prolactin-0.25 H. Treatment: IV Cefipime, doxycycline. Question: Is Pneumonia a clinically valid diagnosis? Pneumonia was documented in the Hand P, 04/02 with no further documentation in the medical record. Please document a response in Progress Note or Discharge Summary. 1. Yes, clinically valid, condition resolved. 2. No, condition ruled out. 3. Other, with explanation of clinical findings. 4. Undetermined, no explanation for clinical findings. PHYSICIAN RESPONSE Diagnosis clinically valid: No, conditon ruled out Please remember a lack of response to the above will prompt a phone page by CDI/Coding staff. In responding to this query, please exercise your independent professional judgment. The purpose of this communication is to more accurately reflect the complexity of your patients condition. The fact that a question is asked does not imply that any particular answer is desired or expected. Thank you for your timely response to this clarification. Requestors name: [ ] Phone # [ ] THIS PHYSICIAN QUERY FORM IS A PERMANENT PART OF THE MEDICAL RECORD OREN VIEIRA Apr 06, 2021 04:30 PRUDENCE BECK DO Apr 06, 2021 04:41
== END 2021-04-03 14:30 | disposition home or self-care (01) | DRG 683 ==
LOC: EDUNIT# 15:54 → ER 15:56 → CSD 20:20 → 4TH 04-02 13:24
PROVIDERS: ADMIT Internal Medicine; ATTEND Internal Medicine
DX: N17.9 Acute kidney failure, unspecified (principal); I69.351 Hemiplegia and hemiparesis following cerebral infarction affecting right dominant side; J44.1 Chronic obstructive pulmonary disease with (acute) exacerbation; E86.0 Dehydration; Z95.5 Presence of coronary angioplasty implant and graft; E78.00 Pure hypercholesterolemia, unspecified; I10 Essential (primary) hypertension; M19.90 Unspecified osteoarthritis, unspecified site; G89.29 Other chronic pain; M54.9 Dorsalgia, unspecified; F41.9 Anxiety disorder, unspecified; Z79.82 Long term (current) use of aspirin; Z79.899 Other long term (current) drug therapy; I25.10 Atherosclerotic heart disease of native coronary artery without angina pectoris; I73.9 Peripheral vascular disease, unspecified; S01.01XA Laceration without foreign body of scalp, initial encounter; W18.30XA Fall on same level, unspecified, initial encounter; Y92.009 Unspecified place in unspecified non-institutional (private) residence as the place of occurrence of the external cause; F17.210 Nicotine dependence, cigarettes, uncomplicated; N40.0 Benign prostatic hyperplasia without lower urinary tract symptoms; K21.9 Gastro-esophageal reflux disease without esophagitis; I65.29 Occlusion and stenosis of unspecified carotid artery; J40 Bronchitis, not specified as acute or chronic
CPT/HCPCS: 36415; 70450; 71045; 72125; 74176; 80048; 80053; 80306; 80320; 81000; 82805; 83605; 83880; 84145; 85007; 85025; 85027; 85610; 85730; 87040; 87088; 94640; 94760

== ENCOUNTER 2021-04-11 14:05 | Emergency (ER) | payer MEDICAID, OTHER ==
[~2021-04-11] VITALS: Ht 188 cm; Wt 79.4 kg
[~2021-04-11 14:05] MED LIST changes: +CEFD300C3 PO; +LORA10TA7 PO; +MONT-40 PO; +OXYC-556 PO; +PRED10TA22 PO
[2021-04-11] MEDS ORDERED: LACTATED RINGERS 1,000 ML IV ONE (14:15)
[2021-04-11 14:24] LABS: BASOPHILS # (AUTO) 0.1 10^3/uL (0.0-0.1); BASOPHILS % (AUTO) 1 % (0-10); EOSINOPHILS # (AUTO) 0.7 10^3/uL (0.0-0.3); EOSINOPHILS % (AUTO) 5 % (0-10); HEMATOCRIT 39 % (40-54); HEMOGLOBIN 12.9 g/dL (13.3-17.7); LYMPHOCYTES # (AUTO) 1.7 10^3/uL (1.0-4.0); LYMPHOCYTES % (AUTO) 12 % (12-44); MEAN CORPUSCULAR HEMOGLOBIN 30 pg (25-34); MEAN CORPUSCULAR HGB CONC 33 g/dL (32-36); MEAN CORPUSCULAR VOLUME 92 fL (80-99); MEAN PLATELET VOLUME 10.5 fL (9.0-12.2); MONOCYTES # (AUTO) 1.2 10^3/uL (0.0-1.0); MONOCYTES % (AUTO) 8 % (0-12); NEUTROPHILS # (AUTO) 11.2 10^3/uL (1.8-7.8); NEUTROPHILS % (AUTO) 75 % (42-75); PLATELET COUNT 230 10^3/uL (130-400)
--- NOTE | 2021-04-11 14:25 | ED Abdominal Pain ---
General Chief Complaint: Abdominal/GI Problems Stated Complaint: CONSTIPATION/DEHYDRATION Source of Information: Patient Exam Limitations: No Limitations History of Present Illness Date Seen by Provider: Apr 11, 2021 Time Seen by Provider: 14:00 Initial Comments Patient to the ER by EMS from home with chief complaint that he is had a bowel movement in the past 2 days. He states his been trying for 3 hours took couple doses of Ex-Lax. No MiraLAX, mag citrate, suppositories, enemas. Says he has pain all over in his abdomen. No trauma. No blood per rectum, dysuria. No history of bowel obstruction. States he had a colonoscopy years ago which was unremarkable. States he has been drinking less water lately because he thinks the water and arm tastes gross. Denies recent opiate use. 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 Allergies and Home Medications Allergies Coded Allergies: No Known Drug Allergies (Unverified , 03/13/18) Patient Home Medication List Home Medication List Reviewed: Yes Acetaminophen (Tylenol 8 Hour) 650 Mg Tablet.er, 650 MG PO Q4H PRN for PAIN-MILD (1-4), (Reported) Entered as Reported by: RENNY STEPHENS on 01/05/21 0928 Albuterol Sulfate (Proair Hfa) 1 Puff Puff, 2 PUFF IH Q6H PRN for SHORTNESS OF BREATH, (Reported) Entered as Reported by: ANNA KOVACS on 10/19/20 1328 Amlodipine Besylate (Amlodipine Besylate) 5 Mg Tablet, 2.5 MG PO DAILY, (Reported) Entered as Reported by: RENNY STEPHENS on 04/02/21 1424 Aspirin (Aspirin EC) 325 Mg Tablet.dr, 325 MG PO DAILY, (Reported) Entered as Reported by: ANNA KOVACS on 10/19/20 1328 Atorvastatin Calcium (Atorvastatin Calcium) 80 Mg Tablet, 80 MG PO HS, (Reported) Entered as Reported by: RENNY STEPHENS on 04/28/20 1607 Baclofen (Baclofen) 10 Mg Tablet, 10 MG PO Q8H PRN for MUSCLE SPASMS, (Reported) Entered as Reported by: LEYLA ESPINOZA on 03/13/18 1354 Bupropion HCl (Bupropion HCl Sr) 150 Mg Tablet.er, 150 MG PO BID, (Reported) Entered as Reported by: RENNY STEPHENS on 01/05/21927 Cefdinir (Cefdinir) 300 Mg Capsule, 300 MG PO BID Prescribed by: PRUDENCE BECK on 04/03/21 122 Celecoxib (Celebrex) 200 Mg Capsule, 200 MG PO DAILY, (Reported) Entered as Reported by: RENNY STEPHENS on 01/05/21927 Cholecalciferol (Vitamin D3) (Vitamin D3) 50 Mcg Tablet, 50 MCG PO DAILY, (Reported) Entered as Reported by: ANNA KOVACS on 10/19/20 1328 Clopidogrel Bisulfate (Plavix) 75 Mg Tablet, 75 MG PO DAILY, (Reported) Entered as Reported by: LEYLA ESPINOZA on 03/13/18 135 Fluticasone Propionate (Fluticasone Propionate) 16 Gm [place].susp, 2 SPRAYS NSEACH DAILY, (Reported) Entered as Reported by: ANNA KOVACS on 10/19/20 1328 Gabapentin (Neurontin) 300 Mg Capsule, 900 MG PO TID, (Reported) Entered as Reported by: ANNA KOVACS on 10/19/20 1328 Lisinopril (Lisinopril) 40 Mg Tablet, 20 MG PO DAILY, (Reported) Entered as Reported by: ANNA KOVACS on 10/19/20 1328 Loratadine (Loratadine) 10 Mg Tablet, 10 MG PO DAILY Prescribed by: PRUDENCE BECK on 04/03/21 122 Montelukast Sodium (Montelukast Sodium) 10 Mg Tablet, 10 MG PO HS Prescribed by: PRUDENCE BECK on 04/03/211224 Oxycodone HCl/Acetaminophen (Oxycodone-Acetaminophen 10-325) 1 Each Tablet, 1 EA PO Q8H PRN for PAIN-MODERATE (5-7) Prescribed by: PRUDENCE BECK on 04/03/211224 Prednisone (Prednisone) 10 Mg Tab.ds.pk, 10 MG PO DAILY Prescribed by: PRUDENCE BECK on 04/03/21 122 Review of Systems Review of Systems Constitutional: No chills, No fever, No malaise EENTM: No Blurred Vision, No Double Vision Respiratory: Denies Cough, Denies Shortness of Air Cardiovascular: Denies Chest Pain, Denies Lightheadedness Gastrointestinal: Denies Abdomen Distended; Abdominal Pain, Constipated; Denies Diarrhea, Denies Difficulty Swallowing, Denies Nausea Genitourinary: Denies Drainage Musculoskeletal: No back pain, No joint pain Skin: No change in color, No pruritus Psychiatric/Neurological: Denies Anxiety, Denies Depressed All Other Systems Reviewed Negative Unless Noted: Yes Past Vbeamvi-Dnmzmr-Atjwiw Hx Patient Social History Tobacco Use?: No Use of E-Cig and/or Vaping dev: No Substance use?: No Immunizations Up To Date Tetanus Booster (TDap): Less than 5yrs First/Initial COVID19 Vaccinat: Unsure of date of 1 dose Second COVID19 Vaccination Oskar: Unsure of date of 2nd dose Third COVID19 Vaccination Date: Unsure of date of 1 dose Seasonal Allergies Seasonal Allergies: No Past Medical History Surgeries: Yes (EYES;C+L SPINE;CARDIAC CATHS-STENTS X3;BILAT CAROTID EN DART;FOOT;SKIN CA) Angioplasty, Appendectomy, Cardiac, Coronary Stent, Eye Surgery, Orthopedic, Vascular Surgery Respiratory: Yes Pneumonia, Chronic Bronchitis, COPD, Emphysema Currently Using CPAP: No Currently Using BIPAP: No Cardiac: Yes (CARDIAC CATHS-STENTS X3; BILAT CAROTID ENDARTERECTOMIES;R CAROTID STENT) Coronary Artery Disease, High Cholesterol, Hypertension Neurological: Yes (stroke Jan 20, 2020-RIGHT SIDE PARALYSI, R sided stent placed; TIA 03/23/20) Neuropathy, Stroke Reproductive Disorders: No Sexually Transmitted Disease: No HIV/AIDS: No Genitourinary: No Benign Prostatic Hyperpl, Renal Failure Gastrointestinal: Yes (HEPATITIS C--S/P TREATMENT) Gastroesophageal Reflux Musculoskeletal: Yes (CHRONIC NECK AND BACK PAIN-S/P C-SPINE + L-SPINE SURGERY; L FOOT FX/ORIF) Chronic Back Pain Endocrine: No HEENT: Yes (READING GLASSES;EYE SURGERY CHILD) Loss of Vision: Bilateral Hearing Impairment: Hard of Hearing Cancer: Yes Skin Did You Recieve Any Treatments: Yes What Type of Treatment Did You: Surgical Intervention Psychosocial: Yes Anxiety, Violent Behavior, Depression Integumentary: Yes (SKIN CANCER-GETS BLISTERS) Recent Skin Changes Blood Disorders: No Adverse Reaction/Blood Tranf: No Family Medical History Cancer 19 FATHER (SKIN) 19 MOTHER Cancer of colon 19 MOTHER Kidney disease 19 FATHER (PASSED KIDNEY FAILURE) SOCIAL HISTORY: -ETOH--OCCASIONAL USE, HX OF HEAVY USE -DRUGS--DAILY MARIJUANA USE, ALSO METH USE. DENIES IV DRUG USE -SMOKES 2 PPD PAST SURGICAL HISTORY: -LAST CARDIAC CATH DONE HERE IN 2013--PATENT STENTS -CARDIAC CATHS WITH STENTS X 3 -BILATERAL CAROTID ENDARTERECTOMY -RIGHT CAROTID STENT 01/21/20 AT [facility] -RIGHT EYE SURGERY CHILD -CERVICAL SPINE AND LUMBAR SPINE SURGERIES -LEFT FOOT FRACTURE/ ORIF -SKIN CANCER REMOVAL -APPENDECTOMY Physical Exam Vital Signs Vital Signs - First Documented 04/11/21 14:09 Temp 36.1 Pulse 64 Resp 18 B/P (MAP) 148/95 (112) Pulse Ox 96 O2 Delivery Room Air Capillary Refill : Height/Weight/BMI Height: 6'1.00" Weight: 195lbs. 0oz. 88.032997av; 23.76 BMI Method:Actual General Appearance: no apparent distress, other (Chronically ill with persistent right-sided weakness) HEENT: PERRL/EOMI, pharynx normal Neck: full range of motion, supple, normal inspection Respiratory: lungs clear, normal breath sounds, no respiratory distress, no accessory muscle use Cardiovascular: normal peripheral pulses, regular rate, rhythm Gastrointestinal: normal bowel sounds, soft, tenderness (Mild tenderness all 4 quadrants without distention) Extremities: non-tender, normal inspection, normal capillary refill Neurologic/Psychiatric: alert, normal mood/affect, oriented x 3 Skin: normal color, warm/dry Progress/Results/Core Measures Results/Orders Lab Results Laboratory Tests Test 04/11/21 14:17 04/11/21 14:48 Range/Units White Blood Count 15.0 H 4.3-11.0 10^3/uL Red Blood Count 4.28 L 4.30-5.52 10^6/uL Hemoglobin 12.9 L 13.3-17.7 g/dL Hematocrit 39 L 40-54 % Mean Corpuscular Volume 92 80-99 fL Mean Corpuscular Hemoglobin 30 25-34 pg Mean Corpuscular Hemoglobin Concent 33 32-36 g/dL Red Cell Distribution Width 13.5 10.0-14.5 % Platelet Count 230 130-400 10^3/uL Mean Platelet Volume 10.5 9.0-12.2 fL Immature Granulocyte % (Auto) 1 % Neutrophils (%) (Auto) 75 42-75 % Lymphocytes (%) (Auto) 12 12-44 % Monocytes (%) (Auto) 8 0-12 % Eosinophils (%) (Auto) 5 0-10 % Basophils (%) (Auto) 1 0-10 % Neutrophils # (Auto) 11.2 H 1.8-7.8 10^3/uL Lymphocytes # (Auto) 1.7 1.0-4.0 10^3/uL Monocytes # (Auto) 1.2 H 0.0-1.0 10^3/uL Eosinophils # (Auto) 0.7 H 0.0-0.3 10^3/uL Basophils # (Auto) 0.1 0.0-0.1 10^3/uL Immature Granulocyte # (Auto) 0.1 0.0-0.1 10^3/uL Neutrophils % (Manual) 81 % Lymphocytes % (Manual) 9 % Monocytes % (Manual) 6 % Eosinophils % (Manual) 4 % Blood Morphology Comment NORMAL Sodium Level 139 135-145 MMOL/L Potassium Level 3.8 3.6-5.0 MMOL/L Chloride Level 105 98-107 MMOL/L Carbon Dioxide Level 24 21-32 MMOL/L Anion Gap 10 5-14 MMOL/L Blood Urea Nitrogen 12 7-18 MG/DL Creatinine 0.85 0.60-1.30 MG/DL Estimat Glomerular Filtration Rate 98 BUN/Creatinine Ratio 14 Glucose Level 104 70-105 MG/DL Calcium Level 9.1 8.5-10.1 MG/DL Corrected Calcium 9.3 8.5-10.1 MG/DL Total Bilirubin 0.7 0.1-1.0 MG/DL Aspartate Amino Transf (AST/SGOT) 14 5-34 U/L Alanine Aminotransferase (ALT/SGPT) 17 0-55 U/L Alkaline Phosphatase 72 40-136 U/L C-Reactive Protein High Sensitivity 0.66 H 0.00-0.50 MG/DL Total Protein 6.5 6.4-8.2 GM/DL Albumin 3.7 3.2-4.5 GM/DL Lipase 23 8-78 U/L Urine Color YELLOW Urine Clarity CLEAR Urine pH 7.0 5-9 Urine Specific [place] 1.010 L 1.016-1.022 Urine Protein NEGATIVE NEGATIVE Urine Glucose (UA) NEGATIVE NEGATIVE Urine Ketones NEGATIVE NEGATIVE Urine Nitrite NEGATIVE NEGATIVE Urine Bilirubin NEGATIVE NEGATIVE Urine Urobilinogen 1.0 < = 1.0 MG/DL Urine Leukocyte Esterase NEGATIVE NEGATIVE Urine RBC (Auto) NEGATIVE NEGATIVE Urine RBC NONE /HPF Urine WBC RARE /HPF Urine Squamous Epithelial Cells RARE /HPF Urine Renal Epithelial Cells NONE /HPF Urine Crystals NONE /LPF Urine Bacteria NEGATIVE /HPF Urine Casts NONE /LPF Urine Mucus NEGATIVE /LPF Urine Culture Indicated NO My Orders Orders - KATHIE JARRETT Ed Iv/Invasive Line Start (04/11/21 14:15) Lactated Ringers (Lr 1000 Ml Iv Solution (04/11/21 14:15) Ct Abdomen/Pelvis W (04/11/21 14:15) Cbc With Automated Diff (04/11/21 14:15) Comprehensive Metabolic Panel (04/11/21 14:15) Hs C Reactive Protein (04/11/21 14:15) Lipase (04/11/21 14:15) Pantoprazole Injection (Protonix Injecti (04/11/21 14:30) Ondansetron Injection (Zofran Injectio (04/11/21 14:30) Manual Differential (04/11/21 14:17) Ua Culture If Indicated (04/11/21 14:36) Iohexol Injection (Omnipaque 350 Mg/Ml 1 (04/11/21 15:15) Received Contrast (Hold Metformin- Contr (04/11/21 15:15) Ns (Ivpb) (Sodium Chloride 0.9% Ivpb Bag (04/11/21 15:15) Medications Given in ED Current Medications Medications Dose Ordered Sig/Lindsey Route Start Time Stop Time Status Last Admin Dose Admin Iohexol 100 ml ONCE ONCE IV 04/11/21 15:15 04/11/21 15:16 DC 04/11/21 15:46 100 ML Lactated Ringer's 1,000 ml @ 0 mls/hr Q0M ONCE IV 04/11/21 14:15 04/11/21 14:20 DC 04/11/21 14:26 0 MLS/HR Ondansetron HCl 4 mg ONCE ONCE IVP 04/11/21 14:30 04/11/21 14:31 DC 04/11/21 14:26 4 MG Pantoprazole 40 mg ONCE ONCE IV 04/11/21 14:30 04/11/21 14:31 DC 04/11/21 14:26 40 MG Sodium Chloride 100 ml ONCE ONCE IV 04/11/21 15:15 04/11/21 15:16 DC 04/11/21 15:46 80 ML Vital Signs/I&O 04/11/21 14:09 Temp 36.1 Pulse 64 Resp 18 B/P (MAP) 148/95 (112) Pulse Ox 96 O2 Delivery Room Air Progress Progress Note : Time: 14:24 Progress Note Patient with a history of chronic kidney disease, without tachycardia or septic vital signs. Plan to get a CT with oral and IV contrast if possible. Oral contrast will also help serve if he is having constipation. Will check labs to see what his kidney function is today and give him a liter of fluids. Diagnostic Imaging Diagonstic Imaging: CT Plain Films/CT/US/NM/MRI: abdomen, pelvis Comments [facility], [place] NAME: YESSYCRISTI Bryn [facility] REC#: [id number] PT STATUS: REG ER : 1955 PHYSICIAN: KATHIE JARRETT MD ADMIT DATE: 04/11/21/ER Draft Date of Exam:04/11/21 CT ABDOMEN/PELVIS W EXAMINATION: CT abdomen and pelvis with intravenous contrast. TECHNIQUE: Multiple contiguous axial images were obtained through the abdomen and pelvis after the uneventful administration of intravenous contrast. All CT scans use one or more of the following dose optimizing techniques: automated exposure control, MA and/or KvP adjustment based on patient size and exam type or iterative reconstruction. HISTORY: Abdominal pain, constipation. COMPARISON: 04/01/2021. FINDINGS: Limited views of the lower thorax are unremarkable. The liver is normal without focal lesion. There is no biliary ductal dilation. There are stones in the gallbladder. No evidence of cholecystitis. Pancreas is normal. Spleen is normal. Adrenal glands are normal. There is an unchanged indeterminate left renal lesion. There is no hydronephrosis. Urinary bladder is normal. There is a large stool ball in the rectum. There is mild wall thickening and perirectal stranding. Remainder of the bowel is normal. No evidence for obstruction. There is a duplicated inferior vena cava. No free fluid or air. No abdominal or pelvic lymphadenopathy. Aorta is normal in caliber without aneurysm. There are no suspicious osseus lesions. IMPRESSION: 1. Large stool ball in the rectum with rectal wall thickening and mild surrounding stranding concerning for stercoral colitis. 2. Unchanged indeterminate left renal lesion. Follow-up CT or MRI renal protocol recommended. Dictated on workstation # [id number] Dict: 04/11/21 1553 Trans: 04/11/21 1601 PJE [id number] Interpreted by: AYALA CORTEZ MD Electronically signed by: Reviewed: Reviewed by Me Departure Impression Primary Impression: Obstipation Disposition: HOME, SELF-CARE Condition: Stable Departure-Patient Inst. Decision time for Depature: 16:31 Referrals: YUMIKO HERNANDEZ MD (PCP/Family) Primary Care Physician Patient Instructions: Constipation, Adult (DC) Add. Discharge Instructions: Have a large load of stool in your colon. You will need to use MiraLAX to 3 times a day in addition to an enema once or twice a day until you have good results. Without using an enema or similar lower colon laxative you will probably not see as good success. You might consider using Colace for routine use once or twice a day to reduce your chances of developing constipation. You can also take MiraLAX once a day on a routine basis to keep regular. All discharge instructions reviewed with patient and/or family. Voiced understanding. Scripts Polyethylene Glycol 3350 (Miralax) 119 Gm Powder 17 GM PO TID PRN for CONSTIPATION-1ST LINE, #119 GM 0 Refills Prov: KATHIE JARRETT 04/11/21 Na Phos,M-B/Na Phos,Di-Ba (Fleet Enema) 133 Ml Enema 133 ML RC DAILY PRN for 3 Days, #3 EA 0 Refills Prov: KATHIE JARRETT 04/11/21 KATHIE JARRETT Apr 11, 2021 14:25
[2021-04-11] MEDS ORDERED: PANTOPRAZOLE 40 MG (PROTONIX) VIAL IV ONE (14:30)
[2021-04-11] MEDS ORDERED: ONDANSETRON 4 MG/2 ML (SDV) Z0FRAN IVP ONE (14:30)
[2021-04-11 14:33] LABS: ALBUMIN 3.7 GM/DL (3.2-4.5); POTASSIUM 3.8 MMOL/L (3.6-5.0)
[2021-04-11 14:34] LABS: CALCIUM 9.1 MG/DL (8.5-10.1)
[2021-04-11 14:36] LABS: TOTAL PROTEIN 6.5 GM/DL (6.4-8.2)
[2021-04-11 14:37] LABS: BILIRUBIN,TOTAL 0.7 MG/DL (0.1-1.0)
[2021-04-11 14:39] LABS: CREATININE SERUM 0.85 MG/DL (0.60-1.30)
[2021-04-11 14:54] LABS: EOSINOPHILS % (MANUAL) 4 %; LYMPHOCYTES % (MANUAL) 9 %; MONOCYTES % (MANUAL) 6 %; NEUTROPHILS % (MANUAL) 81 %
[2021-04-11 14:55] LABS: BILIRUBIN,URINE NEGATIVE (NEGATIVE); CLARITY,URINE CLEAR; COLOR,URINE YELLOW; GLUCOSE, URINE (UA) NEGATIVE (NEGATIVE); KETONES,URINE NEGATIVE (NEGATIVE); LEUKOCYTE ESTERASE ,URINE NEGATIVE (NEGATIVE); NITRITE,URINE NEGATIVE (NEGATIVE); PROTEIN,URINE NEGATIVE (NEGATIVE)
[2021-04-11 14:55] LABS: RBC MORPH NORMAL
[2021-04-11 15:02] LABS: BACTERIA,URINE NEGATIVE /HPF; SQUAMOUS EPITHELIAL CELL,UR RARE /HPF; WBC,URINE RARE /HPF
[2021-04-11] MEDS ORDERED: NS 100 ML (IVPB) BAG IV ONE (15:15)
[2021-04-11] MEDS ORDERED: HOLD METFORMIN - RECEIVED CONTRAST 20 ML VIAL IV SCH (15:15)
[2021-04-11] MEDS ORDERED: IOHEXOL 350 MG/ML 100 ML (OMNIPAQUE 350) VIAL IV ONE (15:15)
--- NOTE | 2021-04-11 16:01 | Diagnostic Imaging Report ---
EXAMINATION: CT abdomen and pelvis with intravenous contrast. TECHNIQUE: Multiple contiguous axial images were obtained through the abdomen and pelvis after the uneventful administration of intravenous contrast. All CT scans use one or more of the following dose optimizing techniques: automated exposure control, MA and/or KvP adjustment based on patient size and exam type or iterative reconstruction. HISTORY: Abdominal pain, constipation. COMPARISON: 04/01/2021. FINDINGS: Limited views of the lower thorax are unremarkable. The liver is normal without focal lesion. There is no biliary ductal dilation. There are stones in the gallbladder. No evidence of cholecystitis. Pancreas is normal. Spleen is normal. Adrenal glands are normal. There is an unchanged indeterminate left renal lesion. There is no hydronephrosis. Urinary bladder is normal. There is a large stool ball in the rectum. There is mild wall thickening and perirectal stranding. Remainder of the bowel is normal. No evidence for obstruction. There is a duplicated inferior vena cava. No free fluid or air. No abdominal or pelvic lymphadenopathy. Aorta is normal in caliber without aneurysm. There are no suspicious osseus lesions. IMPRESSION: 1. Large stool ball in the rectum with rectal wall thickening and mild surrounding stranding concerning for stercoral colitis. 2. Unchanged indeterminate left renal lesion. Follow-up CT or MRI renal protocol recommended. Dictated by: Dictated on workstation # [id number]
[2021-04-11] MEDS ORDERED: NA P133E22 RC (16:33)
[2021-04-11] MEDS ORDERED: POLY119P5 PO (16:33)
[2021-04-11 16:47] VITALS: BP 143/89
== END 2021-04-11 16:47 | disposition home or self-care (01) ==
LOC: EDUNIT# 14:05 → ER 14:08
DX: K59.00 Constipation, unspecified (principal); J44.9 Chronic obstructive pulmonary disease, unspecified; I10 Essential (primary) hypertension; I25.10 Atherosclerotic heart disease of native coronary artery without angina pectoris; E78.00 Pure hypercholesterolemia, unspecified; G89.29 Other chronic pain; M54.9 Dorsalgia, unspecified; M54.2 Cervicalgia; Z86.73 Personal history of transient ischemic attack (TIA), and cerebral infarction without residual deficits; Z79.01 Long term (current) use of anticoagulants; Z79.82 Long term (current) use of aspirin; Z79.899 Other long term (current) drug therapy; Z79.891 Long term (current) use of opiate analgesic
CPT/HCPCS: 36415; 74177; 80053; 81000; 83690; 85007; 85027; 86141

== ENCOUNTER 2021-04-20 14:27 | Emergency (ER) | payer OTHER ==
[~2021-04-20] VITALS: Ht 187 cm; Wt 79.3 kg
[~2021-04-20 14:27] MED LIST changes: +NA P133E22 RC; +POLY119P5 PO
--- NOTE | 2021-04-20 14:57 | ED General ---
General Chief Complaint: Altered Mental Status Stated Complaint: STROKE Nursing Triage Note: PT ARRIVES TO ER FROM HOME VIA EMS. ACCORDING TO REPORT, PT WAS HOME WITH FAMILY, REPORTS PT WAS ACTING CONFUSED, PT WAS LOWERED TO THE GROUND, UPON EMS ARRIVAL PT WAS FOUND TO BE HYPOTENSIVE, REPORTS 62/42. IV STARTED AND IVF INITIATED, APPROX 500 ML OF FLUIDS DIRECTOR [place]. REPORTS GLUCOSE OF 115. UPON ARRIVAL TO ER, PT A/O X 3, BP 148/82. PT HAS HAD A STROKE IN THE PAST WITH R SIDED DEFICITS FROM PREVIOUS STROKE. (PAVAN FINE MED STUDENT) History of Present Illness Date Seen by Provider: Apr 20, 2021 Time Seen by Provider: 14:36 Initial Comments Mr Krishnamurthy is a 65yo male with PMH of CVA, Heart attack, and recent fractured L rib who presents to ED today for altered mental status. Pt does not remember event and there is not family member present at this time. EMS states that he was starting to act funny/confused and they laid him on the floor. He did not have any fall. EMS found his blood pressure to be 54/42 at the lowest and did give him 500mL fluids. Currently 148/82 in the ER at this time. His blood sugar was within normal range 115. He states he is not having any pain right now. He has residual R sided weakness after a previous stroke. He does complain of coughing a bit lately and some constipation. His appetite has been good lately. He is A/O x3 in the ER (PAVAN FINE MED STUDENT) Timing/Duration: 1 Hour, Changing Over Time, Gone Now Severity: Moderate Associated Systoms: Chest Pain (Left rib where he has previous fracture), Cough; No Fever/Chills, No Shortness of Air; Syncope, Weakness (NADINE WHEAT MD) Allergies and Home Medications Allergies Coded Allergies: No Known Drug Allergies (Unverified , 03/13/18) Patient Home Medication List Home Medication List Reviewed: Yes (NADINE WHEAT MD) Acetaminophen (Tylenol 8 Hour) 650 Mg Tablet.er, 650 MG PO Q4H PRN for PAIN-MILD (1-4), (Reported) Entered as Reported by: RENNY STEPHENS on 01/05/21 0928 Albuterol Sulfate (Proair Hfa) 1 Puff Puff, 2 PUFF IH Q6H PRN for SHORTNESS OF BREATH, (Reported) Entered as Reported by: ANNA KOVACS on 10/19/20 1328 Amlodipine Besylate (Amlodipine Besylate) 5 Mg Tablet, 2.5 MG PO DAILY, (Reported) Entered as Reported by: RENNY STEPHENS on 04/02/21 1424 Aspirin (Aspirin EC) 325 Mg Tablet.dr, 325 MG PO DAILY, (Reported) Entered as Reported by: ANNA KOVACS on 10/19/20 1328 Atorvastatin Calcium (Atorvastatin Calcium) 80 Mg Tablet, 80 MG PO HS, (Reported) Entered as Reported by: RENNY STEPHENS on 04/28/20 1607 Baclofen (Baclofen) 10 Mg Tablet, 10 MG PO Q8H PRN for MUSCLE SPASMS, (Reported) Entered as Reported by: LEYLA ESPINOZA on 03/13/18 1354 Bupropion HCl (Bupropion HCl Sr) 150 Mg Tablet.er, 150 MG PO BID, (Reported) Entered as Reported by: RENNY STEPHENS on 01/05/21 0928 Cefdinir (Cefdinir) 300 Mg Capsule, 300 MG PO BID Prescribed by: PRUDENCE BECK on 04/03/21 1225 Celecoxib (Celebrex) 200 Mg Capsule, 200 MG PO DAILY, (Reported) Entered as Reported by: RENNY STEPHENS on 01/05/21 0928 Cholecalciferol (Vitamin D3) (Vitamin D3) 50 Mcg Tablet, 50 MCG PO DAILY, (Reported) Entered as Reported by: ANNA KOVACS on 10/19/20 1328 Clopidogrel Bisulfate (Plavix) 75 Mg Tablet, 75 MG PO DAILY, (Reported) Entered as Reported by: LEYLA ESPINOZA on 03/13/18 1354 Fluticasone Propionate (Fluticasone Propionate) 16 Gm [place].susp, 2 SPRAYS NSEACH DAILY, (Reported) Entered as Reported by: ANNA KOVACS on 10/19/20 1328 Gabapentin (Neurontin) 300 Mg Capsule, 900 MG PO TID, (Reported) Entered as Reported by: ANNA KOVACS on 10/19/20 1328 Lisinopril (Lisinopril) 40 Mg Tablet, 20 MG PO DAILY, (Reported) Entered as Reported by: ANNA KOVACS on 10/19/20 1328 Loratadine (Loratadine) 10 Mg Tablet, 10 MG PO DAILY Prescribed by: PRUDENCE BECK on 04/03/21 1225 Montelukast Sodium (Montelukast Sodium) 10 Mg Tablet, 10 MG PO HS Prescribed by: PRUDENCE BECK on 04/03/21 1225 Na Phos,M-B/Na Phos,Di-Ba (Fleet Enema) 133 Ml Enema, 133 ML RC DAILY PRN Prescribed by: KATHIE JARRETT on 04/11/21 1633 Oxycodone HCl/Acetaminophen (Oxycodone-Acetaminophen 10-325) 1 Each Tablet, 1 EA PO Q8H PRN for PAIN-MODERATE (5-7) Prescribed by: PRUDENCE BECK on 04/03/21 1225 Polyethylene Glycol 3350 (Miralax) 119 Gm Powder, 17 GM PO TID PRN for CONSTIPATION-1ST LINE Prescribed by: KATHIE JARRETT on 04/11/21 1633 Prednisone (Prednisone) 10 Mg Tab.ds.pk, 10 MG PO DAILY Prescribed by: PRUDENCE BECK on 04/03/21 1225 Review of Systems Review of Systems Constitutional: No chills, No fever EENTM: No hearing loss, No vision loss Respiratory: cough; No short of breath Cardiovascular: No chest pain, No edema, No palpitations Gastrointestinal: No abdominal pain; constipation; No diarrhea, No nausea, No vomiting Genitourinary: No dysuria, No hematuria Musculoskeletal: No joint pain, No joint swelling; other (L sided Rib pain) Skin: No pruritus, No rash Psychiatric/Neurological: Denies Headache, Denies Numbness (PAVAN FINE MED STUDENT) Constitutional: weakness Cardiovascular: syncope Psychiatric/Neurological: Pre-Existing Deficit (Right-sided deficit/stroke) (NADINE WHEAT MD) All Other Systems Reviewed Negative Unless Noted: Yes (NADINE WHEAT MD) Past Vihshbh-Xapgak-Uiptpd Hx Patient Social History Tobacco Use?: No Use of E-Cig and/or Vaping dev: No Substance use?: No Alcohol Use?: No Pt feels they are or have been: No (PAVAN FINE MED STUDENT) Tobacco Use?: Yes Tobacco type used: Cigarettes (NADINE WHEAT MD) Immunizations Up To Date Tetanus Booster (TDap): Less than 5yrs First/Initial COVID19 Vaccinat: UNK Second COVID19 Vaccination Oskar: UNK Third COVID19 Vaccination Date: Unsure of date of 1 dose COVID19 Vaccine 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: [employer] (PAVAN FINE MED STUDENT) Seasonal Allergies Seasonal Allergies: No (PAVAN FINE MED STUDENT) Past Medical History Surgeries: Yes (EYES;C+L SPINE;CARDIAC CATHS-STENTS X3;BILAT CAROTID ENDART;FOOT;SKIN CA) Angioplasty, Appendectomy, Cardiac, Coronary Stent, Eye Surgery, Orthopedic, Vascular Surgery Respiratory: Yes Pneumonia, Chronic Bronchitis, COPD, Emphysema Currently Using CPAP: No Currently Using BIPAP: No Cardiac: Yes (CARDIAC CATHS-STENTS X3; BILAT CAROTID ENDARTERECTOMIES;R CAROTID STENT) Coronary Artery Disease, High Cholesterol, Hypertension Neurological: Yes (stroke Jan 20, 2020-RIGHT SIDE PARALYSI, R sided stent placed; TIA 03/23/20) Neuropathy, Stroke Reproductive Disorders: No Sexually Transmitted Disease: No HIV/AIDS: No Genitourinary: No Benign Prostatic Hyperpl, Renal Failure Gastrointestinal: Yes (HEPATITIS C--S/P TREATMENT) Gastroesophageal Reflux Musculoskeletal: Yes (CHRONIC NECK AND BACK PAIN-S/P C-SPINE + L-SPINE SURGERY; L FOOT FX/ORIF) Chronic Back Pain Endocrine: No HEENT: Yes (READING GLASSES;EYE SURGERY CHILD) Loss of Vision: Bilateral Hearing Impairment: Hard of Hearing Cancer: Yes Skin Did You Recieve Any Treatments: Yes What Type of Treatment Did You: Surgical Intervention Psychosocial: Yes Anxiety, Violent Behavior, Depression Integumentary: Yes (SKIN CANCER-GETS BLISTERS) Recent Skin Changes Blood Disorders: No Adverse Reaction/Blood Tranf: No (PAVAN FINE MED STUDENT) Family Medical History Cancer 19 FATHER (SKIN) 19 MOTHER Cancer of colon 19 MOTHER Kidney disease 19 FATHER (PASSED KIDNEY FAILURE) SOCIAL HISTORY: -ETOH--OCCASIONAL USE, HX OF HEAVY USE -DRUGS--DAILY MARIJUANA USE, ALSO METH USE. DENIES IV DRUG USE -SMOKES 2 PPD PAST SURGICAL HISTORY: -LAST CARDIAC CATH DONE HERE IN 2013--PATENT STENTS -CARDIAC CATHS WITH STENTS X 3 -BILATERAL CAROTID ENDARTERECTOMY -RIGHT CAROTID STENT 01/21/20 AT [facility] -RIGHT EYE SURGERY CHILD -CERVICAL SPINE AND LUMBAR SPINE SURGERIES -LEFT FOOT FRACTURE/ ORIF -SKIN CANCER REMOVAL -APPENDECTOMY (PAVAN FINE MED STUDENT) Physical Exam Vital Signs Vital Signs - First Documented 04/20/21 14:31 Temp 35.8 Pulse 56 Resp 18 B/P (MAP) 148/82 (104) Pulse Ox 93 O2 Delivery Room Air (NADINE WHEAT MD) Vital Signs Capillary Refill : (PAVAN FINE STUDENT) Height, Weight, BMI Height: 6'1.00" Weight: 195lbs. 0oz. 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 Tested, Other (Normal finger-nose and heel-goodman testing, obvious weakness in R extremities which is chronic.) Skin: Normal Color, Warm/Dry (PAVAN FINE STUDENT) General Appearance: No Apparent Distress, Chronically ill HEENT: No Pharyngeal Erythema; Other (Mucous membranes dry) Neck: Full Range of Motion, Non Tender, Supple Respiratory: Lungs Clear, Normal Breath Sounds Cardiovascular: Regular Rate, Rhythm, No Murmur Gastrointestinal: Non Tender, Soft Back: No CVA Tenderness (L), No CVA Tenderness (R) Extremity: Non Tender, No Calf Tenderness, No Pedal Edema Neurologic/Psychiatric: Alert, 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, 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 Norm as Tested, Other (Normal finger-nose and heel-goodman testing, obvious weakness in R extremities which is chronic.) Skin: Normal Color, Warm/Dry (NADINE WHEAT MD) Progress/Results/Core Measures Suspected Sepsis SIRS Temperature: Pulse: 56 Respiratory Rate: 18 Laboratory Tests 04/20/21 14:31: White Blood Count 9.8 Blood Pressure 148 /82 Mean: 104 Laboratory Tests 04/20/21 14:31: Platelet Count 152 (PAVAN FINE MED STUDENT) Results/Orders Lab Results Laboratory Tests Test 04/20/21 14:31 04/20/21 15:21 04/20/21 16:23 Range/Units White Blood Count 9.8 4.3-11.0 10^3/uL Red Blood Count 3.60 L 4.30-5.52 10^6/uL Hemoglobin 11.0 L 13.3-17.7 g/dL Hematocrit 34 L 40-54 % Mean Corpuscular Volume 93 80-99 fL Mean Corpuscular Hemoglobin 31 25-34 pg Mean Corpuscular Hemoglobin Concent 33 32-36 g/dL Red Cell Distribution Width 13.6 10.0-14.5 % Platelet Count 152 130-400 10^3/uL Mean Platelet Volume 11.6 9.0-12.2 fL Immature Granulocyte % (Auto) 0 % Neutrophils (%) (Auto) 62 42-75 % Lymphocytes (%) (Auto) 25 12-44 % Monocytes (%) (Auto) 9 0-12 % Eosinophils (%) (Auto) 3 0-10 % Basophils (%) (Auto) 1 0-10 % Neutrophils # (Auto) 6.1 1.8-7.8 10^3/uL Lymphocytes # (Auto) 2.4 1.0-4.0 10^3/uL Monocytes # (Auto) 0.9 0.0-1.0 10^3/uL Eosinophils # (Auto) 0.3 0.0-0.3 10^3/uL Basophils # (Auto) 0.1 0.0-0.1 10^3/uL Immature Granulocyte # (Auto) 0.0 0.0-0.1 10^3/uL Sodium Level 142 135-145 MMOL/L Potassium Level 3.7 3.6-5.0 MMOL/L Chloride Level 107 98-107 MMOL/L Carbon Dioxide Level 24 21-32 MMOL/L Anion Gap 11 5-14 MMOL/L Blood Urea Nitrogen 17 7-18 MG/DL Creatinine 1.25 0.60-1.30 MG/DL Estimat Glomerular Filtration Rate 65 BUN/Creatinine Ratio 14 Glucose Level 91 70-105 MG/DL Calcium Level 9.4 8.5-10.1 MG/DL Corrected Calcium 9.6 8.5-10.1 MG/DL Magnesium Level 2.2 1.6-2.4 MG/DL Total Bilirubin 1.3 H 0.1-1.0 MG/DL Aspartate Amino Transf (AST/SGOT) 12 5-34 U/L Alanine Aminotransferase (ALT/SGPT) 13 0-55 U/L Alkaline Phosphatase 68 40-136 U/L Troponin I < 0.028 <0.028 NG/ML C-Reactive Protein High Sensitivity 0.63 H 0.00-0.50 MG/DL Total Protein 6.5 6.4-8.2 GM/DL Albumin 3.8 3.2-4.5 GM/DL Urine Color YELLOW Urine Clarity CLEAR Urine pH 6.5 5-9 Urine Specific [place] <=1.005 1.016-1.022 Urine Protein NEGATIVE NEGATIVE Urine Glucose (UA) NEGATIVE NEGATIVE Urine Ketones NEGATIVE NEGATIVE Urine Nitrite NEGATIVE NEGATIVE Urine Bilirubin NEGATIVE NEGATIVE Urine Urobilinogen 0.2 < = 1.0 MG/DL Urine Leukocyte Esterase NEGATIVE NEGATIVE Urine RBC (Auto) NEGATIVE NEGATIVE Urine RBC NONE /HPF Urine WBC NONE /HPF Urine Squamous Epithelial Cells RARE /HPF Urine Crystals NONE /LPF Urine Bacteria TRACE /HPF Urine Casts NONE /LPF Urine Mucus NEGATIVE /LPF Urine Culture Indicated NO (NADINE WHEAT MD) My Orders Orders - NADINE WHEAT MD Ekg Tracing (04/20/21 14:51) Monitor-Rhythm Ecg Trace Only (04/20/21 14:51) Chest 1 View, Ap/Pa Only (04/20/21 14:51) Cbc With Automated Diff (04/20/21 14:51) Comprehensive Metabolic Panel (04/20/21 14:51) Hs C Reactive Protein (04/20/21 14:51) Magnesium (04/20/21 14:51) Troponin I Chip (04/20/21 14:51) Ua Culture If Indicated (04/20/21 14:51) Ns Iv 500 Ml (Sodium Chloride 0.9%) (04/20/21 15:45) (NADINE WHEAT MD) Medications Given in ED Current Medications Medications Dose Ordered Sig/Lindsey Route Start Time Stop Time Status Last Admin Dose Admin Sodium Chloride 500 ml @ 0 mls/hr Q0M ONCE IV 04/20/21 15:45 04/20/21 15:46 DC 04/20/21 15:45 0 MLS/HR (NADINE WHEAT MD) Vital Signs/I&O 04/20/21 04/20/21 04/20/21 04/20/21 14:31 15:04 15:49 16:48 Temp 35.8 Pulse 56 52 54 64 Resp 18 16 18 18 B/P (MAP) 148/82 (104) 152/82 176/100 184/92 Pulse Ox 93 98 97 97 O2 Delivery Room Air Room Air Room Air Room Air (NADINE WHEAT MD) Vital Signs/I&O Capillary Refill : (PAVAN FINE MED STUDENT) Blood Pressure Mean: 104 Progress Note : Time: 15:00 Progress Note Have seen and examined patient. He does not remember what happened, hx from EMS. His sugar is 115 and pressure in the 140s after fluids. He does compplain of L side rib pain due to breaking his ribs a few weeks prior. Will check CXR to see if there is any atelectasis/PNA that could have resulted. Also checking urine as a possible source of infection. ECG did not show arrythmia or ST changes. Will get a troponin to further rule out cardiac cause. Checking CBC, CMP, CRP, MAG. (PAVAN IFNE MED STUDENT) Progress Note : Progress Note I have seen and evaluated the patient and agree with above except as indicated. Directed the plan of care. EMS was summoned to the home for unresponsive male. Apparently he passed out and was sitting in a chair. He was eased to the ground by family. No injury. Patient has done this previously. On EMS arrival he very difficult to understand speech and was quite groggy. Initial blood pressure 50s systolic. They did initiate IV and started IV fluid. This fluid was administered, patient status became much better and ultimately after 500 mL return to normal status. Does have chronic right-sided deficit from previous strokes. He was previously in the [facility] but was discharged about March 23 back to home per patient and family request. He has been subsequently seen for dehydration with similar presentation since. Patient states he thinks he was dehydrated. He knows the, place and situation but does not remember the events but does remember before and after. No new deficits reported. Daughter arrives states that he is more normal with mentation currently. EMS also stated the same and has seen him several times. He denies fever chills. Denies chest pain other than the left lateral rib pain after fall several weeks ago with known left rib fracture. Has chronic cough. He is smoking cigarettes again. Denies drugs or alcohol. Evaluation as above. Plan we will check labs, EKG and chest x-ray and monitor patient. 1545: Added normal saline 500 mL bolus. Patient remains normotensive with normal mentation. Monitor patient. 1700: Remained stable throughout ED stay. No acute findings on labs. No hypotension noted here. Unsure if this is TIA versus dehydration but tends towards dehydration at this point. He has had that previously. Discharged home with return precautions. Patient verbalized understanding instructions and agreement with plan (NADINE WHEAT MD) ECG Initial ECG Impression Date: Apr 20, 2021 Initial ECG Impression Time: 14:38 Initial ECG Rate: 53 Initial ECG Rhythm: S.Subhash Comment Sinus rhythm with bradycardic rate and rightward axis. LVH noted with interventricular conduction delay. No evidence of ST elevation [place]. Similar to previous of 01/06/2021. Interpreted by me. (NADINE WHEAT MD) Diagnostic Imaging Diagonstic Imaging: Xray Plain Films/CT/US/NM/MRI: chest Comments [facility] [place], [place] NAME: CRISTI KRISHNAMURTHY [facility] REC#: [id number] PT STATUS: REG ER : 1955 PHYSICIAN: NADINE WHEAT MD ADMIT DATE: 04/20/21/ER Draft Date of Exam:04/20/21 CHEST 1 VIEW, AP/PA ONLY INDICATION: Hypotension, left-sided pain. COMPARISON: April 02, 2021, January 04, 2021, and June 08, 2020. TECHNIQUE: Single radiograph of the chest dated April 20, 2021. FINDINGS: The cardiac silhouette is borderline enlarged. No significant pulmonary vascular congestion. Decreased lung volumes with persistent left greater than right predominantly interstitial opacities. These findings appear relatively stable when accounting for differences in positioning and technique. No large-volume pleural effusion. No pneumothorax. No acute osseous abnormality. Postsurgical changes within the cervical spine again seen. IMPRESSION: Persistently low lung volumes with persistent bibasilar pneumonitis and/or atelectasis. Borderline cardiomegaly. Dictated on workstation # [id number] Dict: 04/20/21 1511 Trans: 04/20/21 1519 [id number] Interpreted by: RODRIGO KHAN MD Electronically signed by: (NADINE WHEAT MD) Departure Impression Primary Impression: Transient hypotension Additional Impressions: TIA (transient ischemic attack) Dehydration Disposition: 01 HOME, SELF-CARE Condition: Improved Departure-Patient Inst. Decision time for Depature: 17:04 (NADINE WHEAT MD) Referrals: YUMIKO HERNANDEZ MD (PCP/Family) Primary Care Physician Patient Instructions: Dehydration, Adult (DC), Orthostatic Hypotension (DC), Transient Ischemic Attack (DC) Add. Discharge Instructions: All discharge instructions reviewed with patient and/or family. Voiced understanding. It is very important that you follow-up with your doctor in the next few days for recheck and further evaluation. Drink plenty of fluids. You should quit smoking. Take your medications as directed. Return for worse pain, fever, vomiting, weakness, breathing problems or other concerns as needed. Work/School Note: Family Work Note Patient Received Medical Care In the Emergency Department On: Apr 20, 2021 Patient Will Be Able to Return to Work/School On: Apr 21, 2021 Patient Restrictions: Please excuse May as she was with her father in the emergency department PAVAN FINE MED STUDENT Apr 20, 2021 14:57 NADINE WHEAT MD Apr 20, 2021 15:50
[2021-04-20 14:59] LABS: BASOPHILS # (AUTO) 0.1 10^3/uL (0.0-0.1); BASOPHILS % (AUTO) 1 % (0-10); EOSINOPHILS # (AUTO) 0.3 10^3/uL (0.0-0.3); EOSINOPHILS % (AUTO) 3 % (0-10); HEMATOCRIT 34 % (40-54); LYMPHOCYTES # (AUTO) 2.4 10^3/uL (1.0-4.0); LYMPHOCYTES % (AUTO) 25 % (12-44); MEAN CORPUSCULAR HEMOGLOBIN 31 pg (25-34); MEAN CORPUSCULAR HGB CONC 33 g/dL (32-36); MEAN CORPUSCULAR VOLUME 93 fL (80-99); MEAN PLATELET VOLUME 11.6 fL (9.0-12.2); MONOCYTES # (AUTO) 0.9 10^3/uL (0.0-1.0); MONOCYTES % (AUTO) 9 % (0-12); NEUTROPHILS # (AUTO) 6.1 10^3/uL (1.8-7.8); NEUTROPHILS % (AUTO) 62 % (42-75); PLATELET COUNT 152 10^3/uL (130-400); WHITE BLOOD COUNT 9.8 10^3/uL (4.3-11.0)
--- NOTE | 2021-04-20 15:19 | Diagnostic Imaging Report ---
INDICATION: Hypotension, left-sided pain. COMPARISON: April 02, 2021, January 04, 2021, and June 08, 2020. TECHNIQUE: Single radiograph of the chest dated April 20, 2021. FINDINGS: The cardiac silhouette is borderline enlarged. No significant pulmonary vascular congestion. Decreased lung volumes with persistent left greater than right predominantly interstitial opacities. These findings appear relatively stable when accounting for differences in positioning and technique. No large-volume pleural effusion. No pneumothorax. No acute osseous abnormality. Postsurgical changes within the cervical spine again seen. IMPRESSION: Persistently low lung volumes with persistent bibasilar pneumonitis and/or atelectasis. Borderline cardiomegaly. Dictated by: Dictated on workstation # [id number]
[2021-04-20] MEDS ORDERED: NS IV 500 ML 500 ML IV ONE (15:45)
[2021-04-20 15:49] LABS: ALBUMIN 3.8 GM/DL (3.2-4.5); CHLORIDE 107 MMOL/L (98-107); POTASSIUM 3.7 MMOL/L (3.6-5.0); SODIUM 142 MMOL/L (135-145)
[2021-04-20 15:50] LABS: CALCIUM 9.4 MG/DL (8.5-10.1)
[2021-04-20 15:52] LABS: GLUCOSE 91 MG/DL (70-105); TOTAL PROTEIN 6.5 GM/DL (6.4-8.2)
[2021-04-20 15:53] LABS: BILIRUBIN,TOTAL 1.3 MG/DL (0.1-1.0); CARBON DIOXIDE 24 MMOL/L (21-32)
[2021-04-20 15:55] LABS: ALKALINE PHOSPHATASE 68 U/L (40-136); CREATININE SERUM 1.25 MG/DL (0.60-1.30); GFR ESTIMATED 65
[2021-04-20 15:56] LABS: BUN/CREATININE RATIO 14
[2021-04-20 15:58] LABS: ALANINE AMINOTRANSFERASE 13 U/L (0-55); MAGNESIUM 2.2 MG/DL (1.6-2.4)
[2021-04-20 16:27] LABS: BILIRUBIN,URINE NEGATIVE (NEGATIVE); CLARITY,URINE CLEAR; COLOR,URINE YELLOW; GLUCOSE, URINE (UA) NEGATIVE (NEGATIVE); KETONES,URINE NEGATIVE (NEGATIVE); LEUKOCYTE ESTERASE ,URINE NEGATIVE (NEGATIVE); NITRITE,URINE NEGATIVE (NEGATIVE); PH,URINE 6.5 (5-9); PROTEIN,URINE NEGATIVE (NEGATIVE)
[2021-04-20 16:36] LABS: BACTERIA,URINE TRACE /HPF; SQUAMOUS EPITHELIAL CELL,UR RARE /HPF
[2021-04-20 17:08] VITALS: BP 135/96
== END 2021-04-20 17:08 | disposition home or self-care (01) ==
LOC: EDUNIT# 14:27 → ER 14:28
DX: I95.9 Hypotension, unspecified (principal); G45.9 Transient cerebral ischemic attack, unspecified; E86.0 Dehydration
CPT/HCPCS: 36415; 71045; 80053; 81000; 83735; 84484; 85025; 86141; 93005; 93041

== ENCOUNTER 2021-04-26 01:23 | Observation (INO) | payer OTHER ==
[~2021-04-26] VITALS: Ht 188 cm; Wt 79.9 kg
--- NOTE | 2021-04-26 01:40 | ED General ---
General Stated Complaint: DIZZINESS Source of Information: Patient (LIMITED HISTORIAN), Old Records History of Present Illness Date Seen by Provider: Apr 26, 2021 Time Seen by Provider: 01:28 Initial Comments PT ARRIVES VIA EMS FROM HOME--LIVES ALONE PT C/O DIZZINESS STATES HE WAS SITTING IN HIS WHEELCHAIR, AND GOT UP TO GO TO BATHROOM AND FELT DIZZY--BEGAN ABOUT AN HOUR AGO PT STATES THAT HE GETS LIKE THIS WHEN HE GETS DEHYDRATED PT STATES HE HAD A LITTLE BIT OF LEFT OVER PIZZA AND 2 CANS OF [place] DEW TODAY. NO OTHER ORAL INTAKE--"JUST DIDN'T" PT STATES HE HAS TAKEN HIS REGULAR MEDICATION PRESCRIBED, AND HAS NOT HAD ANY CHANGES IN HIS MEDICATIONS STATES HE IS URINATING NORMALLY NO SYNCOPE AND OTHER COMPLAINTS BP 90'S-100 SYSTOLIC FOR EMS PT WITH A MULTITUDE OF VISITS FOR VARIOUS COMPLAINTS, BUT HAS HAD SEVERAL VISITS/ADMITS FOR SAME COMPLAINTS OF DIZZINESS/HYPOTENSION/DEHYDRATION LAST VISIT HERE WAS 04/20/21 FOR HYPOTENSION--TREATED AND RELEASED ADMITTED 04/01-04/03 FOR DEHYDRATION/HYPOTENSION PT WITH HISTORY OF TIA'S AND CVA WITH RIGHT SIDED WEAKNESS. PT HAS BEEN A RESIDENT AT [facility], PT STATES HE LEFT THERE AND MOVED BACK HOME ON 03/23/21 PT WITH HISTORY OF SMOKING CIGARETTES AND MARIJUANA AND METHAMPHETAMINE USE, WELL ALCOHOL USE PT WITH HISTORY OF CAD AND PAD PCP: GOES TO [facility] IN [place] AND --PCP THERE IS DR. YUMIKO HERNANDEZ Allergies and Home Medications Allergies Coded Allergies: No Known Drug Allergies (Unverified , 03/13/18) Patient Home Medication List Home Medication List Reviewed: Yes Acetaminophen (Tylenol 8 Hour) 650 Mg Tablet.er, 650 MG PO Q4H PRN for PAIN-MILD (1-4), (Reported) Entered as Reported by: RENNY STEPHENS on 01/05/21 0928 Albuterol Sulfate (Proair Hfa) 1 Puff Puff, 2 PUFF IH Q6H PRN for SHORTNESS OF BREATH, (Reported) Entered as Reported by: ANNA KOVACS on 10/19/20 1328 Amlodipine Besylate (Amlodipine Besylate) 5 Mg Tablet, 2.5 MG PO DAILY, (Reported) Entered as Reported by: RENNY STEPHENS on 04/02/21 1424 Aspirin (Aspirin EC) 325 Mg Tablet.dr, 325 MG PO DAILY, (Reported) Entered as Reported by: ANNA KOVACS on 10/19/20 1328 Atorvastatin Calcium (Atorvastatin Calcium) 80 Mg Tablet, 80 MG PO HS, (Reported) Entered as Reported by: RENNY STEPHENS on 04/28/20 1607 Baclofen (Baclofen) 10 Mg Tablet, 10 MG PO Q8H PRN for MUSCLE SPASMS, (Reported) Entered as Reported by: LEYLA ESPINOZA on 03/13/18 1354 Bupropion HCl (Bupropion HCl Sr) 150 Mg Tablet.er, 150 MG PO BID, (Reported) Entered as Reported by: RENNY STEPHENS on 01/05/21 09 Cefdinir (Cefdinir) 300 Mg Capsule, 300 MG PO BID Prescribed by: PRUDENCE BECK on 04/03/21 122 Celecoxib (Celebrex) 200 Mg Capsule, 200 MG PO DAILY, (Reported) Entered as Reported by: RENNY STEPHENS on 01/05/21 0928 Cholecalciferol (Vitamin D3) (Vitamin D3) 50 Mcg Tablet, 50 MCG PO DAILY, (Reported) Entered as Reported by: ANNA KOVACS on 10/19/20 1328 Clopidogrel Bisulfate (Plavix) 75 Mg Tablet, 75 MG PO DAILY, (Reported) Entered as Reported by: LEYLA ESPINOZA on 03/13/18 1354 Fluticasone Propionate (Fluticasone Propionate) 16 Gm Xenia.susp, 2 SPRAYS NSEACH DAILY, (Reported) Entered as Reported by: ANNA KOVACS on 10/19/20 1328 Gabapentin (Neurontin) 300 Mg Capsule, 900 MG PO TID, (Reported) Entered as Reported by: ANNA KOVACS on 10/19/20 1328 Lisinopril (Lisinopril) 40 Mg Tablet, 20 MG PO DAILY, (Reported) Entered as Reported by: ANNA KOVACS on 10/19/20 1328 Loratadine (Loratadine) 10 Mg Tablet, 10 MG PO DAILY Prescribed by: PRUDENCE BECK on 04/03/21 1225 Montelukast Sodium (Montelukast Sodium) 10 Mg Tablet, 10 MG PO HS Prescribed by: PRUDENCE BECK on 04/03/21 1225 Na Phos,M-B/Na Phos,Di-Ba (Fleet Enema) 133 Ml Enema, 133 ML RC DAILY PRN Prescribed by: KATHIE JARRETT on 04/11/21 1633 Oxycodone HCl/Acetaminophen (Oxycodone-Acetaminophen 10-325) 1 Each Tablet, 1 EA PO Q8H PRN for PAIN-MODERATE (5-7) Prescribed by: PRUDENCE BECK on 04/03/21 1225 Polyethylene Glycol 3350 (Miralax) 119 Gm Powder, 17 GM PO TID PRN for CONSTIPATION-1ST LINE Prescribed by: KATHIE JARRETT on 04/11/21 1633 Prednisone (Prednisone) 10 Mg Tab.ds.pk, 10 MG PO DAILY Prescribed by: PRUDENCE BECK on 04/03/21 1225 Review of Systems Review of Systems Constitutional: dizziness Past Ewdjxnl-Ejnafn-Qapohy Hx Patient Social History Tobacco Use?: Yes Tobacco type used: Cigarettes Smoking Status: Current Everyday Smoker Substance use?: Yes Substance type: Methamphetamine Alcohol Use?: Yes Alcohol Frequency: Daily Immunizations Up To Date Tetanus Booster (TDap): Less than 5yrs First/Initial COVID19 Vaccinat: UNK Second COVID19 Vaccination Oskar: UNK Third COVID19 Vaccination Date: Unsure of date of 1 dose Seasonal Allergies Seasonal Allergies: No Past Medical History Surgeries: Yes (EYES;C+L SPINE;CARDIAC CATHS-STENTS X3;BILAT CAROTID ENDART;FOOT;SKIN CA) Angioplasty, Appendectomy, Cardiac, Coronary Stent, Eye Surgery, Orthopedic, Vascular Surgery Respiratory: Yes Pneumonia, Chronic Bronchitis, COPD, Emphysema Currently Using CPAP: No Currently Using BIPAP: No Cardiac: Yes (CARDIAC CATHS-STENTS X3; BILAT CAROTID ENDARTERECTOMIES;R CAROTID STENT) Coronary Artery Disease, High Cholesterol, Hypertension, Peripheral Vascular Neurological: Yes (stroke Jan 20, 2020-RIGHT SIDE PARALYSI, R sided stent placed; TIA 03/23/20) Neuropathy, Stroke Reproductive Disorders: No Sexually Transmitted Disease: No HIV/AIDS: No Genitourinary: No Benign Prostatic Hyperpl, Renal Failure Gastrointestinal: Yes (HEPATITIS C--S/P TREATMENT) Gastroesophageal Reflux Musculoskeletal: Yes (CHRONIC NECK AND BACK PAIN-S/P C-SPINE + L-SPINE SURGERY; L FOOT FX/ORIF) Chronic Back Pain Endocrine: No HEENT: Yes (READING GLASSES;EYE SURGERY CHILD) Loss of Vision: Bilateral Hearing Impairment: Hard of Hearing Cancer: Yes Skin Did You Recieve Any Treatments: Yes What Type of Treatment Did You: Surgical Intervention Psychosocial: Yes (SUBSTANCE ABUSE) Anxiety, Violent Behavior, Depression Integumentary: Yes (SKIN CANCER-GETS BLISTERS) Recent Skin Changes Blood Disorders: No Adverse Reaction/Blood Tranf: No Family Medical History Cancer 19 FATHER (SKIN) 19 MOTHER Cancer of colon 19 MOTHER Kidney disease 19 FATHER (PASSED KIDNEY FAILURE) SOCIAL HISTORY: -ETOH--OCCASIONAL USE, HX OF HEAVY USE -DRUGS--DAILY MARIJUANA USE, ALSO METH USE. DENIES IV DRUG USE -SMOKES 2 PPD PAST SURGICAL HISTORY: -LAST CARDIAC CATH DONE HERE IN 2013--PATENT STENTS -CARDIAC CATHS WITH STENTS X 3 -BILATERAL CAROTID ENDARTERECTOMY -RIGHT CAROTID STENT 01/21/20 AT -RIGHT EYE SURGERY CHILD -CERVICAL SPINE AND LUMBAR SPINE SURGERIES -LEFT FOOT FRACTURE/ ORIF -SKIN CANCER REMOVAL -APPENDECTOMY -STRESS TEST 01/05/[address] ALVAREZ: 1. Patient tolerated Lexiscan well, and transient episode of hypotension, responded to IV fluid 2. Diaphragmatic attenuation with no significant ischemia or infarction on SPECT images 3. Normal left ventricular size, EF 66% Physical Exam Vital Signs Vital Signs - First Documented 04/26/21 01:43 Temp 36.5 Pulse 61 Resp 20 B/P (MAP) 92/67 (75) O2 Delivery Room Air Capillary Refill : Height, Weight, BMI Height: 6'1.00" Weight: 195lbs. 0oz. 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 Norm as Tested, Other (RIGHT SIDE WEAKNESS--CHRONIC FROM PRIOR CVA) Skin: Normal Color, Warm/Dry Progress/Results/Core Measures Suspected Sepsis SIRS Temperature: Pulse: Respiratory Rate: Laboratory Tests 04/26/21 01:36: White Blood Count 10.8 Blood Pressure / Mean: Laboratory Tests 04/26/21 01:36: Creatinine 1.29, INR Comment 1.0, Platelet Count 157, Total Bilirubin 0.9 Results/Orders Lab Results Laboratory Tests Test 04/26/21 01:36 04/26/21 01:42 04/26/21 01:56 04/26/21 02:50 Range/Units White Blood Count 10.8 4.3-11.0 10^3/uL Red Blood Count 4.39 4.30-5.52 10^6/uL Hemoglobin 13.3 # 13.3-17.7 g/dL Hematocrit 41 40-54 % Mean Corpuscular Volume 92 80-99 fL Mean Corpuscular Hemoglobin 30 25-34 pg Mean Corpuscular Hemoglobin Concent 33 32-36 g/dL Red Cell Distribution Width 13.4 10.0-14.5 % Platelet Count 157 130-400 10^3/uL Mean Platelet Volume 10.5 9.0-12.2 fL Immature Granulocyte % (Auto) 0 % Neutrophils (%) (Auto) 65 42-75 % Lymphocytes (%) (Auto) 22 12-44 % Monocytes (%) (Auto) 9 0-12 % Eosinophils (%) (Auto) 3 0-10 % Basophils (%) (Auto) 1 0-10 % Neutrophils # (Auto) 6.4 1.8-7.8 10^3/uL Lymphocytes # (Auto) 2.1 1.0-4.0 10^3/uL Monocytes # (Auto) 0.9 0.0-1.0 10^3/uL Eosinophils # (Auto) 0.3 0.0-0.3 10^3/uL Basophils # (Auto) 0.1 0.0-0.1 10^3/uL Immature Granulocyte # (Auto) 0.0 0.0-0.1 10^3/uL Prothrombin Time 13.2 12.2-14.7 SEC INR Comment 1.0 0.8-1.4 Activated Partial Thromboplast Time 26 24-35 SEC Sodium Level 141 135-145 MMOL/L Potassium Level 4.7 3.6-5.0 MMOL/L Chloride Level 107 98-107 MMOL/L Carbon Dioxide Level 20 L 21-32 MMOL/L Anion Gap 14 5-14 MMOL/L Blood Urea Nitrogen 20 H 7-18 MG/DL Creatinine 1.29 0.60-1.30 MG/DL Estimat Glomerular Filtration Rate 62 BUN/Creatinine Ratio 16 Glucose Level 106 H 70-105 MG/DL Calcium Level 9.6 8.5-10.1 MG/DL Corrected Calcium 9.6 8.5-10.1 MG/DL Magnesium Level 2.2 1.6-2.4 MG/DL Total Bilirubin 0.9 0.1-1.0 MG/DL Aspartate Amino Transf (AST/SGOT) 17 5-34 U/L Alanine Aminotransferase (ALT/SGPT) 14 0-55 U/L Alkaline Phosphatase 76 40-136 U/L Total Creatine Kinase 86 30-200 U/L Creatine Kinase MB 2.2 <6.6 NG/ML Troponin I < 0.028 <0.028 NG/ML Total Protein 6.7 6.4-8.2 GM/DL Albumin 4.0 3.2-4.5 GM/DL Amylase Level 75 25-125 U/L Lipase 34 8-78 U/L TSH [place] Testing 2.00 0.35-4.94 UIU/ML Acetaminophen Level < 10 L 10-30 UG/ML Serum Alcohol < 10 <10 MG/DL Glucometer 100 70-110 MG/DL B-Type Natriuretic Peptide 21.6 <100.0 PG/ML Urine Color YELLOW Urine Clarity CLEAR Urine pH 6.0 5-9 Urine Specific Crum 1.025 H 1.016-1.022 Urine Protein NEGATIVE NEGATIVE Urine Glucose (UA) NEGATIVE NEGATIVE Urine Ketones NEGATIVE NEGATIVE Urine Nitrite NEGATIVE NEGATIVE Urine Bilirubin 1+ H NEGATIVE Urine Urobilinogen 1.0 < = 1.0 MG/DL Urine Leukocyte Esterase NEGATIVE NEGATIVE Urine RBC (Auto) NEGATIVE NEGATIVE Urine RBC NONE /HPF Urine WBC NONE /HPF Urine Squamous Epithelial Cells 0-2 /HPF Urine Crystals NONE /LPF Urine Bacteria NEGATIVE /HPF Urine Casts PRESENT /LPF Urine Hyaline Casts 5-10 H /LPF Urine Mucus MODERATE H /LPF Urine Culture Indicated NO Urine Opiates Screen NEGATIVE NEGATIVE Urine Oxycodone Screen NEGATIVE NEGATIVE Urine Methadone Screen NEGATIVE NEGATIVE Urine Propoxyphene Screen NEGATIVE NEGATIVE Urine Barbiturates Screen NEGATIVE NEGATIVE Ur Tricyclic Antidepressants Screen NEGATIVE NEGATIVE Urine Phencyclidine Screen NEGATIVE NEGATIVE Urine Amphetamines Screen NEGATIVE NEGATIVE Urine Methamphetamines Screen NEGATIVE NEGATIVE Urine Benzodiazepines Screen NEGATIVE NEGATIVE Urine Cocaine Screen NEGATIVE NEGATIVE Urine Cannabinoids Screen POSITIVE H NEGATIVE My Orders Orders - ABDELRAHMANTRISTAN Guerrero DO Accucheck Stat ONCE (04/26/21:26) Ed Iv/Invasive Line Start (04/26/21:) Ekg Tracing (04/26/21) Monitor-Rhythm Ecg Trace Only (04/26/21:) Orthostatic Vital Signs (Adult (04/26/21:26) Ct Head Wo-R/O Stroke (04/26/21) Acetaminophen (04/26/21) Alcohol (04/26/21:) Amylase (04/26/21) Bnp Chip (04/26/21) Cbc With Automated Diff (04/26/21) Comprehensive Metabolic Panel (04/26/21) Creatine Kinase (04/26/21) Creatine Kinase Mb (04/26/21) Drug Screen Stat (Urine) (04/26/21) Lipase (04/26/21:) Magnesium (04/26/21:) Protime With Inr (04/26/21) Partial Thromboplastin Time (04/26/21:) Thyroid Analyzer (04/26/21) Ua Culture If Indicated (04/26/21:) Troponin I [place] (04/26/21:) Ed Iv/Invasive Line Start (04/26/21 01:32) Lactated Ringers (Lr 1000 Ml Iv Solution (04/26/21 01:45) Chest 1 View, Ap/Pa Only (04/26/21 01:45) Straight Cath For Spec.-Adult (04/26/21 02:47) Medications Given in ED Current Medications Medications Dose Ordered Sig/Lindsey Route Start Time Stop Time Status Last Admin Dose Admin Lactated Ringer's 1,000 ml @ 0 mls/hr Q0M ONCE IV 04/26/21 01:45 04/26/21 01:46 DC 04/26/21 01:51 0 MLS/HR Vital Signs/I&O 04/26/21 01:43 Temp 36.5 Pulse 61 Resp 20 B/P (MAP) 92/67 (75) O2 Delivery Room Air Capillary Refill : Progress Note : Progress Note INITIAL BP'S 92, THEN 88, THEN 102 SYSTOLIC--PRIOR TO ANY FLUIDS GIVEN BP REMAINED > 100 SYSTOLIC FOR REMAINDER OF ER STAY HR IN 50'S-60'S PT SLEPT / RESTED QUIETLY FOR ENTIRE ER STAY--VERY DROWSY, REQUIRES VERBAL AND TACTILE STIMULI TO WAKEN, THEN QUICKLY GOES BACK TO SLEEP. ECG Initial ECG Impression Date: Apr 26, 2021 Initial ECG Impression Time: 01:29 Initial ECG Rate: 61 Initial ECG Rhythm: Normal Sinus Diagnostic Imaging Comments CXR--NO ACUTE PROCESS, PENDING RADIOLOGIST REVIEW CT HEAD--NO ACUTE PROCESS, OLD INFARCTS UNCHANGED--PER [facility] RADIOLOGIST VIA PHONE AND VIA FAX AT [phone] Reviewed: Reviewed by Me, Discussed w/Radiologist Departure Communication (Admissions) 0330--SPOKE WITH DR. FALLON, HOSPITALIST, ACCEPTS PT FOR ADMIT Impression Primary Impression: Hypotension Additional Impressions: Dehydration HX OF CVA WITH RIGHT SIDE WEAKNESS HX OF CAD AND PAD Marijuana use, continuous Very heavy cigarette smoker Disposition: ADMITTED INPATIENT Condition: Stable Admissions Decision to Admit Reason: Admit from ER (General) Decision to Admit/Date: Apr 26, 2021 Time/Decision to Admit Time: 03:30 Departure-Patient Inst. Referrals: YUMIKO HERNANDEZ MD (PCP/Family) Primary Care Physician TRISTAN QUICK DO Apr 26, 2021 01:40
[2021-04-26] MEDS ORDERED: LACTATED RINGERS 1,000 ML IV ONE (01:45)
[2021-04-26 01:46] LABS: BASOPHILS # (AUTO) 0.1 10^3/uL (0.0-0.1); BASOPHILS % (AUTO) 1 % (0-10); EOSINOPHILS # (AUTO) 0.3 10^3/uL (0.0-0.3); EOSINOPHILS % (AUTO) 3 % (0-10); LYMPHOCYTES # (AUTO) 2.1 10^3/uL (1.0-4.0); LYMPHOCYTES % (AUTO) 22 % (12-44); MEAN CORPUSCULAR HGB CONC 33 g/dL (32-36); MEAN CORPUSCULAR VOLUME 92 fL (80-99); MEAN PLATELET VOLUME 10.5 fL (9.0-12.2); MONOCYTES # (AUTO) 0.9 10^3/uL (0.0-1.0); MONOCYTES % (AUTO) 9 % (0-12); NEUTROPHILS # (AUTO) 6.4 10^3/uL (1.8-7.8); NEUTROPHILS % (AUTO) 65 % (42-75)
[2021-04-26 01:47] LABS: WHITE BLOOD COUNT 10.8 10^3/uL (4.3-11.0)
[2021-04-26 01:48] LABS: HEMATOCRIT 41 % (40-54); HEMOGLOBIN 13.3 g/dL (13.3-17.7); MEAN CORPUSCULAR HEMOGLOBIN 30 pg (25-34); PLATELET COUNT 157 10^3/uL (130-400)
[2021-04-26 01:56] LABS: CHLORIDE 107 MMOL/L (98-107); POTASSIUM 4.7 MMOL/L (3.6-5.0); SODIUM 141 MMOL/L (135-145)
[2021-04-26 01:58] LABS: AMYLASE 75 U/L (25-125); CALCIUM 9.6 MG/DL (8.5-10.1)
[2021-04-26 01:59] LABS: GLUCOSE 106 MG/DL (70-105); PROTHROMBIN TIME PATIENT 13.2 SEC (12.2-14.7); TOTAL PROTEIN 6.7 GM/DL (6.4-8.2)
[2021-04-26 02:00] LABS: CARBON DIOXIDE 20 MMOL/L (21-32)
[2021-04-26 02:01] LABS: BILIRUBIN,TOTAL 0.9 MG/DL (0.1-1.0)
[2021-04-26 02:02] LABS: ALKALINE PHOSPHATASE 76 U/L (40-136)
[2021-04-26 02:03] LABS: CREATININE SERUM 1.29 MG/DL (0.60-1.30); GFR ESTIMATED 62
[2021-04-26 02:04] LABS: BUN/CREATININE RATIO 16
[2021-04-26 02:05] LABS: MAGNESIUM 2.2 MG/DL (1.6-2.4)
[2021-04-26 02:06] LABS: ALANINE AMINOTRANSFERASE 14 U/L (0-55)
[2021-04-26 02:07] LABS: CREATINE KINASE 86 U/L (30-200); LIPASE 34 U/L (8-78)
[2021-04-26 02:13] LABS: CREATINE KINASE MB 2.2 NG/ML (<6.6)
[2021-04-26 02:22] LABS: ACETAMINOPHEN < 10 UG/ML (10-30)
[2021-04-26 03:00] LABS: CLARITY,URINE CLEAR; COLOR,URINE YELLOW; GLUCOSE, URINE (UA) NEGATIVE (NEGATIVE); KETONES,URINE NEGATIVE (NEGATIVE); LEUKOCYTE ESTERASE ,URINE NEGATIVE (NEGATIVE); NITRITE,URINE NEGATIVE (NEGATIVE); PROTEIN,URINE NEGATIVE (NEGATIVE)
[2021-04-26 03:19] LABS: AMPHETAMINE SCREEN, URINE NEGATIVE (NEGATIVE); BARBITURATE SCREEN URINE NEGATIVE (NEGATIVE); BENZODIAZEPINES SCREEN URINE NEGATIVE (NEGATIVE); CANNABINOID SCREEN, URINE POSITIVE (NEGATIVE); COCAINE SCREEN URINE NEGATIVE (NEGATIVE); METHADONE STAT NEGATIVE (NEGATIVE); METHAMPHETAMINE SCREEN URINE S NEGATIVE (NEGATIVE); OPIATE SCREEN URINE NEGATIVE (NEGATIVE); OXYCODONE STAT NEGATIVE (NEGATIVE); PROPOXYPHENE STAT NEGATIVE (NEGATIVE); TRICYCLIC ANTIDEPRESSANTS SCRE NEGATIVE (NEGATIVE)
[2021-04-26 03:20] LABS: BACTERIA,URINE NEGATIVE /HPF; BILIRUBIN,URINE 1+ (NEGATIVE); SQUAMOUS EPITHELIAL CELL,UR 0-2 /HPF
[2021-04-26 04:32] VITALS: BP 146/72
[2021-04-26] MEDS: LACTATED RINGERS 1,000 ML IV SCH ×3 (04:57→12:15)
--- NOTE | 2021-04-26 05:43 | Diagnostic Imaging Report ---
INDICATION: Dizziness. COMPARISON: 04/20/2021 FINDINGS: Single frontal radiographic view of the chest was obtained and demonstrates borderline enlargement of the cardiac silhouette and pulmonary vasculature. Lungs show low inspiratory volumes, but are otherwise clear. There is no focal consolidation, large effusion, or pneumothorax. Osseous structures show no acute abnormalities. IMPRESSION: 1. Borderline cardiomegaly and prominence of pulmonary vasculature. 2. No focal infiltrate. Dictated by: Dictated on workstation # [id number]
--- NOTE | 2021-04-26 07:00 | Diagnostic Imaging Report ---
PROCEDURE: CT head wo r/o stroke. TECHNIQUE: Multiple contiguous axial images were obtained through the brain without the use of intravenous contrast. Auto Exposure Controls were utilized during the CT exam to meet ALARA standards for radiation dose reduction. INDICATION: Neurological deficit. History of previous strokes. COMPARISON: 04/01/2021 FINDINGS: Again identified are moderate sized areas of encephalomalacia involving the right parieto-occipital region and superior convexity of the posterior left frontal lobe. Findings are consistent with old infarcts. There is no new loss of normal mujica-white matter junction differentiation to suggest new acute territorial infarct. There is no new mass effect or midline shift. No intra or extra-axial intracranial hemorrhage is seen. No other extra-axial masses or fluid collections are identified. Bony calvarium is intact. Paranasal sinuses show small mucosal retention cyst versus polyp within the left sphenoid sinus. Paranasal sinuses are otherwise clear, as are the mastoid air cells. IMPRESSION: 1. No new acute intracranial abnormality. No CT evidence of new acute infarct, mass, nor hemorrhage. 2. Old infarcts of the left frontal and right parieto-occipital regions. Dictated by: Dictated on workstation # [id number]
[2021-04-26 08:00] VITALS: BP 144/90
--- NOTE | 2021-04-26 10:49 | Short Stay Summary-Hospitalist ---
History of Present Illness HPI/Chief Complaint Pt is a 65yoCM known to me from multiple admissions due to previous CVA. He presented for weakness and dizziness to the ER last night. He states he had poor appetite and hadn't eaten much yesterday and then felt weak. He states he is living at home alone but has help throughout the day and feels he is doing well since leaving the NH. He was found to be hypotensive by EMS with systolic BPs in the 90s. He was admitted overnight for IVF. This morning he reports he is feeling well. He has been tot he bathroom and had a BM already. He was able to eat as well. Source: patient Date Seen 04/26/21 Time Seen by a Provider: 10:44 Attending Physician Ruthie Curtis MD PCP Mary Pérez MD Referring Physician Date of Admission Apr 26, 2021 at 03:30 Home Medications & Allergies Home Medications Reviewed patient Home Medication Reconciliation performed by pharmacy medication reconciliations auto body technician and/or nursing. Patients Allergies have been reviewed. Allergies Allergies Coded Allergies No Known Drug Allergies (Unverified03/13/18) Past Btefmlx-Hbckgk-Idasif Hx Patient Social History Tobacco Use?: Yes Tobacco type used: Cigarettes Smoking Status: Current Everyday Smoker Use of E-Cig and/or Vaping dev: Yes E-Cig or Vaping type used: Marijuana Use of E-Cig and/or Vaping Rajeev: Light User Substance use?: Yes Substance type: Methamphetamine, Nicotine, Marijuana Substance frequency: Couple times a week Alcohol Use?: Yes Alcohol type: Beer, Hard Liquor Alcohol Frequency: Daily Pt feels they are or have been: No Immunizations Up To Date Date of Influenza Vaccine: Nov 09, 2020 First/Initial COVID19 Vaccinat: 11/10 Second COVID19 Vaccination Oskar: 12/10 Tetanus Booster (TDap): Less Than 5 Years Date of Pneumonia Vaccine: June 20, 2013 Seasonal Allergies Seasonal Allergies: No Current Status Advance Directives: No Communicates: Verbally Primary Language: Chilean Preferred Spoken Language: Chilean Is interpretation needed?: No Sensory deficits: Vision impairment, Hearing impairment Implanted or Applied Medical D: Orthopedic hardware Past Medical History Surgeries: Angioplasty, Appendectomy, Cardiac, Coronary Stent, Eye Surgery, Orthopedic, Vascular Surgery Pneumonia, Chronic Bronchitis, COPD, Emphysema Currently Using CPAP: No Currently Using BIPAP: No Coronary Artery Disease, High Cholesterol, Hypertension, Peripheral Vascular Neuropathy, Stroke Sexually Transmitted Disease: No HIV/AIDS: No Benign Prostatic Hyperpl, Renal Failure Gastroesophageal Reflux Chronic Back Pain Loss of Vision: Bilateral Hearing Impairment: Hard of Hearing Skin Did You Recieve Any Treatments: Yes What Type of Treatment Did You: Surgical Intervention Anxiety, Violent Behavior, Depression Recent Skin Changes Blood Disorders: No Adverse Reaction/Blood Tranf: No Hypertension Hyperlipidemia Carotid stenosis CVA Methamphetamine use Cannabis use Tobacco abuse Family Medical History Reviewed Nursing Family Hx Cancer 19 FATHER (SKIN) 19 MOTHER Cancer of colon 19 MOTHER Kidney disease 19 FATHER (PASSED KIDNEY FAILURE) SOCIAL HISTORY: -ETOH--OCCASIONAL USE, HX OF HEAVY USE -DRUGS--DAILY MARIJUANA USE, ALSO METH USE. DENIES IV DRUG USE -SMOKES 2 PPD PAST SURGICAL HISTORY: -LAST CARDIAC CATH DONE HERE IN 2013--PATENT STENTS -CARDIAC CATHS WITH STENTS X 3 -BILATERAL CAROTID ENDARTERECTOMY -RIGHT CAROTID STENT 01/21/20 AT -RIGHT EYE SURGERY CHILD -CERVICAL SPINE AND LUMBAR SPINE SURGERIES -LEFT FOOT FRACTURE/ ORIF -SKIN CANCER REMOVAL -APPENDECTOMY -STRESS TEST 01/05/[address] ALVAREZ: 1. Patient tolerated Lexiscan well, and transient episode of hypotension, responded to IV fluid 2. Diaphragmatic attenuation with no significant ischemia or infarction on SPECT images 3. Normal left ventricular size, EF 66% Review of Systems Constitutional: see HPI, weakness EENTM: no symptoms reported Respiratory: No cough, No short of breath Cardiovascular: No chest pain, No palpitations Gastrointestinal: no symptoms reported Genitourinary: no symptoms reported Musculoskeletal: no symptoms reported Skin: no symptoms reported Psychiatric/Neurological: No Symptoms Reported Physical Exam Physical Exam Vital Signs Vital Signs - First Documented 04/26/21 04/26/21 01:43 04:22 Temp 36.5 Pulse 61 Resp 20 B/P (MAP) 92/67 (75) Pulse Ox 97 O2 Delivery Room Air Capillary Refill : Less Than 3 Seconds Height, Weight, BMI Height: 6'1.00" Weight: 195lbs. 0oz. 88.837802kv; 22.60 BMI Method:Actual General Appearance: No Apparent Distress, WD/WN, Chronically ill, Thin HEENT: PERRL/EOMI, Moist Mucous Membranes Neck: Normal Inspection, Supple Respiratory: Lungs Clear, No Accessory Muscle Use, No Respiratory Distress Cardiovascular: Regular Rate, Rhythm, No Edema, No Murmur Gastrointestinal: Normal Bowel Sounds, Non Tender, Soft Extremity: Normal Capillary Refill, Normal Inspection, Non Tender, No Pedal Edema Neurologic/Psychiatric: Alert, Oriented x3, Motor Weakness (from previous CVA) Skin: Normal Color, Warm/Dry Results Results/Procedures Labs Laboratory Tests 04/26/21 01:36 Patient resulted labs reviewed. Short Stay Diagnosis Discharge Diagnosis-Short Stay Admission Diagnosis Dehydration Final Discharge Diagnosis Dehydration Conclusion Plan Dehydration Resolved with IVF and holding antihypertensives Will DC Norvasc on discharge Has been to bathroom today without issue PT consulted Plan for DC home as he continues to transfer around room without issue [employer] consulted, appreciate help Pt reports has appt on 04/29 for power wheelchair, advised him to keep this appt Will resume home home health services and order suzanne walker for ambulation Diagnosis/Problems Diagnosis/Problems (1) Dehydration Status: Acute (2) Hypotension BETTE GARCIA MD Apr 26, 2021 10:49
[2021-04-26] MEDS ORDERED: MONT-40 PO (12:29)
[2021-04-26] MEDS ORDERED: LORA10TA7 PO (12:29)
--- NOTE | 2021-04-26 13:21 | Physical Therapy Evaluation ---
PT Evaluation-General Medical Diagnosis Admission Date Apr 26, 2021 at 03:30 Medical Diagnosis: hypotension, dehydration Onset Date: Apr 26, 2021 Therapy Diagnosis Therapy Diagnosis: impaired mobility, strength, endurance Height/Weight Height (Feet): 6 Height (Inches): 1.00 Weight (Pounds): 195 Weight (Ounces): 0 Precautions Precautions/Isolations: Fall Prevention, Standard Precautions Referral Physician: Heather Reason for Referral: Evaluation/Treatment Medical History Pertinent Medical History: Alcoholism, CAD, COPD, CVA, HTN, NE, Neuropathy, PVD, Smoking Additional Medical History Past Medical History Surgeries: Yes (EYES;C+L SPINE;CARDIAC CATHS-STENTS X3;BILAT CAROTID ENDART;FOOT;SKIN CA) Angioplasty, Appendectomy, Cardiac, Coronary Stent, Eye Surgery, Orthopedic, Vascular Surgery Respiratory: Yes Pneumonia, Chronic Bronchitis, COPD, Emphysema Currently Using CPAP: No Currently Using BIPAP: No Cardiac: Yes (CARDIAC CATHS-STENTS X3; BILAT CAROTID ENDARTERECTOMIES;R CAROTID STENT) Coronary Artery Disease, High Cholesterol, Hypertension, Peripheral Vascular Neurological: Yes (stroke Jan 20, 2020-RIGHT SIDE PARALYSI, R sided stent placed; TIA 03/23/20) Neuropathy, Stroke Reproductive Disorders: No Sexually Transmitted Disease: No HIV/AIDS: No Genitourinary: No Benign Prostatic Hyperpl, Renal Failure Gastrointestinal: Yes (HEPATITIS C--S/P TREATMENT) Gastroesophageal Reflux Musculoskeletal: Yes (CHRONIC NECK AND BACK PAIN-S/P C-SPINE + L-SPINE SURGERY; L FOOT FX/ORIF) Chronic Back Pain Endocrine: No HEENT: Yes (READING GLASSES;EYE SURGERY CHILD) Loss of Vision: Bilateral Hearing Impairment: Hard of Hearing Cancer: Yes Skin Did You Recieve Any Treatments: Yes What Type of Treatment Did You: Surgical Intervention Psychosocial: Yes (SUBSTANCE ABUSE) Anxiety, Violent Behavior, Depression Integumentary: Yes (SKIN CANCER-GETS BLISTERS) Recent Skin Changes Blood Disorders: No Adverse Reaction/Blood Tranf: No Reviewed History: Yes Social History Home: Single Level Current Living Status: Alone Entry Into Home: Level Entry Prior Prior Level of Function SCALE: Activities may be completed with or without assistive devices. 2-Fckcljmujn-rqyxabz completes the activity by him/herself with no assistance from a helper. 5-Set-up or Clean-up Assistance-helper sets up or cleans up; patient completes activity. Swayzee assists only prior to or following the activity. 4-Supervision or Touching Assistance-helper provides verbal cues and/or touching/steadying and/or contact guard assistance as patient completes activity. Assistance may be provided throughout the activity or intermittently. 3-Partial/Moderate Assistance-helper does LESS THAN HALF the effort. Swayzee lifts, holds or supports trunk or limbs, but provides less than half the effort. 2-Substantial/Maximal Assistance-helper does MORE THAN HALF the effort. Swayzee lifts or holds trunk or limbs and provides more than half the effort. 0-Lqyxwanqd-xnptke does ALL the effort. Patient does none of the effort to complete the activity. Or, the assistance of 2 or more helpers is required for the patient to complete the activity. If activity was not attempted, code reason: 7-Patient Refused. 9-Not Applicable-not attempted and the patient did not perform the activity before the current illness, exacerbation or injury. 10-Not Attempted due to Environmental Limitations-(lack of equipment, weather restraints, etc.). 88-Not Attempted due to Medical Conditions or Safety Concerns. Bed Mobility: 6 Transfers (B,C,W/C): 6 Wheelchair Mobility: 6 Patient states he hasn't been ambulating at home lately but using his WC PT Evaluation-Current Subjective Patient in bed pre tx, agrees to PT, has no complaints of pain at rest. Pt/Family Goals to start walking again Objective Patient Orientation: Person, Place, Situation ROM/Strength ROM Lower Extremities WNL Strength Lower Extremities LLE (hip flexion 4+/5, knee flexion 5/5, knee extension 5/5, dorsiflexion 5/5), RLE (hip flexion 3-/5, knee flexion 3/5, knee extension 3+/5, dorsiflexion 3/5) Sensory Vision: Wears Glasses Hearing: Functional Sensation Right Lower Extremit: Impaired Sensation Left Lower Extremity: Intact Sensation Lower Extremities Patient seems to have intact light touch sensation in RLE but he states that it is decreased. Transfers Roll Left to Right (QC): 6 Lying to Sitting/Side of Bed(Q: 3 Sit to Stand (QC): 4 Chair/Lzc-xb-Ipdxg Xfer(QC): 4 Gait Does the Patient Walk?: Yes Mode of Locomotion: Both Anticipated Mode of Locomotion: Both Distance: 5' Gait Assistive Device: FWW Comments/Gait Description Patient ambulates about 5' to the recliner using a rolling walker with min assist, he needs assist guiding the walker, his right hand cannot whizzer operator the walker enough to use it, he really needs a hemiwalker or quad cane. Balance Sitting Static: Normal Sitting Dynamic: Normal Standing Static: Fair Standing Dynamic: Fair Treatment BLE seated exercises x20 (AP, LAQ) Assessment/Needs Patient in recliner post tx with nurse call, phone, tray, all needs met. Patient instructed to call nurse if he has to get back to bed or use the restroom. Patient has impaired mobility, strength, endurance. He needs some assist for supine to sit and transfers. Rehab Potential: Fair PT Padding Gluer Goals Senior Care Goals PT Padding Gluer Goals Time Frame: May 03, 2021 Roll Left & Right (QC): 6 Sit to Lying (QC): 6 Lying-Sitting on Side/Bed(QC): 6 Sit to Stand (QC): 4 (SBA) Chair/Tfj-pj-Inmab Xfer(QC): 4 (SBA) Walk 10 feet (QC): 4 (CGA) PT Plan Problem List Problem List: Activity Tolerance, Functional Strength, Safety, Balance, Gait, Transfer, Bed Mobility, ROM Treatment/Plan Treatment Plan: Continue Plan of Care Treatment Plan: Bed Mobility, Education, Functional Activity Dutch, Functional Strength, Gait, Safety, Therapeutic Exercise, Transfers Treatment Duration: May 03, 2021 Frequency: 6 times per week Estimated Hrs Per Day: .25 hour per day Patient and/or Family Agrees t: Yes Safety Risks/Education Patient Education: Gait Training, Transfer Techniques, Correct Positioning, Safety Issues Teaching Recipient: Patient Teaching Methods: Demonstration, Discussion Response to Teaching: Reinforcement Needed Discharge Recommendations Plan Patient will perform bed mobility and transfer training, balance and endurance training, functional strengthening, gait training, and education, to improve functional mobility and independence at home. Therapy Discharge Recommendati: Scheduled Assistance, Home & Family, Post Acute PT Time/GCodes Time In: 1258 Time Out: 1310 Total Billed Treatment Time: 12 Total Billed Treatment 1 visit EVBryn 12' IAN PETTY PT Apr 26, 2021 13:21
--- NOTE | 2021-04-26 13:34 | Discharge Inst-Simple/Standard ---
Discharge Inst-Standard Patient Instructions/Follow Up Plan of Care/Instructions/FU: Please continue take your medications as written. Please follow-up with your primary care doctor on April 29 as scheduled. Activity as Tolerated: Yes Discharge Diet: Cardiac Diet Return to The Hospital For: Chest pain, shortness of breath, weakness, dizziness, passing out, fever, weakness, slurred speech, if you feel you are getting worse. Other Inst to Patient Resume home health orders for physical therapy, Occupational Therapy, and nursing services. BETTE GARCIA MD Apr 26, 2021 13:34
== END 2021-04-26 16:25 | disposition home health service (06) ==
LOC: EDUNIT# 01:23 → ER 01:24 → 4TH 03:30
PROVIDERS: ADMIT Internal Medicine; ATTEND Internal Medicine
DX: E86.0 Dehydration (principal); I95.9 Hypotension, unspecified; I63.9 Cerebral infarction, unspecified; I25.10 Atherosclerotic heart disease of native coronary artery without angina pectoris; I73.9 Peripheral vascular disease, unspecified; F17.210 Nicotine dependence, cigarettes, uncomplicated; F12.90 Cannabis use, unspecified, uncomplicated; Z79.899 Other long term (current) drug therapy
CPT/HCPCS: 36415; 51701; 70450; 71045; 80053; 80306; 80320; 80329; 81000; 82150; 82550; 82553; 82947; 83690; 83735; 83880; 84443; 84484; 85025; 85610; 85730; 93005; 93041; G0378

== ENCOUNTER 2021-05-10 17:05 | Emergency (ER) | payer OTHER ==
[~2021-05-10] VITALS: Ht 182.8 cm; Wt 77.1 kg
[2021-05-10] MEDS ORDERED: LACTATED RINGERS 1,000 ML IV SCH (17:15)
[2021-05-10] MEDS ORDERED: LACTATED RINGERS 1,000 ML IV ONE (17:15)
--- NOTE | 2021-05-10 17:20 | ED General ---
General Chief Complaint: Dizziness/Syncope Stated Complaint: HTN Source of Information: Patient Exam Limitations: No Limitations History of Present Illness Date Seen by Provider: May 10, 2021 Time Seen by Provider: 17:18 Initial Comments To ER by EMS from home with reports of general weakness. He was recently admitted for hypotension. He states he felt dizzy while he was walking at home. Normally he is ambulatory with use of a cane, gait belt and someone next to him. Difficulty walking secondary to right sided hemiparesis following CVA. EMS noted him to have a systolic pressure of 107 supine and a drop to 84 systolic upon sitting upright. Timing/Duration: 1-2 Days Severity: Moderate Associated Systoms: Denies Symptoms Allergies and Home Medications Allergies Coded Allergies: No Known Drug Allergies (Unverified , 03/13/18) Patient Home Medication List Home Medication List Reviewed: Yes Acetaminophen (Tylenol 8 Hour) 650 Mg Tablet.er, 650 MG PO Q4H PRN for PAIN-MILD (1-4), (Reported) Entered as Reported by: RENNY STEPHENS on 01/05/21927 Albuterol Sulfate (Proair Hfa) 1 Puff Puff, 2 PUFF IH Q6H PRN for SHORTNESS OF BREATH, (Reported) Entered as Reported by: ANNA KOVACS on 10/19/20 1328 Aspirin (Aspirin EC) 325 Mg Tablet.dr, 325 MG PO DAILY, (Reported) Entered as Reported by: ANNA KOVACS on 10/19/20 1328 Atorvastatin Calcium (Atorvastatin Calcium) 80 Mg Tablet, 80 MG PO HS, (Reported) Entered as Reported by: RENNY STEPHENS on 04/28/20 1607 Baclofen (Baclofen) 10 Mg Tablet, 10 MG PO Q8H PRN for MUSCLE SPASMS, (Reported) Entered as Reported by: LEYLA ESPINOZA on 03/13/18 1354 Bupropion HCl (Bupropion HCl Sr) 150 Mg Tablet.er, 150 MG PO BID, (Reported) Entered as Reported by: RENNY STEPHENS on 01/05/21927 Celecoxib (Celebrex) 200 Mg Capsule, 200 MG PO DAILY, (Reported) Entered as Reported by: RENNY STEPHENS on 01/05/21927 Cholecalciferol (Vitamin D3) (Vitamin D3) 50 Mcg Tablet, 50 MCG PO DAILY, (Reported) Entered as Reported by: ANNA KOVACS on 10/19/20 1328 Clopidogrel Bisulfate (Plavix) 75 Mg Tablet, 75 MG PO DAILY, (Reported) Entered as Reported by: LEYLA ESPINOZA on 03/13/18 1354 Fluticasone Propionate (Fluticasone Propionate) 16 Gm [place].susp, 2 SPRAYS NSEACH DAILY, (Reported) Entered as Reported by: ANNA KOVACS on 10/19/20 1328 Gabapentin (Neurontin) 300 Mg Capsule, 900 MG PO TID, (Reported) Entered as Reported by: ANNA KOVACS on 10/19/20 1328 Lisinopril (Lisinopril) 40 Mg Tablet, 20 MG PO DAILY, (Reported) Entered as Reported by: ANNA KOVACS on 10/19/20 1328 Loratadine (Loratadine) 10 Mg Tablet, 10 MG PO DAILY, (Reported) Entered as Reported by: RENNY STEPHENS on 04/26/21 1229 Montelukast Sodium (Montelukast Sodium) 10 Mg Tablet, 10 MG PO HS, (Reported) Entered as Reported by: RENNY STEPHENS on 04/26/21 1229 Review of Systems Review of Systems Constitutional: see HPI EENTM: see HPI Respiratory: no symptoms reported Cardiovascular: no symptoms reported Genitourinary: no symptoms reported Musculoskeletal: no symptoms reported Skin: no symptoms reported Psychiatric/Neurological: No Symptoms Reported Hematologic/Lymphatic: No Symptoms Reported Immunological/Allergic: no symptoms reported Past Qositfp-Qjwily-Jdynvo Hx Immunizations Up To Date Tetanus Booster (TDap): Less than 5yrs First/Initial COVID19 Vaccinat: 11/10 Second COVID19 Vaccination Oskar: 12/10 Third COVID19 Vaccination Date: 11/10 Seasonal Allergies Seasonal Allergies: No Past Medical History Surgery/Hospitalization HX: cardiac stents, spinal sx, appy, bilateral carotid endartectomy, Surgeries: Yes (EYES;C+L SPINE;CARDIAC CATHS-STENTS X3;BILAT CAROTID ENDART;FOOT;SKIN CA) Angioplasty, Appendectomy, Cardiac, Coronary Stent, Eye Surgery, Orthopedic, Vascular Surgery Respiratory: Yes Pneumonia, Chronic Bronchitis, COPD, Emphysema Currently Using CPAP: No Currently Using BIPAP: No Cardiac: Yes (CARDIAC CATHS-STENTS X3; BILAT CAROTID ENDARTERECTOMIES;R CAROTID STENT) Coronary Artery Disease, High Cholesterol, Hypertension, Peripheral Vascular Neurological: Yes (stroke Jan 20, 2020-RIGHT SIDE PARALYSI, R sided stent placed; TIA 03/23/20) Neuropathy, Stroke Reproductive Disorders: No Sexually Transmitted Disease: No HIV/AIDS: No Genitourinary: No Benign Prostatic Hyperpl, Renal Failure Gastrointestinal: Yes (HEPATITIS C--S/P TREATMENT) Gastroesophageal Reflux Musculoskeletal: Yes (CHRONIC NECK AND BACK PAIN-S/P C-SPINE + L-SPINE SURGERY; L FOOT FX/ORIF) Chronic Back Pain Endocrine: No HEENT: Yes (READING GLASSES;EYE SURGERY CHILD) Loss of Vision: Bilateral Hearing Impairment: Hard of Hearing Cancer: Yes Skin Did You Recieve Any Treatments: Yes What Type of Treatment Did You: Surgical Intervention Psychosocial: Yes (SUBSTANCE ABUSE) Anxiety, Violent Behavior, Depression Integumentary: Yes (SKIN CANCER-GETS BLISTERS) Recent Skin Changes Blood Disorders: No Adverse Reaction/Blood Tranf: No Family Medical History Cancer 19 FATHER (SKIN) 19 MOTHER Cancer of colon 19 MOTHER Kidney disease 19 FATHER (PASSED KIDNEY FAILURE) SOCIAL HISTORY: -ETOH--OCCASIONAL USE, HX OF HEAVY USE -DRUGS--DAILY MARIJUANA USE, ALSO METH USE. DENIES IV DRUG USE -SMOKES 2 PPD PAST SURGICAL HISTORY: -LAST CARDIAC CATH DONE HERE IN 2013--PATENT STENTS -CARDIAC CATHS WITH STENTS X 3 -BILATERAL CAROTID ENDARTERECTOMY -RIGHT CAROTID STENT 01/21/20 AT -RIGHT EYE SURGERY CHILD -CERVICAL SPINE AND LUMBAR SPINE SURGERIES -LEFT FOOT FRACTURE/ ORIF -SKIN CANCER REMOVAL -APPENDECTOMY -STRESS TEST 01/05/[address] ALVAREZ: 1. Patient tolerated Lexiscan well, and transient episode of hypotension, responded to IV fluid 2. Diaphragmatic attenuation with no significant ischemia or infarction on SPECT images 3. Normal left ventricular size, EF 66% Physical Exam Vital Signs Vital Signs - First Documented 05/10/21 17:05 Pulse 59 Resp 16 B/P (MAP) 115/78 (90) Pulse Ox 98 O2 Delivery Room Air Capillary Refill : Height, Weight, BMI Height: 6'1.00" Weight: 195lbs. 0oz. [id number]; 22.60 BMI Method:Actual General Appearance: No Apparent Distress, WD/WN, Chronically ill, Other (While supine he is alert, speech is clear. He is oriented. His blood pressure is 115/70. His heart rates in the 50s.) Eyes: Bilateral Eye Normal Inspection, Bilateral Eye PERRL, Bilateral Eye EOMI Neck: Full Range of Motion, Normal Inspection Respiratory: Lungs Clear, Normal Breath Sounds, No Accessory Muscle Use, No Respiratory Distress Cardiovascular: Regular Rate, Rhythm, Normal Peripheral Pulses Gastrointestinal: Normal Bowel Sounds, Non Tender, Soft Extremity: Normal Capillary Refill Neurologic/Psychiatric: Alert, Oriented x3 Skin: Normal Color, Warm/Dry Progress/Results/Core Measures Suspected Sepsis SIRS Temperature: Pulse: Respiratory Rate: Laboratory Tests 05/10/21 17:21: White Blood Count 11.5H Blood Pressure / Mean: Laboratory Tests 05/10/21 17:21: Creatinine 1.92H, INR Comment 0.9, Platelet Count 244, Total Bilirubin 0.7 Results/Orders Lab Results Laboratory Tests Test 05/10/21 17:21 05/10/21 17:33 Range/Units White Blood Count 11.5 H 4.3-11.0 10^3/uL Red Blood Count 4.70 4.30-5.52 10^6/uL Hemoglobin 14.1 13.3-17.7 g/dL Hematocrit 43 40-54 % Mean Corpuscular Volume 92 80-99 fL Mean Corpuscular Hemoglobin 30 25-34 pg Mean Corpuscular Hemoglobin Concent 33 32-36 g/dL Red Cell Distribution Width 13.2 10.0-14.5 % Platelet Count 244 130-400 10^3/uL Mean Platelet Volume 10.1 9.0-12.2 fL Immature Granulocyte % (Auto) 0 % Neutrophils (%) (Auto) 67 42-75 % Lymphocytes (%) (Auto) 19 12-44 % Monocytes (%) (Auto) 12 0-12 % Eosinophils (%) (Auto) 2 0-10 % Basophils (%) (Auto) 0 0-10 % Neutrophils # (Auto) 7.7 1.8-7.8 X 10^3 Lymphocytes # (Auto) 2.1 1.0-4.0 X 10^3 Monocytes # (Auto) 1.3 H 0.0-1.0 X 10^3 Eosinophils # (Auto) 0.3 0.0-0.3 10^3/uL Basophils # (Auto) 0.0 0.0-0.1 10^3/uL Immature Granulocyte # (Auto) 0.1 0.0-0.1 10^3/uL Prothrombin Time 12.4 12.2-14.7 SEC INR Comment 0.9 0.8-1.4 Activated Partial Thromboplast Time 26 24-35 SEC Sodium Level 140 135-145 MMOL/L Potassium Level 3.5 L 3.6-5.0 MMOL/L Chloride Level 103 98-107 MMOL/L Carbon Dioxide Level 24 21-32 MMOL/L Anion Gap 13 5-14 MMOL/L Blood Urea Nitrogen 16 7-18 MG/DL Creatinine 1.92 H 0.60-1.30 MG/DL Estimat Glomerular Filtration Rate 39 BUN/Creatinine Ratio 8 Glucose Level 79 70-105 MG/DL Calcium Level 9.9 8.5-10.1 MG/DL Corrected Calcium 9.8 8.5-10.1 MG/DL Total Bilirubin 0.7 0.1-1.0 MG/DL Aspartate Amino Transf (AST/SGOT) 11 5-34 U/L Alanine Aminotransferase (ALT/SGPT) 10 0-55 U/L Alkaline Phosphatase 82 40-136 U/L B-Type Natriuretic Peptide 21.0 <100.0 PG/ML Total Protein 6.9 6.4-8.2 GM/DL Albumin 4.1 3.2-4.5 GM/DL Urine Color ORANGE Urine Clarity CLEAR Urine pH 5.5 5-9 Urine Specific Sandy >=1.030 1.016-1.022 Urine Protein 1+ H NEGATIVE Urine Glucose (UA) NEGATIVE NEGATIVE Urine Ketones TRACE H NEGATIVE Urine Nitrite NEGATIVE NEGATIVE Urine Bilirubin 2+ H NEGATIVE Urine Urobilinogen 1.0 < = 1.0 MG/DL Urine Leukocyte Esterase NEGATIVE NEGATIVE Urine RBC (Auto) NEGATIVE NEGATIVE Urine RBC NONE /HPF Urine WBC 5-10 H /HPF Urine Squamous Epithelial Cells 5-10 /HPF Urine Crystals NONE /LPF Urine Bacteria FEW H /HPF Urine Casts PRESENT /LPF Urine Hyaline Casts >50 H /LPF Urine Mucus MODERATE H /LPF Urine Culture Indicated CULTURE PENDING Urine Opiates Screen NEGATIVE NEGATIVE Urine Oxycodone Screen NEGATIVE NEGATIVE Urine Methadone Screen NEGATIVE NEGATIVE Urine Propoxyphene Screen NEGATIVE NEGATIVE Urine Barbiturates Screen NEGATIVE NEGATIVE Ur Tricyclic Antidepressants Screen NEGATIVE NEGATIVE Urine Phencyclidine Screen NEGATIVE NEGATIVE Urine Amphetamines Screen NEGATIVE NEGATIVE Urine Methamphetamines Screen NEGATIVE NEGATIVE Urine Benzodiazepines Screen NEGATIVE NEGATIVE Urine Cocaine Screen NEGATIVE NEGATIVE Urine Cannabinoids Screen NEGATIVE NEGATIVE My Orders Orders - SONIA CRISTOBAL APRN Cbc With Automated Diff (05/10/21 17:15) Comprehensive Metabolic Panel (05/10/21 17:15) Sputum Culture (05/10/21 17:15) Urinalysis (05/10/21 17:15) Urine Culture (05/10/21 17:15) Protime With Inr (05/10/21 17:15) Partial Thromboplastin Time (05/10/21 17:15) Chest 1 View, Ap/Pa Only (05/10/21 17:15) Ed Iv/Invasive Line Start (05/10/21 17:15) Vital Signs Adult Sepsis Patie Q15M (05/10/21 17:15) O2 (05/10/21 17:15) Remove Rings In Anticipation O (05/10/21 17:15) Ekg Tracing (05/10/21 17:15) Bnp [place] (05/10/21 17:15) Lactated Ringers (Lr 1000 Ml Iv Solution (05/10/21 17:15) Lactated Ringers (Lr 1000 Ml Iv Solution (05/10/21 17:15) Orthostatic Vital Signs (Adult (05/10/21 18:10) Ceftriaxone 1 Gm Pre-Mix (Rocephin 1 Gm (05/10/21 18:15) Drug Screen Stat (Urine) (05/10/21 18:12) Medications Given in ED Current Medications Medications Dose Ordered Sig/Lindsey Route Start Time Stop Time Status Last Admin Dose Admin Ceftriaxone Sodium/Dextrose 50 ml @ 100 mls/hr ONCE ONCE IV 05/10/21 18:15 05/10/21 18:44 DC 05/10/21 19:03 100 MLS/HR Vital Signs/I&O 05/10/21 05/10/21 17:05 18:12 Pulse 59 55 61 65 Resp 16 B/P (MAP) 115/78 (90) 125/76 (92) 121/109 (113) 102/64 (77) Pulse Ox 98 O2 Delivery Room Air Capillary Refill : Departure Communication (Admissions) 1042-he sitting upright in bed talkative watching a movie on his phone. States he like a sandwich tray. Blood pressure up to 145/90 1:05 liter of IV fluids we will discharged home. He did receive 1 g of IV Rocephin here for questionable UTI. NAME: CRISTI KRISHNAMURTHY [facility] REC#: [id number] PT STATUS: REG ER : 1955 PHYSICIAN: SONIA CRISTOBAL APRN ADMIT DATE: 05/10/21/ER Draft Date of Exam:05/10/21 CHEST 1 VIEW, AP/PA ONLY EXAMINATION: Chest 1 view HISTORY: weakness COMPARISON: 04/26/2021 FINDINGS: The lungs are clear without edema or pneumonia. No pleural effusion or pneumothorax. Heart size is normal. IMPRESSION: 1. Clear lungs. Dictated on workstation # [id number] Dict: 05/10/211744 Trans: 05/10/211745 [facility] [id number] Interpreted by: AYALA CORTEZ MD Electronically signed by: Impression Primary Impression: Orthostatic hypotension Additional Impression: Dehydration Disposition: 01 HOME, SELF-CARE Condition: Stable Departure-Patient Inst. Decision time for Depature: 19:41 Referrals: YUMIKO HERNANDEZ MD (PCP/Family) Primary Care Physician Patient Instructions: Orthostatic Hypotension (DC) Add. Discharge Instructions: 1. Increase fluid intake. Return to ER for any concerns. Follow-up with your doctor next week. All discharge instructions reviewed with patient and/or family. Voiced understanding. SONIA CRISTOBAL APRN May 10, 2021 17:20
[2021-05-10 17:30] LABS: BASOPHILS % (AUTO) 0 % (0-10); EOSINOPHILS # (AUTO) 0.3 10^3/uL (0.0-0.3); EOSINOPHILS % (AUTO) 2 % (0-10); HEMATOCRIT 43 % (40-54); HEMOGLOBIN 14.1 g/dL (13.3-17.7); LYMPHOCYTES # (AUTO) 2.1 X 10^3 (1.0-4.0); LYMPHOCYTES % (AUTO) 19 % (12-44); MEAN CORPUSCULAR HEMOGLOBIN 30 pg (25-34); MEAN CORPUSCULAR HGB CONC 33 g/dL (32-36); MEAN CORPUSCULAR VOLUME 92 fL (80-99); MEAN PLATELET VOLUME 10.1 fL (9.0-12.2); MONOCYTES # (AUTO) 1.3 X 10^3 (0.0-1.0); MONOCYTES % (AUTO) 12 % (0-12); NEUTROPHILS # (AUTO) 7.7 X 10^3 (1.8-7.8); NEUTROPHILS % (AUTO) 67 % (42-75); PLATELET COUNT 244 10^3/uL (130-400); WHITE BLOOD COUNT 11.5 10^3/uL (4.3-11.0)
[2021-05-10 17:35] LABS: ALBUMIN 4.1 GM/DL (3.2-4.5)
[2021-05-10 17:36] LABS: POTASSIUM 3.5 MMOL/L (3.6-5.0)
[2021-05-10 17:37] LABS: CALCIUM 9.9 MG/DL (8.5-10.1)
[2021-05-10 17:38] LABS: TOTAL PROTEIN 6.9 GM/DL (6.4-8.2)
[2021-05-10 17:39] LABS: INR 0.9 (0.8-1.4); PROTHROMBIN TIME PATIENT 12.4 SEC (12.2-14.7)
[2021-05-10 17:40] LABS: BILIRUBIN,TOTAL 0.7 MG/DL (0.1-1.0)
[2021-05-10 17:42] LABS: CREATININE SERUM 1.92 MG/DL (0.60-1.30)
[2021-05-10 17:47] LABS: CLARITY,URINE CLEAR; COLOR,URINE ORANGE; GLUCOSE, URINE (UA) NEGATIVE (NEGATIVE); KETONES,URINE TRACE (NEGATIVE); LEUKOCYTE ESTERASE ,URINE NEGATIVE (NEGATIVE); NITRITE,URINE NEGATIVE (NEGATIVE); PH,URINE 5.5 (5-9); PROTEIN,URINE 1+ (NEGATIVE)
--- NOTE | 2021-05-10 17:47 | Diagnostic Imaging Report ---
EXAMINATION: Chest 1 view HISTORY: weakness COMPARISON: 04/26/2021 FINDINGS: The lungs are clear without edema or pneumonia. No pleural effusion or pneumothorax. Heart size is normal. IMPRESSION: 1. Clear lungs. Dictated by: Dictated on workstation # [id number]
[2021-05-10 17:53] LABS: BACTERIA,URINE FEW /HPF; BILIRUBIN,URINE 2+ (NEGATIVE); HYALINE CASTS, URINE >50 /LPF
[2021-05-10 18:12] VITALS: BP_SYST 102; BP_SYST 121; BP_SYST 125; BP_DIAS 109; BP_DIAS 64; BP_DIAS 76
[2021-05-10] MEDS ORDERED: cefTRIAXone 1 GM PRE-MIX 50 ML IV ONE (18:15)
[2021-05-10 18:31] LABS: AMPHETAMINE SCREEN, URINE NEGATIVE (NEGATIVE); BARBITURATE SCREEN URINE NEGATIVE (NEGATIVE); BENZODIAZEPINES SCREEN URINE NEGATIVE (NEGATIVE); CANNABINOID SCREEN, URINE NEGATIVE (NEGATIVE); COCAINE SCREEN URINE NEGATIVE (NEGATIVE); METHADONE STAT NEGATIVE (NEGATIVE); METHAMPHETAMINE SCREEN URINE S NEGATIVE (NEGATIVE); OPIATE SCREEN URINE NEGATIVE (NEGATIVE); OXYCODONE STAT NEGATIVE (NEGATIVE); PROPOXYPHENE STAT NEGATIVE (NEGATIVE); TRICYCLIC ANTIDEPRESSANTS SCRE NEGATIVE (NEGATIVE)
[2021-05-10 20:30] VITALS: BP 133/87
== END 2021-05-10 20:34 | disposition home or self-care (01) ==
LOC: EDUNIT# 17:05 → ER 17:07
DX: I95.1 Orthostatic hypotension (principal); E86.0 Dehydration
CPT/HCPCS: 36415; 71045; 80053; 80306; 81000; 83880; 85025; 85610; 85730; 87088; 93005; 96365

== ENCOUNTER 2021-05-21 14:42 | Emergency (ER) | payer OTHER ==
[~2021-05-21] VITALS: Ht 187.9 cm; Wt 77.1 kg
--- NOTE | 2021-05-21 15:06 | ED General ---
General Chief Complaint: Altered Mental Status Stated Complaint: AMS Source of Information: Patient Exam Limitations: No Limitations (SONIA CRISTOBAL APRN) History of Present Illness Date Seen by Provider: May 21, 2021 Time Seen by Provider: 15:01 Initial Comments To ER by [facility] from his home in [place]. 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 His home health nurse arrived to check on him and found him to be with altered mental status and lethargic for about 45 minutes. Patient recalls this and states that he remembers everybody "being really worried" and that he felt tired. EMS did note an initial blood pressure of about 90 systolic, initiated IV fluids in route to the hospital and he received about a 750 mL bolus in route to the hospital. He states that he feels completely normal at this time. Timing/Duration: 1 Hour Severity: Mild Associated Systoms: Denies Symptoms (SONIA CRISTOBAL APRN) Allergies and Home Medications Allergies Coded Allergies: No Known Drug Allergies (Unverified , 03/13/18) Patient Home Medication List Home Medication List Reviewed: Yes (SONIA CRISTOBAL APRN) Acetaminophen (Tylenol 8 Hour) 650 Mg Tablet.er, 650 MG PO Q4H PRN for PAIN-MILD (1-4), (Reported) Entered as Reported by: RENNY STEPHENS on 01/05/21 0928 Albuterol Sulfate (Proair Hfa) 1 Puff Puff, 2 PUFF IH Q6H PRN for SHORTNESS OF BREATH, (Reported) Entered as Reported by: ANNA KOVACS on 10/19/20 1328 Aspirin (Aspirin EC) 325 Mg Tablet.dr, 325 MG PO DAILY, (Reported) Entered as Reported by: ANNA KOVACS on 10/19/20 1328 Atorvastatin Calcium (Atorvastatin Calcium) 80 Mg Tablet, 80 MG PO HS, (Reported) Entered as Reported by: RENNY STEPHENS on 04/28/20 1607 Baclofen (Baclofen) 10 Mg Tablet, 10 MG PO Q8H PRN for MUSCLE SPASMS, (Reported) Entered as Reported by: LEYLA ESPINOZA on 03/13/18 1354 Bupropion HCl (Bupropion HCl Sr) 150 Mg Tablet.er, 150 MG PO BID, (Reported) Entered as Reported by: RENNY STEPHENS on 01/05/21927 Celecoxib (Celebrex) 200 Mg Capsule, 200 MG PO DAILY, (Reported) Entered as Reported by: RENNY STEPHENS on 01/05/21927 Cholecalciferol (Vitamin D3) (Vitamin D3) 50 Mcg Tablet, 50 MCG PO DAILY, (Reported) Entered as Reported by: ANNA KOVACS on 10/19/20 132 Clopidogrel Bisulfate (Plavix) 75 Mg Tablet, 75 MG PO DAILY, (Reported) Entered as Reported by: LEYLA ESPINOZA on 03/13/18 1354 Fluticasone Propionate (Fluticasone Propionate) 16 Gm [place].susp, 2 SPRAYS NSEACH DAILY, (Reported) Entered as Reported by: ANNA KOVACS on 10/19/20 132 Gabapentin (Neurontin) 300 Mg Capsule, 900 MG PO TID, (Reported) Entered as Reported by: ANNA KOVACS on 10/19/20 1328 Lisinopril (Lisinopril) 40 Mg Tablet, 20 MG PO DAILY, (Reported) Entered as Reported by: ANNA KOVACS on 10/19/20 1328 Loratadine (Loratadine) 10 Mg Tablet, 10 MG PO DAILY, (Reported) Entered as Reported by: RENNY STEPHENS on 04/26/21 1229 Montelukast Sodium (Montelukast Sodium) 10 Mg Tablet, 10 MG PO HS, (Reported) Entered as Reported by: RENNY STEPHENS on 04/26/21 1229 Review of Systems Review of Systems Constitutional: see HPI EENTM: see HPI Respiratory: no symptoms reported Cardiovascular: no symptoms reported Genitourinary: no symptoms reported Musculoskeletal: no symptoms reported Skin: no symptoms reported Psychiatric/Neurological: No Symptoms Reported Hematologic/Lymphatic: No Symptoms Reported Immunological/Allergic: no symptoms reported (SONIA CRISTOBAL APRN) Past Igvwtew-Dagnkd-Stkjxf Hx Immunizations Up To Date Tetanus Booster (TDap): Less than 5yrs First/Initial COVID19 Vaccinat: 11/10 Second COVID19 Vaccination Oskar: 12/10 Third COVID19 Vaccination Date: 11/10 (SONIA CRISTOBAL APRN) Seasonal Allergies Seasonal Allergies: No (SONIA CRISTOBAL APRN) Past Medical History Surgery/Hospitalization HX: cardiac stents, spinal sx, appy, bilateral carotid endartectomy, Surgeries: Yes (EYES;C+L SPINE;CARDIAC CATHS-STENTS X3;BILAT CAROTID ENDART;FO OT;SKIN CA) Angioplasty, Appendectomy, Cardiac, Coronary Stent, Eye Surgery, Orthopedic, Vascular Surgery Respiratory: Yes Pneumonia, Chronic Bronchitis, COPD, Emphysema Currently Using CPAP: No Currently Using BIPAP: No Cardiac: Yes (CARDIAC CATHS-STENTS X3; BILAT CAROTID ENDARTERECTOMIES;R CAROTID STENT) Coronary Artery Disease, High Cholesterol, Hypertension, Peripheral Vascular Neurological: Yes (stroke Jan 20, 2020-RIGHT SIDE PARALYSI, R sided stent placed; TIA 03/23/20) Neuropathy, Stroke Reproductive Disorders: No Sexually Transmitted Disease: No HIV/AIDS: No Genitourinary: No Benign Prostatic Hyperpl, Renal Failure Gastrointestinal: Yes (HEPATITIS C--S/P TREATMENT) Gastroesophageal Reflux Musculoskeletal: Yes (CHRONIC NECK AND BACK PAIN-S/P C-SPINE + L-SPINE SURGERY; L FOOT FX/ORIF) Chronic Back Pain Endocrine: No HEENT: Yes (READING GLASSES;EYE SURGERY CHILD) Loss of Vision: Bilateral Hearing Impairment: Hard of Hearing Cancer: Yes Skin Did You Recieve Any Treatments: Yes What Type of Treatment Did You: Surgical Intervention Psychosocial: Yes (SUBSTANCE ABUSE) Anxiety, Violent Behavior, Depression Integumentary: Yes (SKIN CANCER-GETS BLISTERS) Recent Skin Changes Blood Disorders: No Adverse Reaction/Blood Tranf: No (SONIA CRISTOBAL APRN) Family Medical History Cancer 19 FATHER (SKIN) 19 MOTHER Cancer of colon 19 MOTHER Kidney disease 19 FATHER (PASSED KIDNEY FAILURE) SOCIAL HISTORY: -ETOH--OCCASIONAL USE, HX OF HEAVY USE -DRUGS--DAILY MARIJUANA USE, ALSO METH USE. DENIES IV DRUG USE -SMOKES 2 PPD PAST SURGICAL HISTORY: -LAST CARDIAC CATH DONE HERE IN 2013--PATENT STENTS -CARDIAC CATHS WITH STENTS X 3 -BILATERAL CAROTID ENDARTERECTOMY -RIGHT CAROTID STENT 01/21/20 AT -RIGHT EYE SURGERY CHILD -CERVICAL SPINE AND LUMBAR SPINE SURGERIES -LEFT FOOT FRACTURE/ ORIF -SKIN CANCER REMOVAL -APPENDECTOMY -STRESS TEST 01/05/[address] ALVAREZ: 1. Patient tolerated Lexiscan well, and transient episode of hypotension, responded to IV fluid 2. Diaphragmatic attenuation with no significant ischemia or infarction on SPECT images 3. Normal left ventricular size, EF 66% (SONIA CRISTOBAL APRN) Physical Exam Vital Signs Vital Signs - First Documented 05/21/21 05/21/21 14:46 17:05 Temp 35.9 Pulse 54 Resp 18 B/P (MAP) 165/80 (108) Pulse Ox 99 O2 Delivery Room Air (RIVERA LAZO MD) Vital Signs Capillary Refill : (SONIA CRISTOBAL APRN) Height, Weight, BMI Height: 6'1.00" Weight: 195lbs. 0oz. [id number]; 23.00 BMI Method:Actual General Appearance: No Apparent Distress, WD/WN Eyes: Bilateral Eye Normal Inspection, Bilateral Eye PERRL, Bilateral Eye EOMI Neck: Full Range of Motion, Normal Inspection Respiratory: No Accessory Muscle Use, No Respiratory Distress Cardiovascular: Regular Rate, Rhythm, Normal Peripheral Pulses Gastrointestinal: Normal Bowel Sounds, Non Tender, Soft Extremity: Normal Capillary Refill, Normal Inspection, Other (bilat pedal edema chronic. flaccid right arm and leg as per his usual. Speech is clear, mentation is normal. ') Neurologic/Psychiatric: Alert, Oriented x3 Skin: Normal Color, Warm/Dry (SONIA CRISTOBAL APRN) Progress/Results/Core Measures Suspected Sepsis SIRS Temperature: Pulse: Respiratory Rate: Laboratory Tests 05/21/21 15:00: White Blood Count 8.4 Blood Pressure / Mean: Laboratory Tests 05/21/21 15:00: Creatinine 0.85, Platelet Count 204, Total Bilirubin 0.8 (SONIA CRISTOBAL APRN) Results/Orders Lab Results Laboratory Tests Test 05/21/21 15:00 05/21/21 15:14 Range/Units White Blood Count 8.4 4.3-11.0 10^3/uL Red Blood Count 4.51 4.30-5.52 10^6/uL Hemoglobin 13.4 13.3-17.7 g/dL Hematocrit 42 40-54 % Mean Corpuscular Volume 93 80-99 fL Mean Corpuscular Hemoglobin 30 25-34 pg Mean Corpuscular Hemoglobin Concent 32 32-36 g/dL Red Cell Distribution Width 13.2 10.0-14.5 % Platelet Count 204 130-400 10^3/uL Mean Platelet Volume 10.6 9.0-12.2 fL Immature Granulocyte % (Auto) 0 % Neutrophils (%) (Auto) 66 42-75 % Lymphocytes (%) (Auto) 22 12-44 % Monocytes (%) (Auto) 8 0-12 % Eosinophils (%) (Auto) 4 0-10 % Basophils (%) (Auto) 1 0-10 % Neutrophils # (Auto) 5.5 1.8-7.8 10^3/uL Lymphocytes # (Auto) 1.9 1.0-4.0 10^3/uL Monocytes # (Auto) 0.6 0.0-1.0 10^3/uL Eosinophils # (Auto) 0.3 0.0-0.3 10^3/uL Basophils # (Auto) 0.1 0.0-0.1 10^3/uL Immature Granulocyte # (Auto) 0.0 0.0-0.1 10^3/uL Sodium Level 143 135-145 MMOL/L Potassium Level 4.1 3.6-5.0 MMOL/L Chloride Level 105 98-107 MMOL/L Carbon Dioxide Level 24 21-32 MMOL/L Anion Gap 14 5-14 MMOL/L Blood Urea Nitrogen 10 7-18 MG/DL Creatinine 0.85 0.60-1.30 MG/DL Estimat Glomerular Filtration Rate 98 BUN/Creatinine Ratio 12 Glucose Level 87 70-105 MG/DL Calcium Level 9.1 8.5-10.1 MG/DL Corrected Calcium 9.3 8.5-10.1 MG/DL Total Bilirubin 0.8 0.1-1.0 MG/DL Aspartate Amino Transf (AST/SGOT) 11 5-34 U/L Alanine Aminotransferase (ALT/SGPT) 12 0-55 U/L Alkaline Phosphatase 74 40-136 U/L Total Protein 6.7 6.4-8.2 GM/DL Albumin 3.8 3.2-4.5 GM/DL Serum Alcohol < 10 <10 MG/DL Urine Color YELLOW Urine Clarity CLEAR Urine pH 7.0 5-9 Urine Specific [place]set 1.015 L 1.016-1.022 Urine Protein NEGATIVE NEGATIVE Urine Glucose (UA) NEGATIVE NEGATIVE Urine Ketones NEGATIVE NEGATIVE Urine Nitrite NEGATIVE NEGATIVE Urine Bilirubin NEGATIVE NEGATIVE Urine Urobilinogen 0.2 < = 1.0 MG/DL Urine Leukocyte Esterase NEGATIVE NEGATIVE Urine RBC (Auto) NEGATIVE NEGATIVE Urine RBC NONE /HPF Urine WBC NONE /HPF Urine Crystals NONE /LPF Urine Bacteria NEGATIVE /HPF Urine Casts NONE /LPF Urine Mucus NEGATIVE /LPF Urine Culture Indicated NO Urine Opiates Screen NEGATIVE NEGATIVE Urine Oxycodone Screen NEGATIVE NEGATIVE Urine Methadone Screen NEGATIVE NEGATIVE Urine Propoxyphene Screen NEGATIVE NEGATIVE Urine Barbiturates Screen NEGATIVE NEGATIVE Ur Tricyclic Antidepressants Screen NEGATIVE NEGATIVE Urine Phencyclidine Screen NEGATIVE NEGATIVE Urine Amphetamines Screen NEGATIVE NEGATIVE Urine Methamphetamines Screen NEGATIVE NEGATIVE Urine Benzodiazepines Screen NEGATIVE NEGATIVE Urine Cocaine Screen NEGATIVE NEGATIVE Urine Cannabinoids Screen POSITIVE H NEGATIVE (RIVERA LAZO MD) Medications Given in ED Current Medications Medications Dose Ordered Sig/Lindsey Route Start Time Stop Time Status Last Admin Dose Admin Lisinopril 20 mg ONCE ONCE PO 05/21/21 17:00 05/21/21 17:01 DC 05/21/21 17:04 20 MG (RIVERA LAZO MD) Vital Signs/I&O 05/21/21 05/21/21 14:46 17:05 Temp 35.9 Pulse 54 57 Resp 18 19 B/P (MAP) 165/80 (108) 177/96 Pulse Ox 99 O2 Delivery Room Air Room Air (RIVERA LAZO MD) Vital Signs/I&O Capillary Refill : (SONIA CRISTOBAL APRN) Departure Communication (Admissions) Family Conversation 1612-Still alert and oriented. Feels normal. No new deficits will dc to home. 1706 despite his hypotension at home on scene per EMS about 90s over 50s, he is actually had hypertension here with a pressure of 170 systolic up to 210 systolic. I will give him his daily dose of lisinopril 20 mg. NAME: CRISTI KRISHNAMURTHY [facility] REC#: [id number] PT STATUS: REG ER : 1955 PHYSICIAN: SONIA CRISTOBAL APRN ADMIT DATE: 05/21/21/ER Draft Date of Exam:05/21/21 CT HEAD WO PROCEDURE: CT head without contrast. TECHNIQUE: Multiple contiguous axial images were obtained through the brain without the use of intravenous contrast. Auto Exposure Controls were utilized during the CT exam to meet ALARA standards for radiation dose reduction. INDICATION: Altered mental status. COMPARISON: 04/26/2021. FINDINGS: Old infarcts of the convexity of the posterior left frontal lobe and lateral margins of the right parieto-occipital lobes are again identified. These are stable compared to prior exam. There is also background chronic small vessel ischemic change in the deep white matter. There is no new large area of loss of normal mujica-white matter junction differentiation to suggest new evolving acute territorial infarct. Ventricles and cortical sulci remain mildly diffusely prominent consistent with underlying age-related parenchymal volume loss. There is no new mass effect or midline shift. No intra or extra-axial intracranial hemorrhage is seen. No other extra-axial masses or fluid collections are identified. Bony calvarium is intact. Included portions of the paranasal sinuses and mastoid air cells are clear. IMPRESSION: 1. No acute intracranial abnormality. No CT evidence of acute infarct, mass, nor hemorrhage. 2. Old infarcts of the bilateral cerebral hemispheres with background age-related parenchymal volume loss and chronic small vessel ischemic changes in the deep white matter. Dictated on workstation # [id number] Dict: 05/21/21 1602 Trans: 05/21/21 1610 [id number] Interpreted by: HILARIA TONG MD Electronically signed by: (SONIA CRISTOBAL APRN) Impression Primary Impression: Transient hypotension Disposition: 01 HOME, SELF-CARE Condition: Stable Departure-Patient Inst. Decision time for Depature: 16:13 (SONIA CRISTOBAL APRN) Referrals: YUMIKO HERNANDEZ MD (PCP/Family) Primary Care Physician Patient Instructions: Low Blood Pressure ATTENDING PHYSICIAN NOTE: I was physically present as attending physician in the emergency department during the care of this patient, but I was not directly involved in the decision making or delivery of care for this patient. (RIVERA LAZO MD) SONIA CRISTOBAL APRN May 21, 2021 15:06 RIVERA LAZO MD May 21, 2021 18:48
[2021-05-21 15:10] LABS: BASOPHILS # (AUTO) 0.1 10^3/uL (0.0-0.1); BASOPHILS % (AUTO) 1 % (0-10); EOSINOPHILS # (AUTO) 0.3 10^3/uL (0.0-0.3); EOSINOPHILS % (AUTO) 4 % (0-10); HEMATOCRIT 42 % (40-54); HEMOGLOBIN 13.4 g/dL (13.3-17.7); LYMPHOCYTES # (AUTO) 1.9 10^3/uL (1.0-4.0); LYMPHOCYTES % (AUTO) 22 % (12-44); MEAN CORPUSCULAR HEMOGLOBIN 30 pg (25-34); MEAN CORPUSCULAR HGB CONC 32 g/dL (32-36); MEAN CORPUSCULAR VOLUME 93 fL (80-99); MEAN PLATELET VOLUME 10.6 fL (9.0-12.2); MONOCYTES # (AUTO) 0.6 10^3/uL (0.0-1.0); MONOCYTES % (AUTO) 8 % (0-12); NEUTROPHILS # (AUTO) 5.5 10^3/uL (1.8-7.8); NEUTROPHILS % (AUTO) 66 % (42-75); PLATELET COUNT 204 10^3/uL (130-400); WHITE BLOOD COUNT 8.4 10^3/uL (4.3-11.0)
[2021-05-21 15:18] LABS: BILIRUBIN,URINE NEGATIVE (NEGATIVE); CLARITY,URINE CLEAR; COLOR,URINE YELLOW; GLUCOSE, URINE (UA) NEGATIVE (NEGATIVE); KETONES,URINE NEGATIVE (NEGATIVE); LEUKOCYTE ESTERASE ,URINE NEGATIVE (NEGATIVE); NITRITE,URINE NEGATIVE (NEGATIVE); PROTEIN,URINE NEGATIVE (NEGATIVE)
[2021-05-21 15:22] LABS: ALBUMIN 3.8 GM/DL (3.2-4.5); CHLORIDE 105 MMOL/L (98-107); POTASSIUM 4.1 MMOL/L (3.6-5.0); SODIUM 143 MMOL/L (135-145)
[2021-05-21 15:23] LABS: CALCIUM 9.1 MG/DL (8.5-10.1)
[2021-05-21 15:24] LABS: GLUCOSE 87 MG/DL (70-105); TOTAL PROTEIN 6.7 GM/DL (6.4-8.2)
[2021-05-21 15:25] LABS: CARBON DIOXIDE 24 MMOL/L (21-32)
[2021-05-21 15:26] LABS: BILIRUBIN,TOTAL 0.8 MG/DL (0.1-1.0)
[2021-05-21 15:28] LABS: ALKALINE PHOSPHATASE 74 U/L (40-136); CREATININE SERUM 0.85 MG/DL (0.60-1.30); GFR ESTIMATED 98
[2021-05-21 15:29] LABS: BUN/CREATININE RATIO 12
[2021-05-21 15:31] LABS: ALANINE AMINOTRANSFERASE 12 U/L (0-55)
[2021-05-21 15:36] LABS: AMPHETAMINE SCREEN, URINE NEGATIVE (NEGATIVE); BARBITURATE SCREEN URINE NEGATIVE (NEGATIVE); BENZODIAZEPINES SCREEN URINE NEGATIVE (NEGATIVE); CANNABINOID SCREEN, URINE POSITIVE (NEGATIVE); COCAINE SCREEN URINE NEGATIVE (NEGATIVE); METHADONE STAT NEGATIVE (NEGATIVE); METHAMPHETAMINE SCREEN URINE S NEGATIVE (NEGATIVE); OPIATE SCREEN URINE NEGATIVE (NEGATIVE); OXYCODONE STAT NEGATIVE (NEGATIVE); PROPOXYPHENE STAT NEGATIVE (NEGATIVE); TRICYCLIC ANTIDEPRESSANTS SCRE NEGATIVE (NEGATIVE)
[2021-05-21 15:39] LABS: BACTERIA,URINE NEGATIVE /HPF
--- NOTE | 2021-05-21 16:10 | Diagnostic Imaging Report ---
PROCEDURE: CT head without contrast. TECHNIQUE: Multiple contiguous axial images were obtained through the brain without the use of intravenous contrast. Auto Exposure Controls were utilized during the CT exam to meet ALARA standards for radiation dose reduction. INDICATION: Altered mental status. COMPARISON: 04/26/2021. FINDINGS: Old infarcts of the convexity of the posterior left frontal lobe and lateral margins of the right parieto-occipital lobes are again identified. These are stable compared to prior exam. There is also background chronic small vessel ischemic change in the deep white matter. There is no new large area of loss of normal mujica-white matter junction differentiation to suggest new evolving acute territorial infarct. Ventricles and cortical sulci remain mildly diffusely prominent consistent with underlying age-related parenchymal volume loss. There is no new mass effect or midline shift. No intra or extra-axial intracranial hemorrhage is seen. No other extra-axial masses or fluid collections are identified. Bony calvarium is intact. Included portions of the paranasal sinuses and mastoid air cells are clear. IMPRESSION: 1. No acute intracranial abnormality. No CT evidence of acute infarct, mass, nor hemorrhage. 2. Old infarcts of the bilateral cerebral hemispheres with background age-related parenchymal volume loss and chronic small vessel ischemic changes in the deep white matter. Dictated by: Dictated on workstation # [id number]
[2021-05-21] MEDS ORDERED: lisINopril 20 MG (PRINIVIL) TABLET PO ONE (17:00)
[2021-05-21 17:05] VITALS: BP 177/96
== END 2021-05-21 17:05 | disposition home or self-care (01) ==
LOC: ER 14:42 → EDUNIT# 14:42 → ER 17:05
DX: I95.89 Other hypotension (principal)
CPT/HCPCS: 36415; 70450; 80053; 80306; 80320; 81000; 85025

== ENCOUNTER 2021-06-10 16:10 | Emergency (ER) | payer OTHER ==
[~2021-06-10] VITALS: Ht 187 cm; Wt 77.1 kg
--- NOTE | 2021-06-10 16:34 | ED General ---
General Chief Complaint: Dizziness/Syncope Stated Complaint: UNRESPONSIVE Nursing Triage Note: PT TO [facility] BY [facility] WITH CC OF HOME HEALTH STATING PT HAD A SYNCOPAL EPISODE. PT STATES HE SMOKED SOME POT PRIOR TO PASSING OUT. STATES HE IS HUNGRY NOW. Source of Information: Patient Exam Limitations: No Limitations History of Present Illness Date Seen by Provider: Jun 10, 2021 Time Seen by Provider: 16:34 Initial Comments To ER by [facility] from home with reports that he was unresponsive upon evaluation by home health. They thought he had a syncopal event. Patient states that he felt very "blah" though after being aroused by EMS he is more alert. His blood pressure on arrival was about 90 systolic. However during transport it divina up to about 130-140 systolic. Patient states that he had just smoked a joint about 1 hour prior to this and thinks he is just "stoned as fuck". He would like a meal tray now. History of CVA with right-sided hemiparesis. Timing/Duration: 1-3 Hours Severity: Moderate Associated Systoms: Denies Symptoms Allergies and Home Medications Allergies Coded Allergies: No Known Drug Allergies (Unverified , 03/13/18) Patient Home Medication List Home Medication List Reviewed: Yes Acetaminophen (Tylenol 8 Hour) 650 Mg Tablet.er, 650 MG PO Q4H PRN for PAIN-MILD (1-4), (Reported) Entered as Reported by: RENNY STEPHENS on 01/05/21 0928 Albuterol Sulfate (Proair Hfa) 1 Puff Puff, 2 PUFF IH Q6H PRN for SHORTNESS OF BREATH, (Reported) Entered as Reported by: ANNA KOVACS on 10/19/20 1328 Aspirin (Aspirin EC) 325 Mg Tablet.dr, 325 MG PO DAILY, (Reported) Entered as Reported by: ANNA KOVACS on 10/19/20 1328 Atorvastatin Calcium (Atorvastatin Calcium) 80 Mg Tablet, 80 MG PO HS, (Reported) Entered as Reported by: RENNY STEPHENS on 04/28/20 1607 Baclofen (Baclofen) 10 Mg Tablet, 10 MG PO Q8H PRN for MUSCLE SPASMS, (Reported) Entered as Reported by: LEYLA ESPINOZA on 03/13/18 1354 Bupropion HCl (Bupropion HCl Sr) 150 Mg Tablet.er, 150 MG PO BID, (Reported) Entered as Reported by: RENNY STEPHENS on 01/05/21927 Celecoxib (Celebrex) 200 Mg Capsule, 200 MG PO DAILY, (Reported) Entered as Reported by: RENNY STEPHENS on 01/05/21927 Cholecalciferol (Vitamin D3) (Vitamin D3) 50 Mcg Tablet, 50 MCG PO DAILY, (Reported) Entered as Reported by: ANNA KOVACS on 10/19/20 132 Clopidogrel Bisulfate (Plavix) 75 Mg Tablet, 75 MG PO DAILY, (Reported) Entered as Reported by: LEYLA ESPINOZA on 03/13/18 1354 Fluticasone Propionate (Fluticasone Propionate) 16 Gm [place].susp, 2 SPRAYS NSEACH DAILY, (Reported) Entered as Reported by: ANNA KOVACS on 10/19/20 132 Gabapentin (Neurontin) 300 Mg Capsule, 900 MG PO TID, (Reported) Entered as Reported by: ANNA KOVACS on 10/19/20 132 Lisinopril (Lisinopril) 40 Mg Tablet, 20 MG PO DAILY, (Reported) Entered as Reported by: ANNA KOVACS on 10/19/20 132 Loratadine (Loratadine) 10 Mg Tablet, 10 MG PO DAILY, (Reported) Entered as Reported by: RENNY STEPHENS on 04/26/21 1229 Montelukast Sodium (Montelukast Sodium) 10 Mg Tablet, 10 MG PO HS, (Reported) Entered as Reported by: RENNY STEPHENS on 04/26/21 122 Review of Systems Review of Systems Constitutional: see HPI EENTM: see HPI Respiratory: no symptoms reported Cardiovascular: no symptoms reported Genitourinary: no symptoms reported Musculoskeletal: no symptoms reported Skin: no symptoms reported Psychiatric/Neurological: No Symptoms Reported Hematologic/Lymphatic: No Symptoms Reported Immunological/Allergic: no symptoms reported Past Xynjtyl-Wxzxwv-Aduerl Hx Patient Social History Tobacco Use?: Yes Tobacco type used: Cigarettes Substance use?: Yes Substance type: Marijuana Alcohol Use?: No Immunizations Up To Date Tetanus Booster (TDap): Less than 5yrs First/Initial COVID19 Vaccinat: 11/10 Second COVID19 Vaccination Oskar: 12/10 Third COVID19 Vaccination Date: 11/10 Seasonal Allergies Seasonal Allergies: No Past Medical History Surgery/Hospitalization HX: cardiac stents, spinal sx, appy, bilateral carotid endartectomy, Surgeries: Yes (EYES;C+L SPINE;CARDIAC CATHS-STENTS X3;BILAT CAROTID ENDART;FOOT;SKIN CA) Angioplasty, Appendectomy, Cardiac, Coronary Stent, Eye Surgery, Orthopedic, Vascular Surgery Respiratory: Yes Pneumonia, Chronic Bronchitis, COPD, Emphysema Currently Using CPAP: No Currently Using BIPAP: No Cardiac: Yes (CARDIAC CATHS-STENTS X3; BILAT CAROTID ENDARTERECTOMIES;R CAROTID STENT) Coronary Artery Disease, High Cholesterol, Hypertension, Peripheral Vascular Neurological: Yes (stroke Jan 20, 2020-RIGHT SIDE PARALYSI, R sided stent placed; TIA 03/23/20) Neuropathy, Stroke Reproductive Disorders: No Sexually Transmitted Disease: No HIV/AIDS: No Genitourinary: No Benign Prostatic Hyperpl, Renal Failure Gastrointestinal: Yes (HEPATITIS C--S/P TREATMENT) Gastroesophageal Reflux Musculoskeletal: Yes (CHRONIC NECK AND BACK PAIN-S/P C-SPINE + L-SPINE SURGERY; L FOOT FX/ORIF) Chronic Back Pain Endocrine: No HEENT: Yes (READING GLASSES;EYE SURGERY CHILD) Loss of Vision: Bilateral Hearing Impairment: Hard of Hearing Cancer: Yes Skin Did You Recieve Any Treatments: Yes What Type of Treatment Did You: Surgical Intervention Psychosocial: Yes (SUBSTANCE ABUSE) Anxiety, Violent Behavior, Depression Integumentary: Yes (SKIN CANCER-GETS BLISTERS) Recent Skin Changes Blood Disorders: No Adverse Reaction/Blood Tranf: No Family Medical History Cancer 19 FATHER (SKIN) 19 MOTHER Cancer of colon 19 MOTHER Kidney disease 19 FATHER (PASSED KIDNEY FAILURE) SOCIAL HISTORY: -ETOH--OCCASIONAL USE, HX OF HEAVY USE -DRUGS--DAILY MARIJUANA USE, ALSO METH USE. DENIES IV DRUG USE -SMOKES 2 PPD PAST SURGICAL HISTORY: -LAST CARDIAC CATH DONE HERE IN 2013--PATENT STENTS -CARDIAC CATHS WITH STENTS X 3 -BILATERAL CAROTID ENDARTERECTOMY -RIGHT CAROTID STENT 01/21/20 AT -RIGHT EYE SURGERY CHILD -CERVICAL SPINE AND LUMBAR SPINE SURGERIES -LEFT FOOT FRACTURE/ ORIF -SKIN CANCER REMOVAL -APPENDECTOMY -STRESS TEST 01/05/[address] ALVAREZ: 1. Patient tolerated Lexiscan well, and transient episode of hypotension, responded to IV fluid 2. Diaphragmatic attenuation with no significant ischemia or infarction on SPECT images 3. Normal left ventricular size, EF 66% Physical Exam Vital Signs Vital Signs - First Documented 06/10/21 16:24 Temp 36.6 Pulse 67 Resp 16 B/P (MAP) 165/80 (108) Pulse Ox 98 O2 Delivery Room Air Capillary Refill : Less Than 3 Seconds Height, Weight, BMI Height: 6'1.00" Weight: 195lbs. 0oz. [id number]; 22.00 BMI Method:Actual General Appearance: No Apparent Distress, WD/WN, Chronically ill, Other (Alert oriented denies any new symptoms. States he is just hungry. Conversation is clear and appropriate. Blood pressure is 165/80 heart rate 67. He states that he smokes marijuana but does not use meth though he states that he did used to use meth but "that is what made me have the stroke") Neck: Full Range of Motion, Normal Inspection Respiratory: No Accessory Muscle Use, No Respiratory Distress Cardiovascular: Regular Rate, Rhythm, Normal Peripheral Pulses Gastrointestinal: Normal Bowel Sounds, Non Tender, Soft Extremity: Normal Capillary Refill, Normal Inspection, Other (chronic and unchanged right-sided hemiparesis) Neurologic/Psychiatric: Alert, Oriented x3 Focused Exam Lactate Level 06/10/21 17:25: Lactic Acid Level 1.69 Lactic Acid Level Laboratory Tests Test 06/10/21 17:25 Lactic Acid Level 1.69 MMOL/L (0.50-2.00) Progress/Results/Core Measures Suspected Sepsis SIRS Temperature: Pulse: 67 Respiratory Rate: 16 Laboratory Tests 06/10/21 16:25: White Blood Count 16.9H Blood Pressure 165 /80 Mean: 108 06/10/21 17:25: Lactic Acid Level 1.69 Laboratory Tests 06/10/21 16:25: Creatinine 1.07, Platelet Count 204, Total Bilirubin 1.3H Results/Orders Lab Results Laboratory Tests Test 06/10/21 16:25 06/10/21 16:40 06/10/21 16:53 06/10/21 17:25 Range/Units White Blood Count 16.9 H 4.3-11.0 10^3/uL Red Blood Count 4.31 4.30-5.52 10^6/uL Hemoglobin 12.7 L 13.3-17.7 g/dL Hematocrit 39 L 40-54 % Mean Corpuscular Volume 91 80-99 fL Mean Corpuscular Hemoglobin 30 25-34 pg Mean Corpuscular Hemoglobin Concent 32 32-36 g/dL Red Cell Distribution Width 13.3 10.0-14.5 % Platelet Count 204 130-400 10^3/uL Mean Platelet Volume 11.6 9.0-12.2 fL Immature Granulocyte % (Auto) 1 % Neutrophils (%) (Auto) 84 H 42-75 % Lymphocytes (%) (Auto) 8 L 12-44 % Monocytes (%) (Auto) 5 0-12 % Eosinophils (%) (Auto) 2 0-10 % Basophils (%) (Auto) 0 0-10 % Neutrophils # (Auto) 14.2 H 1.8-7.8 10^3/uL Lymphocytes # (Auto) 1.4 1.0-4.0 10^3/uL Monocytes # (Auto) 0.9 0.0-1.0 10^3/uL Eosinophils # (Auto) 0.3 0.0-0.3 10^3/uL Basophils # (Auto) 0.1 0.0-0.1 10^3/uL Immature Granulocyte # (Auto) 0.1 0.0-0.1 10^3/uL Neutrophils % (Manual) 85 % Lymphocytes % (Manual) 10 % Monocytes % (Manual) 4 % Eosinophils % (Manual) 1 % Blood Morphology Comment NORMAL Sodium Level 142 135-145 MMOL/L Potassium Level 3.7 3.6-5.0 MMOL/L Chloride Level 104 98-107 MMOL/L Carbon Dioxide Level 25 21-32 MMOL/L Anion Gap 13 5-14 MMOL/L Blood Urea Nitrogen 15 7-18 MG/DL Creatinine 1.07 0.60-1.30 MG/DL Estimat Glomerular Filtration Rate 77 BUN/Creatinine Ratio 14 Glucose Level 116 H 70-105 MG/DL Calcium Level 9.4 8.5-10.1 MG/DL Corrected Calcium 9.5 8.5-10.1 MG/DL Total Bilirubin 1.3 H 0.1-1.0 MG/DL Aspartate Amino Transf (AST/SGOT) 10 5-34 U/L Alanine Aminotransferase (ALT/SGPT) 12 0-55 U/L Alkaline Phosphatase 74 40-136 U/L Total Protein 6.3 L 6.4-8.2 GM/DL Albumin 3.9 3.2-4.5 GM/DL Serum Alcohol < 10 <10 MG/DL Procalcitonin 0.05 <0.10 NG/ML Urine Color YELLOW Urine Clarity CLEAR Urine pH 6.5 5-9 Urine Specific [place] 1.020 1.016-1.022 Urine Protein TRACE H NEGATIVE Urine Glucose (UA) NEGATIVE NEGATIVE Urine Ketones NEGATIVE NEGATIVE Urine Nitrite NEGATIVE NEGATIVE Urine Bilirubin NEGATIVE NEGATIVE Urine Urobilinogen >=8.0 < = 1.0 MG/DL Urine Leukocyte Esterase NEGATIVE NEGATIVE Urine RBC (Auto) NEGATIVE NEGATIVE Urine RBC NONE /HPF Urine WBC NONE /HPF Urine Squamous Epithelial Cells NONE /HPF Urine Crystals NONE /LPF Urine Bacteria NEGATIVE /HPF Urine Casts NONE /LPF Urine Mucus NEGATIVE /LPF Urine Culture Indicated NO Urine Opiates Screen NEGATIVE NEGATIVE Urine Oxycodone Screen NEGATIVE NEGATIVE Urine Methadone Screen NEGATIVE NEGATIVE Urine Propoxyphene Screen NEGATIVE NEGATIVE Urine Barbiturates Screen NEGATIVE NEGATIVE Ur Tricyclic Antidepressants Screen NEGATIVE NEGATIVE Urine Phencyclidine Screen NEGATIVE NEGATIVE Urine Amphetamines Screen NEGATIVE NEGATIVE Urine Methamphetamines Screen NEGATIVE NEGATIVE Urine Benzodiazepines Screen NEGATIVE NEGATIVE Urine Cocaine Screen NEGATIVE NEGATIVE Urine Cannabinoids Screen POSITIVE H NEGATIVE Lactic Acid Level 1.69 0.50-2.00 MMOL/L My Orders Orders - SONIA CRISTOBAL APRN Cbc With Automated Diff (06/10/21 16:31) Comprehensive Metabolic Panel (06/10/21 16:31) Ua Culture If Indicated (06/10/21 16:31) Drug Screen Stat (Urine) (06/10/21 16:31) Alcohol (06/10/21 16:31) Ed Iv/Invasive Line Start (06/10/21 16:31) General/Regular (06/10/21 Lunch) Manual Differential (06/10/21 16:25) Chest 1 View, Ap/Pa Only (06/10/21 17:01) Procalcitonin (Pct) (06/10/21 17:01) Blood Culture (06/10/21 17:01) Lactic Acid Analyzer (06/10/21 17:01) Lactated Ringers (Lr 1000 Ml Iv Solution (06/10/21 17:15) Vital Signs/I&O 06/10/21 16:24 Temp 36.6 Pulse 67 Resp 16 B/P (MAP) 165/80 (108) Pulse Ox 98 O2 Delivery Room Air Capillary Refill : Less Than 3 Seconds Blood Pressure Mean: 108 Departure Communication (Admissions) 1821-remains alert and oriented very talkative hemodynamically stable with a blood pressure of 125/76. He has eaten 2 cheeseburgers and states that he feels fine. Daughter is on her way to come get him. Impression Primary Impression: Marijuana use Disposition: 01 HOME, SELF-CARE Condition: Improved Departure-Patient Inst. Decision time for Depature: 16:38 Referrals: YUMIKO HERNANDEZ MD (PCP/Family) Primary Care Physician Patient Instructions: NO INSTRUCTIONS GIVEN SONIA CRISTOBAL WIRE THREADER Jun 10, 2021 16:34
[2021-06-10 16:43] LABS: ALBUMIN 3.9 GM/DL (3.2-4.5); BASOPHILS # (AUTO) 0.1 10^3/uL (0.0-0.1); BASOPHILS % (AUTO) 0 % (0-10); CHLORIDE 104 MMOL/L (98-107); EOSINOPHILS # (AUTO) 0.3 10^3/uL (0.0-0.3); EOSINOPHILS % (AUTO) 2 % (0-10); HEMATOCRIT 39 % (40-54); HEMOGLOBIN 12.7 g/dL (13.3-17.7); LYMPHOCYTES # (AUTO) 1.4 10^3/uL (1.0-4.0); LYMPHOCYTES % (AUTO) 8 % (12-44); MEAN CORPUSCULAR HEMOGLOBIN 30 pg (25-34); MEAN CORPUSCULAR HGB CONC 32 g/dL (32-36); MEAN CORPUSCULAR VOLUME 91 fL (80-99); MEAN PLATELET VOLUME 11.6 fL (9.0-12.2); MONOCYTES # (AUTO) 0.9 10^3/uL (0.0-1.0); MONOCYTES % (AUTO) 5 % (0-12); NEUTROPHILS # (AUTO) 14.2 10^3/uL (1.8-7.8); NEUTROPHILS % (AUTO) 84 % (42-75); PLATELET COUNT 204 10^3/uL (130-400); POTASSIUM 3.7 MMOL/L (3.6-5.0); SODIUM 142 MMOL/L (135-145); WHITE BLOOD COUNT 16.9 10^3/uL (4.3-11.0)
[2021-06-10 16:44] LABS: CALCIUM 9.4 MG/DL (8.5-10.1)
[2021-06-10 16:46] LABS: GLUCOSE 116 MG/DL (70-105); TOTAL PROTEIN 6.3 GM/DL (6.4-8.2)
[2021-06-10 16:47] LABS: CARBON DIOXIDE 25 MMOL/L (21-32)
[2021-06-10 16:48] LABS: BILIRUBIN,TOTAL 1.3 MG/DL (0.1-1.0)
[2021-06-10 16:49] LABS: ALKALINE PHOSPHATASE 74 U/L (40-136); CREATININE SERUM 1.07 MG/DL (0.60-1.30); GFR ESTIMATED 77
[2021-06-10 16:51] LABS: BUN/CREATININE RATIO 14
[2021-06-10 16:52] LABS: ALANINE AMINOTRANSFERASE 12 U/L (0-55)
[2021-06-10 17:02] LABS: BILIRUBIN,URINE NEGATIVE (NEGATIVE); CLARITY,URINE CLEAR; COLOR,URINE YELLOW; GLUCOSE, URINE (UA) NEGATIVE (NEGATIVE); KETONES,URINE NEGATIVE (NEGATIVE); LEUKOCYTE ESTERASE ,URINE NEGATIVE (NEGATIVE); NITRITE,URINE NEGATIVE (NEGATIVE); PH,URINE 6.5 (5-9); PROTEIN,URINE TRACE (NEGATIVE)
[2021-06-10] MEDS ORDERED: LACTATED RINGERS 1,000 ML IV SCH (17:15)
--- NOTE | 2021-06-10 17:15 | Diagnostic Imaging Report ---
INDICATION: Leukocytosis. Comparison is made with prior exam of 05/10/2021. FINDINGS: There is cardiomegaly. There is some bibasilar atelectasis and/or pneumonitis. There are some colon interposed between the liver and right hemidiaphragm. No pneumothorax. Mediastinum is unremarkable. IMPRESSION: Cardiomegaly with some bibasilar atelectasis and/or pneumonitis. Dictated by: Dictated on workstation # [id number]
[2021-06-10 17:25] LABS: AMPHETAMINE SCREEN, URINE NEGATIVE (NEGATIVE); BARBITURATE SCREEN URINE NEGATIVE (NEGATIVE); BENZODIAZEPINES SCREEN URINE NEGATIVE (NEGATIVE); CANNABINOID SCREEN, URINE POSITIVE (NEGATIVE); COCAINE SCREEN URINE NEGATIVE (NEGATIVE); METHADONE STAT NEGATIVE (NEGATIVE); METHAMPHETAMINE SCREEN URINE S NEGATIVE (NEGATIVE); OPIATE SCREEN URINE NEGATIVE (NEGATIVE); OXYCODONE STAT NEGATIVE (NEGATIVE); PROPOXYPHENE STAT NEGATIVE (NEGATIVE); TRICYCLIC ANTIDEPRESSANTS SCRE NEGATIVE (NEGATIVE)
[2021-06-10 18:02] LABS: EOSINOPHILS % (MANUAL) 1 %; LYMPHOCYTES % (MANUAL) 10 %; MONOCYTES % (MANUAL) 4 %; NEUTROPHILS % (MANUAL) 85 %; RBC MORPH NORMAL
[2021-06-10 18:26] VITALS: BP 125/76
[2021-06-10 22:47] LABS: BACTERIA,URINE FEW /HPF; SQUAMOUS EPITHELIAL CELL,UR 0-2 /HPF; WBC,URINE 0-2 /HPF
== END 2021-06-10 18:26 | disposition home or self-care (01) ==
LOC: EDUNIT# 16:10 → ER 16:15
DX: F12.10 Cannabis abuse, uncomplicated (principal); R03.0 Elevated blood-pressure reading, without diagnosis of hypertension; F17.210 Nicotine dependence, cigarettes, uncomplicated
CPT/HCPCS: 36415; 71045; 80053; 80306; 80320; 81000; 83605; 84145; 85007; 85027; 87040; 87088

== ENCOUNTER 2021-06-24 14:00 | Emergency (ER) | payer OTHER ==
[~2021-06-24] VITALS: Ht 180.3 cm; Wt 79.0 kg
[~2021-06-24 14:00] MED LIST changes: +BUPR-105 PO; -BUPR150T14 PO
--- NOTE | 2021-06-24 14:25 | ED General ---
General Chief Complaint: Cardiac/General Problems Stated Complaint: HYPOTENSION Nursing Triage Note: PT BROUGHT IN BY [facility] FROM HOME WITH COMPLAINT OF HYPOTENSION. PT TOLD EMS HE SMOKED MARIJUANA PRIOR TO EMS ARRIVAL. PT WAS FOUND BY CAREGIVER. Source of Information: Patient, Old Records Exam Limitations: No Limitations History of Present Illness Date Seen by Provider: June 24, 2021 Time Seen by Provider: 14:10 Initial Comments Patient is a 66-year-old male brought to the emergency department by EMS for reports of low blood pressure. Apparently the patient has been here before for similar complaints. He denies any symptoms whatsoever currently except for being tired/sleepy. He denies headache, vision changes, speech difficulty. No numbness weakness or tingling. No chest pain. Chronic shortness of breath. No abdominal pain, nausea vomiting or diarrhea. No problems with bladder although he states his urine is a little dark. EMS reported to his nurse that they had to lay him down to get a blood pressure. On arrival he is in the 130s. Pulse is in the upper 50s. He is awake alert and oriented. Able to tell me all of his daily medications. He only takes medicines for hypertension. No recent fevers, chills, URI symptoms. He did smoke marijuana about 30 to 45 minutes prior to arrival. Allegedly that is what he did prior to his last visit as well. He states marijuana always makes him very sleepy. All other review of systems reviewed and negative except as stated Timing/Duration: 1 Hour Associated Systoms: Denies Symptoms Allergies and Home Medications Allergies Coded Allergies: No Known Drug Allergies (Unverified , 03/13/18) Patient Home Medication List Home Medication List Reviewed: Yes Acetaminophen (Tylenol 8 Hour) 650 Mg Tablet.er, 650 MG PO Q4H PRN for PAIN-MILD (1-4), (Reported) Entered as Reported by: RENNY STEPHENS on 01/05/21 0928 Albuterol Sulfate (Proair Hfa) 1 Puff Puff, 2 PUFF IH Q6H PRN for SHORTNESS OF BREATH, (Reported) Entered as Reported by: ANNA KOVACS on 10/19/20 1328 Aspirin (Aspirin EC) 325 Mg Tablet.dr, 325 MG PO DAILY, (Reported) Entered as Reported by: ANNA KOVACS on 10/19/20 1328 Atorvastatin Calcium (Atorvastatin Calcium) 80 Mg Tablet, 80 MG PO HS, (Reported) Entered as Reported by: RENNY STEPHENS on 04/28/20 1607 Baclofen (Baclofen) 10 Mg Tablet, 10 MG PO Q8H PRN for MUSCLE SPASMS, (Reported) Entered as Reported by: LEYLA ESPINOZA on 03/13/18 1354 Bupropion HCl (Bupropion HCl Sr) 150 Mg Tablet.er, 150 MG PO BID, (Reported) Entered as Reported by: RENNY STEPHENS on 01/05/21 09 Celecoxib (Celebrex) 200 Mg Capsule, 200 MG PO DAILY, (Reported) Entered as Reported by: RENNY STEPHENS on 01/05/21 09 Cholecalciferol (Vitamin D3) (Vitamin D3) 50 Mcg Tablet, 50 MCG PO DAILY, (Reported) Entered as Reported by: ANNA KOVACS on 10/19/20 1328 Clopidogrel Bisulfate (Plavix) 75 Mg Tablet, 75 MG PO DAILY, (Reported) Entered as Reported by: LEYLA ESPINOZA on 03/13/18 1354 Fluticasone Propionate (Fluticasone Propionate) 16 Gm [place].susp, 2 SPRAYS NSE ACH DAILY, (Reported) Entered as Reported by: ANNA KOVACS on 10/19/20 1328 Gabapentin (Neurontin) 300 Mg Capsule, 900 MG PO TID, (Reported) Entered as Reported by: ANNA KOVACS on 10/19/20 1328 Lisinopril (Lisinopril) 40 Mg Tablet, 20 MG PO DAILY, (Reported) Entered as Reported by: ANNA KOVACS on 10/19/20 1328 Loratadine (Loratadine) 10 Mg Tablet, 10 MG PO DAILY, (Reported) Entered as Reported by: RENNY STEPHENS on 04/26/21 1229 Montelukast Sodium (Montelukast Sodium) 10 Mg Tablet, 10 MG PO HS, (Reported) Entered as Reported by: RENNY STEPHENS on 04/26/21 1229 Review of Systems Review of Systems Constitutional: see HPI EENTM: no symptoms reported Respiratory: no symptoms reported Cardiovascular: no symptoms reported Gastrointestinal: no symptoms reported Genitourinary: no symptoms reported Musculoskeletal: no symptoms reported Skin: no symptoms reported Psychiatric/Neurological: Other (sleepy) All Other Systems Reviewed Negative Unless Noted: Yes Past Kznmwaa-Glrtrj-Ahaxyk Hx Patient Social History Tobacco Use?: Yes Smoking Status: Unknown if Ever Smoked Use of E-Cig and/or Vaping dev: No Substance use?: Yes Substance type: Marijuana Alcohol Use?: No Pt feels they are or have been: No Immunizations Up To Date Tetanus Booster (TDap): Less than 5yrs First/Initial COVID19 Vaccinat: 11/10 Second COVID19 Vaccination Oskar: 12/10 Third COVID19 Vaccination Date: 11/10 Seasonal Allergies Seasonal Allergies: No Past Medical History Surgery/Hospitalization HX: cardiac stents, spinal sx, appy, bilateral carotid endartectomy, Surgeries: Yes (EYES;C+L SPINE;CARDIAC CATHS-STENTS X3;BILAT CAROTID ENDART;FOOT;SKIN CA) Angioplasty, Appendectomy, Cardiac, Coronary Stent, Eye Surgery, Orthopedic, Vascular Surgery Respiratory: Yes Pneumonia, Chronic Bronchitis, COPD, Emphysema Currently Using CPAP: No Currently Using BIPAP: No Cardiac: Yes (CARDIAC CATHS-STENTS X3; BILAT CAROTID ENDARTERECTOMIES;R CAROTID STENT) Coronary Artery Disease, High Cholesterol, Hypertension, Peripheral Vascular Neurological: Yes (stroke Jan 20, 2020-RIGHT SIDE PARALYSI, R sided stent placed; TIA 03/23/20) Neuropathy, Stroke Reproductive Disorders: No Sexually Transmitted Disease: No HIV/AIDS: No Genitourinary: No Benign Prostatic Hyperpl, Renal Failure Gastrointestinal: Yes (HEPATITIS C--S/P TREATMENT) Gastroesophageal Reflux Musculoskeletal: Yes (CHRONIC NECK AND BACK PAIN-S/P C-SPINE + L-SPINE SURGERY; L FOOT FX/ORIF) Chronic Back Pain Endocrine: No HEENT: Yes (READING GLASSES;EYE SURGERY CHILD) Loss of Vision: Bilateral Hearing Impairment: Hard of Hearing Cancer: Yes Skin Did You Recieve Any Treatments: Yes What Type of Treatment Did You: Surgical Intervention Psychosocial: Yes (SUBSTANCE ABUSE) Anxiety, Violent Behavior, Depression Integumentary: Yes (SKIN CANCER-GETS BLISTERS) Recent Skin Changes Blood Disorders: No Adverse Reaction/Blood Tranf: No Family Medical History Cancer 19 FATHER (SKIN) 19 MOTHER Cancer of colon 19 MOTHER Kidney disease 19 FATHER (PASSED KIDNEY FAILURE) SOCIAL HISTORY: -ETOH--OCCASIONAL USE, HX OF HEAVY USE -DRUGS--DAILY MARIJUANA USE, ALSO METH USE. DENIES IV DRUG USE -SMOKES 2 PPD PAST SURGICAL HISTORY: -LAST CARDIAC CATH DONE HERE IN 2013--PATENT STENTS -CARDIAC CATHS WITH STENTS X 3 -BILATERAL CAROTID ENDARTERECTOMY -RIGHT CAROTID STENT 01/21/20 AT -RIGHT EYE SURGERY CHILD -CERVICAL SPINE AND LUMBAR SPINE SURGERIES -LEFT FOOT FRACTURE/ ORIF -SKIN CANCER REMOVAL -APPENDECTOMY -STRESS TEST 01/05/[address] ALVAREZ: 1. Patient tolerated Lexiscan well, and transient episode of hypotension, responded to IV fluid 2. Diaphragmatic attenuation with no significant ischemia or infarction on SPECT images 3. Normal left ventricular size, EF 66% Physical Exam Vital Signs Vital Signs - First Documented 06/24/21 14:01 Pulse 55 Resp 21 B/P (MAP) 134/85 (101) Pulse Ox 99 O2 Delivery Room Air Capillary Refill : Less Than 3 Seconds Height, Weight, BMI Height: 6'1.00" Weight: 195lbs. 0oz. 88.687802qg; 24.00 BMI Method:Actual General Appearance: No Apparent Distress, Thin Eyes: Bilateral Eye Normal Inspection, Bilateral Eye PERRL, Bilateral Eye EOMI HEENT: PERRL/EOMI Neck: Normal Inspection Respiratory: Lungs Clear, Normal Breath Sounds, No Accessory Muscle Use Cardiovascular: Regular Rate, Rhythm (50's), Normal Peripheral Pulses (2+ radial bilaterally) Gastrointestinal: Non Tender, Soft Extremity: Normal Inspection, Normal Range of Motion, No Pedal Edema Neurologic/Psychiatric: Alert, Oriented x3, No Motor/Sensory Deficits, Normal Mood/Affect, neck band operator II-XII Norm as Tested Skin: Normal Color, Warm/Dry Progress/Results/Core Measures Suspected Sepsis SIRS Temperature: Pulse: 55 Respiratory Rate: 21 Blood Pressure 134 /85 Mean: 101 Results/Orders Vital Signs/I&O 06/24/21 14:01 Pulse 55 Resp 21 B/P (MAP) 134/85 (101) Pulse Ox 99 O2 Delivery Room Air Capillary Refill : Less Than 3 Seconds Blood Pressure Mean: 101 Progress Note #1: Time: 14:23 Progress Note Patient seen and examined, no current complaints. Report by EMS of hypotension as relayed by caregiver. Patient uses marijuana and typically gets very sleepy he states. He is adamant about no emergent concerns. Physical exam is unrema rkable. He is yawning and does appear tired but is able to answer questions appropriately. Patient will be monitored for a time here in the emergency department and then sent home. I was able to sit him up in the bed, sitting blood pressure was 143 systolic. He did not become tachycardic his pulse remained in the 50s. He did not complain of orthostatic symptoms Progress Note #2: Time: 15:19 Progress Note d/c blood pressure 145/73. remains without complaint. Departure Impression Primary Impression: Low blood pressure reading Additional Impression: Marijuana use Disposition: 01 HOME, SELF-CARE Condition: Stable Departure-Patient Inst. Decision time for Depature: 14:25 Referrals: YUMIKO HERNANDEZ MD (PCP/Family) Primary Care Physician Add. Discharge Instructions: You should probably stop smoking marijuana if it is causing her blood pressure to get low. Drink plenty of fluids to stay well-hydrated. Follow-up with your primary care doctor Return to the emergency department for any new, concerning or emergent complaints. PAWEL DASH MD June 24, 2021 14:25
[2021-06-24 15:29] VITALS: BP 158/86
== END 2021-06-24 15:29 | disposition home or self-care (01) ==
LOC: EDUNIT# 14:00 → ER 14:02
DX: I95.9 Hypotension, unspecified (principal); F12.10 Cannabis abuse, uncomplicated; I10 Essential (primary) hypertension; Z79.899 Other long term (current) drug therapy

== ENCOUNTER 2021-08-15 15:50 | Emergency (ER) | payer OTHER ==
[~2021-08-15] VITALS: Ht 175 cm; Wt 81.0 kg
--- NOTE | 2021-08-15 16:54 | ED GI ---
General Chief Complaint: Abdominal/GI Problems Stated Complaint: CONSTIPATED Nursing Triage Note: patient states has not had a bm for two days. states history of constipation. Source of Information: Patient Exam Limitations: No Limitations (LARA GRIFFITHS) History of Present Illness Date Seen by Provider: Aug 15, 2021 Time Seen by Provider: 16:48 Initial Comments Patient presents to the ER for evaluation of constipation. He states he has struggled with constipation for years and normally his daughter gives him an enema. He states this episode of constipation started yesterday. He has not attempted any treatment prior to arrival. He denies severe pain, vomiting, bloody stools, unintentional weight loss, fever, night sweats or other symptoms at this time. Timing/Duration: 1 Day Severity/Quality: Moderate Radiation: No Radiation (LARA GRIFFITHS) Allergies and Home Medications Allergies Coded Allergies: No Known Drug Allergies (Unverified , 03/13/18) Patient Home Medication List Home Medication List Reviewed: Yes (LARA GRIFFITHS) Acetaminophen (Tylenol 8 Hour) 650 Mg Tablet.er, 650 MG PO Q4H PRN for PAIN-MILD (1-4), (Reported) Entered as Reported by: RENNY STEPHENS on 01/05/21 0928 Albuterol Sulfate (Proair Hfa) 1 Puff Puff, 2 PUFF IH Q6H PRN for SHORTNESS OF BREATH, (Reported) Entered as Reported by: ANNA KOVACS on 10/19/20 1328 Aspirin (Aspirin EC) 325 Mg Tablet.dr, 325 MG PO DAILY, (Reported) Entered as Reported by: ANNA KOVACS on 10/19/20 1328 Atorvastatin Calcium (Atorvastatin Calcium) 80 Mg Tablet, 80 MG PO HS, (Reported) Entered as Reported by: RENNY STEPHENS on 04/28/20 1607 Baclofen (Baclofen) 10 Mg Tablet, 10 MG PO Q8H PRN for MUSCLE SPASMS, (Reported) Entered as Reported by: LEYLA ESPINOZA on 03/13/18 1354 Bupropion HCl (Bupropion HCl Sr) 150 Mg Tablet.er, 150 MG PO BID, (Reported) Entered as Reported by: RENNY STEPHENS on 01/05/21 0928 Celecoxib (Celebrex) 200 Mg Capsule, 200 MG PO DAILY, (Reported) Entered as Reported by: RENNY STEPHENS on 01/05/21 0928 Cholecalciferol (Vitamin D3) (Vitamin D3) 50 Mcg Tablet, 50 MCG PO DAILY, (Reported) Entered as Reported by: ANNA KOVACS on 10/19/20 1328 Clopidogrel Bisulfate (Plavix) 75 Mg Tablet, 75 MG PO DAILY, (Reported) Entered as Reported by: LEYLA ESPINOZA on 03/13/18 1354 Fluticasone Propionate (Fluticasone Propionate) 16 Gm [place].susp, 2 SPRAYS NSEACH DAILY, (Reported) Entered as Reported by: ANNA KOVACS on 10/19/20 1328 Gabapentin (Neurontin) 300 Mg Capsule, 900 MG PO TID, (Reported) Entered as Reported by: ANNA KOVACS on 10/19/20 1328 Lisinopril (Lisinopril) 40 Mg Tablet, 20 MG PO DAILY, (Reported) Entered as Reported by: ANNA KOVACS on 10/19/20 1328 Loratadine (Loratadine) 10 Mg Tablet, 10 MG PO DAILY, (Reported) Entered as Reported by: RENNY STEPHENS on 04/26/21 1229 Montelukast Sodium (Montelukast Sodium) 10 Mg Tablet, 10 MG PO HS, (Reported) Entered as Reported by: RENNY STEPHENS on 04/26/21 1229 Na Phos,M-B/Na Phos,Di-Ba (Fleet Enema Extra) 19 Gram-7 Gram/197 Ml Enema, 230 ML RC PRN Prescribed by: Pranav Griffiths on 08/15/211655 Polyethylene Glycol 3350 (Miralax) 17 Gram Powd.pack, 17 GM PO DAILY Prescribed by: Pranav Griffiths on 08/15/211655 Review of Systems Review of Systems Constitutional: no symptoms reported EENTM: No Symptoms Reported Respiratory: No Symptoms Reported Cardiovascular: No Symptoms Reported Gastrointestinal: Constipated Genitourinary: No Symptoms Reported Musculoskeletal: no symptoms reported Skin: no symptoms reported (LARA GRIFFITHS) Past Titaeuh-Cwwuzd-Fbesnm Hx Patient Social History Tobacco Use?: Yes Smoking Status: Current Everyday Smoker (LARA GRIFFITHS) Immunizations Up To Date Tetanus Booster (TDap): Less than 5yrs First/Initial COVID19 Vaccinat: 11/10 Second COVID19 Vaccination Oskar: 12/10 Third COVID19 Vaccination Date: 11/10 (LARA GRIFFITHS) Seasonal Allergies Seasonal Allergies: No (LARA GRIFFITHS) Past Medical History Surgery/Hospitalization HX: cardiac stents, spinal sx, appy, bilateral carotid endartectomy, Surgeries: Yes (EYES;C+L SPINE;CARDIAC CATHS-STENTS X3;BILAT CAROTID ENDART;FOOT;SKIN CA) Angioplasty, Appendectomy, Cardiac, Coronary Stent, Eye Surgery, Orthopedic, Vascular Surgery Respiratory: Yes Pneumonia, Chronic Bronchitis, COPD, Emphysema Currently Using CPAP: No Currently Using BIPAP: No Cardiac: Yes (CARDIAC CATHS-STENTS X3; BILAT CAROTID ENDARTERECTOMIES;R CAROTID STENT) Coronary Artery Disease, High Cholesterol, Hypertension, Peripheral Vascular Neurological: Yes (stroke Jan 20, 2020-RIGHT SIDE PARALYSI, R sided stent p laced; TIA 03/23/20) Neuropathy, Stroke Reproductive Disorders: No Sexually Transmitted Disease: No HIV/AIDS: No Genitourinary: No Benign Prostatic Hyperpl, Renal Failure Gastrointestinal: Yes (HEPATITIS C--S/P TREATMENT) Gastroesophageal Reflux Musculoskeletal: Yes (CHRONIC NECK AND BACK PAIN-S/P C-SPINE + L-SPINE SURGERY; L FOOT FX/ORIF) Chronic Back Pain Endocrine: No HEENT: Yes (READING GLASSES;EYE SURGERY CHILD) Loss of Vision: Bilateral Hearing Impairment: Hard of Hearing Cancer: Yes Skin Did You Recieve Any Treatments: Yes What Type of Treatment Did You: Surgical Intervention Psychosocial: Yes (SUBSTANCE ABUSE) Anxiety, Violent Behavior, Depression Integumentary: Yes (SKIN CANCER-GETS BLISTERS) Recent Skin Changes Blood Disorders: No Adverse Reaction/Blood Tranf: No (LARA GRIFFITHS) Family Medical History Cancer 19 FATHER (SKIN) 19 MOTHER Cancer of colon 19 MOTHER Kidney disease 19 FATHER (PASSED KIDNEY FAILURE) SOCIAL HISTORY: -ETOH--OCCASIONAL USE, HX OF HEAVY USE -DRUGS--DAILY MARIJUANA USE, ALSO METH USE. DENIES IV DRUG USE -SMOKES 2 PPD PAST SURGICAL HISTORY: -LAST CARDIAC CATH DONE HERE IN 2013--PATENT STENTS -CARDIAC CATHS WITH STENTS X 3 -BILATERAL CAROTID ENDARTERECTOMY -RIGHT CAROTID STENT 01/21/20 AT -RIGHT EYE SURGERY CHILD -CERVICAL SPINE AND LUMBAR SPINE SURGERIES -LEFT FOOT FRACTURE/ ORIF -SKIN CANCER REMOVAL -APPENDECTOMY -STRESS TEST 01/05/[address] ALVAREZ: 1. Patient tolerated Lexiscan well, and transient episode of hypotension, responded to IV fluid 2. Diaphragmatic attenuation with no significant ischemia or infarction on SPECT images 3. Normal left ventricular size, EF 66% (LARA GRIFFITHS) Physical Exam Vital Signs Vital Signs - First Documented 08/15/21 16:06 Temp 35.8 Pulse 64 Resp 20 B/P (MAP) 188/91 (123) Pulse Ox 97 O2 Delivery Room Air (RIVERA LAZO MD) Vital Signs Capillary Refill : Less Than 3 Seconds (LARA GRIFFITHS) Height/Weight/BMI Height: 6'1.00" Weight: 195lbs. 0oz. 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 He has a benign, nonsurgical abdomen. Given his history of constipation I recommended that we treat this with MiraLAX. I do not feel that emergent labs or CT imaging are indicated as there is no evidence for suspicion of acute peritonitis, obstruction, sepsis, dissection or other emergent condition. I did recommend that he follow-up closely with his primary care doctor given his recurrent episodes of constipation so they can do further work-up. Patient is in agreement to this care plan. (LARA GRIFFITHS) Impression Primary Impression: Constipation Disposition: 01 HOME, SELF-CARE Condition: Stable Departure-Patient Inst. Decision time for Depature: 16:53 (LARA GRIFFITHS) Referrals: YUMIKO HERNANDEZ MD (PCP/Family) Primary Care Physician Patient Instructions: Constipation, Adult (DC) Add. Discharge Instructions: Please follow-up with your primary care doctor as we discussed. Make sure you are drinking plenty of water and increase your fiber intake. I have also prescribed you MiraLAX and a fleets enema I would like you to self administer. Return to the emergency room with any severe changes or worsening of your sympt oms. All discharge instructions reviewed with patient and/or family. Voiced understanding. Scripts Na Phos,M-B/Na Phos,Di-Ba (Fleet Enema Extra) 19 Gram-7 Gram/197 Ml Enema 230 ML RC PRN for Constipation, #3 EA Prov: LARA GRIFFITHS 08/15/21 Polyethylene Glycol 3350 (Miralax) 17 Gram Powd.pack 17 GM PO DAILY for Constipation, #14 EACH Prov: LARA GRIFFITHS 08/15/21 ATTENDING PHYSICIAN NOTE: I was physically present as attending physician in the emergency department during the care of this patient, but I was not directly involved in the decision making or delivery of care for this patient. (RIVERA LAZO MD) LARA GRIFFITHS Aug 15, 2021 16:53 RIVERA LAZO MD Aug 15, 2021 19:37
[2021-08-15] MEDS ORDERED: POLY17PO6 PO (16:56)
[2021-08-15] MEDS ORDERED: NA P230E RC (16:56)
[2021-08-15 17:10] VITALS: BP 188/91
== END 2021-08-15 17:10 | disposition home or self-care (01) ==
LOC: EDUNIT# 15:50 → ER 15:51
DX: K59.00 Constipation, unspecified (principal); F17.200 Nicotine dependence, unspecified, uncomplicated
CPT/HCPCS: 99282

== ENCOUNTER 2021-09-10 09:34 | Emergency (ER) | payer OTHER ==
[~2021-09-10] VITALS: Ht 185 cm; Wt 82.0 kg
[~2021-09-10 09:34] MED LIST changes: +NA P230E RC; +POLY17PO6 PO
[2021-09-10 10:40] LABS: BILIRUBIN,URINE NEGATIVE (NEGATIVE); CLARITY,URINE CLEAR; COLOR,URINE YELLOW; GLUCOSE, URINE (UA) NEGATIVE (NEGATIVE); KETONES,URINE NEGATIVE (NEGATIVE); LEUKOCYTE ESTERASE ,URINE NEGATIVE (NEGATIVE); NITRITE,URINE NEGATIVE (NEGATIVE); PH,URINE 5.5 (5-9); PROTEIN,URINE NEGATIVE (NEGATIVE)
[2021-09-10 10:50] LABS: SQUAMOUS EPITHELIAL CELL,UR RARE /HPF; WBC,URINE 0-2 /HPF
[2021-09-10 10:51] LABS: HYALINE CASTS, URINE RARE /LPF
[2021-09-10 10:54] LABS: BACTERIA,URINE TRACE /HPF
[2021-09-10] MEDS ORDERED: NS IV 1000 ML 1,000 ML IV SCH (11:00)
--- NOTE | 2021-09-10 11:22 | Diagnostic Imaging Report ---
HISTORY: Cough COMPARISON: 06/10/2021 TECHNIQUE: Frontal view of the chest. FINDINGS: Lung volumes are normal. There are mild bibasilar airspace opacities, most likely atelectasis. These appear to be present on multiple prior exams. Subdiaphragmatic lucency on the right appears to be intraluminal. No large effusion or pneumothorax is seen. The cardiac silhouette is normal in size. There is aortic atherosclerosis. IMPRESSION: 1. Mild bibasilar airspace opacities, most likely atelectasis/scarring, although infection is not excluded. Dictated by: Dictated on workstation # [id number]
[2021-09-10 11:31] LABS: BASOPHILS # (AUTO) 0.1 10^3/uL (0.0-0.1); BASOPHILS % (AUTO) 0 % (0-10); EOSINOPHILS # (AUTO) 0.3 10^3/uL (0.0-0.3); EOSINOPHILS % (AUTO) 2 % (0-10); HEMATOCRIT 38 % (40-54); HEMOGLOBIN 12.1 g/dL (13.3-17.7); LYMPHOCYTES # (AUTO) 1.8 10^3/uL (1.0-4.0); LYMPHOCYTES % (AUTO) 13 % (12-44); MEAN CORPUSCULAR HEMOGLOBIN 28 pg (25-34); MEAN CORPUSCULAR HGB CONC 32 g/dL (32-36); MEAN CORPUSCULAR VOLUME 88 fL (80-99); MEAN PLATELET VOLUME 10.8 fL (9.0-12.2); MONOCYTES # (AUTO) 1.3 10^3/uL (0.0-1.0); MONOCYTES % (AUTO) 9 % (0-12); NEUTROPHILS # (AUTO) 10.3 10^3/uL (1.8-7.8); NEUTROPHILS % (AUTO) 75 % (42-75); PLATELET COUNT 225 10^3/uL (130-400); WHITE BLOOD COUNT 13.7 10^3/uL (4.3-11.0)
[2021-09-10 11:43] LABS: ALBUMIN 4.1 GM/DL (3.2-4.5); POTASSIUM 4.6 MMOL/L (3.6-5.0)
[2021-09-10 11:44] LABS: PROTHROMBIN TIME PATIENT 13.4 SEC (12.2-14.7)
[2021-09-10 11:45] LABS: CALCIUM 9.5 MG/DL (8.5-10.1)
[2021-09-10 11:46] LABS: TOTAL PROTEIN 7.3 GM/DL (6.4-8.2)
[2021-09-10 11:48] LABS: BILIRUBIN,TOTAL 0.7 MG/DL (0.1-1.0)
[2021-09-10 11:50] LABS: CREATININE SERUM 1.21 MG/DL (0.60-1.30)
[2021-09-10] MEDS ORDERED: cefTRIAXone 1 GM PRE-MIX 50 ML IV STA (11:57)
[2021-09-10] MEDS ORDERED: CEFD300C3 PO (13:06)
[2021-09-10] MEDS ORDERED: AZIT250T12 PO (13:06)
--- NOTE | 2021-09-10 13:06 | ED General ---
General Chief Complaint: - Reproductive Stated Complaint: UTI Nursing Triage Note: PT TO RM 5 IN WITH C/O BEING TOLD HE HAD A UTI BY HIS PCP. PT HAD DR MERCER WITH PCP IN [place] YESTERDAY. PT SAID HE HAS NOT BEEN FEELING SICK SO HE THINKS IT WAS A CHECK UP Source of Information: Patient Exam Limitations: No Limitations History of Present Illness Date Seen by Provider: Sep 10, 2021 Time Seen by Provider: 09:44 Initial Comments This is 66-year-old gentleman [facility] stating he had labs performed demonstrating leukocytosis and elevated creatinine. He has been very somnolent recently and has been drifting off to sleep or "blacking out" while driving his electric wheelchair. He has also had a bit of a wet cough recently. He has swelling of his lower extremities, right greater than left, which is chronic. Right extremity swells more than the left due to stroke affecting the right side. Patient's primary care provider is Mary Arnold in [place], [place]. Patient was told he had a UTI based on urinalysis obtained by PCP order. Allergies and Home Medications Allergies Coded Allergies: No Known Drug Allergies (Unverified , 03/13/18) Patient Home Medication List Home Medication List Reviewed: Yes Acetaminophen (Tylenol 8 Hour) 650 Mg Tablet.er, 650 MG PO Q4H PRN for PAIN-MILD (1-4), (Reported) Entered as Reported by: RENNY STEPHENS on 01/05/21 0928 Albuterol Sulfate (Proair Hfa) 1 Puff Puff, 2 PUFF IH Q6H PRN for SHORTNESS OF BREATH, (Reported) Entered as Reported by: ANNA KOVACS on 10/19/20 1328 Aspirin (Aspirin EC) 325 Mg Tablet.dr, 325 MG PO DAILY, (Reported) Entered as Reported by: ANNA KOVACS on 10/19/20 1328 Atorvastatin Calcium (Atorvastatin Calcium) 80 Mg Tablet, 80 MG PO HS, (Reported) Entered as Reported by: RENNY STEPHENS on 04/28/20 1607 Azithromycin (Azithromycin) 250 Mg Tablet, 250 MG PO UD Prescribed by: RIVERA SHINE on 09/10/21 1306 Baclofen (Baclofen) 10 Mg Tablet, 10 MG PO Q8H PRN for MUSCLE SPASMS, (Reported) Entered as Reported by: LEYLA ESPINOZA on 03/13/18 1354 Bupropion HCl (Bupropion HCl Sr) 150 Mg Tablet.er, 150 MG PO BID, (Reported) Entered as Reported by: RENNY STEPHENS on 01/05/21 09 Cefdinir (Cefdinir) 300 Mg Capsule, 300 MG PO BID Prescribed by: RIVERA SHINE on 09/10/21 1306 Celecoxib (Celebrex) 200 Mg Capsule, 200 MG PO DAILY, (Reported) Entered as Reported by: RENNY STEPHENS on 01/05/21 09 Cholecalciferol (Vitamin D3) (Vitamin D3) 50 Mcg Tablet, 50 MCG PO DAILY, (Reported) Entered as Reported by: ANNA KOVACS on 10/19/20 1328 Clopidogrel Bisulfate (Plavix) 75 Mg Tablet, 75 MG PO DAILY, (Reported) Entered as Reported by: LEYLA ESPINOZA on 03/13/18 135 Fluticasone Propionate (Fluticasone Propionate) 16 Gm [place].susp, 2 SPRAYS NSEACH DAILY, (Reported) Entered as Reported by: ANNA KOVACS on 10/19/20 1328 Gabapentin (Neurontin) 300 Mg Capsule, 900 MG PO TID, (Reported) Entered as Reported by: ANNA KOVACS on 10/19/20 1328 Lisinopril (Lisinopril) 40 Mg Tablet, 20 MG PO DAILY, (Reported) Entered as Reported by: ANNA KOVACS on 10/19/20 1328 Loratadine (Loratadine) 10 Mg Tablet, 10 MG PO DAILY, (Reported) Entered as Reported by: RENNY STEPHENS on 04/26/21 1229 Montelukast Sodium (Montelukast Sodium) 10 Mg Tablet, 10 MG PO HS, (Reported) Entered as Reported by: RENNY STEPHENS on 04/26/21 1229 Na Phos,M-B/Na Phos,Di-Ba (Fleet Enema Extra) 19 Gram-7 Gram/197 Ml Enema, 230 ML RC PRN Prescribed by: Pranav Griffiths on 08/15/21 1656 Polyethylene Glycol 3350 (Miralax) 17 Gram Powd.pack, 17 GM PO DAILY Prescribed by: Pranav Griffiths on 08/15/21 6903 Review of Systems Review of Systems Constitutional: see HPI EENTM: no symptoms reported Respiratory: see HPI Cardiovascular: no symptoms reported Gastrointestinal: no symptoms reported Genitourinary: see HPI Musculoskeletal: no symptoms reported Skin: no symptoms reported Psychiatric/Neurological: See HPI Hematologic/Lymphatic: No Symptoms Reported Past Dxjmpun-Xmtflm-Zdhrig Hx Patient Social History Tobacco Use?: Yes Tobacco type used: Cigarettes Smoking Status: Current Everyday Smoker Substance use?: No Alcohol Use?: No Pt feels they are or have been: No Immunizations Up To Date Tetanus Booster (TDap): Less than 5yrs Influenza Vaccine Up-to-Date: No; Not Current First/Initial COVID19 Vaccinat: 11/10 Second COVID19 Vaccination Oskar: 12/10 Third COVID19 Vaccination Date: 11/10 Seasonal Allergies Seasonal Allergies: No Past Medical History Surgery/Hospitalization HX: cardiac stents, spinal sx, appy, bilateral carotid endartectomy, Surgeries: Yes (EYES;C+L SPINE;CARDIAC CATHS-STENTS X3;BILAT CAROTID ENDART;FOOT;SKIN CA) Angioplasty, Appendectomy, Cardiac, Coronary Stent, Eye Surgery, Orthopedic, Vascular Surgery (CEA) Respiratory: Yes Pneumonia, Chronic Bronchitis, COPD, Emphysema Currently Using CPAP: No Currently Using BIPAP: No Cardiac: Yes (CARDIAC CATHS-STENTS X3; BILAT CAROTID ENDARTERECTOMIES;R CAROTID STENT) Coronary Artery Disease, High Cholesterol, Hypertension, Peripheral Vascular Neurological: Yes (stroke Jan 20, 2020-RIGHT SIDE PARALYSI, R sided stent placed; TIA 03/23/20) Neuropathy, Stroke Reproductive Disorders: No Sexually Transmitted Disease: No HIV/AIDS: No Genitourinary: Yes Benign Prostatic Hyperpl, Renal Failure Gastrointestinal: Yes (HEPATITIS C--S/P TREATMENT) Gastroesophageal Reflux Musculoskeletal: Yes (CHRONIC NECK AND BACK PAIN-S/P C-SPINE + L-SPINE SURGERY; L FOOT FX/ORIF) Chronic Back Pain Endocrine: No HEENT: Yes (READING GLASSES;EYE SURGERY CHILD) Loss of Vision: Bilateral Hearing Impairment: Hard of Hearing Cancer: Yes Skin Did You Recieve Any Treatments: Yes What Type of Treatment Did You: Surgical Intervention Psychosocial: Yes (SUBSTANCE ABUSE) Anxiety, Violent Behavior, Depression Integumentary: Yes (SKIN CANCER-GETS BLISTERS) Recent Skin Changes Blood Disorders: No Adverse Reaction/Blood Tranf: No Family Medical History Cancer 19 FATHER (SKIN) 19 MOTHER Cancer of colon 19 MOTHER Kidney disease 19 FATHER (PASSED KIDNEY FAILURE) SOCIAL HISTORY: -ETOH--OCCASIONAL USE, HX OF HEAVY USE -DRUGS--DAILY MARIJUANA USE, ALSO METH USE. DENIES IV DRUG USE -SMOKES 2 PPD PAST SURGICAL HISTORY: -LAST CARDIAC CATH DONE HERE IN 2013--PATENT STENTS -CARDIAC CATHS WITH STENTS X 3 -BILATERAL CAROTID ENDARTERECTOMY -RIGHT CAROTID STENT 01/21/20 AT -RIGHT EYE SURGERY CHILD -CERVICAL SPINE AND LUMBAR SPINE SURGERIES -LEFT FOOT FRACTURE/ ORIF -SKIN CANCER REMOVAL -APPENDECTOMY -STRESS TEST 01/05/[address] ALAVREZ: 1. Patient tolerated Lexiscan well, and transient episode of hypotension, responded to IV fluid 2. Diaphragmatic attenuation with no significant ischemia or infarction on SPECT images 3. Normal left ventricular size, EF 66% Physical Exam Vital Signs Vital Signs - First Documented 09/10/21 10:18 Temp 36.6 Pulse 61 Resp 16 B/P (MAP) 110/66 (81) Capillary Refill : Height, Weight, BMI Height: 6'1.00" Weight: 195lbs. 0oz. [id number]; 23.00 BMI Method:Actual General Appearance: No Apparent Distress, WD/WN HEENT: PERRL/EOMI, Normal ENT Inspection Neck: Normal Inspection Respiratory: No Accessory Muscle Use, No Respiratory Distress; No Crackles; Rhonci; No Wheezing Cardiovascular: Regular Rate, Rhythm, No Murmur, Other (Lower extremity edema) Gastrointestinal: Normal Bowel Sounds, Non Tender, Soft; No Distended Extremity: Non Tender, Pedal Edema, Swelling Neurologic/Psychiatric: Alert, Oriented x3, Normal Mood/Affect, Motor Weakness (Right extremities) Skin: Normal Color, Warm/Dry Focused Exam Lactate Level 09/10/21 11:22: Lactic Acid Level 1.34 Lactic Acid Level Laboratory Tests Test 09/10/21 11:22 Lactic Acid Level 1.34 MMOL/L (0.50-2.00) Progress/Results/Core Measures Suspected Sepsis SIRS Temperature: Pulse: 61 Respiratory Rate: 16 Laboratory Tests 09/10/21 11:22: White Blood Count 13.7H Blood Pressure 110 /66 Mean: 81 09/10/21 11:22: Lactic Acid Level 1.34 Laboratory Tests 09/10/21 11:22: Creatinine 1.21, INR Comment 1.0, Platelet Count 225, Total Bilirubin 0.7 Results/Orders Lab Results Laboratory Tests Test 09/10/21 09:36 09/10/21 10:32 09/10/21 11:04 09/10/21 11:22 Range/Units Lab Scanned Report Referred Lab Report [id number] Urine Color YELLOW Urine Clarity CLEAR Urine pH 5.5 5-9 Urine Specific [place] 1.025 H 1.016-1.022 Urine Protein NEGATIVE NEGATIVE Urine Glucose (UA) NEGATIVE NEGATIVE Urine Ketones NEGATIVE NEGATIVE Urine Nitrite NEGATIVE NEGATIVE Urine Bilirubin NEGATIVE NEGATIVE Urine Urobilinogen 0.2 < = 1.0 MG/DL Urine Leukocyte Esterase NEGATIVE NEGATIVE Urine RBC (Auto) NEGATIVE NEGATIVE Urine RBC NONE /HPF Urine WBC 0-2 /HPF Urine Squamous Epithelial Cells RARE /HPF Urine Crystals NONE /LPF Urine Bacteria TRACE /HPF Urine Casts PRESENT /LPF Urine Hyaline Casts RARE /LPF Urine Mucus SMALL H /LPF Urine Culture Indicated NO Influenza Type A (RT-PCR) Not Detected Not Detecte Influenza Type B (RT-PCR) Not Detected Not Detecte SARS-CoV-2 RNA (RT-PCR) Not Detected Not Detecte White Blood Count 13.7 H 4.3-11.0 10^3/uL Red Blood Count 4.30 4.30-5.52 10^6/uL Hemoglobin 12.1 L 13.3-17.7 g/dL Hematocrit 38 L 40-54 % Mean Corpuscular Volume 88 80-99 fL Mean Corpuscular Hemoglobin 28 25-34 pg Mean Corpuscular Hemoglobin Concent 32 32-36 g/dL Red Cell Distribution Width 15.9 H 10.0-14.5 % Platelet Count 225 130-400 10^3/uL Mean Platelet Volume 10.8 9.0-12.2 fL Immature Granulocyte % (Auto) 0 % Neutrophils (%) (Auto) 75 42-75 % Lymphocytes (%) (Auto) 13 12-44 % Monocytes (%) (Auto) 9 0-12 % Eosinophils (%) (Auto) 2 0-10 % Basophils (%) (Auto) 0 0-10 % Neutrophils # (Auto) 10.3 H 1.8-7.8 10^3/uL Lymphocytes # (Auto) 1.8 1.0-4.0 10^3/uL Monocytes # (Auto) 1.3 H 0.0-1.0 10^3/uL Eosinophils # (Auto) 0.3 0.0-0.3 10^3/uL Basophils # (Auto) 0.1 0.0-0.1 10^3/uL Immature Granulocyte # (Auto) 0.0 0.0-0.1 10^3/uL Prothrombin Time 13.4 12.2-14.7 SEC INR Comment 1.0 0.8-1.4 Activated Partial Thromboplast Time 27 24-35 SEC Sodium Level 140 135-145 MMOL/L Potassium Level 4.6 3.6-5.0 MMOL/L Chloride Level 104 98-107 MMOL/L Carbon Dioxide Level 22 21-32 MMOL/L Anion Gap 14 5-14 MMOL/L Blood Urea Nitrogen 28 H 7-18 MG/DL Creatinine 1.21 0.60-1.30 MG/DL Estimat Glomerular Filtration Rate 67 BUN/Creatinine Ratio 23 Glucose Level 99 70-105 MG/DL Lactic Acid Level 1.34 0.50-2.00 MMOL/L Calcium Level 9.5 8.5-10.1 MG/DL Corrected Calcium 9.4 8.5-10.1 MG/DL Total Bilirubin 0.7 0.1-1.0 MG/DL Aspartate Amino Transf (AST/SGOT) 19 5-34 U/L Alanine Aminotransferase (ALT/SGPT) 20 0-55 U/L Alkaline Phosphatase 69 40-136 U/L C-Reactive Protein High Sensitivity 9.68 H 0.00-0.50 MG/DL Total Protein 7.3 6.4-8.2 GM/DL Albumin 4.1 3.2-4.5 GM/DL Procalcitonin 0.07 <0.10 NG/ML Micro Results Microbiology 09/10/21 Blood Culture - Preliminary, Resulted No growth 09/10/21 Blood Culture - Preliminary, Resulted No growth 09/10/21 Urine Culture - Final, Complete NO GROWTH My Orders Orders - RIVERA LAZO MD Ua Culture If Indicated (09/10/21 09:44) Covid 19 Inhouse Test (09/10/21 11:00) Cbc With Automated Diff (09/10/21 11:00) Comprehensive Metabolic Panel (09/10/21 11:00) Blood Culture (09/10/21 11:00) Urine Culture (09/10/21 11:00) Protime With Inr (09/10/21 11:00) Partial Thromboplastin Time (09/10/21 11:00) Chest 1 View, Ap/Pa Only (09/10/21 11:00) Ed Iv/Invasive Line Start (09/10/21 11:00) Vital Signs Adult Sepsis Patie Q15M (09/10/21 11:00) O2 (09/10/21 11:00) Remove Rings In Anticipation O (09/10/21 11:00) Lactic Acid Analyzer (09/10/21 11:00) Influenza A And B By Pcr (09/10/21 11:00) Hs C Reactive Protein (09/10/21 11:00) Procalcitonin (Pct) (09/10/21 11:00) Ns Iv 1000 Ml (Sodium Chloride 0.9%) (09/10/21 11:00) Ceftriaxone 1 Gm Pre-Mix (Rocephin 1 Gm (09/10/21 11:57) Vital Signs/I&O 09/10/21 09/10/21 10:18 13:19 Temp 36.6 36.6 Pulse 61 57 Resp 16 16 B/P (MAP) 110/66 (81) 137/74 Capillary Refill : Blood Pressure Mean: 81 Progress Note : Progress Note Patient was suspected of having pneumonia based on chest x-ray results and labs. He was treated with Rocephin and hydrated with a liter of IV fluids. See discharge instructions. Diagnostic Imaging Diagonstic Imaging: Xray Plain Films/CT/US/NM/MRI: chest Comments NAME: CRISTI KRISHNAMURTHY [facility] REC#: [id number] PT STATUS: REG ER : 1955 PHYSICIAN: RIVERA LAZO MD ADMIT DATE: 09/10/21/ER Signed Date of Exam:09/10/21 CHEST 1 VIEW, AP/PA ONLY HISTORY: Cough COMPARISON: 06/10/2021 TECHNIQUE: Frontal view of the chest. FINDINGS: Lung volumes are normal. There are mild bibasilar airspace opacities, most likely atelectasis. These appear to be present on multiple prior exams. Subdiaphragmatic lucency on the right appears to be intraluminal. No large effusion or pneumothorax is seen. The cardiac silhouette is normal in size. There is aortic atherosclerosis. IMPRESSION: 1. Mild bibasilar airspace opacities, most likely atelectasis/scarring, although infection is not excluded. Dictated by: Dictated on workstation # [id number] Dict: 09/10/21 1116 Trans: 09/10/21 1302 CVB [id number] Interpreted by: PARVIZ SEVILLA MD Electronically signed by: PARVIZ SEVILLA MD 09/10/21 1302 Departure Impression Primary Impression: Pneumonia Qualified Codes: J18.9 - Pneumonia, unspecified organism Additional Impressions: Hypersomnolence Lower extremity edema Disposition: 01 HOME, SELF-CARE Condition: Stable Departure-Patient Inst. Decision time for Depature: 13:03 Referrals: MARY HERNANDEZ MD (PCP/Family) Primary Care Physician Patient Instructions: Dependent Edema (DC), Pneumonia in Adults Add. Discharge Instructions: Complete your antibiotics as prescribed. Please follow-up with your primary care provider next week. Review medications with your primary care provider at that appointment. Your excessive sleepiness may be due to your medications. In particular, baclofen may cause excessive sleepiness. Reduce your baclofen to no more than 5 mg 3 times a day, or less if you can tolerate it. Exercise deep breathing several times per hour and cough during deep breathing exercises even if you do not feel an urge to cough. Call your doctor with questions or concerns. Return to the ER if you have worsening symptoms. All discharge instructions reviewed with patient and/or family. Voiced understanding. Scripts Azithromycin (Azithromycin) 250 Mg Tablet 250 MG PO UD, #6 TAB TAKE 2 TABLETS ON DAY ONE THEN TAKE 1 TABLET DAILY FOR FOUR MORE DAYS Prov: RIVERA LAZO MD 09/10/21 Cefdinir (Cefdinir) 300 Mg Capsule 300 MG PO BID, #20 CAP Prov: RIVERA LAZO MD 09/10/21 RIVERA LAZO MD Sep 10, 2021 13:06
[2021-09-10 13:19] VITALS: BP 137/74
== END 2021-09-10 13:20 | disposition home or self-care (01) ==
LOC: EDUNIT# 09:34 → ER 09:36
DX: J18.9 Pneumonia, unspecified organism (principal); G47.10 Hypersomnia, unspecified; R60.0 Localized edema; F17.210 Nicotine dependence, cigarettes, uncomplicated; Z20.822 Contact with and (suspected) exposure to COVID-19
CPT/HCPCS: 36415; 71045; 80053; 81000; 83605; 84145; 85025; 85610; 85730; 86141; 87040; 87088; 87636

== ENCOUNTER 2021-09-11 15:28 | Emergency (ER) | payer OTHER ==
[~2021-09-11 15:28] MED LIST changes: +AZIT250T12 PO
[2021-09-11] MEDS ORDERED: NS IV 1000 ML 1,000 ML IV STA (15:58)
--- NOTE | 2021-09-11 15:58 | ED Fall/Injury ---
General Chief Complaint: Trauma-Non Activation Stated Complaint: FELL Source: patient Exam Limitations: no limitations (VAZQUEZ RYAN) History of Present Illness Date Seen by Provider: Sep 11, 2021 Time Seen by Provider: 15:55 Initial Comments Patient is a 66-year-old male who presents ED for evaluation after a fall. Patient was on a motorized wheelchair when he fell forward trying to get his wallet that fell on the ground. Patient fell on the right side of his forehead. No loss of consciousness. He Does take Plavix. Patient reports landing on bilateral knees which resulted in skin abrasions. History of stroke with right- sided deficits. Patient was seen here yesterday diagnosed with pneumonia discharged with cefdinir and azithromycin. Patient has some mid back pain. Was placed in c-collar by EMS. Patient reports mild headache without dizziness, visual changes, vomiting. Denies of any current chest pain or shortness of breath. Oxygen level was in the lower 90s and was placed on 2 L per EMS. Denies oxygen at home. Patient is able to move his knees but does report some pain and discomfort. Up-to-date his tetanus in the past year. (VAZQUEZ RYAN) Allergies and Home Medications Allergies Coded Allergies: No Known Drug Allergies (Unverified , 03/13/18) Patient Home Medication List Home Medication List Reviewed: Yes (VAZQUEZ RYAN) Acetaminophen (Tylenol 8 Hour) 650 Mg Tablet.er, 650 MG PO Q4H PRN for PAIN-MILD (1-4), (Reported) Entered as Reported by: RENNY STEPHENS on 01/05/21 0928 Albuterol Sulfate (Proair Hfa) 1 Puff Puff, 2 PUFF IH Q6H PRN for SHORTNESS OF BREATH, (Reported) Entered as Reported by: ANNA KOVACS on 10/19/20 1328 Aspirin (Aspirin EC) 325 Mg Tablet.dr, 325 MG PO DAILY, (Reported) Entered as Reported by: ANNA KOVACS on 10/19/20 1328 Atorvastatin Calcium (Atorvastatin Calcium) 80 Mg Tablet, 80 MG PO HS, (Reported) Entered as Reported by: RENNY STEPHENS on 04/28/20 1607 Azithromycin (Azithromycin) 250 Mg Tablet, 250 MG PO UD Prescribed by: RIVERA SHINE on 09/10/21 1306 Baclofen (Baclofen) 10 Mg Tablet, 10 MG PO Q8H PRN for MUSCLE SPASMS, (Reported) Entered as Reported by: LEYLA ESPINOZA on 03/13/18 1354 Bupropion HCl (Bupropion HCl Sr) 150 Mg Tablet.er, 150 MG PO BID, (Reported) Entered as Reported by: RENNY STEPHENS on 01/05/21 0928 Cefdinir (Cefdinir) 300 Mg Capsule, 300 MG PO BID Prescribed by: RIVERA SHINE on 09/10/21 1306 Celecoxib (Celebrex) 200 Mg Capsule, 200 MG PO DAILY, (Reported) Entered as Reported by: RENNY STEPHENS on 01/05/21 09 Cholecalciferol (Vitamin D3) (Vitamin D3) 50 Mcg Tablet, 50 MCG PO DAILY, (Reported) Entered as Reported by: ANNA KOVACS on 10/19/20 1328 Clopidogrel Bisulfate (Plavix) 75 Mg Tablet, 75 MG PO DAILY, (Reported) Entered as Reported by: LEYLA ESPINOZA on 03/13/18 1354 Fluticasone Propionate (Fluticasone Propionate) 16 Gm [place].susp, 2 SPRAYS NSEACH DAILY, (Reported) Entered as Reported by: ANNA KOVACS on 10/19/20 1328 Gabapentin (Neurontin) 300 Mg Capsule, 900 MG PO TID, (Reported) Entered as Reported by: ANNA KOVACS on 10/19/20 1328 Lisinopril (Lisinopril) 40 Mg Tablet, 20 MG PO DAILY, (Reported) Entered as Reported by: ANNA KOVACS on 10/19/20 1328 Loratadine (Loratadine) 10 Mg Tablet, 10 MG PO DAILY, (Reported) Entered as Reported by: RENNY STEPHENS on 04/26/21 1229 Montelukast Sodium (Montelukast Sodium) 10 Mg Tablet, 10 MG PO HS, (Reported) Entered as Reported by: RENNY STEPHENS on 04/26/21 1229 Na Phos,M-B/Na Phos,Di-Ba (Fleet Enema Extra) 19 Gram-7 Gram/197 Ml Enema, 230 ML RC PRN Prescribed by: Pranav Griffiths on 08/15/211655 Polyethylene Glycol 3350 (Miralax) 17 Gram Powd.pack, 17 GM PO DAILY Prescribed by: Pranav Griffiths on 08/15/211655 Review of Systems Review of Systems Constitutional: No chills, No diaphoresis, No malaise, No weakness Eyes: Denies Blurred Vision, Denies Drainage, Denies Decreased Acuity Ears, Nose, Mouth, Throat: denies ear pain, denies ear discharge Respiratory: No cough, No short of breath Cardiovascular: No chest pain Gastrointestinal: No abdominal pain, No diarrhea, No nausea, No vomiting Genitourinary: No decreased output, No discharge Musculoskeletal: back pain, joint pain, joint swelling Skin: change in color, other (Skin abrasion) (VAZQUEZ RYAN) All Other Systems Reviewed Negative Unless Noted: Yes (VAZQUEZ RYAN) Past Xnlhrxo-Gkvghh-Azvpyn Hx Patient Social History Tobacco Use?: Yes Tobacco type used: Cigarettes Smoking Status: Current Everyday Smoker Substance use?: No Alcohol Use?: No Pt feels they are or have been: No (VAZQUEZ RYAN) Immunizations Up To Date Tetanus Booster (TDap): Less than 5yrs First/Initial COVID19 Vaccinat: 11/10 Second COVID19 Vaccination Oskar: 12/10 Third COVID19 Vaccination Date: 11/10 (VAZQUEZ RYAN) Seasonal Allergies Seasonal Allergies: No (VAZQUEZ RYAN) Past Medical History Surgery/Hospitalization HX: cardiac stents, spinal sx, appy, bilateral carotid endartectomy, Surgeries: Yes (EYES;C+L SPINE;CARDIAC CATHS-STENTS X3;BILAT CAROTID ENDART;FOOT;SKIN CA) Angioplasty, Appendectomy, Cardiac, Coronary Stent, Eye Surgery, Orthopedic, Vascular Surgery Respiratory: Yes Pneumonia, Chronic Bronchitis, COPD, Emphysema Currently Using CPAP: No Currently Using BIPAP: No Cardiac: Yes (CARDIAC CATHS-STENTS X3; BILAT CAROTID ENDARTERECTOMIES;R CAROTID STENT) Coronary Artery Disease, High Cholesterol, Hypertension, Peripheral Vascular Neurological: Yes (stroke Jan 20, 2020-RIGHT SIDE PARALYSI, R sided stent placed; TIA 03/23/20) Neuropathy, Stroke Reproductive Disorders: No Sexually Transmitted Disease: No HIV/AIDS: No Genitourinary: No Benign Prostatic Hyperpl, Renal Failure Gastrointestinal: Yes (HEPATITIS C--S/P TREATMENT) Gastroesophageal Reflux Musculoskeletal: Yes (CHRONIC NECK AND BACK PAIN-S/P C-SPINE + L-SPINE SURGERY; L FOOT FX/ORIF) Chronic Back Pain Endocrine: No HEENT: Yes (READING GLASSES;EYE SURGERY CHILD) Loss of Vision: Bilateral Hearing Impairment: Hard of Hearing Cancer: Yes Skin Did You Recieve Any Treatments: Yes What Type of Treatment Did You: Surgical Intervention Psychosocial: Yes (SUBSTANCE ABUSE) Anxiety, Violent Behavior, Depression Integumentary: Yes (SKIN CANCER-GETS BLISTERS) Recent Skin Changes Blood Disorders: No Adverse Reaction/Blood Tranf: No (VAZQUEZ RYAN) Family Medical History Cancer 19 FATHER (SKIN) 19 MOTHER Cancer of colon 19 MOTHER Kidney disease 19 FATHER (PASSED KIDNEY FAILURE) SOCIAL HISTORY: -ETOH--OCCASIONAL USE, HX OF HEAVY USE -DRUGS--DAILY MARIJUANA USE, ALSO METH USE. DENIES IV DRUG USE -SMOKES 2 PPD PAST SURGICAL HISTORY: -LAST CARDIAC CATH DONE HERE IN 2013--PATENT STENTS -CARDIAC CATHS WITH STENTS X 3 -BILATERAL CAROTID ENDARTERECTOMY -RIGHT CAROTID STENT 01/21/20 AT -RIGHT EYE SURGERY CHILD -CERVICAL SPINE AND LUMBAR SPINE SURGERIES -LEFT FOOT FRACTURE/ ORIF -SKIN CANCER REMOVAL -APPENDECTOMY -STRESS TEST 01/05/[address] ALVAREZ: 1. Patient tolerated Lexiscan well, and transient episode of hypotension, responded to IV fluid 2. Diaphragmatic attenuation with no significant ischemia or infarction on SPECT images 3. Normal left ventricular size, EF 66% (VAZQUEZ RYAN) Physical Exam Vital Signs Vital Signs - First Documented 09/11/21 15:33 Temp 38.0 Pulse 91 Resp 16 B/P (MAP) 91/58 (69) (RIVERA LAZO MD) Vital Signs Capillary Refill : (VAZQUEZ RYAN) Height, Weight, BMI Height: 6'1.00" Weight: 195lbs. 0oz. [id number]; 23.00 BMI Method:Actual General Appearance: WD/WN, no apparent distress HEENT: PERRL/EOMI, normal ENT inspection, TMs normal, pharynx normal, other (Abrasion to right side of forehead) Neck: other (C-collar in place. bilateral cervical paraspinal muscle tenderness) Cardiovascular: regular rate, rhythm, no edema, no gallop, no JVD Respiratory: chest non-tender, lungs clear, normal breath sounds, no accessory muscle use Gastrointestinal: normal bowel sounds, non tender, soft, no organomegaly Back: vertebral tenderness (Thoracic midline tenderness, no thoracic paraspinal muscle tenderness. No lumbar midline tenderness. No swelling erythema or ecchymosis.) Extremities: other (Abrasions bilateral knees with normal active range of motion. No laxity with valgus or varus stress. Negative anterior posterior drawer test. 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 II-XII nml as tested, no motor/sensory deficits, alert, normal mood/affect Skin: other (Abrasion to the knees bilateral, right-sided forehead) (VAZQUEZ RYAN) [place] Coma Score Best Eye Response: (4) Open Spontaneously Best Verbal Response: (5) Oriented Best Motor Response: (6) Obeys Commands [place] Total: 15 (VAZQUEZ RYAN) Progress/Results/Core Measures Results/Orders Lab Results Laboratory Tests Test 09/11/21 15:55 Range/Units White Blood Count 10.6 4.3-11.0 10^3/uL Red Blood Count 3.98 L 4.30-5.52 10^6/uL Hemoglobin 11.1 L 13.3-17.7 g/dL Hematocrit 35 L 40-54 % Mean Corpuscular Volume 87 80-99 fL Mean Corpuscular Hemoglobin 28 25-34 pg Mean Corpuscular Hemoglobin Concent 32 32-36 g/dL Red Cell Distribution Width 15.7 H 10.0-14.5 % Platelet Count 217 130-400 10^3/uL Mean Platelet Volume 10.2 9.0-12.2 fL Immature Granulocyte % (Auto) 0 % Neutrophils (%) (Auto) 69 42-75 % Lymphocytes (%) (Auto) 17 12-44 % Monocytes (%) (Auto) 10 0-12 % Eosinophils (%) (Auto) 3 0-10 % Basophils (%) (Auto) 1 0-10 % Neutrophils # (Auto) 7.4 1.8-7.8 10^3/uL Lymphocytes # (Auto) 1.8 1.0-4.0 10^3/uL Monocytes # (Auto) 1.0 0.0-1.0 10^3/uL Eosinophils # (Auto) 0.3 0.0-0.3 10^3/uL Basophils # (Auto) 0.1 0.0-0.1 10^3/uL Immature Granulocyte # (Auto) 0.0 0.0-0.1 10^3/uL Sodium Level 143 135-145 MMOL/L Potassium Level 4.2 3.6-5.0 MMOL/L Chloride Level 109 H 98-107 MMOL/L Carbon Dioxide Level 23 21-32 MMOL/L Anion Gap 11 5-14 MMOL/L Blood Urea Nitrogen 17 7-18 MG/DL Creatinine 0.94 0.60-1.30 MG/DL Estimat Glomerular Filtration Rate 91 BUN/Creatinine Ratio 18 Glucose Level 74 70-105 MG/DL Calcium Level 9.3 8.5-10.1 MG/DL Corrected Calcium 9.5 8.5-10.1 MG/DL Total Bilirubin 0.6 0.1-1.0 MG/DL Aspartate Amino Transf (AST/SGOT) 17 5-34 U/L Alanine Aminotransferase (ALT/SGPT) 18 0-55 U/L Alkaline Phosphatase 62 40-136 U/L Total Protein 6.5 6.4-8.2 GM/DL Albumin 3.8 3.2-4.5 GM/DL (RIVERA LAZO MD) Vital Signs/I&O 09/11/21 09/11/21 15:33 17:11 Temp 38.0 38.0 Pulse 91 84 Resp 16 16 B/P (MAP) 91/58 (69) 118/69 (RIVERA LAZO MD) Departure Communication (PCP) Patient presents ED for evaluation after mechanical fall. GCS 15. Alert and orient x3. History of stroke with right-sided deficits. No strokelike symptoms. Up-to-date on his tetanus abrasion to the right forehead. Patient was placed in c-collar by EMS. CT scan of the head and cervical neck was negative for acute traumatic injury. Chronic findings were noted. C-collar removed and cleared. Patient Was complaining of thoracic midline tenderness without evidence of rib tenderness on palpation. Lung sounds clear bilateral. Chest x- ray was unremarkable. CT thoracic spine was negative for acute abnormality. No bowel or urine incontinence or saddle paresthesia. Abrasions to the knee bilateral with no obvious laxity with normal range of motion limited to the right. X-ray was negative for fracture. Patient uses a motorized wheelchair to get around. Patient lab work was otherwise unremarkable. Patient is currently on antibiotics for pneumonia. Patient was slightly hypotensive was given a liter fluid with improvement. Improvement of fever. Does not appear toxic with reassuring lab work yesterday besides the elevated white blood count which has improved. Patient is recommend continue with antibiotics. Anti-inflammatories at home. If any worsening symptoms return back to ED for further evaluation. PCP follow-up in 2 to 3 days for evaluation. (VAZQUEZ RYAN) Impression Primary Impression: Facial injury Disposition: HOME, SELF-CARE Condition: Stable Departure-Patient Inst. Decision time for Depature: 16:52 (VAZQUEZ RYAN) Referrals: YUMIKO HERNANDEZ MD (PCP/Family) Primary Care Physician Patient Instructions: Skin Abrasions (DC) ATTENDING PHYSICIAN NOTE: I was physically present as attending physician in the emergency department during the care of this patient, but I was not directly involved in the decision making or delivery of care for this patient. (RIVERA LAZO MD) VAZQUEZ RYAN Sep 11, 2021 15:58 RIVERA LAZO MD Sep 13, 2021 15:01
[2021-09-11] MEDS ORDERED: KETOROLAC 30 MG/ML VIAL IVP ONE (16:00)
[2021-09-11 16:06] LABS: BASOPHILS # (AUTO) 0.1 10^3/uL (0.0-0.1); BASOPHILS % (AUTO) 1 % (0-10); EOSINOPHILS # (AUTO) 0.3 10^3/uL (0.0-0.3); EOSINOPHILS % (AUTO) 3 % (0-10); HEMATOCRIT 35 % (40-54); HEMOGLOBIN 11.1 g/dL (13.3-17.7); LYMPHOCYTES # (AUTO) 1.8 10^3/uL (1.0-4.0); LYMPHOCYTES % (AUTO) 17 % (12-44); MEAN CORPUSCULAR HEMOGLOBIN 28 pg (25-34); MEAN CORPUSCULAR HGB CONC 32 g/dL (32-36); MEAN CORPUSCULAR VOLUME 87 fL (80-99); MEAN PLATELET VOLUME 10.2 fL (9.0-12.2); MONOCYTES % (AUTO) 10 % (0-12); NEUTROPHILS # (AUTO) 7.4 10^3/uL (1.8-7.8); NEUTROPHILS % (AUTO) 69 % (42-75); PLATELET COUNT 217 10^3/uL (130-400); WHITE BLOOD COUNT 10.6 10^3/uL (4.3-11.0)
[2021-09-11 16:10] LABS: ALBUMIN 3.8 GM/DL (3.2-4.5); POTASSIUM 4.2 MMOL/L (3.6-5.0)
[2021-09-11 16:12] LABS: CALCIUM 9.3 MG/DL (8.5-10.1)
[2021-09-11 16:13] LABS: TOTAL PROTEIN 6.5 GM/DL (6.4-8.2)
[2021-09-11 16:15] LABS: BILIRUBIN,TOTAL 0.6 MG/DL (0.1-1.0)
[2021-09-11 16:16] LABS: CREATININE SERUM 0.94 MG/DL (0.60-1.30)
--- NOTE | 2021-09-11 16:29 | Diagnostic Imaging Report ---
EXAMINATION: Chest 1 view. HISTORY: Cough. Fall. COMPARISON: 09/10/2021. FINDINGS: The lung volumes are low. Bibasilar atelectasis is present. No large pleural effusion or pneumothorax is seen. The cardiomediastinal silhouette is enlarged. There is calcified aortic atherosclerotic plaque. No acute osseous abnormality is seen. IMPRESSION: 1. Cardiomegaly. 2. Low lung volumes with bibasilar atelectasis. Dictated by: Dictated on workstation # [id number]
--- NOTE | 2021-09-11 16:32 | Diagnostic Imaging Report ---
CLINICAL HISTORY: Fall. Bilateral knee pain. COMPARISON: 07/31/2019. TECHNIQUE: 6 views of the bilateral knees. FINDINGS: There is no acute fracture or dislocation of the bilateral knees. Alignment is anatomic. The imaged joint spaces are preserved. Calcification is seen within the lateral compartment of the right knee. No joint effusion is seen in the bilateral knees. There is likely folding of the suprapatellar soft tissues in the left knee. IMPRESSION: 1. No acute fracture or dislocation in the bilateral knees. No joint effusion. 2. Calcification within the lateral compartment of the right knee, which can be seen with chondrocalcinosis. Dictated by: Dictated on workstation # [id number]
--- NOTE | 2021-09-11 16:44 | Diagnostic Imaging Report ---
PROCEDURE: CT head and CT cervical spine without contrast. TECHNIQUE: Multiple contiguous axial images were obtained through the brain and cervical spine without the use of intravenous contrast. Sagittal and coronal reformations through the cervical spine were then performed. Auto Exposure Controls were utilized during the CT exam to meet ALARA standards for radiation dose reduction. INDICATION: Fall. Head and neck pain. COMPARISON: 05/21/2021. FINDINGS: CT head: No large acute territorial ischemia, mass or hemorrhage. No midline shift or mass effect. Chronic encephalomalacia is seen in the left frontoparietal region and right parietal lobe. The ventricles, cortical sulci and basilar cisterns are patent and unremarkable. The calvarium is intact. The visualized paranasal sinuses are clear. CT cervical spine: No acute fracture or dislocation is seen in the cervical spine. No focal osseous lesions. ACDF changes are visualized from C4 to C6 with corpectomy at the C5 level. The craniocervical junction is well-maintained. Moderate degenerative changes are seen in the cervical spine with disc osteophyte complexes and uncovertebral arthropathy. A stent is visualized in the right common and internal carotid arteries. The included lung apices are clear. IMPRESSION: 1. No hemorrhage or focal intra-axial mass. No CT evidence of large acute territorial ischemia. 2. No acute fracture or dislocation in the cervical spine. 3. Chronic encephalomalacia involving the left frontoparietal region and right parietal lobe. 4. ACDF changes from C4 to C6 with corpectomy changes at the C5 level. No evidence of hardware complication. Dictated by: Dictated on workstation # [id number]
--- NOTE | 2021-09-11 16:45 | Diagnostic Imaging Report ---
PROCEDURE: CT thoracic spine without contrast. TECHNIQUE: Multiple axial computerized tomography images were obtained from the base of the thoracic spine to the vertex without intravenous contrast. Auto Exposure Controls were utilized during the CT exam to meet ALARA standards for radiation dose reduction. INDICATION: Fall. Back pain. COMPARISON: None. FINDINGS: No acute fracture or dislocation is seen in the thoracic spine. No suspicious focal osseous lesion. There is slight right convexity curvature of the thoracic spine. Degenerative changes are present in the thoracic spine with disc osteophyte complexes and facet hypertrophy. No evidence of acute spinal canal stenosis. No high density material is seen within the spinal canal. The paraspinal soft tissues are unremarkable. Dependent opacities are seen in the lung bases. IMPRESSION: No acute fracture or dislocation in the thoracic spine. Dictated by: Dictated on workstation # [id number]
[2021-09-11 17:11] VITALS: BP 118/69
== END 2021-09-11 17:30 | disposition home or self-care (01) ==
LOC: EDUNIT# 15:28 → ER 15:30
DX: S00.81XA Abrasion of other part of head, initial encounter (principal); S80.212A Abrasion, left knee, initial encounter; S80.211A Abrasion, right knee, initial encounter; M54.2 Cervicalgia; M54.6 Pain in thoracic spine; J18.9 Pneumonia, unspecified organism; I95.9 Hypotension, unspecified; I25.10 Atherosclerotic heart disease of native coronary artery without angina pectoris; F17.210 Nicotine dependence, cigarettes, uncomplicated; Z86.73 Personal history of transient ischemic attack (TIA), and cerebral infarction without residual deficits; Z98.890 Other specified postprocedural states; Z79.02 Long term (current) use of antithrombotics/antiplatelets; V00.811A Fall from moving wheelchair (powered), initial encounter
CPT/HCPCS: 36415; 70450; 71045; 72125; 72128; 80053; 85025

== ENCOUNTER 2021-12-02 02:27 | Emergency (ER) | payer OTHER ==
[~2021-12-02 02:27] MED LIST changes: -GUAI5LIQ11 PO; +GUAI5LIQ14 PO
--- NOTE | 2021-12-02 05:08 | ED Head Injury ---
General Chief Complaint: Head/Cervical Problems Stated Complaint: FALL,HIT HEAD Nursing Triage Note: Pt presents with c/o head pain that started after falling out of wheelchair and hitting his head approx 30 min prior to arrival in ER. Pt denies loss of consciousness. States that he cut his head, unable to visualize laceration Source: patient, EMS Exam Limitations: no limitations History of Present Illness Date Seen by Provider: Dec 02, 2021 Time Seen by Provider: 02:28 Initial Comments This 66-year-old gentleman presents to the emergency room via EMS after a fall out of his wheelchair causing head injury. He reports backing up out of the restroom in his wheelchair. As he pushed the wheelchair backward, he fell forward. He fell in a twisting motion and struck the top of his head. He has some bruising there but no breaks to the skin. He denies any loss of consciousness. He was seen by EMS earlier in the night and declined transport. However, he developed pain later and decided to transfer for evaluation. He is a resident at . He has a prior stroke that caused paralysis on the right side. Allergies and Home Medications Allergies Coded Allergies: No Known Drug Allergies (Unverified , 03/13/18) Patient Home Medication List Home Medication List Reviewed: Yes Acetaminophen (Tylenol 8 Hour) 650 Mg Tablet.er, 650 MG PO Q4H PRN for PAIN-MILD (1-4), (Reported) Entered as Reported by: RENYN STEPHENS on 01/05/21 0928 Albuterol Sulfate (Proair Hfa) 1 Puff Puff, 2 PUFF IH Q6H PRN for SHORTNESS OF BREATH, (Reported) Entered as Reported by: ANNA KOVACS on 10/19/20 1328 Aspirin (Aspirin EC) 325 Mg Tablet.dr, 325 MG PO DAILY, (Reported) Entered as Reported by: ANNA KOVACS on 10/19/20 1328 Atorvastatin Calcium (Atorvastatin Calcium) 80 Mg Tablet, 80 MG PO HS, (Reported) Entered as Reported by: RENNY STEPHENS on 04/28/20 1607 Azithromycin (Azithromycin) 250 Mg Tablet, 250 MG PO UD Prescribed by: RIVERA SHINE on 09/10/21 1306 Baclofen (Baclofen) 10 Mg Tablet, 10 MG PO Q8H PRN for MUSCLE SPASMS, (Reported) Entered as Reported by: LEYLA ESPINOZA on 03/13/18 1354 Bupropion HCl (Bupropion HCl Sr) 150 Mg Tablet.er, 150 MG PO BID, (Reported) Entered as Reported by: RNENY STEPHENS on 01/05/21 09 Cefdinir (Cefdinir) 300 Mg Capsule, 300 MG PO BID Prescribed by: RIVERA SHINE on 09/10/21 1306 Celecoxib (Celebrex) 200 Mg Capsule, 200 MG PO DAILY, (Reported) Entered as Reported by: RENNY STEPHENS on 01/05/21927 Cholecalciferol (Vitamin D3) (Vitamin D3) 50 Mcg Tablet, 50 MCG PO DAILY, (Reported) Entered as Reported by: ANNA KOVACS on 10/19/20 1328 Clopidogrel Bisulfate (Plavix) 75 Mg Tablet, 75 MG PO DAILY, (Reported) Entered as Reported by: LEYLA ESPINOZA on 03/13/18 1354 Fluticasone Propionate (Fluticasone Propionate) 16 Gm [place].susp, 2 SPRAYS NSEACH DAILY, (Reported) Entered as Reported by: ANNA KOVACS on 10/19/20 1328 Gabapentin (Neurontin) 300 Mg Capsule, 900 MG PO TID, (Reported) Entered as Reported by: ANNA KOVACS on 10/19/20 1328 Lisinopril (Lisinopril) 40 Mg Tablet, 20 MG PO DAILY, (Reported) Entered as Reported by: ANNA KOVACS on 10/19/20 1328 Loratadine (Loratadine) 10 Mg Tablet, 10 MG PO DAILY, (Reported) Entered as Reported by: RENNY STEPHENS on 04/26/21 1229 Montelukast Sodium (Montelukast Sodium) 10 Mg Tablet, 10 MG PO HS, (Reported) Entered as Reported by: RENNY STEPHENS on 04/26/21 1229 Na Phos,M-B/Na Phos,Di-Ba (Fleet Enema Extra) 19 Gram-7 Gram/197 Ml Enema, 230 ML RC PRN Prescribed by: Pranav Griffiths on 08/15/21 1656 Polyethylene Glycol 3350 (Miralax) 17 Gram Powd.pack, 17 GM PO DAILY Prescribed by: Pranav Griffiths on 08/15/21 3188 Review of Systems Review of Systems Constitutional: no symptoms reported Eyes: No Symptoms Reported Ears, Nose, Mouth, Throat: no symptoms reported Respiratory: no symptoms reported Cardiovascular: no symptoms reported Gastrointestinal: no symptoms reported Genitourinary: no symptoms reported Musculoskeletal: see HPI Skin: see HPI Psychiatric/Neurological: See HPI Endocrine: No Symptoms Reported Hematologic/Lymphatic: No Symptoms Reported Past Tqfgwol-Rcytaz-Afhevy Hx Patient Social History Tobacco Use?: Yes Tobacco type used: Cigarettes Smoking Status: Current Everyday Smoker Use of E-Cig and/or Vaping dev: No Substance use?: No Alcohol Use?: No Immunizations Up To Date Tetanus Booster (TDap): Less than 5yrs First/Initial COVID19 Vaccinat: 11/10 Second COVID19 Vaccination Oskar: 12/10 Third COVID19 Vaccination Date: 11/10 Seasonal Allergies Seasonal Allergies: No Past Medical History Surgery/Hospitalization HX: cardiac stents, spinal sx, appy, bilateral carotid endartectomy, Surgeries: Yes (EYES;C+L SPINE;CARDIAC CATHS-STENTS X3;BILAT CAROTID ENDART;FOOT;SKIN CA) Angioplasty, Appendectomy, Cardiac, Coronary Stent, Eye Surgery, Orthopedic, Vascular Surgery Respiratory: Yes Pneumonia, Chronic Bronchitis, COPD, Emphysema Currently Using CPAP: No Currently Using BIPAP: No Cardiac: Yes (CARDIAC CATHS-STENTS X3; BILAT CAROTID ENDARTERECTOMIES;R CAROTID STENT) Coronary Artery Disease, High Cholesterol, Hypertension, Peripheral Vascular Neurological: Yes (stroke Jan 20, 2020-RIGHT SIDE PARALYSI, R sided stent placed; TIA 03/23/20) Neuropathy, Stroke Reproductive Disorders: No Sexually Transmitted Disease: No HIV/AIDS: No Genitourinary: Yes Benign Prostatic Hyperpl, Renal Failure Gastrointestinal: Yes (HEPATITIS C--S/P TREATMENT) Gastroesophageal Reflux Musculoskeletal: Yes (CHRONIC NECK AND BACK PAIN-S/P C-SPINE + L-SPINE SURGERY; L FOOT FX/ORIF) Chronic Back Pain Endocrine: No HEENT: Yes (READING GLASSES;EYE SURGERY CHILD) Loss of Vision: Bilateral Hearing Impairment: Hard of Hearing Cancer: Yes Skin Did You Recieve Any Treatments: Yes What Type of Treatment Did You: Surgical Intervention Psychosocial: Yes (SUBSTANCE ABUSE) Anxiety, Violent Behavior, Depression Integumentary: Yes (SKIN CANCER-GETS BLISTERS) Recent Skin Changes Blood Disorders: No Adverse Reaction/Blood Tranf: No Family Medical History Cancer 19 FATHER (SKIN) 19 MOTHER Cancer of colon 19 MOTHER Kidney disease 19 FATHER (PASSED KIDNEY FAILURE) SOCIAL HISTORY: -ETOH--OCCASIONAL USE, HX OF HEAVY USE -DRUGS--DAILY MARIJUANA USE, ALSO METH USE. DENIES IV DRUG USE -SMOKES 2 PPD PAST SURGICAL HISTORY: -LAST CARDIAC CATH DONE HERE IN 2013--PATENT STENTS -CARDIAC CATHS WITH STENTS X 3 -BILATERAL CAROTID ENDARTERECTOMY -RIGHT CAROTID STENT 01/21/20 AT -RIGHT EYE SURGERY CHILD -CERVICAL SPINE AND LUMBAR SPINE SURGERIES -LEFT FOOT FRACTURE/ ORIF -SKIN CANCER REMOVAL -APPENDECTOMY -STRESS TEST 01/05/[address] ALVAREZ: 1. Patient tolerated Lexiscan well, and transient episode of hypotension, responded to IV fluid 2. Diaphragmatic attenuation with no significant ischemia or infarction on SPECT images 3. Normal left ventricular size, EF 66% Physical Exam Vital Signs Vital Signs - First Documented 12/02/21 02:35 Temp 36.6 Pulse 56 Resp 18 B/P (MAP) 141/91 (108) Pulse Ox 96 Capillary Refill : Height, Weight, BMI Height: 6'1.00" Weight: 195lbs. 0oz. [id number]; 23.00 BMI Method:Actual General Appearance: WD/WN, no apparent distress HEENT: PERRL/EOMI, other (Abrasion/contusion over the crown of his scalp with minimal tenderness) Neck: non-tender, supple, normal inspection Cardiovascular: regular rate, rhythm, no edema Respiratory: lungs clear, normal breath sounds, no respiratory distress, no accessory muscle use Gastrointestinal: normal bowel sounds, non tender, soft Back: normal inspection, no CVA tenderness Extremities: non-tender, normal inspection, no pedal edema Psychiatric: alert, oriented x 3 Cra[place] Nerves: normal hearing, normal speech Motor/Sensory: weak motor strength RUE, weak motor strength RLE Skin: normal color, warm/dry [place] Coma Score Best Eye Response: (4) Open Spontaneously Best Verbal Response: (5) Oriented Best Motor Response: (6) Obeys Commands [place] Total: 15 Progress/Results/Core Measures Results/Orders My Orders Orders - RIVERA LAZO MD Ct Head Wo (12/02/21 02:43) Vital Signs/I&O 12/02/21 02:35 Temp 36.6 Pulse 56 Resp 18 B/P (MAP) 141/91 (108) Pulse Ox 96 Blood Pressure Mean: 108 Progress Progress Note : Progress Note CT head was unremarkable. Patient required no further treatment. Departure Impression Primary Impression: Fall from wheelchair Qualified Codes: W05.0XXA - Fall from non-moving wheelchair, initial encounter Additional Impression: Scalp contusion Qualified Codes: S00.03XA - Contusion of scalp, initial encounter Disposition: HOME, SELF-CARE Condition: Stable Departure-Patient Inst. Decision time for Depature: 05:05 Referrals: YUMIKO HERNANDEZ MD (PCP/Family) Primary Care Physician Patient Instructions: Contusion (DC) Add. Discharge Instructions: No serious injuries were identified on your CT scan. You may use Tylenol (acetaminophen) up to 1000 mg every 6 hours as needed for pain. Add ibuprofen sparingly up to 400 mg every 6 hours as needed for pain not controlled by Tylenol. Return to care if there are worsening symptoms despite following these instructions. All discharge instructions reviewed with patient and/or family. Voiced unders tanding. RIVERA LAZO MD Dec 02, 2021 05:08
--- NOTE | 2021-12-02 06:07 | Diagnostic Imaging Report ---
PROCEDURE: CT head without contrast. TECHNIQUE: Multiple contiguous axial images were obtained through the brain without the use of intravenous contrast. Auto Exposure Controls were utilized during the CT exam to meet ALARA standards for radiation dose reduction. INDICATION: Headache after fall with head trauma. Comparison made with prior examination 09/11/2021 FINDINGS: There is some prominence of ventricles and sulci. There is chronic microvascular ischemic disease. There is unchanged decreased attenuation in the left cerebral hemisphere and right parietal lobe. There is no hydrocephalus. There is no midline shift. There is no mass, hemorrhage or extra-axial fluid collection. Calvarium is intact. Sinuses and mastoid air cells are clear. IMPRESSION: No acute intracranial abnormality. Chronic encephalomalacia and atrophy as described. Dictated by: Dictated on workstation # [id number]
[2021-12-02 07:42] VITALS: BP 135/89
== END 2021-12-02 07:42 | disposition home or self-care (01) ==
LOC: EDUNIT# 02:27 → ER 02:28
DX: S00.03XA Contusion of scalp, initial encounter (principal); F17.210 Nicotine dependence, cigarettes, uncomplicated; W05.0XXA Fall from non-moving wheelchair, initial encounter
CPT/HCPCS: 70450

== ENCOUNTER 2022-01-26 15:30 | Emergency (ER) | payer OTHER ==
[~2022-01-26] VITALS: Ht 182.8 cm; Wt 77.8 kg
[~2022-01-26 15:30] MED LIST changes: +ALBU8.5H6 IH; +CLOP-31 PO; -CLOP75TA69 PO; -RT-ALBUINH IH
[2022-01-26] MEDS ORDERED: morphine INJ 10 MG/ML 1ML (SYR OR VIAL) IVP STA (15:51)
[2022-01-26 15:57] LABS: BASOPHILS # (AUTO) 0.1 10^3/uL (0.0-0.1); BASOPHILS % (AUTO) 1 % (0-10); EOSINOPHILS # (AUTO) 0.3 10^3/uL (0.0-0.3); EOSINOPHILS % (AUTO) 4 % (0-10); HEMATOCRIT 39 % (40-54); HEMOGLOBIN 12.2 g/dL (13.3-17.7); LYMPHOCYTES # (AUTO) 2.1 10^3/uL (1.0-4.0); LYMPHOCYTES % (AUTO) 23 % (12-44); MEAN CORPUSCULAR HEMOGLOBIN 28 pg (25-34); MEAN CORPUSCULAR HGB CONC 32 g/dL (32-36); MEAN CORPUSCULAR VOLUME 88 fL (80-99); MEAN PLATELET VOLUME 11.2 fL (9.0-12.2); MONOCYTES # (AUTO) 0.8 10^3/uL (0.0-1.0); MONOCYTES % (AUTO) 9 % (0-12); NEUTROPHILS # (AUTO) 5.8 10^3/uL (1.8-7.8); NEUTROPHILS % (AUTO) 63 % (42-75); PLATELET COUNT 193 10^3/uL (130-400); WHITE BLOOD COUNT 9.1 10^3/uL (4.3-11.0)
--- NOTE | 2022-01-26 15:57 | ED Chest Pain ---
General Chief Complaint: Cardiac/General Problems Stated Complaint: CP Nursing Triage Note: PT BROUGHT IN BY [facility] FROM [facility] WITH COMPLAINT OF CP. STATES HAS BEEN INTERMITTENT FOR THE LAST 2 DAYS. NOTIFIED STAFF AT NOON TODAY. GIVEN 324 ASA BY EMS. Source: patient Exam Limitations: no limitations History of Present Illness Date Seen by Provider: Jan 26, 2022 Time Seen by Provider: 15:34 Initial Comments Patient is a 66-year-old male presents to the emergency room by ambulance from [facility] chief complaint midsternal chest pain onset yesterday. It has been waxing and waning until this morning when it started about 9:00 and has been persistent all day. Patient describes it as an achy pain. He states it radiates into his back. He was sitting watching TV this morning when it started. He felt a little short of breath as well as "queasy". He has a history of cardiac stent placement back in 2012, and . Dr. Davis is his junior copywriter. Patient states he is compliant with his daily medications which include Plavix and baby aspirin. He was given 324 mg of aspirin by EMS prior to arrival. He currently rates his pain a "1". No recent fevers, chills or flulike symptoms. No problems with bowel or bladder. He has chronic lower extremity swelling that is no worse than usual. He states the last time he saw Dr. Davis was approximately 2014. He does have sublingual nitroglycerin at [facility] but has not taken any. All other review of systems reviewed and negative except as stated. Timing/Duration: 12 hours Severity/Quality: mild, aching, dull Location: substernal Radiation: back Activities at Onset: emotional stress (Worried about his home) Prior CP/Workup: cardiac cath (With stent) ASA po GREENS PICKER: Yes NTG SL GREENS PICKER: No Associated Symptoms: back pain, nausea/vomiting, shortness of breath Allergies and Home Medications Allergies Coded Allergies: No Known Drug Allergies (Unverified , 03/13/18) Patient Home Medication List Home Medication List Reviewed: Yes Acetaminophen (Tylenol 8 Hour) 650 Mg Tablet.er, 650 MG PO Q4H PRN for PAIN-MILD (1-4), (Reported) Entered as Reported by: RENNY STEPHENS on 01/05/21 0928 Albuterol Sulfate (Ventolin Hfa) 1 Puff Puff, 2 PUFF IH Q6H PRN for SHORTNESS OF BREATH, (Reported) Entered as Reported by: ANNA KOVACS on 10/19/20 132 Aspirin (Aspirin EC) 325 Mg Tablet.dr, 325 MG PO DAILY, (Reported) Entered as Reported by: ANNA KOVACS on 10/19/20 1328 Atorvastatin Calcium (Atorvastatin Calcium) 80 Mg Tablet, 80 MG PO HS, (Reported) Entered as Reported by: RENNY STEPHENS on 04/28/20 1607 Azithromycin (Azithromycin) 250 Mg Tablet, 250 MG PO UD Prescribed by: RIVERA SHNIE on 09/10/21 1306 Baclofen (Baclofen) 10 Mg Tablet, 10 MG PO Q8H PRN for MUSCLE SPASMS, (Reported) Entered as Reported by: LEYLA ESPINOZA on 03/13/18 135 Bupropion HCl (Bupropion HCl Sr) 150 Mg Tablet.er, 150 MG PO BID, (Reported) Entered as Reported by: RENNY STEPHENS on 01/05/21 09 Cefdinir (Cefdinir) 300 Mg Capsule, 300 MG PO BID Prescribed by: RIVERA SHINE on 09/10/21 130 Celecoxib (Celebrex) 200 Mg Capsule, 200 MG PO DAILY, (Reported) Entered as Reported by: RENNY STEPHENS on 01/05/21927 Cholecalciferol (Vitamin D3) (Vitamin D3) 50 Mcg Tablet, 50 MCG PO DAILY, (Reported) Entered as Reported by: ANNA KOVACS on 10/19/20 132 Clopidogrel Bisulfate (Plavix) 75 Mg Tablet, 75 MG PO DAILY, (Reported) Entered as Reported by: LEYLA ESPINOZA on 03/13/18 1354 Fluticasone Propionate (Fluticasone Propionate) 16 Gm Monson.susp, 2 SPRAYS NSEACH DAILY, (Reported) Entered as Reported by: ANNA KOVACS on 10/19/20 132 Gabapentin (Neurontin) 300 Mg Capsule, 900 MG PO TID, (Reported) Entered as Reported by: ANNA KOVACS on 10/19/20 132 Lisinopril (Lisinopril) 40 Mg Tablet, 20 MG PO DAILY, (Reported) Entered as Reported by: ANNA KOVACS on 10/19/20 1328 Loratadine (Loratadine) 10 Mg Tablet, 10 MG PO DAILY, (Reported) Entered as Reported by: RENNY STEPHENS on 04/26/21 1229 Montelukast Sodium (Montelukast Sodium) 10 Mg Tablet, 10 MG PO HS, (Reported) Entered as Reported by: RENNY STEPHENS on 04/26/21 1229 Na Phos,M-B/Na Phos,Di-Ba (Fleet Enema Extra) 19 Gram-7 Gram/197 Ml Enema, 230 ML RC PRN Prescribed by: Pranav Griffiths on 08/15/211655 Polyethylene Glycol 3350 (Miralax) 17 Gram Powd.pack, 17 GM PO DAILY Prescribed by: Pranav Griffiths on 08/15/211655 Review of Systems Review of Systems Constitutional: see HPI EENTM: No Symptoms Reported Respiratory: Shortness of Air Cardiovascular: Chest Pain Gastrointestinal: Nausea Genitourinary: No Symptoms Reported Musculoskeletal: no symptoms reported Skin: no symptoms reported Psychiatric/Neurological: Other (Stress) All Other Systems Reviewed Negative Unless Noted: Yes Past Nddeibq-Hjzbti-Mdfcva Hx Patient Social History Tobacco Use?: Yes Tobacco type used: Cigarettes Smoking Status: Current Everyday Smoker Use of E-Cig and/or Vaping dev: No Substance use?: No Alcohol Use?: No Pt feels they are or have been: No Immunizations Up To Date Tetanus Booster (TDap): Less than 5yrs First/Initial COVID19 Vaccinat: 11/10 Second COVID19 Vaccination Oskar: 12/10 Third COVID19 Vaccination Date: 11/10 Seasonal Allergies Seasonal Allergies: No Past Medical History Surgery/Hospitalization HX: cardiac stents, spinal sx, appy, bilateral carotid endartectomy, Surgeries: Yes (EYES;C+L SPINE;CARDIAC CATHS-STENTS X3;BILAT CAROTID ENDART;FOOT;SKIN CA) Angioplasty, Appendectomy, Cardiac, Coronary Stent, Eye Surgery, Orthopedic, Vascular Surgery Respiratory: Yes Pneumonia, Chronic Bronchitis, COPD, Emphysema Currently Using CPAP: No Currently Using BIPAP: No Cardiac: Yes (CARDIAC CATHS-STENTS X3; BILAT CAROTID ENDARTERECTOMIES;R CAROTID STENT) Coronary Artery Disease, High Cholesterol, Hypertension, Peripheral Vascular Neurological: Yes (stroke Jan 20, 2020-RIGHT SIDE PARALYSI, R sided stent placed; TIA 03/23/20) Neuropathy, Stroke Reproductive Disorders: No Sexually Transmitted Disease: No HIV/AIDS: No Genitourinary: Yes Benign Prostatic Hyperpl, Renal Failure Gastrointestinal: Yes (HEPATITIS C--S/P TREATMENT) Gastroesophageal Reflux Musculoskeletal: Yes (CHRONIC NECK AND BACK PAIN-S/P C-SPINE + L-SPINE SURGERY; L FOOT FX/ORIF) Chronic Back Pain Endocrine: No HEENT: Yes (READING GLASSES;EYE SURGERY CHILD) Loss of Vision: Bilateral Hearing Impairment: Hard of Hearing Cancer: Yes Skin Did You Recieve Any Treatments: Yes What Type of Treatment Did You: Surgical Intervention Psychosocial: Yes (SUBSTANCE ABUSE) Anxiety, Violent Behavior, Depression Integumentary: Yes (SKIN CANCER-GETS BLISTERS) Recent Skin Changes Blood Disorders: No Adverse Reaction/Blood Tranf: No Family Medical History Cancer 19 FATHER (SKIN) 19 MOTHER Cancer of colon 19 MOTHER Kidney disease 19 FATHER (PASSED KIDNEY FAILURE) SOCIAL HISTORY: -ETOH--OCCASIONAL USE, HX OF HEAVY USE -DRUGS--DAILY MARIJUANA USE, ALSO METH USE. DENIES IV DRUG USE -SMOKES 2 PPD PAST SURGICAL HISTORY: -LAST CARDIAC CATH DONE HERE IN 2013--PATENT STENTS -CARDIAC CATHS WITH STENTS X 3 -BILATERAL CAROTID ENDARTERECTOMY -RIGHT CAROTID STENT 01/21/20 AT -RIGHT EYE SURGERY CHILD -CERVICAL SPINE AND LUMBAR SPINE SURGERIES -LEFT FOOT FRACTURE/ ORIF -SKIN CANCER REMOVAL -APPENDECTOMY -STRESS TEST 01/05/[address] ALVAREZ: 1. Patient tolerated Lexiscan well, and transient episode of hypotension, responded to IV fluid 2. Diaphragmatic attenuation with no significant ischemia or infarction on SPECT images 3. Normal left ventricular size, EF 66% Physical Exam Vital Signs Vital Signs - First Documented 01/26/22 15:31 Temp 36.3 Pulse 55 Resp 24 B/P (MAP) 119/86 (97) Pulse Ox 97 O2 Delivery Room Air Capillary Refill : Less Than 3 Seconds Height, Weight, BMI Height: 6'1.00" Weight: 195lbs. 0oz. 88.506140if; 23.00 BMI Method:Actual General Appearance: No Apparent Distress, WD/WN HEENT: PERRL/EOMI Neck: Normal Inspection Respiratory: Lungs Clear, Normal Breath Sounds, No Accessory Muscle Use, No Respiratory Distress Cardiovascular: Regular Rate, Rhythm, Bradycardia Gastrointestinal: Non Tender, Soft Extremity: Normal Inspection, Normal Range of Motion, Non Tender, No Calf Tenderness, Pedal Edema (2+) Neurologic/Psychiatric: Alert, Oriented x3, No Motor/Sensory Deficits, Normal Mood/Affect Skin: Normal Color, Warm/Dry Progress/Results/Core Measures Results/Orders Lab Results Laboratory Tests Test 01/26/22 15:38 Range/Units White Blood Count 9.1 4.3-11.0 10^3/uL Red Blood Count 4.40 4.30-5.52 10^6/uL Hemoglobin 12.2 L 13.3-17.7 g/dL Hematocrit 39 L 40-54 % Mean Corpuscular Volume 88 80-99 fL Mean Corpuscular Hemoglobin 28 25-34 pg Mean Corpuscular Hemoglobin Concent 32 32-36 g/dL Red Cell Distribution Width 16.0 H 10.0-14.5 % Platelet Count 193 130-400 10^3/uL Mean Platelet Volume 11.2 9.0-12.2 fL Immature Granulocyte % (Auto) 0 % Neutrophils (%) (Auto) 63 42-75 % Lymphocytes (%) (Auto) 23 12-44 % Monocytes (%) (Auto) 9 0-12 % Eosinophils (%) (Auto) 4 0-10 % Basophils (%) (Auto) 1 0-10 % Neutrophils # (Auto) 5.8 1.8-7.8 10^3/uL Lymphocytes # (Auto) 2.1 1.0-4.0 10^3/uL Monocytes # (Auto) 0.8 0.0-1.0 10^3/uL Eosinophils # (Auto) 0.3 0.0-0.3 10^3/uL Basophils # (Auto) 0.1 0.0-0.1 10^3/uL Immature Granulocyte # (Auto) 0.0 0.0-0.1 10^3/uL Prothrombin Time 13.2 12.2-14.7 SEC INR Comment 1.0 0.8-1.4 Activated Partial Thromboplast Time 26 24-35 SEC Sodium Level 140 135-145 MMOL/L Potassium Level 4.1 3.6-5.0 MMOL/L Chloride Level 106 98-107 MMOL/L Carbon Dioxide Level 25 21-32 MMOL/L Anion Gap 9 5-14 MMOL/L Blood Urea Nitrogen 17 7-18 MG/DL Creatinine 0.97 0.60-1.30 MG/DL Estimat Glomerular Filtration Rate 87 BUN/Creatinine Ratio 18 Glucose Level 88 70-105 MG/DL Calcium Level 9.4 8.5-10.1 MG/DL Corrected Calcium 9.5 8.5-10.1 MG/DL Magnesium Level 1.9 1.6-2.4 MG/DL Total Bilirubin 0.6 0.1-1.0 MG/DL Aspartate Amino Transf (AST/SGOT) 13 5-34 U/L Alanine Aminotransferase (ALT/SGPT) 16 0-55 U/L Alkaline Phosphatase 70 40-136 U/L Myoglobin 133.1 H 10.0-92.0 NG/ML Troponin I < 0.028 <0.028 NG/ML Total Protein 6.5 6.4-8.2 GM/DL Albumin 3.9 3.2-4.5 GM/DL My Orders Orders - PAWEL DASH MD Ekg Tracing (01/26/22 15:32) Cbc With Automated Diff (01/26/22 15:51) Magnesium (01/26/22 15:51) Chest 1 View, Ap/Pa Only (01/26/22 15:51) Ekg Tracing (01/26/22 15:51) Comprehensive Metabolic Panel (01/26/22 15:51) Myoglobin Serum (01/26/22 15:51) Protime With Inr (01/26/22 15:51) Partial Thromboplastin Time (01/26/22 15:51) O2 (01/26/22 15:51) Monitor-Rhythm Ecg Trace Only (01/26/22 15:51) Lipid Panel (01/27/22 06:00) Ed Iv/Invasive Line Start (01/26/22 15:51) Troponin I Chip (01/26/22 15:51) Morphine Injection (Morphine Injection (01/26/22 15:51) Sucralfate Tablet (Carafate Tablet) (01/26/22 16:30) Lidocaine 2% Viscous 15 Ml (Xylocaine Vi (01/26/22 16:30) Antacid Suspension (Mylanta Suspension (01/26/22 16:30) Medications Given in ED Current Medications Medications Dose Ordered Sig/Lindsey Route Start Time Stop Time Status Last Admin Dose Admin Al Hydrox/Mg Hydrox/Simethicone 30 ml ONCE ONCE PO 01/26/22 16:30 01/26/22 16:31 DC 01/26/22 16:42 30 ML Lidocaine HCl 5 ml ONCE ONCE PO 01/26/22 16:30 01/26/22 16:31 DC 01/26/22 16:42 5 ML Sucralfate 1 gm ONCE ONCE PO 01/26/22 16:30 01/26/22 16:31 DC 01/26/22 16:42 1 GM Vital Signs/I&O 01/26/22 15:31 Temp 36.3 Pulse 55 Resp 24 B/P (MAP) 119/86 (97) Pulse Ox 97 O2 Delivery Room Air Blood Pressure Mean: 97 Progress Progress Note : Time: 17:06 Progress Note Patient seen and evaluated, 66-year-old status post stents in 2013 and stroke a little over a year ago presents with midsternal chest discomfort that seems to radiate into his back. Evaluation today includes a physical exam, chest pain "protocol". When he arrived he had pain at about a "1". He had been given full-strength aspirin. He was in no acute distress, did complain of little shortness of breath and nausea. Increased risk for acute coronary syndrome however the patient has had pain ongoing since 9 AM. With a negative troponin, reassuring and normal EKG lower likelihood of ACS at this time. Patient was treated with a GI cocktail and had complete relief of his symptoms. Vital signs remained stable. The patient states "I really did not think it was my heart. I have been under a lot of stress because I am getting evicted". He states that he has been really worried about his eviction and finding a new place to live and the finances associated. He is relieved that his work-up is reassuring. I have given him return precautions and advised that he follows up with Dr. Davis within the next couple of weeks. He verbalized understanding. Agreeable with plan of care. All questions are sought and answered. Patient is stable for discharge. Initial ECG Impression Date: Jan 26, 2022 Initial ECG Impression Time: 15:34 Initial ECG Rate: 55 Initial ECG Rhythm: Normal Sinus Initial ECG Intervals MI interval 161 QRS 114 QTc 385 Comment Sinus bradycardia without ectopy. Slight ST segment elevation of 1 mm in V1 and V2 with scooped ST segments in V5 and V6 Diagnostic Imaging Diagonstic Imaging: Xray Plain Films/CT/US/NM/MRI: chest Comments [facility], [place] NAME: CRISTI KRISHNAMURTHY [facility] REC#: [id number] PT STATUS: REG ER : 1955 PHYSICIAN: PAWEL DASH MD ADMIT DATE: 01/26/22/ER Draft Date of Exam:01/26/22 CHEST 1 VIEW, AP/PA ONLY INDICATION: Chest pain COMPARISON: 09/11/2021 FINDINGS: Single frontal view of the chest demonstrates mild cardiomegaly. Pulmonary vasculature however is within normal limits. The lungs are well aerated and clear. No large pleural effusion or pneumothorax is seen. The visualized osseous structures show no acute abnormalities. IMPRESSION: 1. Mild cardiomegaly, but no evidence of failure or focal infiltrate. Dictated on workstation # [id number] Dict: 01/26/22 1618 Trans: 01/26/[address] [facility] [id number] Interpreted by: HILARIA TONG MD Electronically signed by: Departure Impression Primary Impression: Chest pain Qualified Codes: R07.9 - Chest pain, unspecified Additional Impression: History of coronary artery disease Disposition: 01 HOME, SELF-CARE Condition: Improved Departure-Patient Inst. Decision time for Depature: 17:08 Referrals: YUMIKO HERNANDEZ MD (PCP) Primary Care Physician JUANITA DAVIS MD [facility] Patient Instructions: Chest Pain Add. Discharge Instructions: Continue your daily medications as prescribed. Be sure and take your Plavix and aspirin as directed. If you have a return of chest pain especially with sweating, shortness of breath, nausea and vomiting please come back to the emergency department for reevaluation. You need to call Dr. Davis's office for a follow-up appointment, you should be scheduled for an outpatient stress test to further evaluate your heart function and prior stents. Copy Copies To 1: JUANITA DAVIS MD [facility] PAWEL DASH MD Jan 26, 2022 15:57
[2022-01-26 16:09] LABS: PROTHROMBIN TIME PATIENT 13.2 SEC (12.2-14.7)
[2022-01-26 16:11] LABS: ALBUMIN 3.9 GM/DL (3.2-4.5); BILIRUBIN,TOTAL 0.6 MG/DL (0.1-1.0); CALCIUM 9.4 MG/DL (8.5-10.1); CREATININE SERUM 0.97 MG/DL (0.60-1.30); MAGNESIUM 1.9 MG/DL (1.6-2.4); POTASSIUM 4.1 MMOL/L (3.6-5.0); TOTAL PROTEIN 6.5 GM/DL (6.4-8.2)
--- NOTE | 2022-01-26 16:21 | Diagnostic Imaging Report ---
INDICATION: Chest pain COMPARISON: 09/11/2021 FINDINGS: Single frontal view of the chest demonstrates mild cardiomegaly. Pulmonary vasculature however is within normal limits. The lungs are well aerated and clear. No large pleural effusion or pneumothorax is seen. The visualized osseous structures show no acute abnormalities. IMPRESSION: 1. Mild cardiomegaly, but no evidence of failure or focal infiltrate. Dictated by: Dictated on workstation # [id number]
[2022-01-26] MEDS ORDERED: SUCRALFATE 1 GM (CARAFATE) TAB PO ONE (16:30)
[2022-01-26] MEDS ORDERED: ANTACID SUSP 30 ML UDC (MYLANTA) PO ONE (16:30)
[2022-01-26] MEDS ORDERED: LIDOCAINE 2% VISCOUS 15 ML UDC PO ONE (16:30)
[2022-01-26 17:50] VITALS: BP 151/82
== END 2022-01-26 17:50 | disposition home or self-care (01) ==
LOC: ER 15:30 → EDUNIT# 15:30 → ER 17:50
DX: R07.2 Precordial pain (principal); F17.210 Nicotine dependence, cigarettes, uncomplicated; Z95.5 Presence of coronary angioplasty implant and graft; Z79.02 Long term (current) use of antithrombotics/antiplatelets
CPT/HCPCS: 36415; 71045; 80053; 83735; 83874; 84484; 85025; 85610; 85730; 93005; 93041

== ENCOUNTER → 2022-04-07 | Outpatient (CLI) | payer OTHER ==
--- NOTE | 2022-04-07 11:33 | Diagnostic Imaging Report ---
CLINICAL INDICATION: Patient is having seizures. EXAM: MRI of the brain performed without IV contrast. Sequences include sagittal T1, axial DWI, ADC map, coronal 3D FSPGR with sagittal and axial reformations, axial T1, axial T2, axial FLAIR, coronal gradient echo, coronal T2 thin, and coronal FLAIR thin. COMPARISON: Head CT without contrast dated 12/02/2021. MRI of the brain without contrast dated 05/25/2020. CT angiogram of the head/neck dated 10/18/2020. FINDINGS: There is no evidence of acute cerebral infarct, intracranial hemorrhage, brain herniation or midline shift. There is interval evolution of the now chronic infarct changes involving the posterior left frontal lobe regions and left parietal lobe regions. There is interval development of small chronic infarct changes involving the posterior lateral right frontal and parietal regions. Stable small to moderate amount of chronic infarct involving the right occipital and parietal regions. Again seen chronic infarcts involving left parietal lobe. There is interval development of high T2 signal involving the left-sided cortical spinal track extending from the dany to the smiley radiata which may be related to Wallerian degeneration. There is no brain herniation or midline shift. There is no hydrocephalus. Basal cisterns are unremarkable. The pituitary gland, sella, and suprasellar regions are unremarkable as visualized. There is interval abnormal signal and loss of flow void involving the visualized distal cervical right ICA, petrous ICA, cavernous and paraclinoid right ICA. There is normal flow void seen involving the right ICA terminus. It is concerning for interval occlusion of the intracranial right ICA. Previously seen abnormal signal and loss of flow void involving the visualized intracranial left ICA appears to have improved. These findings are noted on the prior CT angiogram of the head and neck. The remainder of the telida of Zhang flow void vascular structures have not significantly changed in the interim. Extra cranial soft tissues, skull, and orbits are unremarkable. There is minimal fluid involving the left mastoid air cells. Paranasal sinuses are clear. IMPRESSION: 1: There is no evidence of acute cerebral infarct, intracranial hemorrhage, brain herniation, midline shift, or hydrocephalus. 2: There is chronic cerebral infarcts involving the high posterior left frontal/parietal lobe region which has evolved in the interim and interval development of small chronic infarct involving the lateral posterior right frontal/parietal region. 3: Stable chronic cerebral infarcts involving the left parietal lobe, right parietal lobe and right occipital lobe regions. 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 Dictated by: Dictated on workstation # [id number]
== END ==
LOC: RAD 08:27
PROVIDERS: ATTEND Physician Assistant Medical
DX: I63.89 Other cerebral infarction (principal); G58.8 Other specified mononeuropathies
CPT/HCPCS: 70551

== ENCOUNTER 2022-07-10 08:22 | Inpatient (IN) | payer OTHER, MEDICARE, MEDICAID ==
[~2022-07-10] VITALS: Ht 187 cm; Wt 82.0 kg
[~2022-07-10 08:22] MED LIST changes: -GABA300S2 PO; +GABA300S3 PO; +SENN-271 PO; -SENN1TAB76 PO
--- NOTE | 2022-07-10 08:35 | ED General ---
General Chief Complaint: General Problems/Pain Stated Complaint: LEFT HAND WEAKNESS Source of Information: Patient, EMS Exam Limitations: No Limitations History of Present Illness Date Seen by Provider: July 10, 2022 Time Seen by Provider: 08:19 Initial Comments The patient is a 67-year-old male who resides in an assisted living facility and arrives via EMS for left hand weakness. He states he woke up this morning just before 7 and moved from the bed to a chair in his living room. While in the chair he fell asleep. He was awakened in about 730 and states he felt a burning above his left eye, as though maybe someone was putting a cigarette out on his face. He then noticed some left hand weakness. Notably he does have a history of CVA causing severe weakness of his right side. He is wheelchair-bound secondary to this. He tells me that the weakness on the right side is at its baseline however he developed new weakness in his left hand this morning. He has not noticed any changes in his vision or dysarthria. Record review shows he is taking aspirin and Plavix. All other systems reviewed and negative except documented per HPI. Voice recognition software was used to help create this chart Allergies and Home Medications Allergies Coded Allergies: No Known Drug Allergies (Unverified , 03/13/18) Patient Home Medication List Home Medication List Reviewed: Yes Acetaminophen (Tylenol 8 Hour) 650 Mg Tablet.er, 650 MG PO Q4H PRN for PAIN-MILD (1-4), (Reported) Entered as Reported by: RENNY STEPHENS on 01/05/21 0928 Albuterol Sulfate (Ventolin Hfa) 1 Puff Puff, 2 PUFF IH Q6H PRN for SHORTNESS OF BREATH, (Reported) Entered as Reported by: ANNA KOVACS on 10/19/20 1328 Aspirin (Aspirin EC) 325 Mg Tablet.dr, 325 MG PO DAILY, (Reported) Entered as Reported by: ANNA KOVACS on 10/19/20 1328 Atorvastatin Calcium (Atorvastatin Calcium) 80 Mg Tablet, 80 MG PO HS, (Reported) Entered as Reported by: RENNY STEPHENS on 04/28/20 1607 Azithromycin (Azithromycin) 250 Mg Tablet, 250 MG PO UD Prescribed by: RIVERA SHINE on 09/10/21 1306 Baclofen (Baclofen) 10 Mg Tablet, 10 MG PO Q8H PRN for MUSCLE SPASMS, (Reported) Entered as Reported by: LEYLA ESPINOZA on 03/13/18 1354 Bupropion HCl (Bupropion HCl Sr) 150 Mg Tablet.er, 150 MG PO BID, (Reported) Entered as Reported by: RENNY STEPHENS on 01/05/21 0928 Cefdinir (Cefdinir) 300 Mg Capsule, 300 MG PO BID Prescribed by: RIVERA SHINE on 09/10/21 1306 Celecoxib (Celebrex) 200 Mg Capsule, 200 MG PO DAILY, (Reported) Entered as Reported by: RENNY STEPHENS on 01/05/21 0928 Cholecalciferol (Vitamin D3) (Vitamin D3) 50 Mcg Tablet, 50 MCG PO DAILY, (Reported) Entered as Reported by: ANNA KOAVCS on 10/19/20 1328 Clopidogrel Bisulfate (Plavix) 75 Mg Tablet, 75 MG PO DAILY, (Reported) Entered as Reported by: LEYLA ESPINOZA on 03/13/18 1354 Fluticasone Propionate (Fluticasone Propionate) 16 Gm [place].susp, 2 SPRAYS NSEACH DAILY, (Reported) Entered as Reported by: ANNA KOVACS on 10/19/20 1328 Gabapentin (Neurontin) 300 Mg Capsule, 900 MG PO TID, (Reported) Entered as Reported by: ANNA KOVACS on 10/19/20 1328 Lisinopril (Lisinopril) 40 Mg Tablet, 20 MG PO DAILY, (Reported) Entered as Reported by: ANNA KOVACS on 10/19/20 1328 Loratadine (Loratadine) 10 Mg Tablet, 10 MG PO DAILY, (Reported) Entered as Reported by: RENNY STEPHENS on 04/26/21 1229 Montelukast Sodium (Montelukast Sodium) 10 Mg Tablet, 10 MG PO HS, (Reported) Entered as Reported by: RENNY STEPHENS on 04/26/21 1229 Na Phos,M-B/Na Phos,Di-Ba (Fleet Enema Extra) 19 Gram-7 Gram/197 Ml Enema, 230 ML RC PRN Prescribed by: Pranav Griffiths on 08/15/21 1656 Polyethylene Glycol 3350 (Miralax) 17 Gram Powd.pack, 17 GM PO DAILY Prescribed by: Pranav Griffiths on 08/15/21 9023 Review of Systems Review of Systems Constitutional: see HPI Past Vjfucwm-Uamckc-Bgwdpu Hx Patient Social History Tobacco Use?: No Use of E-Cig and/or Vaping dev: No Substance use?: No Alcohol Use?: No Immunizations Up To Date Tetanus Booster (TDap): Less than 5yrs First/Initial COVID19 Vaccinat: 11/10 Second COVID19 Vaccination Oskar: 12/10 Third COVID19 Vaccination Date: 11/10 Seasonal Allergies Seasonal Allergies: No Past Medical History Surgery/Hospitalization HX: cardiac stents, spinal sx, appy, bilateral carotid endartectomy, Surgeries: Yes (EYES;C+L SPINE;CARDIAC CATHS-STENTS X3;BILAT CAROTID ENDART;FOOT;SKIN CA) Angioplasty, Appendectomy, Cardiac, Coronary Stent, Eye Surgery, Orthopedic, Vascular Surgery Respiratory: Yes Pneumonia, Chronic Bronchitis, COPD, Emphysema Currently Using CPAP: No Currently Using BIPAP: No Cardiac: Yes (CARDIAC CATHS-STENTS X3; BILAT CAROTID ENDARTERECTOMIES;R CAROTID STENT) Coronary Artery Disease, High Cholesterol, Hypertension, Peripheral Vascular Neurological: Yes (stroke Jan 20, 2020-RIGHT SIDE PARALYSI, R sided stent placed; TIA 03/23/20) Neuropathy, Stroke Reproductive Disorders: No Sexually Transmitted Disease: No HIV/AIDS: No Genitourinary: Yes Benign Prostatic Hyperpl, Renal Failure Gastrointestinal: Yes (HEPATITIS C--S/P TREATMENT) Gastroesophageal Reflux Musculoskeletal: Yes (CHRONIC NECK AND BACK PAIN-S/P C-SPINE + L-SPINE SURGERY; L FOOT FX/ORIF) Chronic Back Pain Endocrine: No HEENT: Yes (READING GLASSES;EYE SURGERY CHILD) Loss of Vision: Bilateral Hearing Impairment: Hard of Hearing Cancer: Yes Skin Did You Recieve Any Treatments: Yes What Type of Treatment Did You: Surgical Intervention Psychosocial: Yes (SUBSTANCE ABUSE) Anxiety, Violent Behavior, Depression Integumentary: Yes (SKIN CANCER-GETS BLISTERS) Recent Skin Changes Blood Disorders: No Adverse Reaction/Blood Tranf: No Family Medical History Cancer 19 FATHER (SKIN) 19 MOTHER Cancer of colon 19 MOTHER Kidney disease 19 FATHER (PASSED KIDNEY FAILURE) SOCIAL HISTORY: -ETOH--OCCASIONAL USE, HX OF HEAVY USE -DRUGS--DAILY MARIJUANA USE, ALSO METH USE. DENIES IV DRUG USE -SMOKES 2 PPD PAST SURGICAL HISTORY: -LAST CARDIAC CATH DONE HERE IN 2013--PATENT STENTS -CARDIAC CATHS WITH STENTS X 3 -BILATERAL CAROTID ENDARTERECTOMY -RIGHT CAROTID STENT 01/21/20 AT -RIGHT EYE SURGERY CHILD -CERVICAL SPINE AND LUMBAR SPINE SURGERIES -LEFT FOOT FRACTURE/ ORIF -SKIN CANCER REMOVAL -APPENDECTOMY -STRESS TEST 01/05/[address] ALVAREZ: 1. Patient tolerated Lexiscan well, and transient episode of hypotension, responded to IV fluid 2. Diaphragmatic attenuation with no significant ischemia or infarction on SPECT images 3. Normal left ventricular size, EF 66% Physical Exam Vital Signs Vital Signs - First Documented 07/10/22 08:28 Temp 36.8 Pulse 69 Resp 20 B/P (MAP) 131/84 (100) Pulse Ox 96 O2 Delivery Room Air Capillary Refill : Height, Weight, BMI Height: 6'1.00" Weight: 195lbs. 0oz. 88.432873eb; 23.00 BMI Method:Actual General Appearance: No Apparent Distress, WD/WN Eyes: Bilateral Eye Normal Inspection, Bilateral Eye PERRL, Bilateral Eye EOMI HEENT: PERRL/EOMI, Normal ENT Inspection, Pharynx Normal Neck: Normal Inspection, Non Tender, Supple Respiratory: Chest Non Tender, Lungs Clear, Normal Breath Sounds, No Accessory Muscle Use, No Respiratory Distress Cardiovascular: Regular Rate, Rhythm, No Murmur, Normal Peripheral Pulses Gastrointestinal: Normal Bowel Sounds, Non Tender, Soft Back: Normal Inspection, No Vertebral Tenderness Extremity: Normal Capillary Refill, Normal Inspection, Normal Range of Motion, Non Tender Neurologic/Psychiatric: Alert, Oriented x3, Normal 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 Patient states this is at baseline. Left hand, arm have 4/5 strength. LLE 5/5 strength) Skin: Normal Color, Warm/Dry Progress/Results/Core Measures Suspected Sepsis SIRS Temperature: Pulse: Respiratory Rate: Laboratory Tests 07/10/22 08:35: White Blood Count 9.9 Blood Pressure / Mean: Laboratory Tests 07/10/22 08:35: Creatinine 1.12, INR Comment 1.0, Platelet Count 224, Total Bilirubin 1.0 Results/Orders Lab Results Laboratory Tests Test 5/21/23 08:35 Range/Units White Blood Count 9.9 4.3-11.0 10^3/uL Red Blood Count 4.79 4.30-5.52 10^6/uL Hemoglobin 13.0 L 13.3-17.7 g/dL Hematocrit 42 40-54 % Mean Corpuscular Volume 87 80-99 fL Mean Corpuscular Hemoglobin 27 25-34 pg Mean Corpuscular Hemoglobin Concent 31 L 32-36 g/dL Red Cell Distribution Width 15.3 H 10.0-14.5 % Platelet Count 224 130-400 10^3/uL Mean Platelet Volume 10.7 9.0-12.2 fL Immature Granulocyte % (Auto) 0 % Neutrophils (%) (Auto) 69 42-75 % Lymphocytes (%) (Auto) 19 12-44 % Monocytes (%) (Auto) 8 0-12 % Eosinophils (%) (Auto) 3 0-10 % Basophils (%) (Auto) 1 0-10 % Neutrophils # (Auto) 6.8 1.8-7.8 10^3/uL Lymphocytes # (Auto) 1.8 1.0-4.0 10^3/uL Monocytes # (Auto) 0.8 0.0-1.0 10^3/uL Eosinophils # (Auto) 0.3 0.0-0.3 10^3/uL Basophils # (Auto) 0.1 0.0-0.1 10^3/uL Immature Granulocyte # (Auto) 0.0 0.0-0.1 10^3/uL Prothrombin Time 13.3 12.2-14.7 SEC INR Comment 1.0 0.8-1.4 Activated Partial Thromboplast Time 28 24-35 SEC Sodium Level 144 135-145 MMOL/L Potassium Level 3.7 3.6-5.0 MMOL/L Chloride Level 104 98-107 MMOL/L Carbon Dioxide Level 27 21-32 MMOL/L Anion Gap 13 5-14 MMOL/L Blood Urea Nitrogen 16 7-18 MG/DL Creatinine 1.12 0.60-1.30 MG/DL Estimat Glomerular Filtration Rate 73 BUN/Creatinine Ratio 14 Glucose Level 133 H 70-105 MG/DL Calcium Level 10.2 H 8.5-10.1 MG/DL Corrected Calcium 10.0 8.5-10.1 MG/DL Total Bilirubin 1.0 0.1-1.0 MG/DL Aspartate Amino Transf (AST/SGOT) 15 5-34 U/L Alanine Aminotransferase (ALT/SGPT) 17 0-55 U/L Alkaline Phosphatase 93 40-136 U/L Total Protein 7.2 6.4-8.2 GM/DL Albumin 4.2 3.2-4.5 GM/DL My Orders Orders - MELINDA BECKER Laura DO Cbc With Automated Diff (07/10/22 08:30) Protime With Inr (07/10/22 08:30) Partial Thromboplastin Time (07/10/22 08:30) Comprehensive Metabolic Panel (07/10/22 08:30) Ekg Tracing (07/10/22 08:30) Nothing By Mouth (07/10/22 Breakfast) Accucheck Stat ONCE (07/10/22 08:30) Ed Iv/Invasive Line Start (07/10/22 08:30) Vital Signs Stroke Patient Q15M (07/10/22 08:30) Ct Head Wo-R/O Stroke (07/10/22 08:30) Monitor-Rhythm Ecg Trace Only (07/10/22 08:30) Dysphagia Screening Tool Q10MX1 (07/10/22 08:30) Lipid Panel (07/11/22 06:00) Ct Angio Head/Neck (07/10/22 08:30) Iohexol Injection (Omnipaque 350 Mg/Ml 1 (07/10/22 09:30) Ns (Ivpb) (Sodium Chloride 0.9% Ivpb Bag (07/10/22 09:30) Iohexol Injection (Omnipaque 350 Mg/Ml 1 (07/10/22 09:30) Received Contrast (Hold Metformin- Contr (07/10/22 09:30) Medications Given in ED Current Medications Medications Dose Ordered Sig/Lindsey Route Start Time Stop Time Status Last Admin Dose Admin Iohexol 100 ml ONCE ONCE IV 07/10/22 09:30 07/10/22 09:31 DC 07/10/22 09:24 75 ML Iohexol 100 ml ONCE ONCE IV 07/10/22 09:30 07/10/22 09:31 DC 07/10/22 09:24 100 ML Sodium Chloride 100 ml ONCE ONCE IV 07/10/22 09:30 07/10/22 09:31 DC 07/10/22 09:24 100 ML Vital Signs/I&O 07/10/22 08:28 Temp 36.8 Pulse 69 Resp 20 B/P (MAP) 131/84 (100) Pulse Ox 96 O2 Delivery Room Air Capillary Refill : Departure Communication (Admissions) Patient is hemodynamically stable. He does have significant left arm weakness and has difficulty holding his phone, troponin multiple times. He states this is new for him. Last known well time was 730. His NIH is low, 1 he has 4 out of 5 strength on his side, not a candidate for tPA at this time. Initial CT scan of his head with images were immediately reviewed by myself is negative for any acute abnormality, old strokes are present. Negative per radiology read as well. CT angiography of his head and neck shows chronic carotid occlusions bilaterally. I spoke with Dr. Ortiz at 1100 recommend some permissive hypertension to [id number] systolic but no other interventions at this time. I spoke Dr. Graves and this information was relayed. She agrees to admit the patient for further evaluation and treatment. Patient is already on dual platelet therapy with aspirin and Plavix Impression Primary Impression: Left arm weakness Disposition: ADMITTED INPATIENT Condition: Stable Departure-Patient Inst. Referrals: PAVAN TYSON PA-C (PCP) Primary Care Physician MELINDA BECKER DO July 10, 2022 08:35
[2022-07-10 08:48] LABS: BASOPHILS # (AUTO) 0.1 10^3/uL (0.0-0.1); BASOPHILS % (AUTO) 1 % (0-10); EOSINOPHILS # (AUTO) 0.3 10^3/uL (0.0-0.3); EOSINOPHILS % (AUTO) 3 % (0-10); HEMATOCRIT 42 % (40-54); LYMPHOCYTES # (AUTO) 1.8 10^3/uL (1.0-4.0); LYMPHOCYTES % (AUTO) 19 % (12-44); MEAN CORPUSCULAR HEMOGLOBIN 27 pg (25-34); MEAN CORPUSCULAR HGB CONC 31 g/dL (32-36); MEAN CORPUSCULAR VOLUME 87 fL (80-99); MEAN PLATELET VOLUME 10.7 fL (9.0-12.2); MONOCYTES # (AUTO) 0.8 10^3/uL (0.0-1.0); MONOCYTES % (AUTO) 8 % (0-12); NEUTROPHILS # (AUTO) 6.8 10^3/uL (1.8-7.8); NEUTROPHILS % (AUTO) 69 % (42-75); PLATELET COUNT 224 10^3/uL (130-400); WHITE BLOOD COUNT 9.9 10^3/uL (4.3-11.0)
--- NOTE | 2022-07-10 09:11 | Diagnostic Imaging Report ---
PROCEDURE: CT head wo r/o stroke. TECHNIQUE: Multiple contiguous axial images were obtained through the brain without the use of intravenous contrast. Auto Exposure Controls were utilized during the CT exam to meet ALARA standards for radiation dose reduction. INDICATION: Left hand weakness supraorbital burning on the left compared with the head CT of 12/02/2021. 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 Remote left frontal deep white matter infarct also stable. No new site of abnormal attenuation. No hemorrhage and no appreciable cerebral edema. No mass or mass effect. No evidence for an elevation in the intracranial pressures. The basilar cisterns are patent. There is no sulcal effacement. Chronic calcification along the right sylvian fissure unchanged . IMPRESSION: Bilateral multifocal areas of remote ischemia stable and chronic with no new abnormality, hemorrhage, edema or acute appearing pathology apparent. Dictated by: Dictated on workstation # [id number]
[2022-07-10 09:12] LABS: PROTHROMBIN TIME PATIENT 13.3 SEC (12.2-14.7)
[2022-07-10 09:21] LABS: ALBUMIN 4.2 GM/DL (3.2-4.5)
[2022-07-10 09:22] LABS: POTASSIUM 3.7 MMOL/L (3.6-5.0)
[2022-07-10 09:23] LABS: CALCIUM 10.2 MG/DL (8.5-10.1)
[2022-07-10 09:24] LABS: TOTAL PROTEIN 7.2 GM/DL (6.4-8.2)
[2022-07-10 09:27] LABS: CREATININE SERUM 1.12 MG/DL (0.60-1.30)
[2022-07-10] MEDS ORDERED: HOLD METFORMIN - RECEIVED CONTRAST 20 ML VIAL IV SCH (09:30)
[2022-07-10] MEDS ORDERED: IOHEXOL 350 MG/ML 100 ML (OMNIPAQUE 350) VIAL IV ONE ×2 (09:30)
[2022-07-10] MEDS ORDERED: NS 100 ML (IVPB) BAG IV ONE (09:30)
--- NOTE | 2022-07-10 10:07 | Diagnostic Imaging Report ---
PROCEDURE: CT angiography of the head and CT angiography of the neck with and without contrast. TECHNIQUE: Contiguous noncontrast images were obtained from the skull base through the vertex. After intravenous contrast administration, helical CT angiography of the neck was performed. Source data was reformatted into 3D MIP projections. Delayed post contrast acquisition was also obtained. Auto Exposure Controls were utilized during the CT exam to meet ALARA standards for radiation dose reduction. INDICATION: Left hand weakness and facial numbness. COMPARISON: CT head from earlier same day and MRI brain of 04/07/2022 FINDINGS: No dissection within the aortic arch. The left common carotid artery is occluded from its origin and is unchanged since CTA neck of 2020. There is no opacification of the left common carotid or internal carotid artery throughout the neck. The right common carotid artery is also completely occluded at its origin. No opacification of the right common carotid or internal carotid artery within the neck. Bilateral vertebral arteries remain patent and codominant. No vertebral artery dissection or high-grade stenosis. The intracranial vasculature supplied by the vertebral basilar system. The basilar artery is widely patent without terminal aneurysm. Large posterior communicating artery is present on the right. The left posterior commuting artery is patent but small. Both of the distal internal carotid arteries in their supraclinoid region opacify normally. There is some retrograde flow into the cavernous divisions of the internal carotid arteries that is similar in appearance to prior CTA chest of 2020. The M1 and M2 divisions of the middle cerebral arteries remain patent without large vessel occlusion. Anterior cerebral arteries are patent. Posterior cerebral arteries also patent centrally. Lung apices are clear. Thyroid is normal. No cervical lymphadenopathy. Paranasal sinuses are clear. Dural venous sinuses are patent. IMPRESSION: 1. Chronic occlusion of the common carotid and internal carotid arteries throughout the entirety of the neck stable in appearance since CTA head and neck of 10/18/2020. 2. Bilateral vertebral arteries are patent without stenosis. 3. Vertebrobasilar system supplies intracranial flow via the posterior communicating arteries. No large vessel occlusion within the middle, anterior posterior cerebral arteries. 4. Patent dural venous sinuses. Dictated by: Dictated on workstation # [id number]
[2022-07-10 11:45] VITALS: BP 153/73
--- NOTE | 2022-07-10 12:38 | History & Physical-Hospitalist ---
History of Present Illness HPI/Chief Complaint Patient is a 67-year-old male well-known to me from multiple previous admissions who presented to the emergency department with new upper extremity weakness. He has had a history of multiple strokes and has known carotid artery stenosis and underwent carotid endarterectomy at a couple of years ago. He currently resides in an assisted living facility and he woke up this morning in his normal state of health with baseline right-sided weakness but then developed left-sided weakness and a left burning pain on his forehead. He described the pain as like someone was putting a cigarette out on his forehead. This is since resolved completely but he has persistent left upper extremity weakness. His NIH was a 1 on arrival to the emergency department. Noncontrast CT head showed no new findings though did confirm his old strokes. CTA was done which revealed a chronic occlusion of the common carotid internal carotids that was unchanged since September 2020. Stroke neurology with [facility] was contacted and recommended admission here and no need for intervention. Patient reports his upper extremity symptoms are relatively unchanged since when he presented. Discussed plan for MRI and therapy in the morning and he is in agreement with this plan. Source: patient Date Seen 07/10/22 Time Seen by a Provider: 12:17 Attending Physician Andre Rodriguez Pa-C PCP Admitting Physician: Soraya Romero MD Attending Physician: Soraya Romero MD Referring Physician Date of Admission July 10, 2022 at 11:35 Home Medications & Allergies Home Medications Reviewed patient Home Medication Reconciliation performed by pharmacy medication reconciliations electroencephalographic technician and/or nursing. Patients Allergies have been reviewed. Allergies Allergies Coded Allergies No Known Drug Allergies (Unverified03/13/18) Past Svmxiyy-Psuxwa-Bamnzt Hx Patient Social History Employed/Student: retired Tobacco Use?: Yes Tobacco type used: Cigarettes Smoking Status: Current Everyday Smoker Use of E-Cig and/or Vaping dev: No Substance use?: No Alcohol Use?: No Pt feels they are or have been: No Immunizations Up To Date Date of Influenza Vaccine: Nov 09, 2020 First/Initial COVID19 Vaccinat: 11/10 Second COVID19 Vaccination Oskar: 12/10 Tetanus Booster (TDap): Less Than 5 Years Date of Pneumonia Vaccine: June 20, 2013 Seasonal Allergies Seasonal Allergies: No Current Status Advance Directives: No Advance Directive Location: Home Primary Language: Stateless Preferred Spoken Language: Stateless Is interpretation needed?: No Implanted or Applied Medical D: Stents Past Medical History Surgeries: Angioplasty, Appendectomy, Cardiac, Coronary Stent, Eye Surgery, Or thopedic, Vascular Surgery Pneumonia, Chronic Bronchitis, COPD, Emphysema Currently Using CPAP: No Currently Using BIPAP: No Coronary Artery Disease, High Cholesterol, Hypertension, Peripheral Vascular Neuropathy, Stroke Sexually Transmitted Disease: No HIV/AIDS: No Benign Prostatic Hyperpl, Renal Failure Gastroesophageal Reflux Chronic Back Pain Loss of Vision: Bilateral Hearing Impairment: Hard of Hearing Skin Did You Recieve Any Treatments: Yes What Type of Treatment Did You: Surgical Intervention Anxiety, Violent Behavior, Depression Recent Skin Changes Blood Disorders: No Adverse Reaction/Blood Tranf: No Hypertension Hyperlipidemia Carotid stenosis CVA Methamphetamine use Cannabis use Tobacco abuse Family Medical History Cancer 19 FATHER (SKIN) 19 MOTHER Cancer of colon 19 MOTHER Kidney disease 19 FATHER (PASSED KIDNEY FAILURE) SOCIAL HISTORY: -ETOH--OCCASIONAL USE, HX OF HEAVY USE -DRUGS--DAILY MARIJUANA USE, ALSO METH USE. DENIES IV DRUG USE -SMOKES 2 PPD PAST SURGICAL HISTORY: -LAST CARDIAC CATH DONE HERE IN 2013--PATENT STENTS -CARDIAC CATHS WITH STENTS X 3 -BILATERAL CAROTID ENDARTERECTOMY -RIGHT CAROTID STENT 01/21/20 AT [facility] -RIGHT EYE SURGERY CHILD -CERVICAL SPINE AND LUMBAR SPINE SURGERIES -LEFT FOOT FRACTURE/ ORIF -SKIN CANCER REMOVAL -APPENDECTOMY -STRESS TEST 01/05/[address] ALVAREZ: 1. Patient tolerated Lexiscan well, and transient episode of hypotension, responded to IV fluid 2. Diaphragmatic attenuation with no significant ischemia or infarction on SPECT images 3. Normal left ventricular size, EF 66% Review of Systems Constitutional: see HPI Physical Exam Physical Exam Vital Signs Vital Signs - First Documented 07/10/22 08:28 Temp 36.8 Pulse 69 Resp 20 B/P (MAP) 131/84 (100) Pulse Ox 96 O2 Delivery Room Air Capillary Refill : Less Than 3 Seconds Height, Weight, BMI Height: 6'1.00" Weight: 195lbs. 0oz. 88.994307xl; 23.44 BMI Method:Actual General Appearance: No Apparent Distress, Chronically ill, Thin Respiratory: Lungs Clear, No Respiratory Distress Cardiovascular: Regular Rate, Rhythm, No Murmur Gastrointestinal: Normal Bowel Sounds, Non Tender, Soft Neurologic/Psychiatric: Alert, Oriented x3; No Aphasia; Motor Weakness (right upper extremity which is known and chronic from previous stroke, new left upper extremity weakness ); No Sensory Deficit Results Results/Procedures Labs Laboratory Tests 07/10/22 08:35 Patient resulted labs reviewed. Assessment/Plan Admission Diagnosis Stroke like symptoms Admission Status: Inpatient Order (span 2 midnights) Reason for Inpatient Admission: see below Assessment and Plan Stroke like symptoms- left hand weakness h/o CVA Carotid stenosis Hyperlipidemia Hypertension h/o Methamphetamine and cannabis abuse Tobacco abuse CT head negative for new findings but showed old strokes and CTA showed chronic occlusion of the common and internal carotid unchanged from 2020 [facility] recommended continuing ASA and Plavix, and permissive hypertension Continue DAPT and Lipitor Obtain MRI tomorrow when available PT/OT Social work consult Advanced care planning Requests to be a full code but doesn't want to live on machines States he would like his daughter to be his decision maker Has never filled out an advance directive or POA- recommended this strongly given his history of recurrent CVA DVT prophylaxis: SORAYA Vann MD July 10, 2022 12:38
[2022-07-10] MEDS ORDERED: ACETAMINOPHEN 325 MG TABLET PO PRN (12:45)
[2022-07-10] MEDS ORDERED: BENZONATATE 100 MG (TESSALON) CAPSULE PO PRN (12:45)
[2022-07-10] MEDS ORDERED: MILK OF MAGNESIA 400 MG/5 ML 30 ML UDC PO PRN ×2 (12:45)
[2022-07-10] MEDS ORDERED: MELATONIN 3 MG TABLET PO PRN (12:45)
[2022-07-10] MEDS ORDERED: ONDANSETRON 4 MG/2 ML (SDV) Z0FRAN IV PRN (12:45)
[2022-07-10] MEDS: ENOXAPARIN 40 MG/0.4 ML (LOVENOX) SYR SC SCH (13:35)
[2022-07-10 13:51] VITALS: BP 131/84
[2022-07-10] MEDS ORDERED: RT-ALBUTEROL SULF 2.5 MG/3 ML PRE-MIX VIAL INH PRN (15:00)
[2022-07-10 15:44] VITALS: BP 124/69
[2022-07-10 20:14] VITALS: BP 180/84
[2022-07-10] MEDS: RT-ALBUTEROL SULF 2.5 MG/3 ML PRE-MIX VIAL INH SCH (21:22)
[2022-07-10 21:28] VITALS: BP 177/84
[2022-07-10] MEDS: ANTACID SUSP 30 ML UDC (MYLANTA) PO PRN (22:08)
[2022-07-10 23:53] VITALS: BP 132/69
[2022-07-11 03:14] VITALS: BP 158/91
[2022-07-11 05:42] LABS: HEMATOCRIT 38 % (40-54); HEMOGLOBIN 12.2 g/dL (13.3-17.7); MEAN CORPUSCULAR HEMOGLOBIN 27 pg (25-34); MEAN CORPUSCULAR HGB CONC 32 g/dL (32-36); MEAN CORPUSCULAR VOLUME 85 fL (80-99); MEAN PLATELET VOLUME 10.5 fL (9.0-12.2); PLATELET COUNT 201 10^3/uL (130-400); WHITE BLOOD COUNT 11.1 10^3/uL (4.3-11.0)
[2022-07-11 06:12] LABS: ALBUMIN 3.8 GM/DL (3.2-4.5); BILIRUBIN,TOTAL 0.6 MG/DL (0.1-1.0); CALCIUM 9.1 MG/DL (8.5-10.1); CREATININE SERUM 0.94 MG/DL (0.60-1.30); TOTAL PROTEIN 6.7 GM/DL (6.4-8.2)
[2022-07-11] MEDS: RT-ALBUTEROL SULF 2.5 MG/3 ML PRE-MIX VIAL INH SCH ×2 (07:27→23:11)
[2022-07-11 08:17] VITALS: BP 160/88
[2022-07-11] MEDS: DOCUSATE SODIUM 100 MG (COLACE) CAP PO SCH (08:57)
--- NOTE | 2022-07-11 08:58 | Physical Therapy Evaluation ---
PT Evaluation-General Medical Diagnosis Admission Date July 10, 2022 at 11:35 Medical Diagnosis: left hand weakness Onset Date: July 10, 2022 Therapy Diagnosis Therapy Diagnosis: debility/weakness Height/Weight Height (Feet): 6 Height (Inches): 1.00 Weight (Pounds): 195 Weight (Ounces): 0 Precautions Precautions/Isolations: Fall Prevention, Standard Precautions Referral Physician: Heather Reason for Referral: Evaluation/Treatment Medical History Pertinent Medical History: Alcoholism, CAD, COPD, CVA (right hemiparesis), HTN, ND, Neuropathy, PVD, Smoking Current History ER secondary to left hand weakness Reviewed History: Yes Social History Home: Assisted Living Prior Prior Level of Function SCALE: Activities may be completed with or without assistive devices. 1-Vigcivnjdm-ffvpsdj completes the activity by him/herself with no assistance from a helper. 5-Set-up or Clean-up Assistance-helper sets up or cleans up; patient completes activity. [employer] assists only prior to or following the activity. 4-Supervision or Touching Assistance-helper provides verbal cues and/or touching/steadying and/or contact guard assistance as patient completes activity. Assistance may be provided throughout the activity or intermittently. 3-Partial/Moderate Assistance-helper does LESS THAN HALF the effort. [employer] lifts, holds or supports trunk or limbs, but provides less than half the effort. 2-Substantial/Maximal Assistance-helper does MORE THAN HALF the effort. [employer] lifts or holds trunk or limbs and provides more than half the effort. 9-Qabdvngqw-wbcnmq does ALL the effort. Patient does none of the effort to complete the activity. Or, the assistance of 2 or more helpers is required for the patient to complete the activity. If activity was not attempted, code reason: 7-Patient Refused. 9-Not Applicable-not attempted and the patient did not perform the activity before the current illness, exacerbation or injury. 10-Not Attempted due to Environmental Limitations-(lack of equipment, weather restraints, etc.). 88-Not Attempted due to Medical Conditions or Safety Concerns. Bed Mobility: 4 Transfers (B,C,W/C): 4 Gait: 3 Stairs: 9 Wheelchair Mobility: 4 Indoor Mobility (Ambulation): Needed Some Help Prior Devices Use: Manual wheelchair, Walker (hemiwalker) patient reports he is in his w/c the majority of the time at [place] PT Evaluation-Current Subjective Patient agrees to PT and gait with hemiwalker. Objective Patient Orientation: Normal For Age ROM/Strength ROM Lower Extremities bilateral LE WFL Strength Lower Extremities right knee flexion/extension 3-/5 / hip flexion 2/5 left LE 4-/5 grossly all planes Integumentary/Posture Bowel Incontinence: No Bladder Incontinence: No Posture WFL Neuromuscular (Tone, Coordination, Reflexes) right hemiparesis/left LE grossly intact Sensory Vision: Functional Hearing: Functional Transfers Lying to Sitting/Side of Bed(Q: 4 Sit to Stand (QC): 4 Chair/Ars-ge-Wlitb Xfer(QC): 4 CGA for safety Gait Mode of Locomotion: Both Anticipated Mode of Locomotion: Both Walk 10 feet (QC): 3 Walk 50 ft with 2 Turns(QC): 88 Walk 150 ft (QC): 88 Distance: 25' Gait Assistive Device: Walker Jorge Comments/Gait Description left UE use for hemiwalker with gait/step to sequence Wheelchair Training Does the Pt Use a Wheelchair?: Yes Type of Wheelchair: Manual Balance Sitting Static: Normal Sitting Dynamic: Normal Standing Static: Fair Standing Dynamic: Fair (Fair-) Assessment/Needs Patient will benefit from skilled PT to address functional strength and mobility to improve current LOF to safely return to AL at maximum LOF. 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 Goals [facility] Goals PT [facility] Goals Time Frame: Jul 23, 2022 Roll Left & Right (QC): 5 Sit to Lying (QC): 5 Lying-Sitting on Side/Bed(QC): 5 Sit to Stand (QC): 4 Chair/Lnu-ka-Odyrz Xfer(QC): 4 Toilet Transfer (QC): 4 Walk 10 feet (QC): 4 Walk 50ft with 2 Turns (QC): 4 (with hemiwalker) PT Plan Problem List Problem List: Activity Tolerance, Functional Strength, Safety, Balance, Gait, Transfer, Bed Mobility Treatment/Plan Treatment Plan: Continue Plan of Care Treatment Plan: Bed Mobility, Education, Functional Activity Dutch, Functional Strength, Gait, Safety, Therapeutic Exercise, Transfers Treatment Duration: Jul 23, 2022 Frequency: 6 times per week Estimated Hrs Per Day: .25 hour per day Patient and/or Family Agrees t: Yes Time Time In: 830 Time Out: 841 DATE: July 11, 2022 Total Billed Treatment Time: 11 [facility] July 11, 2022 08:58
[2022-07-11] MEDS ORDERED: CLOPIDOGREL 75 MG (PLAVIX) TABLET PO SCH (09:00)
[2022-07-11] MEDS ORDERED: ASPIRIN 325 MG (5 GR) TABLET PO SCH (09:00)
--- NOTE | 2022-07-11 09:01 | Diagnostic Imaging Report ---
PROCEDURE: MR imaging of the brain without contrast. TECHNIQUE: Multiplanar, multisequence MR imaging of the brain was performed without contrast. INDICATION: Cough, stroke, left arm and hand weakness. History of prior strokes. COMPARISON: CT angiography head and neck on 07/20/2022. FINDINGS: Image quality degradation due to patient motion artifact. Unable to obtain all sequences incompletely exam due to patient's inability to lay flat without having severe cough. No acute infarct on the diffusion sequence. Encephalomalacia within the right temporal parietal lobe and left frontoparietal lobe. Ventricles and cortical sulci are diffusely prominent. No intracranial mass or fluid collection. The paranasal sinuses and mastoids are clear. The globes and orbits are normal. Loss of flow void within the bilateral intracranial ICAs compatible with known carotid occlusions. IMPRESSION: No acute infarct. Encephalomalacia within the right temporal parietal lobes and left frontal parietal region. Loss of flow void within the bilateral intracranial ICAs compatible with known carotid occlusions. Dictated by: Dictated on workstation # [id number]
--- NOTE | 2022-07-11 09:55 | Progress Note ---
Subjective Date Seen by a Provider: July 11, 2022 Subjective/Events-last exam About the same status Left arm weakness noted Recurrent CVA's Lovenox maintained along with Plavix and ASA Consult Dr Davis Cough is an issue and could not withstand MRI due to cough CXR ordered along with prednisone and Doxy empirically Review of Systems General: Fatigue, Malaise Pulmonary: Dyspnea, Cough Neurological: Weakness, Numbness, Incoordination Objective Exam Last Set of Vital Signs Vital Signs Date Time Temp Pulse Resp B/P (MAP) Pulse Ox O2 Delivery O2 Flow Rate FiO2 07/11/22 08:17 36.3 60 18 160/88 (112) 96 Room Air 07/10/22 13:51 21 Capillary Refill : Less Than 3 Seconds I&O Intake and Output 07/11/22 00:00 Intake Total 700 ml Output Total 425 ml Balance 275 ml Intake Oral 700 ml Output Urine Total 425 ml # Voids 1 Daily Weight Change No General: Alert Lungs: Other Neuro: Other (weakness left arm 2/5) Psych/Mental Status: Mental Status NL, Mood NL Results Lab Laboratory Tests 07/11/22 05:32: White Blood Count 11.1H, Red Blood Count 4.46, Hemoglobin 12.2L, Hematocrit 38L, Mean Corpuscular Volume 85, Mean Corpuscular Hemoglobin 27, Mean Corpuscular Hemoglobin Concent 32, Red Cell Distribution Width 15.3H, Platelet Count 201, Mean Platelet Volume 10.5, Sodium Level 140, Potassium Level 4.0, Chloride Level 105, Carbon Dioxide Level 26, Anion Gap 9, Blood Urea Nitrogen 16, Creatinine 0.94, Estimat Glomerular Filtration Rate 90, BUN/Creatinine Ratio 17, Glucose Level 121H, Calcium Level 9.1, Corrected Calcium 9.3, Total Bilirubin 0.6, Aspartate Amino Transf (AST/SGOT) 14, Alanine Aminotransferase (ALT/SGPT) 14, Alkaline Phosphatase 86, Total Protein 6.7, Albumin 3.8, Triglycerides Level 51, Cholesterol Level 83, LDL Cholesterol Direct 23, VLDL Cholesterol 10, HDL Cholesterol 44 Assessment/Plan Assessment/Plan Assess & Plan/Chief Complaint Assessment: Stroke like symptoms- left hand weakness h/o CVA Carotid stenosis Hyperlipidemia Hypertension h/o Methamphetamine and cannabis abuse Tobacco abuse CT head negative for new findings but showed old strokes and CTA showed chronic occlusion of the common and internal carotid unchanged from 2020 [facility] recommended continuing ASA and Plavix, and permissive hypertension Continue DAPT and Lipitor Unable to tolerate MRI so less than optimal study PT/OT Social work consult Advanced care planning Requests to be a full code but doesn't want to live on machines States he would like his daughter to be his decision maker Has never filled out an advance directive or POA- recommended this strongly given his history of recurrent CVA DVT prophylaxis: Lovenox Plan: PT OT IRF Monitor lungs function PRUDENCE BECK DO July 11, 2022 09:55
--- NOTE | 2022-07-11 10:26 | Occupational Therapy Eval ---
OT Evaluation-General/PLF Medical Diagnosis Admission Date July 10, 2022 at 11:35 Medical Diagnosis: left hand weakness Onset Date: July 10, 2022 Therapy Diagnosis Therapy Diagnosis: decr self care, weakness, decr funct mobility, decr act tolerance Height/Weight Height (Feet): 6 Height (Inches): 1.00 Weight (Pounds): 195 Weight (Ounces): 0 Precautions Precautions/Isolations: Fall Prevention, Standard Precautions Referral Physician: Heather Referral Reason: Evaluation/Treatment Medical History Pertinent Medical History: Alcoholism, CAD, COPD, CVA (right hemiparesis 2019), GERD, HTN, [place], Neuropathy, PVD, Smoking Additional Medical History Stents, carotid endarterectomies. Chronic bronchitis, emphysema. BPH. Renal failaure. Hex C hx. Chronic back and neck pain. NATIVE. Skin cancer. Anxiety, depression, violent behavior. Current History Admitted with L wrist weakness Reviewed History: Yes Social History Home: Assisted Living ([facility]) ADL-Prior Level of Function SCALE: Activities may be completed with or without assistive devices. 2-Vzkwhzdtdj-eeojmkn completes the activity by him/herself with no assistance from a helper. 5-Set-up or Clean-up Assistance-helper sets up or cleans up; patient completes activity. [employer] assists only prior to or following the activity. 4-Supervision or Touching Assistance-helper provides verbal cues and/or touching/steadying and/or contact guard assistance as patient completes activity . Assistance may be provided throughout the activity or intermittently. 3-Partial/Moderate Assistance-helper does LESS THAN HALF the effort. [employer] lifts, holds or supports trunk or limbs, but provides less than half the effort. 2-Substantial/Maximal Assistance-helper does MORE THAN HALF the effort. [employer] lifts or holds trunk or limbs and provides more than half the effort. 7-Mklpdszts-oqznvx does ALL the effort. Patient does none of the effort to complete the activity. Or, the assistance of 2 or more helpers is required for the patient to complete the activity. If activity was not attempted, code reason: 7-Patient Refused. 9-Not Applicable-not attempted and the patient did not perform the activity before the current illness, exacerbation or injury. 10-Not Attempted due to Environmental Limitations-(lack of equipment, weather restraints, etc.). 88-Not Attempted due to Medical Conditions or Safety Concerns. ADL PLOF Comments Pt reported that he was able to take himself to the bathroom at w/c level and managed clothing and toilet hygiene. He dressed himself but sometimes needed help donning his shirt. He reported that he was able to shower himself and fed himself without assistance. He has no teeth and no dentures. Self Care: Needed Some Help Functional Cognition: Unknown OT Current Status Subjective Pt seen in room, up in recliner, agreeable to OT. No pain mentioned. Appearance Alert, cooperative Mental Status/Objective Attachments: Saline Lock, Telemetry Current Dentures/Partials: No Upper Extremity ROM R UE not functional. L UE grossly WFL Upper Extremity Coordination L hand impaired during ADLs Upper Extremity Strength L shoulder 5/5, L elbow 5/5, L wrist 3+/5, L fingers 4/5 ADL-Treatment ADL-Current Pt needed to toilet. Min assist sit to stand but mod assist walking to bathroom with suzanne walker. Pt tended to place walker farther out in front, stating that he needed to do that due to wrist weakness. Some incoordination observed with L UE reaching for walker, grab bars, wipes, pants. Toilet transfer mod assist. Mod assist to pull pants up because they were stuck between him and the toilet and he had difficulty with his balance while standing to pull them up. 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 2=Patient will verbalize/demonstrate understanding of assistive devices/modifications for ADL. 3=Patient will improve strength/tolerance for activity to enable patient to perform ADL's. OT Education/Plan Problem List/Assessment Assessment: Decreased Activ Tolerance, Decreased UE Strength, Dependent Transfers, Impaired Self-Care Skills, Restricted Funct UE ROM Discharge Recommendations Plan Pt would benefit from skilled OT to increase his independence in basic self care to allow him to return home safely. Plan/Recommendations: Continue POC Treatment Plan/Plan of Care Treatment,Training & Education: Yes Patient would benefit from OT for education, treatment and training to promote independence in ADL's, mobility, safety and/or upper extremity function for ADL's. Plan of Care: ADL Retraining, Functional Mobility, UE Funct Exercise/Act, UE Ne uromus Re-Ed/Coord Treatment Duration: July 18, 2022 Frequency: 3 times per week (3-5 times a week) Estimated Hrs Per Day: .5 hour per day Agreement: Yes Rehab Potential: Fair Time Start Time: 09:32 Stop Time: 09:51 DATE: July 11, 2022 Total Time Billed (hr/min): 19 Billed Treatment Time visit, OT eval mod intensity 8 minutes, ADL 11 minutes LISA ISAAC OT July 11, 2022 10:26
[2022-07-11] MEDS ORDERED: guaiFENesin/CODEINE (ROBITUSSIN AC) 10ML UDC PO PRN (10:45)
[2022-07-11] MEDS ORDERED: BACLOFEN 10 MG (LIORESAL) TAB PO PRN (10:45)
[2022-07-11 11:16] VITALS: BP 145/88
[2022-07-11] MEDS: DOXYCYCLINE 100 MG (VIBRAMYCIN) TABLET PO SCH ×2 (11:28→17:37)
[2022-07-11] MEDS: predniSONE 20 MG TAB PO SCH (11:28)
[2022-07-11] MEDS ORDERED: AMLO-250 PO (11:49)
[2022-07-11] MEDS ORDERED: MINE99OI TP (11:50)
[2022-07-11] MEDS ORDERED: ASPI-1238 PO (11:53)
[2022-07-11] MEDS ORDERED: IPRA3AMP31 IH (11:57)
[2022-07-11] MEDS ORDERED: MELA5TAB14 PO (11:58)
[2022-07-11] MEDS ORDERED: POLY17PO6 PO (12:00)
[2022-07-11] MEDS ORDERED: DIPH50LI PO (12:04)
[2022-07-11] MEDS ORDERED: NITR0.4T42 SL (12:05)
[2022-07-11] MEDS ORDERED: FLUT1BLS9 IH (12:05)
[2022-07-11] MEDS ORDERED: CYAN100088 PO (12:08)
[2022-07-11] MEDS ORDERED: ACET-2267 PO (12:09)
--- NOTE | 2022-07-11 13:00 | ST Dysphagia Evaluation ---
Speech Evaluation-General Medical Diagnosis Left Hand Weakness Onset Date: July 10, 2022 Therapy Diagnosis Therapy Diagnosis: Intact Oropharyngeal Swallow Precautions Precautions/Isolations: Standard Precautions Referral Referring Physician: Dr. Romero Reason for Referral: Evaluation/Treatment Medical History Pertinent Medical History: Alcoholism, CAD, COPD, CVA (right hemiparesis 2019), GERD, HTN, [place], Neuropathy, PVD, Smoking Reviewed History: Yes Speech PLF/Current-Dysphagia Prior Level of Function The patient reported he consumes a regular consistency diet with thin liquids at home. The patient denied s/s of suspected aspiration with current P.O. intake or concerns regarding his oropharyngeal swallowing function. Subjective The patient was seated upright in bed, awake and alert, upon entrance to his room by the clinician. The patient greeted the clinician appropriately and was agreeable to participation in the clinical bedside swallowing evaluation. Cognitive Status Patient Orientation: Person, Place, Situation Oral Motor Skills Dentition: Edentalous Current Food Consistancy: Regular, Thin Liquids Ability to Follow Directions: Good Oral Expression Ability: No Impairment Voice Voice Phonatory-Based Quality: Normal Voice Pitch: Normal Voice Loudness: Normal Face Facial Symmetry: Symmetrical Oral-Facial Assessment Oral-Facial Dentition: Normal Labial Seal Description: Normal Smile: Normal Lingual Protrusion: Normal Lingual ROM: Normal Lingual Strength: Normal Volitional Dry Swallow: Yes Dysphagia Evaluation Consistencies Presented: Regular, Thin Liquid, Pureed Regardless of edentulous state, the patient is able to masticate the cookie appropriately, form a cohesive bolus and transfer the bolus posterior in the oral cavity. Oral impairments to the swallowing function were not present. Laryngeal elevation was present to palpation. Pharyngeal impairments to the swallowing function were not present. The patient was provided thin liquids via straw, puree, and solid consistencies. Overt s/s of suspected aspiration were not demonstrated with any consistency tested. Dietary Recommendations: Regular Liquid Recommendations: Thin Recommendations: - Regular consistency diet with thin liquids, as tolerated. - Fully upright and alert for all P.O. intake. - Feeding assistance and meal set-up, as necessary. - Small bites and sips, only. - Monitor for s/s of suspected aspiration with P.O. intake. If demonstrated, contact speech pathology. - Skilled speech pathology is not warranted at this time. The results and recommendations were provided to the patient immediately following completion of the study. Speech-Plan Treatment Plan Speech Therapy Treatment Plan: Discontinue ST Treatment Duration: July 11, 2022 Frequency: 1 time per week Estimated Hrs Per Day: .25 hour per day Rehab Potential: Fair Pt/Family Agrees to Plan: Yes Safety Risks/Education Teaching Recipient: Patient Teaching Methods: Discussion Response to Teaching: Verbalize Understanding Education Topics Provided: Results, Recommendations, Plan of Care, Safe Swallowing Strategies Time Speech Therapy Time In: 11:40 Speech Therapy Time Out: 12:00 DATE: July 11, 2022 Total Billed Time: 20 Billed Treatment Time 1DOMINGA DYST LOY, ELIZABETH ST July 11, 2022 13:00
[2022-07-11] MEDS: ENOXAPARIN 40 MG/0.4 ML (LOVENOX) SYR SC SCH (13:27)
--- NOTE | 2022-07-11 14:19 | Diagnostic Imaging Report ---
Indication: Pneumonia. Compared with exam 01/26/2022. Findings: Some scarring or mild subsegmental atelectasis, infrahilar right lung base medially appears less pronounced than on prior. No consolidating infiltrate or adverse change. No findings to suggest pneumonia. There is no failure, effusion or pneumothorax. Impression: No acute-appearing abnormality. Dictated by: Dictated on workstation # [id number]
[2022-07-11] MEDS ORDERED: ACETAMINOPHEN 500 MG TAB (TYLENOL) PO PRN (14:30)
[2022-07-11] MEDS ORDERED: RT-ALBUTEROL/IPRATROPIUM 3 ML (DUONEB) VIAL IH PRN (14:30)
[2022-07-11] MEDS ORDERED: FLUTICASONE NASAL SPRAY (FLONASE) 16 GM BTL NS PRN (14:30)
[2022-07-11] MEDS ORDERED: polyethylene glycoL POWDER 17 GM (MIRALAX) PACK PO PRN (14:30)
[2022-07-11] MEDS ORDERED: NITROGLYCERIN 0.4 MG SL TABS BTL 25'S SL PRN (14:30)
--- NOTE | 2022-07-11 15:11 | Consultation-Cardiology ---
HPI-Cardiology Cardiology Consultation Date of Consultation 07/11/22 Date of Admission Time Seen by Provider: 12:17 Indication: CVA HPI 67-year-old gentleman with history of multiple admissions. Came in with increasing weakness of his right upper extremity. Patient had history of multiple stroke and had carotid endarterectomy done at . He is currently in a assisted living facility. Reported right arm weakness., Did not qualify for thrombolytics. He has chronic total occlusion of the common carotid internal artery. Did not change since September 2020. I was called for evaluation. He is laying down in bed, feeling better. No new complaints still having some residual weakness. Home Medications & Allergies Allergies: Coded Allergies: No Known Drug Allergies (Unverified , 03/13/18) Home Medication List Reviewed: Yes VCY-Nvopfl-Rmjiht Hx Patient Social History Marital Status: single Employed/Student: retired Drug of Choice: DAILY MARIJUANA USE, METH USE, DENIES IV USE Smoking Status: Current Everyday Smoker Type Used: Cigarettes 2nd Hand Smoke Exposure: Yes Recent Hopitalizations: No Have you traveled recently?: No Alcohol Use?: No Immunizations Up To Date Tetanus Booster (TDap): Less than 5yrs Date of Pneumonia Vaccine: June 20, 2013 Date of Influenza Vaccine: Nov 09, 2020 Past Medical History Discussed below Family Medical History Significant Family History: No Pertinent Family Hx Family History: Cancer 19 FATHER (SKIN) 19 MOTHER Cancer of colon 19 MOTHER Kidney disease 19 FATHER (PASSED KIDNEY FAILURE) Review of Systems-General Review of Systems Constitutional: see HPI EENTM: see HPI, no symptoms reported Respiratory: no symptoms reported, see HPI Cardiovascular: see HPI Gastrointestinal: no symptoms reported, see HPI Genitourinary: no symptoms reported, see HPI Musculoskeletal: no symptoms reported, see HPI Skin: no symptoms reported, see HPI Psychiatric/Neurological: No Symptoms Reported, See HPI Reviewed Test Results Reviewed Test Results Lab Laboratory Tests Test 07/11/22 05:32 Range/Units White Blood Count 11.1 H 4.3-11.0 10^3/uL Red Blood Count 4.46 4.30-5.52 10^6/uL Hemoglobin 12.2 L 13.3-17.7 g/dL Hematocrit 38 L 40-54 % Mean Corpuscular Volume 85 80-99 fL Mean Corpuscular Hemoglobin 27 25-34 pg Mean Corpuscular Hemoglobin Concent 32 32-36 g/dL Red Cell Distribution Width 15.3 H 10.0-14.5 % Platelet Count 201 130-400 10^3/uL Mean Platelet Volume 10.5 9.0-12.2 fL Sodium Level 140 135-145 MMOL/L Potassium Level 4.0 3.6-5.0 MMOL/L Chloride Level 105 98-107 MMOL/L Carbon Dioxide Level 26 21-32 MMOL/L Anion Gap 9 5-14 MMOL/L Blood Urea Nitrogen 16 7-18 MG/DL Creatinine 0.94 0.60-1.30 MG/DL Estimat Glomerular Filtration Rate 90 BUN/Creatinine Ratio 17 Glucose Level 121 H 70-105 MG/DL Calcium Level 9.1 8.5-10.1 MG/DL Corrected Calcium 9.3 8.5-10.1 MG/DL Total Bilirubin 0.6 0.1-1.0 MG/DL Aspartate Amino Transf (AST/SGOT) 14 5-34 U/L Alanine Aminotransferase (ALT/SGPT) 14 0-55 U/L Alkaline Phosphatase 86 40-136 U/L Total Protein 6.7 6.4-8.2 GM/DL Albumin 3.8 3.2-4.5 GM/DL Triglycerides Level 51 <150 MG/DL Cholesterol Level 83 < 200 MG/DL LDL Cholesterol Direct 23 1-129 MG/DL VLDL Cholesterol 10 5-40 MG/DL HDL Cholesterol 44 40-60 MG/DL Physical Exam Physical Exam Vital Signs Vital Signs - First Documented 07/10/22 07/10/22 08:28 13:51 Temp 36.8 Pulse 69 Resp 20 B/P (MAP) 131/84 (100) Pulse Ox 96 O2 Delivery Room Air FiO2 21 Capillary Refill : Less Than 3 Seconds Height, Weight, BMI Height: 6'1.00" Weight: 195lbs. 0oz. [id number]; 23.44 BMI Method:Actual General Appearance: No Apparent Distress, Chronically ill, Thin Eyes: Bilateral Eye Normal Inspection, Bilateral Eye PERRL, Bilateral Eye EOMI HEENT: PERRL/EOMI, Normal ENT Inspection, Pharynx Normal Neck: Normal Inspection, Non Tender, Supple Respiratory: Lungs Clear, No Respiratory Distress Cardiovascular: Regular Rate, Rhythm, No Murmur Gastrointestinal: Normal Bowel Sounds, Non Tender, Soft Back: Normal Inspection, No Vertebral Tenderness Extremity: Normal Capillary Refill, Normal Inspection, Normal Range of Motion, Non Tender Neurologic/Psychiatric: Alert, Oriented x3; No Aphasia; Motor Weakness (right upper extremity which is known and chronic from previous stroke, new left upper extremity weakness ); No Sensory Deficit Skin: Normal Color, Warm/Dry A/P-Cardiology Admission Diagnosis CVA Coronary artery disease Hypertension Hyperlipidemia Assessment/Plan CVA/TIA History of multiple CVA Still having left upper extremity weakness Work-up and management per primary care physician We will evaluate 2D echo Coronary artery disease, history of multiple interventions in the past, last intervention was done in 2013 No recent cardiac work-up. Hypertension, continue to monitor blood pressure Hyperlipidemia, monitor lipids History of carotid stenosis. Continue to monitor History of tobaccoism, educated on smoking cessation History of methamphetamine and cannabis use. DEMETRIO ALVAREZ MD July 11, 2022 15:11
[2022-07-11 15:35] VITALS: BP 160/104
[2022-07-11] MEDS: ANTACID SUSP 30 ML UDC (MYLANTA) PO PRN (18:25)
[2022-07-11 19:25] VITALS: BP 120/83
[2022-07-11] MEDS: AQUAPHOR OINTMENT 1.75 OZ TUBE TP SCH (21:00)
[2022-07-11] MEDS ORDERED: MONTELUKAST 10 MG (SINGULAIR) TAB PO SCH (21:00)
[2022-07-11] MEDS ORDERED: MELATONIN 10 MG TABLET PO SCH (21:00)
[2022-07-11] MEDS: buPROPion SR 150 MG (WELLBUTRIN SR) TAB PO SCH (21:01)
[2022-07-11] MEDS: VITAMIN D3 25 MCG (1,000 UNITS) TABLET PO SCH (21:01)
[2022-07-11] MEDS: GABAPENTIN 300 MG (NEURONTIN) CAP PO SCH (21:01)
[2022-07-11] MEDS: RT--FLUTICASONE/SALMETEROL 113-14 (AIRDUO RespiCLICK) IH SCH (23:11)
[2022-07-12] VITALS: BP 157/87
[2022-07-12 03:20] VITALS: BP 129/59
--- NOTE | 2022-07-12 04:58 | Progress Note ---
Subjective Date Seen by a Provider: July 12, 2022 Time Seen by a Provider: 09:00 Objective Exam Last Set of Vital Signs Vital Signs Date Time Temp Pulse Resp B/P (MAP) Pulse Ox O2 Delivery O2 Flow Rate FiO2 07/12/22 03:20 36.2 63 18 129/59 (82) 95 Room Air 07/10/22 13:51 21 Capillary Refill : Less Than 3 Seconds I&O Intake and Output 07/12/22 00:00 Intake Total 1335 ml Output Total 1625 ml Balance -290 ml Intake Oral 1335 ml Output Urine Total 1625 ml # Voids 2 # Bowel Movements 2 Results Lab Laboratory Tests 07/11/22 05:32: White Blood Count 11.1H, Red Blood Count 4.46, Hemoglobin 12.2L, Hematocrit 38L, Mean Corpuscular Volume 85, Mean Corpuscular Hemoglobin 27, Mean Corpuscular Hemoglobin Concent 32, Red Cell Distribution Width 15.3H, Platelet Count 201, Mean Platelet Volume 10.5, Sodium Level 140, Potassium Level 4.0, Chloride Level 105, Carbon Dioxide Level 26, Anion Gap 9, Blood Urea Nitrogen 16, Creatinine 0.94, Estimat Glomerular Filtration Rate 90, BUN/Creatinine Ratio 17, Glucose Level 121H, Calcium Level 9.1, Corrected Calcium 9.3, Total Bilirubin 0.6, Aspartate Amino Transf (AST/SGOT) 14, Alanine Aminotransferase (ALT/SGPT) 14, Alkaline Phosphatase 86, Total Protein 6.7, Albumin 3.8, Triglycerides Level 51, Cholesterol Level 83, LDL Cholesterol Direct 23, VLDL Cholesterol 10, HDL Cholesterol 44 Assessment/Plan Assessment/Plan Assess & Plan/Chief Complaint Assessment: Stroke like symptoms- left hand weakness h/o CVA Carotid stenosis Hyperlipidemia Hypertension h/o Methamphetamine and cannabis abuse Tobacco abuse CT head negative for new findings but showed old strokes and CTA showed chronic occlusion of the common and internal carotid unchanged from 2020 [facility] recommended continuing ASA and Plavix, and permissive hypertension Continue DAPT and Lipitor Unable to tolerate MRI so less than optimal study PT/OT Social work consult Advanced care planning Requests to be a full code but doesn't want to live on machines States he would like his daughter to be his decision maker Has never filled out an advance directive or POA- recommended this strongly given his history of recurrent CVA DVT prophylaxis: Lovenox Plan: PT OT IRF Monitor lungs function PRUDENCE BECK DO July 12, 2022 04:58
[2022-07-12 05:43] LABS: BASOPHILS # (AUTO) 0.1 10^3/uL (0.0-0.1); BASOPHILS % (AUTO) 0 % (0-10); EOSINOPHILS % (AUTO) 0 % (0-10); HEMATOCRIT 40 % (40-54); HEMOGLOBIN 12.8 g/dL (13.3-17.7); LYMPHOCYTES # (AUTO) 2.1 10^3/uL (1.0-4.0); LYMPHOCYTES % (AUTO) 17 % (12-44); MEAN CORPUSCULAR HEMOGLOBIN 28 pg (25-34); MEAN CORPUSCULAR HGB CONC 32 g/dL (32-36); MEAN CORPUSCULAR VOLUME 85 fL (80-99); MEAN PLATELET VOLUME 10.5 fL (9.0-12.2); MONOCYTES # (AUTO) 1.1 10^3/uL (0.0-1.0); MONOCYTES % (AUTO) 9 % (0-12); NEUTROPHILS # (AUTO) 9.2 10^3/uL (1.8-7.8); NEUTROPHILS % (AUTO) 73 % (42-75); PLATELET COUNT 220 10^3/uL (130-400); WHITE BLOOD COUNT 12.6 10^3/uL (4.3-11.0)
[2022-07-12] MEDS: DOXYCYCLINE 100 MG (VIBRAMYCIN) TABLET PO SCH (06:03)
[2022-07-12] MEDS: predniSONE 20 MG TAB PO SCH (06:04)
[2022-07-12 06:14] LABS: ALBUMIN 3.7 GM/DL (3.2-4.5); BILIRUBIN,TOTAL 0.6 MG/DL (0.1-1.0); CALCIUM 9.1 MG/DL (8.5-10.1); CREATININE SERUM 0.91 MG/DL (0.60-1.30); POTASSIUM 3.9 MMOL/L (3.6-5.0); TOTAL PROTEIN 6.6 GM/DL (6.4-8.2)
[2022-07-12] MEDS ORDERED: diphenhydrAMINE 12.5 MG/5 ML UDC (BENADRYL) PO PRN (07:00)
[2022-07-12 07:23] VITALS: BP 122/76
[2022-07-12] MEDS: RT-ALBUTEROL SULF 2.5 MG/3 ML PRE-MIX VIAL INH SCH (07:45)
[2022-07-12] MEDS: RT--FLUTICASONE/SALMETEROL 113-14 (AIRDUO RespiCLICK) IH SCH (07:45)
--- NOTE | 2022-07-12 08:12 | Cardiology Progress Note ---
Subjective Date Seen by Provider: July 12, 2022 Time Seen by Provider: 08:10 Subjective/Events-last exam Patient was seen at bedside, sitting comfortably Still having weakness in his left upper extremity, requesting to go home Review of Systems General: No Chills, No Night Sweats, No Fatigue, No Malaise, No Appetite, No Other HEENT: No Head Aches, No Visual Changes, No Eye Pain, No Ear Pain, No Dysphasia, No Sinus Congestion, No Post Nasal Drip, No Sore Throat, No Other Pulmonary: No Dyspnea, No Cough, No Pleuritic Chest Pain, No Other Cardiovascular: No: Chest Pain, Palpitations, Orthopnea, Paroxysmal Noc. Dyspnea, Edema, Lt Headedness, Other Objective-Cardiology Exam Last Set of Vital Signs Vital Signs 07/10/22 07/12/22 07/12/22 13:51 07:23 07:38 Temp 36.7 Pulse 58 Resp 18 B/P (MAP) 122/76 (91) FiO2 21 I&O Intake and Output 07/12/22 00:00 Intake Total 1335 ml Output Total 1625 ml Balance -290 ml Intake Oral 1335 ml Output Urine Total 1625 ml # Voids 2 # Bowel Movements 2 General: Alert HEENT: Atraumatic, PERRLA Neck: Supple, No JVD, No Thyromegaly Lungs: Other Heart: Regular Rate, Normal S1, Normal S2, No Murmurs Abdomen: Normal Bowel Sounds, Soft, No Tenderness, No Hepatosplenomegaly, No Masses Extremities: No Clubbing, No Cyanosis, No Edema, Normal Pulses, No Tenderness/Swelling Skin: No Rashes, No Breakdown, No Significant Lesion Neuro: Normal Speech, Other (weakness left arm 2/5) Psych/Mental Status: Mental Status NL, Mood NL Results Lab Laboratory Tests 07/12/22 05:03 07/12/22 05:30 A/P-Cardiology Admission Diagnosis CVA Coronary artery disease Hypertension Hyperlipidemia Assessment/Plan Subacute CVA History of multiple CVA Still having left upper extremity weakness Work-up and management per primary care physician 2D echo showed normal LV size, mild LVH, ejection fraction 60 to 65%, PA pr essure 25 to 30 mmHg Coronary artery disease, history of multiple interventions in the past, last i ntervention was done in 2013 No recent cardiac work-up. Planning to evaluate stress test as an outpatient Hypertension, controlled on current medication Continue to monitor Hyperlipidemia, started on Lipitor 80 mg daily Monitor lipids History of carotid stenosis. Continue to monitor History of tobaccoism, educated on smoking cessation History of methamphetamine and cannabis use. DEMETRIO ALVAREZ MD July 12, 2022 08:12
[2022-07-12] MEDS: DOCUSATE SODIUM 100 MG (COLACE) CAP PO SCH (08:59)
[2022-07-12] MEDS ORDERED: lisINopril 20 MG (PRINIVIL) TABLET PO SCH (09:00)
[2022-07-12] MEDS ORDERED: amLODIPine 5 MG (NORVASC) TAB PO SCH (09:00)
[2022-07-12] MEDS ORDERED: ASPIRIN E.C. 81 MG (ECOTRIN) TAB PO SCH (09:00)
[2022-07-12] MEDS ORDERED: CYANOCOBALAMIN 1,000 MCG (VITAMIN B-12) TABLET PO SCH (09:00)
[2022-07-12] MEDS ORDERED: CLOPIDOGREL 75 MG (PLAVIX) TABLET PO SCH (09:00)
[2022-07-12] MEDS: buPROPion SR 150 MG (WELLBUTRIN SR) TAB PO SCH (09:01)
[2022-07-12] MEDS: GABAPENTIN 300 MG (NEURONTIN) CAP PO SCH ×2 (09:01→13:37)
[2022-07-12] MEDS: VITAMIN D3 25 MCG (1,000 UNITS) TABLET PO SCH (09:02)
[2022-07-12] MEDS ORDERED: BENZONATATE 100 MG (TESSALON) CAPSULE PO PRN (09:15)
[2022-07-12] MEDS ORDERED: BENZ100C18 PO (09:35)
[2022-07-12] MEDS ORDERED: MONT-40 PO (09:35)
[2022-07-12] MEDS ORDERED: DOXY100T2 PO (09:35)
[2022-07-12] MEDS ORDERED: GFCD10B PO (09:35)
[2022-07-12] MEDS ORDERED: PRED10TA22 PO (09:35)
--- NOTE | 2022-07-12 09:39 | Discharge Summary ---
Diagnosis/Chief Complaint Date of Admission July 10, 2022 at 11:35 Date of Discharge Discharge Date: July 12, 2022 Discharge Diagnosis Assessment: Stroke like symptoms- left hand weakness h/o CVA Carotid stenosis Hyperlipidemia Hypertension h/o Methamphetamine and cannabis abuse Tobacco abuse CT head negative for new findings but showed old strokes and CTA showed chronic occlusion of the common and internal carotid unchanged from 2020 [facility] recommended continuing ASA and Plavix, and permissive hypertension Continue DAPT and Lipitor Unable to tolerate MRI so less than optimal study PT/OT Social work consult Advanced care planning Requests to be a full code but doesn't want to live on machines States he would like his daughter to be his decision maker Has never filled out an advance directive or POA- recommended this strongly given his history of recurrent CVA DVT prophylaxis: Lovenox Plan: PT OT IRF Monitor lungs function Discharge Summary Discharge Physical Examination Allergies: Coded Allergies: No Known Drug Allergies (Unverified , 03/13/18) Vitals & I&Os Vital Signs Date Time Temp Pulse Resp B/P (MAP) Pulse Ox O2 Delivery O2 Flow Rate FiO2 07/12/22 15:30 36.4 73 18 104/60 93 Room Air 07/10/22 13:51 21 General Appearance: Alert, Oriented X3, Cooperative Respiratory: Clear to Auscultation Cardiovascular: Regular Rate Psych/Mental Status: Mental Status NL Hospital Course Was the Problem List Reviewed?: Yes Uneventful course after he was admitted for suspicion of CVA with recurrent CVA from severe CVD and carotid disease and h/o meth and THC use. He did have an exacerbation of COPD with bronchitis during stay. Cardiology consulted and no other intervention required and MRI was not an ideal study due to severe coughing during the exam. He was deemed stable for DC back to [place] with . Labs (last 24 hrs) Laboratory Tests 07/10/22 08:35: White Blood Count 9.9, Red Blood Count 4.79, Hemoglobin 13.0L, Hematocrit 42, Mean Corpuscular Volume 87, Mean Corpuscular Hemoglobin 27, Mean Corpuscular Hemoglobin Concent 31L, Red Cell Distribution Width 15.3H, Platelet Count 224, Mean Platelet Volume 10.7, Immature Granulocyte % (Auto) 0, Neutrophils (%) (Auto) 69, Lymphocytes (%) (Auto) 19, Monocytes (%) (Auto) 8, Eosinophils (%) (Auto) 3, Basophils (%) (Auto) 1, Neutrophils # (Auto) 6.8, Lymphocytes # (Auto) 1.8, Monocytes # (Auto) 0.8, Eosinophils # (Auto) 0.3, Basophils # (Auto) 0.1, Immature Granulocyte # (Auto) 0.0, Prothrombin Time 13.3, INR Comment 1.0, Activated Partial Thromboplast Time 28, Sodium Level 144, Potassium Level 3.7, Chloride Level 104, Carbon Dioxide Level 27, Anion Gap 13, Blood Urea Nitrogen 16, Creatinine 1.12, Estimat Glomerular Filtration Rate 73, BUN/Creatinine Ratio 14, Glucose Level 133H, Calcium Level 10.2H, Corrected Calcium 10.0, Total Bilirubin 1.0, Aspartate Amino Transf (AST/SGOT) 15, Alanine Aminotransferase (ALT/SGPT) 17, Alkaline Phosphatase 93, Total Protein 7.2, Albumin 4.2 07/10/22 08:40: Glucometer 135H 07/11/22 05:32: White Blood Count 11.1H, Red Blood Count 4.46, Hemoglobin 12.2L, Hematocrit 38L, Mean Corpuscular Volume 85, Mean Corpuscular Hemoglobin 27, Mean Corpuscular Hemoglobin Concent 32, Red Cell Distribution Width 15.3H, Platelet Count 201, Mean Platelet Volume 10.5, Sodium Level 140, Potassium Level 4.0, Chloride Level 105, Carbon Dioxide Level 26, Anion Gap 9, Blood Urea Nitrogen 16, Creatinine 0.94, Estimat Glomerular Filtration Rate 90, BUN/Creatinine Ratio 17, Glucose Level 121H, Calcium Level 9.1, Corrected Calcium 9.3, Total Bilirubin 0.6, Aspartate Amino Transf (AST/SGOT) 14, Alanine Aminotransferase (ALT/SGPT) 14, Alkaline Phosphatase 86, Total Protein 6.7, Albumin 3.8, Triglycerides Level 51, Cholesterol Level 83, LDL Cholesterol Direct 23, VLDL Cholesterol 10, HDL Ch olesterol 44 07/12/22 05:03: Sodium Level 141, Potassium Level 3.9, Chloride Level 106, Carbon Dioxide Level 27, Anion Gap 8, Blood Urea Nitrogen 17, Creatinine 0.91, Estimat Glomerular Filtration Rate 94, BUN/Creatinine Ratio 19, Glucose Level 98, Calcium Level 9.1, Corrected Calcium 9.3, Total Bilirubin 0.6, Aspartate Amino Transf (AST/SGOT) 13, Alanine Aminotransferase (ALT/SGPT) 16, Alkaline Phosphatase 82, Total Protein 6.6, Albumin 3.7 07/12/22 05:30: White Blood Count 12.6H, Red Blood Count 4.66, Hemoglobin 12.8L, Hematocrit 40, Mean Corpuscular Volume 85, Mean Corpuscular Hemoglobin 28, Mean Corpuscular Hemoglobin Concent 32, Red Cell Distribution Width 15.3H, Platelet Count 220, Mean Platelet Volume 10.5, Immature Granulocyte % (Auto) 0, Neutrophils (%) (Auto) 73, Lymphocytes (%) (Auto) 17, Monocytes (%) (Auto) 9, Eosinophils (%) (Auto) 0, Basophils (%) (Auto) 0, Neutrophils # (Auto) 9.2H, Lymphocytes # (Auto) 2.1, Monocytes # (Auto) 1.1H, Eosinophils # (Auto) 0.0, Basophils # (Auto) 0.1, Immature Granulocyte # (Auto) 0.1 Pending Labs Laboratory Tests 07/10/22 08:35: White Blood Count 9.9, Red Blood Count 4.79, Hemoglobin 13.0, Hematocrit 42, Mean Corpuscular Volume 87, Mean Corpuscular Hemoglobin 27, Mean Corpuscular Hemoglobin Concent 31, Red Cell Distribution Width 15.3, Platelet Count 224, Mean Platelet Volume 10.7, Immature Granulocyte % (Auto) 0, Neutrophils (%) (Auto) 69, Lymphocytes (%) (Auto) 19, Monocytes (%) (Auto) 8, Eosinophils (%) (Auto) 3, Basophils (%) (Auto) 1, Neutrophils # (Auto) 6.8, Lymphocytes # (Auto) 1.8, Monocytes # (Auto) 0.8, Eosinophils # (Auto) 0.3, Basophils # (Auto) 0.1, Immature Granulocyte # (Auto) 0.0, Prothrombin Time 13.3, INR Comment 1.0, Activated Partial Thromboplast Time 28, Sodium Level 144, Potassium Level 3.7, Chloride Level 104, Carbon Dioxide Level 27, Anion Gap 13, Blood Urea Nitrogen 16, Creatinine 1.12, Estimat Glomerular Filtration Rate 73, BUN/Creatinine Ratio 14, Glucose Level 133, Calcium Level 10.2, Corrected Calcium 10.0, Total Bilirubin 1.0, Aspartate Amino Transf (AST/SGOT) 15, Alanine Aminotransferase (ALT/SGPT) 17, Alkaline Phosphatase 93, Total Protein 7.2, Albumin 4.2 07/10/22 08:40: Glucometer 135 07/11/22 05:32: White Blood Count 11.1, Red Blood Count 4.46, Hemoglobin 12.2, Hematocrit 38, Mean Corpuscular Volume 85, Mean Corpuscular Hemoglobin 27, Mean Corpuscular Hemoglobin Concent 32, Red Cell Distribution Width 15.3, Platelet Count 201, Mean Platelet Volume 10.5, Sodium Level 140, Potassium Level 4.0, Chloride Level 105, Carbon Dioxide Level 26, Anion Gap 9, Blood Urea Nitrogen 16, Creatinine 0.94, Estimat Glomerular Filtration Rate 90, BUN/Creatinine Ratio 17, Glucose Level 121, Calcium Level 9.1, Corrected Calcium 9.3, Total Bilirubin 0.6, Aspartate Amino Transf (AST/SGOT) 14, Alanine Aminotransferase (ALT/SGPT) 14, Alkaline Phosphatase 86, Total Protein 6.7, Albumin 3.8, Triglycerides Level 51, Cholesterol Level 83, LDL Cholesterol Direct 23, VLDL Cholesterol 10, HDL Cholesterol 44 07/12/22 05:03: Sodium Level 141, Potassium Level 3.9, Chloride Level 106, Carbon Dioxide Level 27, Anion Gap 8, Blood Urea Nitrogen 17, Creatinine 0.91, Estimat Glomerular Filtration Rate 94, BUN/Creatinine Ratio 19, Glucose Level 98, Calcium Level 9.1, Corrected Calcium 9.3, Total Bilirubin 0.6, Aspartate Amino Transf (AST/SGOT) 13, Alanine Aminotransferase (ALT/SGPT) 16, Alkaline Phosphatase 82, Total Protein 6.6, Albumin 3.7 07/12/22 05:30: White Blood Count 12.6, Red Blood Count 4.66, Hemoglobin 12.8, Hematocrit 40, Mean Corpuscular Volume 85, Mean Corpuscular Hemoglobin 28, Mean Corpuscular Hemoglobin Concent 32, Red Cell Distribution Width 15.3, Platelet Count 220, Mean Platelet Volume 10.5, Immature Granulocyte % (Auto) 0, Neutrophils (%) (Auto) 73, Lymphocytes (%) (Auto) 17, Monocytes (%) (Auto) 9, Eosinophils (%) (Auto) 0, Basophils (%) (Auto) 0, Neutrophils # (Auto) 9.2, Lymphocytes # (Auto) 2.1, Monocytes # (Auto) 1.1, Eosinophils # (Auto) 0.0, Basophils # (Auto) 0.1, Immature Granulocyte # (Auto) 0.1 Discharge Home Medications: Active Scripts Active Prednisone 10 Mg Tab.ds.pk 10 Mg PO DAILY Take 4 tabs(40mg)daily,decrease by 1 tab(10MG)daily. Montelukast Sodium 10 Mg Tablet 10 Mg PO HS Robitussin Ac (Codeine) Syrup (Guaifenesin/Codeine Phosphate) 10 Ml Syrp 10 Ml PO Q4H PRN Tessalon Perles (Benzonatate) 100 Mg Capsule 100 Mg PO TID PRN Doxycycline Hyclate 100 Mg Tablet 100 Mg PO BID@17 Reported Tylenol Extra Strength (Acetaminophen) 500 Mg Tablet 1,000 Mg PO TID PRN TAKES 2 (500MG) TABS B-12 (Cyanocobalamin (Vitamin B-12)) 1,000 Mcg Tablet 1,000 Mcg PO DAILY Wixela 250-50 Inhub (Fluticasone Propion/Salmeterol) 250 Mcg-50 Mcg/Dose Blst.w.dev 1 Each IH BID Nitroglycerin 0.4 Mg Tab.subl 0.4 Mg SL UD PRN Zzzquil (Diphenhydramine HCl) 50 Mg/30 Ml Liquid 30 Ml PO HS PRN Miralax (Polyethylene Glycol 3350) 17 Gram Powd.pack 17 Gm PO DAILY PRN Melatonin 5 Mg Tablet 5 Mg PO HS Iprat-Albut 0.5-3(2.5) mg/3 ml (Ipratropium/Albuterol Sulfate) 0.5 Mg-3 Mg (2.5 Mg Base)/3 Ml Ampul.neb 3 Ml IH Q6H PRN Aspirin EC (Aspirin) 81 Mg Tablet.dr 81 Mg PO DAILY Aquaphor (Petrolatum,White) 41 % Oint...g. 1 Applic TP 1999 Amlodipine Besylate 5 Mg Tablet 5 Mg PO DAILY Bupropion HCl Sr (Bupropion HCl) 150 Mg Tablet.er 150 Mg PO BID Lisinopril 40 Mg Tablet 20 Mg PO DAILY TAKES (40MG) TABLET Fluticasone Propionate 50 Mcg/Actuation Morrice.susp 1 Sprays NSEACH BID PRN Vitamin D3 (Cholecalciferol (Vitamin D3)) 50 Mcg (2000 Unit) Tablet 50 Mcg PO BID Neurontin (Gabapentin) 300 Mg Capsule 300 Mg PO TID Atorvastatin Calcium 80 Mg Tablet 80 Mg PO HS Plavix (Clopidogrel Bisulfate) 75 Mg Tablet 75 Mg PO DAILY Baclofen 10 Mg Tablet 5 Mg PO Q8H PRN TAKES 1/2 OF (10MG) TAB Instructions to patient/family Please see electronic discharge instructions given to patient. PRUDENCE BECK DO July 12, 2022 09:39
--- NOTE | 2022-07-12 09:39 | D/C HH Face to Face Order ---
D/C Face to Face Orders Reconcile Patient Problems Problems Reviewed?: Yes Instructions for Patient Via [facility] Thames, Patient Instructions/FollowUp: Dr Pereira/Justine Oliva as scheduled Physician to follow Patient: Randall Discharge Diet for Home: Cardiac Diet Patient Problems: CVA Patient Data-Allergies,Ht & Wt Patient Allergies: Coded Allergies: No Known Drug Allergies (Unverified , 03/13/18) Height (Feet): 6 Height (Inches): 1.00 Weight (Pounds): 195 Weight (Ounces): 0 Home Health Need/Face to Face Date of Face to Face: July 12, 2022 Clinical Findings: Generalized weakness and fatigue, Muscle weakness I have seen Pt [id number]: Yes Discharged To: Home Diagnosis/Conditions: CVA Patient is Homebound due to: Peyman fall risk due to instabilty, Muscle weakness Homebound Status Due to the above stated illness, injury or surgical procedure (medical condition or diagnosis) and associated clinical findings, the patient is homebound because of his/her inability to leave home except with aid of a supportive device and/or person AND leaving the home requires a considerable and taxing effort or is medically contraindicated. Pt req the following assistanc: Walker Home Health Nursing Orders Home Health Services Order: Regulatory Compliance Manager-Evaluate & Treat, Physical Therapy-Evaluate & Treat Home Health Infusion Therapy Line Start Date: July 10, 2022 Certify Stmt I certify that this patient is under my care and that I, a nurse practitioner or a physician; a executive assistant working with me, had a face to face encounter that - meets the physician face to face encounter requirements with this patient as dated. PRUDENCE PEREIRA DO July 12, 2022 09:39
--- NOTE | 2022-07-12 10:26 | Physical Therapy Daily Note ---
PT Daily Note-Current Subjective Patient agrees to PT. Pain Section J - Health Conditions 1. Rarely or not at all 2. Occasionally 3. Frequently 4. Almost constantly 8. Unable to answer Pain Effect on Sleep: 1 Pain Interference with Therapy: 1 Pain Interference w/Day-to-Day: 1 Mental Status Patient Orientation: Normal For Age Transfers SCALE: Activities may be completed with or without assistive devices. 1-Ttahalfbcy-qokeboo completes the activity by him/herself with no assistance from a helper. 5-Set-up or Clean-up Assistance-helper sets up or cleans up; patient completes activity. [place] assists only prior to or following the activity. 4-Supervision or Touching Assistance-helper provides verbal cues and/or touching/steadying and/or contact guard assistance as patient completes activity. Assistance may be provided throughout the activity or intermittently. 3-Partial/Moderate Assistance-helper does LESS THAN HALF the effort. Mims lifts, holds or supports trunk or limbs, but provides less than half the effort. 2-Substantial/Maximal Assistance-helper does MORE THAN HALF the effort. Mims lifts or holds trunk or limbs and provides more than half the effort. 4-Gvbfkujls-quqaeo does ALL the effort. Patient does none of the effort to complete the activity. Or, the assistance of 2 or more helpers is required for the patient to complete the activity. If activity was not attempted, code reason: 7-Patient Refused. 9-Not Applicable-not attempted and the patient did not perform the activity before the current illness, exacerbation or injury. 10-Not Attempted due to Environmental Limitations-(lack of equipment, weather restraints, etc.). 88-Not Attempted due to Medical Conditions or Safety Concerns. Lying to Sitting/Side of Bed(Q: 6 Sit to Stand (QC): 4 Chair/Cnl-xg-Jgrzu Xfer(QC): 4 Gait Training Distance: 150' Walk 10 feet (QC): 4 Walk 50 ft with 2 Turns(QC): 4 Walk 150 ft (QC): 4 Gait Assistive Device: Walker Jorge step to gait sequence Assessment Patient much improved on this date with increase in functional distance with gait training. Noted 2 episodes of right LE lag during gait with PT assist to correct. PT Usp Goals Broadcast Director Operations Goals PT Broadcast Director Operations Goals Time Frame: Jul 23, 2022 Roll Left & Right (QC): 5 Sit to Lying (QC): 5 Lying-Sitting on Side/Bed(QC): 5 Sit to Stand (QC): 4 Chair/Dcc-hn-Oslmu Xfer(QC): 4 Toilet Transfer (QC): 4 Walk 10 feet (QC): 4 Walk 50ft with 2 Turns (QC): 4 (with hemiwalker) PT Plan Treatment/Plan Treatment Plan: Continue Plan of Care Treatment Plan: Bed Mobility, Education, Functional Activity Dutch, Functional Strength, Gait, Safety, Therapeutic Exercise, Transfers Treatment Duration: Jul 23, 2022 Frequency: 6 times per week Estimated Hrs Per Day: .25 hour per day Patient and/or Family Agrees t: Yes Time Time In: 938 Time Out: 954 DATE: July 12, 2022 Total Billed Treatment Time: 16 Total Billed Treatment 1 visit GT 16 min RADHA SALINAS PT July 12, 2022 10:26
[2022-07-12 11:13] VITALS: BP_SYST 110; BP_SYST 95; BP_DIAS 62
--- NOTE | 2022-07-12 11:59 | Occupational Ther Daily Note ---
OT Current Status-Daily Note Subjective PATIENT AGREEABLE TO OT ADL-Treatment COMPLETED BREAKFAST, RETURNS TO RECLINER, ALL NEEDS MET Therapy Code Descriptions/Definitions Functional [place] Measure: 0=Not Assessed/NA 4=Minimal Assistance 1=Total Assistance 5=Supervision or Setup 2=Maximal Assistance 6=Modified [place] 3=Moderate Assistance 7=Complete IndependenceSCALE: Activities may be completed with or without assistive devices. 6-Ojiqqolgfb-ucpewtm completes the activity by him/herself with no assistance from a helper. 5-Set-up or Clean-up Assistance-helper sets up or cleans up; patient completes activity. [place] assists only prior to or following the activity. 4-Supervision or Touching Assistance-helper provides verbal cues and/or touching/steadying and/or contact guard assistance as patient completes activity. Assistance may be provided throughout the activity or intermittently. 3-Partial/Moderate Assistance-helper does LESS THAN HALF the effort. [place] lifts, holds or supports trunk or limbs, but provides less than half the effort. 2-Substantial/Maximal Assistance-helper does MORE THAN HALF the effort. [place] lifts or holds trunk or limbs and provides more than half the effort. 4-Zbjbtpimg-thfmxh does ALL the effort. Patient does none of the effort to complete the activity. Or, the assistance of 2 or more helpers is required for the patient to complete the activity. If activity was not attempted, code reason: 7-Patient Refused. 9-Not Applicable-not attempted and the patient did not perform the activity before the current illness, exacerbation or injury. 10-Not Attempted due to Environmental Limitations-(lack of equipment, weather restraints, etc.). 88-Not Attempted due to Medical Conditions or Safety Concerns. Eating (QC): 5 Oral Hygiene (QC): 5 Shower/Bathe Self (QC): 7 Upper Body Dressing (QC): 4 Lower Body Dressing (QC): 4 On/Off Footwear: 4 Toileting Hygiene (QC): 4 Toilet Transfer (QC): 4 Education OT Patient Education: Correct positioning, Modified ADL techniques, Progress toward Goal/Update tx plan, Purpose of tx/functional activities, Reviewed precautions, Safety issues, Transfer techniques, Use of adapted equipment Teaching Recipient: Patient Teaching Methods: Demonstration Response to Teaching: Verbalize Understanding, Return Demonstration OT Alf Goals Physician Representative Goals Time Frame: July 18, 2022 Eating (QC): 6 Toileting Hygiene (QC): 5 Shower/Bathe Self (QC): 5 Upper Body Dressing (QC): 5 Lower Body Dressing (QC): 5 On/Off Footwear (QC): 5 Additional Goals: 1-Demonstrate ADL Tasks, 2-Verbalize Understanding, 3- ImproveStrength/Dutch 1=Demonstrate adherence to instructed precautions during ADL tasks. 2=Patient will verbalize/demonstrate understanding of assistive devices/modifications for ADL. 3=Patient will improve strength/tolerance for activity to enable patient to perform ADL's. OT Education/Plan Problem List/Assessment Assessment: Decreased Activ Tolerance, Decreased UE Strength, Impaired Self- Care Skills Discharge Recommendations Plan/Recommendations: Continue POC Treatment Plan/Plan of Care Treatment,Training & Education: Yes Patient would benefit from OT for education, treatment and training to promote independence in ADL's, mobility, safety and/or upper extremity function for ADL's. Plan of Care: ADL Retraining, Functional Mobility, UE Funct Exercise/Act, UE Neuromus Re-Ed/Coord Treatment Duration: July 18, 2022 Frequency: 3 times per week (3-5 times a week) Estimated Hrs Per Day: .5 hour per day Agreement: Yes Rehab Potential: Fair ALL NEEDS MET Time Start Time: 09:37 Stop Time: 09:55 DATE: July 12, 2022 Total Time Billed (hr/min): 18 Billed Treatment Time ADL 18 MIN JACOB PAVON OT July 12, 2022 11:59
[2022-07-12] MEDS: ENOXAPARIN 40 MG/0.4 ML (LOVENOX) SYR SC SCH (13:37)
[2022-07-12] MEDS: AQUAPHOR OINTMENT 1.75 OZ TUBE TP SCH (13:43)
[2022-07-12 13:53] VITALS: BP 104/60
[2022-07-12 15:30] VITALS: BP 104/60
== END 2022-07-12 15:30 | disposition home health service (06) | DRG 65 ==
LOC: EDUNIT# 08:22 → ER 08:23 → 4TH 11:35 → OBSVTOIN 11:35 → 4TH 15:06
PROVIDERS: ADMIT Family Medicine; ATTEND Internal Medicine
DX: I63.9 Cerebral infarction, unspecified (principal); I69.351 Hemiplegia and hemiparesis following cerebral infarction affecting right dominant side; G83.24 Monoplegia of upper limb affecting left nondominant side; I65.23 Occlusion and stenosis of bilateral carotid arteries; Z99.3 Dependence on wheelchair; R29.701 NIHSS score 1; J43.9 Emphysema, unspecified; I25.10 Atherosclerotic heart disease of native coronary artery without angina pectoris; E78.00 Pure hypercholesterolemia, unspecified; I10 Essential (primary) hypertension; G62.9 Polyneuropathy, unspecified; N40.0 Benign prostatic hyperplasia without lower urinary tract symptoms; K21.9 Gastro-esophageal reflux disease without esophagitis; H54.3 Unqualified visual loss, both eyes; H91.90 Unspecified hearing loss, unspecified ear; F41.9 Anxiety disorder, unspecified; F32.A Depression, unspecified; F15.10 Other stimulant abuse, uncomplicated; F12.10 Cannabis abuse, uncomplicated; F17.210 Nicotine dependence, cigarettes, uncomplicated
CPT/HCPCS: 36415; 70450; 70496; 70498; 70551; 71045; 80053; 80061; 82947; 85025; 85027; 85610; 85730; 93005; 93041; 93306; 94640; 94760

== ENCOUNTER 2022-09-01 08:50 | Emergency (ER) | payer MEDICAID, MEDICARE, OTHER ==
[~2022-09-01] VITALS: Ht 188 cm; Wt 81.6 kg
[~2022-09-01 08:50] MED LIST changes: +ACET-2267 PO; +ASPI-1238 PO; +BENZ100C18 PO; +CYAN100088 PO; +DIPH50LI PO; +DOXY100T2 PO; +FLUT1BLS9 IH; +GFCD10B PO; +IPRA3AMP31 IH; +MELA5TAB14 PO; +MINE99OI TP
--- NOTE | 2022-09-01 09:58 | ED Fall/Injury ---
General Chief Complaint: Trauma-Non Activation Stated Complaint: FALL Nursing Triage Note: PT TO ROOM 07 VIA [facility] WITH C/O SLIDING OUT OF HIS CHAIR THIS MORNING. PT REPORTS HEADACHE AT HOME. PT DENIES PAIN UPON ARRIVAL. PT DENIES ANY OTHER C/O. Source: patient History of Present Illness Date Seen by Provider: Sep 01, 2022 Time Seen by Provider: 09:10 Initial Comments Patient is a 67yo male who [facility] and slid out of the chair forward onto the floor this morning. He states he landed on his knees and states that he did not his his head. He landed on his knees. He did have a mild headache earlier but denies any complaints at this time. He was noted to have abrasions to his bilateral knees. denies neck pain, chest pain, arm pain and actually denies pain to the knees as well. He is not short of breath. Police is to send a patient for evaluation after a fall. UTD on immunizations/tetanus. Occurred: just prior to arrival Severity: mild Injuries/Pain Location: lower extremity Context: slipped Loss of Consciousness: no loss of consciousness Associated Symptoms (Fall): Denies Symptoms Allergies and Home Medications Allergies Coded Allergies: No Known Drug Allergies (Unverified , 03/13/18) Patient Home Medication List Home Medication List Reviewed: Yes Acetaminophen (Tylenol Extra Strength) 500 Mg Tablet, 1,000 MG PO TID PRN for PAIN-MILD (1-4), (Reported) Entered as Reported by: BLESSING LENTZ on 07/11/22 1209 Amlodipine Besylate (Amlodipine Besylate) 5 Mg Tablet, 5 MG PO DAILY, (Reported) Entered as Reported by: BLESSING LENTZ on 07/11/22 1149 Aspirin (Aspirin EC) 81 Mg Tablet.dr, 81 MG PO DAILY, (Reported) Entered as Reported by: BLESSING LENTZ on 07/11/22 1153 Atorvastatin Calcium (Atorvastatin Calcium) 80 Mg Tablet, 80 MG PO HS, (Reported) Entered as Reported by: RENNY STEPHENS on 04/28/20 1607 Baclofen (Baclofen) 10 Mg Tablet, 5 MG PO Q8H PRN for MUSCLE SPASMS, (Reported) Entered as Reported by: LEYLA ESPINOZA on 03/13/18 1354 Benzonatate (Tessalon Perles) 100 Mg Capsule, 100 MG PO TID PRN for COUGH--1ST LINE Prescribed by: PRUDENCE BECK on 07/12/22 0935 Bupropion HCl (Bupropion HCl Sr) 150 Mg Tablet.er, 150 MG PO BID, (Reported) Entered as Reported by: RENNY STEPHENS on 01/05/21 0928 Cholecalciferol (Vitamin D3) (Vitamin D3) 50 Mcg (2000 Unit) Tablet, 50 MCG PO BID, (Reported) Entered as Reported by: ANNA KOVACS on 10/19/20 1328 Clopidogrel Bisulfate (Plavix) 75 Mg Tablet, 75 MG PO DAILY, (Reported) Entered as Reported by: LEYLA ESPINOZA on 03/13/18 1354 Cyanocobalamin (Vitamin B-12) (B-12) 1,000 Mcg Tablet, 1,000 MCG PO DAILY, (Reported) Entered as Reported by: BLESSING LENTZ on 07/11/22 1208 Diphenhydramine HCl (Zzzquil) 50 Mg/30 Ml Liquid, 30 ML PO HS PRN for SLEEP, (Reported) Entered as Reported by: BLESSING LENTZ on 07/11/22 1204 Doxycycline Hyclate (Doxycycline Hyclate) 100 Mg Tablet, 100 MG PO BID@07,17 Prescribed by: PRUDENCE BECK on 07/12/22 0935 Fluticasone Propion/Salmeterol (Wixela 250-50 Inhub) 250 Mcg-50 Mcg/Dose Blst.w.dev, 1 EACH IH BID, (Reported) Entered as Reported by: BLESSING LENTZ on 07/11/22 1205 Fluticasone Propionate (Fluticasone Propionate) 50 Mcg/Actuation [place].susp, 1 SPRAYS NSEACH BID PRN for ALLERGIES, (Reported) Entered as Reported by: ANNA KOVACS on 10/19/20 1328 Gabapentin (Neurontin) 300 Mg Capsule, 300 MG PO TID, (Reported) Entered as Reported by: ANNA KOVACS on 10/19/20 1328 Guaifenesin/Codeine (Robitussin Ac (Codeine) Syrup) 10 Ml Syrp, 10 ML PO Q4H PRN for COUGH--2ND LINE Prescribed by: PRUDENCE BECK on 07/12/22 0936 Ipratropium/Albuterol Sulfate (Iprat-Albut 0.5-3(2.5) mg/3 ml) 0.5 Mg-3 Mg (2.5 Mg Base)/3 Ml Ampul.neb, 3 ML IH Q6H PRN for SHORTNESS OF BREATH, (Reported) Entered as Reported by: BLESSING LENTZ on 07/11/22 1157 Lisinopril (Lisinopril) 40 Mg Tablet, 20 MG PO DAILY, (Reported) Entered as Reported by: ANNA KOVACS on 10/19/20 1328 Melatonin (Melatonin) 5 Mg Tablet, 5 MG PO HS, (Reported) Entered as Reported by: BLESSING LENTZ on 07/11/22 1158 Montelukast Sodium (Montelukast Sodium) 10 Mg Tablet, 10 MG PO HS Prescribed by: PRUDENCE BECK on 07/12/22 0935 Nitroglycerin (Nitroglycerin) 0.4 Mg Tab.subl, 0.4 MG SL UD PRN for CHEST PAIN, (Reported) Entered as Reported by: BLESSING LENTZ on 07/11/22 1205 Petrolatum,White (Aquaphor) 41 % Oint...g., 1 APPLIC TP 2000, (Reported) Entered as Reported by: BLESSING LENTZ on 07/11/22 1150 Polyethylene Glycol 3350 (Miralax) 17 Gram Powd.pack, 17 GM PO DAILY PRN for CONSTIPATION-2ND LINE, (Reported) Entered as Reported by: BLESSING LENTZ on 07/11/22 1200 Prednisone (Prednisone) 10 Mg Tab.ds.pk, 10 MG PO DAILY Prescribed by: PRUDENCE BECK on 07/12/22 0935 Review of Systems Review of Systems Constitutional: see HPI Eyes: No Symptoms Reported Ears, Nose, Mouth, Throat: no symptoms reported Respiratory: no symptoms reported Cardiovascular: no symptoms reported Gastrointestinal: no symptoms reported Musculoskeletal: no symptoms reported Skin: other (abrasions) Past Awyfetc-Bscnya-Unfivz Hx Patient Social History Tobacco Use?: Yes Tobacco type used: Cigarettes Smoking Status: Current Everyday Smoker Smokeless Tobacco Frequency: Never a User Use of E-Cig and/or Vaping dev: No Use of E-Cig and/or Vaping Rajeev: Never a User Substance use?: Yes Substance type: Marijuana Substance frequency: Couple times a week Alcohol Use?: No Pt feels they are or have been: No Immunizations Up To Date Tetanus Booster (TDap): Less than 5yrs First/Initial COVID19 Vaccinat: 11/10 Second COVID19 Vaccination Oskar: 12/10 Seasonal Allergies Seasonal Allergies: No Past Medical History Surgery/Hospitalization HX: cardiac stents, spinal sx, appy, bilateral carotid endartectomy, HX OF STROKE WITH RT SIDE WEAKNESS, UNABLE TO WALK-USES A W/C Surgeries: Yes (EYES;C+L SPINE;CARDIAC CATHS-STENTS X3;BILAT CAROTID ENDART;FOOT;SKIN CA) Angioplasty, Appendectomy, Cardiac, Coronary Stent, Eye Surgery, Orthopedic, Vascular Surgery Respiratory: Yes Pneumonia, Chronic Bronchitis, COPD, Emphysema Currently Using CPAP: No Currently Using BIPAP: No Cardiac: Yes (CARDIAC CATHS-STENTS X3; BILAT CAROTID ENDARTERECTOMIES;R CAROTID STENT) Coronary Artery Disease, High Cholesterol, Hypertension, Peripheral Vascular Neurological: Yes (stroke Jan 20, 2020-RIGHT SIDE PARALYSI, R sided stent placed; TIA 03/23/20) Neuropathy, Stroke Reproductive Disorders: No Sexually Transmitted Disease: No HIV/AIDS: No Genitourinary: Yes Benign Prostatic Hyperpl, Renal Failure Gastrointestinal: Yes (HEPATITIS C--S/P TREATMENT) Gastroesophageal Reflux Musculoskeletal: Yes (CHRONIC NECK AND BACK PAIN-S/P C-SPINE + L-SPINE SURGERY; L FOOT FX/ORIF) Chronic Back Pain Endocrine: No HEENT: Yes (READING GLASSES;EYE SURGERY CHILD) Loss of Vision: Bilateral Hearing Impairment: Hard of Hearing Cancer: Yes Skin Did You Recieve Any Treatments: Yes What Type of Treatment Did You: Surgical Intervention Psychosocial: Yes (SUBSTANCE ABUSE) Anxiety, Violent Behavior, Depression Integumentary: Yes (SKIN CANCER-GETS BLISTERS) Recent Skin Changes Blood Disorders: No Adverse Reaction/Blood Tranf: No Family Medical History Cancer 19 FATHER (SKIN) 19 MOTHER Cancer of colon 19 MOTHER Kidney disease 19 FATHER (PASSED KIDNEY FAILURE) No Pertinent Family Hx SOCIAL HISTORY: -ETOH--OCCASIONAL USE, HX OF HEAVY USE -DRUGS--DAILY MARIJUANA USE, ALSO METH USE. DENIES IV DRUG USE -SMOKES 2 PPD PAST SURGICAL HISTORY: -LAST CARDIAC CATH DONE HERE IN 2013--PATENT STENTS -CARDIAC CATHS WITH STENTS X 3 -BILATERAL CAROTID ENDARTERECTOMY -RIGHT CAROTID STENT 12/01/20 AT -RIGHT EYE SURGERY CHILD -CERVICAL SPINE AND LUMBAR SPINE SURGERIES -LEFT FOOT FRACTURE/ ORIF -SKIN CANCER REMOVAL -APPENDECTOMY -STRESS TEST 01/05/[address] ALVAREZ: 1. Patient tolerated Lexiscan well, and transient episode of hypotension, responded to IV fluid 2. Diaphragmatic attenuation with no significant ischemia or infarction on SPECT images 3. Normal left ventricular size, EF 66% Physical Exam Vital Signs Vital Signs - First Documented 09/01/22 08:50 Temp 36.1 Pulse 60 Resp 15 B/P (MAP) 178/92 (120) Pulse Ox 96 O2 Delivery Room Air Capillary Refill : Less Than 3 Seconds Height, Weight, BMI Height: 6'1.00" Weight: 195lbs. 0oz. [id number]; 23.00 BMI Method:Actual General Appearance: WD/WN, no apparent distress HEENT: PERRL/EOMI Neck: non-tender, normal inspection Cardiovascular: regular rate, rhythm Respiratory: lungs clear, normal breath sounds, no respiratory distress, no accessory muscle use Gastrointestinal: normal bowel sounds, non tender, soft Extremities: normal inspection, other (abrasions bilateral knees) Neurologic/Psychiatric: alert, normal mood/affect, oriented x 3, other (s/p CVA affecting right side with decreased ROM/strength) Skin: warm/dry [place] Coma Score Best Eye Response: (4) Open Spontaneously Best Verbal Response: (5) Oriented Best Motor Response: (6) Obeys Commands Progress/Results/Core Measures Results/Orders Vital Signs/I&O 09/01/22 09/01/22 09/01/22 08:50 08:50 10:45 Temp 36.1 36.1 36.5 Pulse 60 60 70 Resp 15 15 16 B/P (MAP) 178/92 (120) 178/92 (120) 126/84 Pulse Ox 96 95 O2 Delivery Room Air Room Air Room Air Blood Pressure Mean: 120 Progress Progress Note : Time: 09:57 Progress Note Patient seen and evaluated, fall from wheelchair. Evaluation today includes physical exam. Pertinent exam findings abrasions to the bilateral knees. Patient denies hitting his head, loss of consciousness or neck pain. Consideration for CT however history and physical do not support the need. Patient treated with wound cleansing and dry gauze bandages. He is completely asymptomatic and without complaint. Vital signs are stable. No concerns. Supportive care recommended. [facility] care. Departure Impression Primary Impression: Fall from wheelchair Qualified Codes: W05.0XXA - Fall from non-moving wheelchair, initial encounter Additional Impression: skin abrasions of bilateral knees Disposition: HOME, SELF-CARE Condition: Stable Departure-Patient Inst. Decision time for Depature: 09:56 Referrals: PAVAN TYSON PA-C (PCP/Family) Primary Care Physician Patient Instructions: Skin Abrasions (DC) Add. Discharge Instructions: Monitor the skin abrasions over the next several days for signs of infection. Wash the areas twice daily and apply triple antibiotic ointment for 2 days. Keep a dry bandage over the knees for 2 to 3 days. Return to the emergency department for any new, concerning or emergent complaints. PAWEL DASH MD Sep 01, 2022 09:58
[2022-09-01 10:45] VITALS: BP 126/84
== END 2022-09-01 10:45 | disposition home or self-care (01) ==
LOC: EDUNIT# 08:50 → ER 08:52
DX: S80.211A Abrasion, right knee, initial encounter (principal); S80.212A Abrasion, left knee, initial encounter; F17.210 Nicotine dependence, cigarettes, uncomplicated; Z28.311 Partially vaccinated for COVID-19; W05.0XXA Fall from non-moving wheelchair, initial encounter; Y92.129 Unspecified place in nursing home as the place of occurrence of the external cause
CPT/HCPCS: 99283

== ENCOUNTER 2022-09-22 13:24 | Emergency (ER) | payer MEDICAID, OTHER ==
[~2022-09-22] VITALS: Ht 184 cm; Wt 100.0 kg
[2022-09-22] MEDS ORDERED: NS IV 1000 ML 1,000 ML IV STA (13:35)
--- NOTE | 2022-09-22 13:41 | ED General ---
General Chief Complaint: Altered Mental Status Stated Complaint: ALTERED MENTAL STATUS | HX OF STROKE Source of Information: Patient Exam Limitations: Other (Clinical condition) History of Present Illness Date Seen by Provider: Sep 22, 2022 Time Seen by Provider: 13:30 Initial Comments 67-year-old male with history of stroke several years ago with residual right- sided deficits and confined to a power wheelchair presents to the emergency department for altered mentation. [facility] at 1030 this morning which be his last known well. Apparently a bystander called police. He is homeless and has been out in the heat. He was trying to light a cigarette at the time of police arrival. On arrival he will nod yes and no intermittently to questions but will not verbalize any answers to me. He did verbalize clarification of his last name prior to my entering the room. He nods no to having any pain. He does tell me that he has been out in the heat by nodding yes. All other systems reviewed and negative except documented per HPI. Voice recognition software was used to help create this chart Allergies and Home Medications Allergies Coded Allergies: No Known Drug Allergies (Unverified , 03/13/18) Patient Home Medication List Home Medication List Reviewed: Yes Acetaminophen (Tylenol Extra Strength) 500 Mg Tablet, 1,000 MG PO TID PRN for PA IN-MILD (1-4), (Reported) Entered as Reported by: BLESSING LENTZ on 07/11/22 1209 Amlodipine Besylate (Amlodipine Besylate) 5 Mg Tablet, 5 MG PO DAILY, (Reported) Entered as Reported by: BLESSING LENTZ on 07/11/22 1149 Aspirin (Aspirin EC) 81 Mg Tablet.dr, 81 MG PO DAILY, (Reported) Entered as Reported by: BLESSING LENTZ on 07/11/22 1153 Atorvastatin Calcium (Atorvastatin Calcium) 80 Mg Tablet, 80 MG PO HS, (Reported) Entered as Reported by: RENNY STEPHENS on 04/28/20 1607 Baclofen (Baclofen) 10 Mg Tablet, 5 MG PO Q8H PRN for MUSCLE SPASMS, (Reported) Entered as Reported by: LEYLA ESPINOZA on 03/13/18 1354 Benzonatate (Tessalon Perles) 100 Mg Capsule, 100 MG PO TID PRN for COUGH--1ST LINE Prescribed by: PRUDENCE BECK on 07/12/22 0935 Bupropion HCl (Bupropion HCl Sr) 150 Mg Tablet.er, 150 MG PO BID, (Reported) Entered as Reported by: RENNY STEPHENS on 01/05/21 0928 Cholecalciferol (Vitamin D3) (Vitamin D3) 50 Mcg (2000 Unit) Tablet, 50 MCG PO BID, (Reported) Entered as Reported by: ANNA KOVACS on 10/19/20 1328 Clopidogrel Bisulfate (Plavix) 75 Mg Tablet, 75 MG PO DAILY, (Reported) Entered as Reported by: LEYLA ESPINOZA on 03/13/18 1354 Cyanocobalamin (Vitamin B-12) (B-12) 1,000 Mcg Tablet, 1,000 MCG PO DAILY, (Reported) Entered as Reported by: BLESSING LENTZ on 07/11/22 1208 Diphenhydramine HCl (Zzzquil) 50 Mg/30 Ml Liquid, 30 ML PO HS PRN for SLEEP, (Reported) Entered as Reported by: BLESSING LENTZ on 07/11/22 1204 Doxycycline Hyclate (Doxycycline Hyclate) 100 Mg Tablet, 100 MG PO BID@,17 Prescribed by: PRUDENCE BECK on 07/12/22 0935 Fluticasone Propion/Salmeterol (Wixela 250-50 Inhub) 250 Mcg-50 Mcg/Dose Blst.w.dev, 1 EACH IH BID, (Reported) Entered as Reported by: BLESSING LENTZ on 07/11/22 1205 Fluticasone Propionate (Fluticasone Propionate) 50 Mcg/Actuation [place].susp, 1 SPRAYS NSEACH BID PRN for ALLERGIES, (Reported) Entered as Reported by: ANNA KOVACS on 10/19/20 1328 Gabapentin (Neurontin) 300 Mg Capsule, 300 MG PO TID, (Reported) Entered as Reported by: ANNA KOVACS on 10/19/20 1328 Guaifenesin/Codeine (Robitussin Ac (Codeine) Syrup) 10 Ml Syrp, 10 ML PO Q4H PRN for COUGH--2ND LINE Prescribed by: PRUDENCE BECK on 07/12/22 0936 Ipratropium/Albuterol Sulfate (Iprat-Albut 0.5-3(2.5) mg/3 ml) 0.5 Mg-3 Mg (2.5 Mg Base)/3 Ml Ampul.neb, 3 ML IH Q6H PRN for SHORTNESS OF BREATH, (Reported) Entered as Reported by: BLESSING LENTZ on 07/11/22 1157 Lisinopril (Lisinopril) 40 Mg Tablet, 20 MG PO DAILY, (Reported) Entered as Reported by: ANNA KOVACS on 10/19/20 1328 Melatonin (Melatonin) 5 Mg Tablet, 5 MG PO HS, (Reported) Entered as Reported by: BLESSING LENTZ on 07/11/22 1158 Montelukast Sodium (Montelukast Sodium) 10 Mg Tablet, 10 MG PO HS Prescribed by: PRUDENCE BECK on 07/12/22 0935 Nitroglycerin (Nitroglycerin) 0.4 Mg Tab.subl, 0.4 MG SL UD PRN for CHEST PAIN, (Reported) Entered as Reported by: BLESSING LENTZ on 07/11/22 1205 Petrolatum,White (Aquaphor) 41 % Oint...g., 1 APPLIC TP 1999, (Reported) Entered as Reported by: BLESSING LENTZ on 07/11/22 1150 Polyethylene Glycol 3350 (Miralax) 17 Gram Powd.pack, 17 GM PO DAILY PRN for CONSTIPATION-2ND LINE, (Reported) Entered as Reported by: BLESSING LENTZ on 07/11/22 1200 Prednisone (Prednisone) 10 Mg Tab.ds.pk, 10 MG PO DAILY Prescribed by: PRUDENCE BECK on 07/12/22 0935 Review of Systems Review of Systems Constitutional: see HPI Past Rgmyevl-Wxnhry-Slpbws Hx Patient Social History Tobacco Use?: Yes Use of E-Cig and/or Vaping dev: No Substance use?: No Alcohol Use?: No Immunizations Up To Date Tetanus Booster (TDap): Less than 5yrs First/Initial COVID19 Vaccinat: 11/10 Second COVID19 Vaccination Oskar: 12/10 Seasonal Allergies Seasonal Allergies: No Past Medical History Surgery/Hospitalization HX: cardiac stents, spinal sx, appy, bilateral carotid endartectomy, HX OF STROKE WITH RT SIDE WEAKNESS, UNABLE TO WALK-USES A W/C Surgeries: Yes (EYES;C+L SPINE;CARDIAC CATHS-STENTS X3;BILAT CAROTID ENDART;FOOT;SKIN CA) Angioplasty, Appendectomy, Cardiac, Coronary Stent, Eye Surgery, Orthopedic, Vascular Surgery Respiratory: Yes Pneumonia, Chronic Bronchitis, COPD, Emphysema Currently Using CPAP: No Currently Using BIPAP: No Cardiac: Yes (CARDIAC CATHS-STENTS X3; BILAT CAROTID ENDARTERECTOMIES;R CAROTID STENT) Coronary Artery Disease, High Cholesterol, Hypertension, Peripheral Vascular Neurological: Yes (stroke Jan 20, 2020-RIGHT SIDE PARALYSI, R sided stent placed; TIA 03/23/20) Neuropathy, Stroke Reproductive Disorders: No Sexually Transmitted Disease: No HIV/AIDS: No Genitourinary: Yes Benign Prostatic Hyperpl, Renal Failure Gastrointestinal: Yes (HEPATITIS C--S/P TREATMENT) Gastroesophageal Reflux Musculoskeletal: Yes (CHRONIC NECK AND BACK PAIN-S/P C-SPINE + L-SPINE SURGERY; L FOOT FX/ORIF) Chronic Back Pain Endocrine: No HEENT: Yes (READING GLASSES;EYE SURGERY CHILD) Loss of Vision: Bilateral Hearing Impairment: Hard of Hearing Cancer: Yes Skin Did You Recieve Any Treatments: Yes What Type of Treatment Did You: Surgical Intervention Psychosocial: Yes (SUBSTANCE ABUSE) Anxiety, Violent Behavior, Depression Integumentary: Yes (SKIN CANCER-GETS BLISTERS) Recent Skin Changes Blood Disorders: No Adverse Reaction/Blood Tranf: No Family Medical History Cancer 19 FATHER (SKIN) 19 MOTHER Cancer of colon 19 MOTHER Kidney disease 19 FATHER (PASSED KIDNEY FAILURE) No Pertinent Family Hx SOCIAL HISTORY: -ETOH--OCCASIONAL USE, HX OF HEAVY USE -DRUGS--DAILY MARIJUANA USE, ALSO METH USE. DENIES IV DRUG USE -SMOKES 2 PPD PAST SURGICAL HISTORY: -LAST CARDIAC CATH DONE HERE IN 2013--PATENT STENTS -CARDIAC CATHS WITH STENTS X 3 -BILATERAL CAROTID ENDARTERECTOMY -RIGHT CAROTID STENT 01/21/20 AT -RIGHT EYE SURGERY CHILD -CERVICAL SPINE AND LUMBAR SPINE SURGERIES -LEFT FOOT FRACTURE/ ORIF -SKIN CANCER REMOVAL -APPENDECTOMY -STRESS TEST 01/05/[address] ALVAREZ: 1. Patient tolerated Lexiscan well, and transient episode of hypotension, responded to IV fluid 2. Diaphragmatic attenuation with no significant ischemia or infarction on SPECT images 3. Normal left ventricular size, EF 66% Physical Exam Vital Signs Vital Signs - First Documented 09/22/22 09/22/22 13:24 13:25 Temp 38.5 Pulse 101 Resp 33 B/P (MAP) 92/67 (75) Pulse Ox 93 O2 Delivery Nasal Cannula O2 Flow Rate 2.00 Capillary Refill : Height, Weight, BMI Height: 6'1.00" Weight: 195lbs. 0oz. [id number]; 23.00 BMI Method:Actual General Appearance: No Apparent Distress, WD/WN Eyes: Bilateral Eye Normal Inspection, Bilateral Eye PERRL, Bilateral Eye EOMI HEENT: PERRL/EOMI, Normal ENT Inspection, Pharynx Normal Neck: Full Range of Motion, Normal Inspection, Non Tender, Supple Respiratory: Chest Non Tender, Lungs Clear, Normal Breath Sounds, No Accessory Muscle Use, No Respiratory Distress Cardiovascular: Regular Rate, Rhythm, No Murmur, Normal Peripheral Pulses, Other (Underlying hypotension, 93/72) Gastrointestinal: Normal Bowel Sounds, No Organomegaly, Non Tender, Soft Back: Normal Inspection, No Vertebral Tenderness Neurologic/Psychiatric: Alert, No Motor/Sensory Deficits, Normal Mood/Affect, 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 Norm as Tested Skin: Normal Color, Warm/Dry Focused Exam Lactate Level 09/22/22 13:40: Lactic Acid Level 0.76 Lactic Acid Level Laboratory Tests Test 09/22/22 13:40 Lactic Acid Level 0.76 MMOL/L (0.50-2.00) Progress/Results/Core Measures Suspected Sepsis SIRS Temperature: Pulse: Respiratory Rate: Laboratory Tests 09/22/22 13:30: White Blood Count 10.8 Blood Pressure / Mean: 09/22/22 13:40: Lactic Acid Level 0.76 Laboratory Tests 09/22/22 13:30: Creatinine 0.91, Platelet Count 223, Total Bilirubin 0.8 Results/Orders Lab Results Laboratory Tests Test 09/22/22 13:30 09/22/22 13:40 Range/Units White Blood Count 10.8 4.3-11.0 10^3/uL Red Blood Count 4.06 L 4.30-5.52 10^6/uL Hemoglobin 11.1 L 13.3-17.7 g/dL Hematocrit 35 L 40-54 % Mean Corpuscular Volume 86 80-99 fL Mean Corpuscular Hemoglobin 27 25-34 pg Mean Corpuscular Hemoglobin Concent 32 32-36 g/dL Red Cell Distribution Width 16.6 H 10.0-14.5 % Platelet Count 223 130-400 10^3/uL Mean Platelet Volume 10.6 9.0-12.2 fL Immature Granulocyte % (Auto) 1 % Neutrophils (%) (Auto) 76 H 42-75 % Lymphocytes (%) (Auto) 13 12-44 % Monocytes (%) (Auto) 8 0-12 % Eosinophils (%) (Auto) 2 0-10 % Basophils (%) (Auto) 1 0-10 % Neutrophils # (Auto) 8.2 H 1.8-7.8 10^3/uL Lymphocytes # (Auto) 1.4 1.0-4.0 10^3/uL Monocytes # (Auto) 0.9 0.0-1.0 10^3/uL Eosinophils # (Auto) 0.2 0.0-0.3 10^3/uL Basophils # (Auto) 0.1 0.0-0.1 10^3/uL Immature Granulocyte # (Auto) 0.1 0.0-0.1 10^3/uL Sodium Level 141 135-145 MMOL/L Potassium Level 4.1 3.6-5.0 MMOL/L Chloride Level 107 98-107 MMOL/L Carbon Dioxide Level 26 21-32 MMOL/L Anion Gap 8 5-14 MMOL/L Blood Urea Nitrogen 17 7-18 MG/DL Creatinine 0.91 0.60-1.30 MG/DL Estimat Glomerular Filtration Rate 94 BUN/Creatinine Ratio 19 Glucose Level 104 70-105 MG/DL Calcium Level 9.2 8.5-10.1 MG/DL Corrected Calcium 9.2 8.5-10.1 MG/DL Total Bilirubin 0.8 0.1-1.0 MG/DL Aspartate Amino Transf (AST/SGOT) 20 5-34 U/L Alanine Aminotransferase (ALT/SGPT) 23 0-55 U/L Alkaline Phosphatase 87 40-136 U/L Total Protein 7.0 6.4-8.2 GM/DL Albumin 4.0 3.2-4.5 GM/DL Serum Alcohol < 10 <10 MG/DL Lactic Acid Level 0.76 0.50-2.00 MMOL/L My Orders Orders - MELINDA BECKER DO Ekg Tracing (09/22/22 13:33) Ct Head Wo (09/22/22 13:35) Cbc With Automated Diff (09/22/22 13:35) Comprehensive Metabolic Panel (09/22/22 13:35) Chest 1 View, Ap/Pa Only (09/22/22 13:35) Ns Iv 1000 Ml (Sodium Chloride 0.9%) (09/22/22 13:35) Blood Culture (09/22/22 13:35) Ed Iv/Invasive Line Start (09/22/22 13:35) Lactic Acid Analyzer (09/22/22 13:35) Alcohol (09/22/22 13:41) Drug Screen Stat (Urine) (09/22/22 13:41) Vital Signs/I&O 09/22/22 09/22/22 13:24 13:25 Temp 38.5 Pulse 101 Resp 33 B/P (MAP) 92/67 (75) Pulse Ox 93 O2 Delivery Nasal Cannula Nasal Cannula O2 Flow Rate 2.00 2.00 Capillary Refill : ECG Comment Twelve-lead EKG shows sinus rhythm at 95 bpm. Normal intervals. Normal axis. ST depression with T wave inversions in lead III, aVF, V5 and V6 no STEMI. No ectopy. Departure Communication (Admissions) The patient became more more alert, oriented during his emergency department stay. He is now completely alert and tells me he thinks he just got a little overheated today. His CT scan is negative for any acute findings, does show an old stroke. I have independently reviewed the imaging and I agree with the assessment of the radiologist. Chest x-ray is also grossly clear although it is very poor inspiratory effort. Initial oxygen saturation was slightly low however as he became more alert and his oxygen normalized. I have taken him off all oxygen and his oxygen saturation is 97%. He denies any shortness of breath or chest pain. He has no abdominal pain or changes in bowel or bladder habits. His labs are unremarkable outside of a very mild leukocytosis. No evidence for overt infection at this time. He will be discharged home in stable condition with close follow-up. He was given 1 L of IV fluids Impression Primary Impression: Heat exhaustion Qualified Codes: T67.5XXA - Heat exhaustion, unspecified, initial encounter Disposition: HOME, SELF-CARE Condition: Stable Departure-Patient Inst. Referrals: PAVAN TYSON PA-C (PCP/Family) Primary Care Physician Patient Instructions: Heat Illness ED Add. Discharge Instructions: Increase your fluids at home, rest. Return to the emergency department for any severe concerns. Follow-up with your primary doctor for any nonemergent needs. All discharge instructions reviewed with patient and/or family. Voiced understanding. MELINDA BECKER DO Sep 22, 2022 13:41
[2022-09-22 13:42] LABS: BASOPHILS # (AUTO) 0.1 10^3/uL (0.0-0.1); BASOPHILS % (AUTO) 1 % (0-10); EOSINOPHILS # (AUTO) 0.2 10^3/uL (0.0-0.3); EOSINOPHILS % (AUTO) 2 % (0-10); HEMATOCRIT 35 % (40-54); HEMOGLOBIN 11.1 g/dL (13.3-17.7); LYMPHOCYTES # (AUTO) 1.4 10^3/uL (1.0-4.0); LYMPHOCYTES % (AUTO) 13 % (12-44); MEAN CORPUSCULAR HEMOGLOBIN 27 pg (25-34); MEAN CORPUSCULAR HGB CONC 32 g/dL (32-36); MEAN CORPUSCULAR VOLUME 86 fL (80-99); MEAN PLATELET VOLUME 10.6 fL (9.0-12.2); MONOCYTES # (AUTO) 0.9 10^3/uL (0.0-1.0); MONOCYTES % (AUTO) 8 % (0-12); NEUTROPHILS # (AUTO) 8.2 10^3/uL (1.8-7.8); NEUTROPHILS % (AUTO) 76 % (42-75); PLATELET COUNT 223 10^3/uL (130-400); WHITE BLOOD COUNT 10.8 10^3/uL (4.3-11.0)
[2022-09-22 13:57] LABS: POTASSIUM 4.1 MMOL/L (3.6-5.0)
[2022-09-22 13:58] LABS: CALCIUM 9.2 MG/DL (8.5-10.1)
[2022-09-22 14:01] LABS: BILIRUBIN,TOTAL 0.8 MG/DL (0.1-1.0)
[2022-09-22 14:03] LABS: CREATININE SERUM 0.91 MG/DL (0.60-1.30)
--- NOTE | 2022-09-22 14:27 | Diagnostic Imaging Report ---
PROCEDURE: CT head without contrast. TECHNIQUE: Multiple contiguous axial images were obtained through the brain without the use of intravenous contrast. Auto Exposure Controls were utilized during the CT exam to meet ALARA standards for radiation dose reduction. INDICATION: Altered mental status, prolonged period exposure. COMPARISON: Brain MRI on 07/11/2022. FINDINGS: Encephalomalacia within the right parietal lobe and within the left frontal lobe. Scattered hypoattenuation within the periventricular and subcortical white matter. The mujica-white matter differentiation is preserved. The ventricles and cortical sulci mildly prominent. No acute intracranial hemorrhage. The subarachnoid spaces are maintained. The sella is normal. The paranasal sinuses and mastoids are clear. Chronic deformity of the right lamina papyracea. The globes and orbits are normal. The skull is intact. IMPRESSION: No acute intracranial hemorrhage. No large vascular territory lanier-white loss. No intracranial mass, midline shift, or hydrocephalus.. Encephalomalacia within the right parietal lobe and left frontal lobe. Dictated by: Dictated on workstation # [id number]
--- NOTE | 2022-09-22 14:30 | Diagnostic Imaging Report ---
Indication: Altered mental status. Compared: 07/11/2022 Findings: There is poor inspiratory volume with limited lung expansion, progressive opacity in the left base obscures visualization of the left diaphragm, uncertain if this is worsening pneumonia or extensive atelectasis. Upper lobes are clear. The heart size grossly unchanged. Impression: Poor inspiration crowds the lung markings. There is increased atelectasis however pneumonia superimposed in the left lower lobe could not be excluded. Dictated by: Dictated on workstation # [id number]
[2022-09-22 15:08] VITALS: BP 132/75
== END 2022-09-22 15:11 | disposition home or self-care (01) ==
LOC: EDUNIT# 13:24 → ER 13:28
DX: T67.5XXA Heat exhaustion, unspecified, initial encounter (principal); F17.210 Nicotine dependence, cigarettes, uncomplicated; Z59.00 Homelessness unspecified
CPT/HCPCS: 36415; 70450; 71045; 80053; 80320; 83605; 85025; 87040; 93005; 96360

== ENCOUNTER 2022-10-25 22:24 | Emergency (ER) | payer OTHER ==
[~2022-10-25] VITALS: Ht 187.9 cm; Wt 84.0 kg
--- NOTE | 2022-10-25 22:38 | ED Fall/Injury ---
General Chief Complaint: Trauma-Non Activation Stated Complaint: FALL Source: patient History of Present Illness Date Seen by Provider: Oct 25, 2022 Time Seen by Provider: 22:28 Initial Comments PT ARRIVES VIA [facility] PT STATES HE FELL GETTING OUT OF THE SHOWER, INJURING HIS RIGHT RIB AREA DENIES LOSS OF CONSCIOUSNESS DOES NOT THINK HE HIT HIS HEAD HURTS TO BREATHE NO NECK OR BACK PAIN NO NAUSEA/VOMITING PT IS ON BLOOD THINNER FOR CAD WITH STENTS X 3, HE HAS ALSO HAD PRIOR CVA WITH RIGHT SIDE WEAKNESS, AND CHRONIC RIGHT LEG SWELLING SINCE CVA Allergies and Home Medications Allergies Coded Allergies: No Known Drug Allergies (Unverified , 03/13/18) Patient Home Medication List Acetaminophen (Tylenol Extra Strength) 500 Mg Tablet, 1,000 MG PO TID PRN for P AIN-MILD (1-4), (Reported) Entered as Reported by: BLESSING LENTZ on 07/11/22 1209 Amlodipine Besylate (Amlodipine Besylate) 5 Mg Tablet, 5 MG PO DAILY, (Reported) Entered as Reported by: BLESSING LENTZ on 07/11/22 1149 Aspirin (Aspirin EC) 81 Mg Tablet.dr, 81 MG PO DAILY, (Reported) Entered as Reported by: BLESSING LENTZ on 07/11/22 1153 Atorvastatin Calcium (Atorvastatin Calcium) 80 Mg Tablet, 80 MG PO HS, (Reported) Entered as Reported by: RENNY STEPHENS on 04/28/20 1607 Baclofen (Baclofen) 10 Mg Tablet, 5 MG PO Q8H PRN for MUSCLE SPASMS, (Reported) Entered as Reported by: LEYLA ESPINOZA on 03/13/18 1354 Benzonatate (Tessalon Perles) 100 Mg Capsule, 100 MG PO TID PRN for COUGH--1ST LINE Prescribed by: PRUDENCE BECK on 07/12/22 0935 Bupropion HCl (Bupropion HCl Sr) 150 Mg Tablet.er, 150 MG PO BID, (Reported) Entered as Reported by: RENNY STEPHENS on 01/05/21 0928 Cholecalciferol (Vitamin D3) (Vitamin D3) 50 Mcg (2000 Unit) Tablet, 50 MCG PO BID, (Reported) Entered as Reported by: ANNA KOVACS on 10/19/20 1328 Clopidogrel Bisulfate (Plavix) 75 Mg Tablet, 75 MG PO DAILY, (Reported) Entered as Reported by: LEYLA ESPINOZA on 03/13/18 1354 Cyanocobalamin (Vitamin B-12) (B-12) 1,000 Mcg Tablet, 1,000 MCG PO DAILY, (Reported) Entered as Reported by: BLESSING LENTZ on 07/11/22 1208 Diphenhydramine HCl (Zzzquil) 50 Mg/30 Ml Liquid, 30 ML PO HS PRN for SLEEP, (Reported) Entered as Reported by: BLESSING LENTZ on 07/11/22 1204 Doxycycline Hyclate (Doxycycline Hyclate) 100 Mg Tablet, 100 MG PO BID@ Prescribed by: PRUDENCE BECK on 07/12/22 0935 Fluticasone Propion/Salmeterol (Wixela 250-50 Inhub) 250 Mcg-50 Mcg/Dose Blst.w.dev, 1 EACH IH BID, (Reported) Entered as Reported by: BLESSING LENTZ on 07/11/22 1205 Fluticasone Propionate (Fluticasone Propionate) 50 Mcg/Actuation [place].susp, 1 SPRAYS NSEACH BID PRN for ALLERGIES, (Reported) Entered as Reported by: ANNA KOVACS on 10/19/20 1328 Gabapentin (Neurontin) 300 Mg Capsule, 300 MG PO TID, (Reported) Entered as Reported by: ANNA KOVACS on 10/19/20 1328 Guaifenesin/Codeine (Robitussin Ac (Codeine) Syrup) 10 Ml Syrp, 10 ML PO Q4H PRN for COUGH--2ND LINE Prescribed by: PRUDENCE BECK on 07/12/22 0936 Ipratropium/Albuterol Sulfate (Iprat-Albut 0.5-3(2.5) mg/3 ml) 0.5 Mg-3 Mg (2.5 Mg Base)/3 Ml Ampul.neb, 3 ML IH Q6H PRN for SHORTNESS OF BREATH, (Reported) Entered as Reported by: BLESSING LENTZ on 07/11/22 1157 Lisinopril (Lisinopril) 40 Mg Tablet, 20 MG PO DAILY, (Reported) Entered as Reported by: ANNA KOVACS on 10/19/20 1328 Melatonin (Melatonin) 5 Mg Tablet, 5 MG PO HS, (Reported) Entered as Reported by: BLESSING LENTZ on 07/11/22 1158 Montelukast Sodium (Montelukast Sodium) 10 Mg Tablet, 10 MG PO HS Prescribed by: PRUDENCE BECK on 07/12/22 0935 Nitroglycerin (Nitroglycerin) 0.4 Mg Tab.subl, 0.4 MG SL UD PRN for CHEST PAIN, (Reported) Entered as Reported by: BLESSING LENTZ on 07/11/22 1205 Petrolatum,White (Aquaphor) 41 % Oint...g., 1 APPLIC TP 1999, (Reported) Entered as Reported by: BLESSING LENTZ on 07/11/22 1150 Polyethylene Glycol 3350 (Miralax) 17 Gram Powd.pack, 17 GM PO DAILY PRN for CONSTIPATION-2ND LINE, (Reported) Entered as Reported by: BLESSING LENTZ on 07/11/22 1200 Prednisone (Prednisone) 10 Mg Tab.ds.pk, 10 MG PO DAILY Prescribed by: PRUDENCE BECK on 07/12/22 0935 Past Sruqrly-Ppzwfs-Ipgduj Hx Immunizations Up To Date Tetanus Booster (TDap): Less than 5yrs First/Initial COVID19 Vaccinat: 11/10 Second COVID19 Vaccination Oskar: 12/10 Third COVID19 Vaccination Date: 11/10 Seasonal Allergies Seasonal Allergies: No Past Medical History Surgery/Hospitalization HX: cardiac stents, spinal sx, appy, bilateral carotid endartectomy, HX OF STROKE WITH RT SIDE WEAKNESS, UNABLE TO WALK-USES A W/C Surgeries: Yes (EYES;C+L SPINE;CARDIAC CATHS-STENTS X3;BILAT CAROTID ENDART;FOOT;SKIN CA) Angioplasty, Appendectomy, Cardiac, Coronary Stent, Eye Surgery, Orthopedic, Vascular Surgery Respiratory: Yes Pneumonia, Chronic Bronchitis, COPD, Emphysema Currently Using CPAP: No Currently Using BIPAP: No Cardiac: Yes (CARDIAC CATHS-STENTS X3; BILAT CAROTID ENDARTERECTOMIES;R CAROTID STENT) Coronary Artery Disease, High Cholesterol, Hypertension, Peripheral Vascular Neurological: Yes (stroke Jan 20, 2020-RIGHT SIDE PARALYSI, R sided stent placed; TIA 03/23/20) Neuropathy, Stroke Reproductive Disorders: No Sexually Transmitted Disease: No HIV/AIDS: No Genitourinary: Yes Benign Prostatic Hyperpl, Renal Failure Gastrointestinal: Yes (HEPATITIS C--S/P TREATMENT) Gastroesophageal Reflux Musculoskeletal: Yes (CHRONIC NECK AND BACK PAIN-S/P C-SPINE + L-SPINE SURGERY; L FOOT FX/ORIF) Chronic Back Pain Endocrine: No HEENT: Yes (READING GLASSES;EYE SURGERY CHILD) Loss of Vision: Bilateral Hearing Impairment: Hard of Hearing Cancer: Yes Skin Did You Recieve Any Treatments: Yes What Type of Treatment Did You: Surgical Intervention Psychosocial: Yes (SUBSTANCE ABUSE) Anxiety, Violent Behavior, Depression Integumentary: Yes (SKIN CANCER-GETS BLISTERS) Recent Skin Changes Blood Disorders: No Adverse Reaction/Blood Tranf: No Family Medical History Cancer 19 FATHER (SKIN) 19 MOTHER Cancer of colon 19 MOTHER Kidney disease 19 FATHER (PASSED KIDNEY FAILURE) No Pertinent Family Hx SOCIAL HISTORY: -ETOH--OCCASIONAL USE, HX OF HEAVY USE -DRUGS--DAILY MARIJUANA USE, ALSO METH USE. DENIES IV DRUG USE -SMOKES 2 PPD PAST SURGICAL HISTORY: -LAST CARDIAC CATH DONE HERE IN 2013--PATENT STENTS -CARDIAC CATHS WITH STENTS X 3 -BILATERAL CAROTID ENDARTERECTOMY -RIGHT CAROTID STENT 01/21/20 AT -RIGHT EYE SURGERY CHILD -CERVICAL SPINE AND LUMBAR SPINE SURGERIES -LEFT FOOT FRACTURE/ ORIF -SKIN CANCER REMOVAL -APPENDECTOMY -STRESS TEST 01/05/[address] ALVAREZ: 1. Patient tolerated Lexiscan well, and transient episode of hypotension, responded to IV fluid 2. Diaphragmatic attenuation with no significant ischemia or infarction on SPECT images 3. Normal left ventricular size, EF 66% Physical Exam Vital Signs Vital Signs - First Documented 10/25/22 22:27 Temp 36.5 Pulse 55 Resp 14 B/P (MAP) 114/73 (87) Capillary Refill : Height, Weight, BMI Height: 6'1.00" Weight: 195lbs. 0oz. 88.266141wd; 29.00 BMI Method:Actual Progress/Results/Core Measures Results/Orders Lab Results Laboratory Tests Test 10/25/22 23:00 10/26/22 00:40 Range/Units White Blood Count 11.8 H 4.3-11.0 10^3/uL Red Blood Count 3.79 L 4.30-5.52 10^6/uL Hemoglobin 10.2 L 13.3-17.7 g/dL Hematocrit 33 L 40-54 % Mean Corpuscular Volume 87 80-99 fL Mean Corpuscular Hemoglobin 27 25-34 pg Mean Corpuscular Hemoglobin Concent 31 L 32-36 g/dL Red Cell Distribution Width 16.4 H 10.0-14.5 % Platelet Count 183 130-400 10^3/uL Mean Platelet Volume 10.8 9.0-12.2 fL Immature Granulocyte % (Auto) 0 % Neutrophils (%) (Auto) 75 42-75 % Lymphocytes (%) (Auto) 13 12-44 % Monocytes (%) (Auto) 9 0-12 % Eosinophils (%) (Auto) 2 0-10 % Basophils (%) (Auto) 1 0-10 % Neutrophils # (Auto) 8.9 H 1.8-7.8 10^3/uL Lymphocytes # (Auto) 1.6 1.0-4.0 10^3/uL Monocytes # (Auto) 1.0 0.0-1.0 10^3/uL Eosinophils # (Auto) 0.3 0.0-0.3 10^3/uL Basophils # (Auto) 0.1 0.0-0.1 10^3/uL Immature Granulocyte # (Auto) 0.1 0.0-0.1 10^3/uL Prothrombin Time 13.5 12.2-14.7 SEC INR Comment 1.0 0.8-1.4 Activated Partial Thromboplast Time 25 24-35 SEC Sodium Level 141 135-145 MMOL/L Potassium Level 3.8 3.6-5.0 MMOL/L Chloride Level 108 H 98-107 MMOL/L Carbon Dioxide Level 24 21-32 MMOL/L Anion Gap 9 5-14 MMOL/L Blood Urea Nitrogen 24 H 7-18 MG/DL Creatinine 1.05 0.60-1.30 MG/DL Estimat Glomerular Filtration Rate 79 BUN/Creatinine Ratio 23 Glucose Level 144 H 70-105 MG/DL Calcium Level 9.0 8.5-10.1 MG/DL Corrected Calcium 9.2 8.5-10.1 MG/DL Total Bilirubin 0.4 0.1-1.0 MG/DL Aspartate Amino Transf (AST/SGOT) 17 5-34 U/L Alanine Aminotransferase (ALT/SGPT) 20 0-55 U/L Alkaline Phosphatase 77 40-136 U/L Total Protein 6.2 L 6.4-8.2 GM/DL Albumin 3.8 3.2-4.5 GM/DL Serum Alcohol < 10 <10 MG/DL Urine Color YELLOW Urine Clarity CLEAR Urine pH 6.0 5-9 Urine Specific [place] 1.010 L 1.016-1.022 Urine Protein NEGATIVE NEGATIVE Urine Glucose (UA) NEGATIVE NEGATIVE Urine Ketones NEGATIVE NEGATIVE Urine Nitrite NEGATIVE NEGATIVE Urine Bilirubin NEGATIVE NEGATIVE Urine Urobilinogen 4.0 < = 1.0 MG/DL Urine Leukocyte Esterase NEGATIVE NEGATIVE Urine RBC (Auto) NEGATIVE NEGATIVE Urine RBC RARE /HPF Urine WBC RARE /HPF Urine Crystals NONE /LPF Urine Bacteria NEGATIVE /HPF Urine Casts PRESENT /LPF Urine Hyaline Casts 0-2 H /LPF Urine Mucus NEGATIVE /LPF Urine Culture Indicated NO Urine Opiates Screen NEGATIVE NEGATIVE Urine Oxycodone Screen NEGATIVE NEGATIVE Urine Methadone Screen NEGATIVE NEGATIVE Urine Propoxyphene Screen NEGATIVE NEGATIVE Urine Barbiturates Screen NEGATIVE NEGATIVE Ur Tricyclic Antidepressants Screen NEGATIVE NEGATIVE Urine Phencyclidine Screen NEGATIVE NEGATIVE Urine Amphetamines Screen NEGATIVE NEGATIVE Urine Methamphetamines Screen NEGATIVE NEGATIVE Urine Benzodiazepines Screen NEGATIVE NEGATIVE Urine Cocaine Screen NEGATIVE NEGATIVE Urine Cannabinoids Screen POSITIVE H NEGATIVE My Orders Orders - TRISTAN QUICK DO Ed Iv/Invasive Line Start (10/25/22 22:29) Monitor-Rhythm Ecg Trace Only (10/25/22 22:29) Cbc With Automated Diff (10/25/22 22:29) Comprehensive Metabolic Panel (10/25/22 22:29) Protime With Inr (10/25/22 22:29) Partial Thromboplastin Time (10/25/22 22:29) Ua Culture If Indicated (10/25/22 22:29) Ct Head/Cervical Spine Wo (10/25/22 22:29) Ct Thoracic/Lumbar Spine Wo (10/25/22 22:29) Ct Chest/Abdomen/Pelvis W (10/25/22 22:29) Chest 1 View, Ap/Pa Only (10/25/22 22:38) Pelvis 1 To 2 Views (10/25/22 22:38) Alcohol (10/25/22 22:56) Drug Screen Stat (Urine) (10/25/22 22:56) Fentanyl Injection (Fentanyl Injection (10/26/22 00:50) Iohexol Injection (Omnipaque 350 Mg/Ml 1 (10/26/22 01:00) Received Contrast (Hold Metformin- Contr (10/26/22 01:00) Ns (Ivpb) 100 Ml (Sodium Chloride 0.9% 1 (10/26/22 01:00) Fentanyl Injection (Fentanyl Injection (10/26/22 02:30) Ketorolac Injection (Ketorolac Injection (10/26/22 02:30) Medications Given in ED Current Medications Medications Dose Ordered Sig/Lindsey Route Start Time Stop Time Status Last Admin Dose Admin Fentanyl Citrate 50 mcg ONCE ONCE IVP 10/26/22 02:30 10/26/22 02:31 DC 10/26/22 02:40 50 MCG Iohexol 100 ml ONCE ONCE IV 10/26/22 01:00 10/26/22 01:30 DC 10/26/22 00:58 80 ML Ketorolac Tromethamine 30 mg ONCE ONCE IVP 10/26/22 02:30 10/26/22 02:31 DC 10/26/22 02:40 30 MG Sodium Chloride 100 ml ONCE ONCE IV 10/26/22 01:00 10/26/22 01:30 DC 10/26/22 00:58 80 ML Vital Signs/I&O 10/25/22 22:27 Temp 36.5 Pulse 55 Resp 14 B/P (MAP) 114/73 (87) Diagnostic Imaging Comments CT CHEST/ABDOMEN/PELVIS--PER RADIOLOGIST REPORT AT 0335 COMPARISON: 04/11/2021 FINDINGS: CT chest: Cardiomediastinal structures show mild cardiomegaly. Small pericardial effusion is noted. Indwelling coronary artery stent is present. No suspicious mediastinal, hilar, or axillary adenopathy is seen on this exam. Evaluation of the lung waterman is degraded by motion artifact. Bibasilar partial atelectasis is noted. Lungs are otherwise clear. There is no large effusion or pneumothorax. Pulmonary nodule may be obscured. Osseous structures show no acute abnormalities. CT ABDOMEN: Normal appendix cannot be adequately identified, but there is no pericecal inflammation. Small bowel loops are nondilated. A 1.9 cm exophytic rounded lesion of the superior pole of the left kidney is identified anteriorly. It has a somewhat hyperdense appearance on the noncontrast CT of the thoracic spine and is stable in size when compared to 04/11/2021. This may be on the basis of a hemorrhagic cyst. Otherwise, the kidneys, adrenal glands, spleen, pancreas, and liver have a normal CT appearance. No traumatic injury to the solid organs is seen. Gallstone is noted. There is no loculated fluid collection, free fluid, nor free air. No abnormal mesenteric or retroperitoneal adenopathy is seen. Duplicated IVC is noted. Osseous structures show no acute abnormalities. CT PELVIS: Urinary bladder is unopacified and minimally distended. No calculi are seen within urinary bladder. There is no loculated fluid collection free fluid or free air. Osseous structures show no acute abnormalities. IMPRESSION: 1. No acute abnormality is seen within the chest, abdomen, or pelvis. 2. Probable hemorrhagic cyst of the left kidney. This could be confirmed with dedicated renal sonogram on a nonemergent basis. 3. Cholelithiasis. CT THORACIC/LUMBAR SPINE--PER RADIOLOGIST REPORT AT 0335 Reviewed: Reviewed by Me Departure Impression Primary Impression: Unwitnessed fall Additional Impression: Right rib fracture Disposition: [facility] Condition: Stable Departure-Patient Inst. Decision time for Depature: 03:35 Referrals: PAVAN TYSON PA-C (PCP/Family) Primary Care Physician Patient Instructions: Preventing Falls ED, Rib Fracture or Bruised Rib ED, Blunt Chest Trauma ED Add. Discharge Instructions: CONTINUE YOUR REGULAR MEDICATIONS PRESCRIBED FOLLOW UP WITH YOUR DR THIS WEEK FOR FURTHER CARE--CALL IN THE MORNING TO SCHEDULE APPOINTMENT All discharge instructions reviewed with patient and/or family. Voiced understanding. Scripts Hydrocodone/Acetaminophen (Hydrocodone-Acetamin 5-325 mg) 5 Mg-325 Mg Tablet 1 EACH PO Q4-6 HOURS PRN for PAIN, #20 TAB Prov: TRISTAN QUICK DO 10/26/22 TRISTAN QUICK DO Oct 25, 2022 22:38
[2022-10-25 23:10] LABS: BASOPHILS # (AUTO) 0.1 10^3/uL (0.0-0.1); BASOPHILS % (AUTO) 1 % (0-10); EOSINOPHILS # (AUTO) 0.3 10^3/uL (0.0-0.3); EOSINOPHILS % (AUTO) 2 % (0-10); HEMATOCRIT 33 % (40-54); HEMOGLOBIN 10.2 g/dL (13.3-17.7); LYMPHOCYTES # (AUTO) 1.6 10^3/uL (1.0-4.0); LYMPHOCYTES % (AUTO) 13 % (12-44); MEAN CORPUSCULAR HEMOGLOBIN 27 pg (25-34); MEAN CORPUSCULAR HGB CONC 31 g/dL (32-36); MEAN CORPUSCULAR VOLUME 87 fL (80-99); MEAN PLATELET VOLUME 10.8 fL (9.0-12.2); MONOCYTES % (AUTO) 9 % (0-12); NEUTROPHILS # (AUTO) 8.9 10^3/uL (1.8-7.8); NEUTROPHILS % (AUTO) 75 % (42-75); PLATELET COUNT 183 10^3/uL (130-400); WHITE BLOOD COUNT 11.8 10^3/uL (4.3-11.0)
[2022-10-25 23:23] LABS: PROTHROMBIN TIME PATIENT 13.5 SEC (12.2-14.7)
[2022-10-25 23:31] LABS: ALANINE AMINOTRANSFERASE 20 U/L (0-55); ALBUMIN 3.8 GM/DL (3.2-4.5); ALKALINE PHOSPHATASE 77 U/L (40-136); BILIRUBIN,TOTAL 0.4 MG/DL (0.1-1.0); BUN/CREATININE RATIO 23; CARBON DIOXIDE 24 MMOL/L (21-32); CHLORIDE 108 MMOL/L (98-107); CREATININE SERUM 1.05 MG/DL (0.60-1.30); GFR ESTIMATED 79; GLUCOSE 144 MG/DL (70-105); POTASSIUM 3.8 MMOL/L (3.6-5.0); SODIUM 141 MMOL/L (135-145); TOTAL PROTEIN 6.2 GM/DL (6.4-8.2)
[2022-10-26] MEDS ORDERED: fentaNYL INJECTION 100 MCG/2 ML VIAL IVP STA (00:50)
[2022-10-26] MEDS ORDERED: HOLD METFORMIN - RECEIVED CONTRAST 20 ML VIAL IV SCH (01:00)
[2022-10-26] MEDS ORDERED: IOHEXOL 350 MG/ML 100 ML (OMNIPAQUE 350) VIAL IV ONE (01:00)
[2022-10-26] MEDS ORDERED: NS 100 ML (IVPB) BAG IV ONE (01:00)
[2022-10-26 01:09] LABS: AMPHETAMINE SCREEN, URINE NEGATIVE (NEGATIVE); BARBITURATE SCREEN URINE NEGATIVE (NEGATIVE); BENZODIAZEPINES SCREEN URINE NEGATIVE (NEGATIVE); CANNABINOID SCREEN, URINE POSITIVE (NEGATIVE); COCAINE SCREEN URINE NEGATIVE (NEGATIVE); METHADONE STAT NEGATIVE (NEGATIVE); OPIATE SCREEN URINE NEGATIVE (NEGATIVE); OXYCODONE STAT NEGATIVE (NEGATIVE); PROPOXYPHENE STAT NEGATIVE (NEGATIVE); TRICYCLIC ANTIDEPRESSANTS SCRE NEGATIVE (NEGATIVE)
[2022-10-26 01:10] LABS: BILIRUBIN,URINE NEGATIVE (NEGATIVE); CLARITY,URINE CLEAR; COLOR,URINE YELLOW; GLUCOSE, URINE (UA) NEGATIVE (NEGATIVE); KETONES,URINE NEGATIVE (NEGATIVE); NITRITE,URINE NEGATIVE (NEGATIVE); PROTEIN,URINE NEGATIVE (NEGATIVE)
[2022-10-26 01:11] LABS: BACTERIA,URINE NEGATIVE /HPF; HYALINE CASTS, URINE 0-2 /LPF; LEUKOCYTE ESTERASE ,URINE NEGATIVE (NEGATIVE); RBC,URINE RARE /HPF; WBC,URINE RARE /HPF
[2022-10-26] MEDS ORDERED: KETOROLAC INJ 30 MG/ML VIAL IVP ONE (02:30)
[2022-10-26] MEDS ORDERED: fentaNYL INJECTION 100 MCG/2 ML VIAL IVP ONE (02:30)
--- NOTE | 2022-10-26 02:59 | Diagnostic Imaging Report ---
PROCEDURE: CT thoracic and lumbar spine without contrast. TECHNIQUE: Multiple contiguous axial images were obtained through the thoracic and lumbar spine without the use of intravenous contrast. Sagittal and coronal reformations were then performed. All CT scans use one or more of the following dose optimizing techniques: automated exposure control, MA and/or KvP adjustment based on a patient size and exam type, or iterative reconstruction. INDICATION: Upper and lower back pain status post traumatic injury. COMPARISON: 09/11/2021 FINDINGS: CT thoracic spine: Static alignment of the thoracic spine is maintained. There is no significant anthony or retrolisthesis. There is no evidence of jumped facets. Vertebral body heights are maintained. There is no acute fracture. No bony fragments are seen within the spinal canal. There are moderate multilevel degenerative changes consisting of intervertebral disc height loss with anterior and posterior disc osteophyte complex formations. There is also multilevel facet arthropathy. Pre and paravertebral soft tissue structures are unremarkable. Included portions of the lungs are clear. CT lumbar spine: Evaluation of the static alignment shows mild levoscoliotic deformity. There is also slight grade 1 retrolisthesis at L2-L3. There is no evidence of jumped facets. Vertebral body heights are maintained. There is no acute fracture. No bony fragments are seen within the spinal canal. Moderate multilevel degenerative changes are present and consistent intervertebral disc height loss with anterior and posterior disc osteophyte complex formations as well as multilevel facet arthropathy. Patient is status post previous laminectomy at L3 and L4. Pre and paravertebral soft tissue structures are unremarkable. Note is made of cholelithiasis. IMPRESSION: 1. Degenerative changes of the thoracic and lumbar spine, but no evidence of acute fracture or dislocation. Dictated by: Dictated on workstation # [id number]
--- NOTE | 2022-10-26 03:18 | Diagnostic Imaging Report ---
PROCEDURE: CT chest, abdomen, and pelvis with contrast. TECHNIQUE: Multiple contiguous axial images were obtained through the chest, abdomen, and pelvis after the administration of intravenous contrast. Auto Exposure Controls were utilized during the CT exam to meet ALARA standards for radiation dose reduction. INDICATION: Torso pain status post traumatic injury. COMPARISON: 04/11/2021 FINDINGS: CT chest: Cardiomediastinal structures show mild cardiomegaly. Small pericardial effusion is noted. Indwelling coronary artery stent is present. No suspicious mediastinal, hilar, or axillary adenopathy is seen on this exam. Evaluation of the lung waterman is degraded by motion artifact. Bibasilar partial atelectasis is noted. Lungs are otherwise clear. There is no large effusion or pneumothorax. Pulmonary nodule may be obscured. Osseous structures show no acute abnormalities. CT ABDOMEN: Normal appendix cannot be adequately identified, but there is no pericecal inflammation. Small bowel loops are nondilated. A 1.9 cm exophytic rounded lesion of the superior pole of the left kidney is identified anteriorly. It has a somewhat hyperdense appearance on the noncontrast CT of the thoracic spine and is stable in size when compared to 04/11/2021. This may be on the basis of a hemorrhagic cyst. Otherwise, the kidneys, adrenal glands, spleen, pancreas, and liver have a normal CT appearance. No traumatic injury to the solid organs is seen. Gallstone is noted. There is no loculated fluid collection, free fluid, nor free air. No abnormal mesenteric or retroperitoneal adenopathy is seen. Duplicated IVC is noted. Osseous structures show no acute abnormalities. CT PELVIS: Urinary bladder is unopacified and minimally distended. No calculi are seen within urinary bladder. There is no loculated fluid collection free fluid or free air. Osseous structures show no acute abnormalities. IMPRESSION: 1. No acute abnormality is seen within the chest, abdomen, or pelvis. 2. Probable hemorrhagic cyst of the left kidney. This could be confirmed with dedicated renal sonogram on a nonemergent basis. 3. Cholelithiasis. Dictated by: Dictated on workstation # [id number]
[2022-10-26] MEDS ORDERED: ACHD5005 PO (03:40)
[2022-10-26 04:45] VITALS: BP 167/84
--- NOTE | 2022-10-26 07:19 | Diagnostic Imaging Report ---
Clinical indications: Patient is status post trauma and injury. Exam: Head CT without IV contrast with sagittal and coronal reformations. Axial CT scan of the cervical spine with sagittal and coronal reformations. Auto Exposure Controls were utilized during the CT exam to meet ALARA standards for radiation dose reduction. Comparison: Head CT without contrast dated 09/22/2022. CT angiogram of head/neck dated 07/10/2022. Findings: Head CT: There is no evidence of acute cerebral infarct, intracranial hemorrhage, or gross mass effect. Stable chronic cerebral infarcts involving the anterior aspect of left cerebral hemisphere and posterior aspects of the right cerebral hemisphere. There is normal mujica-white matter distinction. There is no significant midline shift or herniation. There is no evidence of hydrocephalus. The basal cisterns are unremarkable. The skull, extracranial soft tissue, and orbits are unremarkable. The paranasal sinuses are unremarkable. Temporal bones show no significant abnormality. Cervical spine: There is no acute cervical spine fracture. There is C4-C6 ACDF with C5 corpectomy with strut graft in place. There is solid bony bridging/fusion seen from the C4-C6 levels. There are hypertrophic spurs involving the cervical spine, uncinate spurs and facet arthropathy. There is moderate to severe neural foramen narrowing seen from the right C2-C3 neural foraminal region and bilateral C3-C7 levels. There is at least mild to moderate central canal narrowing at the C5-C6 level. There is no significant neck soft tissue abnormality. Visualized upper lung waterman are clear. IMPRESSION: 1: Stable CT scan of the brain with no interval evidence of acute intracranial process. 3: There is no acute cervical spine fracture. 3: There are stable chronic bilateral cerebral hemisphere infarcts. 4: There is C4-C6 ACDF with C5 corpectomy and strut graft in place. There is solid bony bridging/fusion seen from the C4-C6 levels. I agree with [facility] report. Dictated by: Dictated on workstation # [id number]
--- NOTE | 2022-10-26 07:40 | Diagnostic Imaging Report ---
CLINICAL INDICATION: Patient is status post fall with right chest pain. EXAM: Portable chest x-ray upright view. COMPARISON: Chest x-ray dated 09/22/2022. FINDINGS: Stable elevation of the right hemidiaphragm. There is slight improved aeration of the left lung base with mild bibasilar atelectasis again noted. There is stable consolidation of the left lung base which may be related to atelectasis, but superimposed infiltrate cannot be completely excluded. Mild cardiomegaly is noted. There is no significant pulmonary vascular congestion. There are degenerative spurs involving the thoracic spine. ACDF is again noted. IMPRESSION: 1: There is bibasilar atelectasis. Given consolidation left lung base, left lung base infiltrates cannot be completely excluded. There is overall slight improved aeration left lung base compared to prior study. 2: Stable cardiomegaly with no significant pulmonary vascular congestion. Dictated by: Dictated on workstation # [id number]
--- NOTE | 2022-10-26 08:35 | Diagnostic Imaging Report ---
"INDICATION|: Pelvic pain EXAMINATION|: Pelvis 10/25/2022 COMPARISON: 04/01/21 FINDINGS: Contrast noted in the urinary bladder and bilateral ureters. The osseous structures are intact. No dislocations or acute fractures. IMPRESSION: 1. No acute osseous abnormality but if pain persists, further imaging recommended. Dictated by: Dictated on workstation # [id number]"
== END 2022-10-26 04:45 ==
LOC: EDUNIT# 22:24 → ER 22:25
DX: S22.31XA Fracture of one rib, right side, initial encounter for closed fracture (principal); I25.10 Atherosclerotic heart disease of native coronary artery without angina pectoris; F17.210 Nicotine dependence, cigarettes, uncomplicated; Z79.01 Long term (current) use of anticoagulants; W18.2XXA Fall in (into) shower or empty bathtub, initial encounter
CPT/HCPCS: 36415; 70450; 71045; 71260; 72125; 72128; 72131; 72170; 74177; 80053; 80306; 80320; 81000; 85025; 85610; 85730

== ENCOUNTER 2022-12-15 22:53 | Emergency (ER) | payer OTHER ==
[~2022-12-15] VITALS: Ht 187.9 cm; Wt 86.1 kg
[~2022-12-15 22:53] MED LIST changes: +ACHD5005 PO; +MUPI22OI2 TP
--- NOTE | 2022-12-15 23:21 | ED General ---
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 PT STATES WAS IN THE BATHROOM WHEN HE SLIPPED AND FELL. PT REPORTS HITTING HIS HEAD. DENIES PAIN AND LOC. PT STATES IS ON BLOOD THINNER. PT A&OX4 Source of Information: Patient Exam Limitations: No Limitations (YONIS COBB) History of Present Illness Date Seen by Provider: Dec 15, 2022 Time Seen by Provider: 23:25 Initial Comments This is a 67 yo male from assisted living with history of stroke and multiple falls that presents with headache after falling in bathroom and hitting head. Pt states that he tripped over his feet, hit head on right lateral side on the floor and started having headache. Pt states he didn't lose consciousness or have any precipitating factors including lightheadedness, dizziness, and vision changes. Pt states fall occurred 1 hour prior to arrival. He does not complain of any other pain. Headache is right sided lateral temporal-parietal region rated 1/10 that does not radiate and is constant and dull. Denies chest pain, SOA, fever, sore throat, abdominal pain, n/v/d, dysuria. He said he does have x1 day of constipation. Severity: Mild (YONIS COBB) Allergies and Home Medications Allergies Coded Allergies: No Known Drug Allergies (Unverified , 03/13/18) Patient Home Medication List Home Medication List Reviewed: Yes (PAWEL DASH MD) Acetaminophen (Tylenol Extra Strength) 500 Mg Tablet, 1,000 MG PO TID PRN for PAIN-MILD (1-4), (Reported) Entered as Reported by: BLESSING LENTZ on 07/11/22 1209 Amlodipine Besylate (Amlodipine Besylate) 5 Mg Tablet, 5 MG PO DAILY, (Reported) Entered as Reported by: BLESSING LENTZ on 07/11/22 1149 Aspirin (Aspirin EC) 81 Mg Tablet.dr, 81 MG PO DAILY, (Reported) Entered as Reported by: BLESSING LENTZ on 07/11/22 1153 Atorvastatin Calcium (Atorvastatin Calcium) 80 Mg Tablet, 80 MG PO HS, (Reported) Entered as Reported by: RNENY STEPHENS on 04/28/20 1607 Baclofen (Baclofen) 10 Mg Tablet, 5 MG PO Q8H PRN for MUSCLE SPASMS, (Reported) Entered as Reported by: LEYLA ESPINOZA on 03/13/18 1354 Benzonatate (Tessalon Perles) 100 Mg Capsule, 100 MG PO TID PRN for COUGH--1ST LINE Prescribed by: PRUDENCE BECK on 07/12/22 0935 Bupropion HCl (Bupropion HCl Sr) 150 Mg Tablet.er, 150 MG PO BID, (Reported) Entered as Reported by: RENNY STEPHENS on 01/05/21 0928 Cholecalciferol (Vitamin D3) (Vitamin D3) 50 Mcg (2000 Unit) Tablet, 50 MCG PO BID, (Reported) Entered as Reported by: ANNA KOVACS on 10/19/20 1328 Clopidogrel Bisulfate (Plavix) 75 Mg Tablet, 75 MG PO DAILY, (Reported) Entered as Reported by: LEYLA ESPINOZA on 03/13/18 1354 Cyanocobalamin (Vitamin B-12) (B-12) 1,000 Mcg Tablet, 1,000 MCG PO DAILY, (Reported) Entered as Reported by: BLESSING LENTZ on 07/11/22 1208 Diphenhydramine HCl (Zzzquil) 50 Mg/30 Ml Liquid, 30 ML PO HS PRN for SLEEP, (Reported) Entered as Reported by: BLESSING LENTZ on 07/11/22 1204 Doxycycline Hyclate (Doxycycline Hyclate) 100 Mg Tablet, 100 MG PO BID@07,17 Prescribed by: PRUDENCE BECK on 07/12/22 0935 Fluticasone Propion/Salmeterol (Wixela 250-50 Inhub) 250 Mcg-50 Mcg/Dose Blst.w.dev, 1 EACH IH BID, (Reported) Entered as Reported by: BLESSING LENTZ on 07/11/22 1205 Fluticasone Propionate (Fluticasone Propionate) 50 Mcg/Actuation [place].susp, 1 SPRAYS NSEACH BID PRN for ALLERGIES, (Reported) Entered as Reported by: ANNA KOVACS on 10/19/20 1328 Gabapentin (Neurontin) 300 Mg Capsule, 300 MG PO TID, (Reported) Entered as Reported by: ANNA KOVACS on 10/19/20 1328 Guaifenesin/Codeine (Robitussin Ac (Codeine) Syrup) 10 Ml Syrp, 10 ML PO Q4H PRN for COUGH--2ND LINE Prescribed by: PRUDENCE BECK on 07/12/22 0936 Hydrocodone/Acetaminophen (Hydrocodone-Acetamin 5-325 mg) 5 Mg-325 Mg Tablet, 1 EACH PO Q4-6 HOURS PRN for PAIN Prescribed by: TRISTAN QUICK on 10/26/22 0341 Ipratropium/Albuterol Sulfate (Iprat-Albut 0.5-3(2.5) mg/3 ml) 0.5 Mg-3 Mg (2.5 Mg Base)/3 Ml Ampul.neb, 3 ML IH Q6H PRN for SHORTNESS OF BREATH, (Reported) Entered as Reported by: BLESSING LENTZ on 07/11/22 1157 Lisinopril (Lisinopril) 40 Mg Tablet, 20 MG PO DAILY, (Reported) Entered as Reported by: ANNA KOVACS on 10/19/20 1328 Melatonin (Melatonin) 5 Mg Tablet, 5 MG PO HS, (Reported) Entered as Reported by: BLESSING LENTZ on 07/11/22 1158 Montelukast Sodium (Montelukast Sodium) 10 Mg Tablet, 10 MG PO HS Prescribed by: PRUDENCE BECK on 07/12/22 0935 Mupirocin (Mupirocin) 2 % Oint...g., 22 GM TP BID Prescribed by: RIVERA SHINE on 11/16/22 1425 Nitroglycerin (Nitroglycerin) 0.4 Mg Tab.subl, 0.4 MG SL UD PRN for CHEST PAIN, (Reported) Entered as Reported by: BLESSING LENTZ on 07/11/22 1205 Petrolatum,White (Aquaphor) 41 % Oint...g., 1 APPLIC TP 2000, (Reported) Entered as Reported by: BLESSING LENTZ on 07/11/22 1150 Polyethylene Glycol 3350 (Miralax) 17 Gram Powd.pack, 17 GM PO DAILY PRN for CONSTIPATION-2ND LINE, (Reported) Entered as Reported by: BLESSING LENTZ on 07/11/22 1200 Prednisone (Prednisone) 10 Mg Tab.ds.pk, 10 MG PO DAILY Prescribed by: PRUDENCE BECK on 07/12/22 0935 Review of Systems Review of Systems Constitutional: see HPI EENTM: see HPI Respiratory: see HPI Cardiovascular: see HPI Gastrointestinal: see HPI Genitourinary: see HPI Musculoskeletal: no symptoms reported Skin: no symptoms reported Psychiatric/Neurological: See HPI, Pre-Existing Deficit (right hemiparesis) (YONIS COBB) Past Fpzdsnr-Stovih-Mrczqp Hx Patient Social History Tobacco Use?: Yes Tobacco type used: Cigarettes Smoking Status: Current Everyday Smoker Substance use?: No Alcohol Use?: No (YONIS COBB) Immunizations Up To Date Tetanus Booster (TDap): Less than 5yrs First/Initial COVID19 Vaccinat: 11/10 Second COVID19 Vaccination Oskar: 12/10 Third COVID19 Vaccination Date: 11/10 (YONIS COBB) Seasonal Allergies Seasonal Allergies: No (YONIS COBB) Past Medical History Surgery/Hospitalization HX: cardiac stents, spinal sx, appy, bilateral carotid endartectomy, HX OF STROKE WITH RT SIDE WEAKNESS, UNABLE TO WALK-USES A W/C Surgeries: Yes (EYES;C+L SPINE;CARDIAC CATHS-STENTS X3;BILAT CAROTID ENDART;F OOT;SKIN CA) Angioplasty, Appendectomy, Cardiac, Coronary Stent, Eye Surgery, Orthopedic, Vascular Surgery Respiratory: Yes Pneumonia, Chronic Bronchitis, COPD, Emphysema Currently Using CPAP: No Currently Using BIPAP: No Cardiac: Yes (CARDIAC CATHS-STENTS X3; BILAT CAROTID ENDARTERECTOMIES;R CAROTID STENT) Coronary Artery Disease, High Cholesterol, Hypertension, Peripheral Vascular Neurological: Yes (stroke Jan 20, 2020-RIGHT SIDE PARALYSI, R sided stent placed; TIA 03/23/20) Neuropathy, Stroke Reproductive Disorders: No Sexually Transmitted Disease: No HIV/AIDS: No Genitourinary: Yes Benign Prostatic Hyperpl, Renal Failure Gastrointestinal: Yes (HEPATITIS C--S/P TREATMENT) Gastroesophageal Reflux Musculoskeletal: Yes (CHRONIC NECK AND BACK PAIN-S/P C-SPINE + L-SPINE SURGERY; L FOOT FX/ORIF) Chronic Back Pain Endocrine: No HEENT: Yes (READING GLASSES;EYE SURGERY CHILD) Loss of Vision: Bilateral Hearing Impairment: Hard of Hearing Cancer: Yes Skin Did You Recieve Any Treatments: Yes What Type of Treatment Did You: Surgical Intervention Psychosocial: Yes (SUBSTANCE ABUSE) Anxiety, Violent Behavior, Depression Integumentary: Yes (SKIN CANCER-GETS BLISTERS) Recent Skin Changes Blood Disorders: No Adverse Reaction/Blood Tranf: No (YONIS COBB) Family Medical History Cancer 19 FATHER (SKIN) 19 MOTHER Cancer of colon 19 MOTHER Kidney disease 19 FATHER (PASSED KIDNEY FAILURE) No Pertinent Family Hx SOCIAL HISTORY: -ETOH--OCCASIONAL USE, HX OF HEAVY USE -DRUGS--DAILY MARIJUANA USE, ALSO METH USE. DENIES IV DRUG USE -SMOKES 2 PPD PAST SURGICAL HISTORY: -LAST CARDIAC CATH DONE HERE IN 2013--PATENT STENTS -CARDIAC CATHS WITH STENTS X 3 -BILATERAL CAROTID ENDARTERECTOMY -RIGHT CAROTID STENT 01/21/20 AT -RIGHT EYE SURGERY CHILD -CERVICAL SPINE AND LUMBAR SPINE SURGERIES -LEFT FOOT FRACTURE/ ORIF -SKIN CANCER REMOVAL -APPENDECTOMY -STRESS TEST 01/05/[address] ALVAREZ: 1. Patient tolerated Lexiscan well, and transient episode of hypotension, responded to IV fluid 2. Diaphragmatic attenuation with no significant ischemia or infarction on SPECT images 3. Normal left ventricular size, EF 66% (YONIS COBB) Physical Exam Vital Signs Vital Signs - First Documented 12/15/22 22:56 Temp 36.6 Pulse 54 Resp 18 B/P (MAP) 116/69 (85) Pulse Ox 96 O2 Delivery Room Air (PAWEL DASH MD) Vital Signs Capillary Refill : Less Than 3 Seconds (YONIS COBB) Height, Weight, BMI Height: 6'1.00" Weight: 195lbs. 0oz. 88.376295rf; 24.00 BMI Method:Actual General Appearance: No Apparent Distress, Chronically ill HEENT: PERRL/EOMI (no accomodation), TMs Normal (Right. Left not visible due to cerumen.), Pharynx Normal Neck: Full Range of Motion, Non Tender, Supple Respiratory: Chest Non Tender, No Accessory Muscle Use, No Respiratory Distress, Rhonci (chronic COPD) Cardiovascular: Regular Rate, Rhythm, No Edema, No Murmur, Normal Peripheral Pulses (radialis and posterior tibialis pulses 2+ b/l) Gastrointestinal: Normal Bowel Sounds, No Organomegaly, Non Tender, Soft Neurologic/Psychiatric: Alert, Oriented x3, Normal Mood/Affect, meter supervisor II-XII Norm as Tested, Motor Weakness (right sided hemiparesis (chronic from stroke). Strength is 3/5 on left UE and LE) Skin: Normal Color, Warm/Dry, Other (No new lesions, bruises, erythema on head, arms, and legs.) (YONIS COBB) Eyes: Bilateral Eye PERRL HEENT: Other (small abrasion behind right ear. ttp behind right ear with mild erythema and swelling. TM occluded by cerumen) Neck: Non Tender (PAWEL DASH MD) Progress/Results/Core Measures Suspected Sepsis SIRS Temperature: Pulse: 54 Respiratory Rate: 18 Blood Pressure 116 /69 Mean: 85 (YONIS COBB) Results/Orders My Orders Orders - PAWEL DASH MD Ct Head Wo (12/15/22 23:37) (PAWEL DASH MD) Vital Signs/I&O 12/15/22 12/16/22 22:56 01:50 Temp 36.6 Pulse 54 54 Resp 18 18 B/P (MAP) 116/69 (85) 128/64 Pulse Ox 96 96 O2 Delivery Room Air Room Air (PAWEL DASH MD) Vital Signs/I&O Capillary Refill : Less Than 3 Seconds (YONIS COBB) Blood Pressure Mean: 85 Progress Note : Time: 00:45 Progress Note I have reviewed the medical student's documentation and agree. My findings and plan of care are as follows: Patient seen and evaluated by me. Eval today includes physical exam and CT head noncontrast. Pertinent exam findings - frail elderly male in NAD. Tenderness to palpation over the right posterior parietal scalp with mild abrasion behind the right ear. No hemotympanum, gloria's sign. Rest of his exam is unremarkable with no other concerning physical exam findings. No neuro deficits. ddx includes traumatic ICH, concussion/contusion Head CT read by Stat Rad - no acute findings. Patient resting comfortably throughout his stay in the ED with no deterioration in his condition. I reviewed the CT findings with him. REturn precautions provided. All questions are sought and answered and patient stable for return to [place]. (PAWEL DASH MD) Diagnostic Imaging Diagonstic Imaging: CT Comments CT head noncontrast - no acute intracranial findings (PAWEL DASH MD) Departure Impression Primary Impression: Minor head injury Qualified Codes: S09.90XA - Unspecified injury of head, initial encounter Disposition: HOME, SELF-CARE Condition: Stable Departure-Patient Inst. Decision time for Depature: 00:43 (PAWEL DASH MD) Referrals: PAVAN TYSON PA-C (PCP/Family) Primary Care Physician Patient Instructions: Minor Head Injury, Adult ED Add. Discharge Instructions: You may continue your current medications. Acetaminophen as needed for pain, 1000mg every 6 hours as needed for pain. If any new, concerning or emergent complaints develop, please return to the Emergency Department for re-evaluation. YONIS COBB Dec 15, 2022 23:21 PAWEL DASH MD Dec 16, 2022 00:46
[2022-12-16 01:50] VITALS: BP 128/64
--- NOTE | 2022-12-16 07:53 | Diagnostic Imaging Report ---
PROCEDURE: CT head without contrast. TECHNIQUE: Multiple contiguous axial images were obtained through the brain without the use of intravenous contrast. Auto Exposure Controls were utilized during the CT exam to meet ALARA standards for radiation dose reduction. INDICATION: Headache after fall. COMPARISON: CT of the head on 11/16/2022 Findings: Large area of encephalomalacia within the left frontoparietal region and right parietal lobe. Mild generalized cerebral and cerebellar volume loss. Mild nonspecific periventricular hypoattenuation, most commonly seen with chronic small vessel ischemic disease. Calcified atherosclerosis of the bilateral cavernous and paraclinoid internal carotid arteries and intracranial vertebral arteries. No intra- or extra-axial mass or fluid collection. No acute hemorrhage. The ventricles are normal in size, shape, and morphology. The mujica-white matter junction is normal. The subarachnoid cisterns are patent. The visualized paranasal sinuses are normal. The visualized portions of the orbits and globes are normal. The mastoid air cells are clear. The tobacco cutter topogram shows no lytic lesion or fracture. Impression: No acute intracranial process. Mild cerebral volume loss. Mild chronic small vessel ischemic disease. Redemonstration of encephalomalacia within the left frontoparietal region and right parietal lobe. Dictated by: Dictated on workstation # [id number]
== END 2022-12-16 01:50 | disposition home or self-care (01) ==
LOC: EDUNIT# 22:53 → ER 22:55
DX: S09.90XA Unspecified injury of head, initial encounter (principal); S00.01XA Abrasion of scalp, initial encounter; G81.91 Hemiplegia, unspecified affecting right dominant side; I10 Essential (primary) hypertension; F17.210 Nicotine dependence, cigarettes, uncomplicated; W01.198A Fall on same level from slipping, tripping and stumbling with subsequent striking against other object, initial encounter; Y92.002 Bathroom of unspecified non-institutional (private) residence as the place of occurrence of the external cause
CPT/HCPCS: 70450